=== PATIENT | male | born 1960 | race Caucasian/White ===

== ENCOUNTER 2017-11-14 11:50 | Emergency (ER) | payer MEDICARE, SELFPAY ==
[2017-11-14 11:51] VITALS: BP 162/103; PULSE 99; RESP 22; TEMP 36.8; O2SAT 97; BMI 20.2
--- NOTE | 2017-11-14 12:12 | EKG12_ITS ---
Test Reason : CHEST OTHER Blood Pressure : / mmHG Vent. Rate : 098 BPM Atrial Rate : 098 BPM P-R Int : 116 ms QRS Dur : 076 ms QT Int : 332 ms P-R-T Axes : 080 086 083 degrees QTc Int : 423 ms Somatic/motion artifact Normal sinus rhythm Confirmed by SCOTTIE CUNHA, GERARDO ([id number]), newspaper copy editor HUMBERTO CLAY ([id number]) on 11/17/2017 11:21:18 AM Referred By: Sanam Akers Confirmed By:GERARDO RUBIN MD
--- NOTE | 2017-11-14 12:13 | RAD_ITS ---
STUDY: X-RAY CHEST REASON FOR EXAM: Male, 57 years old. Dyspnea and shortness of breath. Chest pain. TECHNIQUE: Single AP portable view of the chest. COMPARISON: Comparison is made with prior study dated November 12, 2015. FINDINGS: EKG liquids are seen. Hyperinflation. Stable increased markings at the lung apices worse on the right side as well as both lower lobes suggestive of scarring. Decreased bronchovascular markings bilaterally suggestive of emphysematous change. There is no demonstrated pleural abnormality. Normal size heart. Normal mediastinum and kamilla. Normal visualized pulmonary arteries. Normal visualized aortic arch and descending thoracic aorta. Normal visualized thoracic spine. Normal visualized ribs, clavicles, and shoulders. There is no demonstrated abnormality of the visualized soft tissue structures of the upper abdomen. RAD/Chest 1 View (Portable) IMPRESSION: Hyperinflation and scarring of both lung apices and both lung bases. Electronically Signed: Jian Allen MD at 13:30 EST Tel [phone], Service support ,
[2017-11-14 12:28] VITALS: PULSE 90; RESP 18
[2017-11-14] MEDS: Ipratropium/Albuterol Sulfate 3 ML AMPUL.NEB INHALATION (12:28)
[2017-11-14] MEDS: MethylPREDNISolone 125 MG/2 ML Vial IV (12:41)
[2017-11-14] MEDS: 0.9% Normal Saline 1,000 ML 999 ML IV (12:46)
[2017-11-14 12:47] LABS: Absolute Lymphocyte Count 2.05 X10^3/ul (0.83-4.51); Absolute Neutrophil Count 3.3 X10^3/uL (2.0-7.7); Basophil# 0.03 X10^3/uL; Basophil% 0.5 % (0-1); Eosinophil# 0.36 X10^3/uL; Eosinophils% 5.7 % (0-5); Hematocrit 44.4 % (40-54); Hemoglobin 14.8 g/dl (13.0-16.5); Lymphocyte # 2.05 X10^3/ul (4.0); Lymphocyte % 32.4 % (19-41); Mean Corp Hgb Conc 33.3 g/gl (32-36); Mean Corpuscular Hgb 32.3 pg (27.0-32.0); Mean Corpuscular Volume 96.9 fL (80-94); Mean Platelet Vol. 9.4 fl (6.2-12.0); Monocyte# 0.58 X10^3/uL; Monocyte% 9.2 % (0-10); Neutrophil % 52.2 % (47-70); POSITIVE COUNT NO; POSITIVE DIFFERENTIAL NO; POSITIVE MORPHOLOGY NO; Platelet Count 251 K/mm3 (150-450); RBC Distribution Width CV 13.4 % (11.6-14.6); Red Blood Count 4.58 M/mm3 (4.6-6.2); White Blood Count 6.3 K/mm3 (4.4-11.0)
[2017-11-14] MEDS: Ondansetron 4 MG/2 ML Vial IV (12:47)
[2017-11-14 12:57] LABS: Anion Gap 7 (5-15); BUN 14 mg/dL (7-18); BUN/Creat Ratio 19.5 RATIO (10-20); Calcium,Total 9.6 mg/dL (8.5-10.1); Chloride 104 mmol/L (98-107); Creatinine, Serum 0.72 mg/dL (0.70-1.30); EST Glomerular Filtration Rate 120 mL/min (>60); Est Glom Filt Rate - Afr Amer 146 mL/min (>60); Estimated Creatinine Clearance 104.87 ml/min; Glucose 87 mg/dL (70-110); Potassium 4.5 mmol/L (3.5-5.1); Sodium Level 140 mmol/L (136-145)
[2017-11-14 13:54] VITALS: BP 132/86; PULSE 84; RESP 14; O2SAT 96
--- NOTE | 2017-11-14 14:03 | ED.VISSUMM ---
- ER Visit Summary Date of Service: 11/14/17 Chief Complaint: Chest pain and shortness of breath History of Present Illness: The patient is a [address] Vitale and Dr. Loja. He reports that it is 6 minute walk test on November 10. During this he developed left-sided chest pain is been constant since that time. It is a sharp, stabbing pain that is 10 out of 10 severity. Is worsened by movement of his torso or breathing. It is relieved by pushing on it and [place]. Reports that he has had moderate shortness of breath. He denies any fever, chills, or cough. Physical Examination: Vitals: Stable. Afebrile. General: Well-nourished and well-developed. Head: Normocephalic atraumatic. Neck: Supple, no lymphadenopathy. No JVD. Nontender. Cardiovascular: Regular rate and rhythm. No murmurs. Respiratory: No respiratory distress. Severely decreased air movement. Moderate tenderness palpation over the intercostal muscles on the left. Abdominal: Soft, nontender, nondistended, normal bowel sounds. No guarding, rebound, or peritoneal signs. Back: Nontender. Extremities: Nontender, no edema. Skin: Normal color, no rash. Neurologic: Alert and oriented ?3. Cranial nerves II through XII are intact. Normal strength and sensation. Psych: Normal affect. Test Results: EKG is sinus at 98 with artifact and nonspecific ST changes. Troponin is negative. Chem-7 is normal. CBC is marked for eosinophils of 6. Chest x-ray shows chronic changes. Emergency Department Course and Treatment: Patient was treated albuterol Atrovent aerosols. He was given a dose of morphine and Zofran IV. He is resting comfortably. Treatment Plan: It was discussed with Dr. Vitale. He will be placed on Motrin 400 mg p.o. every 6 hours and instructed to follow-up in 1 week if not improving. Return to the emergency department for any worsening symptoms. Disposition: To home in improved and stable condition. Impression: 1. Intercostal muscle strain. 2. COPD. This note was generated with bencheeation software. It may contain incorrect words, spelling, and punctuation that were not noted in review of the chart prior to signing ED Disposition - Plan for ED Patient: Chief Complaint: Chest Other Instructions: ED Strain Chest Wall Prescriptions: Ibuprofen 400 mg PO 4X/DAY #30 tablet Referrals: Jerman Vitale MD [STAFF PHYSICIAN] - 1 Week if not improving
--- NOTE | 2017-11-14 14:07 | ED.DCSUM_ITS ---
- ER Visit Summary Date of Service: 11/14/17 Chief Complaint: Chest pain and shortness of breath History of Present Illness: The patient is a [address] Vitale and Dr. Loja. He reports that it is 6 minute walk test on November 10. During this he developed left-sided chest pain is been constant since that time. It is a sharp , stabbing pain that is 10 out of 10 severity. Is worsened by movement of his torso or breathing. It is relieved by pushing on it and [place]. Reports that he has had moderate shortness of breath. He denies any fever, chills, or cough. Physical Examination: Vitals: Stable. Afebrile. General: Well-nourished and well-developed. Head: Normocephalic atraumatic. Neck: Supple, no lymphadenopathy. No JVD. Nontender. Cardiovascular: Regular rate and rhythm. No murmurs. Respiratory: No respiratory distress. Severely decreased air movement. Moderate tenderness palpation over the intercostal muscles on the left. Abdominal: Soft, nontender, nondistended, normal bowel sounds. No guarding, rebound, or peritoneal signs. Back: Nontender. Extremities: Nontender, no edema. Skin: Normal color, no rash. Neurologic: Alert and oriented ?3. Cranial nerves II through XII are intact. Normal strength and sensation. Psych: Normal affect. Test Results: EKG is sinus at 98 with artifact and nonspecific ST changes. Troponin is negative. Chem-7 is normal. CBC is marked for eosinophils of 6. Chest x-ray shows chronic changes. Emergency Department Course and Treatment: Patient was treated albuterol Atrovent aerosols. He was given a dose of morphine and Zofran IV. He is resting comfortably. Treatment Plan: It was discussed with Dr. Vitale. He will be placed on Motrin 400 mg p.o. every 6 hours and instructed to follow-up in 1 week if not improving. Return to the emergency department for any worsening symptoms. Disposition: To home in improved and stable condition. Impression: 1. Intercostal muscle strain. 2. COPD. This note was generated with OROSation software. It may contain incorrect words, spelling, and punctuation that were not noted in review of the chart prior to signing ED Disposition - Plan for ED Patient: Chief Complaint: Chest Other Instructions: ED Strain Chest Wall Prescriptions: Ibuprofen 400 mg PO 4X/DAY #30 tablet Referrals: Jreman Vitale MD [STAFF PHYSICIAN] - 1 Week if not improving
[2017-11-14 14:36] VITALS: BP 130/88; PULSE 74; RESP 22; TEMP 36.6; O2SAT 99
== END 2017-11-14 14:36 | disposition home or self-care (01) ==
LOC: ED 12:40
PROVIDERS: Emergency Provider Emergency Medicine; Family Provider Family Medicine; PCP Family Medicine
DX: S29.011A Strain of muscle and tendon of front wall of thorax, initial encounter (principal); J44.9 Chronic obstructive pulmonary disease, unspecified; Z87.442 Personal history of urinary calculi; Z87.891 Personal history of nicotine dependence; X58.XXXA Exposure to other specified factors, initial encounter; Y93.9 Activity, unspecified; Y92.9 Unspecified place or not applicable; Y99.9 Unspecified external cause status
CPT/HCPCS: 71045; 80048; 84484; 85025; 93005; 94640; 96361; 96374; 96375; 99284; J7050; J2405

== ENCOUNTER → 2017-12-01 09:53 | Outpatient (CLI) | payer MEDICARE, SELFPAY ==
--- NOTE | 2017-12-02 11:40 | PFT ---
INTRODUCTION: The patient is a 57-year-old male currently under the care of Dr. Vitale that presents for pulmonary function testing secondary to a diagnosis of COPD. Respiratory therapy reports good patient effort and reports no other concerns. Bronchodilators were used during testing. INTERPRETATION: Forced expiration spirometry demonstrates the presence of a very severe large airways obstructive ventilatory defect. There was no significant response to aerosolized bronchodilators, based upon strict ATS criteria. Spirograms are of fair quality and do not plateau indicating slow emptying of the lungs. The respiratory flow volume loop reveals decreased expiratory flow rates at all lung volumes consistent with airways obstruction. Body plethysmography was performed and reveals an elevated TLC and RV, indicative of underlying hyperinflation and air-trapping. Diffusing capacity by single breath CO is severely reduced at 31% of predicted. When compared to previous pulmonary function studies dated March 2017 there is been an 11% decrease in FEV1 along with a 22% decrease in DLCO. IMPRESSION: These pulmonary function studies demonstrate the presence of an irreversible very severe large airways obstructive ventilatory defect with associated hyperinflation, air trapping and symmetric reduction in diffusing capacity. There has been worsening in the patient's pulmonary function testing since last completed in March 2017, as noted above.
== END ==
PROVIDERS: Family Provider Family Medicine; PCP Family Medicine; Visit Provider Nurse Practitioner Acute Care
DX: J44.9 Chronic obstructive pulmonary disease, unspecified (principal); J96.11 Chronic respiratory failure with hypoxia; J96.12 Chronic respiratory failure with hypercapnia
CPT/HCPCS: 94060; 94726; 94729

== ENCOUNTER → 2018-05-16 11:36 | Outpatient (CLI) | payer MEDICARE, SELFPAY ==
[2018-05-16 15:53] LABS: PSA,Total - Annual Screen 1.24 ng/mL (0.00-4.00)
== END ==
PROVIDERS: Family Provider Family Medicine; PCP Family Medicine; Visit Provider Family Medicine
DX: Z12.5 Encounter for screening for malignant neoplasm of prostate (principal)
CPT/HCPCS: 36415; 84153; G0103

== ENCOUNTER 2018-06-16 09:30 | Outpatient (RCR) | payer MEDICARE, SELFPAY ==
--- NOTE | 2018-05-23 10:27 | PR.DATECOV_ITS ---
Dates of Coverage Times for Dates Of Coverage; All dates of coverage are for physician supervision /medical review coordinator for during the times of 08:00 AM through 4:30 PM. Effective Jun 17, 2013 our hours will be changing to 8:00 to 4:30 on Tuesday, Tuesday and Tuesday. First Date of the Month: 05/23/18 Last Date of the Month: 06/16/18
--- NOTE | 2018-05-23 10:28 | PCM.PR.HP ---
History of Present Illness Arrival date:: 05/23/18 Arrival time:: 10:28 Date of Referral:: 05/09/18 Date of Evaluation: 05/23/18 Referring Physician: DR. TATO RANDLE [facility] Medicine-Lung Transplant Primary Diagnosis: very severe COPD History of Present Illness: Patient is a 58 yr old male patient of Dr. Jerman Vitale who was referred to the [facility] in [place] for evaluation for possible lung transplant. The patient is presently int he process of all necessary testing to be placed on the list. He is coming back to pulmonary rehabilitation as part of the pre-transplant protocol. mMRC Breathless Scale: When is the patient short of breath? Y/N Grade: Description of Breathlessness: 0 I only get breathless with strenuous exercise. 1 I get short of breath when hurrying on level ground or walking up a slight hill. 2 On level ground, I walk slower than people of the same age because of breathless, or have to stop for breath when walking at my own pace. 3 I stop for breath after walking 100 yards or after a few minutes on level ground. 4 I am too breathless to leave the house or I am breathless when dressing. Respiratory Problems: Yes: Able to Speak in Full Sentences, Anxiety, Dyspnea with Activity No: Limited Range of Motion, Fatigue, Dizziness, Ankle Swelling, Dyspnea at Rest, Dyspnea Lying Down Flat Home Medications: Home Medications Ensure Complete 120 ml PO 4X/DAY #120 liquid 08/25/15 Nebulizer [Aeroneb Go Nebulizer] 1 ea MC Q4H PRN PRN #1 ea 08/25/15 ipratropium-albuterol 0.5 mg-3 mg(2.5 mg base)/3 mL nebulization soln 3 ml INHALATION Q6H PRN ml 10/27/17 Ibuprofen 400 mg PO 4X/DAY #30 tab 11/14/17 lecithin, soy 1,200 mg capsule 1,200 mg PO QDAY 02/06/18 multivitamin with iron tablet 1 tab PO QDAY 02/06/18 Allergies/Adverse Reactions: Allergies fluticasone furoate [From Breo Ellipta] Allergy (Severe, Verified 05/23/18 08:45) Other made patient breathe hard and high pulse vilanterol [From Breo Ellipta] Allergy (Severe, Verified 05/23/18 08:45) Other made patient breathe hard and high pulse codeine Allergy (Mild, Verified 05/23/18 08:45) Hives - Secretions Thick:: No Thin:: No Cough:: No Hx of Sleep Apnea: No Do you snore loudly (louder than talking or can be heard through closed doors)?: No Do you often feel tired/ fatigued/ sleepy during daytime?: Yes - if over exertion from days activity Has anyone observed you stop breathing during sleep?: No History of Hypertension (for STOP score): Yes - Was previously tested under the care of Dr. Vitale and everything was fine. STOP Results: Positive Medical Utilization Do you use a peak flow meter at home?: No Do you use a spacer device with your inhalers?: Yes Number of hospital visits in the last year?: 0 Number of emergency room visits in the last year?: 1 - pulled muscle or 04/2018 Do you see your physician on a regular schedule?: Yes How often?: Dr. Vitale 3mo, PCP Dr. Loja as needed Advanced Directives - Advanced Directives Power of Slide Machine Tender: Yes Living Will: Yes Advance Directives Information Provided: No Advance Directives on File: Yes DNR Order?:: No - MOLST See MOLST form: No Past Medical History Medical History: Past Medical History (Last Reviewed 05/23/18 @ 09:15 by Kristofer Frost MD) COPD (chronic obstructive pulmonary disease) (Chronic) J44.9 Nephrolithiasis (Chronic) Chronic respiratory failure with hypoxia and hypercapnia (Chronic) J96.11, J96.12 Malnutrition of moderate degree (Chronic) E44.0 Burning sensation of feet R20.8 COPD with acute exacerbation J44.1 Herpes zoster B02.9 Hypersomnia G47.10 Hypoxia R09.02 Left shoulder pain M25.512 Migraine G43.909 Phlebitis of superficial vein of lower extremity I80.00 Anxiety F41.9 Cachexia R64 Emphysema of lung J43.9 Lung nodule R91.1 left, 7 mm, 14 Oxygen dependent Z99.81 Stage 4 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 J44.9 shattered left wrist 1984 Surgical History: Past Surgical History (Last Reviewed 05/23/18 @ 09:15 by Kristofer Frost MD) S/P rotator cuff repair Z98.890 left Status post wrist surgery Z98.890 left Family History: Family History (Last Reviewed 05/23/18 @ 09:15 by Kristofer Frost MD) Mother Heart disease Lung disease Sister Lung disease Brother Lung disease Father CAD (coronary artery disease) - Current/ Previous Services Pulmonary Rehab:: Yes - Comments Comments: Patient completed 36 sessions of pulmonary rehabilitation back in 2016 without incident. The patient is being referred back to pulmonary rehabilitation today due to being evaluated for lung transplant at the [facility] [place]. Social History - Smoking History Smoking Status: Former smoker Years Smokin Packs Smoked per Day: 1 Hx Tobacco Use: Yes Hx Smoking Exposure: No - Alcohol Use Alcohol Usage: No - Substance Abuse Hx Substance Use: No - Occupation Occupation (List type of work in comments):: Retired - Retired/Disability - Hobbies, Recreation, Social Activities Hobbies: Exercise - exercise at home on treadmill and the [employer] [place] water aer[employer]., Other - not really much these days. Recreational Activities: I am able to engage in all my recreational activities Risk Factor Assessment - Vital Signs Temperature: 98.7 F Pulse Rate: 95 Respiratory Rate: 20 Pulse Ox: 96 Nailbeds:: pink - Diabetes Nutrition Referral for Diabetes: No - Obesity Height: 5 ft 11 in Weight:: 155 lb 12.8 oz Weight in Pounds: 155.8 lbs Weight Source: Standing Scale Body Mass Index (BMI): 21.7 Nutritional Referral for Obesity: No - Physical Activity Physical Inactivity: Reg Exercise 30 min/day - Risk Stratification Risk Guidelines: Lowest Risk: Risk Factor for Smoking, Risk Factor for Dyslipidemia, Risk Factor for Diabetes, Risk Factor for Obesity, Risk Factor for Hypertension, Risk Factor for Sedentary Lifestyle, Risk Factor for Depression - For Smoking Smoking Risk Guidelines: Smoking Low Risk: None or quit greater than 6 months ago. Smoking Moderate Risk: Smoker or quit 6 months or less ago. Smoking High Risk: Smoker - For Dyslipidemia Dyslipidemia Risk Guidelines: Low Risk: Moderate Risk: High Risk: 15-25% fat 25.1-29% fat >/= 30% fat. <7% sat fat 7-9% sat fat >9% sat fat. <150 mg chol 150-299 mg chol >/= 300 mg chol. LDL <100 LDL 100-129 LDL >/= 130. Chol/HDL ratio <5.0 Chol/HDL ratio 5.0-6.0 Chol/HDL ratio >6.0. Triglycerides <100 Triglycerides 100-149 Triglycerides >/= 150 - For Diabetes Mellitus Diabetes Risk Guidelines: Diabetes Low Risk: HgA1c <6.5% and/or FBG <120. Diabetes Moderate Risk: HgA1c 6.6-7.9% and/or FBG 120-180. Diabetes High Risk: HgA1c >/= 8% and/or FBG >180 - For Obesity/Overweight Obesity/Overweight Risk Guidelines: Obesity Low Risk: BMI <25.0. Obesity Moderate Risk: BMI 25-29.9. Obesity High Risk: BMI >/= 30.0 - For Hypertension Hypertension Risk Guidelines: Hypertension Low Risk: Systolic <120 and Diastolic <80. Hypertension Moderate Risk: Systolic 120-139 and Diastolic 80-89. Hypertension High Risk: Systolic >/= 140 and Diastolic >/= 90 - For Sedentary Lifestyle Sedentary Lifestyle Risk Guidelines: Sedentary Lifestyle Low Risk: >/= 1,500 kcal/week. Sedentary Lifestyle Moderate Risk: 700-1,499 kcal/week. Sedentary Lifestyle High Risk: < 700 kcal/week - For Depression Depression Risk Guidelines: Depression Low Risk: Not clinically depressed. Depression Moderate Risk: Mildly depressed. Depression High Risk: Clinically depressed Motivation - Motivation to Participate On a scale of 1 to 10, how prepared are you to commit to attending program?: 10 What do you see as barriers to successfully being able to complete the program?: no barrier What do you see as the benefits of succesfully completing the program? In other words, what do you hope to get out of participating in the program?: move myself forward, improve myself, and get the lung transplant done Are there issues you are dealing with that will interfere with completing the program?: none Do you have a spouse or signficant other, family or friends who will help support you to complete the program?: yes
--- NOTE | 2018-05-23 10:32 | PR.HP_ITS ---
History of Present Illness Arrival date:: 05/23/18 Arrival time:: 10:28 Date of Referral:: 05/09/18 Date of Evaluation: 05/23/18 Referring Physician: DR. TATO RANDLE [facility] -Lung Transplant Primary Diagnosis: very severe COPD History of Present Illness: Patient is a 58 yr old male patient of Dr. Jerman Vitale who was referred to the [facility] in [place] for evaluation for possible lung transplant. The patient is presently int he process of all necessary testing to be placed on the list. He is coming back to pulmonary rehabilitation as part of the pre-transplant protocol. mMRC Breathless Scale: When is the patient short of breath? Y/N Grade: Description of Breathlessness: 0 I only get breathless with strenuous exercise. 1 I get short of breath when hurrying on level ground or walking up a slight hill. 2 On level ground, I walk slower than people of the same age because of breathless, or have to stop for breath when walking at my own pace. 3 I stop for breath after walking 100 yards or after a few minutes on level ground. 4 I am too breathless to leave the house or I am breathless when dressing. Respiratory Problems: Yes: Able to Speak in Full Sentences, Anxiety, Dyspnea with Activity No: Limited Range of Motion, Fatigue, Dizziness, Ankle Swelling, Dyspnea at Rest, Dyspnea Lying Down Flat Home Medications: Home Medications Ensure Complete 120 ml PO 4X/DAY #120 liquid 08/25/15 Nebulizer [Aeroneb Go Nebulizer] 1 ea MC Q4H PRN PRN #1 ea 08/25/15 ipratropium-albuterol 0.5 mg-3 mg(2.5 mg base)/3 mL nebulization soln 3 ml INHALATION Q6H PRN ml 10/27/17 Ibuprofen 400 mg PO 4X/DAY #30 tab 11/14/17 lecithin, soy 1,200 mg capsule 1,200 mg PO QDAY 02/06/18 multivitamin with iron tablet 1 tab PO QDAY 02/06/18 Allergies/Adverse Reactions: Allergies fluticasone furoate [From Breo Ellipta] Allergy (Severe, Verified 05/23/18 08:45 ) Other made patient breathe hard and high pulse vilanterol [From Breo Ellipta] Allergy (Severe, Verified 05/23/18 08:45) Other made patient breathe hard and high pulse codeine Allergy (Mild, Verified 05/23/18 08:45) Hives - Secretions Thick:: No Thin:: No Cough:: No Hx of Sleep Apnea: No Do you snore loudly (louder than talking or can be heard through closed doors)? : No Do you often feel tired/ fatigued/ sleepy during daytime?: Yes - if over exertion from days activity Has anyone observed you stop breathing during sleep?: No History of Hypertension (for STOP score): Yes - Was previously tested under the care of Dr. Vitale and everything was fine. STOP Results: Positive Medical Utilization Do you use a peak flow meter at home?: No Do you use a spacer device with your inhalers?: Yes Number of hospital visits in the last year?: 0 Number of emergency room visits in the last year?: 1 - pulled muscle or 2017 Do you see your physician on a regular schedule?: Yes How often?: Dr. Vitale 3mo, PCP Dr. Loja as needed Advanced Directives - Advanced Directives Power of Pigment Grinder: Yes Living Will: Yes Advance Directives Information Provided: No Advance Directives on File: Yes DNR Order?:: No - MOLST See MOLST form: No Past Medical History Medical History: Past Medical History (Last Reviewed 05/23/18 @ 09:15 by Kristofer Frost MD) COPD (chronic obstructive pulmonary disease) (Chronic) J44.9 Nephrolithiasis (Chronic) Chronic respiratory failure with hypoxia and hypercapnia (Chronic) J96.11, J96.12 Malnutrition of moderate degree (Chronic) E44.0 Burning sensation of feet R20.8 COPD with acute exacerbation J44.1 Herpes zoster B02.9 Hypersomnia G47.10 Hypoxia R09.02 Left shoulder pain M25.512 Migraine G43.909 Phlebitis of superficial vein of lower extremity I80.00 Anxiety F41.9 Cachexia R64 Emphysema of lung J43.9 Lung nodule R91.1 left, 7 mm, 14 Oxygen dependent Z99.81 Stage 4 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 J44.9 shattered left wrist 1984 Surgical History: Past Surgical History (Last Reviewed 05/23/18 @ 09:15 by Kristofer Frost MD) S/P rotator cuff repair Z98.890 left Status post wrist surgery Z98.890 left Family History: Family History (Last Reviewed 05/23/18 @ 09:15 by Kristofer Frost MD) Mother Heart disease Lung disease Sister Lung disease Brother Lung disease Father CAD (coronary artery disease) - Current/ Previous Services Pulmonary Rehab:: Yes - Comments Comments: Patient completed 36 sessions of pulmonary rehabilitation back in 2016 without incident. The patient is being referred back to pulmonary rehabilitation today due to being evaluated for lung transplant at the [facility] [place]. Social History - Smoking History Smoking Status: Former smoker Years Smokin Packs Smoked per Day: 1 Hx Tobacco Use: Yes Hx Smoking Exposure: No - Alcohol Use Alcohol Usage: No - Substance Abuse Hx Substance Use: No - Occupation Occupation (List type of work in comments):: Retired - Retired/Disability - Hobbies, Recreation, Social Activities Hobbies: Exercise - exercise at home on treadmill and the [employer] [place] water aer[employer]ics., Other - not really much these days. Recreational Activities: I am able to engage in all my recreational activities Risk Factor Assessment - Vital Signs Temperature: 98.7 F Pulse Rate: 95 Respiratory Rate: 20 Pulse Ox: 96 Nailbeds:: pink - Diabetes Nutrition Referral for Diabetes: No - Obesity Height: 5 ft 11 in Weight:: 155 lb 12.8 oz Weight in Pounds: 155.8 lbs Weight Source: Standing Scale Body Mass Index (BMI): 21.7 Nutritional Referral for Obesity: No - Physical Activity Physical Inactivity: Reg Exercise 30 min/day - Risk Stratification Risk Guidelines: Lowest Risk: Risk Factor for Smoking, Risk Factor for Dyslipidemia, Risk Factor for Diabetes, Risk Factor for Obesity, Risk Factor for Hypertension, Risk Factor for Sedentary Lifestyle, Risk Factor for Depression - For Smoking Smoking Risk Guidelines: Smoking Low Risk: None or quit greater than 6 months ago. Smoking Moderate Risk: Smoker or quit 6 months or less ago. Smoking High Risk: Smoker - For Dyslipidemia Dyslipidemia Risk Guidelines: Low Risk: Moderate Risk: High Risk: 15-25% fat 25.1-29% fat >/= 30% fat. <7% sat fat 7-9% sat fat >9% sat fat. <150 mg chol 150-299 mg chol >/= 300 mg chol. LDL <100 LDL 100-129 LDL >/= 130. Chol/HDL ratio <5.0 Chol/HDL ratio 5.0-6.0 Chol/HDL ratio >6.0. Triglycerides <100 Triglycerides 100-149 Triglycerides >/= 150 - For Diabetes Mellitus Diabetes Risk Guidelines: Diabetes Low Risk: HgA1c <6.5% and/or FBG <120. Diabetes Moderate Risk: HgA1c 6.6-7.9% and/or FBG 120-180. Diabetes High Risk: HgA1c >/= 8% and/or FBG >180 - For Obesity/Overweight Obesity/Overweight Risk Guidelines: Obesity Low Risk: BMI <25.0. Obesity Moderate Risk: BMI 25-29.9. Obesity High Risk: BMI >/= 30.0 - For Hypertension Hypertension Risk Guidelines: Hypertension Low Risk: Systolic <120 and Diastolic <80. Hypertension Moderate Risk: Systolic 120-139 and Diastolic 80-89. Hypertension High Risk: Systolic >/= 140 and Diastolic >/= 90 - For Sedentary Lifestyle Sedentary Lifestyle Risk Guidelines: Sedentary Lifestyle Low Risk: >/= 1 ,500 kcal/week. Sedentary Lifestyle Moderate Risk: 700-1,499 kcal/week. Sedentary Lifestyle High Risk: < 700 kcal/week - For Depression Depression Risk Guidelines: Depression Low Risk: Not clinically depressed. Depression Moderate Risk: Mildly depressed. Depression High Risk: Clinically depressed Motivation - Motivation to Participate On a scale of 1 to 10, how prepared are you to commit to attending program?: 10 What do you see as barriers to successfully being able to complete the program? : no barrier What do you see as the benefits of succesfully completing the program? In other words, what do you hope to get out of participating in the program?: move myself forward, improve myself, and get the lung transplant done Are there issues you are dealing with that will interfere with completing the program?: none Do you have a spouse or signficant other, family or friends who will help support you to complete the program?: yes
--- NOTE | 2018-05-23 10:35 | PR.ITP_ITS ---
General Information - General Information Admitting Diagnosis: Very Severe COPD Stage IV Gold Classification:: GOLD 4: Very Severe Oxygen: Oxygen 2 liters 3 to 4 liters when walking/exertion - PFT FEV1:: 0.72 FVC:: 2.70 FEV1/FVC%:: 27 - Education/Goals Barriers to Learning: Hearing Impairment, Vision Impairment Individual Counseling: Initial Assessment: Dyspnea control techniques at rest, activity, and ADLs, ADL management and pacing, Nutrition & weight management - malnutrition Patient Goals: Breathe better: Initial Assessment, Increase endurance/stamina: Initial Assessment, Return to recreation/hobby: Initial Assessment, Control panic/anxiety: Initial Assessment, Improve diet and nutrition: Initial Assessment, Symptom management: Initial Assessment, Improve weight: Initial Assessment Exercise - Initial Assessment - Visit Date of Eval: 05/23/18 - Established ITP; starting - Problem/Goals Problems: Knowledge deficit exercise guidelines, Knowledge deficit exercise safety - Exercise Prescription Mode:: Treadmill, Rower, Airdyne Frequency (x/week): 3 Duration:: 30 MET LEVEL:: 2.5 HR (bpm):: 123 - 115-123 Exercise Progression: as tolerated per protocol. - Plan Plan and Plan to Review:: Benefits of exercise, Core components of exercise, How to measure dyspnea level, How to monitor dyspnea level, Exercise intensity, Exercise safety guideline, Home exercise guidelines, Ozzy: 3-/- Disease Management - Initial - Problems/Goals-Hypoxemia Hypoxemia Problems:: Hypoxemia Hypoxemia Goals:: Hypoxemia managed, Port system, Using O2 as Rx's safely - Problems/Goals-Medications Medication Goals: Correct technique/timing & care of MDI, DPI, nebulizer, and spacer. - Problems/Goals-Bronchial Hygiene Bronchial Hygiene Goals:: Pt demonstrates effective cough, effective secretion clearance., Pt describes signs and symptoms of infection. - Initial Assessment SpO2:: 98 FiO2:: 0 Port O2:: 2 Does pt report taking home meds as prescribed?: Yes Medications: Yes MDI, Yes DPI, Yes NEB, Yes Spacer Patient Reports:: No cough - Plans Hypoxemia Plan:: Monitor SpO2 rest & with exercise, Train appropriate O2 use at rest, Train appropriate O2 use with exercise, Train O2 safety & systems Reviewed prescribed medications:: Purpose, Schedule, Side effects, Importance of compliance Instruct correct technique/timing & care:: MDI, DPI, Nebulizer, Return demo use of inhaler Bronchial Hygiene Plan: Controlled cough, Vibratory PEP device, Hydration, Hand hygiene, Evaluate sputum, When to call MD, Signs/symptoms to report:, Influenza/ Pneumovax vaccines Psychosocial - Initial Assess - Problems/Goals Problems: Impaired Q.O.L. Psychosocial Goals: Improved psychosocial coping skills., Verbalizes coping strategies., Improved Q.O.L. - Psychosocial Test Depression:: Impaired QOL - Plan Instructions given regarding:: Benefits of exercise, Relaxation techniques, Training in coping strategies Tobacco - Initial Assessment - Program Goals Tobacco Program Goals: Complete smoking cessation. Attend education classes. Improve Knowledge Test score - Stage of Change Stages of Change:: Action - Learning Barriers Learning Barriers: Ready to Learn - Family Support Do you have family support?: Yes - Tobacco Use Tobacco Use: Non-smoker How long ago did you quit using tobacco products?: Greater than or equal to 6 months ago Do you use smokeless tobacco?: No - Intervention Smoking Cessation Referral:: No Individual Education/Counseling:: No Education Schedule Given:: Yes - Education Gave Education Materials For:: Pulmonary Disease, Risk Factors, Breathing Techniques, Medical Compliance, Pulmonary A&P, Exacerbation Signs & Symptoms, Stress & Relaxation Nutrition/Wt Mgmt - Initial - Problems/Goals Problems: Underweight Goals: BMI 21-25 - Weight Management Knowledge Deficit Management of:: Underweight, Lack of vitamin D/Ca++ supplement Admit Height:: 5 ft 11 in Admit Weight:: 155 lb 12.8 oz Admit BMI:: 21.7 - Diabetes Diabetes:: No Insulin: No Do you monitor your blood sugar at home?: No - Intervention Referral to dietitian:: No Referral to Diabetic Clinic:: No Will attend diet classes:: Yes - Plan Nutrition Plan: Yes Weight control education class: Patient Health Questionnaire Initial Assessment 1. Little interest or pleasure in doing things: More than half the days 2. Feeling down, depressed, or hopeless: Not at all 3. Trouble falling or staying asleep, or sleeping too much: Not at all 4. Feeling tired or having little energy: More than half the days 5. Poor appetite or overeating: Not at all 6. Feeling bad about yourself -- or that you are a failure or have let yourself or your family down: Not at all 7. Trouble concentrating on things, such as reading the newspaper or watching television: Not at all 8. Moving or speaking so slowly that other people could have noticed. Or the opposite - being so fidgety or restless that you have been moving around a lot more than usual: Not at all 9. Thoughts that you would be better off , or of hurting yourself in some way: Not at all How difficult have these problems made it for you to do your work, take care of things at home, or get along with other people?: Not difficult at all Total Score: 4 COPD Knowledge Test Initial COPD is a lung disease that:: Makes it hard to breathe & gets worse over time In the [place] the term COPD describes 2 main lung conditions:: Emphysema & chronic bronchitis The most common lung irritant that causes COPD is:: Cigarette smoke Common signs and symptoms of COPD include:: An ongoing cough/cough that produces a large amount of mucus, & SOB If you have COPD, what steps can you take?: All of the above Swelling of the ankles is common in COPD:: False Fatigue [tiredness] is common in COPD:: True Wheezing is common in COPD:: True Crushing chest pain is common in COPD:: False Rapid weight loss is common in COPD:: True Breathlessness is a normal response to exercise: False Exercise should be avoided if it makes you short of breath: False All bronchodilators act within 10 minutes: False A spacer device increases the medication to the lungs: True Annual flu vaccine is recommended for pts w/lung disease: True COPD Knowledge Test Total Score:: 13 COPD Assessment Test [CAT] - Questions Never cough = 0, Cough all the time = 5: 2 No phlegm = 0, Chest full of phlegm = 5: 2 No chest tightness = 0, Chest very tight = 5: 2 No breathless w/exertion = 0, Very breathless w/exertion = 5: 5 No limitations w/activity = 0, Very limited w/activity = 5: 3 Confident leaving home = 0, Not at all confident = 5: 2 Sleep soundly = 0, Don't sleep soundly = 5: 2 Lots of energy = 0, No energy at all = 5: 3 Total CAT score:: 21 Self-Efficacy Initial Assessment We would like to know how confident you are in doing certain activities. Please select your confidence level for:: Select your confidence level for the following using the scale 1-10 where 1 is not at all confident and 10 is totally confident. Your score is the average of all 6 responses. Fatigue: How confident are you that you can keep the fatigue caused by your disease from interfering with the things you want to do? Select Number: 5 Physical Discomfort or Pain: How confident are you that you can keep the physical discomfort or pain of your disease from interfering with the things you want to do? Select Number: 6 Emotional Distress: How confident are you that you can keep the emotional distress caused by your disease from interfering with the things you want to do? Select Number: 5 Other Symptoms or Health Problems: How confident are you that you can keep other symptoms or health problems from interfering with the things you want to do? Select Number: 7 Different Tasks and Activities: How confident are you that you can do the different tasks and activities needed to manage your health condition so as to reduce your need to see a doctor? Select Number: 5 Medication: How confident are you that you can do things other than just taking medication to reduce how much your illness affects your everyday life? Select Number: 7 Total Score:: 5 Nutrition Survey - Nutrition Survey Instructions Scoring Instructions: Scoring is as follows: Yes = 1 points. No = 0 point. Patient score that is >/=12 is considered to be at potential nutritional risk and could benefit from a referral to a registered dietitian. - Nutrition Survey Initial Have you lost >10 lbs over the past 2 months without trying?: No Are you following a special diet at home for diabetes, low fat, or low salt?: No Are you interested in meeting with a dietitian for help understanding your diet? : No Do you eat less than 3 meals a day?: No Do you eat fatty meats (ocampo, sausage, ribs, etc), fried foods, desserts, large amounts of salad dressings, margarine, butter, or cheese most days?: No Do you have food allergies? [Enter types in comment field]: No Do you eat in restaurants more than 3 times a week?: No Do you season food with salt, seasoning salt, or garlic salt?: Yes Do you used canned, boxed, frozen meals, or soups, seasoning packets?: Yes Total Score:: 2
[2018-05-23 10:51] VITALS: PULSE 95; RESP 20; TEMP 37.1; O2SAT 96; BMI 21.7
[2018-05-23 10:59] VITALS: O2SAT 98; BMI 21.7
--- NOTE | 2018-06-09 08:30 | PR.DATECOV_ITS ---
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 Effective Jun 17, 2013 our hours will be changing to 8:00 to 4:30 on Tuesday, Tuesday and Tuesday. First Date of the Month: 06/17/18 Last Date of the Month: 07/16/18
--- NOTE | 2018-06-09 08:30 | PCM.PR.TP ---
Exercise - 30-Day Assessment - Exercise Prescription Mode:: Treadmill, Airdyne, NuStep, Arm Ergometer Frequency (x/week): 3 Duration:: 35 Aerobic Exercise [30-60 min 3-7x/week]:: Progressing Target heart rate: 115-123 Ozzy-13 MET Level:: 2.5 - Home Exercise Home Exercise:: Yes Frequency:: daily Time (minutes):: 30 - walking Disease Management - 30-Day - Hypoxemia Reassessment: Demonstrates knowledge of O2 Rx at rest, Demonstrates knowledge of O2 Rx with exercise, Using O2 as prescribed, Has home O2 as prescribed, Uses port O2 as prescribed - Medications Medication list reviewed:: Yes Taking medications 100% of the time:: Met - Bronchial Hygiene Bronchial Hygiene Plan: Yes Pt demo correct for device - returned demnostration acapella, Yes Pt demo correct for evalute sputum Psychosocial - 30-Day - Assessment Reassessment: Management of stress & depression, Practicing interventions, Demonstrate coping strategies Tobacco - 30-Day Assessment - Program Goals Tobacco Program Goals: Complete smoking cessation. Attend education classes. Improve Knowledge Test score - Stage of Change Stages of Change:: Action - Learning Barriers Learning Barriers: Participates in education - Family Support Do you have family support?: Yes - Tobacco Use Tobacco Use: Non-smoker - Intervention Smoking Cessation Referral:: No Individual Education/Counseling:: No Education Schedule Given:: Yes - Education Gave Education Materials For:: Pulmonary Disease, Risk Factors, Breathing Techniques, Medical Compliance, Pulmonary A&P, Exacerbation Signs & Symptoms, Stress & Relaxation Nutrition/Wt Mgmt - 30-Day - Weight Management Weight:: 151 lb 8 oz Patient Health Questionnaire 30-Day Re-eval Assessment 1. Little interest or pleasure in doing things: Not at all 2. Feeling down, depressed, or hopeless: Several days 3. Trouble falling or staying asleep, or sleeping too much: Several days 4. Feeling tired or having little energy: Several days 5. Poor appetite or overeating: Not at all 6. Feeling bad about yourself -- or that you are a failure or have let yourself or your family down: Not at all 7. Trouble concentrating on things, such as reading the newspaper or watching television: Not at all 8. Moving or speaking so slowly that other people could have noticed. Or the opposite - being so fidgety or restless that you have been moving around a lot more than usual: Not at all 9. Thoughts that you would be better off , or of hurting yourself in some way: Not at all How difficult have these problems made it for you to do your work, take care of things at home, or get along with other people?: Not difficult at all Total Score: 3 COPD Assessment Test [CAT] - Questions Never cough = 0, Cough all the time = 5: 3 No phlegm = 0, Chest full of phlegm = 5: 4 No chest tightness = 0, Chest very tight = 5: 4 No breathless w/exertion = 0, Very breathless w/exertion = 5: 3 No limitations w/activity = 0, Very limited w/activity = 5: 3 Confident leaving home = 0, Not at all confident = 5: 2 Sleep soundly = 0, Don't sleep soundly = 5: 2 Lots of energy = 0, No energy at all = 5: 2 Total CAT score:: 23 Self-Efficacy 30-Day Re-eval Assessment We would like to know how confident you are in doing certain activities. Please select your confidence level for:: Select your confidence level for the following using the scale 1-10 where 1 is not at all confident and 10 is totally confident. Your score is the average of all 6 responses. Fatigue: How confident are you that you can keep the fatigue caused by your disease from interfering with the things you want to do? Select Number: 8 Physical Discomfort or Pain: How confident are you that you can keep the physical discomfort or pain of your disease from interfering with the things you want to do? Select Number: 8 Emotional Distress: How confident are you that you can keep the emotional distress caused by your disease from interfering with the things you want to do? Select Number: 8 Other Symptoms or Health Problems: How confident are you that you can keep other symptoms or health problems from interfering with the things you want to do? Select Number: 8 Different Tasks and Activities: How confident are you that you can do the different tasks and activities needed to manage your health condition so as to reduce your need to see a doctor? Select Number: 8 Medication: How confident are you that you can do things other than just taking medication to reduce how much your illness affects your everyday life? Select Number: 8 Total Score:: 8
== END 2018-06-16 23:59 ==
LOC: PR 09:30
PROVIDERS: Family Provider Family Medicine; PCP Family Medicine
DX: J44.9 Chronic obstructive pulmonary disease, unspecified (principal)
CPT/HCPCS: 97150; G0424

== ENCOUNTER 2018-06-21 06:23 | Day surgery (SDC) | payer MEDICARE, SELFPAY ==
--- NOTE | 2018-06-21 | COLBX_PTH ---
PATIENT: NICK HERNÁNDEZ LOC: EN U#:[id number] AGE/SX: 58/M ROOM: RE06/21/[address]: Dr. Kristofer Frost MD : [id number] BED: DIS: 06/21/2018 SPEC #: [id number] RECD: 06/21/18 13:05 STATUS: VERONICA REJono #: [id number] JALEEL: 06/21/18 00:[address]: Kristofer Frost DEPT: SURGICAL PATHOLOGY RECD BY: Javi Rogers ENTERED: 06/21/18 13:05 SP TYPE: COLON BX OTHR DR: Dr. Mary Loja DO Tissues: Transverse colon Procedures: Surgery Specimen Level IV HEADER OPERATION: Colonoscopy (MAC) PRE-OP DIAGNOSIS: Screening TISSUE SUBMITTED: Transverse colon polyps MICROSCOPIC DIAGNOSIS Transverse colon polyps, biopsy: Fragments of tubular adenoma. Fragments of fecal material. SJ:sammi 06/22/18 MICROSCOPIC DESCRIPTION Slides are reviewed. GROSS DESCRIPTION Received in fixative is one container labeled with the patient's name and designated transverse colon polyps. The specimen consists of two pieces of meraz-pink soft tissue that in aggregate measure 0.7 x 0.5 x 0.2 cm. The specimen is totally submitted in one cassette. / SJ:sammi 06/21/18 TC:1 CPT: 22019
[2018-06-21 06:44] VITALS: BP 122/85; PULSE 89; RESP 16; TEMP 36.3; O2SAT 99; BMI 20.8
--- NOTE | 2018-06-21 08:10 | PCM.OPRPT ---
Problem List (1) Screen for colon cancer Status: Acute Report of Operation Date of Procedure: 06/21/18 Pre-Operative Diagnosis: Z12.11 screening colon cancer Post-Operative Diagnosis: Same with snare polypectomy Surgery/Procedure Performed:: 35914 colonoscopy with snare polypectomy Type of Anesthesia:: MAC Description of Procedure: Patient was brought into the endoscopy suite. Placed in the left lateral decubitus position. He was given graded anesthesia. Colonoscope was inserted into the rectum. It was directed through the sigmoid colon, descending colon, transverse colon, ascending colon, to the cecum without difficulty. Operative findings: 1. Cecum: Normal appearance no mass lesions normal ileocecal valve. 2. Ascending colon: Normal appearance no mass lesions. 3. Transverse colon: Normal appearance. 2 polyps were identified. One was removed with biopsy forceps completely. The other was removed removed with snare cautery technique. Both of them were brought back to the channel of the scope. 4. Descending colon: Small polyp was identified was removed with snare cautery technique and brought back to the channel the scope. 5. Sigmoid colon: Normal appearance minimal diverticular disease seen. 6. Rectum: Normal appearance no mass lesions internal hemorrhoids were identified. Scope was withdrawn digital rectal exam showed no masses within the anus and a normal prostate smooth and small. Patient will need to have another colonoscopy in 3 years. - Admit VTE Documentation VTE Present on Admission: No VTE Mechan Device Prophylaxis: None VTE Pharm Prophylaxis ordered?: No Reason prophylaxis not ordered:: Treatment Not Indicated
[2018-06-21 08:12] VITALS: BP 122/85; BP 124/90; PULSE 85; RESP 16; TEMP 36.9; O2SAT 95
[2018-06-21 08:15] VITALS: BP 121/80; BP 122/85; PULSE 85; RESP 16; O2SAT 95
[2018-06-21 08:20] VITALS: BP 119/85; BP 122/85; PULSE 86; RESP 16; O2SAT 95
[2018-06-21 08:25] VITALS: BP 121/80; BP 122/85; PULSE 86; RESP 18; TEMP 36.7; O2SAT 96
[2018-06-21 08:44] VITALS: BP 122/85
== END 2018-06-21 08:45 | disposition home or self-care (01) ==
LOC: EN 06:24 → AC 06:25
PROVIDERS: Family Provider Family Medicine; PCP Family Medicine; Visit Provider Surgery
PROC: 0DJD8ZZ Inspection of Lower Intestinal Tract, Via Natural or Artificial Opening Endoscopic (ICD-10-PCS; CPT 45378; principal; 2018-06-21 07:40)
DX: Z12.11 Encounter for screening for malignant neoplasm of colon (principal); D12.3 Benign neoplasm of transverse colon; K64.8 Other hemorrhoids; J96.11 Chronic respiratory failure with hypoxia; J96.12 Chronic respiratory failure with hypercapnia; J44.9 Chronic obstructive pulmonary disease, unspecified; F41.9 Anxiety disorder, unspecified; E44.0 Moderate protein-calorie malnutrition; Z68.21 Body mass index [BMI] 21.0-21.9, adult; Z99.81 Dependence on supplemental oxygen; Z87.442 Personal history of urinary calculi; Z87.891 Personal history of nicotine dependence; Z79.51 Long term (current) use of inhaled steroids; Z79.899 Other long term (current) drug therapy
CPT/HCPCS: 45380; 88305; J7120

== ENCOUNTER → 2018-06-23 10:17 | Outpatient (CLI) | payer MEDICARE, SELFPAY | PROVIDERS: Family Provider Family Medicine; PCP Family Medicine; Visit Provider Family Medicine | DX: R00.0 Tachycardia, unspecified (principal); J44.9 Chronic obstructive pulmonary disease, unspecified | CPT/HCPCS: 93225; 93226; 97150; G0424 ==

== ENCOUNTER 2018-07-07 09:30 | Outpatient (RCR) | payer MEDICARE, SELFPAY ==
[2018-06-17 00:19] VITALS: PULSE 95; RESP 20; TEMP 37.1; O2SAT 96
--- NOTE | 2018-07-11 12:31 | PCM.PR.DAT ---
Dates of Coverage Times for Dates Of Coverage; All dates of coverage are for physician supervision/medical review coordinator for during the times of 08:00 AM through 4:30 PM. Effective Jun 17, 2013 our hours will be changing to 8:00 to 4:30 on Tuesday, Tuesday and Tuesday. First Date of the Month: 07/17/18 Last Date of the Month: 08/16/18
--- NOTE | 2018-07-11 12:36 | PR.ITP_ITS ---
Exercise - 60-Day Assessment - Current Level Mode:: Treadmill, Airdyne, NuStep Frequency (x/week): 3 Duration:: 30 Aerobic Exercise [30-60 min 3-7x/week]:: Progressing Target heart rate: 115-123 Max HR 126 Ozzy MET Level:: 2.5 - Patient injured his back and was seen in ER from home Disease Management - 60-Day - Hypoxemia Reassessment: Demonstrates knowledge of O2 Rx at rest, Demonstrates knowledge of O2 Rx with exercise, Using O2 as prescribed, Has home O2 as prescribed, Uses port O2 as prescribed - Medications Medication list reviewed:: Yes Taking medications 100% of the time:: Met Medication reassessment: Yes Pt demonstrates correct technique timing for MDI, Yes Pt demonstrates correct technique timing for DPI, Yes Pt demonstrates correct technique timing for NEB, Yes Pt demonstrates correct technique timing for spacer - patient faithfully uses MDI and spacer - Bronchial Hygiene Bronchial Hygiene Plan: Yes Pt demonstrates correctly for effective cough - dem onstrates controlled cough technique, Yes Pt demo correct for device - uses PEP and SMI therepay at home, Yes Pt demo correct for improved hydration, Yes Pt demo correct for hand hygiene, Yes Pt demo correct for evalute sputum, Yes Pt demo correct for verbalize when to call MD - knows signs and symptoms of exacerbations Psychosocial - 60-Day - Assessment Depression reassess: Management of stress: Progressing, Management of depression: Progressing, Practicing interventions: Progressing Tobacco - 60-Day Assessment - Program Goals Tobacco Program Goals: Complete smoking cessation. Attend education classes. Improve Knowledge Test score - Stage of Change Stages of Change:: Action - Learning Barriers Learning Barriers: Participates in education, Change in behavior - Family Support Do you have family support?: Yes - Tobacco Use Tobacco Use: Non-smoker Do you use smokeless tobacco?: No - Intervention Smoking Cessation Referral:: No Individual Education/Counseling:: No Education Schedule Given:: Yes - Education Gave Education Materials For:: Pulmonary Disease, Risk Factors, Breathing Techniques, Medical Compliance, Pulmonary A&P, Exacerbation Signs & Symptoms, Stress & Relaxation Nutrition/Wt Mgmt - 60-Day - Weight Management Weight:: 154 lb 8 oz Weight Goals Progress:: Progressing Patient Health Questionnaire 60-Day Re-eval Assessment 1. Little interest or pleasure in doing things: Not at all 2. Feeling down, depressed, or hopeless: Not at all 3. Trouble falling or staying asleep, or sleeping too much: Not at all 4. Feeling tired or having little energy: Not at all 5. Poor appetite or overeating: Not at all 6. Feeling bad about yourself -- or that you are a failure or have let yourself or your family down: Not at all 7. Trouble concentrating on things, such as reading the newspaper or watching television: Not at all 8. Moving or speaking so slowly that other people could have noticed. Or the opposite - being so fidgety or restless that you have been moving around a lot more than usual: Not at all 9. Thoughts that you would be better off , or of hurting yourself in some way: Not at all Total Score: 0 COPD Assessment Test [CAT] - Questions Never cough = 0, Cough all the time = 5: 2 No phlegm = 0, Chest full of phlegm = 5: 1 No chest tightness = 0, Chest very tight = 5: 2 No breathless w/exertion = 0, Very breathless w/exertion = 5: 3 No limitations w/activity = 0, Very limited w/activity = 5: 2 Confident leaving home = 0, Not at all confident = 5: 1 Sleep soundly = 0, Don't sleep soundly = 5: 2 Lots of energy = 0, No energy at all = 5: 1 Total CAT score:: 14 Self-Efficacy 60-Day Re-eval Assessment We would like to know how confident you are in doing certain activities. Please select your confidence level for:: Select your confidence level for the following using the scale 1-10 where 1 is not at all confident and 10 is totally confident. Your score is the average of all 6 responses. Fatigue: How confident are you that you can keep the fatigue caused by your disease from interfering with the things you want to do? Select Number: 10 Physical Discomfort or Pain: How confident are you that you can keep the physical discomfort or pain of your disease from interfering with the things you want to do? Select Number: 10 Emotional Distress: How confident are you that you can keep the emotional distress caused by your disease from interfering with the things you want to do? Select Number: 10 Other Symptoms or Health Problems: How confident are you that you can keep other symptoms or health problems from interfering with the things you want to do? Select Number: 10 Different Tasks and Activities: How confident are you that you can do the different tasks and activities needed to manage your health condition so as to reduce your need to see a doctor? Select Number: 10 Medication: How confident are you that you can do things other than just taking medication to reduce how much your illness affects your everyday life? Select Number: 10 Total Score:: 10
== END 2018-07-16 23:59 | disposition home or self-care (01) ==
LOC: PR 09:30
PROVIDERS: Family Provider Family Medicine; PCP Family Medicine
DX: J44.9 Chronic obstructive pulmonary disease, unspecified (principal)
CPT/HCPCS: 97150; G0424

== ENCOUNTER 2018-07-09 14:49 | Emergency (ER) | payer MEDICARE, SELFPAY ==
[2018-07-09 14:49] VITALS: BP 155/102; PULSE 120; RESP 26; TEMP 36.6; O2SAT 99; BMI 21.6
[2018-07-09 14:57] VITALS: BP 145/100; PULSE 115; RESP 14; O2SAT 95
--- NOTE | 2018-07-09 15:06 | ED.DCSUM_ITS ---
- ER Visit Summary Date of Service: 07/09/18 Chief Complaint: Back pain History of Present Illness: The patient is a 58 M presenting with back pain. Patient states that he was mowing his lawn on a riding mower. He had to stop because the ground was too soft. He got off the mower and tried to lift it. He felt sudden pain in his lower back. He states he had to crawl to the house. No direct trauma. No bowel or bladder incontinence. No weakness. No other complaints. Physical Examination: Vitals are stable. Patient is afebrile. Alert no acute distress. HEENT exam is unremarkable. Lungs are clear and equal bilaterally. Heart is regular rate and rhythm. Abdomen is soft nontender nondistended. Back: Diffuse lumbar tenderness. Straight leg raise negative bilaterally Extremities are unremarkable. Skin is warm and dry. No focal neurologic deficit. Normal strength and sensation Remainder of exam is unremarkable. Emergency Department Course and Treatment: Patient is given morphine, Zofran IM. Lumbar xray shows straightening of the lumbar spine with otherwise normal alignment. Mild superior endplate compression deformities of L2 and L4 of an acute or chronic nature. The radiographic findings favor old/chronic compression deformities. Negative for substantial degenerative disc findings. Patient feels improved on reevaluation. He is given a prescription for short course of Carmen. He is advised to follow-up with his primary care physician Dr. Loja. Advised return to ED for worsening complaints. Disposition: Discharge home Impression: Lumbar strain This note was generated with [employer] dictation software. It may contain incorrect words, spelling, and punctuation that were not noted in review of the chart prior to signing ED Disposition - Plan for ED Patient: Chief Complaint: Back Instructions: ED Sprain Strain Lumbar Prescriptions: Hydrocodone Bitart/Apap 5-325 [[place] 5MG-325MG] 1 tablet PO Q6H PRN PRN 3 Days # 10 tablet PRN Reason: Pain Referrals: Mary Loja DO [Primary Care Provider] -
[2018-07-09] MEDS: morphine 10 MG/ML Syringe IM (15:20)
[2018-07-09] MEDS: Ondansetron 4 MG/2 ML Vial IM (15:21)
--- NOTE | 2018-07-09 15:33 | RAD_ITS ---
STUDY: X-RAY - LUMBAR SPINE REASON FOR EXAM: Male, 58 years old. Severe back pain after lifting. TECHNIQUE: 3 view(s) of the lumbar spine were obtained. COMPARISON: None FINDINGS: Straightening of the lumbar spine. There is no substantial scoliosis. There is a normal alignment of the vertebrae. Normal vertebral body height at L1, L3 and L5. Mild superior endplate compression deformities of L2 and L4 which may be acute or chronic in nature. No prior films available for comparison. Minimal degenerative disc findings. Atherosclerotic calcification of the abdominal aorta and iliac vessels. RAD/Lumbar Spine 2 or 3 Views IMPRESSION: Straightening of the lumbar spine with otherwise normal alignment. Mild superior endplate compression deformities of L2 and L4 of an acute or chronic nature. The radiographic findings favor old/chronic compression deformities. Negative for substantial degenerative disc findings. Electronically Signed: Jennifer Carvalho MD at 16:18 EDT , Service support ,
--- NOTE | 2018-07-09 16:29 | ED.DEP ---
ED Disposition - Plan for ED Patient: Chief Complaint: Back Instructions: ED Sprain Strain Lumbar Prescriptions: Hydrocodone Bitart/Apap 5-325 [[place] 5MG-325MG] 1 tablet PO Q6H PRN PRN 3 Days #10 tablet PRN Reason: Pain Referrals: Mary Loja DO [Primary Care Provider] -
--- NOTE | 2018-07-09 16:30 | DCINST.ED_ITS ---
ED Disposition - Plan for ED Patient: Chief Complaint: Back Instructions: ED Sprain Strain Lumbar Prescriptions: Hydrocodone Bitart/Apap 5-325 [[place] 5MG-325MG] 1 tablet PO Q6H PRN PRN 3 Days # 10 tablet PRN Reason: Pain Referrals: Mary Loja DO [Primary Care Provider] -
[2018-07-09 16:50] VITALS: BP 142/70; PULSE 90; RESP 14; O2SAT 98
[2018-07-09] MEDS: Orphenadrine 60 MG/2 ML Ampul IM (16:53)
== END 2018-07-09 17:25 | disposition home or self-care (01) ==
PROVIDERS: Emergency Provider Emergency Medicine; Family Provider Family Medicine; PCP Family Medicine
DX: S39.012A Strain of muscle, fascia and tendon of lower back, initial encounter (principal); J44.9 Chronic obstructive pulmonary disease, unspecified; Z99.81 Dependence on supplemental oxygen; X58.XXXA Exposure to other specified factors, initial encounter; Y93.H2 Activity, gardening and landscaping; Y92.007 Garden or yard of unspecified non-institutional (private) residence as the place of occurrence of the external cause; Y99.8 Other external cause status
CPT/HCPCS: 72100; 96372; 99282; J2405

== ENCOUNTER → 2018-07-12 09:01 | Outpatient (CLI) | payer MEDICARE, SELFPAY ==
--- NOTE | 2018-07-12 09:03 | NM_ITS ---
CLINICAL: 58-year-old male with history of low back discomfort. WHOLE BODY 99m Tc MDP RADIONUCLIDE BONE SCINTIGRAPHY COMPARISON: Plain film radiograph report lumbar spine 07/09/2018 FINDINGS: Following the intravenous administration of 25.4 mCi of 99m Tc MDP, whole body bone images reveal: 1. Increased radiopharmaceutical concentration is defined to the second lumbar vertebra diffusely as well as heterogeneously evident in the right sacroiliac joint. 2. Facilitated uptake is demonstrated in the sternoclavicular compartment of both shoulders, acromioclavicular compartment of the right shoulder, the left elbow and wrist articulation, left knee, the caudal aspect of the left sacroiliac joint. 3. The remaining skeletal structures are scintigraphically unremarkable with normal-appearing renal images and urinary bladder activity identified. The increase in uptake is defined at the level of the sternomanubrial synchondrosis most consistent with physiologic distribution of the radiopharmaceutical. NM/Bone Scan Whole Body IMPRESSION: 1. The increase in radiopharmaceutical concentration identified in the second lumbar vertebra and right sacroiliac joint most consistent with trauma-fracture. In patients less than 65 years of age, increased radiopharmaceutical concentration on bone scintigraphy in uncomplicated documented fracture, may take up to 18 months for complete resolution. (Rosas et al, Seminars of Nuclear Medicine, 13:104, 1983). 2. Degenerative arthritis appears otherwise expressed in the bilateral shoulders, left elbow, left wrist, the left knee, left sacroiliac joint. Electronically Signed: Jarret Reddy DO at 10:00 EDT Tel , Service support ,
== END ==
PROVIDERS: Family Provider Family Medicine; PCP Family Medicine; Referring Provider Family Medicine; Visit Provider Family Medicine
DX: M54.5 Low back pain (principal); S32.000A Wedge compression fracture of unspecified lumbar vertebra, initial encounter for closed fracture
CPT/HCPCS: 78306

== ENCOUNTER 2018-07-17 09:14 | Outpatient (RCR) | payer MEDICARE, SELFPAY ==
[2018-07-17 00:21] VITALS: PULSE 95; RESP 20; TEMP 37.1; O2SAT 96
== END 2018-08-11 11:36 | disposition home or self-care (01) ==
LOC: PR 09:14
PROVIDERS: Family Provider Family Medicine; PCP Family Medicine
DX: J44.9 Chronic obstructive pulmonary disease, unspecified (principal)

== ENCOUNTER → 2018-07-19 10:51 | Outpatient (CLI) | payer MEDICARE, SELFPAY ==
--- NOTE | 2018-07-19 10:59 | BD_ITS ---
STUDY: DUAL ENERGY X-RAY ABSORPTIOMETRY / DXA REASON FOR EXAM: Male, 58 years old. Prelung transplant TECHNIQUE: Bone Mineral Density (BMD) measurements of lumbar spine and bilateral hips were obtained. COMPARISON: None. FINDINGS: Lumbar Spine (L1-L4): g/cm2 (0.720) / T-score (-4.2) / Z-score (-3.9) Findings are suggestive of osteoporosis with a high fracture risk. Left Femur Total: g/cm2 (0.548) / T-score (-3.8) / Z-score (-3.4) Left Femoral Neck: g/cm2 (0.630) / T-score (-3.4) / Z-score (-2.6) Right Femur Total: g/cm2 (0.565) / T-score (-3.7) / Z-score (-3.3) Right Femoral Neck: g/cm2 (0.645) / T-score (-3.3) / Z-score (-2.5) BD/Dexa Bone Density Study IMPRESSION: The patient is considered osteoporotic as outlined below according to World Vinod Organization (WHO) criteria with a high fracture risk. Reference Information: The T-score is the number of standard deviations above or below the standard which is normal for young adults at their peak bone mineral density. The World Health Organization (WHO) interprets the T-scores as follows: Above -1 Normal bone density Between -1 and -2.5 Osteopenia Equal to / or below -2.5 Osteoporosis As a practical clinical guideline, osteopenia may be graded as follows: Mild -1 through -1.5 Moderate -1.6 through -2.0 Severe -2.1 through -2.4 The Z-score is the number of standard deviations above or below age-matched controls. A Z-score of less than -1.5 would be considered abnormal. References: 1. NIH Osteoporosis and Related Bone Diseases http://www.osteo.org 2. International Society for Clinical Densitometry http://www.iscd.org 3. National Osteoporosis Foundation http://www.nof.org Electronically Signed: Antoni Cullen MD at 16:55 EDT , Service support ,
== END ==
PROVIDERS: Family Provider Family Medicine; PCP Family Medicine
DX: M81.0 Age-related osteoporosis without current pathological fracture (principal)
CPT/HCPCS: 77080

== ENCOUNTER 2018-07-31 13:40 | Day surgery (SDC) | payer MEDICARE, SELFPAY ==
[2018-07-31 14:11] VITALS: PULSE 101; RESP 18; TEMP 37; O2SAT 100
[2018-07-31] MEDS: Bupivacaine Mpf 0.5% 30 ML VIAL (15:55)
[2018-07-31] MEDS: Bacitracin 500 UNITS/GM PACKET (15:55)
[2018-07-31] MEDS: Cefazolin 2 GM in 0.9% Normal Saline 100 ML IV (16:00)
--- NOTE | 2018-07-31 16:00 | RAD_ITS ---
CLINICAL HISTORY: Male, 58 years old. Low back pain. PROCEDURE: KYPHOPLASTY - L2 and L4 vertebrae. FLUOROSCOPY TIME (if supplied): (2 minutes and 19 seconds.) minutes/seconds Intraoperative imaging provided for vertebroplasty of the L2 and L4 vertebrae. RAD/Lumbar Spine 2 or 3 Views IMPRESSION: Intraoperative imaging provided for vertebroplasty of the L2 and L4 vertebrae. Electronically Signed: Jian Allen MD at 12:44 EDT Tel [phone], Service support ,
[2018-07-31 17:39] VITALS: BP 108/79; BP 142/100; PULSE 85; RESP 16; TEMP 36.7; O2SAT 95
[2018-07-31 17:45] VITALS: BP 117/6; BP 142/100; PULSE 82; RESP 16; O2SAT 91
--- NOTE | 2018-07-31 17:45 | PCM.OPRPT ---
Problem List (1) Compression fracture of L2 lumbar vertebra Status: Acute Qualifiers: Encounter type: initial encounter (2) Compression fracture of L4 lumbar vertebra Status: Acute Qualifiers: Encounter type: initial encounter Report of Operation Date of Procedure: 07/31/18 Pre-Operative Diagnosis: Compression fracture of L2 vertebral body, compression fracture of L4 vertebral body, osteoporosis Post-Operative Diagnosis: Compression fracture of L2 vertebral body, compression fracture of L4 vertebral body, osteoporosis Surgery/Procedure Performed:: [place] balloon kyphoplasty by pedicular at L2 vertebral body, [place] balloon kyphoplasty of L4 vertebral body, fluoroscopic guidance and interpretation Description of Surgical Findings:: PROCEDURES: 1. [place] balloon kyphoplasty at the Bipedicular L2 level and uni-pedicular L4 Level 2. Insertion of [place] HV-R bone cement under low pressure at the L2 and L4 3. Bone biopsy of L2 and L4 4. Fluoroscopic guidance and interpretation of images PREOPERATIVE DIAGNOSES: Osteoporosis, compression fracture of L2 and L4 POSTOPERATIVE DIAGNOSES: Osteoporosis, compression fracture of L2 and L4 ANESTHESIA: MAC COMPLICATIONS: None BLOOD LOSS: Minimal <25 ml PROCEDURE IN DETAIL: History and physical today was reviewed. Risks and benefits of procedure explained. The patient understood, agreed to procedure, informed consent was obtained. IV inserted per routine protocol. The patient was taken to the operating room, placed in the prone position with a pillow positioned underneath the abdomen. A 2 g of Ancef IV piggyback was infused per anesthesia. The upper and middle and lower back area was prepped and draped in a sterile fashion using iodine x3. Under direct visualization with fluoroscopy with the C-arm, which brought into position on AP as well as lateral view at the L2 level., the L2 pedicle was then identified. In the view of the collapsed L2, a trans-pedicular, bipedicular approach to the vertebral body was appropriate. Starting on the left side at L2 level, an 11-gauge needle was advanced through the L2 pedicle through the junction of the pedicle and the vertebral body on the left side. Position was then confirmed on AP as well as lateral view. Following satisfactory placement of the needle to make sure it is further off the midline and interlaminar space. The stylet of the needle was then removed. A guide pen and then inserted through the 11-gauge trocar and advanced approximately 3 mm from the anterior cortex on the lateral view. AP and lateral images were then taken to verify position and trajectory of the needle. The needle was then removed leaving the guide pen in place. The introducer was then placed over the guide pen and advanced through the pedicle. Once the guidewire was at the junction of the pedicle and the vertebral body, a lateral image was taken to ensure that the cannula was positioned approximately 1 cm past the vertebral body and a lateral image was then taken to ensure correct [id number] and through the cannula, a drill was then advanced into the vertebral body under fluoroscopic guidance towards the anterior cortex creating a channel. The anterior cortex were then probed with guide pen to ensure no perforation in the anterior cortex. After completion of the entry into the vertebral body, a 30 mL inflatable bone tamp was then inserted through the cannula and advanced under direct fluoroscopic guidance into the vertebral body near the anterior cortex., The biopsy was then taken at the L2 level. After completion of the entry into the vertebral body, a balloon tamp utilizing radiopaque marker bands on the bone tamp were identified using AP and lateral images. The above sequence of instrument placement was then repeated on the right side at the L2 vertebral body. Once both bone tamps were in position, they were inflated to approximately 3 mL and making sure that the pressure is not passing 250 psi. Expansion of the bone tamp was then done sequentially in an increments of 0.25 to 0.5 mL of contrast with a careful attention was being paid to the inflation pressure and the balloon position. The inflation was then monitored on AP and lateral view images. The final balloon volume was 3.2 mL on the left side and 3.1 mL on the right side at L2 level and on the left of L4 to approximately 3.5 mL There was no breach of the lateral wall or the anterior cortex of the vertebral body. Direct reduction of the fracture was then achieved. The above was then repeated at the L4 level through a uni-pedicular approach of the left of L4 endplate movement was then noticed and approximately 5 mm of the height christian was achieved at L 2 and at approximately 5 mm reduction was then achieved at the L4 level. Under fluoroscopic imaging and a bone void filler, internal fixation was achieved through a low pressure injection of a [place] HV-R bone cement. The cavity was then filled with a total volume of 3.5 mL on the left side at L2 and approximately 3 mL of cement on the right side at the L2 level. Once the bone cement had hardened, the cannula was then removed. Once the cannula was removed and satisfactory hemostasis was maintained, the incision as then closed with a 4-0 Vicryl at the skin. The patient was kept in the prone position for approximately 10 minutes post-cement injection. The patient was then turned into supine position, monitored briefly and returned to PACU. The patient was moving both of his lower extremities at the same time without any apparent neurological deficits. Throughout the procedure, there were no intraoperative complications. ESTIMATED BLOOD LOSS: Minimal less than 25 mL ASSESSMENT AND PLAN: This is a 58-year-old male with compression fracture of L2 and L4 and osteoporosis , status post [place] balloon kyphoplasty at L2 and L4 and insertion of [place] HV-R bone cement under low pressure at L2 and L4 level and bone biopsied at both levels. The patient will continue his current medication. The patient will follow-up in approximately 1 week for re-evaluation. At the recovery area, the patient's pain had been reduced prior to his procedure. Motor as well as sensory exam was unchanged from prior to procedure.
[2018-07-31 17:50] VITALS: BP 111/78; BP 142/100; PULSE 82; RESP 16; O2SAT 94
[2018-07-31 17:55] VITALS: BP 127/86; BP 142/100; PULSE 72; RESP 16; TEMP 36.6; O2SAT 93
--- NOTE | 2018-07-31 17:58 | OP.PCM_ITS ---
Problem List (1) Compression fracture of L2 lumbar vertebra Status: Acute Qualifiers: Encounter type: initial encounter (2) Compression fracture of L4 lumbar vertebra Status: Acute Qualifiers: Encounter type: initial encounter Report of Operation Date of Procedure: 07/31/18 Pre-Operative Diagnosis: Compression fracture of L2 vertebral body, compression fracture of L4 vertebral body, osteoporosis Post-Operative Diagnosis: Compression fracture of L2 vertebral body, compression fracture of L4 vertebral body, osteoporosis Surgery/Procedure Performed:: Herndon balloon kyphoplasty by pedicular at L2 vertebral body, Nona balloon kyphoplasty of L4 vertebral body, fluoroscopic guidance and interpretation Description of Surgical Findings:: PROCEDURES: 1. Herndon balloon kyphoplasty at the Bipedicular L2 level and uni-pedicular L4 Level 2. Insertion of Nona HV-R bone cement under low pressure at the L2 and L4 3. Bone biopsy of L2 and L4 4. Fluoroscopic guidance and interpretation of images PREOPERATIVE DIAGNOSES: Osteoporosis, compression fracture of L2 and L4 POSTOPERATIVE DIAGNOSES: Osteoporosis, compression fracture of L2 and L4 ANESTHESIA: MAC COMPLICATIONS: None BLOOD LOSS: Minimal <25 ml PROCEDURE IN DETAIL: History and physical today was reviewed. Risks and benefits of procedure explained. The patient understood, agreed to procedure, informed consent was obtained. IV inserted per routine protocol. The patient was taken to the operating room, placed in the prone position with a pillow positioned underneath the abdomen. A 2 g of Ancef IV piggyback was infused per anesthesia. The upper and middle and lower back area was prepped and draped in a sterile fashion using iodine x3. Under direct visualization with fluoroscopy with the C-arm, which brought into position on AP as well as lateral view at the L2 level., the L2 pedicle was then identified. In the view of the collapsed L2, a trans-pedicular, bipedicular approach to the vertebral body was appropriate. Starting on the left side at L2 level, an 11-gauge needle was advanced through the L2 pedicle through the junction of the pedicle and the vertebral body on the left side. Position was then confirmed on AP as well as lateral view. Following satisfactory placement of the needle to make sure it is further off the midline and interlaminar space. The stylet of the needle was then removed. A guide pen and then inserted through the 11-gauge trocar and advanced approximately 3 mm from the anterior cortex on the lateral view. AP and lateral images were then taken to verify position and trajectory of the needle. The needle was then removed leaving the guide pen in place. The introducer was then placed over the guide pen and advanced through the pedicle. Once the guidewire was at the junction of the pedicle and the vertebral body, a lateral image was taken to ensure that the cannula was positioned approximately 1 cm past the vertebral body and a lateral image was then taken to ensure correct [id number] and through the cannula, a drill was then advanced into the vertebral body under fluoroscopic guidance towards the anterior cortex creating a channel. The anterior cortex were then probed with guide pen to ensure no perforation in the anterior cortex. After completion of the entry into the vertebral body, a 30 mL inflatable bone tamp was then inserted through the cannula and advanced under direct fluoroscopic guidance into the vertebral body near the anterior cortex., The biopsy was then taken at the L2 level. After completion of the entry into the vertebral body, a balloon tamp utilizing radiopaque marker bands on the bone tamp were identified using AP and lateral images. The above sequence of instrument placement was then repeated on the right side at the L2 vertebral body. Once both bone tamps were in position, they were inflated to approximately 3 mL and making sure that the pressure is not passing 250 psi. Expansion of the bone tamp was then done sequentially in an increments of 0.25 to 0.5 mL of contrast with a careful attention was being paid to the inflation pressure and the balloon position. The inflation was then monitored on AP and lateral view images. The final balloon volume was 3.2 mL on the left side and 3.1 mL on the right side at L2 level and on the left of L4 to approximately 3.5 mL There was no breach of the lateral wall or the anterior cortex of the vertebral body. Direct reduction of the fracture was then achieved. The above was then repeated at the L4 level through a uni-pedicular approach of the left of L4 endplate movement was then noticed and approximately 5 mm of the height advent was achieved at L 2 and at approximately 5 mm reduction was then achieved at the L4 level. Under fluoroscopic imaging and a bone void filler, internal fixation was achieved through a low pressure injection of a Herndon HV-R bone cement. The cavity was then filled with a total volume of 3.5 mL on the left side at L2 and approximately 3 mL of cement on the right side at the L2 level. Once the bone cement had hardened, the cannula was then removed. Once the cannula was removed and satisfactory hemostasis was maintained, the incision as then closed with a 4-0 Vicryl at the skin. The patient was kept in the prone position for appro ximately 10 minutes post-cement injection. The patient was then turned into supine position, monitored briefly and returned to PACU. The patient was moving both of his lower extremities at the same time without any apparent neurological deficits. Throughout the procedure, there were no intraoperative complications. ESTIMATED BLOOD LOSS: Minimal less than 25 mL ASSESSMENT AND PLAN: This is a 58-year-old male with compression fracture of L2 and L4 and osteoporosis , status post Herndon balloon kyphoplasty at L2 and L4 and insertion of Nona HV-R bone cement under low pressure at L2 and L4 level and bone biopsied at both levels. The patient will continue his current medication. The patient will follow-up in approximately 1 week for re-evaluation. At the recovery area, the patient's pain had been reduced prior to his procedure. Motor as well as sensory exam was unchanged from prior to procedure.
[2018-07-31 18:21] VITALS: BP 142/100
--- NOTE | 2018-08-01 | BON_PTH ---
PATIENT: NICK HERNÁNDEZ LOC: [facility] – [place], [place] U#:[id number] AGE/SX: 58/M ROOM: RE07/31/[address]: Dr. Hany Ramires MD : 1960 BED: DIS: 07/31/2018 SPEC #: [id number] RECD: 08/01/18 11:41 STATUS: VERONICA REQ #: [id number] JALEEL: 08/01/18 00:[address]: Hany Ramires DEPT: SURGICAL PATHOLOGY RECD BY: Javi Rogers ENTERED: 08/01/18 11:42 SP TYPE: Bone OTHR DR: Dr. Mary Loja DO Tissues: A - Vertebra, NOS B - Vertebra, NOS Procedures: Decalcification bone/plaque Surgery Specimen Level IV HEADER OPERATION: Kyphoplasty L2 and L4, bipedicular kyphoplasty PRE-OP DIAGNOSIS: Compression fracture of lumbar spine TISSUE SUBMITTED: A - L4 biopsy, B - L2 biopsy MICROSCOPIC DIAGNOSIS A. L4, kyphoplasty: Pieces of bone, negative for malignancy, clinically compression fracture. B. L2, kyphoplasty: A piece of bone with reactive changes, clinically compression fracture. EMMANUEL:sammi 08/02/18 MICROSCOPIC DESCRIPTION Slides are reviewed. GROSS DESCRIPTION A - Received in fixative is one container labeled with the patient's name and designated L4 biopsy. The specimen consists of two pieces of bone measuring in aggregate 1 x 0.3 x 0.1 cm. The entire specimen is submitted in one cassette after decalcification. B - Received in fixative is one container labeled with the patient's name and designated L2 biopsy. The specimen consists of one elongated piece of bone measuring 1 cm in length and 0.2 cm in diameter. The entire specimen is submitted in one cassette after decalcification. / EMMANUEL:sammi 08/01/18 :5 [facility]: [id number] x2, [id number] x2
== END 2018-07-31 18:30 | disposition home or self-care (01) ==
LOC: SDC 13:40 → AC 13:42
PROVIDERS: Family Provider Family Medicine; PCP Family Medicine; Referring Provider Anesthesiology Pain Medicine; Visit Provider Anesthesiology Pain Medicine
PROC: (CPT 22514; principal; 2018-07-31 14:30)
DX: M48.56XA Collapsed vertebra, not elsewhere classified, lumbar region, initial encounter for fracture (principal); M81.0 Age-related osteoporosis without current pathological fracture; J44.9 Chronic obstructive pulmonary disease, unspecified; Z99.81 Dependence on supplemental oxygen; Z87.891 Personal history of nicotine dependence; Z87.442 Personal history of urinary calculi; Z79.2 Long term (current) use of antibiotics; Z79.891 Long term (current) use of opiate analgesic; Z79.51 Long term (current) use of inhaled steroids; X50.0XXA Overexertion from strenuous movement or load, initial encounter; Y93.89 Activity, other specified; Y92.007 Garden or yard of unspecified non-institutional (private) residence as the place of occurrence of the external cause; Y99.8 Other external cause status
CPT/HCPCS: 22514; 22515; 72100; 76000; 88305; 88311; J7120

== ENCOUNTER 2018-09-15 09:30 | Outpatient (RCR) | payer MEDICARE, SELFPAY | END 2018-09-15 23:59 | LOC: PR 09:30 | PROVIDERS: Family Provider Family Medicine; PCP Family Medicine; Visit Provider Internal Medicine Critical Care Medicine | DX: J44.9 Chronic obstructive pulmonary disease, unspecified (principal) | CPT/HCPCS: 97150; G0424 ==

== ENCOUNTER 2018-09-20 09:30 | Outpatient (RCR) | payer MEDICARE, SELFPAY | END 2018-10-16 23:59 | LOC: PR 09:30 | PROVIDERS: Family Provider Family Medicine; PCP Family Medicine; Referring Provider Internal Medicine Critical Care Medicine; Visit Provider Internal Medicine Critical Care Medicine | DX: J44.9 Chronic obstructive pulmonary disease, unspecified (principal) | CPT/HCPCS: 97150; G0424 ==

== ENCOUNTER → 2018-09-21 11:10 | Outpatient (CLI) | payer MEDICARE, SELFPAY ==
--- NOTE | 2018-09-21 11:12 | RAD_ITS ---
STUDY: X-RAY - LUMBAR SPINE REASON FOR EXAM: Male, 58 years old. Low back pain. TECHNIQUE: 5 view(s) of the lumbar spine were obtained including oblique views. COMPARISON: Comparison is made with prior study dated July 31, 2018. FINDINGS: Normal lumbar lordosis. There is no substantial scoliosis. There is a normal alignment of the vertebrae. The patient is status post vertebroplasty of the L2 and L4 vertebrae. Loss of height of the L2 and L4 vertebrae. Normal disc space heights. There is atherosclerotic calcification of the abdominal aorta without a demonstrated aneurysm. RAD/L/S Spine Min 4 Views IMPRESSION: The patient is status post vertebroplasty of the L2 and L4 vertebrae with loss of height. This is unchanged. Electronically Signed: Jian Allen MD at 12:10 EST Tel [phone], Service support ,
--- NOTE | 2018-09-21 11:12 | RAD_ITS ---
STUDY: X-RAY - CERVICAL SPINE REASON FOR EXAM: Male, 58 years old. Back pain. No known injury. TECHNIQUE: view(s) of the cervical spine were obtained. COMPARISON: None FINDINGS: Normal anterior atlantoaxial articulation. Normal odontoid process. There is an exaggerated cervical lordosis. Normal vertebral bodies and endplates. Normal disc space heights. Normal visualized intervertebral neuroforamina. There are atherosclerotic vascular calcifications of the carotid arteries. RAD/Cerv Spine 4 or 5 Views IMPRESSION: Normal x-ray examination of the visualized cervical spine. Electronically Signed: Jian Allen MD at 12:09 EST Tel [phone], Service support ,
--- NOTE | 2018-09-21 11:15 | RAD_ITS ---
STUDY: X-RAY - THORACIC SPINE REASON FOR EXAM: Male, 58 years old. Back pain. TECHNIQUE: 2 view(s) of the thoracic spine were obtained. COMPARISON: None. FINDINGS: Normal kyphosis of the thoracic spine. There is no substantial scoliosis. There is demineralization of the thoracic spine. Minimal loss of height of a mid dorsal vertebrae. There is mild disc space narrowing of the thoracic spine. The soft tissue structures are unremarkable. RAD/Thoracic Spine 2 Views IMPRESSION: The mineralization of the thoracic vertebrae. Minimal loss of height of a mid dorsal vertebrae. Electronically Signed: Jian Allen MD at 12:09 EST Tel [phone], Service support ,
== END ==
PROVIDERS: Family Provider Family Medicine; PCP Family Medicine; Referring Provider Family Medicine; Visit Provider Family Medicine
DX: M54.2 Cervicalgia (principal); M54.9 Dorsalgia, unspecified
CPT/HCPCS: 72050; 72070; 72110

== ENCOUNTER → 2018-10-24 15:33 | Outpatient (CLI) | payer MEDICARE, MEDICAID, SELFPAY ==
[2018-10-04 10:47] VITALS: BMI 20.6
--- NOTE | 2018-10-24 | BON_PTH ---
PATIENT: NICK HERNÁNDEZ LOC: [facility] U#:[id number] AGE/SX: 65/M ROOM: RE10/24/[address]: Dr. Hany Ramires MD : 1960 BED: DIS: SPEC #: [id number] RECD: 10/24/18 15:23 STATUS: VERONICA REJono #: [id number] JALEEL: 10/24/18 00:[address]: Hany Ramires DEPT: SURGICAL PATHOLOGY RECD BY: Javi Rogers ENTERED: 10/25/18 10:02 SP TYPE: Bone OTHR DR: Dr. Mary Loja, [facility] Tissues: Vertebra, NOS Procedures: Decalcification bone/plaque Surgery Specimen Level IV HEADER OPERATION: Kyphoplasty T7 under fluoroscopy PRE-OP DIAGNOSIS: Compression fracture of spine T7 TISSUE SUBMITTED: Vertebral body T7 MICROSCOPIC DIAGNOSIS Vertebral body, T7, kyphoplasty: A piece of bone with reactive changes, clinically compression fracture. SJ:sammi 10/26/18 MICROSCOPIC DESCRIPTION Slides are reviewed. GROSS DESCRIPTION Received is one container labeled with the patient's name and not further designated. The specimen consists of a piece of bone measuring 0.5 cm in length and 0.1 cm in diameter. The entire specimen is submitted in one cassette after decalcification. / EMMANUEL:sammi 10/25/18 TC:5 CPT: 91358, 47604
== END ==
PROVIDERS: Family Provider Family Medicine; PCP Family Medicine; Referring Provider Anesthesiology Pain Medicine; Visit Provider Anesthesiology Pain Medicine
DX: S22.069A Unspecified fracture of T7-T8 vertebra, initial encounter for closed fracture (principal)
CPT/HCPCS: 88305; 88311

== ENCOUNTER → 2018-11-27 14:09 | Outpatient (CLI) | payer MEDICARE, MEDICAID, SELFPAY ==
[2018-11-14 11:40] VITALS: BMI 20.2
[2018-11-27 16:21] LABS: AST(SGOT) 22 U/L (15-37); Alanine Aminotransfer ALT/SGPT 37 U/L (16-61); Albumin, Serum 4.2 g/dL (3.2-5.0); Alkaline Phosphatase 87 U/L (45-117); Bilirubin, Direct 0.15 mg/dL (0.00-0.30); Cholesterol 184 mg/dL (200); Globulin 3.8 g/dL (2.2-4.2); High Density Lipoprotein 75 mg/dL; Triglycerides 95 mg/dL; Very Low Density Lipoprotein 19 mg/dL (5-40)
[2018-11-27 16:38] LABS: Vitamin D,25 Hydroxy 101.1 ng/mL (29.95-100.01)
== END ==
PROVIDERS: Family Provider Family Medicine; PCP Family Medicine; Visit Provider Internal Medicine Cardiovascular Disease
DX: E55.9 Vitamin D deficiency, unspecified (principal); M81.0 Age-related osteoporosis without current pathological fracture; E78.5 Hyperlipidemia, unspecified
CPT/HCPCS: 36415; 80061; 80076; 82306

== ENCOUNTER → 2018-12-05 10:27 | Outpatient (CLI) | payer MEDICARE, MEDICAID, SELFPAY ==
[2018-11-14 11:40] VITALS: BMI 20.2
--- NOTE | 2018-12-05 10:30 | STEWCON_ITS ---
Reason For Study: CAD/ASHD Stress Results Protocol: Dobutamine Protocol Maximum Predicted HR: 164 bpm Target HR: 139 bpm % Maximum Predicted HR: 86 % DurationHeart Rate Stage (mm:ss) (bpm) BP Dose Comment BASELINE 75 139/98 2CC DEFINITY STAGE 1 4:48 98 160/8910.002CC DEFINITY STAGE 2 3:00 127 152/9120.00 STAGE 3 3:32 141 155/02905.003 CC DEFINITY RECOVERY 104 150/94 1 CC DEFINITY Stress Duration: 11:20 mm:ss Maximum Stress HR: 141 bpm Baseline Echocardiogram Findings The estimated ejection fraction is 65 %. Stress Echo Wall motion Data Resting WM Intermediate WM Stress WM Resting Wall Motion Wall Motion Stress No regional wall motion No regional wall motion abnormalities noted. abnormalities noted. EKG Data The baseline ECG displays normal sinus rhythm. The patient was titrated from 10 mcg to a maximun of 30 mcg of dobutamine during the stress. The maximum heart rate attained was 11:22 beats per minute. This was 95% of maximum predicted heart rate. During dobutamine infusion, there were no ST or T wave changes noted to suggest ischemia. No clinical angina was noted. Interpretation Summary The estimated ejection fraction is 65 %. Normal, adequate, dobutamine echocardiogram. Negative for ischemia by EKG and echocardiographic criteria. No anginal symptoms noted. Rare PAC and PVC noted. Appropriate blood pressure response to dobutamine. Final LVEF is 75%. Decreased sensitivity due to poor echo windows requiring Definity enhancing agent. Test terminated due to the attainment of target heart rate. No complications. The study was technically difficult. Contrast injection was performed. Ordering Physician: Kristofer Alfaro MD Referring Physician: Kristofer Alfaro Performed By: Alexandre De León RCS
== END ==
PROVIDERS: Family Provider Family Medicine; PCP Family Medicine; Referring Provider Internal Medicine Cardiovascular Disease; Visit Provider Internal Medicine Cardiovascular Disease
DX: Z01.810 Encounter for preprocedural cardiovascular examination (principal); Z76.82 Awaiting organ transplant status
CPT/HCPCS: 93017; 93350; J7040; Q9957; A4216; C8928

== ENCOUNTER → 2019-02-12 | Outpatient (CLI) | payer MEDICARE, MEDICAID, SELFPAY ==
[2018-11-14 11:40] VITALS: BMI 20.2
[2019-02-14 13:26] LABS: Tacrolimus (FK506) 12.3 ng/mL (2.0-20.0)
== END | disposition home or self-care (01) ==
PROVIDERS: Family Provider Family Medicine; PCP Family Medicine
DX: D89.9 Disorder involving the immune mechanism, unspecified (principal); R79.9 Abnormal finding of blood chemistry, unspecified; Z94.2 Lung transplant status; Z51.81 Encounter for therapeutic drug level monitoring; Z79.899 Other long term (current) drug therapy
CPT/HCPCS: 36415; 80197

== ENCOUNTER → 2019-02-15 | Outpatient (CLI) | payer MEDICARE, OTHER, MEDICAID, SELFPAY ==
[2018-11-14 11:40] VITALS: BMI 20.2
[2019-02-15 12:20] LABS: Absolute Lymphocyte Count 0.97 X10^3/ul (0.83-4.51); Absolute Neutrophil Count 4.1 X10^3/uL (2.0-7.7); Basophil# 0.01 X10^3/uL; Basophil% 0.2 % (0-1); Eosinophil# 0.08 X10^3/uL; Eosinophils% 1.4 % (0-5); Hematocrit 37.3 % (40-54); Hemoglobin 11.6 g/dl (13.0-16.5); Lymphocyte # 0.97 X10^3/ul (4.0); Lymphocyte % 17.3 % (19-41); Mean Corp Hgb Conc 31.1 g/gl (32-36); Mean Corpuscular Hgb 34.5 pg (27.0-32.0); Mean Platelet Vol. 10.2 fl (6.2-12.0); Monocyte# 0.43 X10^3/uL; Monocyte% 7.7 % (0-10); Neutrophil # 4.07 X10^3/uL (2.7-7.7); Neutrophil % 72.5 % (47-70); Platelet Count 270 K/mm3 (150-450); RBC Distribution Width CV 20.5 % (11.6-14.6); RBC Distribution Width SD 79.5 fl (35.1-43.9); Red Blood Count 3.36 M/mm3 (4.6-6.2); White Blood Count 5.6 K/mm3 (4.4-11.0)
[2019-02-15 12:21] LABS: Differential Indicated SCAN CRITERIA MET; POSITIVE COUNT NO; POSITIVE DIFFERENTIAL NO; POSITIVE MORPHOLOGY YES
[2019-02-15 12:42] LABS: Alanine Aminotransfer ALT/SGPT 27 U/L (16-61); Albumin, Serum 3.4 g/dL (3.2-5.0); Alkaline Phosphatase 102 U/L (45-117); BUN 12 mg/dL (7-18); Bilirubin, Direct 0.05 mg/dL (0.00-0.30); Chloride 109 mmol/L (98-107); Cholesterol 207 mg/dL (200); Creatinine, Serum 0.82 mg/dL (0.70-1.30); EST Glomerular Filtration Rate 102 mL/min (>60); Est Glom Filt Rate - Afr Amer 124 mL/min (>60); Ferritin 1056 ng/mL (26-388); GGTP 99 U/L (15-85); Glucose 101 mg/dL (74-106); High Density Lipoprotein 62 mg/dL; Iron 171 ug/dL (65-175); Iron Binding Capacity,Total 238 ug/dL (250-450); Magnesium 1.6 mg/dL (1.6-2.6); Phosphorus 2.8 mg/dL (2.5-4.9); Sodium Level 142 mmol/L (136-145); Triglycerides 287 mg/dL; Uric Acid 5.8 mg/dL (3.5-7.2); Very Low Density Lipoprotein 57 mg/dL (5-40)
[2019-02-15 12:47] LABS: Hemoglobin A1c 4.7 % (4.2-6.3)
[2019-02-15 13:02] LABS: Anisocytosis 1+
[2019-02-20 17:15] LABS: CMV by PCR Negative (Negative); Tacrolimus (FK506) 11.7 ng/mL (2.0-20.0); Transferrin 189 mg/dL (200-370)
== END | disposition home or self-care (01) ==
LOC: LAB.FUTURE 08:59
PROVIDERS: Family Provider Family Medicine; PCP Family Medicine
DX: D89.9 Disorder involving the immune mechanism, unspecified (principal); R79.9 Abnormal finding of blood chemistry, unspecified; Z94.2 Lung transplant status; Z48.24 Encounter for aftercare following lung transplant; Z51.81 Encounter for therapeutic drug level monitoring; Z79.899 Other long term (current) drug therapy
CPT/HCPCS: 36415; 80061; 80197; 82040; 82247; 82248; 82310; 82374; 82435; 82565; 82728; 82947; 82977; 83036; 83540; 83550; 83735; 84075; 84100; 84295; 84460; 84466; 84520; 84550; 85025; 87496

== ENCOUNTER → 2019-02-16 | Outpatient (CLI) | payer MEDICARE, MEDICAID, SELFPAY ==
[2018-11-14 11:40] VITALS: BMI 20.2
--- NOTE | 2019-02-16 09:03 | PCM.PR.HP ---
History of Present Illness Arrival date:: 02/16/19 Arrival time:: 09:03 Date of Referral:: 02/07/19 Date of Evaluation: 02/16/19 Referring Physician: DR. JENNY METZGER @ [facility] - DR. ANMOL JEFF Primary Diagnosis: S/P DOUBLE LUNG TRANSPLANT W/BYPASS History of Present Illness: PT IS A 58 YR OLD MALE WITH A PRIOR HISTORY OF COPD W/EMPHYSEMA WHO RECENTLY HAD A DOUBLE LUNG TRANSPLANT W/BYPASS DONE AT [facility] IN [place], [place]. THE PATIENT HAS COMPLETED AN INITIAL 9 SESSIONS OF LA AT [facility] POST OPERATIVE AND HAS BEEN RELEASED TO CONTINUE HIS LA HERE AT [facility] AT THIS TIME. mMRC Breathless Scale: When is the patient short of breath? Y/N Grade: Description of Breathlessness: 0 I only get breathless with strenuous exercise. 1 I get short of breath when hurrying on level ground or walking up a slight hill. 2 On level ground, I walk slower than people of the same age because of breathless, or have to stop for breath when walking at my own pace. 3 I stop for breath after walking 100 yards or after a few minutes on level ground. 4 I am too breathless to leave the house or I am breathless when dressing. Respiratory Problems: Yes: Able to Speak in Full Sentences, Anxiety No: Retain Secretions, Limited Range of Motion, Fatigue, Wheezing, Dizziness, Dyspnea at Rest, Dyspnea with Activity, Dyspnea Lying Down Flat, Cough with Secretions Home Medications: Home Medications ipratropium-albuterol 0.5 mg-3 mg(2.5 mg base)/3 mL nebulization soln 3 ml INHALATION Q4H ml 10/27/17 lecithin, soy 1,200 mg capsule 1,200 mg PO QDAY 02/06/18 multivitamin with iron tablet 1 tab PO QDAY 02/06/18 Azithromycin 250 mg PO MOWEFR 06/15/18 Ensure Complete 350 ml PO BID 06/15/18 cholecalciferol (vitamin D3) 50,000 unit capsule 50,000 unit PO QWEEK 07/05/18 fluticasone propionate-salmeterol 230 mcg-21 mcg/actuation HFA inhaler 2 puff INHALATION BID #12 g 07/05/18 Simvastatin [Zocor] 40 mg PO QHS 07/28/18 alendronate 70 mg tablet 70 mg PO QWEEK 08/18/18 Disability Placard 0 .ROUTE .MEDSUPPLY #2 ea 09/04/18 aspirin 81 mg tablet,delayed release 81 mg PO DAILY 10/04/18 hydrocodone 5 mg-acetaminophen 325 mg tablet 2 tab PO Q6H PRN 10/04/18 metoprolol tartrate 25 mg tablet 12.5 mg PO BID 10/04/18 tiotropium bromide 18 mcg capsule with inhalation device 1 cap INHALATION DAILY 10/19/18 Acetaminophen [Pain Relief] 650 mg PO Q12H PRN 02/16/19 Amiodarone HCl [Cordarone] 200 mg PO BID 02/16/19 Calcium Citrate/Vitamin D3 [Calcium Citrate - Vit D Caplet] 1 each PO BID 02/16/19 Docusate Sodium [Dulcoease] 100 mg PO BID 02/16/19 Enoxaparin [Lovenox] 60 mg SC BID 02/16/19 Ergocalciferol (Vitamin D2) [Vitamin D2] 50,000 unit PO QWEEK 02/16/19 Ferrous Sulfate [Ferosul] 325 mg PO 02/16/19 Furosemide [Lasix] 20 mg PO BIDLX 02/16/19 Magnesium Oxide [Magox 400] 400 mg PO BID 02/16/19 Mycophenolate Mofetil [Cellcept] 1,000 mg PO BID 02/16/19 Pantoprazole Sodium [Protonix] 40 mg PO DAILY 02/16/19 Prednisone 10 mg PO 02/16/19 Rosuvastatin Calcium [Crestor] 10 mg PO DAILY 02/16/19 Sitagliptin Phosphate [Januvia] 100 mg PO 02/16/19 Sulfamethoxazole/Trimethoprim [Sulfamethoxazole-Tmp Ds Tablet] 3 capsule PO 02/16/19 Tacrolimus [Astagraf Xl] 0.5 mg PO 02/16/19 Valacyclovir HCl [Valacyclovir] 500 mg PO Q12H 02/16/19 Voriconazole [Vfend] 200 mg PO Q12H 02/16/19 Warfarin [Coumadin (PBKC)] 1.5 mg PO DAILY 02/16/19 Allergies/Adverse Reactions: Allergies fluticasone furoate [From Breo Ellipta] Allergy (Severe, Verified 10/19/18 09:00) Other made patient breathe hard and high pulse vilanterol [From Breo Ellipta] Allergy (Severe, Verified 10/19/18 09:00) Other made patient breathe hard and high pulse codeine Allergy (Mild, Verified 10/19/18 09:00) Hives - Secretions Normal Color:: none Hx of Sleep Apnea: No Do you snore loudly (louder than talking or can be heard through closed doors)?: No Do you often feel tired/ fatigued/ sleepy during daytime?: No Has anyone observed you stop breathing during sleep?: No History of Hypertension (for STOP score): No STOP Results: Negative Medical Utilization Do you use a peak flow meter at home?: No Do you use a spacer device with your inhalers?: Yes Number of hospital visits in the last year?: 2 - S/P DOUBLE LUNG TRANSPLANT @ [facility] / LUMBAR FRACTURE Number of emergency room visits in the last year?: 3 - LUMBAR FRACTURES/SOB Do you see your physician on a regular schedule?: Yes How often?: 30 DAYS Advanced Directives - Advanced Directives Power of Inventory Accountant: Yes Living Will: Yes Advance Directives Information Provided: No Advance Directives on File: Yes DNR Order?:: No - MOLST See MOLST form: No Past Medical History Medical History: Past Medical History (Last Updated 02/16/19 @ 09:25 by Vipul Rincon, [employer]EZZ[employer] DEVELOPER, MARKETING PROFESSOR, BS) Wide-complex tachycardia (Acute) I47.2 4 beat run per48 hour holter done 06/23/2018. Pt also had 62 ventricular ectopic beats, 224 supraventricular beats, 8 atrial couplets, 4 beats of atrial trigeminy and 3 atrial runs comprising of 13 beats. NO atrial fib on holter. Pre-operative cardiovascular examination (Acute) Z01.810 Lung transplant candidate (Chronic) Z76.82 Migraine (Chronic) G43.909 Hypoxia (Chronic) R09.02 Emphysema of lung (Chronic) J43.9 Oxygen dependent (Chronic) Z99.81 Cachexia (Chronic) R64 Phlebitis of superficial vein of lower extremity (Acute) I80.00 Lung nodule (Chronic) R91.[address] 09/27/2018 done @ [facility]: there is a chronic 6 mm nodule right lower lobe and small nodule in mid left upper lobe unchanged, however a couple new nodules including 6 mm in right upper lobe and in left upper lobe, f/u in 3-4 months recommended Anxiety (Chronic) F41.9 Stage 4 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 (Chronic) J44.9 COPD (chronic obstructive pulmonary disease) (Chronic) J44.9 Nephrolithiasis (Chronic) Chronic respiratory failure with hypoxia and hypercapnia (Chronic) J96.11, J96.12 Malnutrition of moderate degree (Chronic) E44.0 DOUBLE LUNG TRANSPLANT W/BYPASS Burning sensation of feet R20.8 COPD with acute exacerbation J44.1 Left shoulder pain M25.512 Atherosclerotic heart disease of [place] coronary artery without angina pectoris I25.[address] Jarret Maloney @ [facility]: Proximal LAD lesion 20% stenosed, calcified. Mid LAD lesion, 20% stenosied, calcified. Ost Ramus lesion, 99% stenosed, small caliber vessel, not culprit lesion. Proximal lcx: 30% stenosed, calcified. Mid lcx: 40% stenosed, calcified. Proximal RCA, 40% stenosed, eccentric. Mid RCA-1 lesion, 30% stenosed. Mid RCA-2 lesion, 30% stenosed. Hypersomnia G47.10 Herpes zoster B02.9 Surgical History: Past Surgical History (Last Updated 02/16/19 @ 09:26 by Vipul Rincon, NETEZZA DEVELOPER, MARKETING PROFESSOR, BS) H/O right and left heart catheterization (Chronic) Onset Date: 07/13/[address] Jarret Maloney @ [facility]: Proximal LAD lesion 20% stenosed, calcified. Mid LAD lesion, 20% stenosied, calcified. Ost Ramus lesion, 99% stenosed, small caliber vessel, not culprit lesion. Proximal lcx: 30% stenosed, calcified. Mid lcx: 40% stenosed, calcified. Proximal RCA, 40% stenosed, eccentric. Mid RCA-1 lesion, 30% stenosed. Mid RCA-2 lesion, 30% stenosed. Organ or tissue replaced by transplant Z94.9 Status post lung transplantation Z94.2 S/P rotator cuff repair Z98.890 left Status post wrist surgery Z98.890 left shattered left wrist 1984 Family History: Family History (Last Reviewed 11/14/18 @ 11:43 by Barbara Painter) Mother Heart disease Lung disease Sister Lung disease Brother Lung disease Father CAD (coronary artery disease) - Current/ Previous Services Pulmonary Rehab:: Yes - Comments Comments: Patient treated in [place] prior to double lung transplant. He has participated in 9 session of LA at [facility] s/p lung transplant and is released by his surgeon to resume his LA here at [facility] a this time. Social History - Smoking History Smoking Status: Former smoker Years Smokin Packs Smoked per Day: 1 Hx Smoking Cessation Date: 2014 Hx Tobacco Use: No Hx Smoking Exposure: No - Alcohol Use Alcohol Usage: No - Substance Abuse Hx Substance Use: No - Occupation Occupation (List type of work in comments):: Retired - Hobbies, Recreation, Social Activities Hobbies: Walking - Currently is walking 2.5 miles daily with low BPs 110/68 and SpO2 98% room air., Other - rebuild classic cars and play [employer] Recreational Activities: I am able to engage in all my recreational activities Functioning ADL/IADL - Current Ability Current Ability: Independent Self-Care (e.g.,grooming, dressing, & bathing), Independent Ambulation, Independent Transfer, Independent Household tasks (e.g., light meal prep, laundry, shopping) - Pt Functioning Prior to Problem Prior Functioning: Self-Care (e.g.,grooming, dressing, & bathing): Independent, Ambulation: Independent, Transfer: Independent, Household tasks (e.g., light meal prep, laundry, shopping): Independent Social Environment - Status Marital Status: - Current Living Arrangements Living Environment:: Alone - Children How many children do you have?: 1 - son Do any of your children live nearby?: Yes - [place] - Safety Do you feel safe in your surroundings?: Yes - Assistance Do you need any assistance at home?: none Review of Systems Review of Systems: Right click = Denies (Slash). Left click = Reports ([place]) Respiratory: Reports: Pleuritic Pain - chest discomfort/not pain in chest and thoracic region from [facility]., Appetite, Normal, Sleep, Normal. Denies: Cough, SOB at Rest, SOB upon Exertion, Sputum production, Wheezing, Dizziness/Lightheadedness, Fatigue Is Patient Pain Free?: Yes Pain Location: none - Discomfort more than pain. Pain Level: 0/10 Risk Factor Assessment - Chief Complaint Chief Complaint: Daria is 58 yr old male who presents to [place] today following his recent double lung transplant at [facility]. - Vital Signs Temperature: 98.7 F Pulse Rate: 68 Pulse Rhythm: Regular Respiratory Rate: 16 Pulse Ox: 98 Blood Pressure: 108/68 Nailbeds:: normal - Obesity Height: 5 ft 11 in Weight:: 141 lb Weight in Pounds: 141.0 lbs Weight Source: Standing Scale Body Mass Index (BMI): 19.6 Nutritional Referral for Obesity: No - Physical Activity Physical Inactivity: Reg Exercise 30 min/day - Risk Stratification Risk Guidelines: Lowest Risk: Risk Factor for Smoking, Risk Factor for Dyslipidemia, Risk Factor for Diabetes, Risk Factor for Obesity, Risk Factor for Hypertension, Risk Factor for Sedentary Lifestyle, Risk Factor for Depression - For Smoking Smoking Risk Guidelines: Smoking Low Risk: None or quit greater than 6 months ago. Smoking Moderate Risk: Smoker or quit 6 months or less ago. Smoking High Risk: Smoker - For Dyslipidemia Dyslipidemia Risk Guidelines: Low Risk: Moderate Risk: High Risk: 15-25% fat 25.1-29% fat >/= 30% fat. <7% sat fat 7-9% sat fat >9% sat fat. <150 mg chol 150-299 mg chol >/= 300 mg chol. LDL <100 LDL 100-129 LDL >/= 130. Chol/HDL ratio <5.0 Chol/HDL ratio 5.0-6.0 Chol/HDL ratio >6.0. Triglycerides <100 Triglycerides 100-149 Triglycerides >/= 150 - For Diabetes Mellitus Diabetes Risk Guidelines: Diabetes Low Risk: HgA1c <6.5% and/or FBG <120. Diabetes Moderate Risk: HgA1c 6.6-7.9% and/or FBG 120-180. Diabetes High Risk: HgA1c >/= 8% and/or FBG >180 - For Obesity/Overweight Obesity/Overweight Risk Guidelines: Obesity Low Risk: BMI <25.0. Obesity Moderate Risk: BMI 25-29.9. Obesity High Risk: BMI >/= 30.0 - For Hypertension Hypertension Risk Guidelines: Hypertension Low Risk: Systolic <120 and Diastolic <80. Hypertension Moderate Risk: Systolic 120-139 and Diastolic 80-89. Hypertension High Risk: Systolic >/= 140 and Diastolic >/= 90 - For Sedentary Lifestyle Sedentary Lifestyle Risk Guidelines: Sedentary Lifestyle Low Risk: >/= 1,500 kcal/week. Sedentary Lifestyle Moderate Risk: 700-1,499 kcal/week. Sedentary Lifestyle High Risk: < 700 kcal/week - For Depression Depression Risk Guidelines: Depression Low Risk: Not clinically depressed. Depression Moderate Risk: Mildly depressed. Depression High Risk: Clinically depressed Motivation - Motivation to Participate On a scale of 1 to 10, how prepared are you to commit to attending program?: 10 What do you see as barriers to successfully being able to complete the program?: Appointments a nd follow-ups scheduled at [facility] What do you see as the benefits of succesfully completing the program? In other words, what do you hope to get out of participating in the program?: getting strength back Are there issues you are dealing with that will interfere with completing the program?: none Do you have a spouse or signficant other, family or friends who will help support you to complete the program?: yes Diagnostic Data Review - Pulmonary Function Test FEV1:: 3.25 FVC:: 3.75 FEV1/FVC%:: 87
--- NOTE | 2019-02-16 09:08 | PR.HP_ITS ---
History of Present Illness Arrival date:: 02/16/19 Arrival time:: 09:03 Date of Referral:: 02/07/19 Date of Evaluation: 02/16/19 Referring Physician: DR. JENNY METZGER @ [facility] - DR. ANMOL JEFF Primary Diagnosis: S/P DOUBLE LUNG TRANSPLANT W/BYPASS History of Present Illness: PT IS A 58 YR OLD MALE WITH A PRIOR HISTORY OF COPD W/EMPHYSEMA WHO RECENTLY HAD A DOUBLE LUNG TRANSPLANT W/BYPASS DONE AT [facility] IN [place], [place]. THE PATIENT HAS COMPLETED AN INITIAL 9 SESSIONS OF [place] AT [facility] POST OPERATIVE AND HAS BEEN RELEASED TO CONTINUE HIS [place] HERE AT [facility] AT THIS TIME. mMRC Breathless Scale: When is the patient short of breath? Y/N Grade: Description of Breathlessness: 0 I only get breathless with strenuous exercise. 1 I get short of breath when hurrying on level ground or walking up a slight hill. 2 On level ground, I walk slower than people of the same age because of breathless, or have to stop for breath when walking at my own pace. 3 I stop for breath after walking 100 yards or after a few minutes on level ground. 4 I am too breathless to leave the house or I am breathless when dressing. Respiratory Problems: Yes: Able to Speak in Full Sentences, Anxiety No: Retain Secretions, Limited Range of Motion, Fatigue, Wheezing, Dizziness, Dyspnea at Rest, Dyspnea with Activity, Dyspnea Lying Down Flat, Cough with Secretions Home Medications: Home Medications ipratropium-albuterol 0.5 mg-3 mg(2.5 mg base)/3 mL nebulization soln 3 ml INHALATION Q4H ml 10/27/17 lecithin, soy 1,200 mg capsule 1,200 mg PO QDAY 02/06/18 multivitamin with iron tablet 1 tab PO QDAY 02/06/18 Azithromycin 250 mg PO MOWEFR 06/15/18 Ensure Complete 350 ml PO BID 06/15/18 cholecalciferol (vitamin D3) 50,000 unit capsule 50,000 unit PO QWEEK 07/05/18 fluticasone propionate-salmeterol 230 mcg-21 mcg/actuation HFA inhaler 2 puff INHALATION BID #12 g 07/05/18 Simvastatin [Zocor] 40 mg PO QHS 07/28/18 alendronate 70 mg tablet 70 mg PO QWEEK 08/18/18 Disability Placard 0 .ROUTE .MEDSUPPLY #2 ea 09/04/18 aspirin 81 mg tablet,delayed release 81 mg PO DAILY 10/04/18 hydrocodone 5 mg-acetaminophen 325 mg tablet 2 tab PO Q6H PRN 10/04/18 metoprolol tartrate 25 mg tablet 12.5 mg PO BID 10/04/18 tiotropium bromide 18 mcg capsule with inhalation device 1 cap INHALATION DAILY 10/19/18 Acetaminophen [Pain Relief] 650 mg PO Q12H PRN 02/16/19 Amiodarone HCl [Cordarone] 200 mg PO BID 02/16/19 Calcium Citrate/Vitamin D3 [Calcium Citrate - Vit D Caplet] 1 each PO BID 02/16/19 Docusate Sodium [Dulcoease] 100 mg PO BID 02/16/19 Enoxaparin [Lovenox] 60 mg SC BID 02/16/19 Ergocalciferol (Vitamin D2) [Vitamin D2] 50,000 unit PO QWEEK 02/16/19 Ferrous Sulfate [Ferosul] 325 mg PO 02/16/19 Furosemide [Lasix] 20 mg PO BIDLX 02/16/19 Magnesium Oxide [Magox 400] 400 mg PO BID 02/16/19 Mycophenolate Mofetil [Cellcept] 1,000 mg PO BID 02/16/19 Pantoprazole Sodium [Protonix] 40 mg PO DAILY 02/16/19 Prednisone 10 mg PO 02/16/19 Rosuvastatin Calcium [Crestor] 10 mg PO DAILY 02/16/19 Sitagliptin Phosphate [Januvia] 100 mg PO 02/16/19 Sulfamethoxazole/Trimethoprim [Sulfamethoxazole-Tmp Ds Tablet] 3 capsule PO 02/16/19 Tacrolimus [Astagraf Xl] 0.5 mg PO 02/16/19 Valacyclovir HCl [Valacyclovir] 500 mg PO Q12H 02/16/19 Voriconazole [Vfend] 200 mg PO Q12H 02/16/19 Warfarin [Coumadin (PBKC)] 1.5 mg PO DAILY 02/16/19 Allergies/Adverse Reactions: Allergies fluticasone furoate [From Breo Ellipta] Allergy (Severe, Verified 10/19/18 09:00) Other made patient breathe hard and high pulse vilanterol [From Breo Ellipta] Allergy (Severe, Verified 10/19/18 09:00) Other made patient breathe hard and high pulse codeine Allergy (Mild, Verified 10/19/18 09:00) Hives - Secretions Normal Color:: none Hx of Sleep Apnea: No Do you snore loudly (louder than talking or can be heard through closed doors)?: No Do you often feel tired/ fatigued/ sleepy during daytime?: No Has anyone observed you stop breathing during sleep?: No History of Hypertension (for STOP score): No STOP Results: Negative Medical Utilization Do you use a peak flow meter at home?: No Do you use a spacer device with your inhalers?: Yes Number of hospital visits in the last year?: 2 - S/P DOUBLE LUNG TRANSPLANT @ [facility] / LUMBAR FRACTURE Number of emergency room visits in the last year?: 3 - LUMBAR FRACTURES/SOB Do you see your physician on a regular schedule?: Yes How often?: 30 DAYS Advanced Directives - Advanced Directives Power of Bricklayer Sewer: Yes Living Will: Yes Advance Directives Information Provided: No Advance Directives on File: Yes DNR Order?:: No - MOLST See MOLST form: No Past Medical History Medical History: Past Medical History (Last Updated 02/16/19 @ 09:25 by Vipul Rincon, TAXICAB DRIVER, CLINICAL MEDICAL TRANSCRIPTIONIST, BS) Wide-complex tachycardia (Acute) I47.2 4 beat run per48 hour holter done 06/23/2018. Pt also had 62 ventricular ectopic beats, 224 supraventricular beats, 8 atrial couplets, 4 beats of atrial trigeminy and 3 atrial runs comprising of 13 beats. NO atrial fib on holter. Pre-operative cardiovascular examination (Acute) Z01.810 Lung transplant candidate (Chronic) Z76.82 Migraine (Chronic) G43.909 Hypoxia (Chronic) R09.02 Emphysema of lung (Chronic) J43.9 Oxygen dependent (Chronic) Z99.81 Cachexia (Chronic) R64 Phlebitis of superficial vein of lower extremity (Acute) I80.00 Lung nodule (Chronic) R91.[address] 09/27/2018 done @ [facility]: there is a chronic 6 mm nodule right lower lobe and small nodule in mid left upper lobe unchanged, however a couple new nodules including 6 mm in right upper lobe and in left upper lobe, f/u in 3-4 months recommended Anxiety (Chronic) F41.9 Stage 4 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 (Chronic) J44.9 COPD (chronic obstructive pulmonary disease) (Chronic) J44.9 Nephrolithiasis (Chronic) Chronic respiratory failure with hypoxia and hypercapnia (Chronic) J96.11, J96.12 Malnutrition of moderate degree (Chronic) E44.0 DOUBLE LUNG TRANSPLANT W/BYPASS Burning sensation of feet R20.8 COPD with acute exacerbation J44.1 Left shoulder pain M25.512 Atherosclerotic heart disease of [place] coronary artery without angina pectoris I25.[address] Jarret Maloney @ [facility]: Proximal LAD lesion 20% stenosed, calcified. Mid LAD lesion, 20% stenosied, calcified. Ost Ramus lesion, 99% stenosed, small caliber vessel, not culprit lesion. Proximal lcx: 30% stenosed, calcified. Mid lcx: 40% stenosed, calcified. Proximal RCA, 40% stenosed, eccentric. Mid RCA-1 lesion, 30% stenosed. Mid RCA-2 lesion, 30% stenosed. Hypersomnia G47.10 Herpes zoster B02.9 Surgical History: Past Surgical History (Last Updated 02/16/19 @ 09:26 by Vipul Rincon, TAXICAB DRIVER, CLINICAL MEDICAL TRANSCRIPTIONIST, BS) H/O right and left heart catheterization (Chronic) Onset Date: 07/13/[address] Jarret Maloney @ [facility]: Proximal LAD lesion 20% stenosed, calcified. Mid LAD lesion, 20% stenosied, calcified. Ost Ramus lesion, 99% stenosed, small caliber vessel, not culprit lesion. Proximal lcx: 30% stenosed, calcified. Mid lcx: 40% stenosed, calcified. Proximal RCA, 40% stenosed, eccentric. Mid RCA-1 lesion, 30% stenosed. Mid RCA-2 lesion, 30% stenosed. Organ or tissue replaced by transplant Z94.9 Status post lung transplantation Z94.2 S/P rotator cuff repair Z98.890 left Status post wrist surgery Z98.890 left shattered left wrist 1984 Family History: Family History (Last Reviewed 11/14/18 @ 11:43 by Barbara Painter) Mother Heart disease Lung disease Sister Lung disease Brother Lung disease Father CAD (coronary artery disease) - Current/ Previous Services Pulmonary Rehab:: Yes - Comments Comments: Patient treated in [place] prior to double lung transplant. He has participated in 9 session of [place] at [facility] s/p lung transplant and is released by his surgeon to resume his [place] here at [facility] a this time. Social History - Smoking History Smoking Status: Former smoker Years Smokin Packs Smoked per Day: 1 Hx Smoking Cessation Date: 2014 Hx Tobacco Use: No Hx Smoking Exposure: No - Alcohol Use Alcohol Usage: No - Substance Abuse Hx Substance Use: No - Occupation Occupation (List type of work in comments):: Retired - Hobbies, Recreation, Social Activities Hobbies: Walking - Currently is walking 2.5 miles daily with low BPs 110/68 and SpO2 98% room air., Other - rebuild classic cars and play [id number] Recreational Activities: I am able to engage in all my recreational activities Functioning ADL/IADL - Current Ability Current Ability: Independent Self-Care (e.g.,grooming, dressing, & bathing), Independent Ambulation, Independent Transfer, Independent Household tasks (e.g., light meal prep, laundry, shopping) - Pt Functioning Prior to Problem Prior Functioning: Self-Care (e.g.,grooming, dressing, & bathing): Independent, Ambulation: Independent, Transfer: Independent, Household tasks (e.g., light meal prep, laundry, shopping): Independent Social Environment - Status Marital Status: - Current Living Arrangements Living Environment:: Alone - Children How many children do you have?: 1 - son Do any of your children live nearby?: Yes - [place] - Safety Do you feel safe in your surroundings?: Yes - Assistance Do you need any assistance at home?: none Review of Systems Review of Systems: Right click = Denies (Slash). Left click = Reports ([place]) Respiratory: Reports: Pleuritic Pain - chest discomfort/not pain in chest and thoracic region from [facility] surgical procedure., Appetite, Normal, Sleep, Normal. Denies: Cough, SOB at Rest, SOB upon Exertion, Sputum production, Wheezing, Dizziness/Lightheadedness, Fatigue Is Patient Pain Free?: Yes Pain Location: none - Discomfort more than pain. Pain Level: 0/10 Risk Factor Assessment - Chief Complaint Chief Complaint: Daria is 58 yr old male who presents to [place] today following his recent double lung transplant at [facility]. - Vital Signs Temperature: 98.7 F Pulse Rate: 68 Pulse Rhythm: Regular Respiratory Rate: 16 Pulse Ox: 98 Blood Pressure: 108/68 Nailbeds:: normal - Obesity Height: 5 ft 11 in Weight:: 141 lb Weight in Pounds: 141.0 lbs Weight Source: Standing Scale Body Mass Index (BMI): 19.6 Nutritional Referral for Obesity: No - Physical Activity Physical Inactivity: Reg Exercise 30 min/day - Risk Stratification Risk Guidelines: Lowest Risk: Risk Factor for Smoking, Risk Factor for Dyslipidemia, Risk Factor for Diabetes, Risk Factor for Obesity, Risk Factor for Hypertension, Risk Factor for Sedentary Lifestyle, Risk Factor for Depression - For Smoking Smoking Risk Guidelines: Smoking Low Risk: None or quit greater than 6 months ago. Smoking Moderate Risk: Smoker or quit 6 months or less ago. Smoking High Risk: Smoker - For Dyslipidemia Dyslipidemia Risk Guidelines: Low Risk: Moderate Risk: High Risk: 15-25% fat 25.1-29% fat >/= 30% fat. <7% sat fat 7-9% sat fat >9% sat fat. <150 mg chol 150-299 mg chol >/= 300 mg chol. LDL <100 LDL 100-129 LDL >/= 130. Chol/HDL ratio <5.0 Chol/HDL ratio 5.0-6.0 Chol/HDL ratio >6.0. Triglycerides <100 Triglycerides 100-149 Triglycerides >/= 150 - For Diabetes Mellitus Diabetes Risk Guidelines: Diabetes Low Risk: HgA1c <6.5% and/or FBG <120. Diabetes Moderate Risk: HgA1c 6.6-7.9% and/or FBG 120-180. Diabetes High Risk: HgA1c >/= 8% and/or FBG >180 - For Obesity/Overweight Obesity/Overweight Risk Guidelines: Obesity Low Risk: BMI <25.0. Obesity Moderate Risk: BMI 25-29.9. Obesity High Risk: BMI >/= 30.0 - For Hypertension Hypertension Risk Guidelines: Hypertension Low Risk: Systolic <120 and Diastolic <80. Hypertension Moderate Risk: Systolic 120-139 and Diastolic 80-89. Hypertension High Risk: Systolic >/= 140 and Diastolic >/= 90 - For Sedentary Lifestyle Sedentary Lifestyle Risk Guidelines: Sedentary Lifestyle Low Risk: >/= 1,500 kcal/week. Sedentary Lifestyle Moderate Risk: 700-1,499 kcal/week. Sedentary Lifestyle High Risk: < 700 kcal/week - For Depression Depression Risk Guidelines: Depression Low Risk: Not clinically depressed. Depression Moderate Risk: Mildly depressed. Depression High Risk: Clinically depressed Motivation - Motivation to Participate On a scale of 1 to 10, how prepared are you to commit to attending program?: 10 What do you see as barriers to successfully being able to complete the program?: Appointments a nd follow-ups scheduled at [facility] What do you see as the benefits of succesfully completing the program? In other words, what do you hope to get out of participating in the program?: getting strength back Are there issues you are dealing with that will interfere with completing the program?: none Do you have a spouse or signficant other, family or friends who will help support you to complete the program?: yes Diagnostic Data Review - Pulmonary Function Test FEV1:: 3.25 FVC:: 3.75 FEV1/FVC%:: 87
--- NOTE | 2019-02-16 09:23 | PR.ITP_ITS ---
General Information - General Information Admitting Diagnosis: S/P DOUBLE LUNG TRANSPLANT W/BYPASS - PFT FEV1:: 3.25 FVC:: 3.75 FEV1/FVC%:: 87 - Education/Goals Barriers to Learning: None Individual Counseling: Initial Assessment: Dyspnea control techniques at rest, activity, and ADLs, Exacerbation prevention & management, Nutrition & weight management, Safe travel Patient Goals: Breathe better: Initial Assessment, Increase endurance/stamina: Initial Assessment, Return to recreation/hobby: Initial Assessment, Return to work: Initial Assessment, Improve weight: Initial Assessment Exercise - Initial Assessment - Visit Date of Eval: 02/16/19 - Problem/Goals Problems: Deconditioning - Physician Prescribed Exercise Modalities: Treadmill, Airdyne, NuStep Frequency (days/week): 3 Duration (Minutes):: 30-45 Intensity: 60-80% age predicted maximum heart rate reserve METs - Progression: 0.5-1.0 MET, RPE 11-14 WEEK: 3.1 Target Heart Rate:: 106-139 - Plan Plan and Plan to Review:: Benefits of exercise, Core components of exercise, How to measure dyspnea level, How to monitor dyspnea level, Exercise intensity, Exercise safety guideline, Home exercise guidelines, Ozzy: 3-4/11-13 Disease Management - Initial - Problems/Goals-Hypoxemia Hypoxemia Goals:: Using O2 as Rx's safely - Problems/Goals-Medications Medication Goals: Adherence to prescribed medications - Problems/Goals-Bronchial Hygiene Bronchial Hygiene Problems:: Respiratory infection Prevention/Management - Initial Assessment SpO2:: 98 - + Does pt report taking home meds as prescribed?: Yes Medications: Yes MDI, Yes DPI, Yes Spacer Patient Reports:: No cough - Plans Hypoxemia Plan:: Monitor SpO2 rest & with exercise Reviewed prescribed medications:: Purpose, Schedule, Side effects, Importance of compliance Instruct correct technique/timing & care:: MDI, DPI, Nebulizer, Return demo use of inhaler Bronchial Hygiene Plan: Controlled cough, Vibratory PEP device, Hand hygiene, Signs/symptoms to report:, Influenza/Pneumovax vaccines Psychosocial - Initial Assess - Problems/Goals Problems: Impaired Q.O.L. Psychosocial Goals: Improved Q.O.L. - Psychosocial Test Depression:: Impaired QOL Referred to MD for counseling:: No - Plan Reviewed screening results: No Instructions given regarding:: Benefits of exercise, Relaxation techniques, Training in coping strategies Tobacco - Initial Assessment - Program Goals Tobacco Program Goals: Complete smoking cessation. Attend education classes. Improve Knowledge Test score - Stage of Change Stages of Change:: Action - Learning Barriers Learning Barriers: Ready to Learn - Family Support Do you have family support?: Yes - Tobacco Use Tobacco Use: Non-smoker Do you use smokeless tobacco?: No - Intervention Smoking Cessation Referral:: No Individual Education/Counseling:: No Education Schedule Given:: Yes - Education Gave Education Materials For:: Pulmonary Disease, Risk Factors, Breathing Techniques, Medical Compliance, Pulmonary A&P, Exacerbation Signs & Symptoms, Stress & Relaxation Nutrition/Wt Mgmt - Initial - Problems/Goals Problems: Underweight - Weight Management Admit Height:: 5 ft 11 in Admit Weight:: 146 lb Admit BMI:: 20.3 - Diabetes Diabetes:: No Insulin: No Do you monitor your blood sugar at home?: No - Intervention Referral to dietitian:: No Referral to Diabetic Clinic:: No Will attend diet classes:: Yes - Plan Nutrition Plan: Yes Review BMI or WC & identify target wt & strategies for wt control, Yes Education re: Need for ongoing weight monitoring COPD Knowledge Test Initial COPD is a lung disease that:: Makes it hard to breathe & gets worse over time In the [place] the term COPD describes 2 main lung conditions:: Emphysema & chronic bronchitis The most common lung irritant that causes COPD is:: Cigarette smoke Common signs and symptoms of COPD include:: An ongoing cough/cough that produces a large amount of mucus, & SOB If you have COPD, what steps can you take?: All of the above Swelling of the ankles is common in COPD:: False Fatigue [tiredness] is common in COPD:: True Wheezing is common in COPD:: True Crushing chest pain is common in COPD:: False Rapid weight loss is common in COPD:: True Breathlessness is a normal response to exercise: True Exercise should be avoided if it makes you short of breath: False All bronchodilators act within 10 minutes: False A spacer device increases the medication to the lungs: True Annual flu vaccine is recommended for pts w/lung disease: True COPD Knowledge Test Total Score:: 14 COPD Assessment Test [CAT] - Questions Never cough = 0, Cough all the time = 5: 1 No phlegm = 0, Chest full of phlegm = 5: 0 No chest tightness = 0, Chest very tight = 5: 0 No breathless w/exertion = 0, Very breathless w/exertion = 5: 2 No limitations w/activity = 0, Very limited w/activity = 5: 2 Confident leaving home = 0, Not at all confident = 5: 0 Sleep soundly = 0, Don't sleep soundly = 5: 0 Lots of energy = 0, No energy at all = 5: 0 Total CAT score:: 5 Self-Efficacy Initial Assessment We would like to know how confident you are in doing certain activities. Please select your confidence level for:: Select your confidence level for the followin g using the scale 1-10 where 1 is not at all confident and 10 is totally confident. Your score is the average of all 6 responses. Fatigue: How confident are you that you can keep the fatigue caused by your disease from interfering with the things you want to do? Select Number: 10 Physical Discomfort or Pain: How confident are you that you can keep the physical discomfort or pain of your disease from interfering with the things you want to do? Select Number: 10 Emotional Distress: How confident are you that you can keep the emotional distress caused by your disease from interfering with the things you want to do? Select Number: 10 Other Symptoms or Health Problems: How confident are you that you can keep other symptoms or health problems from interfering with the things you want to do? Select Number: 10 Different Tasks and Activities: How confident are you that you can do the different tasks and activities needed to manage your health condition so as to reduce your need to see a doctor? Select Number: 10 Medication: How confident are you that you can do things other than just taking medication to reduce how much your illness affects your everyday life? Select Number: 10 Total Score:: 10 Nutrition Survey - Nutrition Survey Instructions Scoring Instructions: Scoring is as follows: Yes = 1 points. No = 0 point. Patient score that is >/=12 is considered to be at potential nutritional risk and could benefit from a referral to a registered dietitian. - Nutrition Survey Initial Have you lost >10 lbs over the past 2 months without trying?: Yes Are you following a special diet at home for diabetes, low fat, or low salt?: No Are you interested in meeting with a dietitian for help understanding your diet?: No Do you eat less than 3 meals a day?: No Do you eat fatty meats (ocampo, sausage, ribs, etc), fried foods, desserts, large amounts of salad dressings, margarine, butter, or cheese most days?: Yes Do you have food allergies? [Enter types in comment field]: No Do you eat in restaurants more than 3 times a week?: No Do you season food with salt, seasoning salt, or garlic salt?: No Do you used canned, boxed, frozen meals, or soups, seasoning packets?: Yes Total Score:: 3
[2019-02-16 09:39] VITALS: BP 108/68; PULSE 68; RESP 16; TEMP 37.1; O2SAT 98; BMI 19.6
[2019-02-16 09:50] VITALS: O2SAT 98; BMI 20.3
== END | disposition home or self-care (01) ==
PROVIDERS: Family Provider Family Medicine; PCP Family Medicine
DX: Z94.2 Lung transplant status (principal)

== ENCOUNTER → 2019-03-01 | Outpatient (CLI) | payer MEDICARE, MEDICAID, SELFPAY ==
[2019-02-16 09:50] VITALS: BMI 20.3
--- NOTE | 2019-03-01 09:08 | NM_ITS ---
CLINICAL: 58-year-old male status post lung transplant presenting for evaluation of postoperative gastroesophageal reflux disease. SEMI-SOLID PHASE 99m Tc SULFUR COLLOID GASTRIC EMPTYING STUDY COMPARISON: None available FINDINGS: The patient was administered 1.1 mCi of 99m Tc sulfur colloid mixed with oatmeal and consumed per os. Image acquisitions in the anterior-posterior projections were obtained for 60 minutes. There is prompt visualization of the stomach. There is no gastroesophageal reflux identified. First order kinetics are maintained throughout the duration of the acquisitions. The T1/2 linear fit was calculated to be 84.92 minutes, (Normal: 12-56 minutes). NM/Gastric Emptying Study IMPRESSION: 1. ABNORMAL 99m Tc sulfur colloid semi-solid phase (oatmeal) gastric emptying imaging examination. A. There is delayed semi-solid phase gastric emptying compared to normal controls with maintained first order kinetics throughout all components of the examination. (Kaitlyn brown al, J Nucl Med Tech 38: 186, 2010). Electronically Signed: Jarret Reddy DO at 23:07 EDT Tel , Service support ,
== END | disposition home or self-care (01) ==
LOC: NM 08:51
PROVIDERS: Family Provider Family Medicine; PCP Family Medicine
DX: K21.9 Gastro-esophageal reflux disease without esophagitis (principal); Z79.4 Long term (current) use of insulin; Z79.899 Other long term (current) drug therapy
CPT/HCPCS: 78264; A9541

== ENCOUNTER 2019-03-05 08:50 | Outpatient (RCR) | payer MEDICARE, MEDICAID, SELFPAY ==
[2019-02-16 09:50] VITALS: BMI 20.3
[2019-02-19 10:01] LABS: Absolute Lymphocyte Count 0.94 X10^3/ul (0.83-4.51); Absolute Neutrophil Count 4.4 X10^3/uL (2.0-7.7); Basophil# 0.01 X10^3/uL; Basophil% 0.2 % (0-1); Eosinophil# 0.04 X10^3/uL; Eosinophils% 0.7 % (0-5); Hematocrit 38.2 % (40-54); Hemoglobin 12.1 g/dl (13.0-16.5); Lymphocyte # 0.94 X10^3/ul (4.0); Lymphocyte % 15.7 % (19-41); Mean Corp Hgb Conc 31.7 g/gl (32-36); Mean Corpuscular Hgb 34.6 pg (27.0-32.0); Mean Corpuscular Volume 109.1 fL (80-94); Monocyte# 0.52 X10^3/uL; Monocyte% 8.7 % (0-10); Neutrophil # 4.43 X10^3/uL (2.7-7.7); Neutrophil % 73.7 % (47-70); Platelet Count 229 K/mm3 (150-450); RBC Distribution Width CV 20.1 % (11.6-14.6); RBC Distribution Width SD 79.7 fl (35.1-43.9)
[2019-02-19 10:03] LABS: Differential Indicated SCAN CRITERIA MET; POSITIVE COUNT NO; POSITIVE DIFFERENTIAL NO; POSITIVE MORPHOLOGY YES
[2019-02-19 10:17] LABS: BUN 21 mg/dL (7-18); Chloride 108 mmol/L (98-107); Creatinine, Serum 0.91 mg/dL (0.70-1.30); EST Glomerular Filtration Rate 91 mL/min (>60); Est Glom Filt Rate - Afr Amer 110 mL/min (>60); Glucose 105 mg/dL (74-106); Magnesium 1.4 mg/dL (1.6-2.6); Potassium 4.8 mmol/L (3.5-5.1); Sodium Level 140 mmol/L (136-145)
[2019-02-22 10:15] LABS: Absolute Lymphocyte Count 1.32 X10^3/ul (0.83-4.51); Absolute Neutrophil Count 3.6 X10^3/uL (2.0-7.7); Basophil# 0.01 X10^3/uL; Basophil% 0.2 % (0-1); Eosinophil# 0.08 X10^3/uL; Eosinophils% 1.4 % (0-5); Hematocrit 38.9 % (40-54); Hemoglobin 12.2 g/dl (13.0-16.5); Lymphocyte # 1.32 X10^3/ul (4.0); Lymphocyte % 23.9 % (19-41); Mean Corp Hgb Conc 31.4 g/gl (32-36); Mean Corpuscular Hgb 34.7 pg (27.0-32.0); Mean Corpuscular Volume 110.5 fL (80-94); Mean Platelet Vol. 10.1 fl (6.2-12.0); Monocyte# 0.38 X10^3/uL; Monocyte% 6.9 % (0-10); Neutrophil # 3.64 X10^3/uL (2.7-7.7); Neutrophil % 65.8 % (47-70); Platelet Count 241 K/mm3 (150-450); RBC Distribution Width SD 80.4 fl (35.1-43.9); Red Blood Count 3.52 M/mm3 (4.6-6.2); White Blood Count 5.5 K/mm3 (4.4-11.0)
[2019-02-22 10:18] LABS: Differential Indicated SCAN CRITERIA MET; POSITIVE COUNT NO; POSITIVE DIFFERENTIAL NO; POSITIVE MORPHOLOGY YES
[2019-02-22 10:40] LABS: BUN 20 mg/dL (7-18); Chloride 107 mmol/L (98-107); Creatinine, Serum 0.95 mg/dL (0.70-1.30); EST Glomerular Filtration Rate 87 mL/min (>60); Est Glom Filt Rate - Afr Amer 105 mL/min (>60); Glucose 107 mg/dL (74-106); Magnesium 1.6 mg/dL (1.6-2.6); Sodium Level 140 mmol/L (136-145)
[2019-02-23 12:04] LABS: Tacrolimus (FK506) 13.7 ng/mL (2.0-20.0)
[2019-02-26 10:07] LABS: Absolute Lymphocyte Count 0.85 X10^3/ul (0.83-4.51); Absolute Neutrophil Count 2.7 X10^3/uL (2.0-7.7); Basophil# 0.01 X10^3/uL; Basophil% 0.3 % (0-1); Eosinophil# 0.04 X10^3/uL; Hematocrit 38.9 % (40-54); Hemoglobin 12.3 g/dl (13.0-16.5); Lymphocyte # 0.85 X10^3/ul (4.0); Mean Corp Hgb Conc 31.6 g/gl (32-36); Mean Corpuscular Hgb 34.8 pg (27.0-32.0); Mean Corpuscular Volume 110.2 fL (80-94); Mean Platelet Vol. 9.7 fl (6.2-12.0); Monocyte# 0.23 X10^3/uL; Monocyte% 5.9 % (0-10); Neutrophil # 2.68 X10^3/uL (2.7-7.7); Neutrophil % 69.2 % (47-70); Platelet Count 257 K/mm3 (150-450); RBC Distribution Width SD 74.1 fl (35.1-43.9); Red Blood Count 3.53 M/mm3 (4.6-6.2); White Blood Count 3.9 K/mm3 (4.4-11.0)
[2019-02-26 10:12] LABS: Differential Indicated SCAN CRITERIA MET; POSITIVE COUNT NO; POSITIVE DIFFERENTIAL NO; POSITIVE MORPHOLOGY YES
[2019-02-26 10:28] LABS: Anisocytosis 1+; Macrocytosis 1+; Platelet Estimate ADEQUATE (ADEQ)
[2019-02-26 10:37] LABS: Chloride 111 mmol/L (98-107); Creatinine, Serum 1.14 mg/dL (0.70-1.30); EST Glomerular Filtration Rate 70 mL/min (>60); Est Glom Filt Rate - Afr Amer 85 mL/min (>60); Glucose 105 mg/dL (74-106); Magnesium 1.4 mg/dL (1.6-2.6); Sodium Level 142 mmol/L (136-145)
[2019-02-26 13:17] LABS: Tacrolimus (FK506) 17.7 ng/mL (2.0-20.0)
[2019-02-28 13:45] LABS: Tacrolimus (FK506) 19.4 ng/mL (2.0-20.0)
[2019-03-01 10:00] LABS: Absolute Lymphocyte Count 1.25 X10^3/ul (0.83-4.51); Basophil# 0.01 X10^3/uL; Basophil% 0.3 % (0-1); Eosinophil# 0.08 X10^3/uL; Eosinophils% 2.2 % (0-5); Hematocrit 38.6 % (40-54); Hemoglobin 12.3 g/dl (13.0-16.5); Lymphocyte # 1.25 X10^3/ul (4.0); Lymphocyte % 33.6 % (19-41); Mean Corp Hgb Conc 31.9 g/gl (32-36); Mean Corpuscular Hgb 35.3 pg (27.0-32.0); Mean Corpuscular Volume 110.9 fL (80-94); Monocyte# 0.28 X10^3/uL; Monocyte% 7.5 % (0-10); Neutrophil # 2.04 X10^3/uL (2.7-7.7); Neutrophil % 54.8 % (47-70); Platelet Count 279 K/mm3 (150-450); RBC Distribution Width CV 18.7 % (11.6-14.6); RBC Distribution Width SD 76.1 fl (35.1-43.9); Red Blood Count 3.48 M/mm3 (4.6-6.2); White Blood Count 3.7 K/mm3 (4.4-11.0)
[2019-03-01 10:02] LABS: Differential Indicated SCAN CRITERIA MET; POSITIVE COUNT NO; POSITIVE DIFFERENTIAL NO; POSITIVE MORPHOLOGY YES
[2019-03-01 10:24] LABS: Anisocytosis 1+; Macrocytosis RARE
[2019-03-01 10:44] LABS: BUN 22 mg/dL (7-18); Chloride 109 mmol/L (98-107); Creatinine, Serum 1.32 mg/dL (0.70-1.30); EST Glomerular Filtration Rate 59 mL/min (>60); Est Glom Filt Rate - Afr Amer 72 mL/min (>60); Glucose 103 mg/dL (74-106); Magnesium 1.6 mg/dL (1.6-2.6); Potassium 4.8 mmol/L (3.5-5.1); Sodium Level 142 mmol/L (136-145)
[2019-03-03 15:04] LABS: Tacrolimus (FK506) 16.3 ng/mL (2.0-20.0)
[2019-03-05 09:58] LABS: Hematocrit 39.6 % (40-54); Hemoglobin 12.6 g/dl (13.0-16.5); Mean Corp Hgb Conc 31.8 g/gl (32-36); Mean Corpuscular Hgb 34.7 pg (27.0-32.0); Mean Corpuscular Volume 109.1 fL (80-94); Mean Platelet Vol. 10.9 fl (6.2-12.0); Platelet Count 209 K/mm3 (150-450); RBC Distribution Width CV 17.4 % (11.6-14.6); RBC Distribution Width SD 67.4 fl (35.1-43.9); Red Blood Count 3.63 M/mm3 (4.6-6.2)
[2019-03-05 10:01] LABS: POSITIVE COUNT YES; POSITIVE DIFFERENTIAL NO; POSITIVE MORPHOLOGY YES
[2019-03-05 10:02] LABS: Differential Indicated MANUAL DIFF
[2019-03-05 10:31] LABS: BUN 24 mg/dL (7-18); Chloride 109 mmol/L (98-107); Creatinine, Serum 1.12 mg/dL (0.70-1.30); EST Glomerular Filtration Rate 72 mL/min (>60); Est Glom Filt Rate - Afr Amer 87 mL/min (>60); Glucose 106 mg/dL (74-106); Magnesium 1.7 mg/dL (1.6-2.6); Sodium Level 142 mmol/L (136-145)
[2019-03-05 11:13] LABS: Eosinophil 3 % (0-5); Lymphocyte 27 % (19-41); Monocyte 11 % (0-10); Neutrophil-Segmented 59 % (47-70); Platelet Estimate ADEQUATE (ADEQ); Red Cell Morphology NORM C+C NORMAL (NORM C&C); Total Cells Counted 100 (MANUAL DIFF)
[2019-03-05 11:14] LABS: Absolute Lymphocyte Count 0.81 X10^3/ul (0.83-4.51); Absolute Neutrophil Count 1.8 X10^3/uL (2.0-7.7); Lymphocyte # 0.81 X10^3/ul (4.0)
[2019-03-07 10:12] LABS: Pathologist Review Reviewed
[2019-03-09 10:01] LABS: Tacrolimus (FK506) 11.7 ng/mL (2.0-20.0)
== END 2019-03-05 09:50 | disposition home or self-care (01) ==
LOC: LAB 08:50
PROVIDERS: Family Provider Family Medicine; PCP Family Medicine
DX: Z94.2 Lung transplant status (principal); Z48.24 Encounter for aftercare following lung transplant; D89.9 Disorder involving the immune mechanism, unspecified; Z79.899 Other long term (current) drug therapy; R79.9 Abnormal finding of blood chemistry, unspecified; Z51.81 Encounter for therapeutic drug level monitoring
CPT/HCPCS: 36415; 80197; 82374; 82435; 82565; 82947; 83735; 84132; 84295; 84520; 85025; 97150; G0239

== ENCOUNTER → 2019-03-15 | Outpatient (CLI) | payer MEDICARE, MEDICAID, SELFPAY ==
[2018-11-14 11:40] VITALS: BMI 20.2
[2019-02-16 09:50] VITALS: BMI 20.3
[2019-03-15 15:50] LABS: AST(SGOT) 16 U/L (15-37); Alanine Aminotransfer ALT/SGPT 29 U/L (16-61); Albumin, Serum 3.7 g/dL (3.2-5.0); Alkaline Phosphatase 80 U/L (45-117); Anion Gap 8 (5-15); BUN 17 mg/dL (7-18); BUN/Creat Ratio 15.6 RATIO (10-20); Calcium,Total 9.3 mg/dL (8.5-10.1); Chloride 108 mmol/L (98-107); Cholesterol 212 mg/dL (200); Creatinine, Serum 1.09 mg/dL (0.70-1.30); EST Glomerular Filtration Rate 74 mL/min (>60); Est Glom Filt Rate - Afr Amer 90 mL/min (>60); Ferritin 1128 ng/mL (26-388); Globulin 3.6 g/dL (2.2-4.2); Glucose 117 mg/dL (74-106); Iron 46 ug/dL (65-175); Iron Binding Capacity,Total 235 ug/dL (250-450); Magnesium 1.9 mg/dL (1.6-2.6); Phosphorus 2.4 mg/dL (2.5-4.9); Potassium 4.7 mmol/L (3.5-5.1); Protein, Total 7.3 g/dL (6.4-8.2); Sodium Level 141 mmol/L (136-145); Uric Acid 5.2 mg/dL (3.5-7.2)
[2019-03-15 15:54] LABS: Hemoglobin A1c 5.2 % (4.2-6.3)
[2019-03-15 17:02] LABS: Hematocrit 41.6 % (40-54); Hemoglobin 13.4 g/dl (13.0-16.5); Mean Corp Hgb Conc 32.2 g/gl (32-36); Mean Corpuscular Hgb 35.1 pg (27.0-32.0); Mean Corpuscular Volume 108.9 fL (80-94); Mean Platelet Vol. 10.4 fl (6.2-12.0); Platelet Count 245 K/mm3 (150-450); RBC Distribution Width CV 15.6 % (11.6-14.6); Red Blood Count 3.82 M/mm3 (4.6-6.2); White Blood Count 2.4 K/mm3 (4.4-11.0)
[2019-03-15 17:04] LABS: Differential Indicated MANUAL DIFF; POSITIVE COUNT NO; POSITIVE DIFFERENTIAL YES; POSITIVE MORPHOLOGY YES
[2019-03-15 18:30] LABS: Lymphocyte 21 % (19-41); Metamyelocyte 2 % (0-1); Monocyte 4 % (0-10); Neutrophil-Band 4 % (0-5); Neutrophil-Segmented 69 % (47-70); Total Cells Counted 100 (MANUAL DIFF)
[2019-03-15 18:32] LABS: Anisocytosis RARE; Macrocytosis 1+; Platelet Estimate ADEQUATE (ADEQ)
[2019-03-15 18:34] LABS: Absolute Neutrophil Count 1.7 X10^3/uL (2.0-7.7)
[2019-03-19 09:09] LABS: Pathologist Review Reviewed
[2019-03-20 09:07] LABS: Immunoglobulin A 96 mg/dL (90-386); Immunoglobulin G 667 mg/dL (700-1600); Immunoglobulin M 26 mg/dL (20-172)
[2019-03-20 11:47] LABS: CMV by PCR Negative (Negative); Tacrolimus (FK506) 10.1 ng/mL (2.0-20.0); Transferrin 201 mg/dL (200-370)
== END | disposition home or self-care (01) ==
LOC: BFHLAB 13:55
PROVIDERS: Family Provider Family Medicine; PCP Family Medicine; Referring Provider Internal Medicine Critical Care Medicine; Visit Provider Internal Medicine Critical Care Medicine
DX: R79.9 Abnormal finding of blood chemistry, unspecified (principal); Z94.2 Lung transplant status; Z51.81 Encounter for therapeutic drug level monitoring; Z79.899 Other long term (current) drug therapy
CPT/HCPCS: 36415; 80053; 80197; 82465; 82728; 82784; 83036; 83540; 83550; 83735; 84100; 84466; 84550; 85025; 87496

== ENCOUNTER 2019-03-16 08:00 | Outpatient (RCR) | payer MEDICARE, MEDICAID, SELFPAY ==
[2019-02-16 09:50] VITALS: BMI 20.3
== END 2019-03-16 23:59 ==
LOC: PR 08:00
PROVIDERS: Family Provider Family Medicine; PCP Family Medicine
DX: Z94.2 Lung transplant status (principal)
CPT/HCPCS: 97150; G0239

== ENCOUNTER → 2019-03-22 | Outpatient (CLI) | payer MEDICARE, MEDICAID, SELFPAY ==
[2018-11-14 11:40] VITALS: BMI 20.2
[2019-02-16 09:50] VITALS: BMI 20.3
[2019-03-22 12:34] LABS: Absolute Neutrophil Count 1.4 X10^3/uL (2.0-7.7); Basophil# 0.02 X10^3/uL; Basophil% 0.6 % (0-1); Eosinophil# 0.04 X10^3/uL; Eosinophils% 1.2 % (0-5); Hemoglobin 13.4 g/dl (13.0-16.5); Lymphocyte % 47.6 % (19-41); Mean Corp Hgb Conc 31.9 g/gl (32-36); Mean Corpuscular Hgb 35.6 pg (27.0-32.0); Mean Corpuscular Volume 111.7 fL (80-94); Mean Platelet Vol. 10.4 fl (6.2-12.0); Monocyte# 0.24 X10^3/uL; Monocyte% 7.1 % (0-10); Neutrophil # 1.41 X10^3/uL (2.7-7.7); Platelet Count 269 K/mm3 (150-450); RBC Distribution Width CV 15.2 % (11.6-14.6); RBC Distribution Width SD 59.2 fl (35.1-43.9); Red Blood Count 3.76 M/mm3 (4.6-6.2); White Blood Count 3.4 K/mm3 (4.4-11.0)
[2019-03-22 12:38] LABS: Hemoglobin A1c 5.7 % (4.2-6.3)
[2019-03-22 13:15] LABS: ALB/GLOB Ratio 1.1 RATIO (0.9-2.4); AST(SGOT) 21 U/L (15-37); Alanine Aminotransfer ALT/SGPT 30 U/L (16-61); Albumin, Serum 3.4 g/dL (3.2-5.0); Alkaline Phosphatase 76 U/L (45-117); Anion Gap 8 (5-15); BUN 16 mg/dL (7-18); BUN/Creat Ratio 17.7 RATIO (10-20); Calcium,Total 9.2 mg/dL (8.5-10.1); Chloride 109 mmol/L (98-107); Cholesterol 180 mg/dL (200); EST Glomerular Filtration Rate 92 mL/min (>60); Est Glom Filt Rate - Afr Amer 112 mL/min (>60); Ferritin 950 ng/mL (26-388); Globulin 3.2 g/dL (2.2-4.2); Glucose 94 mg/dL (74-106); High Density Lipoprotein 56 mg/dL; Iron 90 ug/dL (65-175); Iron Binding Capacity,Total 238 ug/dL (250-450); Magnesium 1.5 mg/dL (1.6-2.6); Phosphorus 3.3 mg/dL (2.5-4.9); Potassium 4.4 mmol/L (3.5-5.1); Protein, Total 6.6 g/dL (6.4-8.2); Sodium Level 140 mmol/L (136-145); Triglycerides 230 mg/dL; Uric Acid 6.2 mg/dL (3.5-7.2); Very Low Density Lipoprotein 46 mg/dL (5-40); Vitamin D,25 Hydroxy 53.7 ng/mL (29.95-100.01)
[2019-03-22 13:18] LABS: Differential Indicated SCAN CRITERIA MET; POSITIVE COUNT NO; POSITIVE DIFFERENTIAL NO; POSITIVE MORPHOLOGY YES
[2019-03-27 14:07] LABS: Immunoglobulin A 93 mg/dL (90-386); Immunoglobulin G 630 mg/dL (700-1600)
[2019-03-28 11:31] LABS: CMV by PCR Negative (Negative); Immunoglobulin M 26 mg/dL (20-172); Tacrolimus (FK506) 10.4 ng/mL (2.0-20.0); Transferrin 198 mg/dL (200-370)
[2019-04-03 12:33] LABS: Anion Gap 7 (5-15); BUN 17 mg/dL (7-18); Calcium,Total 8.7 mg/dL (8.5-10.1); Chloride 110 mmol/L (98-107); EST Glomerular Filtration Rate 82 mL/min (>60); Est Glom Filt Rate - Afr Amer 99 mL/min (>60); Glucose 103 mg/dL (74-106); Magnesium 1.9 mg/dL (1.6-2.6); Potassium 4.2 mmol/L (3.5-5.1); Sodium Level 142 mmol/L (136-145)
[2019-04-03 12:34] LABS: Absolute Lymphocyte Count 1.33 X10^3/ul (0.83-4.51); Absolute Neutrophil Count 1.6 X10^3/uL (2.0-7.7); Basophil# 0.01 X10^3/uL; Basophil% 0.3 % (0-1); Eosinophil# 0.03 X10^3/uL; Eosinophils% 0.9 % (0-5); Hematocrit 43.4 % (40-54); Lymphocyte # 1.33 X10^3/ul (4.0); Mean Corp Hgb Conc 32.3 g/gl (32-36); Mean Corpuscular Hgb 35.3 pg (27.0-32.0); Mean Corpuscular Volume 109.3 fL (80-94); Mean Platelet Vol. 10.5 fl (6.2-12.0); Monocyte# 0.28 X10^3/uL; Monocyte% 8.6 % (0-10); Neutrophil # 1.56 X10^3/uL (2.7-7.7); Neutrophil % 48.3 % (47-70); Platelet Count 254 K/mm3 (150-450); RBC Distribution Width CV 14.4 % (11.6-14.6); RBC Distribution Width SD 55.6 fl (35.1-43.9); Red Blood Count 3.97 M/mm3 (4.6-6.2); White Blood Count 3.2 K/mm3 (4.4-11.0)
[2019-04-03 12:43] LABS: POSITIVE COUNT NO; POSITIVE DIFFERENTIAL NO; POSITIVE MORPHOLOGY NO
[2019-04-12 12:30] LABS: Anion Gap 7 (5-15); BUN 22 mg/dL (7-18); BUN/Creat Ratio 21.2 RATIO (10-20); Chloride 109 mmol/L (98-107); Creatinine, Serum 1.04 mg/dL (0.70-1.30); EST Glomerular Filtration Rate 78 mL/min (>60); Est Glom Filt Rate - Afr Amer 95 mL/min (>60); Glucose 115 mg/dL (74-106); Magnesium 1.8 mg/dL (1.6-2.6); Potassium 4.7 mmol/L (3.5-5.1); Sodium Level 142 mmol/L (136-145)
[2019-04-12 12:33] LABS: Hematocrit 42.4 % (40-54); Hemoglobin 13.8 g/dl (13.0-16.5); Mean Corp Hgb Conc 32.5 g/gl (32-36); Mean Corpuscular Hgb 35.4 pg (27.0-32.0); Mean Corpuscular Volume 108.7 fL (80-94); Mean Platelet Vol. 10.5 fl (6.2-12.0); Platelet Count 199 K/mm3 (150-450); RBC Distribution Width CV 13.5 % (11.6-14.6); RBC Distribution Width SD 52.8 fl (35.1-43.9); White Blood Count 3.5 K/mm3 (4.4-11.0)
[2019-04-12 12:37] LABS: Differential Indicated MANUAL DIFF; POSITIVE COUNT YES; POSITIVE DIFFERENTIAL NO; POSITIVE MORPHOLOGY YES
[2019-04-12 13:15] LABS: Lymphocyte 49 % (19-41); Monocyte 3 % (0-10); Neutrophil-Band 1 % (0-5); Neutrophil-Segmented 47 % (47-70); Platelet Estimate ADEQUATE (ADEQ); Red Cell Morphology NORM C+C NORMAL (NORM C&C); Total Cells Counted 100 (MANUAL DIFF)
[2019-04-12 13:16] LABS: Absolute Neutrophil Count 1.7 X10^3/uL (2.0-7.7)
[2019-04-15 14:00] LABS: Tacrolimus (FK506) 20.6 ng/mL (2.0-20.0)
== END | disposition home or self-care (01) ==
LOC: LAB.FUTURE 09:45
PROVIDERS: Family Provider Family Medicine; PCP Family Medicine; Referring Provider Internal Medicine Critical Care Medicine; Visit Provider Internal Medicine Critical Care Medicine
DX: E55.9 Vitamin D deficiency, unspecified (principal); R79.9 Abnormal finding of blood chemistry, unspecified; Z84.2 Family history of other diseases of the genitourinary system; Z51.81 Encounter for therapeutic drug level monitoring; Z79.899 Other long term (current) drug therapy
CPT/HCPCS: 36415; 80048; 80053; 80061; 80197; 82306; 82728; 82784; 83036; 83540; 83550; 83735; 84100; 84466; 84550; 85025; 87496

== ENCOUNTER 2019-04-09 08:00 | Outpatient (RCR) | payer MEDICARE, SELFPAY ==
[2019-02-16 09:50] VITALS: BMI 20.3
[2019-03-19 12:45] LABS: BUN 18 mg/dL (7-18); Chloride 108 mmol/L (98-107); Creatinine, Serum 1.03 mg/dL (0.70-1.30); EST Glomerular Filtration Rate 79 mL/min (>60); Est Glom Filt Rate - Afr Amer 96 mL/min (>60); Glucose 98 mg/dL (74-106); Magnesium 1.7 mg/dL (1.6-2.6); Potassium 4.5 mmol/L (3.5-5.1); Sodium Level 143 mmol/L (136-145)
[2019-03-19 12:49] LABS: Hematocrit 40.5 % (40-54); Mean Corp Hgb Conc 32.1 g/gl (32-36); Mean Corpuscular Hgb 35.6 pg (27.0-32.0); Mean Platelet Vol. 10.9 fl (6.2-12.0); Platelet Count 259 K/mm3 (150-450); RBC Distribution Width CV 15.8 % (11.6-14.6); RBC Distribution Width SD 64.4 fl (35.1-43.9); Red Blood Count 3.65 M/mm3 (4.6-6.2)
[2019-03-19 12:51] LABS: Differential Indicated MANUAL DIFF; POSITIVE COUNT YES; POSITIVE DIFFERENTIAL NO; POSITIVE MORPHOLOGY YES
[2019-03-19 13:23] LABS: Neutrophil-Band 1 % (0-5); Neutrophil-Segmented 49 % (47-70); Total Cells Counted 100 (MANUAL DIFF)
[2019-03-19 13:24] LABS: Absolute Neutrophil Count 1.5 X10^3/uL (2.0-7.7); Basophil 1 % (0-1); Eosinophil 1 % (0-5); Lymphocyte 34 % (19-41); Monocyte 13 % (0-10); Myelocyte 1 (0-0); Platelet Estimate ADEQUATE (ADEQ); Red Cell Morphology NORM C+C NORMAL (NORM C&C)
[2019-03-19 13:25] LABS: Absolute Lymphocyte Count 1.02 X10^3/ul (0.83-4.51); Lymphocyte # 1.02 X10^3/ul (4.0)
[2019-03-20 13:59] LABS: Pathologist Review Reviewed
[2019-03-21 13:12] LABS: Tacrolimus (FK506) 9.3 ng/mL (2.0-20.0)
[2019-03-26 12:45] LABS: Hematocrit 41.4 % (40-54); Hemoglobin 12.9 g/dl (13.0-16.5); Mean Corp Hgb Conc 31.2 g/gl (32-36); Mean Corpuscular Hgb 34.8 pg (27.0-32.0); Mean Corpuscular Volume 111.6 fL (80-94); Mean Platelet Vol. 9.9 fl (6.2-12.0); Platelet Count 229 K/mm3 (150-450); RBC Distribution Width SD 58.2 fl (35.1-43.9); Red Blood Count 3.71 M/mm3 (4.6-6.2)
[2019-03-26 12:48] LABS: Differential Indicated MANUAL DIFF; POSITIVE COUNT YES; POSITIVE DIFFERENTIAL NO; POSITIVE MORPHOLOGY YES
[2019-03-26 13:04] LABS: Anion Gap 9 (5-15); BUN 18 mg/dL (7-18); BUN/Creat Ratio 18.8 RATIO (10-20); Calcium,Total 9.4 mg/dL (8.5-10.1); Chloride 107 mmol/L (98-107); Creatinine, Serum 0.96 mg/dL (0.70-1.30); EST Glomerular Filtration Rate 86 mL/min (>60); Est Glom Filt Rate - Afr Amer 104 mL/min (>60); Glucose 99 mg/dL (74-106); Magnesium 1.6 mg/dL (1.6-2.6); Potassium 4.7 mmol/L (3.5-5.1); Sodium Level 140 mmol/L (136-145)
[2019-03-26 13:12] LABS: Basophil 2 % (0-1); Eosinophil 4 % (0-5); Lymphocyte 29 % (19-41); Monocyte 13 % (0-10); Neutrophil-Band 1 % (0-5); Neutrophil-Segmented 51 % (47-70); Platelet Estimate ADEQUATE (ADEQ); Red Cell Morphology NORM C+C NORMAL (NORM C&C); Total Cells Counted 100 (MANUAL DIFF)
[2019-03-26 13:13] LABS: Absolute Neutrophil Count 1.6 X10^3/uL (2.0-7.7)
[2019-03-27 09:12] LABS: Pathologist Review Reviewed
[2019-03-29 09:56] LABS: Tacrolimus (FK506) 10.2 ng/mL (2.0-20.0)
[2019-03-29 12:11] LABS: Hematocrit 43.1 % (40-54); Hemoglobin 13.6 g/dl (13.0-16.5); Mean Corp Hgb Conc 31.6 g/gl (32-36); Mean Corpuscular Hgb 35.3 pg (27.0-32.0); Mean Corpuscular Volume 111.9 fL (80-94); Mean Platelet Vol. 10.3 fl (6.2-12.0); Platelet Count 236 K/mm3 (150-450); RBC Distribution Width CV 14.9 % (11.6-14.6); RBC Distribution Width SD 57.5 fl (35.1-43.9); Red Blood Count 3.85 M/mm3 (4.6-6.2); White Blood Count 3.1 K/mm3 (4.4-11.0)
[2019-03-29 12:20] LABS: Differential Indicated MANUAL DIFF; POSITIVE COUNT YES; POSITIVE DIFFERENTIAL NO; POSITIVE MORPHOLOGY YES
[2019-03-29 12:42] LABS: Anion Gap 5 (5-15); BUN 23 mg/dL (7-18); Calcium,Total 9.8 mg/dL (8.5-10.1); Chloride 107 mmol/L (98-107); Creatinine, Serum 1.28 mg/dL (0.70-1.30); EST Glomerular Filtration Rate 62 mL/min (>60); Est Glom Filt Rate - Afr Amer 75 mL/min (>60); Glucose 97 mg/dL (74-106); Magnesium 1.7 mg/dL (1.6-2.6); Potassium 4.6 mmol/L (3.5-5.1); Sodium Level 140 mmol/L (136-145)
[2019-03-29 12:51] LABS: Basophil 1 % (0-1); Eosinophil 2 % (0-5); Lymphocyte 48 % (19-41); Monocyte 9 % (0-10); Myelocyte 1 (0-0); Neutrophil-Band 1 % (0-5); Neutrophil-Segmented 38 % (47-70); Total Cells Counted 100 (MANUAL DIFF)
[2019-03-29 12:52] LABS: Absolute Neutrophil Count 1.2 X10^3/uL (2.0-7.7); Platelet Estimate ADEQUATE (ADEQ); Red Cell Morphology NORM C+C NORMAL (NORM C&C)
[2019-03-30 12:17] LABS: Pathologist Review Reviewed
[2019-04-01 11:12] LABS: Tacrolimus (FK506) 9.7 ng/mL (2.0-20.0)
[2019-04-09 12:30] LABS: Anion Gap 11 (5-15); BUN 32 mg/dL (7-18); BUN/Creat Ratio 24.2 RATIO (10-20); Calcium,Total 9.5 mg/dL (8.5-10.1); Chloride 106 mmol/L (98-107); Creatinine, Serum 1.32 mg/dL (0.70-1.30); EST Glomerular Filtration Rate 59 mL/min (>60); Est Glom Filt Rate - Afr Amer 72 mL/min (>60); Glucose 104 mg/dL (74-106); Magnesium 2.3 mg/dL (1.6-2.6); Potassium 4.6 mmol/L (3.5-5.1); Sodium Level 141 mmol/L (136-145)
[2019-04-09 12:43] LABS: Hematocrit 41.9 % (40-54); Hemoglobin 13.3 g/dl (13.0-16.5); Mean Corp Hgb Conc 31.7 g/gl (32-36); Mean Corpuscular Hgb 34.7 pg (27.0-32.0); Mean Corpuscular Volume 109.4 fL (80-94); Mean Platelet Vol. 10.3 fl (6.2-12.0); Platelet Count 229 K/mm3 (150-450); RBC Distribution Width CV 14.1 % (11.6-14.6); RBC Distribution Width SD 55.5 fl (35.1-43.9); Red Blood Count 3.83 M/mm3 (4.6-6.2); White Blood Count 3.2 K/mm3 (4.4-11.0)
[2019-04-09 12:48] LABS: Differential Indicated MANUAL DIFF; POSITIVE COUNT YES; POSITIVE DIFFERENTIAL NO; POSITIVE MORPHOLOGY YES
[2019-04-09 13:36] LABS: Lymphocyte 37 % (19-41); Monocyte 13 % (0-10); Neutrophil-Band 2 % (0-5); Neutrophil-Segmented 48 % (47-70); Platelet Estimate ADEQUATE (ADEQ); Red Cell Morphology NORM C+C NORMAL (NORM C&C); Total Cells Counted 100 (MANUAL DIFF)
[2019-04-09 13:38] LABS: Absolute Lymphocyte Count 1.18 X10^3/ul (0.83-4.51); Absolute Neutrophil Count 1.6 X10^3/uL (2.0-7.7); Lymphocyte # 1.18 X10^3/ul (4.0)
[2019-04-11 14:21] LABS: Pathologist Review Reviewed
[2019-04-13 12:09] LABS: Tacrolimus (FK506) 11.6 ng/mL (2.0-20.0)
== END 2019-04-15 23:59 ==
LOC: PR 08:00
PROVIDERS: Family Provider Family Medicine; PCP Family Medicine; Referring Provider Internal Medicine Critical Care Medicine; Visit Provider Internal Medicine Critical Care Medicine
DX: Z94.2 Lung transplant status (principal); Z48.24 Encounter for aftercare following lung transplant; D69.9 Hemorrhagic condition, unspecified; Z79.899 Other long term (current) drug therapy; R79.9 Abnormal finding of blood chemistry, unspecified; Z51.81 Encounter for therapeutic drug level monitoring
CPT/HCPCS: 36415; 80048; 80197; 82374; 82435; 82565; 82947; 83735; 84132; 84295; 84520; 85025; 97150; G0239

== ENCOUNTER 2019-04-16 09:29 | Outpatient (RCR) | payer MEDICARE, MEDICAID, SELFPAY ==
[2019-02-16 09:50] VITALS: BMI 20.3
[2019-04-16 12:09] LABS: Hematocrit 43.1 % (40-54); Hemoglobin 14.1 g/dl (13.0-16.5); Mean Corp Hgb Conc 32.7 g/gl (32-36); Mean Corpuscular Hgb 35.5 pg (27.0-32.0); Mean Corpuscular Volume 108.6 fL (80-94); Mean Platelet Vol. 10.5 fl (6.2-12.0); Platelet Count 242 K/mm3 (150-450); RBC Distribution Width CV 13.8 % (11.6-14.6); RBC Distribution Width SD 54.6 fl (35.1-43.9); Red Blood Count 3.97 M/mm3 (4.6-6.2); White Blood Count 3.3 K/mm3 (4.4-11.0)
[2019-04-16 12:11] LABS: Differential Indicated MANUAL DIFF; POSITIVE COUNT YES; POSITIVE DIFFERENTIAL NO; POSITIVE MORPHOLOGY YES
[2019-04-16 12:17] LABS: Anion Gap 9 (5-15); BUN 26 mg/dL (7-18); BUN/Creat Ratio 24.8 RATIO (10-20); Calcium,Total 9.5 mg/dL (8.5-10.1); Chloride 109 mmol/L (98-107); Creatinine, Serum 1.05 mg/dL (0.70-1.30); EST Glomerular Filtration Rate 77 mL/min (>60); Est Glom Filt Rate - Afr Amer 94 mL/min (>60); Glucose 111 mg/dL (74-106); Magnesium 1.7 mg/dL (1.6-2.6); Potassium 4.6 mmol/L (3.5-5.1); Sodium Level 141 mmol/L (136-145)
[2019-04-16 13:03] LABS: Anisocytosis 1+; Eosinophil 1 % (0-5); Lymphocyte 43 % (19-41); Metamyelocyte 1 % (0-1); Monocyte 8 % (0-10); Myelocyte 1 (0-0); Neutrophil-Band 1 % (0-5); Neutrophil-Segmented 45 % (47-70); Platelet Estimate ADEQUATE (ADEQ); Total Cells Counted 100 (MANUAL DIFF)
[2019-04-16 13:04] LABS: Red Cell Morphology N CHROM NORMAL (NORM C&C)
[2019-04-17 00:37] LABS: Absolute Lymphocyte Count 1.42 X10^3/ul (0.83-4.51); Absolute Neutrophil Count 1.5 X10^3/uL (2.0-7.7)
[2019-04-18 10:06] LABS: Pathologist Review Reviewed
[2019-04-20 13:03] LABS: Hematocrit 41.6 % (40-54); Hemoglobin 13.8 g/dl (13.0-16.5); Mean Corp Hgb Conc 33.2 g/gl (32-36); Mean Corpuscular Hgb 35.8 pg (27.0-32.0); Mean Corpuscular Volume 108.1 fL (80-94); Mean Platelet Vol. 10.1 fl (6.2-12.0); Platelet Count 227 K/mm3 (150-450); RBC Distribution Width CV 13.9 % (11.6-14.6); RBC Distribution Width SD 54.4 fl (35.1-43.9); Red Blood Count 3.85 M/mm3 (4.6-6.2); White Blood Count 3.7 K/mm3 (4.4-11.0)
[2019-04-20 13:09] LABS: Differential Indicated MANUAL DIFF; POSITIVE COUNT YES; POSITIVE DIFFERENTIAL NO; POSITIVE MORPHOLOGY YES
[2019-04-20 13:10] LABS: AST(SGOT) 22 U/L (15-37); Alanine Aminotransfer ALT/SGPT 33 U/L (16-61); Albumin, Serum 3.8 g/dL (3.2-5.0); Alkaline Phosphatase 99 U/L (45-117); Anion Gap 10 (5-15); BUN 26 mg/dL (7-18); Bilirubin, Direct < 0.05 mg/dL (0.00-0.30); Calcium,Total 9.5 mg/dL (8.5-10.1); Chloride 109 mmol/L (98-107); Cholesterol 218 mg/dL (200); Creatinine, Serum 1.24 mg/dL (0.70-1.30); EST Glomerular Filtration Rate 64 mL/min (>60); Est Glom Filt Rate - Afr Amer 77 mL/min (>60); GGTP 83 U/L (15-85); Globulin 3.1 g/dL (2.2-4.2); Glucose 121 mg/dL (74-106); High Density Lipoprotein 49 mg/dL; Magnesium 1.8 mg/dL (1.6-2.6); Potassium 4.4 mmol/L (3.5-5.1); Protein, Total 6.9 g/dL (6.4-8.2); Sodium Level 142 mmol/L (136-145); Triglycerides 292 mg/dL; Uric Acid 6.3 mg/dL (3.5-7.2); Very Low Density Lipoprotein 58 mg/dL (5-40)
[2019-04-20 13:34] LABS: Eosinophil 2 % (0-5); Lymphocyte 28 % (19-41); Metamyelocyte 1 % (0-1); Monocyte 14 % (0-10); Neutrophil-Band 2 % (0-5); Neutrophil-Segmented 53 % (47-70); Total Cells Counted 100 (MANUAL DIFF)
[2019-04-20 13:37] LABS: Differential Comment SCANNED; Platelet Estimate ADEQUATE (ADEQ)
[2019-04-20 13:38] LABS: Absolute Lymphocyte Count 1.04 X10^3/ul (0.83-4.51); Lymphocyte # 1.04 X10^3/ul (4.0); Neutrophil # 2.04 X10^3/uL (2.7-7.7)
[2019-04-20 16:43] LABS: Tacrolimus (FK506) 10.4 ng/mL (2.0-20.0)
[2019-04-23 12:22] LABS: Hemoglobin 13.5 g/dl (13.0-16.5); Mean Corp Hgb Conc 32.9 g/gl (32-36); Mean Corpuscular Hgb 35.4 pg (27.0-32.0); Mean Corpuscular Volume 107.6 fL (80-94); Mean Platelet Vol. 10.4 fl (6.2-12.0); Platelet Count 229 K/mm3 (150-450); RBC Distribution Width CV 13.2 % (11.6-14.6); RBC Distribution Width SD 51.4 fl (35.1-43.9); Red Blood Count 3.81 M/mm3 (4.6-6.2); White Blood Count 3.7 K/mm3 (4.4-11.0)
[2019-04-23 12:32] LABS: Anion Gap 7 (5-15); BUN 20 mg/dL (7-18); BUN/Creat Ratio 18.7 RATIO (10-20); Calcium,Total 8.9 mg/dL (8.5-10.1); Chloride 109 mmol/L (98-107); Creatinine, Serum 1.07 mg/dL (0.70-1.30); EST Glomerular Filtration Rate 76 mL/min (>60); Est Glom Filt Rate - Afr Amer 92 mL/min (>60); Glucose 106 mg/dL (74-106); Magnesium 1.4 mg/dL (1.6-2.6); Potassium 4.3 mmol/L (3.5-5.1); Sodium Level 137 mmol/L (136-145)
[2019-04-23 12:33] LABS: Differential Indicated MANUAL DIFF; POSITIVE COUNT YES; POSITIVE DIFFERENTIAL NO; POSITIVE MORPHOLOGY YES
[2019-04-23 13:44] LABS: Eosinophil 5 % (0-5); Lymphocyte 35 % (19-41); Monocyte 9 % (0-10); Myelocyte 2 (0-0); Neutrophil-Segmented 49 % (47-70); Platelet Estimate ADEQUATE (ADEQ); Red Cell Morphology NORM C+C NORMAL (NORM C&C); Total Cells Counted 100 (MANUAL DIFF)
[2019-04-23 13:45] LABS: Absolute Neutrophil Count 1.8 X10^3/uL (2.0-7.7)
[2019-04-24 09:54] LABS: Pathologist Review Reviewed
[2019-04-25 09:37] LABS: Pathologist Review Reviewed
[2019-04-26 08:10] LABS: CMV by PCR Negative (Negative); Tacrolimus (FK506) 13.3 ng/mL (2.0-20.0)
[2019-05-04 12:16] LABS: Hemoglobin 13.6 g/dL (13.0-16.5); Mean Corp Hgb Conc 33.2 g/dL (32-36); Mean Corpuscular Hgb 35.8 pg (27.0-32.0); Mean Corpuscular Volume 107.9 fL (80-94); Mean Platelet Vol. 10.2 fl (6.2-12.0); NRBC Flagged by Analyzer 0 % (0-5); POSITIVE COUNT YES; POSITIVE MORPHOLOGY YES; Platelet Count 241 K/mm3 (150-450); RBC Distribution Width CV 13.2 % (11.6-14.6); RBC Distribution Width SD 52.8 fl (35.1-43.9); White Blood Count 3.7 K/mm3 (4.4-11.0)
[2019-05-04 12:18] LABS: Differential Indicated MANUAL DIFF
[2019-05-04 12:34] LABS: Anion Gap 7 (5-15); BUN 22 mg/dL (7-18); BUN/Creat Ratio 17.3 RATIO (10-20); Calcium,Total 9.3 mg/dL (8.5-10.1); Chloride 110 mmol/L (98-107); Creatinine, Serum 1.27 mg/dL (0.70-1.30); EST Glomerular Filtration Rate 62 mL/min (>60); Est Glom Filt Rate - Afr Amer 75 mL/min (>60); Glucose 116 mg/dL (74-106); Magnesium 1.8 mg/dL (1.6-2.6); Potassium 4.7 mmol/L (3.5-5.1); Sodium Level 141 mmol/L (136-145)
[2019-05-04 12:54] LABS: Eosinophil 3 % (0-5); Lymphocyte 40 % (19-41); Monocyte 16 % (0-10); Neutrophil-Segmented 41 % (47-70); Total Cells Counted 100 (MANUAL DIFF)
[2019-05-04 12:55] LABS: Macrocytosis 1+
[2019-05-04 12:56] LABS: Absolute Lymphocyte Count 1.46 X10^3/uL (0.83-4.51); Absolute Neutrophil Count 1.5 X10^3/uL (2.0-7.7)
[2019-05-07 12:00] LABS: Pathologist Review Reviewed
[2019-05-08 17:13] LABS: Tacrolimus (FK506) 11.2 ng/mL (2.0-20.0)
== END 2019-05-16 23:59 ==
LOC: BFHLAB 09:29
PROVIDERS: Family Provider Family Medicine; PCP Family Medicine; Referring Provider Internal Medicine Critical Care Medicine; Visit Provider Internal Medicine Critical Care Medicine
DX: Z94.2 Lung transplant status (principal); Z48.24 Encounter for aftercare following lung transplant; D89.9 Disorder involving the immune mechanism, unspecified; Z79.899 Other long term (current) drug therapy; R79.9 Abnormal finding of blood chemistry, unspecified; Z51.81 Encounter for therapeutic drug level monitoring
CPT/HCPCS: 36415; 80048; 80061; 80076; 80197; 82977; 83735; 84100; 84550; 85025; 87496; 97150; G0239

== ENCOUNTER 2019-04-25 08:00 | Outpatient (RCR) | payer MEDICARE, MEDICAID, SELFPAY ==
[2019-02-16 09:50] VITALS: BMI 20.3
[2019-04-26 12:51] LABS: Hematocrit 44.5 % (40-54); Hemoglobin 14.6 g/dl (13.0-16.5); Mean Corp Hgb Conc 32.8 g/gl (32-36); Mean Corpuscular Hgb 34.8 pg (27.0-32.0); Mean Platelet Vol. 10.4 fl (6.2-12.0); Platelet Count 242 K/mm3 (150-450); RBC Distribution Width CV 13.4 % (11.6-14.6)
[2019-04-26 12:55] LABS: Anion Gap 10 (5-15); BUN 23 mg/dL (7-18); BUN/Creat Ratio 17.8 RATIO (10-20); Calcium,Total 9.3 mg/dL (8.5-10.1); Chloride 109 mmol/L (98-107); Creatinine, Serum 1.29 mg/dL (0.70-1.30); EST Glomerular Filtration Rate 61 mL/min (>60); Est Glom Filt Rate - Afr Amer 74 mL/min (>60); Glucose 101 mg/dL (74-106); Magnesium 1.6 mg/dL (1.6-2.6); Potassium 4.3 mmol/L (3.5-5.1); Sodium Level 141 mmol/L (136-145)
[2019-04-26 12:59] LABS: Differential Indicated MANUAL DIFF; POSITIVE COUNT YES; POSITIVE DIFFERENTIAL NO; POSITIVE MORPHOLOGY YES
[2019-04-26 13:39] LABS: Lymphocyte 35 % (19-41); Metamyelocyte 1 % (0-1); Monocyte 9 % (0-10); Myelocyte 2 (0-0); Neutrophil-Segmented 53 % (47-70); Platelet Estimate ADEQUATE (ADEQ); Red Cell Morphology NORM C+C NORMAL (NORM C&C); Total Cells Counted 100 (MANUAL DIFF)
[2019-04-26 13:40] LABS: Absolute Neutrophil Count 2.1 X10^3/uL (2.0-7.7)
[2019-04-27 13:22] LABS: Pathologist Review Reviewed
[2019-05-01 13:21] LABS: Tacrolimus (FK506) 13.6 ng/mL (2.0-20.0)
== END 2019-05-16 23:59 ==
LOC: PR 08:00
PROVIDERS: Family Provider Family Medicine; PCP Family Medicine; Referring Provider Internal Medicine Critical Care Medicine; Visit Provider Internal Medicine Critical Care Medicine
DX: Z94.2 Lung transplant status (principal); Z48.24 Encounter for aftercare following lung transplant; D69.9 Hemorrhagic condition, unspecified; Z79.899 Other long term (current) drug therapy; R79.9 Abnormal finding of blood chemistry, unspecified; Z51.81 Encounter for therapeutic drug level monitoring
CPT/HCPCS: 36415; 80048; 80197; 83735; 85025; 97150; G0239

== ENCOUNTER → 2019-04-30 | Outpatient (CLI) | payer MEDICARE, MEDICAID, SELFPAY ==
[2019-02-16 09:50] VITALS: BMI 20.3
[2019-04-30 12:59] LABS: Absolute Lymphocyte Count 1.25 X10^3/ul (0.83-4.51); Absolute Neutrophil Count 1.6 X10^3/uL (2.0-7.7); Eosinophil# 0.04 X10^3/uL; Eosinophils% 1.1 % (0-5); Hematocrit 42.3 % (40-54); Hemoglobin 13.9 g/dl (13.0-16.5); Lymphocyte # 1.25 X10^3/ul (4.0); Lymphocyte % 34.7 % (19-41); Mean Corp Hgb Conc 32.9 g/gl (32-36); Mean Corpuscular Hgb 35.1 pg (27.0-32.0); Mean Corpuscular Volume 106.8 fL (80-94); Mean Platelet Vol. 10.3 fl (6.2-12.0); Monocyte% 13.9 % (0-10); Neutrophil # 1.62 X10^3/uL (2.7-7.7); Platelet Count 238 K/mm3 (150-450); RBC Distribution Width CV 13.1 % (11.6-14.6); RBC Distribution Width SD 50.9 fl (35.1-43.9); Red Blood Count 3.96 M/mm3 (4.6-6.2); White Blood Count 3.6 K/mm3 (4.4-11.0)
[2019-04-30 13:00] LABS: AST(SGOT) 24 U/L (15-37); Alanine Aminotransfer ALT/SGPT 26 U/L (16-61); Albumin, Serum 3.6 g/dL (3.2-5.0); Alkaline Phosphatase 98 U/L (45-117); Anion Gap 6 (5-15); BUN 25 mg/dL (7-18); BUN/Creat Ratio 22.1 RATIO (10-20); Bilirubin, Direct 0.05 mg/dL (0.00-0.30); Calcium,Total 9.4 mg/dL (8.5-10.1); Chloride 110 mmol/L (98-107); Cholesterol 192 mg/dL (200); Creatinine, Serum 1.13 mg/dL (0.70-1.30); EST Glomerular Filtration Rate 71 mL/min (>60); Est Glom Filt Rate - Afr Amer 86 mL/min (>60); GGTP 93 U/L (15-85); Globulin 3.5 g/dL (2.2-4.2); Glucose 105 mg/dL (74-106); High Density Lipoprotein 51 mg/dL; Magnesium 1.7 mg/dL (1.6-2.6); Phosphorus 2.2 mg/dL (2.5-4.9); Potassium 4.3 mmol/L (3.5-5.1); Protein, Total 7.1 g/dL (6.4-8.2); Sodium Level 140 mmol/L (136-145); Triglycerides 265 mg/dL; Uric Acid 5.8 mg/dL (3.5-7.2); Very Low Density Lipoprotein 53 mg/dL (5-40)
[2019-04-30 13:01] LABS: Differential Indicated SCAN CRITERIA MET; POSITIVE COUNT YES; POSITIVE DIFFERENTIAL NO; POSITIVE MORPHOLOGY NO
[2019-05-04 11:32] LABS: Tacrolimus (FK506) 13.7 ng/mL (2.0-20.0)
== END | disposition home or self-care (01) ==
LOC: BFHLAB 09:05
PROVIDERS: PCP Family Medicine; Visit Provider Family Medicine
DX: R79.9 Abnormal finding of blood chemistry, unspecified (principal); Z79.899 Other long term (current) drug therapy; Z51.81 Encounter for therapeutic drug level monitoring; Z48.24 Encounter for aftercare following lung transplant; Z94.2 Lung transplant status
CPT/HCPCS: 80048; 80061; 80076; 80197; 82977; 83735; 84100; 84550; 85025

== ENCOUNTER → 2019-06-11 | Outpatient (CLI) | payer MEDICARE, SELFPAY ==
[2019-02-16 09:50] VITALS: BMI 20.3
[2019-06-11 18:28] LABS: BNP,B-Type NATRIURETIC PEPTIDE 196.3 pg/mL (0-100)
== END | disposition home or self-care (01) ==
LOC: BFHLAB 14:36
PROVIDERS: Family Provider Family Medicine; PCP Family Medicine; Visit Provider Family Medicine
DX: R60.9 Edema, unspecified (principal); I50.9 Heart failure, unspecified; R09.02 Hypoxemia; Z94.2 Lung transplant status
CPT/HCPCS: 36415; 83880

== ENCOUNTER 2019-09-03 10:04 | Day surgery (SDC) | payer MEDICARE, SELFPAY ==
[2019-07-26 08:31] VITALS: BMI 20.3
[2019-09-03] VITALS (7 sets, daily range): BP systolic 112–138; BP diastolic 71–92; PULSE 68–74; RESP 16; TEMP 36.3–36.5; O2SAT 95–97; BMI 25.4
[2019-09-03] MEDS: Lactated Ringers 1,000 ML 100 ML IV (11:21)
--- NOTE | 2019-09-03 11:30 | RAD_ITS ---
STUDY: Fluoroscopically guided right hip injection. REASON FOR EXAM: Male, 59 years old. Pain. COMPARISON: None. FINDINGS: Fluoroscopic guided right hip injection performed. The radiologist was not present in the room. 2 images were obtained with visualization of contrast opacifying the joint space. The needle is seen in place. Technologist Notes: 5.4 sec 1.19 mGy RAD/Fluoro Guided Needle Placement IMPRESSION: Fluoroscopy guided injection of the right hip. Electronically Signed: Imani Lima MD at 2:13 EST , Service support ,
[2019-09-03] MEDS: Bupivacaine 0.25% 30 ML Vial (11:52)
[2019-09-03] MEDS: MethylPREDNISolone Acetate 80 MG/ML Vial (11:52)
--- NOTE | 2019-09-03 12:41 | PCM.OPRPT ---
Report of Operation Date of Procedure: 09/03/19 Description of Surgical Findings:: PREOPERATIVE DIAGNOSIS: Osteoarthritis of the right hip POSTOPERATIVE DIAGNOSIS: Osteoarthritis of the right hip PROCEDURE PERFORMED: Right hip intraarticular steroid injection under fluoroscopy guidance. ANESTHESIA: MAC. BLOOD LOSS: Minimal. COMPLICATIONS: None. DESCRIPTION OF PROCEDURE: History and physical of today was reviewed. Risks and benefits of the procedure were explained. The patient understood and agreed to proceed. Informed consent was obtained. IV inserted per routine protocol. The patient was taken to the operating room and placed in the supine position. The right hip area was prepped and draped in a sterile fashion using iodine x3. Under fluoroscopy guidance on AP view, the right hip joint was visualized. The skin and subcutaneous tissue was anesthetized with approximately 3 mL of 1% lidocaine using a 25-gauge regular needle approximately 3 cm cephalad to the right greater trochanter. Under direct visualization with fluoroscopy on an AP view, using a 22-gauge 5-inch spinal needle, the needle was advanced via the skin using the lateral approach. The tip of the needle was maneuvered and directed towards the superiormost aspect of the hip joint. Once the tip of the needle was at the vicinity of the joint, after negative aspiration for blood and positive aspiration of synovial fluid, a total of 1 mL of contrast was injected to confirm correct placement of the needle as well as halo spread around the hip joint. After repeated negative aspiration for blood and confirmation on AP as well as oblique view, a total of 10 mL of preservative-free 0.25% Marcaine with 80 mg of Depo-Medrol was injected easily. The needle was then removed intact. The patient experienced no sign or symptoms of intrathecal or intravascular injection. The patient experienced no paresthesia. The procedure was completed without any apparent difficulty or any complications. The patient appeared to tolerate it well. ASSESSMENT AND PLAN: This is a 59-year-old male with osteoarthritis of the right hip status post right hip intra-articular steroid injection under fluoroscopic guidance patient will continue his current medications patient will follow in approximately 2 weeks for reevaluation.
== END 2019-09-03 13:07 | disposition home or self-care (01) ==
LOC: SDC 10:04 → AC 10:23
PROVIDERS: Family Provider Family Medicine; PCP Family Medicine; Referring Provider Anesthesiology Pain Medicine; Visit Provider Anesthesiology Pain Medicine
PROC: 3E0U3GC Introduction of Other Therapeutic Substance into Joints, Percutaneous Approach (ICD-10-PCS; CPT 20610; principal; 2019-09-03 11:25)
DX: M16.11 Unilateral primary osteoarthritis, right hip (principal); M79.10 Myalgia, unspecified site; M54.6 Pain in thoracic spine; F41.9 Anxiety disorder, unspecified; J44.9 Chronic obstructive pulmonary disease, unspecified; F17.210 Nicotine dependence, cigarettes, uncomplicated; Z87.442 Personal history of urinary calculi; Z87.898 Personal history of other specified conditions; Z79.82 Long term (current) use of aspirin; Z79.891 Long term (current) use of opiate analgesic; Z79.52 Long term (current) use of systemic steroids; Z79.899 Other long term (current) drug therapy
CPT/HCPCS: 20610; 76000; 77002; J7120; A4216

== ENCOUNTER → 2019-09-21 10:48 | Outpatient (CLI) | payer MEDICARE, SELFPAY ==
[2019-09-03 11:06] VITALS: BMI 25.4
--- NOTE | 2019-09-22 08:46 | SPIR_ITS ---
Spirometry PFT Testing Spirometry PFT Testing: INTRODUCTION: The patient is a 59-year-old male that presents for pulmonary function testing secondary to a diagnosis of lung transplantation. Respiratory therapy reports good patient effort. INTERPRETATION: Forced expiration spirometry revealed evidence of a mild large airways obst ructive ventilatory defect with an FEV1 of 72% of predicted. IMPRESSION: Mild large airways obstructive ventilatory defect.
== END ==
PROVIDERS: Family Provider Family Medicine; PCP Family Medicine
DX: R94.2 Abnormal results of pulmonary function studies (principal); D89.9 Disorder involving the immune mechanism, unspecified; Z94.2 Lung transplant status; Z79.899 Other long term (current) drug therapy
CPT/HCPCS: 94010

== ENCOUNTER → 2019-11-07 09:36 | Outpatient (CLI) | payer MEDICARE, MEDICAID, SELFPAY ==
[2019-09-03 11:06] VITALS: BMI 25.4
--- NOTE | 2019-11-07 09:40 | MRI_ITS ---
STUDY: MRI BILATERAL HIPS T PELVIS REASON FOR EXAM: Right groin and low back pain. TECHNIQUE: Standardized fat and water weighted pulse sequences were obtained in all 3 orthogonal planes. COMPARISON: Fluoroscopic images 09/03/2019 of the right hip. FINDINGS: RIGHT HIP There is chondral thinning of the right hip (T2 sagittal image 41). There is a right hip joint effusion (T2 axial images 26-30). There is subchondral bone edema of the right acetabulum (inversion recovery coronal images 13-18). Normal right labrum. There is avascular necrosis of the right femoral head with subchondral collapse (T1 coronal images 13-17) and mild bone edema extending into the femoral neck (inversion recovery coronal images 12-17). Normal right gluteus minimus, medius and iliopsoas tendons and distal insertions. Normal right superior and inferior pubic rami. Normal right pubic symphysis. Normal right ischial tuberosity. Normal origin of the right hamstring tendons. Normal visualized right iliac wing, sacroiliac joint, and sacral ala. There is mild edema in the proximal right gluteus medius muscle (inversion recovery coronal images 12-14). There is mild bone edema in the right obturator externus muscle (T2 axial images 32-34). LEFT HIP Normal left hip joint without articular joint space narrowing. Normal left acetabulum. Normal left labrum. Normal left femoral head. Normal left femoral neck and intratrochanteric region. Normal left gluteus minimus, medius and iliopsoas tendons and distal insertions. Normal left superior and inferior pubic rami. Normal left pubic symphysis. Normal left ischial tuberosity. Normal origin of the left hamstring tendons. Normal visualized left iliac wing, sacroiliac joint, and sacral ala. Status post vertebroplasty at L4 (T1 coronal images 13-15). MRI/Pelvis (Routine) IMPRESSION: Avascular necrosis of the right femoral head with subchondral collapse and mild bone edema. Right hip arthrosis with subchondral bone edema of the right acetabulum and joint effusion. Low-grade strains of the proximal right gluteus medius muscle and right obturator externus muscle. No demonstrated avascular necrosis of the left femoral head. Electronically Signed: Raul Guthrie MD at 11:25 EST Tel , Service support ,
== END ==
PROVIDERS: PCP Family Medicine; Referring Provider Anesthesiology Pain Medicine; Visit Provider Anesthesiology Pain Medicine
DX: R10.31 Right lower quadrant pain (principal)
CPT/HCPCS: 72195

== ENCOUNTER → 2019-11-13 | Outpatient (CLI) | payer MEDICARE, MEDICAID, SELFPAY ==
[2019-09-03 11:06] VITALS: BMI 25.4
--- NOTE | 2019-11-13 12:38 | RAD_ITS ---
ACR Level 3 findings have been noted. An addendum which confirms receipt of the report will follow. STUDY: X-RAY - LUMBAR SPINE REASON FOR EXAM: Male, 59 years old. LOW BACK PAIN S/P FALL; -- H/O COMPRESSION FRACTURES TECHNIQUE: 5 view(s) of the lumbar spine were obtained. COMPARISON: Lumbar spine x-ray 09/21/2018 FINDINGS: Normal lumbar lordosis. There is no substantial scoliosis. There is a normal alignment of the vertebrae. There is kyphoplasty of the L2 and L4 vertebral bodies. There is stable, chronic collapse of the L2 superior endplate with anterior wedging and moderate loss of vertebral body height. There is mild collapse of the L3 superior endplate centrally, this is new since prior exam. There is stable, mild collapse of the L4 superior endplate with anterior wedging and mild loss of vertebral body height. Normal disc space heights. The soft tissue structures are unremarkable. There is aortobiiliac atherosclerotic disease. RAD/L/S Spine Min 4 Views IMPRESSION: Mild collapse of the L3 superior endplate centrally is new since prior exam and may represent an acute fracture in the proper clinical setting. Stable appearance of the L2 and L4 chronic compression fractures postkyphoplasty. Electronically Signed: Maris Vieyra, at 14:00 EST Tel , Service support ,
== END | disposition home or self-care (01) ==
LOC: RAD 12:36
PROVIDERS: PCP Family Medicine; Referring Provider Anesthesiology Pain Medicine; Visit Provider Anesthesiology Pain Medicine
DX: M48.56XA Collapsed vertebra, not elsewhere classified, lumbar region, initial encounter for fracture (principal)
CPT/HCPCS: 72110

== ENCOUNTER 2019-12-03 10:40 | Day surgery (SDC) | payer MEDICARE, MEDICAID, SELFPAY ==
[2019-09-03 11:06] VITALS: BMI 25.4
[2019-12-03] VITALS (7 sets, daily range): BP systolic 102–127; BP diastolic 70–94; PULSE 74–82; RESP 16; TEMP 36.3–37.5; O2SAT 91–95; BMI 26.6
--- NOTE | 2019-12-03 | BON_PTH ---
PATIENT: NICK HERNÁNDEZ LOC: [facility] – [place] U#:[id number] AGE/SX: 59/M ROOM: RE12/03/[address]: Dr. Hany Ramires MD : [id number] BED: DIS: 12/03/2019 SPEC #: [id number] RECD: 12/03/19 13:37 STATUS: VERONICA REQ #: [id number] JALEEL: 12/03/19 00:[address]: Hany Ramires DEPT: SURGICAL PATHOLOGY RECD BY: Javi Rogers ENTERED: 12/03/19 13:37 SP TYPE: Bone OTHR DR: Dr. Mary Loja DO Tissues: Vertebra, NOS Procedures: Decalcification bone/plaque Surgery Specimen Level IV HEADER OPERATION: Kyphoplasty L3 PRE-OP DIAGNOSIS: Compression fracture lumbar spine L3 TISSUE SUBMITTED: L3 bone biopsy MICROSCOPIC DIAGNOSIS L3 bone biopsy: A piece of bone with reactive changes, negative for malignancy, clinically compression fracture lumbar spine L3. SJ:sammi 12/05/19 COMMENT Please make reference to previous specimen ([id number]) L4, kyphoplasty and L2, kyphoplasty and (S1989) vertebral body, T7, kyphoplasty with diagnosis of a piece of bone with reactive changes. MICROSCOPIC DESCRIPTION Slides are reviewed. GROSS DESCRIPTION Received in fixative is one container labeled with the patient's name and designated L3 bone biopsy. The specimen consists of an elongated piece of bone measuring 1 cm in length and 0.2 cm in diameter. The specimen is submitted in one cassette after decalcification. / EMMANUEL:sammi 12/03/19 TC:5 CPT: 92356, 89243
[2019-12-03] MEDS: Lactated Ringers 1,000 ML 100 ML IV (11:40)
--- NOTE | 2019-12-03 12:12 | RAD_ITS ---
STUDY: X-RAY - LUMBAR SPINE REASON FOR EXAM: Male, 59 years old. KYPHOPLASTY L3 TECHNIQUE: 13 view(s) of the lumbar spine were obtained. Spot fluoroscopy images. COMPARISON: None FINDINGS: L3 kyphoplasty performed. Previous L2 and L4 kyphoplasty is noted. Please see performing physician''s report for further details RAD/Spine 1 View Any Level IMPRESSION: As above Electronically Signed: Ayad Schaefer DO at 10:17 EST Tel , Service support ,
[2019-12-03] MEDS: Cefazolin 2 GM in 0.9% Normal Saline 100 ML IV (12:20)
[2019-12-03] MEDS: Bupivacaine Mpf 0.5% 30 ML VIAL (12:34)
[2019-12-03] MEDS: Bacitracin 500 UNITS/GM PACKET (12:42)
--- NOTE | 2019-12-03 13:10 | OP.PCM_ITS ---
Report of Operation Date of Procedure: 12/03/19 Description of Surgical Findings:: PROCEDURES: 1. Nona balloon kyphoplasty at the L3 level 2. Insertion of Nona HV-R bone cement under low pressure at the L3 Level 3. Bone biopsy at L3 4. Fluoroscopic guidance and interpretation of images PREOPERATIVE DIAGNOSES: Osteoporosis, compression fracture of L3 POSTOPERATIVE DIAGNOSES: Osteoporosis, compression fracture of L3 ANESTHESIA: MAC COMPLICATIONS: None BLOOD LOSS: Minimal PROCEDURE IN DETAIL: History and physical today was reviewed. Risks and benefits of procedure explained. The patient understood, agreed to procedure, informed consent was obtained. IV inserted per routine protocol. The patient was taken to the operating room, placed in the prone position with a pillow positioned underneath the chest. A 2 g of Ancef IV piggyback was infused per anesthesia. The upper and middle back area was prepped and draped in a sterile fashion using iodine x3. Under direct visualization with fluoroscopy with the C-arm, which brought into position on AP as well as lateral view at the L3 level., the L3 pedicle was then identified. In the view of the collapsed L3, a transpedicular approach to the vertebral body was appropriate. Starting on the left side at L3 level, skin and subcutaneous tissue in size approximately 10 cc of a mixture of 1% lidocaine and 0.5% Marcaine using a 25-gauge needle followed by 25-gauge 3-1/2 inch spinal needle towards the pedicle of L3 and the periosteum an 11-gauge needle was advanced through the L3 pedicle through the junction of the pedicle and the vertebral body on the left side. Position was then confirmed on AP as well as lateral view. Following satisfactory placement of the needle to make sure it is further off the midline and interlaminar space. the 11-gauge trocar was advanced approximately 3 mm from the anterior cortex on the lateral view. AP and lateral images were then taken to verify position and trajectory of the needle. The introducer was then advanced through the pedicle. Once the trocar was at the junction of the pedicle and the vertebral body, a lateral image was taken to ensure that the cannula was positioned approximately 1 cm past the vertebral body and a lateral image was then taken to ensure correct position and through the cannula, a drill was then advanced into the vertebral body under fluoroscopic guidance towards the anterior cortex creating a channel. The anterior cortex were then probed with guide pen to ensure no perforation in the anterior cortex. After completion of the entry into the vertebral body, a 15 mm inflatable bone tamp was then inserted through the cannula and advanced under direct fluoroscopic guidance into the vertebral body near the anterior cortex., The biopsy was then taken at the L3 level. After completion of the entry into the vertebral body, a balloon tamp utilizing radiopaque marker bands on the bone tamp were identified using AP and lateral images. The above sequence of instrument placement was then repeated on the left side at the L3 vertebral body. Once both bone tamps were in position, they were inflated to approximately 4 mL and making sure that the pressure is not passing 250 psi. Expansion of the bone tamp was then done sequentially in an increments of 0.25 to 0.5 mL of contrast with a careful attention was being paid to the inflation pressure and the balloon position. The inflation was then monitored on AP and lateral view images. The final balloon volume was 3.8 mL on the left side L3 level. There was no breach of the lateral wall or the anterior cortex of the vertebral body. Direct reduction of the fracture was then achieved. Endplate movement was then noticed and approximately 7 mm of the height adventism was achieved at L3 . Under fluoroscopic imaging and a bone void filler, internal fixation was achieved through a low pressure injection of a Nona HV-R bone cement. The cavity was then filled with a total volume of 6.4 mL on the left side at L3 level. Once the bone cement had hardened, the cannula was then removed. Once the cannula was removed and satisfactory hemostasis was maintained, the incision as then closed with a 4-0 Vicryl at the skin. The patient was kept in the prone position for approximately 10 minutes post-cement injection. The patient was then turned into supine position, monitored briefly and returned to PACU. The patient was moving both of his lower extremities at the same time without any apparent neurological deficits. Throughout the procedure, there were no intraoperative complications, Motor as well as sensory exam was unchanged from prior to procedure. ESTIMATED BLOOD LOSS: Minimal less than 25 mL ASSESSMENT AND PLAN: This is a 59-year-old male with compression fracture of L3, osteoporosis, status post Nona balloon kyphoplasty at 3 and insertion of [place] HV-R bone cement under low pressure at L3 level and bone biopsied at L3. The patient will continue his current medication. The patient will follow-up in approximately 1 week for re- evaluation, postop instructions were provided to the patient as well as his verbally as well as in writing.
== END 2019-12-03 13:40 | disposition home or self-care (01) ==
LOC: SDC 10:41 → AC 10:42
PROVIDERS: PCP Family Medicine; Referring Provider Anesthesiology Pain Medicine; Visit Provider Anesthesiology Pain Medicine
PROC: (CPT 20225; principal; 2019-12-03 12:45)
DX: M54.5 Low back pain (principal); S32.039A Unspecified fracture of third lumbar vertebra, initial encounter for closed fracture; M81.0 Age-related osteoporosis without current pathological fracture; J44.9 Chronic obstructive pulmonary disease, unspecified; Z94.2 Lung transplant status; Z87.442 Personal history of urinary calculi; Z87.891 Personal history of nicotine dependence; Z79.82 Long term (current) use of aspirin; Z79.891 Long term (current) use of opiate analgesic; Z79.899 Other long term (current) drug therapy; W22.09XA Striking against other stationary object, initial encounter; Y93.E1 Activity, personal bathing and showering; Y92.002 Bathroom of unspecified non-institutional (private) residence as the place of occurrence of the external cause; Y99.8 Other external cause status
CPT/HCPCS: 01936; 20225; 22514; 72020; 76000; 88305; 88311; J7120

== ENCOUNTER → 2019-12-21 | Outpatient (CLI) | payer MEDICARE, MEDICAID, SELFPAY ==
[2019-12-03 11:22] VITALS: BMI 26.6
--- NOTE | 2019-12-21 10:26 | RAD_ITS ---
HISTORY: Right hip pain since July. Comparison study is MRI of the pelvis from November 07, 2019. Findings: Avascular necrosis of the right femoral head with subluxation and remodeling as its impact on the roof of the right acetabulum is the same. Atherosclerotic plaque persists. The left hip is minimally narrowed at its joint space without bony remodeling or fracture. RAD/HIP, UNI W/ Pelvis 2-3 Views IMPRESSION: No evidence for significant progression of avascular necrosis to the right femoral head with bony remodeling to the right acetabulum. at 0601 Reported and signed by: Trae Wong MD Electronically Signed: Trae Wong MD at 5:59 EST Tel , Service support ,
== END | disposition home or self-care (01) ==
LOC: HPRAD 10:26
PROVIDERS: PCP Family Medicine; Referring Provider Orthopaedic Surgery; Visit Provider Orthopaedic Surgery
DX: M25.551 Pain in right hip (principal)
CPT/HCPCS: 73502

== ENCOUNTER → 2020-01-01 | Outpatient (CLI) | payer MEDICARE, MEDICAID, SELFPAY ==
[2019-12-21 10:38] VITALS: BMI 26.6
--- NOTE | 2020-01-01 12:58 | CT_ITS ---
STUDY: CT SCAN LOWER EXTREMITY RIGHT REASON FOR EXAM: Male, 59 years old. RT HIP [place]. 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 Prior and quot;cement and quot; placed in vertebral bodies. RADIATION DOSAGE (If Supplied By Facility): CTDIvol = ( 15.81 ) mGy, DLP = ( 967.53 ) mGycm. Individualized dose optimization techniques were used for this CT.? TECHNIQUE: Multiple axial tomographic images of the both hips and knee joints were obtained. COMPARISON: Comparison is made with prior radiograph of the right hip dated December 21, 2019. FINDINGS: There is deformity of the right hip with findings suggestive of prior collapse of the superior lateral aspect of the right femoral head most likely secondary to avascular necrosis. Once again, there is evidence of the remodeling and subluxation of the right lateral femoral head due to the impact on the roof of the right acetabulum. There is evidence of a femoral acetabular impingement of the right hip joint. Mild degree of the joint space narrowing involving the medial compartment of the knee joints bilaterally. There is evidence of a prior vertebroplasty of the L4 vertebrae. CT/Extremity Lower without Contra IMPRESSION: Compression deformity of the right femoral head with collapse suggestive of avascular necrosis. Electronically Signed: Jian Allen, at 14:43 EDT , Service support ,
== END | disposition home or self-care (01) ==
LOC: CT 12:58
PROVIDERS: PCP Family Medicine; Referring Provider Orthopaedic Surgery; Visit Provider Orthopaedic Surgery
DX: M16.11 Unilateral primary osteoarthritis, right hip (principal)
CPT/HCPCS: 73700

== ENCOUNTER → 2020-02-27 | Outpatient (CLI) | payer MEDICARE, MEDICAID, SELFPAY ==
[2020-02-26 09:50] VITALS: BMI 28.6
--- NOTE | 2020-02-27 11:03 | ECHOCS_ITS ---
Reason For Study: PRE OPERATIVE EXAM Procedure This was a 2D Doppler, Color Flow transthoracic echocardiogram. The study was technically difficult. Due to body habitus/lung transplant surgery. Contrast injection was performed. Exam performed in department. Left Ventricle Normal size and thickness. The estimated ejection fraction is 65 %. Stage 2 diastolic dysfunction. No regional wall motion abnormalities noted. Right Ventricle Normal size and thickness. Normal systolic function. Atria Normal left atrium. Normal right atrium. Normal atrial septum. Mitral Valve The mitral valve is structurally normal. No prolapse or stenosis seen. Tricuspid Valve Normal tricuspid valve. Unable to estimate RV systolic pressure due to insufficient tricuspid regurgitant envelope. Aortic Valve Trisinus/trileaflet aortic valve. Mild focal aortic valve thickening. There is no aortic stenosis. Pulmonic Valve Normal pulmonic valve. Great Vessels Normal aortic root. Normal arch. Normal inferior vena cava. Inferior vena cava collapse with sniff. Pericardium/Pleural No pericardial effusion. Medication 22 gauge I.V. with prn adaptor inserted into right arm. Diluted definity 2.0ml given slow IV push to enhance endocardial definition. MMode/2D Measurements & Calculations LVIDd: 4.6 cm IVSd: 0.88 cm Ao root diam: 3.5 cm LVIDs: 2.8 cm LVPWd: 0.86 cm FS: 37.8 % LAV(MOD-bp): 53.3 ml LA A4 area: 17.5 cm2 LA dimension(2D): 4.7 cm LAV(MOD-bp) Indexed: 25.0 ml/m2 LAV(MOD-sp2): 52.1 ml LAV(MOD-sp4): 49.7 ml RA A4 area: 9.1 cm2 Time Measurements MV dec time: 0.13 sec Doppler Measurements & Calculations MV E max erik: 81.2 cm/sec Lat Peak E' Erik: 4.9 cm/sec Med Peak E' Erik: 10.6 cm/sec MV A max erik: 63.7 cm/sec E/E' lat: 16.6 E/E' med: 7.7 MV E/A: 1.3 Ao V2 max: 106.0 cm/sec LV V1 max: 98.7 cm/sec PA V2 max: 67.8 cm/sec Ao max P.5 mmHg LV V1 max P.9 mmHg Interpretation Summary The estimated ejection fraction is 65 %. Stage 2 diastolic dysfunction. Unable to estimate RV systolic pressure due to insufficient tricuspid regurgitant envelope. The study was technically difficult. There is no comparison study available. Contrast injection was performed. Ordering Physician: Kristofer Alfaro Referring Physician: Mary Loja Performed By: Parisa Kowalski, RANDALL, RVT
[2020-02-27 13:15] LABS: Magnesium 1.8 mg/dL (1.6-2.6)
[2020-02-27 13:18] LABS: AST(SGOT) 23 U/L (15-37); Alanine Aminotransfer ALT/SGPT 49 U/L (16-61); Alkaline Phosphatase 81 U/L (45-117); Bilirubin, Direct 0.15 mg/dL (0.00-0.30); Cholesterol 185 mg/dL (200); Globulin 3.1 g/dL (2.2-4.2); High Density Lipoprotein 57 mg/dL; Protein, Total 7.1 g/dL (6.4-8.2); Triglycerides 172 mg/dL; Very Low Density Lipoprotein 34 mg/dL (5-40)
== END | disposition home or self-care (01) ==
PROVIDERS: Anesthesiology; PCP Family Medicine; Referring Provider Internal Medicine Cardiovascular Disease; Visit Provider Internal Medicine Cardiovascular Disease
DX: E78.5 Hyperlipidemia, unspecified (principal); I25.10 Atherosclerotic heart disease of native coronary artery without angina pectoris; I47.2 Ventricular tachycardia; Z94.2 Lung transplant status
CPT/HCPCS: 36415; 80061; 80076; 83735; 93306; Q9957; A4216; C8929

== ENCOUNTER → 2020-02-29 | Outpatient (CLI) | payer MEDICARE, MEDICAID, SELFPAY ==
[2020-02-26 09:50] VITALS: BMI 28.6
--- NOTE | 2020-02-29 10:55 | STEWCON_ITS ---
Reason For Study: PREOP Stress Results Protocol: Dobutamine Stress Echo With Definity Maximum Predicted HR: 163 bpm Target HR: 139 bpm % Maximum Predicted HR: 77 % DurationHeart Rate Stage (mm:ss) (bpm) BP Dose Comment BASELINE 68 140/77 7 CC DEFINITY FOR TEST STAGE 1 3:41 68 142/94 10.00 STAGE 2 3:00 76 175/86 20.00 STAGE 3 3:00 81 180/96 30.00NO CHEST PAIN STAGE 4 7:00 126 154/49903.001 MG ATROPINE RECOVERY 100 124/90 Stress Duration: 16:41 mm:ss Maximum Stress HR: 126 bpm Baseline Echocardiogram Findings The estimated ejection fraction is 65 %. Stress Echo Wall motion Data Resting WM Intermediate WM Stress WM Resting Wall Motion Wall Motion Stress No regional wall motion No regional wall motion abnormalities noted. abnormalities noted. EKG Data The baseline ECG displays normal sinus rhythm. The patient was titrated from 10 mcg to a maximum of 40 mcg of dobutamine during the stress. The maximum heart rate attained was 133 beats per minute. This was 81% of maximum predicted heart rate. During dobutamine infusion, there were no ST or T wave changes noted to suggest ischemia. No clinical angina was noted. Interpretation Summary The estimated ejection fraction is 65 %. Normal, adequate, dobutamine echocardiogram. Negative for ischemia by EKG and echocardiographic criteria. No anginal symptoms noted. Rare PVC noted. Appropriate blood pressure response to dobutamine. Test terminated due tomaximum effusion. Although patient was unable to reach 85% of target heart rate, his rate-pressure product of 22,692 provided this to be a good test. Final LVEF is 75%. Decrease sensitivity due to poor echo windows requiring Definity agent. No complications. The study was technically difficult. A transesophageal echocardiogram is recommended. Ordering Physician: Kristofer Alfaro Referring Physician: Kristofer Alfaro Performed By: Angella Sheppard, JESSACS, RVT
== END | disposition home or self-care (01) ==
LOC: CVS 10:55
PROVIDERS: PCP Family Medicine; Referring Provider Internal Medicine Cardiovascular Disease; Visit Provider Internal Medicine Cardiovascular Disease
DX: Z01.810 Encounter for preprocedural cardiovascular examination (principal); I25.10 Atherosclerotic heart disease of native coronary artery without angina pectoris; I47.2 Ventricular tachycardia; Z94.2 Lung transplant status
CPT/HCPCS: 93017; 93350; J7040; Q9957; A4216; C8928

== ENCOUNTER 2020-03-06 13:19 | Observation (INO) | payer MEDICARE, MEDICAID, SELFPAY ==
[2019-12-21 10:38] VITALS: BMI 26.6
--- NOTE | 2020-02-14 15:32 | EKG12_ITS ---
Test Reason : PREOP Blood Pressure : / mmHG Vent. Rate : 092 BPM Atrial Rate : 092 BPM P-R Int : 130 ms QRS Dur : 082 ms QT Int : 350 ms P-R-T Axes : 053 090 -42 degrees QTc Int : 432 ms Normal sinus rhythm ST & T wave abnormality, consider inferior ischemia Abnormal ECG Confirmed by KIP CUNHA, ADRIEL ([id number]), desk editor HUMBERTO CLAY ([id number]) on 02/18/2020 2:40:16 PM Referred By: Jossue Arevalo Confirmed By:NIRAJ SHIN MD
[2020-02-14 15:46] LABS: Hematocrit 42.6 % (40-54); Hemoglobin 13.9 g/dL (13.0-16.5); Mean Corp Hgb Conc 32.6 g/dL (32-36); Mean Corpuscular Hgb 33.7 pg (27.0-32.0); Mean Corpuscular Volume 103.4 fL (80-94); Mean Platelet Vol. 9.9 fl (6.2-12.0); Platelet Count 221 K/mm3 (150-450); RBC Distribution Width CV 12.3 % (11.6-14.6); RBC Distribution Width SD 46.5 fl (35.1-43.9); Red Blood Count 4.12 M/mm3 (4.6-6.2); White Blood Count 7.2 K/mm3 (4.4-11.0)
[2020-02-14 16:04] LABS: Anion Gap 8 (5-15); BUN 25 mg/dL (7-18); BUN/Creat Ratio 15.3 RATIO (10-20); Calcium,Total 9.7 mg/dL (8.5-10.1); Chloride 108 mmol/L (98-107); Creatinine, Serum 1.63 mg/dL (0.70-1.30); EST Glomerular Filtration Rate 46 mL/min (>60); Est Glom Filt Rate - Afr Amer 56 mL/min (>60); Glucose 136 mg/dL (74-106); Potassium 4.8 mmol/L (3.5-5.1); Sodium Level 141 mmol/L (136-145)
[2020-02-14 17:41] LABS: M R Staph aureus DNA By PCR Negative (Negative); Probe Check PASS; Specimen Processing Control PASS
--- NOTE | 2020-02-26 10:34 | HP_ITS ---
HPI HPI History of Present Illness Surgical H&P: Yes Details: Details: NICK HERNÁNDEZ, is a 59 M who presents to the office today for follow-up in cardiac risk ratification for upcoming hip surgery. He was originally referred to us for evaluation for lung transplant by [facility] for stage IV COPD. Patient is a previous smoker of approximately 25 pack years and quit around 4 years ago. Patient has been on chronic O2 therapy for the last [address] Vitale for his COPD. Patient is a nondiabetic, nonhypertensive, with hypercholesterolemia and documented coronary artery disease by catheterization at [facility] on 07/14/18. At that time he was found to have 20% proximal mid LAD stenosis, and ostial 99% stenosis in a small vessel, too small for PCI, 30-40% proximal and mid left circumflex stenosis respectively, and 30-40% diffuse disease in his proximal mid RCA. His right heart pressures were normal cardiac output was 4.97 L/min by Usman. PA saturation was 71%. In addition he underwent a 2D echo with Doppler on 06/13/18 which was technically difficult, EF of 55%, normal diastolic function, normal RV size and function, unable to quantitate RVSP. In addition he underwent a 48-hour Holter monitor on 06/23/18 which showed 62 ventricular ectopic beats including one wide-complex ventricular run of 4 beats. This precipitated his left heart catheterization. The patient reports that prior to his catheterization and being placed on aspirin and beta-blockers, the patient complained of substernal chest pain however since his catheterization and placement of beta-tanisha and aspirin he has had no further chest pain. Patient underwent bilateral lung transplant on 12/11/2018 d at [facility] without complications. Patient has completed pulmonary rehab, continues to exercise about 30 minutes/day without any difficulty or symptoms. Patient now returns for cardiac re-stratification of upcoming hip surgery. He denies any chest pain, angina, shortness of breath or dyspnea on exertion. He is taking and tolerating his medicines well. His hip injury occurred around July 2019, and has been progressively getting worse. He is unable to walk on a treadmill. In our office today's blood pressure is 120/70, pulse is 72 and regular. Physical exam shows very distant breath sounds bilaterally, no crackles, regular rate and rhythm, normal S1/S2, no murmurs are noted. No edema. EKG dated 11/14/17 showed normal sinus rhythm, normal axis, normal intervals, no previous myocardial infarction. EKG dated 02/14/2020 shows normal sinus rhythm with inferior and lateral ST segment depression and T wave inversion also seen on EKG today, 02/26/2020. His lipids as of showed an LDL of 192 and HDL of 64 and triglycerides of 94. At that time he was placed on statin based medications however he has not had a repeat lipid profile to his knowledge. Repeat lipids dated 04/30/2019 show an LDL of 88 and HDL of 51. Repeat lipids are pending. Intake Vital Signs 02/26/20 Height 5 ft 11 in 02/26/20 Weight: 205 lb 6 oz 02/26/20 BMI 28.6 02/26/20 BP 120/70 02/26/20 Blood Pressure Location Lt brachial 02/26/20 Position Sitting 02/26/20 Respiration 20 H 02/26/20 Pulse 72 02/26/20 Pulse Source Auscultation Intake Visit Reasons: *COME IN* SURG CLEAR (BORRUSO) [employer]r Required: No Is patient in pain?: No Allergies fluticasone furoate [From Breo Ellipta] Allergy (Severe, Verified 02/19/20 16:10) Other vilanterol [From Breo Ellipta] Allergy (Severe, Verified 02/19/20 16:10) Other codeine Allergy (Mild, Verified 02/19/20 16:10) Hives Medications multivitamin with iron 1 tab PO QDAY 02/06/18 [History Confirmed 02/26/20] Azithromycin 250 mg PO MOWEFR 06/15/18 [History Confirmed 02/26/20] alendronate 70 mg tablet 70 mg PO QWEEK 08/18/18 [History Confirmed 02/26/20] aspirin 81 mg tablet,delayed release 81 mg PO DAILY 10/04/18 [History Confirmed 02/26/20] Acetaminophen [Pain Relief] 650 mg PO Q12H PRN 02/16/19 [History Confirmed 02/26/20] Calcium Citrate/Vitamin D3 [Calcium Citrate - Vit D Caplet] 1 ea PO BID 02/16/19 [History Confirmed 02/26/20] Ergocalciferol (Vitamin D2) [Vitamin D2] 50,000 unit PO QWEEK 02/16/19 [History Confirmed 02/26/20] Magnesium Oxide [Magox 400] 800 mg PO BID 02/16/19 [History Confirmed 02/26/20] Mycophenolate Mofetil [Cellcept] 1,000 mg PO BID 02/16/19 [History Confirmed 02/26/20] Pantoprazole Sodium [Protonix] 40 mg PO DAILY 02/16/19 [History Confirmed 02/26/20] Rosuvastatin Calcium [Crestor] 10 mg PO QHS 02/16/19 [History Confirmed 02/26/20] Sitagliptin Phosphate [Januvia] 100 mg PO DAILY 02/16/19 [History Confirmed 02/26/20] Sulfamethoxazole/Trimethoprim [Sulfamethoxazole-Tmp Ds Tablet] 1 tab PO MOWEFR 02/16/19 [History Confirmed 02/26/20] allopurinol 100 mg tablet 100 mg PO QHS 07/26/19 [History Confirmed 02/26/20] carvedilol 6.25 mg tablet 25 mg PO BID 07/26/19 [History Confirmed 02/26/20] gabapentin 400 mg capsule 400 mg PO BID 07/26/19 [History Confirmed 02/26/20] prednisone 5 mg tablet 5 mg PO DAILY 07/26/19 [History Confirmed 02/26/20] sildenafil 50 mg tablet 50 mg PO DAILY PRN 07/26/19 [History Confirmed 02/26/20] Tacrolimus 2 mg PO DAILY 08/29/19 [History Confirmed 02/26/20] Tacrolimus 2 mg PO QHS 01/01/20 [History Confirmed 02/26/20] hydrocodone 10 mg-acetaminophen 325 mg tablet 1 tab PO BID PRN 01/25/20 [History Confirmed 02/26/20] Amlodipine [Norvasc] 2.5 mg PO DAILY 02/14/20 [History Confirmed 02/26/20] gabapentin 800 mg tablet 800 mg PO 1500 PRN 02/26/20 [History Confirmed 02/26/20] [facility] Medical History Pre-operative cardiovascular examination (Acute) Hyperlipidemia (Chronic) Wide-complex tachycardia (Resolved) Migraine (Chronic) Anxiety (Chronic) History of kidney stones (Chronic) Atherosclerotic heart disease of [place] coronary artery without angina pectoris (Chronic) Hypersomnia (Chronic) Burning sensation of feet (Resolved) COPD (chronic obstructive pulmonary disease) (Resolved) COPD with acute exacerbation (Resolved) Cachexia (Resolved) Chronic respiratory failure with hypoxia and hypercapnia (Resolved) Compression fracture of L2 lumbar vertebra (Resolved) Compression fracture of L4 lumbar vertebra (Resolved) Compression fracture of T7 vertebra (Resolved) Emphysema of lung (Resolved) Herpes zoster (Resolved) Hypoxia (Resolved) Left shoulder pain (Resolved) Lung nodule (Resolved) Lung transplant candidate (Resolved) Malnutrition of moderate degree (Resolved) Nephrolithiasis (Resolved) Oxygen dependent (Resolved) Phlebitis of superficial vein of lower extremity (Resolved) Pre-operative cardiovascular examination (Resolved) Stage 4 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 (Resolved) Stage 4 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 (Resolved) Screen for colon cancer (Ruled-out) Surgical History Status post lung transplantation (Chronic 12/11/18) H/O right and left heart catheterization (Chronic 07/13/18) Organ or tissue replaced by transplant (Acute) S/P rotator cuff repair (Chronic) Status post wrist surgery (Chronic) shattered left wrist (Resolved) Family History Mother Heart disease Lung disease Sister Lung disease Brother Lung disease Father CAD (coronary artery disease) Social History (Updated 02/26/20 @ 10:[address] Kristofer Alfaro MD) Smoking Status: Former smoker quit date: 10/17/13 pack-years: 25 Tobacco: How many years used: 25 second hand exposure: No alcohol intake: never substance use type: does not use what type of physical activity do you participate in: walking, weight training frequency: daily ROS Const Const: Positive for other (Had lung transplant @ [facility] 12/11/2018. Now needs rt hip replacement.); negative for fatigue, weakness, body ache, fever(s), headache(s), chills, frequent falls, night sweats, daytime sleepiness, difficulty sleeping, excessive sweating, weight gain, weight loss, increased appetite, poor appetite or anorexia Eyes Eyes: Negative for blind spots, loss of peripheral vision, transient loss of vision, blurry vision, change in vision, double vision, floaters, tunnel vision or other ENT ENT: Negative for headache(s), dizziness, hearing loss, tinnitus, Nosebleed/epistaxis, balance problems, post nasal drip, lip swelling, tongue swelling, bleeding gums, hoarseness, neck pain, dry mouth or other Cardio Chest Pain: No Palpitations: No Edema: None Muscle aches with walking: None Resp Respiratory: Negative for SOB with activity, SOB at rest, SOB orthopnea\SOB lying down, Cough, Coughing up blood/hemoptysis, chest congestion, pain on inspiration, snoring, stridor, wheezing, crackles, paroxysmal nocturnal dyspnea or other GI GI: Negative nausea, vomiting, heartburn, constipation, belching, bloating, cramping, vomiting blood/hematemesis, bright, red blood in stools, black,tarry stools, loose stools, Difficulty Swallowing or other : Negative for hematuria, frequent nighttime urination/ nocturia, erectile dysfunction or abnormal vaginal bleeding Musc Musc: Positive for joint pain (Needs right hip replaced.); negative for muscle aches/ myalgia, muscle weakness or balance problems Skin Skin: Negative redness, non-healing lesions, rash, unusual bruising, skin ulcer, wounds, jaundice or other Neuro Neuro: Negative for dizziness, lightheadedness, near syncope, syncope, orthostatic symptoms, frequent falls, headache(s), weakness, confusion, memory loss, restless legs, blurry vision, double vision, vertigo, seizures, lack of coordination or other [place] Hematologic/Lymphatic: Negative for easy bleeding, easy bruising, enlarged lymph nodes or other Endo Endo: Negative for fatigue, cold intolerance, heat intolerance, excessive sweating, flushing, increased thirst/drinking, increased hunger, hair loss, hair growth or other Psych Psych: Negative for anxiety, depression, thoughts of harming anyone, thoughts of harming yourself, visual hallucinations, panic attacks or audible hallucinations Allergy Allergy/Immunology: Negative for throat swelling, Negative for tongue swelling, Negative for hives, Negative for rash, Negative for lip swelling Cardiology Exam Const Appearance: cooperative, healthy appearing and no acute distress Nutritional Appearance: well nourished Orientation: alert, oriented x3 and oriented to person Head Head: normal to inspection, normocephalic and atraumatic Nose: external nose normal Face and Sinus: face symmetric Mouth: oral mucosae normal Eyes General: appearance normal, both eyes and all related structures Eyelids: eyelids normal Conjunctivae: conjunctivae normal Pupils: PERRL and normal by confrontation EOM: EOM intact bilaterally Neck Neck: normal visual inspection and full ROM Carotids: normal carotid upstroke Chest Chest inspection: normal inspection of the chest Auscultation: Bilateral: Clear to Auscultation Cardio Palpation: normal PMI Rate: regular rate Rhythm: regular rhythm Heart sounds: S1 normal and S2 normal GI GI: normal to inspection, no hepatosplenomegaly and bowel sounds present Neuro General: alert, awake, oriented x3, CN's II-XI intact bilaterally and moves all extremities Skin Skin: no rashes or lesions noted Extremities Pulses: Normal: Right Femoral Pulse, Left Femoral Pulse, Right Dorsalis Pedis Pulse, Left Dorsalis Pedis Pulse, Right Posterior Tibial Pulse, Left Posterior Tibial Pulse, Right Radial Pulse, Left Radial Pulse Lower Extremity Edema: None: Bilateral Psych Psychological: normal affect Assessment & Plan 1. Pre-operative cardiovascular examination Z01.810 Plan 1. Preoperative or stratification: The patient has known nonobstructive coronary disease as diagnosed by catheterization in June 2018. Patient did well postoperatively after bilateral lung transplant and has had no anginal symptoms. He now requires right hip replacement surgery due to tacrolimus induced hip deterioration. I recommended the patient undergo a 2D echo with Doppler to document his LV function and more importantly his pulmonary pressures given his recent bilateral lung transplant. In addition I recommended he undergo a dobutamine echocardiogram to evaluate for possible coronary ischemia. If either 1 of these are grossly abnormal for ischemia he may require a repeat left heart catheterization prior to his hip surgery. If however, his stress test is negative, he will be deemed at low risk for noncardiac surgery. In the meantime he will continue his amlodipine, baby aspirin, carvedilol through the surgery. Orders Orders: 12 Lead EKG performed by [facility] Today Echo Complete Today Stress Test Echo W/Contrast Today 2. Hyperlipidemia E78.5 Plan 2. Hyperlipidemia: Repeat lipids are pending. Continue Crestor. Orders Orders: Lipid Profile Today Liver Profile Today 3. Status post lung transplantation Z94.[address] Edmra Ramirez, [facility]: Bilateral lung transplant Plan 3. Status post lung transplantation: Patient was recently tested for COVID-19, which came back negative. He has had no fevers, chills, decreased O2 saturation, or change in his breathing status. I recommended he undergo a repeat updated 2D echo with Doppler to evaluate his LV function and more importantly his pulmonary pressures. 4. Return office in 6 months. This note was generated using a voice recognition system and there may be incorrect words, spelling or punctuation that were not noted when reviewing the office note prior to saving. Orders Orders: 12 Lead EKG performed by [facility] Today Echo Complete Today Stress Test Echo W/Contrast Today Plan Detail Other Orders Orders: 12 Lead EKG performed by [facility] Today I47.2 Echo Complete Today I25.10, I47.2 Stress Test Echo W/Contrast Today I25.10, I47.2 Follow Up +6MK (Dominic) Coding Level of Care Code Off vis,est,level 3 Diagnoses Pre-operative cardiovascular examination Z01.810 Hyperlipidemia E78.5 Status post lung transplantation Z94.2 Coding Level of Care Code Off vis,est,level 3 Diagnoses Pre-operative cardiovascular examination Z01.810 Hyperlipidemia E78.5 Status post lung transplantation Z94.2 Supplemental Info Supplemental Information Labs LDL Cholesterol 88 mg/dL (0-130) 04/30/19 HDL Cholesterol 51 mg/dL (40-) 04/30/19 Triglycerides 265 mg/dL (-199) H 04/30/19 VLDL Cholesterol 53 mg/dL (5-40) H 04/30/19 Diagnostics Electrocardiogram 02/26/20 Stress Echocardiogram 12/05/18 Chest X-Ray 11/14/17 Pulmonary Pulmonary Function Test 09/22/19 Pulmonary Exercise Test 11/12/17 02/26/20 1035 <Electronically signed by Kristofer Alfaro MD> Date _ Kristofer Alfaro MD
[2020-03-03 11:12] VITALS: BMI 28.6
[2020-03-06] VITALS (10 sets, daily range): BP systolic 128–149; BP diastolic 75–94; PULSE 59–96; RESP 16–18; TEMP 35.9–36.8; O2SAT 97–100; BMI 28.0
[2020-03-06] MEDS: Lactated Ringers 1,000 ML 125 ML IV (07:00)
[2020-03-06] MEDS: Lactated Ringers 1,000 ML 100 ML IV (07:00)
[2020-03-06 10:04] LABS: Magnesium 1.5 mg/dL (1.6-2.6)
--- NOTE | 2020-03-06 10:15 | PCM.HP.BLA ---
History and Physical Date of Admission: 03/06/20 Intake Intake Visit Reasons: RIGHT HIP Is patient in pain?: Yes Allergies fluticasone furoate [From Breo Ellipta] Allergy (Severe, Verified 03/03/20 11:12) Other vilanterol [From Breo Ellipta] Allergy (Severe, Verified 03/03/20 11:12) Other codeine Allergy (Mild, Verified 03/03/20 11:12) [facility] [place] [facility] Medical History (Updated 02/26/20 @ 10:21 by Barbara Painter) Atherosclerosis of coronary artery of [place] heart without angina pectoris (Chronic) Pre-operative cardiovascular examination (Acute) Hyperlipidemia (Chronic) Wide-complex tachycardia (Resolved) Migraine (Chronic) Anxiety (Chronic) History of kidney stones (Chronic) Atherosclerotic heart disease of [place] coronary artery without angina pectoris (Chronic) Hypersomnia (Chronic) Burning sensation of feet (Resolved) COPD (chronic obstructive pulmonary disease) (Resolved) COPD with acute exacerbation (Resolved) Cachexia (Resolved) Chronic respiratory failure with hypoxia and hypercapnia (Resolved) Compression fracture of L2 lumbar vertebra (Resolved) Compression fracture of L4 lumbar vertebra (Resolved) Compression fracture of T7 vertebra (Resolved) Emphysema of lung (Resolved) Herpes zoster (Resolved) Hypoxia (Resolved) Left shoulder pain (Resolved) Lung nodule (Resolved) Lung transplant candidate (Resolved) Malnutrition of moderate degree (Resolved) Nephrolithiasis (Resolved) Oxygen dependent (Resolved) Phlebitis of superficial vein of lower extremity (Resolved) Pre-operative cardiovascular examination (Resolved) Stage 4 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 (Resolved) Stage 4 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 (Resolved) Screen for colon cancer (Ruled-out) Surgical History Status post lung transplantation (Chronic 12/11/18) H/O right and left heart catheterization (Chronic 07/13/18) Organ or tissue replaced by transplant (Acute) S/P rotator cuff repair (Chronic) Status post wrist surgery (Chronic) shattered left wrist (Resolved) Social History (Updated 03/03/20 @ 12:[address] Jossue Arevalo DO) Smoking Status: Former smoker quit date: 10/17/13 pack-years: 25 Tobacco: How many years used: 25 second hand exposure: No alcohol intake: never substance use type: does not use what type of physical activity do you participate in: walking, weight training frequency: daily HPI RIGHT HIP: Details: Parts of this documentation were recorded by a scribe, this documentation accurately reflects the service provided and the decisions made by me, Dr. Jossue Arevalo, 03/03/20 0755. NICK HERNÁNDEZ is a 59 year old M here today for right hip pain. Patient notes that he continues to have pain. He has pain deep in his groin and posterior hip. He has decreased hip range of motion. He ambulates with crutches due to his pain. Patient ntoes that he had EKGs last week and everything came back normal. He is taking norco for pain and he has a pain patch. He is taking 2 norco 10/325 in the morning. ROS Musc Reports joint pain, Reports limited joint movement, Reports stiffness Skin/Breast Reports system reviewed and no additional complaints, except as docu Neuro Yes system reviewed and no additional complaints, except as docu Ortho Exam Right Hip Skin: Yes CDI, No Ecchymosis, No Erythema HIP: good ankle ROM, no palpable loss of sensation Right Hip Skin: Yes CDI, No Ecchymosis, Yes soft tissue swelling (possibly), No Erythema Special Tests: Yes pain with log roll Homans Sign: No HIP: no signs of infection or mass, hip range of motion elicits severe groin pain Supplemental Info 12/21/2019 x-ray right hip: femoral head avascular necrosis with subchondral collapse significant leg length shortening Assessment & Plan Problems 1. Avascular necrosis of bone of right hip M87.051 2. Primary osteoarthritis of right hip M16.11 Plan Spoke with the patient about the COTY procedure and recovery. He will begin outpatient PT following his surgery. Spoke with him about the risks of segundo Covid19 and the risks of a ventilator and . he understands the risks that are even more significant for him with his medial history and he wishes to assume this risk given his on going progressing worsening symptoms that are significantly affecting his activities of daily living and requiring high doses of narcotic to control. Explained he will have hip precautions following his surgery. Patient voiced understanding and wanted to proceed with surgery. Risks, benefits and alternatives of surgery reviewed including but not limited to bleeding, infection, nerve, artery and/or tissue damage, fracture, VTE, leg length discrepancy, dislocation, need for hip precautions, continued pain and expected post-operative course. Follow up in 2 weeks or sooner if pain, swelling, numbness or associated symptoms, or concerns develop. All questions answered. Patient in agreement of plan. Coding Level of Care Code Off vis,est,level 3 Diagnoses Avascular necrosis of bone of right hip M87.051 Primary osteoarthritis of right hip M16.11 ??Osteoarthritis type: primary I have re-examined the patient. There are no clinical changes since date of exam Essential Procedure Criteria Procedure Essential: Yes Criteria Note: In addition to standard risk risk of COVID-19 exposure and potential consequences including respiratory failure ventilation and patient wishes to assume this risk secondary to ongoing progressive worsening symptoms that are limiting activities of daily living. Risk to Patient if Procedure Delayed: Presence of severe symptoms causing an inability to perform ADL's
[2020-03-06] MEDS: Gabapentin 600 MG Tablet PO (10:22)
[2020-03-06] MEDS: Scopolamine 1mg/72hr Patch 1 PATCH TRANSDERM. (10:22)
[2020-03-06] MEDS: Acetaminophen 500 MG Tablet 1000 MG PO ×2 (10:30→21:24)
[2020-03-06 11:06] LABS: Bedside Glucose 139 mg/dL (70-110)
[2020-03-06] MEDS: Cefazolin 2 GM in 0.9% Normal Saline 100 ML IV (11:09)
--- NOTE | 2020-03-06 13:21 | RAD_ITS ---
STUDY: X-RAY - PELVIS AND RIGHT HIP REASON FOR EXAM: Male, 59 years old. Post op right total hip TECHNIQUE: 2 views of the pelvis and hip. COMPARISON: None. FINDINGS: There is a non-specific bowel gas pattern. A few coarse calcifications project in the area of the prostate gland. Normal visualized bilateral iliac wings, sacroiliac joints, and sacrum. Normal bilateral superior and inferior pubic rami. Normal pubic symphysis. Normal bilateral ischial tuberosities. The patient has undergone right total hip arthroplasty. Following resection of the femoral head and neck, a minimal bipolar prosthesis was placed. Metal screw passes through the acetabular prosthesis into the roof of the [place] acetabulum. Acetabular and femoral prostheses appear well seated, and in anatomic alignment. Gas lucencies overlying and near the hip are consistent with recent surgery. There are numerous metal skin chapin along the lateral soft tissues. No demonstrated acute fracture. RAD/Hip Min 2 Views (Portable) IMPRESSION: Status post right total hip arthroplasty. Electronically Signed: Antoni Bedoya MD at 14:28 EDT , Service support ,
--- NOTE | 2020-03-06 13:26 | PCM.OPRPT ---
Report of Operation Date of Procedure: 03/06/20 Description of Surgical Findings:: Preoperative diagnosis: Right hip DJD Postoperative diagnosis: Same Procedure: CT-guided Makoplasty assisted left total hip arthroplasty Implants: Nona Accolade II stem size 8, 127 degree neck angle neutral neck length 56 mm Trident II acetabular shell with 30mm cancellous screw 36 mm ceramic head Anesthesia: Spinal EBL: 100 cc Complications: None Condition: Stable to PACU Indication for procedure: This is a 59-year-old male patient who has avascular necrosis of his hip who has had long-standing arthrosis of the hip who has failed conservative treatment and wished to undergo total hip arthroplasty. We did discuss operative versus nonoperative intervention including risks of bleeding, infection , nerve artery tissue damage, need for further surgery, fracture, leg length discrepancy dislocation blood clot and need for postoperative physical therapy and postoperative expectations. An informed consent was signed. Procedure: Patient was met in the preoperative holding area once again the operative extremity was identified by both patient and physician and was marked. Patient was met by anesthesia spinal anesthesia placed. patient was then positioned in the lateral decubitus position on a well-padded pegboard with an axillary roll. All bony prominences were checked and padded. The patient was prepped and draped in the usual sterile fashion. A timeout was called to ensure the proper patient procedure and extremity were being contemplated. Anatomic landmarks were palpated and marked for a standard posterior lateral approach. Prior to this the ASIS was palpated and 3 fingerbreadths proximal to this 3 pins were placed at a 45 degree angle into the iliac crest with good purchase, stab incisions were made with a 15 blade into the skin prior to placement. The Makoplasty array was then secured. A 10 blade scalpel was used to make a posterior incision through the skin and subcutaneous tissue. retractors were used and electrocautery was used to maintain meticulous hemostasis and dissect full-thickness flaps until the gluteal fascia was reached. The gluteal fascia was incised in line with the gluteal fibers. The bursal tissue was then freed from the underside and a Charnley retractor was placed. The femoral trochanteric checkpoint was placed and leg length was assessed using the trochanteric checkpoint and an EKG lead that was placed on the knee prior to prepping the leg .the fat pad was then elevated off of the external rotators with electrocautery and the external rotators were dissected off of the greater trochanter including the piriformis and were tagged with #1 Ethibond for later repair. The joint capsule opened with posterior trapdoor technique. The hip was surgically dislocated. The measurement on the preoperative CT from the top of the lesser trochanter to the femoral neck cut was marked Hohmann was placed around the lesser trochanter. A neck cutting guide was used to itzel the neck with a Bovie and an oscillating saw was used complete the femoral neck cut. The femoral head was then removed and sized. We then turned our attention to the acetabulum. A Bovie was used to make a perforation in the anterior joint capsule and a Kang retractor was placed this was repeated in the 6 o'clock position and a wide belle was placed there. With a long handled knife the labral and pulvinar tissue were removed. We then registered the acetabulum with the pointing array and confirmed our landmarks. Also placed a checkpoint in the superior acetabulum and a Steinmann pin was also placed in this location to aid in retraction. Once the socket was thoroughly prepared and labral tissue pulmonary was removed we single reamed with the robotic arm. We then used the robotic arm to position the acetabular implant and impacted it into place under robotic guidance. We then proceeded to place a posterior superior screw by drilling first measuring and inserting the screw. We then inserted a trial liner. And turned our attention back to the femur at this point a femoral elevator was used. As well as a pointed wide Hohmann around the lesser trochanter and a Hohmann to help retract the gluteus medius. A box chisel was used to remove excess lateral neck followed by a canal finder and a lateralizing reamer. This was followed by sequential broaches. Attention was made of the version within the canal based on preoperative templating. Once the final broach was seated we then trialed reduced the hip it was determined that a 127 degree neck angle with a neutral neck length was the appropriate size. He was still 2 mm shorter compared to contralateral side however he was preoperatively 12 mm short and was not felt that further lengthening would be appropriate given the tension on his hip and extension 2 mm less than the contralateral was well within the normal limits we then checked stability with shuck testing as well as flexion and internal rotation. then proceeded with hip extension and checked leg lengths at the knees and heels as well as with the trochanteric checkpoint and knee EKG lead. At this point trials were removed. A liner was inserted to the cup. The femoral stem was inserted. We re-trialed and then proceeded to impact the femoral head onto the Leroy taper. We then surgically reduce the hip check stability again and leg lengths and were satisfied. Betadine rinse was allowed to sit for 5 minutes while everyone changed their gloves. Thorough irrigation was performed. Followed by closure of the external rotators with #2 FiberWire followed by closure of gluteal fascia with #1 Ethibond. 0 Vicryl fat stitches and 2-0 Vicryl subcutaneous stitches and chapin in the skin. A pulls were placed in the pin sites over the iliac crest with Xeroform 4 x 4 and OpSite. dressing was applied to incisional area with Mepilex Ag and an abduction pillow was placed. Patient tolerated the procedure well there was no intraoperative complications all counts were correct and the patient was brought back to the PACU in stable condition
[2020-03-06] MEDS: Cefazolin 1 GM/50 ML BAG IV ×2 (14:00→21:22)
[2020-03-06] MEDS: HYDROmorphone 0.5 MG/0.5 ML SYRINGE IV ×3 (15:21→21:22)
[2020-03-06] MEDS: 0.9% Saline Lock 10 ML Syringe IV ×2 (15:22→18:19)
--- NOTE | 2020-03-06 15:56 | CPS ---
started by nursing
[2020-03-06] MEDS: Gabapentin 400 MG Capsule PO (18:19)
[2020-03-06] MEDS: oxyCODONE 5 MG Tablet PO (19:46)
[2020-03-06] MEDS: Senna/Docusate Sodium 1 Tablet 2 TABLET PO (21:23)
[2020-03-06] MEDS: Mycophenolate Mofetil 250 MG Capsule 1000 MG PO (21:23)
[2020-03-06] MEDS: Atorvastatin Calcium 20 MG Tablet PO (21:24)
[2020-03-06] MEDS: Carvedilol 25 MG Tablet PO (21:24)
[2020-03-06] MEDS: Tacrolimus Anhydrous 1 MG Capsule 2 MG PO (21:25)
[2020-03-06] MEDS: Allopurinol 100 MG Tablet PO (21:27)
[2020-03-07] MEDS: oxyCODONE 5 MG Tablet PO ×4 (01:40→14:12)
[2020-03-07 03:19] VITALS: BP 124/80; PULSE 100; RESP 18; TEMP 36.8; O2SAT 95
[2020-03-07] MEDS: HYDROmorphone 0.5 MG/0.5 ML SYRINGE IV (03:28)
[2020-03-07] MEDS: Acetaminophen 500 MG Tablet 1000 MG PO ×2 (05:57→13:16)
[2020-03-07] MEDS: Cefazolin 1 GM/50 ML BAG IV (05:57)
[2020-03-07] MEDS: Ondansetron 4 MG/2 ML Vial IV (06:10)
[2020-03-07] MEDS: APIXABAN 2.5 MG TABLET PO (06:57)
[2020-03-07 07:41] LABS: Hematocrit 36.3 % (40-54); Mean Corp Hgb Conc 33.1 g/dL (32-36); Mean Corpuscular Hgb 32.9 pg (27.0-32.0); Mean Corpuscular Volume 99.5 fL (80-94); Mean Platelet Vol. 10.2 fl (6.2-12.0); Platelet Count 213 K/mm3 (150-450); RBC Distribution Width CV 12.5 % (11.6-14.6); RBC Distribution Width SD 45.1 fl (35.1-43.9); Red Blood Count 3.65 M/mm3 (4.6-6.2); White Blood Count 9.2 K/mm3 (4.4-11.0)
[2020-03-07 08:11] LABS: Anion Gap 8 (5-15); BUN 16 mg/dL (7-18); Calcium,Total 8.6 mg/dL (8.5-10.1); Chloride 104 mmol/L (98-107); Creatinine, Serum 1.07 mg/dL (0.70-1.30); EST Glomerular Filtration Rate 76 mL/min (>60); Est Glom Filt Rate - Afr Amer 91 mL/min (>60); Glucose 156 mg/dL (74-106); Potassium 3.9 mmol/L (3.5-5.1); Sodium Level 136 mmol/L (136-145)
[2020-03-07] MEDS: Smz/Tmp Ds Tablet 1 TABLET PO (08:24)
[2020-03-07] MEDS: LINAGLIPTIN 5 MG TABLET PO (08:24)
[2020-03-07] MEDS: Carvedilol 25 MG Tablet PO (08:24)
[2020-03-07] MEDS: predniSONE 5 MG Tablet PO (08:24)
[2020-03-07] MEDS: Senna/Docusate Sodium 1 Tablet 2 TABLET PO (08:24)
[2020-03-07 08:25] VITALS: BP 128/79; PULSE 96; RESP 18; TEMP 37; O2SAT 96
[2020-03-07] MEDS: Tacrolimus Anhydrous 1 MG Capsule 2 MG PO (08:25)
[2020-03-07] MEDS: Mycophenolate Mofetil 250 MG Capsule 1000 MG PO (08:25)
[2020-03-07] MEDS: Gabapentin 400 MG Capsule PO (08:25)
[2020-03-07] MEDS: Pantoprazole Sodium 40 MG Tablet PO (08:25)
[2020-03-07] MEDS: amLODIPine 2.5 MG Tablet PO (08:25)
--- NOTE | 2020-03-07 11:10 | CASEMGMT ---
SHERRY ESTRADA Face to Face with patient for initial transition planning/care coordination assessment. SHERRY ESTRADA introduced self and role at [facility]. Patient sitting in chair, alert and oriented. Patient willing to participate in assessment and is able to answer all questions appropriately. Care providers, pharmacy, and demographics verified. Patient wishes to discharge home and is setup for outpatient therapy in [place]. Patient states he has no further needs or concerns at this time. CM to follow for discharge planning needs that may arise. PCP: [facility] Specialists: oniel Henao; barbara Arevalo Preferred [facility]acy: [facility] Insurance: [employer] Prescription Benefit: yes Living Will/HPOA: none LNOK: sister Living Arrangements: Patient lives alone in 1 story home with 2 steps to enter the home. Patient independent prior to surgery. Sister to stay with patient. Transportation: sister DME/C: Patient has shower chair, raised toilet seat, cane, hip kit, walker at home. Patient would benefit from front wheels for walker, SHERRY ESTRADA obtained script from ortho and arranged through [employer] for front wheels to be delivered. Patient is scheduled for outpatient therapy starting 03/11. Disposition Plan: Patient to discharge home with outpatient therapy, family support, and follow-up plans in place. Ilana BARROS, RN, CM
--- NOTE | 2020-03-07 12:38 | DCINST_ITS ---
Discharge Diet: No Restrictions Weight Bearing Status: Weight bearing as tolerated Call your doctor if you observe: Shortness of breath, Chest pain Additional Instructions: Begin daily showering warm water antibacterial soap postop day #3( 72hrs Post- operatively) and then daily. Leave the dressing on for 72 hours postoperatively then may remove prior to first shower and change dressing daily after this until no drainage for 2 consecutive days then may leave open to air. Follow hip precautions that were reviewed in hospital. Wear compression stockings, may remove at night. Start physical therapy as directed in hospital. Call Dr. Arevalo's office with any concerns. Allergies/Adverse Reactions: Allergies fluticasone furoate [From Breo Ellipta] Allergy (Severe, Verified 03/06/20 10:09) Other made patient breathe hard and high pulse vilanterol [From Breo Ellipta] Allergy (Severe, Verified 03/06/20 10:09) Other made patient breathe hard and high pulse codeine Allergy (Mild, Verified 03/06/20 10:09) Hives Medications to take at Discharge multivitamin with iron 1 tab PO QDAY 02/06/18 Azithromycin 250 mg PO MOWEFR 06/15/18 alendronate 70 mg tablet 70 mg PO QWEEK 08/18/18 aspirin 81 mg tablet,delayed release 81 mg PO DAILY 10/04/18 Calcium Citrate/Vitamin D3 [Calcium Citrate - Vit D Caplet] 1 ea PO BID 02/16/19 Ergocalciferol (Vitamin D2) [Vitamin D2] 50,000 unit PO QWEEK 02/16/19 Magnesium Oxide [Magox 400] 800 mg PO BID 02/16/19 Mycophenolate Mofetil [Cellcept] 1,000 mg PO BID 02/16/19 Pantoprazole Sodium [Protonix] 40 mg PO DAILY 02/16/19 Rosuvastatin Calcium [Crestor] 10 mg PO QHS 02/16/19 Sitagliptin Phosphate [Januvia] 100 mg PO DAILY 02/16/19 Sulfamethoxazole/Trimethoprim [Sulfamethoxazole-Tmp Ds Tablet] 1 tab PO MOWEFR 02/16/19 allopurinol 100 mg tablet 100 mg PO QHS 07/26/19 carvedilol 6.25 mg tablet 25 mg PO BID 07/26/19 gabapentin 400 mg capsule 400 mg PO BID 07/26/19 prednisone 5 mg tablet 5 mg PO DAILY 07/26/19 sildenafil 50 mg tablet 50 mg PO DAILY PRN 07/26/19 Tacrolimus 2 mg PO DAILY 08/29/19 Tacrolimus 2 mg PO QHS 01/01/20 Amlodipine [Norvasc] 2.5 mg PO DAILY 02/14/20 gabapentin 800 mg tablet 800 mg PO 1500 PRN 02/26/20 Acetaminophen [Tylenol Extra Strength] 1,000 mg PO Q8H #100 tab 03/07/20 Apixaban [Eliquis] 2.5 mg PO BID #42 tab 03/07/20 Oxycodone [Oxyir] 5 mg PO Q4H PRN PRN #60 tab 03/07/20 The following prescriptions were given: Apixaban [Eliquis] 2.5 mg PO BID #42 tab Transmission Status: Sent to [facility] Oxycodone [Oxyir] 5 mg PO Q4H PRN PRN #60 tab PRN Reason: Pain Score 6-10/10 Transmission Status: Sent to [facility] Acetaminophen [Tylenol Extra Strength] 1,000 mg PO Q8H #100 tab Transmission Status: Pending to [facility] Orders to be completed after discharge: CORONAVIRUS 19, COREY Time Frame: 03/05/20, Facility: [facility], Location: Laboratory Primary Care Physician: Mary Loja DO [Primary Care Provider] - Test Results: Test results from this visit will be discussed in further detail at your follow- up appointment, if applicable. Please Follow Up With: Jossue Arevalo DO - 2 weeks
--- NOTE | 2020-03-07 12:40 | DS.PCM_ITS ---
Discharge Date and Diagnosis Date of Admission: 03/06/20 Date of Discharge: 03/07/20 - Secondary Discharge Diagnosis Chronic Problems: Chronic Problems (Last Updated 02/26/20 @ 10:21 by Barbara Painter) Atherosclerosis of coronary artery of [place] heart without angina pectoris (Chronic) Per Dr. Jarret Maloney @ [facility]: Proximal LAD lesion 20% stenosed, calcified. Mid LAD lesion, 20% stenosied, calcified. Ost Ramus lesion, 99% stenosed, small caliber vessel, not culprit lesion. Proximal lcx: 30% stenosed, calcified. Mid lcx: 40% stenosed, calcified. Proximal RCA, 40% stenosed, eccentric. Mid RCA-1 lesion, 30% stenosed. Mid RCA-2 lesion, 30% stenosed. Hyperlipidemia (Chronic) Status post lung transplantation (Chronic 12/11/18) Per Dr. Edmar Ramirez, [facility]: Bilateral lung transplant H/O right and left heart catheterization (Chronic 07/13/18) Per Dr. Jarret Maloney @ [facility]: Proximal LAD lesion 20% stenosed, calcified. Mid LAD lesion, 20% stenosied, calcified. Ost Ramus lesion, 99% stenosed, small caliber vessel, not culprit lesion. Proximal lcx: 30% stenosed, calcified. Mid lcx: 40% stenosed, calcified. Proximal RCA, 40% stenosed, eccentric. Mid RCA-1 lesion, 30% stenosed. Mid RCA-2 lesion, 30% stenosed. Migraine (Chronic) Anxiety (Chronic) Lung transplant status, bilateral (Chronic) History of kidney stones (Chronic) Hospital Course and Treatment Operations: None, total hip replacement Summary of Care Provided: The patient is a 59 year old M underwent right total hip arthroplasty on date of admission without any intraoperative complications. patient has failed can conservative treatment wished to undergo the elective procedure. Patient underwent the procedure without any intraoperative complications, did receive pre-and postoperative antibiotics which were discontinued within 23 hours postoperatively. He is a bilateral lung transplant patient and had some kidney insufficiency and was monitored postoperatively kidney function actually improved after surgery patient did very well in terms of ambulation no pulmonary issuesPatient did receive trans-examined acid and vital signs remained stable postoperatively as well as hemoglobin and hematocrit and did not require any blood transfusion. Seen by physical therapy, did progress with ambulation and was started on both mechanical chemical DVT prophylaxis in the form of SCDs MARIJA hose and Eliquis 2.5 mg twice daily for which patient will continue for 3 weeks post hospital discharge. To be set up with out patient physical therapy and will follow-up in the office in 2 weeks for staple removal wound check . - Physical Exam Vitals/I&O's: Vital Signs Temp Pulse Resp BP Pulse Ox 98.6 F 96 18 128/79 H 96 03/07/20 08:25 03/07/20 08:25 03/07/20 08:25 03/07/20 08:25 03/07/20 08:25 Oxygen Flow Rate (L/min) 6 Oxygen Delivery Method Room Air Weight: 207 lb 3.752 oz Body Mass Index (BMI) 28.0 Intake and Output for Last 24 Hours 03/05/20 03/06/20 03/07/20 23:59 23:59 23:59 Intake Total 3234.00 / 3634.00 1250 / 1250 Output Total 850 / 1350 1100 / 1100 Balance 2384.00 / 2284.00 150 / 150 Extremities: - - Resting clean dry and intact compartment soft neurovascular intact Microbiology Past 72 Hours 03/05/20 12:20 Mucosa - Nasopharyngeal Coronavirus COVID-19 PCR - Final Laboratory Results 03/07/20 06:27: WBC 9.2, RBC 3.65 L, Hgb 12.0 L, Hct 36.3 L, MCV 99.5 H, MCH 32.9 H, MCHC 33.1, RDW Std Deviation 45.1 H, RDW Coeff of Cirilo 12.5, Plt Count 213, MPV 10.2 03/07/20 06:27: Sodium 136, Potassium 3.9, Chloride 104, Carbon Dioxide 24.0, Anion Gap 8, BUN 16, Creatinine 1.07, Estim Creat Clear Calc 83.60, Est GFR (MDRD) Af Amer 91, Est GFR (MDRD) Non-Af 76, BUN/Creatinine Ratio 15.0, Glucose 156 H, Calcium 8.6 Current Medications Acetaminophen (Tylenol) 1,000 mg PO Q8 [facility] Last Admin: 03/07/20 05:57 Dose: 1,000 mg Documented by: Allopurinol (Zyloprim) 100 mg PO QHS [facility] Last Admin: 03/06/20 21:27 Dose: 100 mg Documented by: Amlodipine Besylate (Norvasc) 2.5 mg PO DAILY [facility] Last Admin: 03/07/20 08:25 Dose: 2.5 mg Documented by: Apixaban (Eliquis) 2.5 mg PO BID [facility] Last Admin: 03/07/20 06:57 Dose: 2.5 mg Documented by: Atorvastatin Calcium (Lipitor) 20 mg PO QHS [facility] Last Admin: 03/06/20 21:24 Dose: 20 mg Documented by: Azithromycin (Zithromax) 250 mg PO MoWeFr@1999 [facility] Carvedilol (Coreg) 25 mg PO BID [facility] Last Admin: 03/07/20 08:24 Dose: 25 mg Documented by: Gabapentin (Neurontin) 800 mg PO 1500 PRN PRN Reason: Pain or Fever [facility] Last Admin: 03/07/20 08:25 Dose: 400 mg Documented by: Hydromorphone HCl (Dilaudid Inj) 0.5 mg IV Q2H PRN PRN PRN Reason: Pain Score 6-10/10 Last Admin: 03/07/20 03:28 Dose: 0.5 mg Documented by: Insulin Human Lispro (Humalog Kwikpen (Bkc)) 1 - 6 unit SC Q4H PRN PRN; Pr otocol PRN Reason: BG>/= 180, SEE PROTOCOL Linagliptin (Tradjenta) 5 mg PO DAILY [facility] Last Admin: 03/07/20 08:24 Dose: 5 mg Documented by: Mycophenolate Mofetil (Cellcept) 1,000 mg PO BID [facility] Last Admin: 03/07/20 08:25 Dose: 1,000 mg Documented by: Ondansetron HCl (Zofran) 4 mg IV Q6H PRN PRN PRN Reason: NAUSEA Last Admin: 03/07/20 06:10 Dose: 4 mg Documented by: Oxycodone HCl (Oxyir) 5 - 10 mg PO Q4H PRN PRN PRN Reason: Pain Score 4-10/10 Last Admin: 03/07/20 09:55 Dose: 10 mg Documented by: Pantoprazole Sodium (Protonix) 40 mg PO DAILY [facility] Last Admin: 03/07/20 08:25 Dose: 40 mg Documented by: [facility] () [facility] Last Admin: 03/07/20 08:24 Dose: 5 mg Documented by: Senna/Docusate Sodium (Senokot-S, April-Colace) 2 tablet PO BID [facility] Last Admin: 03/07/20 08:24 Dose: 2 tablet Documented by: Sodium Chloride () 10 - 40 ml IV UD PRN PRN Reason: SALINE FLUSH Last Admin: 03/06/20 18:19 Dose: 10 ml Documented by: Tacrolimus (Prograf) 2 mg PO DAILY [facility] Last Admin: 03/07/20 08:25 Dose: 2 mg Documented by: Tacrolimus (Prograf) 2 mg PO QHS [facility] Last Admin: 03/06/20 21:25 Dose: 2 mg Documented by: Trimethoprim/Sulfamethoxazole (Bactrim Ds) 1 tablet PO MOWEFR [facility] Last Admin: 03/07/20 08:24 Dose: 1 tablet Documented by: Discharge Diet: No Restrictions Weight Bearing Status: Weight bearing as tolerated Call your doctor if you observe: Shortness of breath, Chest pain Home Medications: Medications to take at Discharge multivitamin with iron 1 tab PO QDAY 02/06/18 Azithromycin 250 mg PO MOWEFR 06/15/18 alendronate 70 mg tablet 70 mg PO QWEEK 08/18/18 aspirin 81 mg tablet,delayed release 81 mg PO DAILY 10/04/18 Calcium Citrate/Vitamin D3 [Calcium Citrate - Vit D Caplet] 1 ea PO BID 02/16/19 Ergocalciferol (Vitamin D2) [Vitamin D2] 50,000 unit PO QWEEK 02/16/19 Magnesium Oxide [Magox 400] 800 mg PO BID 02/16/19 Mycophenolate Mofetil [Cellcept] 1,000 mg PO BID 02/16/19 Pantoprazole Sodium [Protonix] 40 mg PO DAILY 02/16/19 Rosuvastatin Calcium [Crestor] 10 mg PO QHS 02/16/19 Sitagliptin Phosphate [Januvia] 100 mg PO DAILY 02/16/19 Sulfamethoxazole/Trimethoprim [Sulfamethoxazole-Tmp Ds Tablet] 1 tab PO MOWEFR 02/16/19 allopurinol 100 mg tablet 100 mg PO QHS 07/26/19 carvedilol 6.25 mg tablet 25 mg PO BID 07/26/19 gabapentin 400 mg capsule 400 mg PO BID 07/26/19 prednisone 5 mg tablet 5 mg PO DAILY 07/26/19 sildenafil 50 mg tablet 50 mg PO DAILY PRN 07/26/19 Tacrolimus 2 mg PO DAILY 08/29/19 Tacrolimus 2 mg PO QHS 01/01/20 Amlodipine [Norvasc] 2.5 mg PO DAILY 02/14/20 gabapentin 800 mg tablet 800 mg PO 1500 PRN 02/26/20 Acetaminophen [Tylenol Extra Strength] 1,000 mg PO Q8H #100 tab 03/07/20 Apixaban [Eliquis] 2.5 mg PO BID #42 tab 03/07/20 Oxycodone [Oxyir] 5 mg PO Q4H PRN PRN #60 tab 03/07/20 Following Prescrptions Were Given to Patient: Apixaban [Eliquis] 2.5 mg PO BID #42 tab Transmission Status: Sent to [facility] Oxycodone [Oxyir] 5 mg PO Q4H PRN PRN #60 tab PRN Reason: Pain Score 6-1010 Transmission Status: Sent to [facility] Acetaminophen [Tylenol Extra Strength] 1,000 mg PO Q8H #100 tab Transmission Status: Pending to [facility] Other Amb Orders: CORONAVIRUS 19, COREY Time Frame: 03/05/20, Facility: [facility], Location: Laboratory Primary Care Physician: Mary Loja DO [Primary Care Provider] - Please Follow Up With: Jossue Arevalo DO - 2 weeks Additional Instructions: Begin daily showering warm water antibacterial soap postop day #3( 72hrs Post- operatively) and then daily. Leave the dressing on for 72 hours postoperatively then may remove prior to first shower and change dressing daily after this until no drainage for 2 consecutive days then may leave open to air. Follow hip precautions that were reviewed in hospital. Wear compression stockings, may remove at night. Start physical therapy as directed in hospital. Call Dr. Arevalo's office with any concerns. Medical Necessity - Tobacco Use Smoking Status: Former smoker Tobacco Use: Non-smoker Meaningful Use Info Meaningful Use Diagnoses (Choose all that apply): None applicable
[2020-03-07 14:00] VITALS: BP 126/85; PULSE 102; RESP 16; TEMP 37.4; O2SAT 99
== END 2020-03-07 15:47 | disposition home or self-care (01) ==
LOC: SDC 13:58 → MS3 13:58
PROVIDERS: Anesthesiology; Admitting Provider Orthopaedic Surgery; PCP Family Medicine; Referring Provider Orthopaedic Surgery; Visit Provider Orthopaedic Surgery
PROC: 8E0Y0CZ Robotic Assisted Procedure of Lower Extremity, Open Approach (ICD-10-PCS; CPT 27130; principal; 2020-03-06 11:15)
DX: M16.11 Unilateral primary osteoarthritis, right hip (principal); I25.10 Atherosclerotic heart disease of native coronary artery without angina pectoris; R94.31 Abnormal electrocardiogram [ECG] [EKG]; I10 Essential (primary) hypertension; Z79.82 Long term (current) use of aspirin; J44.9 Chronic obstructive pulmonary disease, unspecified; E78.5 Hyperlipidemia, unspecified; F41.9 Anxiety disorder, unspecified; J96.12 Chronic respiratory failure with hypercapnia; J96.11 Chronic respiratory failure with hypoxia; Z79.899 Other long term (current) drug therapy; Z79.52 Long term (current) use of systemic steroids; Z94.2 Lung transplant status; Z99.81 Dependence on supplemental oxygen; Z87.891 Personal history of nicotine dependence; M87.88 Other osteonecrosis, other site
CPT/HCPCS: 01214; 27130; S2900; 36415; 73502; 80048; 82962; 83735; 85027; 87635; 87641; 93005; 96365; 96366; 96375; 96376; 97110; 97116; 97162; 97167; 97530; 99218; 99251; C1713; C1776; G2023; J7120; A4216; G0378; G0379; G0463; J2405; U0004

== ENCOUNTER → 2020-04-23 | Outpatient (CLI) | payer MEDICARE, MEDICAID, SELFPAY ==
[2020-03-21 10:21] VITALS: BMI 28.0
--- NOTE | 2020-04-23 10:10 | RAD_ITS ---
STUDY: X-RAY - PELVIS AND RIGHT HIP REASON FOR EXAM: Male, 60 years old. POST OP FOLLOW UP TECHNIQUE: 2 views of the pelvis and hip. COMPARISON: 12/21/2019 FINDINGS: There is a non-specific bowel gas pattern. There are multiple calcified phleboliths. Normal bilateral iliac wings, sacroiliac joints and visualized sacrum. Normal bilateral superior and inferior pubic rami. Normal pubic symphysis. Normal bilateral ischial tuberosities. Right hip arthroplasty with normal alignment. Lumbar vertebroplasty. RAD/HIP, UNI W/ Pelvis 2-3 Views IMPRESSION: Right hip arthroplasty with normal alignment. Electronically Signed: Chris Kaplan MD at 18:03 EDT Tel , Service support ,
== END | disposition home or self-care (01) ==
LOC: HPRAD 10:10
PROVIDERS: PCP Family Medicine; Referring Provider Orthopaedic Surgery; Visit Provider Orthopaedic Surgery
DX: Z47.89 Encounter for other orthopedic aftercare (principal)
CPT/HCPCS: 73502

== ENCOUNTER → 2020-08-28 12:46 | Outpatient (CLI) | payer MEDICARE, MEDICAID, SELFPAY ==
[2020-07-18 07:50] VITALS: BMI 28.0
[2020-08-27 12:59] VITALS: BMI 28.3
--- NOTE | 2020-08-28 12:54 | BD_ITS ---
STUDY: DUAL ENERGY X-RAY ABSORPTIOMETRY / DXA REASON FOR EXAM: Male, 60 years old. Pat is 207# and 69 and quot; a loss of 2 and quot; per patient. Past hx of smoking quit 5 yrs ago. Past hx of using inhalers. Patient is on several rejection meds for a bilateral lung transplant. Takes Calcium and a multi-vit and Vitamin D. Hx of a bilateral lung transplant Nov. Hx of a right hip replacement. Hx of a left wrist fx with fusion. Hx of a right forearm fx. Hx of L2,L3.L4 and T7 comp fx''s with kyphoplasty. Exercises a little to moderately. TECHNIQUE: Bone Mineral Density (BMD) measurements of the left hip and right forearm were obtained. COMPARISON: Comparison is made with prior study dated 07/19/2018. FINDINGS: Left Femur Total: g/cm2 (0.652) / T-score (-3.1) / Z-score (-2.7) Left Femoral Neck: g/cm2 (0.672) / T-score (-3.1) / Z-score (-2.2) Right Forearm: g/cm2 (0.885) / T-score (-1.2) / Z-score (-0.8) The T-Scores on the most recent prior examination were: Left Femur Total: which represents an improvement of 19%. Right Femur Total: . BD/Dexa Bone Density Study IMPRESSION: The patient is considered osteoporotic as outlined below according to World Vinod Organization (WHO) criteria with a high fracture risk. There has been improvement of bone density since the previous examination. Reference Information: The T-score is the number of standard deviations above or below the standard which is normal for young adults at their peak bone mineral density. The World Health Organization (WHO) interprets the T-scores as follows: Above -1 Normal bone density Between -1 and -2.5 Osteopenia Equal to / or below -2.5 Osteoporosis As a practical clinical guideline, osteopenia may be graded as follows: Mild -1 through -1.5 Moderate -1.6 through -2.0 Severe -2.1 through -2.4 The Z-score is the number of standard deviations above or below age-matched controls. A Z-score of less than -1.5 would be considered abnormal. References: 1. NIH Osteoporosis and Related Bone Diseases www osteo.org 2. International Society for Clinical Densitometry www iscd.org 3. National Osteoporosis Foundation www nof.org Electronically Signed: Jian Allen, at 13:58 EST , Service support ,
== END ==
PROVIDERS: PCP Family Medicine; Referring Provider Internal Medicine Critical Care Medicine; Visit Provider Internal Medicine Critical Care Medicine
DX: M81.0 Age-related osteoporosis without current pathological fracture (principal); D84.89 Other immunodeficiencies; R79.9 Abnormal finding of blood chemistry, unspecified; Z51.81 Encounter for therapeutic drug level monitoring; Z79.52 Long term (current) use of systemic steroids; Z94.2 Lung transplant status; Z48.24 Encounter for aftercare following lung transplant; Z79.899 Other long term (current) drug therapy
CPT/HCPCS: 77080

== ENCOUNTER → 2020-10-23 11:25 | Outpatient (CLI) | payer MEDICARE, MEDICAID, SELFPAY ==
--- NOTE | 2020-10-23 11:30 | RAD_ITS ---
STUDY: X-RAY - LUMBAR SPINE REASON FOR EXAM: Male, 60 years old. CHRONIC BACK PAIN, HX OF RIGHT HIP SURGERY IN FEBRUARY TECHNIQUE: 5 view(s) of the lumbar spine were obtained. COMPARISON: 07/18/2020 FINDINGS: Normal lumbar lordosis. There is no substantial scoliosis. There is a normal alignment of the vertebrae. Chronic mild compression fractures of L2-L3 and L4 treated with vertebroplasty which are unchanged. No new fracture or subluxation. Normal disc space heights. The soft tissue structures are unremarkable. RAD/L/S Spine Min 4 Views IMPRESSION: No change from 07/18/2020 Electronically Signed: Jarret Hoff MD at 16:59 EST Tel , Service support ,
== END ==
PROVIDERS: PCP Family Medicine; Referring Provider Family Medicine; Visit Provider Family Medicine
DX: M54.5 Low back pain (principal)
CPT/HCPCS: 72110

== ENCOUNTER 2021-07-17 09:01 | Day surgery (SDC) | payer MEDICARE, MEDICAID, SELFPAY ==
[2021-07-17] VITALS (7 sets, daily range): BP systolic 103–130; BP diastolic 70–90; PULSE 57–66; RESP 16–18; TEMP 36.2–36.3; O2SAT 96–98; BMI 27.2
--- NOTE | 2021-07-17 | COLBX_PTH ---
PATIENT: NICK HERNÁNDEZ LOC: EN U#:[id number] AGE/SX: 61/M ROOM: RE07/17/[address]: Dr. Navneet Duenas MD : 1960 BED: DIS: 07/17/2021 SPEC #: [id number] RECD: 07/17/21 11:11 STATUS: VERONICA ISAAC #: [id number] JALEEL: 07/17/21 00:[address]: Navneet Duenas DEPT: SURGICAL PATHOLOGY RECD BY: Javi Rogers ENTERED: 07/17/21 11:11 SP TYPE: COLON BX OTHR DR: Dr. Mary Loja DO Tissues: Rectum, NOS Procedures: Surgery Specimen Level III HEADER OPERATION: Colonoscopy (MAC) PRE-OP DIAGNOSIS: Colon polyps TISSUE SUBMITTED: Rectal polyp MICROSCOPIC DIAGNOSIS Rectal polyp, biopsy: Two polypoid fragments of squamous mucosa with dilated and congested blood vessels suggestive of hemorrhoids. Focal hyperkeratosis and parakeratosis. SJ:sammi 07/20/2021 COMMENT Case has been reviewed in consultation with Dr. Reyna who concurs with the above diagnosis. IDC:AM MICROSCOPIC DESCRIPTION Slides are reviewed. GROSS DESCRIPTION Received in fixative is one container labeled with the patient's name and designated rectal polyp. The specimen consists of two pieces of meraz-pink polyp measuring 1 x 0.6 x 0.3 cm and 0.5 x 0.4 x 0.3 cm. The entire specimen is submitted in one cassette. / EMMANUEL:sammi 07/17/21 TC:5 CPT: 66108
--- NOTE | 2021-07-17 09:21 | HP.PCM_ITS ---
History and Physical Date of Admission: 07/17/21 Date of Service: 07/01/21 MR#:[id number]:[id number]: NICK HERNÁNDEZ [facility] #:[id number]:1960 Provider:Dr. Navneet Duenas MDAge/Sex: 61/M [facility] Int[facility] Vital Signs 07/01/21 10:38 Height 5 ft 9 in Weight: 200 lb BMI 29.5 BP 117/82 H Blood Pressure Location Rt brachial Position Sitting Respiration 18 Intake Visit Reasons: CSCOPE Chief Complaint: c-scope [employer] Required: No Is patient in pain?: No Allergies fluticasone furoate [From Breo Ellipta] Allergy (Severe, Verified 07/01/21 10:39) Other vilanterol [From Breo Ellipta] Allergy (Severe, Verified 07/01/21 10:39) Other codeine Allergy (Mild, Verified 07/01/21 10:39) Hives Medications multivitamin with iron 1 tab PO QDAY 02/06/18 [History Confirmed 07/02/21] azithromycin 250 mg PO MOWEFR 06/15/18 [History Confirmed 07/02/21] alendronate 70 mg tablet 70 mg PO QWEEK 08/18/18 [History Confirmed 07/02/21] aspirin 81 mg tablet,delayed release 81 mg PO DAILY 10/04/18 [History Confirmed 07/02/21] calcium citrate-vitamin D3 1 ea PO BID 02/16/19 [History Confirmed 07/02/21] ergocalciferol (vitamin D2) 50,000 unit PO QWEEK 02/16/19 [History Confirmed 07/02/21] magnesium oxide 800 mg PO BID 02/16/19 [History Confirmed 07/02/21] mycophenolate mofetil 1,000 mg PO BID 02/16/19 [History Confirmed 07/02/21] pantoprazole 40 mg PO DAILY 02/16/19 [History Confirmed 07/02/21] rosuvastatin 10 mg PO QHS 02/16/19 [History Confirmed 07/02/21] sitagliptin 100 mg PO DAILY 02/16/19 [History Confirmed 07/02/21] allopurinol 100 mg tablet 100 mg PO QHS 07/26/19 [History Confirmed 07/02/21] gabapentin 400 mg capsule 400 mg PO BID 07/26/19 [History Confirmed 07/02/21] prednisone 5 mg tablet 5 mg PO DAILY 07/26/19 [History Confirmed 07/02/21] sildenafil 50 mg tablet 50 mg PO DAILY PRN 07/26/19 [History Confirmed 07/02/21] gabapentin 800 mg tablet 800 mg PO 1500 PRN 02/26/20 [History Confirmed 07/02/21] acetaminophen 500 mg tablet 1,000 mg PO Q8H PRN tab 08/27/20 [History Confirmed 07/02/21] carvedilol 25 mg tablet 25 mg PO BID 08/27/20 [History Confirmed 07/02/21] tacrolimus 0.5 mg capsule, immediate-release 1 mg PO QHS cap 08/27/20 [History Confirmed 07/02/21] albuterol sulfate 90 mcg/actuation aerosol inhaler 1 inh INHALATION ONCE 07/02/21 [History Confirmed 07/02/21] amlodipine 2.5 mg tablet 5 mg PO DAILY tab 07/02/21 [History Confirmed 07/02/21] calcium carbonate 500 mg calcium (1,250 mg) tablet 500 mg PO DAILY 07/02/21 [History Confirmed 07/02/21] calcium citrate 200 mg (950 mg) tablet 200 mg PO DAILY 07/02/21 [History Confirmed 07/02/21] docusate sodium 100 mg capsule 100 mg PO DAILY 07/02/21 [History Confirmed 07/02/21] furosemide 20 mg tablet 20 mg PO DAILY tab 07/02/21 [History Confirmed 07/02/21] hydrocodone 10 mg-acetaminophen 325 mg tablet 1 tab PO Q6H PRN 07/02/21 [History Confirmed 07/02/21] lorazepam 0.5 mg tablet 0.5 mg PO BID PRN 07/02/21 [History Confirmed 07/02/21] meloxicam 15 mg tablet 15 mg PO DAILY 07/02/21 [History Confirmed 07/02/21] oxybutynin chloride 10 mg tablet,extended release 24 hr 10 mg PO DAILY 07/02/21 [History Confirmed 07/02/21] sulfamethoxazole 800 mg-trimethoprim 160 mg tablet 1 tab PO BID 07/02/21 [History Confirmed 07/02/21] tamsulosin 0.4 mg capsule 0.4 mg PO DAILY 07/02/21 [History Confirmed 07/02/21] triamcinolone acetonide 0.5 % topical cream 1 applic TOPICAL DAILY 07/02/21 [History Confirmed 07/02/21] valacyclovir 500 mg tablet 500 mg PO BID 07/02/21 [History Confirmed 07/02/21] ON LICENSE OF [facility] Medical History (Updated 07/01/21 @ 10:[address] Navneet Duenas MD) Anxiety Atherosclerosis of coronary artery of [place] heart without angina pectoris Atherosclerotic heart disease of [place] coronary artery without angina pectoris Burning sensation of feet Cachexia Chronic respiratory failure with hypoxia and hypercapnia Compression fracture of L2 lumbar vertebra Compression fracture of L4 lumbar vertebra Compression fracture of T7 vertebra COPD (chronic obstructive pulmonary disease) COPD with acute exacerbation Emphysema of lung Herpes zoster History of kidney stones Hyperlipidemia Hypersomnia Hypoxia Left shoulder pain Lung nodule Lung transplant candidate Malnutrition of moderate degree Migraine Nephrolithiasis Oxygen dependent Phlebitis of superficial vein of lower extremity Pre-operative cardiovascular examination Pre-operative cardiovascular examination Screen for colon cancer Stage 4 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 Stage 4 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 Wide-complex tachycardia Surgical History H/O right and left heart catheterization (07/13/18) History of right hip replacement Organ or tissue replaced by transplant S/P rotator cuff repair shattered left wrist Status post lung transplantation (12/11/18) Status post wrist surgery Family History Mother Heart disease Lung disease Sister Lung disease Brother Lung disease Father CAD (coronary artery disease) Social History Smoking Status: Former smoker quit date: 10/17/13 pack-years: 25 Tobacco: How many years used: 25 second hand exposure: No alcohol intake: never substance use type: does not use what type of physical activity do you participate in: walking and weight training frequency: daily HPI HPI HPI: NICK HERNÁNDEZ, is a 61 M who presents to the office today for need to schedule surveillance colonoscopy secondary to history of polyps?tubular adenoma, specifically. They are referred for surgical consultation from Dr. Loja. Patient has had prior colonoscopy in [address] Frost which was performed as part of operative clearance for a double lung transplant in 2019. Patient has no personal history of inflammatory bowel disease, diverticulitis, or colon cancer. They describe their bowel habits as normal, occurring 2 times daily without any straining or blood noticed. They do not regularly take fiber supplements. Patient has no family history of inflammatory bowel disease, diverticulitis, or colon cancer. Patient has a history of gastroesophageal reflux disease. This began after his double lung transplant. He states that he was initially placed on Protonix 1 time daily but had breakthrough symptoms. This led to a prescription for twice daily administration and he has had no further issues. Furthermore, he adds he underwent an EGD 6 months ago that was unremarkable. ROS General General: No weight change, appetite, fatigue, colon cancer, breast cancer or weakness HEENT HEENT: No difficulty swallowing, eye injury, eye surgery, swollen glands or hoarseness Endo Endocrine: Yes diabetes mellitus; No thyroid disease, thyroid cancer, Hair loss, heat intolerance or cold intolerance Skin Skin: No rash or changing moles Breast Breast: No left breast lump, right breast lump, nipple discharge, breast pain, abnormal mammogram, abnormal US or breast enlargement Musc Musculoskeletal: Yes back problems, arthritis and rheumatoid arthritis; No gout or joint pain Cardio Cardiovascular: No murmur, pacemaker, heart disease, atrial fibrillation, high blood pressure, heart attack, heart stent, palpitations, shortness of breat with exertion or chest pain Psych Psychiatric: No depression, anxiety or hearing voices Resp Respiratory: No shortness of breath, No sleep apnea, No cough, No COPD, No asthma, No emphysema and No wheezing Gastro Gastrointestinal: No abdominal pain, No nausea or vomiting, Yes diarrhea, Yes constipation, No blood in stool, Yes acid reflux, No hemorrhoids, No ulcers, No gallbladder problem and No black,tarry stools Jose Gu[place]upe Hematologic: No blood thinners, No blood disorders, No bleeding, No anemia and No blood clots Neuro Neurologic: No system reviewed and no additional complaints, except as documented, No as per HPI, No abnormal gait, No abnormal hearing, No abnormal movements, No abnormal speech, No behavioral changes, No burning sensations, No confusion, No convulsions, No disequilibrium, No dizziness, No localized weakness, No frequent falls, No headache(s), No lack of coordination, No loss of vision, No memory loss, Yes numbness, No other visual disturbances, No radicular pain, No restless legs, No sensory deficit, No syncope, Yes tingling, No tremor(s), No weakness and No other Exam Const General: cooperative, healthy appearing, comfortable and no acute distress Orientation: alert, awake and oriented x3 Resp Effort & Inspection: normal respiratory effort Auscultation: no egophony, no rales and no rhonchi Cardio Rate: regular rate Rhythm: regular rhythm Heart Sounds: S1 normal and normal, physiologic split S2 GI Inspection: normal to inspection Palpation: soft and hernia umbilical (Nontender with palpation. Defect measures approximately 1 cm) Assessment and Plan Assessment and Plan (1) History of colon polyps: Status: Acute Comment: History of colon polyps (tubular adenoma). Status post bilateral lung transplant in 2019 with prior colonoscopy in 2018. Patient given 3-year follow- up given the presence of polyps and requires a tighter interval given ongoing immunosuppression. No GI complaints with today's visit. GERD symptoms are well managed and patient has had recent EGD without significant findings per his report. We will plan for repeat colonoscopy at next mutually available date. I discussed with the patient the plans for pre-? procedure prep and need for new autos delivery driver day of the procedure. Plan - Dr. Navneet Duenas MD: Plan will be to complete colonoscopy on first mutually available date under local MAC. Pre-procedure prep discussed and paper instructions provided. Patient is also made aware that they will need to have a new autos delivery driver with him the day of the procedure. Insert H&P no changes. Patient confirms that his prep went well. He confirms his output has been clear. Plan to proceed with colonoscopy under local MAC as discussed above.
[2021-07-17] MEDS: Lactated Ringers 1,000 ML 100 ML IV (09:34)
--- NOTE | 2021-07-17 10:55 | OP.COLON_ITS ---
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 Refer to note in patient chart for documentation of history and physical. Complications: No immediate complications. Estimated blood loss: Minimal. Procedure: Pre-Anesthesia Assessment: - The heart rate, respiratory rate, oxygen saturations, blood pressure, adequacy of pulmonary ventilation, and response to care were monitored throughout the procedure. - The anesthesia plan was to use moderate sedation/analgesia (conscious sedation). After I obtained informed consent, the scope was passed under direct vision. Throughout the procedure, the patient's blood pressure, pulse, and oxygen saturations were monitored continuously. The adult colonoscope was introduced through the anus and advanced to the ileocecal valve. The colonoscopy was performed without difficulty. The patient tolerated the procedure well. The quality of the bowel preparation was adequate to identify polyps. Scope In: 9:47:13 AM Scope Withdrawal Time 0 hours 44 minutes 21 seconds Scope Out: 10:39:03 AM Total Procedure Duration Time 0 hours 51 minutes 50 seconds Findings: Two pedunculated, non-bleeding polyps were found in the rectum (benign-appearing lesion). The polyps were 9 mm in size. These polyps were removed with a hot snare. Resection and retrieval were complete. Estimated blood loss: none. Multiple medium-mouthed diverticula were found in the sigmoid colon. No biopsies or other specimens were collected for this exam. Impression: - Two benign appearing 9 mm, non-bleeding polyps in the rectum, removed with a hot snare. Resected and retrieved. - Diverticulosis in the sigmoid colon. No specimens collected. Recommendation: - Discharge patient to home (via wheelchair). - Resume regular diet today. - Continue present medications. - Await pathology results. - Repeat colonoscopy for surveillance based on pathology results. Procedure Code(s): --- Professional --- 84654, Colonoscopy, flexible; with removal of tumor(s), polyp(s), or other lesion(s) by snare technique Diagnosis Code(s): --- Professional --- K62.1, Rectal polyp Z86.010, Personal history of colonic polyps CPT copyright 2017 [employer]. All rights reserved. The codes documented in this report are preliminary and upon submarine operator review may be revised to meet current compliance requirements. Navneet Duenas MD 07/17/2021 10:54:57 AM This report has been signed electronically. Number of Addenda: 0 Note Initiated On: 07/17/2021 9:27 AM
--- NOTE | 2021-07-17 10:56 | OP.CCLET_ITS ---
07/17/2021 Mary Loja [address] [place] [address] Re : Colonoscopy procedure for Wilbur Martines Dear Dr. Loja This procedure was performed on Saturday, July 17, 2021. My impressions and recommendations are as follows: Impressions : - Two benign appearing 9 mm, non-bleeding polyps in the rectum, removed with a hot snare. Resected and retrieved. - Diverticulosis in the sigmoid colon. No specimens collected. Recommendations : - Discharge patient to home (via wheelchair). - Resume regular diet today. - Continue present medications. - Await pathology results. - Repeat colonoscopy for surveillance based on pathology results. My findings are described in the full procedure note, which is enclosed. If I can be of further assistance, please feel free to contact me at Doctor phone number(s): , Work: . Sincerely, Navneet Duenas MD 07/17/2021 10:54:57 AM This report has been signed electronically.
== END 2021-07-17 11:59 ==
LOC: EN 09:04 → AC 09:05
PROVIDERS: PCP Family Medicine; Referring Provider Family Medicine; Visit Provider Surgery
PROC: 0DJD8ZZ Inspection of Lower Intestinal Tract, Via Natural or Artificial Opening Endoscopic (ICD-10-PCS; CPT 45378; principal; 2021-07-17 09:25)
DX: Z12.11 Encounter for screening for malignant neoplasm of colon (principal); K62.1 Rectal polyp; K57.30 Diverticulosis of large intestine without perforation or abscess without bleeding; K21.9 Gastro-esophageal reflux disease without esophagitis; I25.10 Atherosclerotic heart disease of native coronary artery without angina pectoris; E11.9 Type 2 diabetes mellitus without complications; J44.9 Chronic obstructive pulmonary disease, unspecified; J96.11 Chronic respiratory failure with hypoxia; J96.12 Chronic respiratory failure with hypercapnia; D84.9 Immunodeficiency, unspecified; Z94.2 Lung transplant status; Z79.52 Long term (current) use of systemic steroids; Z79.84 Long term (current) use of oral hypoglycemic drugs; Z79.82 Long term (current) use of aspirin; Z79.1 Long term (current) use of non-steroidal anti-inflammatories (NSAID); Z86.010 Personal history of colon polyps; Z87.19 Personal history of other diseases of the digestive system; Z96.641 Presence of right artificial hip joint; Z87.891 Personal history of nicotine dependence
CPT/HCPCS: 45385; 88304; 88305; J7120; J2405

== ENCOUNTER 2021-09-13 20:06 | Emergency (ER) | payer MEDICARE, SELFPAY ==
[2021-09-13] VITALS (8 sets, daily range): BP systolic 106–137; BP diastolic 78–98; PULSE 67–86; RESP 12–16; TEMP 36.4–36.6; O2SAT 95–98; BMI 29.2
--- NOTE | 2021-09-13 20:46 | EKG12_ITS ---
Test Reason : COUGH Blood Pressure : / mmHG Vent. Rate : 076 BPM Atrial Rate : 076 BPM P-R Int : 128 ms QRS Dur : 082 ms QT Int : 404 ms P-R-T Axes : 051 094 -71 degrees QTc Int : 454 ms Normal sinus rhythm T wave abnormality, consider inferior ischemia Abnormal ECG Confirmed by BRAEDEN CUNHA, LUPIS ([id number]), supervising editor trailer GONZALES DIXON ([id number]) on 09/15/2021 9:18:28 AM Referred By: BB Confirmed By:LUPIS DERAS MD
--- NOTE | 2021-09-13 21:25 | RAD_ITS ---
HISTORY: cough, 2x lung transplant EXAMINATION/TECHNIQUE: XR Chest 1 View: COMPARISON: 11/14/2017 FINDINGS: LINES/DEVICES: None. LUNGS: Normal left lung volume status post transplant. Relative elevation of the right hemidiaphragm posttransplantation with right basilar atelectasis. No airspace consolidation. Unremarkable interstitium. No visible effusion. No pneumothorax. MEDIASTINUM: No cardiomegaly. Sternotomy wires are midline and intact. MUSCULOSKELETAL: No acute osseous finding. Sternotomy wires are midline and intact. RAD/Chest 1 View (Portable) IMPRESSION: Right hemidiaphragm elevation with right basilar atelectasis, sometimes associated with phrenic nerve injury or dysfunction. Fluoroscopic sniff test could be best further evaluate. No visible consolidation. Sternotomy change. at 2230 Reported and signed by: Tyler Clemente MD Electronically Signed: Tyler Clemente MD at 22:28 EST Tel , Service support ,
--- NOTE | 2021-09-13 21:27 | EX.ED.DYSGE1 ---
HPI History of Present Illness Chief Complaint: Cough Informant: patient and spouse/S.O. Onset/Context/Timing Onset: Weeks (1) Context: Gradual Onset Timing: Continuous Quality: [employer] cough Location: chest Current Severity: Moderate Maximum Severity: Moderate Worsened by: nothing Relieved by: nothing Associated Symptoms Associated Symptoms: chest midline surg inc pain/soreness, subj low-grade fevers Narrative Narrative: Patient is a double lung transplant patient from back in 2019 at [facility], he has had a chest cough for the past week. This is the first time he has been seen for this. He was vaccinated against Covid, he has no contact with anyone with Covid that he knows of lately. He has had some mild subjective low-grade fevers, but nothing measured high. He is having some midline surgical incision pain, it hurts to move and to cough, he has been doing a lot of coughing. He has noticed no wounds or redness. He denies dyspnea. The is concerned that he has had a mood change. Yesterday especially, he was agitated, mean, very different compared with usual, and saying that he took his medications which include his antirejection transplant medication, yet she would find pills on the floor that made it look like he was missing some. Today he is not as agitated but still not acting himself. Patient states he has been compliant with his medications, including his prophylactic azithromycin and Bactrim. He denies any drug use. He denies any headaches or focal neurologic symptoms or neck stiffness. He denies any recent injuries. He is not on home oxygen. He had double lung transplant because of severe COPD. states she called the transplant center, [facility] does not have any beds, and they recommended him going to [facility], but they do not have any beds either so they came to this hospital for further evaluation. [facility] Medical History Anxiety Arthritis Atherosclerosis of coronary artery of rincon heart without angina pectoris Atherosclerotic heart disease of rincon coronary artery without angina pectoris Back pain Burning sensation of feet Cachexia Cardiology follow-up encounter Chronic respiratory failure with hypoxia and hypercapnia Compression fracture of L2 lumbar vertebra Compression fracture of L4 lumbar vertebra Compression fracture of T7 vertebra COPD (chronic obstructive pulmonary disease) COPD with acute exacerbation Diabetes Emphysema of lung Former smoker Gastric reflux Herpes zoster History of echocardiogram History of hiatal hernia History of kidney stones History of pain when walking History of stress test Hyperlipidemia Hypersomnia Hypertension Hypoxia Left shoulder pain Lung nodule Lung transplant candidate Malnutrition of moderate degree Migraine Nephrolithiasis Oxygen dependent Phlebitis of superficial vein of lower extremity Pre-operative cardiovascular examination Pre-operative cardiovascular examination Restless legs Screen for colon cancer Stage 4 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 Stage 4 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 Wears glasses Wears partial dentures Wide-complex tachycardia Home Medications multivitamin with iron 1 tab PO QDAY 02/06/18 [History Last Taken 12/03/19 08:00 1 TAB] azithromycin 250 mg PO MOWEFR 06/15/18 [History Last Taken 12/03/19 08:00 250 MG] alendronate 70 mg tablet 70 mg PO QWEEK 08/18/18 [History Last Taken 12/03/19 08:00 70 MG] aspirin 81 mg tablet,delayed release 81 mg PO DAILY 10/04/18 [History Last Taken 02/11/20] ergocalciferol (vitamin D2) 50,000 unit PO TU 02/16/19 [History Last Taken 12/03/19 08:00 [id number] UNIT] magnesium oxide 800 mg PO BID 02/16/19 [History Last Taken 12/03/19 08:00 800 MG] mycophenolate mofetil 1,000 mg PO BID 02/16/19 [History Last Taken 07/17/21 07:30] pantoprazole 40 mg PO DAILY 02/16/19 [History Last Taken 07/17/21 07:30] rosuvastatin 10 mg PO QHS 02/16/19 [History Last Taken Unknown] sitagliptin 100 mg PO DAILY 02/16/19 [History Last Taken 12/03/19 08:00 100 MG] allopurinol 100 mg tablet 100 mg PO QHS 07/26/19 [History Last Taken Unknown] gabapentin 400 mg capsule 400 mg PO BID 07/26/19 [History Last Taken 12/03/19 08:00 400 MG] prednisone 5 mg tablet 5 mg PO DAILY 07/26/19 [History Last Taken 07/17/21 07:30] sildenafil 50 mg tablet 50 mg PO DAILY PRN 07/26/19 [History Last Taken 12/03/19 08:00 50 MG] gabapentin 800 mg tablet 800 mg PO 1500 02/26/20 [History Last Taken Unknown] acetaminophen 500 mg tablet 1,000 mg PO Q8H PRN tab 08/27/20 [History Last Taken Unknown] carvedilol 25 mg tablet 25 mg PO BID 08/27/20 [History Last Taken Unknown] tacrolimus 0.5 mg capsule, immediate-release 1 mg PO QHS cap 08/27/20 [History Last Taken Unknown] amlodipine 2.5 mg tablet 5 mg PO DAILY tab 07/02/21 [History Last Taken 07/17/21 07:30] calcium carbonate 500 mg calcium (1,250 mg) tablet 500 mg PO DAILY 07/02/21 [History Last Taken Unknown] calcium citrate 200 mg (950 mg) tablet 200 mg PO DAILY 07/02/21 [History Last Taken Unknown] docusate sodium 100 mg capsule 100 mg PO PRN PRN 07/02/21 [History Last Taken Unknown] hydrocodone 10 mg-acetaminophen 325 mg tablet 1 tab PO Q6H PRN 07/02/21 [History Last Taken Unknown] oxybutynin chloride 10 mg tablet,extended release 24 hr 10 mg PO DAILY 07/02/21 [History Last Taken Unknown] sulfamethoxazole 800 mg-trimethoprim 160 mg tablet 1 tab PO BID 07/02/21 [History Last Taken Unknown] tamsulosin 0.4 mg capsule 0.4 mg PO DAILY 07/02/21 [History Last Taken Unknown] Allergy/AdvReac Type Severity Reaction Status Date / Time fluticasone furoate Allergy Severe Other Verified 09/02/21 11:16 [From Breo Ellipta] vilanterol Allergy Severe Other Verified 09/02/21 11:16 [From Breo Ellipta] codeine Allergy Mild Hives Verified 09/02/21 11:16 Family History Mother Heart disease Lung disease Sister Lung disease Brother Lung disease Father CAD (coronary artery disease) Surgical History (Updated 09/13/21 @ 22:[address] Bill Strauss MD) H/O right and left heart catheterization (07/13/18) History of cardiac catheterization History of kyphoplasty History of right hip replacement History of total right hip arthroplasty Hx of lung transplant Organ or tissue replaced by transplant S/P rotator cuff repair shattered left wrist Status post lung transplantation (12/11/18) Status post wrist surgery Social History Smoking Status: Former smoker quit date: 10/17/13 pack-years: 25 Tobacco: How many years used: 25 second hand exposure: No alcohol intake: never substance use type: does not use what type of physical activity do you participate in: walking and weight training frequency: daily ROS ROS ED Constitutional Constitutional ED: Reports fever(s) and subjective; Denies body ache(s) or chills Eyes Eyes: Denies change in vision or diplopia ENT ENT ED: Denies rhinorrhea or sore throat Cardiovascular Cardiovascular: Reports as per HPI and chest pain; Denies palpitations Respiratory/Chest Respiratory/Chest: Reports cough; Denies dyspnea Gastrointestinal Gastrointestinal: Denies abdominal pain, diarrhea, nausea or vomiting Genitourinary Genitourinary ED: Denies dysuria or hematuria Musculoskeletal Musculoskeletal: Denies back pain or neck pain Integumentary Denies abscess or rash Neurologic Neurologic: Denies headache(s), paresthesias or weakness Psychiatric Psychiatric: Denies anxiety or suicidal thoughts EXAM Physical Exam Const Vital Signs: 09/13/21 20:07 09/13/21 20:09 09/13/21 21:21 Temperature 97.6 F L 97.6 F L 97.8 F Temperature Source Oral Oral Oral Pulse Rate 86 86 74 Respiratory Rate 15 15 12 Respiratory Effort Short of Breath Respiratory Depth Normal Respiratory Pattern Normal Blood Pressure 136/93 H 136/93 H 137/95 H Blood Pressure Mean 107 107 109 Pulse Ox 97 97 95 Oxygen Delivery Method Room Air Room Air Room Air 09/13/21 21:24 09/13/21 22:00 Temperature 97.8 F 97.8 F Temperature Source Oral Oral Pulse Rate 74 67 Respiratory Rate 12 16 Respiratory Effort Respiratory Depth Respiratory Pattern Blood Pressure 137/95 H 106/78 Blood Pressure Mean 109 87 Pulse Ox 96 98 Oxygen Delivery Method Room Air Room Air Positive well nourished and well developed Constitutional Narrative: Conversive in full sentences General Appearance ED: well developed and NAD HEENT Reports moist mucous membranes normocephalic and atraumatic Eyes PERRL and EOMs intact bilaterally Neck full ROM and supple Chest Wall Chest Narrative: Midline sternal surgical scar is well-healed, benign appearing without any erythema or open wound; it is diffusely mildly tender to palpation, no subcutaneous emphysema or masses. Resp normal respiratory effort, normal air movement, no retractions and no use of accessory muscles Resp Narrative: Slight expiratory end-wheezing bilaterally. Equal breath sounds present bilaterally, trachea midline. Cardio regular rate, regular rhythm and no murmurs GI non-tender and non-distended Auscultation: normoactive bowel sounds Palpation: soft Back/Spine no CVA tenderness General Back: other FROM Extremity normal to inspection and no calf tenderness General Extremety ED: Negative for edema, pulses abnormal or tenderness General Extremity: Negative for edema or pulses abnormal Neuro oriented x3, CN's II-XII intact bilaterally and no sensory deficits noted Sensorium / Orientation: awake and alert Motor Exam: strength 5/5 throughout Skin no rashes or lesions noted and no wounds MDM MDM MDM Narrative Medical decision making narrative: Although her lab does not run it stat, I did send a tacrolimus level. The patient is also on mycophenolate, however our lab does not offer levels for this. He does not appear to be on any other immunosuppressive medications. Septic work-up was obtained in addition to Covid, influenza, RSV swab since we have them available. Those swabs are all negative. His chest x-ray shows no pneumonia. He has no leukocytosis. His urine does appear to be infected, I sent for culture as well as blood cultures, he does not have any urinary symptoms. Unknown significance. Lactic acid is within normal limits. His vital signs have remained normal. His last set are as follows: 106/78, 67, 16, 97.8, 98% on room air. Patient seems to be alert and oriented x3, pleasant at this time. The is very concerned that yesterday, he was very agitated, angry, cisneros, not himself. She is also concerned that he may not have been getting his tacrolimus as prescribed, she asked that we send a level. I did this, however after discussing with the lab, we do not run that test here, it will be transferred to [facility] tomorrow afternoon, and the results will be back 2 to 3 days after that. I discussed with his internship coordinator, Lala. She is going to follow-up with the tacrolimus level as well as the urine culture was sent. She agrees with the patient going home, and will call them tomorrow to help follow the patient's clinical condition. She states that the patient's cough could possibly represent rejection which is why they are concerned about the tacrolimus level. Prior to discharge, I discussed further with the patient and his . They are comfortable with this plan. Furthermore, he states that he has had a cough ever since June, when he had a bronchoscopy and there was a complication. He states it has been worse in the past week. Lab Data Attestation: I reviewed the patient's lab results. Labs: Laboratory Results - last 24 hr 09/13/21 09/13/21 09/13/21 21:13 21:13 21:13 WBC 7.6 RBC 4.79 Hgb 14.9 Hct 43.5 MCV 90.8 MCH 31.1 MCHC 34.3 RDW Std Deviation 44.5 H RDW Coeff of Cirilo 13.5 Plt Count 155 MPV 11.0 Immature Gran % (Auto) 0.100 Neut % (Auto) 73.1 H Lymph % (Auto) 16.7 L Armstrong % (Auto) 9.4 Eos % (Auto) 0.4 Baso % (Auto) 0.3 Absolute Neuts (auto) 5.6 Absolute Lymphs (auto) 1.27 Nucleated RBC % 0 Differential Comment SCANNED Sodium 140 Potassium 3.6 Chloride 108 H Carbon Dioxide 23.0 Anion Gap 9 BUN 18 Creatinine 1.10 Estim Creat Clear Calc 77.01 Est GFR (MDRD) Af Amer 88 Est GFR (MDRD) Non-Af 73 BUN/Creatinine Ratio 16.4 Glucose 110 H Lactic Acid 0.9 Calcium 9.7 Total Bilirubin 0.60 AST 23 ALT 31 Alkaline Phosphatase 77 Troponin I High Sens 5 Total Protein 7.3 Albumin 3.9 Globulin 3.4 Albumin/Globulin Ratio 1.1 Urine Color Urine Clarity Urine pH Ur Specific Vashon Urine Protein Urine Glucose (UA) Urine Ketones Urine Occult Blood Urine Nitrite Urine Bilirubin Urine Urobilinogen Ur Leukocyte Esterase Urine RBC Urine WBC Ur Squamous Epith Cells Urine Bacteria Urine Mucus 09/13/21 21:19 WBC RBC Hgb Hct MCV MCH MCHC RDW Std Deviation RDW Coeff of Cirilo Plt Count MPV Immature Gran % (Auto) Neut % (Auto) Lymph % (Auto) Armstrong % (Auto) Eos % (Auto) Baso % (Auto) Absolute Neuts (auto) Absolute Lymphs (auto) Nucleated RBC % Differential Comment Sodium Potassium Chloride Carbon Dioxide Anion Gap BUN Creatinine Estim Creat Clear Calc Est GFR (MDRD) Af Amer Est GFR (MDRD) Non-Af BUN/Creatinine Ratio Glucose Lactic Acid Calcium Total Bilirubin AST ALT Alkaline Phosphatase Troponin I High Sens Total Protein Albumin Globulin Albumin/Globulin Ratio Urine Color Yellow Urine Clarity Clear Urine pH 5.0 Ur Specific Vashon 1.025 Urine Protein Negative Urine Glucose (UA) Normal Urine Ketones 5 H Urine Occult Blood 10 H Urine Nitrite Positive H Urine Bilirubin Negative Urine Urobilinogen Normal Ur Leukocyte Esterase 500 H Urine RBC 0 SEEN Urine WBC 5-10 SEEN Ur Squamous Epith Cells 0 SEEN Urine Bacteria 2+ Urine Mucus 0 SEEN Radiography Diagnostic Testing: Clinical Impression(s) from Imaging Studies Chest X-Ray 09/13/21 21:25 IMPRESSION: Right hemidiaphragm elevation with right basilar atelectasis, sometimes associated with phrenic nerve injury or dysfunction. Fluoroscopic sniff test could be best further evaluate. No visible consolidation. Sternotomy change. at 2230 Reported and signed by: Tyler Clemente MD Electronically Signed: Tyler Clemente MD at 22:28 EST Tel , Service support , EKG Initial EKG: Attestation: I personally reviewed and interpreted this EKG as follows: Interpretation: Sinus Rhythm, No Acute Injury Pattern and Inverted T-Waves (Diffusely in inferior, septal, some lateral leads) Prior EKG tracings: available for review Prior: Unchanged Discharge Plan Triage Chief Complaint: Cough ED Provider: Bill Strauss Dx/Rx/DC Orders Clinical Impression: Acute bronchitis, Lung transplant status, bilateral, Mood swings Instructions: Acute Bronchitis Prescriptions: No Action multivitamin with iron [Daily Multiple Vitamins/Iron] tablet 1 tab PO QDAY RF: 0 aspirin [Adult Low Dose Aspirin] 81 mg tablet,delayed release (DR/EC) 81 mg PO DAILY RF: 0 gabapentin 400 mg capsule 400 mg PO BID RF: 0 prednisone 5 mg tablet 5 mg PO DAILY RF: 0 sildenafil 50 mg tablet 50 mg PO DAILY PRN (Reason: sexual activity) RF: 0 allopurinol 100 mg tablet 100 mg PO QHS RF: 0 acetaminophen 500 mg tablet 1,000 mg PO Q8H PRN (Reason: Pain) RF: 0 carvedilol 25 mg tablet 25 mg PO BID RF: 0 sulfamethoxazole-trimethoprim [Bactrim DS] 800-160 mg tablet 1 tab PO BID RF: 0 calcium citrate 200 mg (950 mg) tablet 200 mg PO DAILY RF: 0 hydrocodone-acetaminophen 10-325 mg tablet 1 tab PO Q6H PRN (Reason: Pain) RF: 0 oxybutynin chloride 10 mg tablet extended release 24hr 10 mg PO DAILY RF: 0 tamsulosin 0.4 mg capsule 0.4 mg PO DAILY RF: 0 docusate sodium [Colace] 100 mg capsule 100 mg PO PRN PRN (Reason: Constipation) RF: 0 calcium carbonate [Oyster Shell Calcium] 500 mg calcium (1,250 mg) tablet 500 mg PO DAILY RF: 0 azithromycin 250 MG tablet 250 mg PO MOWEFR RF: 0 mycophenolate mofetil 250 MG capsule 1,000 mg PO BID RF: 0 magnesium oxide 400 MG tablet 800 mg PO BID RF: 0 pantoprazole 40 MG tablet 40 mg PO DAILY RF: 0 ergocalciferol (vitamin D2) 50,000 UNIT capsule 50,000 unit PO TU RF: 0 rosuvastatin 10 MG tablet 10 mg PO QHS RF: 0 sitagliptin 100 MG tablet 100 mg PO DAILY RF: 0 gabapentin 800 mg tablet 800 mg PO 1500 RF: 0 tacrolimus 0.5 mg capsule 1 mg PO QHS RF: 0 amlodipine 2.5 mg tablet 5 mg PO DAILY RF: 0 alendronate [Fosamax] 70 mg tablet 70 mg PO QWEEK RF: 0 Primary Care Provider: Mary Loja Referrals: Mary Loja DO [Primary Care Provider] - Activity Restrictions/Additional Instructions: The tacrolimus level is sent and pending as is a urine culture. These need to be followed up on. Lala should call you tomorrow. Disposition Disposition: Home, Self Care
[2021-09-13 21:34] LABS: Mucous, Urine 0 SEEN /hpf (<or=2+); Red Blood Cells-Urine 0 SEEN /hpf (0-5); Squamous Epithelial Cells - UA 0 SEEN /hpf (0-5)
[2021-09-13 21:38] LABS: Absolute Lymphocyte Count 1.27 X10^3/uL (0.83-4.51); Absolute Neutrophil Count 5.6 X10^3/uL (2.0-7.7); Basophil# 0.02 X10^3/uL; Basophil% 0.3 % (0-1); Eosinophil# 0.03 X10^3/uL; Eosinophils% 0.4 % (0-5); Hematocrit 43.5 % (40-54); Hemoglobin 14.9 g/dL (13.0-16.5); Lymphocyte # 1.27 X10^3/ul (0.83-4.51); Lymphocyte % 16.7 % (19-41); Mean Corp Hgb Conc 34.3 g/dL (32-36); Mean Corpuscular Hgb 31.1 pg (27.0-32.0); Mean Corpuscular Volume 90.8 fL (80-94); Monocyte# 0.71 X10^3/uL; Monocyte% 9.4 % (0-10); NRBC Flagged by Analyzer 0 % (0-5); Neutrophil # 5.55 X10^3/uL (2.7-7.7); Neutrophil % 73.1 % (47-70); POSITIVE COUNT YES; Platelet Count 155 K/mm3 (150-450); RBC Distribution Width CV 13.5 % (11.6-14.6); RBC Distribution Width SD 44.5 fl (35.1-43.9); Red Blood Count 4.79 M/mm3 (4.6-6.2); White Blood Count 7.6 K/mm3 (4.4-11.0)
[2021-09-13 21:39] LABS: Color, Urine Yellow (Yellow); Glucose, Dipstick Normal (Normal); Ketone-Dipstick 5 mg/dl (Negative); Leukocyte Esterase-Dipstick 500 /ul (Negative); Nitrite-Dipstick Positive (Negative); Occult Blood-Urine 10 /ul (Negative); Protein-Dipstick Negative (Negative); Specific Gravity, Urine 1.025 (1.002-1.030); Urine Bilirubin Dipstick Negative (Negative); Urine Clarity Clear (Clear); Urine Urobilinogen Normal (Normal)
[2021-09-13 21:47] LABS: ALB/GLOB Ratio 1.1 RATIO (0.9-2.4); AST(SGOT) 23 U/L (15-37); Alanine Aminotransfer ALT/SGPT 31 U/L (16-61); Albumin, Serum 3.9 g/dL (3.2-5.0); Alkaline Phosphatase 77 U/L (45-117); Anion Gap 9 (5-15); BUN 18 mg/dL (7-18); BUN/Creat Ratio 16.4 RATIO (10-20); Calcium,Total 9.7 mg/dL (8.5-10.1); Chloride 108 mmol/L (98-107); EST Glomerular Filtration Rate 73 mL/min (>60); Est Glom Filt Rate - Afr Amer 88 mL/min (>60); Estimated Creatinine Clearance 77.01 ml/min; Globulin 3.4 g/dL (2.2-4.2); Glucose 110 mg/dL (74-106); Potassium 3.6 mmol/L (3.5-5.1); Protein, Total 7.3 g/dL (6.4-8.2); Sodium Level 140 mmol/L (136-145); Troponin-I HS 5 pg/mL (3.0-78.0)
[2021-09-13 21:52] LABS: Bacteria 2+ /hpf (None Seen); White Blood Cells 5-10 SEEN /hpf (0-5)
[2021-09-13 22:05] LABS: Lactic Acid 0.9 mmol/L (0.4-1.9)
[2021-09-13 22:13] LABS: Differential Indicated SCAN CRITERIA MET
[2021-09-13 22:14] LABS: Differential Comment SCANNED
[2021-09-16 13:00] LABS: Tacrolimus (FK506) 4.5 ng/mL (2.0-20.0)
== END 2021-09-13 23:22 | disposition home or self-care (01) ==
PROVIDERS: Emergency Provider Emergency Medicine; PCP Family Medicine
DX: J44.0 Chronic obstructive pulmonary disease with (acute) lower respiratory infection (principal); J20.9 Acute bronchitis, unspecified; Z94.2 Lung transplant status; F41.9 Anxiety disorder, unspecified; M19.90 Unspecified osteoarthritis, unspecified site; I25.10 Atherosclerotic heart disease of native coronary artery without angina pectoris; E11.9 Type 2 diabetes mellitus without complications; K21.9 Gastro-esophageal reflux disease without esophagitis; E78.5 Hyperlipidemia, unspecified; I10 Essential (primary) hypertension; Z99.81 Dependence on supplemental oxygen; Z79.899 Other long term (current) drug therapy; Z87.891 Personal history of nicotine dependence
CPT/HCPCS: 71045; 80053; 80197; 81001; 83605; 84484; 85025; 87040; 87077; 87086; 87088; 87186; 87426; 87804; 87807; 93005; 99283; A4216

== ENCOUNTER 2021-11-03 07:57 | Outpatient (CLI) | payer MEDICARE, SELFPAY ==
--- NOTE | 2021-11-03 07:58 | MRI_ITS ---
STUDY: MR Spine Lumbar W/O Contrast 11/03/2021 2:20 PM REASON FOR EXAM: Male, 61 years old. Back pain LOW BACK PAIN, LEFT LEG NUMBNESS, TINGLING, PAIN TECHNIQUE: MR Spine Lumbar W/O Contrast Standardized fat and water weighted pulse sequences were obtained COMPARISON: 07.22.21 xr FINDINGS: T12-L1: Normal endplates. Normal disc height, hydration and morphology. Normal bilateral facet joints. Normal central canal and bilateral lateral recesses. Normal bilateral intervertebral neural foramina. There is straightening of the normal lumbar lordosis. There is no substantial scoliosis. Normal conus medullaris that terminates at the L1. L1-2: Normal endplates. Normal disc height and morphology. Normal central canal and intervertebral neuroforamina. L2-3: Loss of intervertebral disc height. There is endplate spondylosis of the vertebral body. Normal central canal and intervertebral neuroforamina. There is bilateral facet arthropathy. Bone glue noted. Superior endplate compression deformity. This is old.There is bilateral ligamentum flavum thickening. L3-4: Loss of intervertebral disc height. There is endplate spondylosis of the vertebral body. Normal central canal and intervertebral neuroforamina. There is bilateral facet arthropathy. Bone glue noted. Superior endplate compression deformity. This is old.There is bilateral ligamentum flavum thickening. L4-5: Loss of intervertebral disc height. There is endplate spondylosis of the vertebral body. Bilateral neural foraminal stenosis. Compression of exiting nerve roots. There is bilateral facet arthropathy. Bone glue noted. Superior endplate compression deformity. This is old.There is bilateral ligamentum flavum thickening. L5-S1: Normal endplates. Normal disc height and morphology. Normal central canal and intervertebral neuroforamina. There is bilateral facet arthropathy. There is bilateral ligamentum flavum thickening. Normal visualized sacral ala. Normal visualized paraspinous soft tissue structures. MRI/Spine Lumbar (Routine) IMPRESSION: Multilevel degenerative changes, as described above. There is mild straightening of the normal lumbar lordosis. This can suggest back strain. L4-5: Bilateral neural foraminal stenosis. Compression of exiting nerve roots. Electronically Signed: Clement Blal MD at 14:24 EST , Service support ,
== END 2021-11-03 23:59 | disposition short-term general hospital (02) ==
LOC: MRI 07:58
PROVIDERS: PCP Family Medicine; Referring Provider Orthopaedic Surgery; Visit Provider Orthopaedic Surgery
DX: M51.36 Other intervertebral disc degeneration, lumbar region (principal); M54.50 Low back pain, unspecified
CPT/HCPCS: 72148

== ENCOUNTER → 2022-08-16 | Outpatient (CLI) | payer MEDICARE, SELFPAY ==
--- NOTE | 2022-08-16 12:15 | RAD_ITS ---
INDICATION: Fell backwards while sleeping in her recliner. The recliner broke. Majority of the pain is in the lower back. 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 EXAMINATION/TECHNIQUE: X-RAY - XR Spine Lumbar 2 or 3 Views COMPARISON: MRI of the spine lumbar spine, November 03, 2021. FINDINGS: VERTEBRAE: There are compression deformities of L2-L4 with vertebral plasty. The remainder of the vertebral axial heights are maintained. There is generalized osteopenia of the visualized osseous structures No acute fracture. No spondylolisthesis. Preservation of the normal lumbar lordosis. No significant facet arthropathy. DISCS: Minimal disc space narrowing. INCLUDED ABDOMEN: Atherosclerotic changes of the abdominal aorta and iliac arteries RAD/Lumbar Spine 2 or 3 Views IMPRESSION: Remote compression deformities of L2-L4 with vertebral plasty. No acute fracture or subluxation is noted. Electronically Signed: Anurag San DO at 22:40 EDT ,
--- NOTE | 2022-08-16 12:15 | RAD_ITS ---
INDICATION: Fell backwards while sleeping in her recliner. The recliner broke. Majority of pain in his lower back. History of secondary osteoporosis due to steroid therapy for lung transplant. History of multiple compression fractures and vertebral plasties. EXAMINATION/TECHNIQUE: X-RAY - thoracic spine 3 views COMPARISON: September 21, 2018. FINDINGS: VERTEBRAE: There is evidence of interval compression fracture and vertebral plasty of the T7 vertebral body which was not previously noted. The remainder of the vertebral axial heights are maintained. No acute fracture. Generalized osteopenia. No spondylolisthesis. Preservation of the normal thoracic kyphosis. No significant facet arthropathy. DISCS: Disc spaces are maintained. INCLUDED CHEST/ABDOMEN: Evidence of median sternotomy. Not previously noted. RAD/Thoracic Spine 3 Views IMPRESSION: Interval compression deformity of vertebral plasty of T7. There is no acute fracture or subluxation. Electronically Signed: Anurag San DO at 22:42 EDT ,
== END | disposition home or self-care (01) ==
LOC: RAD 12:11
PROVIDERS: PCP Family Medicine; Referring Provider Family Medicine; Visit Provider Family Medicine
DX: M54.6 Pain in thoracic spine (principal)
CPT/HCPCS: 72072; 72100

== ENCOUNTER → 2023-04-07 | Outpatient (CLI) | payer MEDICARE, MEDICAID, SELFPAY ==
--- NOTE | 2023-04-07 13:20 | RAD_ITS ---
INDICATION: L HIP PAIN left hip pain, groin pain, sciatica EXAMINATION/TECHNIQUE: X-RAY - XR Hip Unilateral with Pelvis when performed; 2-3 Views COMPARISON: X-rays pelvis and left hip 07/22/2021. FINDINGS: Surgical hardware in the right hip partially included and essentially unchanged. No acute fracture demonstrated. The left femoral head is normal in contour. No dislocation at the hips. Mild degenerative changes of the left hip with joint space narrowing and subchondral sclerosis, not significantly changed compared to prior. Vertebroplasty changes lower lumbar spine partially included. RAD/HIP, UNI W/ Pelvis 2-3 Views IMPRESSION: No evidence of fracture. Right total hip arthroplasty. Electronically Signed: Angella Nevarez MD at 16:56 EDT ,
== END | disposition home or self-care (01) ==
LOC: LAB 12:56 → RAD 12:56
PROVIDERS: PCP Family Medicine; Referring Provider Family Medicine; Visit Provider Family Medicine
DX: M25.552 Pain in left hip (principal); M79.605 Pain in left leg
CPT/HCPCS: 73502

== ENCOUNTER → 2023-06-09 | Outpatient (CLI) | payer MEDICARE, MEDICAID, SELFPAY ==
--- NOTE | 2023-06-09 15:55 | RAD_ITS ---
STUDY: X-RAY - RIGHT SHOULDER REASON FOR EXAM: Male, 63 years old. Shoulder pain. TECHNIQUE: 4 view(s) of the shoulder. COMPARISON: None. FINDINGS: Mild osteopenia. Mild arthrosis of the glenohumeral joint. Mild arthrosis of the AC joint. Normal acromion. Normal soft tissues. The soft tissue structures are unremarkable. Low volume inspiration of the right lung with basilar atelectasis and sternotomy wires. RAD/Shoulder min 2 Views IMPRESSION: Osteopenia with mild arthrosis of the glenohumeral and acromioclavicular joints. No acute abnormality or erosive changes. Electronically Signed: Tu Coleman MD at 10:27 EDT ,
--- NOTE | 2023-06-09 15:55 | RAD_ITS ---
STUDY: X-RAY - LUMBAR SPINE REASON FOR EXAM: Male, 63 years old. Radiculopathy. Status post multiple arthroplasties. TECHNIQUE: 4 view(s) of the lumbar spine were obtained. COMPARISON: Lumbar spine x-rays dated August 16, 2022. FINDINGS: Osteopenia. Normal lumbar lordosis. No substantial scoliosis. Normal alignment of the vertebrae. Anterior wedge compression deformities of L2, L3 and L4, relatively unchanged with changes of kyphoplasty at each of these levels. No complicating features noted. Mild intervertebral disc space narrowing without osteophyte formation. Marked vascular calcification, unchanged. RAD/L/S Spine Min 4 Views IMPRESSION: Stable osteopenia, anterior wedge compression deformities of L2, L3 and L4 with kyphoplasty changes at each of these levels. Mild diffuse lower thoracic and lumbosacral spondylosis. Electronically Signed: Tu Coleman MD at 10:25 EDT ,
== END | disposition home or self-care (01) ==
LOC: RAD 15:51
PROVIDERS: PCP Family Medicine; Referring Provider Anesthesiology Pain Medicine; Visit Provider Anesthesiology Pain Medicine
DX: M25.511 Pain in right shoulder (principal)
CPT/HCPCS: 72110; 73030

== ENCOUNTER → 2024-05-01 | Outpatient (CLI) | payer MEDICARE, MEDICAID, SELFPAY ==
--- NOTE | 2024-05-01 11:08 | RAD_ITS ---
STUDY: X-RAY - LUMBAR SPINE REASON FOR EXAM: Male, 64 years old. LUMBAR DEGENERATIVE DISC DISEASE TECHNIQUE: 2 view(s) of the lumbar spine were obtained. COMPARISON: 08/16/2022 FINDINGS: Normal lumbar lordosis. There is no substantial scoliosis. There is a normal alignment of the vertebrae. No change in the chronic mild wedge compression fractures of L2, L3, and L4 treated with vertebroplasty. Normal disc space heights. Multilevel facet hypertrophy The soft tissue structures are unremarkable. RAD/Lumbar Spine 2 or 3 Views IMPRESSION: 1. No change in chronic mild wedge compression fractures of L2, L3, and L4 treated with vertebroplasty. 2. Degenerative disc disease. Electronically Signed: Jarret Hoff MD at 8:51 EDT ,
== END | disposition home or self-care (01) ==
LOC: RAD 11:05
PROVIDERS: PCP Family Medicine; Referring Provider Clinical Nurse Specialist Adult Health; Visit Provider Clinical Nurse Specialist Adult Health
DX: M51.36 Other intervertebral disc degeneration, lumbar region (principal)
CPT/HCPCS: 72100

== ENCOUNTER 2024-08-09 07:32 | Day surgery (SDC) | payer MEDICARE, MEDICAID, SELFPAY ==
[2024-08-09] VITALS (7 sets, daily range): BP systolic 103–135; BP diastolic 79–84; PULSE 69–77; RESP 16–18; TEMP 36–36.6; O2SAT 94–99; BMI 28.5
--- OUTSIDE RECORDS SUMMARY | 2024-08-09 07:44 | XMS RPT_ITS | CCD ---
Author Organization [facility] Care Team Providers Care Anesthesiologists' Assistant Name Role Phone Taina Calhoun Unavailable Unavailable Malys, Liana A Primary Care Provider Malys, Liana A Primary Care Provider [phone] Malys, Liana A Primary Care Provider Malys, Liana A Primary Care Provider Malys, Liana A Primary Care Provider Malys, Liana A Primary Care Provider Malys DO, Liana Primary Care Provider Jordon RN, Lala Unavailable Unavailable Yris POWELL, Comfort Unavailable Unavailable Alfonso TERAN, Julia Gutierrez Unavailable [phone] Axel CUNHA, PhD, MPH, James Sahu Unavailable Malys, Liana A Primary Care Provider Malys, Liana A Primary Care Provider [phone] PROVIDER, UNKNOWN Referring Unavailable Malys, Liana Primary Care Unavailable Nick Lopez Attending Unavailable PROVIDER, UNKNOWN Referring Unavailable Malys, Liana Primary Care Unavailable Nick Lopez Attending Unavailable PROVIDER, UNKNOWN Referring Unavailable Malys, Liana Primary Care Unavailable Nick Lopez Attending Unavailable PROVIDER, UNKNOWN Referring Unavailable Malys, Liana Primary Care Unavailable Nick Lopez Attending Unavailable PROVIDER, UNKNOWN Referring Unavailable Malys, Liana Primary Care Unavailable Nick Lopez Attending Unavailable Malys, Liana Primary Care Unavailable PROVIDER, UNKNOWN Referring Unavailable Nick Lopez Attending Unavailable Nick Lopez Attending Unavailable Malys, Liana Primary Care Unavailable PROVIDER, UNKNOWN Referring Unavailable Nick Lopez Attending Unavailable Malys, Liana Primary Care Unavailable PROVIDER, UNKNOWN Referring Unavailable Malys, Liana Primary Care Unavailable PROVIDER, UNKNOWN Referring Unavailable Matthew Davila Attending Unavailable Malys, Liana Primary Care Unavailable PROVIDER, UNKNOWN Referring Unavailable Nick Lopez Attending Unavailable Malys DO, Liana Primary Care Provider Jordon POWELL, Lala Unavailable Unavailable Yris POWELL, Comfort Unavailable Unavailable Julia Hamiltno PA-C Unavailable Axel CUNHA, PhD, MPH, James Sahu Unavailable Malys, Liana A Primary Care Provider Malys, Liana A Primary Care Provider Malys, Liana A Primary Care Provider [phone] Malys DO, Liana Primary Care Provider Jordon POWELL, Lala Unavailable Unavailable Yris POWELL, Comfort Unavailable Unavailable Julia Marie Unavailable [phone] Axel CUNHA, PhD, MPH, James Sahu Unavailable Malys DO, Liana A Primary Care Provider Jerman Vitale MD Unavailable Malys DO, Liana A Unavailable Julia Hamilton PA-C Unavailable KERMIT IVY Referring Unavailab le MALYS, LIANA A Primary Care Unavailable KOFI, KERMIT PERDOMO Referring Unavailab le RADHAAR RAE Attending Unavailable MALYS, LIANA A Primary Care Unavailable KOFI, KERMIT PERDOMO Referring Unavailab le MALYS, LIANA A Primary Care Unavailable KOFI, KERMIT PERDOMO Referring Unavailab le RADHAAR RAE Attending Unavailable MALYS, LIANA A Primary Care Unavailable KOFI, KERMIT PERDOMO Referring Unavailab le MALYS, LIANA A Primary Care Unavailable KOFI, KERMIT PERDOMO Referring Unavailab le MALYS, LIANA A Primary Care Unavailable MALYS, LIANA A Primary Care Unavailable KOFI, KERMIT PERDOMO Attending Unavailab le SELF Referring Unavailable KOFI, KERMIT PERDOMO Attending Unavailab le MALYS, LIANA A Primary Care Unavailable SMALL, TOMASZ Attending Unavailable MALYS, LIANA Primary Care Unavailable SMALL, TOMASZ Referring Unavailable SMALL, TOMASZ Attending Unavailable MALYS, LIANA Primary Care Unavailable SMALL, TOMASZ Referring Unavailable SMALL, TOMASZ Referring Unavailable SMALL, TOMASZ Attending Unavailable MALYS, LIANA Primary Care Unavailable MALYS, LIANA Primary Care Unavailable SMALL, TOMASZ Attending Unavailable SMALL, TOMASZ Referring Unavailable MALYS, LIANA Primary Care Unavailable SMALL, TOMASZ Attending Unavailable SMALL, TOMASZ Referring Unavailable MALYS, LIANA Primary Care Unavailable SMALL, TOMASZ Attending Unavailable SMALL, TOMASZ Referring Unavailable MALYS, LIANA Primary Care Unavailable MALYS, LIANA Attending Unavailable MALYS, LIANA Referring Unavailable MALYS, LIANA Primary Care Unavailable SMALL, TOMASZ Referring Unavailable SMALL, TOMASZ Attending Unavailable MALYS, LIANA Primary Care Unavailable TYRONE, TRAVIS Referring Unavailable TYRONE, TRAVIS Attending Unavailable MALYS, LIANA Primary Care Unavailable SMALL, TOMASZ Referring Unavailable SMALL, TOMASZ Attending Unavailable MALYS, LIANA Primary Care Unavailable SMALL, TOMASZ Referring Unavailable SMALL, TOMASZ Attending Unavailable MALYS, LIANA Attending Unavailable DAVIDCKAKBAR Referring Unavailable MALYS, LIANA Primary Care Unavailable MALYS, LIANA Primary Care Unavailable MALYS, LIANA Attending Unavailable MALYS, LIANA Referring Unavailable SMALL, TOMASZ L Referring Unavailable SMALL, TOMASZ L Attending Unavailable MALYS, LIANA Primary Care Unavailable MALYS, LIANA Primary Care Unavailable SMALL, TOMASZ L Referring Unavailable SMALL, TOMASZ L Attending Unavailable MALYS, LIANA Primary Care Unavailable SMALL, TOMASZ L Referring Unavailable SMALL, TOMASZ L Attending Unavailable NICK LOPEZ Attending Unavailable MALYS, LIANA Primary Care Unavailable SMALL, TOMASZ L Referring Unavailable MALYS, LIANA Referring Unavailable MALYS, LIANA Primary Care Unavailable NICK LOPEZ Attending Unavailable MALYS, LIANA Referring Unavailable MALYS, LIANA Primary Care Unavailable NICK LOPEZ Attending Unavailable MALYS, LIANA Referring Unavailable MALYS, LIANA Primary Care Unavailable NICK LOPEZ Attending Unavailable MALYS, LIANA Primary Care Unavailable NICK LOPEZ Attending Unavailable MALYS, LIANA Referring Unavailable NICK LOPEZ Referring Unavailable NICK LOPEZ Attending Unavailable MALYS, LIANA Primary Care Unavailable NICK LOPEZ Referring Unavailable NICK LOPEZ Attending Unavailable MALYS, LIANA Primary Care Unavailable SMALL, TOMASZ L Attending Unavailable SMALL, TOMASZ L Referring Unavailable MALYS, LIANA Primary Care Unavailable SMALL, TOMASZ L Referring Unavailable SMALLTRETOMASZ L Attending Unavailable MALYS, LIANA Primary Care Unavailable Allergies Allergy Classification Reported Allergen(s) Allergy Type Date of Onset Reaction(s) Facility NSAIDs (7 sources) NSAIDs Drug Allergy 9 Other (See Comments) [facility] Opioid Agonists (7 sources) Codeine Drug Allergy [address] [facility] (2 sources) codeine; Translations: [CODEINE SULFATE] Drug Allergy Hiv/vomiting Pulmonary [facility] Work Phone: (1 source) BREO INHALER drug allergy 6 Made pt breathe harder and heart pulsate [facility] Work Phone: (20 sources) Codeine; Translations: [CODEINE] Drug Allergy 8 [place], [place] (20 sources) NSAIDs Propensity to adverse reactions to drug 9 Other (See Comments) [place], [place] (20 sources) Fluticasone Furoate-Vilanter ol; Translations: [FLUTICASONE FUROATE-VILANTER OL] Propensity to adverse reactions to drug 8 Shortness Of Breath, Other, Other: See Comments [facility] (20 sources) fluticasone Drug Allergy 8 Other, Other: See Comments [facility] (20 sources) Non-steroidal anti-inflammator y agent Drug Intolerance 9 Other [facility] (20 sources) vilanterol; Translations: [VILANTEROL] Drug Allergy 8 Unknown [facility] (20 sources) Wound Dressing Adhesive Drug Allergy 8 [facility] (20 sources) ciprofibrate Drug Allergy 3 [facility] (10 sources) Adhesive Tape; Translations: [ADHESIVE TAPE (ROSINS)] Allergy to substance 8 [facility] Work Phone: (9 sources) Codeine Drug Allergy [facility] (9 sources) vilanterol Drug Allergy 8 Other: See Comments [facility] (1 source) fluticasone; Translations: [FLUTICASONE FUROATE] Drug Allergy 8 [facility] Other [place] [facility] Medications Current Medications Medication Drug Class(es) Dates Sig (Normalized) Sig (Original) acetaminophen 325 mg / HYDROcodone bitartrate 5 mg oral tablet (20 sources) Opioid Agonist Start: 09-01-2021 End: 09-04-2021 HYDROcodone-acetam inophen (NORCO) 5-325 MG per tablet Indications: Sprain of left wrist, initial encounter Take 1 tablet by mouth every 6 hours as needed for Pain for up to 3 days. Intended supply: 3 days. Take lowest dose possible to manage pain 12 tablet 0 09/01/2021 09/04/2021 Active Start: 12-16-2020 End: 12-19-2020 take 1 tablet by mouth every six hours as needed for pain, then take 1 tablet by mouth as needed for pain HYDROcodone-acetaminophen (NORCO) 5-325 MG per tablet Indications: Renal calculus, left Take 1 tablet by mouth every 6 hours as needed for Pain for up to 3 days. Intended supply: 3 days. Take lowest dose possible to manage pain 8 tablet 0 12/16/2020 12/19/2020 Active Start: 01-13-2016 take 1 tablet by mireille th every six hours as needed for pain HYDROCODONE-ACETAMINOPHEN 10-325 MG TABS 1 po every 6 hours as needed for pain HYDROCODONE-ACETAMINOPHEN [id number] Liana Loja DO Start: 12-31-2014 VICODIN 5-300 MG TABS as needed for wrist pain HYDROCODONE-ACETAMINOPHEN [id number] Liana Loja DO Start: 12-31-2014 End: 07-29-2016 HYDROCODONE-ACETAMINOPHEN 5- 325 MG TABS Take one tablet every six hours as needed for pain HYDROCODONE-ACETAMINOPHEN [id number] Liana Loja DO take 1 tablet by mireille th every four hours as needed HYDROcodone-Acetaminophen (NORCO) 10-325 mg per tablet Take 1 tablet by mouth every 4 hours as needed. Active End: 09-01-2021 take 1 tablet by mouth once HYDROcodone-acetaminophen (NORCO) 10-325 MG per tablet Take 1 tablet by mouth. 0 09/01/2021 Discontinued (LIST CLEANUP) alendronic acid 70 mg oral tablet (20 sources) Bisphosphonate Start: 04-09-2019 End: 03-27-2024 alendronate 70 MG tablet Take 1 tablet by mouth every 7 days. 12 tablet 3 06/08/2023 Active take 1 tablet by mireille every week in the morning alendronate (FOSAMAX) 70 mg tablet Take 70 mg by mouth one time a week. In AM with cup of water on empty stomach. Nothing else by mouth and stay upright for 30 min. Active ALPRAZolam 0.25 mg disintegrating oral tablet (2 sources) Benzodiazepine Start: 12-16-2020 ALPRAZolam (NI RAVAM) dissolvable tablet 0.25 mg Start: 08-14-2019 ALPRAZolam (NI RAVAM) dissolvable tablet 0.25 mg amLODIPine 5 mg oral tablet (20 sources) Dihydropyridine Calcium Channel Kiley Start: 06-08-2023 take 1 tablet by mouth once daily amLODIPine 5 MG tablet Take 1 tablet by mouth daily. 90 tablet 3 06/08/2023 Active Start: 07-30-2022 take 2 tablets by mo ut in the morning amLODIPine (Norvasc) 5 MG tablet Take 10 mg by mouth in the morning. 07/30/2022 Active Start: 06-29-2021 End: 05-21-2023 take 1 tablet by mouth in the morning amLODIPine (Norvasc) 5 MG tablet Take 5 mg by mouth in the morning. 0 07/30/2022 Active aspirin 81 mg chewable tablet (20 sources) Platelet Aggregation Inhibitor, Nonsteroidal Anti-inflammatory Drug Start: 04-09-2019 End: 05-10-2024 aspirin 81 MG chewable tablet Chew 81 mg. 04/09/2019 Active take 1 tablet by mouth once nicol y aspirin, enteric coated (ASPIRIN, ENTERIC COATED) 81 mg EC tablet Take 81 mg by mouth once daily. Active azithromycin 250 mg oral tablet (20 sources) Macrolide Antimicrobial Start: 06-29-2021 End: 11-06-2028 azithromycin (Zithromax) 250 MG tablet Take 250 mg by mouth. 06/09/2022 Active Start: 05-12-2016 End: 04-08-2020 azithromycin (ZITHROMAX) 250 MG tablet Take 250 mg by mouth 0 04/09/2019 04/08/2020 Active Start: 05-05-2016 End: 07-29-2016 AZITHROMYCIN 250 MG TABS 2 t ablets by mouth today and then 1 tablet daily for the next 4 days AZITHROMYCIN [id number] Taina Hoover BOOT REPAIRER Start: 01-13-2016 End: 07-29-2016 take 2 tablets by mouth once, then take 1 tablet by mouth once daily, then take 2-5 tablets by mouth AZITHROMYCIN 250 MG TABS 2 po on day 1 then 1 po daily on days 2-5 AZITHROMYCIN [id number] Taina Hoover BOOT REPAIRER Start: 07-21-2015 End: 09-30-2015 take 2 tablets by mouth once, then take 1 tablet by mouth once daily, then take 2-5 tablets by mouth AZITHROMYCIN 250 MG TABS 2 po on day 1 then 1 po daily on days 2-5 AZITHROMYCIN [id number] Monique Khalil [facility] azithromycin (Zi thromax) 500 MG tablet Take 500 mg by mouth. Active take 1 tablet by mouth once azit hromycin (ZITHROMAX) 500 mg tablet Take 500 mg by mouth every Tuesday,Tuesday,Tuesday. Active calcium citrate 1500 mg / cholecalciferol 200 unt oral tablet (20 sources) Vitamin D Start: 06-08-2023 End: 11-07-2023 take 1 tablet by mouth every twelve hours Calcium Citrate-Vitamin D (RA Calcium Citrate Plus Vit D) 315-5 MG-MCG tablet Take 1 tablet by mouth every 12 hours. 180 tablet 3 11/07/2023 Active Start: 07-01-2022 End: 03-23-2024 take 1 tablet by mouth in the morning calcium citrate-vitamin D2 (Citracal+D) 315-200 MG-UNIT tablet Take 1 tablet by mouth in the morning and 1 tablet in the evening. 0 07/01/2022 03/23/2024 Discontinued (Duplicate order) Start: 07-01-2022 take 1 tablet by mireille th every twelve hours Calcium Citrate-Vitamin D 315-200 MG-UNIT tablet Take 1 tablet by mouth every 12 hours. 180 tablet 3 07/01/2022 Active Start: 06-29-2021 take 1 tablet by mireille th every twelve hours Calcium Citrate-Vitamin D 315-200 MG-UNIT tablet Take 1 tablet by mouth every 12 hours. 180 tablet 3 06/29/2021 Active Start: 04-09-2019 calcium citrat e-vitamin D2 315-250 MG-UNIT tablet Take 1 tablet by mouth. 04/09/2019 Active Start: 04-09-2019 take 1 tablet by mouth once ca lcium citrate-vitamin D (CITRICAL + D) 315-250 MG-UNIT TABS per tablet Take 1 tablet by mouth 0 04/09/2019 Active take 1 tablet by mireille th twice daily at mealtime calcium citrate-vitamin D3 (CITRACAL+D) 315 mg-5 mcg (200 unit) tab Take 1 tablet by mouth two times a day with meals. Active Calcium Citrate / Vitamin D (19 sources) Start: 04-09-2019 take 1 tablet by mouth once calcium citrate-vitamin D (CITRICAL + D) 315-250 MG-UNIT TABS per tablet Take 1 tablet by mouth 0 04/09/2019 Active citalopram 10 mg oral tablet (20 sources) Serotonin Reuptake Inhibitor Start: 05-22-2023 End: 02-05-2024 take 1 tablet by mouth once daily Citalopram 10 MG tablet Take 1 tablet by mouth daily. 30 tablet 2 11/07/2023 Active Start: 05-21-2023 End: 05-21-2023 Citalopram (CELEXA) tablet 1 0 mg dilTIAZem hydrochloride 30 mg oral tablet (20 sources) Calcium Channel Kiley Start: 05-11-2019 diltiazem (CARDIZEM) 30 MG tablet Take 30 mg by mouth 0 05/11/2019 Active 1 ml diphenhydrAMINE hydrochloride 50 mg/ml cartridge (2 sources) Histamine-1 Receptor Antagonist Start: 12-16-2020 End: 12-16-2020 diphenhydrAMINE (BENADRYL) injection 12.5 mg Start: 08-14-2019 End: 08-14-2019 diphenhydrAMINE (BENADRYL) i njection 12.5 mg ergocalciferol 1.25 mg oral capsule (20 sources) Provitamin D2 Compound Start: 06-29-2021 End: 11-07-2023 take 1 capsule by mouth every week Ergocalciferol 1.25 MG (47376 UT) capsule Take 1 capsule by mouth once a week. 12 capsule 3 11/07/2023 Active Start: 04-05-2019 ergocalciferol (Vitamin D-2) 1.25 MG (39563 UT) capsule Take 50,000 Units by mouth. 04/05/2019 Active Start: 04-05-2019 take 1.25 mg by mouth once vit alfredo D (ERGOCALCIFEROL) 1.25 MG (38325 UT) CAPS capsule Take 50,000 Units by mouth 0 04/05/2019 Active gabapentin 400 mg oral capsule (20 sources) Anti-epileptic Agent Start: 05-16-2023 End: 05-16-2023 take 200 mg by mouth once daily 200 mg, Oral, Daily, First dose on 05/16/23 at 0600 Start: 04-29-2022 End: 05-06-2024 gabapentin (Neurontin) 400 M G capsule Take 400 mg by mouth. 04/29/2022 Active Start: 08-10-2021 take 1 capsule by mo uth once daily in the morning, then take 2 capsules by mouth once, then take 1 capsule by mouth once daily in the evening gabapentin 400 MG capsule take 1 capsule by mouth every morning 2 capsules by mouth EVERY AFTERNOON and 1 capsule by mouth every evening 120 capsule 5 08/10/2021 Active Start: 06-08-2019 End: 12-05-2019 gabapentin (NEURONTIN) 400 M G capsule Take 400 mg by mouth. 0 06/08/2019 12/05/2019 Active gabapentin (Neur ontin) 800 MG tablet Take 800 mg by mouth. Active take 1 capsule by mo uth three times daily gabapentin (NEURONTIN) 400 mg capsule Take 400 mg by mouth three times a day. Active 1 ml hydrALAZINE hydrochloride 20 mg/ml injection (2 sources) Arteriolar Vasodilator Start: 12-16-2020 hydrALAZINE (APRESOLINE) injection 5 mg Start: 08-14-2019 hydrALAZINE (A PRESOLINE) injection 5 mg 1 ml HYDROmorphone hydrochloride 1 mg/ml cartridge (4 sources) Opioid Agonist Start: 12-16-2020 HYDROmorphone (DILAUDID) injection 0.25 mg Start: 12-16-2020 HYDROmorphone (DILAUDID) injection 0.5 mg Start: 08-14-2019 HYDROmorphone (DILAUDID) injection 0.25 mg Start: 08-14-2019 HYDROmorphone (DILAUDID) injection 0.5 mg hydrOXYzine hydrochloride 25 mg oral tablet (18 sources) Antihistamine Start: 05-19-2023 End: 06-10-2023 take 1 tablet by mouth three times daily as needed for anxiety hydrOXYzine HCl 25 MG tablet Take 1 tablet by mouth 3 times daily as needed for Anxiety or Insomnia for up to 20 days. 30 tablet 1 05/21/2023 Active take 1 capsule by [facility] every eight hours as needed hydrOXYzine pamoate (VISTARIL) 25 mg capsule Take 25 mg by mouth three times a day as needed. Active isopropyl alcohol 0.7 ml/ml medicated pad (20 sources) Start: 06-08-2023 End: 11-07-2023 Start: 04-29-2022 Start: 06-29-2021 4 ml labetalol hydrochloride 5 mg/ml cartridge (2 sources) beta-Adrenergic Kiley Start: 12-16-2020 labetalol (NORMODYNE;TRANDATE) injection 5 mg Start: 08-14-2019 labetalol (NOR MODYNE;TRANDATE) injection 5 mg lecithin 1200 mg oral capsule (9 sources) take 1 capsule by mouth once daily Lecithin 1,200 mg cap Take 1,200 mg by mouth once daily. Active magnesium oxide 400 mg oral tablet (20 sources) Start: 04-09-2019 End: 11-07-2023 take 2 tablets by mouth in the morning magnesium oxide (Mag-Ox) 400 MG tablet Take 800 mg by mouth in the morning and 800 mg in the evening. 04/09/2019 Active take 2 tablets by mouth twice [place] magnesium oxide 400 mg magnesium tab Take 400 mg by mouth two times a day. Take 2 tablets Active 1 ml meperidine hydrochloride 25 mg/ml cartridge (2 sources) Opioid Agonist Start: 12-16-2020 meperidine (DE MEROL) injection 12.5 mg Start: 08-14-2019 meperidine (DE MEROL) injection 12.5 mg Multiple Vitamin (multivitamin) tablet (10 sources) Start: 11-07-2023 take 1 tablet by mouth once daily Multiple Vitamin (multivitamin) tablet Take 1 tablet by mouth daily. 90 tablet 3 11/07/2023 Active Start: 07-05-2023 End: 11-07-2023 take 1 tablet by mouth once daily Multiple Vitamin (multivitamin) tablet Take 1 tablet by mouth daily. 90 tablet 3 07/05/2023 11/07/2023 Discontinued (Reorder) Multiple Vitamins-Minerals (MULTIVITAMIN ADULT) TABS (20 sources) Start: 04-09-2019 Multiple Vitamins-Minerals (MULTIVITAMIN ADULT) TABS Take 1 tablet by mouth 0 04/09/2019 Active multivitamin (multivitamin) tablet (12 sources) Start: 07-01-2022 take 1 tablet by mouth once daily multivitamin (multivitamin) tablet Take 1 tablet by mouth daily. 90 tablet 3 07/01/2022 Start: 07-01-2022 take 1 tablet by mireille th once daily multivitamin (multivitamin) tablet Take 1 tablet by mouth daily. 90 tablet 3 07/01/2022 Suspended Start: 07-01-2022 take 1 tablet by mireille th once daily multivitamin (multivitamin) tablet Take 1 tablet by mouth daily. 90 tablet 3 07/01/2022 Active Start: 06-29-2021 take 1 tablet by mireille th once daily multivitamin (multivitamin) tablet Take 1 tablet by mouth daily. 90 tablet 3 06/29/2021 Active MULTIVITAMIN ORAL (9 sources) MULTIVITAMIN ORA L Take 1 tablet by mouth. Active MULTIVITAMIN ORA L Take 1 tablet by mouth. 0 Active mycophenolate mofetil 250 mg oral capsule (20 sources) Start: 05-18-2023 End: 05-21-2023 Mycophenolate mofetil (CELLCEPT) capsule 1,000 mg Start: 05-15-2023 End: 05-16-2023 take 1000 mg by mouth twice daily 1,000 mg, Oral, 2 times daily, First dose on Tue05/15/23 at 2215 Start: 03-29-2022 take 1000 mg by mout h twice daily 1,000 mg, Oral, 2 TIMES DAILY, First dose on 03/29/22 at 2100, Until Discontinued Do not crush or break. Start: 04-03-2019 take 4 capsules by m outh in the morning mycophenolate (Cellcept) 250 MG capsule Take 1,000 mg by mouth in the morning and 1,000 mg before bedtime. 04/03/2019 Active Start: 04-03-2019 take 4 capsules by m outh twice daily mycophenolate (CELLCEPT) 250 MG capsule Take 1,000 mg by mouth 2 times daily 0 04/03/2019 Active Start: 04-03-2019 mycophenolate (CELLCEPT) 250 MG capsule Take 500 mg by mouth 0 04/03/2019 Active naloxone hydrochloride 40 mg/ml nasal spray (20 sources) Opioid Antagonist Start: 08-14-2019 naloxone (Na rcan) 4 mg/0.1 mL nasal spray Administer 1 spray into affected nostril(s). 08/14/2019 Active 2 ml ondansetron 2 mg/ml injection (2 sources) Serotonin-3 Receptor Antagonist Start: 12-16-2020 End: 12-16-2020 ondansetron (ZOFRAN) injection 4 mg Start: 08-14-2019 End: 08-14-2019 ondansetron (ZOFRAN) injecti on 4 mg 24 hr oxybutynin chloride 10 mg extended release oral tablet (20 sources) Cholinergic Muscarinic Antagonist Start: 04-23-2022 take 1 tablet by mouth every twenty-four hours in the morning oxybutynin XL (Ditropan-XL) 10 MG 24 hr tablet Take 10 mg by mouth in the morning. 04/23/2022 Active Start: 04-23-2022 take 1 tablet by mireille th once daily oxybutynin CR 10 MG Tab SR 24 HR tablet Take 1 tablet by mouth daily. 04/23/2022 Active pantoprazole 40 mg delayed release oral tablet (20 sources) Proton Pump Inhibitor Start: 05-16-2023 End: 05-16-2023 take 10 mL by mouth once daily 40 mg, IntraVENous, Administer over 2 Minutes, Every morning, First dose on Tue05/16/23 at 0900 Give if unable to take by mouth or feeding tube. Reconstitute 40 mg vial with 10 ml NS. Vial expires 2 hrs after reconstitution. Start: 04-09-2019 End: 11-07-2023 take 1 tablet by mouth in the morning pantoprazole (ProtoNix) 40 MG EC tablet Take 40 mg by mouth in the morning and 40 mg in the evening. 04/09/2019 Active phenazopyridine hydrochloride 200 mg oral tablet (2 sources) Start: 08-14-2019 End: 08-19-2019 take 1 tablet by mouth three times daily as needed for pain phenazopyridine (PYRIDIUM) 200 MG tablet Take 1 tablet by mouth 3 times daily as needed for Pain (burning with urination) 15 tablet 0 08/14/2019 08/19/2019 Active prednisoLONE acetate-bromfenac 1-0.075 % drps (9 sources) prednisoLONE acetate-bromfenac 1-0.075 % drps Use 1 Drop in eyes two times a day. Active prednisoLONE petra cross-bromfenac 1-0.075 % drps Use 1 Drop in eyes two times a day. 0 Active predniSONE 5 mg oral tablet (20 sources) Corticosteroid Start: 06-07-2019 End: 11-07-2023 predniSONE (Deltasone) 5 MG tablet Take 5 mg by mouth. 06/07/2019 Active Start: 06-10-2017 End: 08-04-2017 take 2 tablets by mouth once daily PREDNISONE 20 MG TABS Take 2 tabs by mouth daily x 5 days PREDNISONE [id number] Esther Seymour LPN Start: 02-24-2017 End: 03-08-2017 PREDNISONE 10 MG TABS Take 4 tabs by mouth for 3 days, then 3 tabs by mouth for 3 days, then 2 tabs by mourth for 3 days, then 1 tab by mouth for 3 days. PREDNISONE [id number] Sanam Akers [employer]ISH[employer] Start: 05-05-2016 End: 05-17-2016 PREDNISONE 10 MG TABS Take 4 tabs by mouth for 3 days, then 3 tabs by mouth for 3 days, then 2 tabs by mourth for 3 days, then 1 tab by mouth for 3 days. PREDNISONE [id number] Sanam Akers [employer] Start: 09-03-2015 End: 09-30-2015 take 3 tablets by mouth once daily, then take 2 tablets by mouth once daily, then take 1 tablet by mouth once daily, then take 0.5 tablet by mouth once daily PREDNISONE 20 MG TABS 3 po daily x 3 days then 2 po daily x 3 days then 1 po daily x 3 days then 1/2 tablet po daily x 4 days PREDNISONE [id number] Liana Loja, 1 ml promethazine hydrochloride 25 mg/ml injection (2 sources) Phenothiazine Start: 12-16-2020 End: 12-16-2020 promethazine (PHENERGAN) injection 6.25 mg Start: 08-14-2019 End: 08-14-2019 promethazine (PHENERGAN) inj ection 6.25 mg rosuvastatin calcium 10 mg oral tablet (20 sources) HMG-CoA Reductase Inhibitor Start: 04-09-2019 End: 11-07-2023 take 1 tablet by mouth in the morning rosuvastatin (Crestor) 10 MG tablet Take 10 mg by mouth in the morning. 04/09/2019 Active SITagliptin 100 mg oral tablet (20 sources) Dipeptidyl Peptidase 4 Inhibitor Start: 04-09-2019 End: 11-07-2023 SITagliptin (Januvia) 100 MG tablet Take 100 mg by mouth. 04/09/2019 Active sulfamethoxazole 800 mg / trimethoprim 160 mg oral tablet (20 sources) Dihydrofolate Reductase Inhibitor Antibacterial, Sulfonamide Antimicrobial Start: 05-15-2023 End: 05-16-2023 take 1 tablet by mouth twice daily 1 tablet, Oral, 2 times daily, First dose on 05/15/23 at 2215 Suspected Indication (Select all that apply): Immunocomp Host Prophylaxis Start: 08-10-2021 take 1 tablet by mireille th once in the morning sulfamethoxazole-trimethoprim (Bactrim D S) 800-160 MG tablet Take 1 tablet by mouth in the morning and 1 tablet before bedtime. 08/10/2021 Active Start: 08-10-2021 End: 11-06-2028 take 1 tablet by mouth three times weekly Sulfamethoxazole-trimethoprim 800-160 MG per tablet Take 1 tablet by mouth three times a week. 36 tablet 3 11/07/2023 11/06/2028 Active Start: 04-09-2019 End: 04-08-2020 take 1 tablet by mouth once sulfamethoxazole-trimethoprim (BACTRIM DS;SEPTRA DS) 800-160 MG per tablet Take 1 tablet by mouth Tue-Tue-Tue 0 04/09/2019 04/08/2020 Active take 1 tablet by mireille th twice daily sulfamethoxazole-trimethoprim (BACTRIM DS;SEPTRA DS) 800-160 MG per tablet Take 1 tablet by mouth 2 times daily 0 Active tacrolimus 0.5 mg oral capsule (20 sources) Calcineurin Inhibitor Immunosuppressant Start: 05-18-2023 End: 05-21-2023 Tacrolimus (PROGRAF) capsule 1 mg Start: 05-15-2023 End: 05-16-2023 take 0.5 mg by mouth twice daily 0.5 mg, Oral, 2 times daily, First dose on Tue05/15/23 at 2215 Start: 06-02-2022 take 1 capsule by mo [place] once daily in the morning, then take 1 capsule by mouth once daily in the evening tacrolimus (PROGRAF) 0.5 MG capsule Take 1 capsule by mouth daily every morning AND 1 capsule every evening. 180 capsule 3 06/02/2022 Active Start: 03-29-2022 take 1 mg by mouth twice daily 1 mg, Oral, 2 TIMES DAILY, First dose on Tue03/29/22 at 2100, Until Discontinued Start: 06-29-2021 take 1 capsule by mo [facility] once daily in the morning, then take 1 capsule by mouth once daily in the evening tacrolimus (generic) 0.5 MG capsule Take 1 capsule by mouth daily every morning AND 1 capsule every evening. 180 capsule 3 06/29/2021 Active Start: 08-06-2019 tacrolimus (Pr ograf) 0.5 MG capsule Take 1 mg by mouth. 08/06/2019 Active 28 actuat teriparatide 0.02 mg/actuat pen injector (16 sources) Parathyroid Hormone Analog Start: 03-27-2024 inject 0.08 mL by subcutaneous injection once daily teriparatide (Forteo) injection Indications: Other osteoporosis without current pathological fracture Inject 0.08 mL (20 mcg) under the skin daily. 1 each 5 03/27/2024 Active Start: 03-27-2024 inject 20 ug by subc utaneous injection once daily Teriparatide, Recombinant, 620 MCG/2.48ML Solution Pen-injector Inject 20 mcg under the skin daily. 03/27/2024 Active therapeutic kzsyrxlvsdeb-bhcl-teyzafdd (Theragran-M) tablet (20 sources) Start: 07-01-2022 take 1 tablet by mouth in the morning therapeutic luedvadpjsgi-sbmt-eztvmtrt (Theragran-M) tablet Take 1 tablet by mouth in the morning. 07/01/2022 Active Start: 07-01-2022 take 1 tablet by mireille th in the morning therapeutic xqgrkiqmyhwr-mbfi-vqpuwvjo (Theragran-M) tablet Take 1 tablet by mouth in the morning. 0 07/01/2022 Active valACYclovir 500 mg oral tablet (20 sources) Herpesvirus Nucleoside Analog DNA Polymerase Inhibitor, Herpes Simplex Virus Nucleoside Analog DNA Polymerase Inhibitor, Herpes Zoster Virus Nucleoside Analog DNA Polymerase Inhibitor Start: 04-09-2019 valACYclovir (VALTR EX) 500 MG tablet Take 500 mg by mouth 0 04/09/2019 Active Start: 04-22-2015 End: 09-30-2015 take 1 tablet by mouth twice daily VALACYCLOVIR HCL 1 GM TABS 1 po Twice daily x 7 days VALACYCLOVIR HCL [id number] Monique Khalil LPN Completed/Discontinued Medications Medication Drug Class(es) Dates Sig (Normalized) Sig (Original) acetaminophen 325 mg oral tablet (20 sources) Start: 05-18-2023 End: 05-21-2023 take 1 tablet by mouth every four hours as needed Acetaminophen (TYLENOL) tablet 650 mg Start: 05-15-2023 End: 05-16-2023 take 1 tablet by mouth every eight hours acetaminophen (Tylenol) tablet 1,000 mg Start: 09-01-2021 End: 09-01-2021 acetaminophen (TYLENOL) tabl et 1,000 mg Start: 12-16-2020 End: 12-16-2020 acetaminophen (TYLENOL) tabl et 1,000 mg Start: 10-04-2019 End: 05-03-2022 take 2 tablets by mouth every six hours as needed acetaminophen (Tylenol) 325 MG tablet Take 650 mg by mouth every 6 hours as needed. 05/03/2022 Active Start: 08-14-2019 End: 08-14-2019 acetaminophen (TYLENOL) tabl et 1,000 mg take 2 capsules by m outh every six hours as needed acetaminophen 325 mg cap Take 2 capsules by mouth every 6 hours as needed for pain. Active acetaminophen 325 mg / butalbital 50 mg / caffeine 40 mg / codeine phosphate 30 mg oral capsule (5 sources) Opioid Agonist, Barbiturate, Central Nervous System Stimulant, Methylxanthine Start: 01-02-2015 End: 03-16-2017 RRETUYUABH-ZSQC-MPJW-COD 66-973-96-30 MG CAPS Take one capsule every four hours as needed for migraines SXBRVQRSIU-ZLVY-UVYO-COD [id number] Taina Devries acetaminophen 325 mg / oxyCODONE hydrochloride 5 mg oral tablet (8 sources) Opioid Agonist Start: 03-29-2022 End: 03-29-2022 oxyCODONE-acetaminophen (PERCOCET) 5-325 MG per tablet 1 tablet Start: 03-29-2022 End: 04-01-2022 oxyCODONE-acetaminophen (PER COCET) 5-325 MG per tablet Indications: Closed displaced fracture of neck of fifth metacarpal bone of left hand, initial encounter Take 1 tablet by mouth every 6 hours as needed for Pain for up to 3 days. Intended supply: 3 days. Take lowest dose possible to manage pain 12 tablet 0 03/29/2022 04/01/2022 Active Start: 09-07-2019 End: 09-14-2019 take 1 tablet by mouth every six hours as needed for pain oxyCODONE-acetaminophen (PERCOCET) 5-325 MG per tablet Indications: Renal calculi Take 1 tablet by mouth every 6 hours as needed for Pain for up to 7 days. 10 tablet 0 09/07/2019 09/14/2019 Active Start: 08-14-2019 End: 08-17-2019 take 1 tablet by mouth every six hours as needed for pain, then take 1 tablet by mouth as needed for pain oxyCODONE-acetaminophen (PERCOCET) 5-325 MG per tablet Indications: Post-op pain Take 1 tablet by mouth every 6 hours as needed for Pain for up to 3 days. Intended supply: 3 days. Take lowest dose possible to manage pain 10 tablet 0 08/14/2019 08/17/2019 Active Acyclovir (ZOVIRAX) 900 mg in Sodium chloride 0.9%, with overfill 293 mL (total volume) IVPB (2 sources) Start: 05-16-2023 End: 05-17-2023 Acyclovir (ZOVIRAX) 900 mg in Sodium chloride 0.9%, with overfill 293 mL (total volume) IVPB acyclovir (Zovirax) 950 mg in sodium chloride 0.9 % 150 mL IVPB (2 sources) Start: 05-15-2023 End: 05-16-2023 acyclovir (Zovirax) 950 mg in sodium chloride 0.9 % 150 mL IVPB albuterol 0.83 mg/ml inhalant solution (6 sources) beta2-Adrenergic Agonist Start: 12-16-2016 End: 03-16-2017 ALBUTEROL SULFATE (2.5 MG/3ML) 0.083% NEBU 1 ampule inhaled every 4 hours PRN shortness of breath ALBUTEROL SULFATE [id number] Sanam Akers [employer] Start: 05-12-2016 End: 03-16-2017 take 1 dose by inhalation every two hours ALBUTEROL SULFATE 0.63 MG/3ML NEBU One vial INH q 2 hours ALBUTEROL SULFATE [id number] Sanam Akers [employer] Start: 09-03-2015 End: 07-29-2016 ALBUTEROL SULFATE (2.5 MG/3M L) 0.083% NEBU inhalation [id number] ALBUTEROL SULFATE [id number] Taina Hoover LPN albuterol 0.833 mg/ml / ipratropium bromide 0.167 mg/ml inhalant solution (20 sources) Anticholinergic, beta2-Adrenergic Agonist Start: 07-29-2016 IPRATROPIUM-ALBUTEROL 0.5-2.5 (3) MG/3ML SOLN 1 ampule every 6 hours as needed IPRATROPIUM-ALBUTEROL [id number] Sanam Akers [employer] Start: 05-12-2016 End: 05-18-2017 IPRATROPIUM-ALBUTEROL 0.5-2. 5 (3) MG/3ML SOLN every 4 hours IPRATROPIUM-ALBUTEROL [id number] Taina Hoover LPN Start: 01-29-2016 End: 05-18-2017 COMBIVENT RESPIMAT 20-100 MC G/ACT AERS 1 puff inhaled every 6 hours as needed for shortness of breath IPRATROPIUM-ALBUTEROL [id number] Liana Loja DO Start: 12-31-2014 End: 12-29-2015 COMBIVENT RESPIMAT 20-100 MC G/ACT AERS Inhale one turn 4 times a day or as needed IPRATROPIUM-ALBUTEROL [id number] Liana Loja, DO take 3 mL by inhalat ion four times daily ipratropium-albuterol 20-100 mcg/actuation mist Inhale 3 mL as instructed four times daily. Active End: 03-23-2024 ipratropium-albuterol (Combi vent Respimat) 20-100 MCG/ACT inhaler Inhale 3 mL in the morning and 3 mL at noon and 3 mL in the evening and 3 mL before bedtime. 0 03/23/2024 Discontinued (Therapy completed) allopurinol 100 mg oral tablet (20 sources) Xanthine Oxidase Inhibitor Start: 07-05-2019 End: 12-16-2020 take 1 tablet by mouth once daily allopurinol (ZYLOPRIM) 100 MG tablet Take 100 mg by mouth nightly 0 07/05/2019 12/16/2020 Discontinued (LIST CLEANUP) Ampicillin (OMNIPEN) 2 g in sodium chloride 0.9% (MB PLUS) 100 mL (total volume) IVPB (2 sources) Start: 05-16-2023 End: 05-17-2023 Ampicillin (OMNIPEN) 2 g in sodium chloride 0.9% (MB PLUS) 100 mL (total volume) IVPB ascorbic acid 60 mg / beta carotene 5000 unt / copper sulfate 40 mg / dl-alpha tocopheryl acetate 30 unt / sodium selenite 0.04 mg / zinc oxide 40 mg oral tablet (20 sources) Vitamin C Start: 04-09-2019 End: 03-23-2024 Multiple Vitamins-Iron tablet Take 1 tablet by mouth. 0 04/09/2019 03/23/2024 Discontinued (Duplicate order) bacitracin zinc 0.5 unt/mg topical ointment (1 source) Start: 03-29-2022 End: 03-29-2022 bacitracin ointment bebtelovimab injection 175 mg (2 sources) Start: 02-22-2022 End: 02-22-2022 bebtelovimab injection 175 mg budesonide 0.25 mg/ml inhalant solution (1 source) Corticosteroid Start: 12-16-2016 BUDESONIDE 0.5 MG/2ML SUSP One ampule inhaled Twice daily BUDESONIDE [id number] Sanam Love Oswald [employer] 120 actuat budesonide 0.16 mg/actuat / formoterol fumarate 0.0045 mg/actuat metered dose inhaler (4 sources) Corticosteroid, beta2-Adrenergic Agonist Start: 12-31-2014 End: 10-30-2015 SYMBICORT 160-4.5 MCG/ACT AERO Two puffs twice a day BUDESONIDE-FORMOTE ROL FUMARATE [id number] Liana Loja, 30 ml bupivacaine hydrochloride 2.5 mg/ml injection (2 sources) Amide Local Anesthetic Start: 03-20-2024 End: 03-20-2024 bupivacaine (PF) 0.25 % (2.5 mg/mL) 4 mL injection (SENSORCAINE MPF) calcium chloride 0.0014 meq/ml / potassium chloride 0.004 meq/ml / sodium chloride 0.103 meq/ml / sodium lactate 0.028 meq/ml injectable solution (4 sources) Start: 05-16-2023 End: 05-17-2023 Lactated ringers IV solution Start: 12-16-2020 lactated ringe rs infusion Start: 08-14-2019 lactated ringe rs infusion carvedilol 25 mg oral tablet (20 sources) alpha-Adrenergic Kiley, beta-Adrenergic Kiley Start: 05-18-2023 End: 05-20-2023 carveDILOL (COREG) tablet 12.5 mg Start: 08-10-2021 End: 03-23-2024 take 1 tablet by mouth in the morning carvedilol (Coreg) 25 MG tablet Take 25 mg by mouth in the morning and 25 mg in the evening. 0 07/07/2022 03/23/2024 Discontinued (Therapy completed) Start: 05-11-2019 carvedilol (CO REG) 6.25 MG tablet Take 6.25 mg by mouth 0 05/11/2019 Active chlorhexidine gluconate 1.2 mg/ml mouthwash (4 sources) Start: 05-16-2023 End: 05-18-2023 chlorhexidine (PERIDEX) 0.12 % oral solution 15 mL Start: 05-15-2023 End: 05-16-2023 chlorhexidine (Peridex) 0.12 % solution 15 mL cilgavimab injection 300 mg (1 source) Start: 05-11-2022 End: 05-11-2022 cilgavimab injection 300 mg 1 ml dexamethasone phosphate 10 mg/ml injection (2 sources) Corticosteroid Start: 05-16-2023 End: 05-17-2023 take 10 mg intravenously every six hours dexAMETHasone PF (DECADRON) injection 10 mg dexmedeTOMIDine in sodium chloride 0.9% (PRECEDEX) 400 mcg/100 mL (2 sources) Start: 05-17-2023 End: 05-18-2023 dexmedeTOMIDine in sodium chloride 0.9% (PRECEDEX) 400 mcg/100 mL 0.4 ml enoxaparin sodium 100 mg/ml prefilled syringe (4 sources) Low Molecular Weight Heparin Start: 05-16-2023 End: 05-21-2023 Enoxaparin Sodium (LOVENOX) injection 40 mg 20 ml etomidate 2 mg/ml injection (2 sources) General Anesthetic Start: 05-15-2023 End: 05-15-2023 etomidate (Amidate) injection 20 mg Start: 05-15-2023 End: 05-15-2023 etomidate (Amidate) injectio n 20 mg famotidine 20 mg oral tablet (2 sources) Histamine-2 Receptor Antagonist Start: 12-16-2020 End: 12-16-2020 famotidine (PEPCID) tablet 20 mg Start: 08-14-2019 End: 08-14-2019 famotidine (PEPCID) tablet 2 0 mg 2 ml fentaNYL 0.05 mg/ml injection (7 sources) Opioid Agonist Start: 05-15-2023 End: 05-15-2023 fentaNYL (Sublimaze) injection 50 mcg Start: 05-15-2023 End: 05-15-2023 fentaNYL (Sublimaze) injecti on 50 mcg Start: 12-16-2020 End: 12-16-2020 fentaNYL (SUBLIMAZE) 100 MCG /2ML injection Start: 12-16-2020 fentaNYL (SUBL IMAZE) injection 50 mcg Start: 12-16-2020 fentaNYL (SUBL IMAZE) injection 25 mcg Start: 08-14-2019 fentaNYL (SUBL IMAZE) injection 50 mcg Start: 08-14-2019 fentaNYL (SUBL IMAZE) injection 25 mcg fentaNYL (Sublimaze) 1000 mcg in sodium chloride 0.9 % 100 mL 10 mcg/mL infusion (2 sources) Start: 05-15-2023 End: 05-16-2023 fentaNYL (Sublimaze) 1000 mcg in sodium chloride 0.9 % 100 mL 10 mcg/mL infusion 14 actuat fluticasone propionate 0.5 mg/actuat / salmeterol 0.05 mg/actuat dry powder inhaler (3 sources) Corticosteroid , beta2-Adrenerg ic Agonist Start: 10-30-2015 End: 12-16-2016 ADVAIR DISKUS 500-50 MCG/DOSE AEPB 1 puff inhaled Twice daily FLUTICASONE-SALMET JACKLYN [id number] Taina Devries 14 actuat fluticasone furoate 0.1 mg/actuat / vilanterol 0.025 mg/actuat dry powder inhaler (2 sources) Corticosteroid , beta2-Adrenerg ic Agonist Start: 09-30-2015 End: 10-30-2015 take 1 puff(s) by inhalation once daily BREO ELLIPTA 100-25 MCG/INH AEPB One puff INH daily FLUTICASONE FUROATE-VILANTEROL [id number] Eunice Varner LPN gadobutrol (Gadavist) injection 10 mL (2 sources) Start: 08-05-2023 End: 08-05-2023 gadobutrol (Gadavist) injection 10 mL 12 hr guaiFENesin 600 mg extended release oral tablet (4 sources) Start: 09-30-2015 End: 03-16-2017 GUAIFENESIN ER 600 MG [id number] 1 tab twice daily GUAIFENESIN [id number] Sanam Akers CNP End: 05-18-2017 MUCINEX 600 MG [id number] as needed GUAIFENESIN [id number] Taina Hoover LPN Insulin lispro (HUMALOG) injection (2 sources) Start: 05-18-2023 End: 05-21-2023 Insulin lispro (HUMALOG) injection Start: 05-18-2023 Insulin lispro (HUMALOG) injection iohexol (OMNIPAQUE) 350 MG/ML injection 1-171 mL (2 sources) Start: 05-17-2023 End: 05-17-2023 iohexol (OMNIPAQUE) 350 MG/ML injection 1-171 mL iopamidol (Isovue-370) 76 % injection 100 mL (2 sources) Start: 05-15-2023 End: 05-15-2023 iopamidol (Isovue-370) 76 % injection 100 mL levETIRAcetam (Keppra) 1,000 mg in sodium chloride 0.9 % 100 mL IVPB (2 sources) Start: 05-16-2023 End: 05-16-2023 levETIRAcetam (Keppra) 1,000 mg in sodium chloride 0.9 % 100 mL IVPB levETIRAcetam (Keppra) 4,500 mg in sodium chloride 0.9 % 100 mL IVPB (2 sources) Start: 05-15-2023 End: 05-15-2023 levETIRAcetam (Keppra) 4,500 mg in sodium chloride 0.9 % 100 mL IVPB levoFLOXacin 750 mg oral tablet (4 sources) Quinolone Antimicrobial Start: 06-10-2017 End: 08-04-2017 take 1 tablet by mouth once daily LEVAQUIN 750 MG TABS 1 tab by mouth daily LEVOFLOXACIN [id number] Omegayariel Ruvalcaba Start: 02-24-2017 End: 05-18-2017 take 1 tablet by mouth once daily LEVAQUIN 500 MG TABS One tablet PO daily LEVOFLOXACIN [id number] Taina Hoover LPN lidocaine 0.04 mg/mg medicated patch (7 sources) Antiarrhythmic, Amide Local Anesthetic Start: 05-18-2023 End: 05-21-2023 lidocaine 4 % patch 1 patch Start: 05-16-2023 End: 05-16-2023 lidocaine PF (Xylocaine) 1 % injection Start: 03-29-2022 End: 03-29-2022 lidocaine 1 % injection 20 m L Start: 12-16-2020 End: 12-16-2020 lidocaine PF 1 % injection 1 mL Start: 08-14-2019 End: 08-14-2019 lidocaine PF 1 % injection 1 mL LORazepam 0.5 mg oral tablet (1 source) Benzodiazepine Start: 04-21-2016 ATIVAN 0.5 MG TABS q6hrs PRN LORAZEPAM [id number] Esther Seymour [employer] REPA[employer]ER 50 ml magnesium sulfate 80 mg/ml injection (2 sources) Start: 05-16-2023 End: 05-21-2023 Magnesium sulfate 4 g in sterile water 50 ml premix IVPB melatonin 3 mg oral tablet (2 sources) Start: 05-20-2023 End: 05-21-2023 Melatonin tablet 3 mg Meropenem (MERREM) 2 g in Sodium chloride 0.9%, with overfill 110 mL (total volume) IVPB (2 sources) Start: 05-16-2023 End: 05-18-2023 take 2 g intravenously every eight hours Meropenem (MERREM) 2 g in Sodium chloride 0.9%, with overfill 110 mL (total volume) IVPB meropenem (Merrem) 2,000 mg in sodium chloride 0.9 % 100 mL IVPB (4 sources) Start: 05-16-2023 End: 05-16-2023 take 2000 mg intravenously every eight hours meropenem (Merrem) 2,000 mg in sodium chloride 0.9 % 100 mL IVPB Start: 05-15-2023 End: 05-16-2023 take 2000 mg intravenously every eight hours meropenem (Merrem) 2,000 mg in sodium chloride 0.9 % 100 mL IVPB 2 ml midazolam 1 mg/ml injection (4 sources) Benzodiazepine Start: 05-15-2023 End: 05-15-2023 midazolam (Versed) injection 4 mg midazolam (Versed) 50 mg/50mL infusion (2 sources) Start: 05-15-2023 End: 05-16-2023 midazolam (Versed) 50 mg/50mL infusion Multi-Vitamins tablet 1 tablet (2 sources) Start: 05-17-2023 End: 05-21-2023 take 1 tablet by mouth once daily 1 tablet, Oral, DAILY, First dose on Tue05/17/23 at 0900, Until Discontinued Start: 05-17-2023 take 1 tablet by mireille th once daily 1 tablet, Oral, DAILY, First dose on Tue05/17/23 at 0900, Until Discontinued ondansetron ODT (Zofran-ODT) disintegrating tablet 4 mg (2 sources) Start: 05-15-2023 End: 05-16-2023 take 1 tablet by mouth every eight hours as needed for nausea and vomiting ondansetron ODT (Zofran-ODT) disintegrating tablet 4 mg perflutren lipid microspheres (DEFINITY) injection 2.2 mg (1 source) Start: 07-15-2021 End: 07-15-2021 perflutren lipid microspheres (DEFINITY) injection 2.2 mg piperacillin 4000 mg / tazobactam 500 mg injection (2 sources) Penicillin-cla ss Antibacterial, beta Lactamase Inhibitor Start: 05-15-2023 End: 05-15-2023 piperacillin-tazoba ctam (Zosyn) IVPB 4,500 mg polyethylene glycol 3350 60409 mg powder for oral solution (2 sources) Osmotic Laxative Start: 05-15-2023 End: 05-16-2023 take 17 g by mouth every twenty-four hours as needed for constipation 17 g, Oral, Daily PRN, constipation, Starting on Tue05/15/23 at 2212 1st line for treatment of constipation - give scheduled if no bowel movement in past 24 hours. Potassium chloride 20 mEq in sterile water 50 ml premix IVPB (2 sources) Start: 05-16-2023 End: 05-21-2023 Potassium chloride 20 mEq in sterile water 50 ml premix IVPB Start: 05-16-2023 Potassium chlo ride 20 mEq in sterile water 50 ml premix IVPB prednisoLONE acetate 10 mg/ml ophthalmic suspension (13 sources) Corticosteroid Start: 05-20-2023 End: 05-21-2023 take 1 drop(s) into the eye(s) twice daily 1 drop, Right Eye, 2 TIMES DAILY, First dose on Tue05/20/23 at 1200, Until Discontinued Shake well prior to use. Start: 05-03-2023 take 1 drop(s) into the eye(s) twice daily prednisoLONE acetate 1 % Suspension ophthalmic suspension Place 1 drop in right eye 2 times daily. 05/03/2023 Active 100 ml propofol 10 mg/ml injection (10 sources) General Anesthetic Start: 05-16-2023 End: 05-17-2023 Propofol (DIPRIVAN) 1000 MG/100ML premix infusion Start: 05-15-2023 End: 05-17-2023 Propofol (DIPRIVAN) 1000 MG/ 100ML premix infusion Start: 05-15-2023 End: 05-15-2023 Propofol (Diprivan) injectio n Start: 05-15-2023 End: 05-15-2023 Propofol (Diprivan) injectio n rocuronium bromide 10 mg/ml injectable solution (2 sources) Nondepolarizing Neuromuscular Kiley Start: 05-15-2023 End: 05-15-2023 rocuronium (ZeMuron) injection 100 mg Start: 05-15-2023 End: 05-15-2023 rocuronium (ZeMuron) injecti on 100 mg roflumilast 0.5 mg oral tablet (4 sources) Phosphodiesterase 4 Inhibitor Start: 05-12-2016 End: 12-16-2016 DALIRESP 500 MCG TABS 1 tab dialy ROFLUMILAST [id number] Sanam Akers [employer] Start: 09-30-2015 End: 07-29-2016 DALIRESP 500 MCG TABS 1 tab daily ROFLUMILAST [id number] Sanam Akers [employer] 20 ml sodium chloride 9 mg/m l injection (10 sources) Start: 05-17-2023 End: 05-17-2023 Sodium chloride (PF) 0.9 % injection 1-100 mL Start: 05-17-2023 End: 05-17-2023 Sodium chloride (PF) 0.9 % injection 1-100 mL Start: 05-16-2023 End: 05-21-2023 Sodium chloride 0.9% IV solu tion 250 mL Start: 05-16-2023 End: 05-16-2023 take 5-40 mL intraluminal route every eight hours sodium chloride 0.9% (NS) flush 5-40 mL Start: 05-16-2023 End: 05-16-2023 sodium chloride 0.9% (NS) fl ush 5-40 mL Start: 05-15-2023 End: 05-15-2023 sodium chloride 0.9 % bolus 1,000 mL sodium phosphate 30 mmol in Sodium chloride 0.9%, with overfill 285 mL (total volume) IVPB (2 sources) Start: 05-16-2023 End: 05-21-2023 sodium phosphate 30 mmol in Sodium chloride 0.9%, with overfill 285 mL (total volume) IVPB Start: 05-16-2023 sodium phospha te 30 mmol in Sodium chloride 0.9%, with overfill 285 mL (total volume) IVPB soybean lecithin 1200 mg oral capsule (20 sources) End: 03-23-2024 take 1 capsule by mouth in the morning Lecithin 1200 MG capsule Take 1,200 mg by mouth in the morning. 0 03/23/2024 Discontinued (Therapy completed) tamsulosin hydrochloride 0.4 mg oral capsule (14 sources) alpha-Adrenergic Kiley End: 05-03-2022 take 1 capsule by mouth once daily Tamsulosin HCl 0.4 MG capsule Take 0.4 mg by mouth daily. 0 05/03/2022 Discontinued tiotropium 0.018 mg inhalant powder (2 sources) Anticholinergic Start: 12-31-2014 End: 12-16-2016 SPIRIVA HANDIHALER 18 MCG CAPS Inhale one cap once a day TIOTROPIUM BROMIDE MONOHYDRATE [id number] Jerman Vitale tixagevimab injection 300 mg (1 source) Start: 05-11-2022 End: 05-11-2022 tixagevimab injection 300 mg 1 ml triamcinolone acetonide 40 mg/ml injection (7 sources) Corticosteroid Start: 03-20-2024 End: 03-20-2024 triamcinolone acetonide 80 mg injection (KeNALog 40) Start: 04-22-2015 End: 07-29-2016 TRIAMCINOLONE ACETONIDE 0.5 % CREA apply to affected area twice daily TRIAMCINOLONE ACETONIDE [id number] Liana Rober Loja, DO 30 actuat umeclidinium 0.0625 mg/actuat dry powder inhaler (2 sources) Anticholinergic Start: 09-30-2015 End: 12-29-2015 take 1 puff(s) by inhalation once daily INCRUSE ELLIPTA 62.5 MCG/INH AEPB 1 puff daily UMECLIDINIUM BROMIDE [id number] Sanam Akers CNP vancomycin (Vancocin) 2000 mg in 0.9% sodium chloride 500 mL IVPB (compounded premix) (2 sources) Start: 05-15-2023 End: 05-15-2023 vancomycin (Vancocin) 2000 mg in 0.9% sodium chloride 500 mL IVPB (compounded premix) Vital AF 1.2 Kaleb LIQD (2 sources) Start: 05-17-2023 End: 05-18-2023 Vital AF 1.2 Kaleb LIQD Problems Active Problems Problem Classification Problem Date Documented Date Episodic/Chronic Acute and unspecified renal failure (2 sources) Acute injury of kidney; Translations: [Acute kidney failure, unspecified] 05-15-2023 Episodic Anxiety disorders (1 source) Anxiety; Translations: [Anxiety disorder, unspecified] Onset: 12-29-2015 12-29-2015 Chronic Attention-deficit, conduct, and disruptive behavior disorders (2 sources) Altered behavior; Translations: [Other symptoms and signs involving appearance and behavior] 05-21-2023 Episodic Chronic obstructive pulmonary disease and bronchiectasis (20 sources) Acute exacerbation of chronic obstructive airways disease; Translations: [Chronic obstructive lung disease] Onset: 12-31-2014 Resolved: 02-05-2019 01-25-2016 Chronic Coronary atherosclerosis and other heart disease (20 sources) Coronary atherosclerosis; Translations: [Atherosclerotic heart disease of [place] coronary artery without angina pectoris] Onset: 07-14-2018 Chronic Diabetes mellitus with complications (8 sources) Hyperglycemia due to type 2 diabetes mellitus; Translations: [Type 2 diabetes mellitus with hyperglycemia] Onset: 11-07-2023 11-07-2023 Chronic Disorders of lipid metabolism (20 sources) Hyperlipidemia; Translations: [Hyperlipidemia, unspecified] Onset: 01-11-2019 01-11-2019 Chronic Epilepsy; convulsions (2 sources) Seizure; Translations: [Unspecified convulsions] 05-15-2023 Episodic Esophageal disorders (19 sources) Gastroesophageal reflux disease without esophagitis; Translations: [Gastro-esophageal reflux disease without esophagitis] Onset: 10-31-2021 10-31-2021 Chronic Fracture of upper limb (1 source) Closed fracture of neck of fifth metacarpal bone; Translations: [Displaced fracture of neck of fifth metacarpal bone, left hand, initial encounter for closed fracture] Episodic Headache, including migraine (1 source) Migraine; Translations: [Migraine, unspecified, not intractable, without status migrainosus] Onset: 12-31-2014 12-31-2014 Chronic Immunity disorders (20 sources) Immunodeficiency disorder; Translations: [Immunodeficiency, unspecified] Onset: 01-11-2019 Chronic Nonspecific chest pain (2 sources) Chest pain; Translations: [Chest pain, unspecified] 05-15-2023 Episodic Nutritional deficiencies (10 sources) Malnutrition (calorie); Translations: [Vitamin D deficiency] Onset: 04-22-2015 04-22-2015 Chronic Osteoarthritis (20 sources) Osteoarthritis of right hip joint; Translations: [Unilateral primary osteoarthritis, right hip] Onset: 12-06-2019 Resolved: 02-27-2021 02-27-2021 Chronic Osteoporosis (11 sources) Osteoporosis; Translations: [Age-related osteoporosis without current pathological fracture] Onset: 11-07-2023 Chronic Other aftercare (2 sources) Encounter for aftercare following lung transplant; Translations: [Encounter for aftercare following lung transplant] Onset: 10-26-2019 Chronic Other aftercare (3 sources) Drug therapy finding; 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] 03-23-2024 Episodic Other injuries and conditions due to external causes (1 source) Injury of head; Translations: [Unspecified injury of head, initial encounter] Episodic Other injuries and conditions due to external causes (3 sources) H/O: vertebral fracture; Translations: [Personal history of (healed) traumatic fracture] 03-23-2024 Episodic Other lower respiratory disease (20 sources) H/O: lung recipient; Translations: [Lung transplant status] Onset: 12-11-2018 Chronic Other lower respiratory disease (5 sources) Lung transplant status; Translations: [Lung transplant status] Onset: 10-26-2019 Chronic Other nervous system disorders (5 sources) Disorder of brain; Translations: [Encephalopathy, unspecified] Onset: 08-05-2023 08-05-2023 Chronic Other nervous system disorders (1 source) Other chronic pain; Translations: [Chronic right shoulder pain] Onset: 03-29-2024 Chronic Other nervous system disorders (1 source) Encephalopathy, unspecified; Translations: [Encephalopathy, unspecified] Onset: 08-05-2023 Chronic Other non-traumatic joint disorders (4 sources) Pain in right shoulder; Translations: [Pain in joint, shoulder region] Onset: 03-20-2024 03-20-2024 Episodic Other non-traumatic joint disorders (14 sources) Chronic pain of right upper limb; Translations: [Pain in right shoulder] Onset: 03-29-2024 03-29-2024 Episodic Other non-traumatic joint disorders (3 sources) Acute ankle pain; Translations: [Pain in right ankle and joints of right foot] 05-10-2024 Episodic Other non-traumatic joint disorders (3 sources) Hip pain; Translations: [Pain in left hip] 05-10-2024 Episodic Other non-traumatic joint disorders (2 sources) Pain in right ankle and joints of right foot; Translations: [Pain in right ankle and joints of right foot] Onset: 05-10-2024 Episodic Other non-traumatic joint disorders (2 sources) Pain in left hip; Translations: [Pain in left hip] Onset: 05-10-2024 Episodic Other nutritional; endocrine; and metabolic disorders (8 sources) Obese class I; Translations: [Obesity, unspecified] Onset: 11-07-2023 11-07-2023 Chronic Other screening for suspected conditions (not mental disorders or infectious disease) (20 sources) Finding of region of thorax; Translations: [Abnormal findings on diagnostic imaging of other specified body structures] Onset: 07-05-2018 07-05-2018 Chronic Residual codes; unclassified (6 sources) At risk of osteoporotic fracture; Translations: [Other specified personal risk factors, not elsewhere classified] 03-23-2024 Episodic Respiratory failure; insufficiency; arrest (11 sources) Dependence on supplemental oxygen; Translations: [Chronic hypoxemic respiratory failure] Onset: 12-31-2014 01-09-2015 Chronic Sprains and strains (1 source) Sprain of left wrist; Translations: [Unspecified sprain of left wrist, initial encounter] Episodic Superficial injury; contusion (1 source) Abrasion of left forearm; Translations: [Abrasion of left forearm, initial encounter] Episodic Unclassified (20 sources) Lung mass; Translations: [Blood chemistry abnormal] Onset: 12-31-2014 05-10-2015 Episodic Unclassified (2 sources) S/p Lung Transplant; Translations: [S/p Lung Transplant] Onset: 05-10-2024 Viral infection (2 sources) Herpes zoster; Translations: [Disease caused by 2019-nCoV] Onset: 04-22-2015 04-22-2015 Episodic Past or Other Problems Problem Classification Problem Date Documented Da te Episodic/Chronic Abdominal hernia (9 sources) Hiatal hernia; Translations: [Diaphragmatic hernia without obstruction or gangrene] Onset: 8 05-09-2018 Episodic Calculus of urinary tract (20 sources) Kidney stone; Translations: [Calculus of kidney] Onset: 6 01-25-2016 Episodic Cardiac dysrhythmias (19 sources) Atrial fibrillation; Translations: [Unspecified atrial fibrillation] Onset: 9 Resolved: 9 02-05-2019 Chronic Fluid and electrolyte disorders (12 sources) Disorder of electrolytes; Translations: [Other disorders of electrolyte and fluid balance, not elsewhere classified] Onset: 3 05-17-2023 Episodic Immunizations and screening for infectious disease (9 sources) Virus: serology - finding; Translations: [Other specified abnormal immunological findings in serum] Onset: 8 05-09-2018 Episodic Mood disorders (19 sources) Mood disorders Onset: 0 Resolved: 0 03-24-2020 Nutritional deficiencies (1 source) Cachexia; Translations: [Cachexia] Onset: 5 04-22-2015 Episodic Open wounds of head; neck; and trunk (20 sources) Laceration of left eyelid; Translations: [Laceration without foreign body of left eyelid and periocular area, initial encounter] Onset: 2 Episodic Other aftercare (20 sources) Taking high risk medication; Translations: [Other usp (current) drug therapy] Onset: 9 10-26-2019 Episodic Other aftercare (20 sources) Patient encounter status; Translations: [Encounter for therapeutic drug level monitoring] Onset: 9 01-11-2019 Episodic Other aftercare (4 sources) Long-term current use of systemic steroid; Translations: [alf (current) use of systemic steroids] Onset: 4 Episodic Other aftercare (1 source) alf (current) use of systemic steroids; Translations: [alf (current) use of systemic steroids] Onset: 4 Episodic Other aftercare (2 sources) 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; Translations: [Other usp (current) drug therapy] Onset: 0 Episodic Other aftercare (2 sources) Encounter for therapeutic drug level monitoring; Translations: [Encounter for therapeutic drug level monitoring] Onset: 9 Episodic Other connective tissue disease (5 sources) Pain in right arm; Translations: [Pain in right arm] Onset: 3 08-05-2023 Episodic Other connective tissue disease (1 source) Pain in right arm; Translations: [Pain in right arm] Onset: 3 Episodic Other lower respiratory disease (1 source) Hypoxia; Translations: [Asphyxia] Onset: 5 01-09-2015 Episodic Other lower respiratory disease (19 sources) Abnormal findings on diagnostic imaging of lung; Translations: [Other nonspecific abnormal finding of lung field] Onset: 9 12-26-2018 Episodic Other nervous system disorders (1 source) Other disturbances of skin sensation; Translations: [Other disturbances of skin sensation] Onset: 6 12-29-2015 Episodic Other nervous system disorders (1 source) Postoperative pain ; Translations: [Post-op pain] Episodic Other nervous system disorders (6 sources) Other symptoms and signs involving cognitive functions and awareness; Translations: [Other signs and symptoms involving cognition] Onset: 3 08-05-2023 Episodic Other non-traumatic joint disorders (1 source) Pain in left shoulder; Translations: [Pain in left shoulder] Onset: 6 11-12-2015 Episodic Other skin disorders (19 sources) Granulation of tissue; Translations: [Granulomatous disorder of the skin and subcutaneous tissue, unspecified] Onset: 9 Resolved: 1 02-27-2021 Episodic Other upper respiratory disease (19 sources) Stenosis of trachea; Translations: [Other specified diseases of upper respiratory tract] Onset: 0 Resolved: 1 02-27-2021 Episodic Pathological fracture (19 sources) Osteoporosis; Translations: [Age-related osteoporosis with current pathological fracture, unspecified site, initial encounter for fracture] Onset: 9 04-05-2019 Episodic Phlebitis; thrombophlebitis and thromboembolism (1 source) Thrombophlebitis of superficial veins of lower extremity; Translations: [Phlebitis and thrombophlebitis of superficial vessels of unspecified lower extremity] Onset: 5 04-22-2015 Episodic Residual codes; unclassified (19 sources) Awaiting transplantation of lung; Translations: [Awaiting organ transplant status] Onset: 9 Resolved: 9 01-12-2019 Chronic Residual codes; unclassified (19 sources) H/O Spinal surgery; Translations: [Other specified postprocedural states] Onset: 9 04-05-2019 Episodic Residual codes; unclassified (17 sources) Other specified personal risk factors, not elsewhere classified; Translations: [Other specified personal history presenting hazards to health] Onset: 2 Episodic Residual codes; unclassified (13 sources) Altered mental status; Translations: [Altered mental status, unspecified] Onset: 3 05-16-2023 Episodic Residual codes; unclassified (9 sources) Blood group O Rh(D) positive; Translations: [Type O blood, Rh positive] Onset: 8 05-09-2018 Episodic Respiratory failure; insufficiency; arrest (adult) (20 sources) Acute hypoxemic and hypercapnic respiratory failure; Translations: [Acute respiratory failure with hypoxia] Onset: 3 05-16-2023 Episodic Spondylosis; intervertebral disc disorders; other back problems (7 sources) Acute low back pain; Translations: [Acute low back pain, unspecified back pain laterality, unspecified whether sciatica present] Onset: 3 Episodic Unclassified (1 source) Hypersomnia; Translations: [Hypersomnia, unspecified] Onset: 6 12-29-2015 Episodic Unclassified (10 sources) Onset: 2 Resolved: 4 10-29-2021 Results Test Name Value Interpretation Reference Range Facility No Panel Informationon 06-28 [facility] CNOVon 06-05-2024 [facility] Office Visit (AGHWW1 ) NICK HERNÁNDEZ ([id number]) 1960 M Date Time Provider Department 06/05/24 9:45 AM KERMIT IVY [id number] During your visit today, we recorded the following information about you: Respiration Weight Height 16/minute 100.2 kg 1.778 m Kermit Ivy MD 06/05/2024 9:48 AM Signed PAIN EVALUATION 05/29/2024 1429 Pain Level: 6 Description: Aching;Burning Encounter Diagnosis ICD-10-CM 1. Right shoulder pain, unspecified chronicity M25.511 Nick Hernández follow-up on right shoulder pain. He feels the injection at the last visit helped him a great deal. He is back to most usual functions. He is doing daily stretching now that he has completed his physical therapy. He is pleased with his results from conservative management of his pain. Examined his right shoulder in the office today. No visible muscle atrophy. He has full active and passive range of motion in elevation and rotation without any discomfort. Full strength with rotator cuff testing in elevation and rotation. IMAGING: Reviewed the MRI report from his October imaging showing no tearing but concern for muscle atrophy. PLAN: Discussed his progress with conservative management. He did very well with injection and physical therapy. Continue to use arm for all activities as tolerated and return on as-needed basis. Kermit Ivy MD Shoulder AND Elbow Surgeon Department of Orthopaedic Surgery [facility] Referring Provider: SELF [200] Allergies As of Date: 06/05/2024 Noted Allergy Reaction FLUTICASONE FUROATE 10/27/2017 14 - Other: See Comments VILANTEROL 10/27/2017 14 - Other: See Comments CODEINE SULFATE 4 - Hives BREO ELLIPTA (FLUTICASONE FUROATE*04/28/2018 14 - Other: See Comments CODEINE 04/28/2018 4 - Hives ADHESIVE TAPE (ROSINS) 10/27/2017 4 - Hives Date Reviewed: 06/05/2024 Reviewed by: Maricruz Chase LPN - Fully Assessed Reason for Visit: Established Patient [175] Primary Visit Diagnosis:Right shoulder pain, unspecified chronicity [M25.511] Prescriptions as of 06/05/2024 - aspirin, enteric coated (ASPIRIN, ENTERIC COATED) 81 mg EC tablet Take 81 mg by mouth once daily. - calcium citrate-vitamin D3 (CITRACAL+D) 315 mg-5 mcg (200 unit) tab Take 1 tablet by mouth two times a day with meals. - citalopram hydrobromide (CELEXA) 10 mg tablet Take 10 mg by mouth once daily. - ergocalciferol 50,000 unit capsule (VITAMIN D2, DRISDOL) Take 50,000 Units by mouth one time a week. - gabapentin (NEURONTIN) 400 mg capsule Take 400 mg by mouth three times a day. - magnesium oxide 400 mg magnesium tab Take 400 mg by mouth two times a day. Take 2 tablets - pantoprazole DR (PROTONIX) 40 mg tablet Take 40 mg by mouth two times a day. - predniSONE (DELTASONE) 5 mg tablet Take 5 mg by mouth once daily. - rosuvastatin (CRESTOR) 10 mg tablet Take 10 mg by mouth once daily. - SITagliptin phosphate (JANUVIA) 100 mg tablet Take 100 mg by mouth once daily. - sulfamethoxazole-trime thoprim (BACTRIM DS) 800-160 mg per tablet Take 1 tablet by mouth three times a week. - mycophenolate mofetil (CELLCEPT) 250 mg capsule Take 250 mg by mouth every 12 hours. 4 capsules - tacrolimus IR (PROGRAF) 0.5 mg capsule Take 0.5 mg by mouth two times a day. 2 capsules in am, 1 capsule evening - alendronate (FOSAMAX) 70 mg tablet Take 70 mg by mouth one time a week. In AM with cup of water on empty stomach. Nothing else by mouth and stay upright for 30 min. - amLODIPine (NORVASC) 5 mg tablet Take 5 mg by mouth once daily. - hydrOXYzine pamoate (VISTARIL) 25 mg capsule Take 25 mg by mouth three times a day as needed. - prednisoLONE acetate-bromfenac 1-0.075 % drps Use 1 Drop in eyes two times a day. - oxybutynin ER (DITROPAN XL) 10 mg 24 hr tablet Take 10 mg by mouth once daily. - acetaminophen 325 mg cap Take 2 capsules by mouth every 6 hours as needed for pain. - HYDROcodone-Acetaminop hen (NORCO) 10-325 mg per tablet Take 1 tablet by mouth every 4 hours as needed. - azithromycin (ZITHROMAX) 500 mg tablet Take 500 mg by mouth every Tuesday,Tuesday,. - ipratropium-albuterol 20-100 mcg/actuation mist Inhale 3 mL as instructed four times daily. - Lecithin 1,200 mg cap Take 1,200 mg by mouth once daily. - MULTIVITAMIN ORAL Take 1 tablet by mouth. Problem List As Of Date 06/05/2024 Noted Resolved Chronic hypoxemic respiratory failure (HCC) [J9*05/09/2018 Centrilobular emphysema (HCC) [J43.2] 05/09/2018 CMV Recipient NEG [R76.8] 05/09/2018 Type O blood, Rh positive [Z67.40] 05/09/2018 Hiatal hernia [K44.9] 05/09/2018 Hypovitaminosis D [E55.9] 05/09/2018 Chronic right shoulder pain [M25.511, G89.29] 03/29/2024 Encounter Status:Closed by KERMIT IVY on 06/05/24 [facility] No Panel Informationon 05-30 [facility] UP Online CNTHERAPYon 05-15-2024 CNTHERAPY OT/PT/Speech Visit (AKPTB) NICK HERNÁNDEZ ([id number]) 1960 M Date Time Provider Department 05/15/24 9:00 AM LENA TREJO Date Time Provider Department Center 05/15/2024 9:00 AM [id number], DANIEL*KANCHAN [facility] Reason for Visit: Physical Therapy [503] Primary Visit Diagnosis:Chronic right shoulder pain [M25.511, G89.29] Allergies As of Date: 05/15/2024 Noted Allergy Reaction FLUTICASONE FUROATE 10/27/2017 14 - Other: See Comments VILANTEROL 10/27/2017 14 - Other: See Comments CODEINE SULFATE 4 - Hives BREO ELLIPTA (FLUTICASONE FUROATE*04/28/2018 14 - Other: See Comments CODEINE 04/28/2018 4 - Hives ADHESIVE TAPE (ROSINS) 10/27/2017 4 - Hives Date Reviewed: 03/20/2024 Reviewed by: April Pierre PA-C - Fully Assessed Prescriptions as of 05/15/2024 - aspirin, enteric coated (ASPIRIN, ENTERIC COATED) 81 mg EC tablet Take 81 mg by mouth once daily. - calcium citrate-vitamin D3 (CITRACAL+D) 315 mg-5 mcg (200 unit) tab Take 1 tablet by mouth two times a day with meals. - citalopram hydrobromide (CELEXA) 10 mg tablet Take 10 mg by mouth once daily. - ergocalciferol 50,000 unit capsule (VITAMIN D2, DRISDOL) Take 50,000 Units by mouth one time a week. - gabapentin (NEURONTIN) 400 mg capsule Take 400 mg by mouth three times a day. - magnesium oxide 400 mg magnesium tab Take 400 mg by mouth two times a day. Take 2 tablets - pantoprazole DR (PROTONIX) 40 mg tablet Take 40 mg by mouth two times a day. - predniSONE (DELTASONE) 5 mg tablet Take 5 mg by mouth once daily. - rosuvastatin (CRESTOR) 10 mg tablet Take 10 mg by mouth once daily. - SITagliptin phosphate (JANUVIA) 100 mg tablet Take 100 mg by mouth once daily. - sulfamethoxazole-trime thoprim (BACTRIM DS) 800-160 mg per tablet Take 1 tablet by mouth three times a week. - mycophenolate mofetil (CELLCEPT) 250 mg capsule Take 250 mg by mouth every 12 hours. 4 capsules - tacrolimus IR (PROGRAF) 0.5 mg capsule Take 0.5 mg by mouth two times a day. 2 capsules in am, 1 capsule evening - alendronate (FOSAMAX) 70 mg tablet Take 70 mg by mouth one time a week. In AM with cup of water on empty stomach. Nothing else by mouth and stay upright for 30 min. - amLODIPine (NORVASC) 5 mg tablet Take 5 mg by mouth once daily. - hydrOXYzine pamoate (VISTARIL) 25 mg capsule Take 25 mg by mouth three times a day as needed. - prednisoLONE acetate-bromfenac 1-0.075 % drps Use 1 Drop in eyes two times a day. - oxybutynin ER (DITROPAN XL) 10 mg 24 hr tablet Take 10 mg by mouth once daily. - acetaminophen 325 mg cap Take 2 capsules by mouth every 6 hours as needed for pain. - HYDROcodone-Acetaminop hen (NORCO) 10-325 mg per tablet Take 1 tablet by mouth every 4 hours as needed. - azithromycin (ZITHROMAX) 500 mg tablet Take 500 mg by mouth every Tuesday,Tuesday,. - ipratropium-albuterol 20-100 mcg/actuation mist Inhale 3 mL as instructed four times daily. - Lecithin 1,200 mg cap Take 1,200 mg by mouth once daily. - MULTIVITAMIN ORAL Take 1 tablet by mouth. Normal [facility] - HLA antigenson 05-11-2024 HLA Ab (S) 0 % 0 [facility] No Panel Informationon 05-11 AB SPECIFICITY CLASS COMMENT Antibody Specificity testing performed by [facility]. cPRA calculation based on identification of HLA antibody specificities at MFI >2000 and/or presence of CREG antibodies. [facility] Comment on above: Some of the reagents used for testing in the Clinical Histocompatibility Laboratory have yet to be approved by the FDA. Our certification by CLIA to perform high complexity tests allows us to use these reagents in the context of a stringent QC program, and obviates the need for FDA approval.Testing performed by the [facility] Clinical Histocompatibility Laboratory. [facility] number: [id number]. CLIA number: [id number], Director: Ignacio Shook, PhD, F([facility]). ANTIBODY SPECIFICITY INTERPRETATION Detected [facility] CLASS I SPECIFICITIES Not detected [facility] CLASS II SPECIFICITIES Not detected [facility] ALLOSCREEN RECIPIENT (POST T X PRA)on 05-10-2024 AB SPECIFICITY CLASS COMMENT Antibody Specificity testing performed by [facility]. cPRA calculation based on identification of HLA antibody specificities at MFI >2000 and/or presence of CREG antibodies. Normal [facility] Comment on above: Result Comment: Some of the reagents used for testing in the Clinical Histocompatibility Laboratory have yet to be approved by the FDA. Our certification by CLIA to perform high complexity tests allows us to use these reagents in the context of a stringent QC program, and obviates the need for FDA approval.Testing performed by the [facility] Clinical Histocompatibility Laboratory. [facility] number: [id number]. CLIA number: [id number], Director: Ignacio Shook, PhD, F([facility]). Performed By: #### T SH, FT4 #### [facility] (DEFAULT) [address] [place] [id number] ANTIBODY SPECIFICITY INTERPRETATION Detected Normal [facility] Comment on above: Performed By: #### T SH, FT4 #### [facility] (DEFAULT) [address] [place] [id number] CLASS I SPECIFICITIES Not detected Normal [facility] Comment on above: Performed By: #### T SH, FT4 #### [facility] (DEFAULT) [address] [place] [id number] CLASS II SPECIFICITIES Not detected Normal [facility] Comment on above: Performed By: #### T SH, FT4 #### [facility] (DEFAULT) [address] [place] [id number] cPRA 0 % Normal 0 [facility] Comment on above: Performed By: #### T SH, FT4 #### [facility] (DEFAULT) [address] [address] XR ANKLE RIGHT 3+ VIEWSon XR ANKLE RIGHT 3+ VIEWS EXAM: XR ANKLE R IGHT 3+ VIEWS, 05/10/2024 15:04 PM COMPARISON: No prior studies available for comparison. CLINICAL INDICATIONS: right ankle pain RELEVANT CLINICAL HISTORY: Z94.2:S/P lung transplant Z48.24:Encounter for aftercare following lung transplant M25.571:Acute right ankle pain FINDINGS: 3 nonweight-bearing images obtained. Effusion: There is no joint effusion. Soft Tissue: There is no significant soft tissue swelling. Bone: The distal tibia and fibula appear intact. The syndesmosis is anatomically aligned. Talar dome is intact. Joint: Joint spaces are grossly intact. IMPRESSION: Unremarkable study. Normal [facility] XR Ankle - right 3 Viewson 0 05-10-2024 IMPRESSION: Unremarkable study. OLOGY EXAM: XR ANKLE RIGHT 3+ VIEWS, 05/10/2024 15:04 PM COMPARISON: No prior studies available for comparison. CLINICAL INDICATIONS: right ankle pain RELEVANT CLINICAL HISTORY: Z94.2:S/P lung transplant Z48.24:Encounter for aftercare following lung transplant M25.571:Acute right ankle pain FINDINGS: 3 nonweight-bearing images obtained. Effusion: There is no joint effusion. Soft Tissue: There is no significant soft tissue swelling. Bone: The distal tibia and fibula appear intact. The syndesmosis is anatomically aligned. Talar dome is intact. Joint: Joint spaces are grossly intact. RADIOLOGY Missael Monsivais MD - 05/10/2024 EXAM: XR ANKLE RIGHT 3+ VIEWS, 05/10/2024 15:04 PM COMPARISON: No prior studies available for comparison. CLINICAL INDICATIONS: right ankle pain RELEVANT CLINICAL HISTORY: Z94.2:S/P lung transplant Z48.24:Encounter for aftercare following lung transplant M25.571:Acute right ankle pain FINDINGS: 3 nonweight-bearing images obtained. Effusion: There is no joint effusion. Soft Tissue: There is no significant soft tissue swelling. Bone: The distal tibia and fibula appear intact. The syndesmosis is anatomically aligned. Talar dome is intact. Joint: Joint spaces are grossly intact. IMPRESSION IMPRESSION: Unremarkable study. [facility] Radiology Study observation (narrative) [facility] XR Ankle - right 3 ViewsOrde red By: Missael Monsivais on 05-10-2024 [facility] Work Phone: XR CHEST PA AND LATERAL 2 EWSon 05-10-2024 XR CHEST PA AND LATERAL 2 VIEWS EXAM: XR CHEST PA AND LATERAL 2 VIEWS, 05/10/2024 13:05 PM COMPARISON: May 17, 2023 CLINICAL INDICATIONS: s/p lung transplant RELEVANT CLINICAL HISTORY: Z94.2:S/P lung transplant D84.9:Immunosuppressed status FINDINGS: (Adequate technique) Implanted Devices: None Lungs: Clear, without mass, interstitial disease, or consolidation. Pleural Spaces: No pleural effusion. No pneumothorax. Mediastinum and Kam[place]: Normal Cardiac silhouette and great vessels: Normal heart size. Unremarkable aorta. Chest Wall: Postop changes related to sternotomy. IMPRESSION: No acute process. Status post sternotomy. Normal [facility] XR Chest PA and Lateralon IMPRESSION: No acute process. Status post sternotomy. OLOGY EXAM: XR CHEST PA AN D LATERAL 2 VIEWS, 05/10/2024 13:05 PM COMPARISON: May 17, 2023 CLINICAL INDICATIONS: s/p lung transplant RELEVANT CLINICAL HISTORY: Z94.2:S/P lung transplant D84.9:Immunosuppressed status FINDINGS: (Adequate technique) Implanted Devices: None Lungs: Clear, without mass, interstitial disease, or consolidation. Pleural Spaces: No pleural effusion. No pneumothorax. Mediastinum and Kam[place]: Normal Cardiac silhouette and great vessels: Normal heart size. Unremarkable aorta. Chest Wall: Postop changes related to sternotomy. RADIOLOGY Nain Hou MD - 05/10/2024 EXAM: XR CHEST PA AND LATERAL 2 VIEWS, 05/10/2024 13:05 PM COMPARISON: May 17, 2023 CLINICAL INDICATIONS: s/p lung transplant RELEVANT CLINICAL HISTORY: Z94.2:S/P lung transplant D84.9:Immunosuppressed status FINDINGS: (Adequate technique) Implanted Devices: None Lungs: Clear, without mass, interstitial disease, or consolidation. Pleural Spaces: No pleural effusion. No pneumothorax. Mediastinum and Kamilla: Normal Cardiac silhouette and great vessels: Normal heart size. Unremarkable aorta. Chest Wall: Postop changes related to sternotomy. IMPRESSION IMPRESSION: No acute process. Status post sternotomy. [facility] Radiology Study observation (narrative) [facility] XR Chest PA and LateralOrder ed By: Nain Hou on 05-10-2024 [facility] Work Phone: XR HIP LEFT 2-3 VIEWSon 04-17 XR HIP LEFT 2-3 VIEWS EXAM: XR HIP LEFT 2-3 VIEWS, 05/10/2024 15:04 PM COMPARISON: No prior studies available for comparison. CLINICAL INDICATIONS: left hip pain RELEVANT CLINICAL HISTORY: Z94.2:S/P lung transplant Z48.24:Encounter for aftercare following lung transplant M25.552:Pain of left hip FINDINGS: 4 images obtained. Soft Tissue: There is no obvious soft tissue swelling. There is no radiographically evident heterotopic ossification. Bone: No acute osseous abnormality is identified. Partial visualization L3 and L4 compression fractures status post vertebroplasty. Hip: Left hip anatomically aligned. Mild narrowing of the joint space, most notably superiorly, with small central and marginal osteophytes. A right total hip arthroplasty is in place which appears grossly intact. IMPRESSION: Mild osteoarthritis of the left hip. No acute osseous abnormality. Normal [facility] XR Hip - left 2 Viewson 04-17 IMPRESSION: Mild osteoarthritis of the left hip. No acute osseous abnormality. OLOGY EXAM: XR HIP LEFT 2- 3 VIEWS, 05/10/2024 15:04 PM COMPARISON: No prior studies available for comparison. CLINICAL INDICATIONS: left hip pain RELEVANT CLINICAL HISTORY: Z94.2:S/P lung transplant Z48.24:Encounter for aftercare following lung transplant M25.552:Pain of left hip FINDINGS: 4 images obtained. Soft Tissue: There is no obvious soft tissue swelling. There is no radiographically evident heterotopic ossification. Bone: No acute osseous abnormality is identified. Partial visualization L3 and L4 compression fractures status post vertebroplasty. Hip: Left hip anatomically aligned. Mild narrowing of the joint space, most notably superiorly, with small central and marginal osteophytes. A right total hip arthroplasty is in place which appears grossly intact. RADIOLOGY Missael Monsivais MD - 05/10/2024 EXAM: XR HIP LEFT 2-3 VIEWS, 05/10/2024 15:04 PM COMPARISON: No prior studies available for comparison. CLINICAL INDICATIONS: left hip pain RELEVANT CLINICAL HISTORY: Z94.2:S/P lung transplant Z48.24:Encounter for aftercare following lung transplant M25.552:Pain of left hip FINDINGS: 4 images obtained. Soft Tissue: There is no obvious soft tissue swelling. There is no radiographically evident heterotopic ossification. Bone: No acute osseous abnormality is identified. Partial visualization L3 and L4 compression fractures status post vertebroplasty. Hip: Left hip anatomically aligned. Mild narrowing of the joint space, most notably superiorly, with small central and marginal osteophytes. A right total hip arthroplasty is in place which appears grossly intact. IMPRESSION IMPRESSION: Mild osteoarthritis of the left hip. No acute osseous abnormality. [facility] Radiology Study observation (narrative) [facility] XR Hip - left 2 ViewsOrdered By: Missael Monsivais on 05-10-2024 [facility] Work Phone: CNTHERAPYon 05-07-2024 CNTHERAPY OT/PT/Speech Visit (AKPTB) NICK HERNÁNDEZ ([id number]) 1960 M Date Time Provider Department 05/07/24 8:45 AM AR GARCIA Date Time Provider Department Center 05/07/2024 8:45 AM [id number] GARCIA [facility] Reason for Visit: Physical Therapy [503] Primary Visit Diagnosis:Chronic right shoulder pain [M25.511, G89.29] Allergies As of Date: 05/07/2024 Noted Allergy Reaction FLUTICASONE FUROATE 10/27/2017 14 - Other: See Comments VILANTEROL 10/27/2017 14 - Other: See Comments CODEINE SULFATE 4 - Hives BREO ELLIPTA (FLUTICASONE FUROATE*04/28/2018 14 - Other: See Comments CODEINE 04/28/2018 4 - Hives ADHESIVE TAPE (ROSINS) 10/27/2017 4 - Hives Date Reviewed: 03/20/2024 Reviewed by: April Pierre PA-C - Fully Assessed Prescriptions as of 05/07/2024 - aspirin, enteric coated (ASPIRIN, ENTERIC COATED) 81 mg EC tablet Take 81 mg by mouth once daily. - calcium citrate-vitamin D3 (CITRACAL+D) 315 mg-5 mcg (200 unit) tab Take 1 tablet by mouth two times a day with meals. - citalopram hydrobromide (CELEXA) 10 mg tablet Take 10 mg by mouth once daily. - ergocalciferol 50,000 unit capsule (VITAMIN D2, DRISDOL) Take 50,000 Units by mouth one time a week. - gabapentin (NEURONTIN) 400 mg capsule Take 400 mg by mouth three times a day. - magnesium oxide 400 mg magnesium tab Take 400 mg by mouth two times a day. Take 2 tablets - pantoprazole DR (PROTONIX) 40 mg tablet Take 40 mg by mouth two times a day. - predniSONE (DELTASONE) 5 mg tablet Take 5 mg by mouth once daily. - rosuvastatin (CRESTOR) 10 mg tablet Take 10 mg by mouth once daily. - SITagliptin phosphate (JANUVIA) 100 mg tablet Take 100 mg by mouth once daily. - sulfamethoxazole-trime thoprim (BACTRIM DS) 800-160 mg per tablet Take 1 tablet by mouth three times a week. - mycophenolate mofetil (CELLCEPT) 250 mg capsule Take 250 mg by mouth every 12 hours. 4 capsules - tacrolimus IR (PROGRAF) 0.5 mg capsule Take 0.5 mg by mouth two times a day. 2 capsules in am, 1 capsule evening - alendronate (FOSAMAX) 70 mg tablet Take 70 mg by mouth one time a week. In AM with cup of water on empty stomach. Nothing else by mouth and stay upright for 30 min. - amLODIPine (NORVASC) 5 mg tablet Take 5 mg by mouth once daily. - hydrOXYzine pamoate (VISTARIL) 25 mg capsule Take 25 mg by mouth three times a day as needed. - prednisoLONE acetate-bromfenac 1-0.075 % drps Use 1 Drop in eyes two times a day. - oxybutynin ER (DITROPAN XL) 10 mg 24 hr tablet Take 10 mg by mouth once daily. - acetaminophen 325 mg cap Take 2 capsules by mouth every 6 hours as needed for pain. - HYDROcodone-Acetaminop hen (NORCO) 10-325 mg per tablet Take 1 tablet by mouth every 4 hours as needed. - azithromycin (ZITHROMAX) 500 mg tablet Take 500 mg by mouth every Tuesday,Tuesday,. - ipratropium-albuterol 20-100 mcg/actuation mist Inhale 3 mL as instructed four times daily. - Lecithin 1,200 mg cap Take 1,200 mg by mouth once daily. - MULTIVITAMIN ORAL Take 1 tablet by mouth. Normal [facility] CNTHERAPYon 05-02-2024 CNTHERAPY OT/PT/Speech Visit (AKPTB) NICK HERNÁNDEZ ([id number]) 1960 M Date Time Provider Department 05/02/24 5:30 PM MAYA LENA CHLOE HEMPHILL Date Time Provider Department Center 05/02/2024 5:30 PM [id number]*AKPTB [facility] Reason for Visit: Physical Therapy [503] Primary Visit Diagnosis:Chronic right shoulder pain [M25.511, G89.29] Allergies As of Date: 05/02/2024 Noted Allergy Reaction FLUTICASONE FUROATE 10/27/2017 14 - Other: See Comments VILANTEROL 10/27/2017 14 - Other: See Comments CODEINE SULFATE 4 - Hives BREO ELLIPTA (FLUTICASONE FUROATE*04/28/2018 14 - Other: See Comments CODEINE 04/28/2018 4 - Hives ADHESIVE TAPE (ROSINS) 10/27/2017 4 - Hives Date Reviewed: 03/20/2024 Reviewed by: April Pierre PA-C - Fully Assessed Prescriptions as of 05/02/2024 - aspirin, enteric coated (ASPIRIN, ENTERIC COATED) 81 mg EC tablet Take 81 mg by mouth once daily. - calcium citrate-vitamin D3 (CITRACAL+D) 315 mg-5 mcg (200 unit) tab Take 1 tablet by mouth two times a day with meals. - citalopram hydrobromide (CELEXA) 10 mg tablet Take 10 mg by mouth once daily. - ergocalciferol 50,000 unit capsule (VITAMIN D2, DRISDOL) Take 50,000 Units by mouth one time a week. - gabapentin (NEURONTIN) 400 mg capsule Take 400 mg by mouth three times a day. - magnesium oxide 400 mg magnesium tab Take 400 mg by mouth two times a day. Take 2 tablets - pantoprazole DR (PROTONIX) 40 mg tablet Take 40 mg by mouth two times a day. - predniSONE (DELTASONE) 5 mg tablet Take 5 mg by mouth once daily. - rosuvastatin (CRESTOR) 10 mg tablet Take 10 mg by mouth once daily. - SITagliptin phosphate (JANUVIA) 100 mg tablet Take 100 mg by mouth once daily. - sulfamethoxazole-trime thoprim (BACTRIM DS) 800-160 mg per tablet Take 1 tablet by mouth three times a week. - mycophenolate mofetil (CELLCEPT) 250 mg capsule Take 250 mg by mouth every 12 hours. 4 capsules - tacrolimus IR (PROGRAF) 0.5 mg capsule Take 0.5 mg by mouth two times a day. 2 capsules in am, 1 capsule evening - alendronate (FOSAMAX) 70 mg tablet Take 70 mg by mouth one time a week. In AM with cup of water on empty stomach. Nothing else by mouth and stay upright for 30 min. - amLODIPine (NORVASC) 5 mg tablet Take 5 mg by mouth once daily. - hydrOXYzine pamoate (VISTARIL) 25 mg capsule Take 25 mg by mouth three times a day as needed. - prednisoLONE acetate-bromfenac 1-0.075 % drps Use 1 Drop in eyes two times a day. - oxybutynin ER (DITROPAN XL) 10 mg 24 hr tablet Take 10 mg by mouth once daily. - acetaminophen 325 mg cap Take 2 capsules by mouth every 6 hours as needed for pain. - HYDROcodone-Acetaminop hen (NORCO) 10-325 mg per tablet Take 1 tablet by mouth every 4 hours as needed. - azithromycin (ZITHROMAX) 500 mg tablet Take 500 mg by mouth every Tuesday,Tuesday, y. - ipratropium-albuterol 20-100 mcg/actuation mist Inhale 3 mL as instructed four times daily. - Lecithin 1,200 mg cap Take 1,200 mg by mouth once daily. - MULTIVITAMIN ORAL Take 1 tablet by mouth. Normal [facility] CNTHERAPYon 04-24-2024 CNTHERAPY OT/PT/Speech Visit (AKPTB) NICK HERNÁNDEZ ([id number]) 1960 M Date Time Provider Department 04/24/24 9:00 AM LENA TREJOPTB Date Time Provider Department Center 04/24/2024 9:00 AM [id number] LENA*AKPTB [facility] Reason for Visit: Physical Therapy [503] Primary Visit Diagnosis:Chronic right shoulder pain [M25.511, G89.29] Allergies As of Date: 04/24/2024 Noted Allergy Reaction FLUTICASONE FUROATE 10/27/2017 14 - Other: See Comments VILANTEROL 10/27/2017 14 - Other: See Comments CODEINE SULFATE 4 - Hives BREO ELLIPTA (FLUTICASONE FUROATE*04/28/2018 14 - Other: See Comments CODEINE 04/28/2018 4 - Hives ADHESIVE TAPE (ROSINS) 10/27/2017 4 - Hives Date Reviewed: 03/20/2024 Reviewed by: April Pierre PA-C - Fully Assessed Prescriptions as of 04/24/2024 - aspirin, enteric coated (ASPIRIN, ENTERIC COATED) 81 mg EC tablet Take 81 mg by mouth once daily. - calcium citrate-vitamin D3 (CITRACAL+D) 315 mg-5 mcg (200 unit) tab Take 1 tablet by mouth two times a day with meals. - citalopram hydrobromide (CELEXA) 10 mg tablet Take 10 mg by mouth once daily. - ergocalciferol 50,000 unit capsule (VITAMIN D2, DRISDOL) Take 50,000 Units by mouth one time a week. - gabapentin (NEURONTIN) 400 mg capsule Take 400 mg by mouth three times a day. - magnesium oxide 400 mg magnesium tab Take 400 mg by mouth two times a day. Take 2 tablets - pantoprazole DR (PROTONIX) 40 mg tablet Take 40 mg by mouth two times a day. - predniSONE (DELTASONE) 5 mg tablet Take 5 mg by mouth once daily. - rosuvastatin (CRESTOR) 10 mg tablet Take 10 mg by mouth once daily. - SITagliptin phosphate (JANUVIA) 100 mg tablet Take 100 mg by mouth once daily. - sulfamethoxazole-trime thoprim (BACTRIM DS) 800-160 mg per tablet Take 1 tablet by mouth three times a week. - mycophenolate mofetil (CELLCEPT) 250 mg capsule Take 250 mg by mouth every 12 hours. 4 capsules - tacrolimus IR (PROGRAF) 0.5 mg capsule Take 0.5 mg by mouth two times a day. 2 capsules in am, 1 capsule evening - alendronate (FOSAMAX) 70 mg tablet Take 70 mg by mouth one time a week. In AM with cup of water on empty stomach. Nothing else by mouth and stay upright for 30 min. - amLODIPine (NORVASC) 5 mg tablet Take 5 mg by mouth once daily. - hydrOXYzine pamoate (VISTARIL) 25 mg capsule Take 25 mg by mouth three times a day as needed. - prednisoLONE acetate-bromfenac 1-0.075 % drps Use 1 Drop in eyes two times a day. - oxybutynin ER (DITROPAN XL) 10 mg 24 hr tablet Take 10 mg by mouth once daily. - acetaminophen 325 mg cap Take 2 capsules by mouth every 6 hours as needed for pain. - HYDROcodone-Acetaminop hen (NORCO) 10-325 mg per tablet Take 1 tablet by mouth every 4 hours as needed. - azithromycin (ZITHROMAX) 500 mg tablet Take 500 mg by mouth every Tuesday,Tuesday, y. - ipratropium-albuterol 20-100 mcg/actuation mist Inhale 3 mL as instructed four times daily. - Lecithin 1,200 mg cap Take 1,200 mg by mouth once daily. - MULTIVITAMIN ORAL Take 1 tablet by mouth. [facility] 04-23-2024 JEANN Telephone (AGPOB1) NICK HERNÁNDEZ ([id number]) 1960 M Date Time Provider Department 04/23/24 KERMIT IVY AGPOB1 During your visit today, we recorded the following information about you: Benita Bustos 04/23/2024 4:35 PM Signed LVM advising PT that we needed to reschedule his 05/01 appt. Advised for PT to contact [phone] to reschedule. Allergies As of Date: 04/23/2024 Noted Allergy Reaction FLUTICASONE FUROATE 10/27/2017 14 - Other: See Comments VILANTEROL 10/27/2017 14 - Other: See Comments CODEINE SULFATE 4 - Hives BREO ELLIPTA (FLUTICASONE FUROATE*04/28/2018 14 - Other: See Comments CODEINE 04/28/2018 4 - Hives ADHESIVE TAPE (ROSINS) 10/27/2017 4 - Hives Date Reviewed: 03/20/2024 Reviewed by: April Pierre PA-C - Fully Assessed Reason for Visit: Appointment [186] Prescriptions as of 04/23/2024 - aspirin, enteric coated (ASPIRIN, ENTERIC COATED) 81 mg EC tablet Take 81 mg by mouth once daily. - calcium citrate-vitamin D3 (CITRACAL+D) 315 mg-5 mcg (200 unit) tab Take 1 tablet by mouth two times a day with meals. - citalopram hydrobromide (CELEXA) 10 mg tablet Take 10 mg by mouth once daily. - ergocalciferol 50,000 unit capsule (VITAMIN D2, DRISDOL) Take 50,000 Units by mouth one time a week. - gabapentin (NEURONTIN) 400 mg capsule Take 400 mg by mouth three times a day. - magnesium oxide 400 mg magnesium tab Take 400 mg by mouth two times a day. Take 2 tablets - pantoprazole DR (PROTONIX) 40 mg tablet Take 40 mg by mouth two times a day. - predniSONE (DELTASONE) 5 mg tablet Take 5 mg by mouth once daily. - rosuvastatin (CRESTOR) 10 mg tablet Take 10 mg by mouth once daily. - SITagliptin phosphate (JANUVIA) 100 mg tablet Take 100 mg by mouth once daily. - sulfamethoxazole-trime thoprim (BACTRIM DS) 800-160 mg per tablet Take 1 tablet by mouth three times a week. - mycophenolate mofetil (CELLCEPT) 250 mg capsule Take 250 mg by mouth every 12 hours. 4 capsules - tacrolimus IR (PROGRAF) 0.5 mg capsule Take 0.5 mg by mouth two times a day. 2 capsules in am, 1 capsule evening - alendronate (FOSAMAX) 70 mg tablet Take 70 mg by mouth one time a week. In AM with cup of water on empty stomach. Nothing else by mouth and stay upright for 30 min. - amLODIPine (NORVASC) 5 mg tablet Take 5 mg by mouth once daily. - hydrOXYzine pamoate (VISTARIL) 25 mg capsule Take 25 mg by mouth three times a day as needed. - prednisoLONE acetate-bromfenac 1-0.075 % drps Use 1 Drop in eyes two times a day. - oxybutynin ER (DITROPAN XL) 10 mg 24 hr tablet Take 10 mg by mouth once daily. - acetaminophen 325 mg cap Take 2 capsules by mouth every 6 hours as needed for pain. - HYDROcodone-Acetaminop hen (NORCO) 10-325 mg per tablet Take 1 tablet by mouth every 4 hours as needed. - azithromycin (ZITHROMAX) 500 mg tablet Take 500 mg by mouth every Tuesday,Tuesday, y. - ipratropium-albuterol 20-100 mcg/actuation mist Inhale 3 mL as instructed four times daily. - Lecithin 1,200 mg cap Take 1,200 mg by mouth once daily. - MULTIVITAMIN ORAL Take 1 tablet by mouth. Problem List As Of Date 04/23/2024 Noted Resolved Chronic hypoxemic respiratory failure (HCC) [J9*05/09/2018 Centrilobular emphysema (HCC) [J43.2] 05/09/2018 CMV Recipient NEG [R76.8] 05/09/2018 Type O blood, Rh positive [Z67.40] 05/09/2018 Hiatal hernia [K44.9] 05/09/2018 Hypovitaminosis D [E55.9] 05/09/2018 Chronic right shoulder pain [M25.511, G89.29] 03/29/2024 Encounter Status:Closed by BENITA BUSTOS on 04/23/24 [facility] CNTHERAPYon 04-12-2024 CNTHERAPY OT/PT/Speech Visit (AKPTB) NICK HERNÁNDEZ ([id number]) 1960 M Date Time Provider Department 04/12/24 9:00 AM LENA TREJOPTLucia Date Time Provider Department Center 04/12/2024 9:00 AM [id number], DANIEL*AKPTB [facility] Reason for Visit: Physical Therapy [503] Primary Visit Diagnosis:Chronic right shoulder pain [M25.511, G89.29] Allergies As of Date: 04/12/2024 Noted Allergy Reaction FLUTICASONE FUROATE 10/27/2017 14 - Other: See Comments VILANTEROL 10/27/2017 14 - Other: See Comments CODEINE SULFATE 4 - Hives BREO ELLIPTA (FLUTICASONE FUROATE*04/28/2018 14 - Other: See Comments CODEINE 04/28/2018 4 - Hives ADHESIVE TAPE (ROSINS) 10/27/2017 4 - Hives Date Reviewed: 03/20/2024 Reviewed by: April Pierre PA-C - Fully Assessed Prescriptions as of 04/12/2024 - aspirin, enteric coated (ASPIRIN, ENTERIC COATED) 81 mg EC tablet Take 81 mg by mouth once daily. - calcium citrate-vitamin D3 (CITRACAL+D) 315 mg-5 mcg (200 unit) tab Take 1 tablet by mouth two times a day with meals. - citalopram hydrobromide (CELEXA) 10 mg tablet Take 10 mg by mouth once daily. - ergocalciferol 50,000 unit capsule (VITAMIN D2, DRISDOL) Take 50,000 Units by mouth one time a week. - gabapentin (NEURONTIN) 400 mg capsule Take 400 mg by mouth three times a day. - magnesium oxide 400 mg magnesium tab Take 400 mg by mouth two times a day. Take 2 tablets - pantoprazole DR (PROTONIX) 40 mg tablet Take 40 mg by mouth two times a day. - predniSONE (DELTASONE) 5 mg tablet Take 5 mg by mouth once daily. - rosuvastatin (CRESTOR) 10 mg tablet Take 10 mg by mouth once daily. - SITagliptin phosphate (JANUVIA) 100 mg tablet Take 100 mg by mouth once daily. - sulfamethoxazole-trime thoprim (BACTRIM DS) 800-160 mg per tablet Take 1 tablet by mouth three times a week. - mycophenolate mofetil (CELLCEPT) 250 mg capsule Take 250 mg by mouth every 12 hours. 4 capsules - tacrolimus IR (PROGRAF) 0.5 mg capsule Take 0.5 mg by mouth two times a day. 2 capsules in am, 1 capsule evening - alendronate (FOSAMAX) 70 mg tablet Take 70 mg by mouth one time a week. In AM with cup of water on empty stomach. Nothing else by mouth and stay upright for 30 min. - amLODIPine (NORVASC) 5 mg tablet Take 5 mg by mouth once daily. - hydrOXYzine pamoate (VISTARIL) 25 mg capsule Take 25 mg by mouth three times a day as needed. - prednisoLONE acetate-bromfenac 1-0.075 % drps Use 1 Drop in eyes two times a day. - oxybutynin ER (DITROPAN XL) 10 mg 24 hr tablet Take 10 mg by mouth once daily. - acetaminophen 325 mg cap Take 2 capsules by mouth every 6 hours as needed for pain. - HYDROcodone-Acetaminop hen (NORCO) 10-325 mg per tablet Take 1 tablet by mouth every 4 hours as needed. - azithromycin (ZITHROMAX) 500 mg tablet Take 500 mg by mouth every Tuesday,Tuesday, y. - ipratropium-albuterol 20-100 mcg/actuation mist Inhale 3 mL as instructed four times daily. - Lecithin 1,200 mg cap Take 1,200 mg by mouth once daily. - MULTIVITAMIN ORAL Take 1 tablet by mouth. Normal [facility] 36on 04-04-2024 36 Name of caller: Guilherme gutierrez Contact phone number: [phone] Relationship to Patient: patient Provider: [place] Practice: [facility] Chief Complaint/Reason for Call: Patient reported that he was returning a call from Majo regarding his medication. Patient stated that he took his last Fosemax pill on 03/25/24 and started his Forteo prescription on 04/02/24. Best time of day caller can be reached: Any Patient advised that office/PCP has 24-48 business hours to return their call: No Normal [facility] UP Online System [facility] No Panel [facility]on 03-30 [facility] 03-29-2024 CNTHERAPY OT/PT/Speech Visit (AKPTB) NICK HERNÁNDEZ ([id number]) 1960 M Date Time Provider Department 03/29/24 10:30 AM AR GARCIA Date Time Provider Department Center 03/29/2024 10:30 AM [id number] GARCIA [facility] Reason for Visit: PT Eval [747] Primary Visit Diagnosis:Chronic right shoulder pain [M25.511, G89.29] Allergies As of Date: 03/29/2024 Noted Allergy Reaction FLUTICASONE FUROATE 10/27/2017 14 - Other: See Comments VILANTEROL 10/27/2017 14 - Other: See Comments CODEINE SULFATE 4 - Hives BREO ELLIPTA (FLUTICASONE FUROATE*04/28/2018 14 - Other: See Comments CODEINE 04/28/2018 4 - Hives ADHESIVE TAPE (ROSINS) 10/27/2017 4 - Hives Date Reviewed: 03/20/2024 Reviewed by: April Pierre PA-C - Fully Assessed Prescriptions as of 03/29/2024 - aspirin, enteric coated (ASPIRIN, ENTERIC COATED) 81 mg EC tablet Take 81 mg by mouth once daily. - calcium citrate-vitamin D3 (CITRACAL+D) 315 mg-5 mcg (200 unit) tab Take 1 tablet by mouth two times a day with meals. - citalopram hydrobromide (CELEXA) 10 mg tablet Take 10 mg by mouth once daily. - ergocalciferol 50,000 unit capsule (VITAMIN D2, DRISDOL) Take 50,000 Units by mouth one time a week. - gabapentin (NEURONTIN) 400 mg capsule Take 400 mg by mouth three times a day. - magnesium oxide 400 mg magnesium tab Take 400 mg by mouth two times a day. Take 2 tablets - pantoprazole DR (PROTONIX) 40 mg tablet Take 40 mg by mouth two times a day. - predniSONE (DELTASONE) 5 mg tablet Take 5 mg by mouth once daily. - rosuvastatin (CRESTOR) 10 mg tablet Take 10 mg by mouth once daily. - SITagliptin phosphate (JANUVIA) 100 mg tablet Take 100 mg by mouth once daily. - sulfamethoxazole-trime thoprim (BACTRIM DS) 800-160 mg per tablet Take 1 tablet by mouth three times a week. - mycophenolate mofetil (CELLCEPT) 250 mg capsule Take 250 mg by mouth every 12 hours. 4 capsules - tacrolimus IR (PROGRAF) 0.5 mg capsule Take 0.5 mg by mouth two times a day. 2 capsules in am, 1 capsule evening - alendronate (FOSAMAX) 70 mg tablet Take 70 mg by mouth one time a week. In AM with cup of water on empty stomach. Nothing else by mouth and stay upright for 30 min. - amLODIPine (NORVASC) 5 mg tablet Take 5 mg by mouth once daily. - hydrOXYzine pamoate (VISTARIL) 25 mg capsule Take 25 mg by mouth three times a day as needed. - prednisoLONE acetate-bromfenac 1-0.075 % drps Use 1 Drop in eyes two times a day. - oxybutynin ER (DITROPAN XL) 10 mg 24 hr tablet Take 10 mg by mouth once daily. - acetaminophen 325 mg cap Take 2 capsules by mouth every 6 hours as needed for pain. - HYDROcodone-Acetaminop hen (NORCO) 10-325 mg per tablet Take 1 tablet by mouth every 4 hours as needed. - azithromycin (ZITHROMAX) 500 mg tablet Take 500 mg by mouth every Tuesday,Tuesday,. - ipratropium-albuterol 20-100 mcg/actuation mist Inhale 3 mL as instructed four times daily. - Lecithin 1,200 mg cap Take 1,200 mg by mouth once daily. - MULTIVITAMIN ORAL Take 1 tablet by mouth. [employer] Department: Therapy (PT/OT/Speech/Resp) ID: [id number] 03/29/2024 11:02 AM Author: AR GARCIA Signed by AR GARCIA PT on 03/29/2024 at 11:02 AM Document text: Program_ID:[id number] Access Code: [email or web address] URL: [email or web address] Date: 03-29-2024 Prepared By: Ar Garcia Program Notes Exercises - Standing Shoulder Extension with Dowel - 2 x daily - 7 x weekly - 2 sets - 10 reps - Shoulder extension with resistance - Neutral - 2 x daily - 7 x weekly - 2 sets - 10 reps - Shoulder External Rotation and Scapular Retraction with Resistance - 2 x daily - 7 x weekly - 2 sets - 10 reps - Standing Shoulder Posterior Capsule Stretch - 2 x daily - 7 x weekly - 1 sets - 5 reps -- Normal [facility] THERAPY NTon 03-29-2024 THERAPY NT HNO ID: [id number] Author: AR GARCIA PT Service: ? Author Type: Physical Therapist Type: Therapy (PT/OT/Speech/Resp) Filed: 03/29/2024 11:02 Note Text: Program_ID:[id number] Access Code: [email or web address] URL: [email or web address] Date: 03-29-2024 Prepared By: Ar Garcia Program Notes Exercises - Standing Shoulder Extension with Dowel - 2 x daily - 7 x weekly - 2 sets - 10 reps - Shoulder extension with resistance - Neutral - 2 x daily - 7 x weekly - 2 sets - 10 reps - Shoulder External Rotation and Scapular Retraction with Resistance - 2 x daily - 7 x weekly - 2 sets - 10 reps - Standing Shoulder Posterior Capsule Stretch - 2 x daily - 7 x weekly - 1 sets - 5 reps Normal [facility] Comprehensive metabolic 1998 panelon 03-27-2024 Albumin [Mass/Vol] 4.7 g/dL 3.6 - 5.1 g/dL [facility] Albumin/Globulin [Mass ratio] 2.0 {ratio} [facility] ALP [Catalytic activity/Vol] 83 U/L 35 - 144 U/L [facility] ALT [Catalytic activity/Vol] 23 U/L 9 - 46 U/L [facility] AST [Catalytic activity/Vol] 15 U/L 10 - 35 U/L [facility] Bilirubin [Mass/Vol] 0.3 mg/dL 0.2 - 1 .2 mg/dL [facility] Calcium [Mass/Vol] 10.3 mg/dL 8.6 - 10. 3 mg/dL [facility] Chloride [Moles/Vol] 104 mmol/L 98 - 11 0 mmol/L [facility] CO2 [Moles/Vol] 27 mmol/L 20 - 32 mmol/L [facility] Creatinine [Mass/Vol] 1.04 mg/dL 0.70 - 1.35 mg/dL [facility] GFR/1.73 sq M.predicted among non-blacks MDRD (S/P/Bld) [Vol rate/Area] 81 mL/min/{1.73_m2} > OR = 60 mL/min/1.73 m2 [facility] Globulin (S) [Mass/Vol] 2.4 g/dL [facility] Glucose [Mass/Vol] 125 mg/dL High 65 - 99 mg/dL [facility] Comment on above: Fasting reference interval For someone without known diabetes, a glucose value between 100 and 125 mg/dL is consistent with prediabetes and should be confirmed with a follow-up test. Interpretation and review of laboratory results Abnormal [facility] Potassium [Moles/Vol] 4.6 mmol/L 3.5 - 5.3 mmol/L [facility] Protein [Mass/Vol] 7.1 g/dL 6.1 - 8.1 g/dL [facility] Sodium [Moles/Vol] 143 mmol/L 135 - 146 mmol/L [facility] Urea nitrogen [Mass/Vol] 19 mg/dL 7 - 25 mg/dL [facility] Urea nitrogen/Creatinine [Mass ratio] SEE NOTE: [facility] Comment on above: Not Reported: BUN an d Creatinine are within reference range. No Panel Informationon 03-27 [facility] PTH, intacton 03-27-2024 Parathyrin.intact [Mass/Vol] 47 pg/mL 16 - 77 pg/mL [facility] Comment on above: Interpretive Guide Intact PTH Calcium ------- Normal Parathyroid Normal Normal Hypoparathyroidism Low or Low Normal Low Hyperparathyroidism Primary Normal or High High Secondary High Normal or Low Tertiary High High Non-Parathyroid Hypercalcemia Low or Low Normal High Office Visiton 03-23-2024 Follow-up visit [id number] Robel Hernández 1960 M Date Provider Department Center 03/23/2024 [id number], YASMIN OSTEO YASMIN OST None No family history on file Level of Service:19323 CT OFFICE/OUTPATIENT NEW MODERATE MDM 45 MINUTES Reason for Visit and Comments: Osteoporosis [[id number]] Normal [facility] PATINSon 03-23-2024 PATINS Please call me with the amount of calcium and vitamin D in your multivitamin. Please ensure 1200mg of calcium daily between diet and supplement, no more than 600mg at once. Normal [facility] Progress Noteon 03-23-2024 Progress Note [address] [facility] OSTE[facility] [address] [place] [address] Dept: [phone] Dept Loc: [phone] Visit type: New patient Reason for Visit: Osteoporosis Assessment and Plan 1. Other osteoporosis without current pathological fracture - PTH, intact - Comprehensive metabolic panel 2. Current use of steroid medication 3. History of recurrent vertebral fractures 4. Fracture Risk Assessment Score (FRAX) indicating greater than 20% risk for major osteoporosis-related fracture 5. Fracture Risk Assessment Score (FRAX) indicating greater than 3% risk for hip fracture 6. History of lung transplant (HCC) FRAX: 10 year risk of major osteoporotic fracture 27% and of hip fracture 11%. Osteoporosis Treatment Recommendations: Bone anabolic therapy was discussed as a treatment option for osteoporosis. Pt is aware of the risks of this therapy including the rare risk of osteosarcoma. Benefits of this therapy were also discussed. Pt understands that this therapy is self administered via subcutaneous injection daily for 18-24 months followed by anti-resorptive therapy. Lifestyle modifications were discussed as part of treatment for low bone mineral density. I recommended optimizing calcium to 1200mg daily in divided doses, preferably through diet. I also recommended optimizing vitamin D supplementation, patient will be guided on dosage adjustment pending labs if needed. We discussed limiting alcohol, caffeine and pop. I recommended adding prunes into daily diet for bone health. Safe weight bearing exercise recommended for 30 minutes at least three times weekly. Fall prevention was discussed. Safe lifting was discussed with this patient. Patient understands to lift with legs. Pt should avoid activities that cause bending and twisting of the spine such as crunches due to increased risk of vertebral fractures. Physical therapy referral was offered to the patient. Patient understands that physical therapy can be beneficial for osteoporosis to help with posture, balance/fall prevention and strength. Rosa Maria Method may also be used during therapy to help with muscle strengthening, posture and alignment. Pt will think about this. Will monitor DXA every 2 years. Pt is interested in starting forteo pending labs. Advised pt on the following: Adequate dietary calcium intake of 8880-8205 mg per day through diet and/or supplements. Vitamin D3 0043-3962 IU daily. Participate in weight bearing exercises. Optimize home environment to minimize falls. Ensure good vision through regular eye exams. Avoid tobacco use and excessive alcohol consumption. Avoid use of steroids unless clinically necessary. Options for medical therapy discussed. These include bisphosphonates (oral or IV), denusomab, romosozumab, and parathyroid hormone. Discussed pros and cons of each option. Discussed appropriate administration. Discussed possible side effects. Follow up in about 6 months (around 09/22/2024). Subjective The patient is referred for: Osteoporosis Referred by Akbar Davis DO The osteopenia/osteoporosi s was first diagnosed on: ~2018 Risk factors for osteoporosis in the patient are history of the following glucocorticoid use, PPI use. Fracture history: L2, L3, L4, T7 fractures no injuries. Family history of OP: No Hip fracture in parent: No Rheumatoid arthritis: No Steroid use of at least 3 months: Yes Current smoking: No Alcohol use: No Secondary osteoporosis: Yes Menopause: NA HRT use: None DEXA imagin10/22/22 FINDINGS: Femoral neck LEFT Density: 0.567 g/cm2 T-score: -2.7. This falls within the osteoporotic range. Z-score: -1.7 Total Hip LEFT Density: 0.688 g/cm2 T-score: -2.3. This falls within the osteopenic range. Z-score: -1.8 Comparison from prior examination: N/A Spine: L2 & L5 (prior L3, L4, and L5 vertebroplasty/Kyphopl asty) Density 0.536 g/cm2 T-score: -4.9. This falls within the osteoporotic range. Z-score: -4.3 Comparison from prior examination: N/A Labs: see below Current treatment: Fosamax 70mg weekly since 2019, has been taking with other pills Calcium supplementation: 315mg ca BID Vit D supplementation: 250iu D3 in calcium BID, 50,000iu D2 weekly Dairy intake: milk daily, yogurt, green vegetables Medications that the patient has used: fosamax Side effects of meds: None Kidney disease:No Kidney stones:Yes Liver disease:No Gastrointestinal issues: GERD, umbilical hernia Gastric bypass:No Difficulty swallowing: only with large pills Dental issues:well fitting upper partial. Sees dentist a couple of times yearly. History of radiation: No History of bone disease/HPT: No Review of Systems Constitutional: Negative for appetite change. HENT: Positive for dental problem. Negative for trouble swallowing. Upper partial. Gastrointestinal: Negative for consti (more content not included)... Normal [facility] CNOVon 03-20-2024 CNOV Office Visit (AGHWW1 ) NICK HERNÁNDEZ ([id number]) 1960 M Date Time Provider Department 03/20/24 10:30 AM KERMIT IVY AGHWW1 During your visit today, we recorded the following information about you: Respiration Weight Height 20/minute 100.6 kg 1.778 m Kermit Ivy MD 03/20/2024 11:23 AM Signed ORTHOPAEDIC SHOULDER AND ELBOW SERVICE HISTORY AND PHYSICAL EXAM REFERRING PROVIDER: No referring provider defined for this encounter. CHIEF COMPLAINT: right shoulder pain PAIN EVALUATION 03/15/2024 1855 03/20/2024 1020 Pain Level: 8 8 Pain Location: Shoulder-Right Shoulder-Right Description: Aching;Burning;Crushin g;Numbness;Radiating;S harp;Shooting;Sore;Sta bbing; Tingling Sharp;Aching;Numbness; Burning;Shooting Duration Amount of Time: 24 11 Duration Units: Months Months Frequency: Continuous Continuous Intervention/Comfort measure: Medication;Reposition; Relaxation;Heat;Pillow support;Positioning;Ro cking/holding -- Comments: Level 8 sometimes 10 -- Nick Hernández is a 63 year old male presents to clinic with right shoulder pain. Began last April without acute injury. Pain with reaching and lifting away from his body. Describes it as burning pain. History of a left shoulder arthroscopic rotator cuff repair, states his right shoulder feels similar. He underwent MRI evaluation in October. He has had no treatments on the shoulder. 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 No pertinent surgical history. SOCIAL HISTORY: Social History Tobacco Use Smoking status: Never Smokeless tobacco: Never Substance Use Topics Alcohol use: Never Drug use: Never ALLERGIES: ALLERGIES Allergen Reactions Fluticasone Furoate Other: See Comments Vilanterol Other: See Comments Codeine Sulfate Hives Breo Ellipta [Fluti* Other: See Comments Codeine Hives Adhesive Tape (Dorina* Hives MEDICATIONS: Current Outpatient Medications on File Prior to Visit Medication Sig aspirin, enteric coated (ASPIRIN, ENTERIC COATED) 81 mg EC tablet Take 81 mg by mouth once daily. calcium citrate-vitamin D3 (CITRACAL+D) 315 mg-5 mcg (200 unit) tab Take 1 tablet by mouth two times a day with meals. citalopram hydrobromide (CELEXA) 10 mg tablet Take 10 mg by mouth once daily. ergocalciferol 50,000 unit capsule (VITAMIN D2, DRISDOL) Take 50,000 Units by mouth one time a week. gabapentin (NEURONTIN) 400 mg capsule Take 400 mg by mouth three times a day. magnesium oxide 400 mg magnesium tab Take 400 mg by mouth two times a day. Take [address] (PROTONIX) 40 mg tablet Take 40 mg by mouth two times a day. predniSONE (DELTASONE) 5 mg tablet Take 5 mg by mouth once daily. rosuvastatin (CRESTOR) 10 mg tablet Take 10 mg by mouth once daily. SITagliptin phosphate (JANUVIA) 100 mg tablet Take 100 mg by mouth once daily. sulfamethoxazole-trime thoprim (BACTRIM DS) 800-160 mg per tablet Take 1 tablet by mouth three times a week. mycophenolate mofetil (CELLCEPT) 250 mg capsule Take 250 mg by mouth every 12 hours. 4 capsules tacrolimus IR (PROGRAF) 0.5 mg capsule Take 0.5 mg by mouth two times a day. 2 capsules in am, 1 capsule evening alendronate (FOSAMAX) 70 mg tablet Take 70 mg by mouth one time a week. In AM with cup of water on empty stomach. Nothing else by mouth and stay upright for 30 min. amLODIPine (NORVASC) 5 mg tablet Take 5 mg by mouth once daily. hydrOXYzine pamoate (VISTARIL) 25 mg capsule Take 25 mg by mouth three times a day as needed. prednisoLONE acetate-bromfenac 1-0.075 % drps Use 1 Drop in eyes two times a day. oxybutynin ER (DITROPAN XL) 10 mg 24 hr tablet Take 10 mg by mouth once daily. acetaminophen 325 mg cap Take 2 capsules by mouth every 6 hours as needed for pain. HYDROcodone-Acetaminop hen (NORCO) 10-325 mg per tablet Take 1 tablet by mouth every 4 hours as needed. azithromycin (ZITHROMAX) 500 mg tablet Take 500 mg by mouth every Tuesday,Tuesday, y. ipratropium-albuterol 20-100 mcg/actuation mist Inhale 3 mL as instructed four times daily. Lecithin 1,200 mg cap Take 1,200 mg by mouth once daily. MULTIVITAMIN ORAL Take 1 tablet by mouth. No current facility-administered medications on file prior to visit. PHYSICAL EXAMINATION: Resp 20 Ht 177.8 cm (5' 10 ) Wt 100.6 kg (221 lb 12.8 oz) BMI 31.82 kg/m? EXAM: Shoulder Musculoskeletal Exam Inspection Right Right shoulder inspection is devonte (more content not included)... Normal [facility]: [facility] Kermit Ivy MD 03/20/2024 11:23 AM Large Joint Arthro/Inj: R shoulder joint 03/20/2024 11:22 AM The procedure site was prepped in the usual sterile fashion. Site: R shoulder joint Medications: 80 mg triamcinolone acetonide 40 mg/mL Anesthetics: 4 mL bupivacaine (PF) 0.25 % (2.5 mg/mL) Outcome: Tolerated well, no immediate complications Post-injection instructions were reviewed with the patient and the patient voiced understanding of these instructions. [facility] No Panel Informationon 12-29 [facility] 36on 12-15-2023 36 Called patient Nick to reschedule appointment, no answer. Left message for patient to call back to reschedule. Normal [facility] 36 Name of caller: Guilherme gutierrez Contact phone number: [phone] Relationship to Patient: patient Provider: any Practice: [facility] Chief Complaint/Reason for Call: Patient needs to reschedule appointment that was today at 12.15.2023. Patient has covid. Please call to reschedule. Please advise. Best time of day caller can be reached: any Patient advised that office/PCP has 24-48 business hours to return their call: No Normal [facility] CT CHEST WITHOUT CONTRASTon 11-08-2023 CT CHEST WITHOUT CONTRAST EXAM: CT CHEST WITHOUT CONTRAST COMPARISON: November 08, 2022 CLINICAL INDICATIONS: s/p lung transplant TECHNIQUE: Non contrast axial CT images of the chest 5 mm with 1 mm contiguous high-resolution, coronal MIP and sagittal MPR series. Contiguous 1.5 mm axial high resolution supine expiratory images FINDINGS: No focal air trapping on expiratory series Moderate left hemidiaphragm elevation unchanged Patchy subsegmental atelectasis dependent right lower lung unchanged No new suspicious pulmonary nodule, mass, infiltrate or pleural effusion Surgical clips bilateral kamilla No new adenopathy within the chest Thyroid appears normal Median sternotomy wires Hiatal hernia mild fluid reflux lower esophagus No new aggressive osteolytic or blastic bony lesion Multilevel vertebroplasty's mid thoracic and thoracolumbar junction Median sternotomy wires No new suspicious finding limited upper abdomen Fatty infiltration liver IMPRESSION: 1. Postsurgical change, no evidence of new primary or metastatic neoplasia in the chest Curtis Patel M.D. This report has been electronically signed and verified by the Radiologist whose name is printed above. / This report contains privileged and confidential information and is intended solely for the use of the individual or entity to which it is addressed. If you are not the intended recipient of this report, you are hereby notified that any copying, distribution, dissemination or action taken in relation to the contents of this report is strictly prohibited and may be unlawful. If you have received this report in error, please notify the sender immediately at [phone] and permanently delete the original report and destroy any copies or printouts. Normal [facility] ALLOSCREEN RECIPIENT (POST T X PRA)on 11-07-2023 AB SPECIFICITY CLASS COMMENT Antibody Specificity testing performed by [employer]. cPRA calculation based on identification of HLA antibody specificities at MFI >2000 and/or presence of CREG antibodies. Normal [facility] Comment on above: Result Comment: Some of the reagents used for testing in the Clinical Histocompatibility Laboratory have yet to be approved by the FDA. Our certification by CLIA to perform high complexity tests allows us to use these reagents in the context of a stringent QC program, and obviates the need for FDA approval.Testing performed by the [facility] Clinical Histocompatibility Laboratory. [facility] number: [id number]. CLIA number: [id number], Director: Ignacio Shook, PhD, F([facility]). Performed By: #### T SH, FT4 #### [facility] (DEFAULT) [address] [address] ANTIBODY SPECIFICITY INTERPRETATION Detected Normal [facility] Comment on above: Performed By: #### T SH, FT4 #### [facility] (DEFAULT) [address] [place] [address] CLASS I SPECIFICITIES Not detected Normal [facility] Comment on above: Performed By: #### T SH, FT4 #### [facility] (DEFAULT) [address] [address] CLASS II SPECIFICITIES Not detected Normal [facility] Comment on above: Performed By: #### T SH, FT4 #### [facility] (DEFAULT) [address] [address] cPRA 0 % Normal 0 [facility] Comment on above: Performed By: #### T SH, FT4 #### [facility] (DEFAULT) [address] [address] CALCIUMon 11-07-2023 Calcium [Mass/Vol] 9.7 mg/dL Normal 8.6-10.5 [facility] Comment on above: Performed By: #### T SH, FT4 #### [facility] (DEFAULT) [address] [address] CBC AND ELECTRONIC DIFFon Abs Baso Auto < Normal 0.00-0.09 [facility] Comment on above: Performed By: #### L [id number] #### [facility] (DEFAULT) [address] [place] [address] Basophils/100 WBC (Bld) 0.4 % Normal [facility] Comment on above: Performed By: #### L [id number] #### [facility] (DEFAULT) [address] [place] [address] DIFF STATUS Electronic Differential Normal [facility] Comment on above: Performed By: #### L [id number] #### [facility] (DEFAULT) [address] [address] Eosinophils (Bld) [#/Vol] 0.07 10*3/uL Normal 0.00-0.48 [facility] Comment on above: Performed By: #### L [id number] #### [facility] (DEFAULT) [address] [address] Eosinophils/100 WBC (Bld) 0.9 % Normal [facility] Comment on above: Performed By: #### L [id number] #### [facility] (DEFAULT) [address] [place] [address] Hematocrit (Bld) [Volume fraction] 43.4 % Normal 39.6-48.8 [facility] Comment on above: Performed By: #### L [id number] #### [facility] (DEFAULT) [address] [address] Hemoglobin (Bld) [Mass/Vol] 13.4 g/dL Normal 13.4-16.8 [facility] Comment on above: Performed By: #### L [id number] #### [facility] (DEFAULT) [address] [address] Immature Grans % 0.5 % Normal [facility] Comment on above: Performed By: #### L [id number] #### [facility] (DEFAULT) [address] [place] [address] Immature Grans Absolute 0.04 K/uL Normal <=0.07 [facility] Comment on above: Performed By: #### L [id number] #### [facility] (DEFAULT) [address] [place] [address] Lymphocytes (Bld) [#/Vol] 1.77 10*3/uL Normal 0.83-3.57 [facility] Comment on above: Performed By: #### L [id number] #### [facility] (DEFAULT) [address] [place] [address] Lymphocytes/100 WBC (Bld) 23.3 % Normal [facility] Comment on above: Performed By: #### L [id number] #### [facility] (DEFAULT) [address] [place] [address] MCV (RBC) [Entitic vol] 92.3 fL Normal 79.0-94.5 [facility] Comment on above: Performed By: #### L [id number] #### [facility] (DEFAULT) [address] [place] [address] Mean Cell Hgb 28.5 pg Normal 26.1-33.3 [facility] Comment on above: Performed By: #### L [id number] #### [facility] (DEFAULT) [address] [place] [address] Mean Cell Hgb Conc 30.9 g/dL Low 31.9-36.5 [facility] Comment on above: Performed By: #### L [id number] #### [facility] (DEFAULT) [address] [place] [address] Monocytes (Bld) [#/Vol] 0.71 10*3/uL Normal 0.24-0.93 [facility] Comment on above: Performed By: #### L [id number] #### [facility] (DEFAULT) [address] [place] [address] Monocytes/100 WBC (Bld) 9.3 % Normal [facility] Comment on above: Performed By: #### L [id number] #### [facility] (DEFAULT) [address] [address] Nucleated RBC 0.0 /100 WBC Normal <=0.[address] [facility] Comment on above: Performed By: #### L [id number] #### [facility] (DEFAULT) [address] [address] Platelet mean volume (Bld) [Entitic vol] 10.6 fL Normal 8.7-12.3 [facility] Comment on above: Performed By: #### L [id number] #### [facility] (DEFAULT) [address] [address] Platelets (Bld) [#/Vol] 255 10*3/uL Normal 146-337 [facility] Comment on above: Performed By: #### L [id number] #### [facility] (DEFAULT) [address] [address] RBC (Bld) [#/Vol] 4.70 10*6/uL Normal 4.38-5.83 [facility] Comment on above: Performed By: #### L [id number] #### [facility] (DEFAULT) [address] [address] RBC Distribution 13.9 % Normal 10.9-14.3 [facility] Comment on above: Performed By: #### L [id number] #### [facility] (DEFAULT) [address] [address] Segs + Bands Auto 65.6 % Normal [facility] Comment on above: Performed By: #### L [id number] #### [facility] (DEFAULT) [address] [address] Segs + Bands,Absolute Auto 4.99 K/uL Normal 1.57-6.19 [facility] Comment on above: Performed By: #### L [id number] #### [facility] (DEFAULT) [address] [place] [address] WBC (Bld) [#/Vol] 7.61 10*3/uL Normal 3.73-10.10 [facility] Comment on above: Performed By: #### L [id number] #### [facility] (DEFAULT) [address] [place] [address] CHEM 7 (LYTES,BUN,CREA,GLUC) on 11-07-2023 Anion gap [Moles/Vol] 16 mmol/L Normal 7-17 [facility] Comment on above: Performed By: #### T SH, FT4 #### [facility] (DEFAULT) [address] [place] [address]807 Chloride [Moles/Vol] 103 mmol/L Normal 98-108 [facility] Comment on above: Performed By: #### T SH, FT4 #### [facility] (DEFAULT) [address] [place] [address] 84623 CO2 [Moles/Vol] 27 mmol/L Normal 21-[address] [facility] Comment on above: Performed By: #### T SH, FT4 #### [facility] (DEFAULT) [address] [place] [address] 13846 Creatinine [Mass/Vol] 1.02 mg/dL Normal 0.70-1.30 [facility] Comment on above: Performed By: #### T SH, FT4 #### [facility] (DEFAULT) [address] [place] [address] 66420 GFR/1.73 sq M.predicted among non-blacks MDRD (S/P/Bld) [Vol rate/Area] 84 mL/min/{1.73_m2} Normal >=60 [facility] Comment on above: Result Comment: Repo rted eGFR is based on the CKD-EPI 2020 equation using creatinine, age, and sex. Performed By: #### T SH, FT4 #### [facility] (DEFAULT) [address] [place] [address] 10799 Glucose [Mass/Vol] 91 mg/dL Normal 70-99 [facility] Comment on above: Performed By: #### T GORDO, FT4 #### [facility] (DEFAULT) [address] [address] Osmolality [Osmolality] 296 mosm/kg Normal 278-305 [facility] Comment on above: Performed By: #### T GORDO, FT4 #### [facility] (DEFAULT) [address] [address] Potassium [Moles/Vol] 3.6 mmol/L Normal 3.5-5.0 [facility] Comment on above: Performed By: #### Tad CARO, FT4 #### [facility] (DEFAULT) [address] [address] Sodium [Moles/Vol] 142 mmol/L Normal 135-145 [facility] Comment on above: Performed By: #### Tad CARO, FT4 #### [facility] (DEFAULT) [address] [address] Urea nitrogen [Mass/Vol] 15 mg/dL Normal 7-25 [facility] Comment on above: Performed By: #### Tad CARO, FT4 #### [facility] (DEFAULT) [address] [address] Urea nitrogen/Creatinine [Mass ratio] 15 mg/mg Normal [facility] Comment on above: Performed By: #### Tad CARO, FT4 #### [facility] (DEFAULT) [address] [place] [address] CMV BY PCR, QUANTITATIVE, BL OODon 11-07-2023 CMV By Pcr, Iu/Ml, Plasma <50 Normal <50 [facility] Comment on above: Order Comment: This test was performed using a real time CMV PCR assay. The dynamic range for this assay is 50-156,000,000 IU/mL. Results should be interpreted in conjunction with other clinical and laboratory. Performed By: #### T GORDO, FT4 #### [facility] (DEFAULT) [address] [place] [address] EBV BY PCR, QUANTITATIVE,BLO ODon 11-07-2023 Ebv By Pcr, Quant, Blood <1000 Normal <1000 [facility] Comment on above: Order Comment: This test was performed using a real time PCR assay. The dynamic range for this assay is 1000-5,000,000 IU/mL. A result <1000 IU/mL does not rule out the presence of EBV DNA in quantities below the sensitivity of this assay. This test was developed and its performance characteristics determined by [facility]. It has not been cleared or approved by the FDA. The laboratory is regulated under CLIA as qualified to perform high-complexity testing. This test is used for clinical purposes. It should not be regarded as investigational or for research. Performed By: #### E BVPCR #### [facility] (DEFAULT) [address] [place] [address] ECHOCARDIOGRAMon 11-07-2023 Echocardiography Image acquisition an d interpretation technically challenging. Left ventricle is normal in size and systolic function; EF 55-60%. Diastolic function is normal. Right ventricle is not well visualized; unable to reliably comment on size or function. Recommend alternate imaging modality if clinically appropriate. Estimated RVSP would be 25 mmHg over the right atrial pressure; unable to estimate given poor IVC visualization. Atria appear normal in size. No hemodynamically significant valvular disease. No pericardial effusion. Aortic root measures mildly enlarged at 4.0 cm (1.9 cm/m2) Compared to the prior echo, aortic root measures larger. Table formatting from the original result was not included. Images from the original result were not included. 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 Left ventricle is normal in size and systolic function; EF 55-60%. Diastolic function is normal. Right ventricle is not well visualized; unable to reliably comment on size or function. Recommend alternate imaging modality if clinically appropriate. Estimated RVSP would be 25 mmHg over the right atrial pressure; unable to estimate given poor IVC visualization. Atria appear normal in size. No hemodynamically significant valvular disease. No pericardial effusion. Aortic root measures mildly enlarged at 4.0 cm (1.9 cm/m2) Compared to the prior echo, aortic root measures larger. Findings Left Ventricle Chamber size is normal. Normal global systolic function. Regional wall motion is normal. Ejection fraction is normal (55 - 60%). Diastolic function is normal. Right Ventricle Right ventricle not well visualized. Systolic function is moderately reduced. Right ventricular S' is 8.64 cm/s. Tricuspid annular plane systolic excursion is 0.64 cm. Left Atrium Chamber size is normal. Right Atrium Chamber size is normal. Septum Atrial septum not well visualized. Mitral Valve Normal appearing leaflets. Leaflet mobility is normal. No regurgitation. No valve stenosis. Aortic Valve Trileaflet valve. Leaflet mobility is normal. No regurgitation. No stenosis. Tricuspid Valve Normal leaflets. Leaflet mobility is normal. Trace regurgitation. No stenosis. Pulmonic Valve Normal structure. No regurgitation. No stenosis. Aorta Sinuses of Valsalva/aortic root is mildly enlarged. SOV: 4.02 cm. SOV index: 1.89 cm/m2. Pericardium No pericardial effusion. IVC/SVC Inferior vena cava not well visualized. 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 Recreation Assistant 11/07/2023 Left Heart Measurements LV - Systole LV EDV BP 75 mL LV ESV BP 33 mL BP EF 56 % LV stroke volume BP (ml) 42 mL LV stroke volume index BP 19.72 mL/m2 LV - Diastole MV pk E vielka 0.78 m/s MV pk A vielka 0.52 m/s E/A ratio 1.5 e' septal pk vielka 0.1 m/s e' lateral pk vielka 0.12 m/s Avg e' pk vielka 0.11 m/s E/e' septal ratio 7.59 E/e' lateral ratio 6.7 Avg E/e' ratio 7.15 LV - HCM AV LVOT peak gradient 5 mmHg Left Atrium LA ESV SP 4CH (MOD) 40 mL LA ESV SP 2CH (MOD) 55 mL LA ESV BP (MOD) index 23 mL/m2 Right Heart Measurements RV - Doppler TAPSE 0.64 cm RV S' 8.64 cm/s Right Atrium RA vol index 4CH (MOD) 10.8 mL/m2 Great Vessels Aortic Root - End Diastolic Sinus 4.02 cm Doppler Measurements - Aortic Valve Stenosis LVOT diameter 2 cm LVOT area 3.14 cm2 LVOT peak vielka 1.12 m/s LVOT peak VTI 20.14 cm Stroke Volume 63 cm/mL Stroke volume index 30 Ao peak vielka 1.22 m/s Ao VTI 21.56 cm AV peak gradient 6 mmHG AV mean gradient 3 mmHg DI (VTI) 0.93 m/2 DI (Vmax) 0.92 DUNG (continuity Vmax) 2.88 cm2 DUNG index (continuity Vmax) 1.35 m/s DUNG (continuity VTI) 2.93 cm2 DUNG index (continuity VTI) 1.38 cm2/m2 LVOT stroke volume 63 cm3 LVOT stroke volume index 29.69 ml/m2 Doppler Measurements - Mitral Valve Stenosis MV pk E vielka 0.78 m/s MV pk A vielka 0.52 m/s E/A ratio 1.5 MV stenosis pressure 1/2 time 41.93 ms MV valve area p 1/2 method 5.25 cm2 PISA-MS MV pk E vielka 0.78 m/s Doppler Measurements - Tricuspid Valve Regurgitation TR pk vielka 2.5 m/s TR pk grad 25 mmHg Doppler Measurements - Pulmonic Valve Stenosis PV (more content not included)... Normal [facility] FERRITINon 11-07-2023 Ferritin [Mass/Vol] 15.2 ng/mL Normal 10.5-307.3 [facility] Comment on above: Performed By: #### F ERIB #### [facility] (DEFAULT) [address] [address] HEMOGLOBIN A1Con 11-07-2023 Glucose [Mass/Vol] 140 mg/dL Normal [facility] Comment on above: Performed By: #### A 1CB #### [facility] (DEFAULT) [address] [address] Hemoglobin A1C HPLC 6.5 % High 4.7-5.6 [facility] Comment on above: Performed By: #### A 1CB #### [facility] (DEFAULT) [address] [place] [address] HEPATIC FUNCTION PANELon Albumin [Mass/Vol] 4.4 g/dL Normal 3.5-5.0 [facility] Comment on above: Performed By: #### T GORDO, FT4 #### [facility] (DEFAULT) [address] [place] [address] ALP [Catalytic activity/Vol] 58 U/L Normal 32-126 [facility] Comment on above: Performed By: #### T GORDO, FT4 #### [facility] (DEFAULT) [address] [place] [address] 76387 ALT [Catalytic activity/Vol] 25 U/L Normal 10-52 [facility] Comment on above: Performed By: #### Tad CARO, FT4 #### [facility] (DEFAULT) [address] [place] [address] 78200 AST [Catalytic activity/Vol] 25 U/L Normal 10-39 [facility] Comment on above: Performed By: #### T GORDO, FT4 #### [facility] (DEFAULT) [address] [place] [address]92 Bilirubin [Mass/Vol] 0.4 mg/dL Normal <1.5 [facility] Comment on above: Performed By: #### T GORDO, FT4 #### [facility] (DEFAULT) [address] [place] [address] 87510 Bilirubin.indirect [Mass/Vol] 0.1 mg/dL Normal <0.3 [facility] Comment on above: Performed By: #### T GORDO, FT4 #### [facility] (DEFAULT) [address] [place] [address] 74657 Protein [Mass/Vol] 7.0 g/dL Normal 6.4-8.3 [facility] Comment on above: Performed By: #### T SH, FT4 #### [facility] (DEFAULT) [address] [place] [address] 92382 IMMUNOGLOBULINS IGG IGA IGMo n 11-07-2023 IgA [Mass/Vol] 74 mg/dL Low 90-410 [facility] Comment on above: Performed By: #### T SH, FT4 #### [facility] (DEFAULT) [address] [place] [address] 20547 IgG [Mass/Vol] 662 mg/dL Normal 600-1560 [facility] Comment on above: Performed By: #### T SH, FT4 #### [facility] (DEFAULT) [address] [place] [address]34 IgM [Mass/Vol] 22 mg/dL Low 30-360 [facility] Comment on above: Performed By: #### T SH, FT4 #### [facility] (DEFAULT) [address] [place] [address] IRON/IRON BINDING/TRANSFERRI Non 11-07-2023 Iron [Mass/Vol] 51 ug/dL Normal 40-[address] [facility] Comment on above: Performed By: #### T SH, FT4 #### [facility] (DEFAULT) [address] [place] [address] 6[address]11 Iron Saturation 13 % Low 20-[address] [facility] Comment on above: Performed By: #### T SH, FT4 #### [facility] (DEFAULT) [address] [place] [address] 63392 Total Iron Binding Capacity 403 mcg/dL Normal 250-425 [facility] Comment on above: Performed By: #### T SH, FT4 #### [facility] (DEFAULT) [address] [place] [address]71 Transferrin [Mass/Vol] 322 mg/dL Normal 200-400 [facility] Comment on above: Performed By: #### T SH, FT4 #### [facility] (DEFAULT) [address] [place] [address]32 LACTATE DEHYDROGENASEon 10-18 LD Total 251 U/L High 100-190 [facility] Comment on above: Performed By: #### T GORDO, FT4 #### [facility] (DEFAULT) [address] [place] [address] LIPID PANEL W CALCULATED LDL on 11-07-2023 Calculated LDL Cholesterol 71 mg/dL Normal 0-99 [facility] Comment on above: Result Comment: [<10 0 mg/dL: Optimal] [100-129 mg/dL: Near Optimal] [130-159 mg/dL: Borderline High] [160-189 mg/dL: High] [>189 mg/dL: Very High] Performed By: #### Tad CARO, FT4 #### [facility] (DEFAULT) [address] [place] [address]80 Cholesterol [Mass/Vol] 203 mg/dL High <200 [facility] Comment on above: Result Comment: [<20 0 mg/dL: Desirable] [200-239 mg/dL: Borderline High] [>239 mg/dL: High] Performed By: #### Tad CARO, FT4 #### [facility] (DEFAULT) [address] [place] [address]44 Cholesterol in HDL [Mass/Vol] 54 mg/dL Normal >=40 [facility] Comment on above: Result Comment: [<40 mg/dL: Low (High Risk)] [>59 mg/dL: High (Low Risk)] Performed By: #### Tad CARO, FT4 #### [facility] (DEFAULT) [address] [place] [address] 83348 Non HDL Cholesterol 149 mg/dL High <130 [facility] Comment on above: Performed By: #### Tad CARO, FT4 #### [facility] (DEFAULT) [address] [place] [address] Total Cholesterol/HDL Ratio 3.8 Normal <4.5 [facility] Comment on above: Performed By: #### Tad CARO, FT4 #### [facility] (DEFAULT) [address] [address] Triglyceride [Mass/Vol] 390 mg/dL High <150 [facility] Comment on above: Result Comment: [<15 0 mg/dL: Desirable] [150-199 mg/dL: Borderline] [200-499 mg/dL: High] [>500 mg/dL: Very High] Performed By: #### T GORDO, FT4 #### [facility] (DEFAULT) [address] [address] MAGNESIUMon 11-07-2023 Magnesium [Mass/Vol] 1.6 mg/dL Normal 1.6-2.6 [facility] Comment on above: Performed By: #### Tad CARO, FT4 #### [facility] (DEFAULT) [address] [address] NICOTINE AND METABOLITES,SER UMon 11-07-2023 COTININE <3.0 Normal <3.0 [facility] Comment on above: Result Comment: ADDITIONAL INFORMATION This test was developed and its performance characteristics determined by [facility] in a manner consistent with CLIA requirements. This test has not been cleared or approved by the U.S. Food and Drug Administration. Test Performed by: [facility] [place] [address] Personnel Records Clerk: Chris Black M.D. Ph.D.; CLIA# [id number] Performed By: #### Tad CARO, FT4 #### [facility] (DEFAULT) [address] [address] NICOTINE <3.0 Normal <3.0 [facility] Comment on above: Performed By: #### Tad CARO, FT4 #### [facility] (DEFAULT) [address] [address] PHOSPHATE, INORGANICon 11-07 Phosphorous 2.6 mg/dL Normal 2.2-4.6 [facility] Comment on above: Performed By: #### T SH, FT4 #### [facility] (DEFAULT) [address] [place] [address] PREALBUMINon 11-07-2023 Prealbumin [Mass/Vol] 29 mg/dL Normal 17-34 [facility] Comment on above: Performed By: #### T SH, FT4 #### [facility] (DEFAULT) [address] [place] [address] PROTIME-INRon 11-07-2023 INR Coag (PPP) [Relative time] 1.0 {INR} Normal 0.9-1.1 [facility] Comment on above: Performed By: #### P TI #### [facility] (DEFAULT) [address] [place] [address] PT Coag (PPP) [Time] 13.2 s Normal 11.9-14.2 [facility] Comment on above: Performed By: #### P TI #### [facility] (DEFAULT) [address] [place] [address] T4 FREEon 11-07-2023 Free T4 [Mass/Vol] 1.28 ng/dL Normal 0.89-1.76 [facility] Comment on above: Performed By: #### T SH, FT4 #### [facility] (DEFAULT) [address] [place] [address] TACROLIMUS LEVEL, TROUGH (CT E DRUG LEVEL)on 11-07-2023 Tacrolimus, Trough 5.7 ng/mL Normal Bone Jose ow Transplant: 4.0-12.0, Therapeutic : 5.0-15.0 [facility] Comment on above: Order Comment: Metho d performed is a chemiluminescent microparticle immunoasssay on the [employer] i2000.The range is based on experience at [facility] and users should be aware that target concentrations vary widely depending on concomitant therapy, time post-transplant, and desired degree of immunosuppression. Performed By: #### T SH, FT4 #### [facility] (DEFAULT) [address] [place] [address] TSHon 11-07-2023 TSH 3.633 uIU/mL Normal 0.550-4.780 [facility] Comment on above: Performed By: #### T SH, FT4 #### [facility] (DEFAULT) [address] [place] [address] VITAMIN D (25-HYDROXY,TOTAL) on 11-07-2023 25-OH Vitamin D Total 34.3 ng/mL Normal 30.0-100.0 [facility] Comment on above: Order Comment: Vitam in D values have been shown to be falsely decreased in lipemic samples and should be interpreted with caution. Result Comment: <10 Deficiency 10-29 Insufficiency 30-100 Optimal Level >100 Possible Toxicity Performed By: #### D 25OH #### [facility] (DEFAULT) [address] [place] [address] MR Shoulder - right WO contr alea 11-03-2023 Impression: Significant muscular atrophy of the supraspinatus and lesser denervation changes of the infraspinatus with mild atrophy. 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 Report Dictated on Electronically Signed By: Cristobal Coreas MD Electronically Signed Date/Time: 11/03/2023 10:27 AM [facility] 1960 [id number] Exam Date/Time: 11/03/2023 06:42 Procedure: MR SHOULDER RIGHT WO IV CONTRAST Ordering Provider: HANSEN BETH Reason For Exam: rt shoulder osteoarthritis Examination: MRI right shoulder Indication: rt shoulder osteoarthritis Technique: Multiplanar multi-sequence MRI images of the right shoulder were obtained. Findings: Suspect mild supraspinatus tendinosis. No sizable rotator cuff tear is demonstrated. There is at least moderate or slightly greater muscular atrophy of the supraspinatus. Mild infraspinatus muscular atrophy is present with associated muscular edema. No sizable glenohumeral joint effusion is present. There is trace fluid in the subacromial subdeltoid bursa. No sizable labral tear noted. The long head biceps tendon appears intact and unremarkable. The glenohumeral articular cartilage is grossly intact and unremarkable. There is no subchondral edema or subchondral cystic change noted. There is no focal marrow replacing lesion or occult fracture. Moderate hypertrophic change of the AC joint is present. There is subchondral marrow edema of the distal clavicle. The deltoid musculature is grossly unremarkable. The inferior joint capsule is grossly unremarkable. There is no axillary adenopathy noted. [facility] Cristobal Coreas MD - 11/03/2023 Patient Name: NICK HERNÁNDEZ : 1960 Exam Date/Time: 11/03/2023 06:42 Procedure: MR SHOULDER RIGHT WO IV CONTRAST Ordering Provider: HANSEN BETH Reason For Exam: rt shoulder osteoarthritis Examination: MRI right shoulder Indication: rt shoulder osteoarthritis Technique: Multiplanar multi-sequence MRI images of the right shoulder were obtained. Findings: Suspect mild supraspinatus tendinosis. No sizable rotator cuff tear is demonstrated. There is at least moderate or slightly greater muscular atrophy of the supraspinatus. Mild infraspinatus muscular atrophy is present with associated muscular edema. No sizable glenohumeral joint effusion is present. There is trace fluid in the subacromial subdeltoid bursa. No sizable labral tear noted. The long head biceps tendon appears intact and unremarkable. The glenohumeral articular cartilage is grossly intact and unremarkable. There is no subchondral edema or subchondral cystic change noted. There is no focal marrow replacing lesion or occult fracture. Moderate hypertrophic change of the AC joint is present. There is subchondral marrow edema of the distal clavicle. The deltoid musculature is grossly unremarkable. The inferior joint capsule is grossly unremarkable. There is no axillary adenopathy noted. IMPRESSION: Impression: Significant muscular atrophy of the supraspinatus and lesser denervation changes of the infraspinatus with mild atrophy. 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 Report Dictated on Electronically Signed By: Cristobal Coreas MD Electronically Signed Date/Time: 11/03/2023 10:27 AM EST [facility] Radiology Study observation (narrative) [facility] MR Shoulder - right WO contr astOrdered By: Cristobal Coreas on 11-03-2023 Gust Work Phone: MR Cervical spine WO contras ton 08-16-2023 Impression: Grade 1 anterior listhesis at C2/C3 and C3/C4, with mild central canal stenosis. Report Dictated on Electronically Signed By: Cristobal Coreas MD Electronically Signed Date/Time: 08/16/2023 3:19 PM EDT [facility] Patient Name: NICK BANKS : 1960 Exam Date/Time: 08/16/2023 07:54 Procedure: MR CERVICAL SPINE WO CONTRAST Ordering Provider: LOJA LISA Reason For Exam: m79.601 Examination: MRI cervical spine Indication: m79.601 Technique: Multiplanar multi-sequence MRI images of the cervical spine were obtained. Findings: Grade 1 anterior listhesis is present at C2/C3 and C3/C4. Otherwise, the cervical vertebral bodies are in gross anatomic alignment. There is no acute fracture. There is no focal marrow replacing lesion. Mild disc space loss is present at C3/C4. The cervical cord is grossly of normal caliber without signal abnormality. There is no cerebellar tonsillar ectopia. The paraspinal musculature is grossly unremarkable. Central canal narrowing detailed below is secondary posterior disc bulging and disc osteophyte complexes, unless otherwise specified. Foraminal narrowing is secondary to disc osteophyte complex, uncovertebral hypertrophy or degenerative facets, unless otherwise specified. At the C2/C3 level, grade 1 anterior listhesis is present. Mild right and no significant left-sided foraminal narrowing is noted. The central canal is patent. At the C3/C4 level, grade 1 anterior listhesis is present. There is mild diffuse posterior disc bulging. Small osteophytes project into the left neural foramen. Moderate left and mild right-sided foraminal narrowing is noted. There is mild central canal stenosis. At the C4/C5 level, minimal posterior disc bulging is present. The central canal is patent. Minimal left and no significant right-sided foraminal narrowing is present. At the C5/C6 level, the central canal and foramina are patent. At the C6/C7 level, mild posterior disc bulging is present with patent central canal and foramina. At the C7/T1 level, the central canal and foramina are patent. [facility] Cristobal Coreas MD - 08/16/2023 Patient Name: NICK HERNÁNDEZ : 1960 Exam Date/Time: 08/16/2023 07:54 Procedure: MR CERVICAL SPINE WO CONTRAST Ordering Provider: LOJA LISA Reason For Exam: m79.601 Examination: MRI cervical spine Indication: m79.601 Technique: Multiplanar multi-sequence MRI images of the cervical spine were obtained. Findings: Grade 1 anterior listhesis is present at C2/C3 and C3/C4. Otherwise, the cervical vertebral bodies are in gross anatomic alignment. There is no acute fracture. There is no focal marrow replacing lesion. Mild disc space loss is present at C3/C4. The cervical cord is grossly of normal caliber without signal abnormality. There is no cerebellar tonsillar ectopia. The paraspinal musculature is grossly unremarkable. Central canal narrowing detailed below is secondary posterior disc bulging and disc osteophyte complexes, unless otherwise specified. Foraminal narrowing is secondary to disc osteophyte complex, uncovertebral hypertrophy or degenerative facets, unless otherwise specified. At the C2/C3 level, grade 1 anterior listhesis is present. Mild right and no significant left-sided foraminal narrowing is noted. The central canal is patent. At the C3/C4 level, grade 1 anterior listhesis is present. There is mild diffuse posterior disc bulging. Small osteophytes project into the left neural foramen. Moderate left and mild right-sided foraminal narrowing is noted. There is mild central canal stenosis. At the C4/C5 level, minimal posterior disc bulging is present. The central canal is patent. Minimal left and no significant right-sided foraminal narrowing is present. At the C5/C6 level, the central canal and foramina are patent. At the C6/C7 level, mild posterior disc bulging is present with patent central canal and foramina. At the C7/T1 level, the central canal and foramina are patent. IMPRESSION: Impression: Grade 1 anterior listhesis at C2/C3 and C3/C4, with mild central canal stenosis. Report Dictated on Electronically Signed By: Cristobal Coreas MD Electronically Signed Date/Time: 08/16/2023 3:19 PM EDT [facility] Radiology Study observation (narrative) [facility] MR Cervical spine WO contras tOrdered By: Cristobal Coreas on 08-16-2023 [facility] Work Phone: Spirometryon 07-04-2023 Inpatient, Attending PhysicianMD - 08/10/2023 [facility] Spirometryon 05-31-2023 Inpatient, Attending PhysicianMD - 08/10/2023 [facility] SpirometryOrdered By: Attend ing Inpatient on 05-31-2023 [facility] Work Phone: Laboratory - Chemistry and C hemistry - challengeon 05-21-2023 Glucose [Mass/Vol] 134 mg/dL High 70 - 99 mg/dL [facility] Anion gap [Moles/Vol] 18 mmol/L High 7 - 17 mmol/L [facility] Chloride [Moles/Vol] 106 mmol/L 98 - 10 8 mmol/L [facility] CO2 [Moles/Vol] 21 mmol/L 21 - 31 mmol/L [facility] Creatinine [Mass/Vol] 1.03 mg/dL 0.70 - 1.30 mg/dL [facility] GFR/1.73 sq M.predicted CKD-EPI (S/P/Bld) [Vol rate/Area] 83 - PINF [facility] Comment on above: Reported eGFR is bas ed on the CKD-EPI 2020 equation using creatinine, age, and sex. Glucose [Mass/Vol] 104 mg/dL High 70 - 99 mg/dL [facility] Osmolality Calc [Osmolality] 296 [facility] Phosphate [Mass/Vol] 3.8 mg/dL 2.2 - 4 .6 mg/dL [facility] Potassium [Moles/Vol] 3.8 mmol/L 3.5 - 5.0 mmol/L [facility] Sodium [Moles/Vol] 141 mmol/L 135 - 145 mmol/L [facility] Urea nitrogen [Mass/Vol] 16 mg/dL 7 - 25 mg/dL [facility] Urea nitrogen/Creatinine [Mass ratio] 16 mg/mg [facility] Magnesium [Mass/Vol] 1.8 mg/dL 1.6 - 2 .6 mg/dL [facility] Laboratory - Hematology and Cell countson 05-21-2023 Erythrocyte distribution width (RBC) [Ratio] 14.2 % 10.9 - 14.3 % [facility] Hematocrit (Bld) [Volume fraction] 41.0 % 39.6 - 48.8 % [facility] Hemoglobin (Bld) [Mass/Vol] 13.1 g/dL Low 13.4 - 16.8 g/dL [facility] MCH (RBC) [Entitic mass] 28.8 pg 26. 1 - 33.3 pg [facility] MCHC (RBC) [Mass/Vol] 32.0 g/dL 31.9 - 36.5 g/dL [facility] MCV (RBC) [Entitic vol] 90.1 fL 79.0 - 94.5 fL [facility] Platelet mean volume (Bld) [Entitic vol] 10.5 fL 8.7 - 12.3 fL [facility] Platelets (Bld) [#/Vol] 190 10*3/uL 146 - 337 K/uL [facility] RBC (Bld) [#/Vol] 4.55 10*6/uL [facility] WBC (Bld) [#/Vol] 5.77 10*3/uL 3.73 - 10.10 K/uL [facility] No Panel Informationon 05-21 Interpretation and review of laboratory results Abnormal [facility] POC Sample Type CAPBL [facility] Test performed at address of the patient encounter. [facility] Interpretation and review of laboratory results Abnormal [facility] Interpretation and review of laboratory results Normal [facility] Interpretation and review of laboratory results Abnormal [facility] TACROLIMUS LEVEL, TROUGH (CT E DRUG LEVEL)Ordered By: Marvin Lehman on 05-21-2023 Interpretation and review of laboratory results Normal [facility] Tacrolimus (Bld) [Mass/Vol] 4.7 ng/mL [facility] Method performed is a chemiluminescent microparticle immunoasssay on the [employer] Double i2000. The range is based on experience at [facility] and users should be aware that target concentrations vary widely depending on concomitant therapy, time post-transplant, and desired degree of immunosuppression. [facility] Laboratory - Chemistry and C hemistry - challengeon 05-20-2023 Glucose [Mass/Vol] 118 mg/dL High 70 - 99 mg/dL [facility] Glucose [Mass/Vol] 157 mg/dL High 70 - 99 mg/dL [facility] Thiamine (Bld) [Moles/Vol] 121 nmol/L 70 - 180 nmol/L [facility] Comment on above: ADDITIONAL INFORMATION This test was developed and its performance characteristics determined by [facility] in a manner consistent with CLIA requirements. This test has not been cleared or approved by the U.S. Food and Drug Administration. Test Performed by: [facility] [address] [id number] [place] [address] Personnel Records Clerk: Chris Black M.D. Ph.D.; CLIA# [id number] Glucose [Mass/Vol] 129 mg/dL High 70 - 99 mg/dL [facility] Methylmalonate [Moles/Vol] 0.05 nmol/mL NINF - 0.40 nmol/mL [facility] Comment on above: ADDITIONAL INFORMATION This test was developed and its performance characteristics determined by [facility] in a manner consistent with CLIA requirements. This test has not been cleared or approved by the U.S. Food and Drug Administration. Test Performed by: [facility] [place] [address] Personnel Records Clerk: Chris Black M.D. Ph.D.; CLIA# [id number] Glucose [Mass/Vol] 116 mg/dL High 70 - 99 mg/dL [facility] Glucose [Mass/Vol] 114 mg/dL High 70 - 99 mg/dL [facility] Anion gap [Moles/Vol] 14 mmol/L 7 - 17 mmol/L [facility] Chloride [Moles/Vol] 108 mmol/L 98 - 10 8 mmol/L [facility] CO2 [Moles/Vol] 24 mmol/L 21 - 31 mmol/L [facility] Creatinine [Mass/Vol] 0.80 mg/dL 0.70 - 1.30 mg/dL [facility] GFR/1.73 sq M.predicted CKD-EPI (S/P/Bld) [Vol rate/Area] - [facility] Comment on above: Reported eGFR is bas ed on the CKD-EPI 2020 equation using creatinine, age, and sex. Glucose [Mass/Vol] 99 mg/dL 70 - 99 mg/dL [facility]c [facility]olality] [facility] Phosphate [Mass/Vol] 3.3 mg/dL 2.2 - 4 .6 mg/dL [facility] Potassium [Moles/Vol] 4.2 mmol/L 3.5 - 5.0 mmol/L [facility] Sodium [Moles/Vol] 142 mmol/L 135 - 145 mmol/L [facility] Urea nitrogen [Mass/Vol] 11 mg/dL 7 - 25 mg/dL [facility] Urea nitrogen/Creatinine [Mass ratio] 14 mg/mg [facility] Magnesium [Mass/Vol] 2.3 mg/dL 1.6 - 2 .6 mg/dL [facility] Laboratory - Drug toxicology on 05-20-2023 Tacrolimus (Bld) [Mass/Vol] 4.2 ng/mL [facility] Laboratory - Hematology and Cell countson 05-20-2023 Erythrocyte distribution width (RBC) [Ratio] 14.5 % High 10.9 - 14.3 % [facility] Hematocrit (Bld) [Volume fraction] 41.8 % 39.6 - 48.8 % [facility] Hemoglobin (Bld) [Mass/Vol] 13.3 g/dL Low 13.4 - 16.8 g/dL [facility] MCH (RBC) [Entitic mass] 29.0 pg 26. 1 - 33.3 pg [facility] MCHC (RBC) [Mass/Vol] 31.8 g/dL Low 31.9 - 36.5 g/dL [facility] MCV (RBC) [Entitic vol] 91.3 fL 79.0 - 94.5 fL [facility] Platelet mean volume (Bld) [Entitic vol] 10.5 fL 8.7 - 12.3 fL [facility] Platelets (Bld) [#/Vol] 193 10*3/uL 146 - 337 K/uL [facility] RBC (Bld) [#/Vol] 4.58 10*6/uL [facility] WBC (Bld) [#/Vol] 6.14 10*3/uL 3.73 - 10.10 K/uL [facility] No Panel Informationon 05-20 Interpretation and review of laboratory results Abnormal [facility] Test performed at address of the patient encounter. [facility] Interpretation and review of laboratory results Abnormal [facility]OC [facility] Test performed at address of the patient encounter. [facility] Interpretation and review of laboratory results Abnormal [facility] POC Sample Type CAPBL [facility] Test performed at address of the patient encounter. [facility] Interpretation and review of laboratory results Normal [facility] Method performed is a chemiluminescent microparticle immunoasssay on the [employer] Double i2000. The range is based on experience at [facility] and users should be aware that target concentrations vary widely depending on concomitant therapy, time post-transplant, and desired degree of immunosuppression. [facility] Interpretation and review of laboratory results Abnormal [facility] POC Sample Type CAPBL [facility] Test performed at address of the patient encounter. [facility] Interpretation and review of laboratory results Abnormal [facility]OC [facility] Test performed at address of the patient encounter. [facility] Interpretation and review of laboratory results Normal [facility] Interpretation and review of laboratory results Abnormal [facility] Laboratory - Chemistry and C hemistry - challengeon 05-19-2023 Glucose [Mass/Vol] 123 mg/dL High 70 - 99 mg/dL [facility] Glucose [Mass/Vol] 137 mg/dL High 70 - 99 mg/dL [facility] Glucose [Mass/Vol] 117 mg/dL High 70 - 99 mg/dL [facility] Glucose [Mass/Vol] 139 mg/dL High 70 - 99 mg/dL [facility] Anion gap [Moles/Vol] 16 mmol/L 7 - 17 mmol/L [facility] Chloride [Moles/Vol] 110 mmol/L High 98 - 10 8 mmol/L [facility] CO2 [Moles/Vol] 21 mmol/L 21 - 31 mmol/L [facility] Creatinine [Mass/Vol] 0.84 mg/dL 0.70 - 1.30 mg/dL [facility] GFR/1.73 sq M.predicted CKD-EPI (S/P/Bld) [Vol rate/Area] - PINF [facility] Comment on above: Reported eGFR is bas ed on the CKD-EPI 2020 equation using creatinine, age, and sex. Glucose [Mass/Vol] 122 mg/dL High 70 - 99 mg/dL [facility] Magnesium [Mass/Vol] 1.9 mg/dL 1.6 - 2 .6 mg/dL [facility] Osmolality Calc [Osmolality] [facility] Phosphate [Mass/Vol] 2.9 mg/dL 2.2 - 4 .6 mg/dL [facility] Potassium [Moles/Vol] 3.5 mmol/L 3.5 - 5.0 mmol/L [facility] Sodium [Moles/Vol] 143 mmol/L 135 - 145 mmol/L [facility] Urea nitrogen [Mass/Vol] 11 mg/dL 7 - 25 mg/dL [facility] Urea nitrogen/Creatinine [Mass ratio] 13 mg/mg [facility] Laboratory - Drug toxicology on 05-19-2023 Arsenic (Bld) [Mass/Vol] <1 POLINA F - 13 ng/mL [facility] Comment on above: ADDITIONAL INFORMATION This test was developed and its performance characteristics determined by [facility] in a manner consistent with CLIA requirements. This test has not been cleared or approved by the U.S. Food and Drug Administration. Cadmium (Bld) [Mass/Vol] 0.9 ng/mL POLINA F - 5.0 ng/mL [facility] Comment on above: ADDITIONAL INFORMATION This test was developed and its performance characteristics determined by [facility] in a manner consistent with CLIA requirements. This test has not been cleared or approved by the U.S. Food and Drug Administration. Lead (BldV) [Mass/Vol] <1.0 NINF [facility] Comment on above: ADDITIONAL INFORMATION Testing performed by Inductively Coupled Plasma-Mass Spectrometry (ICP-MS). This test was developed and its performance characteristics determined by [facility] in a manner consistent with CLIA requirements. This test has not been cleared or approved by the U.S. Food and Drug Administration. Mercury (Bld) [Mass/Vol] <1 POLINA F - 10 ng/mL [facility] Comment on above: ADDITIONAL INFORMATION This test was developed and its performance characteristics determined by [facility] in a manner consistent with CLIA requirements. This test has not been cleared or approved by the U.S. Food and Drug Administration. Laboratory - Drug toxicology Ordered By: Riya Barker on 05-19-2023 Tacrolimus (Bld) [Mass/Vol] 2.7 ng/mL Low [facility] Laboratory - Hematology and Cell countson 05-19-2023 Erythrocyte distribution width (RBC) [Ratio] 14.7 % High 10.9 - 14.3 % [facility] Hematocrit (Bld) [Volume fraction] 38.6 % Low 39.6 - 48.8 % [facility] Hemoglobin (Bld) [Mass/Vol] 12.7 g/dL Low 13.4 - 16.8 g/dL [facility] MCH (RBC) [Entitic mass] 29.7 pg 26. 1 - 33.3 pg [facility] MCHC (RBC) [Mass/Vol] 32.9 g/dL 31.9 - 36.5 g/dL [facility] MCV (RBC) [Entitic vol] 90.2 fL 79.0 - 94.5 fL [facility] Platelet mean volume (Bld) [Entitic vol] 10.8 fL 8.7 - 12.3 fL [facility] Platelets (Bld) [#/Vol] 186 10*3/uL 146 - 337 K/uL [facility] RBC (Bld) [#/Vol] 4.28 10*6/uL Low [facility] WBC (Bld) [#/Vol] 8.89 10*3/uL 3.73 - 10.10 K/uL [facility] Laboratory - Specimen inform ationon 05-19-2023 Specimen source Nom (Unsp spec) Venous [facility] No Panel Informationon 05-19 Interpretation and review of laboratory results Abnormal [facility] POC Sample Type CAPBL [facility] Test performed at address of the patient encounter. [facility] Carlyle Dhaliwal MD - 05/19/2023 7:01 PM EDT Long-Term EEG Procedure Report: Start Time: 05/17/23: 01:42 End Time: 05/19/23: 08:31 History: 63 year old gentleman with a past medical history of bilateral lung transplant currently immunosuppressed with Tacrolimus, Mycophenolate, Prednisone whom neurology is consulted on due to altered mental status of unclear etiology. Indication: To evaluate for possible seizures. Technical Description: This is a 21-channel digital EEG recording with time-locked video and single-channel electrocardiogram. Electrodes are placed according to the 10 to 20 International System. The patient was monitored continuously by EEG technicians with EEG reviewed intermittently and annotations made to the EEG record every two hours. Portions of this record are reviewed using bandpass filters of 1 to 70 Hz and sensitivity of 7mV/mm. EEG Findings Background: There is no clear PDR recorded from the onset of the study. The background is approximately symmetric, medium amplitude 6-7Hz theta activity mixed with 2-3Hz polymorphic delta activity. There are intermittent higher amplitude GPDs. Sleep and wake differentiation is recorded and NREM sleep is recorded with symmetric VSTs and sleep spindles. 05/18-05/19: There is improvement in the background with a 7-8Hz PDR that is symmetric and reactive to eye opening. The anterior hemispheric activity is also symmetric, medium to low amplitude alpha mixed with excessive theta Focal Asymmetry: no Reactivity: not reactive Rhythmic or Periodic Patterns: Intermittent GPDs, not sustained, limited to wake and periods of stimulation Sporadic ED's: no Brief Rhythmic Discharges: no Electrographic seizure: no Hyperventilation: no Photic stimulation: no Other Clinical Events: none Impression: This is an abnormal 2 DayEEG due to the presence of moderate to severe slowing at the beginning of of the study which improved to mild diffuse slowing indicative of a mild diffuse encephalopathy by the end of the study. There were intermittent GPDs at the onset which resolved by the end of the study. No clear localized features, clinical events or electrographic seizures recorded, clinical correlation recommended. Carlyle Dhaliwal MD [employer], Department of Neurology, Epilepsy Section [facility] Address [address] [facility] Attending physician name [facility] PHYSICIANS [facility] EMPLOYER UNKNOWN [facility] Ethnicity [id number] SEE COMMENTS [facility] Comment on above: RESULT: NOT OR GUARDIAN FIRST NAME SELF [facility] GUARDIAN LAST NAME SELF [facility] [address]ESS [address] [facility] HEALTH CARE PROVIDER ZIP CODE [address] [facility] Patient phone number [phone] [facility] Phone number Facility [phone] [facility] Comment on above: Test Performed by: [place] [address] Personnel Records Clerk: Chris Black M.D. Ph.D.; CLIA# [id number] Postal code [Location] [address] [facility] Provider [facility] Provider [facility] Race WHITE [facility] State of residence [facility] Interpretation and review of laboratory results Abnormal [facility] POC Sample Type CAPBL [facility] Test performed at address of the patient encounter. [facility] Interpretation and review of laboratory results Abnormal [facility] Interpretation and review of laboratory results Normal [facility] Interpretation and review of laboratory results Abnormal [facility] Radiology Study observation (narrative) [facility] No Panel InformationOrdered By: Riya Barker on 05-19-2023 Interpretation and review of laboratory results Abnormal [facility] Method performed is a chemiluminescent microparticle immunoasssay on the [employer] Double i2000. The range is based on experience at [facility] and users should be aware that target concentrations vary widely depending on concomitant therapy, time post-transplant, and desired degree of immunosuppression. [facility] Survey instrumentson 023 Attending physician phone number Provider [phone] [facility] - Chemistry and C hemistry - challengeon 05-18-2023 Phosphate [Mass/Vol] 2.2 mg/dL 2.2 - 4 .6 mg/dL [facility] Comment on above: Slightly hemolyzed Glucose [Mass/Vol] 120 mg/dL High 70 - 99 mg/dL [facility] Glucose [Mass/Vol] 157 mg/dL High 70 - 99 mg/dL [facility] Anion gap [Moles/Vol] 13 mmol/L 7 - 17 mmol/L [facility] Chloride [Moles/Vol] 109 mmol/L High 98 - 10 8 mmol/L [facility] CO2 [Moles/Vol] 22 mmol/L 21 - 31 mmol/L [facility] Creatinine [Mass/Vol] 0.63 mg/dL Low 0.70 - 1.30 mg/dL [facility] GFR/1.73 sq M.predicted CKD-EPI (S/P/Bld) [Vol rate/Area] - PINF [facility] Comment on above: Reported eGFR is bas ed on the CKD-EPI 2020 equation using creatinine, age, and sex. Glucose [Mass/Vol] 149 mg/dL High 70 - 99 mg/dL [facility] Magnesium [Mass/Vol] 2.3 mg/dL 1.6 - 2 .6 mg/dL [facility] Osmolality Calc [Osmolality] 295 [facility] Phosphate [Mass/Vol] 1.5 mg/dL Low 2.2 - 4 .6 mg/dL [facility] Potassium [Moles/Vol] 3.8 mmol/L 3.5 - 5.0 mmol/L [facility] Sodium [Moles/Vol] 140 mmol/L 135 - 145 mmol/L [facility] Urea nitrogen [Mass/Vol] 10 mg/dL 7 - 25 mg/dL [facility] Urea nitrogen/Creatinine [Mass ratio] 16 mg/mg [facility] Laboratory - Hematology and Cell countson 05-18-2023 Erythrocyte distribution width (RBC) [Ratio] 14.1 % 10.9 - 14.3 % [facility] Hematocrit (Bld) [Volume fraction] 39.4 % Low 39.6 - 48.8 % [facility] Hemoglobin (Bld) [Mass/Vol] 12.7 g/dL Low 13.4 - 16.8 g/dL [facility] MCH (RBC) [Entitic mass] 29.1 pg 26. 1 - 33.3 pg [facility] MCHC (RBC) [Mass/Vol] 32.2 g/dL 31.9 - 36.5 g/dL [facility] MCV (RBC) [Entitic vol] 90.2 fL 79.0 - 94.5 fL [facility] Platelet mean volume (Bld) [Entitic vol] 11.0 fL 8.7 - 12.3 fL [facility] Platelets (Bld) [#/Vol] 158 10*3/uL 146 - 337 K/uL [facility] RBC (Bld) [#/Vol] 4.37 10*6/uL Low [facility] WBC (Bld) [#/Vol] 8.57 10*3/uL 3.73 - 10.10 K/uL [facility] Laboratory - Microbiology an d Antimicrobial susceptibilityon 05-18-2023 B. burgdorferi IgM IA Qn (S) Negative Negative [facility] No Panel Informationon 05-18 Interpretation and review of laboratory results Normal [facility] Interpretation and review of laboratory results [facility] Interpretation and review of laboratory results Abnormal [facility] POC Sample Type [facility] Test performed at address of the patient encounter. [facility] Interpretation and review of laboratory results Abnormal [facility] POC Sample [facility] Test performed at address of the patient encounter. [facility] Interpretation and review of laboratory results Abnormal [facility] Interpretation and review of laboratory results Normal [facility] Interpretation and review of laboratory results Abnormal [facility] CT Head WO contraston 2022 IMPRESSION: No acute intracranial findings. Fluid levels in the paranasal sinuses. Correlate for sinusitis. OLOGY EXAM: CT HEAD WITHOU T CONTRAST, 05/17/2023 1:54 AM COMPARISON: None. CLINICAL INDICATIONS: 63 years Male Mental status change, unknown cause; RELEVANT CLINICAL HISTORY: TECHNIQUE: A series of transaxial computerized tomographic images are obtained from base of skull to vertex without intravenous contrast. Axial whole-head and thin section posterior fossa slices are provided. Reformats: Sagittal and coronal. FINDINGS: Hauser-white matter differentiation is preserved. No acute large territory infarction is seen. No acute intracranial hemorrhage is seen. No significant mass effect or midline shift. Ventricles are normal in size and configuration for patient age. Skull appears intact. Visualized orbits appear normal. Small fluid level in the right maxillary sinus. Changes of prior left-sided maxillary antrectomies. Small fluid level is also noted in the left sphenoid sinus. RADIOLOGY Ximena Bernard MBBS - 05/17/2023 EXAM: CT HEAD WITHOUT CONTRAST, 05/17/2023 1:54 AM COMPARISON: None. CLINICAL INDICATIONS: 63 years Male Mental status change, unknown cause; RELEVANT CLINICAL HISTORY: TECHNIQUE: A series of transaxial computerized tomographic images are obtained from base of skull to vertex without intravenous contrast. Axial whole-head and thin section posterior fossa slices are provided. Reformats: Sagittal and coronal. FINDINGS: Hauser-white matter differentiation is preserved. No acute large territory infarction is seen. No acute intracranial hemorrhage is seen. No significant mass effect or midline shift. Ventricles are normal in size and configuration for patient age. Skull appears intact. Visualized orbits appear normal. Small fluid level in the right maxillary sinus. Changes of prior left-sided maxillary antrectomies. Small fluid level is also noted in the left sphenoid sinus. IMPRESSION IMPRESSION: No acute intracranial findings. Fluid levels in the paranasal sinuses. Correlate for sinusitis. [facility] Radiology Study observation (narrative) [facility] CT Head WO contrastOrdered B y: Ximena Bernard on 05-17-2023 [facility] Work Phone: HIV 1+2 Ab+HIV1 p24 Ag IA Ql Ordered By: Brandi Garcia on 05-17-2023 Interpretation and review of laboratory results Normal [facility] Laboratory - Chemistry and C hemistry - challengeon 05-17-2023 Glucose [Mass/Vol] 158 mg/dL High 70 - 99 mg/dL [facility] Carboxyhemoglobin (Bld) [Mass fraction] 1.3 % NINF - 1.5 % [facility] Methemoglobin (Bld) [Mass fraction] 0.2 % NINF - 1.5 % [facility] Anion gap [Moles/Vol] 14 mmol/L 7 - 17 mmol/L [facility] Chloride [Moles/Vol] 110 mmol/L High 98 - 10 8 mmol/L [facility] CO2 [Moles/Vol] 19 mmol/L Low 21 - 31 mmol/L [facility] Creatinine [Mass/Vol] 0.76 mg/dL 0.70 - 1.30 mg/dL [facility] GFR/1.73 sq M.predicted CKD-EPI (S/P/Bld) [Vol rate/Area] - PINF [facility] Comment on above: Reported eGFR is bas ed on the CKD-EPI 2020 equation using creatinine, age, and sex. Glucose [Mass/Vol] 140 mg/dL High 70 - 99 mg/dL [facility] Magnesium [Mass/Vol] 3.1 mg/dL High 1.6 - 2 .6 mg/dL [facility] Osmolality Calc [Osmolality] 292 [facility] Potassium [Moles/Vol] 4.4 mmol/L 3.5 - 5.0 mmol/L [facility] Sodium [Moles/Vol] 139 mmol/L 135 - 145 mmol/L [facility] Urea nitrogen [Mass/Vol] 7 mg/dL 7 - 25 mg/dL [facility] Urea nitrogen/Creatinine [Mass ratio] 9 mg/mg [facility] CK [Catalytic activity/Vol] 72 U/L 30 - 220 U/L [facility] Triglyceride [Mass/Vol] 350 mg/dL High NINF - 150 mg/dL [facility] Comment on above: [<150 mg/dL: Desirab le] [150-199 mg/dL: Borderline] [200-499 mg/dL: High] [>500 mg/dL: Very High] Glucose [Mass/Vol] 132 mg/dL High 70 - 99 mg/dL [facility] Laboratory - Chemistry and C hemistry - challengeOrdered By: Tristan Wan on 05-17-2023 Folate [Mass/Vol] 30.85 ng/mL 5.38 - PIN F ng/mL [facility] Laboratory - Hematology and Cell countson 05-17-2023 Hemoglobin (Bld) [Mass/Vol] 12.5 g/dL Low 13.4 - 16.8 g/dL [facility] Erythrocyte distribution width (RBC) [Ratio] 14.2 % 10.9 - 14.3 % [facility] Hematocrit (Bld) [Volume fraction] 38.0 % Low 39.6 - 48.8 % [facility] Hemoglobin (Bld) [Mass/Vol] 12.3 g/dL Low 13.4 - 16.8 g/dL [facility] MCH (RBC) [Entitic mass] 29.4 pg 26. 1 - 33.3 pg [facility] MCHC (RBC) [Mass/Vol] 32.4 g/dL 31.9 - 36.5 g/dL [facility] MCV (RBC) [Entitic vol] 90.7 fL 79.0 - 94.5 fL [facility] Platelet mean volume (Bld) [Entitic vol] 10.3 fL 8.7 - 12.3 fL [facility] Platelets (Bld) [#/Vol] 158 10*3/uL 146 - 337 K/uL [facility] RBC (Bld) [#/Vol] 4.19 10*6/uL Low [facility] WBC (Bld) [#/Vol] 5.53 10*3/uL 3.73 - 10.10 K/uL [facility] Platelet mean volume (Bld) [Entitic vol] 10.9 fL 8.7 - 12.3 fL [facility] Platelets (Bld) [#/Vol] 169 10*3/uL 146 - 337 K/uL [facility] Laboratory - Microbiology an d Antimicrobial susceptibilityOrdered By: Indu Sky on 05-17-2023 Cryptococcus sp Ag Ql (S) Negative Negative [facility] Laboratory - Microbiology an d Antimicrobial susceptibilityOrdered By: Brandi Garcia on 05-17-2023 HIV 1+2 Ab+HIV1 p24 Ag IA Ql Non-Reactive Non Reactive [facility] No Panel InformationOrdered By: Unassigned Pacs on 05-17-2023 [facility] Work Phone: No Panel InformationOrdered By: Indu Sky on 05-17-2023 Interpretation and review of laboratory results Normal [facility] No Panel InformationOrdered By: Shea Patel on 05-17-2023 Danis auris Screen by PCR Not detected Not Detected [facility] Interpretation and review of laboratory results Normal [facility] This test was performed using a real-time PCR assay. This test was developed, and its performance characteristics determined by [facility]. It has not been cleared or approved by the FDA. The laboratory is regulated under CLIA as qualified to perform high-complexity testing. This test is used for clinical purposes. It should not be regarded as investigational or for research. [facility] No Panel Informationon 05-17 Interpretation and review of laboratory results Abnormal [facility] POC Sample Type CAPBL [facility] Test performed at address of the patient encounter. [facility] Interpretation and review of laboratory results Abnormal [facility] Oxyhemoglobin 80 % Low 94 - 98 % [facility] Sample type unknown. Arterial, Venous, or Mixed Venous sample type not specified. [facility] IMPRESSION: Nonvisualization of the basilar artery and the distal vertebral arteries which could be related to high-grade stenosis. Prominent bilateral posterior communicating arteries likely supplying the posterior circulation. OLOGY EXAM: CT ANGIO BRAIN/NECK, 05/17/2023 01:55 AM COMPARISON: No previous study is available for comparison. CLINICAL INDICATIONS: 63 years Male acutely obtunded r/o basilar; RELEVANT CLINICAL HISTORY: TECHNIQUE: A series of transaxial multislice computerized tomographic images are obtained with helical technique from top of aortic arch to vertex following bolus intravenous administration of nonionic contrast. Axial thin section source images, as well as sagittal and coronal thin section reformats, were provided at the scanner. Additional multiplanar and 3D reconstructions were provided. CONTRAST: iohexol (OMNIPAQUE) 350 MG/ML injection 1-171 mL; Route of Administration: Intravenous; Dose: 79 mL. FINDINGS: CT ANGIOGRAM NECK: AORTIC ARCH: Conventional anatomic origin of the great vessels. No significant stenosis. RIGHT CAROTID ARTERY: Common carotid artery is patent and normal in caliber. Internal carotid artery origin at the bifurcation is patent and normal in caliber. More distal cervical segments of the internal carotid artery are patent and normal in caliber. LEFT CAROTID ARTERY: Common carotid artery is patent and normal in caliber. Internal carotid artery origin at the bifurcation is patent and normal in caliber. More distal cervical segments of the internal carotid artery are patent and normal in caliber. RIGHT VERTEBRAL ARTERY: Origin is patent. More distal cervical segments are patent and normal in caliber. LEFT VERTEBRAL ARTERY: Origin is patent. More distal cervical segments are patent and normal in caliber. OTHER: No dissection or pseudoaneurysm. CT ANGIOGRAM HEAD: INTERNAL CAROTID ARTERIES: Patent and normal in caliber. ANTERIOR CEREBRAL ARTERIES: Patent and normal in caliber. MIDDLE CEREBRAL ARTERIES: Patent and normal in caliber. POSTERIOR CEREBRAL ARTERIES: Patent and normal in caliber. VERTEBRAL ARTERIES: Patent and normal in caliber. BASILAR ARTERY: Nonvisualization of the basilar artery with prominent bilateral posterior communicating arteries. ADDITIONAL FINDINGS: Endotracheal tube and orogastric tube is noted. Fluid in the paranasal sinuses likely secondary due to intubated status. RADIOLOGY Marco Antonio, Ximena Richter, YOLANDA - 05/17/2023 EXAM: CT ANGIO BRAIN/NECK, 05/17/2023 01:55 AM COMPARISON: No previous study is available for comparison. CLINICAL INDICATIONS: 63 years Male acutely obtunded r/o basilar; RELEVANT CLINICAL HISTORY: TECHNIQUE: A series of transaxial multislice computerized tomographic images are obtained with helical technique from top of aortic arch to vertex following bolus intravenous administration of nonionic contrast. Axial thin section source images, as well as sagittal and coronal thin section reformats, were provided at the scanner. Additional multiplanar and 3D reconstructions were provided. CONTRAST: iohexol (OMNIPAQUE) 350 MG/ML injection 1-171 mL; Route of Administration: Intravenous; Dose: 79 mL. FINDINGS: CT ANGIOGRAM NECK: AORTIC ARCH: Conventional anatomic origin of the great vessels. No significant stenosis. RIGHT CAROTID ARTERY: Common carotid artery is patent and normal in caliber. Internal carotid artery origin at the bifurcation is patent and normal in caliber. More distal cervical segments of the internal carotid artery are patent and normal in caliber. LEFT CAROTID ARTERY: Common carotid artery is patent and normal in caliber. Internal carotid artery origin at the bifurcation is patent and normal in caliber. More distal cervical segments of the internal carotid artery are patent and normal in caliber. RIGHT VERTEBRAL ARTERY: Origin is patent. More distal cervical segments are patent and normal in caliber. LEFT VERTEBRAL ARTERY: Origin is patent. More distal cervical segments are patent and normal in caliber. OTHER: No dissection or pseudoaneurysm. CT ANGIOGRAM HEAD: INTERNAL CAROTID ARTERIES: Patent and normal in caliber. ANTERIOR CEREBRAL ARTERIES: Patent and normal in caliber. MIDDLE CEREBRAL ARTERIES: Patent and normal in caliber. POSTERIOR CEREBRAL ARTERIES: Patent and normal in caliber. VERTEBRAL ARTERIES: Patent and normal in caliber. BASILAR ARTERY: Nonvisualization of the basilar artery with prominent bilateral posterior communicating arteries. ADDITIONAL FINDINGS: Endotracheal tube and orogastric tube is noted. Fluid in the paranasal sinuses likely secondary due to intubated status. IMPRESSION IMPRESSION: Nonvisualization of the basilar artery and the distal vertebral arteries which could be related to high-grade stenosis. Prominent bilateral posterior communicating arteries likely supplying the posterior circulation. [facility] Interpretation and review of laboratory results Abnormal [facility] Interpretation and review of laboratory results Abnormal [facility] Interpretation and review of laboratory results Abnormal [facility] Interpretation and review of laboratory results Normal [facility] Interpretation and review of laboratory results Normal [facility] Interpretation and review of laboratory results Abnormal [facility] POC Sample Type ARTER [facility] Test performed at address of the patient encounter. [facility] Radiology Study observation (narrative) [facility] No Panel InformationOrdered By: Tristan Wan on 05-17-2023 Interpretation and review of laboratory results Normal [facility] Portable XR Chest Viewson IMPRESSION: No significant change from the previous examination including properly positioned endotracheal tube. OLOGY EXAM: XR CHEST PORTABLE, 05/17/2023 00:47 AM COMPARISON: Compared to prior day. CLINICAL INDICATIONS: verify placement of ETT RELEVANT CLINICAL HISTORY: FINDINGS: (Lateral chest wall is not included in the image. Implanted Devices: Stable Thorax: Stable bibasilar atelectasis more on the right. No new pneumothorax. Stable cardiac silhouette and osseous structures. RADIOLOGY Lulu Mcknight [facility] - 05/17/2023 EXAM: XR CHEST PORTABLE, 05/17/2023 00:47 AM COMPARISON: Compared to prior day. CLINICAL INDICATIONS: verify placement of ETT RELEVANT CLINICAL HISTORY: FINDINGS: (Lateral chest wall is not included in the image. Implanted Devices: Stable Thorax: Stable bibasilar atelectasis more on the right. No new pneumothorax. Stable cardiac silhouette and osseous structures. IMPRESSION IMPRESSION: No significant change from the previous examination including properly positioned endotracheal tube. [facility] IMPRESSION: New bibasilar atelectasis and questionable airspace opacities in the right lung base status post placement of properly positioned endotracheal tube and right IJ CVC and partially visualized NG tube. No pneumothorax. OLOGY EXAM: XR CHEST PORTABLE, 05/16/2023 22:07 PM COMPARISON: 05/09/2023 CLINICAL INDICATIONS: verify placement of ETT RELEVANT CLINICAL HISTORY: FINDINGS: (Adequate technique) Implanted Devices: New placement of endotracheal tube with its tip at mid trachea, NG tube passing to the stomach with its tip outside [id number] and right IJ CVC with its tip at lower SVC. Thorax: Progressive bibasilar atelectasis with questionable right basilar patchy airspace opacities. No pneumothorax. No other change. RADIOLOGY Lulu Mcknight [facility] - 05/17/2023 EXAM: XR CHEST PORTABLE, 05/16/2023 22:07 PM COMPARISON: 05/09/2023 CLINICAL INDICATIONS: verify placement of ETT RELEVANT CLINICAL HISTORY: FINDINGS: (Adequate technique) Implanted Devices: New placement of endotracheal tube with its tip at mid trachea, NG tube passing to the stomach with its tip outside [id number] and right IJ CVC with its tip at lower SVC. Thorax: Progressive bibasilar atelectasis with questionable right basilar patchy airspace opacities. No pneumothorax. No other change. IMPRESSION IMPRESSION: New bibasilar atelectasis and questionable airspace opacities in the right lung base status post placement of properly positioned endotracheal tube and right IJ CVC and partially visualized NG tube. No pneumothorax. [facility] Portable XR Chest ViewsOrder ed By: Lulu Mcknight on 05-17-2023 [facility] Work Phone: T. pallidum Ab Ql (S)on Interpretation and review of laboratory results Normal [facility] T. pallidum IgG Ql (S) Non-Reactive Non Reactive [facility] Vital signson 05-17-2023 Oxygen saturation in Blood 81 % Low 94 - 98 % [facility] CBC W Auto Differential pane l (Bld)Ordered By: Grupo August on 05-16-2023 Basophils (Bld) [#/Vol] 0.0 10*3/uL 0.0 - 0.2 10*3/uL [employer] Basophils/100 WBC (Bld) 0.3 % 0.0 - 2.0 % [facility] [employer] Eosinophils (Bld) [#/Vol] 0.0 10*3/uL 0.0 - 0.5 10*3/uL [employer] Eosinophils/100 WBC (Bld) 0.3 % Low 1.0 - 6.0 % [employer] Erythrocyte distribution width (RBC) [Ratio] 15.5 % High 11.5 - 14.5 % [employer] Hematocrit (Bld) [Volume fraction] 38.2 % Low 40.0 - 52.0 % [employer] Hemoglobin (Bld) [Mass/Vol] 12.1 g/dL Low 13.0 - 18.0 g/dL [employer] Interpretation and review of laboratory results Abnormal [facility] Lymphocytes (Bld) [#/Vol] 1.5 10*3/uL 1.0 - 4.3 10*3/uL [facility] Lymphocytes/100 WBC (Bld) 19.9 % Low 20.0 - 40.0 % [facility] MCH (RBC) [Entitic mass] 29.0 pg 26. 0 - 34.0 pg [facility] MCHC (RBC) [Mass/Vol] 31.7 % Low 32.0 - 36.0 % [facility] MCV (RBC) [Entitic vol] 91.4 fL 80.0 - 98.0 fL [facility] Monocytes (Bld) [#/Vol] 0.7 10*3/uL 0.0 - 0.8 10*3/uL [facility] Monocytes/100 WBC (Bld) 8.8 % 2.0 - 10.0 % [facility] Neutrophils (Bld) [#/Vol] 5.2 10*3/uL 1.8 - 7.0 10*3/uL [facility] Neutrophils/100 WBC (Bld) 70.7 % 40.0 - 80.0 % [facility] Nucleated RBC/100 WBC (Bld) [Ratio] 0.0 % [facility] Platelet mean volume (Bld) [Entitic vol] 8.1 fL 7.4 - 12.4 fL [facility] Platelets (Bld) [#/Vol] 158 10*3/uL 140 - 440 10*3/uL [facility] RBC (Bld) [#/Vol] 4.18 10*6/uL Low 4.40 - 5.9 0 10*6/uL [facility] WBC (Bld) [#/Vol] 7.4 10*3/uL 3.6 - 10.7 10*3/uL [facility] Comprehensive metabolic 1998 panelOrdered By: Goyo Ashley on 05-16-2023 Albumin [Mass/Vol] 3.6 g/dL 3.5 - 5.0 g/dL [facility] ALP [Catalytic activity/Vol] 56 U/L 38 - 126 U/L [facility] ALT [Catalytic activity/Vol] 27 U/L 0 - 49 U/L [facility] Anion gap [Moles/Vol] 5 mmol/L 3 - 13 mmol/L [facility] AST [Catalytic activity/Vol] 30 U/L 15 - 46 U/L [facility] Bilirubin [Mass/Vol] 0.4 mg/dL 0.2 - 1 .3 mg/dL [facility] Calcium [Mass/Vol] 8.3 mg/dL Low 8.4 - 10. 4 mg/dL [facility] Chloride [Moles/Vol] 111 mmol/L High 98 - 10 7 mmol/L [facility] CO2 [Moles/Vol] 21 mmol/L Low 22 - 30 mmol/L [facility] Creatinine [Mass/Vol] 0.99 mg/dL 0.66 - 1.25 mg/dL [facility] GFR/1.73 sq M.predicted MDRD (S/P/Bld) [Vol rate/Area] 86.7 mL/min/{1.73_m2} - PINF [facility] Comment on above: Calculation based on the Chronic Kidney Disease Epidemiology Collaboration (CKD-EPI) equation refit without adjustment for race Glucose [Mass/Vol] 98 mg/dL 70 - 100 mg/dL [facility] Interpretation and review of laboratory results Abnormal [facility] Potassium [Moles/Vol] 3.5 mmol/L 3.5 - 5.1 mmol/L [facility] Protein [Mass/Vol] 5.9 g/dL Low 6.3 - 8.2 g/dL [facility] Sodium [Moles/Vol] 137 mmol/L 135 - 145 mmol/L [facility] Urea nitrogen [Mass/Vol] 16 mg/dL 9 - 20 mg/dL [facility] Cryptococcus sp Ag IA.rapid Ql (CSF)on 05-16-2023 Cryptococcus sp Ag IA Ql (CSF) Not detected Not Detected [facility] Interpretation and review of laboratory results Normal [facility] Positive Cryptococca l antigens will be reflexed to titer. Additional charges apply. Methodology: Enzyme Immunoassay [facility] - Chemistry and C hemistry - challengeon 05-16-2023 Ammonia (P) [Moles/Vol] 32 umol/L 6 - 47 umol/L [facility] Procalcitonin [Mass/Vol] 0.06 ng/mL POLINA F - 0.50 ng/mL [facility] Comment on above: Procalcitonin is an FDA-approved assay to help manage antibiotic treatment in patients with sepsis/septic shock and lower respiratory tract infections. Specifically, trending procalcitonin in these situations can be used to reduce the duration of antibiotics. Please refer to the Procalcitonin Guide on the Antimicrobial Stewardship Webpage for more guidance on how to use and trend procalcitonin in various clinical settings. [email or web address] Two common cutoffs associated with bacterial infections are as follows. Respiratory tract infections: >0.25 ng/mL Sepsis/septic shock: >0.5 ng/mL Procalcitonin should not be used alone as a diagnostic tool, however. All procalcitonin results should be interpreted in association with the patients clinical condition and all laboratory findings. Albumin [Mass/Vol] 3.7 g/dL 3.5 - 5.0 g/dL [facility] ALP [Catalytic activity/Vol] 48 U/L 32 - 126 U/L [facility] ALT [Catalytic activity/Vol] 15 U/L 10 - 52 U/L [facility] Anion gap [Moles/Vol] 15 mmol/L 7 - 17 mmol/L [facility] AST [Catalytic activity/Vol] 19 U/L 10 - 39 U/L [facility] Bilirubin [Mass/Vol] 0.4 mg/dL [facility] 1.5 mg/dL [facility] Bilirubin.direct [Mass/Vol] 0.1 mg/dL NINF - 0.3 mg[facility] Chloride [Moles/Vol] 112 mmol/L High 98 - 10 8 mmol/L [facility] CK [Catalytic activity/Vol] 94 U/L 30 - 220 U/L [facility] CO2 [Moles/Vol] 18 mmol/L Low 21 - 31 mmol/L [facility] Creatinine [Mass/Vol] 0.71 mg/dL 0.70 - 1.30 mg/dL [facility] GFR/1.73 sq M.predicted CKD-EPI (S/P/Bld) [Vol rate/Area] - PINF [facility] Comment on above: Reported eGFR is bas ed on the CKD-EPI 2020 equation using creatinine, age, and sex. Glucose [Mass/Vol] 91 mg/dL 70 - 99 mg/dL [facility] Osmolality Calc [Osmolality] 291 [facility] Potassium [Moles/Vol] 3.7 mmol/L 3.5 - 5.0 mmol/L [facility] Protein [Mass/Vol] 5.8 g/dL Low 6.4 - 8.3 g/dL [facility] Sodium [Moles/Vol] 141 mmol/L 135 - 145 mmol/L [facility] Urea nitrogen [Mass/Vol] 7 mg/dL 7 - 25 mg/dL [facility] Urea nitrogen/Creatinine [Mass ratio] 10 mg/mg [facility] Cobalamin (Vitamin B12) [Mass/Vol] 630 pg/mL 211 - 911 pg/mL [facility] Comment on above: Testing of Methylmal onic Acid and Intrinsic Factor Blocking Antibody are recommended if clinical suspicion for pernicious anemia due to B12 deficiency is high for patients with intermediate B12 levels (211 to 400 pg/mL) to rule out spurious heterophile antibodies. TSH Qn 0.567 m[IU]/L [facility] Natriuretic peptide B (Bld) [Mass/Vol] 50 pg/mL 0 - 100 pg/mL [facility] Magnesium [Mass/Vol] 1.9 mg/dL 1.6 - 2 .6 mg/dL [facility] Phosphate [Mass/Vol] 2.3 mg/dL 2.2 - 4 .6 mg/dL [facility] Troponin I.cardiac High sensitivity method [Mass/Vol] 4 ng/L NINF - 53 ng/L [facility] Glucose [Mass/Vol] 100 mg/dL High 70 - 99 mg/[facility] Glucose [Mass/Vol] 93 mg/dL 70 - 99 mg/dL [facility] Base excess Calc (Bld) [Moles/Vol] -4.6000 mmol/L Low -3.0 - 3.0 mmol/L [facility] CO2 (Bld) [Partial pressure] 38 mm[Hg] [facility] HCO3 (Bld) [Moles/Vol] 21 mmol/L Low 22 - 29 mmol/L [facility] Lactate [Moles/Vol] 0.8 mmol/L 0.5 - 1. 6 mmol/L [facility] Oxygen (Bld) [Partial pressure] 45 mm[Hg] mm Hg [facility] Comment on above: Venous pO2 is not re commended for the evaluation of oxygen status, clinical correlation is recommended. pH (Bld) 7.35 [pH] 7.32 - 7.43 [facility] Glucose (CSF) [Mass/Vol] 62 mg/dL 40 - 70 mg/dL [facility] Protein (CSF) [Mass/Vol] 83.6 mg/dL High 12. 0 - 60.0 mg/dL [facility] Base excess Calc (BldV) [Moles/Vol] -3.3000 mmol/L Low -3.0 - 3.0 mmol/L [facility] CO2 (BldV) [Partial pressure] 40.8 mm[Hg] [facility] CO2 [Moles/Vol] 23.3 mmol/L Low 24.0 - 28.0 mmol/L [facility] HCO3 (Bld) [Moles/Vol] 22.1 mmol/L Low 23.0 - 27.0 mmol/L [facility] Oxygen (BldV) [Partial pressure] 43.0 mm[Hg] [facility] pH (BldV) 7.351 [pH] 7.330 - 7.430 [facility] Magnesium [Mass/Vol] 1.9 mg/dL 1.6 - 2 .3 mg/dL [facility] Laboratory - Chemistry and C hemistry - challengeOrdered By: Allison Waterman on 05-16-2023 Lactate [Moles/Vol] 1.0 mmol/L 0.5 - 1. 6 mmol/L [facility] Laboratory - Chemistry and C hemistry - challengeOrdered By: Luis Armando Pina on 05-16-2023 Calcium.ionized (Bld) [Moles/Vol] 4.53 mg/dL Low 4.60 - 5.30 mg/dL [facility] Laboratory - Chemistry and C hemistry - challengeOrdered By: January Rodriguez on 05-16-2023 Base excess Calc (Bld) [Moles/Vol] -3.9000 mmol/L Low -3.0 - 3.0 mmol/L [facility] CO2 (Bld) [Partial pressure] 38.3 mm[Hg] - PINF [facility] CO2 [Moles/Vol] 22.3 mmol/L Low 23.0 - 27.0 mmol/L [facility] HCO3 (Bld) [Moles/Vol] 21.2 mmol/L 21.0 - 25.0 mmol/L [facility] Oxygen (Bld) [Partial pressure] 48.4 mm[Hg] Critically low [facility] pH (Bld) 7.360 [pH] 7.350 - 7.450 [facility] Laboratory - Coagulationon 0 05-16-2023 aPTT Coag (PPP) [Time] 30.6 s [facility] INR Coag (Bld) [Relative time] 1.1 {INR} 0.9 - 1.1 [facility] PT Coag (PPP) [Time] 14.1 s [facility] Laboratory - Drug toxicology Ordered By: Peter Salazar on 05-16-2023 Amphetamine+Methamphetam ine Screen (U) [Mass/Vol] Negative [facility] Barbiturates Ql (U) Negative [facility] Benzodiazepines Ql (U) Positive Abnormal [facility] Buprenorphine Ql (U) Negative [facility] Cannabinoids Screen Ql (U) Positive Abnormal [facility] Cocaine Ql (U) Negative [facility] fentaNYL Ql (U) Positive Abnormal [facility] Methadone Ql (U) Negative [facility] Opiates Ql (U) Positive Abnormal [facility] oxyCODONE Ql (U) Negative [facility] Laboratory - Drug toxicology Ordered By: Keira Santamaria on 05-16-2023 Tacrolimus (Bld) [Mass/Vol] 3.8 ng/mL Low [facility] Laboratory - Drug toxicology on 05-16-2023 Tacrolimus (Bld) [Mass/Vol] 7.3 ug/L 5.0 - 20.0 ug/L [facility] Laboratory - Drug toxicology Ordered By: Ester Milligan on 05-16-2023 Amphetamines Ql (U) Negative Negative [facility] Benzodiazepines Ql (U) Positive Negative [facility] Cocaine Ql (U) Negative Negative [facility] Ethanol [Mass/Vol] Negative Negative [facility] Methadone Ql (U) [facility] Laboratory - Hematology and Cell countson 05-16-2023 Basophils (Bld) [#/Vol] K/uL 0.00 - 0.09 K/uL [facility] Basophils/100 WBC (Bld) 0.1 % O [facility] Differential cell count method Nom (Bld) Electronic Differential [facility] Eosinophils (Bld) [#/Vol] K/uL 0.00 - 0.48 K/uL [facility] Eosinophils/100 WBC (Bld) 0.4 % [facility] Erythrocyte distribution width (RBC) [Ratio] 14.5 % High 10.9 - 14.3 % [facility] Hematocrit (Bld) [Volume fraction] 38.5 % Low 39.6 - 48.8 % [facility] Hemoglobin (Bld) [Mass/Vol] 12.1 g/dL Low 13.4 - 16.8 g/dL [facility] Immature granulocytes (Bld) [#/Vol] K/uL NINF - 0.07 K/uL [facility] Immature granulocytes/100 WBC (Bld) 0.3 % [facility] Lymphocytes (Bld) [#/Vol] 0.79 10*3/uL Low 0.83 - 3.57 K/uL [facility] Lymphocytes/100 WBC (Bld) 11.7 % [facility] MCH (RBC) [Entitic mass] 28.5 pg 26. 1 - 33.3 pg [facility] MCHC (RBC) [Mass/Vol] 31.4 g/dL Low 31.9 - 36.5 g/dL [facility] MCV (RBC) [Entitic vol] 90.8 fL 79.0 - 94.5 fL [facility] Monocytes (Bld) [#/Vol] 0.52 10*3/uL 0.24 - 0.93 K/uL [facility] Monocytes/100 WBC (Bld) 7.7 % [facility] Neutrophils (Bld) [#/Vol] 5.37 10*3/uL 1.57 - 6.19 K/uL [facility] Nucleated RBC/100 WBC (Bld) [Ratio] 0.0 % [facility] Platelet mean volume (Bld) [Entitic vol] 10.4 fL 8.7 - 12.3 fL [facility] Platelets (Bld) [#/Vol] 152 10*3/uL 146 - 337 K/uL [facility] RBC (Bld) [#/Vol] 4.24 10*6/uL Low [facility] Segmented neutrophils/100 WBC (Bld) 79.8 % [facility] WBC (Bld) [#/Vol] 6.74 10*3/uL 3.73 - 10.10 K/uL [facility] RBC Manual cnt (CSF) [#/Vol] 18 /mm3 [facility] WBC Manual cnt (CSF) [#/Vol] 1 /mm3 NINF - 5 /mm3 [facility] Hemoglobin (Bld) [Mass/Vol] 12.4 g/dL Screen Only [facility] Laboratory - Hematology and Cell countsOrdered By: Ilana Singleton on 05-16-2023 RBC Manual cnt (CSF) [#/Vol] 28 /mm3 [facility] WBC Manual cnt (CSF) [#/Vol] 2 /mm3 NINF - 5 /mm3 [facility] Laboratory - Hematology and Cell countsOrdered By: January Rodriguez on 05-16-2023 Hemoglobin (Bld) [Mass/Vol] 12.5 g/dL Screen Only [facility] Laboratory - Specimen inform ationon 05-16-2023 Specimen source Nom (Unsp spec) Venous [facility] Appearance (CSF) Clear and Colorless [facility] Appearance (Spun CSF) Clear and Colorless [facility] Tube number Nom (CSF) [ID] Tube 4 [facility] Appearance (CSF) Clear and Colorless [facility] Laboratory - Specimen inform ationOrdered By: Ilana Singleton on 05-16-2023 Appearance (CSF) Clear and Colorless [facility] Appearance (Spun CSF) Clear and Colorless [facility] Tube number Nom (CSF) [ID] Tube 1 [facility] MR Brain WO contraston 05-16 1. Diminished cerebr al volume and evidence of chronic white matter small vessel ischemic change without acute intracranial abnormality. 2. Paranasal sinus disease. 3. Small bilateral mastoid effusions. Report Dictated on Electronically Signed By: Eliazar Alexander MD Electronically Signed Date/Time: 05/16/2023 4:39 PM EDT [facility]Y [facility] Patient Name: NICK BANKS : 1960 Exam Date/Time: 05/16/2023 15:10 Procedure: MR BRAIN WO CONTRAST Ordering Provider: RODAS TIFFANY Reason For Exam: Mental status change, unknown cause EXAMINATION: MRI of the brain without contrast. EXAM DATE & TIME: 05/16/2023 3:10 PM EDT INDICATION: Mental status change, unknown cause ADDITIONAL INFORMATION: 63-year-old male with mental status change of unknown cause presents for evaluation COMPARISON: CT head dated 05/15/2023 LIMITATIONS: None TECHNIQUE: Sagittal T1, coronal T2, transaxial T2, FLAIR, gradient echo and diffusion weighted sequences were performed through the brain. FINDINGS: Ventricular system and Extra-axial spaces: Generalized enlargement of the ventricles and sulci is noted without extracerebral collection with mass effect. Cerebral and cerebellar parenchyma: Periventricular foci of increased signal intensity on T2 and FLAIR are identified without mass effect or restricted diffusion, compatible with chronic microvascular ischemic change. No additional focal parenchymal enhancing or nonenhancing lesion is identified throughout the cerebrum or cerebellum. Brainstem: Normal. Sella turcica and pituitary: Normal. Vascular system: Normal signal void is noted within the major intracranial vessels. Paranasal sinuses: Mucosal thickening is present involving the ethmoid, sphenoid and maxillary sinuses. An air-fluid level is present in the right maxillary sinus. Mastoid air cells: There are small bilateral mastoid effusions. Orbits: Normal. [facility] Eliazar Alexander MD - 05/16/2023 [facility] Name: [facility]ERN[facility]NDEZ [facility] 1960 [id number] Exam Date/Time: 05/16/2023 15:10 Procedure: MR BRAIN WO CONTRAST Ordering Provider: RODAS TIFFANY Reason For Exam: Mental status change, unknown cause EXAMINATION: MRI of the brain without contrast. EXAM DATE & TIME: 05/16/2023 3:10 PM EDT INDICATION: Mental status change, unknown cause ADDITIONAL INFORMATION: 63-year-old male with mental status change of unknown cause presents for evaluation COMPARISON: CT head dated 05/15/2023 LIMITATIONS: None TECHNIQUE: Sagittal T1, coronal T2, transaxial T2, FLAIR, gradient echo and diffusion weighted sequences were performed through the brain. FINDINGS: Ventricular system and Extra-axial spaces: Generalized enlargement of the ventricles and sulci is noted without extracerebral collection with mass effect. Cerebral and cerebellar parenchyma: Periventricular foci of increased signal intensity on T2 and FLAIR are identified without mass effect or restricted diffusion, compatible with chronic microvascular ischemic change. No additional focal parenchymal enhancing or nonenhancing lesion is identified throughout the cerebrum or cerebellum. Brainstem: Normal. Sella turcica and pituitary: Normal. Vascular system: Normal signal void is noted within the major intracranial vessels. Paranasal sinuses: Mucosal thickening is present involving the ethmoid, sphenoid and maxillary sinuses. An air-fluid level is present in the right maxillary sinus. Mastoid air cells: There are small bilateral mastoid effusions. Orbits: Normal. IMPRESSION: 1. Diminished cerebral volume and evidence of chronic white matter small vessel ischemic change without acute intracranial abnormality. 2. Paranasal sinus disease. 3. Small bilateral mastoid effusions. Report Dictated on Electronically Signed By: Eliazar Alexander MD Electronically Signed Date/Time: 05/16/2023 4:39 PM EDT [facility] Radiology Study observation (narrative) [facility] Meningitis+Encephalitis path ogens DNA and RNA panel COREY+non-probe (CSF)Ordered By: Cindy Interiano on 05-16-2023 Cryptococcus neoformans/gattii Not detected Not Detected [facility] Cytomegalovirus Not detected Not Detected [facility] Enterovirus Not detected Not Detected [facility] Escherichia coli K1 Not detected Not Detected [facility] Haemophilus influenzae Not detected Not Detected [facility] Herpes simplex virus 1 Not detected Not Detected [facility] Herpes simplex virus 2 Not detected Not Detected [facility] Human herpesvirus 6 Not detected Not Detected [facility] Human parechovirus Not detected Not Detected [facility] Interpretation and review of laboratory results Normal [facility] Listeria monocytogenes Not detected Not Detected [facility] Neisseria meningitidis Not detected Not Detected [facility] S. agalactiae Org specific cx Ql (Vag fld) Not detected Not Detected [facility] Streptococcus pneumoniae Not detected Not Detected [facility] Varicella zoster virus Not detected Not Detected [facility] Methodology: Multipl ex PCR [facility] No Panel InformationOrdered By: Peter Salazar on 05-16-2023 Interpretation and review of laboratory results Abnormal [facility] For medical purposes only. Positive results are unconfirmed unless otherwise noted. [facility] No Panel Informationon 05-16 Interpretation and review of laboratory results Normal [facility] ABO/RH(D) TYPE Positive [facility] Interpretation and review of laboratory results Normal [facility] Interpretation and review of laboratory results Abnormal [facility] Interpretation and review of laboratory results Normal [facility] Interpretation and review of laboratory results Normal [facility] Interpretation and review of laboratory results Normal [facility] Interpretation and review of laboratory results Normal [facility] Interpretation and review of laboratory results Normal [facility] Interpretation and review of laboratory results Normal [facility] Interpretation and review of laboratory results Abnormal [facility] Interpretation and review of laboratory results Abnormal [facility] POC Sample Type VENO [facility] Test performed at address of the patient encounter. [facility] POC Sample Type CAPBL [facility] Test performed [facility] the [facility]. [facility] Interpretation and review of laboratory results Abnormal [facility] and [facility] of laboratory results Abnormal [facility] SUPERNATANT Clear and Colorless [facility] 1. Successful lumbar puncture under fluoroscopy. Approximately 13 ml of clear CSF was withdrawn and sent to the laboratory for analysis. Report Dictated on Electronically Signed By: Hany Dennison MD Electronically Signed Date/Time: 05/16/2023 4:19 PM EDT [facility] Patient Name: NICK BANKS : 1960 Exam Date/Time: 05/16/2023 16:16 Procedure: IR LUMBAR PUNCTURE Ordering Provider: RODAS TIFFANY Reason For Exam: AMS, immunosuppresed EXAMINATION: Lumbar puncture under fluoroscopy. CLINICAL INFORMATION: Altered mental status. Prior to the procedure, the details of the examination were explained to the patient's family. They understand the risks, alternatives, and benefits and wish us to proceed. Informed written consent is obtained and placed in the chart. ANESTHESIA: Local anesthesia is maintained with Lidocaine. FLUOROSCOPY USED: Dose Ka,r = 30.62 mGy, 0.3 minutes, 0 cine run(s), and 3 fluoro spot(s) captured. PROCEDURE: The patient was placed prone on the fluoroscopic table. A site was picked for percutaneous lumbar puncture. This area was prepped and draped in the usual fashion. Under fluoroscopic guidance, a 20 gauge spinal needle was advanced without difficulty into the CSF space posterior to the L4 vertebral body. Subsequently, approximately 13 ml of clear CSF was withdrawn. There were no immediate complications. The patient tolerated the procedure without difficulty and was transferred to the recovery room in stable condition. [facility] Hany Dennison MD - 05/16/2023 Patient Name: NICK HERNÁNDEZ : 1960 Exam Date/Time: 05/16/2023 16:16 Procedure: IR LUMBAR PUNCTURE Ordering Provider: RODAS TIFFANY Reason For Exam: AMS, immunosuppresed EXAMINATION: Lumbar puncture under fluoroscopy. CLINICAL INFORMATION: Altered mental status. Prior to the procedure, the details of the examination were explained to the patient's family. They understand the risks, alternatives, and benefits and wish us to proceed. Informed written consent is obtained and placed in the chart. ANESTHESIA: Local anesthesia is maintained with Lidocaine. FLUOROSCOPY USED: Dose Ka,r = 30.62 mGy, 0.3 minutes, 0 cine run(s), and 3 fluoro spot(s) captured. PROCEDURE: The patient was placed prone on the fluoroscopic table. A site was picked for percutaneous lumbar puncture. This area was prepped and draped in the usual fashion. Under fluoroscopic guidance, a 20 gauge spinal needle was advanced without difficulty into the CSF space posterior to the L4 vertebral body. Subsequently, approximately 13 ml of clear CSF was withdrawn. There were no immediate complications. The patient tolerated the procedure without difficulty and was transferred to the recovery room in stable condition. IMPRESSION: 1. Successful lumbar puncture under fluoroscopy. Approximately 13 ml of clear CSF was withdrawn and sent to the laboratory for analysis. Report Dictated on Electronically Signed By: Hany Dennison MD Electronically Signed Date/Time: 05/16/2023 4:19 PM EDT [facility] Radiology Study observation (narrative) [facility] Interpretation and review of laboratory results Abnormal [facility] Source Of Oxygen Vent [facility] Comment on above: 30% [facility] Interpretation and review of laboratory results Normal [facility] Derek Cordova DO 05/16/2023 2:50 AM Lumbar Puncture Date/Time: 05/16/2023 2:49 AM Performed by: Derek Cordova DO Authorized by: Derek Cordova DO Consent: The indications, risks, benefits, alternatives to the procedure were explained to the patient/surrogate decision maker and their questions answered. Consent was obtained to proceed with the procedure. Timeout: Completed immediately prior to the start of the procedure which included verification of the correct patient, correct site and agreement on the procedure to be done. Indications: Procedure purpose: Diagnostic Indications: altered mental status Anesthetic: Anesthetic: Lidocaine without epinephrine Preparation: Patient was prepped and draped in usual sterile fashion Skin prepped: skin prepped with povidone-iodine Procedure details: Lumbar space: L3-L4 interspace Patient position: L lateral decubitus Number of attempts: 4 Procedure successsful: No Ultrasound guidance: no Post-procedure: Post-procedure: Dressing applied and pressure applied Estimated blood loss: < 5 mL Specify complication(s): No apparent complications Assistants & Supervision: I personally performed the procedure documented as signed by this procedure note Therapeutic Recreation Assistant: Dr. Rodas The attending physician was physically present while the proceduralist performed zuniga/critical components of the procedure. Attending: Dr. Rodas [facility] Derek Cordova DO 05/16/2023 2:04 AM Central Line Insertion Date/Time: 05/16/2023 2:03 AM Performed by: Derek Cordova DO Authorized by: Derek Cordova DO Consent: The indications, risks, benefits, alternatives to the procedure were explained to the patient/surrogate decision maker and their questions answered. Consent was obtained to proceed with the procedure. Timeout: Completed immediately prior to the start of the procedure which included verification of the correct patient, correct site and agreement on the procedure to be done. Indication: Lack of adequate PIV access Anesthetic: Local anesthetic used: lidocaine without epinephrine Procedure Details: Preparation: skin prepped with chlorhexidine Skin prep agent dried: skin prep agent completely dried prior to procedure Sterile barriers: all five maximum sterile barriers used - cap, mask, sterile gown, sterile gloves, and large sterile sheet Hand hygiene: hand hygiene performed prior to central venous catheter insertion Sterile technique: Sterile technique maintained throughout procedure. Central Line Type: central venous catheter Location details: right internal jugular Patient position: Trendelenburg Catheter type: triple lumen Catheter size: 7 Fr Number of attempts: 1 Ultrasound guidance: yes Post-Procedure: Post-procedure: line sutured and antimicrobial dressing applied Description/Findings: dark, non-pulsatile blood return obtained from all lumens Estimated blood loss: < 5 mL Complications: No apparent complications Follow-up chest x-ray: completed, line in appropriate position Assistants & Supervision: I personally performed the procedure documented as signed by this procedure note Railroad Brakeman(s): N/A Therapeutic Recreation Assistant: Dr. Rodas The attending physician was physically present while the proceduralist performed zuniga/critical components of the procedure. Attending: Dr. Rodas [facility] Thelma Arriola DO 05/16/2023 2:00 AM Bronchoscopy Bedside Disposable Date/Time: 05/16/2023 1:57 AM Performed by: Thelma Arriola DO Authorized by: Thelma Arriola DO Consent: The indications, risks, benefits, alternatives to the procedure were explained to the patient/surrogate decision maker and their questions answered. Consent was obtained to proceed with the procedure. Timeout: Completed immediately prior to the start of the procedure which included verification of the correct patient, correct site and agreement on the procedure to be done. Anesthetic: Local anesthetic used: not applicable Sedation: Sedation: no additional sedation needed (sedation for mechanical ventilation) Indications: Indication: pneumonia Procedure Details: Type: diagnostic Completed via: ETT Lung examined: Right Abnormalities: other (see comments) Abnormalities comments: BI with mild narrowing. no purulence noted . anastamosis bilat stable, BAL of RLL Post-procedure: Specimen sent to lab: yes Specimen source: right lower lobe Secretion description: clear Estimated blood loss: none Specify Complication(s): no apparent complications [facility] Lorenzo Pompa MD 05/16/2023 5:26 PM [facility] [address] [place] [address] CONTINUOUS LONG-TERM VIDEO EEG MONITORING REPORT Patient Name: Nick Hernández : 1960 Date of Study: 05/16/2023 Duration Recorded: 13:41:15 EEG#: [id number] CHEESEMAKER: Lydia Issa PROVIDER REQUESTING STUDY: Derek Cordova DO REASON FOR EXAM: Evaluate for seizures DIAGNOSIS TAG: Encephalopathy NOS (ENC-NOS) HISTORY: Nick Hernández is a 63 y.o. male who presents to the emergency department with unresponsiveness. Patient's states he has been not acting his normal self and been more confused past couple days being more angry than he normally is. He has a complicated medical history including bilateral lung transplant at [facility] 4 years ago on chronic immunosuppression and antibiotic therapy, family member/ unsure of the exact medications. He had been unresponsive with snoring respirations in triage response team was called and patient was immediately taken back to resuscitation bay. Patient was being bagged by mask valve ventilated and did become somewhat responsive stating my back hurts between my shoulder blades and I cannot feel my legs. Patient then had seizure activity and unable to gather further history from patient. MEDICATIONS: Current Facility-Administered Medications Medication Dose Route Frequency Provider Last Rate Last Admin acetaminophen (Tylenol) tablet 1,000 mg 1,000 mg Oral q8h Derek Cordova DO Or Acetaminophen (Tylenol) 650 MG/20.3ML solution 1,000 mg 1,000 mg Per G Tube q8h Derek Cordova DO acyclovir (Zovirax) 950 mg in sodium chloride 0.9 % 150 mL IVPB 10 mg/kg IntraVENous q8h Oscar Chan MD Stopped at 05/16/23 0545 azithromycin (Zithromax) tablet 250 mg 250 mg Oral Once per day on Tue Derek Cordova DO chlorhexidine (Peridex) 0.12 % solution 15 mL 15 mL Mouth/Throat BID Oscar Chan MD 15 mL at 05/15/23 210 enoxaparin (Lovenox) syringe 40 mg 40 mg SubCUTAneous Daily Derek Cordova DO fentaNYL (Sublimaze) 1000 mcg in sodium chloride 0.9 % 100 mL 10 mcg/mL infusion 25-200 mcg/hr IntraVENous Continuous Oscar Chan MD Stopped at 05/16/23 0549 gabapentin (Neurontin) capsule 200 mg 200 mg Oral Daily Derek Cordova DO levETIRAcetam (Keppra) 1,000 mg in sodium chloride 0.9 % 100 mL IVPB 1,000 mg IntraVENous BID Kathleen Rodas DO meropenem (Merrem) 2,000 mg in sodium chloride 0.9 % 100 mL IVPB 2,000 mg IntraVENous q8h Derek Cordova DO Stopped at 05/16/23 0055 midazolam (Versed) 50 mg/50mL infusion 1-10 mg/hr IntraVENous Continuous Oscar Chan MD 10 mL/hr at 05/16/23 0525 10 mg/hr at 05/16/23 0525 [Held by provider] mycophenolate (Cellcept) capsule 1,000 mg 1,000 mg Oral BID Derek Kepko, DO ondansetron ODT (Zofran-ODT) disintegrating tablet 4 mg 4 mg Oral q8h PRN Derek Kepko, DO Or ondansetron (Zofran) injection 4 mg 4 mg IntraVENous q6h PRN Derek Kepko, DO pantoprazole (ProtoNix) injection 40 mg 40 mg IntraVENous q AM Derek Kepko, DO polyethylene glycol (PEG) 3350 (Miralax) packet 17 g 17 g Oral Daily PRN Derek Kepko, DO predniSONE (Deltasone) tablet 5 mg 5 mg Oral Daily Derek Kepko, DO propofol (Diprivan) infusion 5-50 mcg/kg/min IntraVENous Continuous Derek Kepko, DO 22.8 mL/hr at 05/16/23 0729 40 mcg/kg/min at 05/16/23 0729 sodium chloride 0.9% (NS) flush 5-40 mL 5-40 mL IntraCATHeter q8h Derek Kepko, DO 10 mL at 05/16/23 0145 sodium chloride 0.9% (NS) flush 5-40 mL 5-40 mL IntraVENous PRN Derek Kepko, DO sulfamethoxazole-trime thoprim (Bactrim DS) 800-160 MG per tablet 1 tablet 1 tablet Oral BID Derek Kepko, DO [Held by provider] tacrolimus (Prograf) capsule 0.5 mg 0.5 mg Oral BID Derek Kepko, DO TECHNICAL ASPECTS: This continuous scalp EEG study with video was carried out at [facility]. Scalp electrodes were positioned in person by an ct mri technologist, following patient education, according to the 10-20 International system of electrode placement and maintained for integrity and quality of the recording. EEG data with video was recorded continuously and digitally stored. The ct mri technologist reviewed all automated detections and manual events and prepared the data for archiving and provider review. Referential and bipolar montages were used for review. TECHNOLOGIST NOTES: No skull or scalp defects were observed. Patient intubated and sedated. This video-EEG monitoring was continuously monitored, 4 patients per technologist. BACKGROUND ACTIVITY: Posterior background activity: No observable posterior dominant rhythm was seen. Beta range: Abundant diffuse waxing and waning beta range activity (15-25 Hz, 10-20 uV) was seen. Sleep: No sleep ar (more content not included)... [facility] P [place] 44 degrees [facility] CT Interval 168 ms [facility] QRS [place] 89 degrees [facility] QRSD Interval 89 ms [facility] QT Interval 379 ms [facility] QTC Interval 436 ms [facility] T Wave [place] -77 degrees [facility] Sinus rhythm Borderline right axis deviation similar to prior Electronically Signed On 05-16-2023 0:06:28 EDT by Audra Cabrera, - 05/16/2023 IMPRESSION: Sinus rhythm Borderline right axis deviation similar to prior Electronically Signed On 05-16-2023 0:06:28 EDT by Audra Chavarria [facility] No Panel InformationOrdered By: Allison Waterman on 05-16-2023 Interpretation and review of laboratory results Normal [facility] No Panel InformationOrdered By: Keira Santamaria on 05-16-2023 Interpretation and review of laboratory results Abnormal [facility] Method performed is a chemiluminescent microparticle immunoasssay on the [employer] i2000. The range is based on experience at [facility] and users should be aware that target concentrations vary widely depending on concomitant therapy, time post-transplant, and desired degree of immunosuppression. [facility] No Panel InformationOrdered By: Luis Armando Gomes on 05-16-2023 Interpretation and review of laboratory results Abnormal [facility] No Panel InformationOrdered By: Ilana Singleton on 05-16-2023 [facility] No Panel InformationOrdered By: Hany Dennison on 05-16-2023 [facility] [employer] Work Phone: No Panel InformationOrdered By: Ester Milligan on 05-16-2023 BARBITURATES Negative Negative [facility] BUPRENORPHINE SCREEN Negative Negative [facility] FENTANYL Positive Negative [facility] OXYCODONE/OXYMORPHONE Negative Negative [facility] PCP Negative Negative [facility] THC Negative Negative [facility] The expected value f or the drugs listed above is Negative. The following drugs or drug groups have been screened for by Immunoassay at the following thresholds: Amphetamine class(1000ng/mL) Barbituates(200ng/mL) Benzodiazepines(200ng/ mL) Cocaine(300ng/mL) Ethanol (50 ng/mL) Methadone(300ng/mL) Opiates(300ng/mL) Oxycodone(100ng/mL) PCP(25ng/mL) Buprenorphine(5ng/mL) THC(50ng/mL) Fentanyl(1ng/mL) Positive results are NOT confirmed by a more specific alternative method unless requested. If confirmation is needed, request confirmation under separate order. NOTE: These results are for medical treatment only. Analysis performed using non-forensic procedures. [facility] No Panel InformationOrdered By: January Rodriguez on 05-16-2023 Interpretation and review of laboratory results Abnormal [facility] Source Of Oxygen 30% Oxygen [facility] Comment on above: ventilator [facility] No Panel InformationOrdered By: Harmony Bustamante on 05-16-2023 Interpretation and review of laboratory results Normal [facility] Legionella pneumophila Ag Not detected Not Detected [facility] Streptococcus pneumoniae Ag Not detected Not Detected [facility] Methodology: Lateral flow enzyme immunoassay This assay is approved for detection of antigens to Streptococcus pneumoniae and Legionella pneumophila serogroup 1; however, other L. pneumophila serogroups may also be detected. [facility] No Panel InformationOrdered By: Kathleen Rodas on 05-16-2023 [facility] Work Phone: Phosphate [Moles/Vol]on 04-18 Phosphate [Mass/Vol] 3.1 mg/dL 2.5 - 4 .5 mg/dL [facility] Portable XR Chest Viewson Radiology Study observation (narrative) [facility] Radiology Study observation (narrative) [facility] Respiratory pathogens DNA an d RNA panel COREY+non-probe (Lower resp)on 05-16-2023 Acinetobacter baumannii complex Not detected Not Detected [facility] Adenovirus Not detected Not Detected [facility] Chlamydia pneumoniae Not detected Not Detected [facility] Enterobacter cloacae complex Not detected Not Detected [facility] Escherichia coli Not detected Not Detected [facility] FLUAV RNA COREY+non-probe Ql (Lower resp) Not detected Not Detected [facility] FLUBV RNA COREY+non-probe Ql (Lower resp) Not detected Not Detected [facility] Haemophilus influenzae Not detected Not Detected [facility] Human Metapneumovirus Not detected Not Detected [facility] Human Rhinovirus/Enterovirus Not detected Not Detected [facility] Interpretation and review of laboratory results Normal [facility] Klebsiella (Enterobacter) aerogenes Not detected Not Detected [facility] Klebsiella oxytoca Not detected Not Detected [facility] Klebsiella pneumoniae Not detected Not Detected [facility] Legionella pneumophila Not detected Not Detected [facility] Moraxella catarrhalis Not detected Not Detected [facility] Mycoplasma pneumoniae Not detected Not Detected [facility] Parainfluenza virus Not detected Not Detected [facility] Proteus spp Not detected Not Detected [facility] Pseudomonas aeruginosa Not detected Not Detected [facility] RSV RNA COREY+probe Ql (Resp) Not detected Not Detected [facility] S. agalactiae Org specific cx Ql (Vag fld) Not detected Not Detected [facility] SARS-CoV-2 (COVID-19) RNA COREY+probe Ql (Unsp spec) Not detected Not Detected [facility] SARS-CoV-2 (COVID-19) RNA COREY+probe Ql (Unsp spec) Methodology: Multiplex PCR This panel does not test for SARS-CoV-2 (Covid-19). The following antimicrobial resistance gene is reported if the appropriate organism is detected: mecA. The following antimicrobial resistance genes are reported if detected and the appropriate organisms are detected: CTX-M, IMP, KPC, NDM, OXA-48-like, and VIM. [facility] Serratia marcescens Not detected Not Detected [facility] Staphylococcus aureus Not detected Not Detected [facility] Streptococcus pneumoniae Not detected Not Detected [facility] Streptococcus pyogenes Not detected Not Detected [facility] Tacrolimus (Bld) [Mass/Vol]o n 05-16-2023 Interpretation and review of laboratory results Normal [facility] Test performed using Chemiluminescent Microparticle Immunoassay (CMIA; [employer]) [facility] Vital signson 05-16-2023 Oxygen saturation in Blood 78 % 70 - 80 % [facility] Oxygen saturation in Venous blood 73.6 % 60.0 - 80.0 % [facility] Heart rate 80 /min bpm [facility] XR Abdomen Single viewon 07- 31-2023 IMPRESSION: Enteric tube in appropriate position. OLOGY EXAM: XR ABDOMEN 1 VIEW PORTABLE, 05/16/2023 22:07 PM COMPARISON: Abdominal radiograph December 12, 2018 CLINICAL INDICATIONS: verify placement of OG tube FINDINGS: Limited [id number] for enteric tube evaluation. Enteric tube projects appropriately over the stomach. No definite pneumatosis or pneumoperitoneum on limited single view evaluation. The visualized bowel loops are nondilated. Vertebral plasty changes at several lumbar levels. RADIOLOGY Sp Scherer MD - 05/16/2023 EXAM: XR ABDOMEN 1 VIEW PORTABLE, 05/16/2023 22:07 PM COMPARISON: Abdominal radiograph December 12, 2018 CLINICAL INDICATIONS: verify placement of OG tube FINDINGS: Limited [id number] for enteric tube evaluation. Enteric tube projects appropriately over the stomach. No definite pneumatosis or pneumoperitoneum on limited single view evaluation. The visualized bowel loops are nondilated. Vertebral plasty changes at several lumbar levels. IMPRESSION IMPRESSION: Enteric tube in appropriate position. [facility] Radiology Study observation (narrative) [facility] FINDINGS/IMPRESSION: Limitations: Patient positioning. Multiple overlying leads NG tube has its tip and sidehole located within the gastric body. Relative paucity of bowel gas without pathologically dilated loops of bowel. Elevation of the right hemidiaphragm with persistent bibasilar airspace disease. Postprocedural changes in the lumbar spine status post prior vertebroplasty. Vascular calcifications. Report Dictated on Electronically Signed By: Sanjay Ewing MD Electronically Signed Date/Time: 05/16/2023 8:32 AM EDT [facility] Patient Name: NICK BANKS : 1960 Exam Date/Time: 05/16/2023 08:28 Procedure: XR ABDOMEN 1 VIEW Ordering Provider: RODAS TIFFANY Reason For Exam: OG tube placement CLINICAL INDICATION: OG tube placement. TECHNIQUE: AP view of the abdomen COMPARISON: 05/16/2023. LEAPIN Digital Keys Duane Ewing MD - 05/16/2023 Patient Name: NICK HERNÁNDEZ : 1960 Exam Date/Time: 05/16/2023 08:28 Procedure: XR ABDOMEN 1 VIEW Ordering Provider: RODAS TIFFANY Reason For Exam: OG tube placement CLINICAL INDICATION: OG tube placement. TECHNIQUE: AP view of the abdomen COMPARISON: 05/16/2023. IMPRESSION: FINDINGS/IMPRESSION: Limitations: Patient positioning. Multiple overlying leads NG tube has its tip and sidehole located within the gastric body. Relative paucity of bowel gas without pathologically dilated loops of bowel. Elevation of the right hemidiaphragm with persistent bibasilar airspace disease. Postprocedural changes in the lumbar spine status post prior vertebroplasty. Vascular calcifications. Report Dictated on Electronically Signed By: Sanjay Ewing MD Electronically Signed Date/Time: 05/16/2023 8:32 AM EDT [facility] Radiology Study observation (narrative) [facility] alth An OG tube is not identified. Please correlate clinically. Report Dictated on Electronically Signed By: Tu Munoz MD Electronically Signed Date/Time: 05/16/2023 1:50 AM EDT [facility] Patient Name: NICK BANKS : 1960 Exam Date/Time: 05/16/2023 00:36 Procedure: XR ABDOMEN 1 VIEW Ordering Provider: RODAS TIFFANY Reason For Exam: OG placement SUPINE ABDOMEN (KUB) CLINICAL INDICATION: OG placement A supine plain film of the abdomen was obtained. COMPARISON: None FINDINGS: An OG tube is not identified. Cardiac monitoring device and pacer pads overlie the chest. There is an ETT and right IJ central line. Small amount of excreted contrast in the renal collecting systems and ureters from the earlier CT. Diffuse aortoiliac atherosclerotic calcification. Vertebroplasty cement in the L2-L4 vertebral bodies. No dilated bowel loops. [facility] Tu Munoz M D - 05/16/2023 Patient Name: NICK HERNÁNDEZ : 1960 Exam Date/Time: 05/16/2023 00:36 Procedure: XR ABDOMEN 1 VIEW Ordering Provider: RODAS TIFFANY Reason For Exam: OG placement SUPINE ABDOMEN (KUB) CLINICAL INDICATION: OG placement A supine plain film of the abdomen was obtained. COMPARISON: None FINDINGS: An OG tube is not identified. Cardiac monitoring device and pacer pads overlie the chest. There is an ETT and right IJ central line. Small amount of excreted contrast in the renal collecting systems and ureters from the earlier CT. Diffuse aortoiliac atherosclerotic calcification. Vertebroplasty cement in the L2-L4 vertebral bodies. No dilated bowel loops. IMPRESSION: An OG tube is not identified. Please correlate clinically. Report Dictated on Electronically Signed By: Tu Munoz MD Electronically Signed Date/Time: 05/16/2023 1:50 AM EDT [facility] Radiology Study observation (narrative) [facility] alth XR Abdomen Single viewOrdere d By: Sp Scherer on 05-16-2023 [facility] Work Phone: XR Abdomen Single viewOrdere d By: Duane Ewing on 05-16-2023 [facility] Work Phone: XR Abdomen Single viewOrdere d By: Tu Munoz on 05-16-2023 [facility] Work Phone: XR Chest Single viewon 05-16 Tip of the right IJ central line overlies the inferior aspect of the SVC. No pneumothorax. Report Dictated on Electronically Signed By: Tu Munoz MD Electronically Signed Date/Time: 05/16/2023 1:48 AM EDT [facility] Patient Name: NICK BANKS : 1960 Exam Date/Time: 05/16/2023 00:36 Procedure: XR CHEST 1 VIEW Ordering Provider: RODAS TIFFANY Reason For Exam: CVC placement AP CHEST X-RAY CLINICAL INDICATION: CVC placement TECHNIQUE: AP portable x-ray of the chest. COMPARISON: CT and x-ray 05/15/2023 FINDINGS: Limitations: None. Lines/Tubes: Status post endotracheal intubation with the tip of the ET tube in satisfactory position above the flavia. A right IJ central line has been introduced which follows the course of the brachiocephalic vein and SVC based on the earlier CT, with tip overlying the inferior aspect of the SVC. Heart/Mediastinum: Heart size is within normal limits, again with surgical clips near the flavia and left hilum. Lungs: Persistent right hemidiaphragm elevation and bibasilar atelectasis. No pneumothorax or pleural effusion. Bones: Unchanged [facility] Tu Munoz M D - 05/16/2023 [facility] Name: [facility]DEZ [facility] 1960 [id number] Exam Date/Time: 05/16/2023 00:36 Procedure: XR CHEST 1 VIEW Ordering Provider: RODAS TIFFANY Reason For Exam: CVC placement AP CHEST X-RAY CLINICAL INDICATION: CVC placement TECHNIQUE: AP portable x-ray of the chest. COMPARISON: CT and x-ray 05/15/2023 FINDINGS: Limitations: None. Lines/Tubes: Status post endotracheal intubation with the tip of the ET tube in satisfactory position above the flavia. A right IJ central line has been introduced which follows the course of the brachiocephalic vein and SVC based on the earlier CT, with tip overlying the inferior aspect of the SVC. Heart/Mediastinum: Heart size is within normal limits, again with surgical clips near the flavia and left hilum. Lungs: Persistent right hemidiaphragm elevation and bibasilar atelectasis. No pneumothorax or pleural effusion. Bones: Unchanged IMPRESSION: Tip of the right IJ central line overlies the inferior aspect of the SVC. No pneumothorax. Report Dictated on Electronically Signed By: Tu Munoz MD Electronically Signed Date/Time: 05/16/2023 1:48 AM EDT [facility] Radiology Study observation (narrative) [facility] Basic metabolic 1998 panelon 05-15-2023 Anion gap [Moles/Vol] 14 mmol/L High 3 - 13 mmol/L [facility] Calcium [Mass/Vol] 11.0 mg/dL High 8.4 - 10. 4 mg/dL [facility] Chloride [Moles/Vol] 108 mmol/L High 98 - 10 7 mmol/L [facility] CO2 [Moles/Vol] 16 mmol/L Low 22 - 30 mmol/L [facility] Creatinine [Mass/Vol] 1.60 mg/dL High 0.66 - 1.25 mg/dL [facility] GFR/1.73 sq M.predicted MDRD (S/P/Bld) [Vol rate/Area] 48.7 mL/min/{1.73_m2} Low - PINF [facility] Comment on above: Calculation based on the Chronic Kidney Disease Epidemiology Collaboration (CKD-EPI) equation refit without adjustment for race Glucose [Mass/Vol] 111 mg/dL High 70 - 100 mg/dL [facility] Interpretation and review of laboratory results Abnormal [facility] Potassium [Moles/Vol] 4.2 mmol/L 3.5 - 5.1 mmol/L [facility] Sodium [Moles/Vol] 137 mmol/L 135 - 145 mmol/L [facility] Urea nitrogen [Mass/Vol] 21 mg/dL High 9 - 20 mg/dL [facility] CBC W Auto Differential pane l (Bld)Ordered By: Arti Guevara on 05-15-2023 Basophils (Bld) [#/Vol] 0.0 10*3/uL 0.0 - 0.2 10*3/uL [facility] Basophils/100 WBC (Bld) 0.2 % 0.0 - 2.0 % [facility] Eosinophils (Bld) [#/Vol] 0.0 10*3/uL 0.0 - 0.5 10*3/uL [facility] Eosinophils/100 WBC (Bld) 0.2 % Low 1.0 - 6.0 % [facility] Erythrocyte distribution width (RBC) [Ratio] 15.3 % High 11.5 - 14.5 % [facility] Hematocrit (Bld) [Volume fraction] 44.8 % 40.0 - 52.0 % [facility] Hemoglobin (Bld) [Mass/Vol] 14.5 g/dL 13.0 - 18.0 g/dL [facility] Interpretation and review of laboratory results Abnormal [facility] Lymphocytes (Bld) [#/Vol] 1.5 10*3/uL 1.0 - 4.3 10*3/uL [facility] Lymphocytes/100 WBC (Bld) 19.4 % Low 20.0 - 40.0 % [facility] MCH (RBC) [Entitic mass] 29.2 pg 26. 0 - 34.0 pg [facility] MCHC (RBC) [Mass/Vol] 32.3 % 32.0 - 36.0 % [facility] MCV (RBC) [Entitic vol] 90.4 fL 80.0 - 98.0 fL [facility] Monocytes (Bld) [#/Vol] 0.6 10*3/uL 0.0 - 0.8 10*3/uL [facility] Monocytes/100 WBC (Bld) 8.1 % 2.0 - 10.0 % [facility] Neutrophils (Bld) [#/Vol] 5.6 10*3/uL 1.8 - 7.0 10*3/uL [facility] Neutrophils/100 WBC (Bld) 72.1 % 40.0 - 80.0 % [facility] Nucleated RBC/100 WBC (Bld) [Ratio] 0.0 % [facility] Platelet mean volume (Bld) [Entitic vol] 8.4 fL 7.4 - 12.4 fL [facility] Platelets (Bld) [#/Vol] 192 10*3/uL 140 - 440 10*3/uL [facility] RBC (Bld) [#/Vol] 4.96 10*6/uL 4.40 - 5.9 0 10*6/uL [facility] WBC (Bld) [#/Vol] 7.8 10*3/uL 3.6 - 10.7 10*3/uL [facility] CT Abdomen and Pelvis W cont rast Héctor 05-15-2023 1. No acute process. No evidence of an intramural hematoma, dissection or aneurysm. 2. Patchy airspaces opacities near the lung bases, which could relate to atelectasis versus developing pneumonia in the appropriate clinical setting. 3. Small nodular density in the left hemipelvis, presumed to relate to a lymph node. Attention on follow-up studies is recommended. 4. Additional chronic findings as above, including varying degrees of vascular stenosis (severe near the left internal iliac artery origin). Report Dictated on Electronically Signed By: Eliazar Alexander MD Electronically Signed Date/Time: 05/15/2023 8:16 PM EDT [facility] 1960 [id number] Exam Date/Time: 05/15/2023 19:36 Procedure: CT CHEST ABDOMEN PELVIS ANGIOGRAM W AND/OR WO CONTRAST Ordering Provider: CHAVARRIA MARY Reason For Exam: chest pain; LOC EXAMINATION: CTA of the chest, abdomen and pelvis. EXAM DATE & TIME: 05/15/2023 7:36 PM EDT INDICATION: chest pain; LOC ADDITIONAL INFORMATION: 63-year-old male with chest pain and loss of consciousness presents for evaluation COMPARISON: CT abdomen pelvis dated 07/30/2019 and CTA chest dated 10/21/2011 LIMITATIONS: Evaluation of the hollow viscera is limited due to the lack of oral contrast. TECHNIQUE: CT angiogram of the chest, abdomen and pelvis was performed with and without intravenous contrast. Thin isotropic axial imaging was obtained from the level of the thoracic inlet through the pelvis before and during dynamic infusion of 75 mL of intravenous Isovue 370 for evaluation of the vessels. Multiplanar and 3-D maximum intensity projection reformulations were created from the raw CT data with independent workstation software by the radiologist. These were interpreted in conjunction with the axial images to render the findings listed below. Before infusion of intravenous contrast, radiology personnel investigated the possibility of an allergic history and any history of reaction to iodinated contrast material. Dose reduction was employed with automated exposure control. CTA FINDINGS: Thoracic aorta and its proximal major branches: No significant stenosis. A couple of anterior mural hyperdensities are present along the anterior aspect of the ascending aorta (series 10, images 34 and 40). These findings are presumed to be postsurgical in nature. No convincing evidence of intramural hematoma, dissection or aneurysm. No periaortic fat stranding. Celiac axis: There is moderate focal ostial stenosis with poststenotic dilation. SMA: No significant stenosis. COBY: No significant stenosis. Right renal vessels: No significant stenosis. Left renal vessels: No significant stenosis. Infrarenal abdominal aorta: Mild stenosis. Right common iliac artery: Mild stenosis. Right internal iliac artery: Mild to moderate stenosis. Right external iliac artery: Moderate stenosis. Right common femoral artery: Mild to moderate stenosis. Proximal right profunda femoris artery: No significant stenosis. Proximal right SFA: No significant stenosis. Left common iliac artery: Moderate stenosis. Left internal iliac artery: Severe proximal stenosis. Left external iliac artery: Moderate stenosis. Left common femoral artery: Mild to moderate stenosis. Proximal left profunda femoris artery: No significant stenosis. Proximal left SFA: Mild stenosis. NONVASCULAR FINDINGS: Cardiovascular: Atherosclerotic vascular calcifications are present in the coronary arteries. No large central pulmonary embolism is identified. Evaluation of the segmental and subsegmental pulmonary arteries is limited due to the phase of contrast. Mediastinum/pericardiu m: Postsurgical changes are present in the superior aspect of the anterior mediastinum. Thyroid: Unremarkable. Tracheobronchial tree: An endotracheal tube is present with its distal tip approximately 2.9 cm above the flavia. Some debris is present in the trachea and lower lobe bronchioles. Pleura: No pleural effusion or pneumothorax. Lungs: Patchy airspace opacities are present near the lung bases. Nodules: No nodules are present that require follow up. Thoracic lymph nodes: No emerging adenopathy. Hepatobiliary: There is diffuse fatty metamorphosis of the liver. No significant intrahepatic biliary ductal dilation is seen. Gallbladder appears normal. Spleen: Unremarkable. Pancreas: There is fatty atrophy of the pancreas. Adrenal glands: Unremarkable. Kidneys, ureters and bladder: No hydronephrosis or nephrolithiasis. A Pretty catheter is present within the urinary bladder. A couple locules of gas are present within the urinary bladder, presumed to relate to instrumentation. Abdominal and pelvic vasculature: Atherosclerotic vascular calcifications are present in the abdominal aorta and its proximal major branches. Gastrointestinal: Scattered colonic diverticulosis is present without evidence of diverticulitis. There is no evidence of obstruction. The appendix is within normal limits. Peritoneum, retroperitoneum and mesentery: No free fluid or free air. A small 6 mm nodular density is present in the left hemipelvis (series 19, image 615). Lymph nodes: No abdominal or pelvic lymphadenopathy is evident. Solid pelvic viscera: Coarse prostatic calcifications are seen. Visualized musculoskeletal structures: No acute fracture or destructive osseous lesion is identified. Kyphoplasty/vertebropl asty cement is present at the (more content not included)... [facility] Eliazar Alexander MD - 05/15/2023 Patient Name: NICK HERNÁNDEZ : 1960 [id number] Exam Date/Time: 05/15/2023 19:36 Procedure: CT CHEST ABDOMEN PELVIS ANGIOGRAM W AND/OR WO CONTRAST Ordering Provider: CHAVARRIA MARY Reason For Exam: chest pain; LOC EXAMINATION: CTA of the chest, abdomen and pelvis. EXAM DATE & TIME: 05/15/2023 7:36 PM EDT INDICATION: chest pain; LOC ADDITIONAL INFORMATION: 63-year-old male with chest pain and loss of consciousness presents for evaluation COMPARISON: CT abdomen pelvis dated 07/30/2019 and CTA chest dated 10/21/2011 LIMITATIONS: Evaluation of the hollow viscera is limited due to the lack of oral contrast. TECHNIQUE: CT angiogram of the chest, abdomen and pelvis was performed with and without intravenous contrast. Thin isotropic axial imaging was obtained from the level of the thoracic inlet through the pelvis before and during dynamic infusion of 75 mL of intravenous Isovue 370 for evaluation of the vessels. Multiplanar and 3-D maximum intensity projection reformulations were created from the raw CT data with independent workstation software by the radiologist. These were interpreted in conjunction with the axial images to render the findings listed below. Before infusion of intravenous contrast, radiology personnel investigated the possibility of an allergic history and any history of reaction to iodinated contrast material. Dose reduction was employed with automated exposure control. CTA FINDINGS: Thoracic aorta and its proximal major branches: No significant stenosis. A couple of anterior mural hyperdensities are present along the anterior aspect of the ascending aorta (series 10, images 34 and 40). These findings are presumed to be postsurgical in nature. No convincing evidence of intramural hematoma, dissection or aneurysm. No periaortic fat stranding. Celiac axis: There is moderate focal ostial stenosis with poststenotic dilation. SMA: No significant stenosis. COBY: No significant stenosis. Right renal vessels: No significant stenosis. Left renal vessels: No significant stenosis. Infrarenal abdominal aorta: Mild stenosis. Right common iliac artery: Mild stenosis. Right internal iliac artery: Mild to moderate stenosis. Right external iliac artery: Moderate stenosis. Right common femoral artery: Mild to moderate stenosis. Proximal right profunda femoris artery: No significant stenosis. Proximal right SFA: No significant stenosis. Left common iliac artery: Moderate stenosis. Left internal iliac artery: Severe proximal stenosis. Left external iliac artery: Moderate stenosis. Left common femoral artery: Mild to moderate stenosis. Proximal left profunda femoris artery: No significant stenosis. Proximal left SFA: Mild stenosis. NONVASCULAR FINDINGS: Cardiovascular: Atherosclerotic vascular calcifications are present in the coronary arteries. No large central pulmonary embolism is identified. Evaluation of the segmental and subsegmental pulmonary arteries is limited due to the phase of contrast. Mediastinum/pericardiu m: Postsurgical changes are present in the superior aspect of the anterior mediastinum. Thyroid: Unremarkable. Tracheobronchial tree: An endotracheal tube is present with its distal tip approximately 2.9 cm above the flavia. Some debris is present in the trachea and lower lobe bronchioles. Pleura: No pleural effusion or pneumothorax. Lungs: Patchy airspace opacities are present near the lung bases. Nodules: No nodules are present that require follow up. Thoracic lymph nodes: No emerging adenopathy. Hepatobiliary: There is diffuse fatty metamorphosis of the liver. No significant intrahepatic biliary ductal dilation is seen. Gallbladder appears normal. Spleen: Unremarkable. Pancreas: There is fatty atrophy of the pancreas. Adrenal glands: Unremarkable. Kidneys, ureters and bladder: No hydronephrosis or nephrolithiasis. A Pretty catheter is present within the urinary bladder. A couple locules of gas are present within the urinary bladder, presumed to relate to instrumentation. Abdominal and pelvic vasculature: Atherosclerotic vascular calcifications are present in the abdominal aorta and its proximal major branches. Gastrointestinal: Scattered colonic diverticulosis is present without evidence of diverticulitis. There is no evidence of obstruction. The appendix is within normal limits. Peritoneum, retroperitoneum and mesentery: No free fluid or free air. A small 6 mm nodular density is present in the left hemipelvis (series 19, image 615). Lymph nodes: No abdominal or pelvic lymphadenopathy is evident. Solid pelvic viscera: Coarse prostatic calcifications are seen. Visualized musculoskeletal structures: No acute fracture or destructive osseous lesion is ident (more content not included)... [facility] CT Abdomen and Pelvis W cont rast IVOrdered By: Eliazar Alexander on 05-15-2023 Gust Work Phone: CT Head WO contraston 2022 1. No acute intracranial findings. 2. Chronic ischemic changes suspected. Report Dictated on Electronically Signed By: Tyler Shore MD Electronically Signed Date/Time: 05/15/2023 7:41 PM EDT [facility] Patient Name: NICK BANKS : 1960 Exam Date/Time: 05/15/2023 19:36 Procedure: CT HEAD WO IV CONTRAST Ordering Provider: CHAVARRIA MARY Reason For Exam: altered mental status CT BRAIN WITHOUT CONTRAST CLINICAL INDICATION: altered mental status TECHNIQUE: CT scan of the brain without IV contrast. Multiplanar reformations. Dose reduction was employed with automated exposure control. COMPARISON: March,. FINDINGS: No apparent mass or mass effect, hemorrhage, midline shift or hydrocephalus. No evidence of acute cortical infarct. No abnormal, extra-axial fluid or air collection. Mild, patchy low density in the periventricular and subcortical white matter is nonspecific, but may relate to chronic small vessel ischemic change. Age-related volume loss. Osseous calvarium grossly intact. Enteric tube partially visualized and coiled in the naso-oropharynx. [facility] Tyler Shore MD - 05/15/2023 Patient Name: NICK HERNÁNDEZ : 1960 Exam Date/Time: 05/15/2023 19:36 Procedure: CT HEAD WO IV CONTRAST Ordering Provider: CHAVARRIA MARY Reason For Exam: altered mental status CT BRAIN WITHOUT CONTRAST CLINICAL INDICATION: altered mental status TECHNIQUE: CT scan of the brain without IV contrast. Multiplanar reformations. Dose reduction was employed with automated exposure control. COMPARISON: March,. FINDINGS: No apparent mass or mass effect, hemorrhage, midline shift or hydrocephalus. No evidence of acute cortical infarct. No abnormal, extra-axial fluid or air collection. Mild, patchy low density in the periventricular and subcortical white matter is nonspecific, but may relate to chronic small vessel ischemic change. Age-related volume loss. Osseous calvarium grossly intact. Enteric tube partially visualized and coiled in the naso-oropharynx. IMPRESSION: 1. No acute intracranial findings. 2. Chronic ischemic changes suspected. Report Dictated on Electronically Signed By: Tyler Shore MD Electronically Signed Date/Time: 05/15/2023 7:41 PM EDT [facility] CT Head WO contrastOrdered B y: Tyler Shore on 05-15-2023 [facility] Work Phone: Calcium.ionized [Moles/Vol]o n 05-15-2023 Calcium.ionized (Bld) [Moles/Vol] 4.30 mg/dL 4.30 - 5.20 mg/dL [facility] Interpretation and review of laboratory results Normal [facility] PH, IONIZED CALCIUM 7.41 7.31 - 7.46 [facility] Creatinine (U) [Mass/Vol]on 05-15-2023 CREATININE, URINE 156.4 mg/dL No Range [facility] Hepatic function 2000 panelo n 05-15-2023 Albumin [Mass/Vol] 5.0 g/dL 3.5 - 5.0 g/dL [facility] ALP [Catalytic activity/Vol] 75 U/L 38 - 126 U/L [facility] ALT [Catalytic activity/Vol] 34 U/L 0 - 49 U/L [facility] AST [Catalytic activity/Vol] 39 U/L 15 - 46 U/L [facility] Bilirubin [Mass/Vol] 1.0 mg/dL 0.2 - 1 .3 mg/dL [facility] Bilirubin.conjugated [Mass/Vol] 0.0 mg/dL 0.0 - 0.3 mg/dL [facility] Protein [Mass/Vol] 8.0 g/dL 6.3 - 8.2 g/dL [facility] Laboratory - Chemistry and C hemistry - challengeon 05-15-2023 Sodium (24H U) [Mass/Vol] 97 mmol/L High 30 - 90 mmol/L [facility] Procalcitonin [Mass/Vol] 0.06 ng/mL 0.0 0 - 0.09 ng/mL [facility] Magnesium [Mass/Vol] 2.0 mg/dL 1.6 - 2 .3 mg/dL [facility] Prolactin [Mass/Vol] 14.8 ng/mL 4.0 - 1 8.0 ng/mL [facility] Troponin I.cardiac [Mass/Vol] ng/mL 0.000 - 0.034 ng/mL [facility] Glucose [Mass/Vol] 294 mg/dL High 70 - 100 mg/dL [facility] Laboratory - Chemistry and C hemistry - challengeOrdered By: Alaina Campbell on 05-15-2023 Base excess Calc (Bld) [Moles/Vol] -4.5000 mmol/L Low -3.0 - 3.0 mmol/L [facility] CO2 (Bld) [Partial pressure] 34.3 mm[Hg] Low - PINF [facility] CO2 [Moles/Vol] 20.8 mmol/L Low 23.0 - 27.0 mmol/L [facility] HCO3 (Bld) [Moles/Vol] 19.8 mmol/L Low 21.0 - 25.0 mmol/L [facility] Oxygen (Bld) [Partial pressure] 286.7 mm[Hg] High [facility] pH (Bld) 7.379 [pH] 7.350 - 7.450 [facility] Laboratory - Coagulationon 0 05-15-2023 aPTT Coag (PPP) [Time] 22.9 s 20.0 - 30.5 s [facility] INR Coag (PPP) [Relative time] 1.1 {INR} 0.9 - 1.1 [facility] Comment on above: Recommended Anticoag ulant Therapy: SEE BELOW ----- INR of 2.0 - 3.0 : - Prophylaxis of Venous Thrombosis (high-risk surgery) - Treatment of Venous Thrombosis - Treatment of Pulmonary Embolism (Includes tissue heart valves, Acute Myocardial Infarction to prevent systemic embolism, Valvular Heart Disease, and Atrial Fibrillation) ----- INR of 2.5 - 3.5 : - Mechanical Prosthetic Valves (high risk) - If oral anticoagulant therapy is used to prevent Myocardial Infarction PT Coag (Bld) [Time] 11.6 s 9.0 - 1 2.0 s [facility] Laboratory - Hematology and Cell countsOrdered By: Alaina Campbell on 05-15-2023 Hemoglobin (Bld) [Mass/Vol] 13.3 g/dL Screen Only [facility] MRSA DNA COREY+probe Ql (Nose) on 05-15-2023 Interpretation and review of laboratory results Normal [facility] mecA gene Not detected Not Detected [facility] Staphylococcus aureus Not detected Not Detected [facility] No Staphylococcus aureus detected. Negative nasal MRSA PCR has a high negative predictive value for MRSA pneumonia. Consider stopping Vancomycin if no other clinical indication. Contact Antimicrobial Stewardship for further recommendations. Staphylococcus aureus nasal screen by real-time PCR. This test was modified and its performance characteristics determined by [facility] Microbiology Service. The [place]. [place]. Food and Drug Administration has not approved or cleared this test; however, FDA clearance or approval is not currently required for clinical use. The results are not intended to be used as the sole means for clinical diagnosis or patient management decisions. [facility] No Panel Informationon 05-15 Interpretation and review of laboratory results Normal [facility] Interpretation and review of laboratory results Abnormal [facility] Interpretation and review of laboratory results Normal [facility] Interpretation and review of laboratory results Normal [facility] Values below 35 ng/m L may be of doubtful significance. Recommend send-out testing to rule out macroprolactin to confirm the result. [facility] Radiology Study observation (narrative) [facility] Interpretation and review of laboratory results Abnormal [facility] Performed by: [facility], [address] [place] [address] CLIA ID: [id number] [facility] Dionicio Stout II, MD 05/15/2023 9:58 PM Intubation Performed by: Dionicio Stout II, MD Authorized by: Audra Chavarria DO Consent: Consent was not able to be obtained because the procedure was emergent or the patient was unable to give consent and a surrogate decision maker was not available. Timeout: Completed immediately prior to the start of the procedure which included verification of the correct patient, correct site and agreement on the procedure to be done. Anesthetic: Local anesthetic used: not applicable Indications: Indications: altered consciousness Preparation: Assessment: Unstable dentition Mallampati score: Emergent not performed Neck mobility: Normal Pharmacologic strategy: rapid sequence Induction agents: Etomidate Paralytics: Rocuronium Procedure details: Preoxygenation: Bag valve mask CPR in progress: no Total number of attempts: 1 Successful intubation details: Intubation method: Oral Intubation technique: video-assisted Laryngoscope blade: Hyperangulated Bougie used: no Cormack-Lehane view: II Tube size (mm): 7.5 Tube type: Cuffed Placement assessment: ETT at lip (cm): 25 Tube secured with: Adhesive tape Breath sounds: Equal Placement verification: CXR verification Follow-up chest x-ray: Ordered Post-procedure: Estimated Blood Loss: None Specify complication(s): No apparent complications [facility] No Panel InformationOrdered By: Alaina Campbell on 05-15-2023 Interpretation and review of laboratory results Abnormal [facility] Source Of Oxygen 70% Oxygen [facility]th [facility] Phosphate [Moles/Vol]on 04-18 Interpretation and review of laboratory results Abnormal [facility] Phosphate [Mass/Vol] 2.1 mg/dL Low 2.5 - 4 .5 mg/dL [facility] Procalcitonin [Mass/Vol]on 05-15-2023 Interpretation and review of laboratory results Normal [facility] PCT <0.50 = Low risk of severe sepsis and/or septic shock. PCT >2.00 = High risk of severe sepsis and/or septic shock. [facility] Respiratory pathogens DNA an d RNA panel COREY+probe (Nph)on 05-15-2023 Adenovirus Not detected Not Detected [facility] B. pertussis DNA COREY+probe Ql (Unsp spec) Not detected Not Detected [facility] Bordetella parapertussis Not detected Not Detected [facility] Chlamydia pneumoniae Not detected Not Detected [facility] Coronavirus 229E Not detected Not Detected [facility] Coronavirus HKU1 Not detected Not Detected [facility] Coronavirus NL63 Not detected Not Detected [facility] Coronavirus OC43 Not detected Not Detected [facility] FLUAV RNA COREY+non-probe Ql (Nph) Not detected Not Detected [facility] FLUBV RNA COREY+non-probe Ql (Nph) Not detected Not Detected [facility] Human Metapneumovirus Not detected Not Detected [facility] Human Rhinovirus/Enterovirus Not detected Not Detected [facility] Interpretation and review of laboratory results Normal [facility] Mycoplasma pneumoniae Not detected Not Detected [facility] Parainfluenza 1 Not detected Not Detected [facility] Parainfluenza 2 Not detected Not Detected [facility] Parainfluenza 3 Not detected Not Detected [facility] Parainfluenza 4 Not detected Not Detected [facility] Respiratory Syncytial Virus Not detected Not Detected [facility] SARS-CoV-2 (COVID-19) RNA COREY+non-probe Ql (Nph) Not detected Not Detected [facility] Methodology: Multipl ex PCR [facility] Troponin I.cardiac [Mass/Vol ]on 05-15-2023 Interpretation and review of laboratory results Normal [facility] Patients with high levels of Biotin oral intake (ie >5 mg/day) may have falsely decreased Troponin levels. [facility] Urinalysis complete panel (U )on 05-15-2023 Bacteria LM.HPF (Urine sed) [#/Area] Negative Negative /HPF [facility] Bilirubin Ql (U) Negative Negative mg/dL [facility] Clarity (U) Clear Clear [facility] Color (U) Yellow Lt. Yellow [facility] Epithelial cells.squamous LM.HPF (Urine sed) [#/Area] Negative [facility] h Glucose Ql (U) Normal Normal (<70) mg/dL [facility] Hemoglobin Ql (U) Negative Negative mg/dL [facility] Hyaline casts Auto (Urine sed) [#/Area] 3-5 Abnormal Negative /LPF [facility] Interpretation and review of laboratory results Abnormal [facility] Ketones (U) [Mass/Vol] 20 mg/dL Abnormal Negative [facility] Leukocyte esterase Test strip Ql (U) Negative Negative Chacorta/uL [facility] Mucus LM.HPF (Urine sed) [#/Area] Few Negative /LPF [facility] Nitrite Ql (U) Negative Negative [facility] th pH (U) 5.5 [pH] 5.0 - 8.0 pH [facility] Protein (U) [Mass/Vol] 10 mg/dL Abnormal Negative [facility] RBC LM.HPF (Urine sed) [#/Area] 3-5 Abnormal [facility] Specific gravity (U) [Rel density] 1.039 High 1.005 - 1.030 [facility] Urobilinogen (U) [Mass/Vol] Normal Normal (0-1) mg/dL [facility] WBC LM.HPF (Urine sed) [#/Area] 3-5 [facility] XR Chest Single viewon 05-15 Impression: Endotracheal tube is radiographically in satisfactory position. Elevated right hemidiaphragm with suspected right basilar infiltrate or atelectasis. Median sternotomy changes with slightly prominent cardiac silhouette. Heart size is enlarged compared to the 2014 exam. Report Dictated on Electronically Signed By: Cristobal Coreas MD Electronically Signed Date/Time: 05/15/2023 7:23 PM EDT [facility] Patient Name: NICK BANKS : 1960 Exam Date/Time: 05/15/2023 19:20 Procedure: XR CHEST 1 VIEW Ordering Provider: CHAVARRIA MARY Reason For Exam: CHEST PAIN Examination: Portable chest Indication: CHEST PAIN Comparison: 01/31/2014 Findings: The cardiac silhouette is upper normal. Median sternotomy changes are present. Elevated right hemidiaphragm is present with right and mild right basilar infiltrate or atelectasis. Endotracheal tube tip is at the medial level of the clavicles.. Suspect vertebroplasty changes within the lumbar spine. [facility] Cristobal Coreas MD - 05/15/2023 Patient Name: NICK HERNÁNDEZ : 1960 Exam Date/Time: 05/15/2023 19:20 Procedure: XR CHEST 1 VIEW Ordering Provider: CHAVARRIA MARY Reason For Exam: CHEST PAIN Examination: Portable chest Indication: CHEST PAIN Comparison: 01/31/2014 Findings: The cardiac silhouette is upper normal. Median sternotomy changes are present. Elevated right hemidiaphragm is present with right and mild right basilar infiltrate or atelectasis. Endotracheal tube tip is at the medial level of the clavicles.. Suspect vertebroplasty changes within the lumbar spine. IMPRESSION: Impression: Endotracheal tube is radiographically in satisfactory position. Elevated right hemidiaphragm with suspected right basilar infiltrate or atelectasis. Median sternotomy changes with slightly prominent cardiac silhouette. Heart size is enlarged compared to the 2014 exam. Report Dictated on Electronically Signed By: Cristobal Coreas MD Electronically Signed Date/Time: 05/15/2023 7:23 PM EDT [facility] Study observation (narrative) Radu alth XR Chest Single viewOrdered By: Cristobal Coreas on 05-15-2023 [facility] Work Phone: DXA Skeletal system.axial Vi ews for bone densityon 10-22-2022 1. Osteoporosis. FRACTURE RISK: The estimated 10 year risk for a hip fracture is 6.5% and for a major osteoporosis-related fracture is 21%. (FRAX web version 3.11). RECOMMENDATIONS: General recommendations for prevention of bone loss include: 4851-2435 mg calcium intake per day for adults >50yrs, and no history of renal calculi 800-1000 IU of vitamin D3 per day for adults >50yrs, and no history of renal calculi Weight bearing exercise Discontinue smoking Avoid excessive use of caffeine, soft drinks, and alcoholic beverages In addition, balance training and fall prevention programs can help reduce the risk of fractures Pharmacologic treatment recommendations: Initiate pharmacologic treatment in patients with hip or vertebral fracture. In those with T scores In postmenopausal women and men age 50 or older with low bone mass (T score between -1.0 and -2.5 [osteopenia]) at the femoral neck, total hip, or lumbar spine by DXA have a 10 year hip fracture probability >/= 3% or a 10 year major osteoporosis-related fracture probability >/= 20% based on the [place]-adapted WHO fracture risk model (FRAX). Current FDA-approved pharmacologic options for osteoporosis treatment include bisphosphonates (Fosamax), ibandronate (Boniva), risedronate (Actonel), zoledronic acid (Reclast), estrogens and other hormonal therapies (Evista), parathyroid hormone (Forteo), and denosumab (Prolia). Initiation of pharmacologic therapy should happen only after thorough medical evaluation, discussion of risks and benefits, and with regular monitoring of the therapeutic regimen. Follow-up recommendations: Patients with osteoporosis or or at high risk for fracture should have follow-up bone density tests. For Medicare patients, routine testing is allowed every 2 years. Patients who have low bone mass (T score -2.0 to -2.49), who are currently on treatment for low bone mass, or having risk factors for accelerated bone loss (glucocorticoids, aromatase inhibitors, etc.), consider repeat DXA in 1-2 years. Patients with osteopenia and no risk factors may consider follow-up every 3-5 years. References: National Osteoporosis Foundation. Clinician's Guide to Prevention and Treatment of Osteoporosis. Osteoporosis International. Preciado, 2014. DXA Scan Screening, Reporting (FRAX Score) and Follow-up. Ratna of Knowledge Evidence - based Summaries. [facility] Education and Research 2017. Report Dictated on Electronically Signed By: Hany Dennison Electronically Signed Date/Time: 10/22/2022 10:55 AM [facility] RAD[facility] Patient Name: NICK BANKS Exam Date/Time: 10/22/2022 09:20 Procedure: DEXA BONE DENSITY AXIAL SKELETON Ordering Provider: LOPEZ DAVID Reason For Exam: DXA BONE DENSITOMETRY: CLINICAL INDICATION: Screening for osteoporosis. COMPARISON: None TECHNIQUE: Quantitative bone mineral densitometry of the hip and lumbar spine was performed with a dual energy x-ray observed absorptiometry device - AbaxiaigClarient at some institutions, HOLOGIC at others. Regions of interest were obtained through the proximal femur and compared to the normal value of young adult men. Regions of interest were also obtained through the lumbar vertebrae with an average value determined and compared to the normal value of young adult men. The difference between your measured bone density and the bone density of a normal young man is expressed in standard deviations as the T score. Similarly, your measured bone density is also compared to age and race matched values, and expressed in standard deviations as the Z score. According to World Health Organization criteria: T-score of -1.0 or higher is normal. T-score between -1.1 to < -2.5 is low bone density or osteopenia. T-score of -2.5 or lower is abnormally low, compatible with osteoporosis. T-score of -2.5 or less plus fragility fracture indicates severe osteoporosis. FINDINGS: Femoral neck LEFT Density: 0.567 g/cm2 T-score: -2.7. This falls within the osteoporotic range. Z-score: -1.7 Total Hip LEFT Density: 0.688 g/cm2 T-score: -2.3. This falls within the osteopenic range. Z-score: -1.8 Comparison from prior examination: N/A Spine: L2 & L5 (prior L3, L4, and L5 vertebroplasty/Kyphopl asty) Density 0.536 g/cm2 T-score: -4.9. This falls within the osteoporotic range. Z-score: -4.3 Comparison from prior examination: N/A [facility] RAD[facility]OLOG[facility] Hany Dennison MD - 10/22/2022 [id number] Exam Date/Time: 10/22/2022 09:20 Procedure: DEXA BONE DENSITY AXIAL SKELETON Ordering Provider: LOPEZ DAVID Reason For Exam: DXA BONE DENSITOMETRY: CLINICAL INDICATION: Screening for osteoporosis. COMPARISON: None TECHNIQUE: Quantitative bone mineral densitometry of the hip and lumbar spine was performed with a dual energy x-ray observed absorptiometry device - AbaxiaigClarient at some institutions, HOLOGIC at others. Regions of interest were obtained through the proximal femur and compared to the normal value of young adult men. Regions of interest were also obtained through the lumbar vertebrae with an average value determined and compared to the normal value of young adult men. The difference between your measured bone density and the bone density of a normal young man is expressed in standard deviations as the T score. Similarly, your measured bone density is also compared to age and race matched values, and expressed in standard deviations as the Z score. According to World Health Organization criteria: T-score of -1.0 or higher is normal. T-score between -1.1 to < -2.5 is low bone density or osteopenia. T-score of -2.5 or lower is abnormally low, compatible with osteoporosis. T-score of -2.5 or less plus fragility fracture indicates severe osteoporosis. FINDINGS: Femoral neck LEFT Density: 0.567 g/cm2 T-score: -2.7. This falls within the osteoporotic range. Z-score: -1.7 Total Hip LEFT Density: 0.688 g/cm2 T-score: -2.3. This falls within the osteopenic range. Z-score: -1.8 Comparison from prior examination: N/A Spine: L2 & L5 (prior L3, L4, and L5 vertebroplasty/Kyphopl asty) Density 0.536 g/cm2 T-score: -4.9. This falls within the osteoporotic range. Z-score: -4.3 Comparison from prior examination: N/A IMPRESSION: 1. Osteoporosis. FRACTURE RISK: The estimated 10 year risk for a hip fracture is 6.5% and for a major osteoporosis-related fracture is 21%. (FRAX web version 3.11). RECOMMENDATIONS: General recommendations for prevention of bone loss include: 1870-8156 mg calcium intake per day for adults >50yrs, and no history of renal calculi 800-1000 IU of vitamin D3 per day for adults >50yrs, and no history of renal calculi Weight bearing exercise Discontinue smoking Avoid excessive use of caffeine, soft drinks, and alcoholic beverages In addition, balance training and fall prevention programs can help reduce the risk of fractures Pharmacologic treatment recommendations: Initiate pharmacologic treatment in patients with hip or vertebral fracture. In those with T scores spine by DXA In postmenopausal women and men age 50 or older with low bone mass (T score between -1.0 and -2.5 [osteopenia]) at the femoral neck, total hip, or lumbar spine by DXA have a 10 year hip fracture probability >/= 3% or a 10 year major osteoporosis-related fracture probability >/= 20% based on the [place]-adapted WHO fracture risk model (FRAX). Current FDA-approved pharmacologic options for osteoporosis treatment include bisphosphonates (Fosamax), ibandronate (Boniva), risedronate (Actonel), zoledronic acid (Reclast), estrogens and other hormonal therapies (Evista), parathyroid hormone (Forteo), and denosumab (Prolia). Initiation of pharmacologic therapy should happen only after thorough medical evaluation, discussion of risks and benefits, and with regular monitoring of the therapeutic regimen. Follow-up recommendations: Patients with osteoporosis or or at high risk for fracture should have follow-up bone density tests. For Medicare patients, routine testing is allowed every 2 years. Patients who have low bone mass (T score -2.0 to -2.49), who are currently on treatment for low bone mass, or having risk factors for accelerated bone loss (glucocorticoids, aromatase inhibitors, etc.), consider repeat DXA in 1-2 years. Patients with osteopenia and no risk factors may consider follow-up every 3-5 years. References: National Osteoporosis Foundation. Clinician's Guide to Prevention and Treatment of Osteoporosis. Osteoporosis International. Preciado, 2014. DXA Scan Screening, Reporting (FRAX Score) and Follow-up. Ratna of Knowledge Evidence - based Summaries. [facility] Education and Research 2017. Report Dictated on Electronically Signed By: Hany Dennison Electronically Signed Date/Time: 10/22/2022 10:55 AM EST [facility] Study observation (narrative) [facility] DXA Skeletal system.axial Vi ews for bone densityOrdered By: Hany Dennison on 10-22-2022 [facility] Work Phone: Spirometry without bronchodi latoron 07-30-2022 Name: NICK HERNÁNDEZ PatientID: [id number] Gender: Male Birthdate: 1960 Study Date: 07/30/2022 11:18:42 Age: 62 Race: White or Height: 72.0 in, 182.9 cm Weight: 208.0 lbs, 94.5 kg Smoke Status: Never Pack Years: Tbco Prod: Cigarettes Ordering Physician: [id number] Interpreting Physician: [id number] Imaging Science Professor: HERMAN Testing Location: [facility] Diagnosis: S/P LUNG TRANSPLANT Spirometry Units Pred PreDrug Pre%Pred Post Post%Pred %Change FVC L,btps 5.11 4.10 80. FEV1 L,btps 3.87 2.68 69. FEV1/FVC (%) % 76. 65. 86. BYZ36-09% L/s 3.16 1.20 38. FEFmax L/s 9.68 5.49 57. MVV in,btps 131.18 Lung Volumes (Body Box) Units Pred PreDrug Pre%Pred TLC L,btps 7.60 VC L,btps 5.11 IC L,btps 3.87 FRC L,btps 3.73 ERV L,btps 1.24 RV L,btps 2.49 RV/TLC (%) % 33. VTG L,btps RAW H2O/L/s 1.19 SGaw cmH2O/L 0.23 Diffusion (DLCO) Units Pred PreDrug Pre%Pred DLCO ml/min/mmHg,stpd 32.88 DLCOHb ml/min/mmHg,stpd 32.88 VAsb L,btps 7.42 D/VAsb ml/min/mmHg/L,stpd 4.43 D/VAsbHb ml/min/mmHg/L,stpd 4.43 VInsp L Hgb g/dl COHb % Lung Mechanics Units Pred PreDrug Pre%Pred PImax /MIP cmH2O -80.20 PEmax /MEP cmH2O 125.40 [facility] PRICING CONSULTANT NOTES Tests to perform: [id number] - SPIROMETRY WITHOUT BRONCHODILATOR. HOME MEDS: PREDNISONE 5 MG/DAY. GOOD EFFORT THROUGHOUT. PRELIMINARY RESULTS FAXED TO DR. LOPEZ AT [facility]. 36685- SLIM PHYSICIAN INTERPRETATION [place] shows moderate obstruction. [facility] Ar Jonas MD - 07/30/2022 Name: NICK HERNÁNDEZ PatientID: [id number] Gender: Male Birthdate: 1960 Study Date: 07/30/2022 11:18:42 Age: 62 Race: White or Height: 72.0 in, 182.9 cm Weight: 208.0 lbs, 94.5 kg Smoke Status: Never Pack Years: Tbco Prod: Cigarettes Ordering Physician: [id number] Interpreting Physician: [id number] Imaging Science Professor: HERMAN Testing Location: [facility] Diagnosis: S/P LUNG TRANSPLANT Spirometry Units Pred PreDrug Pre%Pred Post Post%Pred %Change FVC L,btps 5.11 4.10 80. FEV1 L,btps 3.87 2.68 69. FEV1/FVC (%) % 76. 65. 86. CVB24-66% L/s 3.16 1.20 38. FEFmax L/s 9.68 5.49 57. MVV in,btps 131.18 Lung Volumes (Body Box) Units Pred PreDrug Pre%Pred TLC L,btps 7.60 VC L,btps 5.11 IC L,btps 3.87 FRC L,btps 3.73 ERV L,btps 1.24 RV L,btps 2.49 RV/TLC (%) % 33. VTG L,btps RAW H2O/L/s 1.19 SGaw cmH2O/L 0.23 Diffusion (DLCO) Units Pred PreDrug Pre%Pred DLCO ml/min/mmHg,stpd 32.88 DLCOHb ml/min/mmHg,stpd 32.88 VAsb L,btps 7.42 D/VAsb ml/min/mmHg/L,stpd 4.43 D/VAsbHb ml/min/mmHg/L,stpd 4.43 VInsp L Hgb g/dl COHb % Lung Mechanics Units Pred PreDrug Pre%Pred PImax /MIP cmH2O -80.20 PEmax /MEP cmH2O 125.40 [facility] PRICING CONSULTANT NOTES Tests to perform: [id number] - SPIROMETRY WITHOUT BRONCHODILATOR. HOME MEDS: PREDNISONE 5 MG/DAY. GOOD EFFORT THROUGHOUT. PRELIMINARY RESULTS FAXED TO DR. LOPEZ AT [facility]. 73273- SLIM PHYSICIAN INTERPRETATION [place] shows moderate obstruction. [facility] Work Phone: Spirometry without bronchodi latorOrdered By: Ar Hong on 07-30-2022 [facility] Work Phone: Spirometry Without Bronchodi latoron 07-01-2022 Name: NICK HERNÁNDEZ PatientID: [id number] Gender: Male Birthdate: 1960 Study Date: 07/01/2022 11:08:30 Age: 62 Race: White or Height: 72.0 in, 182.9 cm Weight: 199.0 lbs, 90.5 kg Smoke Status: Never Pack Years: Tbco Prod: Cigarettes Ordering Physician: [id number] Interpreting Physician: [id number] Imaging Science Professor: ANDERSON Testing Location: [facility] Diagnosis: Spirometry Units Pred PreDrug Pre%Pred Post Post%Pred %Change FVC L,btps 5.11 4.43 87. FEV1 L,btps 3.87 2.74 71. FEV1/FVC (%) % 76. 62. 82. FEL79-24% L/s 3.16 1.25 40. FEFmax L/s 9.68 5.43 56. MVV in,btps 131.18 Lung Volumes (Body Box) Units Pred PreDrug Pre%Pred TLC L,btps 7.60 VC L,btps 5.11 IC L,btps 3.87 FRC L,btps 3.73 ERV L,btps 1.24 RV L,btps 2.49 RV/TLC (%) % 33. VTG L,btps RAW H2O/L/s 1.19 SGaw cmH2O/L 0.23 Diffusion (DLCO) Units Pred PreDrug Pre%Pred DLCO ml/min/mmHg,stpd 32.88 DLCOHb ml/min/mmHg,stpd 32.88 VAsb L,btps 7.42 D/VAsb ml/min/mmHg/L,stpd 4.43 D/VAsbHb ml/min/mmHg/L,stpd 4.43 VInsp L Hgb g/dl COHb % Lung Mechanics Units Pred PreDrug Pre%Pred PImax /MIP cmH2O -80.20 PEmax /MEP cmH2O 125.40 [facility] PRICING CONSULTANT NOTES Tests to perform: [id number] - SPIROMETRY WITHOUT BRONCHODILATOR numerical control tool programmer testing passed calibration with acceptable system performance. The patient performed all pre-test requirements. Calibration check passed with acceptable system performance. Spirometry best effort, met acceptability and repeatability guidelines. 41752- SLIM PHYSICIAN INTERPRETATION The quality of the study is good. The flow volume loop is closed. 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 [facility] Matthew Chatman MD - 07/01/2022 Name: NICK HERNÁNDEZ PatientID: [id number] Gender: Male Birthdate: 1960 Study Date: 07/01/2022 11:08:30 Age: 62 Race: White or Height: 72.0 in, 182.9 cm Weight: 199.0 lbs, 90.5 kg Smoke Status: Never Pack Years: Tbco Prod: Cigarettes Ordering Physician: [id number] Interpreting Physician: [id number] Imaging Science Professor: ANDERSON Testing Location: [facility] Diagnosis: Spirometry Units Pred PreDrug Pre%Pred Post Post%Pred %Change FVC L,btps 5.11 4.43 87. FEV1 L,btps 3.87 2.74 71. FEV1/FVC (%) % 76. 62. 82. WWQ10-88% L/s 3.16 1.25 40. FEFmax L/s 9.68 5.43 56. MVV in,btps 131.18 Lung Volumes (Body Box) Units Pred PreDrug Pre%Pred TLC L,btps 7.60 VC L,btps 5.11 IC L,btps 3.87 FRC L,btps 3.73 ERV L,btps 1.24 RV L,btps 2.49 RV/TLC (%) % 33. VTG L,btps RAW H2O/L/s 1.19 SGaw cmH2O/L 0.23 Diffusion (DLCO) Units Pred PreDrug Pre%Pred DLCO ml/min/mmHg,stpd 32.88 DLCOHb ml/min/mmHg,stpd 32.88 VAsb L,btps 7.42 D/VAsb ml/min/mmHg/L,stpd 4.43 D/VAsbHb ml/min/mmHg/L,stpd 4.43 VInsp L Hgb g/dl COHb % Lung Mechanics Units Pred PreDrug Pre%Pred PImax /MIP cmH2O -80.20 PEmax /MEP cmH2O 125.40 [facility] PRICING CONSULTANT NOTES Tests to perform: [id number] - SPIROMETRY WITHOUT BRONCHODILATOR numerical control tool programmer testing passed calibration with acceptable system performance. The patient performed all pre-test requirements. Calibration check passed with acceptable system performance. Spirometry best effort, met acceptability and repeatability guidelines. 03013- SLIM PHYSICIAN INTERPRETATION The quality of the study is good. The flow volume loop is closed. 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 [facility] Work Phone: Spirometry Without Bronchodi latorOrdered By: Matthew Huang on 07-01-2022 [facility] Work Phone: Spirometry without bronchodi latoron 05-31-2022 Name: NICK HERNÁNDEZ PatientID: [id number] Gender: Male Birthdate: 1960 Study Date: 05/31/2022 9:05:31 A Age: 62 Race: White or Height: 72.0 in, 182.9 cm Weight: 218.0 lbs, 99.1 kg Smoke Status: Never Pack Years: Tbco Prod: Cigarettes Ordering Physician: [id number] Interpreting Physician: [id number] Imaging Science Professor: HERMAN Testing Location: [facility] Diagnosis: S/P LUNG TRANSPLANT Spirometry Units Pred PreDrug Pre%Pred Post Post%Pred %Change FVC L,btps 5.11 4.22 82. FEV1 L,btps 3.87 2.52 65. FEV1/FVC (%) % 76. 60. 79. KLA25-04% L/s 3.16 1.07 34. FEFmax L/s 9.68 4.89 50. MVV in,btps 131.18 Lung Volumes (Body Box) Units Pred PreDrug Pre%Pred TLC L,btps 7.60 VC L,btps 5.11 IC L,btps 3.87 FRC L,btps 3.73 ERV L,btps 1.24 RV L,btps 2.49 RV/TLC (%) % 33. VTG L,btps RAW H2O/L/s 1.19 SGaw cmH2O/L 0.23 Diffusion (DLCO) Units Pred PreDrug Pre%Pred DLCO ml/min/mmHg,stpd 32.88 DLCOHb ml/min/mmHg,stpd 32.88 VAsb L,btps 7.42 D/VAsb ml/min/mmHg/L,stpd 4.43 D/VAsbHb ml/min/mmHg/L,stpd 4.43 VInsp L Hgb g/dl COHb % Lung Mechanics Units Pred PreDrug Pre%Pred PImax /MIP cmH2O -80.20 PEmax /MEP cmH2O 125.40 [facility]ALTH[employer]ARE NETWORK PRICING CONSULTANT NOTES Tests to perform: [id number] - SPIROMETRY WITHOUT BRONCHODILATOR. NO CURRENT BD. GOOD EFFORT THROUGHOUT. PRELIMINARY RESULTS FAXED TO DR. LOPEZ PER PHYSICIAN ORDERS. 61524- SLIM PHYSICIAN INTERPRETATION [facility] Devin Dale MD - 05/31/2022 Name: NICK HERNÁNDEZ PatientID: [id number] Gender: Male Birthdate: 1960 Study Date: 05/31/2022 9:05:31 A Age: 62 Race: White or Height: 72.0 in, 182.9 cm Weight: 218.0 lbs, 99.1 kg Smoke Status: Never Pack Years: Tbco Prod: Cigarettes Ordering Physician: [id number] Interpreting Physician: [id number] Imaging Science Professor: HERMAN Testing Location: [facility] Diagnosis: S/P LUNG TRANSPLANT Spirometry Units Pred PreDrug Pre%Pred Post Post%Pred %Change FVC L,btps 5.11 4.22 82. FEV1 L,btps 3.87 2.52 65. FEV1/FVC (%) % 76. 60. 79. ORV58-64% L/s 3.16 1.07 34. FEFmax L/s 9.68 4.89 50. MVV in,btps 131.18 Lung Volumes (Body Box) Units Pred PreDrug Pre%Pred TLC L,btps 7.60 VC L,btps 5.11 IC L,btps 3.87 FRC L,btps 3.73 ERV L,btps 1.24 RV L,btps 2.49 RV/TLC (%) % 33. VTG L,btps RAW H2O/L/s 1.19 SGaw cmH2O/L 0.23 Diffusion (DLCO) Units Pred PreDrug Pre%Pred DLCO ml/min/mmHg,stpd 32.88 DLCOHb ml/min/mmHg,stpd 32.88 VAsb L,btps 7.42 D/VAsb ml/min/mmHg/L,stpd 4.43 D/VAsbHb ml/min/mmHg/L,stpd 4.43 VInsp L Hgb g/dl COHb % Lung Mechanics Units Pred PreDrug Pre%Pred PImax /MIP cmH2O -80.20 PEmax /MEP cmH2O 125.40 [facility]ALTH[employer]ARE NETWORK PRICING CONSULTANT NOTES Tests to perform: [id number] - SPIROMETRY WITHOUT BRONCHODILATOR. NO CURRENT BD. GOOD EFFORT THROUGHOUT. PRELIMINARY RESULTS FAXED TO DR. LOPEZ PER PHYSICIAN ORDERS. 75287- SLIM PHYSICIAN INTERPRETATION [facility] Work Phone: Spirometry without bronchodi latorOrdered By: Devin Dale on 05-31-2022 [facility] Work Phone: CMV IgM Abon 04-28-2022 CMV IgM Ab < 8.0 Normal <=29.9 [facility] Comment on above: Result Comment: INTE RPRETIVE INFORMATION: Cytomegalovirus Antibody, IgM 29.9 AU/mL or Less ....... Not Detected 30.0-34.9 AU/mL........... Indeterminate-Repeat testing in 10-14 days may be helpful. 35.0 AU/mL or Greater .... Detected-IgM antibody to CMV detected which may indicate a current or recent infection. However, low levels of IgM antibodies may occasionally persist for more than 12 months post-infection. CMV serology is not useful for the evaluation of active or reactivated infection in immunocompromised patients. Molecular diagnostic tests (i.e. PCR)are preferred in these cases. This test should not be used for blood donor screening, associated re-entry protocols, or for screening Human Cell, Tissues and Cellular and Tissue-Based Products (HCT/P). Performed By: [facility] [address] [place] [id number] Airplane Technician: Kermit Rascon MD, PhD Performed By: #### H EMDF, BUN3, GLUC3, URIC3, BILF3, FEIBC, PHOS3, MG3, HA1C2, CA3, FK5 #### [address] [address] #### IGMO, IGAO, EBVPO, IGGO, CMVLO #### The performing lab is in the report. Bilirubin, Fractionatedon Bilirubin [Mass/Vol] 0.5 mg/dL Normal 0.2-1.3 [facility] Comment on above: Performed By: #### H EMDF, BUN3, GLUC3, URIC3, BILF3, FEIBC, PHOS3, MG3, HA1C2, CA3, FK5 #### [address] [address] #### IGMO, IGAO, EBVPO, IGGO, CMVLO #### The performing lab is in the report. Bilirubin.indirect [Mass/Vol] 0.0 mg/dL Normal 0.0-0.3 [facility] Comment on above: Performed By: #### H EMDF, BUN3, GLUC3, URIC3, BILF3, FEIBC, PHOS3, MG3, HA1C2, CA3, FK5 #### [address] [address] #### IGMO, IGAO, EBVPO, IGGO, CMVLO #### The performing lab is in the report. Calciumon 04-26-2022 Calcium [Mass/Vol] 9.6 mg/dL Normal 8.4-10.4 [facility] Comment on above: Performed By: #### H EMDF, BUN3, GLUC3, URIC3, BILF3, FEIBC, PHOS3, MG3, HA1C2, CA3, FK5 #### [address] [address] #### IGMO, IGAO, EBVPO, IGGO, CMVLO #### The performing lab is in the report. FK506 (Prograf)on 04-26-2022 FK506 (Prograf) 6.3 ug/L Normal 5.0-20.0 [facility] Comment on above: Result Comment: Test performed using Chemiluminescent Microparticle Immunoassay (CMIA; [employer]) Performed By: #### H EMDF, BUN3, GLUC3, URIC3, BILF3, FEIBC, PHOS3, MG3, HA1C2, CA3, FK5 #### [address] [address] #### IGMO, IGAO, EBVPO, IGGO, CMVLO #### The performing lab is in the report. Glucoseon 04-26-2022 Glucose [Mass/Vol] 103 mg/dL High 70-100 [facility] Comment on above: Performed By: #### H EMDF, BUN3, GLUC3, URIC3, BILF3, FEIBC, PHOS3, MG3, HA1C2, CA3, FK5 #### [address] [phone] #### IGMO, IGAO, EBVPO, IGGO, CMVLO #### The performing lab is in the report. Hemogram w/ Autodiffon 04-26 Abs Baso Cnt 0.0 10*3/uL Normal 0.0-0.2 [facility] Comment on above: Performed By: #### H EMDF, BUN3, GLUC3, URIC3, BILF3, FEIBC, PHOS3, MG3, HA1C2, CA3, FK5 #### [address] [address] #### IGMO, IGAO, EBVPO, IGGO, CMVLO #### The performing lab is in the report. Abs Neutrophile Cnt 3.3 10*3/uL Normal 1.8-7.0 [facility] Comment on above: Performed By: #### H EMDF, BUN3, GLUC3, URIC3, BILF3, FEIBC, PHOS3, MG3, HA1C2, CA3, FK5 #### [address] [address] #### IGMO, IGAO, EBVPO, IGGO, CMVLO #### The performing lab is in the report. Basophils/100 WBC (Bld) 0.4 % Normal 0.0-2.0 S [facility] Comment on above: Performed By: #### H EMDF, BUN3, GLUC3, URIC3, BILF3, FEIBC, PHOS3, MG3, HA1C2, CA3, FK5 #### [address] [address] #### IGMO, IGAO, EBVPO, IGGO, CMVLO #### The performing lab is in the report. Eosinophils (Bld) [#/Vol] 0.1 10*3/uL Normal 0.0-0.5 [facility] Comment on above: Performed By: #### H EMDF, BUN3, GLUC3, URIC3, BILF3, FEIBC, PHOS3, MG3, HA1C2, CA3, FK5 #### [address] [address] #### IGMO, IGAO, EBVPO, IGGO, CMVLO #### The performing lab is in the report. Eosinophils/100 WBC (Bld) 1.6 % Normal 1.0-6.0 [facility] Comment on above: Performed By: #### H EMDF, BUN3, GLUC3, URIC3, BILF3, FEIBC, PHOS3, MG3, HA1C2, CA3, FK5 #### [address] [address] #### IGMO, IGAO, EBVPO, IGGO, CMVLO #### The performing lab is in the report. Erythrocyte distribution width (RBC) [Ratio] 15.1 % High 11.5-14.5 [facility] Comment on above: Performed By: #### H EMDF, BUN3, GLUC3, URIC3, BILF3, FEIBC, PHOS3, MG3, HA1C2, CA3, FK5 #### [address] #### IGMO, IGAO, EBVPO, IGGO, CMVLO #### The performing lab is in the report. Granulocytes/100 WBC (Bld) 67.5 % Normal 40.0-80.0 [facility] Comment on above: Performed By: #### H EMDF, BUN3, GLUC3, URIC3, BILF3, FEIBC, PHOS3, MG3, HA1C2, CA3, FK5 #### [address] #### IGMO, IGAO, EBVPO, IGGO, CMVLO #### The performing lab is in the report. Hematocrit (Bld) [Volume fraction] 40.0 % Normal 40.0-52.0 [facility] Comment on above: Performed By: #### H EMDF, BUN3, GLUC3, URIC3, BILF3, FEIBC, PHOS3, MG3, HA1C2, CA3, FK5 #### [address] #### IGMO, IGAO, EBVPO, IGGO, CMVLO #### The performing lab is in the report. Hemoglobin (Bld) [Mass/Vol] 13.4 g/dL Normal 13.0-18.0 [facility] Comment on above: Performed By: #### H EMDF, BUN3, GLUC3, URIC3, BILF3, FEIBC, PHOS3, MG3, HA1C2, CA3, FK5 #### [address] #### IGMO, IGAO, EBVPO, IGGO, CMVLO #### The performing lab is in the report. Lymphocytes (Bld) [#/Vol] 1.0 10*3/uL Normal 1.0-4.3 [facility] Comment on above: Performed By: #### H EMDF, BUN3, GLUC3, URIC3, BILF3, FEIBC, PHOS3, MG3, HA1C2, CA3, FK5 #### [address] #### IGMO, IGAO, EBVPO, IGGO, CMVLO #### The performing lab is in the report. Lymphocytes/100 WBC (Bld) 19.9 % Low 20.0-40.0 [facility] Comment on above: Performed By: #### H EMDF, BUN3, GLUC3, URIC3, BILF3, FEIBC, PHOS3, MG3, HA1C2, CA3, FK5 #### [address] #### IGMO, IGAO, EBVPO, IGGO, CMVLO #### The performing lab is in the report. MCH (RBC) [Entitic mass] 31.0 pg Normal 26.0-34.0 [facility] Comment on above: Performed By: #### H EMDF, BUN3, GLUC3, URIC3, BILF3, FEIBC, PHOS3, MG3, HA1C2, CA3, FK5 #### [address] #### IGMO, IGAO, EBVPO, IGGO, CMVLO #### The performing lab is in the report. MCHC 33.5 % Normal 32.0-36.0 [facility] Comment on above: Performed By: #### H EMDF, BUN3, GLUC3, URIC3, BILF3, FEIBC, PHOS3, MG3, HA1C2, CA3, FK5 #### [address] #### IGMO, IGAO, EBVPO, IGGO, CMVLO #### The performing lab is in the report. MCV (RBC) [Entitic vol] 92.6 fL Normal 80.0-98.0 S [facility] Comment on above: Performed By: #### H EMDF, BUN3, GLUC3, URIC3, BILF3, FEIBC, PHOS3, MG3, HA1C2, CA3, FK5 #### [address] [address] #### IGMO, IGAO, EBVPO, IGGO, CMVLO #### The performing lab is in the report. Monocytes (Bld) [#/Vol] 0.5 10*3/uL Normal 0.0-0.8 [facility] Comment on above: Performed By: #### H EMDF, BUN3, GLUC3, URIC3, BILF3, FEIBC, PHOS3, MG3, HA1C2, CA3, FK5 #### [address] [address] #### IGMO, IGAO, EBVPO, IGGO, CMVLO #### The performing lab is in the report. Monocytes/100 WBC (Bld) 10.6 % High 2.0-10.0 S [facility] Comment on above: Performed By: #### H EMDF, BUN3, GLUC3, URIC3, BILF3, FEIBC, PHOS3, MG3, HA1C2, CA3, FK5 #### [address] [address] #### IGMO, IGAO, EBVPO, IGGO, CMVLO #### The performing lab is in the report. Platelet mean volume (Bld) [Entitic vol] 8.9 fL Normal 7.4-12.4 [facility] Comment on above: Result Comment: MPV is a calculated measurement using platelet volume ratio. Performed By: #### H EMDF, BUN3, GLUC3, URIC3, BILF3, FEIBC, PHOS3, MG3, HA1C2, CA3, FK5 #### [address] [address] #### IGMO, IGAO, EBVPO, IGGO, CMVLO #### The performing lab is in the report. Platelets (Bld) [#/Vol] 157 10*3/uL Normal 140-440 [facility] Comment on above: Performed By: #### H EMDF, BUN3, GLUC3, URIC3, BILF3, FEIBC, PHOS3, MG3, HA1C2, CA3, FK5 #### [address] [address] #### IGMO, IGAO, EBVPO, IGGO, CMVLO #### The performing lab is in the report. RBC (Bld) [#/Vol] 4.33 10*6/uL Low 4.40-5.90 [facility] Comment on above: Performed By: #### H EMDF, BUN3, GLUC3, URIC3, BILF3, FEIBC, PHOS3, MG3, HA1C2, CA3, FK5 #### [address] [address] #### IGMO, IGAO, EBVPO, IGGO, CMVLO #### The performing lab is in the report. WBC (Bld) [#/Vol] 5.0 10*3/uL Normal 3.6-10.7 [facility] Comment on above: Performed By: #### H EMDF, BUN3, GLUC3, URIC3, BILF3, FEIBC, PHOS3, MG3, HA1C2, CA3, FK5 #### [address] [address] #### IGMO, IGAO, EBVPO, IGGO, CMVLO #### The performing lab is in the report. Magnesiumon 04-26-2022 Magnesium [Mass/Vol] 1.7 mg/dL Normal 1.6-2.3 [facility] Comment on above: Performed By: #### H EMDF, BUN3, GLUC3, URIC3, BILF3, FEIBC, PHOS3, MG3, HA1C2, CA3, FK5 #### [address] [address] #### IGMO, IGAO, EBVPO, IGGO, CMVLO #### The performing lab is in the report. Phosphoruson 04-26-2022 Phosphate [Mass/Vol] 2.9 mg/dL Normal 2.5-4.5 [facility] Comment on above: Performed By: #### H EMDF, BUN3, GLUC3, URIC3, BILF3, FEIBC, PHOS3, MG3, HA1C2, CA3, FK5 #### [address] #### IGMO, IGAO, EBVPO, IGGO, CMVLO #### The performing lab is in the report. Potassiumon 04-26-2022 Potassium [Moles/Vol] 4.5 mmol/L Normal 3.5-5.1 [facility] Comment on above: Performed By: #### H EMDF, BUN3, GLUC3, URIC3, BILF3, FEIBC, PHOS3, MG3, HA1C2, CA3, FK5 #### [address] #### IGMO, IGAO, EBVPO, IGGO, CMVLO #### The performing lab is in the report. Sodiumon 04-26-2022 Sodium [Moles/Vol] 140 mmol/L Normal 135-145 [facility] Comment on above: Performed By: #### H EMDF, BUN3, GLUC3, URIC3, BILF3, FEIBC, PHOS3, MG3, HA1C2, CA3, FK5 #### [address] #### IGMO, IGAO, EBVPO, IGGO, CMVLO #### The performing lab is in the report. Urea Nitrogenon 04-26-2022 Urea nitrogen [Mass/Vol] 14 mg/dL Normal 7-17 [facility] Comment on above: Performed By: #### H EMDF, BUN3, GLUC3, URIC3, BILF3, FEIBC, PHOS3, MG3, HA1C2, CA3, FK5 #### [address] #### IGMO, IGAO, EBVPO, IGGO, CMVLO #### The performing lab is in the report. Uric Acidon 04-26-2022 Urate [Mass/Vol] 8.5 mg/dL High 2.5-6.2 [facility] Comment on above: Performed By: #### H EMDF, BUN3, GLUC3, URIC3, BILF3, FEIBC, PHOS3, MG3, HA1C2, CA3, FK5 #### [address] [address] #### IGMO, IGAO, EBVPO, IGGO, CMVLO #### The performing lab is in the report. Spirometry without bronchodi latoron 03-30-2022 Name: NICK HERNÁNDEZ PatientID: [id number] Gender: Male Birthdate: 1960 Study Date: 03/30/2022 11:07:27 Age: 62 Race: White or Height: 72.0 in, 182.9 cm Weight: 218.0 lbs, 99.1 kg Smoke Status: Never Pack Years: Tbco Prod: Cigarettes Ordering Physician: [id number] Interpreting Physician: [id number] Imaging Science Professor: MITZI Testing Location: [facility] Diagnosis: POST LUNG TRANSPLANT Spirometry Units Pred PreDrug Pre%Pred Post Post%Pred %Change FVC L,btps 5.11 3.69 72. FEV1 L,btps 3.87 2.09 54. FEV1/FVC (%) % 76. 57. 75. BYO39-51% L/s 3.16 0.65 21. FEFmax L/s 9.68 5.22 54. MVV in,btps 131.18 Lung Volumes (Body Box) Units Pred PreDrug Pre%Pred TLC L,btps 7.60 VC L,btps 5.11 IC L,btps 3.87 FRC L,btps 3.73 ERV L,btps 1.24 RV L,btps 2.49 RV/TLC (%) % 33. VTG L,btps RAW H2O/L/s 1.19 SGaw cmH2O/L 0.23 Diffusion (DLCO) Units Pred PreDrug Pre%Pred DLCO ml/min/mmHg,stpd 32.88 DLCOHb ml/min/mmHg,stpd 32.88 VAsb L,btps 7.42 D/VAsb ml/min/mmHg/L,stpd 4.43 D/VAsbHb ml/min/mmHg/L,stpd 4.43 VInsp L Hgb g/dl COHb % Lung Mechanics Units Pred PreDrug Pre%Pred PImax /MIP cmH2O -80.20 PEmax /MEP cmH2O 125.40 [facility]IC[facility] CONSULTANT NOTES Good Patient effort. Consistent results. Best results reported.Calibration check passed with acceptable system performance. The patient performed all pre-test requirements. Spirometry best effort, met acceptability and repeatability guidelines. Pt has sob with increased exertion. [place]pc. [address]- SLIM Tests to perform: [id number] - SPIROMETRY WITHOUT BRONCHODILATOR PHYSICIAN INTERPRETATION Forced expiratory spirogram reveals moderately severe large airways obstructive lung disease. Spirograms are of good quality and do not plateau. The respiratory flow volume loop reveals decreased flows at all volumes consistent with large and small airways obstruction. IMPRESSION 1. Moderate to severe obstruction noted on spirometry. [facility] Mac Garza, - 03/30/2022 Name: NICK HERNÁNDEZ PatientID: [id number] Gender: Male Birthdate: 1960 Study Date: 03/30/2022 11:07:27 Age: 62 Race: White or Height: 72.0 in, 182.9 cm Weight: 218.0 lbs, 99.1 kg Smoke Status: Never Pack Years: Tbco Prod: Cigarettes Ordering Physician: [id number] Interpreting Physician: [id number] Imaging Science Professor: MITZI Testing Location: [facility] Diagnosis: POST LUNG TRANSPLANT Spirometry Units Pred PreDrug Pre%Pred Post Post%Pred %Change FVC L,btps 5.11 3.69 72. FEV1 L,btps 3.87 2.09 54. FEV1/FVC (%) % 76. 57. 75. WQT24-23% L/s 3.16 0.65 21. FEFmax L/s 9.68 5.22 54. MVV in,btps 131.18 Lung Volumes (Body Box) Units Pred PreDrug Pre%Pred TLC L,btps 7.60 VC L,btps 5.11 IC L,btps 3.87 FRC L,btps 3.73 ERV L,btps 1.24 RV L,btps 2.49 RV/TLC (%) % 33. VTG L,btps RAW H2O/L/s 1.19 SGaw cmH2O/L 0.23 Diffusion (DLCO) Units Pred PreDrug Pre%Pred DLCO ml/min/mmHg,stpd 32.88 DLCOHb ml/min/mmHg,stpd 32.88 VAsb L,btps 7.42 D/VAsb ml/min/mmHg/L,stpd 4.43 D/VAsbHb ml/min/mmHg/L,stpd 4.43 VInsp L Hgb g/dl COHb % Lung Mechanics Units Pred PreDrug Pre%Pred PImax /MIP cmH2O -80.20 PEmax /MEP cmH2O 125.40 [facility] [employer]ICING CONSULTANT NOTES Good Patient effort. Consistent results. Best results reported.Calibration check passed with acceptable system performance. The patient performed all pre-test requirements. Spirometry best effort, met acceptability and repeatability guidelines. Pt has sob with increased exertion. Pt has a dry npc. 91845- SLIM Tests to perform: [id number] - SPIROMETRY WITHOUT BRONCHODILATOR PHYSICIAN INTERPRETATION Forced expiratory spirogram reveals moderately severe large airways obstructive lung disease. Spirograms are of good quality and do not plateau. The respiratory flow volume loop reveals decreased flows at all volumes consistent with large and small airways obstruction. IMPRESSION 1. Moderate to severe obstruction noted on spirometry. [employer] Work Phone: Spirometry without bronchodi latorOrdered By: Mac Medina on 03-30-2022 [facility] Work [facility]: CR Hand Complete 3+ Views [place] 03-29-2022 CR Hand Complete 3+ Views Left Patient Name: NICK HERNÁNDEZ Diagnostic Radiology ACCESSION EXAM DATE/TIME PROCEDURE ORDERING PROVIDER [id number] 03/29/2022 21:55 EDT CR Hand Complete 3+ [id number] -BROSCHINSKY, Views Left KORTNIE CPT code 54400 Reason For Exam (CR Hand Complete 3+ Views Left) s/p reduction boxer's fracture Report LEFT HAND: CLINICAL INDICATION: Pain, fracture, status post reduction. TECHNIQUE: PA, Lat, and oblique COMPARISON: Radiographs from earlier today FINDINGS: The study is limited due to an overlying cast. Redemonstration of a distal fifth metacarpal fracture with slightly improved but persistent dorsal angulation. No other significant interval change. Report Dictated on Final Dictated: 03/29/2022 10:01 pm Dictating Physician: MD YOUNG NICHOLAS Signed Date and Time: 03/29/2022 10:02 pm Signed by: MD YOUNG NICHOLAS Transcribed Date and Time: 03/29/2022 10:01 Normal [facility] CR Hand Complete 3+ Views Left Patient Name: NICK HERNÁNDEZ Diagnostic Radiology ACCESSION EXAM DATE/TIME PROCEDURE ORDERING PROVIDER [id number] 03/29/2022 16:03 EDT CR Hand Complete 3+ MD CLARK SCOTT ALAN Views Left CPT code 06036 Reason For Exam (CR Hand Complete 3+ Views Left) fall, left 5th mcp pain, deformity Report LEFT HAND, 3 VIEWS: INDICATION: Fall. Left hand pain. COMPARISON: No previous studies are available for comparison. PA, lateral and oblique views of the left hand were obtained. Images show an impacted comminuted angled fracture of the distal aspect of the fifth metacarpal. No other acute fractures. Limited evaluation of the digits due to overlapping structures. Fixation screw noted in the proximal phalanx of the thumb. Bony fusion of the carpal bones noted. This finding is unchanged from a prior wrist examination dated 09/01/2021. IMPRESSION: Acute comminuted fracture of the distal aspect of the fifth metacarpal. Report Dictated on Final Dictated: 03/29/2022 4:31 pm Dictating Physician: MD DURON LAURA Signed Date and Time: 03/29/2022 4:33 pm Signed by: MD DURON LAURA Transcribed Date and Time: 03/29/2022 4:31 [facility] CR Humerus 2+ Views Lefton 0 03-29-2022 CR Humerus 2+ Views Left Patient Name: NICK LENZ Diagnostic Radiology ACCESSION EXAM DATE/TIME PROCEDURE ORDERING PROVIDER [id number] 03/29/2022 20:20 EDT CR Humerus 2+ Views Left MD HEREDIA LORNA CPT code 96431 Reason For Exam (CR Humerus 2+ Views Left) fall, pain Report RIGHT WRIST 3 VIEWS CLINICAL INDICATION: fall, pain TECHNIQUE: 3 views of the right wrist. COMPARISON: None. FINDINGS: No acute fracture or dislocation. Possible old fracture deformity and periosteal thickening in the distal ulnar metaphysis. Considerable degenerative change in the thumb MCP joint. Soft tissues grossly unremarkable. IMPRESSION: 1. No acute osseous abnormality. 2. Degenerative change. LEFT HUMERUS 2 VIEWS CLINICAL INDICATION: fall, pain TECHNIQUE: 2 views of the left humerus. COMPARISON: None. FINDINGS: No acute fracture or dislocation. Soft tissues grossly unremarkable. IMPRESSION: 1. No acute osseous abnormality. Diagnostic Radiology Report Report Dictated on Workstation: SUSAN Final Dictated: 03/29/2022 8:32 pm Dictating Physician: MD SHORE WENDELL Signed Date and Time: 03/29/2022 8:34 pm Signed by: MD SHORE WENDELL Transcribed Date and Time: 03/29/2022 8:32 Normal [facility] CR Wrist Complete 3 Views [facility] 03-29-2022 CR Wrist Complete 3 Views Right Patient Name: NICK HERNÁNDEZ Diagnostic Radiology ACCESSION EXAM DATE/TIME PROCEDURE ORDERING PROVIDER [id number] 03/29/2022 20:20 EDT CR Wrist Complete 3 HEREDIAMD LORNA Views Right CPT code 73165 Reason For Exam (CR Wrist Complete 3 Views Right) fall, pain Report RIGHT WRIST 3 VIEWS CLINICAL INDICATION: fall, pain TECHNIQUE: 3 views of the right wrist. COMPARISON: None. FINDINGS: No acute fracture or dislocation. Possible old fracture deformity and periosteal thickening in the distal ulnar metaphysis. Considerable degenerative change in the thumb MCP joint. Soft tissues grossly unremarkable. IMPRESSION: 1. No acute osseous abnormality. 2. Degenerative change. LEFT HUMERUS 2 VIEWS CLINICAL INDICATION: fall, pain TECHNIQUE: 2 views of the left humerus. COMPARISON: None. FINDINGS: No acute fracture or dislocation. Soft tissues grossly unremarkable. IMPRESSION: 1. No acute osseous abnormality. Diagnostic Radiology Report Report Dictated on Workstation: SUSAN Final Dictated: 03/29/2022 8:32 pm Dictating Physician: MD SHORE WENDELL Signed Date and Time: 03/29/2022 8:34 pm Signed by: MD SHORE WENDELL Transcribed Date and Time: 03/29/2022 8:32 Normal [facility] CT CERVICAL SPINE WO KATLIN Ton 03-29-2022 Patient Name: NICK BANKS Computed Tomography ACCESSION EXAM DATE/TIME PROCEDURE ORDERING PROVIDER [id number] 03/29/2022 21:[address] Spine Cervical w/o [id number] -DIBELLO, JOSSUE Contrast CPT code 68771 Reason For Exam (CT Spine Cervical w/o Contrast) fall, pain Report CT BRAIN AND CERVICAL SPINE WITHOUT CONTRAST CLINICAL INDICATION: fall on thinner TECHNIQUE: CT scan of the brain and cervical spine without IV contrast. Multiplanar reformations. COMPARISON: Earlier on same date. FINDINGS: Brain: No parenchymal mass, mass effect, hemorrhage, midline shift or hydrocephalus. No evidence of acute cortical infarct. No abnormal, extra-axial fluid or air collection. Mild, patchy low density in the periventricular and subcortical white matter is nonspecific, but may relate to chronic small vessel ischemic change. Old lacunar infarct change in right caudate nucleus head region. Age-related volume loss. Osseous calvarium grossly intact. Cervical spine: Mild, multilevel degenerative disc disease and spondylosis. No acute compression deformity or gross malalignment of cervical vertebral bodies. No acute fracture. No acute, osseous central spinal canal encroachment. Paraspinal soft tissues grossly unremarkable. IMPRESSION: 1. No acute intracranial findings. Chronic ischemic and atrophic changes. 2. No acute compression deformity or apparent fracture in the cervical spine. Degenerative spondylosis. Computed Tomography Report Report Dictated on Workstation: [email or web address] --- Final --- Dictated: 03/29/2022 9:33 pm Dictating Physician: MD SHORE WENDELL Signed Date and Time: 03/29/2022 9:37 pm Signed by: MD SHORE WENDELL Transcribed Date and Time: 03/29/2022 9:33 [facility] Tyler Shore MD - 03/29/2022 Patient Name: NICK HERNÁNDEZ Computed Tomography ACCESSION EXAM DATE/TIME PROCEDURE ORDERING PROVIDER [id number] 03/29/2022 21:[address] Spine Cervical w/o [id number] -DIBELLO, JOSSUE Contrast CPT code 77303 Reason For Exam (CT Spine Cervical w/o Contrast) fall, pain Report CT BRAIN AND CERVICAL SPINE WITHOUT CONTRAST CLINICAL INDICATION: fall on thinner TECHNIQUE: CT scan of the brain and cervical spine without IV contrast. Multiplanar reformations. COMPARISON: Earlier on same date. FINDINGS: Brain: No parenchymal mass, mass effect, hemorrhage, midline shift or hydrocephalus. No evidence of acute cortical infarct. No abnormal, extra-axial fluid or air collection. Mild, patchy low density in the periventricular and subcortical white matter is nonspecific, but may relate to chronic small vessel ischemic change. Old lacunar infarct change in right caudate nucleus head region. Age-related volume loss. Osseous calvarium grossly intact. Cervical spine: Mild, multilevel degenerative disc disease and spondylosis. No acute compression deformity or gross malalignment of cervical vertebral bodies. No acute fracture. No acute, osseous central spinal canal encroachment. Paraspinal soft tissues grossly unremarkable. IMPRESSION: 1. No acute intracranial findings. Chronic ischemic and atrophic changes. 2. No acute compression deformity or apparent fracture in the cervical spine. Degenerative spondylosis. Computed Tomography Report Report Dictated on Workstation: SUSAN --- Final --- Dictated: 03/29/2022 9:33 pm Dictating Physician: MD SHORE WENDELL Signed Date and Time: 03/29/2022 9:37 pm Signed by: MD SHORE WENDELL Transcribed Date and Time: 03/29/2022 9:33 [facility] Work Phone: [facility] Work Phone: CT HEAD WO CONTRASTon 2021 Patient Name: NICK BANKS [facility]#: [id number] Computed Tomography ACCESSION EXAM DATE/TIME PROCEDURE ORDERING PROVIDER [id number] 03/29/2022 21:[address] Head or Brain w/o [id number] -JOSSUE WYNN Contrast CPT code 27653 Reason For Exam (CT Head or Brain w/o Contrast) fall on thinner Report CT BRAIN AND CERVICAL SPINE WITHOUT CONTRAST CLINICAL INDICATION: fall on thinner TECHNIQUE: CT scan of the brain and cervical spine without IV contrast. Multiplanar reformations. COMPARISON: Earlier on same date. FINDINGS: Brain: No parenchymal mass, mass effect, hemorrhage, midline shift or hydrocephalus. No evidence of acute cortical infarct. No abnormal, extra-axial fluid or air collection. Mild, patchy low density in the periventricular and subcortical white matter is nonspecific, but may relate to chronic small vessel ischemic change. Old lacunar infarct change in right caudate nucleus head region. Age-related volume loss. Osseous calvarium grossly intact. Cervical spine: Mild, multilevel degenerative disc disease and spondylosis. No acute compression deformity or gross malalignment of cervical vertebral bodies. No acute fracture. No acute, osseous central spinal canal encroachment. Paraspinal soft tissues grossly unremarkable. IMPRESSION: 1. No acute intracranial findings. Chronic ischemic and atrophic changes. 2. No acute compression deformity or apparent fracture in the cervical spine. Degenerative spondylosis. Computed Tomography Report Report Dictated on Workstation: SUSAN --- Final --- Dictated: 03/29/2022 9:33 pm Dictating Physician: MD SHORE WENDELL Signed Date and Time: 03/29/2022 9:37 pm Signed by: MD SHORE WENDELL Transcribed Date and Time: 03/29/2022 9:33 [facility] Tyler Shore MD - 03/29/2022 Patient Name: NICK HERNÁNDEZ Computed Tomography ACCESSION EXAM DATE/TIME PROCEDURE ORDERING PROVIDER [id number] 03/29/2022 21:[address] Head or Brain w/o [id number] -JOSSUE WYNN Contrast CPT code 21147 Reason For Exam (CT Head or Brain w/o Contrast) fall on thinner Report CT BRAIN AND CERVICAL SPINE WITHOUT CONTRAST CLINICAL INDICATION: fall on thinner TECHNIQUE: CT scan of the brain and cervical spine without IV contrast. Multiplanar reformations. COMPARISON: Earlier on same date. FINDINGS: Brain: No parenchymal mass, mass effect, hemorrhage, midline shift or hydrocephalus. No evidence of acute cortical infarct. No abnormal, extra-axial fluid or air collection. Mild, patchy low density in the periventricular and subcortical white matter is nonspecific, but may relate to chronic small vessel ischemic change. Old lacunar infarct change in right caudate nucleus head region. Age-related volume loss. Osseous calvarium grossly intact. Cervical spine: Mild, multilevel degenerative disc disease and spondylosis. No acute compression deformity or gross malalignment of cervical vertebral bodies. No acute fracture. No acute, osseous central spinal canal encroachment. Paraspinal soft tissues grossly unremarkable. IMPRESSION: 1. No acute intracranial findings. Chronic ischemic and atrophic changes. 2. No acute compression deformity or apparent fracture in the cervical spine. Degenerative spondylosis. Computed Tomography Report Report Dictated on Workstation: [email or web address] --- Final --- Dictated: 03/29/2022 9:33 pm Dictating Physician: MD SHORE WENDELL Signed Date and Time: 03/29/2022 9:37 pm Signed by: MD SHORE WENDELL Transcribed Date and Time: 03/29/2022 9:33 [facility] Work [facility]: [phone] [facility] Work Phone: [phone] Patient Name: NICK BANKS Computed Tomography ACCESSION EXAM DATE/TIME PROCEDURE ORDERING PROVIDER [id number] 03/29/2022 15:[address] Head or Brain w/o MD CLARK SCOTT ALAN Contrast CPT code 43915 Reason For Exam (CT Head or Brain w/o Contrast) fall, eyebrow laceration, h/a Report CT HEAD WITHOUT CONTRAST CLINICAL HISTORY: fall, eyebrow laceration, h/a COMPARISON: None TECHNIQUE: Helical CT of the brain without contrast. FINDINGS: Acute Findings: No hemorrhage, mass, or infarct. Chronic Changes: Remote lacunar infarct in the head of the right caudate nucleus. Atherosclerotic calcification of the carotid siphons. Ventricles and sulci: Within normal limits for age. Other: No visualized fractures. IMPRESSION: No intracranial traumatic injuries. Report Dictated on --- Final --- Dictated: 03/29/2022 4:09 pm Dictating Physician: MD MUNOZ THOMAS Signed Date and Time: 03/29/2022 4:10 pm Signed by: MD MUNOZ THOMAS Transcribed Date and Time: 03/29/2022 4:09 [facility] Tu Munoz M D - 03/29/2022 Patient Name: NICK HERNÁNDEZ Computed Tomography ACCESSION EXAM DATE/TIME PROCEDURE ORDERING PROVIDER [id number] 03/29/2022 15:[address] Head or Brain w/o MD CLARK SCOTT ALAN Contrast CPT code 55089 Reason For Exam (CT Head or Brain w/o Contrast) fall, eyebrow laceration, h/a Report CT HEAD WITHOUT CONTRAST CLINICAL HISTORY: fall, eyebrow laceration, h/a COMPARISON: None TECHNIQUE: Helical CT of the brain without contrast. FINDINGS: Acute Findings: No hemorrhage, mass, or infarct. Chronic Changes: Remote lacunar infarct in the head of the right caudate nucleus. Atherosclerotic calcification of the carotid siphons. Ventricles and sulci: Within normal limits for age. Other: No visualized fractures. IMPRESSION: No intracranial traumatic injuries. Report Dictated on --- Final --- Dictated: 03/29/2022 4:09 pm Dictating Physician: MD MUNOZ THOMAS Signed Date and Time: 03/29/2022 4:10 pm Signed by: MD MUNOZ THOMAS Transcribed Date and Time: 03/29/2022 4:09 [facility] Work Phone: CT HEAD WO CONTRASTOrdered B y: Tu Munoz on 03-29-2022 [facility] Work Phone: CT Head or Brain w/o Contras ton 03-29-2022 CT Head or Brain w/o Contrast Patient Name: NICK HERNÁNDEZ [facility]#: [id number] Computed Tomography ACCESSION EXAM DATE/TIME PROCEDURE ORDERING PROVIDER [id number] 03/29/2022 21:[address] Head or Brain w/o [id number] -JOSSUE WYNN Contrast CPT code 17248 Reason For Exam (CT Head or Brain w/o Contrast) fall on thinner Report CT BRAIN AND CERVICAL SPINE WITHOUT CONTRAST CLINICAL INDICATION: fall on thinner TECHNIQUE: CT scan of the brain and cervical spine without IV contrast. Multiplanar reformations. COMPARISON: Earlier on same date. FINDINGS: Brain: No parenchymal mass, mass effect, hemorrhage, midline shift or hydrocephalus. No evidence of acute cortical infarct. No abnormal, extra-axial fluid or air collection. Mild, patchy low density in the periventricular and subcortical white matter is nonspecific, but may relate to chronic small vessel ischemic change. Old lacunar infarct change in right caudate nucleus head region. Age-related volume loss. Osseous calvarium grossly intact. Cervical spine: Mild, multilevel degenerative disc disease and spondylosis. No acute compression deformity or gross malalignment of cervical vertebral bodies. No acute fracture. No acute, osseous central spinal canal encroachment. Paraspinal soft tissues grossly unremarkable. IMPRESSION: 1. No acute intracranial findings. Chronic ischemic and atrophic changes. 2. No acute compression deformity or apparent fracture in the cervical spine. Degenerative spondylosis. Computed Tomography Report Report Dictated on Workstation: SUSAN Final Dictated: 03/29/2022 9:33 pm Dictating Physician: MD SHORE WENDELL Signed Date and Time: 03/29/2022 9:37 pm Signed by: MD SHORE WENDELL Transcribed Date and Time: 03/29/2022 9:33 Normal [facility] CT Head or Brain w/o Contrast [id number]ography ACCESSION EXAM DATE/TIME PROCEDURE ORDERING PROVIDER [id number] 03/29/2022 15:[address] Head or Brain w/o MD EDUARDO, VELIA TALLEY Contrast CPT code 85141 Reason For Exam (CT Head or Brain w/o Contrast) fall, eyebrow laceration, h/a Report CT HEAD WITHOUT CONTRAST CLINICAL HISTORY: fall, eyebrow laceration, h/a COMPARISON: None TECHNIQUE: Helical CT of the brain without contrast. FINDINGS: Acute Findings: No hemorrhage, mass, or infarct. Chronic Changes: Remote lacunar infarct in the head of the right caudate nucleus. Atherosclerotic calcification of the carotid siphons. Ventricles and sulci: Within normal limits for age. Other: No visualized fractures. IMPRESSION: No intracranial traumatic injuries. Report Dictated on Final Dictated: 03/29/2022 4:09 pm Dictating Physician: MD MUNOZ THOMAS Signed Date and Time: 03/29/2022 4:10 pm Signed by: MD MUNOZ THOMAS Transcribed Date and Time: 03/29/2022 4:09 Normal [facility] CT Spine Cervical w/o Contra stogaetano 03-29-2022 CT Spine Cervical w/o Contrast [facility]: [id number] Computed Tomography ACCESSION EXAM DATE/TIME PROCEDURE ORDERING PROVIDER [id number] 03/29/2022 21:[address] Spine Cervical w/o [id number] -JOSSUE WYNN Contrast CPT code 00447 Reason For Exam (CT Spine Cervical w/o Contrast) fall, pain Report CT BRAIN AND CERVICAL SPINE WITHOUT CONTRAST CLINICAL INDICATION: fall on thinner TECHNIQUE: CT scan of the brain and cervical spine without IV contrast. Multiplanar reformations. COMPARISON: Earlier on same date. FINDINGS: Brain: No parenchymal mass, mass effect, hemorrhage, midline shift or hydrocephalus. No evidence of acute cortical infarct. No abnormal, extra-axial fluid or air collection. Mild, patchy low density in the periventricular and subcortical white matter is nonspecific, but may relate to chronic small vessel ischemic change. Old lacunar infarct change in right caudate nucleus head region. Age-related volume loss. Osseous calvarium grossly intact. Cervical spine: Mild, multilevel degenerative disc disease and spondylosis. No acute compression deformity or gross malalignment of cervical vertebral bodies. No acute fracture. No acute, osseous central spinal canal encroachment. Paraspinal soft tissues grossly unremarkable. IMPRESSION: 1. No acute intracranial findings. Chronic ischemic and atrophic changes. 2. No acute compression deformity or apparent fracture in the cervical spine. Degenerative spondylosis. Computed Tomography Report Report Dictated on Workstation: SUSAN Final Dictated: 03/29/2022 9:33 pm Dictating Physician: MD SHORE WENDELL Signed Date and Time: 03/29/2022 9:37 pm Signed by: MD SHORE WENDELL Transcribed Date and Time: 03/29/2022 9:33 Normal [facility] ED Provider Noteon ED Provider Note I did not participat e in the care of this patient. Lala Weiner PA-C 03/29/22 7750 Normal [facility] Patient: Nick Hernández : 1960 Date of Evaluation: 03/29/2022 ED ROSENDA Provider: ALICIA MARIE, INTERIOR HORTICULTURIST - FINISHER BRUSH EDcare was supervised by Dr. Clark who independently examined and evaluated the patient. Please see their attestation note for further details. Chief Complaint Chief Complaint Patient presents with ? Laceration Pt tripped over tree root. Has left eyelid laceration that is deep, Positive LOC, left forearm road rash, left hand swelling. Pt has a bad JOEL. Pt on ASA but no others thinners. Heart lung transplant pt. Pt had eye surgery March 19 and now vision is blurry on the surgical eye. Pt A & O X 3 but dizzy, nauseaus, with a pounding JOEL. CHICKALOON I was wearing a mask for the entirety of this encounter. Does this patient come from an ECF, SNF, Rehab, Chcf or other Congregate setting: no (If yes to above patient needs a Covid-19 test) Nick Hernández is a 62 y.o. male whopresents to the emergency department for evaluation of left hand pain and head laceration. Patient states he was on his way to go [employer] and tripped on a tree root and hit a pine tree with his forehead and left hand. He has pain to the left lateral hand and is unable to fully straighten his pinky. He has a laceration to the left eyebrow. States he recently had cataract surgery to the left eye a month ago and his vision is slightly blurry. States his tetanus vaccine is up-to-date. History of bilateral lung transplant about 3 years ago. States he has been doing really well in recovery from the lung transplant. He denies being on blood thinners. ROS: Review of Systems Constitutional: Negative. HENT: Positive for facial swelling. Eyes: Negative. Respiratory: Negative. Cardiovascular: Negative. Gastrointestinal: Negative. Genitourinary: Negative. Musculoskeletal: Positive for arthralgias. Skin: Positive for wound. Neurological: Negative. Hematological: Negative. Psychiatric/Behavioral : Negative. Past History Past Medical History: Diagnosis Date ? Bladder stones ? CAD (coronary artery disease) 07/14/2018 non-obstructive ? Chronic back pain ? Diabetes mellitus (HCC) ? History of blood transfusion ? Hyperlipidemia ? Hypertension ? Lung transplant status, bilateral (HCC) Past Surgical History: Procedure Laterality Date ? BACK SURGERY Kyphoplasty ? CARDIAC CATHETERIZATION 06/2018 RCA diffuse 30%, LAD prox diffuse 30 %, LCX mid 30-40% ? CYSTOSCOPY 08/14/2019 CYSTOSCOPY, HOLMIUM LASER LITHOTRIPSY BLADDER STONE ? DIAGNOSTIC CARDIAC CORPORATE WELLNESS COORDINATOR PROCEDURE 07/14/2018 ? FRACTURE SURGERY Left 1981 left wrist fusion with plate and hip graft ? JOINT REPLACEMENT Right ? LITHOTRIPSY Left 12/16/2020 ? LUNG TRANSPLANT, DOUBLE ? ROTATOR CUFF REPAIR Right ? WRIST FUSION Left Social History Socioeconomic History ? Marital status: Spouse name: None ? Number of children: None ? Years of education: None ? Highest education level: None Occupational History ? None Tobacco Use ? Smoking status: Former Smoker Years: 20.00 Types: Cigarettes Quit date: 08/13/2014 Years since quittin.6 ? Smokeless tobacco: Former User Vaping Use ? Vaping Use: Never used Substance and Sexual Activity ? Alcohol use: Never ? Drug use: Never ? Sexual activity: None Other Topics Concern ? None Social History Narrative ? None Social Determinants of Health Financial Resource Strain: ? Difficulty of Paying Living Expenses: Not on file Food Insecurity: ? Worried About Running Out of Food in the Last Year: Not on file ? Ran Out of Food in the Last Year: Not on file Transportation Needs: ? Lack of Transportation (Medical): Not on file ? Lack of Transportation (Non-Medical): Not on file Physical Activity: ? Days of Exercise per Week: Not on file ? Minutes of Exercise per Session: Not on file Stress: ? Feeling of Stress : Not on file Social Connections: ? Frequency of Communication with Friends and Family: Not on file ? Frequency of Social Gatherings with Friends and Family: Not on file ? Attends Muslim Services: Not on file ? Active Member of Clubs or Organizations: Not on file ? Attends Club or Organization Meetings: Not on file ? Marital Status: Not on file Intimate Partner Violence: ? Fear of Current or Ex-Partner: Not on file ? Emotionally Abused: Not on file ? Physically Abused: Not on file ? Sexually Abused: Not on file Housing Stability: ? Unable to Pay for Housing in the Last Year: Not on file ? Number of Places Lived in the Last Year: Not on file ? Unstable Housing in the Last Year: Not on file Medications/Allergies Previous Medications ALENDRONATE (FOSAMAX) 70 MG TABLET Take 70 mg by mouth AMLODIPINE (NORVASC) 5 MG TABLET Take 5 mg by mouth daily ASPIRIN 81 MG CHEWABLE TABLET Take 81 mg by mouth AZITHROMYCIN (ZITHROMAX) 250 (more content not included)... Normal [facility] ED Provider Note Emergency Department Encounter [facility] EMERGENCY DEPT Patient: Nick Hernández : 1960 Date of Evaluation: 03/29/2022 ED Provider: Velia Clark MD I saw the patient as the Clinician in Triage and performed a brief history and physical exam, established acuity, and ordered appropriate tests to develop basic plan of care. Patient will be seen by ROSENDA, resident and/or my physician partner who will evaluate the patient. If seen by the ROSENDA I will manage the patient in a supervisory role and will be available for co-management and this will serve as my ROSENDA Supervisory note and shared attestation. I did perform a substantive portion of the visit including all aspects of the Medical Decision Making. Brief HPI: In brief, Nick Hernández is a 62 y.o. male that presents for chief complaint of a cut to his left eyebrow and left hand pain. Patient reportedly tripped and fell. He denies being on any antiplatelets or coag medications. Denies neck pain. Focused Physical exam: 62-year-old male. Head normocephalic. Left eyebrow laceration. Normal extra eye movement. Midface stable. No cervical spinal tenderness. Left fifth metacarpal deformity with associated ecchymoses. No wrist tenderness. Sensation intact light touch in the median ulnar, radial nerve distribution. Capillary refill intact. Plan: CT head, left hand x-ray. Plan for repair. Tetanus up-to-date. Please see subsequent provider note for further details and disposition Comment: Please note this report has been produced using speech recognition software and may contain errors related to that system including errors in grammar, punctuation, and spelling as well as words and phrases that may be inappropriate. If there are any questions or concerns please feel free to contact the dictating provider for clarification Velia Clark MD [employer] Velia Clark MD 03/29/22 1529 [facility] No Panel Informationon 03-29 Radiology Study observation (narrative) [facility] Work Phone: Radiology Study observation (narrative) [facility] Work Phone: XR HAND LEFT (MIN 3 VIEWS)on 03-29-2022 Patient Name: NICK BANKS Diagnostic Radiology ACCESSION EXAM DATE/TIME PROCEDURE ORDERING PROVIDER [id number] 03/29/2022 21:55 EDT CR Hand Complete 3+ [id number] -BROSCHINSKY, Views Left KORTNIE CPT code 76530 Reason For Exam (CR Hand Complete 3+ Views Left) s/p reduction boxer's fracture Report LEFT HAND: CLINICAL INDICATION: Pain, fracture, status post reduction. TECHNIQUE: PA, Lat, and oblique COMPARISON: Radiographs from earlier today FINDINGS: The study is limited due to an overlying cast. Redemonstration of a distal fifth metacarpal fracture with slightly improved but persistent dorsal angulation. No other significant interval change. Report Dictated on --- Final --- Dictated: 03/29/2022 10:01 pm Dictating Physician: MD YOUNG NICHOLAS Signed Date and Time: 03/29/2022 10:02 pm Signed by: MD YOUNG NICHOLAS Transcribed Date and Time: 03/29/2022 10:01 [facility] Galindo Young MD - 03/29/2022 Patient Name: NICK HERNÁNDEZ Diagnostic Radiology ACCESSION EXAM DATE/TIME PROCEDURE ORDERING PROVIDER [id number] 03/29/2022 21:55 EDT CR Hand Complete 3+ [id number] -BROSCHINSKY, Views Left KORTNIE CPT code 98653 Reason For Exam (CR Hand Complete 3+ Views Left) s/p reduction boxer's fracture Report LEFT HAND: CLINICAL INDICATION: Pain, fracture, status post reduction. TECHNIQUE: PA, Lat, and oblique COMPARISON: Radiographs from earlier today FINDINGS: The study is limited due to an overlying cast. Redemonstration of a distal fifth metacarpal fracture with slightly improved but persistent dorsal angulation. No other significant interval change. Report Dictated on --- Final --- Dictated: 03/29/2022 10:01 pm Dictating Physician: MD YOUNG NICHOLAS Signed Date and Time: 03/29/2022 10:02 pm Signed by: MD YOUNG NICHOLAS Transcribed Date and Time: 03/29/2022 10:01 [facility] Work Phone: [id number] Diagnostic Radiology ACCESSION EXAM DATE/TIME PROCEDURE ORDERING PROVIDER [id number] 03/29/2022 16:03 EDT CR Hand Complete 3+ MD CLARK SCOTT ALAN Views Left CPT code 96716 Reason For Exam (CR Hand Complete 3+ Views Left) fall, left 5th mcp pain, deformity Report LEFT HAND, 3 VIEWS: INDICATION: Fall. Left hand pain. COMPARISON: No previous studies are available for comparison. PA, lateral and oblique views of the left hand were obtained. Images show an impacted comminuted angled fracture of the distal aspect of the fifth metacarpal. No other acute fractures. Limited evaluation of the digits due to overlapping structures. Fixation screw noted in the proximal phalanx of the thumb. Bony fusion of the carpal bones noted. This finding is unchanged from a prior wrist examination dated 09/01/2021. IMPRESSION: Acute comminuted fracture of the distal aspect of the fifth metacarpal. Report Dictated on --- Final --- Dictated: 03/29/2022 4:31 pm Dictating Physician: MD DURON LAURA Signed Date and Time: 03/29/2022 4:33 pm Signed by: MD DURON LAURA Transcribed Date and Time: 03/29/2022 4:31 [facility] Bettye Duron MD - 03/29/2022 [facility] Name[id number] Diagnostic Radiology ACCESSION EXAM DATE/TIME PROCEDURE ORDERING PROVIDER [id number] 03/29/2022 16:03 EDT CR Hand Complete 3+ MD CLARK SCOTT ALAN Views Left CPT code 76903 Reason For Exam (CR Hand Complete 3+ Views Left) fall, left 5th mcp pain, deformity Report LEFT HAND, 3 VIEWS: INDICATION: Fall. Left hand pain. COMPARISON: No previous studies are available for comparison. PA, lateral and oblique views of the left hand were obtained. Images show an impacted comminuted angled fracture of the distal aspect of the fifth metacarpal. No other acute fractures. Limited evaluation of the digits due to overlapping structures. Fixation screw noted in the proximal phalanx of the thumb. Bony fusion of the carpal bones noted. This finding is unchanged from a prior wrist examination dated 09/01/2021. IMPRESSION: Acute comminuted fracture of the distal aspect of the fifth metacarpal. Report Dictated on --- Final --- Dictated: 03/29/2022 4:31 pm Dictating Physician: MD DURON LAURA Signed Date and Time: 03/29/2022 4:33 pm Signed by: MD DURON LAURA Transcribed Date and Time: 03/29/2022 4:31 [facility] Work [facility]: XR HAND LEFT (MIN 3 VIEWS)Or dered By: Galindo Young on 03-29-2022 [facility] Work Phone: XR HAND LEFT (MIN 3 VIEWS)Or dered By: Bettye Duron on 03-29-2022 [facility] Work Phone: XR HUMERUS LEFT (MIN 2 VIEWS )on 03-29-2022 Patient Name: NICK BANKS Diagnostic Radiology ACCESSION EXAM DATE/TIME PROCEDURE ORDERING PROVIDER [id number] 03/29/2022 20:20 EDT CR Humerus 2+ Views Left MD HEREDIA LORNA CPT code 45984 Reason For Exam (CR Humerus 2+ Views Left) fall, pain Report RIGHT WRIST 3 VIEWS CLINICAL INDICATION: fall, pain TECHNIQUE: 3 views of the right wrist. COMPARISON: None. FINDINGS: No acute fracture or dislocation. Possible old fracture deformity and periosteal thickening in the distal ulnar metaphysis. Considerable degenerative change in the thumb MCP joint. Soft tissues grossly unremarkable. IMPRESSION: 1. No acute osseous abnormality. 2. Degenerative change. LEFT HUMERUS 2 VIEWS CLINICAL INDICATION: fall, pain TECHNIQUE: 2 views of the left humerus. COMPARISON: None. FINDINGS: No acute fracture or dislocation. Soft tissues grossly unremarkable. IMPRESSION: 1. No acute osseous abnormality. Diagnostic Radiology Report Report Dictated on Workstation: SUSAN --- Final --- Dictated: 03/29/2022 8:32 pm Dictating Physician: MD SHORE WENDELL Signed Date and Time: 03/29/2022 8:34 pm Signed by: MD SHORE WENDELL Transcribed Date and Time: 03/29/2022 8:32 [facility] Tyler Shore MD - 03/29/2022 Patient Name: NICK HERNÁNDEZ Diagnostic Radiology ACCESSION EXAM DATE/TIME PROCEDURE ORDERING PROVIDER [id number] 03/29/2022 20:20 EDT CR Humerus 2+ Views Left MD HEREDIA LORNA CPT code 81125 Reason For Exam (CR Humerus 2+ Views Left) fall, pain Report RIGHT WRIST 3 VIEWS CLINICAL INDICATION: fall, pain TECHNIQUE: 3 views of the right wrist. COMPARISON: None. FINDINGS: No acute fracture or dislocation. Possible old fracture deformity and periosteal thickening in the distal ulnar metaphysis. Considerable degenerative change in the thumb MCP joint. Soft tissues grossly unremarkable. IMPRESSION: 1. No acute osseous abnormality. 2. Degenerative change. LEFT HUMERUS 2 VIEWS CLINICAL INDICATION: fall, pain TECHNIQUE: 2 views of the left humerus. COMPARISON: None. FINDINGS: No acute fracture or dislocation. Soft tissues grossly unremarkable. IMPRESSION: 1. No acute osseous abnormality. Diagnostic Radiology Report Report Dictated on Workstation: SUSAN --- Final --- Dictated: 03/29/2022 8:32 pm Dictating Physician: MD SHORE WENDELL Signed Date and Time: 03/29/2022 8:34 pm Signed by: MD SHORE WENDELL Transcribed Date and Time: 03/29/2022 8:32 [facility]: [facility] Work Phone: XR WRIST RIGHT 3 VWon 2021 Patient Name: NICK BANKS Diagnostic Radiology ACCESSION EXAM DATE/TIME PROCEDURE ORDERING PROVIDER [id number] 03/29/2022 20:20 EDT CR Wrist Complete 3 MD HEREDIA LORNA Views Right CPT code 39138 Reason For Exam (CR Wrist Complete 3 Views Right) fall, pain Report RIGHT WRIST 3 VIEWS CLINICAL INDICATION: fall, pain TECHNIQUE: 3 views of the right wrist. COMPARISON: None. FINDINGS: No acute fracture or dislocation. Possible old fracture deformity and periosteal thickening in the distal ulnar metaphysis. Considerable degenerative change in the thumb MCP joint. Soft tissues grossly unremarkable. IMPRESSION: 1. No acute osseous abnormality. 2. Degenerative change. LEFT HUMERUS 2 VIEWS CLINICAL INDICATION: fall, pain TECHNIQUE: 2 views of the left humerus. COMPARISON: None. FINDINGS: No acute fracture or dislocation. Soft tissues grossly unremarkable. IMPRESSION: 1. No acute osseous abnormality. Diagnostic Radiology Report Report Dictated on Workstation: SUSAN --- Final --- Dictated: 03/29/2022 8:32 pm Dictating Physician: MD SHORE WENDELL Signed Date and Time: 03/29/2022 8:34 pm Signed by: MD SHORE WENDELL Transcribed Date and Time: 03/29/2022 8:32 [facility] Tyler Shore MD - 03/29/2022 Patient Name: NICK HERNÁNDEZ Diagnostic Radiology ACCESSION EXAM DATE/TIME PROCEDURE ORDERING PROVIDER [id number] 03/29/2022 20:20 EDT CR Wrist Complete 3 MD HEREDIA LORNA Views Right CPT code 52119 Reason For Exam (CR Wrist Complete 3 Views Right) fall, pain Report RIGHT WRIST 3 VIEWS CLINICAL INDICATION: fall, pain TECHNIQUE: 3 views of the right wrist. COMPARISON: None. FINDINGS: No acute fracture or dislocation. Possible old fracture deformity and periosteal thickening in the distal ulnar metaphysis. Considerable degenerative change in the thumb MCP joint. Soft tissues grossly unremarkable. IMPRESSION: 1. No acute osseous abnormality. 2. Degenerative change. LEFT HUMERUS 2 VIEWS CLINICAL INDICATION: fall, pain TECHNIQUE: 2 views of the left humerus. COMPARISON: None. FINDINGS: No acute fracture or dislocation. Soft tissues grossly unremarkable. IMPRESSION: 1. No acute osseous abnormality. Diagnostic Radiology Report Report Dictated on Workstation: SUSAN --- Final --- Dictated: 03/29/2022 8:32 pm Dictating Physician: MD SHORE WENDELL Signed Date and Time: 03/29/2022 8:34 pm Signed by: MD SHORE WENDELL Transcribed Date and Time: 03/29/2022 8:32 [facility] Work Phone: XR WRIST RIGHT 3 VWOrdered B y: Tyler Shore on 03-29-2022 [facility] Work [facility]: CMV IgM Abon 03-05-2022 CMV IgM Ab < 8.0 Normal <=29.9 [facility] Comment on above: Result Comment: INTE RPRETIVE INFORMATION: Cytomegalovirus Antibody, IgM 29.9 AU/mL or Less ....... Not Detected 30.0-34.9 AU/mL........... Indeterminate-Repeat testing in 10-14 days may be helpful. 35.0 AU/mL or Greater .... Detected-IgM antibody to CMV detected which may indicate a current or recent infection. However, low levels of IgM antibodies may occasionally persist for more than 12 months post-infection. CMV serology is not useful for the evaluation of active or reactivated infection in immunocompromised patients. Molecular diagnostic tests (i.e. PCR)are preferred in these cases. This test should not be used for blood donor screening, associated re-entry protocols, or for screening Human Cell, Tissues and Cellular and Tissue-Based Products (HCT/P). Performed By: [facility] [address] [place] [id number] Airplane Technician: Melony Otero MD Performed By: #### H EMDF, BUN3, GLUC3, URIC3, BILF3, FEIBC, PHOS3, MG3, HA1C2, CA3, FK5 #### [address] [id number] #### IGMO, IGAO, EBVPO, IGGO, CMVLO #### The performing lab is in the report. Immunoglobulin Aon 2 Immunoglobulin A 72 mg/dL Normal 68-408 [facility] Comment on above: Result Comment: REFE RENCE INTERVAL: Immunoglobulin A Access complete set of age- and/or gender-specific reference intervals for this test in the [facility] Test Directory (Architectural Daily). Performed By: [facility] [address] [place] [id number] Airplane Technician: Melony Otero MD Performed By: #### H EMDF, BUN3, GLUC3, URIC3, BILF3, FEIBC, PHOS3, MG3, HA1C2, CA3, FK5 #### [address] #### IGMO, IGAO, EBVPO, IGGO, CMVLO #### The performing lab is in the report. Immunoglobulin Enrique Immunoglobulin G 573 mg/dL Low [id number] [facility] Comment on above: Result Comment: REFE RENCE INTERVAL: Immunoglobulin G Access complete set of age- and/or gender-specific reference intervals for this test in the [facility] Test Directory (Architectural Daily). Performed By: [facility] [address] [place] [id number] Airplane Technician: Melony Otero MD Performed By: #### H EMDF, BUN3, GLUC3, URIC3, BILF3, FEIBC, PHOS3, MG3, HA1C2, CA3, FK5 #### [address] #### IGMO, IGAO, EBVPO, IGGO, CMVLO #### The performing lab is in the report. Robel-Mclaughlin Virus Panelon 0 03-03-2022 EBV Viral Capsid Ag IgM < 0.2 Normal [facility] Comment on above: Performed By: #### H EMDF, BUN3, GLUC3, URIC3, BILF3, FEIBC, PHOS3, MG3, HA1C2, CA3, FK5 #### [address] [address] #### IGMO, IGAO, EBVPO, IGGO, CMVLO #### The performing lab is in the report. EBV Early Antigen IgG < 0.2 Normal [facility] Comment on above: Result Comment: Inte rpretive Information: Results of 1.1 Leandro or greater = POSITIVE Results of 0.9 Leandro - 1.0 Leandro = EQUIVOCAL Results of 0.8 Leandro or less = NEGATIVE This is a qualitative test. The numeric antibody index reported does not correspond to antibody concentrations. Performed By: #### H EMDF, BUN3, GLUC3, URIC3, BILF3, FEIBC, PHOS3, MG3, HA1C2, CA3, FK5 #### [place] [id number] #### IGMO, IGAO, EBVPO, IGGO, CMVLO #### The performing lab is in the report. EBV Nuclear Antigen IgG 7.5 Abnormal S [facility] Comment on above: Performed By: #### H EMDF, BUN3, GLUC3, URIC3, BILF3, FEIBC, PHOS3, MG3, HA1C2, CA3, FK5 #### [address] #### IGMO, IGAO, EBVPO, IGGO, CMVLO #### The performing lab is in the report. EBV Viral Capsid Ag IgG > 8.0 Abnormal S [facility] Comment on above: Performed By: #### H EMDF, BUN3, GLUC3, URIC3, BILF3, FEIBC, PHOS3, MG3, HA1C2, CA3, FK5 #### [place] [address] #### IGMO, IGAO, EBVPO, IGGO, CMVLO #### The performing lab is in the report. FK506 (Prograf)on 03-03-2022 FK506 (Prograf) 7.8 ug/L Normal 5.0-20.0 [facility] Comment on above: Result Comment: Test performed using Chemiluminescent Microparticle Immunoassay (CMIA; [employer]) Performed By: #### H EMDF, BUN3, GLUC3, URIC3, BILF3, FEIBC, PHOS3, MG3, HA1C2, CA3, FK5 #### [address] [address] #### IGMO, IGAO, EBVPO, IGGO, CMVLO #### The performing lab is in the report. BILIRUBIN FRACTIONATED, ADUL Ton 03-02-2022 Bilirubin [Mass/Vol] 0.8 mg/dL 0.2 - 1 .3 mg/dL [facility] Bilirubin.indirect [Mass/Vol] 0.0 mg/dL 0.0 - 0.3 mg/dL [facility] BUNon 03-02-2022 Urea nitrogen (BldV) [Mass/Vol] 18 mg/dL High 7 - 17 mg/dL [facility] Bilirubin, Fractionatedon Bilirubin [Mass/Vol] 0.8 mg/dL Normal 0.2-1.3 [facility] Comment on above: Performed By: #### H EMDF, BUN3, GLUC3, URIC3, BILF3, FEIBC, PHOS3, MG3, HA1C2, CA3, FK5 #### [facility] [address] [place] [address] #### IGMO, IGAO, EBVPO, IGGO, CMVLO #### The performing lab is in the report. Bilirubin.indirect [Mass/Vol] 0.0 mg/dL Normal 0.0-0.3 [facility] Comment on above: Performed By: #### H EMDF, BUN3, GLUC3, URIC3, BILF3, FEIBC, PHOS3, MG3, HA1C2, CA3, FK5 #### [address] [address] #### IGMO, IGAO, EBVPO, IGGO, CMVLO #### The performing lab is in the report. CBC with Auto Differentialon 03-02-2022 Absolute Baso # 0.0 10*3/uL 0.0 - 0.2 10*3/uL [facility] Absolute Neut # 4.5 10*3/uL 1.8 - 7.0 10*3/uL [facility] Basophils/100 WBC (Bld) 0.2 % 0.0 - 2.0 % [facility] Eosinophils (Bld) [#/Vol] 0.1 10*3/uL 0.0 - 0.5 10*3/uL [facility] Eosinophils/100 WBC (Bld) 1.6 % 1.0 - 6.0 % [facility] Granulocytes/100 WBC (Bld) 77.8 % 40.0 - 80.0 % [facility] Hematocrit (Bld) [Volume fraction] 44.3 % 40.0 - 52.0 % [facility] Hemoglobin.gastrointesti nal spec 1 Ql (Stl) 14.8 g/dL 13.0 - 18.0 g/dL [facility] Lymphocytes (Bld) [#/Vol] 0.7 10*3/uL Low 1.0 - 4.3 10*3/uL [facility] Lymphocytes/100 WBC (Bld) 12.7 % Low 20.0 - 40.0 % [facility] MCH (RBC) [Entitic mass] 30.6 pg 26. 0 - 34.0 pg [facility] MCHC (RBC) [Mass/Vol] 33.4 % 32.0 - 36.0 % [facility] MCV (RBC) [Entitic vol] 91.6 fL 80.0 - 98.0 fL [facility] Monocytes (Bld) [#/Vol] 0.5 10*3/uL 0.0 - 0.8 10*3/uL [facility] Monocytes/100 WBC (Bld) 7.7 % 2.0 - 10.0 % [facility] Platelet distribution width (Bld) [Ratio] 14.5 % 11.5 - 14.5 % [facility] Platelet mean volume (Bld) [Entitic vol] 9.2 fL 7.4 - 12.4 fL [facility] Comment on above: MPV is a calculated measurement using platelet volume ratio. Platelets (Bld) [#/Vol] 229 10*3/uL 140 - 440 10*3/uL [facility] RBC (Bld) [#/Vol] 4.84 10*6/uL 4.40 - 5.9 0 10*6/uL [facility] WBC (Bld) [#/Vol] 5.8 10*3/uL 3.6 - 10.7 10*3/uL [facility] Calciumon 03-02-2022 Calcium [Mass/Vol] 10.2 mg/dL Normal 8.4-10.4 [facility] Comment on above: Performed By: #### H EMDF, BUN3, GLUC3, URIC3, BILF3, FEIBC, PHOS3, MG3, HA1C2, CA3, FK5 #### [facility] [address] [place] [phone] #### IGMO, IGAO, EBVPO, IGGO, CMVLO #### The performing lab is in the report. Calcium [Mass/Vol] 10.2 mg/dL 8.4 - 10. 4 mg/dL [facility] Glucoseon 03-02-2022 Glucose [Mass/Vol] 101 mg/dL High 70-100 [facility] Comment on above: Performed By: #### H EMDF, BUN3, GLUC3, URIC3, BILF3, FEIBC, PHOS3, MG3, HA1C2, CA3, FK5 #### [address] [address] #### IGMO, IGAO, EBVPO, IGGO, CMVLO #### The performing lab is in the report. Glucose, Randomon 03-02-2022 Glucose [Mass/Vol] 101 mg/dL High 70 - 100 mg/dL [facility] Hemoglobin A1Con 03-02-2022 Glucose [Mass/Vol] 120 mg/dL Normal [facility] Comment on above: Performed By: #### H EMDF, BUN3, GLUC3, URIC3, BILF3, FEIBC, PHOS3, MG3, HA1C2, CA3, FK5 #### [address] [address] #### IGMO, IGAO, EBVPO, IGGO, CMVLO #### The performing lab is in the report. HbA1c (Bld) [Mass fraction] 5.8 % Abnormal [facility] Comment on above: Result Comment: Norm al less than 5.7% Prediabetes 5.7% to 6.4% Diabetes 6.5% or higher --HgbA1C levels may not be accurate in patients who have renal disease, received recent blood transfusions, are anemic, or who have dyshemoglobinemia. Performed By: #### H EMDF, BUN3, GLUC3, URIC3, BILF3, FEIBC, PHOS3, MG3, HA1C2, CA3, FK5 #### [facility] [address] [place] [address] #### IGMO, IGAO, EBVPO, IGGO, CMVLO #### The performing lab is in the report. HbA1c (Bld) [Mass fraction] 5.8 % Abnormal [facility] Comment on above: Normal less than 5.7 % Prediabetes 5.7% to 6.4% Diabetes 6.5% or higher --HgbA1C levels may not be accurate in patients who have renal disease, received recent blood transfusions, are anemic, or who have dyshemoglobinemia. Magnesium [Mass/Vol] 120 mg/dL [facility] Hemogram w/ Autodiffon 03-02 Abs Baso Cnt 0.0 10*3/uL Normal 0.0-0.2 [facility] Comment on above: Performed By: #### H EMDF, BUN3, GLUC3, URIC3, BILF3, FEIBC, PHOS3, MG3, HA1C2, CA3, FK5 #### [address] [address] #### IGMO, IGAO, EBVPO, IGGO, CMVLO #### The performing lab is in the report. Abs Neutrophile Cnt 4.5 10*3/uL Normal 1.8-7.0 [facility] Comment on above: Performed By: #### H EMDF, BUN3, GLUC3, URIC3, BILF3, FEIBC, PHOS3, MG3, HA1C2, CA3, FK5 #### [address] [address] #### IGMO, IGAO, EBVPO, IGGO, CMVLO #### The performing lab is in the report. Basophils/100 WBC (Bld) 0.2 % Normal 0.0-2.0 S [facility] Comment on above: Performed By: #### H EMDF, BUN3, GLUC3, URIC3, BILF3, FEIBC, PHOS3, MG3, HA1C2, CA3, FK5 #### [address] [address] #### IGMO, IGAO, EBVPO, IGGO, CMVLO #### The performing lab is in the report. Eosinophils (Bld) [#/Vol] 0.1 10*3/uL Normal 0.0-0.5 [facility] Comment on above: Performed By: #### H EMDF, BUN3, GLUC3, URIC3, BILF3, FEIBC, PHOS3, MG3, HA1C2, CA3, FK5 #### [address] #### IGMO, IGAO, EBVPO, IGGO, CMVLO #### The performing lab is in the report. Eosinophils/100 WBC (Bld) 1.6 % Normal 1.0-6.0 [facility] Comment on above: Performed By: #### H EMDF, BUN3, GLUC3, URIC3, BILF3, FEIBC, PHOS3, MG3, HA1C2, CA3, FK5 #### [address] #### IGMO, IGAO, EBVPO, IGGO, CMVLO #### The performing lab is in the report. Erythrocyte distribution width (RBC) [Ratio] 14.5 % Normal 11.5-14.5 [facility] Comment on above: Performed By: #### H EMDF, BUN3, GLUC3, URIC3, BILF3, FEIBC, PHOS3, MG3, HA1C2, CA3, FK5 #### [address] #### IGMO, IGAO, EBVPO, IGGO, CMVLO #### The performing lab is in the report. Granulocytes/100 WBC (Bld) 77.8 % Normal 40.0-80.0 [facility] Comment on above: Performed By: #### H EMDF, BUN3, GLUC3, URIC3, BILF3, FEIBC, PHOS3, MG3, HA1C2, CA3, FK5 #### [address] #### IGMO, IGAO, EBVPO, IGGO, CMVLO #### The performing lab is in the report. Hematocrit (Bld) [Volume fraction] 44.3 % Normal 40.0-52.0 [facility] Comment on above: Performed By: #### H EMDF, BUN3, GLUC3, URIC3, BILF3, FEIBC, PHOS3, MG3, HA1C2, CA3, FK5 #### [address] #### IGMO, IGAO, EBVPO, IGGO, CMVLO #### The performing lab is in the report. Hemoglobin (Bld) [Mass/Vol] 14.8 g/dL Normal 13.0-18.0 [facility] Comment on above: Performed By: #### H EMDF, BUN3, GLUC3, URIC3, BILF3, FEIBC, PHOS3, MG3, HA1C2, CA3, FK5 #### [address] #### IGMO, IGAO, EBVPO, IGGO, CMVLO #### The performing lab is in the report. Lymphocytes (Bld) [#/Vol] 0.7 10*3/uL Low 1.0-4.3 [facility] Comment on above: Performed By: #### H EMDF, BUN3, GLUC3, URIC3, BILF3, FEIBC, PHOS3, MG3, HA1C2, CA3, FK5 #### [address] #### IGMO, IGAO, EBVPO, IGGO, CMVLO #### The performing lab is in the report. Lymphocytes/100 WBC (Bld) 12.7 % Low 20.0-40.0 [facility] Comment on above: Performed By: #### H EMDF, BUN3, GLUC3, URIC3, BILF3, FEIBC, PHOS3, MG3, HA1C2, CA3, FK5 #### [address] #### IGMO, IGAO, EBVPO, IGGO, CMVLO #### The performing lab is in the report. MCH (RBC) [Entitic mass] 30.6 pg Normal 26.0-34.0 [facility] Comment on above: Performed By: #### H EMDF, BUN3, GLUC3, URIC3, BILF3, FEIBC, PHOS3, MG3, HA1C2, CA3, FK5 #### [address] [address] #### IGMO, IGAO, EBVPO, IGGO, CMVLO #### The performing lab is in the report. MCHC 33.4 % Normal 32.0-36.0 [facility] Comment on above: Performed By: #### H EMDF, BUN3, GLUC3, URIC3, BILF3, FEIBC, PHOS3, MG3, HA1C2, CA3, FK5 #### [address] #### IGMO, IGAO, EBVPO, IGGO, CMVLO #### The performing lab is in the report. MCV (RBC) [Entitic vol] 91.6 fL Normal 80.0-98.0 S [facility] Comment on above: Performed By: #### H EMDF, BUN3, GLUC3, URIC3, BILF3, FEIBC, PHOS3, MG3, HA1C2, CA3, FK5 #### [address] [address] #### IGMO, IGAO, EBVPO, IGGO, CMVLO #### The performing lab is in the report. Monocytes (Bld) [#/Vol] 0.5 10*3/uL Normal 0.0-0.8 [facility] Comment on above: Performed By: #### H EMDF, BUN3, GLUC3, URIC3, BILF3, FEIBC, PHOS3, MG3, HA1C2, CA3, FK5 #### [address] [address] #### IGMO, IGAO, EBVPO, IGGO, CMVLO #### The performing lab is in the report. Monocytes/100 WBC (Bld) 7.7 % Normal 2.0-10.0 S [facility] Comment on above: Performed By: #### H EMDF, BUN3, GLUC3, URIC3, BILF3, FEIBC, PHOS3, MG3, HA1C2, CA3, FK5 #### [address] #### IGMO, IGAO, EBVPO, IGGO, CMVLO #### The performing lab is in the report. Platelet mean volume (Bld) [Entitic vol] 9.2 fL Normal 7.4-12.4 [facility] Comment on above: Result Comment: MPV is a calculated measurement using platelet volume ratio. Performed By: #### H EMDF, BUN3, GLUC3, URIC3, BILF3, FEIBC, PHOS3, MG3, HA1C2, CA3, FK5 #### [address] #### IGMO, IGAO, EBVPO, IGGO, CMVLO #### The performing lab is in the report. Platelets (Bld) [#/Vol] 229 10*3/uL Normal 140-440 [facility] Comment on above: Performed By: #### H EMDF, BUN3, GLUC3, URIC3, BILF3, FEIBC, PHOS3, MG3, HA1C2, CA3, FK5 #### [address] #### IGMO, IGAO, EBVPO, IGGO, CMVLO #### The performing lab is in the report. RBC (Bld) [#/Vol] 4.84 10*6/uL Normal 4.40-5.90 [facility] Comment on above: Performed By: #### H EMDF, BUN3, GLUC3, URIC3, BILF3, FEIBC, PHOS3, MG3, HA1C2, CA3, FK5 #### [address] #### IGMO, IGAO, EBVPO, IGGO, CMVLO #### The performing lab is in the report. WBC (Bld) [#/Vol] 5.8 10*3/uL Normal 3.6-10.7 [facility] Comment on above: Performed By: #### H EMDF, BUN3, GLUC3, URIC3, BILF3, FEIBC, PHOS3, MG3, HA1C2, CA3, FK5 #### [address] #### IGMO, IGAO, EBVPO, IGGO, CMVLO #### The performing lab is in the report. Iron AND TIBCon 03-02-2022 Saturation 51 % High 15-50 [facility] Comment on above: Performed By: #### H EMDF, BUN3, GLUC3, URIC3, BILF3, FEIBC, PHOS3, MG3, HA1C2, CA3, FK5 #### [address] #### IGMO, IGAO, EBVPO, IGGO, CMVLO #### The performing lab is in the report. Total Iron Binding Cap. 310 ug/dL Normal 261-497 S [facility] Comment on above: Performed By: #### H EMDF, BUN3, GLUC3, URIC3, BILF3, FEIBC, PHOS3, MG3, HA1C2, CA3, FK5 #### [address] #### IGMO, IGAO, EBVPO, IGGO, CMVLO #### The performing lab is in the report. Iron, Total 159 ug/dL Normal 49-181 [facility] Comment on above: Performed By: #### H EMDF, BUN3, GLUC3, URIC3, BILF3, FEIBC, PHOS3, MG3, HA1C2, CA3, FK5 #### [address] #### IGMO, IGAO, EBVPO, IGGO, CMVLO #### The performing lab is in the report. Iron and TIBCon 03-02-2022 Iron [Mass/Vol] 159 ug/dL 49 - 181 ug/dL [facility] Sat 51 % High 15 - 50 % [facility] TIBC 310 ug/dL 261 - 497 ug/dL [facility] Magnesiumon 03-02-2022 Magnesium [Mass/Vol] 1.7 mg/dL Normal 1.6-2.3 [facility] Comment on above: Performed By: #### H EMDF, BUN3, GLUC3, URIC3, BILF3, FEIBC, PHOS3, MG3, HA1C2, CA3, FK5 #### [address] [address] #### IGMO, IGAO, EBVPO, IGGO, CMVLO #### The performing lab is in the report. Magnesium [Mass/Vol] 1.7 mg/dL 1.6 - 2 .3 mg/dL [facility] No Panel Informationon 03-02 Interpretation and review of laboratory results Abnormal [facility] Test Performed by [address] LAB [facility] Phosphoruson 03-02-2022 Phosphate [Mass/Vol] 2.4 mg/dL Low 2.5-4.5 [facility] Comment on above: Performed By: #### H EMDF, BUN3, GLUC3, URIC3, BILF3, FEIBC, PHOS3, MG3, HA1C2, CA3, FK5 #### [address] #### IGMO, IGAO, EBVPO, IGGO, CMVLO #### The performing lab is in the report. Phosphate [Mass/Vol] 2.4 mg/dL Low 2.5 - 4 .5 mg/dL [facility] Potassium 03-02-2022 Potassium [Moles/Vol] 4.3 mmol/L Normal 3.5-5.1 [facility] Comment on above: Performed By: #### H EMDF, BUN3, GLUC3, URIC3, BILF3, FEIBC, PHOS3, MG3, HA1C2, CA3, FK5 #### [address] [address] #### IGMO, IGAO, EBVPO, IGGO, CMVLO #### The performing lab is in the report. Potassium [Moles/Vol] 4.3 mmol/L 3.5 - 5.1 mmol/L [facility] Sodiumon 03-02-2022 Sodium [Moles/Vol] 138 mmol/L Normal 135-145 [facility] Comment on above: Performed By: #### H EMDF, BUN3, GLUC3, URIC3, BILF3, FEIBC, PHOS3, MG3, HA1C2, CA3, FK5 #### [place] [address] #### IGMO, IGAO, EBVPO, IGGO, CMVLO #### The performing lab is in the report. Sodium [Moles/Vol] 138 mmol/L 135 - 145 mmol/L [facility] Urea Nitrogenon 03-02-2022 Urea nitrogen [Mass/Vol] 18 mg/dL High 05-02 [facility] Comment on above: Performed By: #### H EMDF, BUN3, GLUC3, URIC3, BILF3, FEIBC, PHOS3, MG3, HA1C2, CA3, FK5 #### [place] [address] #### IGMO, IGAO, EBVPO, IGGO, CMVLO #### The performing lab is in the report. Uric Acidon 03-02-2022 Urate [Mass/Vol] 7.7 mg/dL High 2.5-6.2 [facility] Comment on above: Performed By: #### H EMDF, BUN3, GLUC3, URIC3, BILF3, FEIBC, PHOS3, MG3, HA1C2, CA3, FK5 #### [address] [address] #### IGMO, IGAO, EBVPO, IGGO, CMVLO #### The performing lab is in the report. Urate [Mass/Vol] 7.7 mg/dL High 2.5 - 6.2 mg/dL [facility] Spirometry without bronchodi latoron 01-28-2022 Name: NICK HERNÁNDEZ PatientID: [id number] Gender: Male Birthdate: 1960 Study Date: 01/28/2022 11:10:44 Age: 61 Race: White or Height: 72.0 in, 182.9 cm Weight: 218.0 lbs, 99.1 kg Smoke Status: Never Pack Years: Tbco Prod: Cigarettes Ordering Physician: [id number] Interpreting Physician: [id number] Imaging Science Professor: MITZI Testing Location: [facility] Diagnosis: POST LUNG TRANSPLANT Spirometry Units Pred PreDrug Pre%Pred Post Post%Pred %Change FVC L,btps 5.14 4.31 84. FEV1 L,btps 3.90 2.77 71. FEV1/FVC (%) % 76. 64. 85. [id number]% L/s 3.21 1.46 46. FEFmax L/s 9.75 6.03 62. MVV in,btps 131.99 Lung Volumes (Body Box) Units Pred PreDrug Pre%Pred TLC L,btps 7.61 VC L,btps 5.14 IC L,btps 3.89 FRC L,btps 3.72 ERV L,btps 1.26 RV L,btps 2.46 RV/TLC (%) % 32. VTG L,btps RAW H2O/L/s 1.19 SGaw cmH2O/L 0.23 Diffusion (DLCO) Units Pred PreDrug Pre%Pred DLCO ml/min/mmHg,stpd 33.09 DLCOHb ml/min/mmHg,stpd 33.09 VAsb L,btps 7.43 D/VAsb ml/min/mmHg/L,stpd 4.45 D/VAsbHb ml/min/mmHg/L,stpd 4.45 VInsp L Hgb g/dl COHb % Lung Mechanics Units Pred PreDrug Pre%Pred PImax /MIP cmH2O -81.23 PEmax /MEP cmH2O 126.31 [facility] [employer]ICING CONSULTANT NOTES Good Patient effort. Consistent results. Best results reported.Calibration check passed with acceptable system performance. The patient performed all pre-test requirements. Spirometry best effort, met acceptability and repeatability guidelines. Pt has sob with exertion. Pt has a dry npc. Pt stating he has a hard time exhaling with force without coughing. [address]- SLIM Tests to perform: [id number] - SPIROMETRY WITHOUT BRONCHODILATOR PHYSICIAN INTERPRETATION Forced expiratory spirogram reveals moderate large airways obstructive lung disease. Spirograms are of good quality and do not plateau. The respiratory flow volume loop reveals decreased flows at all volumes consistent with large and small airways obstruction. IMPRESSION 1. Moderate obstruction noted on spirometry. [facility] Mac Garza, DO - 01/28/2022 Name: NICK HERNÁNDEZ PatientID: [id number] Gender: Male Birthdate: 1960 Study Date: 01/28/2022 11:10:44 Age: 61 Race: White or Height: 72.0 in, 182.9 cm Weight: 218.0 lbs, 99.1 kg Smoke Status: Never Pack Years: Tbco Prod: Cigarettes Ordering Physician: [id number] Interpreting Physician: [id number] Imaging Science Professor: MITZI Testing Location: [facility] Diagnosis: POST LUNG TRANSPLANT Spirometry Units Pred PreDrug Pre%Pred Post Post%Pred %Change FVC L,btps 5.14 4.31 84. FEV1 L,btps 3.90 2.77 71. FEV1/FVC (%) % 76. 64. 85. QJJ33-08% L/s 3.21 1.46 46. FEFmax L/s 9.75 6.03 62. MVV in,btps 131.99 Lung Volumes (Body Box) Units Pred PreDrug Pre%Pred TLC L,btps 7.61 VC L,btps 5.14 IC L,btps 3.89 FRC L,btps 3.72 ERV L,btps 1.26 RV L,btps 2.46 RV/TLC (%) % 32. VTG L,btps RAW H2O/L/s 1.19 SGaw cmH2O/L 0.23 Diffusion (DLCO) Units Pred PreDrug Pre%Pred DLCO ml/min/mmHg,stpd 33.09 DLCOHb ml/min/mmHg,stpd 33.09 VAsb L,btps 7.43 D/VAsb ml/min/mmHg/L,stpd 4.45 D/VAsbHb ml/min/mmHg/L,stpd 4.45 VInsp L Hgb g/dl COHb % Lung Mechanics Units Pred PreDrug Pre%Pred PImax /MIP cmH2O -81.23 PEmax /MEP cmH2O 126.31 [facility] PRICING CONSULTANT NOTES Good Patient effort. Consistent results. Best results reported.Calibration check passed with acceptable system performance. The patient performed all pre-test requirements. Spirometry best effort, met acceptability and repeatability guidelines. Pt has sob with exertion. Pt has a dry npc. Pt stating he has a hard time exhaling with force without coughing. [address]605- SLIM Tests to perform: [id number] - SPIROMETRY WITHOUT BRONCHODILATOR PHYSICIAN INTERPRETATION Forced expiratory spirogram reveals moderate large airways obstructive lung disease. Spirograms are of good quality and do not plateau. The respiratory flow volume loop reveals decreased flows at all volumes consistent with large and small airways obstruction. IMPRESSION 1. Moderate obstruction noted on spirometry. [employer] Work Phone: Spirometry without bronchodi latorOrdered By: Mac Medina on 01-28-2022 [employer] Work Phone: CMV IgM Abon 01-23-2022 CMV IgM Ab < 8.0 Normal <=29.9 [facility] Comment on above: Result Comment: INTE RPRETIVE INFORMATION: Cytomegalovirus Antibody, IgM 29.9 AU/mL or Less ....... Not Detected 30.0-34.9 AU/mL........... Indeterminate-Repeat testing in 10-14 days may be helpful. 35.0 AU/mL or Greater .... Detected-IgM antibody to CMV detected which may indicate a current or recent infection. However, low levels of IgM antibodies may occasionally persist for more than 12 months post-infection. CMV serology is not useful for the evaluation of active or reactivated infection in immunocompromised patients. Molecular diagnostic tests (i.e. PCR)are preferred in these cases. This test should not be used for blood donor screening, associated re-entry protocols, or for screening Human Cell, Tissues and Cellular and Tissue-Based Products (HCT/P). Performed By: [facility] [address] [place] [id number] Airplane Technician: Melony Otero MD Performed By: #### H EMDF, BUN3, GLUC3, URIC3, BILF3, FEIBC, PHOS3, MG3, HA1C2, CA3, FK5 #### [employer] [address] [place] [phone] #### IGMO, IGAO, EBVPO, IGGO, CMVLO #### The performing lab is in the report. FK506 (Prograf)on 01-22-2022 FK506 (Prograf) 5.5 ug/L Normal 5.0-20.0 [employer] [facility] Comment on above: Result Comment: Test performed using Chemiluminescent Microparticle Immunoassay (CMIA; [employer]) Performed By: #### H EMDF, BUN3, GLUC3, URIC3, BILF3, FEIBC, PHOS3, MG3, HA1C2, CA3, FK5 #### [address] #### IGMO, IGAO, EBVPO, IGGO, CMVLO #### The performing lab is in the report. Bilirubin, Fractionatedon Bilirubin [Mass/Vol] 0.6 mg/dL Normal 0.2-1.3 [facility] Comment on above: Performed By: #### H EMDF, BUN3, GLUC3, URIC3, BILF3, FEIBC, PHOS3, MG3, HA1C2, CA3, FK5 #### [address] [id number] #### IGMO, IGAO, EBVPO, IGGO, CMVLO #### The performing lab is in the report. Bilirubin.indirect [Mass/Vol] 0.0 mg/dL Normal 0.0-0.3 [facility] Comment on above: Performed By: #### H EMDF, BUN3, GLUC3, URIC3, BILF3, FEIBC, PHOS3, MG3, HA1C2, CA3, FK5 #### [address] [id number] #### IGMO, IGAO, EBVPO, IGGO, CMVLO #### The performing lab is in the report. Calciumon 01-21-2022 Calcium [Mass/Vol] 9.8 mg/dL Normal 8.4-10.4 [facility] Comment on above: Performed By: #### H EMDF, BUN3, GLUC3, URIC3, BILF3, FEIBC, PHOS3, MG3, HA1C2, CA3, FK5 #### [address] [id number] #### IGMO, IGAO, EBVPO, IGGO, CMVLO #### The performing lab is in the report. Electrolyte Panelon 01-22-20 Anion gap [Moles/Vol] 9 mmol/L Normal 3-13 [facility] Comment on above: Performed By: #### H EMDF, BUN3, GLUC3, URIC3, BILF3, FEIBC, PHOS3, MG3, HA1C2, CA3, FK5 #### [address] #### IGMO, IGAO, EBVPO, IGGO, CMVLO #### The performing lab is in the report. CO2 [Moles/Vol] 24 mmol/L Normal 22-30 [facility] Comment on above: Performed By: #### H EMDF, BUN3, GLUC3, URIC3, BILF3, FEIBC, PHOS3, MG3, HA1C2, CA3, FK5 #### [address] #### IGMO, IGAO, EBVPO, IGGO, CMVLO #### The performing lab is in the report. Chloride [Moles/Vol] 106 mmol/L Normal 98-107 [facility] Comment on above: Performed By: #### H EMDF, BUN3, GLUC3, URIC3, BILF3, FEIBC, PHOS3, MG3, HA1C2, CA3, FK5 #### [address] #### IGMO, IGAO, EBVPO, IGGO, CMVLO #### The performing lab is in the report. Potassium [Moles/Vol] 4.5 mmol/L Normal 3.5-5.1 [facility] Comment on above: Performed By: #### H EMDF, BUN3, GLUC3, URIC3, BILF3, FEIBC, PHOS3, MG3, HA1C2, CA3, FK5 #### [address] #### IGMO, IGAO, EBVPO, IGGO, CMVLO #### The performing lab is in the report. Sodium [Moles/Vol] 140 mmol/L Normal 135-145 [facility] Comment on above: Performed By: #### H EMDF, BUN3, GLUC3, URIC3, BILF3, FEIBC, PHOS3, MG3, HA1C2, CA3, FK5 #### [address] #### IGMO, IGAO, EBVPO, IGGO, CMVLO #### The performing lab is in the report. Glucoseon 01-21-2022 Glucose [Mass/Vol] 105 mg/dL High 70-100 [facility] Comment on above: Performed By: #### H EMDF, BUN3, GLUC3, URIC3, BILF3, FEIBC, PHOS3, MG3, HA1C2, CA3, FK5 #### [address] #### IGMO, IGAO, EBVPO, IGGO, CMVLO #### The performing lab is in the report. Hemogram w/ Autodiffon 01-21 Abs Baso Cnt 0.0 10*3/uL Normal 0.0-0.2 [facility] Comment on above: Performed By: #### H EMDF, BUN3, GLUC3, URIC3, BILF3, FEIBC, PHOS3, MG3, HA1C2, CA3, FK5 #### [address] #### IGMO, IGAO, EBVPO, IGGO, CMVLO #### The performing lab is in the report. Abs Neutrophile Cnt 4.6 10*3/uL Normal 1.8-7.0 [facility] Comment on above: Performed By: #### H EMDF, BUN3, GLUC3, URIC3, BILF3, FEIBC, PHOS3, MG3, HA1C2, CA3, FK5 #### [address] #### IGMO, IGAO, EBVPO, IGGO, CMVLO #### The performing lab is in the report. Basophils/100 WBC (Bld) 0.3 % Normal 0.0-2.0 S [facility] Comment on above: Performed By: #### H EMDF, BUN3, GLUC3, URIC3, BILF3, FEIBC, PHOS3, MG3, HA1C2, CA3, FK5 #### [address] [address] #### IGMO, IGAO, EBVPO, IGGO, CMVLO #### The performing lab is in the report. Eosinophils (Bld) [#/Vol] 0.0 10*3/uL Normal 0.0-0.5 [facility] Comment on above: Performed By: #### H EMDF, BUN3, GLUC3, URIC3, BILF3, FEIBC, PHOS3, MG3, HA1C2, CA3, FK5 #### [address] [address] #### IGMO, IGAO, EBVPO, IGGO, CMVLO #### The performing lab is in the report. Eosinophils/100 WBC (Bld) 0.7 % Low 1.0-6.0 [facility] Comment on above: Performed By: #### H EMDF, BUN3, GLUC3, URIC3, BILF3, FEIBC, PHOS3, MG3, HA1C2, CA3, FK5 #### [address] [address] #### IGMO, IGAO, EBVPO, IGGO, CMVLO #### The performing lab is in the report. Erythrocyte distribution width (RBC) [Ratio] 14.7 % High 11.5-14.5 [facility] Comment on above: Performed By: #### H EMDF, BUN3, GLUC3, URIC3, BILF3, FEIBC, PHOS3, MG3, HA1C2, CA3, FK5 #### [address] [address] #### IGMO, IGAO, EBVPO, IGGO, CMVLO #### The performing lab is in the report. Granulocytes/100 WBC (Bld) 77.1 % Normal 40.0-80.0 [facility] [employer] [facility] Comment on above: Performed By: #### H EMDF, BUN3, GLUC3, URIC3, BILF3, FEIBC, PHOS3, MG3, HA1C2, CA3, FK5 #### [address] [address] #### IGMO, IGAO, EBVPO, IGGO, CMVLO #### The performing lab is in the report. Hematocrit (Bld) [Volume fraction] 44.8 % Normal 40.0-52.0 [facility] Comment on above: Performed By: #### H EMDF, BUN3, GLUC3, URIC3, BILF3, FEIBC, PHOS3, MG3, HA1C2, CA3, FK5 #### [address] [address] #### IGMO, IGAO, EBVPO, IGGO, CMVLO #### The performing lab is in the report. Hemoglobin (Bld) [Mass/Vol] 14.6 g/dL Normal 13.0-18.0 [facility] Comment on above: Performed By: #### H EMDF, BUN3, GLUC3, URIC3, BILF3, FEIBC, PHOS3, MG3, HA1C2, CA3, FK5 #### [address] [address] #### IGMO, IGAO, EBVPO, IGGO, CMVLO #### The performing lab is in the report. Lymphocytes (Bld) [#/Vol] 0.8 10*3/uL Low 1.0-4.3 [facility] Comment on above: Performed By: #### H EMDF, BUN3, GLUC3, URIC3, BILF3, FEIBC, PHOS3, MG3, HA1C2, CA3, FK5 #### [address] [address] #### IGMO, IGAO, EBVPO, IGGO, CMVLO #### The performing lab is in the report. Lymphocytes/100 WBC (Bld) 13.7 % Low 20.0-40.0 [facility] Comment on above: Performed By: #### H EMDF, BUN3, GLUC3, URIC3, BILF3, FEIBC, PHOS3, MG3, HA1C2, CA3, FK5 #### [address] [place], [place] #### IGMO, IGAO, EBVPO, IGGO, CMVLO #### The performing lab is in the report. MCH (RBC) [Entitic mass] 30.4 pg Normal 26.0-34.0 [facility] Comment on above: Performed By: #### H EMDF, BUN3, GLUC3, URIC3, BILF3, FEIBC, PHOS3, MG3, HA1C2, CA3, FK5 #### [address] #### IGMO, IGAO, EBVPO, IGGO, CMVLO #### The performing lab is in the report. MCHC 32.6 % Normal 32.0-36.0 [facility] Comment on above: Performed By: #### H EMDF, BUN3, GLUC3, URIC3, BILF3, FEIBC, PHOS3, MG3, HA1C2, CA3, FK5 #### [address] #### IGMO, IGAO, EBVPO, IGGO, CMVLO #### The performing lab is in the report. MCV (RBC) [Entitic vol] 93.2 fL Normal 80.0-98.0 S [facility] Comment on above: Performed By: #### H EMDF, BUN3, GLUC3, URIC3, BILF3, FEIBC, PHOS3, MG3, HA1C2, CA3, FK5 #### [address] #### IGMO, IGAO, EBVPO, IGGO, CMVLO #### The performing lab is in the report. Monocytes (Bld) [#/Vol] 0.5 10*3/uL Normal 0.0-0.8 [facility] Comment on above: Performed By: #### H EMDF, BUN3, GLUC3, URIC3, BILF3, FEIBC, PHOS3, MG3, HA1C2, CA3, FK5 #### [address] #### IGMO, IGAO, EBVPO, IGGO, CMVLO #### The performing lab is in the report. Monocytes/100 WBC (Bld) 8.2 % Normal 2.0-10.0 S [facility] Comment on above: Performed By: #### H EMDF, BUN3, GLUC3, URIC3, BILF3, FEIBC, PHOS3, MG3, HA1C2, CA3, FK5 #### [facility] [address], [place] #### IGMO, IGAO, EBVPO, IGGO, CMVLO #### The performing lab is in the report. Platelet mean volume (Bld) [Entitic vol] 8.8 fL Normal 7.4-10.4 [facility] Comment on above: Performed By: #### H EMDF, BUN3, GLUC3, URIC3, BILF3, FEIBC, PHOS3, MG3, HA1C2, CA3, FK5 #### [address] #### IGMO, IGAO, EBVPO, IGGO, CMVLO #### The performing lab is in the report. Platelets (Bld) [#/Vol] 191 10*3/uL Normal 140-440 [facility] Comment on above: Performed By: #### H EMDF, BUN3, GLUC3, URIC3, BILF3, FEIBC, PHOS3, MG3, HA1C2, CA3, FK5 #### [address] #### IGMO, IGAO, EBVPO, IGGO, CMVLO #### The performing lab is in the report. RBC (Bld) [#/Vol] 4.81 10*6/uL Normal 4.40-5.90 [facility] Comment on above: Performed By: #### H EMDF, BUN3, GLUC3, URIC3, BILF3, FEIBC, PHOS3, MG3, HA1C2, CA3, FK5 #### [address] #### IGMO, IGAO, EBVPO, IGGO, CMVLO #### The performing lab is in the report. WBC (Bld) [#/Vol] 5.9 10*3/uL Normal 3.6-10.7 [facility] Comment on above: Performed By: #### H EMDF, BUN3, GLUC3, URIC3, BILF3, FEIBC, PHOS3, MG3, HA1C2, CA3, FK5 #### [address] [address] #### IGMO, IGAO, EBVPO, IGGO, CMVLO #### The performing lab is in the report. Magnesiumon 01-21-2022 Magnesium [Mass/Vol] 1.7 mg/dL Normal 1.6-2.3 [facility] Comment on above: Performed By: #### H EMDF, BUN3, GLUC3, URIC3, BILF3, FEIBC, PHOS3, MG3, HA1C2, CA3, FK5 #### [address] #### IGMO, IGAO, EBVPO, IGGO, CMVLO #### The performing lab is in the report. Phosphoruson 01-21-2022 Phosphate [Mass/Vol] 3.1 mg/dL Normal 2.5-4.5 [facility] Comment on above: Performed By: #### H EMDF, BUN3, GLUC3, URIC3, BILF3, FEIBC, PHOS3, MG3, HA1C2, CA3, FK5 #### [address] #### IGMO, IGAO, EBVPO, IGGO, CMVLO #### The performing lab is in the report. Urea Nitrogenon 01-21-2022 Urea nitrogen [Mass/Vol] 13 mg/dL Normal 7-17 [facility] Comment on above: Performed By: #### H EMDF, BUN3, GLUC3, URIC3, BILF3, FEIBC, PHOS3, MG3, HA1C2, CA3, FK5 #### [address] #### IGMO, IGAO, EBVPO, IGGO, CMVLO #### The performing lab is in the report. Uric Acidon 01-21-2022 Urate [Mass/Vol] 8.1 mg/dL High 2.5-6.2 [facility] Comment on above: Performed By: #### H EMDF, BUN3, GLUC3, URIC3, BILF3, FEIBC, PHOS3, MG3, HA1C2, CA3, FK5 #### [address] [address] #### IGMO, IGAO, EBVPO, IGGO, CMVLO #### The performing lab is in the report. Robel-Mclaughlin Virus Panelon 0 12-21-2021 EBV Viral Capsid Ag IgM < 0.2 Normal [facility] Comment on above: Performed By: #### H EMDF, BUN3, GLUC3, URIC3, BILF3, FEIBC, PHOS3, MG3, HA1C2, CA3, FK5 #### [address] [address] #### IGMO, IGAO, EBVPO, IGGO, CMVLO #### The performing lab is in the report. EBV Early Antigen IgG < 0.2 Normal [facility] Comment on above: Result Comment: Inte rpretive Information: Results of 1.1 Leandro or greater = POSITIVE Results of 0.9 Leandro - 1.0 Leandro = EQUIVOCAL Results of 0.8 Leandro or less = NEGATIVE This is a qualitative test. The numeric antibody index reported does not correspond to antibody concentrations. Performed By: #### H EMDF, BUN3, GLUC3, URIC3, BILF3, FEIBC, PHOS3, MG3, HA1C2, CA3, FK5 #### [address] [address] #### IGMO, IGAO, EBVPO, IGGO, CMVLO #### The performing lab is in the report. EBV Nuclear Antigen IgG > 8.0 Abnormal [facility] Comment on above: Performed By: #### H EMDF, BUN3, GLUC3, URIC3, BILF3, FEIBC, PHOS3, MG3, HA1C2, CA3, FK5 #### [facility] [address] [place] [address] #### IGMO, IGAO, EBVPO, IGGO, CMVLO #### The performing lab is in the report. EBV Viral Capsid Ag IgG > 8.0 Abnormal S [facility] Comment on above: Performed By: #### H EMDF, BUN3, GLUC3, URIC3, BILF3, FEIBC, PHOS3, MG3, HA1C2, CA3, FK5 #### [facility] [address] [place] [address] #### IGMO, IGAO, EBVPO, IGGO, CMVLO #### The performing lab is in the report. CMV IgM Abon 12-20-2021 CMV IgM Ab < 8.0 Normal <=29.9 [facility] Comment on above: Result Comment: INTE RPRETIVE INFORMATION: Cytomegalovirus Antibody, IgM 29.9 AU/mL or Less ....... Not Detected 30.0-34.9 AU/mL........... Indeterminate-Repeat testing in 10-14 days may be helpful. 35.0 AU/mL or Greater .... Detected-IgM antibody to CMV detected which may indicate a current or recent infection. However, low levels of IgM antibodies may occasionally persist for more than 12 months post-infection. CMV serology is not useful for the evaluation of active or reactivated infection in immunocompromised patients. Molecular diagnostic tests (i.e. PCR)are preferred in these cases. This test should not be used for blood donor screening, associated re-entry protocols, or for screening Human Cell, Tissues and Cellular and Tissue-Based Products (HCT/P). Performed By: [facility] [address] [place] [id number] Airplane Technician: Melony Otero MD Performed By: #### H EMDF, BUN3, GLUC3, URIC3, BILF3, FEIBC, PHOS3, MG3, HA1C2, CA3, FK5 #### [facility] [address] [place] [address] #### IGMO, IGAO, EBVPO, IGGO, CMVLO #### The performing lab is in the report. Immunoglobulin Aon 2 Immunoglobulin A 79 mg/dL Normal 68-408 [facility] Comment on above: Result Comment: REFE RENCE INTERVAL: Immunoglobulin A Access complete set of age- and/or gender-specific reference intervals for this test in the [facility] Test Directory (Architectural Daily). Performed By: [facility] [address] [place] [address] Airplane Technician: Melony Otero MD Performed By: #### H EMDF, BUN3, GLUC3, URIC3, BILF3, FEIBC, PHOS3, MG3, HA1C2, CA3, FK5 #### [facility] [address] [address] #### IGMO, IGAO, EBVPO, IGGO, CMVLO #### The performing lab is in the report. Immunoglobulin Enrique 2 Immunoglobulin G 670 mg/dL Low 768-1632 [facility] Comment on above: Result Comment: REFE RENCE INTERVAL: Immunoglobulin G Access complete set of age- and/or gender-specific reference intervals for this test in the [facility] Test Directory (Architectural Daily). Performed By: [facility] [address] [place] [address] Airplane Technician: Melony Otero MD Performed By: #### H EMDF, BUN3, GLUC3, URIC3, BILF3, FEIBC, PHOS3, MG3, HA1C2, CA3, FK5 #### [employer] [address] [place] [address] #### IGMO, IGAO, EBVPO, IGGO, CMVLO #### The performing lab is in the report. Immunoglobulin Mon 2 Immunoglobulin M 18 mg/dL Low 35-263 [facility] Comment on above: Result Comment: REFE RENCE INTERVAL: Immunoglobulin M Access complete set of age- and/or gender-specific reference intervals for this test in the [facility] Test Directory (Architectural Daily). Performed By: [facility] [address] [place] [address] Airplane Technician: Melony Otero MD Performed By: #### H EMDF, BUN3, GLUC3, URIC3, BILF3, FEIBC, PHOS3, MG3, HA1C2, CA3, FK5 #### [address] [address] #### IGMO, IGAO, EBVPO, IGGO, CMVLO #### The performing lab is in the report. BILIRUBIN FRACTIONATED, ADUL Ton 12-18-2021 Bilirubin [Mass/Vol] 0.6 mg/dL 0.2 - 1 .3 mg/dL [facility] Bilirubin.indirect [Mass/Vol] 0.0 mg/dL 0.0 - 0.3 mg/dL [facility] BUNon 12-18-2021 Urea nitrogen (BldV) [Mass/Vol] 20 mg/dL High 7 - 17 mg/dL [facility] Bilirubin, Fractionatedon Bilirubin [Mass/Vol] 0.6 mg/dL Normal 0.2-1.3 [facility] Comment on above: Performed By: #### H EMDF, BUN3, GLUC3, URIC3, BILF3, FEIBC, PHOS3, MG3, HA1C2, CA3, FK5 #### [address] [address] #### IGMO, IGAO, EBVPO, IGGO, CMVLO #### The performing lab is in the report. Bilirubin.indirect [Mass/Vol] 0.0 mg/dL Normal 0.0-0.3 [facility] Comment on above: Performed By: #### H EMDF, BUN3, GLUC3, URIC3, BILF3, FEIBC, PHOS3, MG3, HA1C2, CA3, FK5 #### [address] [address] #### IGMO, IGAO, EBVPO, IGGO, CMVLO #### The performing lab is in the report. CBC with Auto Differentialon 12-18-2021 Absolute Baso # 0.0 10*3/uL 0.0 - 0.2 10*3/uL [facility] Absolute Neut # 6.8 10*3/uL 1.8 - 7.0 10*3/uL [facility] Basophils/100 WBC (Bld) 0.2 % 0.0 - 2.0 % [facility] Eosinophils (Bld) [#/Vol] 0.0 10*3/uL 0.0 - 0.5 10*3/uL [facility] Eosinophils/100 WBC (Bld) 0.6 % Low 1.0 - 6.0 % [facility] Granulocytes/100 WBC (Bld) 80.4 % High 40.0 - 80.0 % [facility] Hematocrit (Bld) [Volume fraction] 44.8 % 40.0 - 52.0 % [facility] Hemoglobin.gastrointesti nal spec 1 Ql (Stl) 14.7 g/dL 13.0 - 18.0 g/dL [facility] Interpretation and review of laboratory results Abnormal [facility] Lymphocytes (Bld) [#/Vol] 0.8 10*3/uL Low 1.0 - 4.3 10*3/uL [facility] Lymphocytes/100 WBC (Bld) 9.9 % Low 20.0 - 40.0 % [facility] MCH (RBC) [Entitic mass] 30.7 pg 26. 0 - 34.0 pg [facility] MCHC (RBC) [Mass/Vol] 32.9 % 32.0 - 36.0 % [facility] MCV (RBC) [Entitic vol] 93.1 fL 80.0 - 98.0 fL [facility] Monocytes (Bld) [#/Vol] 0.7 10*3/uL 0.0 - 0.8 10*3/uL [facility] Monocytes/100 WBC (Bld) 8.9 % 2.0 - 10.0 % [facility] Platelet distribution width (Bld) [Ratio] 14.8 % High 11.5 - 14.5 % [facility] Platelet mean volume (Bld) [Entitic vol] 9.1 fL 7.4 - 10.4 fL [facility] Platelets (Bld) [#/Vol] 167 10*3/uL 140 - 440 10*3/uL [facility] RBC (Bld) [#/Vol] 4.81 10*6/uL 4.40 - 5.9 0 10*6/uL [facility] WBC (Bld) [#/Vol] 8.4 10*3/uL 3.6 - 10.7 10*3/uL [facility] Test Performed by [facility], [address] [place] [id number] [place] [address] LAB [facility] Calciumon 12-18-2021 Calcium [Mass/Vol] 10.3 mg/dL Normal 8.4-10.4 [facility] Comment on above: Performed By: #### H EMDF, BUN3, GLUC3, URIC3, BILF3, FEIBC, PHOS3, MG3, HA1C2, CA3, FK5 #### [address] [address] #### IGMO, IGAO, EBVPO, IGGO, CMVLO #### The performing lab is in the report. Calcium [Mass/Vol] 10.3 mg/dL 8.4 - 10. 4 mg/dL [facility] (Prograf)on 12-18-2021 FK506 (Prograf) 7.3 ug/L Normal 5.0-20.0 [facility] Comment on above: Result Comment: Test performed using Chemiluminescent Microparticle Immunoassay (CMIA; [employer] [facility]) Performed By: #### H EMDF, BUN3, GLUC3, URIC3, BILF3, FEIBC, PHOS3, MG3, HA1C2, CA3, FK5 #### [address] [address] #### IGMO, IGAO, EBVPO, IGGO, CMVLO #### The performing lab is in the report. Glucoseon 12-18-2021 Glucose [Mass/Vol] 110 mg/dL High 70-100 [facility] Comment on above: Performed By: #### H EMDF, BUN3, GLUC3, URIC3, BILF3, FEIBC, PHOS3, MG3, HA1C2, CA3, FK5 #### [address] [address] #### IGMO, IGAO, EBVPO, IGGO, CMVLO #### The performing lab is in the report. Glucose, Randomon 12-18-2021 Glucose [Mass/Vol] 110 mg/dL High 70 - 100 mg/dL [facility] Interpretation and review of laboratory results Abnormal [facility] Test Performed by [facility], [address] [place] [address] [facility] Hemoglobin A1Con 12-18-2021 Glucose [Mass/Vol] 117 mg/dL Normal [facility] Comment on above: Performed By: #### H EMDF, BUN3, GLUC3, URIC3, BILF3, FEIBC, PHOS3, MG3, HA1C2, CA3, FK5 #### [address] [address] #### IGMO, IGAO, EBVPO, IGGO, CMVLO #### The performing lab is in the report. HbA1c (Bld) [Mass fraction] 5.7 % Abnormal [facility] Comment on above: Result Comment: Norm al less than 5.7% Prediabetes 5.7% to 6.4% Diabetes 6.5% or higher --HgbA1C levels may not be accurate in patients who have renal disease, received recent blood transfusions, are anemic, or who have dyshemoglobinemia. Performed By: #### H EMDF, BUN3, GLUC3, URIC3, BILF3, FEIBC, PHOS3, MG3, HA1C2, CA3, FK5 #### [address] [address] #### IGMO, IGAO, EBVPO, IGGO, CMVLO #### The performing lab is in the report. HbA1c (Bld) [Mass fraction] 5.7 % Abnormal [facility] Comment on above: Normal less than 5.7 % Prediabetes 5.7% to 6.4% Diabetes 6.5% or higher --HgbA1C levels may not be accurate in patients who have renal disease, received recent blood transfusions, are anemic, or who have dyshemoglobinemia. Interpretation and review of laboratory results Abnormal [facility] Magnesium [Mass/Vol] 117 mg/dL [facility] Test Performed by [id number] [place] [address] LAB [facility] Hemogram w/ Autodiffon 12-18 Abs Baso Cnt 0.0 10*3/uL Normal 0.0-0.2 [facility] Comment on above: Performed By: #### H EMDF, BUN3, GLUC3, URIC3, BILF3, FEIBC, PHOS3, MG3, HA1C2, CA3, FK5 #### [address] [address] #### IGMO, IGAO, EBVPO, IGGO, CMVLO #### The performing lab is in the report. Abs Neutrophile Cnt 6.8 10*3/uL Normal 1.8-7.0 [facility] Comment on above: Performed By: #### H EMDF, BUN3, GLUC3, URIC3, BILF3, FEIBC, PHOS3, MG3, HA1C2, CA3, FK5 #### [address] [address] #### IGMO, IGAO, EBVPO, IGGO, CMVLO #### The performing lab is in the report. Basophils/100 WBC (Bld) 0.2 % Normal 0.0-2.0 [facility] Comment on above: Performed By: #### H EMDF, BUN3, GLUC3, URIC3, BILF3, FEIBC, PHOS3, MG3, HA1C2, CA3, FK5 #### [address] [address] #### IGMO, IGAO, EBVPO, IGGO, CMVLO #### The performing lab is in the report. Eosinophils (Bld) [#/Vol] 0.0 10*3/uL Normal 0.0-0.5 [facility] Comment on above: Performed By: #### H EMDF, BUN3, GLUC3, URIC3, BILF3, FEIBC, PHOS3, MG3, HA1C2, CA3, FK5 #### [address] [address] #### IGMO, IGAO, EBVPO, IGGO, CMVLO #### The performing lab is in the report. Eosinophils/100 WBC (Bld) 0.6 % Low 1.0-6.0 [facility] Comment on above: Performed By: #### H EMDF, BUN3, GLUC3, URIC3, BILF3, FEIBC, PHOS3, MG3, HA1C2, CA3, FK5 #### [address] #### IGMO, IGAO, EBVPO, IGGO, CMVLO #### The performing lab is in the report. Erythrocyte distribution width (RBC) [Ratio] 14.8 % High 11.5-14.5 [facility] Comment on above: Performed By: #### H EMDF, BUN3, GLUC3, URIC3, BILF3, FEIBC, PHOS3, MG3, HA1C2, CA3, FK5 #### [address] #### IGMO, IGAO, EBVPO, IGGO, CMVLO #### The performing lab is in the report. Granulocytes/100 WBC (Bld) 80.4 % High 40.0-80.0 [facility] Comment on above: Performed By: #### H EMDF, BUN3, GLUC3, URIC3, BILF3, FEIBC, PHOS3, MG3, HA1C2, CA3, FK5 #### [address] #### IGMO, IGAO, EBVPO, IGGO, CMVLO #### The performing lab is in the report. Hematocrit (Bld) [Volume fraction] 44.8 % Normal 40.0-52.0 [facility] Comment on above: Performed By: #### H EMDF, BUN3, GLUC3, URIC3, BILF3, FEIBC, PHOS3, MG3, HA1C2, CA3, FK5 #### [address] #### IGMO, IGAO, EBVPO, IGGO, CMVLO #### The performing lab is in the report. Hemoglobin (Bld) [Mass/Vol] 14.7 g/dL Normal 13.0-18.0 [facility] Comment on above: Performed By: #### H EMDF, BUN3, GLUC3, URIC3, BILF3, FEIBC, PHOS3, MG3, HA1C2, CA3, FK5 #### [address] #### IGMO, IGAO, EBVPO, IGGO, CMVLO #### The performing lab is in the report. Lymphocytes (Bld) [#/Vol] 0.8 10*3/uL Low 1.0-4.3 [facility] Comment on above: Performed By: #### H EMDF, BUN3, GLUC3, URIC3, BILF3, FEIBC, PHOS3, MG3, HA1C2, CA3, FK5 #### [facility] [address] [place], [place] #### IGMO, IGAO, EBVPO, IGGO, CMVLO #### The performing lab is in the report. Lymphocytes/100 WBC (Bld) 9.9 % Low 20.0-40.0 [facility] Comment on above: Performed By: #### H EMDF, BUN3, GLUC3, URIC3, BILF3, FEIBC, PHOS3, MG3, HA1C2, CA3, FK5 #### [place] [address] [address] [place], [place] #### IGMO, IGAO, EBVPO, IGGO, CMVLO #### The performing lab is in the report. MCH (RBC) [Entitic mass] 30.7 pg Normal 26.0-34.0 [facility] Comment on above: Performed By: #### H EMDF, BUN3, GLUC3, URIC3, BILF3, FEIBC, PHOS3, MG3, HA1C2, CA3, FK5 #### [place] [address] [address] [place], [place] #### IGMO, IGAO, EBVPO, IGGO, CMVLO #### The performing lab is in the report. MCHC 32.9 % Normal 32.0-36.0 [facility] Comment on above: Performed By: #### H EMDF, BUN3, GLUC3, URIC3, BILF3, FEIBC, PHOS3, MG3, HA1C2, CA3, FK5 #### [place] [address] [address] [place], [place] #### IGMO, IGAO, EBVPO, IGGO, CMVLO #### The performing lab is in the report. MCV (RBC) [Entitic vol] 93.1 fL Normal 80.0-98.0 [facility] Comment on above: Performed By: #### H EMDF, BUN3, GLUC3, URIC3, BILF3, FEIBC, PHOS3, MG3, HA1C2, CA3, FK5 #### [address] #### IGMO, IGAO, EBVPO, IGGO, CMVLO #### The performing lab is in the report. Monocytes (Bld) [#/Vol] 0.7 10*3/uL Normal 0.0-0.8 [facility] Comment on above: Performed By: #### H EMDF, BUN3, GLUC3, URIC3, BILF3, FEIBC, PHOS3, MG3, HA1C2, CA3, FK5 #### [address] #### IGMO, IGAO, EBVPO, IGGO, CMVLO #### The performing lab is in the report. Monocytes/100 WBC (Bld) 8.9 % Normal 2.0-10.0 S [facility] Comment on above: Performed By: #### H EMDF, BUN3, GLUC3, URIC3, BILF3, FEIBC, PHOS3, MG3, HA1C2, CA3, FK5 #### [address] #### IGMO, IGAO, EBVPO, IGGO, CMVLO #### The performing lab is in the report. Platelet mean volume (Bld) [Entitic vol] 9.1 fL Normal 7.4-10.4 [facility] Comment on above: Performed By: #### H EMDF, BUN3, GLUC3, URIC3, BILF3, FEIBC, PHOS3, MG3, HA1C2, CA3, FK5 #### [address] #### IGMO, IGAO, EBVPO, IGGO, CMVLO #### The performing lab is in the report. Platelets (Bld) [#/Vol] 167 10*3/uL Normal 140-440 [facility] Comment on above: Performed By: #### H EMDF, BUN3, GLUC3, URIC3, BILF3, FEIBC, PHOS3, MG3, HA1C2, CA3, FK5 #### [address] [place] [address] [place], [place] #### IGMO, IGAO, EBVPO, IGGO, CMVLO #### The performing lab is in the report. RBC (Bld) [#/Vol] 4.81 10*6/uL Normal 4.40-5.90 [facility] Comment on above: Performed By: #### H EMDF, BUN3, GLUC3, URIC3, BILF3, FEIBC, PHOS3, MG3, HA1C2, CA3, FK5 #### [place] [address] [place], [place] #### IGMO, IGAO, EBVPO, IGGO, CMVLO #### The performing lab is in the report. WBC (Bld) [#/Vol] 8.4 10*3/uL Normal 3.6-10.7 [facility] Comment on above: Performed By: #### H EMDF, BUN3, GLUC3, URIC3, BILF3, FEIBC, PHOS3, MG3, HA1C2, CA3, FK5 #### [address] #### IGMO, IGAO, EBVPO, IGGO, CMVLO #### The performing lab is in the report. Iron AND TIBCon 12-18-2021 Saturation 16 % Normal 15-50 [facility] Comment on above: Performed By: #### H EMDF, BUN3, GLUC3, URIC3, BILF3, FEIBC, PHOS3, MG3, HA1C2, CA3, FK5 #### [address] [address] [place], [place] #### IGMO, IGAO, EBVPO, IGGO, CMVLO #### The performing lab is in the report. Total Iron Binding Cap. 357 ug/dL Normal 261-497 S [facility] Comment on above: Performed By: #### H EMDF, BUN3, GLUC3, URIC3, BILF3, FEIBC, PHOS3, MG3, HA1C2, CA3, FK5 #### [address] [address] #### IGMO, IGAO, EBVPO, IGGO, CMVLO #### The performing lab is in the report. Iron, Total 58 ug/dL Normal 49-181 [facility] Comment on above: Performed By: #### H EMDF, BUN3, GLUC3, URIC3, BILF3, FEIBC, PHOS3, MG3, HA1C2, CA3, FK5 #### [address] [address] #### IGMO, IGAO, EBVPO, IGGO, CMVLO #### The performing lab is in the report. Iron and TIBCon 12-18-2021 Iron [Mass/Vol] 58 ug/dL 49 - 181 ug/dL [facility] Sat 16 % 15 - 50 % [facility] TIBC 357 ug/dL 261 - 497 ug/dL [facility] Test Performed by [address] LAB [facility] Magnesiumon 12-18-2021 Magnesium [Mass/Vol] 1.7 mg/dL Normal 1.6-2.3 [facility] Comment on above: Result Comment: Slig htly hemolysed, interpret with caution. Performed By: #### H EMDF, BUN3, GLUC3, URIC3, BILF3, FEIBC, PHOS3, MG3, HA1C2, CA3, FK5 #### [address] [address] #### IGMO, IGAO, EBVPO, IGGO, CMVLO #### The performing lab is in the report. Magnesium [Mass/Vol] 1.7 mg/dL 1.6 - 2 .3 mg/dL [facility] Comment on above: Slightly hemolysed, interpret with caution. No Panel Informationon 12-18 Interpretation and review of laboratory results Abnormal [facility] Test Performed by [facility], [address] [place] [id number] [place] [address] LAB [facility] Phosphoruson 12-18-2021 Phosphate [Mass/Vol] 4.2 mg/dL Normal 2.5-4.5 [facility] Comment on above: Result Comment: Slig htly hemolysed, interpret with caution. Performed By: #### H EMDF, BUN3, GLUC3, URIC3, BILF3, FEIBC, PHOS3, MG3, HA1C2, CA3, FK5 #### [address] [address] #### IGMO, IGAO, EBVPO, IGGO, CMVLO #### The performing lab is in the report. Phosphate [Mass/Vol] 4.2 mg/dL 2.5 - 4 .5 mg/dL [facility] Comment on above: Slightly hemolysed, interpret with caution. Potassiumon 12-18-2021 Potassium [Moles/Vol] 4.5 mmol/L Normal 3.5-5.1 [facility] Comment on above: Result Comment: Slig htly hemolysed, interpret with caution. Performed By: #### H EMDF, BUN3, GLUC3, URIC3, BILF3, FEIBC, PHOS3, MG3, HA1C2, CA3, FK5 #### [address] #### IGMO, IGAO, EBVPO, IGGO, CMVLO #### The performing lab is in the report. Potassium [Moles/Vol] 4.5 mmol/L 3.5 - 5.1 mmol/L [facility] Comment on above: Slightly hemolysed, interpret with caution. Sodiumon 12-18-2021 Sodium [Moles/Vol] 138 mmol/L Normal 135-145 [facility] Comment on above: Performed By: #### H EMDF, BUN3, GLUC3, URIC3, BILF3, FEIBC, PHOS3, MG3, HA1C2, CA3, FK5 #### [address] [address] #### IGMO, IGAO, EBVPO, IGGO, CMVLO #### The performing lab is in the report. Sodium [Moles/Vol] 138 mmol/L 135 - 145 mmol/L [facility] Tacrolimus Levelon Fk506 (Tacrolimus) 7.3 ug/L 5.0 - 20. 0 ug/L [facility] Comment on above: Test performed using Chemiluminescent Microparticle Immunoassay (CMIA; [employer]) Test Performed by [facility], [address] [place] [address] LAB [facility] Urea Nitrogenon 12-18-2021 Urea nitrogen [Mass/Vol] 20 mg/dL High 7-17 [facility] Comment on above: Performed By: #### H EMDF, BUN3, GLUC3, URIC3, BILF3, FEIBC, PHOS3, MG3, HA1C2, CA3, FK5 #### [address] [address] #### IGMO, IGAO, EBVPO, IGGO, CMVLO #### The performing lab is in the report. Uric Acidon 12-18-2021 Urate [Mass/Vol] 6.6 mg/dL High 2.5-6.2 [facility] Comment on above: Performed By: #### H EMDF, BUN3, GLUC3, URIC3, BILF3, FEIBC, PHOS3, MG3, HA1C2, CA3, FK5 #### [address] [address] #### IGMO, IGAO, EBVPO, IGGO, CMVLO #### The performing lab is in the report. Urate [Mass/Vol] 6.6 mg/dL High 2.5 - 6.2 mg/dL [facility] CMV IgM Abon 11-28-2021 CMV IgM Ab < 8.0 Normal <=29.9 [facility] Comment on above: Result Comment: INTE RPRETIVE INFORMATION: Cytomegalovirus Antibody, IgM 29.9 AU/mL or Less ....... Not Detected 30.0-34.9 AU/mL........... Indeterminate-Repeat testing in 10-14 days may be helpful. 35.0 AU/mL or Greater .... Detected-IgM antibody to CMV detected which may indicate a current or recent infection. However, low levels of IgM antibodies may occasionally persist for more than 12 months post-infection. CMV serology is not useful for the evaluation of active or reactivated infection in immunocompromised patients. Molecular diagnostic tests (i.e. PCR)are preferred in these cases. This test should not be used for blood donor screening, associated re-entry protocols, or for screening Human Cell, Tissues and Cellular and Tissue-Based Products (HCT/P). Performed By: [facility] [address] [place] [id number] Airplane Technician: Melony Otero MD Performed By: #### H EMDF, BUN3, GLUC3, URIC3, BILF3, FEIBC, PHOS3, MG3, HA1C2, CA3, FK5 #### [address] [address] #### IGMO, IGAO, EBVPO, IGGO, CMVLO #### The performing lab is in the report. FK506 (Prograf)on 11-25-2021 FK506 (Prograf) 6.1 ug/L Normal 5.0-20.0 [facility] Comment on above: Result Comment: Test performed using Chemiluminescent Microparticle Immunoassay (CMIA; [employer]) Performed By: #### H EMDF, BUN3, GLUC3, URIC3, BILF3, FEIBC, PHOS3, MG3, HA1C2, CA3, FK5 #### [address] [address] #### IGMO, IGAO, EBVPO, IGGO, CMVLO #### The performing lab is in the report. Bilirubin, Fractionatedon Bilirubin [Mass/Vol] 0.6 mg/dL Normal 0.2-1.3 [facility] Comment on above: Performed By: #### H EMDF, BUN3, GLUC3, URIC3, BILF3, FEIBC, PHOS3, MG3, HA1C2, CA3, FK5 #### [address] [address] #### IGMO, IGAO, EBVPO, IGGO, CMVLO #### The performing lab is in the report. Bilirubin.indirect [Mass/Vol] 0.0 mg/dL Normal 0.0-0.3 [facility] Comment on above: Performed By: #### H EMDF, BUN3, GLUC3, URIC3, BILF3, FEIBC, PHOS3, MG3, HA1C2, CA3, FK5 #### [address] [address] #### IGMO, IGAO, EBVPO, IGGO, CMVLO #### The performing lab is in the report. Calciumon 11-24-2021 Calcium [Mass/Vol] 9.9 mg/dL Normal 8.4-10.4 [facility] Comment on above: Performed By: #### H EMDF, BUN3, GLUC3, URIC3, BILF3, FEIBC, PHOS3, MG3, HA1C2, CA3, FK5 #### [address] [address] #### IGMO, IGAO, EBVPO, IGGO, CMVLO #### The performing lab is in the report. Creatinineon 11-24-2021 Creatinine [Mass/Vol] 1.12 mg/dL Normal 0.52-1.25 [facility] Comment on above: Performed By: #### H EMDF, BUN3, GLUC3, URIC3, BILF3, FEIBC, PHOS3, MG3, HA1C2, CA3, FK5 #### [address] [address] #### IGMO, IGAO, EBVPO, IGGO, CMVLO #### The performing lab is in the report. GFR/1.73 sq M.predicted among blacks MDRD (S/P/Bld) [Vol rate/Area] 82.5 mL/min/{1.73_m2} Normal >60 [facility] Comment on above: Performed By: #### H EMDF, BUN3, GLUC3, URIC3, BILF3, FEIBC, PHOS3, MG3, HA1C2, CA3, FK5 #### [address] [address] #### IGMO, IGAO, EBVPO, IGGO, CMVLO #### The performing lab is in the report. GFR/1.73 sq M.predicted among non-blacks MDRD (S/P/Bld) [Vol rate/Area] 71.2 mL/min/{1.73_m2} Normal >60 [facility] Comment on above: Result Comment: KDIG O guidelines provide the following GFR categories: Stage GFR(ml/min/1.73 m2) Terms G1 >=90 Normal or high G2 60-89 Mildly decreased* G3a 45-59 Mildly to moderately decreased G3b 30-44 Moderately to severely decreased G4 15-29 Severely decreased G5 <15 Kidney failure *Relative to young adult level. In the absence of evidence of kidney damage, neither GFR category G1 nor G2 fulfill the criteria for CKD. The CKD-EPI equation is validated in individuals 18 years of age and older. Currently the best equation for estimating glomerular filtration rate (GFR) from serum creatinine in children is the Bedside Muniz equation. It is less accurate in patients with extremes of muscle mass, restriction of dietary protein, ingestion of creatine, extra-renal metabolism of creatinine, or treatment with medications that affect renal tubular creatinine secretion. Performed By: #### H EMDF, BUN3, GLUC3, URIC3, BILF3, FEIBC, PHOS3, MG3, HA1C2, CA3, FK5 #### [address] [address] #### IGMO, IGAO, EBVPO, IGGO, CMVLO #### The performing lab is in the report. Electrolyte Panelon 11-24-19 22 Anion gap [Moles/Vol] 10 mmol/L Normal 3-13 [facility] Comment on above: Performed By: #### H EMDF, BUN3, GLUC3, URIC3, BILF3, FEIBC, PHOS3, MG3, HA1C2, CA3, FK5 #### [address] [address] #### IGMO, IGAO, EBVPO, IGGO, CMVLO #### The performing lab is in the report. CO2 [Moles/Vol] 24 mmol/L Normal 22-30 [facility] Comment on above: Performed By: #### H EMDF, BUN3, GLUC3, URIC3, BILF3, FEIBC, PHOS3, MG3, HA1C2, CA3, FK5 #### [address] [address] #### IGMO, IGAO, EBVPO, IGGO, CMVLO #### The performing lab is in the report. Potassium [Moles/Vol] 3.6 mmol/L Normal 3.5-5.1 [facility] Comment on above: Performed By: #### H EMDF, BUN3, GLUC3, URIC3, BILF3, FEIBC, PHOS3, MG3, HA1C2, CA3, FK5 #### [address] [address] #### IGMO, IGAO, EBVPO, IGGO, CMVLO #### The performing lab is in the report. Sodium [Moles/Vol] 140 mmol/L Normal 135-145 [facility] Comment on above: Performed By: #### H EMDF, BUN3, GLUC3, URIC3, BILF3, FEIBC, PHOS3, MG3, HA1C2, CA3, FK5 #### [address] [address] #### IGMO, IGAO, EBVPO, IGGO, CMVLO #### The performing lab is in the report. Chloride [Moles/Vol] 106 mmol/L Normal 98-107 [facility] Comment on above: Performed By: #### H EMDF, BUN3, GLUC3, URIC3, BILF3, FEIBC, PHOS3, MG3, HA1C2, CA3, FK5 #### [address] [address] #### IGMO, IGAO, EBVPO, IGGO, CMVLO #### The performing lab is in the report. Glucoseon 11-24-2021 Glucose [Mass/Vol] 65 mg/dL Low 70-100 [facility] Comment on above: Performed By: #### H EMDF, BUN3, GLUC3, URIC3, BILF3, FEIBC, PHOS3, MG3, HA1C2, CA3, FK5 #### [address] [address] #### IGMO, IGAO, EBVPO, IGGO, CMVLO #### The performing lab is in the report. Hemogram w/ Autodiffon 11-24 Abs Baso Cnt 0.0 10*3/uL Normal 0.0-0.2 [facility] Comment on above: Performed By: #### H EMDF, BUN3, GLUC3, URIC3, BILF3, FEIBC, PHOS3, MG3, HA1C2, CA3, FK5 #### [address] #### IGMO, IGAO, EBVPO, IGGO, CMVLO #### The performing lab is in the report. Abs Neutrophile Cnt 4.0 10*3/uL Normal 1.8-7.0 [facility] Comment on above: Performed By: #### H EMDF, BUN3, GLUC3, URIC3, BILF3, FEIBC, PHOS3, MG3, HA1C2, CA3, FK5 #### [address] [address] #### IGMO, IGAO, EBVPO, IGGO, CMVLO #### The performing lab is in the report. Basophils/100 WBC (Bld) 0.5 % Normal 0.0-2.0 [facility] Comment on above: Performed By: #### H EMDF, BUN3, GLUC3, URIC3, BILF3, FEIBC, PHOS3, MG3, HA1C2, CA3, FK5 #### [address] #### IGMO, IGAO, EBVPO, IGGO, CMVLO #### The performing lab is in the report. Eosinophils (Bld) [#/Vol] 0.0 10*3/uL Normal 0.0-0.5 [facility] Comment on above: Performed By: #### H EMDF, BUN3, GLUC3, URIC3, BILF3, FEIBC, PHOS3, MG3, HA1C2, CA3, FK5 #### [address] #### IGMO, IGAO, EBVPO, IGGO, CMVLO #### The performing lab is in the report. Eosinophils/100 WBC (Bld) 0.9 % Low 1.0-6.0 [facility] Comment on above: Performed By: #### H EMDF, BUN3, GLUC3, URIC3, BILF3, FEIBC, PHOS3, MG3, HA1C2, CA3, FK5 #### [address] #### IGMO, IGAO, EBVPO, IGGO, CMVLO #### The performing lab is in the report. Erythrocyte distribution width (RBC) [Ratio] 14.8 % High 11.5-14.5 [facility] Comment on above: Performed By: #### H EMDF, BUN3, GLUC3, URIC3, BILF3, FEIBC, PHOS3, MG3, HA1C2, CA3, FK5 #### [address] #### IGMO, IGAO, EBVPO, IGGO, CMVLO #### The performing lab is in the report. Granulocytes/100 WBC (Bld) 70.2 % Normal 40.0-80.0 [facility] Comment on above: Performed By: #### H EMDF, BUN3, GLUC3, URIC3, BILF3, FEIBC, PHOS3, MG3, HA1C2, CA3, FK5 #### [address] #### IGMO, IGAO, EBVPO, IGGO, CMVLO #### The performing lab is in the report. Hematocrit (Bld) [Volume fraction] 44.4 % Normal 40.0-52.0 [facility] Comment on above: Performed By: #### H EMDF, BUN3, GLUC3, URIC3, BILF3, FEIBC, PHOS3, MG3, HA1C2, CA3, FK5 #### [address] [address] #### IGMO, IGAO, EBVPO, IGGO, CMVLO #### The performing lab is in the report. Hemoglobin (Bld) [Mass/Vol] 14.3 g/dL Normal 13.0-18.0 [facility] Comment on above: Performed By: #### H EMDF, BUN3, GLUC3, URIC3, BILF3, FEIBC, PHOS3, MG3, HA1C2, CA3, FK5 #### [address] [address] #### IGMO, IGAO, EBVPO, IGGO, CMVLO #### The performing lab is in the report. Lymphocytes (Bld) [#/Vol] 1.1 10*3/uL Normal 1.0-4.3 [facility] Comment on above: Performed By: #### H EMDF, BUN3, GLUC3, URIC3, BILF3, FEIBC, PHOS3, MG3, HA1C2, CA3, FK5 #### [address] [address] #### IGMO, IGAO, EBVPO, IGGO, CMVLO #### The performing lab is in the report. Lymphocytes/100 WBC (Bld) 19.0 % Low 20.0-40.0 [facility] Comment on above: Performed By: #### H EMDF, BUN3, GLUC3, URIC3, BILF3, FEIBC, PHOS3, MG3, HA1C2, CA3, FK5 #### [address] [address] #### IGMO, IGAO, EBVPO, IGGO, CMVLO #### The performing lab is in the report. MCH (RBC) [Entitic mass] 30.3 pg Normal 26.0-34.0 [facility] Comment on above: Performed By: #### H EMDF, BUN3, GLUC3, URIC3, BILF3, FEIBC, PHOS3, MG3, HA1C2, CA3, FK5 #### [address] [address] #### IGMO, IGAO, EBVPO, IGGO, CMVLO #### The performing lab is in the report. MCHC 32.3 % Normal 32.0-36.0 [facility] Comment on above: Performed By: #### H EMDF, BUN3, GLUC3, URIC3, BILF3, FEIBC, PHOS3, MG3, HA1C2, CA3, FK5 #### [address] [address] #### IGMO, IGAO, EBVPO, IGGO, CMVLO #### The performing lab is in the report. MCV (RBC) [Entitic vol] 93.7 fL Normal 80.0-98.0 S [facility] Comment on above: Performed By: #### H EMDF, BUN3, GLUC3, URIC3, BILF3, FEIBC, PHOS3, MG3, HA1C2, CA3, FK5 #### [address] [address] #### IGMO, IGAO, EBVPO, IGGO, CMVLO #### The performing lab is in the report. Monocytes (Bld) [#/Vol] 0.5 10*3/uL Normal 0.0-0.8 [facility] Comment on above: Performed By: #### H EMDF, BUN3, GLUC3, URIC3, BILF3, FEIBC, PHOS3, MG3, HA1C2, CA3, FK5 #### [address] [address] #### IGMO, IGAO, EBVPO, IGGO, CMVLO #### The performing lab is in the report. Monocytes/100 WBC (Bld) 9.4 % Normal 2.0-10.0 S [facility] Comment on above: Performed By: #### H EMDF, BUN3, GLUC3, URIC3, BILF3, FEIBC, PHOS3, MG3, HA1C2, CA3, FK5 #### [address] [place] [address] #### IGMO, IGAO, EBVPO, IGGO, CMVLO #### The performing lab is in the report. Platelet mean volume (Bld) [Entitic vol] 8.8 fL Normal 7.4-10.4 [facility] Comment on above: Performed By: #### H EMDF, BUN3, GLUC3, URIC3, BILF3, FEIBC, PHOS3, MG3, HA1C2, CA3, FK5 #### [address] [address] #### IGMO, IGAO, EBVPO, IGGO, CMVLO #### The performing lab is in the report. Platelets (Bld) [#/Vol] 184 10*3/uL Normal 140-440 [facility] Comment on above: Performed By: #### H EMDF, BUN3, GLUC3, URIC3, BILF3, FEIBC, PHOS3, MG3, HA1C2, CA3, FK5 #### [address] [address] #### IGMO, IGAO, EBVPO, IGGO, CMVLO #### The performing lab is in the report. RBC (Bld) [#/Vol] 4.74 10*6/uL Normal 4.40-5.90 [facility] Comment on above: Performed By: #### H EMDF, BUN3, GLUC3, URIC3, BILF3, FEIBC, PHOS3, MG3, HA1C2, CA3, FK5 #### [address] [address] #### IGMO, IGAO, EBVPO, IGGO, CMVLO #### The performing lab is in the report. WBC (Bld) [#/Vol] 5.8 10*3/uL Normal 3.6-10.7 [facility] Comment on above: Performed By: #### H EMDF, BUN3, GLUC3, URIC3, BILF3, FEIBC, PHOS3, MG3, HA1C2, CA3, FK5 #### [address] [address] #### IGMO, IGAO, EBVPO, IGGO, CMVLO #### The performing lab is in the report. Magnesiumon 11-24-2021 Magnesium [Mass/Vol] 1.9 mg/dL Normal 1.6-2.3 [facility] Comment on above: Performed By: #### H EMDF, BUN3, GLUC3, URIC3, BILF3, FEIBC, PHOS3, MG3, HA1C2, CA3, FK5 #### [address] [address] #### IGMO, IGAO, EBVPO, IGGO, CMVLO #### The performing lab is in the report. Phosphoruson 11-24-2021 Phosphate [Mass/Vol] 3.2 mg/dL Normal 2.5-4.5 [facility] Comment on above: Performed By: #### H EMDF, BUN3, GLUC3, URIC3, BILF3, FEIBC, PHOS3, MG3, HA1C2, CA3, FK5 #### [address] [address] #### IGMO, IGAO, EBVPO, IGGO, CMVLO #### The performing lab is in the report. Urea Nitrogenon 11-24-2021 Urea nitrogen [Mass/Vol] 21 mg/dL High 7-17 [facility] Comment on above: Performed By: #### H EMDF, BUN3, GLUC3, URIC3, BILF3, FEIBC, PHOS3, MG3, HA1C2, CA3, FK5 #### [address] [address] #### IGMO, IGAO, EBVPO, IGGO, CMVLO #### The performing lab is in the report. Uric Acidon 11-24-2021 Urate [Mass/Vol] 7.4 mg/dL High 2.5-6.2 [facility] Comment on above: Performed By: #### H EMDF, BUN3, GLUC3, URIC3, BILF3, FEIBC, PHOS3, MG3, HA1C2, CA3, FK5 #### [address] [address] #### IGMO, IGAO, EBVPO, IGGO, CMVLO #### The performing lab is in the report. CMV IgM Abon 10-28-2021 CMV IgM Ab < 8.0 Normal <=29.9 [facility] Comment on above: Result Comment: INTE RPRETIVE INFORMATION: Cytomegalovirus Antibody, IgM 29.9 AU/mL or Less ....... Not Detected 30.0-34.9 AU/mL........... Indeterminate-Repeat testing in 10-14 days may be helpful. 35.0 AU/mL or Greater .... Detected-IgM antibody to CMV detected which may indicate a current or recent infection. However, low levels of IgM antibodies may occasionally persist for more than 12 months post-infection. CMV serology is not useful for the evaluation of active or reactivated infection in immunocompromised patients. Molecular diagnostic tests (i.e. PCR)are preferred in these cases. This test should not be used for blood donor screening, associated re-entry protocols, or for screening Human Cell, Tissues and Cellular and Tissue-Based Products (HCT/P). Performed By: [facility] [address] [place] [address] Airplane Technician: Melony Otero MD Performed By: #### H EMDF, BUN3, GLUC3, URIC3, BILF3, FEIBC, PHOS3, MG3, HA1C2, CA3, FK5 #### [address] [address] #### IGMO, IGAO, EBVPO, IGGO, CMVLO #### The performing lab is in the report. Immunoglobulin Aon Immunoglobulin A 81 mg/dL Normal 68-408 [facility] Comment on above: Result Comment: REFE RENCE INTERVAL: Immunoglobulin A Access complete set of age- and/or gender-specific reference intervals for this test in the [facility] Test Directory ([employer]). Performed By: [facility] [address] [place] [address] Airplane Technician: Melony Otero MD Performed By: #### H EMDF, BUN3, GLUC3, URIC3, BILF3, FEIBC, PHOS3, MG3, HA1C2, CA3, FK5 #### [address] [address] #### IGMO, IGAO, EBVPO, IGGO, CMVLO #### The performing lab is in the report. Immunoglobulin Enrique 2 Immunoglobulin G 666 mg/dL Low 768-1632 [facility] Comment on above: Result Comment: REFE RENCE INTERVAL: Immunoglobulin G Access complete set of age- and/or gender-specific reference intervals for this test in the [facility] Test Directory ([employer]). Performed By: [facility] [address] [place] [address] Airplane Technician: Melony Otero MD Performed By: #### H EMDF, BUN3, GLUC3, URIC3, BILF3, FEIBC, PHOS3, MG3, HA1C2, CA3, FK5 #### [address] [address] #### IGMO, IGAO, EBVPO, IGGO, CMVLO #### The performing lab is in the report. Immunoglobulin Mon 2 Immunoglobulin M 23 mg/dL Low 35-263 [facility] Comment on above: Result Comment: REFE RENCE INTERVAL: Immunoglobulin M Access complete set of age- and/or gender-specific reference intervals for this test in the [facility] Test Directory ([employer]). Performed By: [facility] [address] [place] [address] Airplane Technician: Melony Otero MD Performed By: #### H EMDF, BUN3, GLUC3, URIC3, BILF3, FEIBC, PHOS3, MG3, HA1C2, CA3, FK5 #### [facility] [address] [address] #### IGMO, IGAO, EBVPO, IGGO, CMVLO #### The performing lab is in the report. Robel-Mclaughlin Virus Panelon 0 10-23-2021 EBV Viral Capsid Ag IgM < 0.2 Normal S [facility] Comment on above: Performed By: #### H EMDF, BUN3, GLUC3, URIC3, BILF3, FEIBC, PHOS3, MG3, HA1C2, CA3, FK5 #### [address] #### IGMO, IGAO, EBVPO, IGGO, CMVLO #### The performing lab is in the report. EBV Early Antigen IgG < 0.2 Normal [facility] Comment on above: Result Comment: Inte rpretive Information: Results of 1.1 Leandro or greater = POSITIVE Results of 0.9 Leandro - 1.0 Leandro = EQUIVOCAL Results of 0.8 Leandro or less = NEGATIVE This is a qualitative test. The numeric antibody index reported does not correspond to antibody concentrations. Performed By: #### H EMDF, BUN3, GLUC3, URIC3, BILF3, FEIBC, PHOS3, MG3, HA1C2, CA3, FK5 #### [address] #### IGMO, IGAO, EBVPO, IGGO, CMVLO #### The performing lab is in the report. EBV Nuclear Antigen IgG > 8.0 Abnormal S [facility] Comment on above: Performed By: #### H EMDF, BUN3, GLUC3, URIC3, BILF3, FEIBC, PHOS3, MG3, HA1C2, CA3, FK5 #### [address] #### IGMO, IGAO, EBVPO, IGGO, CMVLO #### The performing lab is in the report. EBV Viral Capsid Ag IgG > 8.0 Abnormal [facility] Comment on above: Performed By: #### H EMDF, BUN3, GLUC3, URIC3, BILF3, FEIBC, PHOS3, MG3, HA1C2, CA3, FK5 #### [address] #### IGMO, IGAO, EBVPO, IGGO, CMVLO #### The performing lab is in the report. FK506 (Prograf)on 10-23-2021 FK506 (Prograf) 9.4 ug/L Normal 5.0-20.0 [facility] Comment on above: Result Comment: Test performed using Chemiluminescent Microparticle Immunoassay (CMIA; [employer]) Performed By: #### H EMDF, BUN3, GLUC3, URIC3, BILF3, FEIBC, PHOS3, MG3, HA1C2, CA3, FK5 #### [address] #### IGMO, IGAO, EBVPO, IGGO, CMVLO #### The performing lab is in the report. ALT (SGPT)on 10-22-2021 ALT [Catalytic activity/Vol] 38 U/L Normal 0-49 [facility] Comment on above: Result Comment: The ALT test is performed by an updated assay method. Please note that the reference intervals have been changed and are now sex specific. Performed By: #### H EMDF, BUN3, GLUC3, URIC3, BILF3, FEIBC, PHOS3, MG3, HA1C2, CA3, FK5 #### [address] #### IGMO, IGAO, EBVPO, IGGO, CMVLO #### The performing lab is in the report. AST (SGOT)on 10-22-2021 AST [Catalytic activity/Vol] 40 U/L Normal 15-46 [facility] Comment on above: Performed By: #### H EMDF, BUN3, GLUC3, URIC3, BILF3, FEIBC, PHOS3, MG3, HA1C2, CA3, FK5 #### [address] #### IGMO, IGAO, EBVPO, IGGO, CMVLO #### The performing lab is in the report. Albumin, Serumon 10-22-2021 Albumin [Mass/Vol] 4.6 g/dL Normal 3.5-5.0 [facility] Comment on above: Performed By: #### H EMDF, BUN3, GLUC3, URIC3, BILF3, FEIBC, PHOS3, MG3, HA1C2, CA3, FK5 #### [address] #### IGMO, IGAO, EBVPO, IGGO, CMVLO #### The performing lab is in the report. Bilirubin, Fractionatedon Bilirubin [Mass/Vol] 0.8 mg/dL Normal 0.2-1.3 [facility] Comment on above: Performed By: #### H EMDF, BUN3, GLUC3, URIC3, BILF3, FEIBC, PHOS3, MG3, HA1C2, CA3, FK5 #### [facility] [address] [place] [address] #### IGMO, IGAO, EBVPO, IGGO, CMVLO #### The performing lab is in the report. Bilirubin.indirect [Mass/Vol] 0.0 mg/dL Normal 0.0-0.3 [facility] Comment on above: Performed By: #### H EMDF, BUN3, GLUC3, URIC3, BILF3, FEIBC, PHOS3, MG3, HA1C2, CA3, FK5 #### [address] [address] #### IGMO, IGAO, EBVPO, IGGO, CMVLO #### The performing lab is in the report. Calciumon 10-22-2021 Calcium [Mass/Vol] 10.0 mg/dL Normal 8.4-10.4 [facility] Comment on above: Performed By: #### H EMDF, BUN3, GLUC3, URIC3, BILF3, FEIBC, PHOS3, MG3, HA1C2, CA3, FK5 #### [address] [address] #### IGMO, IGAO, EBVPO, IGGO, CMVLO #### The performing lab is in the report. Carbon Dioxideon 10-22-2021 CO2 [Moles/Vol] 22 mmol/L Normal 22-30 [facility] Comment on above: Performed By: #### H EMDF, BUN3, GLUC3, URIC3, BILF3, FEIBC, PHOS3, MG3, HA1C2, CA3, FK5 #### [address] [address] #### IGMO, IGAO, EBVPO, IGGO, CMVLO #### The performing lab is in the report. Creatinineon 10-22-2021 Creatinine [Mass/Vol] 1.29 mg/dL High 0.52-1.25 [facility] Comment on above: Performed By: #### H EMDF, BUN3, GLUC3, URIC3, BILF3, FEIBC, PHOS3, MG3, HA1C2, CA3, FK5 #### [address] [address] #### IGMO, IGAO, EBVPO, IGGO, CMVLO #### The performing lab is in the report. GFR/1.73 sq M.predicted among blacks MDRD (S/P/Bld) [Vol rate/Area] 69.6 mL/min/{1.73_m2} Normal >60 [facility] Comment on above: Performed By: #### H EMDF, BUN3, GLUC3, URIC3, BILF3, FEIBC, PHOS3, MG3, HA1C2, CA3, FK5 #### [address] [address] #### IGMO, IGAO, EBVPO, IGGO, CMVLO #### The performing lab is in the report. GFR/1.73 sq M.predicted among non-blacks MDRD (S/P/Bld) [Vol rate/Area] 60.0 mL/min/{1.73_m2} Normal >60 [facility] Comment on above: Result Comment: KDIG O guidelines provide the following GFR categories: Stage GFR(ml/min/1.73 m2) Terms G1 >=90 Normal or high G2 60-89 Mildly decreased* G3a 45-59 Mildly to moderately decreased G3b 30-44 Moderately to severely decreased G4 15-29 Severely decreased G5 <15 Kidney failure *Relative to young adult level. In the absence of evidence of kidney damage, neither GFR category G1 nor G2 fulfill the criteria for CKD. The CKD-EPI equation is validated in individuals 18 years of age and older. Currently the best equation for estimating glomerular filtration rate (GFR) from serum creatinine in children is the Bedside Muniz equation. It is less accurate in patients with extremes of muscle mass, restriction of dietary protein, ingestion of creatine, extra-renal metabolism of creatinine, or treatment with medications that affect renal tubular creatinine secretion. Performed By: #### H EMDF, BUN3, GLUC3, URIC3, BILF3, FEIBC, PHOS3, MG3, HA1C2, CA3, FK5 #### [facility] [address] [place] [address] #### IGMO, IGAO, EBVPO, IGGO, CMVLO #### The performing lab is in the report. Ferritinon 10-22-2021 Ferritin [Mass/Vol] 58 ng/mL Normal 18-464 [facility] Comment on above: Performed By: #### H EMDF, BUN3, GLUC3, URIC3, BILF3, FEIBC, PHOS3, MG3, HA1C2, CA3, FK5 #### [address] [address] [place], [place] #### IGMO, IGAO, EBVPO, IGGO, CMVLO #### The performing lab is in the report. GGTon 10-22-2021 Gamma glutamyl transferase [Catalytic activity/Vol] 45 U/L Normal 12-58 [facility] Comment on above: Performed By: #### H EMDF, BUN3, GLUC3, URIC3, BILF3, FEIBC, PHOS3, MG3, HA1C2, CA3, FK5 #### [address] [address] [place], [place] #### IGMO, IGAO, EBVPO, IGGO, CMVLO #### The performing lab is in the report. Glucoseon 10-22-2021 Glucose [Mass/Vol] 100 mg/dL Normal 70-100 [facility] Comment on above: Performed By: #### H EMDF, BUN3, GLUC3, URIC3, BILF3, FEIBC, PHOS3, MG3, HA1C2, CA3, FK5 #### [address] [place], [place] #### IGMO, IGAO, EBVPO, IGGO, CMVLO #### The performing lab is in the report. Hemoglobin A1Con 10-22-2021 Glucose [Mass/Vol] 120 mg/dL Normal [facility] Comment on above: Performed By: #### H EMDF, BUN3, GLUC3, URIC3, BILF3, FEIBC, PHOS3, MG3, HA1C2, CA3, FK5 #### [address] [address] #### IGMO, IGAO, EBVPO, IGGO, CMVLO #### The performing lab is in the report. HbA1c (Bld) [Mass fraction] 5.8 % Abnormal [facility] Comment on above: Result Comment: Norm al less than 5.7% Prediabetes 5.7% to 6.4% Diabetes 6.5% or higher --HgbA1C levels may not be accurate in patients who have renal disease, received recent blood transfusions, are anemic, or who have dyshemoglobinemia. Performed By: #### H EMDF, BUN3, GLUC3, URIC3, BILF3, FEIBC, PHOS3, MG3, HA1C2, CA3, FK5 #### [address] [address] #### IGMO, IGAO, EBVPO, IGGO, CMVLO #### The performing lab is in the report. Hemogram w/ Autodiffon 10-22 Abs Baso Cnt 0.0 10*3/uL Normal 0.0-0.2 [facility] Comment on above: Performed By: #### H EMDF, BUN3, GLUC3, URIC3, BILF3, FEIBC, PHOS3, MG3, HA1C2, CA3, FK5 #### [address] [address] #### IGMO, IGAO, EBVPO, IGGO, CMVLO #### The performing lab is in the report. Abs Neutrophile Cnt 3.4 10*3/uL Normal 1.8-7.0 [facility] Comment on above: Performed By: #### H EMDF, BUN3, GLUC3, URIC3, BILF3, FEIBC, PHOS3, MG3, HA1C2, CA3, FK5 #### [address] [address] #### IGMO, IGAO, EBVPO, IGGO, CMVLO #### The performing lab is in the report. Basophils/100 WBC (Bld) 0.3 % Normal 0.0-2.0 S [facility] Comment on above: Performed By: #### H EMDF, BUN3, GLUC3, URIC3, BILF3, FEIBC, PHOS3, MG3, HA1C2, CA3, FK5 #### [address] [address] #### IGMO, IGAO, EBVPO, IGGO, CMVLO #### The performing lab is in the report. Eosinophils (Bld) [#/Vol] 0.1 10*3/uL Normal 0.0-0.5 [facility] Comment on above: Performed By: #### H EMDF, BUN3, GLUC3, URIC3, BILF3, FEIBC, PHOS3, MG3, HA1C2, CA3, FK5 #### [address] [address] #### IGMO, IGAO, EBVPO, IGGO, CMVLO #### The performing lab is in the report. Eosinophils/100 WBC (Bld) 1.1 % Normal 1.0-6.0 [facility] Comment on above: Performed By: #### H EMDF, BUN3, GLUC3, URIC3, BILF3, FEIBC, PHOS3, MG3, HA1C2, CA3, FK5 #### [address] [address] #### IGMO, IGAO, EBVPO, IGGO, CMVLO #### The performing lab is in the report. Erythrocyte distribution width (RBC) [Ratio] 14.8 % High 11.5-14.5 [facility] Comment on above: Performed By: #### H EMDF, BUN3, GLUC3, URIC3, BILF3, FEIBC, PHOS3, MG3, HA1C2, CA3, FK5 #### [address] [address] #### IGMO, IGAO, EBVPO, IGGO, CMVLO #### The performing lab is in the report. Granulocytes/100 WBC (Bld) 64.5 % Normal 40.0-80.0 [facility] Comment on above: Performed By: #### H EMDF, BUN3, GLUC3, URIC3, BILF3, FEIBC, PHOS3, MG3, HA1C2, CA3, FK5 #### [address] #### IGMO, IGAO, EBVPO, IGGO, CMVLO #### The performing lab is in the report. Hematocrit (Bld) [Volume fraction] 48.3 % Normal 40.0-52.0 [facility] Comment on above: Performed By: #### H EMDF, BUN3, GLUC3, URIC3, BILF3, FEIBC, PHOS3, MG3, HA1C2, CA3, FK5 #### [address] #### IGMO, IGAO, EBVPO, IGGO, CMVLO #### The performing lab is in the report. Hemoglobin (Bld) [Mass/Vol] 15.9 g/dL Normal 13.0-18.0 [facility] Comment on above: Performed By: #### H EMDF, BUN3, GLUC3, URIC3, BILF3, FEIBC, PHOS3, MG3, HA1C2, CA3, FK5 #### [address] [address] #### IGMO, IGAO, EBVPO, IGGO, CMVLO #### The performing lab is in the report. Lymphocytes (Bld) [#/Vol] 1.2 10*3/uL Normal 1.0-4.3 [facility] Comment on above: Performed By: #### H EMDF, BUN3, GLUC3, URIC3, BILF3, FEIBC, PHOS3, MG3, HA1C2, CA3, FK5 #### [address] #### IGMO, IGAO, EBVPO, IGGO, CMVLO #### The performing lab is in the report. Lymphocytes/100 WBC (Bld) 22.6 % Normal 20.0-40.0 [facility] Comment on above: Performed By: #### H EMDF, BUN3, GLUC3, URIC3, BILF3, FEIBC, PHOS3, MG3, HA1C2, CA3, FK5 #### [address] #### IGMO, IGAO, EBVPO, IGGO, CMVLO #### The performing lab is in the report. MCH (RBC) [Entitic mass] 30.3 pg Normal 26.0-34.0 [facility] Comment on above: Performed By: #### H EMDF, BUN3, GLUC3, URIC3, BILF3, FEIBC, PHOS3, MG3, HA1C2, CA3, FK5 #### [address] #### IGMO, IGAO, EBVPO, IGGO, CMVLO #### The performing lab is in the report. MCHC 32.9 % Normal 32.0-36.0 [facility] Comment on above: Performed By: #### H EMDF, BUN3, GLUC3, URIC3, BILF3, FEIBC, PHOS3, MG3, HA1C2, CA3, FK5 #### [address] #### IGMO, IGAO, EBVPO, IGGO, CMVLO #### The performing lab is in the report. MCV (RBC) [Entitic vol] 92.2 fL Normal 80.0-98.0 [facility] Comment on above: Performed By: #### H EMDF, BUN3, GLUC3, URIC3, BILF3, FEIBC, PHOS3, MG3, HA1C2, CA3, FK5 #### [address] #### IGMO, IGAO, EBVPO, IGGO, CMVLO #### The performing lab is in the report. Monocytes (Bld) [#/Vol] 0.6 10*3/uL Normal 0.0-0.8 [facility] Comment on above: Performed By: #### H EMDF, BUN3, GLUC3, URIC3, BILF3, FEIBC, PHOS3, MG3, HA1C2, CA3, FK5 #### [facility] [address], [place] #### IGMO, IGAO, EBVPO, IGGO, CMVLO #### The performing lab is in the report. Monocytes/100 WBC (Bld) 11.5 % High 2.0-10.0 S [facility] Comment on above: Performed By: #### H EMDF, BUN3, GLUC3, URIC3, BILF3, FEIBC, PHOS3, MG3, HA1C2, CA3, FK5 #### [address] [address] [place], [place] #### IGMO, IGAO, EBVPO, IGGO, CMVLO #### The performing lab is in the report. Platelet mean volume (Bld) [Entitic vol] 9.0 fL Normal 7.4-10.4 [facility] Comment on above: Performed By: #### H EMDF, BUN3, GLUC3, URIC3, BILF3, FEIBC, PHOS3, MG3, HA1C2, CA3, FK5 #### [address] [address] [place], [place] #### IGMO, IGAO, EBVPO, IGGO, CMVLO #### The performing lab is in the report. Platelets (Bld) [#/Vol] 216 10*3/uL Normal 140-440 [facility] Comment on above: Performed By: #### H EMDF, BUN3, GLUC3, URIC3, BILF3, FEIBC, PHOS3, MG3, HA1C2, CA3, FK5 #### [facility] [address] [place], [place] #### IGMO, IGAO, EBVPO, IGGO, CMVLO #### The performing lab is in the report. RBC (Bld) [#/Vol] 5.24 10*6/uL Normal 4.40-5.90 [facility] Comment on above: Performed By: #### H EMDF, BUN3, GLUC3, URIC3, BILF3, FEIBC, PHOS3, MG3, HA1C2, CA3, FK5 #### [address] #### IGMO, IGAO, EBVPO, IGGO, CMVLO #### The performing lab is in the report. WBC (Bld) [#/Vol] 5.3 10*3/uL Normal 3.6-10.7 [facility] Comment on above: Performed By: #### H EMDF, BUN3, GLUC3, URIC3, BILF3, FEIBC, PHOS3, MG3, HA1C2, CA3, FK5 #### [address] #### IGMO, IGAO, EBVPO, IGGO, CMVLO #### The performing lab is in the report. Iron AND TIBCon 10-22-2021 Saturation 33 % Normal 15-50 [facility] Comment on above: Performed By: #### H EMDF, BUN3, GLUC3, URIC3, BILF3, FEIBC, PHOS3, MG3, HA1C2, CA3, FK5 #### [address] #### IGMO, IGAO, EBVPO, IGGO, CMVLO #### The performing lab is in the report. Total Iron Binding Cap. 341 ug/dL Normal 261-497 S [facility] Comment on above: Performed By: #### H EMDF, BUN3, GLUC3, URIC3, BILF3, FEIBC, PHOS3, MG3, HA1C2, CA3, FK5 #### [address] #### IGMO, IGAO, EBVPO, IGGO, CMVLO #### The performing lab is in the report. Iron, Total 113 ug/dL Normal 49-181 [facility] Comment on above: Performed By: #### H EMDF, BUN3, GLUC3, URIC3, BILF3, FEIBC, PHOS3, MG3, HA1C2, CA3, FK5 #### [address] [address] #### IGMO, IGAO, EBVPO, IGGO, CMVLO #### The performing lab is in the report. Magnesiumon 10-22-2021 Magnesium [Mass/Vol] 1.8 mg/dL Normal 1.6-2.3 [facility] Comment on above: Performed By: #### H EMDF, BUN3, GLUC3, URIC3, BILF3, FEIBC, PHOS3, MG3, HA1C2, CA3, FK5 #### [address] [address] #### IGMO, IGAO, EBVPO, IGGO, CMVLO #### The performing lab is in the report. Phosphoruson 10-22-2021 Phosphate [Mass/Vol] 3.4 mg/dL Normal 2.5-4.5 [facility] Comment on above: Performed By: #### H EMDF, BUN3, GLUC3, URIC3, BILF3, FEIBC, PHOS3, MG3, HA1C2, CA3, FK5 #### [address] [address] #### IGMO, IGAO, EBVPO, IGGO, CMVLO #### The performing lab is in the report. Potassiumon 10-22-2021 Potassium [Moles/Vol] 4.0 mmol/L Normal 3.5-5.1 [facility] Comment on above: Performed By: #### H EMDF, BUN3, GLUC3, URIC3, BILF3, FEIBC, PHOS3, MG3, HA1C2, CA3, FK5 #### [address] [address] #### IGMO, IGAO, EBVPO, IGGO, CMVLO #### The performing lab is in the report. Sodiumon 10-22-2021 Sodium [Moles/Vol] 140 mmol/L Normal 135-145 [facility] Comment on above: Performed By: #### H EMDF, BUN3, GLUC3, URIC3, BILF3, FEIBC, PHOS3, MG3, HA1C2, CA3, FK5 #### [facility] [address] [place] [address] #### IGMO, IGAO, EBVPO, IGGO, CMVLO #### The performing lab is in the report. Urea Nitrogenon 10-22-2021 Urea nitrogen [Mass/Vol] 15 mg/dL Normal 7-17 [facility] Comment on above: Performed By: #### H EMDF, BUN3, GLUC3, URIC3, BILF3, FEIBC, PHOS3, MG3, HA1C2, CA3, FK5 #### [facility] [address] [place] [address] #### IGMO, IGAO, EBVPO, IGGO, CMVLO #### The performing lab is in the report. Uric Acidon 10-22-2021 Urate [Mass/Vol] 8.4 mg/dL High 2.5-6.2 [facility] Comment on above: Performed By: #### H EMDF, BUN3, GLUC3, URIC3, BILF3, FEIBC, PHOS3, MG3, HA1C2, CA3, FK5 #### [facility] [address] [place] [address] #### IGMO, IGAO, EBVPO, IGGO, CMVLO #### The performing lab is in the report. CMV IgM Abon 09-24-2021 CMV IgM Ab < 8.0 Normal <=29.9 [facility] Comment on above: Result Comment: INTE RPRETIVE INFORMATION: Cytomegalovirus Antibody, IgM 29.9 AU/mL or Less ....... Not Detected 30.0-34.9 AU/mL........... Indeterminate-Repeat testing in 10-14 days may be helpful. 35.0 AU/mL or Greater .... Detected-IgM antibody to CMV detected which may indicate a current or recent infection. However, low levels of IgM antibodies may occasionally persist for more than 12 months post-infection. CMV serology is not useful for the evaluation of active or reactivated infection in immunocompromised patients. Molecular diagnostic tests (i.e. PCR)are preferred in these cases. This test should not be used for blood donor screening, associated re-entry protocols, or for screening Human Cell, Tissues and Cellular and Tissue-Based Products (HCT/P). Performed By: [facility] [address] [place] [address] Airplane Technician: Melony Otero MD Performed By: #### H EMDF, BUN3, GLUC3, URIC3, BILF3, FEIBC, PHOS3, MG3, HA1C2, CA3, FK5 #### [address] [address] #### IGMO, IGAO, EBVPO, IGGO, CMVLO #### The performing lab is in the report. Immunoglobulin Aon 1 Immunoglobulin A 73 mg/dL Normal 68-408 [facility] Comment on above: Result Comment: REFE RENCE INTERVAL: Immunoglobulin A Access complete set of age- and/or gender-specific reference intervals for this test in the [facility] Test Directory (Arch[employer] Daily). Performed By: [facility] [address] [place] [address] Airplane Technician: Melony Otero MD Performed By: #### H EMDF, BUN3, GLUC3, URIC3, BILF3, FEIBC, PHOS3, MG3, HA1C2, CA3, FK5 #### [address] [address] #### IGMO, IGAO, EBVPO, IGGO, CMVLO #### The performing lab is in the report. Immunoglobulin Enrique 1 Immunoglobulin G 609 mg/dL Low 768-1632 [facility] Comment on above: Result Comment: REFE RENCE INTERVAL: Immunoglobulin G Access complete set of age- and/or gender-specific reference intervals for this test in the [facility] Test Directory (Arch[employer] Daily). Performed By: [facility] [address] [place] [address] Airplane Technician: Melony Otero MD Performed By: #### H EMDF, BUN3, GLUC3, URIC3, BILF3, FEIBC, PHOS3, MG3, HA1C2, CA3, FK5 #### [address] [address] #### IGMO, IGAO, EBVPO, IGGO, CMVLO #### The performing lab is in the report. Immunoglobulin Mon Immunoglobulin M 23 mg/dL Low 35-263 [facility] Comment on above: Result Comment: REFE RENCE INTERVAL: Immunoglobulin M Access complete set of age- and/or gender-specific reference intervals for this test in the [facility] Test Directory (Architectural Daily). Performed By: [facility] [address] [place] [id number] Airplane Technician: Melony Otero MD Performed By: #### H EMDF, BUN3, GLUC3, URIC3, BILF3, FEIBC, PHOS3, MG3, HA1C2, CA3, FK5 #### [address] [address] #### IGMO, IGAO, EBVPO, IGGO, CMVLO #### The performing lab is in the report. Transferrinon 09-23-2021 Transferrin [Mass/Vol] 262 mg/dL Normal 206-381 [facility] Comment on above: Performed By: #### H EMDF, BUN3, GLUC3, URIC3, BILF3, FEIBC, PHOS3, MG3, HA1C2, CA3, FK5 #### [address] [address] #### IGMO, IGAO, EBVPO, IGGO, CMVLO #### The performing lab is in the report. ALT (SGPT)on 09-22-2021 ALT [Catalytic activity/Vol] 23 U/L Normal 0-49 [facility] Comment on above: Result Comment: The ALT test is performed by an updated assay method. Please note that the reference intervals have been changed and are now sex specific. Performed By: #### H EMDF, BUN3, GLUC3, URIC3, BILF3, FEIBC, PHOS3, MG3, HA1C2, CA3, FK5 #### [address] [address] #### IGMO, IGAO, EBVPO, IGGO, CMVLO #### The performing lab is in the report. AST (SGOT)on 09-22-2021 AST [Catalytic activity/Vol] 47 U/L High 15-46 [facility] Comment on above: Performed By: #### H EMDF, BUN3, GLUC3, URIC3, BILF3, FEIBC, PHOS3, MG3, HA1C2, CA3, FK5 #### [address] [address] #### IGMO, IGAO, EBVPO, IGGO, CMVLO #### The performing lab is in the report. Albumin, Serumon 09-22-2021 Albumin [Mass/Vol] 4.4 g/dL Normal 3.5-5.0 [facility] Comment on above: Performed By: #### H EMDF, BUN3, GLUC3, URIC3, BILF3, FEIBC, PHOS3, MG3, HA1C2, CA3, FK5 #### [address] [address] #### IGMO, IGAO, EBVPO, IGGO, CMVLO #### The performing lab is in the report. Alkaline Phosphataseon 09-22 ALP [Catalytic activity/Vol] 79 U/L Normal 38-126 [facility] Comment on above: Performed By: #### H EMDF, BUN3, GLUC3, URIC3, BILF3, FEIBC, PHOS3, MG3, HA1C2, CA3, FK5 #### [address] [address] #### IGMO, IGAO, EBVPO, IGGO, CMVLO #### The performing lab is in the report. Creatinineon 09-22-2021 Creatinine [Mass/Vol] 1.13 mg/dL Normal 0.52-1.25 [facility] Comment on above: Performed By: #### H EMDF, BUN3, GLUC3, URIC3, BILF3, FEIBC, PHOS3, MG3, HA1C2, CA3, FK5 #### [address] #### IGMO, IGAO, EBVPO, IGGO, CMVLO #### The performing lab is in the report. GFR/1.73 sq M.predicted among blacks MDRD (S/P/Bld) [Vol rate/Area] 81.7 mL/min/{1.73_m2} Normal >60 [facility] Comment on above: Performed By: #### H EMDF, BUN3, GLUC3, URIC3, BILF3, FEIBC, PHOS3, MG3, HA1C2, CA3, FK5 #### [address] #### IGMO, IGAO, EBVPO, IGGO, CMVLO #### The performing lab is in the report. GFR/1.73 sq M.predicted among non-blacks MDRD (S/P/Bld) [Vol rate/Area] 70.5 mL/min/{1.73_m2} Normal >60 [facility] Comment on above: Result Comment: KDIG O guidelines provide the following GFR categories: Stage GFR(ml/min/1.73 m2) Terms G1 >=90 Normal or high G2 60-89 Mildly decreased* G3a 45-59 Mildly to moderately decreased G3b 30-44 Moderately to severely decreased G4 15-29 Severely decreased G5 <15 Kidney failure *Relative to young adult level. In the absence of evidence of kidney damage, neither GFR category G1 nor G2 fulfill the criteria for CKD. The CKD-EPI equation is validated in individuals 18 years of age and older. Currently the best equation for estimating glomerular filtration rate (GFR) from serum creatinine in children is the Bedside Muniz equation. It is less accurate in patients with extremes of muscle mass, restriction of dietary protein, ingestion of creatine, extra-renal metabolism of creatinine, or treatment with medications that affect renal tubular creatinine secretion. Performed By: #### H EMDF, BUN3, GLUC3, URIC3, BILF3, FEIBC, PHOS3, MG3, HA1C2, CA3, FK5 #### [address] [address] #### IGMO, IGAO, EBVPO, IGGO, CMVLO #### The performing lab is in the report. Electrolyte Panelon 09-22-20 21 Anion gap [Moles/Vol] 13 mmol/L Normal 3-13 [facility] Comment on above: Performed By: #### H EMDF, BUN3, GLUC3, URIC3, BILF3, FEIBC, PHOS3, MG3, HA1C2, CA3, FK5 #### [facility] [address], [place] #### IGMO, IGAO, EBVPO, IGGO, CMVLO #### The performing lab is in the report. CO2 [Moles/Vol] 22 mmol/L Normal 22-30 [facility] Comment on above: Performed By: #### H EMDF, BUN3, GLUC3, URIC3, BILF3, FEIBC, PHOS3, MG3, HA1C2, CA3, FK5 #### [address] #### IGMO, IGAO, EBVPO, IGGO, CMVLO #### The performing lab is in the report. Chloride [Moles/Vol] 106 mmol/L Normal 98-107 [facility] Comment on above: Performed By: #### H EMDF, BUN3, GLUC3, URIC3, BILF3, FEIBC, PHOS3, MG3, HA1C2, CA3, FK5 #### [address] [address] [place], [place] #### IGMO, IGAO, EBVPO, IGGO, CMVLO #### The performing lab is in the report. Potassium [Moles/Vol] 4.4 mmol/L Normal 3.5-5.1 [facility] Comment on above: Performed By: #### H EMDF, BUN3, GLUC3, URIC3, BILF3, FEIBC, PHOS3, MG3, HA1C2, CA3, FK5 #### [address] #### IGMO, IGAO, EBVPO, IGGO, CMVLO #### The performing lab is in the report. Sodium [Moles/Vol] 142 mmol/L Normal 135-145 [facility] Comment on above: Performed By: #### H EMDF, BUN3, GLUC3, URIC3, BILF3, FEIBC, PHOS3, MG3, HA1C2, CA3, FK5 #### [facility] [address] [place] [address] #### IGMO, IGAO, EBVPO, IGGO, CMVLO #### The performing lab is in the report. Ferritinon 09-22-2021 Ferritin [Mass/Vol] 55 ng/mL Normal 18-464 [facility] Comment on above: Performed By: #### H EMDF, BUN3, GLUC3, URIC3, BILF3, FEIBC, PHOS3, MG3, HA1C2, CA3, FK5 #### [facility] [address] [place] [address] #### IGMO, IGAO, EBVPO, IGGO, CMVLO #### The performing lab is in the report. GGTon 09-22-2021 Gamma glutamyl transferase [Catalytic activity/Vol] 39 U/L Normal 12-58 [facility] Comment on above: Performed By: #### H EMDF, BUN3, GLUC3, URIC3, BILF3, FEIBC, PHOS3, MG3, HA1C2, CA3, FK5 #### [facility] [address] [place] [address] #### IGMO, IGAO, EBVPO, IGGO, CMVLO #### The performing lab is in the report. Bilirubin, Fractionatedon Bilirubin [Mass/Vol] 0.5 mg/dL Normal 0.2-1.3 [facility] Comment on above: Performed By: #### H EMDF, BUN3, GLUC3, URIC3, BILF3, FEIBC, PHOS3, MG3, HA1C2, CA3, FK5 #### [facility] [address] [place] [address] #### IGMO, IGAO, EBVPO, IGGO, CMVLO #### The performing lab is in the report. Bilirubin.indirect [Mass/Vol] 0.0 mg/dL Normal 0.0-0.3 [facility] Comment on above: Performed By: #### H EMDF, BUN3, GLUC3, URIC3, BILF3, FEIBC, PHOS3, MG3, HA1C2, CA3, FK5 #### [address] #### IGMO, IGAO, EBVPO, IGGO, CMVLO #### The performing lab is in the report. Calciumon 09-21-2021 Calcium [Mass/Vol] 10.3 mg/dL Normal 8.4-10.4 [facility] Comment on above: Performed By: #### H EMDF, BUN3, GLUC3, URIC3, BILF3, FEIBC, PHOS3, MG3, HA1C2, CA3, FK5 #### [address] #### IGMO, IGAO, EBVPO, IGGO, CMVLO #### The performing lab is in the report. FK506 (Prograf)on 09-21-2021 FK506 (Prograf) 6.3 ug/L Normal 5.0-20.0 [facility] Comment on above: Result Comment: Test performed using Chemiluminescent Microparticle Immunoassay (CMIA; [email or web address]) Performed By: #### H EMDF, BUN3, GLUC3, URIC3, BILF3, FEIBC, PHOS3, MG3, HA1C2, CA3, FK5 #### [address] #### IGMO, IGAO, EBVPO, IGGO, CMVLO #### The performing lab is in the report. Glucoseon 09-21-2021 Glucose [Mass/Vol] 94 mg/dL Normal 70-100 [facility] Comment on above: Performed By: #### H EMDF, BUN3, GLUC3, URIC3, BILF3, FEIBC, PHOS3, MG3, HA1C2, CA3, FK5 #### [address] #### IGMO, IGAO, EBVPO, IGGO, CMVLO #### The performing lab is in the report. Hemoglobin A1Con 09-21-2021 Glucose [Mass/Vol] 117 mg/dL Normal [facility] Comment on above: Performed By: #### H EMDF, BUN3, GLUC3, URIC3, BILF3, FEIBC, PHOS3, MG3, HA1C2, CA3, FK5 #### [address] [address] #### IGMO, IGAO, EBVPO, IGGO, CMVLO #### The performing lab is in the report. HbA1c (Bld) [Mass fraction] 5.7 % Abnormal [facility] Comment on above: Result Comment: Norm al less than 5.7% Prediabetes 5.7% to 6.4% Diabetes 6.5% or higher --HgbA1C levels may not be accurate in patients who have renal disease, received recent blood transfusions, are anemic, or who have dyshemoglobinemia. Performed By: #### H EMDF, BUN3, GLUC3, URIC3, BILF3, FEIBC, PHOS3, MG3, HA1C2, CA3, FK5 #### [address] [address] #### IGMO, IGAO, EBVPO, IGGO, CMVLO #### The performing lab is in the report. Hemogram w/ Autodiffon 09-21 Abs Baso Cnt 0.0 10*3/uL Normal 0.0-0.2 [facility] Comment on above: Performed By: #### H EMDF, BUN3, GLUC3, URIC3, BILF3, FEIBC, PHOS3, MG3, HA1C2, CA3, FK5 #### [address] [address] #### IGMO, IGAO, EBVPO, IGGO, CMVLO #### The performing lab is in the report. Abs Neutrophile Cnt 3.0 10*3/uL Normal 1.8-7.0 [facility] Comment on above: Performed By: #### H EMDF, BUN3, GLUC3, URIC3, BILF3, FEIBC, PHOS3, MG3, HA1C2, CA3, FK5 #### [address] #### IGMO, IGAO, EBVPO, IGGO, CMVLO #### The performing lab is in the report. Basophils/100 WBC (Bld) 0.4 % Normal 0.0-2.0 S [facility] Comment on above: Performed By: #### H EMDF, BUN3, GLUC3, URIC3, BILF3, FEIBC, PHOS3, MG3, HA1C2, CA3, FK5 #### [address] #### IGMO, IGAO, EBVPO, IGGO, CMVLO #### The performing lab is in the report. Eosinophils (Bld) [#/Vol] 0.1 10*3/uL Normal 0.0-0.5 [facility] Comment on above: Performed By: #### H EMDF, BUN3, GLUC3, URIC3, BILF3, FEIBC, PHOS3, MG3, HA1C2, CA3, FK5 #### [address] #### IGMO, IGAO, EBVPO, IGGO, CMVLO #### The performing lab is in the report. Eosinophils/100 WBC (Bld) 1.4 % Normal 1.0-6.0 [facility] Comment on above: Performed By: #### H EMDF, BUN3, GLUC3, URIC3, BILF3, FEIBC, PHOS3, MG3, HA1C2, CA3, FK5 #### [address] #### IGMO, IGAO, EBVPO, IGGO, CMVLO #### The performing lab is in the report. Erythrocyte distribution width (RBC) [Ratio] 14.4 % Normal 11.5-14.5 [facility] Comment on above: Performed By: #### H EMDF, BUN3, GLUC3, URIC3, BILF3, FEIBC, PHOS3, MG3, HA1C2, CA3, FK5 #### [address] #### IGMO, IGAO, EBVPO, IGGO, CMVLO #### The performing lab is in the report. Granulocytes/100 WBC (Bld) 58.9 % Normal 40.0-80.0 [facility] Comment on above: Performed By: #### H EMDF, BUN3, GLUC3, URIC3, BILF3, FEIBC, PHOS3, MG3, HA1C2, CA3, FK5 #### [address] #### IGMO, IGAO, EBVPO, IGGO, CMVLO #### The performing lab is in the report. Hematocrit (Bld) [Volume fraction] 44.5 % Normal 40.0-52.0 [facility] Comment on above: Performed By: #### H EMDF, BUN3, GLUC3, URIC3, BILF3, FEIBC, PHOS3, MG3, HA1C2, CA3, FK5 #### [address] #### IGMO, IGAO, EBVPO, IGGO, CMVLO #### The performing lab is in the report. Hemoglobin (Bld) [Mass/Vol] 14.6 g/dL Normal 13.0-18.0 [facility] Comment on above: Performed By: #### H EMDF, BUN3, GLUC3, URIC3, BILF3, FEIBC, PHOS3, MG3, HA1C2, CA3, FK5 #### [address] #### IGMO, IGAO, EBVPO, IGGO, CMVLO #### The performing lab is in the report. Lymphocytes (Bld) [#/Vol] 1.4 10*3/uL Normal 1.0-4.3 [facility] Comment on above: Performed By: #### H EMDF, BUN3, GLUC3, URIC3, BILF3, FEIBC, PHOS3, MG3, HA1C2, CA3, FK5 #### [address] #### IGMO, IGAO, EBVPO, IGGO, CMVLO #### The performing lab is in the report. Lymphocytes/100 WBC (Bld) 27.4 % Normal 20.0-40.0 [facility] Comment on above: Performed By: #### H EMDF, BUN3, GLUC3, URIC3, BILF3, FEIBC, PHOS3, MG3, HA1C2, CA3, FK5 #### [address] #### IGMO, IGAO, EBVPO, IGGO, CMVLO #### The performing lab is in the report. MCH (RBC) [Entitic mass] 30.9 pg Normal 26.0-34.0 [facility] Comment on above: Performed By: #### H EMDF, BUN3, GLUC3, URIC3, BILF3, FEIBC, PHOS3, MG3, HA1C2, CA3, FK5 #### [address] #### IGMO, IGAO, EBVPO, IGGO, CMVLO #### The performing lab is in the report. MCHC 32.8 % Normal 32.0-36.0 [facility] Comment on above: Performed By: #### H EMDF, BUN3, GLUC3, URIC3, BILF3, FEIBC, PHOS3, MG3, HA1C2, CA3, FK5 #### [address] #### IGMO, IGAO, EBVPO, IGGO, CMVLO #### The performing lab is in the report. MCV (RBC) [Entitic vol] 94.2 fL Normal 80.0-98.0 S [facility] Comment on above: Performed By: #### H EMDF, BUN3, GLUC3, URIC3, BILF3, FEIBC, PHOS3, MG3, HA1C2, CA3, FK5 #### [address] #### IGMO, IGAO, EBVPO, IGGO, CMVLO #### The performing lab is in the report. Monocytes (Bld) [#/Vol] 0.6 10*3/uL Normal 0.0-0.8 [facility] Comment on above: Performed By: #### H EMDF, BUN3, GLUC3, URIC3, BILF3, FEIBC, PHOS3, MG3, HA1C2, CA3, FK5 #### [address] #### IGMO, IGAO, EBVPO, IGGO, CMVLO #### The performing lab is in the report. Monocytes/100 WBC (Bld) 11.9 % High 2.0-10.0 S [facility] Comment on above: Performed By: #### H EMDF, BUN3, GLUC3, URIC3, BILF3, FEIBC, PHOS3, MG3, HA1C2, CA3, FK5 #### [address] #### IGMO, IGAO, EBVPO, IGGO, CMVLO #### The performing lab is in the report. Platelet mean volume (Bld) [Entitic vol] 8.7 fL Normal 7.4-10.4 [facility] Comment on above: Performed By: #### H EMDF, BUN3, GLUC3, URIC3, BILF3, FEIBC, PHOS3, MG3, HA1C2, CA3, FK5 #### [address] #### IGMO, IGAO, EBVPO, IGGO, CMVLO #### The performing lab is in the report. Platelets (Bld) [#/Vol] 235 10*3/uL Normal 140-440 [facility] Comment on above: Performed By: #### H EMDF, BUN3, GLUC3, URIC3, BILF3, FEIBC, PHOS3, MG3, HA1C2, CA3, FK5 #### [address] #### IGMO, IGAO, EBVPO, IGGO, CMVLO #### The performing lab is in the report. RBC (Bld) [#/Vol] 4.72 10*6/uL Normal 4.40-5.90 [facility] Comment on above: Performed By: #### H EMDF, BUN3, GLUC3, URIC3, BILF3, FEIBC, PHOS3, MG3, HA1C2, CA3, FK5 #### [address] #### IGMO, IGAO, EBVPO, IGGO, CMVLO #### The performing lab is in the report. WBC (Bld) [#/Vol] 5.1 10*3/uL Normal 3.6-10.7 [facility] Comment on above: Performed By: #### H EMDF, BUN3, GLUC3, URIC3, BILF3, FEIBC, PHOS3, MG3, HA1C2, CA3, FK5 #### [address] [address] #### IGMO, IGAO, EBVPO, IGGO, CMVLO #### The performing lab is in the report. Iron AND TIBCon 09-21-2021 Saturation 29 % Normal 15-50 [facility] Comment on above: Performed By: #### H EMDF, BUN3, GLUC3, URIC3, BILF3, FEIBC, PHOS3, MG3, HA1C2, CA3, FK5 #### [address] #### IGMO, IGAO, EBVPO, IGGO, CMVLO #### The performing lab is in the report. Total Iron Binding Cap. 325 ug/dL Normal 261-497 S [facility] Comment on above: Performed By: #### H EMDF, BUN3, GLUC3, URIC3, BILF3, FEIBC, PHOS3, MG3, HA1C2, CA3, FK5 #### [address] #### IGMO, IGAO, EBVPO, IGGO, CMVLO #### The performing lab is in the report. Iron, Total 95 ug/dL Normal 49-181 [facility] Comment on above: Performed By: #### H EMDF, BUN3, GLUC3, URIC3, BILF3, FEIBC, PHOS3, MG3, HA1C2, CA3, FK5 #### [address] [address] #### IGMO, IGAO, EBVPO, IGGO, CMVLO #### The performing lab is in the report. Magnesiumon 09-21-2021 Magnesium [Mass/Vol] 1.9 mg/dL Normal 1.6-2.3 [facility] Comment on above: Performed By: #### H EMDF, BUN3, GLUC3, URIC3, BILF3, FEIBC, PHOS3, MG3, HA1C2, CA3, FK5 #### [address] [address] #### IGMO, IGAO, EBVPO, IGGO, CMVLO #### The performing lab is in the report. Phosphoruson 09-21-2021 Phosphate [Mass/Vol] 4.2 mg/dL Normal 2.5-4.5 [facility] Comment on above: Performed By: #### H EMDF, BUN3, GLUC3, URIC3, BILF3, FEIBC, PHOS3, MG3, HA1C2, CA3, FK5 #### [address] [address] #### IGMO, IGAO, EBVPO, IGGO, CMVLO #### The performing lab is in the report. Urea Nitrogenon 09-21-2021 Urea nitrogen [Mass/Vol] 19 mg/dL High 7-17 [facility] Comment on above: Performed By: #### H EMDF, BUN3, GLUC3, URIC3, BILF3, FEIBC, PHOS3, MG3, HA1C2, CA3, FK5 #### [address] [address] #### IGMO, IGAO, EBVPO, IGGO, CMVLO #### The performing lab is in the report. Uric Acidon 09-21-2021 Urate [Mass/Vol] 8.1 mg/dL High 2.5-6.2 [facility] Comment on above: Performed By: #### H EMDF, BUN3, GLUC3, URIC3, BILF3, FEIBC, PHOS3, MG3, HA1C2, CA3, FK5 #### [email or web address] [address] [address] #### IGMO, IGAO, EBVPO, IGGO, CMVLO #### The performing lab is in the report. CR Wrist Complete 3 Views Le fton 09-01-2021 CR Wrist Complete 3 Views Left Patient Name: NICK HERNÁNDEZ Diagnostic Radiology ACCESSION EXAM DATE/TIME PROCEDURE ORDERING PROVIDER [id number] 09/01/2021 20:06 EST CR Wrist Complete 3 MD CHEUNG KEVIN G Views Left CPT code 40730 Reason For Exam (CR Wrist Complete 3 Views Left) pain Report LEFT WRIST 3 VIEWS CLINICAL INDICATION: pain TECHNIQUE: 3 views of the left wrist. COMPARISON: February,. FINDINGS: Extensive bony fusion and arthrodesis again noted in the radiocarpal, intracarpal and possibly long finger fixation CMC joints. Fixation screw again noted through the ulnar base of thumb proximal phalanx. No acute fracture or dislocation. 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 Diffuse dorsal soft tissue edema. IMPRESSION: 1. No acute osseous abnormality. 2. Postsurgical and degenerative change and soft tissue edema. Report Dictated on Final Dictated: 09/01/2021 8:11 pm Dictating Physician: MD SHORE WENDELL Signed Date and Time: 09/01/2021 8:15 pm Signed by: MD SHORE WENDELL Transcribed Date and Time: 09/01/2021 8:11 Normal [facility] [employer] [facility] XR WRIST LEFT 3 VWon 021 Patient Name: NICK BANKS Diagnostic Radiology ACCESSION EXAM DATE/TIME PROCEDURE ORDERING PROVIDER [id number] 09/01/2021 20:06 EST CR Wrist Complete 3 MD CHEUNG KEVIN G Views Left CPT code 66557 Reason For Exam (CR Wrist Complete 3 Views Left) pain Report LEFT WRIST 3 VIEWS CLINICAL INDICATION: pain TECHNIQUE: 3 views of the left wrist. COMPARISON: February,. FINDINGS: Extensive bony fusion and arthrodesis again noted in the radiocarpal, intracarpal and possibly long finger fixation CMC joints. Fixation screw again noted through the ulnar base of thumb proximal phalanx. No acute fracture or dislocation. 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 Diffuse dorsal soft tissue edema. IMPRESSION: 1. No acute osseous abnormality. 2. Postsurgical and degenerative change and soft tissue edema. Report Dictated on Workstation: [id number] --- Final --- Dictated: 09/01/2021 8:11 pm Dictating Physician: MD SHORE WENDELL Signed Date and Time: 09/01/2021 8:15 pm Signed by: MD SHORE WENDELL Transcribed Date and Time: 09/01/2021 8:11 [facility] Tyler Shore MD - 09/01/2021 [id number] ACCESSION EXAM DATE/TIME PROCEDURE ORDERING PROVIDER [id number] 09/01/2021 20:06 EST CR Wrist Complete 3 MD CHEUNG KEVIN G Views Left CPT code 59998 Reason For Exam (CR Wrist Complete 3 Views Left) pain Report LEFT WRIST 3 VIEWS CLINICAL INDICATION: pain TECHNIQUE: 3 views of the left wrist. COMPARISON: February,. FINDINGS: Extensive bony fusion and arthrodesis again noted in the radiocarpal, intracarpal and possibly long finger fixation CMC joints. Fixation screw again noted through the ulnar base of thumb proximal phalanx. No acute fracture or dislocation. 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 Diffuse dorsal soft tissue edema. IMPRESSION: 1. No acute osseous abnormality. 2. Postsurgical and degenerative change and soft tissue edema. Report Dictated on Workstation: [id number] --- Final --- Dictated: 09/01/2021 8:11 pm Dictating Physician: MD SHORE WENDELL Signed Date and Time: 09/01/2021 8:15 pm Signed by: MD SHORE WENDELL Transcribed Date and Time: 09/01/2021 8:11 [employer] Work Phone: Radiology Study observation (narrative) [employer] Work Phone: XR WRIST LEFT 3 VWOrdered By : Tyler Shore on 09-01-2021 [employer] Work Phone: CMV IgM Abon 08-26-2021 CMV IgM Ab < 8.0 Normal <=29.9 [facility] Comment on above: Result Comment: INTE RPRETIVE INFORMATION: Cytomegalovirus Antibody, IgM 29.9 AU/mL or Less ....... Not Detected 30.0-34.9 AU/mL........... Indeterminate-Repeat testing in 10-14 days may be helpful. 35.0 AU/mL or Greater .... Detected-IgM antibody to CMV detected which may indicate a current or recent infection. However, low levels of IgM antibodies may occasionally persist for more than 12 months post-infection. CMV serology is not useful for the evaluation of active or reactivated infection in immunocompromised patients. Molecular diagnostic tests (i.e. PCR)are preferred in these cases. This test should not be used for blood donor screening, associated re-entry protocols, or for screening Human Cell, Tissues and Cellular and Tissue-Based Products (HCT/P). Performed By: [facility] [address] [place] [id number] Airplane Technician: Melony Otero MD Performed By: #### H EMDF, BUN3, GLUC3, URIC3, BILF3, FEIBC, PHOS3, MG3, HA1C2, CA3, FK5 #### [address] [address] #### IGMO, IGAO, EBVPO, IGGO, CMVLO #### The performing lab is in the report. BILIRUBIN FRACTIONATED, ADUL Ton 08-24-2021 Bilirubin [Mass/Vol] 0.7 mg/dL 0.2 - 1 .3 mg/dL [facility] Bilirubin.indirect [Mass/Vol] 0.0 mg/dL 0.0 - 0.3 mg/dL [facility] Bilirubin, Fractionatedon Bilirubin [Mass/Vol] 0.7 mg/dL Normal 0.2-1.3 [facility] Comment on above: Performed By: #### H EMDF, BUN3, GLUC3, URIC3, BILF3, FEIBC, PHOS3, MG3, HA1C2, CA3, FK5 #### [address] [address] #### IGMO, IGAO, EBVPO, IGGO, CMVLO #### The performing lab is in the report. Bilirubin.indirect [Mass/Vol] 0.0 mg/dL Normal 0.0-0.3 [facility] Comment on above: Performed By: #### H EMDF, BUN3, GLUC3, URIC3, BILF3, FEIBC, PHOS3, MG3, HA1C2, CA3, FK5 #### [address] [address] #### IGMO, IGAO, EBVPO, IGGO, CMVLO #### The performing lab is in the report. CBC Auto Differentialon 11-0 -2020 Absolute Baso # 0.0 10*3/uL 0.0 - 0.2 10*3/uL [facility] Absolute Neut # 3.2 10*3/uL 1.8 - 7.0 10*3/uL [facility] Basophils/100 WBC (Bld) 0.3 % 0.0 - 2.0 % [facility] Eosinophils (Bld) [#/Vol] 0.1 10*3/uL 0.0 - 0.5 10*3/uL [facility] Eosinophils/100 WBC (Bld) 1.5 % 1.0 - 6.0 % [facility] Granulocytes/100 WBC (Bld) 66.9 % 40.0 - 80.0 % [facility] Hematocrit (Bld) [Volume fraction] 42.1 % 40.0 - 52.0 % [facility] Hemoglobin.gastrointesti nal spec 1 Ql (Stl) 13.7 g/dL 13.0 - 18.0 g/dL [facility] Interpretation and review of laboratory results Abnormal [facility] Lymphocytes (Bld) [#/Vol] 0.9 10*3/uL Low 1.0 - 4.3 10*3/uL [facility] Lymphocytes/100 WBC (Bld) 19.6 % Low 20.0 - 40.0 % [facility] MCH (RBC) [Entitic mass] 30.6 pg 26. 0 - 34.0 pg [facility] MCHC (RBC) [Mass/Vol] 32.6 % 32.0 - 36.0 % [facility] MCV (RBC) [Entitic vol] 93.9 fL 80.0 - 98.0 fL [facility] Monocytes (Bld) [#/Vol] 0.6 10*3/uL 0.0 - 0.8 10*3/uL [facility] Monocytes/100 WBC (Bld) 11.7 % High 2.0 - 10.0 % [facility] Platelet distribution width (Bld) [Ratio] 14.8 % High 11.5 - 14.5 % [facility] Platelet mean volume (Bld) [Entitic vol] 8.8 fL 7.4 - 10.4 fL [facility] Platelets (Bld) [#/Vol] 180 10*3/uL 140 - 440 10*3/uL [facility] RBC (Bld) [#/Vol] 4.48 10*6/uL 4.40 - 5.9 0 10*6/uL [facility] WBC (Bld) [#/Vol] 4.7 10*3/uL 3.6 - 10.7 10*3/uL [facility] Test Performed by [address] LAB [facility] Comp Metabolic Panelon 08-24 Albumin [Mass/Vol] 4.3 g/dL Normal 3.5-5.0 [facility] Comment on above: Performed By: #### H EMDF, BUN3, GLUC3, URIC3, BILF3, FEIBC, PHOS3, MG3, HA1C2, CA3, FK5 #### [address] [address] #### IGMO, IGAO, EBVPO, IGGO, CMVLO #### The performing lab is in the report. ALP [Catalytic activity/Vol] 68 U/L Normal 38-126 [facility] Comment on above: Performed By: #### H EMDF, BUN3, GLUC3, URIC3, BILF3, FEIBC, PHOS3, MG3, HA1C2, CA3, FK5 #### [address] #### IGMO, IGAO, EBVPO, IGGO, CMVLO #### The performing lab is in the report. ALT [Catalytic activity/Vol] 26 U/L Normal 0-49 [facility] Comment on above: Result Comment: The ALT test is performed by an updated assay method. Please note that the reference intervals have been changed and are now sex specific. Performed By: #### H EMDF, BUN3, GLUC3, URIC3, BILF3, FEIBC, PHOS3, MG3, HA1C2, CA3, FK5 #### [address] #### IGMO, IGAO, EBVPO, IGGO, CMVLO #### The performing lab is in the report. Anion gap [Moles/Vol] 8 mmol/L Normal 3-13 [facility] Comment on above: Performed By: #### H EMDF, BUN3, GLUC3, URIC3, BILF3, FEIBC, PHOS3, MG3, HA1C2, CA3, FK5 #### [address] #### IGMO, IGAO, EBVPO, IGGO, CMVLO #### The performing lab is in the report. AST [Catalytic activity/Vol] 36 U/L Normal 15-46 [facility] Comment on above: Performed By: #### H EMDF, BUN3, GLUC3, URIC3, BILF3, FEIBC, PHOS3, MG3, HA1C2, CA3, FK5 #### [address] #### IGMO, IGAO, EBVPO, IGGO, CMVLO #### The performing lab is in the report. Calcium [Mass/Vol] 9.6 mg/dL Normal 8.4-10.4 [facility] Comment on above: Performed By: #### H EMDF, BUN3, GLUC3, URIC3, BILF3, FEIBC, PHOS3, MG3, HA1C2, CA3, FK5 #### [address] #### IGMO, IGAO, EBVPO, IGGO, CMVLO #### The performing lab is in the report. Chloride [Moles/Vol] 108 mmol/L High 98-107 [facility] Comment on above: Performed By: #### H EMDF, BUN3, GLUC3, URIC3, BILF3, FEIBC, PHOS3, MG3, HA1C2, CA3, FK5 #### [address] #### IGMO, IGAO, EBVPO, IGGO, CMVLO #### The performing lab is in the report. CO2 [Moles/Vol] 22 mmol/L Normal 22-30 [facility] Comment on above: Performed By: #### H EMDF, BUN3, GLUC3, URIC3, BILF3, FEIBC, PHOS3, MG3, HA1C2, CA3, FK5 #### [address] #### IGMO, IGAO, EBVPO, IGGO, CMVLO #### The performing lab is in the report. Creatinine [Mass/Vol] 0.92 mg/dL Normal 0.52-1.25 [facility] Comment on above: Performed By: #### H EMDF, BUN3, GLUC3, URIC3, BILF3, FEIBC, PHOS3, MG3, HA1C2, CA3, FK5 #### [address] #### IGMO, IGAO, EBVPO, IGGO, CMVLO #### The performing lab is in the report. eGFR OTHER > 90.0 Normal >60 [facility] Comment on above: Result Comment: KDIG O guidelines provide the following GFR categories: Stage GFR(ml/min/1.73 m2) Terms G1 >=90 Normal or high G2 60-89 Mildly decreased* G3a 45-59 Mildly to moderately decreased G3b 30-44 Moderately to severely decreased G4 15-29 Severely decreased G5 <15 Kidney failure *Relative to young adult level. In the absence of evidence of kidney damage, neither GFR category G1 nor G2 fulfill the criteria for CKD. The CKD-EPI equation is validated in individuals 18 years of age and older. Currently the best equation for estimating glomerular filtration rate (GFR) from serum creatinine in children is the Bedside Muniz equation. It is less accurate in patients with extremes of muscle mass, restriction of dietary protein, ingestion of creatine, extra-renal metabolism of creatinine, or treatment with medications that affect renal tubular creatinine secretion. Performed By: #### H EMDF, BUN3, GLUC3, URIC3, BILF3, FEIBC, PHOS3, MG3, HA1C2, CA3, FK5 #### [address] [address] #### IGMO, IGAO, EBVPO, IGGO, CMVLO #### The performing lab is in the report. GFR/1.73 sq M.predicted among blacks MDRD (S/P/Bld) [Vol rate/Area] mL/min/{1.73_m2} Normal >60 [facility] Comment on above: Performed By: #### H EMDF, BUN3, GLUC3, URIC3, BILF3, FEIBC, PHOS3, MG3, HA1C2, CA3, FK5 #### [address] [address] #### IGMO, IGAO, EBVPO, IGGO, CMVLO #### The performing lab is in the report. Glucose [Mass/Vol] 96 mg/dL Normal 70-100 [facility] Comment on above: Performed By: #### H EMDF, BUN3, GLUC3, URIC3, BILF3, FEIBC, PHOS3, MG3, HA1C2, CA3, FK5 #### [address] [address] #### IGMO, IGAO, EBVPO, IGGO, CMVLO #### The performing lab is in the report. Potassium [Moles/Vol] 3.8 mmol/L Normal 3.5-5.1 [facility] Comment on above: Performed By: #### H EMDF, BUN3, GLUC3, URIC3, BILF3, FEIBC, PHOS3, MG3, HA1C2, CA3, FK5 #### [address] #### IGMO, IGAO, EBVPO, IGGO, CMVLO #### The performing lab is in the report. Protein [Mass/Vol] 6.6 g/dL Normal 6.3-8.2 [facility] Comment on above: Performed By: #### H EMDF, BUN3, GLUC3, URIC3, BILF3, FEIBC, PHOS3, MG3, HA1C2, CA3, FK5 #### [address] #### IGMO, IGAO, EBVPO, IGGO, CMVLO #### The performing lab is in the report. Sodium [Moles/Vol] 137 mmol/L Normal 135-145 [facility] Comment on above: Performed By: #### H EMDF, BUN3, GLUC3, URIC3, BILF3, FEIBC, PHOS3, MG3, HA1C2, CA3, FK5 #### [address] #### IGMO, IGAO, EBVPO, IGGO, CMVLO #### The performing lab is in the report. Urea nitrogen [Mass/Vol] 14 mg/dL Normal 7-17 [facility] Comment on above: Performed By: #### H EMDF, BUN3, GLUC3, URIC3, BILF3, FEIBC, PHOS3, MG3, HA1C2, CA3, FK5 #### [address] #### IGMO, IGAO, EBVPO, IGGO, CMVLO #### The performing lab is in the report. Comprehensive Metabolic Pane amaya 08-24-2021 Albumin [Mass/Vol] 4.3 g/dL 3.5 - 5.0 g/dL [facility] [Catalytic activity/Vol] 68 U/L 38 - 126 U/L [facility] ALT [Catalytic activity/Vol] 26 U/L 0 - 49 U/L [facility] Comment on above: The ALT test is perf ormed by an updated assay method. Please note that the reference intervals have been changed and are now sex specific. Anion gap [Moles/Vol] 8 mmol/L 3 - 13 mmol/L [facility] AST [Catalytic activity/Vol] 36 U/L 15 - 46 U/L [facility] Calcium [Mass/Vol] 9.6 mg/dL 8.4 - 10. 4 mg/dL [facility] Chloride [Moles/Vol] 108 mmol/L High 98 - 10 7 mmol/L [facility] CO2 [Moles/Vol] 22 mmol/L 22 - 30 mmol/L [facility] Creatinine [Mass/Vol] 0.92 mg/dL 0.52 - 1.25 mg/dL [facility] EGFR IF NonAfrican [place] >90.0 >60 mL/min [facility] Comment on above: KDIGO guidelines pro vide the following GFR categories: Stage GFR(ml/min/1.73 m2) Terms G1 >=90 Normal or high G2 60-89 Mildly decreased* G3a 45-59 Mildly to moderately decreased G3b 30-44 Moderately to severely decreased G4 15-29 Severely decreased G5 <15 Kidney failure *Relative to young adult level. In the absence of evidence of kidney damage, neither GFR category G1 nor G2 fulfill the criteria for CKD. The CKD-EPI equation is validated in individuals 18 years of age and older. Currently the best equation for estimating glomerular filtration rate (GFR) from serum creatinine in children is the Bedside Muniz equation. It is less accurate in patients with extremes of muscle mass, restriction of dietary protein, ingestion of creatine, extra-renal metabolism of creatinine, or treatment with medications that affect renal tubular creatinine secretion. Free PSA/Total PSA [Mass fraction] 6.6 g/dL 6.3 - 8.2 g/dL [facility] GFR/1.73 sq M.predicted among blacks MDRD (S/P/Bld) [Vol rate/Area] mL/min/{1.73_m2} >60 mL/min [facility] Glucose [Mass/Vol] 96 mg/dL 70 - 100 mg/dL [facility] Potassium [Moles/Vol] 3.8 mmol/L 3.5 - 5.1 mmol/L [facility] Sodium [Moles/Vol] 137 mmol/L 135 - 145 mmol/L [facility] Urea nitrogen (BldV) [Mass/Vol] 14 mg/dL 7 - 17 mg/dL [facility] FK506 (Prograf)on 08-24-2021 FK506 (Prograf) 6.5 ug/L Normal 5.0-20.0 [facility] Comment on above: Result Comment: Test performed using Chemiluminescent Microparticle Immunoassay (CMIA; [employer]) Performed By: #### H EMDF, BUN3, GLUC3, URIC3, BILF3, FEIBC, PHOS3, MG3, HA1C2, CA3, FK5 #### [address] #### IGMO, IGAO, EBVPO, IGGO, CMVLO #### The performing lab is in the report. Hemogram w/ Autodiffon 08-24 Abs Baso Cnt 0.0 10*3/uL Normal 0.0-0.2 [facility] Comment on above: Performed By: #### H EMDF, BUN3, GLUC3, URIC3, BILF3, FEIBC, PHOS3, MG3, HA1C2, CA3, FK5 #### [address] #### IGMO, IGAO, EBVPO, IGGO, CMVLO #### The performing lab is in the report. Abs Neutrophile Cnt 3.2 10*3/uL Normal 1.8-7.0 [facility] Comment on above: Performed By: #### H EMDF, BUN3, GLUC3, URIC3, BILF3, FEIBC, PHOS3, MG3, HA1C2, CA3, FK5 #### [address] #### IGMO, IGAO, EBVPO, IGGO, CMVLO #### The performing lab is in the report. Basophils/100 WBC (Bld) 0.3 % Normal 0.0-2.0 S [facility] Comment on above: Performed By: #### H EMDF, BUN3, GLUC3, URIC3, BILF3, FEIBC, PHOS3, MG3, HA1C2, CA3, FK5 #### [address] #### IGMO, IGAO, EBVPO, IGGO, CMVLO #### The performing lab is in the report. Eosinophils (Bld) [#/Vol] 0.1 10*3/uL Normal 0.0-0.5 [facility] Comment on above: Performed By: #### H EMDF, BUN3, GLUC3, URIC3, BILF3, FEIBC, PHOS3, MG3, HA1C2, CA3, FK5 #### [address] #### IGMO, IGAO, EBVPO, IGGO, CMVLO #### The performing lab is in the report. Eosinophils/100 WBC (Bld) 1.5 % Normal 1.0-6.0 [facility] Comment on above: Performed By: #### H EMDF, BUN3, GLUC3, URIC3, BILF3, FEIBC, PHOS3, MG3, HA1C2, CA3, FK5 #### [address] #### IGMO, IGAO, EBVPO, IGGO, CMVLO #### The performing lab is in the report. Erythrocyte distribution width (RBC) [Ratio] 14.8 % High 11.5-14.5 [facility] Comment on above: Performed By: #### H EMDF, BUN3, GLUC3, URIC3, BILF3, FEIBC, PHOS3, MG3, HA1C2, CA3, FK5 #### [address] #### IGMO, IGAO, EBVPO, IGGO, CMVLO #### The performing lab is in the report. Granulocytes/100 WBC (Bld) 66.9 % Normal 40.0-80.0 [facility] Comment on above: Performed By: #### H EMDF, BUN3, GLUC3, URIC3, BILF3, FEIBC, PHOS3, MG3, HA1C2, CA3, FK5 #### [address] #### IGMO, IGAO, EBVPO, IGGO, CMVLO #### The performing lab is in the report. Hematocrit (Bld) [Volume fraction] 42.1 % Normal 40.0-52.0 [facility] Comment on above: Performed By: #### H EMDF, BUN3, GLUC3, URIC3, BILF3, FEIBC, PHOS3, MG3, HA1C2, CA3, FK5 #### [address] [address] [place], [place] #### IGMO, IGAO, EBVPO, IGGO, CMVLO #### The performing lab is in the report. Hemoglobin (Bld) [Mass/Vol] 13.7 g/dL Normal 13.0-18.0 [facility] Comment on above: Performed By: #### H EMDF, BUN3, GLUC3, URIC3, BILF3, FEIBC, PHOS3, MG3, HA1C2, CA3, FK5 #### [address] [address] #### IGMO, IGAO, EBVPO, IGGO, CMVLO #### The performing lab is in the report. Lymphocytes (Bld) [#/Vol] 0.9 10*3/uL Low 1.0-4.3 [facility] Comment on above: Performed By: #### H EMDF, BUN3, GLUC3, URIC3, BILF3, FEIBC, PHOS3, MG3, HA1C2, CA3, FK5 #### [facility] [employer] [address] #### IGMO, IGAO, EBVPO, IGGO, CMVLO #### The performing lab is in the report. Lymphocytes/100 WBC (Bld) 19.6 % Low 20.0-40.0 [facility] Comment on above: Performed By: #### H EMDF, BUN3, GLUC3, URIC3, BILF3, FEIBC, PHOS3, MG3, HA1C2, CA3, FK5 #### [address] [address] [place], [place] #### IGMO, IGAO, EBVPO, IGGO, CMVLO #### The performing lab is in the report. MCH (RBC) [Entitic mass] 30.6 pg Normal 26.0-34.0 [facility] Comment on above: Performed By: #### H EMDF, BUN3, GLUC3, URIC3, BILF3, FEIBC, PHOS3, MG3, HA1C2, CA3, FK5 #### [address] [address] #### IGMO, IGAO, EBVPO, IGGO, CMVLO #### The performing lab is in the report. MCHC 32.6 % Normal 32.0-36.0 [facility] Comment on above: Performed By: #### H EMDF, BUN3, GLUC3, URIC3, BILF3, FEIBC, PHOS3, MG3, HA1C2, CA3, FK5 #### [address] #### IGMO, IGAO, EBVPO, IGGO, CMVLO #### The performing lab is in the report. MCV (RBC) [Entitic vol] 93.9 fL Normal 80.0-98.0 S [facility] Comment on above: Performed By: #### H EMDF, BUN3, GLUC3, URIC3, BILF3, FEIBC, PHOS3, MG3, HA1C2, CA3, FK5 #### [address] #### IGMO, IGAO, EBVPO, IGGO, CMVLO #### The performing lab is in the report. Monocytes (Bld) [#/Vol] 0.6 10*3/uL Normal 0.0-0.8 [facility] Comment on above: Performed By: #### H EMDF, BUN3, GLUC3, URIC3, BILF3, FEIBC, PHOS3, MG3, HA1C2, CA3, FK5 #### [address] #### IGMO, IGAO, EBVPO, IGGO, CMVLO #### The performing lab is in the report. Monocytes/100 WBC (Bld) 11.7 % High 2.0-10.0 [facility] Comment on above: Performed By: #### H EMDF, BUN3, GLUC3, URIC3, BILF3, FEIBC, PHOS3, MG3, HA1C2, CA3, FK5 #### [facility] [address] [place] [address] #### IGMO, IGAO, EBVPO, IGGO, CMVLO #### The performing lab is in the report. Platelet mean volume (Bld) [Entitic vol] 8.8 fL Normal 7.4-10.4 [facility] Comment on above: Performed By: #### H EMDF, BUN3, GLUC3, URIC3, BILF3, FEIBC, PHOS3, MG3, HA1C2, CA3, FK5 #### [address] [address] #### IGMO, IGAO, EBVPO, IGGO, CMVLO #### The performing lab is in the report. Platelets (Bld) [#/Vol] 180 10*3/uL Normal 140-440 [facility] Comment on above: Performed By: #### H EMDF, BUN3, GLUC3, URIC3, BILF3, FEIBC, PHOS3, MG3, HA1C2, CA3, FK5 #### [facility] [address] [place] [address] #### IGMO, IGAO, EBVPO, IGGO, CMVLO #### The performing lab is in the report. RBC (Bld) [#/Vol] 4.48 10*6/uL Normal 4.40-5.90 [facility] Comment on above: Performed By: #### H EMDF, BUN3, GLUC3, URIC3, BILF3, FEIBC, PHOS3, MG3, HA1C2, CA3, FK5 #### [address] [address] #### IGMO, IGAO, EBVPO, IGGO, CMVLO #### The performing lab is in the report. WBC (Bld) [#/Vol] 4.7 10*3/uL Normal 3.6-10.7 [facility] Comment on above: Performed By: #### H EMDF, BUN3, GLUC3, URIC3, BILF3, FEIBC, PHOS3, MG3, HA1C2, CA3, FK5 #### [address] [address] #### IGMO, IGAO, EBVPO, IGGO, CMVLO #### The performing lab is in the report. Magnesiumon 08-24-2021 Magnesium [Mass/Vol] 1.5 mg/dL Low 1.6-2.3 [facility] Comment on above: Performed By: #### H EMDF, BUN3, GLUC3, URIC3, BILF3, FEIBC, PHOS3, MG3, HA1C2, CA3, FK5 #### [address] [address] #### IGMO, IGAO, EBVPO, IGGO, CMVLO #### The performing lab is in the report. Magnesium [Mass/Vol] 1.5 mg/dL Low 1.6 - 2 .3 mg/dL [facility] No Panel Informationon 08-24 Interpretation and review of laboratory results Abnormal [facility] Test Performed by [address] LAB [facility] Phosphoruson 08-24-2021 Phosphate [Mass/Vol] 2.9 mg/dL Normal 2.5-4.5 [facility] Comment on above: Performed By: #### H EMDF, BUN3, GLUC3, URIC3, BILF3, FEIBC, PHOS3, MG3, HA1C2, CA3, FK5 #### [address] [address] #### IGMO, IGAO, EBVPO, IGGO, CMVLO #### The performing lab is in the report. Phosphate [Mass/Vol] 2.9 mg/dL 2.5 - 4 .5 mg/dL [facility] Tacrolimus Levelon Fk506 (Tacrolimus) 6.5 ug/L 5.0 - 20. 0 ug/L [facility] Comment on above: Test performed using Chemiluminescent Microparticle Immunoassay (CMIA; [employer]) Test Performed by [facility], [address] [place] [address] [facility] Uric Acidon 08-24-2021 Urate [Mass/Vol] 7.4 mg/dL High 2.5-6.2 [facility] Comment on above: Performed By: #### H EMDF, BUN3, GLUC3, URIC3, BILF3, FEIBC, PHOS3, MG3, HA1C2, CA3, FK5 #### [address] [address] #### IGMO, IGAO, EBVPO, IGGO, CMVLO #### The performing lab is in the report. Urate [Mass/Vol] 7.4 mg/dL High 2.5 - 6.2 mg/dL [facility] CMV IgM Abon 07-26-2021 CMV IgM Ab < 8.0 Normal <=29.9 [facility] Comment on above: Result Comment: INTE RPRETIVE INFORMATION: Cytomegalovirus Antibody, IgM 29.9 AU/mL or Less ....... Not Detected 30.0-34.9 AU/mL........... Indeterminate-Repeat testing in 10-14 days may be helpful. 35.0 AU/mL or Greater .... Detected-IgM antibody to CMV detected which may indicate a current or recent infection. However, low levels of IgM antibodies may occasionally persist for more than 12 months post-infection. CMV serology is not useful for the evaluation of active or reactivated infection in immunocompromised patients. Molecular diagnostic tests (i.e. PCR)are preferred in these cases. This test should not be used for blood donor screening, associated re-entry protocols, or for screening Human Cell, Tissues and Cellular and Tissue-Based Products (HCT/P). Performed By: [facility] [address] [place] [address] Airplane Technician: Melony Otero MD Performed By: #### H EMDF, BUN3, GLUC3, URIC3, BILF3, FEIBC, PHOS3, MG3, HA1C2, CA3, FK5 #### [address] [address] #### IGMO, IGAO, EBVPO, IGGO, CMVLO #### The performing lab is in the report. FK506 (Prograf)on 07-26-2021 FK506 (Prograf) 6.5 ug/L Normal 5.0-20.0 [facility] Comment on above: Result Comment: Test performed using Chemiluminescent Microparticle Immunoassay (CMIA; [employer]) Performed By: #### H EMDF, BUN3, GLUC3, URIC3, BILF3, FEIBC, PHOS3, MG3, HA1C2, CA3, FK5 #### [facility] [address] [place] [address] #### IGMO, IGAO, EBVPO, IGGO, CMVLO #### The performing lab is in the report. BILIRUBIN FRACTIONATED, ADUL TOrdered By: Nick Lopez on 07-24-2021 Bilirubin [Mass/Vol] 0.8 mg/dL 0.2 - 1 .3 mg/dL [facility] Work Phone: Bilirubin.indirect [Mass/Vol] 0.0 mg/dL 0.0 - 0.3 mg/dL [facility] Work Phone: BUNOrdered By: Nick Lopez on 07-24-2021 Urea nitrogen (BldV) [Mass/Vol] 19 mg/dL High 7 - 17 mg/dL [facility] Work Phone: Bilirubin, Fractionatedon Bilirubin [Mass/Vol] 0.8 mg/dL Normal 0.2-1.3 [facility] Comment on above: Performed By: #### H EMDF, BUN3, GLUC3, URIC3, BILF3, FEIBC, PHOS3, MG3, HA1C2, CA3, FK5 #### [facility] [address] [place] [address] #### IGMO, IGAO, EBVPO, IGGO, CMVLO #### The performing lab is in the report. Bilirubin.indirect [Mass/Vol] 0.0 mg/dL Normal 0.0-0.3 [facility] Comment on above: Performed By: #### H EMDF, BUN3, GLUC3, URIC3, BILF3, FEIBC, PHOS3, MG3, HA1C2, CA3, FK5 #### [facility] [address] [place] [address] #### IGMO, IGAO, EBVPO, IGGO, CMVLO #### The performing lab is in the report. CBC Auto DifferentialOrdered By: Nick Lopez on 07-24-2021 Absolute Baso # 0.0 10*3/uL 0.0 - 0.2 10*3/uL [facility] Work Phone: 1 Absolute Neut # 5.4 10*3/uL 1.8 - 7.0 10*3/uL [facility] Work Phone: Basophils/100 WBC (Bld) 0.4 % 0.0 - 2.0 % [facility] Work Phone: Eosinophils (Bld) [#/Vol] 0.1 10*3/uL 0.0 - 0.5 10*3/uL [facility] Work Phone: Eosinophils/100 WBC (Bld) 0.8 % Low 1.0 - 6.0 % [facility] Work Phone: Granulocytes/100 WBC (Bld) 80.6 % High 40.0 - 80.0 % [facility] Work Phone: Hematocrit (Bld) [Volume fraction] 43.1 % 40.0 - 52.0 % [facility] Work Phone: Hemoglobin.gastrointesti nal spec 1 Ql (Stl) 14.5 g/dL 13.0 - 18.0 g/dL [facility] Work Phone: [phone] Interpretation and review of laboratory results Abnormal [facility] Work Phone: Lymphocytes (Bld) [#/Vol] 0.7 10*3/uL Low 1.0 - 4.3 10*3/uL [facility] Work Phone: 22 Lymphocytes/100 WBC (Bld) 9.8 % Low 20.0 - 40.0 % [facility] Work Phone: MCH (RBC) [Entitic mass] 31.4 pg 26. 0 - 34.0 pg [facility] Work Phone: 1 MCHC (RBC) [Mass/Vol] 33.6 % 32.0 - 36.0 % [facility] Work Phone: MCV (RBC) [Entitic vol] 93.4 fL 80.0 - 98.0 fL [facility] Work Phone: Monocytes (Bld) [#/Vol] 0.6 10*3/uL 0.0 - 0.8 10*3/uL [facility] Work Phone: 1 Monocytes/100 WBC (Bld) 8.4 % 2.0 - 10.0 % [facility] Work Phone: Platelet distribution width (Bld) [Ratio] 14.7 % High 11.5 - 14.5 % [facility] Phone: Platelet mean volume (Bld) [Entitic vol] 9.0 fL 7.4 - 10.4 fL [facility] Work Phone: Platelets (Bld) [#/Vol] 206 10*3/uL 140 - 440 10*3/uL [facility] Work Phone: RBC (Bld) [#/Vol] 4.62 10*6/uL 4.40 - 5.9 0 10*6/uL [facility] Phone: WBC (Bld) [#/Vol] 6.7 10*3/uL 3.6 - 10.7 10*3/uL [facility] Work Phone: 1 Test Performed by [facility], [address] [place] [address] [facility] Work Phone: 1 [facility] Work Phone: Calciumon 07-24-2021 Calcium [Mass/Vol] 9.7 mg/dL Normal 8.4-10.4 [facility] Comment on above: Performed By: #### H EMDF, BUN3, GLUC3, URIC3, BILF3, FEIBC, PHOS3, MG3, HA1C2, CA3, FK5 #### [address] #### IGMO, IGAO, EBVPO, IGGO, CMVLO #### The performing lab is in the report. CalciumOrdered By: Nick calvert on 07-24-2021 Calcium [Mass/Vol] 9.7 mg/dL 8.4 - 10. 4 mg/dL [facility] Work Phone: Glucoseon 07-24-2021 Glucose [Mass/Vol] 103 mg/dL High 70-100 [facility] Comment on above: Performed By: #### H EMDF, BUN3, GLUC3, URIC3, BILF3, FEIBC, PHOS3, MG3, HA1C2, CA3, FK5 #### [address] #### IGMO, IGAO, EBVPO, IGGO, CMVLO #### The performing lab is in the report. GlucoseOrdered By: Nick calvert on 07-24-2021 Glucose [Mass/Vol] 103 mg/dL High 70 - 100 mg/dL [facility] Work Phone: Hemogram w/ Autodiffon 07-24 Abs Baso Cnt 0.0 10*3/uL Normal 0.0-0.2 [facility] Comment on above: Performed By: #### H EMDF, BUN3, GLUC3, URIC3, BILF3, FEIBC, PHOS3, MG3, HA1C2, CA3, FK5 #### [address] #### IGMO, IGAO, EBVPO, IGGO, CMVLO #### The performing lab is in the report. Abs Neutrophile Cnt 5.4 10*3/uL Normal 1.8-7.0 [facility] Comment on above: Performed By: #### H EMDF, BUN3, GLUC3, URIC3, BILF3, FEIBC, PHOS3, MG3, HA1C2, CA3, FK5 #### [address] #### IGMO, IGAO, EBVPO, IGGO, CMVLO #### The performing lab is in the report. Basophils/100 WBC (Bld) 0.4 % Normal 0.0-2.0 S [facility] Comment on above: Performed By: #### H EMDF, BUN3, GLUC3, URIC3, BILF3, FEIBC, PHOS3, MG3, HA1C2, CA3, FK5 #### [place] [address] #### IGMO, IGAO, EBVPO, IGGO, CMVLO #### The performing lab is in the report. Eosinophils (Bld) [#/Vol] 0.1 10*3/uL Normal 0.0-0.5 [facility] Comment on above: Performed By: #### H EMDF, BUN3, GLUC3, URIC3, BILF3, FEIBC, PHOS3, MG3, HA1C2, CA3, FK5 #### [address] [address] #### IGMO, IGAO, EBVPO, IGGO, CMVLO #### The performing lab is in the report. Eosinophils/100 WBC (Bld) 0.8 % Low 1.0-6.0 [facility] Comment on above: Performed By: #### H EMDF, BUN3, GLUC3, URIC3, BILF3, FEIBC, PHOS3, MG3, HA1C2, CA3, FK5 #### [address] #### IGMO, IGAO, EBVPO, IGGO, CMVLO #### The performing lab is in the report. Erythrocyte distribution width (RBC) [Ratio] 14.7 % High 11.5-14.5 [facility] Comment on above: Performed By: #### H EMDF, BUN3, GLUC3, URIC3, BILF3, FEIBC, PHOS3, MG3, HA1C2, CA3, FK5 #### [address] #### IGMO, IGAO, EBVPO, IGGO, CMVLO #### The performing lab is in the report. Granulocytes/100 WBC (Bld) 80.6 % High 40.0-80.0 [facility] Comment on above: Performed By: #### H EMDF, BUN3, GLUC3, URIC3, BILF3, FEIBC, PHOS3, MG3, HA1C2, CA3, FK5 #### [address] [address] #### IGMO, IGAO, EBVPO, IGGO, CMVLO #### The performing lab is in the report. Hematocrit (Bld) [Volume fraction] 43.1 % Normal 40.0-52.0 [facility] Comment on above: Performed By: #### H EMDF, BUN3, GLUC3, URIC3, BILF3, FEIBC, PHOS3, MG3, HA1C2, CA3, FK5 #### [address] [address] #### IGMO, IGAO, EBVPO, IGGO, CMVLO #### The performing lab is in the report. Hemoglobin (Bld) [Mass/Vol] 14.5 g/dL Normal 13.0-18.0 [facility] Comment on above: Performed By: #### H EMDF, BUN3, GLUC3, URIC3, BILF3, FEIBC, PHOS3, MG3, HA1C2, CA3, FK5 #### [address] [address] #### IGMO, IGAO, EBVPO, IGGO, CMVLO #### The performing lab is in the report. Lymphocytes (Bld) [#/Vol] 0.7 10*3/uL Low 1.0-4.3 [facility] Comment on above: Performed By: #### H EMDF, BUN3, GLUC3, URIC3, BILF3, FEIBC, PHOS3, MG3, HA1C2, CA3, FK5 #### [address] [address] #### IGMO, IGAO, EBVPO, IGGO, CMVLO #### The performing lab is in the report. Lymphocytes/100 WBC (Bld) 9.8 % Low 20.0-40.0 [facility] Comment on above: Performed By: #### H EMDF, BUN3, GLUC3, URIC3, BILF3, FEIBC, PHOS3, MG3, HA1C2, CA3, FK5 #### [address] #### IGMO, IGAO, EBVPO, IGGO, CMVLO #### The performing lab is in the report. MCH (RBC) [Entitic mass] 31.4 pg Normal 26.0-34.0 [facility] Comment on above: Performed By: #### H EMDF, BUN3, GLUC3, URIC3, BILF3, FEIBC, PHOS3, MG3, HA1C2, CA3, FK5 #### [address] #### IGMO, IGAO, EBVPO, IGGO, CMVLO #### The performing lab is in the report. MCHC 33.6 % Normal 32.0-36.0 [facility] Comment on above: Performed By: #### H EMDF, BUN3, GLUC3, URIC3, BILF3, FEIBC, PHOS3, MG3, HA1C2, CA3, FK5 #### [address] #### IGMO, IGAO, EBVPO, IGGO, CMVLO #### The performing lab is in the report. MCV (RBC) [Entitic vol] 93.4 fL Normal 80.0-98.0 S [facility] Comment on above: Performed By: #### H EMDF, BUN3, GLUC3, URIC3, BILF3, FEIBC, PHOS3, MG3, HA1C2, CA3, FK5 #### [address] #### IGMO, IGAO, EBVPO, IGGO, CMVLO #### The performing lab is in the report. Monocytes (Bld) [#/Vol] 0.6 10*3/uL Normal 0.0-0.8 [facility] Comment on above: Performed By: #### H EMDF, BUN3, GLUC3, URIC3, BILF3, FEIBC, PHOS3, MG3, HA1C2, CA3, FK5 #### [address] #### IGMO, IGAO, EBVPO, IGGO, CMVLO #### The performing lab is in the report. Monocytes/100 WBC (Bld) 8.4 % Normal 2.0-10.0 S [facility] Comment on above: Performed By: #### H EMDF, BUN3, GLUC3, URIC3, BILF3, FEIBC, PHOS3, MG3, HA1C2, CA3, FK5 #### [address] #### IGMO, IGAO, EBVPO, IGGO, CMVLO #### The performing lab is in the report. Platelet mean volume (Bld) [Entitic vol] 9.0 fL Normal 7.4-10.4 [facility] Comment on above: Performed By: #### H EMDF, BUN3, GLUC3, URIC3, BILF3, FEIBC, PHOS3, MG3, HA1C2, CA3, FK5 #### [address] #### IGMO, IGAO, EBVPO, IGGO, CMVLO #### The performing lab is in the report. Platelets (Bld) [#/Vol] 206 10*3/uL Normal 140-440 [facility] Comment on above: Performed By: #### H EMDF, BUN3, GLUC3, URIC3, BILF3, FEIBC, PHOS3, MG3, HA1C2, CA3, FK5 #### [address] #### IGMO, IGAO, EBVPO, IGGO, CMVLO #### The performing lab is in the report. RBC (Bld) [#/Vol] 4.62 10*6/uL Normal 4.40-5.90 [facility] Comment on above: Performed By: #### H EMDF, BUN3, GLUC3, URIC3, BILF3, FEIBC, PHOS3, MG3, HA1C2, CA3, FK5 #### [address] [address] #### IGMO, IGAO, EBVPO, IGGO, CMVLO #### The performing lab is in the report. WBC (Bld) [#/Vol] 6.7 10*3/uL Normal 3.6-10.7 [facility] Comment on above: Performed By: #### H EMDF, BUN3, GLUC3, URIC3, BILF3, FEIBC, PHOS3, MG3, HA1C2, CA3, FK5 #### [address] [address] #### IGMO, IGAO, EBVPO, IGGO, CMVLO #### The performing lab is in the report. Magnesiumon 07-24-2021 Magnesium [Mass/Vol] 1.9 mg/dL Normal 1.6-2.3 [facility] Comment on above: Performed By: #### H EMDF, BUN3, GLUC3, URIC3, BILF3, FEIBC, PHOS3, MG3, HA1C2, CA3, FK5 #### [address] [address] #### IGMO, IGAO, EBVPO, IGGO, CMVLO #### The performing lab is in the report. MagnesiumOrdered By: Nick carrera on 07-24-2021 Magnesium [Mass/Vol] 1.9 mg/dL 1.6 - 2 .3 mg/dL [facility] Work Phone: [phone] Panel InformationOrdered By: Nick Lopez on 07-24-2021 Interpretation and review of laboratory results Abnormal [facility] Work Phone: [phone] Test Performed by [facility], [address] [place] [id number] [facility] Work Phone: [phone] [facility] Work Phone: [phone] Phosphoruson 07-24-2021 Phosphate [Mass/Vol] 3.0 mg/dL Normal 2.5-4.5 [facility] Comment on above: Performed By: #### H EMDF, BUN3, GLUC3, URIC3, BILF3, FEIBC, PHOS3, MG3, HA1C2, CA3, FK5 #### [address] [address] #### IGMO, IGAO, EBVPO, IGGO, CMVLO #### The performing lab is in the report. PhosphorusOrdered By: Nick Lopez on 07-24-2021 Phosphate [Mass/Vol] 3.0 mg/dL 2.5 - 4 .5 mg/dL [facility] Work Phone: Urea Nitrogenon 07-24-2021 Urea nitrogen [Mass/Vol] 19 mg/dL High 7-17 [facility] Comment on above: Performed By: #### H EMDF, BUN3, GLUC3, URIC3, BILF3, FEIBC, PHOS3, MG3, HA1C2, CA3, FK5 #### [address] [address] #### IGMO, IGAO, EBVPO, IGGO, CMVLO #### The performing lab is in the report. Uric Acidon 07-24-2021 Urate [Mass/Vol] 8.5 mg/dL High 2.5-6.2 [facility] Comment on above: Performed By: #### H EMDF, BUN3, GLUC3, URIC3, BILF3, FEIBC, PHOS3, MG3, HA1C2, CA3, FK5 #### [address] [address] #### IGMO, IGAO, EBVPO, IGGO, CMVLO #### The performing lab is in the report. Uric AcidOrdered By: Nick carrera on 07-24-2021 Urate [Mass/Vol] 8.5 mg/dL High 2.5 - 6.2 mg/dL [facility] Work Phone: Cardiac stress test EKG stud y TypeOrdered By: Nain Ibarra on 09-29-2021 STRESS ECHOCARDIOGRA M Jerman Protocol PATIENT: Nick Hernández STUDY DATE: 07/15/2021 : 1960 AGE: 61 HT/WT: 180.3 cm (71 91.2 kg in) (200.6 lb) GENDER: M BP: 138 / 80 LOCATION: [place] [id number] PATIENT [facility] STATUS: *ORDERING PHYSICIAN: * Nain Ibarra MD, *FELLOW: * Leola Mares FACC *SUPERVISING PHYSICIAN: Robina Jimenez, *RN: Marilee Hernández *READING PHYSICIAN: Damián Alcaraz *[employer]: Robina Nava [facility] ----- INDICATIONS: CP. ----- HISTORY: Dyslipidemia. Dyslipidemia. Family history of cardiovascular disease. Tobacco use former Hypertension treated Diabetic non insulin dependent Medications: Aspirin. Rosuvastatin (Crestor). Carvedilol (Coreg). JANUVIA. Allergies: BREO, CODEINE, NSAIDS Patient is NPO per policy. ----- CONCLUSIONS SUMMARY: 1. Target HR not achieved. 2. Normal study after maximal exercise. Sensitivity of this study is limited due to submaximal stress. 3. Stress: Functional capacity is above average. 4. Left ventricle: Systolic function is normal by visual assessment. The estimated ejection fraction is 55%. There are no regional wall motion abnormalities. 5. No significant valve disease. 6. Stress ECG conclusions: The stress ECG is normal. Bailey scoring: exercise time of 8 min; maximum ST deviation of 0 mm; no angina; resulting score is 8.0. This score predicts a low risk of cardiac events. ----- STUDY DATA: Stress echocardiogram. Procedure: Initial setup. A baseline ECG was recorded. Surface ECG leads and blood pressure measurements were monitored. Image quality was suboptimal. The study was technically limited due to body habitus, respiratory interference, and small rib spaces. Intravenous imaging enhancement (Definity) was administered to opacify the chamber. Definity lot #: [id number]. Treadmill exercise testing was performed using the Jerman protocol. The patient exercised for 8 min 10 sec, to a maximal work rate of 10.1 mets. Exercise was terminated due to moderate dyspnea and leg pain. Post-stress images were obtained within 90 seconds of peak stress. Transthoracic stress echocardiography. Images were captured at baseline and peak exercise. Exercise was terminated when the patient's Ozzy scale was 17. Limited 2D and color flow Doppler images were acquired and archived for permanent storage and are available for subsequent review. Study status: Routine. Patient status: Outpatient. Pre pain assessment is 0 out of 10. Post pain assessment is 0 out of 10. Location: Echo laboratory. Consent: The procedure was reviewed with the patient and the patient voices understanding. Study completion: The patient tolerated the procedure well. There were no complications. Discharge: Discharge instructions given The patient was discharged to homewhile ambulatory. ----- FINDINGS LEFT VENTRICLE: The cavity size is normal. Wall thickness is normal. Systolic function is normal by visual assessment. The estimated ejection fraction is 55%. There are no regional wall motion abnormalities. RIGHT VENTRICLE: The cavity size is normal. Systolic function is normal. MITRAL VALVE: Structurally normal valve. Leaflet separation is normal. Doppler: Transvalvular velocity is within the normal range. There is no evidence for stenosis. There is no significant regurgitation. AORTIC VALVE: Structurally normal valve. Trileaflet. Cusp separation is normal. Doppler: Transvalvular velocity is within the normal range. There is no stenosis. There is no regurgitation. TRICUSPID VALVE: Structurally normal valve. Leaflet separation is normal. Doppler: Transvalvular velocity is within the normal range. There is no evidence for stenosis. There is mild, 1+ regurgitation. AORTA: Aortic root: The aortic root is normal in size. Ascending aorta: The ascending aorta is normal in size. PERICARDIUM: There is no pericardial effusion. BASELINE ECG: T wave inversion/ST depressions in multiple leads (inferior, V3-6) Normal sinus rhythm. STRESS PROTOCOL: + +---+--- ---------+ +------ --+ +Stage +HR +BP +Symptoms +Comments+ + +---+--- ---------+ +------ --+ +Rest +65 +138/80 (99) +No symptoms. +--------+ + +---+--- --------- (more content not included)... [employer] Work Phone: Rodolfo, [employer] Incoming Cardiology Results From [employer]/Joana - 07/15/2021 2:33 PM EDT STRESS ECHOCARDIOGRAM Jerman Protocol PATIENT: Nick Hernández STUDY DATE: 07/15/2021 : 1960 AGE: 61 HT/WT: 180.3 cm (71 91.2 kg in) (200.6 lb) GENDER: M BP: 138 / 80 LOCATION: [place] [id number] PATIENT Outpatient [facility] STATUS: *ORDERING PHYSICIAN: * Nain Ibarra MD, *FELLOW: * Leola Mares [facility] *SUPERVISING PHYSICIAN: * Tony, *RN: Marilee Hernández *READING PHYSICIAN: Damián Alcaraz *MIDDLE SCHOOL TUTOR: Robina Nava [facility] ----- INDICATIONS: CP. ----- HISTORY: Dyslipidemia. Dyslipidemia. Family history of cardiovascular disease. Tobacco use former Hypertension treated Diabetic non insulin dependent Medications: Aspirin. Rosuvastatin (Crestor). Carvedilol (Coreg). JANUVIA. Allergies: BREO, CODEINE, NSAIDS Patient is NPO per policy. ----- CONCLUSIONS SUMMARY: 1. Target HR not achieved. 2. Normal study after maximal exercise. Sensitivity of this study is limited due to submaximal stress. 3. Stress: Functional capacity is above average. 4. Left ventricle: Systolic function is normal by visual assessment. The estimated ejection fraction is 55%. There are no regional wall motion abnormalities. 5. No significant valve disease. 6. Stress ECG conclusions: The stress ECG is normal. Bailey scoring: exercise time of 8 min; maximum ST deviation of 0 mm; no angina; resulting score is 8.0. This score predicts a low risk of cardiac events. ----- STUDY DATA: Stress echocardiogram. Procedure: Initial setup. A baseline ECG was recorded. Surface ECG leads and blood pressure measurements were monitored. Image quality was suboptimal. The study was technically limited due to body habitus, respiratory interference, and small rib spaces. Intravenous imaging enhancement (Definity) was administered to opacify the chamber. Definity lot #: [id number]. Treadmill exercise testing was performed using the Jerman protocol. The patient exercised for 8 min 10 sec, to a maximal work rate of 10.1 mets. Exercise was terminated due to moderate dyspnea and leg pain. Post-stress images were obtained within 90 seconds of peak stress. Transthoracic stress echocardiography. Images were captured at baseline and peak exercise. Exercise was terminated when the patient's Ozzy scale was 17. Limited 2D and color flow Doppler images were acquired and archived for permanent storage and are available for subsequent review. Study status: Routine. Patient status: Outpatient. Pre pain assessment is 0 out of 10. Post pain assessment is 0 out of 10. Location: Echo laboratory. Consent: The procedure was reviewed with the patient and the patient voices understanding. Study completion: The patient tolerated the procedure well. There were no complications. Discharge: Discharge instructions given The patient was discharged to homewhile ambulatory. ----- FINDINGS LEFT VENTRICLE: The cavity size is normal. Wall thickness is normal. Systolic function is normal by visual assessment. The estimated ejection fraction is 55%. There are no regional wall motion abnormalities. RIGHT VENTRICLE: The cavity size is normal. Systolic function is normal. MITRAL VALVE: Structurally normal valve. Leaflet separation is normal. Doppler: Transvalvular velocity is within the normal range. There is no evidence for stenosis. There is no significant regurgitation. AORTIC VALVE: Structurally normal valve. Trileaflet. Cusp separation is normal. Doppler: Transvalvular velocity is within the normal range. There is no stenosis. There is no regurgitation. TRICUSPID VALVE: Structurally normal valve. Leaflet separation is normal. Doppler: Transvalvular velocity is within the normal range. There is no evidence for stenosis. There is mild, 1+ regurgitation. AORTA: Aortic root: The aortic root is normal in size. Ascending aorta: The ascending aorta is normal in size. PERICARDIUM: There is no pericardial effusion. BASELINE ECG: T wave inversion/ST depressions in multiple leads (inferior, V3-6) Normal sinus rhythm. STRESS PROTOCOL: + +---+--- ---------+ +------ --+ +Stage +HR +BP +Symptoms +Comments+ + +---+--- ---------+ +------ --+ +Rest +65 +138/80 (99) +No symptoms. +--------+ + +---+--- ---------+ +------ --+ +Peak stress +118+170/98 (122)+Moderate dyspnea, leg pain.+Po 99% + (more content not included)... [employer] Work Phone: [phone] [employer] Work Phone: Echo Stress Echo w/wo Contra porsche 07-15-2021 Echo Stress Echo w/wo Contrast Patient Name: NICK HERNÁNDEZ Ultrasound ACCESSION EXAM DATE/TIME PROCEDURE ORDERING PROVIDER [id number] 07/15/2021 11:51 EDT Echo Stress Echo w/wo MD GIA., [facility], NAIN Jimenez Reason For Exam (Echo Stress Echo w/wo Contrast) CP Report STRESS ECHOCARDIOGRAM Jerman Protocol PATIENT: Nick Hernández STUDY DATE: 07/15/2021 : 1960 AGE: 61 HT/WT: 180.3 cm (71 91.2 kg in) (200.6 lb) GENDER: M BP: 138 / 80 LOCATION: [place] [id number] [address] STATUS: *ORDERING PHYSICIAN: * Nain Ibarra MD, *FELLOW: * Leola Mares [facility] *SUPERVISING PHYSICIAN: Robina Jimenez, *RN: Marilee Hernández *READING PHYSICIAN: Damián Alcaraz *MID[employer]CHO[employer] TUTOR: Robina Nava [facility] ----- INDICATIONS: CP. ----- HISTORY: Dyslipidemia. Dyslipidemia. Family history of cardiovascular disease. Tobacco use former Hypertension treated Diabetic non insulin dependent Medications: Aspirin. Rosuvastatin (Crestor). Carvedilol (Coreg). JANUVIA. Allergies: BREO, CODEINE, NSAIDS Patient is NPO per policy. ----- CONCLUSIONS SUMMARY: 1. Target HR not achieved. 2. Normal study after maximal exercise. Sensitivity of this study is limited due to submaximal stress. 3. Stress: Functional capacity is above average. 4. Left ventricle: Systolic function is normal by visual assessment. The estimated ejection fraction is 55%. There are no regional wall motion abnormalities. 5. No significant valve disease. 6. Stress ECG conclusions: The stress ECG is normal. Bailey scoring: exercise time of 8 min; maximum ST deviation of 0 mm; no angina; resulting score is 8.0. This score predicts a low risk of cardiac events. ----- Ultrasound Report STUDY DATA: Stress echocardiogram. Procedure: Initial setup. A baseline ECG was recorded. Surface ECG leads and blood pressure measurements were monitored. Image quality was suboptimal. The study was technically limited due to body habitus, respiratory interference, and small rib spaces. Intravenous imaging enhancement (Definity) was administered to opacify the chamber. Definity lot #: [id number]. Treadmill exercise testing was performed using the Jerman protocol. The patient exercised for 8 min 10 sec, to a maximal work rate of 10.1 mets. Exercise was terminated due to moderate dyspnea and leg pain. Post-stress images were obtained within 90 seconds of peak stress. Transthoracic stress echocardiography. Images were captured at baseline and peak exercise. Exercise was terminated when the patient's Ozzy scale was 17. Limited 2D and color flow Doppler images were acquired and archived for permanent storage and are available for subsequent review. Study status: Routine. Patient status: Outpatient. Pre pain assessment is 0 out of 10. Post pain assessment is 0 out of 10. Location: Echo laboratory. Consent: The procedure was reviewed with the patient and the patient voices understanding. Study completion: The patient tolerated the procedure well. There were no complications. Discharge: Discharge instructions given The patient was discharged to homewhile ambulatory. ----- FINDINGS LEFT VENTRICLE: The cavity size is normal. Wall thickness is normal. Systolic function is normal by visual assessment. The estimated ejection fraction is 55%. There are no regional wall motion abnormalities. RIGHT VENTRICLE: The cavity size is normal. Systolic function is normal. MITRAL VALVE: Structurally normal valve. Leaflet separation is normal. Doppler: Transvalvular velocity is within the normal range. There is no evidence for stenosis. There is no significant regurgitation. AORTIC VALVE: Structurally normal valve. Trileaflet. Cusp separation is normal. Doppler: Transvalvular velocity is within the normal range. There is no stenosis. There is no regurgitation. TRICUSPID VALVE: Structurally normal valve. Leaflet separation is normal. Doppler: Transvalvular velocity is within the normal range. There is no evidence for stenosis. There is mild, 1+ regurgitation. AORTA: Aortic root: The aortic root is normal in size. Ascending aorta: The ascending aorta is normal in size. PERICARDIUM: There is no pericardial effusion. BASELINE ECG: T wave inversion/ST depressions in multiple leads (inferior, V3-6) Normal sinus rhythm. STRESS PROTOCOL: + +---+--- ---------+ +------ --+ +Stage +HR +BP +Symptoms +Comments+ + +---+--- ---------+ +------ --+ +Rest +65 +138/80 (99) +No symp (more content not included)... Normal [employer] CMV by Qualitative PCRon CMV Qual by PCR Not detected Normal [facility] Comment on above: Result Comment: NOT DETECTED - A negative result does not rule out the presence of PCR inhibitors in the patient specimen or assay specific nucleic acid in concentrations below the level of detection by the assay. INTERPRETIVE INFORMATION: Cytomegalovirus Detection by PCR This test was developed and its performance characteristics determined by [facility]. It has not been cleared or approved by the [place] Food and Drug Administration. This test was performed in a CLIA certified laboratory and is intended for clinical purposes. Performed by [facility], Formerly named [facility] [place] [address] [email or web address], Melony Otero MD - Lab. Director Performed By: #### H EMDF, BUN3, GLUC3, URIC3, BILF3, FEIBC, PHOS3, MG3, HA1C2, CA3, FK5 #### [address] [address] #### IGMO, IGAO, EBVPO, IGGO, CMVLO #### The performing lab is in the report. CMV Qual Source Blood Normal [facility] Comment on above: Result Comment: DANIEL ECTED RESULT...Previous above value was blood, verified on 06/23/21 at 21:53 by NIKA . Performed By: #### H EMDF, BUN3, GLUC3, URIC3, BILF3, FEIBC, PHOS3, MG3, HA1C2, CA3, FK5 #### [address] [address] #### IGMO, IGAO, EBVPO, IGGO, CMVLO #### The performing lab is in the report. EBV Ab Panel,IgG AND IgMon 0 06-26-2021 IgG Anti EBNA Ag 103.0 U/mL High 0.0-21.9 [facility] Comment on above: Result Comment: INTE RPRETIVE INFORMATION: Robel-Mclaughlin Virus Antibody to Nuclear Antigen, IgG 17.9 U/mL or less.......Not Detected 18.0-21.9 U/mL..........Indeterminate - Repeat testing in 10-14 days may be helpful. 22.0 U/mL or greater....Detected Performed By: #### H EMDF, BUN3, GLUC3, URIC3, BILF3, FEIBC, PHOS3, MG3, HA1C2, CA3, FK5 #### [address] [address] #### IGMO, IGAO, EBVPO, IGGO, CMVLO #### The performing lab is in the report. IgG Anti EBV Capsid Ag > 750.0 High 0.0-21.9 [facility] Comment on above: Result Comment: INTE RPRETIVE INFORMATION: Robel-Mclaughlin Virus Antibody to Viral Capsid Antigen, IgG 17.9 U/mL or less.......Not Detected 18.0-21.9 U/mL..........Indeterminate - Repeat testing in 10-14 days may be helpful. 22.0 U/mL or greater....Detected Performed By: #### H EMDF, BUN3, GLUC3, URIC3, BILF3, FEIBC, PHOS3, MG3, HA1C2, CA3, FK5 #### [address] [address] #### IGMO, IGAO, EBVPO, IGGO, CMVLO #### The performing lab is in the report. IgG Anti EBV Early Ag < 5.0 Normal 0.0-10.9 [facility] Comment on above: Result Comment: INTE RPRETIVE INFORMATION: Robel-Mclaughlin Virus Antibody to Early D Antigen (EA-D), IgG 8.9 U/mL or less........Not Detected 9.0-10.9 U/mL...........Indeterminate - Repeat testing in 10-14 days may be helpful. 11.0 U/mL or greater....Detected Performed By: [facility] [address] [place] [id number] Airplane Technician: Melony Otero MD Performed By: #### H EMDF, BUN3, GLUC3, URIC3, BILF3, FEIBC, PHOS3, MG3, HA1C2, CA3, FK5 #### [address] [address] #### IGMO, IGAO, EBVPO, IGGO, CMVLO #### The performing lab is in the report. IgM Anti EBV Capsid Ag < 10.0 Normal 0.0-43.9 [facility] Comment on above: Result Comment: INTE RPRETIVE INFORMATION: Robel-Mclaughlin Virus Antibody to Viral Capsid Antigen, IgM 35.9 U/mL or less.......Not Detected 36.0-43.9 U/mL..........Indeterminate - Repeat testing in 10-14 days may be helpful. 44.0 U/mL or greater....Detected Performed By: #### H EMDF, BUN3, GLUC3, URIC3, BILF3, FEIBC, PHOS3, MG3, HA1C2, CA3, FK5 #### [facility] [address] [address] #### IGMO, IGAO, EBVPO, IGGO, CMVLO #### The performing lab is in the report. Immunoglobulin Aon 1 Immunoglobulin A 76 mg/dL Normal 68-408 [facility] Comment on above: Result Comment: REFE RENCE INTERVAL: Immunoglobulin A Access complete set of age- and/or gender-specific reference intervals for this test in the [facility] Test Directory ([employer]). Performed By: [facility] [address] [id number] Airplane Technician: Melony Otero MD Performed By: #### H EMDF, BUN3, GLUC3, URIC3, BILF3, FEIBC, PHOS3, MG3, HA1C2, CA3, FK5 #### [facility] [address] [address] #### IGMO, IGAO, EBVPO, IGGO, CMVLO #### The performing lab is in the report. Immunoglobulin Enrique 1 Immunoglobulin G 599 mg/dL Low 768-1632 [facility] Comment on above: Result Comment: REFE RENCE INTERVAL: Immunoglobulin G Access complete set of age- and/or gender-specific reference intervals for this test in the [facility] Test Directory ([employer]). Performed By: [facility] [address] [place] [address] Airplane Technician: Melony Otero MD Performed By: #### H EMDF, BUN3, GLUC3, URIC3, BILF3, FEIBC, PHOS3, MG3, HA1C2, CA3, FK5 #### [address] [address] #### IGMO, IGAO, EBVPO, IGGO, CMVLO #### The performing lab is in the report. Immunoglobulin Mon Immunoglobulin M 24 mg/dL Low 35-263 [facility] Comment on above: Result Comment: REFE RENCE INTERVAL: Immunoglobulin M Access complete set of age- and/or gender-specific reference intervals for this test in the [facility] Test Directory ([employer]). Performed By: [facility] [address] [place] [address] Airplane Technician: Melony Otero MD Performed By: #### H EMDF, BUN3, GLUC3, URIC3, BILF3, FEIBC, PHOS3, MG3, HA1C2, CA3, FK5 #### [address] [address] #### IGMO, IGAO, EBVPO, IGGO, CMVLO #### The performing lab is in the report. Bilirubin, Fractionatedon Bilirubin [Mass/Vol] 0.5 mg/dL Normal 0.2-1.3 [facility] Comment on above: Performed By: #### H EMDF, BUN3, GLUC3, URIC3, BILF3, FEIBC, PHOS3, MG3, HA1C2, CA3, FK5 #### [address] [address] #### IGMO, IGAO, EBVPO, IGGO, CMVLO #### The performing lab is in the report. Bilirubin.indirect [Mass/Vol] 0.0 mg/dL Normal 0.0-0.3 [facility] Comment on above: Performed By: #### H EMDF, BUN3, GLUC3, URIC3, BILF3, FEIBC, PHOS3, MG3, HA1C2, CA3, FK5 #### [address] [address] #### IGMO, IGAO, EBVPO, IGGO, CMVLO #### The performing lab is in the report. Calciumon 06-23-2021 Calcium [Mass/Vol] 10.0 mg/dL Normal 8.4-10.4 [facility] Comment on above: Performed By: #### H EMDF, BUN3, GLUC3, URIC3, BILF3, FEIBC, PHOS3, MG3, HA1C2, CA3, FK5 #### [place] [address] #### IGMO, IGAO, EBVPO, IGGO, CMVLO #### The performing lab is in the report. FK506 (Prograf)on 06-23-2021 FK506 (Prograf) 6.7 ug/L Normal 5.0-20.0 [facility] Comment on above: Result Comment: Test performed using Chemiluminescent Microparticle Immunoassay (CMIA; [employer]) Performed By: #### H EMDF, BUN3, GLUC3, URIC3, BILF3, FEIBC, PHOS3, MG3, HA1C2, CA3, FK5 #### [address] [address] #### IGMO, IGAO, EBVPO, IGGO, CMVLO #### The performing lab is in the report. Glucoseon 06-23-2021 Glucose [Mass/Vol] 94 mg/dL Normal 70-100 [facility] Comment on above: Performed By: #### H EMDF, BUN3, GLUC3, URIC3, BILF3, FEIBC, PHOS3, MG3, HA1C2, CA3, FK5 #### [address] [address] #### IGMO, IGAO, EBVPO, IGGO, CMVLO #### The performing lab is in the report. Hemoglobin A1Con 06-23-2021 Glucose [Mass/Vol] 117 mg/dL Normal [facility] Comment on above: Performed By: #### H EMDF, BUN3, GLUC3, URIC3, BILF3, FEIBC, PHOS3, MG3, HA1C2, CA3, FK5 #### [address] #### IGMO, IGAO, EBVPO, IGGO, CMVLO #### The performing lab is in the report. HbA1c (Bld) [Mass fraction] 5.7 % Abnormal [facility] Comment on above: Result Comment: Norm al less than 5.7% Prediabetes 5.7% to 6.4% Diabetes 6.5% or higher --HgbA1C levels may not be accurate in patients who have renal disease, received recent blood transfusions, are anemic, or who have dyshemoglobinemia. Performed By: #### H EMDF, BUN3, GLUC3, URIC3, BILF3, FEIBC, PHOS3, MG3, HA1C2, CA3, FK5 #### [address] [address] #### IGMO, IGAO, EBVPO, IGGO, CMVLO #### The performing lab is in the report. Hemogram w/ Autodiffon 06-23 Abs Baso Cnt 0.0 10*3/uL Normal 0.0-0.2 [facility] Comment on above: Performed By: #### H EMDF, BUN3, GLUC3, URIC3, BILF3, FEIBC, PHOS3, MG3, HA1C2, CA3, FK5 #### [address] [address] #### IGMO, IGAO, EBVPO, IGGO, CMVLO #### The performing lab is in the report. Abs Neutrophile Cnt 3.8 10*3/uL Normal 1.8-7.0 [facility] Comment on above: Performed By: #### H EMDF, BUN3, GLUC3, URIC3, BILF3, FEIBC, PHOS3, MG3, HA1C2, CA3, FK5 #### [address] [address] #### IGMO, IGAO, EBVPO, IGGO, CMVLO #### The performing lab is in the report. Basophils/100 WBC (Bld) 0.5 % Normal 0.0-2.0 [facility] Comment on above: Performed By: #### H EMDF, BUN3, GLUC3, URIC3, BILF3, FEIBC, PHOS3, MG3, HA1C2, CA3, FK5 #### [address] [address] #### IGMO, IGAO, EBVPO, IGGO, CMVLO #### The performing lab is in the report. Eosinophils (Bld) [#/Vol] 0.0 10*3/uL Normal 0.0-0.5 [facility] Comment on above: Performed By: #### H EMDF, BUN3, GLUC3, URIC3, BILF3, FEIBC, PHOS3, MG3, HA1C2, CA3, FK5 #### [address] [address] #### IGMO, IGAO, EBVPO, IGGO, CMVLO #### The performing lab is in the report. Eosinophils/100 WBC (Bld) 0.8 % Low 1.0-6.0 [facility] Comment on above: Performed By: #### H EMDF, BUN3, GLUC3, URIC3, BILF3, FEIBC, PHOS3, MG3, HA1C2, CA3, FK5 #### [address] [address] #### IGMO, IGAO, EBVPO, IGGO, CMVLO #### The performing lab is in the report. Erythrocyte distribution width (RBC) [Ratio] 14.3 % Normal 11.5-14.5 [facility] Comment on above: Performed By: #### H EMDF, BUN3, GLUC3, URIC3, BILF3, FEIBC, PHOS3, MG3, HA1C2, CA3, FK5 #### [address] [address] #### IGMO, IGAO, EBVPO, IGGO, CMVLO #### The performing lab is in the report. Granulocytes/100 WBC (Bld) 69.5 % Normal 40.0-80.0 [facility] Comment on above: Performed By: #### H EMDF, BUN3, GLUC3, URIC3, BILF3, FEIBC, PHOS3, MG3, HA1C2, CA3, FK5 #### [address] [address] #### IGMO, IGAO, EBVPO, IGGO, CMVLO #### The performing lab is in the report. Hematocrit (Bld) [Volume fraction] 43.6 % Normal 40.0-52.0 [facility] Comment on above: Performed By: #### H EMDF, BUN3, GLUC3, URIC3, BILF3, FEIBC, PHOS3, MG3, HA1C2, CA3, FK5 #### [address] [address] #### IGMO, IGAO, EBVPO, IGGO, CMVLO #### The performing lab is in the report. Hemoglobin (Bld) [Mass/Vol] 14.2 g/dL Normal 13.0-18.0 [facility] Comment on above: Performed By: #### H EMDF, BUN3, GLUC3, URIC3, BILF3, FEIBC, PHOS3, MG3, HA1C2, CA3, FK5 #### [address] [address] #### IGMO, IGAO, EBVPO, IGGO, CMVLO #### The performing lab is in the report. Lymphocytes (Bld) [#/Vol] 1.2 10*3/uL Normal 1.0-4.3 [facility] Comment on above: Performed By: #### H EMDF, BUN3, GLUC3, URIC3, BILF3, FEIBC, PHOS3, MG3, HA1C2, CA3, FK5 #### [address] [address] #### IGMO, IGAO, EBVPO, IGGO, CMVLO #### The performing lab is in the report. Lymphocytes/100 WBC (Bld) 21.3 % Normal 20.0-40.0 [facility] Comment on above: Performed By: #### H EMDF, BUN3, GLUC3, URIC3, BILF3, FEIBC, PHOS3, MG3, HA1C2, CA3, FK5 #### [address] [place] #### IGMO, IGAO, EBVPO, IGGO, CMVLO #### The performing lab is in the report. MCH (RBC) [Entitic mass] 31.5 pg Normal 26.0-34.0 [facility] Comment on above: Performed By: #### H EMDF, BUN3, GLUC3, URIC3, BILF3, FEIBC, PHOS3, MG3, HA1C2, CA3, FK5 #### [address] #### IGMO, IGAO, EBVPO, IGGO, CMVLO #### The performing lab is in the report. MCHC 32.7 % Normal 32.0-36.0 [facility] Comment on above: Performed By: #### H EMDF, BUN3, GLUC3, URIC3, BILF3, FEIBC, PHOS3, MG3, HA1C2, CA3, FK5 #### [address] #### IGMO, IGAO, EBVPO, IGGO, CMVLO #### The performing lab is in the report. MCV (RBC) [Entitic vol] 96.3 fL Normal 80.0-98.0 S [facility] Comment on above: Performed By: #### H EMDF, BUN3, GLUC3, URIC3, BILF3, FEIBC, PHOS3, MG3, HA1C2, CA3, FK5 #### [address] #### IGMO, IGAO, EBVPO, IGGO, CMVLO #### The performing lab is in the report. Monocytes (Bld) [#/Vol] 0.4 10*3/uL Normal 0.0-0.8 [facility] Comment on above: Performed By: #### H EMDF, BUN3, GLUC3, URIC3, BILF3, FEIBC, PHOS3, MG3, HA1C2, CA3, FK5 #### [address] #### IGMO, IGAO, EBVPO, IGGO, CMVLO #### The performing lab is in the report. Monocytes/100 WBC (Bld) 7.9 % Normal 2.0-10.0 S [facility] Comment on above: Performed By: #### H EMDF, BUN3, GLUC3, URIC3, BILF3, FEIBC, PHOS3, MG3, HA1C2, CA3, FK5 #### [address] #### IGMO, IGAO, EBVPO, IGGO, CMVLO #### The performing lab is in the report. Platelet mean volume (Bld) [Entitic vol] 9.2 fL Normal 7.4-10.4 [facility] Comment on above: Performed By: #### H EMDF, BUN3, GLUC3, URIC3, BILF3, FEIBC, PHOS3, MG3, HA1C2, CA3, FK5 #### [address] #### IGMO, IGAO, EBVPO, IGGO, CMVLO #### The performing lab is in the report. Platelets (Bld) [#/Vol] 193 10*3/uL Normal 140-440 [facility] Comment on above: Performed By: #### H EMDF, BUN3, GLUC3, URIC3, BILF3, FEIBC, PHOS3, MG3, HA1C2, CA3, FK5 #### [address] #### IGMO, IGAO, EBVPO, IGGO, CMVLO #### The performing lab is in the report. RBC (Bld) [#/Vol] 4.53 10*6/uL Normal 4.40-5.90 [facility] Comment on above: Performed By: #### H EMDF, BUN3, GLUC3, URIC3, BILF3, FEIBC, PHOS3, MG3, HA1C2, CA3, FK5 #### [address] #### IGMO, IGAO, EBVPO, IGGO, CMVLO #### The performing lab is in the report. WBC (Bld) [#/Vol] 5.4 10*3/uL Normal 3.6-10.7 [facility] Comment on above: Performed By: #### H EMDF, BUN3, GLUC3, URIC3, BILF3, FEIBC, PHOS3, MG3, HA1C2, CA3, FK5 #### [facility] [address] [place] [address] #### IGMO, IGAO, EBVPO, IGGO, CMVLO #### The performing lab is in the report. Iron AND TIBCon 06-23-2021 Saturation 25 % Normal 15-50 [facility] Comment on above: Performed By: #### H EMDF, BUN3, GLUC3, URIC3, BILF3, FEIBC, PHOS3, MG3, HA1C2, CA3, FK5 #### [address] #### IGMO, IGAO, EBVPO, IGGO, CMVLO #### The performing lab is in the report. Total Iron Binding Cap. 351 ug/dL Normal 261-497 S [facility] Comment on above: Performed By: #### H EMDF, BUN3, GLUC3, URIC3, BILF3, FEIBC, PHOS3, MG3, HA1C2, CA3, FK5 #### [address] #### IGMO, IGAO, EBVPO, IGGO, CMVLO #### The performing lab is in the report. Iron, Total 87 ug/dL Normal 49-181 [facility] Comment on above: Performed By: #### H EMDF, BUN3, GLUC3, URIC3, BILF3, FEIBC, PHOS3, MG3, HA1C2, CA3, FK5 #### [address] #### IGMO, IGAO, EBVPO, IGGO, CMVLO #### The performing lab is in the report. Magnesiumon 06-23-2021 Magnesium [Mass/Vol] 1.7 mg/dL Normal 1.6-2.3 [facility] Comment on above: Performed By: #### H EMDF, BUN3, GLUC3, URIC3, BILF3, FEIBC, PHOS3, MG3, HA1C2, CA3, FK5 #### [facility] [address] [place] [address] #### IGMO, IGAO, EBVPO, IGGO, CMVLO #### The performing lab is in the report. Phosphoruson 06-23-2021 Phosphate [Mass/Vol] 3.6 mg/dL Normal 2.5-4.5 [facility] Comment on above: Performed By: #### H EMDF, BUN3, GLUC3, URIC3, BILF3, FEIBC, PHOS3, MG3, HA1C2, CA3, FK5 #### [address] [address] #### IGMO, IGAO, EBVPO, IGGO, CMVLO #### The performing lab is in the report. Urea Nitrogenon 06-23-2021 Urea nitrogen [Mass/Vol] 19 mg/dL Normal 7-20 [facility] Comment on above: Performed By: #### H EMDF, BUN3, GLUC3, URIC3, BILF3, FEIBC, PHOS3, MG3, HA1C2, CA3, FK5 #### [facility] [address] [place] [address] #### IGMO, IGAO, EBVPO, IGGO, CMVLO #### The performing lab is in the report. Uric Acidon 06-23-2021 Urate [Mass/Vol] 7.5 mg/dL Normal 2.5-8.5 [facility] Comment on above: Performed By: #### H EMDF, BUN3, GLUC3, URIC3, BILF3, FEIBC, PHOS3, MG3, HA1C2, CA3, FK5 #### [address] [address] #### IGMO, IGAO, EBVPO, IGGO, CMVLO #### The performing lab is in the report. SpirometryOrdered By: Matthew Davila on 05-27-2021 Name: NICK HERNÁNDEZ PatientID: [id number] Gender: Male Birthdate: 1960 Study Date: 05/27/2021 1:15:48 P Age: 61 Race: White or Height: 72.0 in, 182.9 cm Weight: 196.0 lbs, 89.1 kg Smoke Status: Never Pack Years: Tbco Prod: Cigarettes Ordering Physician: [id number] Interpreting Physician: [id number] Imaging Science Professor: CAMELIA Testing Location: [facility] Diagnosis: S/P LUNG TRANSPLANT Spirometry Units Pred PreDrug Pre%Pred Post Post%Pred %Change FVC L,btps 5.14 4.50 88. FEV1 L,btps 3.90 2.57 66. FEV1/FVC (%) % 76. 57. 75. DPU13-21% L/s 3.21 0.93 29. FEFmax L/s 9.75 5.31 54. MVV in,btps 131.99 Lung Volumes (Body Box) Units Pred PreDrug Pre%Pred TLC L,btps 7.61 VC L,btps 5.14 IC L,btps 3.89 FRC L,btps 3.72 ERV L,btps 1.26 RV L,btps 2.46 RV/TLC (%) % 32. VTG L,btps RAW H2O/L/s 1.19 SGaw cmH2O/L 0.23 Diffusion (DLCO) Units Pred PreDrug Pre%Pred DLCO ml/min/mmHg,stpd 33.09 DLCOHb ml/min/mmHg,stpd 33.09 VAsb L,btps 7.43 D/VAsb ml/min/mmHg/L,stpd 4.45 D/VAsbHb ml/min/mmHg/L,stpd 4.45 VInsp L Hgb g/dl COHb % Lung Mechanics Units Pred PreDrug Pre%Pred PImax /MIP cmH2O -81.23 PEmax /MEP cmH2O 126.31 [facility] [employer]S[employer] NOTES Calibration check passed with acceptable system performance. Spirometry best effort, met acceptability and repeatability guidelines. 26414- SLIM Tests to perform: 6162049 - SPIROMETRY WITHOUT BRONCHODILATOR PHYSICIAN INTERPRETATION Forced expiratory spirogram reveals moderate large airways obstructive lung disease. Spirograms are of good quality and do not plateau. The respiratory flow volume loop reveals decreased flows at all volumes consistent with large and small airways obstruction. IMPRESSION: Moderate obstructive ventilatory impairment. [facility] Work Phone: Rodolfo, [facility] Incoming Cardiology Results From Amy/Joana - 05/27/2021 4:00 PM EDT Name: NICK HERNÁNDEZ PatientID: [id number] Gender: Male Birthdate: 1960 Study Date: 05/27/2021 1:15:48 P Age: 61 Race: White or Height: 72.0 in, 182.9 cm Weight: 196.0 lbs, 89.1 kg Smoke Status: Never Pack Years: Tbco Prod: Cigarettes Ordering Physician: [id number] Interpreting Physician: [id number] Imaging Science Professor: CAMELIA Testing Location: [facility] Diagnosis: S/P LUNG TRANSPLANT Spirometry Units Pred PreDrug Pre%Pred Post Post%Pred %Change FVC L,btps 5.14 4.50 88. FEV1 L,btps 3.90 2.57 66. FEV1/FVC (%) % 76. 57. 75. VSL96-04% L/s 3.21 0.93 29. FEFmax L/s 9.75 5.31 54. MVV in,btps 131.99 Lung Volumes (Body Box) Units Pred PreDrug Pre%Pred TLC L,btps 7.61 VC L,btps 5.14 IC L,btps 3.89 FRC L,btps 3.72 ERV L,btps 1.26 RV L,btps 2.46 RV/TLC (%) % 32. VTG L,btps RAW H2O/L/s 1.19 SGaw cmH2O/L 0.23 Diffusion (DLCO) Units Pred PreDrug Pre%Pred DLCO ml/min/mmHg,stpd 33.09 DLCOHb ml/min/mmHg,stpd 33.09 VAsb L,btps 7.43 D/VAsb ml/min/mmHg/L,stpd 4.45 D/VAsbHb ml/min/mmHg/L,stpd 4.45 VInsp L Hgb g/dl COHb % Lung Mechanics Units Pred PreDrug Pre%Pred PImax /MIP cmH2O -81.23 PEmax /MEP cmH2O 126.31 [facility] [employer] CONSULTANT NOTES Calibration check passed with acceptable system performance. Spirometry best effort, met acceptability and repeatability guidelines. 20497- SLMI Tests to perform: 8933331 - SPIROMETRY WITHOUT BRONCHODILATOR PHYSICIAN INTERPRETATION Forced expiratory spirogram reveals moderate large airways obstructive lung disease. Spirograms are of good quality and do not plateau. The respiratory flow volume loop reveals decreased flows at all volumes consistent with large and small airways obstruction. IMPRESSION: Moderate obstructive ventilatory impairment. [employer] Work Phone: [employer] Work Phone: CMV by Qualitative PCRon CMV Qual by PCR Not detected Normal [facility] Comment on above: Result Comment: NOT DETECTED - A negative result does not rule out the presence of PCR inhibitors in the patient specimen or assay specific nucleic acid in concentrations below the level of detection by the assay. INTERPRETIVE INFORMATION: Cytomegalovirus Detection by PCR This test was developed and its performance characteristics determined by [facility]. It has not been cleared or approved by the [place] Food and Drug Administration. This test was performed in a CLIA certified laboratory and is intended for clinical purposes. Performed by [facility], [address] [place] [id number] [email or web address], Melony Otero MD - Lab. Director Performed By: #### H EMDF, BUN3, GLUC3, URIC3, BILF3, FEIBC, PHOS3, MG3, HA1C2, CA3, FK5 #### [facility] [employer] [address] [address] #### IGMO, IGAO, EBVPO, IGGO, CMVLO #### The performing lab is in the report. CMV Qual Source Blood Normal [facility] Comment on above: Performed By: #### H EMDF, BUN3, GLUC3, URIC3, BILF3, FEIBC, PHOS3, MG3, HA1C2, CA3, FK5 #### [address] [address] #### IGMO, IGAO, EBVPO, IGGO, CMVLO #### The performing lab is in the report. EBV Ab Panel,IgG AND IgMon 0 05-21-2021 IgG Anti EBNA Ag 97.1 U/mL High 0.0-21.9 [facility] Comment on above: Result Comment: INTE RPRETIVE INFORMATION: Robel-Mclaughlin Virus Antibody to Nuclear Antigen, IgG 17.9 U/mL or less.......Not Detected 18.0-21.9 U/mL..........Indeterminate - Repeat testing in 10-14 days may be helpful. 22.0 U/mL or greater....Detected Performed By: #### H EMDF, BUN3, GLUC3, URIC3, BILF3, FEIBC, PHOS3, MG3, HA1C2, CA3, FK5 #### [address] [address] #### IGMO, IGAO, EBVPO, IGGO, CMVLO #### The performing lab is in the report. IgG Anti EBV Capsid Ag > 750.0 High 0.0-21.9 [facility] Comment on above: Result Comment: INTE RPRETIVE INFORMATION: Robel-Mclaughlin Virus Antibody to Viral Capsid Antigen, IgG 17.9 U/mL or less.......Not Detected 18.0-21.9 U/mL..........Indeterminate - Repeat testing in 10-14 days may be helpful. 22.0 U/mL or greater....Detected Performed By: #### H EMDF, BUN3, GLUC3, URIC3, BILF3, FEIBC, PHOS3, MG3, HA1C2, CA3, FK5 #### [address] [address] #### IGMO, IGAO, EBVPO, IGGO, CMVLO #### The performing lab is in the report. IgG Anti EBV Early Ag < 5.0 Normal 0.0-10.9 [facility] Comment on above: Result Comment: INTE RPRETIVE INFORMATION: Robel-Mclaughlin Virus Antibody to Early D Antigen (EA-D), IgG 8.9 U/mL or less........Not Detected 9.0-10.9 U/mL...........Indeterminate - Repeat testing in 10-14 days may be helpful. 11.0 U/mL or greater....Detected Performed By: [facility] [address] [place] [address] Airplane Technician: Melony Otero MD Performed By: #### H EMDF, BUN3, GLUC3, URIC3, BILF3, FEIBC, PHOS3, MG3, HA1C2, CA3, FK5 #### [address] [address] #### IGMO, IGAO, EBVPO, IGGO, CMVLO #### The performing lab is in the report. IgM Anti EBV Capsid Ag < 10.0 Normal 0.0-43.9 [facility] Comment on above: Result Comment: INTE RPRETIVE INFORMATION: Robel-Mclaughlin Virus Antibody to Viral Capsid Antigen, IgM 35.9 U/mL or less.......Not Detected 36.0-43.9 U/mL..........Indeterminate - Repeat testing in 10-14 days may be helpful. 44.0 U/mL or greater....Detected Performed By: #### H EMDF, BUN3, GLUC3, URIC3, BILF3, FEIBC, PHOS3, MG3, HA1C2, CA3, FK5 #### [address] [address] #### IGMO, IGAO, EBVPO, IGGO, CMVLO #### The performing lab is in the report. Immunoglobulin Aon 1 Immunoglobulin A 68 mg/dL Normal 68-408 [facility] Comment on above: Result Comment: REFE RENCE INTERVAL: Immunoglobulin A Access complete set of age- and/or gender-specific reference intervals for this test in the [facility] Test Directory ([employer]). Performed By: [facility] [address] [place] [address] Airplane Technician: Melony Otero MD Performed By: #### H EMDF, BUN3, GLUC3, URIC3, BILF3, FEIBC, PHOS3, MG3, HA1C2, CA3, FK5 #### [address] [address] #### IGMO, IGAO, EBVPO, IGGO, CMVLO #### The performing lab is in the report. Immunoglobulin Enrique 1 Immunoglobulin G 586 mg/dL Low 768-1632 [facility] Comment on above: Result Comment: REFE RENCE INTERVAL: Immunoglobulin G Access complete set of age- and/or gender-specific reference intervals for this test in the [facility] Test Directory ([employer]). Performed By: [facility] [address] [place], [place] [id number] Airplane Technician: Melony Otero MD Performed By: #### H EMDF, BUN3, GLUC3, URIC3, BILF3, FEIBC, PHOS3, MG3, HA1C2, CA3, FK5 #### [address] [address] #### IGMO, IGAO, EBVPO, IGGO, CMVLO #### The performing lab is in the report. Immunoglobulin Mon 1 Immunoglobulin M 20 mg/dL Low 35-263 [facility] Comment on above: Result Comment: REFE RENCE INTERVAL: Immunoglobulin M Access complete set of age- and/or gender-specific reference intervals for this test in the [facility] Test Directory ([employer]). Performed By: [facility] [address] [place] [address] Airplane Technician: Melony Otero MD Performed By: #### H EMDF, BUN3, GLUC3, URIC3, BILF3, FEIBC, PHOS3, MG3, HA1C2, CA3, FK5 #### [facility] [employer] [address] [address] #### IGMO, IGAO, EBVPO, IGGO, CMVLO #### The performing lab is in the report. FK506 (Prograf)on 05-20-2021 FK506 (Prograf) 7.0 ug/L Normal 5.0-20.0 [facility] Comment on above: Result Comment: Test performed using Chemiluminescent Microparticle Immunoassay (CMIA; [employer]) Performed By: #### H EMDF, BUN3, GLUC3, URIC3, BILF3, FEIBC, PHOS3, MG3, HA1C2, CA3, FK5 #### [address] [address] #### IGMO, IGAO, EBVPO, IGGO, CMVLO #### The performing lab is in the report. BILIRUBIN FRACTIONATED, ADUL TOrdered By: Nick Lopez on 05-19-2021 Bilirubin [Mass/Vol] 0.8 mg/dL 0.2 - 1 .3 mg/dL [facility] Work Phone: [phone] Bilirubin.indirect [Mass/Vol] 0.0 mg/dL 0.0 - 0.3 mg/dL [facility] Work Phone: [phone] BUNOrdered By: Nick Lopez on 05-19-2021 Urea nitrogen (BldV) [Mass/Vol] 15 mg/dL 7 - 20 mg/dL [facility] Work Phone: [phone] Bilirubin, Fractionatedon Bilirubin [Mass/Vol] 0.8 mg/dL Normal 0.2-1.3 [facility] Comment on above: Performed By: #### H EMDF, BUN3, GLUC3, URIC3, BILF3, FEIBC, PHOS3, MG3, HA1C2, CA3, FK5 #### [facility] [employer] [address] [address] #### IGMO, IGAO, EBVPO, IGGO, CMVLO #### The performing lab is in the report. Bilirubin.indirect [Mass/Vol] 0.0 mg/dL Normal 0.0-0.3 [facility] Comment on above: Performed By: #### H EMDF, BUN3, GLUC3, URIC3, BILF3, FEIBC, PHOS3, MG3, HA1C2, CA3, FK5 #### [address] [address] #### IGMO, IGAO, EBVPO, IGGO, CMVLO #### The performing lab is in the report. CBC Auto DifferentialOrdered By: Nick Lopez on 05-19-2021 Absolute Baso # 0.0 10*3/uL 0.0 - 0.2 10*3/uL [facility] Work Phone: [phone] Absolute Neut # 3.3 10*3/uL 1.8 - 7.0 10*3/uL [facility] Work Phone: 1 Basophils/100 WBC (Bld) 0.4 % 0.0 - 2.0 % [facility] Work Phone: Eosinophils (Bld) [#/Vol] 0.0 10*3/uL 0.0 - 0.5 10*3/uL [facility] Work Phone: 1 Eosinophils/100 WBC (Bld) 0.9 % Low 1.0 - 6.0 % [facility] Work Phone: 1 Granulocytes/100 WBC (Bld) 68.3 % 40.0 - 80.0 % [facility] Work Phone: Hematocrit (Bld) [Volume fraction] 39.6 % Low 40.0 - 52.0 % [facility] Work Phone: Hemoglobin.gastrointesti nal spec 1 Ql (Stl) 13.3 g/dL 13.0 - 18.0 g/dL [facility] Work Phone: Interpretation and review of laboratory results Abnormal [employer] Work Phone: Lymphocytes (Bld) [#/Vol] 0.9 10*3/uL Low 1.0 - 4.3 10*3/uL [employer] [facility] Work Phone: Lymphocytes/100 WBC (Bld) 17.7 % Low 20.0 - 40.0 % [facility] Work Phone: MCH (RBC) [Entitic mass] 32.5 pg 26. 0 - 34.0 pg [facility] Work Phone: MCHC (RBC) [Mass/Vol] 33.5 % 32.0 - 36.0 % [facility] Work Phone: MCV (RBC) [Entitic vol] 96.9 fL 80.0 - 98.0 fL [employer] [facility] Work Phone: Monocytes (Bld) [#/Vol] 0.6 10*3/uL 0.0 - 0.8 10*3/uL [facility] Work Phone: 1 Monocytes/100 WBC (Bld) 12.7 % High 2.0 - 10.0 % [facility] Work Phone: 1 Platelet distribution width (Bld) [Ratio] 14.5 % 11.5 - 14.5 % [facility] Work Phone: 1 Platelet mean volume (Bld) [Entitic vol] 9.3 fL 7.4 - 10.4 fL [employer] [facility] Work Phone: 1 Platelets (Bld) [#/Vol] 182 10*3/uL 140 - 440 10*3/uL [facility] Work Phone: 1 RBC (Bld) [#/Vol] 4.08 10*6/uL Low 4.40 - 5.9 0 10*6/uL [facility] Work Phone: 1 WBC (Bld) [#/Vol] 4.8 10*3/uL 3.6 - 10.7 10*3/uL [facility] Work Phone: [phone] Test Performed by [employer], [address] [place] [id number] [facility] Work Phone: 1 [facility] Work Phone: 1 Calciumon 05-19-2021 Calcium [Mass/Vol] 9.5 mg/dL Normal 8.4-10.4 [facility] Comment on above: Performed By: #### H EMDF, BUN3, GLUC3, URIC3, BILF3, FEIBC, PHOS3, MG3, HA1C2, CA3, FK5 #### [employer] [address] [place] [address] #### IGMO, IGAO, EBVPO, IGGO, CMVLO #### The performing lab is in the report. CalciumOrdered By: Nick calvert on 05-19-2021 Calcium [Mass/Vol] 9.5 mg/dL 8.4 - 10. 4 mg/dL [facility] Work Phone: [phone] Glucoseon 05-19-2021 Glucose [Mass/Vol] 105 mg/dL High 70-100 [facility] Comment on above: Performed By: #### H EMDF, BUN3, GLUC3, URIC3, BILF3, FEIBC, PHOS3, MG3, HA1C2, CA3, FK5 #### [address] [address] #### IGMO, IGAO, EBVPO, IGGO, CMVLO #### The performing lab is in the report. GlucoseOrdered By: Nick calvert on 05-19-2021 Glucose [Mass/Vol] 105 mg/dL High 70 - 100 mg/dL [facility] Work Phone: Interpretation and review of laboratory results Abnormal [facility] Work Phone: Hemoglobin A1Con 05-19-2021 Glucose [Mass/Vol] 120 mg/dL Normal [facility] Comment on above: Performed By: #### H EMDF, BUN3, GLUC3, URIC3, BILF3, FEIBC, PHOS3, MG3, HA1C2, CA3, FK5 #### [address] [address] #### IGMO, IGAO, EBVPO, IGGO, CMVLO #### The performing lab is in the report. HbA1c (Bld) [Mass fraction] 5.8 % Abnormal [facility] Comment on above: Result Comment: Norm al less than 5.7% Prediabetes 5.7% to 6.4% Diabetes 6.5% or higher --HgbA1C levels may not be accurate in patients who have renal disease, received recent blood transfusions, are anemic, or who have dyshemoglobinemia. Performed By: #### H EMDF, BUN3, GLUC3, URIC3, BILF3, FEIBC, PHOS3, MG3, HA1C2, CA3, FK5 #### [address] [address] #### IGMO, IGAO, EBVPO, IGGO, CMVLO #### The performing lab is in the report. Hemoglobin [id number] By: Devon Lopez on 05-19-2021 HbA1c (Bld) [Mass fraction] 5.8 % Abnormal [facility] Work Phone: Comment on above: Normal less than 5.7 % Prediabetes 5.7% to 6.4% Diabetes 6.5% or higher --HgbA1C levels may not be accurate in patients who have renal disease, received recent blood transfusions, are anemic, or who have dyshemoglobinemia. Interpretation and review of laboratory results Abnormal [facility] Work Phone: Magnesium [Mass/Vol] 120 mg/dL [facility] Work Phone: [phone] Test Performed by [facility] [employer], [address] [place] [id number] [place] [address] Work Phone: [phone] [facility] Work Phone: Hemogram w/ Autodiffon 05-19 Abs Baso Cnt 0.0 10*3/uL Normal 0.0-0.2 [facility] Comment on above: Performed By: #### H EMDF, BUN3, GLUC3, URIC3, BILF3, FEIBC, PHOS3, MG3, HA1C2, CA3, FK5 #### [facility] [employer] [address] [place] [phone] #### IGMO, IGAO, EBVPO, IGGO, CMVLO #### The performing lab is in the report. Abs Neutrophile Cnt 3.3 10*3/uL Normal 1.8-7.0 [facility] Comment on above: Performed By: #### H EMDF, BUN3, GLUC3, URIC3, BILF3, FEIBC, PHOS3, MG3, HA1C2, CA3, FK5 #### [facility] [employer] [address] [address] #### IGMO, IGAO, EBVPO, IGGO, CMVLO #### The performing lab is in the report. Basophils/100 WBC (Bld) 0.4 % Normal 0.0-2.0 S [facility] Comment on above: Performed By: #### H EMDF, BUN3, GLUC3, URIC3, BILF3, FEIBC, PHOS3, MG3, HA1C2, CA3, FK5 #### [facility] [address] #### IGMO, IGAO, EBVPO, IGGO, CMVLO #### The performing lab is in the report. Eosinophils (Bld) [#/Vol] 0.0 10*3/uL Normal 0.0-0.5 [facility] Comment on above: Performed By: #### H EMDF, BUN3, GLUC3, URIC3, BILF3, FEIBC, PHOS3, MG3, HA1C2, CA3, FK5 #### [address] #### IGMO, IGAO, EBVPO, IGGO, CMVLO #### The performing lab is in the report. Eosinophils/100 WBC (Bld) 0.9 % Low 1.0-6.0 [facility] Comment on above: Performed By: #### H EMDF, BUN3, GLUC3, URIC3, BILF3, FEIBC, PHOS3, MG3, HA1C2, CA3, FK5 #### [address] #### IGMO, IGAO, EBVPO, IGGO, CMVLO #### The performing lab is in the report. Erythrocyte distribution width (RBC) [Ratio] 14.5 % Normal 11.5-14.5 [facility] Comment on above: Performed By: #### H EMDF, BUN3, GLUC3, URIC3, BILF3, FEIBC, PHOS3, MG3, HA1C2, CA3, FK5 #### [address] #### IGMO, IGAO, EBVPO, IGGO, CMVLO #### The performing lab is in the report. Granulocytes/100 WBC (Bld) 68.3 % Normal 40.0-80.0 [facility] Comment on above: Performed By: #### H EMDF, BUN3, GLUC3, URIC3, BILF3, FEIBC, PHOS3, MG3, HA1C2, CA3, FK5 #### [address] #### IGMO, IGAO, EBVPO, IGGO, CMVLO #### The performing lab is in the report. Hematocrit (Bld) [Volume fraction] 39.6 % Low 40.0-52.0 [facility] Comment on above: Performed By: #### H EMDF, BUN3, GLUC3, URIC3, BILF3, FEIBC, PHOS3, MG3, HA1C2, CA3, FK5 #### [facility] [employer] [address] #### IGMO, IGAO, EBVPO, IGGO, CMVLO #### The performing lab is in the report. Hemoglobin (Bld) [Mass/Vol] 13.3 g/dL Normal 13.0-18.0 [facility] Comment on above: Performed By: #### H EMDF, BUN3, GLUC3, URIC3, BILF3, FEIBC, PHOS3, MG3, HA1C2, CA3, FK5 #### [address] #### IGMO, IGAO, EBVPO, IGGO, CMVLO #### The performing lab is in the report. Lymphocytes (Bld) [#/Vol] 0.9 10*3/uL Low 1.0-4.3 [facility] Comment on above: Performed By: #### H EMDF, BUN3, GLUC3, URIC3, BILF3, FEIBC, PHOS3, MG3, HA1C2, CA3, FK5 #### [facility] [employer] [address] #### IGMO, IGAO, EBVPO, IGGO, CMVLO #### The performing lab is in the report. Lymphocytes/100 WBC (Bld) 17.7 % Low 20.0-40.0 [facility] Comment on above: Performed By: #### H EMDF, BUN3, GLUC3, URIC3, BILF3, FEIBC, PHOS3, MG3, HA1C2, CA3, FK5 #### [address] #### IGMO, IGAO, EBVPO, IGGO, CMVLO #### The performing lab is in the report. MCH (RBC) [Entitic mass] 32.5 pg Normal 26.0-34.0 [facility] Comment on above: Performed By: #### H EMDF, BUN3, GLUC3, URIC3, BILF3, FEIBC, PHOS3, MG3, HA1C2, CA3, FK5 #### [address] #### IGMO, IGAO, EBVPO, IGGO, CMVLO #### The performing lab is in the report. MCHC 33.5 % Normal 32.0-36.0 [facility] Comment on above: Performed By: #### H EMDF, BUN3, GLUC3, URIC3, BILF3, FEIBC, PHOS3, MG3, HA1C2, CA3, FK5 #### [address] #### IGMO, IGAO, EBVPO, IGGO, CMVLO #### The performing lab is in the report. MCV (RBC) [Entitic vol] 96.9 fL Normal 80.0-98.0 [facility] Comment on above: Performed By: #### H EMDF, BUN3, GLUC3, URIC3, BILF3, FEIBC, PHOS3, MG3, HA1C2, CA3, FK5 #### [address] #### IGMO, IGAO, EBVPO, IGGO, CMVLO #### The performing lab is in the report. Monocytes (Bld) [#/Vol] 0.6 10*3/uL Normal 0.0-0.8 [facility] Comment on above: Performed By: #### H EMDF, BUN3, GLUC3, URIC3, BILF3, FEIBC, PHOS3, MG3, HA1C2, CA3, FK5 #### [address] #### IGMO, IGAO, EBVPO, IGGO, CMVLO #### The performing lab is in the report. Monocytes/100 WBC (Bld) 12.7 % High 2.0-10.0 S [facility] Comment on above: Performed By: #### H EMDF, BUN3, GLUC3, URIC3, BILF3, FEIBC, PHOS3, MG3, HA1C2, CA3, FK5 #### [facility] [address] [place] [address] #### IGMO, IGAO, EBVPO, IGGO, CMVLO #### The performing lab is in the report. Platelet mean volume (Bld) [Entitic vol] 9.3 fL Normal 7.4-10.4 [facility] Comment on above: Performed By: #### H EMDF, BUN3, GLUC3, URIC3, BILF3, FEIBC, PHOS3, MG3, HA1C2, CA3, FK5 #### [address] [address] #### IGMO, IGAO, EBVPO, IGGO, CMVLO #### The performing lab is in the report. Platelets (Bld) [#/Vol] 182 10*3/uL Normal 140-440 [facility] Comment on above: Performed By: #### H EMDF, BUN3, GLUC3, URIC3, BILF3, FEIBC, PHOS3, MG3, HA1C2, CA3, FK5 #### [address] [address] #### IGMO, IGAO, EBVPO, IGGO, CMVLO #### The performing lab is in the report. RBC (Bld) [#/Vol] 4.08 10*6/uL Low 4.40-5.90 [facility] Comment on above: Performed By: #### H EMDF, BUN3, GLUC3, URIC3, BILF3, FEIBC, PHOS3, MG3, HA1C2, CA3, FK5 #### [address] [address] #### IGMO, IGAO, EBVPO, IGGO, CMVLO #### The performing lab is in the report. WBC (Bld) [#/Vol] 4.8 10*3/uL Normal 3.6-10.7 [facility] Comment on above: Performed By: #### H EMDF, BUN3, GLUC3, URIC3, BILF3, FEIBC, PHOS3, MG3, HA1C2, CA3, FK5 #### [address] [address] #### IGMO, IGAO, EBVPO, IGGO, CMVLO #### The performing lab is in the report. Iron AND TIBCon 05-19-2021 Saturation 28 % Normal 15-50 [facility] Comment on above: Performed By: #### H EMDF, BUN3, GLUC3, URIC3, BILF3, FEIBC, PHOS3, MG3, HA1C2, CA3, FK5 #### [address] [address] #### IGMO, IGAO, EBVPO, IGGO, CMVLO #### The performing lab is in the report. Total Iron Binding Cap. 299 ug/dL Normal 261-497 S [facility] Comment on above: Performed By: #### H EMDF, BUN3, GLUC3, URIC3, BILF3, FEIBC, PHOS3, MG3, HA1C2, CA3, FK5 #### [address] [address] #### IGMO, IGAO, EBVPO, IGGO, CMVLO #### The performing lab is in the report. Iron, Total 85 ug/dL Normal 49-181 [facility] Comment on above: Performed By: #### H EMDF, BUN3, GLUC3, URIC3, BILF3, FEIBC, PHOS3, MG3, HA1C2, CA3, FK5 #### [address] [address] #### IGMO, IGAO, EBVPO, IGGO, CMVLO #### The performing lab is in the report. Iron and TIBCOrdered By: Robel Lopez on 05-19-2021 Iron [Mass/Vol] 85 ug/dL 49 - 181 ug/dL [facility] Work Phone: [phone] Sat 28 % 15 - 50 % [facility] Work Phone: [phone] TIBC 299 ug/dL 261 - 497 ug/dL [facility] Work Phone: [phone] Test Performed by [facility] [employer], [address] [place] [address] [facility] Work Phone: [phone] [facility] Work Phone: [phone] Magnesiumon 05-19-2021 Magnesium [Mass/Vol] 1.7 mg/dL Normal 1.6-2.3 [facility] Comment on above: Performed By: #### H EMDF, BUN3, GLUC3, URIC3, BILF3, FEIBC, PHOS3, MG3, HA1C2, CA3, FK5 #### [facility] [employer] [address] [place] [address] #### IGMO, IGAO, EBVPO, IGGO, CMVLO #### The performing lab is in the report. MagnesiumOrdered By: Nick carrera on 05-19-2021 Magnesium [Mass/Vol] 1.7 mg/dL 1.6 - 2 .3 mg/dL [facility] Work Phone: [phone] Panel InformationOrdered By: Nick Lopez on 05-19-2021 Test Performed by [facility] [employer], [address] [place] [address] [facility] Work Phone: [phone] [facility] Work Phone: [phone] Phosphoruson 05-19-2021 Phosphate [Mass/Vol] 2.6 mg/dL Normal 2.5-4.5 [facility] Comment on above: Performed By: #### H EMDF, BUN3, GLUC3, URIC3, BILF3, FEIBC, PHOS3, MG3, HA1C2, CA3, FK5 #### [facility] [employer] [address] [place] [phone] #### IGMO, IGAO, EBVPO, IGGO, CMVLO #### The performing lab is in the report. PhosphorusOrdered By: Nick Lopez on 05-19-2021 Phosphate [Mass/Vol] 2.6 mg/dL 2.5 - 4 .5 mg/dL [facility] Work Phone: [phone] Urea Nitrogenon 05-19-2021 Urea nitrogen [Mass/Vol] 15 mg/dL Normal 7-20 [facility] Comment on above: Performed By: #### H EMDF, BUN3, GLUC3, URIC3, BILF3, FEIBC, PHOS3, MG3, HA1C2, CA3, FK5 #### [address] [address] #### IGMO, IGAO, EBVPO, IGGO, CMVLO #### The performing lab is in the report. Uric Acidon 05-19-2021 Urate [Mass/Vol] 8.4 mg/dL Normal 2.5-8.5 [facility] Comment on above: Performed By: #### H EMDF, BUN3, GLUC3, URIC3, BILF3, FEIBC, PHOS3, MG3, HA1C2, CA3, FK5 #### [facility] [employer] [address] [place] [address] #### IGMO, IGAO, EBVPO, IGGO, CMVLO #### The performing lab is in the report. Uric AcidOrdered By: Nick carrera on 05-19-2021 Urate [Mass/Vol] 8.4 mg/dL 2.5 - 8.5 mg/dL [facility] Work Phone: [phone] BILIRUBIN FRACTIONATED, ADUL TOrdered By: Nick Lopez on 04-22-2021 Bilirubin.indirect [Mass/Vol] 0.0 mg/dL 0.0 - 0.3 mg/dL [facility] Work Phone: [phone] CBC Auto DifferentialOrdered By: Nick Lopez on 04-22-2021 Absolute Baso # 0.0 10*3/uL 0.0 - 0.2 10*3/uL [facility] Work Phone: [phone] Absolute Neut # 6.0 10*3/uL 1.8 - 7.0 10*3/uL [facility] Work Phone: [phone] Basophils/100 WBC (Bld) 0.2 % 0.0 - 2.0 % [facility] Work Phone: [phone] Eosinophils (Bld) [#/Vol] 0.0 10*3/uL 0.0 - 0.5 10*3/uL [facility] Work Phone: [phone] Eosinophils/100 WBC (Bld) 0.4 % Low 1.0 - 6.0 % [facility] Work Phone: [phone] Granulocytes/100 WBC (Bld) 80.8 % High 40.0 - 80.0 % [facility] Work Phone: Hematocrit (Bld) [Volume fraction] 43.1 % 40.0 - 52.0 % [facility] Work Phone: Hemoglobin.gastrointesti nal spec 1 Ql (Stl) 14.3 g/dL 13.0 - 18.0 g/dL [facility] Work Phone: [phone] Interpretation and review of laboratory results Abnormal [facility] Work Phone: Lymphocytes (Bld) [#/Vol] 0.8 10*3/uL Low 1.0 - 4.3 10*3/uL [facility] Work Phone: [phone] Lymphocytes/100 WBC (Bld) 10.8 % Low 20.0 - 40.0 % [facility] Work Phone: [phone] MCH (RBC) [Entitic mass] 31.9 pg 26. 0 - 34.0 pg [facility] Work Phone: MCHC (RBC) [Mass/Vol] 33.1 % 32.0 - 36.0 % [facility] Work Phone: MCV (RBC) [Entitic vol] 96.4 fL 80.0 - 98.0 fL [facility] Work Phone: Monocytes (Bld) [#/Vol] 0.6 10*3/uL 0.0 - 0.8 10*3/uL [facility] Work Phone: Monocytes/100 WBC (Bld) 7.8 % 2.0 - 10.0 % [facility] Work Phone: [phone] Platelet distribution width (Bld) [Ratio] 14.7 % High 11.5 - 14.5 % [facility] Work Phone: [phone] Platelet mean volume (Bld) [Entitic vol] 9.3 fL 7.4 - 10.4 fL [facility] Work Phone: Platelets (Bld) [#/Vol] 191 10*3/uL 140 - 440 10*3/uL [facility] Work Phone: RBC (Bld) [#/Vol] 4.47 10*6/uL 4.40 - 5.9 0 10*6/uL [facility] Work Phone: WBC (Bld) [#/Vol] 7.5 10*3/uL 3.6 - 10.7 10*3/uL [facility] Work Phone: [phone] Test Performed by [employer], [address] [place] [address] [facility] Work Phone: [facility] Work Phone: [phone] Metabolic Pane lOrdered By: Nick Lopez on 04-22-2021 Albumin [Mass/Vol] 4.4 g/dL 3.5 - 5.0 g/dL [facility] Work Phone: [phone] ALP (Bld) [Catalytic activity/Vol] 71 U/L 38 - 126 U/L [facility] Work Phone: [phone] ALT [Catalytic activity/Vol] 30 U/L 0 - 49 U/L [facility] Work Phone: [phone] Comment on above: The ALT test is perf ormed by an updated assay method. Please note that the reference intervals have been changed and are now sex specific. Anion gap [Moles/Vol] 11 mmol/L 3 - 13 mmol/L [facility] Work Phone: [phone] AST [Catalytic activity/Vol] 36 U/L 15 - 46 U/L [facility] Work Phone: [phone] Bilirubin [Mass/Vol] 0.9 mg/dL 0.2 - 1 .3 mg/dL [facility] Work Phone: [phone] Calcium [Mass/Vol] 9.7 mg/dL 8.4 - 10. 4 mg/dL [facility] Work Phone: [phone] Chloride [Moles/Vol] 106 mmol/L 98 - 10 7 mmol/L [facility] Work Phone: [phone] CO2 [Moles/Vol] 23 mmol/L 22 - 30 mmol/L [facility] Work Phone: [phone] Creatinine [Mass/Vol] 0.89 mg/dL 0.52 - 1.25 mg/dL [facility] Work Phone: [phone] EGFR IF NonAfrican Montserratian >90.0 >60 mL/min [facility] Work Phone: [phone] Comment on above: KDIGO guidelines pro vide the following GFR categories: Stage GFR(ml/min/1.73 m2) Terms G1 >=90 Normal or high G2 60-89 Mildly decreased* G3a 45-59 Mildly to moderately decreased G3b 30-44 Moderately to severely decreased G4 15-29 Severely decreased G5 <15 Kidney failure *Relative to young adult level. In the absence of evidence of kidney damage, neither GFR category G1 nor G2 fulfill the criteria for CKD. The CKD-EPI equation is validated in individuals 18 years of age and older. Currently the best equation for estimating glomerular filtration rate (GFR) from serum creatinine in children is the Bedside Muniz equation. It is less accurate in patients with extremes of muscle mass, restriction of dietary protein, ingestion of creatine, extra-renal metabolism of creatinine, or treatment with medications that affect renal tubular creatinine secretion. Free PSA/Total PSA [Mass fraction] 7.1 g/dL 6.3 - 8.2 g/dL [facility] Work Phone: [phone] GFR/1.73 sq M.predicted among blacks MDRD (S/P/Bld) [Vol rate/Area] mL/min/{1.73_m2} >60 mL/min [facility] Work Phone: [phone] Glucose [Mass/Vol] 96 mg/dL 70 - 100 mg/dL [facility] Work Phone: [phone] Potassium [Moles/Vol] 4.9 mmol/L 3.5 - 5.1 mmol/L [facility] Work Phone: [phone] Sodium [Moles/Vol] 140 mmol/L 135 - 145 mmol/L [facility] Work Phone: [phone] Urea nitrogen (BldV) [Mass/Vol] 19 mg/dL 7 - 20 mg/dL [facility] Work Phone: [phone] Gamma GTOrdered By: Nick celis on 04-22-2021 Gamma glutamyl transferase [Catalytic activity/Vol] 41 U/L 12 - 58 U/L [facility] Work Phone: [phone] MagnesiumOrdered By: Nick carrera on 04-22-2021 Magnesium [Mass/Vol] 1.9 mg/dL 1.6 - 2 .3 mg/dL [facility] Work Phone: [phone] Panel InformationOrdered By: Nick Lopez on 04-22-2021 Test Performed by [employer], [facility] [employer] [place] [address] [facility] Work Phone: [phone] [facility] Work Phone: [phone] PhosphorusOrdered By: Nick Lopez on 04-22-2021 Interpretation and review of laboratory results Abnormal [facility] Work Phone: [phone] Phosphate [Mass/Vol] 2.2 mg/dL Low 2.5 - 4 .5 mg/dL [facility] Work Phone: [phone] Tacrolimus LevelOrdered By: Nick Lopez on 04-22-2021 [id number] (Tacrolimus) 6.3 ug/L 5.0 - 20. 0 ug/L [facility] Work Phone: [phone] Comment on above: Test performed using Chemiluminescent Microparticle Immunoassay (CMIA; [facility]) Test Performed by [facility] [employer] [place] [address] [facility] Work Phone: [phone] [facility] Work Phone: [phone] Uric AcidOrdered By: Nick carrera on 04-22-2021 Urate [Mass/Vol] 8.1 mg/dL 2.5 - 8.5 mg/dL [facility] Work Phone: [phone] ALTOrdered By: Nick Lopez on 04-02-2021 ALT [Catalytic activity/Vol] 31 U/L 0 - 49 U/L [facility] Work Phone: [phone] Comment on above: The ALT test is perf ormed by an updated assay method. Please note that the reference intervals have been changed and are now sex specific. ASTOrdered By: Nick Lopez on 04-02-2021 AST [Catalytic activity/Vol] 89 U/L High 15 - 46 U/L [facility] Work Phone: Alkaline PhosphataseOrdered By: Nick John on 04-02-2021 ALP (Bld) [Catalytic activity/Vol] 82 U/L 38 - 126 U/L [facility] Work Phone: BILIRUBIN FRACTIONATED, ADUL TOrdered By: Nick Lopez on 04-02-2021 Bilirubin [Mass/Vol] 0.6 mg/dL 0.2 - 1 .3 mg/dL [facility] Work Phone: Bilirubin.indirect [Mass/Vol] 0.0 mg/dL 0.0 - 0.3 mg/dL [facility] Work Phone: BUNOrdered By: Nick Lopez on 04-02-2021 Urea nitrogen (BldV) [Mass/Vol] 16 mg/dL 7 - 20 mg/dL [facility] Work Phone: CBC Auto DifferentialOrdered By: Nick Lopez on 04-02-2021 Absolute Baso # 0.0 10*3/uL 0.0 - 0.2 10*3/uL [facility] Work Phone: Absolute Neut # 4.1 10*3/uL 1.8 - 7.0 10*3/uL [facility] Work Phone: Basophils/100 WBC (Bld) 0.6 % 0.0 - 2.0 % [facility] Work Phone: Eosinophils (Bld) [#/Vol] 0.1 10*3/uL 0.0 - 0.5 10*3/uL [facility] Work Phone: Eosinophils/100 WBC (Bld) 1.4 % 1.0 - 6.0 % [facility] Work Phone: Granulocytes/100 WBC (Bld) 73.7 % 40.0 - 80.0 % [facility] Work Phone: Hematocrit (Bld) [Volume fraction] 44.1 % 40.0 - 52.0 % [facility] Work Phone: [phone] Hemoglobin.gastrointesti nal spec 1 Ql (Stl) 14.8 g/dL 13.0 - 18.0 g/dL [facility] Work Phone: [phone] Interpretation and review of laboratory results Abnormal [facility] Work Phone: 1 Lymphocytes (Bld) [#/Vol] 0.9 10*3/uL Low 1.0 - 4.3 10*3/uL [facility] Work Phone: 1 Lymphocytes/100 WBC (Bld) 15.8 % Low 20.0 - 40.0 % [facility] Work Phone: 1 MCH (RBC) [Entitic mass] 32.3 pg 26. 0 - 34.0 pg [facility] Work Phone: MCHC (RBC) [Mass/Vol] 33.5 % 32.0 - 36.0 % [facility] Work Phone: MCV (RBC) [Entitic vol] 96.2 fL 80.0 - 98.0 fL [facility] Work Phone: 1 Monocytes (Bld) [#/Vol] 0.5 10*3/uL 0.0 - 0.8 10*3/uL [facility] Work Phone: [phone] Monocytes/100 WBC (Bld) 8.5 % 2.0 - 10.0 % [facility] Phone: Platelet distribution width (Bld) [Ratio] 15.3 % High 11.5 - 14.5 % [facility] Phone: Platelet mean volume (Bld) [Entitic vol] 9.6 fL 7.4 - 10.4 fL [facility] Work Phone: Platelets (Bld) [#/Vol] 178 10*3/uL 140 - 440 10*3/uL [facility] Work Phone: RBC (Bld) [#/Vol] 4.58 10*6/uL 4.40 - 5.9 0 10*6/uL [facility] Work Phone: WBC (Bld) [#/Vol] 5.6 10*3/uL 3.6 - 10.7 10*3/uL [facility] Work Phone: [phone] Test Performed by [employer], [address] [place] [id number] [facility] Work Phone: [phone] [facility] Work Phone: CalciumOrdered By: Nick calvert on 04-02-2021 Calcium [Mass/Vol] 10.2 mg/dL 8.4 - 10. 4 mg/dL [facility] Work Phone: [phone] Creatinine, SerumOrdered By: Nick Lopez on 04-02-2021 Creatinine [Mass/Vol] 0.77 mg/dL 0.52 - 1.25 mg/dL [facility] Work Phone: [phone] EGFR IF NonAfrican Montserratian >90.0 >60 mL/min [facility] Work Phone: [phone] Comment on above: KDIGO guidelines pro vide the following GFR categories: Stage GFR(ml/min/1.73 m2) Terms G1 >=90 Normal or high G2 60-89 Mildly decreased* G3a 45-59 Mildly to moderately decreased G3b 30-44 Moderately to severely decreased G4 15-29 Severely decreased G5 <15 Kidney failure *Relative to young adult level. In the absence of evidence of kidney damage, neither GFR category G1 nor G2 fulfill the criteria for CKD. The CKD-EPI equation is validated in individuals 18 years of age and older. Currently the best equation for estimating glomerular filtration rate (GFR) from serum creatinine in children is the Bedside Muniz equation. It is less accurate in patients with extremes of muscle mass, restriction of dietary protein, ingestion of creatine, extra-renal metabolism of creatinine, or treatment with medications that affect renal tubular creatinine secretion. GFR/1.73 sq M.predicted among blacks MDRD (S/P/Bld) [Vol rate/Area] mL/min/{1.73_m2} >60 mL/min [facility] Work Phone: [phone] Electrolyte PanelOrdered By: Nick Lopez on 04-02-2021 Anion gap [Moles/Vol] 9 mmol/L 3 - 13 mmol/L [facility] Work Phone: [phone] Chloride [Moles/Vol] 107 mmol/L 98 - 10 7 mmol/L [facility] Work Phone: [phone] CO2 [Moles/Vol] 23 mmol/L 22 - 30 mmol/L [facility] Work Phone: 1 Potassium [Moles/Vol] 4.3 mmol/L 3.5 - 5.1 mmol/L [facility] Work Phone: Sodium [Moles/Vol] 139 mmol/L 135 - 145 mmol/L [facility] Work Phone: FerritinOrdered By: Nick celis on 04-02-2021 Ferritin [Mass/Vol] 48 ng/mL 18 - 464 ng/mL [facility] Work Phone: Test Performed by [facility] [place] [address] [facility] Work Phone: [facility] Work Phone: Gamma GTOrdered By: Nick celis on 04-02-2021 Gamma glutamyl transferase [Catalytic activity/Vol] 53 U/L 12 - 58 U/L [facility] Work Phone: GlucoseOrdered By: Nick calvert on 04-02-2021 Glucose [Mass/Vol] 105 mg/dL High 70 - 100 mg/dL [facility] Work Phone: Hemoglobin [id number] By: Devon Lopez on 04-02-2021 HbA1c (Bld) [Mass fraction] 5.8 % Abnormal [facility] Work Phone: Comment on above: Normal less than 5.7 % Prediabetes 5.7% to 6.4% Diabetes 6.5% or higher --HgbA1C levels may not be accurate in patients who have renal disease, received recent blood transfusions, are anemic, or who have dyshemoglobinemia. Interpretation and review of laboratory results Abnormal [facility] Work Phone: Magnesium [Mass/Vol] 120 mg/dL [facility] Work Phone: [place] [address] [facility] Work [phone] [facility] Work Phone: [phone] Iron and TIBCOrdered By: Robel Lopez on 04-02-2021 Iron [Mass/Vol] 78 ug/dL 49 - 181 ug/dL [facility] Work Phone: [phone] Sat 25 % 15 - 50 % [facility] Work Phone: [phone] TIBC 313 ug/dL 261 - 497 ug/dL [facility] Work Phone: [phone] Test Performed by [employer], [facility] [place] [address] [facility] Work Phone: [phone] [facility] Work Phone: [phone] MagnesiumOrdered By: Nick carrera on 04-02-2021 Magnesium [Mass/Vol] 1.8 mg/dL 1.6 - 2 .3 mg/dL [facility] Work Phone: [phone] Panel InformationOrdered By: Nick Lopez on 04-02-2021 Interpretation and review of laboratory results Abnormal [facility] Work Phone: [phone] Test Performed by [employer], [facility] [place] [address] [facility] Work Phone: [phone] [facility] Work Phone: [phone] PhosphorusOrdered By: Nick Lopez on 04-02-2021 Phosphate [Mass/Vol] 3.0 mg/dL 2.5 - 4 .5 mg/dL [facility] Work Phone: [phone] TransferrinOrdered By: Nick Lopez on 04-02-2021 Transferrin [Mass/Vol] 243 mg/dL 206 - 381 mg/dL [facility] Work Phone: [phone] Test Performed by [employer] [address] [facility] Work Phone: [phone] [facility] Work Phone: [phone] Uric AcidOrdered By: Nick carrera on 04-02-2021 Urate [Mass/Vol] 8.5 mg/dL 2.5 - 8.5 mg/dL [facility] Work Phone: [phone] SpirometryOrdered By: Josie Pyle on 04-01-2021 Name: NICK HERNÁNDEZ PatientID: [id number] Gender: Male Birthdate: 1960 Study Date: 04/01/2021 1:05:29 P Age: 61 Race: White or Height: 72.0 in, 182.9 cm Weight: 202.0 lbs, 91.8 kg Smoke Status: Never Pack Years: Tbco Prod: Cigarettes Ordering Physician: [id number] Interpreting Physician: [id number] Imaging Science Professor: CAMELIA Testing Location: [facility] Diagnosis: SP LUNG TRANSPLANT Spirometry Units Pred PreDrug Pre%Pred Post Post%Pred %Change FVC L,btps 5.14 4.07 79. FEV1 L,btps 3.90 2.44 63. FEV1/FVC (%) % 76. 60. 79. [id number]% L/s 3.21 1.03 32. FEFmax L/s 9.75 5.46 56. MVV in,btps 131.99 Lung Volumes (Body Box) Units Pred PreDrug Pre%Pred TLC L,btps 7.61 VC L,btps 5.14 IC L,btps 3.89 FRC L,btps 3.72 ERV L,btps 1.26 RV L,btps 2.46 RV/TLC (%) % 32. VTG L,btps RAW H2O/L/s 1.19 SGaw cmH2O/L 0.23 Diffusion (DLCO) Units Pred PreDrug Pre%Pred DLCO ml/min/mmHg,stpd 33.09 DLCOHb ml/min/mmHg,stpd 33.09 VAsb L,btps 7.43 D/VAsb ml/min/mmHg/L,stpd 4.45 D/VAsbHb ml/min/mmHg/L,stpd 4.45 VInsp L Hgb g/dl COHb % Lung Mechanics Units Pred PreDrug Pre%Pred PImax /MIP cmH2O -81.23 PEmax /MEP cmH2O 126.31 [employer]ICING CONSULTANT NOTES Calibration check passed with acceptable system performance. Spirometry best effort, met acceptability and repeatability guidelines. 66081- SLIM Tests to perform: [id number] - SPIROMETRY WITHOUT BRONCHODILATOR PHYSICIAN INTERPRETATION Moderate Obstructive Ventilatory impairment is C/W the Dx of Asthma and/or COPD Determination of Lung volumes and Diffusion capacity would delineate the process further [facility] Work Phone: [facility] From [facility] - 04/01/2021 5:47 PM EDT Name: NICK HERNÁNDEZ PatientID: [id number] Gender: Male Birthdate: 1960 Study Date: 04/01/2021 1:05:29 P Age: 61 Race: White or Height: 72.0 in, 182.9 cm Weight: 202.0 lbs, 91.8 kg Smoke Status: Never Pack Years: Tbco Prod: Cigarettes Ordering Physician: [id number] Interpreting Physician: [id number] Imaging Science Professor: CAMELIA Testing Location: [facility] Diagnosis: SP LUNG TRANSPLANT Spirometry Units Pred PreDrug Pre%Pred Post Post%Pred %Change FVC L,btps 5.14 4.07 79. FEV1 L,btps 3.90 2.44 63. FEV1/FVC (%) % 76. 60. 79. [id number]% L/s 3.21 1.03 32. FEFmax L/s 9.75 5.46 56. MVV in,btps 131.99 Lung Volumes (Body Box) Units Pred PreDrug Pre%Pred TLC L,btps 7.61 VC L,btps 5.14 IC L,btps 3.89 FRC L,btps 3.72 ERV L,btps 1.26 RV L,btps 2.46 RV/TLC (%) % 32. VTG L,btps RAW H2O/L/s 1.19 SGaw cmH2O/L 0.23 Diffusion (DLCO) Units Pred PreDrug Pre%Pred DLCO ml/min/mmHg,stpd 33.09 DLCOHb ml/min/mmHg,stpd 33.09 VAsb L,btps 7.43 D/VAsb ml/min/mmHg/L,stpd 4.45 D/VAsbHb ml/min/mmHg/L,stpd 4.45 VInsp L Hgb g/dl COHb % Lung Mechanics Units Pred PreDrug Pre%Pred PImax /MIP cmH2O -81.23 PEmax /MEP cmH2O 126.31 [employer] PRICING CONSULTANT NOTES Calibration check passed with acceptable system performance. Spirometry best effort, met acceptability and repeatability guidelines. 76466- SLIM Tests to perform: [id number] - SPIROMETRY WITHOUT BRONCHODILATOR PHYSICIAN INTERPRETATION Moderate Obstructive Ventilatory impairment is C/W the Dx of Asthma and/or COPD Determination of Lung volumes and Diffusion capacity would delineate the process further [facility] Work Phone: [phone] [facility] Work Phone: [phone] Mirella 01-27-2021 ALT [Catalytic activity/Vol] 29 U/L 0 - 49 U/L [facility] Work Phone: [phone] Comment on above: The ALT test is perf ormed by an updated assay method. Please note that the reference intervals have been changed and are now sex specific. Alea 01-27-2021 AST [Catalytic activity/Vol] 28 U/L 15 - 46 U/L [facility] Work Phone: [phone] Albuminon 01-27-2021 Albumin [Mass/Vol] 4.5 g/dL 3.5 - 5.0 g/dL [facility] Work Phone: [phone] Alkaline Phosphataseon 01-27 ALP (Bld) [Catalytic activity/Vol] 67 U/L 38 - 126 U/L [facility] Work Phone: [phone] BILIRUBIN FRACTIONATED, ADUL Ton 01-27-2021 Bilirubin [Mass/Vol] 0.6 mg/dL 0.2 - 1 .3 mg/dL [facility] Work Phone: [phone] Bilirubin.direct [Mass/Vol] 0.0 mg/dL 0.0 - 0.3 mg/dL [facility] Work Phone: [phone] BUNon 01-27-2021 Urea nitrogen (BldV) [Mass/Vol] 20 mg/dL 7 - 20 mg/dL [facility] Work Phone: [phone] CBC Auto Differentialon 01-15 Absolute Baso # 0.0 10*3/uL 0.0 - 0.2 10*3/uL [facility] Work Phone: [phone] Absolute Neut # 3.7 10*3/uL 1.8 - 7.0 10*3/uL [facility] Work Phone: [phone] Basophils/100 WBC (Bld) 0.4 % 0.0 - 2.0 % [facility] Work Phone: [phone] Eosinophils (Bld) [#/Vol] 0.1 10*3/uL 0.0 - 0.5 10*3/uL [facility] Work Phone: 22 Eosinophils/100 WBC (Bld) 1.2 % 1.0 - 6.0 % [facility] Work Phone: Granulocytes/100 WBC (Bld) 62.1 % 40.0 - 80.0 % [facility] Work Phone: Hematocrit (Bld) [Volume fraction] 42.9 % 40.0 - 52.0 % [facility] Work Phone: Hemoglobin.gastrointesti nal spec 1 Ql (Stl) 14.2 g/dL 13.0 - 18.0 g/dL [facility] Work Phone: Lymphocytes (Bld) [#/Vol] 1.6 10*3/uL 1.0 - 4.3 10*3/uL [facility] Work Phone: 22 Lymphocytes/100 WBC (Bld) 27.0 % 20.0 - 40.0 % [facility] Work Phone: MCH (RBC) [Entitic mass] 31.2 pg 26. 0 - 34.0 pg [facility] Work Phone: MCHC (RBC) [Mass/Vol] 33.1 % 32.0 - 36.0 % [facility] Work Phone: MCV (RBC) [Entitic vol] 94.4 fL 80.0 - 98.0 fL [facility] Work Phone: Monocytes (Bld) [#/Vol] 0.6 10*3/uL 0.0 - 0.8 10*3/uL [facility] Work Phone: 22 Monocytes/100 WBC (Bld) 9.3 % 2.0 - 10.0 % [facility] Work Phone: Platelet distribution width (Bld) [Ratio] 14.4 % 11.5 - 14.5 % [facility] Work Phone: Platelet mean volume (Bld) [Entitic vol] 9.1 fL 7.4 - 10.4 fL [facility] Work Phone: Platelets (Bld) [#/Vol] 203 10*3/uL 140 - 440 10*3/uL [facility] Work Phone: RBC (Bld) [#/Vol] 4.55 10*6/uL 4.40 - 5.9 0 10*6/uL [employer] Work Phone: WBC (Bld) [#/Vol] 5.9 10*3/uL 3.6 - 10.7 10*3/uL [facility] Work Phone: Test Performed by [employer], [address] [place] [address] trough [facility] Work Phone: [phone] Calciumon 01-27-2021 Calcium [Mass/Vol] 10.3 mg/dL 8.4 - 10. 4 mg/dL [facility] Work Phone: [phone] Creatinine, Serumon 01-28-20 Creatinine [Mass/Vol] 1.26 mg/dL High 0.52 - 1.25 mg/dL [facility] Work Phone: EGFR IF NonAfrican [place]err[place]ian 62.1 mL/min >60 [facility] Work Phone: Comment on above: KDIGO guidelines pro vide the following GFR categories: Stage GFR(ml/min/1.73 m2) Terms G1 >=90 Normal or high G2 60-89 Mildly decreased* G3a 45-59 Mildly to moderately decreased G3b 30-44 Moderately to severely decreased G4 15-29 Severely decreased G5 <15 Kidney failure *Relative to young adult level. In the absence of evidence of kidney damage, neither GFR category G1 nor G2 fulfill the criteria for CKD. The CKD-EPI equation is validated in individuals 18 years of age and older. Currently the best equation for estimating glomerular filtration rate (GFR) from serum creatinine in children is the Bedside Muniz equation. It is less accurate in patients with extremes of muscle mass, restriction of dietary protein, ingestion of creatine, extra-renal metabolism of creatinine, or treatment with medications that affect renal tubular creatinine secretion. GFR/1.73 sq M predicted among blacks MDRD (S/P/Bld) [Vol rate/Area] 72.0 mL/min/{1.73_m2} >60 [facility] Work Phone: [phone] Electrolyte Panelon 01-28-20 Anion gap [Moles/Vol] 10 mmol/L 3 - 13 mmol/L [facility] Work Phone: [phone] Chloride [Moles/Vol] 108 mmol/L High 98 - 10 7 mmol/L [facility] Work Phone: [phone] CO2 [Moles/Vol] 22 mmol/L 22 - 30 mmol/L [facility] Work Phone: [phone] Potassium [Moles/Vol] 4.7 mmol/L 3.5 - 5.1 mmol/L [facility] Work Phone: [phone] Sodium [Moles/Vol] 140 mmol/L 135 - 145 mmol/L [facility] Work Phone: [phone] Ferritinon 01-27-2021 Ferritin [Mass/Vol] 78 ng/mL 18 - 464 ng/mL [facility] Work Phone: [phone] Gamma GTon 01-27-2021 Gamma glutamyl transferase [Catalytic activity/Vol] 50 U/L 12 - 58 U/L [facility] Work Phone: [phone] Glucoseon 01-27-2021 Glucose [Mass/Vol] 108 mg/dL High 70 - 100 mg/dL [facility] Work Phone: [phone] Hemoglobin A1Con 01-27-2021 eAG 114 mg/dL [facility] Work Phone: [phone] HbA1c (Bld) [Mass fraction] 5.6 % [facility] Work Phone: [phone] Comment on above: Normal less than 5.7 % Prediabetes 5.7% to 6.4% Diabetes 6.5% or higher --HgbA1C levels may not be accurate in patients who have renal disease, received recent blood transfusions, are anemic, or who have dyshemoglobinemia. Test Performed by [employer], [address] [place] [address] trough [facility] Work Phone: [phone] Iron and TIBCon 01-27-2021 Iron [Mass/Vol] 105 ug/dL 49 - 181 ug/dL [facility] Work Phone: [phone] Sat 34 % 15 - 50 % [facility] Work Phone: [phone] TIBC 310 ug/dL 261 - 497 ug/dL [facility] Work Phone: [phone] Test Performed by [employer], [address] [place] [address] trough [employer] Work Phone: [phone] Magnesiumon 01-27-2021 Magnesium [Mass/Vol] 1.6 mg/dL 1.6 - 2 .3 mg/dL [facility] Work Phone: [phone] Otheron 01-27-2021 Test Performed by [employer], [address] [place] [address] trough [facility] Work Phone: [phone] Interpretation and review of laboratory results Abnormal [facility] Work Phone: [phone] Test Performed by [employer], [address] [place] [address] trough [facility] Work Phone: [phone] Phosphoruson 01-27-2021 Phosphate [Mass/Vol] 3.2 mg/dL 2.5 - 4 .5 mg/dL [facility] Work Phone: [phone] Transferrinon 01-27-2021 Transferrin [Mass/Vol] 264 mg/dL 206 - 381 mg/dL [facility] Work Phone: [phone] Test Performed by [employer], [address] [place] [address] trough [facility] Work Phone: [phone] Uric Acidon 01-27-2021 Urate [Mass/Vol] 7.9 mg/dL 2.5 - 8.5 mg/dL [facility] Work Phone: XR ABDOMEN (KUB) (SINGLE AP VIEW)on 12-31-2020 Patient Name: NICK BANKS Diagnostic Radiology ACCESSION EXAM DATE/TIME PROCEDURE ORDERING PROVIDER [id number] 12/31/2020 14:19 EDT CR Abdomen AP LAYLA SIMMONS CPT code 89732 Reason For Exam (CR Abdomen AP) kidney stones Report EXAM TYPE: CR Abdomen AP EXAM DATE AND TIME: 12/31/2020 2:19 PM EDT INDICATION: 60 years Male with history of known calculus status post lithotripsy. COMPARISON: Multiple priors most recently from 12/16/2020 TECHNIQUE: AP supine radiograph of the abdomen and pelvis was obtained. FINDINGS: The bowel gas pattern is unremarkable. Limited evaluation for free air or air-fluid levels on supine-only imaging. No urologic calcifications are seen. Pelvic phleboliths again noted. This material within the L2, L3, and L4 vertebra are consistent with vertebroplasty. Degenerative changes are present within the lumbar spine. There is a right hip prosthesis. The lung bases are not included in the field of view. IMPRESSION: No radiopaque urinary calculi visualized. Report Dictated on --- Final --- Dictated: 12/31/2020 2:55 pm Dictating Physician: MD HARVEY KERISTEN L Signed Date and Time: 12/31/2020 2:58 pm Signed by: MD HARVEY KERISTEN L Transcribed Date and Time: 12/31/2020 2:55 [facility] Work Phone: Rodolfo, [facility] - 12/31/2020 2:59 PM EDT Patient Name: NICK HERNÁNDEZ Diagnostic Radiology ACCESSION EXAM DATE/TIME PROCEDURE ORDERING PROVIDER [id number] 12/31/2020 14:19 EDT CR Abdomen AP LAYLA SIMMONS CPT code 41554 Reason For Exam (CR Abdomen AP) kidney stones Report EXAM TYPE: CR Abdomen AP EXAM DATE AND TIME: 12/31/2020 2:19 PM EDT INDICATION: 60 years Male with history of known calculus status post lithotripsy. COMPARISON: Multiple priors most recently from 12/16/2020 TECHNIQUE: AP supine radiograph of the abdomen and pelvis was obtained. FINDINGS: The bowel gas pattern is unremarkable. Limited evaluation for free air or air-fluid levels on supine-only imaging. No urologic calcifications are seen. Pelvic phleboliths again noted. This material within the L2, L3, and L4 vertebra are consistent with vertebroplasty. Degenerative changes are present within the lumbar spine. There is a right hip prosthesis. The lung bases are not included in the field of view. IMPRESSION: No radiopaque urinary calculi visualized. Report Dictated on --- Final --- Dictated: 12/31/2020 2:55 pm Dictating Physician: MD HARVEY KERISTEN L Signed Date and Time: 12/31/2020 2:58 pm Signed by: MD HARVEY KERISTEN L Transcribed Date and Time: 12/31/2020 2:55 [facility] Work Phone: Mirella 12-23-2020 ALT [Catalytic activity/Vol] 32 U/L 0 - 49 U/L [facility] Work Phone: [phone] Comment on above: The ALT test is perf ormed by an updated assay method. Please note that the reference intervals have been changed and are now sex specific. Alea 12-23-2020 AST [Catalytic activity/Vol] 34 U/L 15 - 46 U/L [facility] Work Phone: [phone] Albuminon 12-23-2020 Albumin [Mass/Vol] 4.5 g/dL 3.5 - 5.0 g/dL [facility] Work Phone: [phone] Alkaline Phosphataseon 12-23 ALP [Catalytic activity/Vol] 80 U/L 38 - 126 U/L [facility] Work Phone: Basic Metabolic Panelon Anion gap [Moles/Vol] 11 mmol/L 3 - 13 mmol/L [facility] Work Phone: [phone] Calcium [Mass/Vol] 10.0 mg/dL 8.4 - 10. 4 mg/dL [facility] Work Phone: Chloride [Moles/Vol] 103 mmol/L 98 - 10 7 mmol/L [facility] Work Phone: CO2 [Moles/Vol] 24 mmol/L 22 - 30 mmol/L [facility] Work Phone: [phone] Creatinine [Mass/Vol] 1.26 mg/dL High 0.52 - 1.25 mg/dL [facility] Work Phone: [phone] EGFR IF NonAfrican [place]err[place] 62.1 mL/min >60 [facility] Work Phone: Comment on above: KDIGO guidelines pro vide the following GFR categories: Stage GFR(ml/min/1.73 m2) Terms G1 >=90 Normal or high G2 60-89 Mildly decreased* G3a 45-59 Mildly to moderately decreased G3b 30-44 Moderately to severely decreased G4 15-29 Severely decreased G5 <15 Kidney failure *Relative to young adult level. In the absence of evidence of kidney damage, neither GFR category G1 nor G2 fulfill the criteria for CKD. The CKD-EPI equation is validated in individuals 18 years of age and older. Currently the best equation for estimating glomerular filtration rate (GFR) from serum creatinine in children is the Bedside Muniz equation. It is less accurate in patients with extremes of muscle mass, restriction of dietary protein, ingestion of creatine, extra-renal metabolism of creatinine, or treatment with medications that affect renal tubular creatinine secretion. GFR/1.73 sq M predicted among blacks MDRD (S/P/Bld) [Vol rate/Area] 72.0 mL/min/{1.73_m2} >60 [facility] Work Phone: [phone] Glucose [Mass/Vol] 101 mg/dL High 70 - 100 mg/dL [facility] Work Phone: [phone] Interpretation and review of laboratory results Abnormal [facility] Work Phone: [phone] Potassium [Moles/Vol] 4.4 mmol/L 3.5 - 5.1 mmol/L [facility] Work Phone: [phone] Sodium [Moles/Vol] 138 mmol/L 135 - 145 mmol/L [facility] Work Phone: [phone] Urea nitrogen [Mass/Vol] 23 mg/dL High 7 - 20 mg/dL [facility] Work Phone: [phone] Bilirubin, Totalon Bilirubin Ql (U) 0.7 mg/dL 0.2 - 1.3 mg/dL [facility] Work Phone: [phone] Test Performed by [employer], [address] [place] [address] [facility] Work Phone: [phone] CBC Auto Differentialon 03-0 Absolute Baso # 0.0 10*3/uL 0.0 - 0.2 10*3/uL [facility] Work Phone: [phone] Absolute Neut # 7.1 10*3/uL High 1.8 - 7.0 10*3/uL [facility] Work Phone: [phone] Basophils/100 WBC (Bld) 0.3 % 0.0 - 2.0 % [facility] Work Phone: Eosinophils (Bld) [#/Vol] 0.0 10*3/uL 0.0 - 0.5 10*3/uL [facility] Work Phone: Eosinophils/100 WBC (Bld) 0.4 % Low 1.0 - 6.0 % [facility] Work Phone: Erythrocyte distribution width (RBC) [Ratio] 14.2 % 11.5 - 14.5 % [facility] Phone: Granulocytes/100 WBC (Bld) 80.5 % High 40.0 - 80.0 % [facility] Phone: Hematocrit (Bld) [Volume fraction] 43.6 % 40.0 - 52.0 % [facility] Work Phone: Hemoglobin (Bld) [Mass/Vol] 14.4 g/dL 13.0 - 18.0 g/dL [facility] Phone: Interpretation and review of laboratory results Abnormal [facility] Phone: Lymphocytes (Bld) [#/Vol] 1.0 10*3/uL 1.0 - 4.3 10*3/uL [facility] Work Phone: [phone] Lymphocytes/100 WBC (Bld) 11.0 % Low 20.0 - 40.0 % [facility] Work Phone: MCH (RBC) [Entitic mass] 31.3 pg 26. 0 - 34.0 pg [facility] Work Phone: MCHC (RBC) [Mass/Vol] 33.0 % 32.0 - 36.0 % [facility] Work Phone: MCV (RBC) [Entitic vol] 94.7 fL 80.0 - 98.0 fL [facility] Work Phone: [phone] Monocytes (Bld) [#/Vol] 0.7 10*3/uL 0.0 - 0.8 10*3/uL [facility] Work Phone: 1 Monocytes/100 WBC (Bld) 7.8 % 2.0 - 10.0 % [facility] Work Phone: [phone] Platelet mean volume (Bld) [Entitic vol] 9.1 fL 7.4 - 10.4 fL [facility] Work Phone: [phone] Platelets (Bld) [#/Vol] 231 10*3/uL 140 - 440 10*3/uL [facility] Work Phone: 1 RBC (Bld) [#/Vol] 4.60 10*6/uL 4.40 - 5.9 0 10*6/uL [facility] Work Phone: 1 WBC (Bld) [#/Vol] 8.8 10*3/uL 3.6 - 10.7 10*3/uL [facility] Work Phone: [phone] Test Performed by [employer], [facility] [place] [address] [facility] Work Phone: [phone] Gamma GTon 12-23-2020 Gamma glutamyl transferase [Catalytic activity/Vol] 50 U/L 12 - 58 U/L [facility] Work Phone: [phone] Magnesiumon 12-23-2020 Magnesium [Mass/Vol] 1.7 mg/dL 1.6 - 2 .3 mg/dL [facility] Work Phone: [phone] Otheron 12-23-2020 Test Performed by [employer], [facility] [place] [address] [facility] Work Phone: [phone] Phosphoruson 12-23-2020 Phosphate [Mass/Vol] 3.0 mg/dL 2.5 - 4 .5 mg/dL [facility] Work Phone: [phone] Uric Acidon 12-23-2020 Urate [Mass/Vol] 8.4 mg/dL 2.5 - 8.5 mg/dL [facility] Work Phone: [phone] [phone] Glucoseon 12-16-2020 Glucose [Mass/Vol] 141 mg/dL High 70 - 100 mg/dL [facility] Work Phone: Comment on above: Test performed by gl ucose meter. Results may be 10%-15% lower than serum/plasma values. (CLIA ID [id number]) Interpretation and review of laboratory results Abnormal [facility] Work Phone: Test Performed by [facility] [id number] [place], [place] [address] Work Phone: XR ABDOMEN (KUB) (SINGLE AP VIEW)on 12-16-2020 Patient Name: NICK BANKS Diagnostic Radiology ACCESSION EXAM DATE/TIME PROCEDURE ORDERING PROVIDER [id number] 12/16/2020 14:04 EST CR Abdomen AP TROY, LAYLA Winters CPT code 83593 Reason For Exam (CR Abdomen AP) preop eswl Report CLINICAL INDICATION: Preoperative exam. TECHNIQUE: Two views of the abdomen and pelvis. COMPARISON: 12/03/2020 FINDINGS/IMPRESSION: Nonobstructive bowel gas pattern. 4-5 mm left renal calculus is unchanged. Osseous structures appear demineralized with evidence of prior vertebroplasty in the lumbar spine as before. Degenerative spondylosis in the visualized spine and right total hip arthroplasty in place. Calcified phleboliths and/or urinary bladder calculi in the pelvis. Probable prostate calcifications. Report Dictated on --- Final --- Dictated: 12/16/2020 2:05 pm Dictating Physician: MD EWING VLADIMIR Signed Date and Time: 12/16/2020 2:08 pm Signed by: MD EWING VLADIMIR Transcribed Date and Time: 12/16/2020 2:05 [facility] Work Phone: Rodolfo, [facility] Incoming [facility] - 12/16/2020 2:09 PM EST Patient Name: NICK HERNÁNDEZ Diagnostic Radiology ACCESSION EXAM DATE/TIME PROCEDURE ORDERING PROVIDER [id number] 12/16/2020 14:04 EST CR Abdomen AP TABET, BECHARA G CPT code 83120 Reason For Exam (CR Abdomen AP) preop eswl Report CLINICAL INDICATION: Preoperative exam. TECHNIQUE: Two views of the abdomen and pelvis. COMPARISON: 12/03/2020 FINDINGS/IMPRESSION: Nonobstructive bowel gas pattern. 4-5 mm left renal calculus is unchanged. Osseous structures appear demineralized with evidence of prior vertebroplasty in the lumbar spine as before. Degenerative spondylosis in the visualized spine and right total hip arthroplasty in place. Calcified phleboliths and/or urinary bladder calculi in the pelvis. Probable prostate calcifications. Report Dictated on --- Final --- Dictated: 12/16/2020 2:05 pm Dictating Physician: MD EWING VLADIMIR Signed Date and Time: 12/16/2020 2:08 pm Signed by: MD EWING VLADIMIR Transcribed Date and Time: 12/16/2020 2:05 [facility] Work Phone: XR ABDOMEN (KUB) (SINGLE AP VIEW)on 12-03-2020 Patient Name: NICK BANKS Diagnostic Radiology ACCESSION EXAM DATE/TIME PROCEDURE ORDERING PROVIDER [id number] 12/03/2020 13:50 EST CR Abdomen AP LAYLA SIMMONS CPT code 92225 Reason For Exam (CR Abdomen AP) kidney stones N20.0 Report EXAM TYPE: CR Abdomen AP EXAM DATE AND TIME: 12/03/2020 1:50 PM EST INDICATION: 60 years Male with history of known calculus COMPARISON: 07/16/2020 TECHNIQUE: AP supine radiograph of the abdomen and pelvis was obtained. FINDINGS: The bowel gas pattern is unremarkable. Limited evaluation for free air or air-fluid levels on supine-only imaging. Small left renal calculus, unchanged. Degenerative changes are present in the spine as well as changes of multiple prior vertebroplasty has. Status post right hip arthroplasty. The visualized lung bases are unremarkable. IMPRESSION: Left renal calculus. Report Dictated on Workstation: [id number] --- Final --- Dictated: 12/03/2020 3:00 pm Dictating Physician: MD YOUNG NICHOLAS Signed Date and Time: 12/03/2020 3:01 pm Signed by: MD YOUNG NICHOLAS Transcribed Date and Time: 12/03/2020 3:00 [facility] Work Phone: [facility], [facility] - 12/03/2020 3:02 PM EST Patient Name: NICK HERNÁNDEZ Diagnostic Radiology ACCESSION EXAM DATE/TIME PROCEDURE ORDERING PROVIDER [id number] 12/03/2020 13:50 EST CR Abdomen AP LAYLA SIMMONS CPT code 43737 Reason For Exam (CR Abdomen AP) kidney stones N20.0 Report EXAM TYPE: CR Abdomen AP EXAM DATE AND TIME: 12/03/2020 1:50 PM EST INDICATION: 60 years Male with history of known calculus COMPARISON: 07/16/2020 TECHNIQUE: AP supine radiograph of the abdomen and pelvis was obtained. FINDINGS: The bowel gas pattern is unremarkable. Limited evaluation for free air or air-fluid levels on supine-only imaging. Small left renal calculus, unchanged. Degenerative changes are present in the spine as well as changes of multiple prior vertebroplasty has. Status post right hip arthroplasty. The visualized lung bases are unremarkable. IMPRESSION: Left renal calculus. Report Dictated on Workstation: [id number] --- Final --- Dictated: 12/03/2020 3:00 pm Dictating Physician: MD YOUNG NICHOLAS Signed Date and Time: 12/03/2020 3:01 pm Signed by: MD YOUNG NICHOLAS Transcribed Date and Time: 12/03/2020 3:00 [facility] Work Phone: Mirella 11-24-2020 ALT [Catalytic activity/Vol] 31 U/L 0 - 49 U/L [place], [place] Comment on above: The ALT test is perf ormed by an updated assay method. Please note that the reference intervals have been changed and are now sex specific. Alea 11-24-2020 AST [Catalytic activity/Vol] 34 U/L 15 - 46 U/L [place], [place] Albuminon 11-24-2020 Albumin [Mass/Vol] 4.5 g/dL 3.5 - 5 g/dL [place], [place] Alkaline Phosphataseon 11-24 ALP [Catalytic activity/Vol] 72 U/L 38 - 126 U/L [place] BUNon 11-24-2020 Urea nitrogen [Mass/Vol] 15 mg/dL 7 - 20 mg/dL [place] Bilirubin, Directon 11-24-19 Bilirubin.direct [Mass/Vol] 0.0 mg/dL 0 - 0.3 mg/dL [place] Bilirubin, Totalon Bilirubin Ql (U) 0.5 mg/dL 0.2 - 1.3 mg/dL [place], [place] CBC Auto Differentialon Absolute Baso # 0.0 10*3/uL 0 - 0.2 10*3/uL [place] Absolute Neut # 5.0 10*3/uL 1.8 - 7 10*3/uL [place] Basophils/100 WBC (Bld) 0.2 % 0 - 2 % [place], [place] Bilirubin.direct [Mass/Vol] Test Performed by [facility], [address] [place] [address] [facility] [place], [place] Eosinophils (Bld) [#/Vol] 0.1 10*3/uL 0 - 0.5 10*3/uL [place] Eosinophils/100 WBC (Bld) 0.9 % Low 1 - 6 % [place] Erythrocyte distribution width (RBC) [Ratio] 14.5 % 11.5 - 14.5 % [place] Granulocytes/100 WBC (Bld) 75.3 % 40 - 80 % [place] Hematocrit (Bld) [Volume fraction] 43.4 % 40 - 52 % [place] Hemoglobin (Bld) [Mass/Vol] 14.4 g/dL 13 - 18 g/dL [place] Interpretation and review of laboratory results Abnormal [place] Lymphocytes (Bld) [#/Vol] 1.1 10*3/uL 1 - 4.3 10*3/uL [place] Lymphocytes/100 WBC (Bld) 15.9 % Low 20 - 40 % [place] MCH (RBC) [Entitic mass] 31.5 pg 26 - 34 pg [place] MCHC (RBC) [Mass/Vol] 33.2 % 32 - 36 % [place], [place] MCV (RBC) [Entitic vol] 94.9 fL 80 - 98 fL [place], [place] Monocytes (Bld) [#/Vol] 0.5 10*3/uL 0 - 0.8 10*3/uL [place], [place] Monocytes/100 WBC (Bld) 7.7 % 2 - 10 % [place], [place] Platelet mean volume (Bld) [Entitic vol] 8.9 fL 7.4 - 10.4 fL [place], [place] Platelets (Bld) [#/Vol] 192 10*3/uL 140 - 440 10*3/uL [place] RBC (Bld) [#/Vol] 4.58 10*6/uL 4.4 - 5.9 10*6/uL [place] WBC (Bld) [#/Vol] 6.7 10*3/uL 3.6 - 10.7 10*3/uL [place] Calciumon 11-24-2020 Calcium [Mass/Vol] 9.8 mg/dL 8.4 - 10. 4 mg/dL [place], [place] Creatinine, Serumon 11-24-19 Creatinine [Mass/Vol] 0.98 mg/dL 0.52 - 1.25 mg/dL [place], [place] EGFR IF NonAfrican [place]err[place]ian 84.2 mL/min >60 [place], [place] Comment on above: KDIGO guidelines pro vide the following GFR categories: Stage GFR(ml/min/1.73 m2) Terms G1 >=90 Normal or high G2 60-89 Mildly decreased* G3a 45-59 Mildly to moderately decreased G3b 30-44 Moderately to severely decreased G4 15-29 Severely decreased G5 <15 Kidney failure *Relative to young adult level. In the absence of evidence of kidney damage, neither GFR category G1 nor G2 fulfill the criteria for CKD. The CKD-EPI equation is validated in individuals 18 years of age and older. Currently the best equation for estimating glomerular filtration rate (GFR) from serum creatinine in children is the Bedside Muniz equation. It is less accurate in patients with extremes of muscle mass, restriction of dietary protein, ingestion of creatine, extra-renal metabolism of creatinine, or treatment with medications that affect renal tubular creatinine secretion. GFR/1.73 sq M predicted among blacks MDRD (S/P/Bld) [Vol rate/Area] mL/min/{1.73_m2} >60 mL/min [place], [place] Electrolyte Panelon 11-24-19 21 Anion gap [Moles/Vol] 7 mmol/L [place], [place] Chloride [Moles/Vol] 106 mmol/L 98 - 10 7 mmol/L [place] CO2 [Moles/Vol] 28 mmol/L 22 - 30 mmol/L [place] Potassium [Moles/Vol] 4.2 mmol/L 3.5 - 5.1 mmol/L [place] Sodium [Moles/Vol] 141 mmol/L 135 - 145 mmol/L [place], [place] Gamma GTon 11-24-2020 Gamma glutamyl transferase [Catalytic activity/Vol] 44 U/L 12 - 58 U/L [place] Glucoseon 11-24-2020 Glucose [Mass/Vol] 109 mg/dL High 70 - 100 mg/dL [place] Interpretation and review of laboratory results Abnormal [place] Magnesiumon 11-24-2020 Magnesium [Mass/Vol] 1.6 mg/dL 1.6 - 2 .3 mg/dL [place] Metabolic Panelon 11-24-2020 Bilirubin.direct [Mass/Vol] Test Performed by [facility], [facility] [employer] [place] [address] DBILI [place] Phosphoruson 11-24-2020 Phosphate [Mass/Vol] 2.9 mg/dL 2.5 - 4 .5 mg/dL [place] Tacrolimus Levelon Bilirubin.direct [Mass/Vol] Test Performed by [facility], [facility] [place] [address] DBILI [place], [place] [id number] (Tacrolimus) 8.6 ug/L 5 - 20 ug/L [place], [place] Comment on above: Test performed using Chemiluminescent Microparticle Immunoassay (CMIA; [employer]) Uric Acidon 11-24-2020 Urate [Mass/Vol] 7.6 mg/dL 2.5 - 8.5 mg/dL [place] Mirella 10-29-2020 ALT [Catalytic activity/Vol] 33 U/L 0 - 49 U/L [place] Comment on above: The ALT test is perf ormed by an updated assay method. Please note that the reference intervals have been changed and are now sex specific. Alea 10-29-2020 AST [Catalytic activity/Vol] 39 U/L 15 - 46 U/L [place] Albuminon 10-29-2020 Albumin [Mass/Vol] 4.7 g/dL 3.5 - 5 g/dL [place] Alkaline Phosphataseon 10-29 ALP [Catalytic activity/Vol] 77 U/L 38 - 126 U/L [place] BILIRUBIN FRACTIONATED, ADUL Ton 10-29-2020 Bilirubin Ql (U) 0.7 mg/dL 0.2 - 1.3 mg/dL [place] Bilirubin.direct [Mass/Vol] 0.0 mg/dL 0 - 0.3 mg/dL [place] Basic Metabolic Panelon 10-17 Anion gap [Moles/Vol] 12 mmol/L [place], [place] Calcium [Mass/Vol] 10.4 mg/dL 8.4 - 10. 4 mg/dL [place] Chloride [Moles/Vol] 104 mmol/L 98 - 10 7 mmol/L [place] CO2 [Moles/Vol] 25 mmol/L 22 - 30 mmol/L [place] Creatinine [Mass/Vol] 0.92 mg/dL 0.52 - 1.25 mg/dL [place] EGFR IF NonAfrican [place]ian >90.0 >60 mL/min [place], [place] Comment on above: KDIGO guidelines pro vide the following GFR categories: Stage GFR(ml/min/1.73 m2) Terms G1 >=90 Normal or high G2 60-89 Mildly decreased* G3a 45-59 Mildly to moderately decreased G3b 30-44 Moderately to severely decreased G4 15-29 Severely decreased G5 <15 Kidney failure *Relative to young adult level. In the absence of evidence of kidney damage, neither GFR category G1 nor G2 fulfill the criteria for CKD. The CKD-EPI equation is validated in individuals 18 years of age and older. Currently the best equation for estimating glomerular filtration rate (GFR) from serum creatinine in children is the Bedside Muniz equation. It is less accurate in patients with extremes of muscle mass, restriction of dietary protein, ingestion of creatine, extra-renal metabolism of creatinine, or treatment with medications that affect renal tubular creatinine secretion. GFR/1.73 sq M predicted among blacks MDRD (S/P/Bld) [Vol rate/Area] mL/min/{1.73_m2} >60 mL/min [place], [place] Glucose [Mass/Vol] 123 mg/dL High 70 - 100 mg/dL [place] Potassium [Moles/Vol] 4.8 mmol/L 3.5 - 5.1 mmol/L [place] Sodium [Moles/Vol] 142 mmol/L 135 - 145 mmol/L [place] Urea nitrogen [Mass/Vol] 15 mg/dL 7 - 20 mg/dL [place] CBC Auto Differentialon 10-17 Absolute Baso # 0.0 10*3/uL 0 - 0.2 10*3/uL [place] Absolute Neut # 4.6 10*3/uL 1.8 - 7 10*3/uL [place] Basophils/100 WBC (Bld) 0.1 % 0 - 2 % [place] Eosinophils (Bld) [#/Vol] 0.0 10*3/uL 0 - 0.5 10*3/uL [place] Eosinophils/100 WBC (Bld) 0.2 % Low 1 - 6 % [place] Erythrocyte distribution width (RBC) [Ratio] 14.3 % 11.5 - 14.5 % [place] Granulocytes/100 WBC (Bld) 80.5 % High 40 - 80 % [place] Hematocrit (Bld) [Volume fraction] 43.5 % 40 - 52 % [place] Hemoglobin (Bld) [Mass/Vol] 14.3 g/dL 13 - 18 g/dL [place] Interpretation and review of laboratory results Abnormal [place] Lymphocytes (Bld) [#/Vol] 0.8 10*3/uL Low 1 - 4.3 10*3/uL [place] Lymphocytes/100 WBC (Bld) 13.1 % Low 20 - 40 % [place] MCH (RBC) [Entitic mass] 31.1 pg 26 - 34 pg [place] MCHC (RBC) [Mass/Vol] 32.9 % 32 - 36 % [place] MCV (RBC) [Entitic vol] 94.5 fL 80 - 98 fL [place] Monocytes (Bld) [#/Vol] 0.4 10*3/uL 0 - 0.8 10*3/uL [place] Monocytes/100 WBC (Bld) 6.1 % 2 - 10 % [place] Platelet mean volume (Bld) [Entitic vol] 9.1 fL 7.4 - 10.4 fL [place] Platelets (Bld) [#/Vol] 198 10*3/uL 140 - 440 10*3/uL [place] RBC (Bld) [#/Vol] 4.60 10*6/uL 4.4 - 5.9 10*6/uL [place] WBC (Bld) [#/Vol] 5.8 10*3/uL 3.6 - 10.7 10*3/uL [place] Test Performed by [facility], [facility] [employer] [place] [address] [place] Ferritinon 10-29-2020 Ferritin [Mass/Vol] 79 ng/mL 18 - 464 ng/mL [place] Test Performed by [facility], [facility] [employer] [place] [address] [place] Gamma GTon 10-29-2020 Gamma glutamyl transferase [Catalytic activity/Vol] 42 U/L 12 - 58 U/L [place] Hemoglobin A1Con 10-29-2020 eAG 111 mg/dL [place] HbA1c (Bld) [Mass fraction] 5.5 % [place] Comment on above: Normal less than 5.7 % Prediabetes 5.7% to 6.4% Diabetes 6.5% or higher --HgbA1C levels may not be accurate in patients who have renal disease, received recent blood transfusions, are anemic, or who have dyshemoglobinemia. Test Performed by [facility], [address] [place] [address] [place] Iron and TIBCon 10-29-2020 Interpretation and review of laboratory results Abnormal [place] Iron [Mass/Vol] 173 ug/dL 49 - 181 ug/dL [place] Sat 56 % High 15 - 50 % [place] TIBC 311 ug/dL 261 - 497 ug/dL [place] Test Performed by [facility], [facility] [place] [address] [place] Magnesiumon 10-29-2020 Magnesium [Mass/Vol] 1.7 mg/dL 1.6 - 2 .3 mg/dL [place] Otheron 10-29-2020 Interpretation and review of laboratory results Abnormal [place] Test Performed by [facility], [facility] [place] [address] [place] Phosphoruson 10-29-2020 Phosphate [Mass/Vol] 2.4 mg/dL Low 2.5 - 4 .5 mg/dL [place] Uric Acidon 10-29-2020 Urate [Mass/Vol] 7.2 mg/dL 2.5 - 8.5 mg/dL [place] Bilirubin, Directon 09-19-20 20 Bilirubin.direct [Mass/Vol] 0.0 mg/dL 0 - 0.3 mg/dL [place] CBC Auto Differentialon Absolute Baso # 0.1 10*3/uL 0 - 0.2 10*3/uL [place] Absolute Neut # 5.3 10*3/uL 1.8 - 7 10*3/uL [place] Basophils/100 WBC (Bld) 1.8 % 0 - 2 % [place] Eosinophils (Bld) [#/Vol] 0.0 10*3/uL 0 - 0.5 10*3/uL [place] Eosinophils/100 WBC (Bld) 0.6 % Low 1 - 6 % [place] Erythrocyte distribution width (RBC) [Ratio] 14.7 % High 11.5 - 14.5 % [place] Granulocytes/100 WBC (Bld) 75.5 % 40 - 80 % [place] Hematocrit (Bld) [Volume fraction] 41.5 % 40 - 52 % [place] Hemoglobin (Bld) [Mass/Vol] 13.9 g/dL 13 - 18 g/dL [place] Interpretation and review of laboratory results Abnormal [place] Lymphocytes (Bld) [#/Vol] 0.9 10*3/uL Low 1 - 4.3 10*3/uL [place] Lymphocytes/100 WBC (Bld) 12.6 % Low 20 - 40 % [place] MCH (RBC) [Entitic mass] 31.8 pg 26 - 34 pg [place] MCHC (RBC) [Mass/Vol] 33.4 % 32 - 36 % [place] MCV (RBC) [Entitic vol] 95.3 fL 80 - 98 fL [place] Monocytes (Bld) [#/Vol] 0.7 10*3/uL 0 - 0.8 10*3/uL [place] Monocytes/100 WBC (Bld) 9.5 % 2 - 10 % [place] Platelet mean volume (Bld) [Entitic vol] 8.1 fL 7.4 - 10.4 fL [place] Platelets (Bld) [#/Vol] 255 10*3/uL 140 - 440 10*3/uL [place] RBC (Bld) [#/Vol] 4.36 10*6/uL Low 4.4 - 5.9 10*6/uL [place] WBC (Bld) [#/Vol] 7.0 10*3/uL 3.6 - 10.7 10*3/uL [place] Test Performed by [facility], [address] , [place], [place] [address] [place] Comprehensive Metabolic Pane amaya 09-19-2020 Albumin [Mass/Vol] 4.6 g/dL 3.5 - 5 g/dL [place] ALP [Catalytic activity/Vol] 87 U/L 38 - 126 U/L [place] ALT [Catalytic activity/Vol] 28 U/L 0 - 49 U/L [place] Comment on above: The ALT test is perf ormed by an updated assay method. Please note that the reference intervals have been changed and are now sex specific. Anion gap [Moles/Vol] 9 mmol/L [place] AST [Catalytic activity/Vol] 30 U/L 15 - 46 U/L [place] Bilirubin Ql (U) 0.6 mg/dL 0.2 - 1.3 mg/dL [place] Calcium [Mass/Vol] 10.2 mg/dL 8.4 - 10. 4 mg/dL [place] Chloride [Moles/Vol] 106 mmol/L 98 - 10 7 mmol/L [place] CO2 [Moles/Vol] 26 mmol/L 22 - 30 mmol/L [place] Creatinine [Mass/Vol] 1.05 mg/dL 0.52 - 1.25 mg/dL [place] EGFR IF NonAfrican [place] 77.6 mL/min >60 [place] Comment on above: KDIGO guidelines pro vide the following GFR categories: Stage GFR(ml/min/1.73 m2) Terms G1 >=90 Normal or high G2 60-89 Mildly decreased* G3a 45-59 Mildly to moderately decreased G3b 30-44 Moderately to severely decreased G4 15-29 Severely decreased G5 <15 Kidney failure *Relative to young adult level. In the absence of evidence of kidney damage, neither GFR category G1 nor G2 fulfill the criteria for CKD. The CKD-EPI equation is validated in individuals 18 years of age and older. Currently the best equation for estimating glomerular filtration rate (GFR) from serum creatinine in children is the Bedside Muniz equation. It is less accurate in patients with extremes of muscle mass, restriction of dietary protein, ingestion of creatine, extra-renal metabolism of creatinine, or treatment with medications that affect renal tubular creatinine secretion. GFR/1.73 sq M predicted among blacks MDRD (S/P/Bld) [Vol rate/Area] 89.9 mL/min/{1.73_m2} >60 [place] Glucose [Mass/Vol] 125 mg/dL High 70 - 100 mg/dL [place] Interpretation and review of laboratory results Abnormal [place] Potassium [Moles/Vol] 4.3 mmol/L 3.5 - 5.1 mmol/L [place] Protein [Mass/Vol] 7.3 g/dL 6.3 - 8.2 g/dL [place] Sodium [Moles/Vol] 141 mmol/L 135 - 145 mmol/L [place] Urea nitrogen [Mass/Vol] 20 mg/dL 7 - 20 mg/dL [place] Magnesiumon 09-19-2020 Magnesium [Mass/Vol] 1.7 mg/dL 1.6 - 2 .3 mg/dL [place] Otheron 09-19-2020 Test Performed by [facility], [address] [place] [address]. , [address] Phosphoruson 09-19-2020 Phosphate [Mass/Vol] 3.5 mg/dL 2.5 - 4 .5 mg/dL [place] Uric Acidon 09-19-2020 Urate [Mass/Vol] 8.0 mg/dL 2.5 - 8.5 mg/dL [place] Spirometry without bronchodi latoron 09-16-2020 Name: NICK HERNÁNDEZ PatientID: [id number] Gender: Male Birthdate: 1960 Study Date: 09/16/2020 9:14:27 A Age: 60 Race: White or Height: 71.0 in, 180.3 cm Weight: 209.0 lbs, 95.0 kg Smoke Status: Never Pack Years: Tbco Prod: Cigarettes Ordering Physician: [id number] Interpreting Physician: [id number] Imaging Science Professor: MITZI Chong Location: [facility] Diagnosis: S/P LUNG TRANSPLANT Spirometry Units Pred PreDrug Pre%Pred Post Post%Pred %Change FVC L,btps 5.00 4.06 81. FEV1 L,btps 3.80 2.52 66. FEV1/FVC (%) % 76. 62. 82. HEP12-05% L/s 3.17 1.21 38. FEFmax L/s 9.59 5.56 58. MVV in,btps 129.78 Lung Volumes (Body Box) Units Pred PreDrug Pre%Pred TLC L,btps 7.41 VC L,btps 5.00 IC L,btps 3.76 FRC L,btps 3.65 ERV L,btps 1.24 RV L,btps 2.41 RV/TLC (%) % 33. VTG L,btps RAW H2O/L/s 1.22 SGaw cmH2O/L 0.22 Diffusion (DLCO) Units Pred PreDrug Pre%Pred DLCO ml/min/mmHg,stpd 32.55 DLCOHb ml/min/mmHg,stpd 32.55 VAsb L,btps 7.24 D/VAsb ml/min/mmHg/L,stpd 4.50 D/VAsbHb ml/min/mmHg/L,stpd 4.50 VInsp L Hgb g/dl COHb % Lung Mechanics Units Pred PreDrug Pre%Pred PImax /MIP cmH2O -82.26 PEmax /MEP cmH2O 127.22 [facility] PRICING CONSULTANT NOTES Good Patient effort. Consistent results. Best results reported.Calibration check passed with acceptable system performance. The patient performed all pre-test requirements. Pt denies sob. Pt has a dry npc with deep inspiration/exhale. Tests to perform: [id number] - SPIROMETRY WITHOUT BRONCHODILATOR PHYSICIAN INTERPRETATION Moderate small airway obstuction indicted by reduced FEV1, FEV1/FVC, mid range flows, and or FVC/SVC. Forced expiratory spirogram reveals moderate large airways obstructive lung disease. Spirograms are of good quality and do not plateau. The respiratory flow volume loop reveals decreased flows at all volumes consistent with large and small airways obstruction. Moderate large airways obstructive lung disease. [place] [facility], [facility] Results From [facility] - 09/16/2020 9:44 AM EST Name: NICK HERNÁNDEZ PatientID: [id number] Gender: Male Birthdate: 1960 Study Date: 09/16/2020 9:14:27 A Age: 60 Race: White or Height: 71.0 in, 180.3 cm Weight: 209.0 lbs, 95.0 kg Smoke Status: Never Pack Years: Tbco Prod: Cigarettes Ordering Physician: [id number] Interpreting Physician: [id number] Imaging Science Professor: MITZI Chong Location: [facility] Diagnosis: S/P LUNG TRANSPLANT Spirometry Units Pred PreDrug Pre%Pred Post Post%Pred %Change FVC L,btps 5.00 4.06 81. FEV1 L,btps 3.80 2.52 66. FEV1/FVC (%) % 76. 62. 82. [id number]% L/s 3.17 1.21 38. FEFmax L/s 9.59 5.56 58. MVV in,btps 129.78 Lung Volumes (Body Box) Units Pred PreDrug Pre%Pred TLC L,btps 7.41 VC L,btps 5.00 IC L,btps 3.76 FRC L,btps 3.65 ERV L,btps 1.24 RV L,btps 2.41 RV/TLC (%) % 33. VTG L,btps RAW H2O/L/s 1.22 SGaw cmH2O/L 0.22 Diffusion (DLCO) Units Pred PreDrug Pre%Pred DLCO ml/min/mmHg,stpd 32.55 DLCOHb ml/min/mmHg,stpd 32.55 VAsb L,btps 7.24 D/VAsb ml/min/mmHg/L,stpd 4.50 D/VAsbHb ml/min/mmHg/L,stpd 4.50 VInsp L Hgb g/dl COHb % Lung Mechanics Units Pred PreDrug Pre%Pred PImax /MIP cmH2O -82.26 PEmax /MEP cmH2O 127.22 [facility] PRICING CONSULTANT NOTES Good Patient effort. Consistent results. Best results reported.Calibration check passed with acceptable system performance. The patient performed all pre-test requirements. Pt denies sob. Pt has a dry npc with deep inspiration/exhale. Tests to perform: [id number] - SPIROMETRY WITHOUT BRONCHODILATOR PHYSICIAN INTERPRETATION Moderate small airway obstuction indicted by reduced FEV1, FEV1/FVC, mid range flows, and or FVC/SVC. Forced expiratory spirogram reveals moderate large airways obstructive lung disease. Spirograms are of good quality and do not plateau. The respiratory flow volume loop reveals decreased flows at all volumes consistent with large and small airways obstruction. Moderate large airways obstructive lung disease. [place] Bilirubin, Directon 08-26-20 20 Bilirubin.direct [Mass/Vol] 0.0 mg/dL 0 - 0.3 mg/dL [place] CBC Auto Differentialon 08-17 02020 Absolute Baso # 0.0 10*3/uL 0 - 0.2 10*3/uL [place] Absolute Neut # 3.6 10*3/uL 1.8 - 7 10*3/uL [place] Basophils/100 WBC (Bld) 0.4 % 0 - 2 % [place] Eosinophils (Bld) [#/Vol] 0.0 10*3/uL 0 - 0.5 10*3/uL [place] Eosinophils/100 WBC (Bld) 0.7 % Low 1 - 6 % [place] Erythrocyte distribution width (RBC) [Ratio] 14.4 % 11.5 - 14.5 % [place] Granulocytes/100 WBC (Bld) 65.4 % 40 - 80 % [place] Hematocrit (Bld) [Volume fraction] 40.5 % 40 - 52 % [place] Hemoglobin (Bld) [Mass/Vol] 13.7 g/dL 13 - 18 g/dL [place] Interpretation and review of laboratory results Abnormal [place] Lymphocytes (Bld) [#/Vol] 1.3 10*3/uL 1 - 4.3 10*3/uL [place] Lymphocytes/100 WBC (Bld) 23.2 % 20 - 40 % [place] MCH (RBC) [Entitic mass] 31.7 pg 26 - 34 pg [place] MCHC (RBC) [Mass/Vol] 33.7 % 32 - 36 % [place] MCV (RBC) [Entitic vol] 94.1 fL 80 - 98 fL [place] Monocytes (Bld) [#/Vol] 0.6 10*3/uL 0 - 0.8 10*3/uL [place] Monocytes/100 WBC (Bld) 10.3 % High 2 - 10 % [place] Platelet mean volume (Bld) [Entitic vol] 8.5 fL 7.4 - 10.4 fL [place] Platelets (Bld) [#/Vol] 280 10*3/uL 140 - 440 10*3/uL [place] RBC (Bld) [#/Vol] 4.30 10*6/uL Low 4.4 - 5.9 10*6/uL [place] WBC (Bld) [#/Vol] 5.5 10*3/uL 3.6 - 10.7 10*3/uL [place] Test Performed by [facility], [address] [place] [address] Rd. , [place], [place] [id number] [place] [address] Comprehensive Metabolic Pane amaya 08-26-2020 Albumin [Mass/Vol] 4.5 g/dL 3.5 - 5 g/dL [place] ALP [Catalytic activity/Vol] 84 U/L 38 - 126 U/L [place] ALT [Catalytic activity/Vol] 31 U/L 0 - 49 U/L [place] Comment on above: The ALT test is perf ormed by an updated assay method. Please note that the reference intervals have been changed and are now sex specific. Anion gap [Moles/Vol] 10 mmol/L [place] AST [Catalytic activity/Vol] 29 U/L 15 - 46 U/L [place] Bilirubin Ql (U) 0.3 mg/dL 0.2 - 1.3 mg/dL [place] Calcium [Mass/Vol] 10.4 mg/dL 8.4 - 10. 4 mg/dL [place] Chloride [Moles/Vol] 108 mmol/L High 98 - 10 7 mmol/L [place] CO2 [Moles/Vol] 21 mmol/L Low 22 - 30 mmol/L [place] Creatinine [Mass/Vol] 1.03 mg/dL 0.52 - 1.25 mg/dL [place] EGFR IF NonAfrican [place] 79.5 mL/min >60 [place] Comment on above: KDIGO guidelines pro vide the following GFR categories: Stage GFR(ml/min/1.73 m2) Terms G1 >=90 Normal or high G2 60-89 Mildly decreased* G3a 45-59 Mildly to moderately decreased G3b 30-44 Moderately to severely decreased G4 15-29 Severely decreased G5 <15 Kidney failure *Relative to young adult level. In the absence of evidence of kidney damage, neither GFR category G1 nor G2 fulfill the criteria for CKD. The CKD-EPI equation is validated in individuals 18 years of age and older. Currently the best equation for estimating glomerular filtration rate (GFR) from serum creatinine in children is the Bedside Muniz equation. It is less accurate in patients with extremes of muscle mass, restriction of dietary protein, ingestion of creatine, extra-renal metabolism of creatinine, or treatment with medications that affect renal tubular creatinine secretion. GFR/1.73 sq M predicted among blacks MDRD (S/P/Bld) [Vol rate/Area] mL/min/{1.73_m2} >60 mL/min [place] Glucose [Mass/Vol] 125 mg/dL High 70 - 100 mg/dL [place] Potassium [Moles/Vol] 4.8 mmol/L 3.5 - 5.1 mmol/L [place] Protein [Mass/Vol] 6.7 g/dL 6.3 - 8.2 g/dL [place] Sodium [Moles/Vol] 139 mmol/L 135 - 145 mmol/L [place] Urea nitrogen [Mass/Vol] 16 mg/dL 7 - 20 mg/dL [place] Hemoglobin A1Con 08-26-2020 eAG 120 mg/dL [place] HbA1c (Bld) [Mass fraction] 5.8 % 4 - 6 % [place] Comment on above: --HgbA1C levels may not be accurate in patients who have renal disease, received recent blood transfusions, are anemic, or who have dyshemoglobinemia. IgAon 08-26-2020 IgA [Mass/Vol] 83.3 mg/dL 70 - 400 mg/dL [place] IgGon 08-26-2020 IgG [Mass/Vol] 715.2 mg/dL 700 - 1600 mg/dL [place] IgMon 08-26-2020 IgM [Mass/Vol] 35.5 mg/dL Low 40 - 230 mg/dL [place] Interpretation and review of laboratory results Abnormal [place] Iron and TIBCon 08-26-2020 Iron [Mass/Vol] 97 ug/dL 49 - 181 ug/dL [place] Sat 31 % 15 - 50 % [place] TIBC 309 ug/dL 261 - 497 ug/dL [place] Test Performed by [facility], [address] Magnesiumon 08-26-2020 Magnesium [Mass/Vol] 1.5 mg/dL Low 1.6 - 2 .3 mg/dL [place] Otheron 08-26-2020 Test Performed by [facility], [address] Interpretation and review of laboratory results Abnormal [place] Test Performed by [facility], [address] [place], [place] [id number] [place] [address] Phosphoruson 08-26-2020 Phosphate [Mass/Vol] 3.4 mg/dL 2.5 - 4 .5 mg/dL [place] Transferrinon 08-26-2020 Transferrin [Mass/Vol] 242 mg/dL 206 - 381 mg/dL [place] Test Performed by [facility], [address] Uric Acidon 08-26-2020 Urate [Mass/Vol] 5.8 mg/dL 2.5 - 8.5 mg/dL [place] Bilirubin, Directon 07-22-20 20 Bilirubin.direct [Mass/Vol] 0.0 mg/dL 0 - 0.3 mg/dL [place] CBC Auto Differentialon 10-0 6-2020 Absolute Baso # 0.0 10*3/uL 0 - 0.2 10*3/uL [place] Absolute Neut # 4.1 10*3/uL 1.8 - 7 10*3/uL [place] Basophils/100 WBC (Bld) 0.2 % 0 - 2 % [place] Eosinophils (Bld) [#/Vol] 0.1 10*3/uL 0 - 0.5 10*3/uL [place] Eosinophils/100 WBC (Bld) 1.0 % 1 - 6 % [place] Erythrocyte distribution width (RBC) [Ratio] 14.5 % 11.5 - 14.5 % [place] Granulocytes/100 WBC (Bld) 68.1 % 40 - 80 % [place] Hematocrit (Bld) [Volume fraction] 42.2 % 40 - 52 % [place] Hemoglobin (Bld) [Mass/Vol] 14.4 g/dL 13 - 18 g/dL [place] Interpretation and review of laboratory results Abnormal [place] Lymphocytes (Bld) [#/Vol] 1.2 10*3/uL 1 - 4.3 10*3/uL [place] Lymphocytes/100 WBC (Bld) 20.3 % 20 - 40 % [place] MCH (RBC) [Entitic mass] 32.0 pg 26 - 34 pg [place] MCHC (RBC) [Mass/Vol] 34.1 % 32 - 36 % [place] MCV (RBC) [Entitic vol] 93.8 fL 80 - 98 fL [place] Monocytes (Bld) [#/Vol] 0.6 10*3/uL 0 - 0.8 10*3/uL [place] Monocytes/100 WBC (Bld) 10.4 % High 2 - 10 % [place] Platelet mean volume (Bld) [Entitic vol] 8.1 fL 7.4 - 10.4 fL [place] Platelets (Bld) [#/Vol] 225 10*3/uL 140 - 440 10*3/uL [place] RBC (Bld) [#/Vol] 4.50 10*6/uL 4.4 - 5.9 10*6/uL [place] WBC (Bld) [#/Vol] 6.0 10*3/uL 3.6 - 10.7 10*3/uL [place] Test Performed by [facility], [facility] [address] , [place], [place] [id number] [place] [address] Comprehensive Metabolic Pane amaya 07-22-2020 Albumin [Mass/Vol] 4.5 g/dL 3.5 - 5 g/dL [place] ALP [Catalytic activity/Vol] 77 U/L 38 - 126 U/L [place] ALT [Catalytic activity/Vol] 38 U/L 0 - 49 U/L [place] Comment on above: The ALT test is perf ormed by an updated assay method. Please note that the reference intervals have been changed and are now sex specific. Anion gap [Moles/Vol] 8 mmol/L [place] AST [Catalytic activity/Vol] 33 U/L 15 - 46 U/L [place] Bilirubin Ql (U) 0.4 mg/dL 0.2 - 1.3 mg/dL [place] Calcium [Mass/Vol] 10.0 mg/dL 8.4 - 10. 4 mg/dL [place] Chloride [Moles/Vol] 109 mmol/L High 98 - 10 7 mmol/L [place] CO2 [Moles/Vol] 26 mmol/L 22 - 30 mmol/L [place] Creatinine [Mass/Vol] 1.33 mg/dL High 0.52 - 1.25 mg/dL [place] EGFR IF NonAfrican [place] 58.4 mL/min Abnormal >60 [place] Comment on above: KDIGO guidelines pro vide the following GFR categories: Stage GFR(ml/min/1.73 m2) Terms G1 >=90 Normal or high G2 60-89 Mildly decreased* G3a 45-59 Mildly to moderately decreased G3b 30-44 Moderately to severely decreased G4 15-29 Severely decreased G5 <15 Kidney failure *Relative to young adult level. In the absence of evidence of kidney damage, neither GFR category G1 nor G2 fulfill the criteria for CKD. The CKD-EPI equation is validated in individuals 18 years of age and older. Currently the best equation for estimating glomerular filtration rate (GFR) from serum creatinine in children is the Bedside Muniz equation. It is less accurate in patients with extremes of muscle mass, restriction of dietary protein, ingestion of creatine, extra-renal metabolism of creatinine, or treatment with medications that affect renal tubular creatinine secretion. GFR/1.73 sq M predicted among blacks MDRD (S/P/Bld) [Vol rate/Area] 67.7 mL/min/{1.73_m2} >60 [place] Glucose [Mass/Vol] 116 mg/dL High 70 - 100 mg/dL [place] Interpretation and review of laboratory results Abnormal [place] Potassium [Moles/Vol] 4.7 mmol/L 3.5 - 5.1 mmol/L [place] Protein [Mass/Vol] 6.8 g/dL 6.3 - 8.2 g/dL [place] Sodium [Moles/Vol] 143 mmol/L 135 - 145 mmol/L [place] Urea nitrogen [Mass/Vol] 20 mg/dL 7 - 20 mg/dL [place] Magnesiumon 07-22-2020 Magnesium [Mass/Vol] 1.6 mg/dL 1.6 - 2 .3 mg/dL [place] Otheron 07-22-2020 Test Performed by [facility], [address] [place], [place] [address] , [address] Phosphoruson 07-22-2020 Phosphate [Mass/Vol] 3.6 mg/dL 2.5 - 4 .5 mg/dL [place] Spirometry without bronchodi latoron 07-22-2020 Name: NICK HERNÁNDEZ PatientID: [id number] Gender: Male Birthdate: 1960 Study Date: 07/22/2020 9:13:32 A Age: 60 Race: White or Height: 71.0 in, 180.3 cm Weight: 200.0 lbs, 90.9 kg Smoke Status: Never Pack Years: Tbco Prod: Cigarettes Ordering Physician: [id number] Interpreting Physician: [id number] Imaging Science Professor: CATHERINE MORAN Testing Location: [facility] Diagnosis: S/P Lung transplant Z94.2 Spirometry Units Pred PreDrug Pre%Pred Post Post%Pred %Change FVC L,btps 5.00 4.12 82. FEV1 L,btps 3.80 2.52 66. FEV1/FVC (%) % 76. 61. 81. TPL26-39% L/s 3.17 1.00 32. FEFmax L/s 9.59 5.90 62. MVV in,btps 129.78 Lung Volumes (Body Box) Units Pred PreDrug Pre%Pred TLC L,btps 7.41 VC L,btps 5.00 IC L,btps 3.76 FRC L,btps 3.65 ERV L,btps 1.24 RV L,btps 2.41 RV/TLC (%) % 33. VTG L,btps RAW H2O/L/s 1.22 SGaw cmH2O/L 0.22 Diffusion (DLCO) Units Pred PreDrug Pre%Pred DLCO ml/min/mmHg,stpd 32.55 DLCOHb ml/min/mmHg,stpd 32.55 VAsb L,btps 7.24 D/VAsb ml/min/mmHg/L,stpd 4.50 D/VAsbHb ml/min/mmHg/L,stpd 4.50 VInsp L Hgb g/dl COHb % Lung Mechanics Units Pred PreDrug Pre%Pred PImax /MIP cmH2O -82.26 PEmax /MEP cmH2O 127.22 [facility] [employer]IC[employer] CONSULTANT NOTES Calibration check passed with acceptable system performance. Spirometry best effort, met acceptability and repeatability guidelines. 48519- SLIM Tests to perform: [id number] - SPIROMETRY WITHOUT BRONCHODILATOR PHYSICIAN INTERPRETATION Moderate small airway obstuction indicted by reduced FEV1, FEV1/FVC, mid range flows, and or FVC/SVC. Forced expiratory spirogram reveals moderate large airways obstructive lung disease. Spirograms are of good quality and do not plateau. The respiratory flow volume loop reveals decreased flows at all volumes consistent with large and small airways obstruction. Forced expiratory spirogram reveals no large airways obstruction. Spirograms are of good quality and plateau gradually. The respiratory flow volume loop reveals a decrease in the FEF 25-75% and concave sloping of the terminal segment suggesting small airways obstruction. Moderate large airways obstructive lung disease. [facility], [place], [facility] Incoming Cardiology Results From [employer] - 07/22/2020 2:02 PM EDT Name: NICK HERNÁNDEZ PatientID: [id number] Gender: Male Birthdate: 1960 Study Date: 07/22/2020 9:13:32 A Age: 60 Race: White or Height: 71.0 in, 180.3 cm Weight: 200.0 lbs, 90.9 kg Smoke Status: Never Pack Years: Tbco Prod: Cigarettes Ordering Physician: [id number] Interpreting Physician: [id number] Imaging Science Professor: CATHERINE MORAN Testing Location: [facility] Diagnosis: S/P Lung transplant Z94.2 Spirometry Units Pred PreDrug Pre%Pred Post Post%Pred %Change FVC L,btps 5.00 4.12 82. FEV1 L,btps 3.80 2.52 66. FEV1/FVC (%) % 76. 61. 81. WNF81-47% L/s 3.17 1.00 32. FEFmax L/s 9.59 5.90 62. MVV in,btps 129.78 Lung Volumes (Body Box) Units Pred PreDrug Pre%Pred TLC L,btps 7.41 VC L,btps 5.00 IC L,btps 3.76 FRC L,btps 3.65 ERV L,btps 1.24 RV L,btps 2.41 RV/TLC (%) % 33. VTG L,btps RAW H2O/L/s 1.22 SGaw cmH2O/L 0.22 Diffusion (DLCO) Units Pred PreDrug Pre%Pred DLCO ml/min/mmHg,stpd 32.55 DLCOHb ml/min/mmHg,stpd 32.55 VAsb L,btps 7.24 D/VAsb ml/min/mmHg/L,stpd 4.50 D/VAsbHb ml/min/mmHg/L,stpd 4.50 VInsp L Hgb g/dl COHb % Lung Mechanics Units Pred PreDrug Pre%Pred PImax /MIP cmH2O -82.26 PEmax /MEP cmH2O 127.22 [facility] PRICING CONSULTANT NOTES Calibration check passed with acceptable system performance. Spirometry best effort, met acceptability and repeatability guidelines. 07106- SLIM Tests to perform: [id number] - SPIROMETRY WITHOUT BRONCHODILATOR PHYSICIAN INTERPRETATION Moderate small airway obstuction indicted by reduced FEV1, FEV1/FVC, mid range flows, and or FVC/SVC. Forced expiratory spirogram reveals moderate large airways obstructive lung disease. Spirograms are of good quality and do not plateau. The respiratory flow volume loop reveals decreased flows at all volumes consistent with large and small airways obstruction. Forced expiratory spirogram reveals no large airways obstruction. Spirograms are of good quality and plateau gradually. The respiratory flow volume loop reveals a decrease in the FEF 25-75% and concave sloping of the terminal segment suggesting small airways obstruction. Moderate large airways obstructive lung disease. [place], [place] Uric Acidon 07-22-2020 Urate [Mass/Vol] 6.3 mg/dL 2.5 - 8.5 mg/dL [place] Psa screeningon 07-16-2020 Test Performed by [facility], [address] [place] [address] XR ABDOMEN (KUB) (SINGLE AP VIEW)on 07-16-2020 Patient Name: NICK BANKS ---Diagnostic Radiology--- Exam Date/Time 07/16/2020 09:49:13 EDT Exam CR Abdomen AP Ordering Physician LAYLA SIMMONS Accession Number [id number] CPT4 Codes 74067 () Reason For Exam kidney stones Report Abdomen: 07/16/2020. Clinical Information: Pain. Findings: A single supine view of the abdomen reveals a nonspecific nonobstructive bowel gas pattern. There is no evidence of organomegaly. There is a punctate calcification superimposed over the mid pole of the left kidney similar to the prior study 12/19/2019. Fecal residue obscures the upper pole of the left kidney. No abnormal calcifications are identified in the expected location of the right kidney or ureters on either side. There have been vertebral plasties of the L2-L4 levels. Impression: Nonobstructing left pelvicalyceal calculus. Consider constipation. Report Dictated on Workstation: [id number] --- Final --- Dictated: 07/16/2020 9:53 am Dictating Physician: MD TAMAYO RISA Signed Date and Time: 07/16/2020 9:54 am Signed by: MD TAMAYO RISA Transcribed Date and Time: 07/16/2020 9:53 [place], [place], [facility] Incoming [facility] - 07/16/2020 9:55 AM EDT Patient Name: NICK HERNÁNDEZ ---Diagnostic Radiology--- Exam Date/Time 07/16/2020 09:49:13 EDT Exam CR Abdomen AP Ordering Physician LAYLA SIMMONS Accession Number [id number] CPT4 Codes 80995 () Reason For Exam kidney stones Report Abdomen: 07/16/2020. Clinical Information: Pain. Findings: A single supine view of the abdomen reveals a nonspecific nonobstructive bowel gas pattern. There is no evidence of organomegaly. There is a punctate calcification superimposed over the mid pole of the left kidney similar to the prior study 12/19/2019. Fecal residue obscures the upper pole of the left kidney. No abnormal calcifications are identified in the expected location of the right kidney or ureters on either side. There have been vertebral plasties of the L2-L4 levels. Impression: Nonobstructing left pelvicalyceal calculus. Consider constipation. Report Dictated on Workstation: [id number] --- Final --- Dictated: 07/16/2020 9:53 am Dictating Physician: MD TAMAYO RISA Signed Date and Time: 07/16/2020 9:54 am Signed by: MD TAMAYO RISA Transcribed Date and Time: 07/16/2020 9:53 [place], [place] Bilirubin, Directon 06-26-20 20 Bilirubin.direct [Mass/Vol] 0.0 mg/dL 0 - 0.3 mg/dL [place] CBC Auto Differentialon 06-17 Absolute Baso # 0.1 10*3/uL 0 - 0.2 10*3/uL [place] Absolute Neut # 4.3 10*3/uL 1.8 - 7 10*3/uL [place] Basophils/100 WBC (Bld) 1.0 % 0 - 2 % [place] Eosinophils (Bld) [#/Vol] 0.1 10*3/uL 0 - 0.5 10*3/uL [place] Eosinophils/100 WBC (Bld) 0.9 % Low 1 - 6 % [place] Erythrocyte distribution width (RBC) [Ratio] 14.2 % 11.5 - 14.5 % [place] Granulocytes/100 WBC (Bld) 70.4 % 40 - 80 % [place] Hematocrit (Bld) [Volume fraction] 40.6 % 40 - 52 % [place] Hemoglobin (Bld) [Mass/Vol] 13.9 g/dL 13 - 18 g/dL [place] Interpretation and review of laboratory results Abnormal [place] Lymphocytes (Bld) [#/Vol] 1.1 10*3/uL 1 - 4.3 10*3/uL [place] Lymphocytes/100 WBC (Bld) 18.7 % Low 20 - 40 % [place] MCH (RBC) [Entitic mass] 32.1 pg 26 - 34 pg [place] MCHC (RBC) [Mass/Vol] 34.4 % 32 - 36 % [place], [place] MCV (RBC) [Entitic vol] 93.3 fL 80 - 98 fL [place], [place] Monocytes (Bld) [#/Vol] 0.5 10*3/uL 0 - 0.8 10*3/uL [place] Monocytes/100 WBC (Bld) 9.0 % 2 - 10 % [place] Platelet mean volume (Bld) [Entitic vol] 8.3 fL 7.4 - 10.4 fL [place] Platelets (Bld) [#/Vol] 242 10*3/uL 140 - 440 10*3/uL [place] RBC (Bld) [#/Vol] 4.35 10*6/uL Low 4.4 - 5.9 10*6/uL [place] WBC (Bld) [#/Vol] 6.1 10*3/uL 3.6 - 10.7 10*3/uL [place] Test Performed by [facility], [address] , [place], [place] [address] [place], [place] Comprehensive Metabolic Pane amaya 06-26-2020 Albumin [Mass/Vol] 4.3 g/dL 3.5 - 5 g/dL [place] ALP [Catalytic activity/Vol] 84 U/L 38 - 126 U/L [place] ALT [Catalytic activity/Vol] 29 U/L 0 - 49 U/L [place] Comment on above: The ALT test is perf ormed by an updated assay method. Please note that the reference intervals have been changed and are now sex specific. Anion gap [Moles/Vol] 12 mmol/L [place], [place] AST [Catalytic activity/Vol] 30 U/L 15 - 46 U/L [place] Bilirubin Ql (U) 0.2 mg/dL 0.2 - 1.3 mg/dL [place] Calcium [Mass/Vol] 10.1 mg/dL 8.4 - 10. 4 mg/dL [place] Chloride [Moles/Vol] 105 mmol/L 98 - 10 7 mmol/L [place] CO2 [Moles/Vol] 24 mmol/L 22 - 30 mmol/L [place] Creatinine [Mass/Vol] 1.12 mg/dL 0.52 - 1.25 mg/dL [place] EGFR IF NonAfrican [place] 71.9 mL/min >60 [place] Comment on above: KDIGO guidelines pro vide the following GFR categories: Stage GFR(ml/min/1.73 m2) Terms G1 >=90 Normal or high G2 60-89 Mildly decreased* G3a 45-59 Mildly to moderately decreased G3b 30-44 Moderately to severely decreased G4 15-29 Severely decreased G5 <15 Kidney failure *Relative to young adult level. In the absence of evidence of kidney damage, neither GFR category G1 nor G2 fulfill the criteria for CKD. The CKD-EPI equation is validated in individuals 18 years of age and older. Currently the best equation for estimating glomerular filtration rate (GFR) from serum creatinine in children is the Bedside Muniz equation. It is less accurate in patients with extremes of muscle mass, restriction of dietary protein, ingestion of creatine, extra-renal metabolism of creatinine, or treatment with medications that affect renal tubular creatinine secretion. GFR/1.73 sq M predicted among blacks MDRD (S/P/Bld) [Vol rate/Area] 83.3 mL/min/{1.73_m2} >60 [place] Glucose [Mass/Vol] 116 mg/dL High 70 - 100 mg/dL [place] Interpretation and review of laboratory results Abnormal [place] Potassium [Moles/Vol] 4.7 mmol/L 3.5 - 5.1 mmol/L [place] Protein [Mass/Vol] 6.8 g/dL 6.3 - 8.2 g/dL [place] Sodium [Moles/Vol] 140 mmol/L 135 - 145 mmol/L [place] Urea nitrogen [Mass/Vol] 22 mg/dL High 7 - 20 mg/dL [place] Ferritinon 06-26-2020 Ferritin [Mass/Vol] 163 ng/mL 18 - 464 ng/mL [place] Test Performed by [facility], [address] , [address] Hemoglobin A1Con 06-26-2020 eAG 117 mg/dL [place] HbA1c (Bld) [Mass fraction] 5.7 % 4 - 6 % [place] Comment on above: --HgbA1C levels may not be accurate in patients who have renal disease, received recent blood transfusions, are anemic, or who have dyshemoglobinemia. Test Performed by [facility], [address] , [address] IgAon 06-26-2020 IgA [Mass/Vol] 77.4 mg/dL 70 - 400 mg/dL [place] IgGon 06-26-2020 IgG [Mass/Vol] 673.2 mg/dL Low 700 - 1600 mg/dL [place] IgMon 06-26-2020 IgM [Mass/Vol] 25.3 mg/dL Low 40 - 230 mg/dL [place] Iron and TIBCon 06-26-2020 Iron [Mass/Vol] 87 ug/dL 49 - 181 ug/dL [place] Sat 28 % 15 - 50 % [place] TIBC 307 ug/dL 261 - 497 ug/dL [place] Test Performed by [facility], [address] , [address] Magnesiumon 06-26-2020 Magnesium [Mass/Vol] 1.7 mg/dL 1.6 - 2 .3 mg/dL [place] Otheron 06-26-2020 Interpretation and review of laboratory results Abnormal [place] Test Performed by [facility], [address] [place], [address] Test Performed by [facility], [address] , [address] Phosphoruson 06-26-2020 Phosphate [Mass/Vol] 4.2 mg/dL 2.5 - 4 .5 mg/dL [place] Transferrinon 06-26-2020 Transferrin [Mass/Vol] 246 mg/dL 206 - 381 mg/dL [place] Test Performed by [facility], [address] [place], [address] Uric Acidon 06-26-2020 Urate [Mass/Vol] 7.2 mg/dL 2.5 - 8.5 mg/dL [place] Bilirubin, Directon 05-26-20 20 Bilirubin.direct [Mass/Vol] 0.0 mg/dL 0 - 0.3 mg/dL [place] CBC Auto Differentialon 05-17 Absolute Baso # 0.0 10*3/uL 0 - 0.2 10*3/uL [place] Absolute Neut # 3.5 10*3/uL 1.8 - 7 10*3/uL [place] Basophils/100 WBC (Bld) 0.8 % 0 - 2 % [place] Eosinophils (Bld) [#/Vol] 0.1 10*3/uL 0 - 0.5 10*3/uL [place] Eosinophils/100 WBC (Bld) 1.0 % 1 - 6 % [place] Erythrocyte distribution width (RBC) [Ratio] 14.3 % 11.5 - 14.5 % [place] Granulocytes/100 WBC (Bld) 63.9 % 40 - 80 % [place] Hematocrit (Bld) [Volume fraction] 39.4 % Low 40 - 52 % [place] Hemoglobin (Bld) [Mass/Vol] 13.3 g/dL 13 - 18 g/dL [place] Lymphocytes (Bld) [#/Vol] 1.2 10*3/uL 1 - 4.3 10*3/uL [place] Lymphocytes/100 WBC (Bld) 22.4 % 20 - 40 % [place] MCH (RBC) [Entitic mass] 32.1 pg 26 - 34 pg [place] MCHC (RBC) [Mass/Vol] 33.8 % 32 - 36 % [place] MCV (RBC) [Entitic vol] 95.0 fL 80 - 98 fL [place], [place] Monocytes (Bld) [#/Vol] 0.7 10*3/uL 0 - 0.8 10*3/uL [place] Monocytes/100 WBC (Bld) 11.9 % High 2 - 10 % [place] Platelet mean volume (Bld) [Entitic vol] 8.0 fL 7.4 - 10.4 fL [place] Platelets (Bld) [#/Vol] 201 10*3/uL 140 - 440 10*3/uL [place] RBC (Bld) [#/Vol] 4.15 10*6/uL Low 4.4 - 5.9 10*6/uL [place] WBC (Bld) [#/Vol] 5.5 10*3/uL 3.6 - 10.7 10*3/uL [place] Comprehensive Metabolic Pane amaya 05-26-2020 Albumin [Mass/Vol] 4.1 g/dL 3.5 - 5 g/dL [place] ALP [Catalytic activity/Vol] 73 U/L 38 - 126 U/L [place] ALT [Catalytic activity/Vol] 25 U/L 0 - 49 U/L [place] Comment on above: The ALT test is perf ormed by an updated assay method. Please note that the reference intervals have been changed and are now sex specific. Anion gap [Moles/Vol] 10 mmol/L [place] AST [Catalytic activity/Vol] 29 U/L 15 - 46 U/L [place] Bilirubin Ql (U) 0.3 mg/dL 0.2 - 1.3 mg/dL [place] Calcium [Mass/Vol] 9.8 mg/dL 8.4 - 10. 4 mg/dL [place] Chloride [Moles/Vol] 107 mmol/L 98 - 10 7 mmol/L [place] CO2 [Moles/Vol] 22 mmol/L 22 - 30 mmol/L [place] Creatinine [Mass/Vol] 0.9 mg/dL 0.52 - 1.25 mg/dL [place] EGFR IF NonAfrican [place] >90.0 >60 mL/min [place] Comment on above: KDIGO guidelines pro vide the following GFR categories: Stage GFR(ml/min/1.73 m2) Terms G1 >=90 Normal or high G2 60-89 Mildly decreased* G3a 45-59 Mildly to moderately decreased G3b 30-44 Moderately to severely decreased G4 15-29 Severely decreased G5 <15 Kidney failure *Relative to young adult level. In the absence of evidence of kidney damage, neither GFR category G1 nor G2 fulfill the criteria for CKD. The CKD-EPI equation is validated in individuals 18 years of age and older. Currently the best equation for estimating glomerular filtration rate (GFR) from serum creatinine in children is the Bedside Muniz equation. It is less accurate in patients with extremes of muscle mass, restriction of dietary protein, ingestion of creatine, extra-renal metabolism of creatinine, or treatment with medications that affect renal tubular creatinine secretion. GFR/1.73 sq M predicted among blacks MDRD (S/P/Bld) [Vol rate/Area] mL/min/{1.73_m2} >60 mL/min [place] Glucose [Mass/Vol] 112 mg/dL High 70 - 100 mg/dL [place] Potassium [Moles/Vol] 4.3 mmol/L 3.5 - 5.1 mmol/L [place] Protein [Mass/Vol] 6.4 g/dL 6.3 - 8.2 g/dL [place] Sodium [Moles/Vol] 139 mmol/L 135 - 145 mmol/L [place] Urea nitrogen [Mass/Vol] 14 mg/dL 7 - 20 mg/dL [place] Magnesiumon 05-26-2020 Magnesium [Mass/Vol] 1.4 mg/dL Low 1.6 - 2 .3 mg/dL [place] Otheron 05-26-2020 Interpretation and review of laboratory results Abnormal [place] Test Performed by [address] , [address] Phosphoruson 05-26-2020 Phosphate [Mass/Vol] 3.4 mg/dL 2.5 - 4 .5 mg/dL [place] Uric Acidon 05-26-2020 Urate [Mass/Vol] 6.5 mg/dL 2.5 - 8.5 mg/dL [place] Complete PFTon 05-20-2020 Name: NICK HERNÁNDEZ PatientID: [id number] Gender: Male Birthdate: 1960 Study Date: 05/20/2020 9:04:56 AM Age: 60 Race: White or Height: 71.0 in, 180.3 cm Weight: 200.0 lbs, 90.9 kg Smoke Status: Never Pack Years: Tbco Prod: Cigarettes Ordering Physician: [id number] Interpreting Physician: [id number] Imaging Science Professor: CATHERINE MORAN Testing Location: [facility] Diagnosis: Z94.2 S/P Lung transplant Spirometry Units Pred PreDrug Pre%Pred Post Post%Pred %Change FVC L,btps 5.00 4.18 83. FEV1 L,btps 3.80 2.44 64. FEV1/FVC (%) % 76. 58. 77. MYI80-05% L/s 3.17 0.88 28. FEFmax L/s 9.59 6.13 64. MVV in,btps 129.78 81.50 63. Lung Volumes (Body Box) Units Pred PreDrug Pre%Pred TLC L,btps 7.41 VC L,btps 5.00 IC L,btps 3.76 FRC L,btps 3.65 ERV L,btps 1.24 RV L,btps 2.41 RV/TLC (%) % 33. VTG L,btps RAW H2O/L/s 1.22 SGaw cmH2O/L 0.22 Diffusion (DLCO) Units Pred PreDrug Pre%Pred DLCO ml/min/mmHg,stpd 32.55 21.25 65. DLCOHb ml/min/mmHg,stpd 32.55 21.25 65. VAsb L,btps 7.24 5.00 69. D/VAsb ml/min/mmHg/L,stpd 4.50 4.25 95. D/VAsbHb ml/min/mmHg/L,stpd 4.50 4.25 95. VInsp L 3.90 Hgb g/dl 14.60 COHb % Nitrogen Washout Units Pred PreDrug Pre%Pred TLC L,btps 7.41 4.70 63. VC L,btps 5.00 3.96 79. FRC L,btps 3.65 1.72 47. IC L,btps 3.76 2.98 79. ERV L,btps 1.24 0.98 79. RV L,btps 2.41 0.74 31. RV/TLC (%) % 33. 16. 48. Lung Mechanics Units Pred PreDrug Pre%Pred PImax /MIP cmH2O -82.26 PEmax /MEP cmH2O 127.22 [facility] [employer] PRICING CONSULTANT NOTES Calibration check passed with acceptable system performance. The patient performed all pre-test requirements. Spirometry best effort, met acceptability and repeatability guidelines. All DLCO quality indicators for acceptability and repeatability met. Patient demonstrated good effort and understanding. Hb unknown. 14.6 used for corrected DLCO. Not all quality indicators met for acceptability during N2 Washout testing. Effort with largest TLC selected. 09790- DLCO 31023- FRC GAS 88089- SLIM Tests to perform: [id number] - FULL PFT STUDY WITHOUT BRONCHODILATOR PHYSICIAN INTERPRETATION Moderate small airway obstuction indicted by reduced FEV1, FEV1/FVC, mid range flows, and or FVC/SVC. The diffusion capacity of the patient is normal, with and without adjustment for alveolar volume. An mild degree of air trapping was demonstrated with the Nitrogen Washout test, which corroborates the obstructive pattern observed with spirometry. TLC, RV, and the RV/TLC levels were slightly elevated. A moderate restrictive pattern is observed with the Nitrogen Washout Test. TLC and other lung volumes are significantly ruduced. Other diagnostic parameters, such as diffusion capacity, need to be considered. Forced expiratory spirogram reveals moderate large airways obstructive lung disease. Spirograms are of good quality and do not plateau. The respiratory flow volume loop reveals decreased flows at all volumes consistent with large and small airways obstruction. Moderate large airways obstructive lung disease. Diffusion capacity for single breath carbon monoxide is normal. Lung volumes were measured by determining the Functional Residual Capacity (FRC) and determining the lung divisions by Vital Capacity (VC) maneuver. The Total Lung Capacity (TLC) is reduced suggesting moderately severe restriction. The Residual Volume (RV) and RV/TLC ratio are normal. [place], [facility] Incoming Cardiology Results From [employer] - 05/20/2020 5:46 PM EDT Name: NICK HERNÁNDEZ PatientID: [id number] Gender: Male Birthdate: 1960 Study Date: 05/20/2020 9:04:56 AM Age: 60 Race: White or Height: 71.0 in, 180.3 cm Weight: 200.0 lbs, 90.9 kg Smoke Status: Never Pack Years: Tbco Prod: Cigarettes Ordering Physician: [id number] Interpreting Physician: [id number] Imaging Science Professor: CATHERINE MORAN Testing Location: [facility] Diagnosis: Z94.2 S/P Lung transplant Spirometry Units Pred PreDrug Pre%Pred Post Post%Pred %Change FVC L,btps 5.00 4.18 83. FEV1 L,btps 3.80 2.44 64. FEV1/FVC (%) % 76. 58. 77. ZSC33-04% L/s 3.17 0.88 28. FEFmax L/s 9.59 6.13 64. MVV in,btps 129.78 81.50 63. Lung Volumes (Body Box) Units Pred PreDrug Pre%Pred TLC L,btps 7.41 VC L,btps 5.00 IC L,btps 3.76 FRC L,btps 3.65 ERV L,btps 1.24 RV L,btps 2.41 RV/TLC (%) % 33. VTG L,btps RAW H2O/L/s 1.22 SGaw cmH2O/L 0.22 Diffusion (DLCO) Units Pred PreDrug Pre%Pred DLCO ml/min/mmHg,stpd 32.55 21.25 65. DLCOHb ml/min/mmHg,stpd 32.55 21.25 65. VAsb L,btps 7.24 5.00 69. D/VAsb ml/min/mmHg/L,stpd 4.50 4.25 95. D/VAsbHb ml/min/mmHg/L,stpd 4.50 4.25 95. VInsp L 3.90 Hgb g/dl 14.60 COHb % Nitrogen Washout Units Pred PreDrug Pre%Pred TLC L,btps 7.41 4.70 63. VC L,btps 5.00 3.96 79. FRC L,btps 3.65 1.72 47. IC L,btps 3.76 2.98 79. ERV L,btps 1.24 0.98 79. RV L,btps 2.41 0.74 31. RV/TLC (%) % 33. 16. 48. Lung Mechanics Units Pred PreDrug Pre%Pred PImax /MIP cmH2O -82.26 PEmax /MEP cmH2O 127.22 [facility] PRICING CONSULTANT NOTES Calibration check passed with acceptable system performance. The patient performed all pre-test requirements. Spirometry best effort, met acceptability and repeatability guidelines. All DLCO quality indicators for acceptability and repeatability met. Patient demonstrated good effort and understanding. Hb unknown. 14.6 used for corrected DLCO. Not all quality indicators met for acceptability during N2 Washout testing. Effort with largest TLC selected. 41404- DLCO 88179- FRC GAS 73257- SLIM Tests to perform: [id number] - FULL PFT STUDY WITHOUT BRONCHODILATOR PHYSICIAN INTERPRETATION Moderate small airway obstuction indicted by reduced FEV1, FEV1/FVC, mid range flows, and or FVC/SVC. The diffusion capacity of the patient is normal, with and without adjustment for alveolar volume. An mild degree of air trapping was demonstrated with the Nitrogen Washout test, which corroborates the obstructive pattern observed with spirometry. TLC, RV, and the RV/TLC levels were slightly elevated. A moderate restrictive pattern is observed with the Nitrogen Washout Test. TLC and other lung volumes are significantly ruduced. Other diagnostic parameters, such as diffusion capacity, need to be considered. Forced expiratory spirogram reveals moderate large airways obstructive lung disease. Spirograms are of good quality and do not plateau. The respiratory flow volume loop reveals decreased flows at all volumes consistent with large and small airways obstruction. Moderate large airways obstructive lung disease. Diffusion capacity for single breath carbon monoxide is normal. Lung volumes were measured by determining the Functional Residual Capacity (FRC) and determining the lung divisions by Vital Capacity (VC) maneuver. The Total Lung Capacity (TLC) is reduced suggesting moderately severe restriction. The Residual Volume (RV) and RV/TLC ratio are normal. [place] Bilirubin, Directon 05-02- 20 Bilirubin.direct [Mass/Vol] 0.0 mg/dL 0 - 0.3 mg/dL [place] CBC Auto Differentialon 04-16 Absolute Baso # 0.0 10*3/uL 0 - 0.2 10*3/uL [place] Absolute Neut # 3.5 10*3/uL 1.8 - 7 10*3/uL [place] Basophils/100 WBC (Bld) 0.8 % 0 - 2 % [place] Eosinophils (Bld) [#/Vol] 0.1 10*3/uL 0 - 0.5 10*3/uL [place] Eosinophils/100 WBC (Bld) 1.2 % 1 - 6 % [place] Erythrocyte distribution width (RBC) [Ratio] 14.3 % 11.5 - 14.5 % [place] Granulocytes/100 WBC (Bld) 67.5 % 40 - 80 % [place] Hematocrit (Bld) [Volume fraction] 36.6 % Low 40 - 52 % [place] Hemoglobin (Bld) [Mass/Vol] 12.6 g/dL Low 13 - 18 g/dL [place] Interpretation and review of laboratory results Abnormal [place] Lymphocytes (Bld) [#/Vol] 1.0 10*3/uL 1 - 4.3 10*3/uL [place] Lymphocytes/100 WBC (Bld) 19.7 % Low 20 - 40 % [place] MCH (RBC) [Entitic mass] 33.0 pg 26 - 34 pg [place] MCHC (RBC) [Mass/Vol] 34.4 % 32 - 36 % [place] MCV (RBC) [Entitic vol] 95.9 fL 80 - 98 fL [place], [place] Monocytes (Bld) [#/Vol] 0.6 10*3/uL 0 - 0.8 10*3/uL [place] Monocytes/100 WBC (Bld) 10.8 % High 2 - 10 % [place] Platelet mean volume (Bld) [Entitic vol] 8.5 fL 7.4 - 10.4 fL [place] Platelets (Bld) [#/Vol] 220 10*3/uL 140 - 440 10*3/uL [place] RBC (Bld) [#/Vol] 3.82 10*6/uL Low 4.4 - 5.9 10*6/uL [place] WBC (Bld) [#/Vol] 5.1 10*3/uL 3.6 - 10.7 10*3/uL [place] Test Performed by [facility], [address] [place], [place] [address] , [place], [place] [id number] [place] [address] Comprehensive Metabolic Pane amaya 05-02-2020 Albumin [Mass/Vol] 4.0 g/dL 3.5 - 5 g/dL [place] [place] ALP [Catalytic activity/Vol] 77 U/L 38 - 126 U/L [place] ALT [Catalytic activity/Vol] 27 U/L 0 - 49 U/L [place] Comment on above: The ALT test is perf ormed by an updated assay method. Please note that the reference intervals have been changed and are now sex specific. Anion gap [Moles/Vol] 10 mmol/L [place] AST [Catalytic activity/Vol] 29 U/L 15 - 46 U/L [place] Bilirubin Ql (U) 0.3 mg/dL 0.2 - 1.3 mg/dL [place] Calcium [Mass/Vol] 9.8 mg/dL 8.4 - 10. 4 mg/dL [place] Chloride [Moles/Vol] 107 mmol/L 98 - 10 7 mmol/L [place] CO2 [Moles/Vol] 25 mmol/L 22 - 30 mmol/L [place] Creatinine [Mass/Vol] 1.07 mg/dL 0.52 - 1.25 mg/dL [place] EGFR IF NonAfrican [place] 76.1 mL/min >60 [place] Comment on above: KDIGO guidelines pro vide the following GFR categories: Stage GFR(ml/min/1.73 m2) Terms G1 >=90 Normal or high G2 60-89 Mildly decreased* G3a 45-59 Mildly to moderately decreased G3b 30-44 Moderately to severely decreased G4 15-29 Severely decreased G5 <15 Kidney failure *Relative to young adult level. In the absence of evidence of kidney damage, neither GFR category G1 nor G2 fulfill the criteria for CKD. The CKD-EPI equation is validated in individuals 18 years of age and older. Currently the best equation for estimating glomerular filtration rate (GFR) from serum creatinine in children is the Bedside Muniz equation. It is less accurate in patients with extremes of muscle mass, restriction of dietary protein, ingestion of creatine, extra-renal metabolism of creatinine, or treatment with medications that affect renal tubular creatinine secretion. GFR/1.73 sq M predicted among blacks MDRD (S/P/Bld) [Vol rate/Area] 88.1 mL/min/{1.73_m2} >60 [place] Glucose [Mass/Vol] 120 mg/dL High 70 - 100 mg/dL [place] Interpretation and review of laboratory results Abnormal [place] Potassium [Moles/Vol] 4.1 mmol/L 3.5 - 5.1 mmol/L [place] Protein [Mass/Vol] 6.3 g/dL 6.3 - 8.2 g/dL [place] Sodium [Moles/Vol] 142 mmol/L 135 - 145 mmol/L [place] Urea nitrogen [Mass/Vol] 26 mg/dL High 7 - 20 mg/dL [place] Magnesiumon 05-02-2020 Magnesium [Mass/Vol] 1.8 mg/dL 1.6 - 2 .3 mg/dL [place] Otheron 05-02-2020 Test Performed by [facility], [facility] [address] , [place], [place] [id number] [place] [address] Phosphoruson 05-02-2020 Phosphate [Mass/Vol] 3.4 mg/dL 2.5 - 4 .5 mg/dL [place] Uric Acidon 05-02-2020 Urate [Mass/Vol] 7.5 mg/dL 2.5 - 8.5 mg/dL [place] Mirella 03-26-2020 ALT [Catalytic activity/Vol] 17 U/L 0 - 49 U/L [place] Comment on above: The ALT test is perf ormed by an updated assay method. Please note that the reference intervals have been changed and are now sex specific. Alea 03-26-2020 AST [Catalytic activity/Vol] 22 U/L 15 - 46 U/L [place] Alkaline Phosphataseon 03-26 ALP [Catalytic activity/Vol] 125 U/L 38 - 126 U/L [place] Bilirubin, Directon 03-26-20 20 Bilirubin.direct [Mass/Vol] 0.0 mg/dL 0 - 0.3 mg/dL [place] Bilirubin, Totalon 0 Bilirubin Ql (U) 0.2 mg/dL 0.2 - 1.3 mg/dL [place] CBC Auto Differentialon 03-17 Absolute Baso # 0.0 10*3/uL 0 - 0.2 10*3/uL [place] Absolute Neut # 4.2 10*3/uL 1.8 - 7 10*3/uL [place] Basophils/100 WBC (Bld) 0.7 % 0 - 2 % [place] Eosinophils (Bld) [#/Vol] 0.1 10*3/uL 0 - 0.5 10*3/uL [place] Eosinophils/100 WBC (Bld) 0.8 % Low 1 - 6 % [place] Erythrocyte distribution width (RBC) [Ratio] 13.6 % 11.5 - 14.5 % [place] Granulocytes/100 WBC (Bld) 69.3 % 40 - 80 % [place] Hematocrit (Bld) [Volume fraction] 34.7 % Low 40 - 52 % [place] Hemoglobin (Bld) [Mass/Vol] 11.8 g/dL Low 13 - 18 g/dL [place] Lymphocytes (Bld) [#/Vol] 1.2 10*3/uL 1 - 4.3 10*3/uL [place] Lymphocytes/100 WBC (Bld) 19.5 % Low 20 - 40 % [place] MCH (RBC) [Entitic mass] 33.0 pg 26 - 34 pg [place] MCHC (RBC) [Mass/Vol] 34.1 % 32 - 36 % [place] MCV (RBC) [Entitic vol] 96.7 fL 80 - 98 fL [place] Monocytes (Bld) [#/Vol] 0.6 10*3/uL 0 - 0.8 10*3/uL [place] Monocytes/100 WBC (Bld) 9.7 % 2 - 10 % [place] Platelet mean volume (Bld) [Entitic vol] 7.6 fL 7.4 - 10.4 fL [place] Platelets (Bld) [#/Vol] 419 10*3/uL 140 - 440 10*3/uL [place] RBC (Bld) [#/Vol] 3.59 10*6/uL Low 4.4 - 5.9 10*6/uL [place] WBC (Bld) [#/Vol] 6.0 10*3/uL 3.6 - 10.7 10*3/uL [place] Ferritinon 06-10-2020 Ferritin [Mass/Vol] 423 ng/mL 18 - 464 ng/mL [place] Test Performed by [facility], [address] , [address] Gamma GTon 03-26-2020 Gamma glutamyl transferase [Catalytic activity/Vol] 53 U/L 12 - 58 U/L [place] Test Performed by [facility], [address], [address] Hemoglobin A1Con 03-26-2020 eAG 117 mg/dL [place] HbA1c (Bld) [Mass fraction] 5.7 % 4 - 5.7 % [place] Comment on above: --HgbA1C levels may not be accurate in patients who have renal disease, received recent blood transfusions, are anemic, or who have dyshemoglobinemia. Test Performed by [facility], [address] , [address] IgAon 03-26-2020 IgA [Mass/Vol] 82.4 mg/dL 70 - 400 mg/dL [place] IgGon 03-26-2020 IgG [Mass/Vol] 627.3 mg/dL Low 700 - 1600 mg/dL [place] IgMon 03-26-2020 IgM [Mass/Vol] 30.1 mg/dL Low 40 - 230 mg/dL [place] Iron and TIBCon 03-26-2020 Iron [Mass/Vol] 67 ug/dL 49 - 181 ug/dL [place] Sat 24 % 15 - 50 % [place] TIBC 275 ug/dL 261 - 497 ug/dL [place] Test Performed by [facility], [address] , [address] Magnesiumon 03-26-2020 Magnesium [Mass/Vol] 1.8 mg/dL 1.6 - 2 .3 mg/dL [place] Otheron 03-26-2020 Interpretation and review of laboratory results Abnormal [place] Test Performed by [facility], [address], [place], [place] [address] [place] Interpretation and review of laboratory results Abnormal [place] Test Performed by [facility], [address] , [place], [place] [address] [place] Renal Function Panelon 03-26 Albumin [Mass/Vol] 4.1 g/dL 3.5 - 5 g/dL [place] Anion gap [Moles/Vol] 9 mmol/L [place] Calcium [Mass/Vol] 10.0 mg/dL 8.4 - 10. 4 mg/dL [place] Chloride [Moles/Vol] 104 mmol/L 98 - 10 7 mmol/L [place] CO2 [Moles/Vol] 26 mmol/L 22 - 30 mmol/L [place] Creatinine [Mass/Vol] 1.1 mg/dL 0.52 - 1.25 mg/dL [place] EGFR IF NonAfrican [place] 73.6 mL/min >60 [place] Comment on above: KDIGO guidelines pro vide the following GFR categories: Stage GFR(ml/min/1.73 m2) Terms G1 >=90 Normal or high G2 60-89 Mildly decreased* G3a 45-59 Mildly to moderately decreased G3b 30-44 Moderately to severely decreased G4 15-29 Severely decreased G5 <15 Kidney failure *Relative to young adult level. In the absence of evidence of kidney damage, neither GFR category G1 nor G2 fulfill the criteria for CKD. The CKD-EPI equation is validated in individuals 18 years of age and older. Currently the best equation for estimating glomerular filtration rate (GFR) from serum creatinine in children is the Bedside Muniz equation. It is less accurate in patients with extremes of muscle mass, restriction of dietary protein, ingestion of creatine, extra-renal metabolism of creatinine, or treatment with medications that affect renal tubular creatinine secretion. GFR/1.73 sq M predicted among blacks MDRD (S/P/Bld) [Vol rate/Area] 85.3 mL/min/{1.73_m2} >60 [place] Glucose [Mass/Vol] 115 mg/dL High 70 - 100 mg/dL [place] Phosphate [Mass/Vol] 3.4 mg/dL 2.5 - 4 .5 mg/dL [place] Potassium [Moles/Vol] 4.9 mmol/L 3.5 - 5.1 mmol/L [place] Sodium [Moles/Vol] 139 mmol/L 135 - 145 mmol/L [place] Urea nitrogen [Mass/Vol] 23 mg/dL High 7 - 20 mg/dL [place] Transferrinon 03-26-2020 Transferrin [Mass/Vol] 214 mg/dL 206 - 381 mg/dL [place] Test Performed by [facility], [address], [place], [place] [address] [place] Uric Acidon 03-26-2020 Urate [Mass/Vol] 6.3 mg/dL 2.5 - 8.5 mg/dL [place] Bilirubin, Directon 02-18-20 20 Bilirubin.direct [Mass/Vol] 0.0 mg/dL 0 - 0.3 mg/dL [place] CBC Auto Differentialon Absolute Baso # 0.0 10*3/uL 0 - 0.2 10*3/uL [place] Absolute Neut # 5.3 10*3/uL 1.8 - 7 10*3/uL [place] Basophils/100 WBC (Bld) 0.4 % 0 - 2 % [place] Eosinophils (Bld) [#/Vol] 0.1 10*3/uL 0 - 0.5 10*3/uL [place] Eosinophils/100 WBC (Bld) 0.9 % Low 1 - 6 % [place] Erythrocyte distribution width (RBC) [Ratio] 13.1 % 11.5 - 14.5 % [place] Granulocytes/100 WBC (Bld) 76.2 % 40 - 80 % [place] Hematocrit (Bld) [Volume fraction] 39.7 % Low 40 - 52 % [place] Hemoglobin (Bld) [Mass/Vol] 13.3 g/dL 13 - 18 g/dL [place] Interpretation and review of laboratory results Abnormal [place] Lymphocytes (Bld) [#/Vol] 1.0 10*3/uL 1 - 4.3 10*3/uL [place] Lymphocytes/100 WBC (Bld) 14.0 % Low 20 - 40 % [place] MCH (RBC) [Entitic mass] 34.0 pg 26 - 34 pg [place] MCHC (RBC) [Mass/Vol] 33.4 % 32 - 36 % [place] MCV (RBC) [Entitic vol] 101.7 fL High 80 - 98 fL [place] Monocytes (Bld) [#/Vol] 0.6 10*3/uL 0 - 0.8 10*3/uL [place] Monocytes/100 WBC (Bld) 8.5 % 2 - 10 % [place] Platelet mean volume (Bld) [Entitic vol] 7.7 fL 7.4 - 10.4 fL [place] Platelets (Bld) [#/Vol] 216 10*3/uL 140 - 440 10*3/uL [place] RBC (Bld) [#/Vol] 3.91 10*6/uL Low 4.4 - 5.9 10*6/uL [place] WBC (Bld) [#/Vol] 7.0 10*3/uL 3.6 - 10.7 10*3/uL [place] Test Performed by [facility], [address] [place] [address] [place] , [address] Comprehensive Metabolic Pane amaya 02-18-2020 Albumin [Mass/Vol] 4.2 g/dL 3.5 - 5 g/dL [place] ALP [Catalytic activity/Vol] 74 U/L 38 - 126 U/L [place] ALT [Catalytic activity/Vol] 41 U/L 0 - 49 U/L [place] Comment on above: The ALT test is perf ormed by an updated assay method. Please note that the reference intervals have been changed and are now sex specific. Anion gap [Moles/Vol] 12 mmol/L [place] AST [Catalytic activity/Vol] 35 U/L 15 - 46 U/L [place] Bilirubin Ql (U) 0.6 mg/dL 0.2 - 1.3 mg/dL [place] Calcium [Mass/Vol] 10.2 mg/dL 8.4 - 10. 4 mg/dL [place] Chloride [Moles/Vol] 104 mmol/L 98 - 10 7 mmol/L [place] CO2 [Moles/Vol] 22 mmol/L 22 - 30 mmol/L [place] Creatinine [Mass/Vol] 1.38 mg/dL High 0.52 - 1.25 mg/dL [place] EGFR IF NonAfrican [place] 52.9 mL/min >60 [place] Comment on above: Source- MDRD equatio n with creatinine calibration to IDMS(NKDEP) eGFR not recommended for drug dose adjustment GFR/1.73 sq M predicted among blacks MDRD (S/P/Bld) [Vol rate/Area] mL/min/{1.73_m2} >60 mL/min [place] Glucose [Mass/Vol] 113 mg/dL High 70 - 100 mg/dL [place] Potassium [Moles/Vol] 4.7 mmol/L 3.5 - 5.1 mmol/L [place] Protein [Mass/Vol] 6.6 g/dL 6.3 - 8.2 g/dL [place] Sodium [Moles/Vol] 138 mmol/L 135 - 145 mmol/L [place] Urea nitrogen [Mass/Vol] 31 mg/dL High 7 - 20 mg/dL [place] Magnesiumon 02-18-2020 Magnesium [Mass/Vol] 1.7 mg/dL 1.6 - 2 .3 mg/dL [place] Otheron 02-18-2020 Interpretation and review of laboratory results Abnormal [place] Test Performed by [facility], [facility] [address] , [place], [place] [id number] [place] [address] Phosphoruson 02-18-2020 Phosphate [Mass/Vol] 4.7 mg/dL High 2.5 - 4 .5 mg/dL [place] Uric Acidon 02-18-2020 Urate [Mass/Vol] 7.1 mg/dL 2.5 - 8.5 mg/dL [place] Basic Metabolic Panelon 01-16 Anion gap [Moles/Vol] 8 mmol/L [place] Calcium [Mass/Vol] 10.4 mg/dL 8.4 - 10. 4 mg/dL [place] Chloride [Moles/Vol] 108 mmol/L High 98 - 10 7 mmol/L [place] CO2 [Moles/Vol] 25 mmol/L 22 - 30 mmol/L [place] Creatinine [Mass/Vol] 1.05 mg/dL 0.52 - 1.25 mg/dL [place] EGFR IF NonAfrican [place] >60.0 >60 mL/min [place] Comment on above: Source- MDRD equatio n with creatinine calibration to IDMS(NKDEP) eGFR not recommended for drug dose adjustment GFR/1.73 sq M predicted among blacks MDRD (S/P/Bld) [Vol rate/Area] mL/min/{1.73_m2} >60 mL/min [place] Glucose [Mass/Vol] 109 mg/dL High 70 - 100 mg/dL [place] Potassium [Moles/Vol] 4.4 mmol/L 3.5 - 5.1 mmol/L [place] Sodium [Moles/Vol] 142 mmol/L 135 - 145 mmol/L [place] Urea nitrogen [Mass/Vol] 17 mg/dL 7 - 20 mg/dL [place] CBC Auto Differentialon 01-16 Absolute Baso # 0.0 10*3/uL 0 - 0.2 10*3/uL [place] Absolute Neut # 3.8 10*3/uL 1.8 - 7 10*3/uL [place] Basophils/100 WBC (Bld) 0.7 % 0 - 2 % [place] Eosinophils (Bld) [#/Vol] 0.1 10*3/uL 0 - 0.5 10*3/uL [place] Eosinophils/100 WBC (Bld) 1.1 % 1 - 6 % [place] Erythrocyte distribution width (RBC) [Ratio] 13.3 % 11.5 - 14.5 % [place] Granulocytes/100 WBC (Bld) 65.0 % 40 - 80 % [place] Hematocrit (Bld) [Volume fraction] 40.2 % 40 - 52 % [place] Hemoglobin (Bld) [Mass/Vol] 13.8 g/dL 13 - 18 g/dL [place] Interpretation and review of laboratory results Abnormal [place] Lymphocytes (Bld) [#/Vol] 1.4 10*3/uL 1 - 4.3 10*3/uL [place] Lymphocytes/100 WBC (Bld) 23.6 % 20 - 40 % [place] MCH (RBC) [Entitic mass] 35.4 pg High 26 - 34 pg [place] MCHC (RBC) [Mass/Vol] 34.4 % 32 - 36 % [place] MCV (RBC) [Entitic vol] 102.9 fL High 80 - 98 fL [place] Monocytes (Bld) [#/Vol] 0.6 10*3/uL 0 - 0.8 10*3/uL [place] Monocytes/100 WBC (Bld) 9.6 % 2 - 10 % [place] Platelet mean volume (Bld) [Entitic vol] 7.9 fL 7.4 - 10.4 fL [place] Platelets (Bld) [#/Vol] 225 10*3/uL 140 - 440 10*3/uL [place] RBC (Bld) [#/Vol] 3.91 10*6/uL Low 4.4 - 5.9 10*6/uL [place] WBC (Bld) [#/Vol] 5.9 10*3/uL 3.6 - 10.7 10*3/uL [place] Test Performed by [facility], [address] , [address] Magnesiumon 02-11-2020 Magnesium [Mass/Vol] 1.5 mg/dL Low 1.6 - 2 .3 mg/dL [place] Otheron 02-11-2020 Interpretation and review of laboratory results Abnormal [place] Test Performed by [facility], [address] , [address] Phosphoruson 02-11-2020 Phosphate [Mass/Vol] 4.0 mg/dL 2.5 - 4 .5 mg/dL [place] Basic Metabolic Panelon 01-16 Anion gap [Moles/Vol] 9 mmol/L [place] Comment on above: Test Performed by [facility], [address] , [place] [address] Calcium [Mass/Vol] 10.3 mg/dL 8.4 - 10. 4 mg/dL [place] Comment on above: Test Performed by [facility], [address] , [place] [address] Chloride [Moles/Vol] 105 mmol/L 98 - 10 7 mmol/L [place] Comment on above: Test Performed by [facility], [address] , [place] [address] CO2 [Moles/Vol] 25 mmol/L 22 - 30 mmol/L [place] Comment on above: Test Performed by [facility], [address] , [place] [address] Creatinine [Mass/Vol] 1.26 mg/dL High 0.52 - 1.25 mg/dL [place] Comment on above: Test Performed by [facility], [address] , [place] [address] EGFR IF NonAfrican [place]err[place]ian 58.8 mL/min >60 [place] Comment on above: Test Performed by [facility], [address] , [place] [address] Source- MDRD equation with creatinine calibration to IDMS(NKDEP) eGFR not recommended for drug dose adjustment GFR/1.73 sq M predicted among blacks MDRD (S/P/Bld) [Vol rate/Area] mL/min/{1.73_m2} >60 mL/min [place] Comment on above: Test Performed by [facility], [address] , [place] [address] Glucose [Mass/Vol] 118 mg/dL High 70 - 100 mg/dL [place] Comment on above: Test Performed by [facility], [address] , [place] [address] Interpretation and review of laboratory results Abnormal [place] Potassium [Moles/Vol] 5.1 mmol/L 3.5 - 5.1 mmol/L [place] Comment on above: Test Performed by [facility], [address] , [place] [address] Sodium [Moles/Vol] 140 mmol/L 135 - 145 mmol/L [place] Urea nitrogen [Mass/Vol] 24 mg/dL High 7 - 20 mg/dL [place] Comment on above: Test Performed by [facility], [address] , [place] [address] CBC Auto Differentialon 04-2 0-2020 Absolute Baso # 0.0 10*3/uL 0 - 0.2 10*3/uL [place] Comment on above: Test Performed by [facility], [address] , [place] [address] Absolute Neut # 4.7 10*3/uL 1.8 - 7 10*3/uL [place] Comment on above: Test Performed by [facility], [address] , [place] [address] Basophils/100 WBC (Bld) 0.3 % 0 - 2 % [place] Comment on above: Test Performed by [facility], [address] , [place] [address] Eosinophils (Bld) [#/Vol] 0.1 10*3/uL 0 - 0.5 10*3/uL [place] Comment on above: Test Performed by [facility], [address] , [place] [address] Eosinophils/100 WBC (Bld) 1.1 % 1 - 6 % [place] Comment on above: Test Performed by [facility], [address] , [place], [place] [address] Erythrocyte distribution width (RBC) [Ratio] 13.2 % 11.5 - 14.5 % [place] Comment on above: Test Performed by [facility], [address] , [place], [place] [address] Granulocytes/100 WBC (Bld) 71.3 % 40 - 80 % [place] Comment on above: Test Performed by [facility], [address] , [place], [place] [address] Hematocrit (Bld) [Volume fraction] 40.1 % 40 - 52 % [place] Comment on above: Test Performed by [facility], [address] , [place], [place] [address] Hemoglobin (Bld) [Mass/Vol] 13.8 g/dL 13 - 18 g/dL [place] Comment on above: Test Performed by [facility], [address] , [place], [place] [address] Interpretation and review of laboratory results Abnormal [place] Lymphocytes (Bld) [#/Vol] 1.2 10*3/uL 1 - 4.3 10*3/uL [place] Comment on above: Test Performed by [facility], [address] , [place], [place] [address] Lymphocytes/100 WBC (Bld) 17.5 % Low 20 - 40 % [place] Comment on above: Test Performed by [facility], [address] , [place], [place] [address] MCH (RBC) [Entitic mass] 35.7 pg High 26 - 34 pg [place] Comment on above: Test Performed by [facility], [address] , [place], [place] [address] MCHC (RBC) [Mass/Vol] 34.5 % 32 - 36 % [place] Comment on above: Test Performed by [facility], [address] , [place] [id number] MCV (RBC) [Entitic vol] 103.6 fL High 80 - 98 fL [place] Comment on above: Test Performed by [facility], [address] , [place], [place] [address] Monocytes (Bld) [#/Vol] 0.7 10*3/uL 0 - 0.8 10*3/uL [place] Comment on above: Test Performed by [facility], [address] , [place], [place] [address] Monocytes/100 WBC (Bld) 9.8 % 2 - 10 % [place] Comment on above: Test Performed by [facility], [address] , [place], [place] [address] Platelet mean volume (Bld) [Entitic vol] 8.0 fL 7.4 - 10.4 fL [place] Comment on above: Test Performed by [facility], [address] , [place], [place] [address] Platelets (Bld) [#/Vol] 217 10*3/uL 140 - 440 10*3/uL [place] Comment on above: Test Performed by [facility], [address] , [place], [place] [address] RBC (Bld) [#/Vol] 3.87 10*6/uL Low 4.4 - 5.9 10*6/uL [place] Comment on above: Test Performed by [facility], [address] , [place], [place] [address] WBC (Bld) [#/Vol] 6.7 10*3/uL 3.6 - 10.7 10*3/uL [place] Test Performed by [facility], [address] , [place], [place] [address] [place] Magnesiumon 02-04-2020 Magnesium [Mass/Vol] 1.7 mg/dL 1.6 - 2 .3 mg/dL [place] Otheron 02-04-2020 Test Performed by [facility], [address] , [place], [place] [id number] [place] [address] Phosphoruson 02-04-2020 Phosphate [Mass/Vol] 4.0 mg/dL 2.5 - 4 .5 mg/dL [place] Basic Metabolic Panelon 01-15 Anion gap [Moles/Vol] 8 mmol/L [place] Comment on above: Test Performed by [facility], [address] , [place] [address] Calcium [Mass/Vol] 10.5 mg/dL High 8.4 - 10. 4 mg/dL [place] Comment on above: Test Performed by [facility], [address] , [place] [address] Chloride [Moles/Vol] 106 mmol/L 98 - 10 7 mmol/L [place] Comment on above: Test Performed by [facility], [address] , [place] [address] CO2 [Moles/Vol] 24 mmol/L 22 - 30 mmol/L [place] Comment on above: Test Performed by [facility], [address] , [place] [address] Creatinine [Mass/Vol] 1.25 mg/dL 0.52 - 1.25 mg/dL [place] Comment on above: Test Performed by [facility], [address] , [place] [address] EGFR IF NonAfrican Montserratian 59.4 mL/min >60 [place] Comment on above: Test Performed by [facility], [address] , [place] [address] Source- MDRD equation with creatinine calibration to IDMS(NKDEP) eGFR not recommended for drug dose adjustment GFR/1.73 sq M predicted among blacks MDRD (S/P/Bld) [Vol rate/Area] mL/min/{1.73_m2} >60 mL/min [place] Comment on above: Test Performed by [facility], [address] , [place] [address] Glucose [Mass/Vol] 110 mg/dL High 70 - 100 mg/dL [place] Comment on above: Test Performed by [facility], [address] , [place] [address] Interpretation and review of laboratory results Abnormal [place] Potassium [Moles/Vol] 4.6 mmol/L 3.5 - 5.1 mmol/L [place] Comment on above: Test Performed by [facility], [address] , [place], [place] [address] Sodium [Moles/Vol] 138 mmol/L 135 - 145 mmol/L [place] Urea nitrogen [Mass/Vol] 28 mg/dL High 7 - 20 mg/dL [place] Comment on above: Test Performed by [facility], [address] , [place], [place] [address] CBC Auto Differentialon - Absolute Baso # 0.0 10*3/uL 0 - 0.2 10*3/uL [place] Comment on above: Test Performed by [facility], [address] , [place], [place] [address] Absolute Neut # 4.2 10*3/uL 1.8 - 7 10*3/uL [place] Comment on above: Test Performed by [facility], [address] , [place], [place] [address] Basophils/100 WBC (Bld) 0.5 % 0 - 2 % [place] Comment on above: Test Performed by [facility], [address] , [place], [place] [address] Eosinophils (Bld) [#/Vol] 0.1 10*3/uL 0 - 0.5 10*3/uL [place], [place] Comment on above: Test Performed by [facility], [address] , [place], [place] [address] Eosinophils/100 WBC (Bld) 2.0 % 1 - 6 % [place], [place] Comment on above: Test Performed by [facility], [address] , [place], [place] [address] Erythrocyte distribution width (RBC) [Ratio] 13.6 % 11.5 - 14.5 % [place], [place] Comment on above: Test Performed by [facility], [address] , [place], [place] [address] Granulocytes/100 WBC (Bld) 66.8 % 40 - 80 % [place], [place] Comment on above: Test Performed by [facility], [address] , [place], [place] [address] Hematocrit (Bld) [Volume fraction] 41.0 % 40 - 52 % [place], [place] Comment on above: Test Performed by [facility], [address] , [place], [place] [address] Hemoglobin (Bld) [Mass/Vol] 14.0 g/dL 13 - 18 g/dL [place], [place] Comment on above: Test Performed by [facility], [address] , [place] [address] Interpretation and review of laboratory results Abnormal [place] Lymphocytes (Bld) [#/Vol] 1.3 10*3/uL 1 - 4.3 10*3/uL [place] Comment on above: Test Performed by [facility], [address] , [place], [place] [address] Lymphocytes/100 WBC (Bld) 21.1 % 20 - 40 % [place] Comment on above: Test Performed by [facility], [address] , [place] [id number] MCH (RBC) [Entitic mass] 35.5 pg High 26 - 34 pg [place] Comment on above: Test Performed by [facility], [address] , [place] [id number] MCHC (RBC) [Mass/Vol] 34.0 % 32 - 36 % [place], [place] Comment on above: Test Performed by [facility], [address] , [place] [id number] MCV (RBC) [Entitic vol] 104.4 fL High 80 - 98 fL [place], [place] Comment on above: Test Performed by [facility], [address] , [place] [address] Monocytes (Bld) [#/Vol] 0.6 10*3/uL 0 - 0.8 10*3/uL [place] Comment on above: Test Performed by [facility], [address] , [place], [place] [address] Monocytes/100 WBC (Bld) 9.6 % 2 - 10 % [place], [place] Comment on above: Test Performed by [facility], [address] , [place], [place] [address] Platelet mean volume (Bld) [Entitic vol] 8.6 fL 7.4 - 10.4 fL [place] Comment on above: Test Performed by [facility], [address] , [place], [place] [address] Platelets (Bld) [#/Vol] 227 10*3/uL 140 - 440 10*3/uL [place] Comment on above: Test Performed by [facility], [address] , [place], [place] [address] RBC (Bld) [#/Vol] 3.93 10*6/uL Low 4.4 - 5.9 10*6/uL [place] Comment on above: Test Performed by [facility], [address] , [place], [place] [address] WBC (Bld) [#/Vol] 6.3 10*3/uL 3.6 - 10.7 10*3/uL [place] Test Performed by [facility], [address] , [place], [place] [id number] [place] [address] Magnesiumon 01-28-2020 Magnesium [Mass/Vol] 1.7 mg/dL 1.6 - 2 .3 mg/dL [place] Otheron 01-28-2020 Test Performed by [facility], [address] , [place], [place] [id number] [place] [address] Phosphoruson 01-28-2020 Phosphate [Mass/Vol] 3.7 mg/dL 2.5 - 4 .5 mg/dL [place] Tacrolimus Levelon 0 Fk506 (Tacrolimus) 7.1 ug/L 5 - 20 ug/L [place] Comment on above: Test performed using Chemiluminescent Microparticle Immunoassay (CMIA; Goss Phot[employer] Double) Test Performed by [facility], [address] [place] [address] [place] Bilirubin, Directon 01-21-20 20 Bilirubin.direct [Mass/Vol] 0.0 mg/dL 0 - 0.3 mg/dL [place] CBC Auto Differentialon 04-0 Absolute Baso # 0.0 10*3/uL 0 - 0.2 10*3/uL [place] Comment on above: Test Performed by [facility], [address] , [place], [place] [address] Absolute Neut # 3.5 10*3/uL 1.8 - 7 10*3/uL [place] Comment on above: Test Performed by [facility], [address] , [place], [place] [address] Basophils/100 WBC (Bld) 0.6 % 0 - 2 % [place] Comment on above: Test Performed by [facility], [address] , [place], [place] [address] Eosinophils (Bld) [#/Vol] 0.1 10*3/uL 0 - 0.5 10*3/uL [place] Comment on above: Test Performed by [facility], [address] , [place] [address] Eosinophils/100 WBC (Bld) 1.6 % 1 - 6 % [place] Comment on above: Test Performed by [facility], [address] , [place] [address] Erythrocyte distribution width (RBC) [Ratio] 13.2 % 11.5 - 14.5 % [place] Comment on above: Test Performed by [facility], [address] , [place], [place] [address] Granulocytes/100 WBC (Bld) 64.0 % 40 - 80 % [place] Comment on above: Test Performed by [facility], [address] , [place], [place] [address] Hematocrit (Bld) [Volume fraction] 39.7 % Low 40 - 52 % [place] Comment on above: Test Performed by [facility], [address] , [place], [place] [address] Hemoglobin (Bld) [Mass/Vol] 13.4 g/dL 13 - 18 g/dL [place] Comment on above: Test Performed by [facility], [address] , [place] [address] Interpretation and review of laboratory results Abnormal [place] Lymphocytes (Bld) [#/Vol] 1.3 10*3/uL 1 - 4.3 10*3/uL [place] Comment on above: Test Performed by [facility], [address] , [place], [place] [address] Lymphocytes/100 WBC (Bld) 23.8 % 20 - 40 % [place] Comment on above: Test Performed by [facility], [address] , [place], [place] [address] MCH (RBC) [Entitic mass] 35.9 pg High 26 - 34 pg [place] Comment on above: Test Performed by [facility], [address] , [place], [place] [address] MCHC (RBC) [Mass/Vol] 33.8 % 32 - 36 % [place] Comment on above: Test Performed by [facility], [address] , [place], [place] [address] MCV (RBC) [Entitic vol] 106.4 fL High 80 - 98 fL [place] Comment on above: Test Performed by [facility], [address] , [place], [place] [address] Monocytes (Bld) [#/Vol] 0.5 10*3/uL 0 - 0.8 10*3/uL [place] Comment on above: Test Performed by [facility], [address] , [place], [place] [address] Monocytes/100 WBC (Bld) 10.0 % 2 - 10 % [place] Comment on above: Test Performed by [facility], [address] , [place], [place] [address] Platelet mean volume (Bld) [Entitic vol] 8.7 fL 7.4 - 10.4 fL [place] Comment on above: Test Performed by [facility], [address] , [place], [place] [address] Platelets (Bld) [#/Vol] 227 10*3/uL 140 - 440 10*3/uL [place] Comment on above: Test Performed by [facility], [address] , [place] [address] RBC (Bld) [#/Vol] 3.73 10*6/uL Low 4.4 - 5.9 10*6/uL [place] Comment on above: Test Performed by [facility], [address] , [place] [address] WBC (Bld) [#/Vol] 5.5 10*3/uL 3.6 - 10.7 10*3/uL [place] Comprehensive Metabolic Pane amaya 01-21-2020 Albumin [Mass/Vol] 4.3 g/dL 3.5 - 5 g/dL [place] Comment on above: Test Performed by [facility], [address] , [place] [address] ALP [Catalytic activity/Vol] 68 U/L 38 - 126 U/L [place] Comment on above: Test Performed by [facility], [address] , [place] [address] ALT [Catalytic activity/Vol] 51 U/L High 0 - 49 U/L [place] Comment on above: Test Performed by [facility], [address] , [place] [address] The ALT test is performed by an updated assay method. Please note that the reference intervals have been changed and are now sex specific. Anion gap [Moles/Vol] 8 mmol/L [place] Comment on above: Test Performed by [facility], [address] , [place] [address] AST [Catalytic activity/Vol] 43 U/L 15 - 46 U/L [place] Comment on above: Test Performed by [facility], [address] , [place] [address] Bilirubin Ql (U) 0.5 mg/dL 0.2 - 1.3 mg/dL [place] Comment on above: Test Performed by [facility], [address] , [place] [address] Calcium [Mass/Vol] 10.2 mg/dL 8.4 - 10. 4 mg/dL [place] Comment on above: Test Performed by [facility], [address] , [place] [address] Chloride [Moles/Vol] 105 mmol/L 98 - 10 7 mmol/L [facility], [place] Comment on above: Test Performed by [facility], [address] , [place] [address] CO2 [Moles/Vol] 25 mmol/L 22 - 30 mmol/L [place] Comment on above: Test Performed by [facility], [address] , [place] [address] Creatinine [Mass/Vol] 1.2 mg/dL 0.52 - 1.25 mg/dL [place] Comment on above: Test Performed by [facility], [address] , [place] [address] EGFR IF NonAfrican Montserratian >60.0 >60 mL/min [place] Comment on above: Test Performed by [facility], [address] , [place] [address] Source- MDRD equation with creatinine calibration to IDMS(NKDEP) eGFR not recommended for drug dose adjustment GFR/1.73 sq M predicted among blacks MDRD (S/P/Bld) [Vol rate/Area] mL/min/{1.73_m2} >60 mL/min [place] Comment on above: Test Performed by [facility], [address] , [place] [address] Glucose [Mass/Vol] 113 mg/dL High 70 - 100 mg/dL [place] Comment on above: Test Performed by [facility], [address] , [place] [address] Potassium [Moles/Vol] 5.3 mmol/L High 3.5 - 5.1 mmol/L [place] Comment on above: Test Performed by [facility], [address] , [place] [address] Protein [Mass/Vol] 6.7 g/dL 6.3 - 8.2 g/dL [place] Comment on above: Test Performed by [facility], [address] , [place] [address] Sodium [Moles/Vol] 138 mmol/L 135 - 145 mmol/L [place] Urea nitrogen [Mass/Vol] 23 mg/dL High 7 - 20 mg/dL [place] Comment on above: Test Performed by [facility], [address] , [place] [address] Magnesiumon 01-21-2020 Magnesium [Mass/Vol] 1.4 mg/dL Low 1.6 - 2 .3 mg/dL [place] Otheron 01-21-2020 Interpretation and review of laboratory results Abnormal [place] Test Performed by [facility], [address] , [address] Test Performed by [facility], [address] , [address] Phosphoruson 01-21-2020 Phosphate [Mass/Vol] 3.7 mg/dL 2.5 - 4 .5 mg/dL [place] RBC MORPHOLOGYon 01-21-2020 RBC morphology finding Nom (Bld) ABNORMAL [place] Sodium [Moles/Vol] Slight [place] Comment on above: Test Performed by [facility], [address] , [place] [address] Tacrolimus Levelon 0 Fk506 (Tacrolimus) 9.0 ug/L 5 - 20 ug/L [place] Comment on above: Test performed using Chemiluminescent Microparticle Immunoassay (CMIA; [employer]oss [employer] Double) Test Performed by [facility], [address] [place] [address] [place] Uric Acidon 01-21-2020 Urate [Mass/Vol] 5.9 mg/dL 2.5 - 8.5 mg/dL [place] Basic Metabolic Panelon 12-17 Anion gap [Moles/Vol] 9 mmol/L [place] Calcium [Mass/Vol] 10.6 mg/dL High 8.4 - 10. 4 mg/dL [place] Chloride [Moles/Vol] 108 mmol/L High 98 - 10 7 mmol/L [place] CO2 [Moles/Vol] 23 mmol/L 22 - 30 mmol/L [place] Creatinine [Mass/Vol] 1.59 mg/dL High 0.52 - 1.25 mg/dL [place] EGFR IF NonAfrican [place]err[place]ian 45.0 mL/min >60 [place] Comment on above: Source- MDRD equatio n with creatinine calibration to IDMS(NKDEP) eGFR not recommended for drug dose adjustment GFR/1.73 sq M predicted among blacks MDRD (S/P/Bld) [Vol rate/Area] 54.5 mL/min/{1.73_m2} >60 [place] Glucose [Mass/Vol] 116 mg/dL High 70 - 100 mg/dL [place] Potassium [Moles/Vol] 4.9 mmol/L 3.5 - 5.1 mmol/L [place] Sodium [Moles/Vol] 140 mmol/L 135 - 145 mmol/L [place] Urea nitrogen [Mass/Vol] 29 mg/dL High 7 - 20 mg/dL [place] CBC Auto Differentialon -3 Absolute Baso # 0.2 10*3/uL 0 - 0.2 10*3/uL [place] Absolute Neut # 3.6 10*3/uL 1.8 - 7 10*3/uL [place] Basophils/100 WBC (Bld) 3.1 % High 0 - 2 % [place] Eosinophils (Bld) [#/Vol] 0.0 10*3/uL 0 - 0.5 10*3/uL [place] Eosinophils/100 WBC (Bld) 0.7 % Low 1 - 6 % [place] Erythrocyte distribution width (RBC) [Ratio] 13.5 % 11.5 - 14.5 % [place] Granulocytes/100 WBC (Bld) 66.7 % 40 - 80 % [place] Hematocrit (Bld) [Volume fraction] 41.0 % 40 - 52 % [place] Hemoglobin (Bld) [Mass/Vol] 13.8 g/dL 13 - 18 g/dL [place] Interpretation and review of laboratory results Abnormal [place] Lymphocytes (Bld) [#/Vol] 1.2 10*3/uL 1 - 4.3 10*3/uL [place] Lymphocytes/100 WBC (Bld) 22.3 % 20 - 40 % [place] MCH (RBC) [Entitic mass] 35.8 pg High 26 - 34 pg [place] MCHC (RBC) [Mass/Vol] 33.6 % 32 - 36 % [place] MCV (RBC) [Entitic vol] 106.4 fL High 80 - 98 fL [place], [place] Monocytes (Bld) [#/Vol] 0.4 10*3/uL 0 - 0.8 10*3/uL [place] Monocytes/100 WBC (Bld) 7.2 % 2 - 10 % [place] Platelet mean volume (Bld) [Entitic vol] 7.9 fL 7.4 - 10.4 fL [place] Platelets (Bld) [#/Vol] 209 10*3/uL 140 - 440 10*3/uL [place] RBC (Bld) [#/Vol] 3.86 10*6/uL Low 4.4 - 5.9 10*6/uL [place] WBC (Bld) [#/Vol] 5.4 10*3/uL 3.6 - 10.7 10*3/uL [place] Ferritinon 01-14-2020 Ferritin [Mass/Vol] 573 ng/mL High 18 - 464 ng/mL [place] Interpretation and review of laboratory results Abnormal [place] Test Performed by [facility] [address] , [address] Hemoglobin A1Con 01-14-2020 eAG 120 mg/dL [place] HbA1c (Bld) [Mass fraction] 5.8 % High 4 - 5.7 % [place] Comment on above: --HgbA1C levels may not be accurate in patients who have renal disease, received recent blood transfusions, are anemic, or who have dyshemoglobinemia. Interpretation and review of laboratory results Abnormal [facility]- [place], [place] Test Performed by [facility], [address] , [address] [facility]- [place], [place] IgAon 01-14-2020 IgA [Mass/Vol] 75.2 mg/dL 70 - 400 mg/dL [facility] [place] IgGon 01-14-2020 IgG [Mass/Vol] 603.2 mg/dL Low 700 - 1600 mg/dL [facility] [place] IgMon 01-14-2020 IgM [Mass/Vol] 26.3 mg/dL Low 40 - 230 mg/dL [facility], [place] Iron and TIBCon 01-14-2020 Interpretation and review of laboratory results Abnormal [facility] [place] Iron [Mass/Vol] 188 ug/dL High 49 - 181 ug/dL [facility] [place] Sat 66 % High 15 - 50 % [facility] [place] TIBC 285 ug/dL 261 - 497 ug/dL [facility] [place] Test Performed by [facility], [address] , [address] [place], [place] Magnesiumon 01-14-2020 Magnesium [Mass/Vol] 1.7 mg/dL 1.6 - 2 .3 mg/dL [facility] [place] Otheron 01-14-2020 Interpretation and review of laboratory results Abnormal [facility] [place], [place] Test Performed by [facility], [address] [facility] [address]- [place], [place] Interpretation and review of laboratory results Abnormal [facility] [place] Test Performed by [facility], [address] , [address] [place], [place] Test Performed by [facility], [address] , [address]- [place], [place] Phosphoruson 01-14-2020 Phosphate [Mass/Vol] 4.7 mg/dL High 2.5 - 4 .5 mg/dL [facility] [place] RBC MORPHOLOGYon 01-14-2020 RBC morphology finding Nom (Bld) ABNORMAL [facility] [place] Sodium [Moles/Vol] Moderate [facility] [place] Sodium [Moles/Vol] Slight [place] Tacrolimus Levelon 0 Fk506 (Tacrolimus) 14.2 ug/L 5 - 20 ug/L [place] Comment on above: Test performed using Chemiluminescent Microparticle Immunoassay (CMIA; Goss Phot[employer] Double) Test Performed by [facility], [address] [place] [address] [place] Transferrinon 01-14-2020 Transferrin [Mass/Vol] 231 mg/dL 206 - 381 mg/dL [place] Test Performed by [facility], [address] [place], [place] [address] [place] Basic Metabolic Panelon 12-16 Anion gap [Moles/Vol] 8 mmol/L [place] Calcium [Mass/Vol] 10.1 mg/dL 8.4 - 10. 4 mg/dL [place] Chloride [Moles/Vol] 106 mmol/L 98 - 10 7 mmol/L [place] CO2 [Moles/Vol] 26 mmol/L 22 - 30 mmol/L [place] Creatinine [Mass/Vol] 1.29 mg/dL High 0.52 - 1.25 mg/dL [place] EGFR IF NonAfrican [place]err[place]ian 57.2 mL/min >60 [place] Comment on above: Source- MDRD equatio n with creatinine calibration to IDMS(NKDEP) eGFR not recommended for drug dose adjustment GFR/1.73 sq M predicted among blacks MDRD (S/P/Bld) [Vol rate/Area] mL/min/{1.73_m2} >60 mL/min [place] Glucose [Mass/Vol] 97 mg/dL 70 - 100 mg/dL [place] Interpretation and review of laboratory results Abnormal [place] Potassium [Moles/Vol] 4.9 mmol/L 3.5 - 5.1 mmol/L [place] Sodium [Moles/Vol] 140 mmol/L 135 - 145 mmol/L [place] Urea nitrogen [Mass/Vol] 23 mg/dL High 7 - 20 mg/dL [place] CBC Auto Differentialon 12-16 Absolute Baso # 0.0 10*3/uL 0 - 0.2 10*3/uL [place] Absolute Neut # 4.3 10*3/uL 1.8 - 7 10*3/uL [place] Basophils/100 WBC (Bld) 0.3 % 0 - 2 % [place] Eosinophils (Bld) [#/Vol] 0.1 10*3/uL 0 - 0.5 10*3/uL [place] Eosinophils/100 WBC (Bld) 1.4 % 1 - 6 % [place] Erythrocyte distribution width (RBC) [Ratio] 13.5 % 11.5 - 14.5 % [place] Granulocytes/100 WBC (Bld) 65.7 % 40 - 80 % [place] Hematocrit (Bld) [Volume fraction] 38.6 % Low 40 - 52 % [place] Hemoglobin (Bld) [Mass/Vol] 13.1 g/dL 13 - 18 g/dL [place] Interpretation and review of laboratory results Abnormal [place] Lymphocytes (Bld) [#/Vol] 1.6 10*3/uL 1 - 4.3 10*3/uL [place] Lymphocytes/100 WBC (Bld) 23.8 % 20 - 40 % [place] MCH (RBC) [Entitic mass] 36.7 pg High 26 - 34 pg [place] MCHC (RBC) [Mass/Vol] 34.0 % 32 - 36 % [place] MCV (RBC) [Entitic vol] 107.9 fL High 80 - 98 fL [place] Monocytes (Bld) [#/Vol] 0.6 10*3/uL 0 - 0.8 10*3/uL [place] Monocytes/100 WBC (Bld) 8.8 % 2 - 10 % [place] Platelet mean volume (Bld) [Entitic vol] 8.5 fL 7.4 - 10.4 fL [place] Platelets (Bld) [#/Vol] 207 10*3/uL 140 - 440 10*3/uL [place] RBC (Bld) [#/Vol] 3.57 10*6/uL Low 4.4 - 5.9 10*6/uL [place] WBC (Bld) [#/Vol] 6.6 10*3/uL 3.6 - 10.7 10*3/uL [place] Magnesiumon 01-07-2020 Magnesium [Mass/Vol] 1.8 mg/dL 1.6 - 2 .3 mg/dL [place] Otheron 01-07-2020 Test Performed by [facility], [facility] [address] Test Performed by [facility], [facility] [address] , [address] Phosphoruson 01-07-2020 Phosphate [Mass/Vol] 4.1 mg/dL 2.5 - 4 .5 mg/dL [place] RBC MORPHOLOGYon 01-07-2020 RBC morphology finding Nom (Bld) Normal [place] Sodium [Moles/Vol] Slight [place] Tacrolimus Levelon 0 Fk506 (Tacrolimus) 16.5 ug/L 5 - 20 ug/L [place] Comment on above: Test performed using Chemiluminescent Microparticle Immunoassay (CMIA; Goss Photographic Double) Test Performed by [facility], [address] [place] [address] [place] Spirometry without bronchodi latoron 01-01-2020 Name: NICK HERNÁNDEZ PatientID: [id number] Gender: Male Birthdate: 1960 Study Date: 01/01/2020 9:09:15 A Age: 59 Race: White or Height: 71.0 in, 180.3 cm Weight: 200.0 lbs, 90.9 kg Smoke Status: Quit Pack Years: Tbco Prod: Cigarettes Ordering Physician: [id number] Interpreting Physician: [id number] Imaging Science Professor: CATHERINE MORAN Testing Location: [facility] Diagnosis: S/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 FEV1 L,btps 3.84 2.38 62. FEV1/FVC (%) % 76. 61. 80. [id number]% L/s 3.22 1.02 32. FEFmax L/s 9.66 7.16 74. MVV in,btps 130.60 Lung Volumes (Body Box) Units Pred PreDrug Pre%Pred TLC L,btps 7.42 VC L,btps 5.03 IC L,btps 3.78 FRC L,btps 3.64 ERV L,btps 1.26 RV L,btps 2.39 RV/TLC (%) % 32. VTG L,btps RAW H2O/L/s 1.23 SGaw cmH2O/L 0.22 Diffusion (DLCO) Units Pred PreDrug Pre%Pred DLCO ml/min/mmHg,stpd 32.76 DLCOHb ml/min/mmHg,stpd 32.76 VAsb L,btps 7.25 D/VAsb ml/min/mmHg/L,stpd 4.52 D/VAsbHb ml/min/mmHg/L,stpd 4.52 VInsp L Hgb g/dl COHb % Lung Mechanics Units Pred PreDrug Pre%Pred PImax /MIP cmH2O -83.29 PEmax /MEP cmH2O 128.13 [facility] PRICING CONSULTANT NOTES Calibration check passed with acceptable system performance. The patient performed all pre-test requirements. Spirometry best effort, met acceptability and repeatability guidelines. [address]19[address]- SLIM Tests to perform: [id number] - SPIROMETRY WITHOUT BRONCHODILATOR PHYSICIAN INTERPRETATION Forced expiratory spirogram reveals moderate large airways obstructive lung disease. Spirograms are of good quality and do not plateau. The respiratory flow volume loop reveals decreased flows at all volumes consistent with large and small airways obstruction. IMPRESSION: Moderate large airways obstructive lung disease. [facility] [place], [place], [facility] Incoming Cardiology Results From [facility] - 01/01/2020 10:29 AM EDT Name: NICK HERNÁNDEZ PatientID: [id number] Gender: Male Birthdate: 1960 Study Date: 01/01/2020 9:09:15 A Age: 59 Race: White or Height: 71.0 in, 180.3 cm Weight: 200.0 lbs, 90.9 kg Smoke Status: Quit Pack Years: Tbco Prod: Cigarettes Ordering Physician: [id number] Interpreting Physician: [id number] Imaging Science Professor: CATHERINE MORAN Testing Location: [facility] Diagnosis: S/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 FEV1 L,btps 3.84 2.38 62. FEV1/FVC (%) % 76. 61. 80. [id number]% L/s 3.22 1.02 32. FEFmax L/s 9.66 7.16 74. MVV in,btps 130.60 Lung Volumes (Body Box) Units Pred PreDrug Pre%Pred TLC L,btps 7.42 VC L,btps 5.03 IC L,btps 3.78 FRC L,btps 3.64 ERV L,btps 1.26 RV L,btps 2.39 RV/TLC (%) % 32. VTG L,btps RAW H2O/L/s 1.23 SGaw cmH2O/L 0.22 Diffusion (DLCO) Units Pred PreDrug Pre%Pred DLCO ml/min/mmHg,stpd 32.76 DLCOHb ml/min/mmHg,stpd 32.76 VAsb L,btps 7.25 D/VAsb ml/min/mmHg/L,stpd 4.52 D/VAsbHb ml/min/mmHg/L,stpd 4.52 VInsp L Hgb g/dl COHb % Lung Mechanics Units Pred PreDrug Pre%Pred PImax /MIP cmH2O -83.29 PEmax /MEP cmH2O 128.13 [employer] PRICING CONSULTANT NOTES Calibration check passed with acceptable system performance. The patient performed all pre-test requirements. Spirometry best effort, met acceptability and repeatability guidelines. 929[address]- SLIM Tests to perform: [id number] - SPIROMETRY WITHOUT BRONCHODILATOR PHYSICIAN INTERPRETATION Forced expiratory spirogram reveals moderate large airways obstructive lung disease. Spirograms are of good quality and do not plateau. The respiratory flow volume loop reveals decreased flows at all volumes consistent with large and small airways obstruction. IMPRESSION: Moderate large airways obstructive lung disease. [facility], [place] Basic Metabolic Panelon 03- Anion gap [Moles/Vol] 8 mmol/L [place] Calcium [Mass/Vol] 10.4 mg/dL 8.4 - 10. 4 mg/dL [place] Chloride [Moles/Vol] 105 mmol/L 98 - 10 7 mmol/L [place] CO2 [Moles/Vol] 26 mmol/L 22 - 30 mmol/L [place] Creatinine [Mass/Vol] 1.47 mg/dL High 0.52 - 1.25 mg/dL [place] EGFR IF NonAfrican [place]err[place]ian 49.2 mL/min >60 [place] Comment on above: Source- MDRD equatio n with creatinine calibration to IDMS(NKDEP) eGFR not recommended for drug dose adjustment GFR/1.73 sq M predicted among blacks MDRD (S/P/Bld) [Vol rate/Area] 59.7 mL/min/{1.73_m2} >60 [place] Glucose [Mass/Vol] 105 mg/dL High 70 - 100 mg/dL [place], [place] Interpretation and review of laboratory results Abnormal [place] Potassium [Moles/Vol] 5.2 mmol/L High 3.5 - 5.1 mmol/L [place] Sodium [Moles/Vol] 139 mmol/L 135 - 145 mmol/L [place] Urea nitrogen [Mass/Vol] 28 mg/dL High 7 - 20 mg/dL [place] CBC Auto Differentialon 03- Absolute Baso # 0.0 10*3/uL 0 - 0.2 10*3/uL [place] Absolute Neut # 3.6 10*3/uL 1.8 - 7 10*3/uL [place] Basophils/100 WBC (Bld) 0.4 % 0 - 2 % [place] Eosinophils (Bld) [#/Vol] 0.1 10*3/uL 0 - 0.5 10*3/uL [place] Eosinophils/100 WBC (Bld) 1.3 % 1 - 6 % [place] Erythrocyte distribution width (RBC) [Ratio] 14.2 % 11.5 - 14.5 % [place] Granulocytes/100 WBC (Bld) 61.3 % 40 - 80 % [place] Hematocrit (Bld) [Volume fraction] 39.6 % Low 40 - 52 % [place] Hemoglobin (Bld) [Mass/Vol] 13.3 g/dL 13 - 18 g/dL [place] Interpretation and review of laboratory results Abnormal [place] Lymphocytes (Bld) [#/Vol] 1.6 10*3/uL 1 - 4.3 10*3/uL [place] Lymphocytes/100 WBC (Bld) 27.9 % 20 - 40 % [place] MCH (RBC) [Entitic mass] 36.7 pg High 26 - 34 pg [place] MCHC (RBC) [Mass/Vol] 33.6 % 32 - 36 % [place] MCV (RBC) [Entitic vol] 109.0 fL High 80 - 98 fL [place] Monocytes (Bld) [#/Vol] 0.5 10*3/uL 0 - 0.8 10*3/uL [place] Monocytes/100 WBC (Bld) 9.1 % 2 - 10 % [place] Platelet mean volume (Bld) [Entitic vol] 8.2 fL 7.4 - 10.4 fL [place] Platelets (Bld) [#/Vol] 206 10*3/uL 140 - 440 10*3/uL [place] RBC (Bld) [#/Vol] 3.63 10*6/uL Low 4.4 - 5.9 10*6/uL [place] WBC (Bld) [#/Vol] 5.8 10*3/uL 3.6 - 10.7 10*3/uL [place] Test Performed by [facility], [facility] [address] , [place], [place] [id number] [place] [address] Magnesiumon 12-31-2019 Magnesium [Mass/Vol] 1.6 mg/dL 1.6 - 2 .3 mg/dL [place] Otheron 12-31-2019 Test Performed by [facility], [address] , [place], [place] [id number] [place] [address] Phosphoruson 12-31-2019 Phosphate [Mass/Vol] 4.1 mg/dL 2.5 - 4 .5 mg/dL [place] RBC MORPHOLOGYon 12-31-2019 RBC morphology finding Nom (Bld) ABNORMAL [place] Sodium [Moles/Vol] Slight [place] Test Performed by [facility], [address] , [place], [place] [id number] [place] [address] Basic Metabolic Panelon Anion gap [Moles/Vol] 10 mmol/L [place] Calcium [Mass/Vol] 10.8 mg/dL High 8.4 - 10. 4 mg/dL [place] Chloride [Moles/Vol] 108 mmol/L High 98 - 10 7 mmol/L [place] CO2 [Moles/Vol] 24 mmol/L 22 - 30 mmol/L [place] Creatinine [Mass/Vol] 1.63 mg/dL High 0.52 - 1.25 mg/dL [place] EGFR IF NonAfrican [place] 43.7 mL/min >60 [place] Comment on above: Source- MDRD equatio n with creatinine calibration to IDMS(NKDEP) eGFR not recommended for drug dose adjustment GFR/1.73 sq M predicted among blacks MDRD (S/P/Bld) [Vol rate/Area] 53.0 mL/min/{1.73_m2} >60 [place] Glucose [Mass/Vol] 123 mg/dL High 70 - 100 mg/dL [place] Potassium [Moles/Vol] 4.9 mmol/L 3.5 - 5.1 mmol/L [place] Sodium [Moles/Vol] 142 mmol/L 135 - 145 mmol/L [place] Urea nitrogen [Mass/Vol] 29 mg/dL High 7 - 20 mg/dL [place] CBC Auto Differentialon Absolute Baso # 0.0 10*3/uL 0 - 0.2 10*3/uL [place] Absolute Neut # 3.7 10*3/uL 1.8 - 7 10*3/uL [place] Basophils/100 WBC (Bld) 0.3 % 0 - 2 % [place] Eosinophils (Bld) [#/Vol] 0.1 10*3/uL 0 - 0.5 10*3/uL [place] Eosinophils/100 WBC (Bld) 0.8 % Low 1 - 6 % [place] Erythrocyte distribution width (RBC) [Ratio] 14.5 % 11.5 - 14.5 % [place] Granulocytes/100 WBC (Bld) 61.5 % 40 - 80 % [place] Hematocrit (Bld) [Volume fraction] 40.3 % 40 - 52 % [place] Hemoglobin (Bld) [Mass/Vol] 13.3 g/dL 13 - 18 g/dL [place] Interpretation and review of laboratory results Abnormal [place] Lymphocytes (Bld) [#/Vol] 1.7 10*3/uL 1 - 4.3 10*3/uL [place] Lymphocytes/100 WBC (Bld) 27.8 % 20 - 40 % [place] MCH (RBC) [Entitic mass] 36.5 pg High 26 - 34 pg [place] MCHC (RBC) [Mass/Vol] 33.1 % 32 - 36 % [place] MCV (RBC) [Entitic vol] 110.4 fL High 80 - 98 fL [place] Monocytes (Bld) [#/Vol] 0.6 10*3/uL 0 - 0.8 10*3/uL [place] Monocytes/100 WBC (Bld) 9.6 % 2 - 10 % [place] Platelet mean volume (Bld) [Entitic vol] 8.2 fL 7.4 - 10.4 fL [place] Platelets (Bld) [#/Vol] 237 10*3/uL 140 - 440 10*3/uL [place] RBC (Bld) [#/Vol] 3.65 10*6/uL Low 4.4 - 5.9 10*6/uL [place] WBC (Bld) [#/Vol] 6.1 10*3/uL 3.6 - 10.7 10*3/uL [place] Magnesiumon 12-24-2019 Magnesium [Mass/Vol] 1.4 mg/dL Low 1.6 - 2 .3 mg/dL [place] Otheron 12-24-2019 Test Performed by [facility], [facility] [address] , [address] Interpretation and review of laboratory results Abnormal [place] Test Performed by [facility], [address] , [address] Phosphoruson 12-24-2019 Phosphate [Mass/Vol] 4.8 mg/dL High 2.5 - 4 .5 mg/dL [place] RBC MORPHOLOGYon 12-24-2019 Sodium [Moles/Vol] Slight [place] Mirella 12-17-2019 ALT [Catalytic activity/Vol] 52 U/L 13 - 69 U/L [place] Alea 12-17-2019 AST [Catalytic activity/Vol] 30 U/L 15 - 46 U/L [place] Albuminon 12-17-2019 Albumin [Mass/Vol] 4.4 g/dL 3.5 - 5 g/dL [place] Alkaline Phosphataseon 12-16 ALP [Catalytic activity/Vol] 83 U/L 38 - 126 U/L [place] Basic Metabolic Panelon Anion gap [Moles/Vol] 9 mmol/L [place] Calcium [Mass/Vol] 10.7 mg/dL High 8.4 - 10. 4 mg/dL [place] Chloride [Moles/Vol] 105 mmol/L 98 - 10 7 mmol/L [place] CO2 [Moles/Vol] 27 mmol/L 22 - 30 mmol/L [place] Creatinine [Mass/Vol] 1.27 mg/dL High 0.52 - 1.25 mg/dL [place] EGFR IF NonAfrican [place] 58.3 mL/min >60 [place] Comment on above: Source- MDRD equatio n with creatinine calibration to IDMS(NKDEP) eGFR not recommended for drug dose adjustment GFR/1.73 sq M predicted among blacks MDRD (S/P/Bld) [Vol rate/Area] mL/min/{1.73_m2} >60 mL/min [place] Glucose [Mass/Vol] 113 mg/dL High 70 - 100 mg/dL [place] Interpretation and review of laboratory results Abnormal [place] Potassium [Moles/Vol] 5.6 mmol/L High 3.5 - 5.1 mmol/L [place] Sodium [Moles/Vol] 142 mmol/L 135 - 145 mmol/L [place] Urea nitrogen [Mass/Vol] 27 mg/dL High 7 - 20 mg/dL [place] Bilirubin, Directon 12-17-19 20 Bilirubin.direct [Mass/Vol] 0.0 mg/dL 0 - 0.3 mg/dL [place] Bilirubin, Totalon 0 Bilirubin Ql (U) 0.3 mg/dL 0.2 - 1.3 mg/dL [place] CBC Auto Differentialon Absolute Baso # 0.0 10*3/uL 0 - 0.2 10*3/uL [place] Absolute Neut # 6.6 10*3/uL 1.8 - 7 10*3/uL [place] Basophils/100 WBC (Bld) 0.3 % 0 - 2 % [place] Eosinophils (Bld) [#/Vol] 0.1 10*3/uL 0 - 0.5 10*3/uL [place] Eosinophils/100 WBC (Bld) 0.9 % Low 1 - 6 % [place] Erythrocyte distribution width (RBC) [Ratio] 15.1 % High 11.5 - 14.5 % [place] Granulocytes/100 WBC (Bld) 79.7 % 40 - 80 % [place] Hematocrit (Bld) [Volume fraction] 38.9 % Low 40 - 52 % [place] Hemoglobin (Bld) [Mass/Vol] 13.2 g/dL 13 - 18 g/dL [place] Interpretation and review of laboratory results Abnormal [place] Lymphocytes (Bld) [#/Vol] 1.0 10*3/uL 1 - 4.3 10*3/uL [place] Lymphocytes/100 WBC (Bld) 12.5 % Low 20 - 40 % [place] MCH (RBC) [Entitic mass] 37.1 pg High 26 - 34 pg [place] MCHC (RBC) [Mass/Vol] 33.9 % 32 - 36 % [place] MCV (RBC) [Entitic vol] 109.4 fL High 80 - 98 fL [place], [place] Monocytes (Bld) [#/Vol] 0.5 10*3/uL 0 - 0.8 10*3/uL [place], [place] Monocytes/100 WBC (Bld) 6.6 % 2 - 10 % [place] Platelet mean volume (Bld) [Entitic vol] 8.1 fL 7.4 - 10.4 fL [place] Platelets (Bld) [#/Vol] 259 10*3/uL 140 - 440 10*3/uL [place] RBC (Bld) [#/Vol] 3.55 10*6/uL Low 4.4 - 5.9 10*6/uL [place] WBC (Bld) [#/Vol] 8.3 10*3/uL 3.6 - 10.7 10*3/uL [place] Gamma GTon 12-17-2019 Gamma glutamyl transferase [Catalytic activity/Vol] 48 U/L 12 - 58 U/L [place] Magnesiumon 12-17-2019 Magnesium [Mass/Vol] 1.6 mg/dL 1.6 - 2 .3 mg/dL [place] Otheron 12-17-2019 Test Performed by [facility], [address] , [place], [place] [id number] [place] [address] Test Performed by [facility], [address] , [place], [place] [id number] [place] [address] Phosphoruson 12-17-2019 Phosphate [Mass/Vol] 3.8 mg/dL 2.5 - 4 .5 mg/dL [place] RBC MORPHOLOGYon 12-17-2019 RBC morphology finding Nom (Bld) ABNORMAL [place] Sodium [Moles/Vol] Slight [place] Uric Acidon 12-17-2019 Urate [Mass/Vol] 6.0 mg/dL 2.5 - 8.5 mg/dL [place] CBC Auto Differentialon 11-18 Absolute Baso # 0.1 10*3/uL 0 - 0.2 10*3/uL [place] Absolute Neut # 5.5 10*3/uL 1.8 - 7 10*3/uL [place] Basophils/100 WBC (Bld) 1.4 % 0 - 2 % [place] Eosinophils (Bld) [#/Vol] 0.1 10*3/uL 0 - 0.5 10*3/uL [place] Eosinophils/100 WBC (Bld) 0.9 % Low 1 - 6 % [place] Erythrocyte distribution width (RBC) [Ratio] 15.5 % High 11.5 - 14.5 % [place] Granulocytes/100 WBC (Bld) 70.7 % 40 - 80 % [place] Hematocrit (Bld) [Volume fraction] 40.4 % 40 - 52 % [place] Hemoglobin (Bld) [Mass/Vol] 13.7 g/dL 13 - 18 g/dL [place] Interpretation and review of laboratory results Abnormal [place] Lymphocytes (Bld) [#/Vol] 1.5 10*3/uL 1 - 4.3 10*3/uL [place] Lymphocytes/100 WBC (Bld) 18.9 % Low 20 - 40 % [place] MCH (RBC) [Entitic mass] 37.2 pg High 26 - 34 pg [place] MCHC (RBC) [Mass/Vol] 34.0 % 32 - 36 % [place] MCV (RBC) [Entitic vol] 109.3 fL High 80 - 98 fL [place] Monocytes (Bld) [#/Vol] 0.6 10*3/uL 0 - 0.8 10*3/uL [place], [place] Monocytes/100 WBC (Bld) 8.1 % 2 - 10 % [place] Platelet mean volume (Bld) [Entitic vol] 7.9 fL 7.4 - 10.4 fL [place] Platelets (Bld) [#/Vol] 240 10*3/uL 140 - 440 10*3/uL [place] RBC (Bld) [#/Vol] 3.69 10*6/uL Low 4.4 - 5.9 10*6/uL [place] WBC (Bld) [#/Vol] 7.8 10*3/uL 3.6 - 10.7 10*3/uL [place] Gamma GTon 12-10-2019 Gamma glutamyl transferase [Catalytic activity/Vol] 48 U/L 12 - 58 U/L [place] Hepatic Function Panelon ALP [Catalytic activity/Vol] 81 U/L 38 - 126 U/L [place] ALT [Catalytic activity/Vol] 39 U/L 13 - 69 U/L [place] AST [Catalytic activity/Vol] 25 U/L 15 - 46 U/L [place] Bilirubin Ql (U) 0.4 mg/dL 0.2 - 1.3 mg/dL [place] Bilirubin.direct [Mass/Vol] 0.0 mg/dL 0 - 0.3 mg/dL [place] Protein [Mass/Vol] 7.0 g/dL 6.3 - 8.2 g/dL [place] Magnesiumon 12-10-2019 Magnesium [Mass/Vol] 1.5 mg/dL Low 1.6 - 2 .3 mg/dL [place] Otheron 12-10-2019 Interpretation and review of laboratory results Abnormal [place] Test Performed by [facility], [address] , [address] Test Performed by [facility], [address] , [address] Protime-INRon 12-10-2019 INR Coag (PPP) [Relative time] 1.0 {INR} [place] Comment on above: Recommended Anticoag ulant Therapy: SEE BELOW ----- INR of 2.0 - 3.0 : - Prophylaxis of Venous Thrombosis (high-risk surgery) - Treatment of Venous Thrombosis - Treatment of Pulmonary Embolism (Includes tissue heart valves, Acute Myocardial Infarction to prevent systemic embolism, Valvular Heart Disease, and Atrial Fibrillation) ----- INR of 2.5 - 3.5 : - Mechanical Prosthetic Valves (high risk) - If oral anticoagulant therapy is used to prevent Myocardial Infarction PT Coag (PPP) [Time] 10.3 s 9 - 12 s [place], [place] Comment on above: . Test Performed by [facility], [address] , [address] RBC MORPHOLOGYon 12-10-2019 Anisocytosis Ql (Bld) Slight [place] RBC morphology finding Nom (Bld) ABNORMAL [place] Sodium [Moles/Vol] Moderate [place] Renal Function Panelon 12-10 Albumin [Mass/Vol] 4.7 g/dL 3.5 - 5 g/dL [place] Anion gap [Moles/Vol] 10 mmol/L [place] Calcium [Mass/Vol] 10.8 mg/dL High 8.4 - 10. 4 mg/dL [place] Chloride [Moles/Vol] 107 mmol/L 98 - 10 7 mmol/L [place] CO2 [Moles/Vol] 25 mmol/L 22 - 30 mmol/L [place] Creatinine [Mass/Vol] 1.38 mg/dL High 0.52 - 1.25 mg/dL [place] EGFR IF NonAfrican [place] 53.0 mL/min >60 [place] Comment on above: Source- MDRD equatio n with creatinine calibration to IDMS(NKDEP) eGFR not recommended for drug dose adjustment GFR/1.73 sq M predicted among blacks MDRD (S/P/Bld) [Vol rate/Area] mL/min/{1.73_m2} >60 mL/min [place] Glucose [Mass/Vol] 113 mg/dL High 70 - 100 mg/dL [place] Phosphate [Mass/Vol] 4.5 mg/dL 2.5 - 4 .5 mg/dL [place] Potassium [Moles/Vol] 5.4 mmol/L High 3.5 - 5.1 mmol/L [place] Sodium [Moles/Vol] 142 mmol/L 135 - 145 mmol/L [place] Urea nitrogen [Mass/Vol] 26 mg/dL High 7 - 20 mg/dL [place] Basic Metabolic Panelon - Anion gap [Moles/Vol] 8 mmol/L [facility] Work Phone: Calcium [Mass/Vol] 10.3 mg/dL 8.4 - 10. 4 mg/dL [facility] Work Phone: Chloride [Moles/Vol] 105 mmol/L 98 - 10 7 mmol/L [facility] Work Phone: CO2 [Moles/Vol] 27 mmol/L 22 - 30 mmol/L [facility] Work Phone: Creatinine [Mass/Vol] 1.54 mg/dL High 0.52 - 1.25 mg/dL [facility] Work Phone: EGFR IF NonAfrican [place] 46.7 mL/min >60 [facility] Work Phone: Comment on above: Source- MDRD equatio n with creatinine calibration to IDMS(NKDEP) eGFR not recommended for drug dose adjustment GFR/1.73 sq M predicted among blacks MDRD (S/P/Bld) [Vol rate/Area] 56.6 mL/min/{1.73_m2} >60 [facility] Work Phone: [phone] Glucose [Mass/Vol] 105 mg/dL High 70 - 100 mg/dL [facility] Work Phone: [phone] Interpretation and review of laboratory results Abnormal [facility] Work Phone: [phone] Potassium [Moles/Vol] 5.0 mmol/L 3.5 - 5.1 mmol/L [facility] Work Phone: [phone] Sodium [Moles/Vol] 140 mmol/L 135 - 145 mmol/L [facility] Work Phone: [phone] Urea nitrogen [Mass/Vol] 28 mg/dL High 7 - 20 mg/dL [facility] Work Phone: [phone] CBC Auto Differentialon 11-17 Absolute Baso # 0.0 10*3/uL 0 - 0.2 10*3/uL [facility] Work Phone: [phone] Absolute Neut # 4.8 10*3/uL 1.8 - 7 10*3/uL [facility] Work Phone: [phone] Basophils/100 WBC (Bld) 0.2 % 0 - 2 % [facility] Work Phone: [phone] Eosinophils (Bld) [#/Vol] 0.1 10*3/uL 0 - 0.5 10*3/uL [facility] Work Phone: [phone] Eosinophils/100 WBC (Bld) 1.5 % 1 - 6 % [facility] Work Phone: [phone] Erythrocyte distribution width (RBC) [Ratio] 15.5 % High 11.5 - 14.5 % [facility] Work Phone: [phone] Granulocytes/100 WBC (Bld) 65.1 % 40 - 80 % [facility] Work Phone: [phone] Hematocrit (Bld) [Volume fraction] 40.1 % 40 - 52 % [facility] Work Phone: [phone] Hemoglobin (Bld) [Mass/Vol] 13.5 g/dL 13 - 18 g/dL [facility] Work Phone: [phone] Interpretation and review of laboratory results Abnormal [facility] Work Phone: [phone] Lymphocytes (Bld) [#/Vol] 1.9 10*3/uL 1 - 4.3 10*3/uL [facility] Work Phone: 1 Lymphocytes/100 WBC (Bld) 25.0 % 20 - 40 % [facility] Work Phone: 1 MCH (RBC) [Entitic mass] 37.1 pg High 26 - 34 pg [facility] Work Phone: 1 MCHC (RBC) [Mass/Vol] 33.6 % 32 - 36 % [facility] Work Phone: 1 MCV (RBC) [Entitic vol] 110.3 fL High 80 - 98 fL [facility] Work Phone: 1 Monocytes (Bld) [#/Vol] 0.6 10*3/uL 0 - 0.8 10*3/uL [facility] Work Phone: 1 Monocytes/100 WBC (Bld) 8.2 % 2 - 10 % [facility] Work Phone: 1 Platelet mean volume (Bld) [Entitic vol] 8.0 fL 7.4 - 10.4 fL [facility] Work Phone: 1) Platelets (Bld) [#/Vol] 195 10*3/uL 140 - 440 10*3/uL [facility] Work Phone: 1 RBC (Bld) [#/Vol] 3.63 10*6/uL Low 4.4 - 5.9 10*6/uL [facility] Work Phone: 1 WBC (Bld) [#/Vol] 7.4 10*3/uL 3.6 - 10.7 10*3/uL [facility] Work Phone: 1 Magnesiumon 12-04-2019 Magnesium [Mass/Vol] 1.8 mg/dL 1.6 - 2 .3 mg/dL [facility] Work Phone: 1 Otheron 12-04-2019 Test Performed by [facility], [address] , [place], [place] [address] [facility] Work Phone: 1 Test Performed by [facility], [address] , [place], [place] [address] [facility] Work Phone: [phone] Phosphoruson 12-04-2019 Phosphate [Mass/Vol] 3.9 mg/dL 2.5 - 4 .5 mg/dL [facility] Work Phone: [phone] RBC MORPHOLOGYon 12-04-2019 Anisocytosis Ql (Bld) Slight [facility] Work Phone: [phone] RBC morphology finding Nom (Bld) ABNORMAL [facility] Work Phone: [phone] Sodium [Moles/Vol] Moderate [facility] Work Phone: [phone] Basic Metabolic Panelon 11-17 Anion gap [Moles/Vol] 10 mmol/L [facility] Work Phone: [phone] Calcium [Mass/Vol] 10.6 mg/dL High 8.4 - 10. 4 mg/dL [facility] Work Phone: [phone] Chloride [Moles/Vol] 107 mmol/L 98 - 10 7 mmol/L [facility] Work Phone: [phone] CO2 [Moles/Vol] 24 mmol/L 22 - 30 mmol/L [facility] Work Phone: [phone] Creatinine [Mass/Vol] 1.65 mg/dL High 0.52 - 1.25 mg/dL [facility] Work Phone: [phone] EGFR IF NonAfrican [place] 43.1 mL/min >60 [facility] Work Phone: [phone] Comment on above: Source- MDRD equatio n with creatinine calibration to IDMS(NKDEP) eGFR not recommended for drug dose adjustment GFR/1.73 sq M predicted among blacks MDRD (S/P/Bld) [Vol rate/Area] 52.3 mL/min/{1.73_m2} >60 [facility] Work Phone: [phone] Glucose [Mass/Vol] 113 mg/dL High 70 - 100 mg/dL [facility] Work Phone: [phone] Interpretation and review of laboratory results Abnormal [facility] Work Phone: [phone] Potassium [Moles/Vol] 5.4 mmol/L High 3.5 - 5.1 mmol/L [facility] Work Phone: Sodium [Moles/Vol] 141 mmol/L 135 - 145 mmol/L [facility] Work Phone: [phone] Urea nitrogen [Mass/Vol] 29 mg/dL High 7 - 20 mg/dL [facility] Work Phone: [phone] CBC Auto Differentialon 11-17 Absolute Baso # 0.0 10*3/uL 0 - 0.2 10*3/uL [facility] Work Phone: 1 Absolute Neut # 4.5 10*3/uL 1.8 - 7 10*3/uL [facility] Work Phone: [phone] Basophils/100 WBC (Bld) 0.2 % 0 - 2 % S [facility] Work Phone: Eosinophils (Bld) [#/Vol] 0.1 10*3/uL 0 - 0.5 10*3/uL [facility] Work Phone: 1 Eosinophils/100 WBC (Bld) 0.8 % Low 1 - 6 % [facility] Work Phone: 1 Erythrocyte distribution width (RBC) [Ratio] 16.0 % High 11.5 - 14.5 % [facility] Work Phone: 1 Granulocytes/100 WBC (Bld) 68.9 % 40 - 80 % [facility] Work Phone: Hematocrit (Bld) [Volume fraction] 42.7 % 40 - 52 % [facility] Work Phone: 1 Hemoglobin (Bld) [Mass/Vol] 14.2 g/dL 13 - 18 g/dL [facility] Work Phone: 1 Interpretation and review of laboratory results Abnormal [facility] Work Phone: 1 Lymphocytes (Bld) [#/Vol] 1.5 10*3/uL 1 - 4.3 10*3/uL [facility] Work Phone: 1 Lymphocytes/100 WBC (Bld) 22.8 % 20 - 40 % [facility] Work Phone: [phone] MCH (RBC) [Entitic mass] 36.6 pg High 26 - 34 pg [facility] Work Phone: MCHC (RBC) [Mass/Vol] 33.2 % 32 - 36 % [facility] Work Phone: 1 MCV (RBC) [Entitic vol] 110.2 fL High 80 - 98 fL [facility] Work Phone: 1 Monocytes (Bld) [#/Vol] 0.5 10*3/uL 0 - 0.8 10*3/uL [facility] Work Phone: 1 Monocytes/100 WBC (Bld) 7.3 % 2 - 10 % [facility] Work Phone: 1 Platelet mean volume (Bld) [Entitic vol] 8.1 fL 7.4 - 10.4 fL [facility] Work Phone: Platelets (Bld) [#/Vol] 261 10*3/uL 140 - 440 10*3/uL [facility] Work Phone: RBC (Bld) [#/Vol] 3.87 10*6/uL Low 4.4 - 5.9 10*6/uL [facility] Work Phone: 1 WBC (Bld) [#/Vol] 6.5 10*3/uL 3.6 - 10.7 10*3/uL [facility] Work Phone: 1 Magnesiumon 11-26-2019 Magnesium [Mass/Vol] 1.8 mg/dL 1.6 - 2 .3 mg/dL [facility] Work Phone: 1 Otheron 11-26-2019 Test Performed by [facility], [facility] [address] Work Phone: 1 Test Performed by [employer], [address] [place] [address] [employer] Work Phone: 1 Phosphoruson 11-26-2019 Phosphate [Mass/Vol] 4.2 mg/dL 2.5 - 4 .5 mg/dL [facility] Work Phone: 1 RBC MORPHOLOGYon 11-26-2019 Anisocytosis Ql (Bld) Slight [facility] Work Phone: 1 RBC morphology finding Nom (Bld) ABNORMAL [facility] Work Phone: Sodium [Moles/Vol] Slight [facility] Work Phone: Basic Metabolic Panelon -0 Anion gap [Moles/Vol] 10 mmol/L [facility] Work Phone: [phone] Calcium [Mass/Vol] 10.2 mg/dL 8.4 - 10. 4 mg/dL [facility] Work Phone: [phone] Chloride [Moles/Vol] 107 mmol/L 98 - 10 7 mmol/L [facility] Work Phone: [phone] CO2 [Moles/Vol] 23 mmol/L 22 - 30 mmol/L [facility] Work Phone: [phone] Creatinine [Mass/Vol] 1.38 mg/dL High 0.52 - 1.25 mg/dL [facility] Work Phone: [phone] EGFR IF NonAfrican [place] 53.0 mL/min >60 [facility] Work Phone: [phone] Comment on above: Source- MDRD equatio n with creatinine calibration to IDMS(NKDEP) eGFR not recommended for drug dose adjustment GFR/1.73 sq M predicted among blacks MDRD (S/P/Bld) [Vol rate/Area] mL/min/{1.73_m2} >60 mL/min [facility] Work Phone: [phone] Glucose [Mass/Vol] 111 mg/dL High 70 - 100 mg/dL [facility] Work Phone: [phone] Potassium [Moles/Vol] 5.2 mmol/L High 3.5 - 5.1 mmol/L [facility] Work Phone: [phone] Sodium [Moles/Vol] 140 mmol/L 135 - 145 mmol/L [facility] Work Phone: [phone] Urea nitrogen [Mass/Vol] 31 mg/dL High 7 - 20 mg/dL [facility] Work Phone: [phone] CBC Auto Differentialon - Absolute Baso # 0.0 10*3/uL 0 - 0.2 10*3/uL [facility] Work Phone: Absolute Neut # 5.5 10*3/uL 1.8 - 7 10*3/uL [facility] Work Phone: [phone] Basophils/100 WBC (Bld) 0.5 % 0 - 2 % [facility] Work Phone: Eosinophils (Bld) [#/Vol] 0.0 10*3/uL 0 - 0.5 10*3/uL [facility] Work Phone: [phone] Eosinophils/100 WBC (Bld) 0.4 % Low 1 - 6 % [facility] Work Phone: Erythrocyte distribution width (RBC) [Ratio] 16.1 % High 11.5 - 14.5 % [facility] Work Phone: Granulocytes/100 WBC (Bld) 73.9 % 40 - 80 % [facility] Work Phone: Hematocrit (Bld) [Volume fraction] 43.3 % 40 - 52 % [facility] Work Phone: Hemoglobin (Bld) [Mass/Vol] 14.5 g/dL 13 - 18 g/dL [facility] Work Phone: Interpretation and review of laboratory results Abnormal [facility] Work Phone: Lymphocytes (Bld) [#/Vol] 1.3 10*3/uL 1 - 4.3 10*3/uL [facility] Work Phone: Lymphocytes/100 WBC (Bld) 16.9 % Low 20 - 40 % [facility] Work Phone: MCH (RBC) [Entitic mass] 36.9 pg High 26 - 34 pg [facility] Work Phone: MCHC (RBC) [Mass/Vol] 33.6 % 32 - 36 % [facility] Work Phone: MCV (RBC) [Entitic vol] 109.9 fL High 80 - 98 fL [facility] Work Phone: Monocytes (Bld) [#/Vol] 0.6 10*3/uL 0 - 0.8 10*3/uL [facility] Work Phone: Monocytes/100 WBC (Bld) 8.3 % 2 - 10 % [facility] Work Phone: [phone] Platelet mean volume (Bld) [Entitic vol] 7.8 fL 7.4 - 10.4 fL [facility] Work Phone: [phone] Platelets (Bld) [#/Vol] 303 10*3/uL 140 - 440 10*3/uL [facility] Work Phone: [phone] RBC (Bld) [#/Vol] 3.94 10*6/uL Low 4.4 - 5.9 10*6/uL [facility] Work Phone: [phone] WBC (Bld) [#/Vol] 7.5 10*3/uL 3.6 - 10.7 10*3/uL [facility] Work Phone: [phone] Hepatic Function Panelon Albumin [Mass/Vol] 4.3 g/dL 3.5 - 5 g/dL [facility] Work Phone: [phone] ALP [Catalytic activity/Vol] 142 U/L High 38 - 126 U/L [facility] Work Phone: [phone] ALT [Catalytic activity/Vol] 43 U/L 13 - 69 U/L [facility] Work Phone: [phone] AST [Catalytic activity/Vol] 25 U/L 15 - 46 U/L [facility] Work Phone: [phone] Bilirubin Ql (U) 0.4 mg/dL 0.2 - 1.3 mg/dL [facility] Work Phone: [phone] Bilirubin.direct [Mass/Vol] 0.0 mg/dL 0 - 0.3 mg/dL [facility] Work Phone: [phone] Protein [Mass/Vol] 6.7 g/dL 6.3 - 8.2 g/dL [facility] Work Phone: [phone] Magnesiumon 11-19-2019 Magnesium [Mass/Vol] 1.5 mg/dL Low 1.6 - 2 .3 mg/dL [facility] Work Phone: [phone] Otheron 11-19-2019 Test Performed by [facility], [facility] [address] , [place], [place] [address] Work Phone: [phone] Interpretation and review of laboratory results Abnormal [facility] Work Phone: [phone] Test Performed by [employer], [address] , [place], [place] [address] [facility] Work Phone: 1 Phosphoruson 11-19-2019 Phosphate [Mass/Vol] 4.1 mg/dL 2.5 - 4 .5 mg/dL [facility] Work Phone: 1 RBC MORPHOLOGYon 11-19-2019 Anisocytosis Ql (Bld) Slight [facility] Work Phone: 1 RBC morphology finding Nom (Bld) ABNORMAL [facility] Work Phone: 1 Sodium [Moles/Vol] Slight [facility] Work Phone: 1 Tacrolimus Levelon 0 Fk506 (Tacrolimus) 16.2 ug/L 5 - 20 ug/L [facility] Work Phone: 1 Comment on above: Test performed using Chemiluminescent Microparticle Immunoassay (CMIA; [employer] Double) Test Performed by [employer], [address] [place] [address] [employer] Work Phone: 1 Uric Acidon 11-19-2019 Urate [Mass/Vol] 5.6 mg/dL 2.5 - 8.5 mg/dL [facility] Work Phone: 1 Basic Metabolic PanelOrdered By: Nick Lopez on 11-05-2019 Anion gap [Moles/Vol] 7 mmol/L [facility] Work Phone: [phone] Calcium [Mass/Vol] 10.0 mg/dL 8.4 - 10. 4 mg/dL [facility] Work Phone: 1 Chloride [Moles/Vol] 111 mmol/L High 98 - 10 7 mmol/L [facility] Work Phone: CO2 [Moles/Vol] 26 mmol/L 22 - 30 mmol/L [facility] Work Phone: 1 Creatinine [Mass/Vol] 1.4 mg/dL High 0.52 - 1.25 mg/dL [facility] Work Phone: [phone] EGFR IF NonAfrican [place] 52.1 mL/min >60 [facility] Work Phone: 1 Comment on above: Source- MDRD equatio n with creatinine calibration to IDMS(NKDEP) eGFR not recommended for drug dose adjustment GFR/1.73 sq M.predicted among blacks MDRD (S/P/Bld) [Vol rate/Area] mL/min/{1.73_m2} >60 mL/min [employer] Work Phone: [phone] Glucose [Mass/Vol] 122 mg/dL High 70 - 100 mg/dL [employer] Work Phone: [phone] Interpretation and review of laboratory results Abnormal [facility] Work Phone: Potassium [Moles/Vol] 5.0 mmol/L 3.5 - 5.1 mmol/L [employer] Work Phone: [phone] Sodium [Moles/Vol] 143 mmol/L 135 - 145 mmol/L [employer] Work Phone: [phone] Urea nitrogen [Mass/Vol] 32 mg/dL High 7 - 20 mg/dL [employer] Work Phone: [phone] CBC Auto DifferentialOrdered By: Nick Lopez on 11-05-2019 Absolute Baso # 0.0 10*3/uL 0 - 0.2 10*3/uL [employer] Work Phone: [phone] Absolute Neut # 7.1 10*3/uL High 1.8 - 7 10*3/uL [employer] Work Phone: [phone] Basophils/100 WBC (Bld) 0.2 % 0 - 2 % S [facility] Work Phone: Eosinophils (Bld) [#/Vol] 0.0 10*3/uL 0 - 0.5 10*3/uL [employer] Work Phone: [phone] Eosinophils/100 WBC (Bld) 0.5 % Low 1 - 6 % [employer] Work Phone: [phone] Erythrocyte distribution width (RBC) [Ratio] 17.6 % High 11.5 - 14.5 % [employer] Work Phone: [phone] Granulocytes/100 WBC (Bld) 76.0 % 40 - 80 % [employer] Work Phone: Hematocrit (Bld) [Volume fraction] 39.8 % Low 40 - 52 % [employer] Work Phone: Hemoglobin (Bld) [Mass/Vol] 13.7 g/dL 13 - 18 g/dL [facility] Work Phone: Interpretation and review of laboratory results Abnormal [facility] Work Phone: 1 Lymphocytes (Bld) [#/Vol] 1.5 10*3/uL 1 - 4.3 10*3/uL [facility] [employer] Work Phone: Lymphocytes/100 WBC (Bld) 15.9 % Low 20 - 40 % [employer] Work Phone: MCH (RBC) [Entitic mass] 37.5 pg High 26 - 34 pg [employer] Work Phone: MCHC 34.3 % 32 - 36 % [facility] Work Phone: MCV (RBC) [Entitic vol] 109.3 fL High 80 - 98 fL [email or web address] Work Phone: Monocytes (Bld) [#/Vol] 0.7 10*3/uL 0 - 0.8 10*3/uL [facility] Work Phone: 1 Monocytes/100 WBC (Bld) 7.4 % 2 - 10 % [email or web address] Work Phone: Platelet mean volume (Bld) [Entitic vol] 8.1 fL 7.4 - 10.4 fL [facility] Work Phone: Platelets (Bld) [#/Vol] 210 10*3/uL 140 - 440 10*3/uL [facility] Work Phone: RBC (Bld) [#/Vol] 3.65 10*6/uL Low 4.4 - 5.9 10*6/uL [facility] Work Phone: WBC (Bld) [#/Vol] 9.3 10*3/uL 3.6 - 10.7 10*3/uL [facility] Work Phone: [phone] MagnesiumOrdered By: Nick carrera on 11-05-2019 Magnesium [Mass/Vol] 1.6 mg/dL 1.6 - 2 .3 mg/dL [facility] Work Phone: [phone] Panel InformationOrdered By: Nick Lopez on 11-05-2019 Test Performed by [employer], [address] , [place], [place] [address] [facility] Work Phone: [phone] Test Performed by [employer], [address] , [place], [place] [address] [facility] Work Phone: 1 PhosphorusOrdered By: Nick Lopez on 11-05-2019 Phosphate [Mass/Vol] 4.2 mg/dL 2.5 - 4 .5 mg/dL [facility] Work Phone: 1 RBC MORPHOLOGYOrdered By: Devon Lopez on 11-05-2019 Anisocytosis Ql (Bld) Slight [facility] Work Phone: [phone] RBC morphology finding Nom (Bld) ABNORMAL [facility] Work Phone: 1 Tacrolimus LevelOrdered By: Nick Lopez on 11-05-2019 Fk506 (Tacrolimus) 12.8 ug/L 5 - 20 ug/L [facility] Work Phone: Comment on above: Test performed using Chemiluminescent Microparticle Immunoassay (CMIA; [employer] Double) Test Performed by [employer], [address] [place] [address] [employer] Work Phone: [phone] Basic Metabolic PanelOrdered By: Nick Lopez on 10-29-2019 Anion gap [Moles/Vol] 9 mmol/L [facility] Work Phone: [phone] Calcium [Mass/Vol] 10.2 mg/dL 8.4 - 10. 4 mg/dL [facility] Work Phone: 1 Chloride [Moles/Vol] 104 mmol/L 98 - 10 7 mmol/L [facility] Work Phone: CO2 [Moles/Vol] 26 mmol/L 22 - 30 mmol/L [facility] Work Phone: [phone] Creatinine [Mass/Vol] 1.08 mg/dL 0.52 - 1.25 mg/dL [facility] Work Phone: [phone] EGFR IF NonAfrican [place] >60.0 >60 mL/min [facility] Work Phone: Comment on above: Source- MDRD equatio n with creatinine calibration to IDMS(NKDEP) eGFR not recommended for drug dose adjustment GFR/1.73 sq M.predicted among blacks MDRD (S/P/Bld) [Vol rate/Area] mL/min/{1.73_m2} >60 mL/min [facility] [employer] Work Phone: [phone] Glucose [Mass/Vol] 120 mg/dL High 70 - 100 mg/dL [employer] Work Phone: [phone] Interpretation and review of laboratory results Abnormal [employer] Work Phone: [phone] Potassium [Moles/Vol] 5.0 mmol/L 3.5 - 5.1 mmol/L [employer] Work Phone: [phone] Sodium [Moles/Vol] 138 mmol/L 135 - 145 mmol/L [employer] Work Phone: [phone] Urea nitrogen [Mass/Vol] 28 mg/dL High 7 - 20 mg/dL [employer] Work Phone: [phone] Auto DifferentialOrdered By: Nick Lopez on 10-29-2019 Absolute Baso # 0.0 10*3/uL 0 - 0.2 10*3/uL [employer] Work Phone: [phone] Absolute Neut # 7.9 10*3/uL High 1.8 - 7 10*3/uL [employer] Work Phone: [phone] Basophils/100 WBC (Bld) 0.2 % 0 - 2 % S [facility] Work Phone: [phone] Eosinophils (Bld) [#/Vol] 0.0 10*3/uL 0 - 0.5 10*3/uL [employer] Work Phone: [phone] Eosinophils/100 WBC (Bld) 0.1 % Low 1 - 6 % [employer] Work Phone: [phone] Erythrocyte distribution width (RBC) [Ratio] 16.7 % High 11.5 - 14.5 % [employer] Work Phone: [phone] Granulocytes/100 WBC (Bld) 77.3 % 40 - 80 % [employer] Work Phone: [phone] Hematocrit (Bld) [Volume fraction] 41.8 % 40 - 52 % [facility] Work Phone: 1 Hemoglobin (Bld) [Mass/Vol] 14.5 g/dL 13 - 18 g/dL [facility] Work Phone: Interpretation and review of laboratory results Abnormal [facility] Work Phone: Lymphocytes (Bld) [#/Vol] 1.4 10*3/uL 1 - 4.3 10*3/uL [facility] Work Phone: Lymphocytes/100 WBC (Bld) 13.4 % Low 20 - 40 % [facility] Work Phone: MCH (RBC) [Entitic mass] 37.0 pg High 26 - 34 pg [facility] Work Phone: MCHC 34.8 % 32 - 36 % [facility] Work Phone: MCV (RBC) [Entitic vol] 106.3 fL High 80 - 98 fL [email or web address] Work Phone: Monocytes (Bld) [#/Vol] 0.9 10*3/uL High 0 - 0.8 10*3/uL [facility] Work Phone: Monocytes/100 WBC (Bld) 9.0 % 2 - 10 % [email or web address] Work Phone: Platelet mean volume (Bld) [Entitic vol] 7.8 fL 7.4 - 10.4 fL [facility] Work Phone: Platelets (Bld) [#/Vol] 273 10*3/uL 140 - 440 10*3/uL [facility] Work Phone: RBC (Bld) [#/Vol] 3.93 10*6/uL Low 4.4 - 5.9 10*6/uL [facility] Work Phone: WBC (Bld) [#/Vol] 10.2 10*3/uL 3.6 - 10.7 10*3/uL [facility] Work Phone: Test Performed by [facility], [address] [place], [place] [address] , [place], [place] [address] [facility] Work Phone: MagnesiumOrdered By: Nick carrera on 10-29-2019 Magnesium [Mass/Vol] 1.7 mg/dL 1.6 - 2 .3 mg/dL [facility] Work Phone: 1 No Panel InformationOrdered By: Nick Lopez on 10-29-2019 Test Performed by [employer], [address] , [place] [address] [facility] Work Phone: 1 RBC MORPHOLOGYOrdered By: Devon Lopez on 10-29-2019 Anisocytosis Ql (Bld) Slight [facility] Work Phone: 1 Macrocytosis Slight [facility] Work Phone: 1 RBC morphology finding Nom (Bld) ABNORMAL [facility] Work Phone: Test Performed by [employer], [address] [place] [address] [facility] Work Phone: Bilirubin, DirectOrdered By: Nick Lopez on 10-23-2019 Bilirubin.indirect [Mass/Vol] 0.0 mg/dL 0 - 0.3 mg/dL [facility] Work Phone: 1 CBC Auto DifferentialOrdered By: Nick Lopez on 10-23-2019 Absolute Baso # 0.0 10*3/uL 0 - 0.2 10*3/uL [facility] Work Phone: Absolute Neut # 5.0 10*3/uL 1.8 - 7 10*3/uL [facility] Work Phone: Basophils/100 WBC (Bld) 0.4 % 0 - 2 % S [facility] Work Phone: Eosinophils (Bld) [#/Vol] 0.0 10*3/uL 0 - 0.5 10*3/uL [facility] Work Phone: Eosinophils/100 WBC (Bld) 0.5 % Low 1 - 6 % [facility] Work Phone: Erythrocyte distribution width (RBC) [Ratio] 16.3 % High 11.5 - 14.5 % [facility] Work Phone: Granulocytes/100 WBC (Bld) 68.9 % 40 - 80 % [facility] Work Phone: 1 Hematocrit (Bld) [Volume fraction] 39.4 % Low 40 - 52 % [facility] Work Phone: 1 Hemoglobin (Bld) [Mass/Vol] 13.7 g/dL 13 - 18 g/dL [employer] Work Phone: [phone] Interpretation and review of laboratory results Abnormal [facility] Work Phone: 1 Lymphocytes (Bld) [#/Vol] 1.6 10*3/uL 1 - 4.3 10*3/uL [employer] Work Phone: 1 Lymphocytes/100 WBC (Bld) 22.5 % 20 - 40 % [employer] Work Phone: 1 MCH (RBC) [Entitic mass] 36.9 pg High 26 - 34 pg [employer] Work Phone: 1 MCHC 34.8 % 32 - 36 % [facility] Work Phone: 1 MCV (RBC) [Entitic vol] 106.2 fL High 80 - 98 fL [facility] [employer] Work Phone: 1 Monocytes (Bld) [#/Vol] 0.6 10*3/uL 0 - 0.8 10*3/uL [facility] Work Phone: 1 Monocytes/100 WBC (Bld) 7.7 % 2 - 10 % [facility] [employer] Work Phone: 1 Platelet mean volume (Bld) [Entitic vol] 8.1 fL 7.4 - 10.4 fL [facility] Work Phone: [phone] 22 Platelets (Bld) [#/Vol] 259 10*3/uL 140 - 440 10*3/uL [employer] Work Phone: 22 RBC (Bld) [#/Vol] 3.71 10*6/uL Low 4.4 - 5.9 10*6/uL [facility] Work Phone: 22 WBC (Bld) [#/Vol] 7.2 10*3/uL 3.6 - 10.7 10*3/uL [employer] Work Phone: 1 Comprehensive Metabolic Pane lOrdered By: Nick Lopez on 10-23-2019 Albumin [Mass/Vol] 4.3 g/dL 3.5 - 5 g/dL [facility] Work Phone: [phone] ALP [Catalytic activity/Vol] 86 U/L 38 - 126 U/L [facility] Work Phone: [phone] ALT [Catalytic activity/Vol] 50 U/L 13 - 69 U/L [facility] Work Phone: [phone] Anion gap [Moles/Vol] 11 mmol/L [facility] Work Phone: [phone] AST [Catalytic activity/Vol] 29 U/L 15 - 46 U/L [facility] Work Phone: [phone] Bilirubin [Mass/Vol] 0.5 mg/dL 0.2 - 1 .3 mg/dL [facility] Work Phone: [phone] Calcium [Mass/Vol] 10.3 mg/dL 8.4 - 10. 4 mg/dL [facility] Work Phone: [phone] Chloride [Moles/Vol] 107 mmol/L 98 - 10 7 mmol/L [facility] Work Phone: [phone] CO2 [Moles/Vol] 24 mmol/L 22 - 30 mmol/L [facility] Work Phone: [phone] Creatinine [Mass/Vol] 1.45 mg/dL High 0.52 - 1.25 mg/dL [facility] Work Phone: [phone] EGFR IF NonAfrican [place] 50.1 mL/min >60 [facility] Work Phone: [phone] Comment on above: Source- MDRD equatio n with creatinine calibration to IDMS(NKDEP) eGFR not recommended for drug dose adjustment GFR/1.73 sq M.predicted among blacks MDRD (S/P/Bld) [Vol rate/Area] mL/min/{1.73_m2} >60 mL/min [facility] Work Phone: [phone] Glucose [Mass/Vol] 113 mg/dL High 70 - 100 mg/dL [facility] Work Phone: [phone] Interpretation and review of laboratory results Abnormal [facility] Work Phone: [phone] Potassium [Moles/Vol] 4.7 mmol/L 3.5 - 5.1 mmol/L [employer] Work Phone: 1 Protein [Mass/Vol] 6.6 g/dL 6.3 - 8.2 g/dL [facility] Work Phone: Sodium [Moles/Vol] 141 mmol/L 135 - 145 mmol/L [employer] Work Phone: 1 Urea nitrogen [Mass/Vol] 36 mg/dL High 7 - 20 mg/dL [facility] Work Phone: 1 Hemoglobin [id number] By: Devon Lopez on 10-23-2019 eAG 128 mg/dL [employer] Work Phone: 1 HbA1c (Bld) [Mass fraction] 6.1 % High 4 - 5.7 % [facility] Work Phone: Comment on above: --HgbA1C levels may not be accurate in patients who have renal disease, received recent blood transfusions, are anemic, or who have dyshemoglobinemia. Interpretation and review of laboratory results Abnormal [facility] Work Phone: Test Performed by [facility], [address] [place] [address] [place] Work Phone: IgAOrdered By: Nick Lopez on 10-23-2019 IgA [Mass/Vol] 87.6 mg/dL 70 - 400 mg/dL [facility] Work Phone: IgGOrdered By: Nick Lopez on 10-23-2019 IgG [Mass/Vol] 626.3 mg/dL Low 700 - 1600 mg/dL [facility] Work Phone: IgMOrdered By: Nick Lopez on 10-23-2019 IgM [Mass/Vol] 35.3 mg/dL Low 40 - 230 mg/dL [facility] Work Phone: Iron and TIBCOrdered By: Robel Lopez on 10-23-2019 Iron [Mass/Vol] 77 ug/dL 49 - 181 ug/dL [employer] Work Phone: [phone] Sat 28 % 15 - 50 % [facility] Work Phone: 1 TIBC 271 ug/dL 261 - 497 ug/dL [employer] Work Phone: 1 Test Performed by [employer], [address] Work Phone: MagnesiumOrdered By: Nick carrera on 10-23-2019 Magnesium [Mass/Vol] 1.7 mg/dL 1.6 - 2 .3 mg/dL [facility] Work Phone: 1 No Panel InformationOrdered By: Nick Lopez on 10-23-2019 Interpretation and review of laboratory results Abnormal [facility] Work Phone: 1 Test Performed by [employer], [address] Work Phone: Test Performed by [employer], [address] Work Phone: 1 Test Performed by [employer], [address] Work Phone: PhosphorusOrdered By: Nick Lopez on 10-23-2019 Phosphate [Mass/Vol] 3.9 mg/dL 2.5 - 4 .5 mg/dL [facility] Work Phone: RBC MORPHOLOGYOrdered By: Devon Loepz on 10-23-2019 Anisocytosis Ql (Bld) Slight [facility] Work Phone: Macrocytosis Moderate [facility] Work Phone: RBC morphology finding Nom (Bld) ABNORMAL [facility] Work Phone: TransferrinOrdered By: Nick Lopez on 10-23-2019 Transferrin [Mass/Vol] 213 mg/dL 206 - 381 mg/dL [facility] Work Phone: Test Performed by [employer], [address] [place], [address] Work Phone: Uric AcidOrdered By: Nick carrera on 10-23-2019 Urate [Mass/Vol] 7.2 mg/dL 2.5 - 8.5 mg/dL [facility] Work Phone: Basic Metabolic PanelOrdered By: Unknown Result on 10-18-2019 Anion gap [Moles/Vol] 11 mmol/L [facility] Work Phone: [phone] Calcium [Mass/Vol] 10.5 mg/dL High 8.4 - 10. 4 mg/dL [facility] Work Phone: [phone] Chloride [Moles/Vol] 109 mmol/L High 98 - 10 7 mmol/L [facility] Work Phone: [phone] CO2 [Moles/Vol] 22 mmol/L 22 - 30 mmol/L [facility] Work Phone: [phone] Creatinine [Mass/Vol] 1.48 mg/dL High 0.52 - 1.25 mg/dL [facility] Work Phone: [phone] EGFR IF NonAfrican [place] 48.9 mL/min >60 [facility] Work Phone: [phone] Comment on above: Source- MDRD equatio n with creatinine calibration to IDMS(NKDEP) eGFR not recommended for drug dose adjustment GFR/1.73 sq M.predicted among blacks MDRD (S/P/Bld) [Vol rate/Area] 59.3 mL/min/{1.73_m2} >60 [facility] Work Phone: [phone] Glucose [Mass/Vol] 117 mg/dL High 70 - 100 mg/dL [facility] Work Phone: [phone] Potassium [Moles/Vol] 4.9 mmol/L 3.5 - 5.1 mmol/L [facility] Work Phone: [phone] Sodium [Moles/Vol] 142 mmol/L 135 - 145 mmol/L [facility] Work Phone: [phone] Urea nitrogen [Mass/Vol] 26 mg/dL High 7 - 20 mg/dL [facility] Work Phone: [phone] CBC Auto DifferentialOrdered By: Unknown Result on 10-18-2019 Absolute Baso # 0.0 10*3/uL 0 - 0.2 10*3/uL [facility] Work Phone: [phone] Absolute Neut # 5.8 10*3/uL 1.8 - 7 10*3/uL [facility] Work Phone: [phone] Basophils/100 WBC (Bld) 0.2 % 0 - 2 % [facility] Work Phone: 1 Eosinophils (Bld) [#/Vol] 0.0 10*3/uL 0 - 0.5 10*3/uL [employer] Work Phone: Eosinophils/100 WBC (Bld) 0.1 % Low 1 - 6 % [employer] Work Phone: 1 Erythrocyte distribution width (RBC) [Ratio] 16.2 % High 11.5 - 14.5 % [employer] Work Phone: Granulocytes/100 WBC (Bld) 76.0 % 40 - 80 % [employer] Work Phone: Hematocrit (Bld) [Volume fraction] 39.9 % Low 40 - 52 % [employer] Work Phone: Hemoglobin (Bld) [Mass/Vol] 13.5 g/dL 13 - 18 g/dL [facility] [employer] Work Phone: Interpretation and review of laboratory results Abnormal [employer] Work Phone: Lymphocytes (Bld) [#/Vol] 1.2 10*3/uL 1 - 4.3 10*3/uL [facility] [employer] Work Phone: Lymphocytes/100 WBC (Bld) 15.3 % Low 20 - 40 % [employer] Work Phone: MCH (RBC) [Entitic mass] 36.0 pg High 26 - 34 pg [employer] Work Phone: MCHC 33.8 % 32 - 36 % [facility] Work Phone: MCV (RBC) [Entitic vol] 106.7 fL High 80 - 98 fL [email or web address] Work Phone: Monocytes (Bld) [#/Vol] 0.6 10*3/uL 0 - 0.8 10*3/uL [facility] Work Phone: Monocytes/100 WBC (Bld) 8.4 % 2 - 10 % [email or web address] Work Phone: Platelet mean volume (Bld) [Entitic vol] 8.1 fL 7.4 - 10.4 fL [facility] [employer] Work Phone: 1 Platelets (Bld) [#/Vol] 249 10*3/uL 140 - 440 10*3/uL [facility] Work Phone: RBC (Bld) [#/Vol] 3.74 10*6/uL Low 4.4 - 5.9 10*6/uL [facility] Work Phone: WBC (Bld) [#/Vol] 7.7 10*3/uL 3.6 - 10.7 10*3/uL [facility] Work Phone: 1 MagnesiumOrdered By: Unknown Result on 10-18-2019 Magnesium [Mass/Vol] 1.5 mg/dL Low 1.6 - 2 .3 mg/dL [facility] [employer] Work Phone: No Panel InformationOrdered By: Unknown Result on 10-18-2019 Test Performed by [employer], [facility] [address] Work Phone: Interpretation and review of laboratory results Abnormal [facility] Work Phone: Test Performed by [employer], [facility] [address] [place] [address] [facility] Work Phone: RBC MORPHOLOGYOrdered By: Un known Result on 10-18-2019 Macrocytosis Moderate [facility] Work Phone: RBC morphology finding Nom (Bld) ABNORMAL [facility] Work Phone: Basic Metabolic PanelOrdered By: Unknown Result on 10-11-2019 Anion gap [Moles/Vol] 11 mmol/L [facility] Work Phone: Calcium [Mass/Vol] 10.3 mg/dL 8.4 - 10. 4 mg/dL [facility] Work Phone: Chloride [Moles/Vol] 106 mmol/L 98 - 10 7 mmol/L [facility] Work Phone: CO2 [Moles/Vol] 24 mmol/L 22 - 30 mmol/L [facility] Work Phone: Creatinine [Mass/Vol] 1.35 mg/dL High 0.52 - 1.25 mg/dL [employer] Work Phone: [phone] EGFR IF NonAfrican [place] 54.4 mL/min >60 [facility] Work Phone: [phone] Comment on above: Source- MDRD equatio n with creatinine calibration to IDMS(NKDEP) eGFR not recommended for drug dose adjustment GFR/1.73 sq M.predicted among blacks MDRD (S/P/Bld) [Vol rate/Area] mL/min/{1.73_m2} >60 mL/min [facility] Work Phone: [phone] Glucose [Mass/Vol] 109 mg/dL High 70 - 100 mg/dL [facility] Work Phone: [phone] Interpretation and review of laboratory results Abnormal [facility] Work Phone: [phone] Potassium [Moles/Vol] 4.7 mmol/L 3.5 - 5.1 mmol/L [facility] Work Phone: [phone] Sodium [Moles/Vol] 141 mmol/L 135 - 145 mmol/L [facility] Work Phone: [phone] Urea nitrogen [Mass/Vol] 28 mg/dL High 7 - 20 mg/dL [facility] Work Phone: [phone] CBC Auto DifferentialOrdered By: Unknown Result on 10-11-2019 Absolute Baso # 0.0 10*3/uL 0 - 0.2 10*3/uL [facility] Work Phone: [phone] Absolute Neut # 4.7 10*3/uL 1.8 - 7 10*3/uL [facility] Work Phone: [phone] Basophils/100 WBC (Bld) 0.2 % 0 - 2 % [facility] Work Phone: [phone] Eosinophils (Bld) [#/Vol] 0.1 10*3/uL 0 - 0.5 10*3/uL [facility] [employer] Work Phone: [phone] Eosinophils/100 WBC (Bld) 0.7 % Low 1 - 6 % [facility] Work Phone: [phone] Erythrocyte distribution width (RBC) [Ratio] 15.7 % High 11.5 - 14.5 % [facility] Work Phone: Granulocytes/100 WBC (Bld) 65.7 % 40 - 80 % [employer] Work Phone: 1 Hematocrit (Bld) [Volume fraction] 39.7 % Low 40 - 52 % [employer] Work Phone: 1 Hemoglobin (Bld) [Mass/Vol] 13.5 g/dL 13 - 18 g/dL [facility] Work Phone: 1 Interpretation and review of laboratory results Abnormal [employer] Work Phone: 1 Lymphocytes (Bld) [#/Vol] 1.9 10*3/uL 1 - 4.3 10*3/uL [facility] [employer] Work Phone: 1 Lymphocytes/100 WBC (Bld) 25.7 % 20 - 40 % [employer] Work Phone: 1 MCH (RBC) [Entitic mass] 36.1 pg High 26 - 34 pg [employer] Work Phone: MCHC 34.1 % 32 - 36 % [facility] [employer] Work Phone: 1 MCV (RBC) [Entitic vol] 105.7 fL High 80 - 98 fL [facility] [employer] Work Phone: Monocytes (Bld) [#/Vol] 0.6 10*3/uL 0 - 0.8 10*3/uL [facility] Work Phone: 1 Monocytes/100 WBC (Bld) 7.7 % 2 - 10 % [facility] [employer] Work Phone: 1 Platelet mean volume (Bld) [Entitic vol] 8.0 fL 7.4 - 10.4 fL [employer] Work Phone: [phone] 22 Platelets (Bld) [#/Vol] 223 10*3/uL 140 - 440 10*3/uL [facility] [employer] Work Phone: 1 22 RBC (Bld) [#/Vol] 3.76 10*6/uL Low 4.4 - 5.9 10*6/uL [employer] Work Phone: 1 22 WBC (Bld) [#/Vol] 7.2 10*3/uL 3.6 - 10.7 10*3/uL [facility] [employer] Work Phone: [phone] MagnesiumOrdered By: Unknown Result on 10-11-2019 Magnesium [Mass/Vol] 1.6 mg/dL 1.6 - 2 .3 mg/dL [facility] Work Phone: No Panel InformationOrdered By: Unknown Result on 10-11-2019 Test Performed by [employer], [address] , [place] [address] [facility] Work Phone: 1 Test Performed by [employer], [address] , [address] Work Phone: 1 RBC MORPHOLOGYOrdered By: Un known Result on 10-11-2019 Anisocytosis Ql (Bld) Slight [facility] Work Phone: Macrocytosis Moderate [facility] Work Phone: RBC morphology finding Nom (Bld) ABNORMAL [facility] Work Phone: Bilirubin, DirectOrdered By: Unknown Result on 10-08-2019 Bilirubin.indirect [Mass/Vol] 0.0 mg/dL 0 - 0.3 mg/dL [facility] Work [facility]: 1 CBC Auto DifferentialOrdered By: Unknown Result on 10-08-2019 Absolute Baso # 0.0 10*3/uL 0 - 0.2 10*3/uL [facility] Work [facility]: Absolute Neut # 4.6 10*3/uL 1.8 - 7 10*3/uL [facility] Work Phone: Basophils/100 WBC (Bld) 0.2 % 0 - 2 % [facility] Work Phone: Eosinophils (Bld) [#/Vol] 0.1 10*3/uL 0 - 0.5 10*3/uL [facility] Work Phone: Eosinophils/100 WBC (Bld) 0.8 % Low 1 - 6 % [facility] Work Phone: Erythrocyte distribution width (RBC) [Ratio] 16.0 % High 11.5 - 14.5 % [facility] Work Phone: Granulocytes/100 WBC (Bld) 66.6 % 40 - 80 % [facility] Work Phone: [phone] Hematocrit (Bld) [Volume fraction] 38.0 % Low 40 - 52 % [employer] Work Phone: 1 Hemoglobin (Bld) [Mass/Vol] 12.9 g/dL Low 13 - 18 g/dL [employer] Work Phone: [phone] Interpretation and review of laboratory results Abnormal [facility] Work [facility]: 1 Lymphocytes (Bld) [#/Vol] 1.6 10*3/uL 1 - 4.3 10*3/uL [employer] Work Phone: 1 22 Lymphocytes/100 WBC (Bld) 23.7 % 20 - 40 % [employer] Work Phone: 1 MCH (RBC) [Entitic mass] 36.1 pg High 26 - 34 pg [employer] Work Phone: 1 MCHC 33.9 % 32 - 36 % [employer] Work Phone: 1 MCV (RBC) [Entitic vol] 106.6 fL High 80 - 98 fL [facility] [employer] Work Phone: 1 Monocytes (Bld) [#/Vol] 0.6 10*3/uL 0 - 0.8 10*3/uL [employer] Work Phone: 1 22 Monocytes/100 WBC (Bld) 8.7 % 2 - 10 % [email or web address] Work Phone: 1 Platelet mean volume (Bld) [Entitic vol] 8.0 fL 7.4 - 10.4 fL [employer] Work Phone: 1 22 Platelets (Bld) [#/Vol] 200 10*3/uL 140 - 440 10*3/uL [employer] Work Phone: 22 RBC (Bld) [#/Vol] 3.56 10*6/uL Low 4.4 - 5.9 10*6/uL [employer] Work Phone: 22 WBC (Bld) [#/Vol] 6.9 10*3/uL 3.6 - 10.7 10*3/uL [employer] Work Phone: [phone] Metabolic Pane lOrdered By: Unknown Result on 10-08-2019 Albumin [Mass/Vol] 4.1 g/dL 3.5 - 5 g/dL [facility] Work [facility]: [phone] [facility] [Catalytic activity/Vol] 97 U/L 38 - 126 U/L [facility] Work Phone: [phone] [Catalytic activity/Vol] 53 U/L 13 - 69 U/L [facility] Work Phone: [phone] Anion gap [Moles/Vol] 11 mmol/L [facility] Work Phone: [phone] AST [Catalytic activity/Vol] 26 U/L 15 - 46 U/L [facility] Work Phone: [phone] Bilirubin [Mass/Vol] 0.6 mg/dL 0.2 - 1 .3 mg/dL [facility] Work Phone: [phone] Calcium [Mass/Vol] 10.3 mg/dL 8.4 - 10. 4 mg/dL [facility] Work Phone: [phone] Chloride [Moles/Vol] 104 mmol/L 98 - 10 7 mmol/L [facility] Work Phone: [phone] CO2 [Moles/Vol] 26 mmol/L 22 - 30 mmol/L [facility] Work Phone: [phone] Creatinine [Mass/Vol] 1.67 mg/dL High 0.52 - 1.25 mg/dL [facility] Work Phone: [phone] EGFR IF NonAfrican [place] 42.5 mL/min >60 [facility] Work Phone: [phone] Comment on above: Source- MDRD equatio n with creatinine calibration to IDMS(NKDEP) eGFR not recommended for drug dose adjustment GFR/1.73 sq M.predicted among blacks MDRD (S/P/Bld) [Vol rate/Area] 51.6 mL/min/{1.73_m2} >60 [facility] Work Phone: [phone] Glucose [Mass/Vol] 112 mg/dL High 70 - 100 mg/dL [facility] Work Phone: [phone] Potassium [Moles/Vol] 4.7 mmol/L 3.5 - 5.1 mmol/L [facility] Work Phone: [phone] Protein [Mass/Vol] 6.3 g/dL 6.3 - 8.2 g/dL [facility] Work Phone: 1 Sodium [Moles/Vol] 141 mmol/L 135 - 145 mmol/L [facility] Work Phone: 1 Urea nitrogen [Mass/Vol] 44 mg/dL High 7 - 20 mg/dL [facility] Work Phone: [phone] MagnesiumOrdered By: Unknown Result on 10-08-2019 Magnesium [Mass/Vol] 1.8 mg/dL 1.6 - 2 .3 mg/dL [facility] Work Phone: [phone] No Panel InformationOrdered By: Unknown Result on 10-08-2019 Interpretation and review of laboratory results Abnormal [facility] Work Phone: 1 Test Performed by [employer], [facility] [address] [place], [place] [address] Work Phone: 1 Test Performed by [employer], [facility] [address] [place] [id number] [place] [address] Work Phone: PhosphorusOrdered By: Unknow n Result on 10-08-2019 Phosphate [Mass/Vol] 5.0 mg/dL High 2.5 - 4 .5 mg/dL [facility] Work Phone: 1 RBC MORPHOLOGYOrdered By: Un known Result on 10-08-2019 Anisocytosis Ql (Bld) Slight [facility] Work Phone: 1 Macrocytosis Slight [facility] Work Phone: 1 RBC morphology finding Nom (Bld) ABNORMAL [facility] Work Phone: Tacrolimus LevelOrdered By: Unknown Result on 10-08-2019 Fk506 (Tacrolimus) 17.2 ug/L 5 - 20 ug/L [facility] Work Phone: [phone] Comment on above: Test performed using Chemiluminescent Microparticle Immunoassay (CMIA; [employer] Double) Test Performed by [employer], [address] [place] [id number] [facility] Work Phone: [phone] Uric AcidOrdered By: Unknown Result on 10-08-2019 Urate [Mass/Vol] 7.4 mg/dL 2.5 - 8.5 mg/dL [facility] Work Phone: [phone] Basic Metabolic PanelOrdered By: Unknown Result on 10-04-2019 Anion gap [Moles/Vol] 8 mmol/L [facility] Work Phone: [phone] Calcium [Mass/Vol] 10.3 mg/dL 8.4 - 10. 4 mg/dL [facility] Work Phone: [phone] Chloride [Moles/Vol] 108 mmol/L High 98 - 10 7 mmol/L [facility] Work Phone: [phone] CO2 [Moles/Vol] 26 mmol/L 22 - 30 mmol/L [facility] Work Phone: [phone] Creatinine [Mass/Vol] 1.41 mg/dL High 0.52 - 1.25 mg/dL [facility] Work Phone: [phone] EGFR IF NonAfrican [place] 51.7 mL/min >60 [facility] Work Phone: [phone] Comment on above: Source- MDRD equatio n with creatinine calibration to IDMS(NKDEP) eGFR not recommended for drug dose adjustment GFR/1.73 sq M.predicted among blacks MDRD (S/P/Bld) [Vol rate/Area] mL/min/{1.73_m2} >60 mL/min [facility] Work Phone: [phone] Glucose [Mass/Vol] 107 mg/dL High 70 - 100 mg/dL [facility] Work Phone: [phone] Interpretation and review of laboratory results Abnormal [facility] Work Phone: [phone] Potassium [Moles/Vol] 5.2 mmol/L High 3.5 - 5.1 mmol/L [facility] Work Phone: [phone] Sodium [Moles/Vol] 142 mmol/L 135 - 145 mmol/L [facility] Work Phone: [phone] Urea nitrogen [Mass/Vol] 31 mg/dL High 7 - 20 mg/dL [facility] Work Phone: [phone] CBC Auto DifferentialOrdered By: Unknown Result on 10-04-2019 Absolute Baso # 0.0 10*3/uL 0 - 0.2 10*3/uL [facility] Work Phone: Absolute Neut # 4.8 10*3/uL 1.8 - 7 10*3/uL [facility] Work Phone: [phone] Basophils/100 WBC (Bld) 0.2 % 0 - 2 % [facility] Work Phone: Eosinophils (Bld) [#/Vol] 0.0 10*3/uL 0 - 0.5 10*3/uL [facility] Work Phone: 22 Eosinophils/100 WBC (Bld) 0.5 % Low 1 - 6 % [facility] Work Phone: 1 Erythrocyte distribution width (RBC) [Ratio] 15.6 % High 11.5 - 14.5 % [facility] Work Phone: Granulocytes/100 WBC (Bld) 63.6 % 40 - 80 % [facility] Work Phone: Hematocrit (Bld) [Volume fraction] 40.9 % 40 - 52 % [facility] Work Phone: Hemoglobin (Bld) [Mass/Vol] 14.3 g/dL 13 - 18 g/dL [facility] Work Phone: Interpretation and review of laboratory results Abnormal [facility] Work Phone: Lymphocytes (Bld) [#/Vol] 2.0 10*3/uL 1 - 4.3 10*3/uL [facility] Work Phone: Lymphocytes/100 WBC (Bld) 26.7 % 20 - 40 % [facility] Work Phone: MCH (RBC) [Entitic mass] 37.0 pg High 26 - 34 pg [facility] Work Phone: MCHC 34.9 % 32 - 36 % [facility] Work Phone: 1 MCV (RBC) [Entitic vol] 106.0 fL High 80 - 98 fL [facility] Work Phone: Monocytes (Bld) [#/Vol] 0.7 10*3/uL 0 - 0.8 10*3/uL [facility] Work Phone: Monocytes/100 WBC (Bld) 9.0 % 2 - 10 % [facility] Work Phone: 1 Platelet mean volume (Bld) [Entitic vol] 8.2 fL 7.4 - 10.4 fL [facility] Work Phone: 1 Platelets (Bld) [#/Vol] 239 10*3/uL 140 - 440 10*3/uL [facility] Work Phone: RBC (Bld) [#/Vol] 3.86 10*6/uL Low 4.4 - 5.9 10*6/uL [facility] Work Phone: 1 WBC (Bld) [#/Vol] 7.5 10*3/uL 3.6 - 10.7 10*3/uL [facility] Work Phone: 1 Test Performed by [employer], [address] , [place], [place] [id number] [place], [place] [address] Work Phone: MagnesiumOrdered By: Unknown Result on 10-04-2019 Magnesium [Mass/Vol] 1.7 mg/dL 1.6 - 2 .3 mg/dL [facility] Work Phone: [phone] No Panel InformationOrdered By: Unknown Result on 10-04-2019 Test Performed by [employer], [address] , [address] Work Phone: RBC MORPHOLOGYOrdered By: Un known Result on 10-04-2019 Anisocytosis Ql (Bld) Slight [facility] Work Phone: Macrocytosis Slight [facility] Work Phone: RBC morphology finding Nom (Bld) ABNORMAL [facility] Work Phone: 1 Test Performed by [employer], [address] , [place], [place] [id number] [place], [place] [address]A Work Phone: Basic Metabolic PanelOrdered By: Unknown Result on 10-01-2019 Anion gap [Moles/Vol] 10 mmol/L [facility] Work Phone: [phone] Calcium [Mass/Vol] 11.0 mg/dL High 8.4 - 10. 4 mg/dL [facility] Work [phone] Chloride [Moles/Vol] 104 mmol/L 98 - 10 7 mmol/L [facility] Work Phone: [phone] CO2 [Moles/Vol] 28 mmol/L 22 - 30 mmol/L [facility] Work Phone: [phone] Creatinine [Mass/Vol] 1.07 mg/dL 0.52 - 1.25 mg/dL [facility] Work Phone: [phone] EGFR IF NonAfrican [place] >60.0 >60 mL/min [facility] Work Phone: [phone] Comment on above: Source- MDRD equatio n with creatinine calibration to IDMS(NKDEP) eGFR not recommended for drug dose adjustment GFR/1.73 sq M.predicted among blacks MDRD (S/P/Bld) [Vol rate/Area] mL/min/{1.73_m2} >60 mL/min [facility] Work Phone: [phone] Glucose [Mass/Vol] 93 mg/dL 70 - 100 mg/dL [facility] Work Phone: [phone] Potassium [Moles/Vol] 4.9 mmol/L 3.5 - 5.1 mmol/L [facility] Work Phone: [phone] Sodium [Moles/Vol] 142 mmol/L 135 - 145 mmol/L [facility] Work Phone: [phone] Urea nitrogen [Mass/Vol] 29 mg/dL High 7 - 20 mg/dL [facility] Work Phone: [phone] CBC Auto DifferentialOrdered By: Unknown Result on 10-01-2019 Absolute Baso # 0.0 10*3/uL 0 - 0.2 10*3/uL [facility] Work Phone: Absolute Neut # 4.2 10*3/uL 1.8 - 7 10*3/uL [facility] Work Phone: Basophils/100 WBC (Bld) 0.2 % 0 - 2 % [facility] Work Phone: Eosinophils (Bld) [#/Vol] 0.1 10*3/uL 0 - 0.5 10*3/uL [facility] Work Phone: Eosinophils/100 WBC (Bld) 1.1 % 1 - 6 % [facility] Work Phone: 1 Erythrocyte distribution width (RBC) [Ratio] 15.6 % High 11.5 - 14.5 % [facility] Work Phone: 1 Granulocytes/100 WBC (Bld) 59.8 % 40 - 80 % [facility] Work Phone: 1 Hematocrit (Bld) [Volume fraction] 42.3 % 40 - 52 % [facility] Work Phone: 1 Hemoglobin (Bld) [Mass/Vol] 14.5 g/dL 13 - 18 g/dL [facility] Work Phone: 1 Interpretation and review of laboratory results Abnormal [employer] Work Phone: 1 Lymphocytes (Bld) [#/Vol] 2.1 10*3/uL 1 - 4.3 10*3/uL [employer] Work Phone: 1 Lymphocytes/100 WBC (Bld) 30.2 % 20 - 40 % [employer] Work Phone: 1 MCH (RBC) [Entitic mass] 36.1 pg High 26 - 34 pg [facility] Work Phone: 1 MCHC 34.2 % 32 - 36 % [facility] Work Phone: 1 MCV (RBC) [Entitic vol] 105.4 fL High 80 - 98 fL [email or web address] Work Phone: Monocytes (Bld) [#/Vol] 0.6 10*3/uL 0 - 0.8 10*3/uL [facility] Work Phone: [phone] 22 Monocytes/100 WBC (Bld) 8.7 % 2 - 10 % [email or web address] Work Phone: 1 Platelet mean volume (Bld) [Entitic vol] 8.1 fL 7.4 - 10.4 fL [facility] Work Phone: 1 Platelets (Bld) [#/Vol] 239 10*3/uL 140 - 440 10*3/uL [facility] Work Phone: RBC (Bld) [#/Vol] 4.02 10*6/uL Low 4.4 - 5.9 10*6/uL [facility] Work Phone: 1 WBC (Bld) [#/Vol] 7.1 10*3/uL 3.6 - 10.7 10*3/uL [facility] Work Phone: 1 MagnesiumOrdered By: Unknown Result on 10-01-2019 Magnesium [Mass/Vol] 1.5 mg/dL Low 1.6 - 2 .3 mg/dL [facility] Work Phone: 1 No Panel InformationOrdered By: Unknown Result on 10-01-2019 Interpretation and review of laboratory results Abnormal [facility] Work Phone: 1 Test Performed by [employer], [facility] [address] [place] [address] [facility] Work Phone: Test Performed by [employer], [facility] [address] [place] [address] [facility] Work Phone: 1 RBC MORPHOLOGYOrdered By: Un known Result on 10-01-2019 Anisocytosis Ql (Bld) Slight [facility] Work Phone: Macrocytosis Slight [facility] Work Phone: 1 RBC morphology finding Nom (Bld) ABNORMAL [facility] Work Phone: Tacrolimus LevelOrdered By: Unknown Result on 10-01-2019 Fk506 (Tacrolimus) 11.2 ug/L 5 - 20 ug/L [facility] Work Phone: Comment on above: Test performed using Chemiluminescent Microparticle Immunoassay (CMIA; [employer] Double) Test Performed by [employer], [address] [place] [address] [facility] Work Phone: Basic Metabolic PanelOrdered By: Unknown Result on 09-28-2019 Anion gap [Moles/Vol] 10 mmol/L [facility] Work Phone: 1 Calcium [Mass/Vol] 10.2 mg/dL 8.4 - 10. 4 mg/dL [facility] Work Phone: 1 Chloride [Moles/Vol] 106 mmol/L 98 - 10 7 mmol/L [facility] Work Phone: CO2 [Moles/Vol] 25 mmol/L 22 - 30 mmol/L [facility] Work Phone: [phone] Creatinine [Mass/Vol] 1.06 mg/dL 0.52 - 1.25 mg/dL [facility] Work Phone: [phone] EGFR IF NonAfrican [place] >60.0 >60 mL/min [facility] Work Phone: [phone] Comment on above: Source- MDRD equatio n with creatinine calibration to IDMS(NKDEP) eGFR not recommended for drug dose adjustment GFR/1.73 sq M.predicted among blacks MDRD (S/P/Bld) [Vol rate/Area] mL/min/{1.73_m2} >60 mL/min [facility] Work Phone: [phone] Glucose [Mass/Vol] 99 mg/dL 70 - 100 mg/dL [facility] Work Phone: [phone] Interpretation and review of laboratory results Abnormal [facility] Work Phone: [phone] Potassium [Moles/Vol] 4.6 mmol/L 3.5 - 5.1 mmol/L [facility] Work Phone: [phone] Sodium [Moles/Vol] 141 mmol/L 135 - 145 mmol/L [facility] Work Phone: [phone] Urea nitrogen [Mass/Vol] 21 mg/dL High 7 - 20 mg/dL [facility] Work Phone: [phone] CBC Auto DifferentialOrdered By: Unknown Result on 09-28-2019 Absolute Baso # 0.0 10*3/uL 0 - 0.2 10*3/uL [facility] Work Phone: Absolute Neut # 3.9 10*3/uL 1.8 - 7 10*3/uL [facility] Work Phone: Basophils/100 WBC (Bld) 0.2 % 0 - 2 % [facility] Work Phone: [phone] Eosinophils (Bld) [#/Vol] 0.0 10*3/uL 0 - 0.5 10*3/uL [facility] Work Phone: Eosinophils/100 WBC (Bld) 0.6 % Low 1 - 6 % [facility] Work Phone: [phone] Erythrocyte distribution width (RBC) [Ratio] 15.4 % High 11.5 - 14.5 % [facility] Work Phone: 1 Granulocytes/100 WBC (Bld) 59.6 % 40 - 80 % [facility] Work Phone: Hematocrit (Bld) [Volume fraction] 38.7 % Low 40 - 52 % [facility] Work Phone: Hemoglobin (Bld) [Mass/Vol] 13.2 g/dL 13 - 18 g/dL [facility] Work Phone: 1 Interpretation and review of laboratory results Abnormal [employer] Work Phone: 1 Lymphocytes (Bld) [#/Vol] 2.1 10*3/uL 1 - 4.3 10*3/uL [employer] Work Phone: Lymphocytes/100 WBC (Bld) 31.3 % 20 - 40 % [facility] Work Phone: 1 MCH (RBC) [Entitic mass] 36.0 pg High 26 - 34 pg [facility] Work Phone: MCHC 34.2 % 32 - 36 % [facility] Work Phone: MCV (RBC) [Entitic vol] 105.3 fL High 80 - 98 fL S [employer] Work Phone: Monocytes (Bld) [#/Vol] 0.5 10*3/uL 0 - 0.8 10*3/uL [employer] Work Phone: Monocytes/100 WBC (Bld) 8.3 % 2 - 10 % [facility] [employer] Work Phone: Platelet mean volume (Bld) [Entitic vol] 7.7 fL 7.4 - 10.4 fL [facility] Work Phone: 1 Platelets (Bld) [#/Vol] 219 10*3/uL 140 - 440 10*3/uL [facility] Work Phone: RBC (Bld) [#/Vol] 3.68 10*6/uL Low 4.4 - 5.9 10*6/uL [facility] Work Phone: 22 WBC (Bld) [#/Vol] 6.6 10*3/uL 3.6 - 10.7 10*3/uL [facility] Work Phone: [phone] MagnesiumOrdered By: Unknown Result on 09-28-2019 Magnesium [Mass/Vol] 1.7 mg/dL 1.6 - 2 .3 mg/dL [facility] Work Phone: [phone] Panel InformationOrdered By: Unknown Result on 09-28-2019 Test Performed by [employer], [address] , [place] [address] [facility] Work Phone: [phone] Test Performed by [employer], [address] , [place] [address] [facility] Work Phone: [phone] RBC MORPHOLOGYOrdered By: Un known Result on 09-28-2019 Anisocytosis Ql (Bld) Slight [facility] Work Phone: [phone] Macrocytosis Slight [facility] Work Phone: [phone] RBC morphology finding Nom (Bld) ABNORMAL [facility] Work Phone: [phone] Basic Metabolic Panelon 12-0 Anion gap [Moles/Vol] 10 mmol/L [place], [place] Calcium [Mass/Vol] 10.0 mg/dL 8.4 - 10. 4 mg/dL [place] Chloride [Moles/Vol] 107 mmol/L 98 - 10 7 mmol/L [place] CO2 [Moles/Vol] 26 mmol/L 22 - 30 mmol/L [place] Creatinine [Mass/Vol] 1.4 mg/dL High 0.52 - 1.25 mg/dL [place] EGFR IF NonAfrican [place] 52.1 mL/min >60 [place] Comment on above: Source- MDRD equatio n with creatinine calibration to IDMS(NKDEP) eGFR not recommended for drug dose adjustment GFR/1.73 sq M predicted among blacks MDRD (S/P/Bld) [Vol rate/Area] mL/min/{1.73_m2} >60 mL/min [place] Glucose [Mass/Vol] 94 mg/dL 70 - 100 mg/dL [place] Interpretation and review of laboratory results Abnormal [place] Potassium [Moles/Vol] 5.0 mmol/L 3.5 - 5.1 mmol/L [place] Sodium [Moles/Vol] 143 mmol/L 135 - 145 mmol/L [place] Urea nitrogen [Mass/Vol] 21 mg/dL High 7 - 20 mg/dL [place] CBC Auto Differentialon Absolute Baso # 0.0 10*3/uL 0 - 0.2 10*3/uL [place] Absolute Neut # 4.8 10*3/uL 1.8 - 7 10*3/uL [place] Basophils/100 WBC (Bld) 0.2 % 0 - 2 % [place] Eosinophils (Bld) [#/Vol] 0.0 10*3/uL 0 - 0.5 10*3/uL [place] Eosinophils/100 WBC (Bld) 0.3 % Low 1 - 6 % [place] Erythrocyte distribution width (RBC) [Ratio] 14.6 % High 11.5 - 14.5 % [place] Granulocytes/100 WBC (Bld) 64.9 % 40 - 80 % [place] Hematocrit (Bld) [Volume fraction] 41.3 % 40 - 52 % [place] Hemoglobin (Bld) [Mass/Vol] 14.0 g/dL 13 - 18 g/dL [place] Interpretation and review of laboratory results Abnormal [place] Lymphocytes (Bld) [#/Vol] 1.9 10*3/uL 1 - 4.3 10*3/uL [place] Lymphocytes/100 WBC (Bld) 25.8 % 20 - 40 % [place] MCH (RBC) [Entitic mass] 35.7 pg High 26 - 34 pg [place] MCHC (RBC) [Mass/Vol] 34.0 % 32 - 36 % [place] MCV (RBC) [Entitic vol] 105.0 fL High 80 - 98 fL [place], [place] Monocytes (Bld) [#/Vol] 0.7 10*3/uL 0 - 0.8 10*3/uL [place] Monocytes/100 WBC (Bld) 8.8 % 2 - 10 % [place] Platelet mean volume (Bld) [Entitic vol] 7.7 fL 7.4 - 10.4 fL [place] Platelets (Bld) [#/Vol] 249 10*3/uL 140 - 440 10*3/uL [place] RBC (Bld) [#/Vol] 3.93 10*6/uL Low 4.4 - 5.9 10*6/uL [place] WBC (Bld) [#/Vol] 7.4 10*3/uL 3.6 - 10.7 10*3/uL [place] Test Performed by [facility], [address] , [address] Magnesiumon 09-20-2019 Magnesium [Mass/Vol] 1.7 mg/dL 1.6 - 2 .3 mg/dL [place] Otheron 09-20-2019 Test Performed by [facility], [address] , [address] Basic Metabolic Panelon Anion gap [Moles/Vol] 11 mmol/L [place], [place] Calcium [Mass/Vol] 10.7 mg/dL High 8.4 - 10. 4 mg/dL [place] Chloride [Moles/Vol] 105 mmol/L 98 - 10 7 mmol/L [place] CO2 [Moles/Vol] 24 mmol/L 22 - 30 mmol/L [place] Creatinine [Mass/Vol] 1.02 mg/dL 0.52 - 1.25 mg/dL [place] EGFR IF NonAfrican [place] >60.0 >60 mL/min [place] Comment on above: Source- MDRD equatio n with creatinine calibration to IDMS(NKDEP) eGFR not recommended for drug dose adjustment GFR/1.73 sq M predicted among blacks MDRD (S/P/Bld) [Vol rate/Area] mL/min/{1.73_m2} >60 mL/min [place] Glucose [Mass/Vol] 108 mg/dL High 70 - 100 mg/dL [place] Potassium [Moles/Vol] 4.9 mmol/L 3.5 - 5.1 mmol/L [place] Sodium [Moles/Vol] 140 mmol/L 135 - 145 mmol/L [place] Urea nitrogen [Mass/Vol] 26 mg/dL High 7 - 20 mg/dL [place] CBC Auto Differentialon 12-0 Absolute Baso # 0.1 10*3/uL 0 - 0.2 10*3/uL [place] Absolute Neut # 7.6 10*3/uL High 1.8 - 7 10*3/uL [place] Basophils/100 WBC (Bld) 0.5 % 0 - 2 % [place] Eosinophils (Bld) [#/Vol] 0.0 10*3/uL 0 - 0.5 10*3/uL [place] Eosinophils/100 WBC (Bld) 0.2 % Low 1 - 6 % [place] Erythrocyte distribution width (RBC) [Ratio] 14.6 % High 11.5 - 14.5 % [place] Granulocytes/100 WBC (Bld) 75.0 % 40 - 80 % [place] Hematocrit (Bld) [Volume fraction] 44.4 % 40 - 52 % [place] Hemoglobin (Bld) [Mass/Vol] 15.1 g/dL 13 - 18 g/dL [place] Interpretation and review of laboratory results Abnormal [place] Lymphocytes (Bld) [#/Vol] 1.7 10*3/uL 1 - 4.3 10*3/uL [place] Lymphocytes/100 WBC (Bld) 17.0 % Low 20 - 40 % [place] MCH (RBC) [Entitic mass] 35.5 pg High 26 - 34 pg [place] MCHC (RBC) [Mass/Vol] 34.1 % 32 - 36 % [place] MCV (RBC) [Entitic vol] 104.3 fL High 80 - 98 fL [place], [place] Monocytes (Bld) [#/Vol] 0.7 10*3/uL 0 - 0.8 10*3/uL [place] Monocytes/100 WBC (Bld) 7.3 % 2 - 10 % [place] Platelet mean volume (Bld) [Entitic vol] 7.4 fL 7.4 - 10.4 fL [place] Platelets (Bld) [#/Vol] 265 10*3/uL 140 - 440 10*3/uL [place] RBC (Bld) [#/Vol] 4.26 10*6/uL Low 4.4 - 5.9 10*6/uL [place] WBC (Bld) [#/Vol] 10.1 10*3/uL 3.6 - 10.7 10*3/uL [place] Test Performed by [facility], [address] Magnesiumon 09-17-2019 Magnesium [Mass/Vol] 1.5 mg/dL Low 1.6 - 2 .3 mg/dL [place] Otheron 09-17-2019 Interpretation and review of laboratory results Abnormal [place] Test Performed by [facility], [address] , [address] Bilirubin, Directon 09-12-20 19 Bilirubin.direct [Mass/Vol] 0.0 mg/dL 0 - 0.3 mg/dL [place] CBC Auto Differentialon 08-18 Absolute Baso # 0.0 10*3/uL 0 - 0.2 10*3/uL [place] Absolute Neut # 3.3 10*3/uL 1.8 - 7 10*3/uL [place] Basophils/100 WBC (Bld) 0.4 % 0 - 2 % [place] Eosinophils (Bld) [#/Vol] 0.1 10*3/uL 0 - 0.5 10*3/uL [place] Eosinophils/100 WBC (Bld) 1.1 % 1 - 6 % [place] Erythrocyte distribution width (RBC) [Ratio] 14.4 % 11.5 - 14.5 % [place] Granulocytes/100 WBC (Bld) 55.8 % 40 - 80 % [place] Hematocrit (Bld) [Volume fraction] 40.0 % 40 - 52 % [place] Hemoglobin (Bld) [Mass/Vol] 13.6 g/dL 13 - 18 g/dL [place] Interpretation and review of laboratory results Abnormal [place] Lymphocytes (Bld) [#/Vol] 2.0 10*3/uL 1 - 4.3 10*3/uL [place] Lymphocytes/100 WBC (Bld) 33.7 % 20 - 40 % [place] MCH (RBC) [Entitic mass] 35.5 pg High 26 - 34 pg [place] MCHC (RBC) [Mass/Vol] 33.9 % 32 - 36 % [place] MCV (RBC) [Entitic vol] 104.5 fL High 80 - 98 fL [place] Monocytes (Bld) [#/Vol] 0.5 10*3/uL 0 - 0.8 10*3/uL [place] Monocytes/100 WBC (Bld) 9.0 % 2 - 10 % [place] Platelet mean volume (Bld) [Entitic vol] 7.8 fL 7.4 - 10.4 fL [place] Platelets (Bld) [#/Vol] 271 10*3/uL 140 - 440 10*3/uL [place] RBC (Bld) [#/Vol] 3.83 10*6/uL Low 4.4 - 5.9 10*6/uL [place] WBC (Bld) [#/Vol] 5.8 10*3/uL 3.6 - 10.7 10*3/uL [place] Test Performed by [facility], [address] , [place], [place] [address] [place] Comprehensive Metabolic Pane amaya 09-12-2019 Albumin [Mass/Vol] 3.8 g/dL 3.5 - 5 g/dL [place] ALP [Catalytic activity/Vol] 112 U/L 38 - 126 U/L [place] ALT [Catalytic activity/Vol] 40 U/L 13 - 69 U/L [place] Anion gap [Moles/Vol] 9 mmol/L [place], [place] AST [Catalytic activity/Vol] 19 U/L 15 - 46 U/L [place] Bilirubin Ql (U) 0.2 mg/dL 0.2 - 1.3 mg/dL [place] Calcium [Mass/Vol] 10.3 mg/dL 8.4 - 10. 4 mg/dL [place] Chloride [Moles/Vol] 105 mmol/L 98 - 10 7 mmol/L [place] CO2 [Moles/Vol] 27 mmol/L 22 - 30 mmol/L [place] Creatinine [Mass/Vol] 1.06 mg/dL 0.52 - 1.25 mg/dL [place] EGFR IF NonAfrican [place] >60.0 >60 mL/min [place], [place] Comment on above: Source- MDRD equatio n with creatinine calibration to IDMS(NKDEP) eGFR not recommended for drug dose adjustment GFR/1.73 sq M predicted among blacks MDRD (S/P/Bld) [Vol rate/Area] mL/min/{1.73_m2} >60 mL/min [place] Glucose [Mass/Vol] 96 mg/dL 70 - 100 mg/dL [place] Interpretation and review of laboratory results Abnormal [place] Potassium [Moles/Vol] 4.8 mmol/L 3.5 - 5.1 mmol/L [place] Protein [Mass/Vol] 6.2 g/dL Low 6.3 - 8.2 g/dL [place] Sodium [Moles/Vol] 141 mmol/L 135 - 145 mmol/L [place] Urea nitrogen [Mass/Vol] 22 mg/dL High 7 - 20 mg/dL [place] Magnesiumon 09-12-2019 Magnesium [Mass/Vol] 1.6 mg/dL 1.6 - 2 .3 mg/dL [place] Otheron 09-12-2019 Test Performed by [facility], [facility] [address] , [address] Phosphoruson 09-12-2019 Phosphate [Mass/Vol] 4.2 mg/dL 2.5 - 4 .5 mg/dL [place] Uric Acidon 09-12-2019 Urate [Mass/Vol] 6.0 mg/dL 2.5 - 8.5 mg/dL [place] Bilirubin, Directon 09-03-20 19 Bilirubin.direct [Mass/Vol] 0.0 mg/dL 0 - 0.3 mg/dL [place] CBC Auto Differentialon 08-17 Absolute Baso # 0.0 10*3/uL 0 - 0.2 10*3/uL [place] Absolute Neut # 3.6 10*3/uL 1.8 - 7 10*3/uL [place] Basophils/100 WBC (Bld) 0.3 % 0 - 2 % [place] Eosinophils (Bld) [#/Vol] 0.0 10*3/uL 0 - 0.5 10*3/uL [place] Eosinophils/100 WBC (Bld) 0.9 % Low 1 - 6 % [place] Erythrocyte distribution width (RBC) [Ratio] 14.0 % 11.5 - 14.5 % [place] Granulocytes/100 WBC (Bld) 62.0 % 40 - 80 % [place] Hematocrit (Bld) [Volume fraction] 37.4 % Low 40 - 52 % [place] Hemoglobin (Bld) [Mass/Vol] 12.7 g/dL Low 13 - 18 g/dL [place] Interpretation and review of laboratory results Abnormal [place] Lymphocytes (Bld) [#/Vol] 1.6 10*3/uL 1 - 4.3 10*3/uL [place] Lymphocytes/100 WBC (Bld) 26.9 % 20 - 40 % [place] MCH (RBC) [Entitic mass] 35.6 pg High 26 - 34 pg [place] MCHC (RBC) [Mass/Vol] 34.0 % 32 - 36 % [place] MCV (RBC) [Entitic vol] 104.7 fL High 80 - 98 fL [place], [place] Monocytes (Bld) [#/Vol] 0.6 10*3/uL 0 - 0.8 10*3/uL [place], [place] Monocytes/100 WBC (Bld) 9.9 % 2 - 10 % [place] Platelet mean volume (Bld) [Entitic vol] 7.6 fL 7.4 - 10.4 fL [place] Platelets (Bld) [#/Vol] 272 10*3/uL 140 - 440 10*3/uL [place] RBC (Bld) [#/Vol] 3.57 10*6/uL Low 4.4 - 5.9 10*6/uL [place] WBC (Bld) [#/Vol] 5.8 10*3/uL 3.6 - 10.7 10*3/uL [place] Test Performed by [facility], [address] [place] [address] [place]. , [address] Comprehensive Metabolic Pane amaya 09-03-2019 Albumin [Mass/Vol] 3.8 g/dL 3.5 - 5 g/dL [place] ALP [Catalytic activity/Vol] 108 U/L 38 - 126 U/L [place] ALT [Catalytic activity/Vol] 34 U/L 13 - 69 U/L [place] Anion gap [Moles/Vol] 9 mmol/L [place] AST [Catalytic activity/Vol] 22 U/L 15 - 46 U/L [place] Bilirubin Ql (U) 0.3 mg/dL 0.2 - 1.3 mg/dL [place] Calcium [Mass/Vol] 10.4 mg/dL 8.4 - 10. 4 mg/dL [place] Chloride [Moles/Vol] 109 mmol/L High 98 - 10 7 mmol/L [place] CO2 [Moles/Vol] 24 mmol/L 22 - 30 mmol/L [place] Creatinine [Mass/Vol] 1.34 mg/dL High 0.52 - 1.25 mg/dL [place] EGFR IF NonAfrican [place] 54.9 mL/min >60 [place] Comment on above: Source- MDRD equatio n with creatinine calibration to IDMS(NKDEP) eGFR not recommended for drug dose adjustment GFR/1.73 sq M predicted among blacks MDRD (S/P/Bld) [Vol rate/Area] mL/min/{1.73_m2} >60 mL/min [place] Glucose [Mass/Vol] 106 mg/dL High 70 - 100 mg/dL [place] Interpretation and review of laboratory results Abnormal [place] Potassium [Moles/Vol] 4.7 mmol/L 3.5 - 5.1 mmol/L [place] Protein [Mass/Vol] 6.2 g/dL Low 6.3 - 8.2 g/dL [place] Sodium [Moles/Vol] 142 mmol/L 135 - 145 mmol/L [place] Urea nitrogen [Mass/Vol] 25 mg/dL High 7 - 20 mg/dL [place] Magnesiumon 09-03-2019 Magnesium [Mass/Vol] 1.7 mg/dL 1.6 - 2 .3 mg/dL [place] Otheron 09-03-2019 Test Performed by [facility], [facility] Puja Curtis , [place] [id number] [place] [address] Protime-INRon 09-03-2019 INR Coag (PPP) [Relative time] 1.0 {INR} [place], [place] Comment on above: Recommended Anticoag ulant Therapy: SEE BELOW ----- INR of 2.0 - 3.0 : - Prophylaxis of Venous Thrombosis (high-risk surgery) - Treatment of Venous Thrombosis - Treatment of Pulmonary Embolism (Includes tissue heart valves, Acute Myocardial Infarction to prevent systemic embolism, Valvular Heart Disease, and Atrial Fibrillation) ----- INR of 2.5 - 3.5 : - Mechanical Prosthetic Valves (high risk) - If oral anticoagulant therapy is used to prevent Myocardial Infarction PT Coag (PPP) [Time] 10.8 s 9 - 12 s [place], [place] Comment on above: . Test [facility] by [facility], [facility] , [place], [place] [id number] [place] [address] Basic Metabolic Panelon 08-17 Anion gap [Moles/Vol] 10 mmol/L [place] Calcium [Mass/Vol] 10.5 mg/dL High 8.4 - 10. 4 mg/dL [place] Chloride [Moles/Vol] 107 mmol/L 98 - 10 7 mmol/L [place] CO2 [Moles/Vol] 24 mmol/L 22 - 30 mmol/L [place] Creatinine [Mass/Vol] 1.21 mg/dL 0.52 - 1.25 mg/dL [place] EGFR IF NonAfrican [place] >60.0 >60 mL/min [place] Comment on above: Source- MDRD equatio n with creatinine calibration to IDMS(NKDEP) eGFR not recommended for drug dose adjustment GFR/1.73 sq M predicted among blacks MDRD (S/P/Bld) [Vol rate/Area] mL/min/{1.73_m2} >60 mL/min [place] Glucose [Mass/Vol] 101 mg/dL High 70 - 100 mg/dL [place] Potassium [Moles/Vol] 4.8 mmol/L 3.5 - 5.1 mmol/L [place] Sodium [Moles/Vol] 140 mmol/L 135 - 145 mmol/L [place] Urea nitrogen [Mass/Vol] 16 mg/dL 7 - 20 mg/dL [place] CBC Auto Differentialon 08-17 Absolute Baso # 0.0 10*3/uL 0 - 0.2 10*3/uL [place] Absolute Neut # 5.4 10*3/uL 1.8 - 7 10*3/uL [place] Basophils/100 WBC (Bld) 0.3 % 0 - 2 % [place] Eosinophils (Bld) [#/Vol] 0.0 10*3/uL 0 - 0.5 10*3/uL [place] Eosinophils/100 WBC (Bld) 0.6 % Low 1 - 6 % [place] Erythrocyte distribution width (RBC) [Ratio] 13.8 % 11.5 - 14.5 % [place] Granulocytes/100 WBC (Bld) 73.9 % 40 - 80 % [place] Hematocrit (Bld) [Volume fraction] 41.0 % 40 - 52 % [place] Hemoglobin (Bld) [Mass/Vol] 13.9 g/dL 13 - 18 g/dL [place] Interpretation and review of laboratory results Abnormal [place] Lymphocytes (Bld) [#/Vol] 1.3 10*3/uL 1 - 4.3 10*3/uL [place] Lymphocytes/100 WBC (Bld) 18.3 % Low 20 - 40 % [place] MCH (RBC) [Entitic mass] 35.8 pg High 26 - 34 pg [place] MCHC (RBC) [Mass/Vol] 34.0 % 32 - 36 % [place] MCV (RBC) [Entitic vol] 105.3 fL High 80 - 98 fL [place] Monocytes (Bld) [#/Vol] 0.5 10*3/uL 0 - 0.8 10*3/uL [place], [place] Monocytes/100 WBC (Bld) 6.9 % 2 - 10 % [place] Platelet mean volume (Bld) [Entitic vol] 8.0 fL 7.4 - 10.4 fL [place] Platelets (Bld) [#/Vol] 274 10*3/uL 140 - 440 10*3/uL [place] RBC (Bld) [#/Vol] 3.89 10*6/uL Low 4.4 - 5.9 10*6/uL [place] WBC (Bld) [#/Vol] 7.3 10*3/uL 3.6 - 10.7 10*3/uL [place] Magnesiumon 08-30-2019 Magnesium [Mass/Vol] 1.4 mg/dL Low 1.6 - 2 .3 mg/dL [place] Otheron 08-30-2019 Test Performed by [facility], [address] , [address] Interpretation and review of laboratory results Abnormal [place] Test Performed by [facility], [address] , [address] RBC MORPHOLOGYon 08-30-2019 RBC morphology finding Nom (Bld) ABNORMAL [place] Sodium [Moles/Vol] Slight [place] Basic Metabolic Panelon 08-17 Anion gap [Moles/Vol] 13 mmol/L [place] Calcium [Mass/Vol] 11.2 mg/dL High 8.4 - 10. 4 mg/dL [place] Chloride [Moles/Vol] 107 mmol/L 98 - 10 7 mmol/L [place] CO2 [Moles/Vol] 22 mmol/L 22 - 30 mmol/L [place] Creatinine [Mass/Vol] 1 mg/dL 0.52 - 1.25 mg/dL [place] EGFR IF NonAfrican [place] >60.0 >60 mL/min [place] Comment on above: Source- MDRD equatio n with creatinine calibration to IDMS(NKDEP) eGFR not recommended for drug dose adjustment GFR/1.73 sq M predicted among blacks MDRD (S/P/Bld) [Vol rate/Area] mL/min/{1.73_m2} >60 mL/min [place] Glucose [Mass/Vol] 113 mg/dL High 70 - 100 mg/dL [place] Potassium [Moles/Vol] 4.6 mmol/L 3.5 - 5.1 mmol/L [place] Sodium [Moles/Vol] 142 mmol/L 135 - 145 mmol/L [place] Urea nitrogen [Mass/Vol] 20 mg/dL 7 - 20 mg/dL [place] CBC Auto Differentialon 08-17 Absolute Baso # 0.0 10*3/uL 0 - 0.2 10*3/uL [place] Absolute Neut # 7.4 10*3/uL High 1.8 - 7 10*3/uL [place] Basophils/100 WBC (Bld) 0.3 % 0 - 2 % [place] Eosinophils (Bld) [#/Vol] 0.0 10*3/uL 0 - 0.5 10*3/uL [place] Eosinophils/100 WBC (Bld) 0.4 % Low 1 - 6 % [place] Erythrocyte distribution width (RBC) [Ratio] 13.8 % 11.5 - 14.5 % [place] Granulocytes/100 WBC (Bld) 80.0 % 40 - 80 % [place] Hematocrit (Bld) [Volume fraction] 42.5 % 40 - 52 % [place] Hemoglobin (Bld) [Mass/Vol] 14.4 g/dL 13 - 18 g/dL [place] Lymphocytes (Bld) [#/Vol] 1.2 10*3/uL 1 - 4.3 10*3/uL [place] Lymphocytes/100 WBC (Bld) 13.0 % Low 20 - 40 % [place] MCH (RBC) [Entitic mass] 35.4 pg High 26 - 34 pg [place] MCHC (RBC) [Mass/Vol] 33.9 % 32 - 36 % [place] MCV (RBC) [Entitic vol] 104.6 fL High 80 - 98 fL [place] Monocytes (Bld) [#/Vol] 0.6 10*3/uL 0 - 0.8 10*3/uL [place] Monocytes/100 WBC (Bld) 6.3 % 2 - 10 % [place] Platelet mean volume (Bld) [Entitic vol] 7.8 fL 7.4 - 10.4 fL [place] Platelets (Bld) [#/Vol] 270 10*3/uL 140 - 440 10*3/uL [place] RBC (Bld) [#/Vol] 4.07 10*6/uL Low 4.4 - 5.9 10*6/uL [place] WBC (Bld) [#/Vol] 9.3 10*3/uL 3.6 - 10.7 10*3/uL [place] Magnesiumon 08-27-2019 Magnesium [Mass/Vol] 1.3 mg/dL Low 1.6 - 2 .3 mg/dL [place] Otheron 08-27-2019 Interpretation and review of laboratory results Abnormal [place] Test Performed by [facility], [facility] Puja Curtis , [address] Basic Metabolic Panelon 11 Anion gap [Moles/Vol] 9 mmol/L [place] Calcium [Mass/Vol] 10.4 mg/dL 8.4 - 10. 4 mg/dL [place] Chloride [Moles/Vol] 104 mmol/L 98 - 10 7 mmol/L [place] CO2 [Moles/Vol] 27 mmol/L 22 - 30 mmol/L [place] Creatinine [Mass/Vol] 1.13 mg/dL 0.52 - 1.25 mg/dL [place] EGFR IF NonAfrican [place] >60.0 >60 mL/min [place] Comment on above: Source- MDRD equatio n with creatinine calibration to IDMS(NKDEP) eGFR not recommended for drug dose adjustment GFR/1.73 sq M predicted among blacks MDRD (S/P/Bld) [Vol rate/Area] mL/min/{1.73_m2} >60 mL/min [place] Glucose [Mass/Vol] 100 mg/dL 70 - 100 mg/dL [place] Interpretation and review of laboratory results Abnormal [place] Potassium [Moles/Vol] 5.1 mmol/L 3.5 - 5.1 mmol/L [place] Sodium [Moles/Vol] 140 mmol/L 135 - 145 mmol/L [place] Urea nitrogen [Mass/Vol] 25 mg/dL High 7 - 20 mg/dL [place] CBC Auto Differentialon 11-0 Absolute Baso # 0.0 10*3/uL 0 - 0.2 10*3/uL [place] Absolute Neut # 5.4 10*3/uL 1.8 - 7 10*3/uL [place] Basophils/100 WBC (Bld) 0.3 % 0 - 2 % [place] Eosinophils (Bld) [#/Vol] 0.1 10*3/uL 0 - 0.5 10*3/uL [place] Eosinophils/100 WBC (Bld) 1.1 % 1 - 6 % [place] Erythrocyte distribution width (RBC) [Ratio] 13.8 % 11.5 - 14.5 % [place] Granulocytes/100 WBC (Bld) 70.9 % 40 - 80 % [place] Hematocrit (Bld) [Volume fraction] 38.6 % Low 40 - 52 % [place] Hemoglobin (Bld) [Mass/Vol] 13.5 g/dL 13 - 18 g/dL [place] Interpretation and review of laboratory results Abnormal [place] Lymphocytes (Bld) [#/Vol] 1.4 10*3/uL 1 - 4.3 10*3/uL [place] Lymphocytes/100 WBC (Bld) 18.0 % Low 20 - 40 % [place] MCH (RBC) [Entitic mass] 36.4 pg High 26 - 34 pg [place] MCHC (RBC) [Mass/Vol] 35.0 % 32 - 36 % [place] MCV (RBC) [Entitic vol] 104.0 fL High 80 - 98 fL [place] Monocytes (Bld) [#/Vol] 0.7 10*3/uL 0 - 0.8 10*3/uL [place] Monocytes/100 WBC (Bld) 9.7 % 2 - 10 % [place] Platelet mean volume (Bld) [Entitic vol] 7.7 fL 7.4 - 10.4 fL [place] Platelets (Bld) [#/Vol] 279 10*3/uL 140 - 440 10*3/uL [place] RBC (Bld) [#/Vol] 3.71 10*6/uL Low 4.4 - 5.9 10*6/uL [place] WBC (Bld) [#/Vol] 7.7 10*3/uL 3.6 - 10.7 10*3/uL [place] Test Performed by [facility], [address] , [address] Magnesiumon 08-23-2019 Magnesium [Mass/Vol] 1.7 mg/dL 1.6 - 2 .3 mg/dL [place] Otheron 08-23-2019 Test Performed by [facility], [address] , [address] Basic Metabolic Panelon 11-0 Anion gap [Moles/Vol] 10 mmol/L [place] Calcium [Mass/Vol] 10.8 mg/dL High 8.4 - 10. 4 mg/dL [place] Chloride [Moles/Vol] 105 mmol/L 98 - 10 7 mmol/L [place] CO2 [Moles/Vol] 25 mmol/L 22 - 30 mmol/L [place] Creatinine [Mass/Vol] 1.1 mg/dL 0.52 - 1.25 mg/dL [place] EGFR IF NonAfrican [place]ian >60.0 >60 mL/min [place] Comment on above: Source- MDRD equatio n with creatinine calibration to IDMS(NKDEP) eGFR not recommended for drug dose adjustment GFR/1.73 sq M predicted among blacks MDRD (S/P/Bld) [Vol rate/Area] mL/min/{1.73_m2} >60 mL/min [place] Glucose [Mass/Vol] 97 mg/dL 70 - 100 mg/dL [place] Interpretation and review of laboratory results Abnormal [place] Potassium [Moles/Vol] 5.4 mmol/L High 3.5 - 5.1 mmol/L [place] Sodium [Moles/Vol] 141 mmol/L 135 - 145 mmol/L [place] Urea nitrogen [Mass/Vol] 26 mg/dL High 7 - 20 mg/dL [place] CBC Auto Differentialon 11-0 Absolute Baso # 0.0 10*3/uL 0 - 0.2 10*3/uL [place] Absolute Neut # 6.6 10*3/uL 1.8 - 7 10*3/uL [place] Basophils/100 WBC (Bld) 0.3 % 0 - 2 % [place] Eosinophils (Bld) [#/Vol] 0.1 10*3/uL 0 - 0.5 10*3/uL [place] Eosinophils/100 WBC (Bld) 1.0 % 1 - 6 % [place] Erythrocyte distribution width (RBC) [Ratio] 13.7 % 11.5 - 14.5 % [place] Granulocytes/100 WBC (Bld) 76.5 % 40 - 80 % [place] Hematocrit (Bld) [Volume fraction] 41.7 % 40 - 52 % [place] Hemoglobin (Bld) [Mass/Vol] 14.2 g/dL 13 - 18 g/dL [place] Interpretation and review of laboratory results Abnormal [place] Lymphocytes (Bld) [#/Vol] 1.1 10*3/uL 1 - 4.3 10*3/uL [place] Lymphocytes/100 WBC (Bld) 12.4 % Low 20 - 40 % [place] MCH (RBC) [Entitic mass] 36.2 pg High 26 - 34 pg [place] MCHC (RBC) [Mass/Vol] 34.1 % 32 - 36 % [place] MCV (RBC) [Entitic vol] 106.1 fL High 80 - 98 fL [place] Comment on above: Reran/Rechecked Monocytes (Bld) [#/Vol] 0.8 10*3/uL 0 - 0.8 10*3/uL [place] Monocytes/100 WBC (Bld) 9.8 % 2 - 10 % [place] Platelet mean volume (Bld) [Entitic vol] 8.0 fL 7.4 - 10.4 fL [place] Platelets (Bld) [#/Vol] 298 10*3/uL 140 - 440 10*3/uL [place] RBC (Bld) [#/Vol] 3.93 10*6/uL Low 4.4 - 5.9 10*6/uL [place] WBC (Bld) [#/Vol] 8.6 10*3/uL 3.6 - 10.7 10*3/uL [place] Magnesiumon 08-20-2019 Magnesium [Mass/Vol] 1.9 mg/dL 1.6 - 2 .3 mg/dL [place] Metabolic Panelon 08-20-2019 Sodium [Moles/Vol] Slight [place] Otheron 08-20-2019 Test Performed by [facility], [facility] Puja Curtis [address] Test Performed by [facility], [address] RBC MORPHOLOGYon 08-20-2019 RBC morphology finding Nom (Bld) ABNORMAL [place] Bilirubin, Directon 08-15-20 19 Bilirubin.direct [Mass/Vol] 0.0 mg/dL 0 - 0.3 mg/dL [place] CBC Auto Differentialon 07-19 Absolute Baso # 0.0 10*3/uL 0 - 0.2 10*3/uL [place] Absolute Neut # 8.6 10*3/uL High 1.8 - 7 10*3/uL [place] Basophils/100 WBC (Bld) 0.3 % 0 - 2 % [place] Eosinophils (Bld) [#/Vol] 0.0 10*3/uL 0 - 0.5 10*3/uL [place] Eosinophils/100 WBC (Bld) 0.0 % Low 1 - 6 % [place] Erythrocyte distribution width (RBC) [Ratio] 14.2 % 11.5 - 14.5 % [place] Granulocytes/100 WBC (Bld) 80.6 % High 40 - 80 % [place] Hematocrit (Bld) [Volume fraction] 41.3 % 40 - 52 % [place] Hemoglobin (Bld) [Mass/Vol] 14.3 g/dL 13 - 18 g/dL [place] Interpretation and review of laboratory results Abnormal [place] Lymphocytes (Bld) [#/Vol] 1.0 10*3/uL 1 - 4.3 10*3/uL [place] Lymphocytes/100 WBC (Bld) 9.2 % Low 20 - 40 % [place] MCH (RBC) [Entitic mass] 36.2 pg High 26 - 34 pg [place] MCHC (RBC) [Mass/Vol] 34.5 % 32 - 36 % [place] MCV (RBC) [Entitic vol] 104.8 fL High 80 - 98 fL [place] Monocytes (Bld) [#/Vol] 1.1 10*3/uL High 0 - 0.8 10*3/uL [place] Monocytes/100 WBC (Bld) 9.9 % 2 - 10 % [place] Platelet mean volume (Bld) [Entitic vol] 7.9 fL 7.4 - 10.4 fL [place] Platelets (Bld) [#/Vol] 293 10*3/uL 140 - 440 10*3/uL [place] RBC (Bld) [#/Vol] 3.94 10*6/uL Low 4.4 - 5.9 10*6/uL [place] WBC (Bld) [#/Vol] 10.6 10*3/uL 3.6 - 10.7 10*3/uL [place] Test Performed by [facility], [address] , [place], [place] [address] [place] Comprehensive Metabolic Pane amaya 08-15-2019 Albumin [Mass/Vol] 4.4 g/dL 3.5 - 5 g/dL [place] ALP [Catalytic activity/Vol] 134 U/L High 38 - 126 U/L [place] ALT [Catalytic activity/Vol] 28 U/L 13 - 69 U/L [place] Anion gap [Moles/Vol] 10 mmol/L [place] AST [Catalytic activity/Vol] 22 U/L 15 - 46 U/L [place] Bilirubin Ql (U) 0.4 mg/dL 0.2 - 1.3 mg/dL [place] Calcium [Mass/Vol] 10.4 mg/dL 8.4 - 10. 4 mg/dL [place] Chloride [Moles/Vol] 108 mmol/L High 98 - 10 7 mmol/L [place] CO2 [Moles/Vol] 24 mmol/L 22 - 30 mmol/L [place] Creatinine [Mass/Vol] 1.4 mg/dL High 0.52 - 1.25 mg/dL [place] EGFR IF NonAfrican [place]ian 52.2 mL/min >60 [place] Comment on above: Source- MDRD equatio n with creatinine calibration to IDMS(NKDEP) eGFR not recommended for drug dose adjustment GFR/1.73 sq M predicted among blacks MDRD (S/P/Bld) [Vol rate/Area] mL/min/{1.73_m2} >60 mL/min [place] Glucose [Mass/Vol] 113 mg/dL High 70 - 100 mg/dL [place] Interpretation and review of laboratory results Abnormal [place] Potassium [Moles/Vol] 4.8 mmol/L 3.5 - 5.1 mmol/L [place] Protein [Mass/Vol] 7.1 g/dL 6.3 - 8.2 g/dL [place] Sodium [Moles/Vol] 142 mmol/L 135 - 145 mmol/L [place] Urea nitrogen [Mass/Vol] 35 mg/dL High 7 - 20 mg/dL [place] Magnesiumon 08-15-2019 Magnesium [Mass/Vol] 2.1 mg/dL 1.6 - 2 .3 mg/dL [place] Otheron 08-15-2019 Test Performed by [facility], [address] [place], [place] [address] , [address] Phosphoruson 08-15-2019 Phosphate [Mass/Vol] 4.4 mg/dL 2.5 - 4 .5 mg/dL [place] Tacrolimus Levelon 9 [id number] (Tacrolimus) 6.7 ug/L 5 - 20 ug/L [place] Comment on above: Test performed using Chemiluminescent Microparticle Immunoassay (CMIA; [employer] Double) Test Performed by [id number] [place] [address] Uric Acidon 08-15-2019 Urate [Mass/Vol] 7.9 mg/dL 2.5 - 8.5 mg/dL [place] POCT Glucoseon 08-14-2019 Glucose [Mass/Vol] 122 mg/dL High 70 - 100 mg/dL [place] Comment on above: Test performed by gl ucose meter. Results may be 10%-15% lower than serum/plasma values. (CLIA ID [id number]) Interpretation and review of laboratory results Abnormal [place] Test Performed by [facility], [address] [place] [id number] [place] Glucose [Mass/Vol] 127 mg/dL High 70 - 100 mg/dL [place] Comment on above: Test performed by gl ucose meter. Results may be 10%-15% lower than serum/plasma values. (CLIA ID [id number]) Interpretation and review of laboratory results Abnormal [place] Test Performed by [facility], [address] [place] [id number] [place] Basic Metabolic PanelOrdered By: Unknown Result on 08-09-2019 Anion gap [Moles/Vol] 5 mmol/L [place] Calcium [Mass/Vol] 10.0 mg/dL 8.4 - 10. 4 mg/dL [place] Chloride [Moles/Vol] 108 mmol/L High 98 - 10 7 mmol/L [place] CO2 [Moles/Vol] 29 mmol/L 22 - 30 mmol/L [place] Creatinine [Mass/Vol] 1.22 mg/dL 0.52 - 1.25 mg/dL [place] EGFR IF NonAfrican [place] >60.0 >60 mL/min [place] Comment on above: Source- MDRD equatio n with creatinine calibration to IDMS(NKDEP) eGFR not recommended for drug dose adjustment GFR/1.73 sq M.predicted among blacks MDRD (S/P/Bld) [Vol rate/Area] mL/min/{1.73_m2} >60 mL/min [place] Glucose [Mass/Vol] 92 mg/dL 70 - 100 mg/dL [place] Interpretation and review of laboratory results Abnormal [place] Potassium [Moles/Vol] 4.9 mmol/L 3.5 - 5.1 mmol/L [place] Sodium [Moles/Vol] 143 mmol/L 135 - 145 mmol/L [place] Urea nitrogen [Mass/Vol] 23 mg/dL High 7 - 20 mg/dL [place] CBC Auto DifferentialOrdered By: Unknown Result on 08-09-2019 Absolute Baso # 0.0 10*3/uL 0 - 0.2 10*3/uL [place] Absolute Neut # 5.5 10*3/uL 1.8 - 7 10*3/uL [place] Basophils/100 WBC (Bld) 0.3 % 0 - 2 % [place] Eosinophils (Bld) [#/Vol] 0.1 10*3/uL 0 - 0.5 10*3/uL [place] Eosinophils/100 WBC (Bld) 1.3 % 1 - 6 % [place] Erythrocyte distribution width (RBC) [Ratio] 14.5 % 11.5 - 14.5 % [place] Granulocytes/100 WBC (Bld) 66.4 % 40 - 80 % [place] Hematocrit (Bld) [Volume fraction] 39.2 % Low 40 - 52 % [place] Hemoglobin (Bld) [Mass/Vol] 13.1 g/dL 13 - 18 g/dL [place] Interpretation and review of laboratory results Abnormal [place] Lymphocytes (Bld) [#/Vol] 1.9 10*3/uL 1 - 4.3 10*3/uL [place] Lymphocytes/100 WBC (Bld) 22.7 % 20 - 40 % [place] MCH (RBC) [Entitic mass] 36.1 pg High 26 - 34 pg [place] MCHC 33.6 % 32 - 36 % [place] MCV (RBC) [Entitic vol] 107.5 fL High 80 - 98 fL [place], [place] Comment on above: reran/rechecked Monocytes (Bld) [#/Vol] 0.8 10*3/uL 0 - 0.8 10*3/uL [place] Monocytes/100 WBC (Bld) 9.3 % 2 - 10 % [place] Platelet mean volume (Bld) [Entitic vol] 8.2 fL 7.4 - 10.4 fL [place] Platelets (Bld) [#/Vol] 301 10*3/uL 140 - 440 10*3/uL [place] RBC (Bld) [#/Vol] 3.64 10*6/uL Low 4.4 - 5.9 10*6/uL [place] WBC (Bld) [#/Vol] 8.2 10*3/uL 3.6 - 10.7 10*3/uL [place] MagnesiumOrdered By: Unknown Result on 08-09-2019 Magnesium [Mass/Vol] 1.8 mg/dL 1.6 - 2 .3 mg/dL [place] No Panel InformationOrdered By: Unknown Result on 08-09-2019 Test Performed by [facility], [address] , [place], [place] [id number] [place] [address] Test Performed by [facility], [address] , [place], [place] [id number] [place] [address] RBC MORPHOLOGYOrdered By: Un known Result on 08-09-2019 Macrocytosis Moderate [place] RBC morphology finding Nom (Bld) ABNORMAL [place] Basic Metabolic Panelon 07-17 Anion gap [Moles/Vol] 12 mmol/L [place] Calcium [Mass/Vol] 10.1 mg/dL 8.4 - 10. 4 mg/dL [place] Chloride [Moles/Vol] 103 mmol/L 98 - 10 7 mmol/L [place] CO2 [Moles/Vol] 27 mmol/L 22 - 30 mmol/L [place] Creatinine [Mass/Vol] 1.4 mg/dL High 0.52 - 1.25 mg/dL [place] EGFR IF NonAfrican [place] 52.2 mL/min >60 [place] Comment on above: Source- MDRD equatio n with creatinine calibration to IDMS(NKDEP) eGFR not recommended for drug dose adjustment GFR/1.73 sq M predicted among blacks MDRD (S/P/Bld) [Vol rate/Area] mL/min/{1.73_m2} >60 mL/min [place] Glucose [Mass/Vol] 106 mg/dL High 70 - 100 mg/dL [place] Interpretation and review of laboratory results Abnormal [place] Potassium [Moles/Vol] 5.2 mmol/L High 3.5 - 5.1 mmol/L [place] Sodium [Moles/Vol] 142 mmol/L 135 - 145 mmol/L [place] Urea nitrogen [Mass/Vol] 31 mg/dL High 7 - 20 mg/dL [place] CBC Auto Differentialon 07-17 Absolute Baso # 0.1 10*3/uL 0 - 0.2 10*3/uL [place] Absolute Neut # 5.6 10*3/uL 1.8 - 7 10*3/uL [place] Basophils/100 WBC (Bld) 0.7 % 0 - 2 % [place] Eosinophils (Bld) [#/Vol] 0.1 10*3/uL 0 - 0.5 10*3/uL [place] Eosinophils/100 WBC (Bld) 1.0 % 1 - 6 % [place] Erythrocyte distribution width (RBC) [Ratio] 14.2 % 11.5 - 14.5 % [place] Granulocytes/100 WBC (Bld) 70.7 % 40 - 80 % [place] Hematocrit (Bld) [Volume fraction] 40.5 % 40 - 52 % [place] Hemoglobin (Bld) [Mass/Vol] 14.0 g/dL 13 - 18 g/dL [place] Interpretation and review of laboratory results Abnormal [place] Lymphocytes (Bld) [#/Vol] 1.6 10*3/uL 1 - 4.3 10*3/uL [place], [place] Lymphocytes/100 WBC (Bld) 19.8 % Low 20 - 40 % [place] MCH (RBC) [Entitic mass] 36.6 pg High 26 - 34 pg [place] MCHC (RBC) [Mass/Vol] 34.6 % 32 - 36 % [place] MCV (RBC) [Entitic vol] 105.6 fL High 80 - 98 fL [place] Monocytes (Bld) [#/Vol] 0.6 10*3/uL 0 - 0.8 10*3/uL [place] Monocytes/100 WBC (Bld) 7.8 % 2 - 10 % [place] Platelet mean volume (Bld) [Entitic vol] 7.4 fL 7.4 - 10.4 fL [place] Platelets (Bld) [#/Vol] 306 10*3/uL 140 - 440 10*3/uL [place] RBC (Bld) [#/Vol] 3.83 10*6/uL Low 4.4 - 5.9 10*6/uL [place] WBC (Bld) [#/Vol] 8.0 10*3/uL 3.6 - 10.7 10*3/uL [place] Magnesiumon 08-02-2019 Magnesium [Mass/Vol] 1.9 mg/dL 1.6 - 2 .3 mg/dL [place] Otheron 08-02-2019 Test Performed by [facility], [address] , [address] Test Performed by [facility], [address] , [address] RBC MORPHOLOGYon 08-02-2019 RBC morphology finding Nom (Bld) ABNORMAL [place] Sodium [Moles/Vol] Slight [place] Basic Metabolic Panelon 07-17 Anion gap [Moles/Vol] 11 mmol/L [place] Calcium [Mass/Vol] 10.7 mg/dL High 8.4 - 10. 4 mg/dL [place] Chloride [Moles/Vol] 103 mmol/L 98 - 10 7 mmol/L [place] CO2 [Moles/Vol] 28 mmol/L 22 - 30 mmol/L [place] Creatinine [Mass/Vol] 0.91 mg/dL 0.52 - 1.25 mg/dL [place] EGFR IF NonAfrican [place] >60.0 >60 mL/min [place] Comment on above: Source- MDRD equatio n with creatinine calibration to IDMS(NKDEP) eGFR not recommended for drug dose adjustment GFR/1.73 sq M predicted among blacks MDRD (S/P/Bld) [Vol rate/Area] mL/min/{1.73_m2} >60 mL/min [place] Glucose [Mass/Vol] 114 mg/dL High 70 - 100 mg/dL [place] Potassium [Moles/Vol] 5.2 mmol/L High 3.5 - 5.1 mmol/L [place] Sodium [Moles/Vol] 142 mmol/L 135 - 145 mmol/L [place] Urea nitrogen [Mass/Vol] 23 mg/dL High 7 - 20 mg/dL [place] CBC Auto Differentialon 07-17 Absolute Baso # 0.0 10*3/uL 0 - 0.2 10*3/uL [place] Absolute Neut # 5.1 10*3/uL 1.8 - 7 10*3/uL [place] Basophils/100 WBC (Bld) 0.5 % 0 - 2 % [place] Eosinophils (Bld) [#/Vol] 0.0 10*3/uL 0 - 0.5 10*3/uL [place] Eosinophils/100 WBC (Bld) 0.7 % Low 1 - 6 % [place] Erythrocyte distribution width (RBC) [Ratio] 14.2 % 11.5 - 14.5 % [place] Granulocytes/100 WBC (Bld) 76.1 % 40 - 80 % [place] Hematocrit (Bld) [Volume fraction] 42.0 % 40 - 52 % [place] Hemoglobin (Bld) [Mass/Vol] 14.3 g/dL 13 - 18 g/dL [place] Interpretation and review of laboratory results Abnormal [place] Lymphocytes (Bld) [#/Vol] 0.9 10*3/uL Low 1 - 4.3 10*3/uL [place] Lymphocytes/100 WBC (Bld) 13.9 % Low 20 - 40 % [place] MCH (RBC) [Entitic mass] 36.4 pg High 26 - 34 pg [place] MCHC (RBC) [Mass/Vol] 34.1 % 32 - 36 % [place] MCV (RBC) [Entitic vol] 106.6 fL High 80 - 98 fL [place] Monocytes (Bld) [#/Vol] 0.6 10*3/uL 0 - 0.8 10*3/uL [place] Monocytes/100 WBC (Bld) 8.8 % 2 - 10 % [place] Platelet mean volume (Bld) [Entitic vol] 8.1 fL 7.4 - 10.4 fL [place] Platelets (Bld) [#/Vol] 327 10*3/uL 140 - 440 10*3/uL [place] RBC (Bld) [#/Vol] 3.94 10*6/uL Low 4.4 - 5.9 10*6/uL [place] WBC (Bld) [#/Vol] 6.7 10*3/uL 3.6 - 10.7 10*3/uL [place] Ferritinon 07-30-2019 Ferritin [Mass/Vol] 501 ng/mL High 18 - 464 ng/mL [place] Interpretation and review of laboratory results Abnormal [place] Test Performed by [facility], [address] , [address] Hemoglobin A1Con 07-30-2019 eAG 105 mg/dL [place] HbA1c (Bld) [Mass fraction] 5.3 % 4 - 5.7 % [place] Comment on above: --HgbA1C levels may not be accurate in patients who have renal disease, received recent blood transfusions, are anemic, or who have dyshemoglobinemia. Test Performed by [facility], [address] , [address] IgAon 07-30-2019 IgA [Mass/Vol] 106.2 mg/dL 70 - 400 mg/dL [place] IgGon 07-30-2019 IgG [Mass/Vol] 740.9 mg/dL 700 - 1600 mg/dL [place] IgMon 07-30-2019 IgM [Mass/Vol] 44.3 mg/dL 40 - 230 mg/dL [place] Iron and TIBCon 07-30-2019 Interpretation and review of laboratory results Abnormal [place] Iron [Mass/Vol] 115 ug/dL 49 - 181 ug/dL [place] Sat 45 % 15 - 50 % [place] TIBC 256 ug/dL Low 261 - 497 ug/dL [place] Test Performed by [facility], [address] , [address] Lipid Panelon 07-30-2019 Cholesterol [Mass/Vol] 200 mg/dL Abnormal <200 [place], [place] Cholesterol in HDL [Mass/Vol] 50 mg/dL 40 - 60 mg/dL [place] Cholesterol in LDL [Mass/Vol] 88 mg/dL <100 [place] Cholesterol.total/Choles terol in HDL [Mass ratio] 4 {ratio} [place] Comment on above: Ref Range: < 3 Low Risk for CHD 3-6 Mod Risk for CHD > 6 High Risk for CHD Triglyceride [Mass/Vol] 311 mg/dL Abnormal <150 [place] Magnesiumon 07-30-2019 Magnesium [Mass/Vol] 1.7 mg/dL 1.6 - 2 .3 mg/dL [place] Otheron 07-30-2019 [facility], [address] , [address] Test Performed by [facility] [employer] [facility], [address], [address] Interpretation and review of laboratory results Abnormal [place] Test Performed by [facility], [address] , [address] RBC MORPHOLOGYon 07-30-2019 RBC morphology finding Nom (Bld) ABNORMAL [place] Sodium [Moles/Vol] Slight [place] Transferrinon 07-30-2019 Transferrin [Mass/Vol] 210 mg/dL 206 - 381 mg/dL [place] Test Performed by [facility], [address], [address] Basic Metabolic Panelon 07-17 Anion gap [Moles/Vol] 9 mmol/L [place] Calcium [Mass/Vol] 10.3 mg/dL 8.4 - 10. 4 mg/dL [place] Chloride [Moles/Vol] 107 mmol/L 98 - 10 7 mmol/L [place] CO2 [Moles/Vol] 27 mmol/L 22 - 30 mmol/L [place] Creatinine [Mass/Vol] 1.06 mg/dL 0.52 - 1.25 mg/dL [place] EGFR IF NonAfrican [place] >60.0 >60 mL/min [place] Comment on above: Source- MDRD equatio n with creatinine calibration to IDMS(NKDEP) eGFR not recommended for drug dose adjustment GFR/1.73 sq M predicted among blacks MDRD (S/P/Bld) [Vol rate/Area] mL/min/{1.73_m2} >60 mL/min [place] Glucose [Mass/Vol] 95 mg/dL 70 - 100 mg/dL [place] Potassium [Moles/Vol] 5.0 mmol/L 3.5 - 5.1 mmol/L [place] Sodium [Moles/Vol] 143 mmol/L 135 - 145 mmol/L [place] Urea nitrogen [Mass/Vol] 20 mg/dL 7 - 20 mg/dL [place] CBC Auto Differentialon 07-17 Absolute Baso # 0.0 10*3/uL 0 - 0.2 10*3/uL [place] Absolute Neut # 4.7 10*3/uL 1.8 - 7 10*3/uL [place] Basophils/100 WBC (Bld) 0.5 % 0 - 2 % [place] Eosinophils (Bld) [#/Vol] 0.1 10*3/uL 0 - 0.5 10*3/uL [place] Eosinophils/100 WBC (Bld) 1.6 % 1 - 6 % [place] Erythrocyte distribution width (RBC) [Ratio] 14.5 % 11.5 - 14.5 % [place] Granulocytes/100 WBC (Bld) 63.2 % 40 - 80 % [place] Hematocrit (Bld) [Volume fraction] 37.8 % Low 40 - 52 % [place] Hemoglobin (Bld) [Mass/Vol] 12.9 g/dL Low 13 - 18 g/dL [place] Interpretation and review of laboratory results Abnormal [place] Lymphocytes (Bld) [#/Vol] 1.8 10*3/uL 1 - 4.3 10*3/uL [place] Lymphocytes/100 WBC (Bld) 23.7 % 20 - 40 % [place] MCH (RBC) [Entitic mass] 36.4 pg High 26 - 34 pg [place] MCHC (RBC) [Mass/Vol] 34.1 % 32 - 36 % [place] MCV (RBC) [Entitic vol] 106.8 fL High 80 - 98 fL [place] Monocytes (Bld) [#/Vol] 0.8 10*3/uL 0 - 0.8 10*3/uL [place] Monocytes/100 WBC (Bld) 11.0 % High 2 - 10 % [place] Platelet mean volume (Bld) [Entitic vol] 7.5 fL 7.4 - 10.4 fL [place] Platelets (Bld) [#/Vol] 274 10*3/uL 140 - 440 10*3/uL [place] RBC (Bld) [#/Vol] 3.53 10*6/uL Low 4.4 - 5.9 10*6/uL [place] WBC (Bld) [#/Vol] 7.4 10*3/uL 3.6 - 10.7 10*3/uL [place] Magnesiumon 07-26-2019 Magnesium [Mass/Vol] 1.8 mg/dL 1.6 - 2 .3 mg/dL [place] Otheron 07-26-2019 Test [facility] by [facility], [facility] [address] , [place] Test Performed by [facility], [address] , [address] Psa screeningon 07-26-2019 Test Performed by [facility], [address] , [address] RBC MORPHOLOGYon 07-26-2019 Sodium [Moles/Vol] Slight [place] Basic Metabolic Panelon Anion gap [Moles/Vol] 8 mmol/L [place] Calcium [Mass/Vol] 10.3 mg/dL 8.4 - 10. 4 mg/dL [place] Chloride [Moles/Vol] 107 mmol/L 98 - 10 7 mmol/L [place] CO2 [Moles/Vol] 29 mmol/L 22 - 30 mmol/L [place] Creatinine [Mass/Vol] 1.03 mg/dL 0.52 - 1.25 mg/dL [place] EGFR IF NonAfrican [place] >60.0 >60 mL/min [place] Comment on above: Source- MDRD equatio n with creatinine calibration to IDMS(NKDEP) eGFR not recommended for drug dose adjustment GFR/1.73 sq M predicted among blacks MDRD (S/P/Bld) [Vol rate/Area] mL/min/{1.73_m2} >60 mL/min [place] Glucose [Mass/Vol] 107 mg/dL High 70 - 100 mg/dL [place] Interpretation and review of laboratory results Abnormal [place] Potassium [Moles/Vol] 5.3 mmol/L High 3.5 - 5.1 mmol/L [place] Sodium [Moles/Vol] 144 mmol/L 135 - 145 mmol/L [place] Urea nitrogen [Mass/Vol] 19 mg/dL 7 - 20 mg/dL [place] CBC Auto Differentialon Absolute Baso # 0.0 10*3/uL 0 - 0.2 10*3/uL [place] Absolute Neut # 4.0 10*3/uL 1.8 - 7 10*3/uL [place] Basophils/100 WBC (Bld) 0.6 % 0 - 2 % [place] Eosinophils (Bld) [#/Vol] 0.2 10*3/uL 0 - 0.5 10*3/uL [place] Eosinophils/100 WBC (Bld) 2.5 % 1 - 6 % [place] Erythrocyte distribution width (RBC) [Ratio] 14.5 % 11.5 - 14.5 % [place] Granulocytes/100 WBC (Bld) 62.2 % 40 - 80 % [place] Hematocrit (Bld) [Volume fraction] 39.0 % Low 40 - 52 % [place] Hemoglobin (Bld) [Mass/Vol] 13.2 g/dL 13 - 18 g/dL [place] Interpretation and review of laboratory results Abnormal [place] Lymphocytes (Bld) [#/Vol] 1.5 10*3/uL 1 - 4.3 10*3/uL [place] Lymphocytes/100 WBC (Bld) 24.2 % 20 - 40 % [place] MCH (RBC) [Entitic mass] 36.4 pg High 26 - 34 pg [place] MCHC (RBC) [Mass/Vol] 33.7 % 32 - 36 % [place] MCV (RBC) [Entitic vol] 107.9 fL High 80 - 98 fL [place] Monocytes (Bld) [#/Vol] 0.7 10*3/uL 0 - 0.8 10*3/uL [place] Monocytes/100 WBC (Bld) 10.5 % High 2 - 10 % [place] Platelet mean volume (Bld) [Entitic vol] 8.0 fL 7.4 - 10.4 fL [place] Platelets (Bld) [#/Vol] 270 10*3/uL 140 - 440 10*3/uL [place] RBC (Bld) [#/Vol] 3.62 10*6/uL Low 4.4 - 5.9 10*6/uL [place] WBC (Bld) [#/Vol] 6.4 10*3/uL 3.6 - 10.7 10*3/uL [place] Magnesiumon 07-23-2019 Magnesium [Mass/Vol] 1.6 mg/dL 1.6 - 2 .3 mg/dL [place] Otheron 07-23-2019 Test Performed by [facility], [address] , [place], [place] [id number] [place] [address] Test Performed by [facility], [address] , [place], [place] [id number] [place] [address] RBC MORPHOLOGYon 07-23-2019 RBC morphology finding Nom (Bld) ABNORMAL [place] Sodium [Moles/Vol] Slight [place] Tacrolimus Levelon 9 [id number] (Tacrolimus) 13.3 ug/L 5 - 20 ug/L [place] Comment on above: Test performed using Chemiluminescent Microparticle Immunoassay (CMIA; [employer] Double) Test Performed by [facility], [address] [place] [id number] [place] Basic Metabolic Panelon 10-0 Anion gap [Moles/Vol] 11 mmol/L [place] Calcium [Mass/Vol] 10.2 mg/dL 8.4 - 10. 4 mg/dL [place] Chloride [Moles/Vol] 105 mmol/L 98 - 10 7 mmol/L [place] CO2 [Moles/Vol] 28 mmol/L 22 - 30 mmol/L [place] Creatinine [Mass/Vol] 1.12 mg/dL 0.52 - 1.25 mg/dL [place] EGFR IF NonAfrican [place]ian >60.0 >60 mL/min [place] Comment on above: Source- MDRD equatio n with creatinine calibration to IDMS(NKDEP) eGFR not recommended for drug dose adjustment GFR/1.73 sq M predicted among blacks MDRD (S/P/Bld) [Vol rate/Area] mL/min/{1.73_m2} >60 mL/min [place] Glucose [Mass/Vol] 103 mg/dL High 70 - 100 mg/dL [place] Interpretation and review of laboratory results Abnormal [place] Potassium [Moles/Vol] 5.1 mmol/L 3.5 - 5.1 mmol/L [place] Sodium [Moles/Vol] 143 mmol/L 135 - 145 mmol/L [place] Urea nitrogen [Mass/Vol] 22 mg/dL High 7 - 20 mg/dL [place] CBC Auto Differentialon 10-0 Absolute Baso # 0.0 10*3/uL 0 - 0.2 10*3/uL [place] Absolute Neut # 4.5 10*3/uL 1.8 - 7 10*3/uL [place] Basophils/100 WBC (Bld) 0.4 % 0 - 2 % [place] Eosinophils (Bld) [#/Vol] 0.1 10*3/uL 0 - 0.5 10*3/uL [place] Eosinophils/100 WBC (Bld) 1.6 % 1 - 6 % [place] Erythrocyte distribution width (RBC) [Ratio] 14.9 % High 11.5 - 14.5 % [place] Granulocytes/100 WBC (Bld) 67.4 % 40 - 80 % [place] Hematocrit (Bld) [Volume fraction] 40.0 % 40 - 52 % [place] Hemoglobin (Bld) [Mass/Vol] 13.6 g/dL 13 - 18 g/dL [place] Interpretation and review of laboratory results Abnormal [place] Lymphocytes (Bld) [#/Vol] 1.4 10*3/uL 1 - 4.3 10*3/uL [place] Lymphocytes/100 WBC (Bld) 21.1 % 20 - 40 % [place] MCH (RBC) [Entitic mass] 36.4 pg High 26 - 34 pg [place] MCHC (RBC) [Mass/Vol] 33.9 % 32 - 36 % [place] MCV (RBC) [Entitic vol] 107.5 fL High 80 - 98 fL [place] Monocytes (Bld) [#/Vol] 0.6 10*3/uL 0 - 0.8 10*3/uL [place] Monocytes/100 WBC (Bld) 9.5 % 2 - 10 % [place] Platelet mean volume (Bld) [Entitic vol] 8.1 fL 7.4 - 10.4 fL [place] Platelets (Bld) [#/Vol] 284 10*3/uL 140 - 440 10*3/uL [place] RBC (Bld) [#/Vol] 3.72 10*6/uL Low 4.4 - 5.9 10*6/uL [place] WBC (Bld) [#/Vol] 6.7 10*3/uL 3.6 - 10.7 10*3/uL [place] Magnesiumon 07-19-2019 Magnesium [Mass/Vol] 1.7 mg/dL 1.6 - 2 .3 mg/dL [place] Otheron 07-19-2019 Test Performed by [facility], [facility] [address] Test Performed by [facility], [facility] [address] RBC MORPHOLOGYon 07-19-2019 Anisocytosis Ql (Bld) Slight [place] RBC morphology finding Nom (Bld) ABNORMAL [place] Sodium [Moles/Vol] Moderate [place] Bilirubin, Directon 07-16-20 19 Bilirubin.direct [Mass/Vol] 0.0 mg/dL 0 - 0.3 mg/dL [place] Bilirubin.direct [Mass/Vol] 0.0 mg/dL 0 - 0.3 mg/dL [place] CBC Auto Differentialon 06-19 Absolute Neut # 5.2 10*3/uL 1.8 - 7 10*3/uL [place] Basophils/100 WBC (Bld) 0.3 % 0 - 2 % [place] Eosinophils/100 WBC (Bld) 1.3 % 1 - 6 % [place] Erythrocyte distribution width (RBC) [Ratio] 14.9 % High 11.5 - 14.5 % [place] Granulocytes/100 WBC (Bld) 75.9 % 40 - 80 % [place] Hematocrit (Bld) [Volume fraction] 38.5 % Low 40 - 52 % [place] Hemoglobin (Bld) [Mass/Vol] 13.2 g/dL 13 - 18 g/dL [place] MCH (RBC) [Entitic mass] 36.9 pg High 26 - 34 pg [place] MCHC (RBC) [Mass/Vol] 34.2 % 32 - 36 % [place] MCV (RBC) [Entitic vol] 107.8 fL High 80 - 98 fL [place] Monocytes/100 WBC (Bld) 9.3 % 2 - 10 % [place] Platelet mean volume (Bld) [Entitic vol] 7.9 fL 7.4 - 10.4 fL [place] Platelets (Bld) [#/Vol] 278 10*3/uL 140 - 440 10*3/uL [place] RBC (Bld) [#/Vol] 3.57 10*6/uL Low 4.4 - 5.9 10*6/uL [place] WBC (Bld) [#/Vol] 6.8 10*3/uL 3.6 - 10.7 10*3/uL [place] Absolute Neut # 5.1 10*3/uL 1.8 - 7 10*3/uL [place] Basophils/100 WBC (Bld) 0.4 % 0 - 2 % [place] Eosinophils/100 WBC (Bld) 1.0 % 1 - 6 % [place] Erythrocyte distribution width (RBC) [Ratio] 14.7 % High 11.5 - 14.5 % [place] Granulocytes/100 WBC (Bld) 76.8 % 40 - 80 % [place] Hematocrit (Bld) [Volume fraction] 39.3 % Low 40 - 52 % [place] Hemoglobin (Bld) [Mass/Vol] 13.3 g/dL 13 - 18 g/dL [place] MCH (RBC) [Entitic mass] 36.5 pg High 26 - 34 pg [place] MCHC (RBC) [Mass/Vol] 34.0 % 32 - 36 % [place] MCV (RBC) [Entitic vol] 107.6 fL High 80 - 98 fL [place], [place] Monocytes/100 WBC (Bld) 8.6 % 2 - 10 % [place] Platelet mean volume (Bld) [Entitic vol] 8.0 fL 7.4 - 10.4 fL [place] Platelets (Bld) [#/Vol] 270 10*3/uL 140 - 440 10*3/uL [place] RBC (Bld) [#/Vol] 3.65 10*6/uL Low 4.4 - 5.9 10*6/uL [place] WBC (Bld) [#/Vol] 6.7 10*3/uL 3.6 - 10.7 10*3/uL [place] Comprehensive Metabolic Pane amaya 07-16-2019 Albumin [Mass/Vol] 4.3 g/dL 3.5 - 5 g/dL [place] ALP [Catalytic activity/Vol] 110 U/L 38 - 126 U/L [place] ALT [Catalytic activity/Vol] 25 U/L 13 - 69 U/L [place] Anion gap [Moles/Vol] 11 mmol/L [place] AST [Catalytic activity/Vol] 24 U/L 15 - 46 U/L [place] Bilirubin Ql (U) 0.3 mg/dL 0.2 - 1.3 mg/dL [place] Calcium [Mass/Vol] 10.0 mg/dL 8.4 - 10. 4 mg/dL [place] Chloride [Moles/Vol] 108 mmol/L High 98 - 10 7 mmol/L [place] CO2 [Moles/Vol] 24 mmol/L 22 - 30 mmol/L [place] Creatinine [Mass/Vol] 0.81 mg/dL 0.52 - 1.25 mg/dL [place] EGFR IF NonAfrican [place] >60.0 >60 mL/min [place] Comment on above: Source- MDRD equatio n with creatinine calibration to IDMS(NKDEP) eGFR not recommended for drug dose adjustment GFR/1.73 sq M predicted among blacks MDRD (S/P/Bld) [Vol rate/Area] mL/min/{1.73_m2} >60 mL/min [place] Glucose [Mass/Vol] 100 mg/dL 70 - 100 mg/dL [place] Potassium [Moles/Vol] 4.9 mmol/L 3.5 - 5.1 mmol/L [place] Protein [Mass/Vol] 6.8 g/dL 6.3 - 8.2 g/dL [place] Sodium [Moles/Vol] 144 mmol/L 135 - 145 mmol/L [place] Urea nitrogen [Mass/Vol] 23 mg/dL High 7 - 20 mg/dL [place] Albumin [Mass/Vol] 4.3 g/dL 3.5 - 5 g/dL [place] ALP [Catalytic activity/Vol] 110 U/L 38 - 126 U/L [place] ALT [Catalytic activity/Vol] 26 U/L 13 - 69 U/L [place] Anion gap [Moles/Vol] 11 mmol/L [place] AST [Catalytic activity/Vol] 24 U/L 15 - 46 U/L [place] Bilirubin Ql (U) 0.3 mg/dL 0.2 - 1.3 mg/dL [place] Calcium [Mass/Vol] 10.1 mg/dL 8.4 - 10. 4 mg/dL [place] Chloride [Moles/Vol] 109 mmol/L High 98 - 10 7 mmol/L [place] CO2 [Moles/Vol] 25 mmol/L 22 - 30 mmol/L [place] Creatinine [Mass/Vol] 0.82 mg/dL 0.52 - 1.25 mg/dL [place] EGFR IF NonAfrican [place]ian >60.0 >60 mL/min [place] Comment on above: Source- MDRD equatio n with creatinine calibration to IDMS(NKDEP) eGFR not recommended for drug dose adjustment GFR/1.73 sq M predicted among blacks MDRD (S/P/Bld) [Vol rate/Area] mL/min/{1.73_m2} >60 mL/min [place] Glucose [Mass/Vol] 102 mg/dL High 70 - 100 mg/dL [place] Potassium [Moles/Vol] 4.9 mmol/L 3.5 - 5.1 mmol/L [place] Protein [Mass/Vol] 6.9 g/dL 6.3 - 8.2 g/dL [place] Sodium [Moles/Vol] 144 mmol/L 135 - 145 mmol/L [place] Urea nitrogen [Mass/Vol] 24 mg/dL High 7 - 20 mg/dL [place] Hematologyon 07-16-2019 RBC morphology finding Nom (Bld) ABNORMAL [place] Eosinophils (Bld) [#/Vol] 0.1 10*3/uL 0 - 0.5 10*3/uL [place] Lymphocytes (Bld) [#/Vol] 0.9 10*3/uL Low 1 - 4.3 10*3/uL [place] Lymphocytes/100 WBC (Bld) 13.2 % Low 20 - 40 % [place] Monocytes (Bld) [#/Vol] 0.6 10*3/uL 0 - 0.8 10*3/uL [place] Magnesiumon 07-16-2019 Magnesium [Mass/Vol] 1.6 mg/dL 1.6 - 2 .3 mg/dL [place] Magnesium [Mass/Vol] 1.6 mg/dL 1.6 - 2 .3 mg/dL [place] Metabolic Panelon 07-16-2019 Sodium [Moles/Vol] Slight [place] Otheron 07-16-2019 Anisocytosis Ql (Bld) Slight [place], [place] Interpretation and review of laboratory results Abnormal [place] Test Performed by [facility], [address] , [place], [place] [address] [place], [place] Absolute Baso # 0.0 10*3/uL 0 - 0.2 10*3/uL [place] Phosphoruson 07-16-2019 Phosphate [Mass/Vol] 3.3 mg/dL 2.5 - 4 .5 mg/dL [place] Protime-INRon 07-16-2019 INR Coag (PPP) [Relative time] 1.0 {INR} [place], [place] Comment on above: Recommended Anticoag ulant Therapy: SEE BELOW ----- INR of 2.0 - 3.0 : - Prophylaxis of Venous Thrombosis (high-risk surgery) - Treatment of Venous Thrombosis - Treatment of Pulmonary Embolism (Includes tissue heart valves, Acute Myocardial Infarction to prevent systemic embolism, Valvular Heart Disease, and Atrial Fibrillation) ----- INR of 2.5 - 3.5 : - Mechanical Prosthetic Valves (high risk) - If oral anticoagulant therapy is used to prevent Myocardial Infarction PT Coag (PPP) [Time] 10.4 s 9 - 12 s [place], [place] Comment on above: . Uric Acidon 07-16-2019 Urate [Mass/Vol] 6.1 mg/dL 2.5 - 8.5 mg/dL [place], [place] Basic Metabolic Panelon 06-17 Anion gap [Moles/Vol] 8 mmol/L [place], [place] Calcium [Mass/Vol] 9.9 mg/dL 8.4 - 10. 4 mg/dL [place] Chloride [Moles/Vol] 107 mmol/L 98 - 10 7 mmol/L [place] CO2 [Moles/Vol] 28 mmol/L 22 - 30 mmol/L [place] Creatinine [Mass/Vol] 1.06 mg/dL 0.52 - 1.25 mg/dL [place] EGFR IF NonAfrican [place] >60.0 >60 mL/min [place] Comment on above: Source- MDRD equatio n with creatinine calibration to IDMS(NKDEP) eGFR not recommended for drug dose adjustment GFR/1.73 sq M predicted among blacks MDRD (S/P/Bld) [Vol rate/Area] mL/min/{1.73_m2} >60 mL/min [place] Glucose [Mass/Vol] 92 mg/dL 70 - 100 mg/dL [place] Interpretation and review of laboratory results Abnormal [place] Potassium [Moles/Vol] 5.1 mmol/L 3.5 - 5.1 mmol/L [place] Sodium [Moles/Vol] 142 mmol/L 135 - 145 mmol/L [place] Urea nitrogen [Mass/Vol] 34 mg/dL High 7 - 20 mg/dL [place] CBC Auto Differentialon 06-17 Absolute Baso # 0.0 10*3/uL 0 - 0.2 10*3/uL [place] Absolute Neut # 2.4 10*3/uL 1.8 - 7 10*3/uL [place] Basophils/100 WBC (Bld) 0.5 % 0 - 2 % [place] Eosinophils (Bld) [#/Vol] 0.1 10*3/uL 0 - 0.5 10*3/uL [place] Eosinophils/100 WBC (Bld) 1.7 % 1 - 6 % [place] Erythrocyte distribution width (RBC) [Ratio] 15.1 % High 11.5 - 14.5 % [place] Granulocytes/100 WBC (Bld) 50.2 % 40 - 80 % [place], [place] Hematocrit (Bld) [Volume fraction] 37.1 % Low 40 - 52 % [place] Hemoglobin (Bld) [Mass/Vol] 12.7 g/dL Low 13 - 18 g/dL [place] Interpretation and review of laboratory results Abnormal [place] Lymphocytes (Bld) [#/Vol] 1.8 10*3/uL 1 - 4.3 10*3/uL [place] Lymphocytes/100 WBC (Bld) 37.2 % 20 - 40 % [place] MCH (RBC) [Entitic mass] 36.8 pg High 26 - 34 pg [place] MCHC (RBC) [Mass/Vol] 34.2 % 32 - 36 % [place] MCV (RBC) [Entitic vol] 107.7 fL High 80 - 98 fL [place] Monocytes (Bld) [#/Vol] 0.5 10*3/uL 0 - 0.8 10*3/uL [place] Monocytes/100 WBC (Bld) 10.4 % High 2 - 10 % [place] Platelet mean volume (Bld) [Entitic vol] 7.9 fL 7.4 - 10.4 fL [place] Platelets (Bld) [#/Vol] 232 10*3/uL 140 - 440 10*3/uL [place] RBC (Bld) [#/Vol] 3.45 10*6/uL Low 4.4 - 5.9 10*6/uL [place] WBC (Bld) [#/Vol] 4.8 10*3/uL 3.6 - 10.7 10*3/uL [place] Magnesiumon 07-02-2019 Magnesium [Mass/Vol] 2.0 mg/dL 1.6 - 2 .3 mg/dL [place] Otheron 07-02-2019 Test Performed by [facility], [address] Test Performed by [facility], [facility] [address] , [address] RBC MORPHOLOGYon 07-02-2019 Anisocytosis Ql (Bld) Slight [place] RBC morphology finding Nom (Bld) ABNORMAL [place] Sodium [Moles/Vol] Slight [place] Basic Metabolic Panelon 06-17 Anion gap [Moles/Vol] 10 mmol/L [place] Calcium [Mass/Vol] 10.1 mg/dL 8.4 - 10. 4 mg/dL [place] Chloride [Moles/Vol] 106 mmol/L 98 - 10 7 mmol/L [place] CO2 [Moles/Vol] 26 mmol/L 22 - 30 mmol/L [place] Creatinine [Mass/Vol] 1.08 mg/dL 0.52 - 1.25 mg/dL [place] EGFR IF NonAfrican [place] >60.0 >60 mL/min [place] Comment on above: Source- MDRD equatio n with creatinine calibration to IDMS(NKDEP) eGFR not recommended for drug dose adjustment GFR/1.73 sq M predicted among blacks MDRD (S/P/Bld) [Vol rate/Area] mL/min/{1.73_m2} >60 mL/min [place] Glucose [Mass/Vol] 109 mg/dL High 70 - 100 mg/dL [place] Interpretation and review of laboratory results Abnormal [place] Potassium [Moles/Vol] 4.8 mmol/L 3.5 - 5.1 mmol/L [place] Sodium [Moles/Vol] 142 mmol/L 135 - 145 mmol/L [place] Urea nitrogen [Mass/Vol] 23 mg/dL High 7 - 20 mg/dL [place] CBC Auto Differentialon 06-17 Absolute Baso # 0.0 10*3/uL 0 - 0.2 10*3/uL [place] Absolute Neut # 4.2 10*3/uL 1.8 - 7 10*3/uL [place] Basophils/100 WBC (Bld) 0.3 % 0 - 2 % [place] Eosinophils (Bld) [#/Vol] 0.1 10*3/uL 0 - 0.5 10*3/uL [place] Eosinophils/100 WBC (Bld) 1.2 % 1 - 6 % [place] Erythrocyte distribution width (RBC) [Ratio] 15.4 % High 11.5 - 14.5 % [place] Granulocytes/100 WBC (Bld) 66.5 % 40 - 80 % [place] Hematocrit (Bld) [Volume fraction] 38.7 % Low 40 - 52 % [place] Hemoglobin (Bld) [Mass/Vol] 12.9 g/dL Low 13 - 18 g/dL [place] Interpretation and review of laboratory results Abnormal [place] Lymphocytes (Bld) [#/Vol] 1.3 10*3/uL 1 - 4.3 10*3/uL [place] Lymphocytes/100 WBC (Bld) 20.4 % 20 - 40 % [place] MCH (RBC) [Entitic mass] 36.3 pg High 26 - 34 pg [place] MCHC (RBC) [Mass/Vol] 33.3 % 32 - 36 % [place] MCV (RBC) [Entitic vol] 109.0 fL High 80 - 98 fL [place] Monocytes (Bld) [#/Vol] 0.7 10*3/uL 0 - 0.8 10*3/uL [place] Monocytes/100 WBC (Bld) 11.6 % High 2 - 10 % [place] Platelet mean volume (Bld) [Entitic vol] 8.1 fL 7.4 - 10.4 fL [place] Platelets (Bld) [#/Vol] 237 10*3/uL 140 - 440 10*3/uL [place] RBC (Bld) [#/Vol] 3.55 10*6/uL Low 4.4 - 5.9 10*6/uL [place] WBC (Bld) [#/Vol] 6.2 10*3/uL 3.6 - 10.7 10*3/uL [place] Magnesiumon 06-28-2019 Magnesium [Mass/Vol] 1.6 mg/dL 1.6 - 2 .3 mg/dL [place] Otheron 06-28-2019 Test Performed by [facility] [employer] [facility], [facility] , [address] Test Performed by [facility], [address] , [place], [place] [address] [place] RBC MORPHOLOGYon 06-28-2019 Anisocytosis Ql (Bld) Slight [place] RBC morphology finding Nom (Bld) ABNORMAL [place] Sodium [Moles/Vol] Moderate [place] Basic Metabolic Panelon Anion gap [Moles/Vol] 8 mmol/L [place] Calcium [Mass/Vol] 10.1 mg/dL 8.4 - 10. 4 mg/dL [place] Chloride [Moles/Vol] 105 mmol/L 98 - 10 7 mmol/L [place] CO2 [Moles/Vol] 29 mmol/L 22 - 30 mmol/L [place] Creatinine [Mass/Vol] 0.94 mg/dL 0.52 - 1.25 mg/dL [place] EGFR IF NonAfrican [place] >60.0 >60 mL/min [place] Comment on above: Source- MDRD equatio n with creatinine calibration to IDMS(NKDEP) eGFR not recommended for drug dose adjustment GFR/1.73 sq M predicted among blacks MDRD (S/P/Bld) [Vol rate/Area] mL/min/{1.73_m2} >60 mL/min [place] Glucose [Mass/Vol] 91 mg/dL 70 - 100 mg/dL [place] Potassium [Moles/Vol] 4.8 mmol/L 3.5 - 5.1 mmol/L [place] Sodium [Moles/Vol] 142 mmol/L 135 - 145 mmol/L [place] Urea nitrogen [Mass/Vol] 20 mg/dL 7 - 20 mg/dL [place] CBC Auto Differentialon Absolute Baso # 0.0 10*3/uL 0 - 0.2 10*3/uL [place] Absolute Neut # 4.5 10*3/uL 1.8 - 7 10*3/uL [place] Basophils/100 WBC (Bld) 0.4 % 0 - 2 % [place] Eosinophils (Bld) [#/Vol] 0.1 10*3/uL 0 - 0.5 10*3/uL [place] Eosinophils/100 WBC (Bld) 0.9 % Low 1 - 6 % [place] Erythrocyte distribution width (RBC) [Ratio] 15.2 % High 11.5 - 14.5 % [place] Granulocytes/100 WBC (Bld) 63.6 % 40 - 80 % [place] Hematocrit (Bld) [Volume fraction] 37.5 % Low 40 - 52 % [place] Hemoglobin (Bld) [Mass/Vol] 12.9 g/dL Low 13 - 18 g/dL [place] Interpretation and review of laboratory results Abnormal [place] Lymphocytes (Bld) [#/Vol] 1.7 10*3/uL 1 - 4.3 10*3/uL [place] Lymphocytes/100 WBC (Bld) 24.2 % 20 - 40 % [place] MCH (RBC) [Entitic mass] 37.0 pg High 26 - 34 pg [place] MCHC (RBC) [Mass/Vol] 34.4 % 32 - 36 % [place] MCV (RBC) [Entitic vol] 107.6 fL High 80 - 98 fL [place], [place] Monocytes (Bld) [#/Vol] 0.8 10*3/uL 0 - 0.8 10*3/uL [place] Monocytes/100 WBC (Bld) 10.9 % High 2 - 10 % [place] Platelet mean volume (Bld) [Entitic vol] 7.3 fL Low 7.4 - 10.4 fL [place] Platelets (Bld) [#/Vol] 228 10*3/uL 140 - 440 10*3/uL [place] RBC (Bld) [#/Vol] 3.49 10*6/uL Low 4.4 - 5.9 10*6/uL [place] WBC (Bld) [#/Vol] 7.0 10*3/uL 3.6 - 10.7 10*3/uL [place] Magnesiumon 06-25-2019 Magnesium [Mass/Vol] 1.6 mg/dL 1.6 - 2 .3 mg/dL [place] Otheron 06-25-2019 Test Performed by [facility], [address] , [address] Test Performed by [facility], [address] , [address] RBC MORPHOLOGYon 06-25-2019 RBC morphology finding Nom (Bld) ABNORMAL [place] Sodium [Moles/Vol] Slight [place] Basic Metabolic Panelon Anion gap [Moles/Vol] 10 mmol/L [place] Calcium [Mass/Vol] 9.6 mg/dL 8.4 - 10. 4 mg/dL [place] Chloride [Moles/Vol] 104 mmol/L 98 - 10 7 mmol/L [place] CO2 [Moles/Vol] 27 mmol/L 22 - 30 mmol/L [place] Creatinine [Mass/Vol] 1.12 mg/dL 0.52 - 1.25 mg/dL [place] EGFR IF NonAfrican [place] >60.0 >60 mL/min [place] Comment on above: Source- MDRD equatio n with creatinine calibration to IDMS(NKDEP) eGFR not recommended for drug dose adjustment GFR/1.73 sq M predicted among blacks MDRD (S/P/Bld) [Vol rate/Area] mL/min/{1.73_m2} >60 mL/min [place] Glucose [Mass/Vol] 97 mg/dL 70 - 100 mg/dL [place] Interpretation and review of laboratory results Abnormal [place] Potassium [Moles/Vol] 4.9 mmol/L 3.5 - 5.1 mmol/L [place] Sodium [Moles/Vol] 141 mmol/L 135 - 145 mmol/L [place] Urea nitrogen [Mass/Vol] 30 mg/dL High 7 - 20 mg/dL [place] CBC Auto Differentialon 090 Absolute Baso # 0.0 10*3/uL 0 - 0.2 10*3/uL [place] Absolute Neut # 2.6 10*3/uL 1.8 - 7 10*3/uL [place] Basophils/100 WBC (Bld) 0.4 % 0 - 2 % [place] Eosinophils (Bld) [#/Vol] 0.1 10*3/uL 0 - 0.5 10*3/uL [place] Eosinophils/100 WBC (Bld) 1.0 % 1 - 6 % [place] Erythrocyte distribution width (RBC) [Ratio] 14.9 % High 11.5 - 14.5 % [place] Granulocytes/100 WBC (Bld) 50.4 % 40 - 80 % [place] Hematocrit (Bld) [Volume fraction] 38.1 % Low 40 - 52 % [place] Hemoglobin (Bld) [Mass/Vol] 12.9 g/dL Low 13 - 18 g/dL [place] Interpretation and review of laboratory results Abnormal [place] Lymphocytes (Bld) [#/Vol] 1.9 10*3/uL 1 - 4.3 10*3/uL [place] Lymphocytes/100 WBC (Bld) 37.0 % 20 - 40 % [place] MCH (RBC) [Entitic mass] 36.6 pg High 26 - 34 pg [place] MCHC (RBC) [Mass/Vol] 33.9 % 32 - 36 % [place] MCV (RBC) [Entitic vol] 108.1 fL High 80 - 98 fL [place] Monocytes (Bld) [#/Vol] 0.6 10*3/uL 0 - 0.8 10*3/uL [place], [place] Monocytes/100 WBC (Bld) 11.2 % High 2 - 10 % [place] Platelet mean volume (Bld) [Entitic vol] 7.8 fL 7.4 - 10.4 fL [place] Platelets (Bld) [#/Vol] 264 10*3/uL 140 - 440 10*3/uL [place] RBC (Bld) [#/Vol] 3.52 10*6/uL Low 4.4 - 5.9 10*6/uL [place] WBC (Bld) [#/Vol] 5.1 10*3/uL 3.6 - 10.7 10*3/uL [place] Magnesiumon 06-21-2019 Magnesium [Mass/Vol] 1.8 mg/dL 1.6 - 2 .3 mg/dL [place] Metabolic Panelon 06-21-2019 Sodium [Moles/Vol] Slight [place] Otheron 06-21-2019 Test Performed by [facility], [address] , [address] Test Performed by [facility] [employer] [facility], [address] , [address] RBC MORPHOLOGYon 06-21-2019 RBC morphology finding Nom (Bld) ABNORMAL [place] Basic Metabolic Panelon Anion gap [Moles/Vol] 10 mmol/L [place] Calcium [Mass/Vol] 10.0 mg/dL 8.4 - 10. 4 mg/dL [place] Chloride [Moles/Vol] 103 mmol/L 98 - 10 7 mmol/L [place] CO2 [Moles/Vol] 28 mmol/L 22 - 30 mmol/L [place] Creatinine [Mass/Vol] 1.22 mg/dL 0.52 - 1.25 mg/dL [place] EGFR IF NonAfrican [place] >60.0 >60 mL/min [place] Comment on above: Source- MDRD equatio n with creatinine calibration to IDMS(NKDEP) eGFR not recommended for drug dose adjustment GFR/1.73 sq M predicted among blacks MDRD (S/P/Bld) [Vol rate/Area] mL/min/{1.73_m2} >60 mL/min [place] Glucose [Mass/Vol] 99 mg/dL 70 - 100 mg/dL [place] Potassium [Moles/Vol] 5.2 mmol/L High 3.5 - 5.1 mmol/L [place] Sodium [Moles/Vol] 141 mmol/L 135 - 145 mmol/L [place] Urea nitrogen [Mass/Vol] 34 mg/dL High 7 - 20 mg/dL [place] CBC Auto Differentialon 090 Absolute Baso # 0.0 10*3/uL 0 - 0.2 10*3/uL [place] Absolute Neut # 4.0 10*3/uL 1.8 - 7 10*3/uL [place] Basophils/100 WBC (Bld) 0.4 % 0 - 2 % [place] Eosinophils (Bld) [#/Vol] 0.1 10*3/uL 0 - 0.5 10*3/uL [place] Eosinophils/100 WBC (Bld) 1.1 % 1 - 6 % [place] Erythrocyte distribution width (RBC) [Ratio] 15.2 % High 11.5 - 14.5 % [place] Granulocytes/100 WBC (Bld) 62.4 % 40 - 80 % [place] Hematocrit (Bld) [Volume fraction] 39.1 % Low 40 - 52 % [place] Hemoglobin (Bld) [Mass/Vol] 13.3 g/dL 13 - 18 g/dL [place] Interpretation and review of laboratory results Abnormal [place] Lymphocytes (Bld) [#/Vol] 1.8 10*3/uL 1 - 4.3 10*3/uL [place] Lymphocytes/100 WBC (Bld) 27.8 % 20 - 40 % [place] MCH (RBC) [Entitic mass] 36.7 pg High 26 - 34 pg [place] MCHC (RBC) [Mass/Vol] 34.1 % 32 - 36 % [place] MCV (RBC) [Entitic vol] 107.5 fL High 80 - 98 fL [place] Monocytes (Bld) [#/Vol] 0.5 10*3/uL 0 - 0.8 10*3/uL [place] Monocytes/100 WBC (Bld) 8.3 % 2 - 10 % [place] Platelet mean volume (Bld) [Entitic vol] 7.6 fL 7.4 - 10.4 fL [place] Platelets (Bld) [#/Vol] 285 10*3/uL 140 - 440 10*3/uL [place] RBC (Bld) [#/Vol] 3.64 10*6/uL Low 4.4 - 5.9 10*6/uL [place] WBC (Bld) [#/Vol] 6.3 10*3/uL 3.6 - 10.7 10*3/uL [place] Test Performed by [facility] [employer] [facility], [address] , [address] Magnesiumon 06-19-2019 Magnesium [Mass/Vol] 1.5 mg/dL Low 1.6 - 2 .3 mg/dL [place] Otheron 06-19-2019 Interpretation and review of laboratory results Abnormal [place] Test Performed by [facility] [employer] [facility], [address] , [address] RBC MORPHOLOGYon 06-19-2019 RBC morphology finding Nom (Bld) ABNORMAL [place] Sodium [Moles/Vol] Moderate [place] Test Performed by [facility] [employer] [facility], [address] , [address] Basic Metabolic Panelon - Anion gap [Moles/Vol] 11 mmol/L [place] Calcium [Mass/Vol] 10.4 mg/dL 8.4 - 10. 4 mg/dL [place] Chloride [Moles/Vol] 108 mmol/L High 98 - 10 7 mmol/L [place] CO2 [Moles/Vol] 25 mmol/L 22 - 30 mmol/L [place] Creatinine [Mass/Vol] 1.07 mg/dL 0.52 - 1.25 mg/dL [place] EGFR IF NonAfrican [place]ian >60.0 >60 mL/min [place] Comment on above: Source- MDRD equatio n with creatinine calibration to IDMS(NKDEP) eGFR not recommended for drug dose adjustment GFR/1.73 sq M predicted among blacks MDRD (S/P/Bld) [Vol rate/Area] mL/min/{1.73_m2} >60 mL/min [place] Glucose [Mass/Vol] 107 mg/dL High 70 - 100 mg/dL [place] Interpretation and review of laboratory results Abnormal [place] Potassium [Moles/Vol] 5.2 mmol/L High 3.5 - 5.1 mmol/L [place] Sodium [Moles/Vol] 145 mmol/L 135 - 145 mmol/L [place] Urea nitrogen [Mass/Vol] 21 mg/dL High 7 - 20 mg/dL [place] CBC Auto Differentialon 05-18 Absolute Baso # 0.0 10*3/uL 0 - 0.2 10*3/uL [place] Absolute Neut # 4.3 10*3/uL 1.8 - 7 10*3/uL [place] Basophils/100 WBC (Bld) 0.4 % 0 - 2 % [place] Eosinophils (Bld) [#/Vol] 0.1 10*3/uL 0 - 0.5 10*3/uL [place] Eosinophils/100 WBC (Bld) 0.9 % Low 1 - 6 % [place] Erythrocyte distribution width (RBC) [Ratio] 15.6 % High 11.5 - 14.5 % [place] Granulocytes/100 WBC (Bld) 70.3 % 40 - 80 % [place] Hematocrit (Bld) [Volume fraction] 39.8 % Low 40 - 52 % [place] Hemoglobin (Bld) [Mass/Vol] 13.4 g/dL 13 - 18 g/dL [place] Interpretation and review of laboratory results Abnormal [place] Lymphocytes (Bld) [#/Vol] 1.2 10*3/uL 1 - 4.3 10*3/uL [place] Lymphocytes/100 WBC (Bld) 20.0 % 20 - 40 % [place] MCH (RBC) [Entitic mass] 36.5 pg High 26 - 34 pg [place] MCHC (RBC) [Mass/Vol] 33.7 % 32 - 36 % [place] MCV (RBC) [Entitic vol] 108.3 fL High 80 - 98 fL [place], [place] Monocytes (Bld) [#/Vol] 0.5 10*3/uL 0 - 0.8 10*3/uL [place] Monocytes/100 WBC (Bld) 8.4 % 2 - 10 % [place] Platelet mean volume (Bld) [Entitic vol] 7.1 fL Low 7.4 - 10.4 fL [place] Platelets (Bld) [#/Vol] 319 10*3/uL 140 - 440 10*3/uL [place] RBC (Bld) [#/Vol] 3.68 10*6/uL Low 4.4 - 5.9 10*6/uL [place] WBC (Bld) [#/Vol] 6.1 10*3/uL 3.6 - 10.7 10*3/uL [place] CKon 06-14-2019 Total CK 43 U/L 30 - 170 U/L [place] Magnesiumon 06-14-2019 Magnesium [Mass/Vol] 1.8 mg/dL 1.6 - 2 .3 mg/dL [place] Otheron 06-14-2019 [facility], [facility] [address] , [place], [place] [address] [place] RBC MORPHOLOGYon 06-14-2019 RBC morphology finding Nom (Bld) ABNORMAL [place] Sodium [Moles/Vol] Moderate [place] T4, Freeon 06-14-2019 Free T4 [Mass/Vol] 1.19 ng/dL 0.78 - 2. 19 ng/dL [place] TSH without Reflexon 019 TSH Qn 1.408 u[IU]/mL 0.465 - 4.68 u[IU]/mL [place] Basic Metabolic Panelon 05-18 Anion gap [Moles/Vol] 9 mmol/L [place] Calcium [Mass/Vol] 10.0 mg/dL 8.4 - 10. 4 mg/dL [place] Chloride [Moles/Vol] 105 mmol/L 98 - 10 7 mmol/L [place] CO2 [Moles/Vol] 27 mmol/L 22 - 30 mmol/L [place] Creatinine [Mass/Vol] 1 mg/dL 0.52 - 1.25 mg/dL [place] EGFR IF NonAfrican [place] >60.0 >60 mL/min [place] Comment on above: Source- MDRD equatio n with creatinine calibration to IDMS(NKDEP) eGFR not recommended for drug dose adjustment GFR/1.73 sq M predicted among blacks MDRD (S/P/Bld) [Vol rate/Area] mL/min/{1.73_m2} >60 mL/min [place] Glucose [Mass/Vol] 96 mg/dL 70 - 100 mg/dL [place] Potassium [Moles/Vol] 5.0 mmol/L 3.5 - 5.1 mmol/L [place] Sodium [Moles/Vol] 141 mmol/L 135 - 145 mmol/L [place] Urea nitrogen [Mass/Vol] 31 mg/dL High 7 - 20 mg/dL [place] CBC Auto Differentialon 05-18 Absolute Baso # 0.0 10*3/uL 0 - 0.2 10*3/uL [place] Absolute Neut # 4.3 10*3/uL 1.8 - 7 10*3/uL [place] Basophils/100 WBC (Bld) 0.3 % 0 - 2 % [facility], [place] Eosinophils (Bld) [#/Vol] 0.1 10*3/uL 0 - 0.5 10*3/uL [place] Eosinophils/100 WBC (Bld) 1.5 % 1 - 6 % [place] Erythrocyte distribution width (RBC) [Ratio] 15.1 % High 11.5 - 14.5 % [place] Granulocytes/100 WBC (Bld) 65.5 % 40 - 80 % [place] Hematocrit (Bld) [Volume fraction] 38.5 % Low 40 - 52 % [place] Hemoglobin (Bld) [Mass/Vol] 13.0 g/dL 13 - 18 g/dL [place] Interpretation and review of laboratory results Abnormal [place] Lymphocytes (Bld) [#/Vol] 1.6 10*3/uL 1 - 4.3 10*3/uL [place] Lymphocytes/100 WBC (Bld) 23.9 % 20 - 40 % [place] MCH (RBC) [Entitic mass] 36.7 pg High 26 - 34 pg [place] MCHC (RBC) [Mass/Vol] 33.8 % 32 - 36 % [place] MCV (RBC) [Entitic vol] 108.5 fL High 80 - 98 fL [place] Monocytes (Bld) [#/Vol] 0.6 10*3/uL 0 - 0.8 10*3/uL [place] Monocytes/100 WBC (Bld) 8.8 % 2 - 10 % [place] Platelet mean volume (Bld) [Entitic vol] 7.8 fL 7.4 - 10.4 fL [place] Platelets (Bld) [#/Vol] 325 10*3/uL 140 - 440 10*3/uL [place] RBC (Bld) [#/Vol] 3.55 10*6/uL Low 4.4 - 5.9 10*6/uL [place] WBC (Bld) [#/Vol] 6.5 10*3/uL 3.6 - 10.7 10*3/uL [place] Test Performed by [facility], [address] , [address] Gamma GTon 06-11-2019 Gamma glutamyl transferase [Catalytic activity/Vol] 78 U/L High 12 - 58 U/L [place] Hepatic Function Panelon Albumin [Mass/Vol] 4.1 g/dL 3.5 - 5 g/dL [place] ALP [Catalytic activity/Vol] 188 U/L High 38 - 126 U/L [place] ALT [Catalytic activity/Vol] 25 U/L 13 - 69 U/L [place] AST [Catalytic activity/Vol] 24 U/L 15 - 46 U/L [place] Bilirubin Ql (U) 0.4 mg/dL 0.2 - 1.3 mg/dL [place] Bilirubin.direct [Mass/Vol] 0.0 mg/dL 0 - 0.3 mg/dL [place] Protein [Mass/Vol] 6.8 g/dL 6.3 - 8.2 g/dL [place] Magnesiumon 06-11-2019 Magnesium [Mass/Vol] 1.8 mg/dL 1.6 - 2 .3 mg/dL [place] Otheron 06-11-2019 Interpretation and review of laboratory results Abnormal [place] Test Performed by [facility], [address] , [address] Phosphoruson 06-11-2019 Phosphate [Mass/Vol] 3.6 mg/dL 2.5 - 4 .5 mg/dL [place] Test Performed by [facility], [address] , [address] RBC MORPHOLOGYon 06-11-2019 RBC morphology finding Nom (Bld) ABNORMAL [place] Sodium [Moles/Vol] Moderate [place] Test Performed by [facility], [address] , [address] Uric Acidon 06-11-2019 Urate [Mass/Vol] 6.7 mg/dL 2.5 - 8.5 mg/dL [place] Basic Metabolic Panelon 05-17 Anion gap [Moles/Vol] 11 mmol/L [place] Calcium [Mass/Vol] 10.4 mg/dL 8.4 - 10. 4 mg/dL [place] Chloride [Moles/Vol] 102 mmol/L 98 - 10 7 mmol/L [place] CO2 [Moles/Vol] 29 mmol/L 22 - 30 mmol/L [place] Creatinine [Mass/Vol] 1.17 mg/dL 0.52 - 1.25 mg/dL [place] EGFR IF NonAfrican [place] >60.0 >60 mL/min [place], [place] Comment on above: Source- MDRD equatio n with creatinine calibration to IDMS(NKDEP) eGFR not recommended for drug dose adjustment GFR/1.73 sq M predicted among blacks MDRD (S/P/Bld) [Vol rate/Area] mL/min/{1.73_m2} >60 mL/min [place] Glucose [Mass/Vol] 97 mg/dL 70 - 100 mg/dL [place] Interpretation and review of laboratory results Abnormal [place] Potassium [Moles/Vol] 5.0 mmol/L 3.5 - 5.1 mmol/L [place] Sodium [Moles/Vol] 142 mmol/L 135 - 145 mmol/L [place] Urea nitrogen [Mass/Vol] 36 mg/dL High 7 - 20 mg/dL [place] CBC Auto Differentialon 05-17 Absolute Baso # 0.0 10*3/uL 0 - 0.2 10*3/uL [place] Absolute Neut # 5.1 10*3/uL 1.8 - 7 10*3/uL [place] Basophils/100 WBC (Bld) 0.3 % 0 - 2 % [place] Eosinophils (Bld) [#/Vol] 0.1 10*3/uL 0 - 0.5 10*3/uL [place] Eosinophils/100 WBC (Bld) 1.0 % 1 - 6 % [place] Erythrocyte distribution width (RBC) [Ratio] 15.8 % High 11.5 - 14.5 % [place] Granulocytes/100 WBC (Bld) 70.3 % 40 - 80 % [place] Hematocrit (Bld) [Volume fraction] 37.3 % Low 40 - 52 % [place] Hemoglobin (Bld) [Mass/Vol] 12.7 g/dL Low 13 - 18 g/dL [place] Interpretation and review of laboratory results Abnormal [place] Lymphocytes (Bld) [#/Vol] 1.5 10*3/uL 1 - 4.3 10*3/uL [place] Lymphocytes/100 WBC (Bld) 20.2 % 20 - 40 % [place] MCH (RBC) [Entitic mass] 36.6 pg High 26 - 34 pg [place] MCHC (RBC) [Mass/Vol] 34.0 % 32 - 36 % [place] MCV (RBC) [Entitic vol] 107.8 fL High 80 - 98 fL [place], [place] Comment on above: reran/rechecked Monocytes (Bld) [#/Vol] 0.6 10*3/uL 0 - 0.8 10*3/uL [place] Monocytes/100 WBC (Bld) 8.2 % 2 - 10 % [place], [place] Platelet mean volume (Bld) [Entitic vol] 7.6 fL 7.4 - 10.4 fL [place] Platelets (Bld) [#/Vol] 347 10*3/uL 140 - 440 10*3/uL [place] RBC (Bld) [#/Vol] 3.46 10*6/uL Low 4.4 - 5.9 10*6/uL [place] WBC (Bld) [#/Vol] 7.3 10*3/uL 3.6 - 10.7 10*3/uL [place] Magnesiumon 06-04-2019 Magnesium [Mass/Vol] 1.8 mg/dL 1.6 - 2 .3 mg/dL [place] Otheron 06-04-2019 Test Performed by [facility], [address] , [place], [place] [id number] [place] [address] Test Performed by [facility], [address] , [address] RBC MORPHOLOGYon 06-04-2019 Anisocytosis Ql (Bld) Slight [place], [place] RBC morphology finding Nom (Bld) ABNORMAL [place] Sodium [Moles/Vol] Moderate [place] Basic Metabolic Panelon 05-17 Anion gap [Moles/Vol] 7 mmol/L [place] Calcium [Mass/Vol] 9.9 mg/dL 8.4 - 10. 4 mg/dL [place] [place] Chloride [Moles/Vol] 110 mmol/L High 98 - 10 7 mmol/L [place] CO2 [Moles/Vol] 26 mmol/L 22 - 30 mmol/L [place] Creatinine [Mass/Vol] 0.96 mg/dL 0.52 - 1.25 mg/dL [place] EGFR IF NonAfrican [place] >60.0 >60 mL/min [place] Comment on above: Source- MDRD equatio n with creatinine calibration to IDMS(NKDEP) eGFR not recommended for drug dose adjustment GFR/1.73 sq M predicted among blacks MDRD (S/P/Bld) [Vol rate/Area] mL/min/{1.73_m2} >60 mL/min [place] Glucose [Mass/Vol] 106 mg/dL High 70 - 100 mg/dL [place] Interpretation and review of laboratory results Abnormal [place] Potassium [Moles/Vol] 5.5 mmol/L High 3.5 - 5.1 mmol/L [place] Sodium [Moles/Vol] 144 mmol/L 135 - 145 mmol/L [place] Urea nitrogen [Mass/Vol] 28 mg/dL High 7 - 20 mg/dL [place] CBC Auto Differentialon 05-17 Absolute Baso # 0.0 10*3/uL 0 - 0.2 10*3/uL [place] Absolute Neut # 4.5 10*3/uL 1.8 - 7 10*3/uL [place] Basophils/100 WBC (Bld) 0.3 % 0 - 2 % [place] Eosinophils (Bld) [#/Vol] 0.1 10*3/uL 0 - 0.5 10*3/uL [place] Eosinophils/100 WBC (Bld) 1.0 % 1 - 6 % [place] Erythrocyte distribution width (RBC) [Ratio] 15.9 % High 11.5 - 14.5 % [place] Granulocytes/100 WBC (Bld) 72.3 % 40 - 80 % [place] Hematocrit (Bld) [Volume fraction] 35.6 % Low 40 - 52 % [place] Hemoglobin (Bld) [Mass/Vol] 11.9 g/dL Low 13 - 18 g/dL [place] Interpretation and review of laboratory results Abnormal [place] Lymphocytes (Bld) [#/Vol] 1.0 10*3/uL 1 - 4.3 10*3/uL [place] Lymphocytes/100 WBC (Bld) 15.7 % Low 20 - 40 % [place] MCH (RBC) [Entitic mass] 36.3 pg High 26 - 34 pg [place] MCHC (RBC) [Mass/Vol] 33.4 % 32 - 36 % [place] MCV (RBC) [Entitic vol] 108.6 fL High 80 - 98 fL [place], [place] Monocytes (Bld) [#/Vol] 0.7 10*3/uL 0 - 0.8 10*3/uL [place] Monocytes/100 WBC (Bld) 10.7 % High 2 - 10 % [place] Platelet mean volume (Bld) [Entitic vol] 7.8 fL 7.4 - 10.4 fL [place] Platelets (Bld) [#/Vol] 276 10*3/uL 140 - 440 10*3/uL [place] RBC (Bld) [#/Vol] 3.28 10*6/uL Low 4.4 - 5.9 10*6/uL [place] WBC (Bld) [#/Vol] 6.3 10*3/uL 3.6 - 10.7 10*3/uL [place] Magnesiumon 05-28-2019 Magnesium [Mass/Vol] 2.0 mg/dL 1.6 - 2 .3 mg/dL [place] Otheron 05-28-2019 [facility], [address] , [address] Test Performed by Gust [facility], [address] , [address] RBC MORPHOLOGYon 05-28-2019 RBC morphology finding Nom (Bld) ABNORMAL [place] Sodium [Moles/Vol] Slight [place] Tacrolimus Levelon 9 [id number] (Tacrolimus) 12.2 ug/L 5 - 20 ug/L [place] Comment on above: Test performed using Chemiluminescent Microparticle Immunoassay (CMIA; Goss Photographic Double) Test Performed by Gust [facility], [address] [place] [id number] [place] [address] Lab Report: Basic Metabolic Profile (BMP)on 08-04-2017 Anion gap 7 mmol/L Invalid Interpretation Code 5-15 [facility] Work Phone: BUN/Creatinine Ratio 15.0 RATIO Invalid Interpretation Code 10-20 [facility] Work Phone: Calcium 9.4 mg/dL Invalid Interpretation Code 8.5-10.1 [facility] Work Phone: Chloride 98 mmol/L Invalid Interpretation Code 98-107 [facility] Work Phone: CO2 34.0 mmol/L High 21.0-32.0 [facility] Work Phone: Creatinine 0.73 mg/dL Invalid Interpretation Code 0.70-1.30 [facility] Work Phone: eGFR (non-black) 143 mL/min/{1.73_m2} Invalid Interpretation Code >60 [facility] Work Phone: eGFR (non-black) 118 mL/min/{1.73_m2} Invalid Interpretation Code >60 [facility] Work Phone: Glucose mass conc 94 mg/dL Invalid Interpretation Code 70-110 [facility] Phone: Potassium molar conc 4.2 mmol/L Invalid Interpretation Code 3.5-5.1 [facility] Phone: Sodium 139 mmol/L Invalid Interpretation Code 136-145 [facility] Phone: Urea nitrogen 11 mg/dL Invalid Interpretation Code 7-18 [facility] Phone: Office Visit: COPD stage 4on 08-04-2017 Documentation of current medications (procedure) Done Invalid Interpretation Code [facility] Phone: Tobacco smoking status NHIS Never Invalid Interpretation Code [facility] Phone: Tobacco use [facility] Former smoker Invalid Interpretation Code [facility] Phone: Rx Refill: eRx Request for I PRATROPIUM BROMIDE/ALBUTEROL SULFATE 0.5-2. ...on 08-04-2017 [id number]`IPRATROPIUM BROMIDE/ALBUTEROL SULFATE 0.5-2.5 (3) MG/3ML Solution```1080 Milliliter`90`INHALE THE CONTENTS OF 1 VIAL VIA NEBULIZER EVERY 6 HOURS``4`0`05/19/2017` No date sent`[facility]*`[id number]``IPRATROPIUM BROMIDE/ALBUTEROL SULFATE 0.5-2.5 (3) MG/3ML Solution Quantity: 1080 Milliliter Instructions: INHALE THE CONTENTS OF 1 VIAL VIA NEBULIZER EVERY 6 HOURS Better [facility] Phone: Office Visit: COPDon 017 Fall risk assessment No Invalid Interpretation Code [facility] Phone: Append: Pulmonary Rehab ([facility])on 01-11-2017 Clinical consultation report (record artifact) [id number]^12/17/19 17 Invalid Interpretation Code [facility] Phone: Office Visit: COPDon 016 Smoking cessation education (procedure) yes Invalid Interpretation Code [facility] Phone: Microbiology: Culture, Sputu mon 10-02-2015 Bacteria sputum culture . Invalid Interpretation Code [facility] Phone: External Other: [employer] thod of Contacton 09-30-2015 methcontact phone Invalid Interpretation Code [facility] Phone: Microbiology: Culture, Blood (WB)on 08-28-2015 Bacteria culture BCNo growth in 5 days. Invalid Interpretation Code [facility] Phone: Lab Report: Basic Metabolic Profile (BMP)on 08-25-2015 Creatinine 99.20 mL/min Invalid Interpretation Code [facility] Phone: Lab Report: Magnesiumon Magnesium 2.0 mg/dL Invalid Interpretation Code 1.8-2.4 [facility] Phone: Lab Report: Phosphoruson PHOS 3.1 mg/dL Invalid Interpretation Code 2.5-4.9 [facility] Work Phone: Lab Report: Base Excess ISTA Ton 08-23-2015 Base excess 11 mmol/L High -2 to +2 [facility] Work Phone: Lab Report: Bicarbonate ISTA Ton 08-23-2015 Bicarbonate (HCO3) 36 mmol/L High 22-26 [facility] Phone: Lab Report: Blood Gas Specim en Typeon 08-23-2015 BLD GAS TYPE ART Invalid Interpretation Code [facility] Work Phone: Lab Report: CBC W/Diff, Auto matedon 08-23-2015 Absolute Neut 7.0 X10 3/UL Invalid Interpretation Code 2.0-7.7 [facility] Work Phone: [phone] Basophils/100 WBC Auto (Bld) 0.1 % Invalid Interpretation Code 0-1 [facility] Work Phone: [phone] Eosinophils/100 leukocytes 1.3 % Invalid Interpretation Code 0-5 [facility] Work Phone: [phone] Erythrocyte distribution width Auto Ratio (RBC) 14.0 % Invalid Interpretation Code 11.6-14.6 [facility] Work Phone: [phone] Erythrocytes (RBC) 4.61 10*6/uL Invalid Interpretation Code 4.6-6.2 [facility] Phone: [phone] Hematocrit (HCT) 48.1 % Invalid Interpretation Code 40-54 [facility] Work Phone: [phone] Hemoglobin mass conc (Bld) 15.4 g/dL Invalid Interpretation Code 13.0-16.5 [facility] Work Phone: [phone] Immature granulocytes/100 WBC (Bld) 0.100 % Invalid Interpretation Code 0.0-0.9 [facility] Work Phone: [phone] Lymphocytes 1.09 X10 3/UL Invalid Interpretation Code 0.83-4.51 [facility] Work Phone: [phone] Lymphocytes/100 leukocytes 12.1 % Low 19-41 [facility] Work Phone: [phone] MCH 33.4 pg High 27.0-32.0 [facility] Work Phone: [phone] MCHC mass conc (RBC) 32.0 G/GL Invalid Interpretation Code 32-36 [facility] Work Phone: [phone] MCV 104.3 fL High 80-94 [facility] Work Phone: [phone] Monocytes/100 leukocytes 8.3 % Invalid Interpretation Code 0-10 [facility] Work Phone: [phone] Neutrophils/100 WBC Auto (Bld) 78.1 % High 47-70 [facility] Work Phone: [phone] Platelets 200 10*3/mm3 Invalid Interpretation Code 150-450 [facility] Work Phone: [phone] PMV by Murtaza 9.9 fL Invalid Interpretation Code 6.2-12.0 [facility] Work Phone: [phone] RDW SD 53.5 fL High 35.1-43.9 [facility] Work Phone: [phone] WBC (Leukocytes) 9.0 10*3/uL Invalid Interpretation Code 4.4-11.0 [facility] Work Phone: Lab Report: Lactic Acidon Lactate 0.9 mmol/L Invalid Interpretation Code 0.4-2.0 [facility] Work Phone: [phone] Lab Report: M R Staph Aureus DNA by PCRon 08-23-2015 INR Coag RelTime (Bld) Negative Invalid Interpretation Code Negative [facility] Phone: Lab Report: PO2 I-Karolina Oxygen in arterial blood 62 mm[Hg] Low 75-100 [facility] Work Phone: Lab Report: [facility] 110 O2 saturation 90 % Low 95-99 [facility] Work Phone: [phone] Lab Report: Total Carbon Oscar xide ISTATon 08-23-2015 CO2 37 mmol/L Invalid Interpretation Code [facility] Work Phone: [phone] Lab Report: Troponin-Ion Troponin I.cardiac mass conc ng/mL Invalid Interpretation Code <0.06 [facility] Work Phone: [phone] Lab Report: pCO2 - ISTATon 1 10-23-2014 CO2 59.0 mm[Hg] High 35-45 [facility] Work Phone: [phone] Lab Report: pH - I-Karolina pH of blood 7.39 [pH] Invalid Interpretation Code 7.35-7.45 [facility] Work Phone: Vital Signs Date Time Vital Sign Value Performing Clinician Facility 06-05-2024 09:34-0400 Body height 177.8 cm Kermit Ivy MD Work Phone: [facility] 06-05-2024 09:34-0400 Body mass index (BMI) [Ratio] 31.71 kg/m2 Kermit Ivy MD Work Phone: [facility] 06-05-2024 09:34-0400 Body weight 100.25 kg Kermit Ivy MD Work Phone: [facility] 06-05-2024 09:34-0400 Respiratory rate 16 /min Kermit Ivy MD Work Phone: [facility] 05-10-2024 13:54-0400 Body height 180.3 cm Nick Lopez MD Work Phone: [facility] 05-10-2024 13:54-0400 Body mass index (BMI) [Ratio] 29.85 kg/m2 Nick Lopez MD Work Phone: [facility] 05-10-2024 13:54-0400 Body temperature 97.59 [degF] Nick Lopez MD Work Phone: [facility] 05-10-2024 13:54-0400 Body weight 97.07 kg Nick Lopez MD Work Phone: [facility] 05-10-2024 13:54-0400 Diastolic blood pressure 85 mm[Hg] Nick Lopez MD Work Phone: [facility] 05-10-2024 13:54-0400 Heart rate 72 /min Nick Lopez MD Work Phone: [facility] 05-10-2024 13:54-0400 Respiratory rate 16 /min Nick Lopez MD Work Phone: [facility] 05-10-2024 13:54-0400 SaO2% (BldA) [Mass fraction] 97 % Nick Lopez MD Work Phone: [facility] Comment on above: RA 05-10-2024 13:54-0400 Systolic blood pressure 136 mm[Hg] Nick Lopez MD Work Phone: [facility] 03-23-2024 09:29-0400 Body height 173.5 cm [facility] Comment on above: was 5'11'' 03-23-2024 09:29-0400 Body mass index (BMI) [Ratio] 32.4 kg/m2 [facility] 03-23-2024 09:29-0400 Body weight 97.52 kg [facility] 03-23-2024 09:29-0400 Diastolic blood pressure 90 mm[Hg] [facility] 03-23-2024 09:29-0400 Heart rate 67 /min [facility] 03-23-2024 09:29-0400 SaO2% (BldA) [Mass fraction] 96 % [facility] 03-23-2024 09:29-0400 Systolic blood pressure 144 mm[Hg] [facility] 03-20-2024 10:21-0400 Body height 177.8 cm Kermit Ivy MD Work Phone: [facility] 03-20-2024 10:21-0400 Body mass index (BMI) [Ratio] 31.82 kg/m2 Kermit Ivy MD Work Phone: [facility] 03-20-2024 10:21-0400 Body weight 100.61 kg Kermit Ivy MD Work Phone: [facility] 03-20-2024 10:21-0400 Respiratory rate 20 /min Kermit Ivy MD Work Phone: [facility] 11-07-2023 13:29-0500 Body height 175.3 cm Akbar Davis DO Work Phone: [facility] 11-07-2023 13:29-0500 Body mass index (BMI) [Ratio] 33.52 kg/m2 Akbar Strangeandreykarlie DO Work Phone: [facility] 11-07-2023 13:29-0500 Body temperature 98.01 [degF] Akbar Davis DO Work Phone: [facility] 11-07-2023 13:29-0500 Body weight 102.97 kg Akbarhans Strangeandreykarlie DO Work Phone: [facility] 11-07-2023 13:29-0500 Diastolic blood pressure 90 mm[Hg] Akbar Davis DO Work Phone: [facility] 11-07-2023 13:29-0500 Heart rate 91 /min Akbar Davis DO Work Phone: [facility] 11-07-2023 13:29-0500 Respiratory rate 16 /min Akbarhans Strangeandreykarlie DO Work Phone: [facility] 11-07-2023 13:29-0500 SaO2% (BldA) [Mass fraction] 96 % Akbarhans Davis DO Work Phone: [facility] Comment on above: RA 11-07-2023 13:29-0500 Systolic blood pressure 159 mm[Hg] Akbar Davis DO Work Phone: [facility] 05-21-2023 02:49-0400 Body mass index (BMI) [Ratio] 27.02 kg/m2 Gabriel Alzaeim ALEX/BC Work Phone: [facility] 05-21-2023 02:49-0400 Body temperature 97.59 [degF] Gabriel Alzaeim MB/BC Work Phone: [facility] 05-21-2023 02:49-0400 Body weight 90.36 kg Gabriel Alzaeim MB/BCH Work Phone: [facility] Comment on above: standing weight 05-21-2023 02:49-0400 Diastolic blood pressure 80 mm[Hg] Gabriel Alzaeim MB/BCH Work Phone: [facility] 05-21-2023 02:49-0400 Heart rate 65 /min Gabriel Alzaeim MB/BCH Work Phone: [facility] 05-21-2023 02:49-0400 Respiratory rate 22 /min Gabriel Alzaeim MB/BCH Work Phone: [facility] 05-21-2023 02:49-0400 SaO2% (BldA) [Mass fraction] 95 % Gabriel Alzaeim MB/BCH Work Phone: [facility] 05-21-2023 02:49-0400 Systolic blood pressure 139 mm[Hg] Gabriel Alzaeim MB/BCH Work Phone: [facility] 05-16-2023 19:01-0400 Body height 182.9 cm Gabriel Alzaeim MB/BCH Work Phone: [facility] 05-16-2023 16:16-0400 Diastolic blood pressure 84 mm[Hg] Audra Skiffey DO Work Phone: [facility] 05-16-2023 16:16-0400 Heart rate 64 /min Audra Skiffey DO Work Phone: [facility] 05-16-2023 16:16-0400 Respiratory rate 15 /min Audra Skiffey DO Work Phone: [facility] 05-16-2023 16:16-0400 SaO2% (BldA) [Mass fraction] 100 % Audra Skiffey DO Work Phone: [facility] 05-16-2023 16:16-0400 Systolic blood pressure 100 mm[Hg] Audra Rakanffey DO Work Phone: [facility] 05-16-2023 14:00-0400 Body temperature 97.3 [degF] Audra Chavarria DO Work Phone: [facility] 05-16-2023 12:37-0400 SaO2% (BldA) [Mass fraction] 80.2 % Audra Chavarria DO Work Phone: [facility] 05-16-2023 08:10-0400 Body height 182.9 cm Audra Chavarria DO Work Phone: [facility] 05-16-2023 06:00-0400 Body mass index (BMI) [Ratio] 26.91 kg/m2 Audra Chavarria DO Work Phone: [facility] 05-16-2023 06:00-0400 Body weight 90 kg Audra Chavarria DO Work Phone: [facility] 05-15-2023 21:20-0400 SaO2% (BldA) [Mass fraction] 99.3 % Audra Chavarria DO Work Phone: [facility] 05-09-2023 13:47-0400 Body height 182.9 cm Christelle Espino MD Work Phone: [facility] 05-09-2023 13:47-0400 Body mass index (BMI) [Ratio] 28.58 kg/m2 Christelle Espino MD Work Phone: [facility] 05-09-2023 13:47-0400 Body weight 95.57 kg Christelle Espino MD Work Phone: [facility] 05-09-2023 13:47-0400 Diastolic blood pressure 73 mm[Hg] Christelle Espino MD Work Phone: [facility] 05-09-2023 13:47-0400 Heart rate 60 /min Christelle Espino MD Work Phone: [facility] 05-09-2023 13:47-0400 Respiratory rate 18 /min Christelle Espino MD Work Phone: [facility] 05-09-2023 13:47-0400 SaO2% (BldA) [Mass fraction] 97 % Christelle Espino MD Work Phone: [facility] Comment on above: 05-09-2023 13:47-0400 Systolic blood pressure 149 mm[Hg] Christelle Espino MD Work Phone: [facility] 12-27-2022 13:00-0400 Heart rate 72 /min Tomasz Troncoso MD Work Phone: [facility] 12-27-2022 13:00-0400 Respiratory rate 18 /min Tomasz Troncoso MD Work Phone: [facility] 12-27-2022 13:00-0400 SaO2% (BldA) [Mass fraction] 98 % Tomasz Troncoso MD Work Phone: [facility] Comment on above: 11-08-2022 14:40-0500 Body height 180.3 cm Akbar Davis DO Work Phone: [facility] 11-08-2022 14:40-0500 Body mass index (BMI) [Ratio] 30.47 kg/m2 Akbar Davis DO Work Phone: [facility] 11-08-2022 14:40-0500 Body temperature 98.01 [degF] Akbar Davis DO Work Phone: [facility] 11-08-2022 14:40-0500 Body weight 99.11 kg Akbar Davis DO Work Phone: [facility] 11-08-2022 14:40-0500 Diastolic blood pressure 72 mm[Hg] Akbar Davis DO Work Phone: [facility] 11-08-2022 14:40-0500 Heart rate 67 /min Akbar Davis DO Work Phone: [facility] 11-08-2022 14:40-0500 Respiratory rate 16 /min Akbar Dvais DO Work Phone: [facility] 11-08-2022 14:40-0500 SaO2% (BldA) [Mass fraction] 95 % Akbar Davis DO Work Phone: [facility] Comment on above: RA 11-08-2022 14:40-0500 Systolic blood pressure 112 mm[Hg] Akbar Davis DO Work Phone: [facility] 07-30-2022 11:14-0400 Body height 182.9 cm Nick Lopez MD Work Phone: [facility] 07-30-2022 11:14-0400 Body mass index (BMI) [Ratio] 28.21 kg/m2 Nick Lopez MD Work Phone: [facility] 07-30-2022 11:14-0400 Body weight 94.35 kg Nick Lopez MD Work Phone: [facility] 05-31-2022 09:00-0400 Body height 182.9 cm Nick Lopez MD Work Phone: [facility] 05-31-2022 09:00-0400 Body mass index (BMI) [Ratio] 28.62 kg/m2 Nick Lopez MD Work Phone: [facility] 05-31-2022 09:00-0400 Body weight 95.71 kg Nick Lopez MD Work Phone: [facility] 05-11-2022 10:24-0400 Body mass index (BMI) [Ratio] 28.48 kg/m2 [facility] 05-11-2022 10:24-0400 Body temperature 97.3 [degF] [facility] 05-11-2022 10:24-0400 Body weight 95.25 kg [facility] 05-11-2022 10:24-0400 Diastolic blood pressure 70 mm[Hg] [facility] 05-11-2022 10:24-0400 Heart rate 60 /min [facility] 05-11-2022 10:24-0400 Systolic blood pressure 139 mm[Hg] [facility] 05-03-2022 14:39-0400 Body height 182.9 cm Nick Lopez MD Work Phone: [facility] 05-03-2022 14:39-0400 Body mass index (BMI) [Ratio] 28.2 kg/m2 Nick Lopez MD Work Phone: [phone] 05-03-2022 14:39-0400 Body temperature 97.7 [degF] Nick Lopez MD Work Phone: [facility] 05-03-2022 14:39-0400 Body weight 94.3 kg Nick Lopez MD Work Phone: [facility] 05-03-2022 14:39-0400 Diastolic blood pressure 70 mm[Hg] Nick Lopez MD Work Phone: [facility] 05-03-2022 14:39-0400 Heart rate 57 /min Nick Lopez MD Work Phone: [facility] 05-03-2022 14:39-0400 Respiratory rate 16 /min Nick Lopez MD Work Phone: [facility] 05-03-2022 14:39-0400 SaO2% (BldA) [Mass fraction] 98 % Nick Lopez MD Work Phone: [facility] Comment on above: 05-03-2022 14:39-0400 Systolic blood pressure 128 mm[Hg] Nick Lopez MD Work Phone: [facility] 03-30-2022 11:11-0400 Heart rate 80 /min Nick Lopez MD Work Phone: [facility] 03-30-2022 11:11-0400 Respiratory rate 18 /min Nick Lopez MD Work Phone: [facility] 03-30-2022 11:11-0400 SaO2% (BldA) [Mass fraction] 98 % Nick Lopez MD Work Phone: [facility] 03-29-2022 23:30-0400 Body temperature 98.6 [degF] Velia Clark MD Work Phone: [facility] 03-29-2022 23:30-0400 Diastolic blood pressure 89 mm[Hg] Velia Clark MD Work Phone: [facility] 03-29-2022 23:30-0400 Heart rate 74 /min Velia Clark MD Work Phone: [facility] 03-29-2022 23:30-0400 Respiratory rate 16 /min Velia Clark MD Work Phone: [facility] 03-29-2022 23:30-0400 SaO2% (BldA) [Mass fraction] 97 % Velia Clark MD Work Phone: [facility] 03-29-2022 23:30-0400 Systolic blood pressure 135 mm[Hg] Velia Clark MD Work Phone: [facility] 02-22-2022 15:26-0400 Body temperature 96.91 [degF] [facility] 02-22-2022 15:26-0400 Diastolic blood pressure 78 mm[Hg] [facility] 02-22-2022 15:26-0400 Heart rate 64 /min [facility] 02-22-2022 15:26-0400 Respiratory rate 18 /min [facility] 02-22-2022 15:26-0400 SaO2% (BldA) [Mass fraction] 94 % [facility] 02-22-2022 15:26-0400 Systolic blood pressure 121 mm[Hg] [facility] 09-21-2021 11:48-0500 Body height 182.9 cm b 1 [facility] 09-21-2021 11:48-0500 Body mass index (BMI) [Ratio] 27.8 kg/m2 [facility] 1 [facility] 09-21-2021 11:48-0500 Body weight 92.99 kg b 1 [facility] 09-01-2021 19:58-0500 Body height 182.9 cm Liana Malys Work Phone: [facility] 09-01-2021 19:58-0500 Body mass index (BMI) [Ratio] 27.8 kg/m2 Liana Malys Work Phone: [facility] 09-01-2021 19:58-0500 Body temperature 97.39 [degF] Liana Malys Work Phone: [facility] 09-01-2021 19:58-0500 Body weight 92.99 kg Liana Malys Work Phone: [facility] 09-01-2021 19:58-0500 Diastolic blood pressure 85 mm[Hg] Liana Malys Work Phone: [facility] 09-01-2021 19:58-0500 Heart rate 68 /min Liana Malys Work Phone: [facility] 09-01-2021 19:58-0500 Respiratory rate 20 /min Liana Malys Work Phone: [facility] 09-01-2021 19:58-0500 SaO2% (BldA) [Mass fraction] 97 % Liana Malys Work Phone: [facility] 09-01-2021 19:58-0500 Systolic blood pressure 177 mm[Hg] Liana Malys Work Phone: [facility] 04-29-2021 13:05-0400 Body height 180.3 cm Ach 02 [employer] Work Phone: 04-29-2021 13:05-0400 Body mass index (BMI) [Ratio] 27.62 kg/m2 Ach 02 [employer] Work Phone: 04-29-2021 13:05-0400 Body weight 89.81 kg Ach 02 [employer] Work Phone: 12-16-2020 17:00-0500 Body Temperature 97.11 [degF] Layla Simmons [employer] Work Phone: 12-16-2020 17:00-0500 BP Diastolic 98 mm[Hg] Giovannya Troy [employer] Work Phone: 12-16-2020 17:00-0500 BP Systolic 144 mm[Hg] Layla Simmons [employer] Work Phone: 12-16-2020 17:00-0500 Pulse (Heart Rate) 68 /min Layla Simmons [employer] Work Phone: 12-16-2020 17:00-0500 Pulse Oximetry 95 % Layla [employer] Work Phone: 12-16-2020 17:00-0500 Respiratory Rate 18 /min Layla [employer] Work Phone: 12-16-2020 13:18-0500 BMI (Body Mass Index) 28.48 kg/m2 Layla Simmons [employer] Work Phone: 12-16-2020 13:18-0500 Body weight 95.25 kg Layla [employer] Work Phone: 12-16-2020 13:18-0500 Height 182.9 cm Layla [employer] Work Phone: 09-16-2020 09:35-0500 BMI (Body Mass Index) 28.35 kg/m2 [place] 09-16-2020 09:35-0500 Body weight 94.8 kg [facility] [place] , [place] 09-16-2020 09:35-0500 Pulse (Heart Rate) 87 /min [facility] [place], [place] 09-16-2020 09:35-0500 Pulse Oximetry 96 % [facility] [place] , [place] 09-16-2020 09:35-0500 Respiratory Rate 18 /min [facility] [place] 03-04-2020 14:41-0400 BMI (Body Mass Index) 27.8 kg/m2 [facility] [place], [place] 03-04-2020 14:41-0400 Body weight 92.99 kg [facility] [place] , [place] 03-04-2020 14:41-0400 Height 182.9 cm [facility] , [place] 03-04-2020 14:41-0400 Pulse (Heart Rate) 84 /min [facility], [place] 03-04-2020 14:41-0400 Pulse Oximetry 97 % [facility] [place] 03-04-2020 14:41-0400 Respiratory Rate 20 /min [facility] [place] 08-14-2019 17:00-0400 Body Temperature 97 [degF] [facility] [place] 08-14-2019 17:00-0400 BP Diastolic 98 mm[Hg] [facility] [place] 08-14-2019 17:00-0400 BP Systolic 159 mm[Hg] [facility] [place] , [place] 08-14-2019 17:00-0400 Pulse (Heart Rate) 70 /min [facility] [place], [place] 08-14-2019 17:00-0400 Pulse Oximetry 95 % [facility] [place] , [place] 08-14-2019 17:00-0400 Respiratory Rate 16 /min [facility] [place] 08-14-2019 12:17-0400 BMI (Body Mass Index) 25.94 kg/m2 [facility] [place] 08-14-2019 12:17-0400 Body weight 84.37 kg [facility] [place] , [place] 08-14-2019 12:17-0400 Height 180.3 cm [facility]la [facility] , [place] 08-13-2019 16:37-0400 Body Temperature 98.8 [degF] [facility] [place] [place] Comment on above: temporal 08-13-2019 15:34-0400 BMI (Body Mass Index) 25.94 kg/m2 Layla Simmons [facility] [place], [place] 08-13-2019 15:34-0400 Body weight 84.37 kg [facility] [place] 08-13-2019 15:34-0400 BP Diastolic 88 mm[Hg] [facility] , [place] 08-13-2019 15:34-0400 BP Systolic 139 mm[Hg] [facility] [place] 08-13-2019 15:34-0400 Height 180.3 cm [facility] , [place] 08-13-2019 15:34-0400 Pulse (Heart Rate) 93 /min [facility] [place], [place] 08-13-2019 15:34-0400 Pulse Oximetry 97 % [facility] SprayS[facility] , [place] 08-13-2019 15:34-0400 Respiratory Rate 16 /min [facility], [place] 08-04-2017 06:25-0400 BMI (Body Mass Index) 18.6 kg/m2 [facility] Work Phone: 08-04-2017 06:25-0400 Body Temperature 98.2 [degF] [facility] Work Phone: 08-04-2017 06:25-0400 BP Diastolic 84 mm[Hg] [facility] Work Phone: 08-04-2017 06:25-0400 BP Systolic 141 mm[Hg] [facility] Work Phone: 08-04-2017 06:25-0400 Height 175.26 cm [facility] [employer] Work Phone: 08-04-2017 06:25-0400 Inhaled O2 2.5 [employer] [facility] Work Phone: 08-04-2017 06:25-0400 Pulse (Heart Rate) 95 /min [employer] [facility] Work Phone: 08-04-2017 06:25-0400 Respiratory Rate 18 /min [employer] [facility] Work Phone: 08-04-2017 06:25-0400 Weight 57.15 kg [employer] [facility] Work Phone: 12-16-2016 11:12-0500 Pulse (Heart Rate) 98 /min [employer] [facility] Work Phone: 07-29-2016 13:11-0400 Body Temperature 97.88 [degF] [employer] [facility] Work Phone: 07-29-2016 13:11-0400 BSA (Body Surface Area) 1.6 m2 [employer] [facility] Work Phone: 07-29-2016 13:11-0400 Height 175.26 cm [employer] [facility] Work Phone: 07-29-2016 13:11-0400 Weight 50 kg [employer] [facility] Work Phone: Encounters Encounter Date Encounter Type Care Provider Facility Start: 08-01-2024 End: 08-01-2024 ambulatory [facility] Start: 08-01-2024 End: 08-01-2024 Subsequent hospital visit by physician Tomasz Troncoso MD Work Phone: [facility] Comment on above: Arrived Start: 06-28-2024 End: 06-28-2024 Subsequent hospital visit by physician Tomasz Troncoso MD Work Phone: [facility] Comment on above: Arrived Start: 06-28-2024 End: 06-28-2024 ambulatory [facility] Start: 06-05-2024 End: 06-05-2024 Patient encounter procedure Kermit Ivy MD Work Phone: [facility] Comment on above: Right shoulder pain, unspecified chronicity (Primary Dx) Start: 06-05-2024 End: 06-05-2024 ambulatory [facility] Facility:[facility] Start: 05-30-2024 End: 05-30-2024 ambulatory [facility] Start: 05-30-2024 End: 05-30-2024 Subsequent hospital visit by physician Tomasz Troncoso MD Work Phone: [facility] Comment on above: Arrived Start: 05-15-2024 End: 05-15-2024 ambulatory Lena Trejo BUCKLE ASSEMBLER Work Phone: [facility] Comment on above: Chronic right should er pain (Primary Dx) Start: 05-10-2024 End: 05-10-2024 Subsequent hospital visit by physician Nick Lopez MD Work Phone: [facility] Comment on above: Arrived Start: 05-10-2024 ambulatory NICK LOPEZ Facility :[facility] Start: 05-10-2024 End: 05-10-2024 Office outpatient visit 25 minutes Nick Lopez MD Work Phone: [facility] Comment on above: S/P lung transplant (Primary Dx); Abnormal blood chemistry; Encounter for aftercare following lung transplant; Pain of left hip; Acute right ankle pain Start: 05-10-2024 ambulatory [facility] Facility:[facility] Start: 05-10-2024 End: 05-10-2024 Subsequent hospital visit by physician Nick Lopez MD Work Phone: Cardiovascular Imaging Lab [facility] Comment on above: Arrived Start: 05-07-2024 End: 05-07-2024 ambulatory Ar Garcia PT Work Phone: [facility] Comment on above: Chronic right should er pain (Primary Dx) Start: 05-02-2024 End: 05-02-2024 ambulatory Lena Scales Maya BUCKLE ASSEMBLER Work Phone: [facility] Comment on above: Chronic right should er pain (Primary Dx) Start: 04-24-2024 End: 04-24-2024 ambulatory Lena Scales Maya BUCKLE ASSEMBLER Work Phone: [facility] Comment on above: Chronic right should er pain (Primary Dx) Start: 04-23-2024 Telephone encounter Kermit Ivy MD Work Phone: [facility] Comment on above: Appointment Start: 04-12-2024 End: 04-12-2024 ambulatory Lena Chloe Trejo [employer]CKLE ASSEMBLER Work Phone: [facility] Comment on above: Chronic right should er pain (Primary Dx) Start: 04-04-2024 End: 04-18-2024 Telephone encounter Majo Hightower INTERIOR HORTICULTURIST - FINISHER [employer] Work Phone: [facility] Comment on above: Returning call to Tarah arnold Start: 03-30-2024 End: 03-30-2024 Subsequent hospital visit by physician Tomasz Troncoso MD Work Phone: [facility] Comment on above: Lung transplant stat us (HCC); Immunodeficiency, unspecified (HCC) Start: 03-30-2024 End: 03-30-20[facility] Start: 03-29-2024 End: 03-29-2024 ambulatory Ar Garcia PT Work Phone: [facility] Comment on above: Chronic right should er pain (Primary Dx) Start: 03-27-2024 Orders Only Majo oliveros INTERIOR HORTICULTURIST - FINISHER [employer] Work Phone: [facility] [place] Comment on above: Other osteoporosis w ithout current pathological fracture (Primary Dx); Current use of steroid medication; History of recurrent vertebral fractures; Fracture Risk Assessment Score (FRAX) indicating greater than 20% risk for major osteoporosis-related fracture; Fracture Risk Assessment Score (FRAX) indicating greater than 3% risk for hip fracture; History of lung transplant ([facility]) Start: 03-23-2024 End: 03-23-2024 Office outpatient new 45 minutes Liana Loja Work Phone: [facility] [place] Comment on above: Other osteoporosis w ithout current pathological fracture (Primary Dx); Current use of steroid medication; History of recurrent vertebral fractures; Fracture Risk Assessment Score (FRAX) indicating greater than 20% risk for major osteoporosis-related fracture; Fracture Risk Assessment Score (FRAX) indicating greater than 3% risk for hip fracture; History of lung transplant ([facility]) Start: 03-23-2024 End: 03-23-2024 ambulatory [facility] Start: 03-20-2024 End: 03-20-2024 Patient encounter procedure Kermit Ivy MD Work Phone: [facility] Comment on above: Right shoulder pain, unspecified chronicity (Primary Dx) Start: 03-20-2024 End: 03-20-2024 ambulatory LIANA LOJA Facility:[facility] Start: 02-29-2024 End: 02-29-2024 Subsequent hospital visit by physician Tomasz Troncoso MD Work Phone: [facility] Comment on above: Arrived Start: 02-29-2024 End: 02-29-2024 ambulatory [facility] Start: 01-30-2024 End: 01-30-2024 Subsequent hospital visit by physician Tomasz Troncoso MD Work Phone: [facility] Comment on above: Arrived Start: 01-30-2024 End: 01-30-2024 ambulatory [facility] Start: 12-30-2023 End: 12-30-2023 Subsequent hospital visit by physician Tomasz Troncoso MD Work Phone: [facility] Comment on above: Lung transplant stat us ([facility]) Start: 12-30-2023 End: 12-30-2023 ambulatory [facility] Start: 12-15-2023 Telephone encounter Majo Hightower INTERIOR HORTICULTURIST - FINISHER [employer] Work Phone: [facility] [place] Comment on above: Appt needs reschedul ed (Needs to reschedule appt. Has covid.) Start: 12-14-2023 Transcribe Orders Tomasz Troncoso MD Work Phone: [facility] Scheduling Comment on above: Lung transplant stat us (HCC) (Primary Dx); Immunodeficiency, unspecified (HCC) Lung transplant stat us (HCC) (Primary Dx) Start: 11-30-2023 End: 11-30-2023 Subsequent hospital visit by physician Tomasz Troncoso MD Work Phone: [facility] Comment on above: Lung transplant stat us (HCC); Immunodeficiency, unspecified (HCC) Start: 11-29-2023 End: 11-30-2023 ambulatory [facility] Start: 11-07-2023 End: 11-07-2023 Office outpatient visit 40 minutes Nick Lopez MD Work Phone: [facility] Comment on above: S/P lung transplant (Primary Dx); Immunosuppressed status; High risk medication use; Therapeutic drug monitoring; Current chronic use of systemic steroids; 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; Osteoporosis, unspecified osteoporosis type, unspecified pathological fracture presence; Encounter for aftercare following lung transplant Start: 11-07-2023 ambulatory NICK LOPEZ Facility :[facility] Start: 11-07-2023 ambulatory [facility] Facility:[facility] Start: 11-03-2023 End: 11-03-2023 Subsequent hospital visit by physician Travis Hansen Work Phone: [facility] Comment on above: Primary generalized (osteo)arthritis Start: 11-03-2023 End: 11-03-2023 ambulatory [facility] Start: 09-30-2023 End: 09-30-2023 Subsequent hospital visit by physician Tomasz Troncoso MD Work Phone: [facility] Comment on above: Lung transplant stat us (HCC); Immunodeficiency, unspecified (HCC) Start: 09-30-2023 End: 09-30-2023 ambulatory [facility] Start: 08-16-2023 End: 08-16-2023 Subsequent hospital visit by physician Liana Loja Work Phone: [facility] Comment on above: Pain in right arm; Radiculopathy, cervical region; Encephalopathy, unspecified; Other symptoms and signs involving cognitive functions and awareness Start: 08-16-2023 End: 08-16-2023 ambulatory [facility] Start: 08-05-2023 End: 08-05-2023 ambulatory [facility] Start: 08-05-2023 End: 08-05-2023 Subsequent hospital visit by physician Liana Loja Work Phone: [facility] MRI Comment on above: Pain in right arm; Radiculopathy, cervical region; Encephalopathy, unspecified; Other symptoms and signs involving cognitive functions and awareness Start: 08-01-2023 End: 08-01-2023 Subsequent hospital visit by physician Tomasz Troncoso MD Work Phone: [facility] Comment on above: Lung transplant stat us (HCC); Immunodeficiency, unspecified (HCC) Start: 07-04-2023 End: 07-04-2023 Subsequent hospital visit by physician Tomasz Troncoso MD Work Phone: [facility] Comment on above: Lung transplant stat us (HCC); Immunodeficiency, unspecified (HCC) Start: 05-31-2023 End: 05-31-2023 Subsequent hospital visit by physician Tomasz Troncoso MD Work Phone: [facility] Pul[facility] Function Test Comment on above: Lung transplant stat us (HCC); Immunodeficiency, unspecified (HCC) Start: 05-26-2023 Transcribe Orders Tomasz Troncoso MD Work Phone: [facility] Sched[facility] Comment on above: Lung transplant stat us (HCC) (Primary Dx); Immunodeficiency, unspecified (HCC) Start: 05-16-2023 End: 05-21-2023 Evaluation and management of inpatient Devon Barbosa MD Work Phone: [id number] Comment on above: Altered mental statu s Start: 05-15-2023 End: 05-16-2023 Evaluation and management of inpatient Audra Chavarria DO Work Phone: [facility] ICU T3 Comment on above: Acute respiratory fa ilure with hypoxia and hypercapnia (CMS/HCC) (HCC) (Primary Dx); Chest pain, unspecified type; Seizure (HCC); ISAIAS (acute kidney injury) (CMS/HCC) (HCC); Lung transplant recipient ([facility]) Start: 05-09-2023 End: 05-09-2023 Office outpatient visit 25 minutes Nick Lopez MD Work Phone: [facility] Comment on above: Encounter for afterc are following lung transplant (Primary Dx); Therapeutic drug monitoring; High risk medication use; Immunosuppression Start: 03-28-2023 End: 03-28-2023 Subsequent hospital visit by physician Tomasz Troncoso MD Work Phone: [facility] Pulm Function Test Comment on above: Lung transplant reci pient (HCC) Start: 01-24-2023 End: 01-24-2023 Subsequent hospital visit by physician Tomasz Troncoso MD Work Phone: [facility] Pulm Function Test Comment on above: Lung transplant reci pient (HCC) Start: 12-27-2022 End: 12-27-2022 Subsequent hospital visit by physician Tomasz Troncoso MD Work Phone: [facility] Pulm Function Test Comment on above: Lung transplant reci pient (HCC) Start: 12-14-2022 Transcribe Orders Tomasz Troncoso MD Work Phone: [facility] Sched[facility] Comment on above: Lung transplant reci pient (HCC) (Primary Dx) Start: 11-08-2022 End: 11-08-2022 Office outpatient visit 40 minutes Nick Lopez MD Work Phone: [facility] Comment on above: S/P lung transplant (Primary Dx); High risk medication use; Immunosuppressed status; Therapeutic drug monitoring; Osteoporosis, unspecified osteoporosis type, unspecified pathological fracture presence; Acute low back pain, unspecified back pain laterality, unspecified whether sciatica present Start: 11-08-2022 End: 11-08-2022 Subsequent hospital visit by physician Nick Lopez MD Work Phone: [facility] Comment on above: Arrived Start: 10-19-2022 Transcribe Orders Nick Lopez MD Work Phone: [facility] Sched[facility] Comment on above: Lung transplant stat us ([facility]) (Primary Dx); alf (current) use of systemic steroids; Age-related osteoporosis without current pathological fracture Start: 09-29-2022 ambulatory Nick Lopez [facility] [facility] Start: 08-30-2022 [facility]ulatory [facility] Start: 07-30-2022 ambulatory [facility] Loja [facility] Start: 07-30-2022 End: 07-30-2022 Subsequent hospital visit by physician Nick Lopez MD Work Phone: [facility] Comment on above: Lung transplant stat us ([facility]) Start: 07-01-2022 ambulatory UNKNOWN PROVIDER [facility] Start: 07-01-2022 End: 07-01-2022 Subsequent hospital visit by physician Nick Lopez MD Work Phone: [facility] Comment on above: Lung transplant stat us ([facility]) Start: 05-31-2022 ambulatory UNKNOWN PROVIDER [facility] Start: 05-31-2022 End: 05-31-2022 Subsequent hospital visit by physician Nick Lopez MD Work Phone: [facility] Comment on above: Lung transplant stat us ([facility]) Start: 05-11-2022 End: 05-11-2022 ambulatory Chantale Linares MD Work Phone: [facility] Comment on above: At increased risk of exposure to COVID-19 virus (Primary Dx) Start: 05-03-2022 End: 05-03-2022 Office outpatient visit 25 minutes Nick Lopez MD Work Phone: [facility] Comment on above: S/P lung transplant (Primary Dx); Immunosuppressed status Start: 05-03-2022 End: 05-03-2022 Subsequent hospital visit by physician Nick Lopez MD Work Phone: Cardiovascular Imaging Lab [facility] Comment on above: Arrived Start: 03-30-2022 ambulatory UNKNOWN PROVIDER [facility] Start: 03-30-2022 End: 03-30-2022 Subsequent hospital visit by physician Nick Lopez MD Work Phone: [facility] Test Comment on above: Lung transplant stat us (HCC); Immunodeficiency, unspecified (HCC) Start: 03-29-2022 End: 03-29-2022 Emergency department patient visit Velia Clark MD Work Phone: [facility] Emergency Dept Comment on above: Left eyelid lacerati on, initial encounter (Primary Dx); Injury of head, initial encounter; Abrasion of left forearm, initial encounter; Closed displaced fracture of neck of fifth metacarpal bone of left hand, initial encounter Start: 03-02-2022 End: 03-02-2022 Subsequent hospital visit by physician Nick Lopez MD Work Phone: [facility] Start: 02-22-2022 End: 02-22-2022 Patient encounter procedure [facility] Comment on above: COVID-19 (Primary Dx ) Start: 01-28-2022 ambulatory UNKNOWN PROVIDER [facility] Start: 01-28-2022 End: 01-28-2022 Subsequent hospital visit by physician Nick Lopez MD Work Phone: [facility] Function Test Comment on above: Lung transplant stat us (HCC); Immunodeficiency, unspecified (HCC) Start: 12-28-2021 ambulatory UNKNOWN PROVIDER [facility] Start: 12-18-2021 End: 12-18-2021 Subsequent hospital visit by physician Nick Lopez MD Work Phone: [facility] Start: 12-01-2021 ambulatory Liana Loja [facility] Start: 10-08-2021 End: 10-08-2021 Subsequent hospital visit by physician Jossue Arevalo DO [facility] Start: 09-21-2021 ambulatory Liana Loja [facility] Start: 09-21-2021 End: 09-21-2021 Subsequent hospital visit by physician Ronny Pft Rm [facility] Comment on above: Arrived Start: 09-01-2021 End: 09-01-2021 Emergency department patient visit Liana Loja Work Phone: [facility] Emergency Dept Comment on above: Sprain of left wrist , initial encounter (Primary Dx) Start: 08-24-2021 End: 08-24-2021 Subsequent hospital visit by physician Nick Lopez MD Work Phone: [facility] Start: 08-17-2021 End: 08-17-2021 Subsequent hospital visit by physician Jossue Arevalo DO [facility] Phone[facility] Start: 07-24-2021 End: 07-24-2021 Subsequent hospital visit by physician Nick Lopez MD Work Phone: [facility] Start: 07-15-2021 End: 07-15-2021 Subsequent hospital visit by physician Nain Ibarra MD Work Phone: [facility] Comment on above: 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; Angina pectoris (HCC) Start: 05-27-2021 End: 05-27-2021 Subsequent hospital visit by physician [facility] Rm 01 [facility] Comment on above: Arrived Start: 05-19-2021 End: 05-19-2021 Subsequent hospital visit by physician Nick Lopez MD Work Phone: [facility] Start: 04-29-2021 End: 04-29-2021 Subsequent hospital visit by physician [facility] Rm 02 [facility] Comment on above: Arrived Start: 04-22-2021 End: 04-22-2021 Subsequent hospital visit by physician Nick Lopez MD Work Phone: [facility] Start: 04-02-2021 End: 04-02-2021 Subsequent hospital visit by physician Nick Lopez MD Work Phone: [facility] Start: 04-01-2021 End: 04-01-2021 Subsequent hospital visit by physician [facility] Rm 01 [facility] Comment on above: Arrived Start: 02-14-2021 End: 02-14-2021 Subsequent hospital visit by physician Liana Loja Work Phone: [facility] Comment on above: Arrived Start: 01-28-2021 End: 01-28-2021 Subsequent hospital visit by physician [facility] Rm 01 [facility] Comment on above: Arrived Start: 01-27-2021 End: 01-27-2021 Subsequent hospital visit by physician Nick Lopez Work Phone: [facility] Start: 12-31-2020 End: 12-31-2020 Subsequent hospital visit by physician Layla Winters [employer] Work Phone: [facility] Start: 12-31-2020 End: 12-31-2020 Subsequent hospital visit by physician [facility] Rm 01 [facility] Comment on above: Arrived Start: 12-23-2020 End: 12-23-2020 Subsequent hospital visit by physician Nick Lopez Work Phone: [facility] Start: 12-16-2020 End: 12-16-2020 Subsequent hospital visit by physician Layla Winters [employer] Work Phone: [facility] General Surgery Comment on above: Renal calculus, left (Primary Dx) Start: 12-03-2020 End: 12-03-2020 Subsequent hospital visit by physician Layla Winters [employer] Work Phone: [facility] Start: 11-24-2020 End: 11-24-2020 Subsequent hospital visit by physician Nick Lopez Work Phone: [facility] Start: 11-04-2020 End: 11-04-2020 Subsequent hospital visit by physician Nick Lopez Work Phone: [facility] Start: 10-29-2020 End: 10-29-2020 Subsequent hospital visit by physician Nick Lopez Work Phone: [facility] Start: 10-29-2020 End: 10-29-2020 Subsequent hospital visit by physician [facility] Rm 01 [facility] Start: 09-19-2020 End: 09-19-2020 Subsequent hospital visit by physician Nick Lopez Work Phone: [facility] Start: 09-16-2020 End: 09-16-2020 Subsequent [facility] Comment on above: Arrived Start: 08-26-2020 End: 08-26-2020 Subsequent hospital visit by physician Nick Lopez Work Phone: [facility] Start: 07-22-2020 End: 07-22-2020 Subsequent hospital visit by physician Nick Lopez Work Phone: RON[facility] Lu[facility] PFT Comment on above: Arrived Start: 07-16-2020 End: 07-16-2020 Subsequent hospital visit by physician Layla MannSverve Work Phone: [facility] Start: 07-16-2020 End: 07-16-2020 Subsequent hospital visit by physician Layla MannSverve Work Phone: [facility] Start: 06-26-2020 End: 06-26-2020 Subsequent hospital visit by physician Nick Lopez Work Phone: [facility] Start: 06-06-2020 End: 06-06-2020 Subsequent hospital visit by physician Nick Lopez Work Phone: [facility] Start: 05-26-2020 End: 05-26-2020 Subsequent hospital visit by physician Nick Lopez Work Phone: [facility] Start: 05-20-2020 End: 05-20-2020 Subsequent hospital visit by physician Ronny Luo Pft Rm RONNY Luo PFT Comment on above: Arrived Start: 05-02-2020 End: 05-02-2020 Subsequent hospital visit by physician Nick Lopez Work Phone: [facility] Start: 03-26-2020 End: 03-26-2020 Subsequent hospital visit by physician Nick Lopez Work Phone: [facility] Start: 03-04-2020 End: 03-04-2020 Subsequent hospital visit by physician Ronny Luo Pft Rm RONNY Luo PFT Comment on above: Arrived Start: 02-18-2020 End: 02-18-2020 Subsequent hospital visit by physician Nick Lopez Work Phone: [facility] Start: 02-11-2020 End: 02-11-2020 Subsequent hospital visit by physician Nick Lopez Work Phone: [facility] Start: 02-04-2020 End: 02-04-2020 Subsequent hospital visit by physician Nick Lopez Work Phone: [facility] Start: 01-28-2020 End: 01-28-2020 Subsequent hospital visit by physician Nick Lopez Work Phone: [facility] Start: 01-21-2020 End: 01-21-2020 Subsequent hospital visit by physician Nick Lopez Work Phone: [facility] Start: 01-14-2020 End: 01-14-2020 Subsequent hospital visit by physician Nick Lopez Work Phone: [facility] Start: 01-07-2020 End: 01-07-2020 Subsequent hospital visit by physician Nick Lopez Work Phone: [facility] Start: 01-01-2020 End: 01-01-2020 Subsequent hospital visit by physician Ronny Luo Pft Rm RONNY Luo PFT Comment on above: Arrived Start: 12-31-2019 End: 12-31-2019 Subsequent hospital visit by physician Nick Lopez Work Phone: [facility] Start: 12-24-2019 End: 12-24-2019 Subsequent hospital visit by physician Nick Lopez Work Phone: [facility] Start: 12-19-2019 End: 12-19-2019 Subsequent hospital visit by physician Layla Simmons Work Phone: [facility] Start: 12-17-2019 End: 12-17-2019 Subsequent hospital visit by physician Nick Lopez Work Phone: [facility] Start: 12-10-2019 End: 12-10-2019 Subsequent hospital visit by physician Liana Loja [facility] Start: 12-04-2019 End: 12-04-2019 Subsequent hospital visit by physician Nick Lopez Work Phone: [facility] Start: 11-26-2019 End: 11-26-2019 Subsequent hospital visit by physician Nick Lopez Work Phone: [facility] Start: 11-19-2019 End: 11-19-2019 Subsequent hospital visit by physician Nick Lopez Work Phone: [facility] Start: 11-05-2019 End: 11-05-2019 Subsequent hospital visit by physician Nick Lopez MD Work Phone: [facility] Start: 10-29-2019 End: 10-29-2019 Subsequent hospital visit by physician Nick Lopez MD Work Phone: [facility] Start: 10-23-2019 End: 10-23-2019 Subsequent hospital visit by physician Nick Lopez MD Work Phone: [facility] Start: 10-18-2019 End: 10-18-2019 Subsequent hospital visit by physician Liana Loja Work Phone: [facility] Start: 10-11-2019 End: 10-11-2019 Subsequent hospital visit by physician Liana Loja Work Phone: [facility] Start: 10-08-2019 End: 10-08-2019 Subsequent hospital visit by physician Liana Loja Work Phone: [facility] Start: 10-04-2019 End: 10-04-2019 Subsequent hospital visit by physician Liana Loja Work Phone: [facility] Start: 10-01-2019 End: 10-01-2019 Subsequent hospital visit by physician Liana Loja Work Phone: [facility] Start: 09-28-2019 End: 09-28-2019 Subsequent hospital visit by physician Liana Loja Work Phone: [facility] Start: 09-20-2019 End: 09-20-2019 Subsequent hospital visit by physician Liana Loja [facility] Start: 09-17-2019 End: 09-17-2019 Subsequent hospital visit by physician Liana Loja [facility] Start: 09-12-2019 End: 09-12-2019 Subsequent hospital visit by physician Liana [facility] Start: 09-03-2019 End: 09-03-2019 Subsequent hospital visit by physician Nick Lopez Work Phone: [facility] Start: 08-30-2019 End: 08-30-2019 Subsequent hospital visit by physician Liana Loja [facility] Start: 08-27-2019 End: 08-27-2019 Subsequent hospital visit by physician Liana Loja [facility] Start: 08-23-2019 End: 08-23-2019 Subsequent hospital visit by physician Liana [facility] Start: 08-20-2019 End: 08-20-2019 Subsequent hospital visit by physician Liana [facility] Start: 08-15-2019 End: 08-15-2019 Subsequent hospital visit by physician Liana Loja [facility] Start: 08-14-2019 End: 08-14-2019 Subsequent hospital visit by physician Layla MannSverve Work Phone: [facility] General Surgery Comment on above: Post-op pain (Primar y Dx) Start: 08-13-2019 End: 08-13-2019 Subsequent hospital visit by physician Layla MannSverve Work Phone: [facility] Pre-Admit Testing Comment on above: Arrived Start: 08-09-2019 End: 08-09-2019 Subsequent hospital visit by physician Liana Loja Work Phone: [facility] Start: 08-07-2019 End: 08-07-2019 Subsequent hospital visit by physician Lianarober Luo Radiology Start: 08-03-2019 End: 08-03-2019 Subsequent hospital visit by physician Layla Winters [employer] Work Phone: [facility] Start: 08-02-2019 End: 08-02-2019 Subsequent hospital visit by physician Liana [facility] Start: 07-30-2019 End: 07-30-2019 Subsequent hospital visit by physician Layla Winters [employer] Work Phone: [facility] [place] [facility] Comment on above: Arrived Start: 07-26-2019 End: 07-26-2019 Subsequent hospital visit by physician Layla Winters [employer] Work Phone: [facility] Start: 07-23-2019 End: 07-23-2019 Subsequent hospital visit by physician Liana CAR[facility] Start: 07-19-2019 End: 07-19-2019 Subsequent hospital visit by physician Liana Loja [facility] Start: 07-16-2019 End: 07-16-2019 Subsequent hospital visit by physician Liana Loja [facility] Start: 07-02-2019 End: 07-02-2019 Subsequent hospital visit by physician Liana Loja [facility] Start: 06-28-2019 End: 06-28-2019 Subsequent hospital visit by physician Liana Loja [facility] Start: 06-25-2019 End: 06-25-2019 Subsequent hospital visit by physician Liana Loja [facility] Start: 06-21-2019 End: 06-21-2019 Subsequent hospital visit by physician Liana Loja [facility] Start: 06-19-2019 End: 06-19-2019 Subsequent hospital visit by physician Liana Loja [facility] Start: 06-14-2019 End: 06-14-2019 Subsequent hospital visit by physician Liana Loja [facility] Start: 06-11-2019 End: 06-11-2019 Subsequent hospital visit by physician Liana Loja [facility] Start: 06-04-2019 End: 06-04-2019 Subsequent hospital visit by physician Liana Loja [facility] Start: 05-28-2019 End: 05-28-2019 Subsequent hospital visit by physician Liana [facility] Procedures Date Procedure Procedure Detail Performing Clinician Start: 08-01-2024 Spmtry w/vc expirato ry matias w/wo mxml vol vntj Tomasz Troncoso MD Work Phone: Start: 06-28-2024 Spmtry w/vc expirato ry matias w/wo mxml vol vntj Tomasz Troncoso MD Work Phone: Start: 05-30-2024 Spmtry w/vc expirato ry matias w/wo mxml vol vntalexander Troncoso MD Work Phone: Start: 05-10-2024 Radex ankle complete minimum 3 views Nick Lopez MD Work Phone: Start: 05-10-2024 Radex hip unilateral with pelvis 2-3 views Nick Lopez MD Work Phone: Start: 05-10-2024 Spmtry w/vc expirato ry matias w/wo mxml vol vntj Tomasz Troncoso MD Work Phone: Start: 05-10-2024 Radiologic exam ches t 2 views Tomasz Troncoso MD Work Phone: Start: 05-10-2024 Follow-up visit Follow-up NICK LOPEZ Start: 03-30-2024 Spmtry w/vc expirato ry matias w/wo mxml vol vntalexander Troncoso MD Work Phone: Start: 03-26-2024 Comprehensive metabo lic panel Majo Hightower INTERIOR HORTICULTURIST - [facility] Work Phone: Start: 03-20-2024 Arthrocentesis aspir &/inj major jt/bursa w/o us Kermit Ivy MD Work Phone: Start: 02-29-2024 Spmtry w/vc expirato ry matias w/wo mxml vol vntalexander Troncoso MD Work Phone: Start: 01-30-2024 Spmtry w/vc expirato ry matias w/wo mxml vol vntalexander Troncoso MD Work Phone: Start: 12-30-2023 Spmtry w/vc expirato ry matias w/wo mxml vol vntj Tomasz Troncoso MD Work Phone: Start: 11-29-2023 Spmtry w/vc expirato ry matias w/wo mxml vol vntj Tomasz Troncoso MD Work Phone: Start: 11-07-2023 PSA screening TOMASZ WAYNE Comment on above: Result Comment: This test was performed on the [email or web address] IM Immunoassay platform which is a 2-step sandwich chemiluminescent immunoassay. It is important to note that assays using different manufacturers and/or methods may not be comparable. Performed By: #### T , FT4 #### [facility] ([facility]) [address] [place] [address] Start: 11-07-2023 Lipid 1996 panel - S john or Plasma Kermit Ivy MD Work Phone: Start: 11-03-2023 Mri any jt upper ext remity w/o contrast matrl Travis Hansen Work Phone: Start: 09-30-2023 Spmtry w/vc expirato ry matias w/wo mxml vol vntj Tomasz Troncoso MD Work Phone: Start: 08-16-2023 Mri spinal canal cer vical w/o contrast matrl Liana Loja Work Phone: Start: 08-01-2023 Spmtry w/vc expirato ry matias w/wo mxml vol vntj Tomasz Troncoso MD Work Phone: Start: 07-04-2023 Spmtry w/vc expirato ry matias w/wo mxml vol vntj Tomasz Troncoso MD Work Phone: Start: 05-31-2023 Spmtry w/vc expirato ry matias w/wo mxml vol vntj Tomasz Troncoso MD Work Phone: Start: 08-05-2023 Drug screen quantita tive tacrolimus Verai M Ramsammy MD Work Phone: Start: 05-21-2023 Glucose measurement, blood Liset Gonzales MD Work Phone: Start: 05-21-2023 Assay of magnesium Elef lillian Ireland MD Work Phone: Start: 05-20-2023 Glucose measurement, blood Liset Gonzales MD Work Phone: Start: 05-20-2023 Glucose measurement, blood Liset Gonzales MD Work Phone: Start: 05-20-2023 Glucose measurement, blood Shagufta North MD Work Phone: Start: 05-20-2023 Drug screen quantita tive lacey Espino MD Work Phone: Start: 05-20-2023 Glucose measurement, blood Shagufta North MD Work Phone: Start: 05-20-2023 Assay of magnesium Elef lillian Ireland MD Work Phone: Start: 05-19-2023 Glucose measurement, blood Shagufta North MD Work Phone: Start: 05-19-2023 GENERAL PROCEDURE Carlyle Dhaliwal MD Work Phone: Start: 05-19-2023 Glucose measurement, blood Shagufta North MD Work Phone: Start: 05-19-2023 CONTINUOUS CARDIAC MONITORING STRIP Other Other Start: 05-19-2023 Glucose measurement, blood Shagufta North MD Work Phone: Start: 05-19-2023 Glucose measurement, blood Shagufta North MD Work Phone: Start: 05-19-2023 Drug screen quantita tive lacey Espino MD Work Phone: Start: 05-19-2023 Assay of magnesium Elef lillian Ireland MD Work Phone: Start: 05-18-2023 Glucose measurement, blood Shagufta North MD Work Phone: Start: 05-18-2023 Assay of phosphorus inorganic Jesika Ireland MD Work Phone: Start: 05-18-2023 Glucose measurement, blood Colleen Richardson MD Work Phone: Start: 05-18-2023 End: 05-18-2023 CONTINUOUS CARDIAC MONITORING STRIP Other Other Start: 05-18-2023 Glucose measurement, blood Colleen Richardson MD Work Phone: Start: 05-18-2023 Assay of magnesium Maryf lillian Ireland MD Work Phone: Start: 05-17-2023 CONTINUOUS CARDIAC MONITORING STRIP Other Other Start: 05-17-2023 Glucose measurement, blood Colleen Richardson MD Work Phone: Start: 05-17-2023 Blood gases any comb ination ph pco2 po2 co2 hco3 Juliano Morris MD Work Phone: Start: 05-17-2023 End: 05-17-2023 Assay of magnesium Jesika Ireland MD Work Phone: Start: 05-17-2023 Creatine kinase total E arnulfo Ireland MD Work Phone: Start: 05-17-2023 Iaad ia cryptococcus neoformans Gerardo Leslie MD Work Phone: Start: 05-17-2023 Glucose measurement, blood Devon Barbosa MD Work Phone: Start: 05-17-2023 End: 05-17-2023 Ct head/brain w/o contrast material Binh Carrero MD Work Phone: Start: 05-17-2023 Radiologic exam ches t single view Jesika Ireland MD Work Phone: Start: 05-16-2023 COMMUNICATION ORDER FOR RESPIRATORY CARE Jesika Ireland MD Work Phone: Start: 05-16-2023 Radiologic exam abdo men 1 view Jesika Ireland MD Work Phone: Start: 05-16-2023 Radiologic exam ches t single view Jesika Ireland MD Work Phone: Start: 05-16-2023 Antibody screen Gabriel A lzaeim /[facility] Work Phone: Start: 05-16-2023 End: 05-16-2023 Drug tst prsmv instrmnt chem analyzers pr date Binh Carrero MD Work Phone: Start: 05-16-2023 Assay of ammonia Binh Carrero MD Work Phone: Start: 05-16-2023 End: 05-16-2023 Iaad ia hiv-1 ag w/hiv-1 & hiv-2 antbdy single Binh Carrero MD Work Phone: Start: 05-16-2023 Glucose measurement, blood Devon Barbosa MD Work Phone: Start: 05-16-2023 Blood gases any comb ination ph pco2 po2 co2 hco3 Jesika Ireland MD Work Phone: Start: 05-16-2023 DANIS AURIS SCREEN BY PCR Jesika Ireland MD Work Phone: Start: 05-16-2023 CBC AND ELECTRONIC DIFF Jesika Ireland MD Work Phone: Start: 05-16-2023 Complete blood count with white cell differential, automated Jesika Ireland MD Work Phone: Start: 05-16-2023 Creatine kinase total J devon Carrero MD Work Phone: Start: 05-16-2023 Hepatic function panel Jesika Ireland MD Work Phone: Start: 05-16-2023 Glucose measurement, blood Devon Barbosa MD Work Phone: Start: 05-16-2023 End: 05-16-2023 Cell count miscellaneous body fluids Derek Cordova DO Work Phone: Start: 05-16-2023 Cul bact xcpt urine blood/stool aerobic isol Derek Cordova DO Work Phone: Start: 05-16-2023 Glucose body fluid o ther than blood Derek Cordova DO Work Phone: Start: 05-16-2023 IR LUMBAR PUNCTURE Vineet Cordova DO Work Phone: Start: 05-16-2023 Mri brain brain stem w/o contrast material Ilana Chester MD Work Phone: Start: 05-16-2023 Blood gases any comb ination ph pco2 po2 co2 hco3 Minnie Le DO Work Phone: Start: 05-16-2023 Blood gases any comb ination ph pco2 po2 co2 hco3 Ilana Chester MD Work Phone: Start: 05-16-2023 Radiologic exam abdo men 1 view Ilana Chester MD Work Phone: Start: 05-16-2023 Comprehensive metabo lic panel Derek Cordova DO Work Phone: Start: 05-16-2023 Diagnostic lumbar sp inal puncture Derek Cordova DO Work Phone: Start: 05-16-2023 Insj non-tunneled ce ntral venous cath age 7 yr/> Derek Cordova DO Work Phone: Start: 05-16-2023 Brnchsc w/brncl alve olar lavage Aliaksandr Ramaniuk DO Work Phone: Start: 05-16-2023 EEG CONTINUOUS MONITORING Derek Crodova DO Work Phone: Start: 05-16-2023 Radiologic exam ches t single view Derek Messerprachel DO Work Phone: Start: 05-16-2023 Radiologic exam abdo men 1 view Derek Cordova DO Work Phone: Start: 05-16-2023 End: 05-16-2023 Smr prim src gram/giemsa stain bct fungi/cell Derek Cordova DO Work Phone: Start: 05-15-2023 Calcium ionized Derek Cordova DO Work Phone: Start: 05-15-2023 Culture fngi mold/ye ast isol prsmptv isol blood Derek Cordova DO Work Phone: Start: 05-15-2023 Blood gases any comb ination ph pco2 po2 co2 hco3 Derek Bhaktako DO Work Phone: Start: 05-15-2023 End: 05-15-2023 Iadna s aureus methicillin resist amp probe tq Derek Cordova DO Work Phone: Start: 05-15-2023 Creatinine other source Derek Cordova DO Work Phone: Start: 05-15-2023 Bacteria identified in Blood by Culture Oscar Chan MD Work Phone: Start: 05-15-2023 MEDICATION ASSISTED TREATMENT PANEL Derek Cordova DO Work Phone: Start: 05-15-2023 Urinalysis complete panel - Urine Audra Chavarria DO Work Phone: Start: 05-15-2023 Urnls dip stick/tabl et reagent auto microscopy Audra Chavarria DO Work Phone: Start: 05-15-2023 Ct angio abd&plvis c ntrst mtrl w/wo cntrst img Audra Bailey Roshan DO Work Phone: Start: 05-15-2023 Ct head/brain w/o co ntrast material Gabriela Roshan DO Work Phone: Start: 05-15-2023 Radiologic exam ches t single view Gabriela Roshan DO Work Phone: Start: 05-15-2023 Ecg routine ecg w/le ast 12 lds trcg only w/o i&r Oscar Chan MD Work Phone: Start: 05-15-2023 End: 05-15-2023 Comprehensive metabolic panel Audra Chavarria DO Work Phone: Start: 05-15-2023 Drug screen quantita tive lacey Cordova DO Work Phone: Start: 05-15-2023 Intubation endotrach eal emergency procedure Dionicio Stout MD Work Phone: Start: 03-28-2023 Spmtry w/vc expirato ry matias w/wo mxml vol vntj Tomasz Troncoso MD Work Phone: Start: 01-24-2023 Spmtry w/vc expirato ry matias w/wo mxml vol vntj Tomasz Troncoso MD Work Phone: Start: 12-27-2022 Spmtry w/vc expirato ry matias w/wo mxml vol vntj Tomasz Troncoso MD Work Phone: Start: 11-08-2022 Pulmonary stress testing Nick Lopez MD Work Phone: Start: 11-08-2022 Lipid 1996 panel - S john or Plasma Akbar Davis DO Work Phone: Start: 07-30-2022 Spmtry w/vc expirato ry matias w/wo mxml vol vntj Nick Lopez MD Work Phone: Start: 07-01-2022 Spmtry w/vc expirato ry matias w/wo mxml vol vntj Nick Lopez MD Work Phone: Start: 05-31-2022 Spmtry w/vc expirato ry matias w/wo mxml vol vntj Nick Lopez MD Work Phone: Start: 05-03-2022 Spmtry w/vc expirato ry matias w/wo mxml vol vntj Nick Lopez MD Work Phone: Start: 03-30-2022 Spmtry w/vc expirato ry matias w/wo mxml vol vntj Nick Lopez MD Work Phone: Start: 03-29-2022 Ct cervical spine w/ o contrast material Jossue Wynn MD Work Phone: Start: 03-29-2022 Ct head/brain w/o co ntrast material Jossue Wynn MD Work Phone: Start: 03-29-2022 End: 03-29-2022 Radex humerus minimum 2 views Chayito Heredia MD Work Phone: Start: 03-29-2022 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 - [employer] Work Phone: Start: 03-29-2022 Radex hand minimum 3 views Velia Clark MD Work Phone: Start: 03-29-2022 Ct head/brain w/o co ntrast material Velia Clark MD Work Phone: Start: 03-02-2022 BILIRUBIN FRACTIONAT ED, ADULT Nick Lopez MD Work Phone: Start: 03-02-2022 Calcium total Nick calvert MD Work Phone: Start: 01-28-2022 Spmtry w/vc expirato ry matias w/wo mxml vol vntj Nick Lopez MD Work Phone: Start: 12-18-2021 BILIRUBIN FRACTIONAT ED, ADULT Nick Lopez MD Work Phone: Start: 12-18-2021 End: 12-18-2021 Calcium total Nick Lopez MD Work Phone: Start: 12-18-2021 Drug screen quantita tive tacrolimus Nick Lopez MD Work Phone: Start: 10-29-2021 Lipid 1996 panel - S john or Plasma [facility] Start: 09-01-2021 Radex wrist complete minimum 3 views Modesto Cheung MD Work Phone: Start: 08-24-2021 BILIRUBIN FRACTIONAT ED, ADULT Nick Lopez MD Work Phone: Start: 08-24-2021 Comprehensive metabo lic panel Nick Lopez MD Work Phone: Start: 08-24-2021 Drug screen quantita tive tacrolimus Nick Lopez MD Work Phone: Start: 07-24-2021 BILIRUBIN FRACTIONAT ED, ADULT Nick Lopez MD Work Phone: Start: 07-24-2021 Calcium total Nick calvert MD Work Phone: Start: 07-17-2021 Colonoscopy Tomasz keating MD Work Phone: Start: 07-15-2021 Stress echocardiography Nain Ibarra MD Work Phone: Start: 05-27-2021 Spmtry w/vc expirato ry matias w/wo mxml vol vntj Matthew Davila MD Work Phone: Start: 05-19-2021 BILIRUBIN FRACTIONAT ED, ADULT Nick Lopez MD Work Phone: Start: 05-19-2021 Calcium total Nick calvert MD Work Phone: Start: 04-22-2021 Drug screen quantita tive tacrolimus Nick Lopez MD Work Phone: Start: 04-22-2021 BILIRUBIN FRACTIONAT ED, ADULT Nick Lopez MD Work Phone: Start: 04-22-2021 Comprehensive metabo lic panel Nick Lopez MD Work Phone: Start: 04-02-2021 BILIRUBIN FRACTIONAT ED, ADULT Nick Lopez MD Work Phone: Start: 04-02-2021 Electrolyte panel Nick Lopez MD Work Phone: Start: 04-01-2021 Spmtry w/vc expirato ry matias w/wo mxml vol vntj Josie Pyle DO Work Phone: Start: 01-28-2021 Spmtry w/vc expirato ry matias w/wo mxml vol vntj Brandin Munguia Work Phone: Start: 01-27-2021 Albumin serum plasma /whole blood Nick Trejonley Work Phone: Start: 01-27-2021 Assay of blood/uric acid Nick Lopez Work Phone: Start: 01-27-2021 Assay of ferritin Nick Lopez Work Phone: Start: 01-27-2021 Assay of glutamyltrase gamma Nick John Work Phone: Start: 01-27-2021 Assay of [id number] Nick Lopze Work Phone: Start: 01-27-2021 Assay of magnesium Guilherme brenda John Work Phone: Start: 01-27-2021 Assay of phosphatase alkaline Nick Lopez Work Phone: Start: 01-27-2021 Assay of phosphorus inorganic Nick John Work Phone: Start: 01-27-2021 Assay of urea nitrog en quantitative Nick Lopez Work Phone: Start: 01-27-2021 BILIRUBIN FRACTIONAT ED, ADULT Nick John Work Phone: Start: 01-27-2021 Blood count complete auto&auto difrntl wbc Nick Lopez Work Phone: Start: 01-27-2021 Calcium total Nick Trejon nehal Work Phone: Start: 01-27-2021 Creatinine blood Nick Lopez Work Phone: Start: 01-27-2021 Electrolyte panel Nick Lopez Work Phone: Start: 01-27-2021 Glucose quantitative blood xcpt reagent strip Nick Lopez Work Phone: Start: 01-27-2021 Hemoglobin glycosylated a1c Nick Lopez Work Phone: Start: 01-27-2021 Iron binding capacity D avid John Work Phone: Start: 01-27-2021 Transferase alanine amino alt sgpt Nick Lopez Work Phone: Start: 01-27-2021 Transferase aspartat e amino ast sgot Nick Lopez Work Phone: Start: 12-31-2020 Radiologic exam abdo men 1 view Bechara G Tabet Work Phone: Start: 12-31-2020 Brncdilat rspse spmt ry pre&post-brncdilat admn Matthew Davila Work Phone: Start: 12-23-2020 Albumin serum plasma /whole blood Nick Lopez Work Phone: Start: 12-23-2020 Assay of blood/uric acid Nick Lopez Work Phone: Start: 12-23-2020 Assay of glutamyltrase gamma Nick Lopez Work Phone: Start: 12-23-2020 Assay of magnesium Guilherme brenda Lopez Work Phone: Start: 12-23-2020 Assay of phosphatase alkaline Nick Lopez Work Phone: Start: 12-23-2020 Assay of phosphorus inorganic Nick Lopez Work Phone: Start: 12-23-2020 Basic metabolic pane l calcium total Nick Lopez Work Phone: Start: 12-23-2020 Bilirubin total Nick carrera Work Phone: Start: 12-23-2020 Blood count complete auto&auto difrntl wbc Nick Lopez Work Phone: Start: 12-23-2020 Transferase alanine amino alt sgpt Nick Lopez Work Phone: Start: 12-23-2020 Transferase aspartat e amino ast sgot Nick Lopez Work Phone: Start: 12-16-2020 OPERATIVE REPORT 3m Sca nning Start: 12-16-2020 Radiologic exam abdo men 1 view Bechara G TabSverve Work Phone: Start: 12-16-2020 Gluc bld gluc mntr d ev cleared fda spec home use Bechara G Tabet Work Phone: Start: 12-03-2020 Radiologic exam abdo men 1 view Bechara G Tabet Work Phone: Start: 11-24-2020 Albumin serum plasma /whole blood Nick Lopez Work Phone: Start: 11-24-2020 Assay of blood/uric acid Nick Lopez Work Phone: Start: 11-24-2020 Assay of glutamyltrase gamma Nick Lopez Work Phone: Start: 11-24-2020 Assay of magnesium Guilherme brenda Lopez Work Phone: Start: 11-24-2020 Assay of phosphatase alkaline Nick Lopez Work Phone: Start: 11-24-2020 Assay of phosphorus inorganic Nick Lopez Work Phone: Start: 11-24-2020 Assay of urea nitrog en quantitative Nick Lopez Work Phone: Start: 11-24-2020 Bilirubin direct Nick Lopez Work Phone: Start: 11-24-2020 Bilirubin total Nick carrera Work Phone: Start: 11-24-2020 Blood count complete auto&auto difrntl wbc Nick Lopez Work Phone: Start: 11-24-2020 Calcium total Nick Trejon nehal Work Phone: Start: 11-24-2020 Creatinine blood Nick Lopez Work Phone: Start: 11-24-2020 Drug screen quantita tive tacrolimus Nick Lopez Work Phone: Start: 11-24-2020 Electrolyte panel Nick Lopez Work Phone: Start: 11-24-2020 Glucose quantitative blood xcpt reagent strip Nick Lopez Work Phone: Start: 11-24-2020 Transferase alanine amino alt sgpt Nick Lopez Work Phone: Start: 11-24-2020 Transferase aspartat e amino ast sgot Nick Lopez Work Phone: Start: 10-29-2020 Albumin serum plasma /whole blood Nick Lopez Work Phone: Start: 10-29-2020 Assay of blood/uric acid Nick Lopez Work Phone: Start: 10-29-2020 Assay of ferritin Nick Lopez Work Phone: Start: 10-29-2020 Assay of glutamyltrase gamma Nick Lopez Work Phone: Start: 10-29-2020 Assay of magnesium Guilherme brenda Lopez Work Phone: Start: 10-29-2020 Assay of phosphatase alkaline Nick Lopez Work Phone: Start: 10-29-2020 Assay of phosphorus inorganic Nick Lopez Work Phone: Start: 10-29-2020 Basic metabolic pane l calcium total Nick Lopez Work Phone: Start: 10-29-2020 BILIRUBIN FRACTIONAT ED, ADULT Nick Lopez Work Phone: Start: 10-29-2020 Blood count complete auto&auto difrntl wbc Nick Lopez Work Phone: Start: 10-29-2020 Hemoglobin glycosylated a1c Nick Lopez Work Phone: Start: 10-29-2020 Iron binding capacity D avibrenda Lopez Work Phone: Start: 10-29-2020 Transferase alanine amino alt sgpt Nick Lopez Work Phone: Start: 10-29-2020 Transferase aspartat e amino ast sgot Nick Lopez Work Phone: Start: 10-29-2020 Spmtry w/vc expirato ry matias w/wo mxml vol vntj Matthew Davila Work Phone: Start: 09-19-2020 Assay of blood/uric acid Nick Lopez Work Phone: Start: 09-19-2020 Assay of magnesium Guilherme d John Work Phone: Start: 09-19-2020 Assay of phosphorus inorganic Nick Lopez Work Phone: Start: 09-19-2020 Bilirubin direct Nick Lopez Work Phone: Start: 09-19-2020 Blood count complete auto&auto difrntl wbc Nick Lopez Work Phone: Start: 09-19-2020 Comprehensive metabo lic panel Nick Lopez Work Phone: Start: 09-16-2020 Spmtry w/vc expirato ry matias w/wo mxml vol vntj Nick Lopez Work Phone: Start: 08-26-2020 Assay of blood/uric acid Nick Lopez Work Phone: Start: 08-26-2020 Assay of gammaglobul in iga igd igg igm each Nick Lopez Work Phone: Start: 08-26-2020 Assay of [id number] Nick Lopez Work Phone: Start: 08-26-2020 Assay of magnesium Guilherme brenda Lopez Work Phone: Start: 08-26-2020 Assay of phosphorus inorganic Nick Lopez Work Phone: Start: 08-26-2020 Bilirubin direct Nick Lopez Work Phone: Start: 08-26-2020 Blood count complete auto&auto difrntl wbc Nick Lopez Work Phone: Start: 08-26-2020 Comprehensive metabo lic panel Nick Lopez Work Phone: Start: 08-26-2020 Hemoglobin glycosylated a1c Nick Lopez Work Phone: Start: 08-26-2020 Iron binding capacity D avibrenda Lopez Work Phone: Start: 07-22-2020 Spmtry w/vc expirato ry matias w/wo mxml vol vntj Nick Lopez Work Phone: Start: 07-22-2020 Assay of blood/uric acid Nick Lopez Work Phone: Start: 07-22-2020 Assay of magnesium Guilherme brenda Lopez Work Phone: Start: 07-22-2020 Assay of phosphorus inorganic Nick Lopez Work Phone: Start: 07-22-2020 Bilirubin direct Nick Lopez Work Phone: Start: 07-22-2020 Blood count complete auto&auto difrntl wbc Nick Lopez Work Phone: Start: 07-22-2020 Comprehensive metabo lic panel Nick Lopez Work Phone: Start: 07-16-2020 End: 07-16-2020 PSA screening Arunayesica Winters [employer] Work Phone: Comment on above: Testing performed on the [employer] using an immunometric methodology. Results obtained by different methods should not be used interchangeably. Start: 07-16-2020 Radiologic exam abdo men 1 view Layla Winters [employer] Work Phone: Start: 06-26-2020 Assay of blood/uric acid Nick Lopez Work Phone: Start: 06-26-2020 Assay of ferritin Nick Lopez Work Phone: Start: 06-26-2020 Assay of gammaglobul in iga igd igg igm each Nick Lopez Work Phone: Start: 06-26-2020 Assay of [id number] Nick John Work Phone: Start: 06-26-2020 Assay of magnesium Guilherme brenda Lopez Work Phone: Start: 06-26-2020 Assay of phosphorus inorganic Nick Lopez Work Phone: Start: 06-26-2020 Bilirubin direct Nick Lopez Work Phone: Start: 06-26-2020 Comprehensive metabo lic panel Nick Lopez Work Phone: Start: 06-26-2020 Iron binding capacity D avibrenda Lopez Work Phone: Start: 06-26-2020 Blood count complete auto&auto difrntl wbc Nick Lopez Work Phone: Start: 06-26-2020 Hemoglobin glycosylated a1c Nick Lopez Work Phone: Start: 05-26-2020 Assay of blood/uric acid Nick Lopez Work Phone: Start: 05-26-2020 Assay of magnesium Guilherme brenda Lopez Work Phone: Start: 05-26-2020 Assay of phosphorus inorganic Nick Lopez Work Phone: Start: 05-26-2020 Bilirubin direct Nick Lopez Work Phone: Start: 05-26-2020 Blood count complete auto&auto difrntl wbc Nick Lopez Work Phone: Start: 05-26-2020 Comprehensive metabo lic panel Nick Lopez Work Phone: Start: 05-20-2020 Lung differential function Josie Pyle Work Phone: Start: 05-02-2020 Assay of blood/uric acid Nick Lopez Work Phone: Start: 05-02-2020 Assay of magnesium Guilherme d John Work Phone: Start: 05-02-2020 Assay of phosphorus inorganic Nick Lopez Work Phone: Start: 05-02-2020 Bilirubin direct Nick Lopez Work Phone: Start: 05-02-2020 Blood count complete auto&auto difrntl wbc Nick Lopez Work Phone: Start: 05-02-2020 Comprehensive metabo lic panel Nick Lopez Work Phone: Start: 03-26-2020 Assay of blood/uric acid Nick Lopez Work Phone: Start: 03-26-2020 Assay of ferritin Nick Lopez Work Phone: Start: 03-26-2020 Assay of gammaglobul in iga igd igg igm each Nick Lopez Work Phone: Start: 03-26-2020 Assay of glutamyltrase gamma Nick Lopez Work Phone: Start: 03-26-2020 Assay of [id number] Nick Lopez Work Phone: Start: 03-26-2020 Assay of magnesium Guilherme brenda Lopez Work Phone: Start: 03-26-2020 Assay of phosphatase alkaline Nick Lopez Work Phone: Start: 03-26-2020 Bilirubin direct Nick Lopez Work Phone: Start: 03-26-2020 Bilirubin total Nick carrera Work Phone: Start: 03-26-2020 Blood count complete auto&auto difrntl wbc Nick Lopez Work Phone: Start: 03-26-2020 Hemoglobin glycosylated a1c Nick Lopez Work Phone: Start: 03-26-2020 Iron binding capacity D avibrenda John Work Phone: Start: 03-26-2020 Renal function panel Da vid John Work Phone: Start: 03-26-2020 Transferase alanine amino alt sgpt Nick Lopez Work Phone: Start: 03-26-2020 Transferase aspartat e amino ast sgot Nick Lopez Work Phone: Start: 03-04-2020 Spmtry w/vc expirato ry matias w/wo mxml vol vntj Akbar Strangeandreykarlie Work Phone: Start: 02-18-2020 Assay of blood/uric acid Nick Lopez Work Phone: Start: 02-18-2020 Assay of magnesium Guilherme brenda Lopez Work Phone: Start: 02-18-2020 Assay of phosphorus inorganic Nick Lopez Work Phone: Start: 02-18-2020 Bilirubin direct Nick Lopez Work Phone: Start: 02-18-2020 Blood count complete auto&auto difrntl wbc Nick Lopez Work Phone: Start: 02-18-2020 Comprehensive metabo lic panel Nick Lopez Work Phone: Start: 02-11-2020 Assay of magnesium Guilherme brenda Lopez Work Phone: Start: 02-11-2020 Assay of phosphorus inorganic Nick Lopez Work Phone: Start: 02-11-2020 Basic metabolic pane l calcium total Nick Lopez Work Phone: Start: 02-11-2020 Blood count complete auto&auto difrntl wbc Nick Lopez Work Phone: Start: 02-04-2020 Assay of magnesium Guilherme brenda Lopez Work Phone: Start: 02-04-2020 Assay of phosphorus inorganic Nick Lopez Work Phone: Start: 02-04-2020 Basic metabolic pane l calcium total Nick Lopez Work Phone: Start: 02-04-2020 Blood count complete auto&auto difrntl wbc Nick Lopez Work Phone: Start: 01-28-2020 Assay of magnesium Guilherme brenda Lopez Work Phone: Start: 01-28-2020 Assay of phosphorus inorganic Nick Lopez Work Phone: Start: 01-28-2020 Basic metabolic pane l calcium total Nick Lopez Work Phone: Start: 01-28-2020 Blood count complete auto&auto difrntl wbc Nick Lopez Work Phone: Start: 01-28-2020 Drug screen quantita tive tacrolimus Nick Lopez Work Phone: Start: 01-21-2020 Assay of blood/uric acid Nick Lopez Work Phone: Start: 01-21-2020 Assay of magnesium Guilherme brenda John Work Phone: Start: 01-21-2020 Assay of phosphorus inorganic Nick Lopez Work Phone: Start: 01-21-2020 Bilirubin direct Nick Lopez Work Phone: Start: 01-21-2020 Blood count complete auto&auto difrntl wbc Nick Lopez Work Phone: Start: 01-21-2020 Comprehensive metabo lic panel Nick Lopez Work Phone: Start: 01-21-2020 Drug screen quantita tive tacrolimus Nick Lopez Work Phone: Start: 01-21-2020 RBC morphology findi ng Nom (Bld) Nick Lopez Work Phone: Start: 01-14-2020 Assay of ferritin Nick Lopez Work Phone: Start: 01-14-2020 Assay of gammaglobul in iga igd igg igm each Nick Lopez Work Phone: Start: 01-14-2020 Assay of [id number] Nick Lopez Work Phone: Start: 01-14-2020 Assay of magnesium Guilherme brenda John Work Phone: Start: 01-14-2020 Assay of phosphorus inorganic Nick Lopez Work Phone: Start: 01-14-2020 Basic metabolic pane l calcium total Nick Lopez Work Phone: Start: 01-14-2020 Blood count complete auto&auto difrntl wbc Nick Lopez Work Phone: Start: 01-14-2020 Drug screen quantita tive tacrolimus Nick Lopez Work Phone: Start: 01-14-2020 Hemoglobin glycosylated a1c Nick Lopez Work Phone: Start: 01-14-2020 Iron binding capacity D avibrenda Lopez Work Phone: Start: 01-14-2020 RBC morphology findi ng Nom (Bld) Nick Lopez Work Phone: Start: 01-07-2020 Assay of magnesium Guilherme d John Work Phone: Start: 01-07-2020 Assay of phosphorus inorganic Nick Lopez Work Phone: Start: 01-07-2020 Basic metabolic pane l calcium total Nick Lopez Work Phone: Start: 01-07-2020 Blood count complete auto&auto difrntl wbc Nick Lopez Work Phone: Start: 01-07-2020 Drug screen quantita tive tacrolimus Nick Lopez Work Phone: Start: 01-07-2020 RBC morphology findi ng Nom (Bld) Nick Lopez Work Phone: Start: 01-01-2020 Spmtry w/vc expirato ry matias w/wo mxml vol vntj Matthew Davila Work Phone: Start: 12-31-2019 Assay of magnesium Guilherme brenda John Work Phone: Start: 12-31-2019 Assay of phosphorus inorganic Nick Lopez Work Phone: Start: 12-31-2019 Basic metabolic pane l calcium total Nick Lopez Work Phone: Start: 12-31-2019 Blood count complete auto&auto difrntl wbc Nick Lopez Work Phone: Start: 12-31-2019 RBC morphology findi ng Nom (Bld) Nick Lopez Work Phone: Start: 12-24-2019 Assay of magnesium Guilherme brenda Lopez Work Phone: Start: 12-24-2019 Assay of phosphorus inorganic Nick Lopez Work Phone: Start: 12-24-2019 Basic metabolic pane l calcium total Nick Lopez Work Phone: Start: 12-24-2019 Blood count complete auto&auto difrntl wbc Nick Lopez Work Phone: Start: 12-24-2019 RBC morphology findi ng Nom (Bld) Nick Lopez Work Phone: Start: 12-17-2019 Albumin serum plasma /whole blood Nick Lopez Work Phone: Start: 12-17-2019 Assay of blood/uric acid Nick Lopez Work Phone: Start: 12-17-2019 Assay of glutamyltrase gamma Nick Lopez Work Phone: Start: 12-17-2019 Assay of magnesium Guilherme brenda Lopez Work Phone: Start: 12-17-2019 Assay of phosphatase alkaline Nick Lopez Work Phone: Start: 12-17-2019 Assay of phosphorus inorganic Nick Lopez Work Phone: Start: 12-17-2019 Basic metabolic pane l calcium total Nick Lopez Work Phone: Start: 12-17-2019 Bilirubin direct Nick Lopez Work Phone: Start: 12-17-2019 Bilirubin total Nick carrera Work Phone: Start: 12-17-2019 Blood count complete auto&auto difrntl wbc Nick Lopez Work Phone: Start: 12-17-2019 RBC morphology findi ng Nom (Bld) Nick Lopez Work Phone: Start: 12-17-2019 Transferase alanine amino alt sgpt Nick Lopez Work Phone: Start: 12-17-2019 Transferase aspartat e amino ast sgot Nick Lopez Work Phone: Start: 12-10-2019 Assay of glutamyltrase gamma Unknown Provider Result Start: 12-10-2019 Assay of magnesium Unkn own Provider Result Start: 12-10-2019 Blood count complete auto&auto difrntl wbc Unknown Provider Result Start: 12-10-2019 Hepatic function panel Unknown Provider Result Start: 12-10-2019 Prothrombin time Unknow n Provider Result Start: 12-10-2019 RBC morphology findi ng Nom (Bld) Unknown Provider Result Start: 12-10-2019 Renal function panel Un known Provider Result Start: 12-04-2019 Assay of magnesium Guilherme Lopez Work Phone: Start: 12-04-2019 Assay of phosphorus inorganic Nick Lopez Work Phone: Start: 12-04-2019 Basic metabolic pane l calcium total Nick Lopez Work Phone: Start: 12-04-2019 Blood count complete auto&auto difrntl wbc Nick Lopez Work Phone: Start: 12-04-2019 RBC morphology findi ng Nom (Bld) Nick Lopez Work Phone: Start: 11-26-2019 Assay of magnesium Guilherme brenda Lopez Work Phone: Start: 11-26-2019 Assay of phosphorus inorganic Nick Lopez Work Phone: Start: 11-26-2019 Basic metabolic pane l calcium total Nick Lopez Work Phone: Start: 11-26-2019 Blood count complete auto&auto difrntl wbc Nick Lopez Work Phone: Start: 11-26-2019 RBC morphology findi ng Nom (Bld) Nick Lopez Work Phone: Start: 11-19-2019 Assay of blood/uric acid Nick Lopez Work Phone: Start: 11-19-2019 Assay of magnesium Guilherme brenda Lopez Work Phone: Start: 11-19-2019 Assay of phosphorus inorganic Nick Lopez Work Phone: Start: 11-19-2019 Basic metabolic pane l calcium total Nick Lopez Work Phone: Start: 11-19-2019 Blood count complete auto&auto difrntl wbc Nick Lopez Work Phone: Start: 11-19-2019 Drug screen quantita tive tacrolimus Nick Lopez Work Phone: Start: 11-19-2019 Hepatic function panel Nick Lopez Work Phone: Start: 11-19-2019 RBC morphology findi ng Nom (Bld) Nick Lopez Work Phone: Start: 11-05-2019 Basic metabolic pane l calcium total Nick Lopez MD Work Phone: Start: 11-05-2019 Drug screen quantita tive tacrolimus Nick Lopez MD Work Phone: Start: 11-05-2019 RBC morphology findi ng Nom (Bld) Nick Lopez MD Work Phone: Start: 10-29-2019 Basic metabolic pane l calcium total Nick Lopez MD Work Phone: Start: 10-29-2019 RBC morphology findi ng Nom (Bld) Nick Lopez MD Work Phone: Start: 10-23-2019 Comprehensive metabo lic panel Nick Lopez MD Work Phone: Start: 10-23-2019 RBC morphology findi ng Nom (Bld) Nick Lopez MD Work Phone: Start: 10-18-2019 Basic metabolic pane l calcium total Unknown Provider Result Start: 10-18-2019 RBC morphology findi ng Nom (Bld) Unknown Provider Result Start: 10-11-2019 Basic metabolic pane l calcium total Unknown Provider Result Start: 10-11-2019 RBC morphology findi ng Nom (Bld) Unknown Provider Result Start: 10-08-2019 Comprehensive metabo lic panel Unknown Provider Result Start: 10-08-2019 Drug screen quantita tive tacrolimus Unknown Provider Result Start: 10-08-2019 RBC morphology findi ng Nom (Bld) Unknown Provider Result Start: 10-04-2019 Basic metabolic pane l calcium total Unknown Provider Result Start: 10-04-2019 RBC morphology findi ng Nom (Bld) Unknown Provider Result Start: 10-01-2019 Basic metabolic pane l calcium total Unknown Provider Result Start: 10-01-2019 Drug screen quantita tive tacrolimus Unknown Provider Result Start: 10-01-2019 RBC morphology findi ng Nom (Bld) Unknown Provider Result Start: 09-28-2019 Basic metabolic pane l calcium total Unknown Provider Result Start: 09-28-2019 RBC morphology findi ng Nom (Bld) Unknown Provider Result Start: 09-20-2019 Assay of magnesium Unkn own Provider Result Start: 09-20-2019 Basic metabolic pane l calcium total Unknown Provider Result Start: 09-20-2019 Blood count complete auto&auto difrntl wbc Unknown Provider Result Start: 09-17-2019 Assay of magnesium Unkn own Provider Result Start: 09-17-2019 Basic metabolic pane l calcium total Unknown Provider Result Start: 09-17-2019 Blood count complete auto&auto difrntl wbc Unknown Provider Result Start: 09-12-2019 Assay of blood/uric acid Unknown Provider Result Start: 09-12-2019 Assay of magnesium Unkn own Provider Result Start: 09-12-2019 Assay of phosphorus inorganic Unknown Provider Result Start: 09-12-2019 Bilirubin direct Unknow n Provider Result Start: 09-12-2019 Blood count complete auto&auto difrntl wbc Unknown Provider Result Start: 09-12-2019 Comprehensive metabo lic panel Unknown Provider Result Start: 09-03-2019 Assay of magnesium Guilherme Lopez Work Phone: Start: 09-03-2019 Bilirubin direct Nick Lopez Work Phone: Start: 09-03-2019 Blood count complete auto&auto difrntl wbc Nick Lopez Work Phone: Start: 09-03-2019 Comprehensive metabo lic panel Nick Lopez Work Phone: Start: 09-03-2019 Prothrombin time Nick Lopez Work Phone: Start: 08-30-2019 Assay of magnesium Unkn own Provider Result Start: 08-30-2019 Basic metabolic pane l calcium total Unknown Provider Result Start: 08-30-2019 Blood count complete auto&auto difrntl wbc Unknown Provider Result Start: 08-30-2019 RBC morphology findi ng Nom (Bld) Unknown Provider Result Start: 08-27-2019 Assay of magnesium Unkn own Provider Result Start: 08-27-2019 Basic metabolic pane l calcium total Unknown Provider Result Start: 08-27-2019 Blood count complete auto&auto difrntl wbc Unknown Provider Result Start: 08-23-2019 Assay of magnesium Unkn own Provider Result Start: 08-23-2019 Basic metabolic pane l calcium total Unknown Provider Result Start: 08-23-2019 Blood count complete auto&auto difrntl wbc Unknown Provider Result Start: 08-20-2019 Assay of magnesium Unkn own Provider Result Start: 08-20-2019 Basic metabolic pane l calcium total Unknown Provider Result Start: 08-20-2019 Blood count complete auto&auto difrntl wbc Unknown Provider Result Start: 08-20-2019 RBC morphology findi ng Nom (Bld) Unknown Provider Result Start: 08-15-2019 Assay of blood/uric acid Unknown Provider Result Start: 08-15-2019 Assay of magnesium Unkn own Provider Result Start: 08-15-2019 Assay of phosphorus inorganic Unknown Provider Result Start: 08-15-2019 Bilirubin direct Unknow n Provider Result Start: 08-15-2019 Blood count complete auto&auto difrntl wbc Unknown Provider Result Start: 08-15-2019 Comprehensive metabo lic panel Unknown Provider Result Start: 08-15-2019 Drug screen quantita tive tacrolimus Unknown Provider Result Start: 08-14-2019 OPERATIVE REPORT 3m Sca nning Start: 08-14-2019 Gluc bld gluc mntr d ev cleared fda spec home use Bechara G Tabet Work Phone: Start: 08-14-2019 Gluc bld gluc mntr d ev cleared fda spec home use Bechara G Tabet Work Phone: Start: 08-13-2019 Ecg routine ecg w/le ast 12 lds w/i&r Iveth R Robbie Work Phone: Start: 08-09-2019 Basic metabolic pane l calcium total Unknown Provider Result Start: 08-09-2019 RBC morphology findi ng Nom (Bld) Unknown Provider Result Start: 08-02-2019 Assay of magnesium Unkn own Provider Result Start: 08-02-2019 Basic metabolic pane l calcium total Unknown Provider Result Start: 08-02-2019 Blood count complete auto&auto difrntl wbc Unknown Provider Result Start: 08-02-2019 RBC morphology findi ng Nom (Bld) Unknown Provider Result Start: 07-30-2019 Assay of ferritin Unkno wn Provider Result Start: 07-30-2019 Assay of gammaglobul in iga igd igg igm each Unknown Provider Result Start: 07-30-2019 Assay of [id number] Unknown Provider Result Start: 07-30-2019 Assay of magnesium Unkn own Provider Result Start: 07-30-2019 Basic metabolic pane l calcium total Unknown Provider Result Start: 07-30-2019 Blood count complete auto&auto difrntl wbc Unknown Provider Result Start: 07-30-2019 Hemoglobin glycosylated a1c Unknown Provider Result Start: 07-30-2019 Iron binding capacity U nknown Provider Result Start: 07-30-2019 Lipid panel Unknown Pr ovider Result Start: 07-30-2019 RBC morphology findi ng Nom (Bld) Unknown Provider Result Start: 07-26-2019 [object Object] Layla Tabet Comment on above: Testing performed on the [employer] using an immunometric methodology. Results obtained by different methods should not be used interchangeably. Start: 07-26-2019 Assay of magnesium Unkn own Provider Result Start: 07-26-2019 Basic metabolic pane l calcium total Unknown Provider Result Start: 07-26-2019 Blood count complete auto&auto difrntl wbc Unknown Provider Result Start: 07-26-2019 RBC morphology findi ng Nom (Bld) Unknown Provider Result Start: 07-26-2019 PSA screening Layla Simmons Work Phone: Start: 07-23-2019 Assay of magnesium Unkn own Provider Result Start: 07-23-2019 Basic metabolic pane l calcium total Unknown Provider Result Start: 07-23-2019 Blood count complete auto&auto difrntl wbc Unknown Provider Result Start: 07-23-2019 Drug screen quantita tive tacrolimus Unknown Provider Result Start: 07-23-2019 RBC morphology findi ng Nom (Bld) Unknown Provider Result Start: 07-19-2019 Assay of magnesium Unkn own Provider Result Start: 07-19-2019 Basic metabolic pane l calcium total Unknown Provider Result Start: 07-19-2019 Blood count complete auto&auto difrntl wbc Unknown Provider Result Start: 07-19-2019 RBC morphology findi ng Nom (Bld) Unknown Provider Result Start: 07-16-2019 Prothrombin time Unknow n Provider Result Start: 07-16-2019 Assay of blood/uric acid Unknown Provider Result Start: 07-16-2019 End: 07-16-2019 Assay of magnesium Unknown Provider Result Start: 07-16-2019 Assay of phosphorus inorganic Unknown Provider Result Start: 07-16-2019 End: 07-16-2019 Bilirubin direct Unknown Provider Result Start: 07-16-2019 End: 07-16-2019 Blood count complete auto&auto difrntl wbc Unknown Provider Result Start: 07-16-2019 End: 07-16-2019 Comprehensive metabolic panel Unknown Provider Result Start: 07-16-2019 End: 07-16-2019 RBC morphology finding Nom (Bld) Unknown Provider Result Start: 07-02-2019 Assay of magnesium Unkn own Provider Result Start: 07-02-2019 Basic metabolic pane l calcium total Unknown Provider Result Start: 07-02-2019 Blood count complete auto&auto difrntl wbc Unknown Provider Result Start: 07-02-2019 RBC morphology findi ng Nom (Bld) Unknown Provider Result Start: 06-28-2019 Assay of magnesium Unkn own Provider Result Start: 06-28-2019 Basic metabolic pane l calcium total Unknown Provider Result Start: 06-28-2019 Blood count complete auto&auto difrntl wbc Unknown Provider Result Start: 06-28-2019 RBC morphology findi ng Nom (Bld) Unknown Provider Result Start: 06-25-2019 Assay of magnesium Unkn own Provider Result Start: 06-25-2019 Basic metabolic pane l calcium total Unknown Provider Result Start: 06-25-2019 Blood count complete auto&auto difrntl wbc Unknown Provider Result Start: 06-25-2019 RBC morphology findi ng Nom (Bld) Unknown Provider Result Start: 06-21-2019 Assay of magnesium Unkn own Provider Result Start: 06-21-2019 Basic metabolic pane l calcium total Unknown Provider Result Start: 06-21-2019 Blood count complete auto&auto difrntl wbc Unknown Provider Result Start: 06-21-2019 RBC morphology findi ng Nom (Bld) Unknown Provider Result Start: 06-19-2019 Assay of magnesium Unkn own Provider Result Start: 06-19-2019 Basic metabolic pane l calcium total Unknown Provider Result Start: 06-19-2019 Blood count complete auto&auto difrntl wbc Unknown Provider Result Start: 06-19-2019 RBC morphology fabrice fletcher Nom (Bld) Unknown Provider Result Start: 06-14-2019 Assay of free thyroxine Unknown Provider Result Start: 06-14-2019 Assay of thyroid sti mulating hormone tsh Unknown Provider Result Start: 06-14-2019 Creatine kinase total U nknown Provider Result Start: 06-14-2019 Assay of magnesium Unkn own Provider Result Start: 06-14-2019 Basic metabolic pane l calcium total Unknown Provider Result Start: 06-14-2019 Blood count complete auto&auto difrntl wbc Unknown Provider Result Start: 06-14-2019 RBC morphology findkiko fletcher Nom (Bld) Unknown Provider Result Start: 06-11-2019 Assay of blood/uric acid Unknown Provider Result Start: 06-11-2019 Assay of glutamyltrase gamma Unknown Provider Result Start: 06-11-2019 Assay of magnesium Unkn own Provider Result Start: 06-11-2019 Assay of phosphorus inorganic Unknown Provider Result Start: 06-11-2019 Basic metabolic pane l calcium total Unknown Provider Result Start: 06-11-2019 Blood count complete auto&auto difrntl wbc Unknown Provider Result Start: 06-11-2019 Hepatic function panel Unknown Provider Result Start: 06-11-2019 RBC morphology findkiko fletcher Nom (Bld) Unknown Provider Result Start: 06-04-2019 Assay of magnesium Unkn own Provider Result Start: 06-04-2019 Basic metabolic pane l calcium total Unknown Provider Result Start: 06-04-2019 Blood count complete auto&auto difrntl wbc Unknown Provider Result Start: 06-04-2019 RBC morphology findi ng Nom (Bld) Unknown Provider Result Start: 05-28-2019 Assay of magnesium Unkn own Provider Result Start: 05-28-2019 Basic metabolic pane l calcium total Unknown Provider Result Start: 05-28-2019 Blood count complete auto&auto difrntl wbc Unknown Provider Result Start: 05-28-2019 Drug screen quantita tive tacrolimus Unknown Provider Result Start: 05-28-2019 RBC morphology findi ng Nom (Bld) Unknown Provider Result Start: 06-21-2018 Colonoscopy Nick arteaga MD Work Phone: Start: 08-04-2017 End: 08-04-2017 *BMP Sanam Giraldo FO[employer] SERVICE SUPERVISOR Work Phone: Start: 08-04-2017 End: 08-04-2017 Cciiv4 vaccine preservative free 0.5 ml im use Sanam Akers [employer] Work Phone: Start: 08-04-2017 End: 08-05-2017 CSM Sanam Giraldo FOOD SERVICE SUPERVISOR Work Phone: Start: 08-04-2017 End: 08-05-2017 Ct thorax w/contrast material Sanam Akers [employer] Work Phone: Start: 08-04-2017 End: 08-05-2017 Follow Up Appt 3 months Sanam kruger [employer] Work Phone: Start: 12-16-2016 End: 12-17-2016 Referral to respiratory physician Jerman Vitale Work Phone: Start: 10-25-2016 End: 10-29-2016 Pulmonary Function Test - complete Sanam Akers [employer] Work Phone: Start: 10-25-2016 End: 10-29-2016 Pulmonary stress test/simple Sanam Akers [employer] Work Phone: Start: 07-29-2016 End: 09-29-2016 BWA Sanam Giraldo FOOD SERVICE SUPERVISOR Work Phone: Start: 07-29-2016 End: 09-29-2016 Follow Up Appt 3 months Sanam Tafoya er [employer] Work Phone: Start: 05-05-2016 End: 07-19-2016 Follow up Appt 1 week Sanam Akers [employer] Work Phone: Start: 03-17-2016 End: 06-09-2016 Pulmonary stress test/simple Sanam Akers [employer] Work Phone: Start: 12-29-2015 End: 06-09-2016 LEANDRO Sanam Giraldo FOOD SERVICE SUPERVISOR Work Phone: Start: 12-29-2015 End: 06-09-2016 Complete sleep workup (PSG,CPAP as indicated) & Follow up Sanam Akers [employer] Work Phone: Start: 12-29-2015 End: 06-09-2016 Follow Up Appt 3 months Sanam kruger [employer] Work Phone: Start: 12-29-2015 End: 06-09-2016 Pulmonary Function Test - complete Sanam Akers [employer] Work Phone: Start: 12-29-2015 End: 12-30-2015 Referral to respiratory physician Sanam Akers [employer] Work Phone: Start: 11-12-2015 End: 11-12-2015 Therapeutic prophylactic/dx injection subq/im Liana Rober Loja, DO Work Phone: Start: 11-12-2015 End: 11-12-2015 Toradol 30 mg Liana A Malsaray, DO Work Phone: Start: 09-30-2015 End: 07-19-2016 Bacteria identified in Sputum by Respiratory culture Jerman Vitale Work Phone: Start: 09-30-2015 End: 07-19-2016 [facility] Jerman Vitale Work Phone: Start: 09-30-2015 End: 10-03-2015 Demo&/eval of pt utiliz aersl gen/neb/inhlr/ip Jerman Vitale Work Phone: Start: 09-30-2015 End: 07-19-2016 Follow Up Appt 3 months Jerman Vitale Work Phone: Start: 09-30-2015 End: 06-09-2016 Pulmonary Function Test - complete Sanam Akers [employer] Work Phone: Start: 09-30-2015 End: 06-09-2016 Pulmonary stress test/simple Sanam Akers [employer] Work Phone: Plan of Treatment Date Care Activity Detail Author Start: 07-17-2031 Screening for malignant neoplasm of colon [facility] Start: 02-20-2031 DTaP/Tdap/Td vaccine (4 - Td or Tdap) DTaP/Tdap/Td vaccine (4 - Td or Tdap) [facility] Start: 02-20-2031 DTaP/Tdap/Td Vaccines (4 - Td or Tdap) DTaP/Tdap/Td Vaccines (4 - Td or Tdap) [facility] Start: 02-20-2031 Tetanus vaccination TETANUS [facility] Start: 02-20-2031 Urine microalbumin profile DTaP,Tdap,Td Vaccine (4 - Td or Tdap) [facility] Start: 11-07-2028 Lipid panel Lipid Screening [facility] Start: 11-07-2028 Prostate specific antigen measurement Prostate Cancer Screening Discussion [facility] Start: 06-21-2028 Screening for malignant neoplasm of colon [facility] Start: 05-16-2028 DTaP/Tdap/Td vaccine (3 - Td) DTaP/Tdap/Td vaccine (3 - Td) [place] Start: 11-08-2027 Lipid panel [facility] Start: 05-30-2027 Diabetes Screening Diabetes Screening [facility] Start: 04-26-2027 Diabetes Screening Diabetes Screening [facility] Start: 03-26-2027 Diabetes Screening Diabetes Screening [facility] Start: 03-02-2027 Diabetes Screening Diabetes Screening [facility] Start: 10-29-2026 Fasting lipid profile LIPID SCREENING [facility] Start: 03-26-2025 Diabetes: Estimated Glomerular Filtration Rate for Kidney Health Diabetes: Estimated Glomerular Filtration Rate for Kidney Health [facility] Start: 03-02-2025 Diabetes mellitus screening Diabetes Screening [facility] Start: 11-12-2024 End: 11-12-2024 Patient encounter procedure 11/12/2024 3:45 PM EST Lab Encounter [facility] [address] [place] [phone] Tomasz Troncoso MD [address] [place] [address] [facility] Start: 11-12-2024 End: 11-12-2024 Patient encounter procedure [facility] Start: 11-07-2024 Lipid panel LIPIDS [facility] Start: 11-07-2024 Prostate specific antigen measurement PROSTATE CANCER SCREENING DISCUSSION [facility] Start: 11-07-2024 Screening for malignant neoplasm of lung LUNG CANCER SCREENING [facility] Start: 10-27-2024 Hemoglobin A1c measurement HBA1C TEST [facility] Start: 09-26-2024 End: 09-26-2024 Patient encounter procedure 09/26/2024 8:00 AM EST Appointment [facility] [address] [place] [phone] Tomasz Troncoso MD [address] [place] [address] [facility] Start: 08-30-2024 End: 08-30-2024 Patient encounter procedure [facility] Start: 08-29-2024 End: 08-29-2024 Patient encounter procedure 08/29/2024 8:00 AM EST Appointment [facility] [address] [place] [phone] Tomasz Troncoso MD [address] [place] [address] [facility] Start: 08-01-2024 End: 08-01-2024 Patient encounter procedure 08/01/2024 8:00 AM EDT Appointment [facility] [address] [place] [phone] Tomasz Troncoso MD [address] [place] [address] [facility] Start: 07-30-2024 Lipid screen Lipid screen [facility] [place] Start: 06-28-2024 End: 06-28-2024 Patient encounter procedure 06/28/2024 9:30 AM EDT Appointment [facility] [address] [place] [phone] Tomasz Troncoso MD [address] [place] [phone] [facility] Start: 06-17-2024 COVID-19 Vaccine () COVID-19 Vaccine () [facility] Start: 06-17-2024 Influenza vaccination Influenza Vaccine (#1) [facility] Start: 06-12-2024 End: 06-12-2024 ambulatory 06/12/2024 8:15 AM EDT OT/PT/Speech Visit [facility] [address] [place] [address] Ar Garcia, PT [address] [place], [place] [phone] right shoulder pain [facility] Comment on above: right shoulder pain Start: 06-05-2024 End: 06-05-2024 Patient encounter procedure 06/05/2024 9:45 AM EDT Office Visit [facility] [address] [place] [address] Kermit Ivy MD [address] [facility]. [facility] [address] [place], [place] [address] Est/ Follow up Right Shoulder Pain [facility] Comment on above: Est/ Follow up Right Shoulder Pain Start: 05-21-2024 End: 05-21-2024 ambulatory 05/21/2024 8:45 AM EDT OT/PT/Speech Visit [facility] [address] [place] [address] Ar Garcia, PT [address] [place], [place] [phone] right shoulder pain [facility] Comment on above: right shoulder pain Start: 05-16-2024 Diabetes: Estimated Glomerular Filtration Rate for Kidney Health Diabetes: Estimated Glomerular Filtration Rate for Kidney Health [facility] Start: 05-15-2024 End: 05-15-2024 ambulatory 05/15/2024 9:00 AM EDT OT/PT/Speech Visit [facility] [address] [place] [address] Lena Trejo, BUCKLE ASSEMBLER [address] [facility] [place] [address] right shoulder pain [facility] Comment on above: right shoulder pain Start: 05-10-2024 Lipid screen Lipid screen [facility] [place] Start: 05-07-2024 Hemoglobin A1c measurement HBA1C TEST [facility] Start: 05-07-2024 End: 05-07-2024 ambulatory 05/07/2024 8:45 AM EDT OT/PT/Speech Visit [facility] [address] [place] [place] [address] Ar Garcia, PT [address] [place] [address] right shoulder pain [facility] Comment on above: right shoulder pain Start: 05-01-2024 End: 05-01-2024 Patient encounter procedure [facility] Comment on above: RIGHT SHOULDER 6 WEEK FU RIGHT SHOULDER 6 WEE K FU (LVM to reschedule this appt. 04/23/24) Start: 05-01-2024 End: 05-01-2024 ambulatory 05/01/2024 9:00 AM EDT OT/PT/Speech Visit [facility] [address] [place] [address] Lena Trejo, BUCKLE ASSEMBLER [address] [place] [address] right shoulder pain [facility] Comment on above: right shoulder pain Start: 04-24-2024 End: 04-24-2024 ambulatory 04/24/2024 9:00 AM EDT OT/PT/Speech Visit [facility] [address] [place] [place] [address] Lena Trejo, BUCKLE ASSEMBLER [address] [place] [address] right shoulder pain [facility] Comment on above: right shoulder pain Start: 04-12-2024 End: 04-12-2024 ambulatory 04/12/2024 9:00 AM EDT OT/PT/Speech Visit [facility] [address] [place] [place] [address] Lena Trejo, BUCKLE ASSEMBLER [address] [place], [place] [phone] right shoulder pain [facility] Comment on above: right shoulder pain Start: 03-30-2024 End: 03-30-2024 Patient encounter procedure 03/30/2024 10:15 AM EDT Appointment [facility] [address] [place] [phone] Tomasz Troncoso MD [address] [place] [phone] [facility] Start: 03-29-2024 End: 03-29-2024 ambulatory 03/29/2024 10:30 AM EDT OT/PT/Speech Visit [facility] [address] [place] [place] [address] Ar Garcia, PT [address] [place], [place] [phone] right shoulder pain [facility] Comment on above: right shoulder pain Start: 03-23-2024 End: 09-22-2024 Comprehensive metabolic 1998 panel - Serum or Plasma Comprehensive metabolic panel Lab Routine Other osteoporosis without current pathological fracture Expected: 03/23/2024 (Approximate), Expires: 09/22/2024 [facility] Comment on above: Expected: 03/23/2024 (Approximate), Expi res: 09/22/2024 Start: 03-23-2024 End: 09-22-2024 Parathyrin.intact [Mass/volume] in Serum or Plasma PTH, intact Lab Routine Other osteoporosis without current pathological fracture Expected: 03/23/2024 (Approximate), Expires: 09/22/2024 [facility] Work Phone: Comment on above: Expected: 03/23/2024 (Approximate), Expi res: 09/22/2024 Start: 03-22-2024 End: 03-22-2024 Patient encounter procedure 03/22/2024 3:20 PM EDT Office Visit [facility] [address] [place] [phone] [facility] [place] Start: 02-29-2024 End: 02-29-2024 Patient encounter procedure 02/29/2024 10:30 AM EDT Appointment [facility] [address] [place] [phone] Tomasz Troncoso MD [address] [place] [address] [facility] Start: 01-30-2024 End: 01-30-2024 Patient encounter procedure 01/30/2024 10:15 AM EDT Appointment [facility] [address] [place] [phone] Tomasz Troncoso MD [address] [place] [address] [facility] Start: 01-28-2024 Diabetes screen Diabetes screen [facility] Work Phone: Start: 12-30-2023 End: 12-30-2023 Patient encounter procedure 12/30/2023 10:30 AM EDT Appointment [facility] [address] [place] [phone] Tomasz Troncoso MD [address] [place] [address] [facility] Start: 12-15-2023 End: 12-15-2023 Patient encounter procedure 12/15/2023 11:30 AM EST Office Visit [facility] [place] [address] [facility] [address] [place] [address] [facility] [place] Start: 12-14-2023 End: 12-14-2024 Complete PFT study [facility] Work Phone: Comment on above: Expected: 12/14/2023 (Approximate), Expi res: 12/14/2024 Start: 11-23-2023 Pneumococcal vaccination Pneumococcal Vaccine (3 of 3 - PPSV23 or PCV20) [facility] Start: 11-23-2023 PNEUMOCOCCAL VACCINE SERIES (3 - PPSV23 if available, else PCV20) PNEUMOCOCCAL VACCINE SERIES (3 - PPSV23 if available, else PCV20) [facility] Start: 11-23-2023 PNEUMOCOCCAL VACCINE SERIES (3 of 3 - PPSV23 or PCV20) PNEUMOCOCCAL VACCINE SERIES (3 of 3 - PPSV23 or PCV20) [facility] Start: 11-23-2023 Pneumococcal Vaccine: Pediatrics (0 to 5 Years) and At-Risk Patients (6 to 64 Years) (3 - PPSV23 if available, else PCV20) Pneumococcal Vaccine: Pediatrics (0 to 5 Years) and At-Risk Patients (6 to 64 Years) (3 - PPSV23 if available, else PCV20) [facility] Start: 11-23-2023 Pneumococcal Vaccine: Pediatrics (0 to 5 Years) and At-Risk Patients (6 to 64 Years) (3 - PPSV23 or PCV20) Pneumococcal Vaccine: Pediatrics (0 to 5 Years) and At-Risk Patients (6 to 64 Years) (3 - PPSV23 or PCV20) [facility] Start: 11-23-2023 Pneumococcal Vaccine: Pediatrics (0 to 5 Years) and At-Risk Patients (6 to 64 Years) (3 of 3 - PPSV23 or PCV20) Pneumococcal Vaccine: Pediatrics (0 to 5 Years) and At-Risk Patients (6 to 64 Years) (3 of 3 - PPSV23 or PCV20) [facility] Start: 11-08-2023 Prostate specific antigen measurement PROSTATE CANCER SCREENING DISCUSSION [facility] Start: 11-08-2023 Screening for malignant neoplasm of lung LUNG CANCER SCREENING [facility] Start: 10-29-2023 Diabetes screen Diabetes screen [place], [place] Start: 10-22-2023 Screening for osteoporosis Bone Density Scan [facility] Start: 10-17-2023 Behavioral Health Screening Behavioral Health Screening [facility] Start: 10-17-2023 Medicare Advantage Annual Wellness Visit Medicare [facility] Annual Wellness Visit [facility] Start: 10-05-2023 Covid-19 Vaccine () Covid-19 Vaccine () [facility] Start: 09-30-2023 End: 09-30-2023 Patient encounter procedure 09/30/2023 11:00 AM EST Appointment [facility] [address] [place] [address] [facility] Start: 08-31-2023 End: 08-31-2023 Patient encounter procedure [facility] Start: 08-31-2023 Subsequent hospital visit by physician 08/31/2023 11:00 AM EST Hospital Encounter [facility] [address] [place] [address] Tomasz Troncoso MD [address] [place] [phone] [facility] Start: 08-16-2023 End: 08-16-2023 Patient encounter procedure 08/16/2023 7:30 AM EDT Appointment [facility] [address] [place] [phone] [facility] Start: 08-05-2023 End: 08-05-2023 Patient encounter procedure 08/05/2023 7:15 AM EDT Appointment [facility] [address] [place] [phone] Liana Loja [address] [facility] [place] [place] [address] [facility] Start: 08-01-2023 End: 08-01-2023 Patient encounter procedure 08/01/2023 11:00 AM EDT Appointment [facility] [address] [place] [address] [facility] Start: 07-04-2023 End: 07-04-2023 Patient encounter procedure 07/04/2023 9:30 AM EDT Appointment [facility] [address] [place] [phone] [facility] Start: 06-17-2023 COVID-19 Vaccine () COVID-19 Vaccine () [facility] Start: 06-17-2023 Influenza vaccination [facility]FLUENZA VACCINE (#[facility] Start: 05-26-2023 End: 05-26-2024 Spirometry Spirometry PFT Routine Lung transplant status (HCC) Immunodeficiency, unspecified (HCC) Expected: 05/26/2023 (Approximate), Expires: 05/26/2024 [facility] Work Phone: Comment on above: Expected: 05/26/2023 (Approximate), Expi res: 05/26/2024 Start: 05-21-2023 End: 05-21-2024 MR Brain WO and W contrast IV MRI BRAIN WITH AND WITHOUT CONTRAST Imaging Routine Behavioral change Expected: 05/21/2023, Expires: 05/21/2024 [facility] Comment on above: Expected: 05/21/2023, Expires: Start: 05-09-2023 End: 05-09-2023 Patient encounter procedure [facility] Start: 03-28-2023 End: 03-28-2023 Patient encounter procedure 03/28/2023 Appointment Pulmonology Tomasz Troncoso MD [address] [place] [phone] [facility] Start: 03-02-2023 Hemoglobin A1c measurement [facility] Start: 02-28-2023 End: 02-28-2023 Patient encounter procedure 02/28/2023 Appointment Pulmonology [facility] Start: 01-24-2023 End: 01-24-2023 Patient encounter procedure 01/24/2023 Appointment Pulmonology [facility] Start: 12-18-2022 Hemoglobin A1c measurement A1C test (Diabetic or Prediabetic) [facility] Start: 12-14-2022 End: 12-14-2023 Spirometry Spirometry PFT Routine Lung transplant recipient (HCC) Expected: 12/14/2022 (Approximate), Expires: 12/14/2023 [facility] Work Phone: Comment on above: Expected: 12/14/2022 (Approximate), Expi res: 12/14/2023 Start: 10-29-2022 Hemoglobin A1c measurement A1C test (Diabetic or Prediabetic) [facility] Start: 10-29-2022 Lipid panel Lipids [facility] Start: 10-29-2022 Prostate specific antigen measurement [facility] Start: 10-29-2022 Screening for malignant neoplasm of lung LUNG CANCER SCREENING [facility] Start: 10-08-2022 COVID-19 VACCINE (4 - Booster for Moderna series) COVID-19 VACCINE (4 - Booster for Moderna series) [facility] Start: 10-08-2022 COVID-19 Vaccine (5 - Moderna risk series) COVID-19 Vaccine (5 - Moderna risk series) [facility] Start: 09-29-2022 End: 09-29-2022 Patient encounter procedure 09/29/2022 Appointment Pulmonary Function Testing Nick Lopez MD [address] [place] [phone] [facility] Start: 09-21-2022 Hemoglobin A1c measurement A1C test (Diabetic or Prediabetic) [facility] Start: 08-30-2022 End: 08-30-2022 Patient encounter procedure 08/30/2022 Appointment Pulmonary Function Testing Nick Lopez MD [address] [place] [phone] [facility] Start: 08-13-2022 COVID-19 VACCINE (3 - Moderna risk series) COVID-19 VACCINE (3 - Moderna risk series) [facility] Start: 10-14-2022 Diabetes screen Diabetes screen [place] Start: 07-30-2022 End: 07-30-2022 Patient encounter procedure 07/30/2022 Appointment Pulmonary Function Testing Nick Lopez MD [address] [place] [phone] [facility] Start: 07-06-2022 End: 07-06-2022 Patient encounter procedure 07/06/2022 Office Visit Cardiology IlerNain MD [address] [place] [address]. [address] [place] [address] [facility] Start: 07-01-2022 End: 07-01-2022 Patient encounter procedure 07/01/2022 Appointment Pulmonary Function Testing Nick Lopez MD [address] [place] [phone] [facility] Start: 06-23-2022 Hemoglobin A1c measurement A1C test (Diabetic or Prediabetic) [facility] Start: 06-17-2022 Influenza vaccination [facility] Start: 05-19-2022 Hemoglobin A1c measurement A1C test (Diabetic or Prediabetic) [facility] Work Phone: Start: 04-02-2022 Hemoglobin A1c measurement A1C test (Diabetic or Prediabetic) [facility] Work Phone: Start: 03-30-2022 End: 03-30-2022 Patient encounter procedure 03/30/2022 Appointment Pulmonary Function Testing Nick Lopez MD [address] [place] [phone] [facility] Start: 2022 RSV Immunization aged 60 or older (1 - 1-dose 60+ series) RSV Immunization aged 60 or older (1 - 1-dose 60+ series) [facility] [facility] Start: 03-01-2022 End: 03-01-2022 Patient encounter procedure [facility] Start: 02-17-2022 Hemoglobin A1c measurement A1C test (Diabetic or Prediabetic) [facility] Work Phone: Start: 01-28-2022 End: 01-28-2022 Patient encounter procedure 01/28/2022 Appointment Pulmonary Function Testing Nick Lopez MD [address] [place] [id number] [facility] Start: 01-14-2022 COVID-19 Vaccine (4 - Booster for Moderna series) COVID-19 Vaccine (4 - Booster for Moderna series) [facility] Start: 01-08-2022 COVID-19 Vaccine (4 - Booster for Moderna series) COVID-19 Vaccine (4 - Booster for Moderna series) [facility] Start: 12-28-2021 End: 12-28-2021 Patient encounter procedure 12/28/2021 Appointment Pulmonary Function Testing Nick Lopez MD [address] [place] [id number] [facility] Start: 11-13-2021 COVID-19 VACCINE (3 - Moderna risk series) COVID-19 VACCINE (3 - Moderna risk series) [facility] Start: 08-26-2021 HbA1c (Bld) [Mass fraction] A1C test (Diabetic or Prediabetic) [place], [place] Start: 07-29-2021 End: 07-29-2021 Patient encounter procedure 07/29/2021 Appointment Pulmonary Function Testing [facility] Start: 06-26-2021 HbA1c (Bld) [Mass fraction] A1C test (Diabetic or Prediabetic) [place], [place] Start: 06-17-2021 Influenza vaccination [facility] Start: 05-27-2021 End: 05-27-2021 Patient encounter procedure 05/27/2021 Appointment Pulmonary Function Testing [facility] Start: 04-29-2021 End: 04-29-2021 Patient encounter procedure 04/29/2021 Appointment Pulmonary Function Testing [facility] Start: 04-01-2021 End: 04-01-2021 Appointment 04/01/2021 Appointment Pulmonary Function Testing [facility] Start: 03-26-2021 HbA1c (Bld) [Mass fraction] A1C test (Diabetic or Prediabetic) [place] Start: 03-06-2021 COVID-19 Vaccine (3 - Moderna risk 3-dose series) COVID-19 Vaccine (3 - Moderna risk 3-dose series) [facility] Start: 03-06-2021 COVID-19 Vaccine (3 - Moderna risk 4-dose series) COVID-19 Vaccine (3 - Moderna risk 4-dose series) [facility] Start: 02-14-2021 End: 02-14-2021 Appointment 02/14/2021 Appointment MRI Liana Loja [address] [place], [place] [id number] [facility] Start: 02-06-2021 COVID-19 Vaccine (2 - Moderna 2-dose series) COVID-19 Vaccine (2 - Moderna 2-dose series) [facility] Work Phone: Start: 01-28-2021 End: 01-28-2021 Appointment 01/28/2021 Appointment Pulmonary Function Testing [facility] Start: 01-13-2021 A1C test (Diabetic or Prediabetic) A1C test (Diabetic or Prediabetic) [place] Start: 01-13-2021 HbA1c (Bld) [Mass fraction] A1C test (Diabetic or Prediabetic) [place] Start: 12-31-2020 End: 12-31-2020 Appointment 12/31/2020 Appointment Pulmonary Function Testing [facility] Start: 12-23-2020 End: 12-23-2020 Appointment 12/23/2020 Appointment Pulmonary Function Testing [facility] Start: 10-23-2020 A1C test (Diabetic or Prediabetic) A1C test (Diabetic or Prediabetic) [facility] Work Phone: Start: 10-21-2020 Hospital Encounter 10/21/2020 Hospital Encounter Pulmonary Function Testing [facility] Start: 09-16-2020 End: 09-16-2020 Appointment 09/16/2020 Appointment Pulmonary Function Testing [facility] Start: 07-30-2020 Lipid panel Lipid screen [facility] Start: 07-30-2020 [facility]: [facility]2020 End: 07-22-2020 Appointment [facility] [place] [facility] Start: 06-17-2020 [facility]: 05-20-2020 End: 05-20-2020 Appointment 05/20/2020 Appointment Pulmonary Function Testing [facility] [place] [facility] Start: 05-10-2020 A1C test (Diabetic or Prediabetic) [facility] (Di[facility]iabetic[facility]: 03-04-2020 End: 03-04-2020 Appointment 03/04/2020 Appointment Pulmonary Function Testing [facility] [place] [facility] Start: 01-01-2020 End: 01-01-2020 Appointment 01/01/2020 Appointment Pulmonary Function Testing [facility] Start: 09-07-2019 Hospital Encounter 09/07/2019 Hospital Encounter General Surgery Layla Simmons MD [address] [place] [address] [facility] General Surgery Start: 08-15-2019 Annual Wellness Visit (AWV) Annual Wellness Visit (AWV) [facility] Start: 08-14-2019 Hospital Encounter 08/14/2019 Hospital Encounter General Surgery Layla Simmons MD [address] [place] [address] [facility] Same Day Surgery Start: 08-13-2019 Subsequent hospital visit by physician 08/13/2019 Hospital Encounter Pre-Admission Testing Layla Simmons MD [address] [place] [address] [facility] Pre-Admit Testing Start: 07-30-2019 End: 07-30-2019 Appointment 07/30/2019 Appointment Radiology Layla Simmons MD [address] [place] [address] Start: 06-22-2019 Colonoscopy COLORECTAL CANCER SCREENING DISCUSSION [facility] Start: 06-22-2019 Screening for malignant neoplasm of colon COLORECTAL CANCER SCREENING DISCUSSION [facility] Start: 06-17-2019 Influenza vaccination Flu vaccine (#1) [place], [place] Start: 06-13-2019 Urine screening for protein URINE MICROALBUMIN TEST [facility] Start: 05-09-2019 Pneumococcal 0-64 years Vaccine (2 - PPSV23 or PCV20) Pneumococcal 0-64 years Vaccine (2 - PPSV23 or PCV20) [facility] Start: 05-09-2019 PNEUMOCOCCAL VACCINE SERIES (2 - PPSV23 or PCV20) PNEUMOCOCCAL VACCINE SERIES (2 - PPSV23 or PCV20) [facility] Start: 01-29-2019 Hepatitis B vaccination HEP B VACCINE (3 of 3 - 19+ 3-dose series) [facility] Start: 01-29-2019 Hepatitis B Vaccines (3 of 3 - 19+ 3-dose series) Hepatitis B Vaccines (3 of 3 - 19+ 3-dose series) [facility] Start: 01-22-2019 Hepatitis B Vaccines (4 of 4 - 4-dose series) Hepatitis B Vaccines (4 of 4 - 4-dose series) [facility] Start: 07-04-2018 Pneumococcal 0-64 years Vaccine (2 of 3 - PPSV23) Pneumococcal 0-64 years Vaccine (2 of 3 - PPSV23) [place] Start: 07-04-2018 Pneumococcal 0-64 years Vaccine (2 of 4 - PPSV23) Pneumococcal 0-64 years Vaccine (2 of 4 - PPSV23) [facility] Start: 11-03-2017 End: 11-03-2017 Appointment Appointment [facility] Work Phone: Start: 08-04-2017 End: 08-04-2017 *BMP *BMP [facility] Work Phone: Start: 08-04-2017 End: 08-05-2017 [facility] Work Phone: Start: 08-04-2017 End: 08-05-2017 Ct thorax w/contrast material CT Chest with Contrast [facility] Work Phone: Start: 08-04-2017 End: 08-05-2017 Follow Up Appt 3 months Follow Up Appt 3 months [facility] Work Phone: Start: 05-18-2017 End: 05-18-2017 [facility] [place] Work Phone: Start: 05-18-2017 End: 05-18-2017 Follow Up Appt 3 months Follow Up Appt 3 months [facility] [place] Work Phone: Start: 03-16-2017 End: 03-16-2017 [facility] [place] Work Phone: Start: 03-16-2017 End: 03-16-2017 Follow Up Appt 1 month Follow Up Appt 1 month [facility] [place] Work Phone: Start: 03-16-2017 End: 03-16-2017 Pulmonary Function Test - complete Pulmonary Function Test - complete [facility] [place] Work Phone: Start: 12-16-2016 End: 12-16-2016 [facility] [place] Work Phone: Start: 12-16-2016 End: 12-16-2016 Follow Up Appt 3 months Follow Up Appt 3 months [facility] Work Phone: Start: 12-16-2016 End: 12-16-2016 [facility] [address] [place], [address] [facility] [place] Work Phone: Start: 10-25-2016 End: 10-29-2016 Pulmonary Function Test - complete Pulmonary Function Test - complete [facility] [place] Work Phone: Start: 10-25-2016 End: 10-29-2016 Pulmonary stress test/simple Pulmonary stress testing; simple (eg, 6-minute walk) [facility] [place] Work Phone: Start: 07-29-2016 End: 09-29-2016 [facility] [place] Work Phone: Start: 07-29-2016 End: 09-29-2016 Follow Up Appt 3 months Follow Up Appt 3 months [facility] [place] Work Phone: Start: 05-05-2016 End: 07-19-2016 Follow up Appt 1 week Follow up Appt 1 week [facility] Phone: Start: 04-21-2016 End: 04-21-2016 [facility] Phone: Start: 04-21-2016 End: 04-21-2016 Follow Up Appt 3 months Follow Up Appt 3 months [facility] Phone: Start: 03-17-2016 End: 06-09-2016 Pulmonary stress test/simple Pulmonary stress testing; simple (eg, 6-minute walk) [facility] Phone: Start: 12-29-2015 End: 06-09-2016 LEANDRO LEANDRO [facility] Phone: Start: 12-29-2015 End: 06-09-2016 Complete sleep workup (PSG,CPAP as indicated) & Follow up Complete sleep workup (PSG,CPAP as indicated) & Follow up [facility] Phone: Start: 12-29-2015 End: 06-09-2016 Follow Up Appt 3 months Follow Up Appt 3 months [facility] Phone: Start: 12-29-2015 End: 06-09-2016 Pulmonary Function Test - complete Pulmonary Function Test - complete [facility] Phone: Start: 12-29-2015 End: 12-29-2015 Sleep Study, complete Sleep Study, complete [address], [place], [address] [facility] Phone: Start: 11-13-2015 End: 11-13-2015 Bone &/joint imaging limited area NM Bone Scan, limited [facility] Phone: Start: 11-12-2015 End: 11-12-2015 Chest x-ray X-Ray, Chest, PA & Lateral [facility] Phone: Start: 11-12-2015 End: 11-12-2015 Radex shoulder complete minimum 2 views X-Ray, Shoulder [facility] Phone: Start: 09-30-2015 End: 07-19-2016 Bacteria sputum culture *CUSP - Culture Sputum [facility] Phone: Start: 09-30-2015 End: 07-19-2016 [facility] Phone: Start: 09-30-2015 End: 07-19-2016 Follow Up Appt 3 months Follow Up Appt 3 months [facility] Phone: Start: 09-30-2015 End: 06-09-2016 Pulmonary Function Test - complete Pulmonary Function Test - complete [facility] Phone: Start: 09-30-2015 End: 06-09-2016 Pulmonary stress test/simple Pulmonary stress testing; simple (eg, 6-minute walk) [facility] Phone: Start: 09-03-2015 End: 09-03-2015 Ct thorax w/o contrast material CT Chest without contrast [facility] Phone: Start: 04-22-2015 End: 04-22-2015 Dup-scan xtr veins complete bilateral study Venous Doppler LE Left [facility] Phone: Start: 2012 Colon cancer screen colonoscopy Colon cancer screen colonoscopy [facility] [place] Start: 2012 Screening for malignant neoplasm of colon Colon cancer screen colonoscopy [place], [place] Start: 2012 Shingles Vaccine (1 of 2) Shingles Vaccine (1 of 2) [facility] Start: 2012 Zoster vaccine hzv live for subcutaneous use ZOSTER (SHINGLES) VACCINE (1 of 2) [facility] Start: 2007 Screening for malignant neoplasm of colon [facility] Start: 1992 Zoledronic acid therapy Alpha-1 Antitrypsin Deficiency Screening [facility] Start: 1981 DTaP/Tdap/Td vaccine (1 - Tdap) DTaP/Tdap/Td vaccine (1 - Tdap) [place], [place] Start: 1981 Shingles vaccine (1 of 2) Shingles vaccine (1 of 2) [facility] Start: 1980 Annual PCP Team Chronic Disease Visit Annual PCP Team Chronic Disease Visit [facility] Start: 1980 Anxiety Screening Anxiety Screening [facility] Start: 1980 Depression Screening Depression Screening [facility] Start: 1980 Diabetes: Urine Albumin-Creatinine Ratio for Kidney Health Diabetes: Urine Albumin-Creatinine Ratio for Kidney Health [facility] Start: 1980 Hepatitis C screening [facility] Start: 1978 COVID-19 Vaccine (1) COVID-19 Vaccine (1) [facility] Work Phone: Start: 1977 HIV screen HIV screen [place], [place] Start: 1977 HIV screening HIV screen [facility] Start: 1974 COVID-19 Vaccine (1) COVID-19 Vaccine (1) [facility] Start: 1974 Depression Screen Depression Screen [facility] Start: 1974 Depression Screening Depression Screening [facility] Start: 1972 Diabetic foot examination Diabetes: Foot Exam [facility] Start: 1972 Glaucoma screening Diabetes: Retinopathy Screening [facility] Start: 1972 Preventive dental service Diabetes: Dental Exam [facility] Start: 1963 MMR Vaccines (1 of 1 - Standard series) MMR Vaccines (1 of 1 - Standard series) [facility] Start: 1962 Annual Wellness Visit (AWV) Annual Wellness Visit (AWV) [facility] Start: 1962 Diabetic foot examination [facility] Start: 1962 DISCONTINUED Medicare Advantage Annual Wellness Visit (AWV) DISCONTINUED Medicare Advantage Annual Wellness Visit (AWV) [facility] Start: 1962 [facility] Start: 1962 Hepatitis C screen Hepatitis C screen [place], [place] Start: 1962 Hepatitis C screening Hepatitis C screen [facility] Start: 1962 HIV screening HIV Screening [facility] Start: 1962 Lipid panel Lipid Panel [facility] Start: 1962 Medicare Advantage Annual Wellness Visit (AWV) Medicare Advantage Annual Wellness Visit (AWV) [facility] Start: 1962 Screening for malignant neoplasm of colon [facility] 6-minute walk test EXERCISE-6 LA N. WALK PFT Routine S/P lung transplant Encounter for aftercare following lung transplant Immunosuppressed status 11/08/2022 1:32 PM EST [facility] End: 05-16-2023 ANAEROBE CULTURE ANAEROBE CULTURE Microbiology Urgent One Time for 1 Occurrences starting 05/16/2023 until 05/16/2023 [facility] Work Phone: Comment on above: One Time for 1 Occurrences starting 04/18 until 05/16/2023 Bacteria identified in Blood by Culture [facility] End: 05-16-2023 Bacteria identified in Blood by Culture [facility] Comment on above: One Time for 1 Occurrences starting 04/18 until 05/16/2023 Bacteria identified in Lower respiratory specimen by Aerobe culture Respiratory culture Microbiology Routine 05/16/2023 12:26 AM EDT [facility] End: 05-15-2023 Bacteria identified in Unspecified specimen by Aerobe culture Culture, Aerobic Bacteria with Gram Stain Microbiology Routine Once (Lab) for 1 Occurrences starting 05/15/2023 until 05/15/2023 [facility] Comment on above: Once (Lab) for 1 Occurrences starting until 05/15/2023 Bacteria identified in Unspecified specimen by Aerobe culture Culture, Aerobic Bacteria with Gram Stain Microbiology Routine 05/16/2023 4:47 PM EDT [facility] End: 05-15-2023 Beta D Glucan [facility] Work Phone: Comment on above: Once (Lab) for 1 Occurrences starting until 05/15/2023 End: 05-16-2023 BLASTOMYCES, FLUID BLASTOMYCES, FLUID Fluids Routine One Time for 1 Occurrences starting 05/16/2023 until 05/16/2023 [facility] Comment on above: One Time for 1 Occurrences starting 04/18 until 05/16/2023 End: 12-16-2020 Blood glucose - POCT Blood glucose - POCT Point of Care Testing STAT One Time for 1 Occurrences starting 12/16/2020 until 12/16/2020 [facility] Work Phone: Comment on above: One Time for 1 Occurrences starting 11/2020 until 12/16/2020 End: 08-14-2019 Blood glucose - POCT Blood glucose - POCT Point of Care Testing STAT One Time for 1 Occurrences starting 08/14/2019 until 08/14/2019 [facility] [facility] Comment on above: One Time for 1 Occurrences starting 07/18 until 08/14/2019 End: 05-15-2023 Body Fluid Cell Count w/ Reflex Diff Body Fluid Cell Count w/ Reflex Diff Lab Routine Once (Lab) for 1 Occurrences starting 05/15/2023 until 05/15/2023 [facility] Comment on above: Once (Lab) for 1 Occurrences starting until 05/15/2023 CBC,PLATELETS CBC,PLATELETS La b Routine Every morning Lab until discontinued starting 05/17/2023, 5 completed [facility] Comment on above: Every morning Lab until discontinued sta rting 05/17/2023, 5 completed CHEM 7 (LYTES,BUN,CREA,GLUC) GRAZYNA M 7 (LYTES,BUN,CREA,GLUC) Lab Routine Every morning Lab until discontinued starting 05/17/2023, 5 completed [facility] Comment on above: Every morning Lab until discontinued sta rting 05/17/2023, 5 completed End: 11-24-2020 Chloride [Moles/Vol] Chloride Lab Routine Once for 1 Occurrences starting 11/24/2020 until 11/24/2020 [facility] Comment on above: Once for 1 Occurrences starting 11/24/19 until 11/24/2020 End: 01-27-2021 Chloride [Moles/Vol] Chloride Lab Routine Once for 1 Occurrences starting 01/27/2021 until 01/27/2021 [facility] Work Phone: Comment on above: Once for 1 Occurrences starting 01/28/20 until 01/27/2021 End: 06-11-2019 CMV by PCR Quantitative CMV by PCR Quantitative Lab Routine Once for 1 Occurrences starting 06/11/2019 until 06/11/2019 [facility] Comment on above: Once for 1 Occurrences starting 06/11/20 19 until 06/11/2019 CMV by PCR Quantitative [facility] [place] End: 09-03-2019 CMV by PCR Quantitative CMV by PCR Quantitative Lab Routine Once for 1 Occurrences starting 09/03/2019 until 09/03/2019 [facility] [place] Comment on above: Once for 1 Occurrences starting 09/03/20 19 until 09/03/2019 End: 09-12-2019 CMV by PCR Quantitative CMV by PCR Quantitative Lab Routine Once for 1 Occurrences starting 09/12/2019 until 09/12/2019 [facility], [facility] Comment on above: Once for 1 Occurrences starting 09/12/20 until 09/12/2019 End: 12-10-2019 CMV by PCR Quantitative CMV by PCR Quantitative Lab Routine Once for 1 Occurrences starting 12/10/2019 until 12/10/2019 [facility], [facility] Comment on above: Once for 1 Occurrences starting 12/10/19 20 until 12/10/2019 End: 12-17-2019 CMV by PCR Quantitative CMV by PCR Quantitative Lab Routine Once for 1 Occurrences starting 12/17/2019 until 12/17/2019 [facility] Comment on above: Once for 1 Occurrences starting 12/17/19 20 until 12/17/2019 End: 02-18-2020 CMV by PCR Quantitative CMV by PCR Quantitative Lab Routine Once for 1 Occurrences starting 02/18/2020 until 02/18/2020 [facility], [facility] Comment on above: Once for 1 Occurrences starting 02/18/20 20 until 02/18/2020 End: 01-21-2020 CMV by PCR Quantitative CMV by PCR Quantitative Lab Routine Once for 1 Occurrences starting 01/21/2020 until 01/21/2020 [facility] Comment on above: Once for 1 Occurrences starting 01/21/20 20 until 01/21/2020 End: 03-26-2020 CMV by PCR Quantitative CMV by PCR Quantitative Lab Routine Once for 1 Occurrences starting 03/26/2020 until 03/26/2020 [facility] Comment on above: Once for 1 Occurrences starting 03/26/20 20 until 03/26/2020 End: 05-02-2020 CMV by PCR Quantitative CMV by PCR Quantitative Lab Routine Once for 1 Occurrences starting 05/02/2020 until 05/02/2020 [facility] Comment on above: Once for 1 Occurrences starting 05/02/20 20 until 05/02/2020 End: 05-26-2020 CMV by PCR Quantitative CMV by PCR Quantitative Lab Routine Once for 1 Occurrences starting 05/26/2020 until 05/26/2020 [facility] Comment on above: Once for 1 Occurrences starting 05/26/20 until 05/26/2020 End: 06-26-2020 CMV by PCR Quantitative CMV by PCR Quantitative Lab Routine Once for 1 Occurrences starting 06/26/2020 until 06/26/2020 [facility] Comment on above: Once for 1 Occurrences starting 06/26/20 until 06/26/2020 End: 08-26-2020 CMV by PCR Quantitative CMV by PCR Quantitative Lab Routine Once for 1 Occurrences starting 08/26/2020 until 08/26/2020 [facility], [place] Comment on above: Once for 1 Occurrences starting 08/26/20 until 08/26/2020 End: 09-19-2020 CMV by PCR Quantitative CMV by PCR Quantitative Lab Routine Once for 1 Occurrences starting 09/19/2020 until 09/19/2020 [facility] Comment on above: Once for 1 Occurrences starting 09/19/20 20 until 09/19/2020 End: 08-15-2019 CMV by PCR Quantitative CMV by PCR Quantitative Lab Routine Once for 1 Occurrences starting 08/15/2019 until 08/15/2019 [facility], [facility] Comment on above: Once for 1 Occurrences starting 08/15/20 19 until 08/15/2019 End: 11-24-2020 CMV by PCR Quantitative CMV by PCR Quantitative Lab Routine Once for 1 Occurrences starting 11/24/2020 until 11/24/2020 [facility] Comment on above: Once for 1 Occurrences starting 11/24/19 21 until 11/24/2020 End: 12-23-2020 CMV by PCR Quantitative CMV by PCR Quantitative Lab Routine Once for 1 Occurrences starting 12/23/2020 until 12/23/2020 [facility] Work Phone: Comment on above: Once for 1 Occurrences starting 12/24/19 21 until 12/23/2020 End: 07-22-2020 CMV by PCR Quantitative CMV by PCR Quantitative Lab Routine Once for 1 Occurrences starting 07/22/2020 until 07/22/2020 [facility] Comment on above: Once for 1 Occurrences starting 07/22/20 20 until 07/22/2020 End: 07-16-2019 CMV by PCR Quantitative CMV by PCR Quantitative Lab Routine Once for 1 Occurrences starting 07/16/2019 until 07/16/2019 [facility] Comment on above: Once for 1 Occurrences starting 07/16/20 19 until 07/16/2019 End: 11-19-2019 CMV by PCR Quantitative CMV by PCR Quantitative Lab Routine Once for 1 Occurrences starting 11/19/2019 until 11/19/2019 [facility] Work Phone: Comment on above: Once for 1 Occurrences starting 11/19/19 until 11/19/2019 End: 10-08-2019 CMV by PCR Quantitative CMV by PCR Quantitative Lab Routine Once for 1 Occurrences starting 10/08/2019 until 10/08/2019 [facility] Work Phone: Comment on above: Once for 1 Occurrences starting 10/08/20 19 until 10/08/2019 End: 10-23-2019 CMV by PCR Quantitative CMV by PCR Quantitative Lab Routine Once for 1 Occurrences starting 10/23/2019 until 10/23/2019 [facility] Work Phone: Comment on above: Once for 1 Occurrences starting 10/23/19 20 until 10/23/2019 End: 07-24-2021 CMV IgM CMV IgM Lab Routine Once for 1 Occurrences starting 07/24/2021 until 07/24/2021 [facility] Work Phone: Comment on above: Once for 1 Occurrences starting 07/24/20 21 until 07/24/2021 CMV IgM CMV IgM Lab Rout ine 07/24/2021 10:42 AM EDT [facility] Work Phone: End: 08-24-2021 CMV IgM CMV IgM Lab Routine Once for 1 Occurrences starting 08/24/2021 until 08/24/2021 [facility] Work Phone: Comment on above: Once for 1 Occurrences starting 08/24/20 21 until 08/24/2021 CMV IgM CMV IgM Lab Rout ine 08/24/2021 9:01 AM EST [facility] Work Phone: End: 12-18-2021 CMV IgM CMV IgM Lab Routine Once for 1 Occurrences starting 12/18/2021 until 12/18/2021 [facility] Work Phone: Comment on above: Once for 1 Occurrences starting 12/19/19 until 12/18/2021 CMV IgM CMV IgM Lab Rout ine 12/18/2021 10:11 AM EST [facility] Work Phone: End: 03-02-2022 CMV IgM CMV IgM Lab Routine Once for 1 Occurrences starting 03/02/2022 until 03/02/2022 [facility] Work Phone: Comment on above: Once for 1 Occurrences starting 03/02/20 until 03/02/2022 CMV IgM CMV IgM Lab Rout ine 03/02/2022 10:43 AM EDT [facility] Work Phone: End: 11-24-2020 CO2, Total CO2, Total Lab Routine Once for 1 Occurrences starting 11/24/2020 until 11/24/2020 [place] Comment on above: Once for 1 Occurrences starting 11/24/19 until 11/24/2020 End: 01-27-2021 CO2, Total CO2, Total Lab Routine Once for 1 Occurrences starting 01/27/2021 until 01/27/2021 [employer] Work Phone: Comment on above: Once for 1 Occurrences starting 01/28/20 21 until 01/27/2021 Complete PFT Pre and Post Bronchodilator Complete PFT Pre and Post Bronchodilator PFT Routine 12/31/2020 2:16 PM EDT [employer] Work Phone: Complete PFT study Complete PFT study PFT Routine Lung transplant status (HCC) Encounter for aftercare following lung transplant (HCC) Immunodeficiency, unspecified (HCC) 08/01/2024 8:29 AM EDT [employer] Work Phone: End: 12-16-2020 Creatinine [Mass/Vol] Creatinine, serum Lab STAT One Time for 1 Occurrences starting 12/16/2020 until 12/16/2020 [employer] Work Phone: Comment on above: One Time for 1 Occurrences starting 11/2020 until 12/16/2020 End: 07-30-2019 CT Abdomen Pelvis Wo Contrast CT Abdomen Pelvis Wo Contrast Imaging Routine Once for 1 Occurrences starting 07/30/2019 until 07/30/2019 [facility] [place] Comment on above: Once for 1 Occurrences starting 07/30/20 19 until 07/30/2019 CT Abdomen Pelvis Wo Contrast CT Abdomen Pelvis Wo Contrast Imaging Routine 07/30/2019 2:10 PM EDT [facility] [place] End: 11-08-2022 CT Chest WO contrast [facility] Comment on above: 1 Occurrences starting 11/08/2022 until 11/08/2022 End: 01-27-2021 Cytomegalovirus (CMV) by PCR Cytomegalovirus (CMV) by PCR Microbiology Routine Once for 1 Occurrences starting 01/27/2021 until 01/27/2021 [facility] Work Phone: Comment on above: Once for 1 Occurrences starting 01/28/20 21 until 01/27/2021 Cytomegalovirus (CMV) by PCR [facility] Work Phone: End: 04-02-2021 Cytomegalovirus (CMV) by PCR Cytomegalovirus (CMV) by PCR Microbiology Routine Once for 1 Occurrences starting 04/02/2021 until 04/02/2021 [facility] Work Phone: Comment on above: Once for 1 Occurrences starting 04/02/20 21 until 04/02/2021 End: 04-22-2021 Cytomegalovirus (CMV) by PCR Cytomegalovirus (CMV) by PCR Microbiology Routine Once for 1 Occurrences starting 04/22/2021 until 04/22/2021 [facility] Work Phone: Comment on above: Once for 1 Occurrences starting 04/22/20 21 until 04/22/2021 End: 05-19-2021 Cytomegalovirus (CMV) by PCR Cytomegalovirus (CMV) by PCR Microbiology Routine Once for 1 Occurrences starting 05/19/2021 until 05/19/2021 [facility] Work Phone: Comment on above: Once for 1 Occurrences starting 05/19/20 21 until 05/19/2021 End: 05-19-2023 DISCONTINUE EEG ENGINEER OF SYSTEM DEVELOPMENT MONITORING DISCONTINUE EEG CARE HOME MONITORING Neurology Routine One Time for 1 Occurrences starting 05/19/2023 until 05/19/2023 [facility] Comment on above: One Time for 1 Occurrences starting 12/2022 until 05/19/2023 End: 05-17-2023 EBV RAPID PCR, CSF ONLY EBV RAPID PCR, CSF ONLY Fluids Routine One Time for 1 Occurrences starting 05/17/2023 until 05/17/2023 [facility] Comment on above: One Time for 1 Occurrences starting 10/2022 until 05/17/2023 EKG 12 Lead EKG 12 Lead ECG Routine 08/13/2019 4:47 PM EDT [place], [place] End: 05-16-2023 Electroencephalogram EEG CARE HOME MONITORING Neurology Urgent One Time for 1 Occurrences starting 05/16/2023 until 05/16/2023 [facility] Comment on above: One Time for 1 Occurrences starting 04/18 until 05/16/2023 End: 05-16-2023 ENCEPHALOPATHY, AUTOIMMUNE EVALUATION, CSF ENCEPHALOPATHY, AUTOIMMUNE EVALUATION, CSF Fluids Urgent One Time for 1 Occurrences starting 05/16/2023 until 05/16/2023 [facility] Comment on above: One Time for 1 Occurrences starting 04/18 until 05/16/2023 End: 05-17-2023 ENCEPHALOPATHY, AUTOIMMUNE EVALUATION, CSF ENCEPHALOPATHY, AUTOIMMUNE EVALUATION, CSF Fluids Routine One Time for 1 Occurrences starting 05/17/2023 until 05/17/2023 [facility] Comment on above: One Time for 1 Occurrences starting 10/2022 until 05/17/2023 ENCEPHALOPATHY, AUTO IMMUNE EVALUATION, SERUM ENCEPHALOPATHY, AUTOIMMUNE EVALUATION, SERUM Lab Urgent 05/16/2023 9:50 PM EDT [facility] End: 08-26-2020 Robel Mclaughlin Virus (EBV) Antibody Panel I Robel Mclaughlin Virus (EBV) Antibody Panel I Lab Routine Once for 1 Occurrences starting 08/26/2020 until 08/26/2020 [place], [place] Comment on above: Once for 1 Occurrences starting 08/26/20 20 until 08/26/2020 Robel Mclaughlin Virus ( EBV) Antibody Panel I [place], [place] End: 01-27-2021 Robel Mclaughlin Virus (EBV) Antibody Panel I Robel Mclaughlin Virus (EBV) Antibody Panel I Lab Routine Once for 1 Occurrences starting 01/27/2021 until 01/27/2021 [facility] Work Phone: Comment on above: Once for 1 Occurrences starting 01/28/20 21 until 01/27/2021 End: 04-02-2021 Robel Mclaughlin Virus (EBV) Antibody Panel I Robel Mclaughlin Virus (EBV) Antibody Panel I Lab Routine Once for 1 Occurrences starting 04/02/2021 until 04/02/2021 [facility] Work Phone: Comment on above: Once for 1 Occurrences starting 04/02/20 21 until 04/02/2021 End: 05-19-2021 Robel Mclaughlin Virus (EBV) Antibody Panel I Robel Mclaughlin Virus (EBV) Antibody Panel I Lab Routine Once for 1 Occurrences starting 05/19/2021 until 05/19/2021 [facility] Work Phone: Comment on above: Once for 1 Occurrences starting 05/19/20 until 05/19/2021 End: 10-29-2020 Robel Mclaughlin Virus PCR, CSF Robel Mclaughlin Virus PCR, CSF Lab Routine Once for 1 Occurrences starting 10/29/2020 until 10/29/2020 [facility] Comment on above: Once for 1 Occurrences starting 10/29/19 until 10/29/2020 Robel Mclaughlin Virus PCR, CSF Epst ein Mclaughlin Virus PCR, CSF Lab Routine 10/29/2020 2:29 PM EST [facility], [place] End: 12-18-2021 Robel-Mclaughlin Virus Panel Robel-Mclaughlin Virus Panel Lab Routine Once for 1 Occurrences starting 12/18/2021 until 12/18/2021 [facility] Work Phone: Comment on above: Once for 1 Occurrences starting 12/19/19 until 12/18/2021 Robel-Mclaughlin Virus Panel Robel -Mclaughlin Virus Panel Lab Routine 12/18/2021 10:11 AM EST [facility] Work Phone: End: 03-02-2022 Robel-Mclaughlin Virus Panel Robel-Mclaughlin Virus Panel Lab Routine Once for 1 Occurrences starting 03/02/2022 until 03/02/2022 [facility] Work Phone: Comment on above: Once for 1 Occurrences starting 03/02/20 22 until 03/02/2022 Robel-Mclaughlin Virus Panel Robel -Mclaughlin Virus Panel Lab Routine 03/02/2022 10:44 AM EDT [employer] Work Phone: End: 03-29-2022 FL LESS THAN 1 HOUR [employer] Work Phone: Comment on above: Once for 1 Occurrences starting 03/29/20 22 until 03/29/2022 Fungus identified in Blood by Culture Fungal culture, blood Microbiology Routine 05/15/2023 11:[facility] End: 05-15-2023 Fungus identified in Unspecified specimen by Culture [facility] Comment on above: Once (Lab) for 1 Occurrences starting until 05/15/2023 End: 05-15-2023 Fungus identified in Unspecified specimen by Fungus stain [facility] Comment on above: Once (Lab) for 1 Occurrences starting until 05/15/2023 End: 05-16-2023 HISTOPLASMA AG, CSF HISTOPLASMA AG, CSF Fluids Urgent One Time for 1 Occurrences starting 05/16/2023 until 05/16/2023 [facility] Comment on above: One Time for 1 Occurrences starting 04/18 until 05/16/2023 End: 10-29-2020 Immunoglobulin A Immunoglobulin A Lab Routine Once for 1 Occurrences starting 10/29/2020 until 10/29[facility]: Once for 1 Occurrences starting 10/29/19 21 until 10/29/2020 Immunoglobulin A [facility] [place] End: 01-27-2021 Immunoglobulin A Immunoglobulin A Lab Routine Once for 1 Occurrences starting 01/27/2021 until 01/27/2021 [facility] Work Phone: Comment on above: Once for 1 Occurrences starting 01/28/20 21 until 01/27/2021 End: 04-02-2021 Immunoglobulin A Immunoglobulin A Lab Routine Once for 1 Occurrences starting 04/02/2021 until 04/02/2021 [facility] Work Phone: Comment on above: Once for 1 Occurrences starting 04/02/20 21 until 04/02/2021 End: 05-19-2021 Immunoglobulin A Immunoglobulin A Lab Routine Once for 1 Occurrences starting 05/19/2021 until 05/19/2021 [facility] Work Phone: Comment on above: Once for 1 Occurrences starting 05/19/20 21 until 05/19/2021 End: 12-18-2021 Immunoglobulin A Immunoglobulin A Lab Routine Once for 1 Occurrences starting 12/18/2021 until 12/18/2021 [facility] Work Phone: Comment on above: Once for 1 Occurrences starting 12/19/19 until 12/18/2021 Immunoglobulin A Immunoglobulin A Lab Routine 12/18/2021 10:11 AM EST [facility] Work Phone: End: 03-02-2022 Immunoglobulin A Immunoglobulin A Lab Routine Once for 1 Occurrences starting 03/02/2022 until 03/02/2022 [facility] Work Phone: Comment on above: Once for 1 Occurrences starting 03/02/20 until 03/02/2022 Immunoglobulin A Immunoglobulin A Lab Routine 03/02/2022 10:43 AM EDT [facility] Work Phone: End: 10-29-2020 Immunoglobulin G Immunoglobulin G Lab Routine Once for 1 Occurrences starting 10/29/2020 until 10/29/2020 [facility], [place] Comment on above: Once for 1 Occurrences starting 10/29/19 until 10/29/2020 Immunoglobulin G [facility], [place] End: 01-27-2021 Immunoglobulin G Immunoglobulin G Lab Routine Once for 1 Occurrences starting 01/27/2021 until 01/27/2021 [facility] Work Phone: Comment on above: Once for 1 Occurrences starting 01/28/20 until 01/27/2021 End: 04-02-2021 Immunoglobulin G Immunoglobulin G Lab Routine Once for 1 Occurrences starting 04/02/2021 until 04/02/2021 [facility] Work Phone: Comment on above: Once for 1 Occurrences starting 04/02/20 until 04/02/2021 End: 05-19-2021 Immunoglobulin G Immunoglobulin G Lab Routine Once for 1 Occurrences starting 05/19/2021 until 05/19/2021 [facility] Work Phone: Comment on above: Once for 1 Occurrences starting 05/19/20 until 05/19/2021 End: 12-18-2021 Immunoglobulin G Immunoglobulin G Lab Routine Once for 1 Occurrences starting 12/18/2021 until 12/18/2021 [facility] Work Phone: Comment on above: Once for 1 Occurrences starting 12/19/19 until 12/18/2021 Immunoglobulin G Immunoglobulin G Lab Routine 12/18/2021 10:11 AM EST [facility] Work Phone: End: 03-02-2022 Immunoglobulin G Immunoglobulin G Lab Routine Once for 1 Occurrences starting 03/02/2022 until 03/02/2022 [facility] Work Phone: Comment on above: Once for 1 Occurrences starting 03/02/20 until 03/02/2022 Immunoglobulin G Immunoglobulin G Lab Routine 03/02/2022 10:43 AM EDT [facility] Work Phone: End: 10-29-2020 Immunoglobulin M Immunoglobulin M Lab Routine Once for 1 Occurrences starting 10/29/2020 until 10/29/2020 [facility] Comment on above: Once for 1 Occurrences starting 10/29/19 21 until 10/29/2020 Immunoglobulin M [facility], [place] End: 01-27-2021 Immunoglobulin M Immunoglobulin M Lab Routine Once for 1 Occurrences starting 01/27/2021 until 01/27/2021 [facility] Work Phone: Comment on above: Once for 1 Occurrences starting 01/28/20 until 01/27/2021 End: 04-02-2021 Immunoglobulin M Immunoglobulin M Lab Routine Once for 1 Occurrences starting 04/02/2021 until 04/02/2021 [facility] Work Phone: Comment on above: Once for 1 Occurrences starting 04/02/20 until 04/02/2021 End: 05-19-2021 Immunoglobulin M Immunoglobulin M Lab Routine Once for 1 Occurrences starting 05/19/2021 until 05/19/2021 [facility] Work Phone: Comment on above: Once for 1 Occurrences starting 05/19/20 until 05/19/2021 End: 12-18-2021 Immunoglobulin M Immunoglobulin M Lab Routine Once for 1 Occurrences starting 12/18/2021 until 12/18/2021 [employer] Work Phone: Comment on above: Once for 1 Occurrences starting 12/19/19 until 12/18/2021 Immunoglobulin M Immunoglobulin M Lab Routine 12/18/2021 10:11 AM EST [employer] Work Phone: End: 05-16-2023 IMMUNOPHENOTYPING, TISSUE/FLUID IMMUNOPHENOTYPING, TISSUE/FLUID Fluids Urgent One Time for 1 Occurrences starting 05/16/2023 until 05/16/2023 [facility] Comment on above: One Time for 1 Occurrences starting 04/18 until 05/16/2023 Incentive spirometry Incentive s pirometry Respiratory Care Routine Q1H PRN until discontinued [facility]: Q1H PRN until discontinued starting 07/18 Initiate Oxygen Ther apy Protocol Initiate Oxygen Therapy Protocol Respiratory Care Routine Daily until discontinued starting 08/14/2019 [facility] [place] Comment on above: Daily until discontinued starting 2018 End: 12-16-2020 Intermittent pulse oximetry Pulse Oximetry Spot Check Respiratory Care Routine One Time for 1 Occurrences starting 12/16/2020 until 12/16/2020 [employer] Work Phone: Comment on above: One Time for 1 Occurrences starting 11/2020 until 12/16/2020 End: 05-15-2023 LOUISE virus DNA [#/volume] (viral load) in Unspecified specimen by COREY with probe detection [facility] Comment on above: Once (Lab) for 1 Occurrences starting until 05/15/2023 End: 05-17-2023 LOUISE/BK VIRUS BY PCR, CSF LOUISE/BK VIRUS BY PCR, CSF Fluids Routine One Time for 1 Occurrences starting 05/17/2023 until 05/17/2023 [facility] Comment on above: One Time for 1 Occurrences starting 10/2022 until 05/17/2023 Lac Repair Lac Repair Proce dures Routine 03/29/2022 5:56 PM EDT [employer] Work Phone: End: 05-15-2023 Lactic acid, sepsis, with reflex if elevated Lactic acid, sepsis, with reflex if elevated Lab STAT STAT (Lab) for 1 Occurrences starting 05/15/2023 until 05/15/2023 [employer] Work Phone: Comment on above: STAT (Lab) for 1 Occurrences starting until 05/15/2023 End: 05-16-2023 LYME DISEASE BY PCR, FLUID LYME DISEASE BY PCR, FLUID Fluids Urgent One Time for 1 Occurrences starting 05/16/2023 until 05/16/2023 [facility] Comment on above: One Time for 1 Occurrences starting 04/18 until 05/16/2023 Magnesium [Mass/volu me] in Serum or Plasma MAGNESIUM Lab Routine Every morning Lab until discontinued starting 05/17/2023, 5 completed [facility] Comment on above: Every morning Lab until discontinued sta rting 05/17/2023, 5 completed Measurement of respi ratory function PFT STANDARD PFT Routine S/P lung transplant Immunosuppressed status 05/03/2022 2:54 PM EDT [facility] Measurement of respi ratory function PFT STANDARD PFT Routine S/P lung transplant Encounter for aftercare following lung transplant Immunosuppressed status 11/08/2022 1:32 PM EST [facility] Measurement of respi ratory function PFT STANDARD PFT Routine S/P lung transplant Immunosuppressed status 05/10/2024 1:35 PM EDT [facility] Measurement of serum ionized calcium IONIZED CALCIUM, WHOLE BLOOD Lab Routine UD PRN until discontinued starting 05/16/2023 [facility] Comment on above: UD PRN until discontinued starting 05/16 End: 05-19-2023 MR Brain WO and W contrast IV MRI BRAIN WITH AND WITHOUT CONTRAST Imaging Routine One Time for 1 Occurrences starting 05/19/2023 until 05/19/2023 [facility] Comment on above: One Time for 1 Occurrences starting 12/2022 until 05/19/2023 End: 08-05-2023 MR Brain WO and W contrast IV [employer] Work Phone: Comment on above: Once for 1 Occurrences starting 08/05/20 until 08/05/2023 End: 05-19-2023 MR Cervical and thoracic and lumbar spine WO and W contrast IV MRI ENTIRE SPINE SCREENING WITH AND WITHOUT CONTRAST Imaging Routine One Time for 1 Occurrences starting 05/19/2023 until 05/19/2023 [facility] Comment on above: One Time for 1 Occurrences starting 12/2022 until 05/19/2023 End: 02-14-2021 MRI LUMBAR SPINE WO CONTRAST MRI LUMBAR SPINE WO CONTRAST Imaging Routine Once for 1 Occurrences starting 02/14/2021 until 02/14/2021 [employer] Work Phone: Comment on above: Once for 1 Occurrences starting 02/15/20 21 until 02/14/2021 MRI LUMBAR SPINE WO CONTRAST MRI LUMBAR SPINE WO CONTRAST Imaging Routine 02/14/2021 11:10 AM EDT [employer] Work Phone: End: 05-16-2023 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 [employer] Work Phone: Comment on above: Once (Lab) for 1 Occurrences starting until 05/16/2023 Oxygen therapy [[facility] Data Set] Initiate Oxygen Therapy Protocol Respiratory Care Routine Daily until discontinued starting 12/16/2020 [employer] Work Phone: Comment on above: Daily until discontinued starting 2020 PARANEOPLASTIC SYNDROME PARANEOP LASTIC SYNDROME Lab Urgent 05/16/2023 9:50 PM EDT [facility] Phase I & II - meter ed glucose [facility] [place], [place] Comment on above: As Needed until discontinued starting As Needed until disc ontinued starting 08/14/2019 PHOSPHATE, INORGANIC PHOSPHATE, INORGANIC Lab Routine UD PRN until discontinued starting 05/16/2023, 1 completed [facility] Comment on above: UD PRN until discontinued starting 05/16, 1 completed PHOSPHATE, INORGANIC PHOSPHATE, INORGANIC Lab Routine Every morning Lab until discontinued starting 05/18/2023, 4 completed [facility] Comment on above: Every morning Lab until discontinued sta rting 05/18/2023, 4 completed End: 11-24-2020 Potassium [Moles/Vol] Potassium Lab Routine Once for 1 Occurrences starting 11/24/2020 until 11/24[facility] Once for 1 Occurrences starting 11/24/19 until 11/24/2020 End: 01-27-2021 Potassium [Moles/Vol] Potassium Lab Routine Once for 1 Occurrences starting 01/27/2021 until 01/27/2021 [facility] Work Phone: Comment on above: Once for 1 Occurrences starting 01/28/20 until 01/27/2021 Potassium [Moles/vol ume] in Serum or Plasma POTASSIUM Lab Routine UD PRN until discontinued starting 05/16/2023 [facility] Comment on above: UD PRN until discontinued starting 05/16 End: 12-16-2020 Potassium w/ Reflex to Magnesium Potassium w/ Reflex to Magnesium Lab Routine One Time for 1 Occurrences starting 12/16/2020 until 12/16/2020 [facility] Work Phone: Comment on above: One Time for 1 Occurrences starting 11/2020 until 12/16/2020 End: 12-16-2020 , urine , urine Lab STAT One Time for 1 Occurrences starting 12/16/2020 until 12/16/2020 [facility] Work Phone: Comment on above: One Time for 1 Occurrences starting 11/2020 until 12/16/2020 End: 12-16-2020 Protime-INR Protime-INR Lab STAT One Time for 1 Occurrences starting 12/16/2020 until 12/16/2020 [facility] Work Phone: Comment on above: One Time for 1 Occurrences starting 11/2020 until 12/16/2020 End: 08-14-2019 Pulse Oximetry Spot Check Pulse Oximetry Spot Check Respiratory Care Routine One Time for 1 Occurrences starting 08/14/2019 until [facility]/14[facility]: One Time for 1 Occurrences starting 07/18 until 08/14/2019 End: 05-18-2023 Retired procedure EXTUBATION Respiratory Care Routine One Time for 1 Occurrences starting 05/18/2023 until 05/18/2023 [facility] Comment on above: One Time for 1 Occurrences starting 11/2022 until 05/18/2023 End: 11-24-2020 Sodium [Moles/Vol] Sodium Lab Routine Once for 1 Occurrences starting 11/24/2020 until 11/24/2020 [facility] [place] Comment on above: Once for 1 Occurrences starting 11/24/19 21 until 11/24/2020 End: 01-27-2021 Sodium [Moles/Vol] Sodium Lab Routine Once for 1 Occurrences starting 01/27/2021 until 01/27/2021 [employer] Work Phone: Comment on above: Once for 1 Occurrences starting 01/28/20 until 01/27/2021 End: 12-31-2020 Spirometry Spirometry PFT Routine One Time for 1 Occurrences starting 12/31/2020 until 12/31/2020 [employer] Work Phone: Comment on above: One Time for 1 Occurrences starting 12/15 until 12/31/2020 End: 04-29-2021 Spirometry Spirometry PFT Routine One Time for 1 Occurrences starting 04/29/2021 until 04/29/2021 [employer] Work Phone: Comment on above: One Time for 1 Occurrences starting 04/16 until 04/29/2021 Spirometry Spirometry PFT R outine Lung transplant recipient (HCC) 12/27/2022 2:54 PM EDT [employer] Work Phone: Spirometry Spirometry PFT R outine Lung transplant recipient (HCC) 01/24/2023 3:24 PM EDT [employer] Work Phone: Spirometry Spirometry PFT R outine Lung transplant recipient (HCC) 02/28/2023 2:45 PM EDT [facility] Spirometry Spirometry PFT R outine Lung transplant recipient (HCC) 03/28/2023 11:12 AM EDT [employer] Work Phone: Spirometry Spirometry PFT R outine Lung transplant status (HCC) Immunodeficiency, unspecified (HCC) 05/31/2023 11:14 AM EDT [employer] Work Phone: Spirometry Spirometry PFT R outine Lung transplant status (HCC) Immunodeficiency, unspecified (HCC) 07/04/2023 9:48 AM EDT [employer] Work Phone: Spirometry Spirometry PFT R outine Lung transplant status (HCC) Immunodeficiency, unspecified (HCC) 08/01/2023 11:21 AM EDT [employer] Work Phone: Spirometry Spirometry PFT R outine Lung transplant status (HCC) Immunodeficiency, unspecified (HCC) 09/30/2023 12:14 PM EST [employer] Work Phone: Spirometry Spirometry PFT R outine Lung transplant status (HCC) Immunodeficiency, unspecified (HCC) 11/29/2023 11:19 AM EST [employer] Work Phone: Spirometry panel Incentive slim metry Respiratory Care Routine Q1H PRN until discontinued starting 12/16/2020 [employer] Work Phone: Comment on above: Q1H PRN until discontinued starting 11/2020 Spirometry Without Bronchodilator [place] End: 09-21-2021 Spirometry without bronchodilator Spirometry without bronchodilator PFT Routine One Time for 1 Occurrences starting 09/21/2021 until 09/21/2021 [employer] Work Phone: Comment on above: One Time for 1 Occurrences starting 03/2021 until 09/21/2021 End: 03-29-2022 Splint application Splint application Procedures Routine One Time for 1 Occurrences starting 03/29/2022 until 03/29/2022 [facility] Phone: Comment on above: One Time for 1 Occurrences starting 03/17 until 03/29/2022 End: 05-16-2023 Standard ECG [facility] Comment on above: Needed until discontinued starting One Time for 1 Occur rences starting 05/16/2023 until 05/16/2023 Standard ECG ECG ECG Routine S/P lung transplant Immunosuppressed status Encounter for aftercare following lung transplant 11/07/2023 1:33 PM EST [facility] End: 06-11-2019 Tacrolimus Level Tacrolimus Level Lab Routine Once for 1 Occurrences starting 06/11/2019 until 06/11/2019 [facility], [place] Comment on above: Once for 1 Occurrences starting 06/11/20 until 06/11/2019 Tacrolimus Level [place], [place] End: 06-14-2019 Tacrolimus Level Tacrolimus Level Lab Routine Once for 1 Occurrences starting 06/14/2019 until 06/14/2019 [place] Comment on above: Once for 1 Occurrences starting 06/14/20 until 06/14/2019 End: 06-19-2019 Tacrolimus Level Tacrolimus Level Lab Routine Once for 1 Occurrences starting 06/19/2019 until 06/19/2019 [place] Comment on above: Once for 1 Occurrences starting 06/19/20 until 06/19/2019 End: 06-21-2019 Tacrolimus Level Tacrolimus Level Lab Routine Once for 1 Occurrences starting 06/21/2019 until 06/21/2019 [place] Comment on above: Once for 1 Occurrences starting 06/21/20 until 06/21/2019 End: 06-25-2019 Tacrolimus Level Tacrolimus Level Lab Routine Once for 1 Occurrences starting 06/25/2019 until 06/25/2019 [place] Comment on above: Once for 1 Occurrences starting 06/25/20 until 06/25/2019 End: 07-02-2019 Tacrolimus Level Tacrolimus Level Lab Routine Once for 1 Occurrences starting 07/02/2019 until 07/02/2019 [place] Comment on above: Once for 1 Occurrences starting 07/02/20 until 07/02/2019 End: 07-16-2019 Tacrolimus Level Tacrolimus Level Lab Routine Once for 1 Occurrences starting 07/16/2019 until 07/16/2019 [place] Comment on above: Once for 1 Occurrences starting 07/16/20 until 07/16/2019 End: 07-30-2019 Tacrolimus Level Tacrolimus Level Lab Routine Once for 1 Occurrences starting 07/30/2019 until 07/30/2019 [place] Comment on above: Once for 1 Occurrences starting 07/30/20 until 07/30/2019 End: 08-20-2019 Tacrolimus Level Tacrolimus Level Lab Routine Once for 1 Occurrences starting 08/20/2019 until 08/20/2019 [place], [place] Comment on above: Once for 1 Occurrences starting 08/20/20 19 until 08/20/2019 End: 08-23-2019 Tacrolimus Level Tacrolimus Level Lab Routine Once for 1 Occurrences starting 08/23/2019 until 08/23/2019 [facility], [place] Comment on above: Once for 1 Occurrences starting 08/23/20 until 08/23/2019 End: 08-27-2019 Tacrolimus Level Tacrolimus Level Lab Routine Once for 1 Occurrences starting 08/27/2019 until 08/27/2019 [facility] Comment on above: Once for 1 Occurrences starting 08/27/20 until 08/27/2019 End: 09-03-2019 Tacrolimus Level Tacrolimus Level Lab Routine Once for 1 Occurrences starting 09/03/2019 until 09/03/2019 [facility] Comment on above: Once for 1 Occurrences starting 09/03/20 until 09/03/2019 End: 09-12-2019 Tacrolimus Level Tacrolimus Level Lab Routine Once for 1 Occurrences starting 09/12/2019 until 09/12/2019 [place], [place] Comment on above: Once for 1 Occurrences starting 09/12/20 until 09/12/2019 End: 11-26-2019 Tacrolimus Level Tacrolimus Level Lab Routine Once for 1 Occurrences starting 11/26/2019 until 11/26/2019 [facility] Work Phone: Comment on above: Once for 1 Occurrences starting 11/26/19 until 11/26/2019 End: 12-04-2019 Tacrolimus Level Tacrolimus Level Lab Routine Once for 1 Occurrences starting 12/04/2019 until 12/04/2019 [facility] Work Phone: Comment on above: Once for 1 Occurrences starting 12/04/19 until 12/04/2019 End: 12-10-2019 Tacrolimus Level Tacrolimus Level Lab Routine Once for 1 Occurrences starting 12/10/2019 until 12/10/2019 [facility] Comment on above: Once for 1 Occurrences starting 12/10/19 until 12/10/2019 End: 02-04-2020 Tacrolimus Level Tacrolimus Level Lab Routine Once for 1 Occurrences starting 02/04/2020 until 02/04/2020 [facility] Comment on above: Once for 1 Occurrences starting 02/04/20 20 until 02/04/2020 End: 02-11-2020 Tacrolimus Level Tacrolimus Level Lab Routine Once for 1 Occurrences starting 02/11/2020 until 02/11/2020 [facility] Comment on above: Once for 1 Occurrences starting 02/11/20 20 until 02/11/2020 End: 12-17-2019 Tacrolimus Level Tacrolimus Level Lab Routine Once for 1 Occurrences starting 12/17/2019 until 12/17/2019 [facility] Comment on above: Once for 1 Occurrences starting 12/17/19 20 until 12/17/2019 End: 02-18-2020 Tacrolimus Level Tacrolimus Level Lab Routine Once for 1 Occurrences starting 02/18/2020 until 02/18/2020 [facility] Comment on above: Once for 1 Occurrences starting 02/18/20 until 02/18/2020 End: 12-31-2019 Tacrolimus Level Tacrolimus Level Lab Routine Once for 1 Occurrences starting 12/31/2019 until 12/31/2019 [place] Comment on above: Once for 1 Occurrences starting 12/31/19 20 until 12/31/2019 End: 12-24-2019 Tacrolimus Level Tacrolimus Level Lab Routine Once for 1 Occurrences starting 12/24/2019 until 12/24/2019 [facility] Comment on above: Once for 1 Occurrences starting 12/24/19 20 until 12/24/2019 End: 03-26-2020 Tacrolimus Level Tacrolimus Level Lab Routine Once for 1 Occurrences starting 03/26/2020 until 03/26/2020 [place] Comment on above: Once for 1 Occurrences starting 03/26/20 20 until 03/26/2020 End: 05-02-2020 Tacrolimus Level Tacrolimus Level Lab Routine Once for 1 Occurrences starting 05/02/2020 until 05/02/2020 [facility] Comment on above: Once for 1 Occurrences starting 05/02/20 20 until 05/02/2020 End: 05-26-2020 Tacrolimus Level Tacrolimus Level Lab Routine Once for 1 Occurrences starting 05/26/2020 until 05/26/2020 [facility] Comment on above: Once for 1 Occurrences starting 05/26/20 20 until 05/26/2020 End: 06-06-2020 Tacrolimus Level Tacrolimus Level Lab Routine Once for 1 Occurrences starting 06/06/2020 until 06/06/2020 [facility] Comment on above: Once for 1 Occurrences starting 06/06/20 20 until 06/06/2020 End: 06-26-2020 Tacrolimus Level Tacrolimus Level Lab Routine Once for 1 Occurrences starting 06/26/2020 until 06/26/2020 [facility] Comment on above: Once for 1 Occurrences starting 06/26/20 20 until 06/26/2020 End: 08-26-2020 Tacrolimus Level Tacrolimus Level Lab Routine Once for 1 Occurrences starting 08/26/2020 until 08/26/2020 [place] Comment on above: Once for 1 Occurrences starting 08/26/20 until 08/26/2020 End: 09-19-2020 Tacrolimus Level Tacrolimus Level Lab Routine Once for 1 Occurrences starting 09/19/2020 until 09/19/2020 [facility] Comment on above: Once for 1 Occurrences starting 09/19/20 until 09/19/2020 End: 10-29-2020 Tacrolimus Level Tacrolimus Level Lab Routine Once for 1 Occurrences starting 10/29/2020 until 10/29/2020 [place] Comment on above: Once for 1 Occurrences starting 10/29/19 until 10/29/2020 End: 11-04-2020 Tacrolimus Level Tacrolimus Level Lab Routine Once for 1 Occurrences starting 11/04/2020 until 11/04/2020 [place] Comment on above: Once for 1 Occurrences starting 11/04/19 until 11/04/2020 End: 06-28-2019 Tacrolimus Level Tacrolimus Level Lab Routine Once for 1 Occurrences starting 06/28/2019 until 06/28/2019 [place] Comment on above: Once for 1 Occurrences starting 06/28/20 19 until 06/28/2019 End: 12-23-2020 Tacrolimus Level Tacrolimus Level Lab Routine Once for 1 Occurrences starting 12/23/2020 until 12/23/2020 [facility] Work Phone: Comment on above: Once for 1 Occurrences starting 12/24/19 21 until 12/23/2020 End: 07-22-2020 Tacrolimus Level Tacrolimus Level Lab Routine Once for 1 Occurrences starting 07/22/2020 until 07/22/2020 [place] Comment on above: Once for 1 Occurrences starting 07/22/20 20 until 07/22/2020 End: 07-26-2019 Tacrolimus Level Tacrolimus Level Lab Routine Once for 1 Occurrences starting 07/26/2019 until 07/26/2019 [facility] Comment on above: Once for 1 Occurrences starting 07/26/20 until 07/26/2019 End: 09-17-2019 Tacrolimus Level Tacrolimus Level Lab Routine Once for 1 Occurrences starting 09/17/2019 until 09/17/2019 [facility] Comment on above: Once for 1 Occurrences starting 09/17/20 until 09/17/2019 End: 09-20-2019 Tacrolimus Level Tacrolimus Level Lab Routine Once for 1 Occurrences starting 09/20/2019 until 09/20/2019 [facility] Comment on above: Once for 1 Occurrences starting 09/20/20 until 09/20/2019 End: 08-02-2019 Tacrolimus Level Tacrolimus Level Lab Routine Once for 1 Occurrences starting 08/02/2019 until 08/02/2019 [facility] Comment on above: Once for 1 Occurrences starting 08/02/20 until 08/02/2019 End: 06-04-2019 Tacrolimus Level Tacrolimus Level Lab Routine Once for 1 Occurrences starting 06/04/2019 until 06/04/2019 [facility] [place] Comment on above: Once for 1 Occurrences starting 06/04/20 until 06/04/2019 End: 07-19-2019 Tacrolimus Level Tacrolimus Level Lab Routine Once for 1 Occurrences starting 07/19/2019 until 07/19/2019 [facility] Comment on above: Once for 1 Occurrences starting 07/19/20 until 07/19/2019 End: 08-30-2019 Tacrolimus Level Tacrolimus Level Lab Routine Once for 1 Occurrences starting 08/30/2019 until 08/30/2019 [facility] Comment on above: Once for 1 Occurrences starting 08/30/20 until 08/30/2019 End: 01-27-2021 Tacrolimus Level Tacrolimus Level Lab Routine Once for 1 Occurrences starting 01/27/2021 until 01/27/2021 [facility] Work Phone: Comment on above: Once for 1 Occurrences starting 01/28/20 until 01/27/2021 End: 04-02-2021 Tacrolimus Level Tacrolimus Level Lab Routine Once for 1 Occurrences starting 04/02/2021 until 04/02/2021 [facility] Work Phone: Comment on above: Once for 1 Occurrences starting 04/02/20 until 04/02/2021 End: 05-19-2021 Tacrolimus Level Tacrolimus Level Lab Routine Once for 1 Occurrences starting 05/19/2021 until 05/19/2021 [facility] Work Phone: Comment on above: Once for 1 Occurrences starting 05/19/20 until 05/19/2021 End: 07-24-2021 Tacrolimus Level Tacrolimus Level Lab Routine Once for 1 Occurrences starting 07/24/2021 until 07/24/2021 [facility] Work Phone: Comment on above: Once for 1 Occurrences starting 07/24/20 until 07/24/2021 End: 08-09-2019 Tacrolimus Level Tacrolimus Level Lab Routine Once for 1 Occurrences starting 08/09/2019 until 08/09/2019 [place] Comment on above: Once for 1 Occurrences starting 08/09/20 until 08/09/2019 End: 09-28-2019 Tacrolimus Level Tacrolimus Level Lab Routine Once for 1 Occurrences starting 09/28/2019 until 09/28/2019 [facility] Work Phone: Comment on above: Once for 1 Occurrences starting 09/28/20 until 09/28/2019 End: 10-04-2019 Tacrolimus Level Tacrolimus Level Lab Routine Once for 1 Occurrences starting 10/04/2019 until 10/04/2019 [facility] Work Phone: Comment on above: Once for 1 Occurrences starting 10/04/20 until 10/04/2019 End: 10-11-2019 Tacrolimus Level Tacrolimus Level Lab Routine Once for 1 Occurrences starting 10/11/2019 until 10/11/2019 [facility] Work Phone: Comment on above: Once for 1 Occurrences starting 10/11/20 until 10/11/2019 End: 10-18-2019 Tacrolimus Level Tacrolimus Level Lab Routine Once for 1 Occurrences starting 10/18/2019 until 10/18/2019 [facility] Work Phone: Comment on above: Once for 1 Occurrences starting 10/18/19 until 10/18/2019 End: 10-23-2019 Tacrolimus Level Tacrolimus Level Lab Routine Once for 1 Occurrences starting 10/23/2019 until 10/23/2019 [facility] Work Phone: Comment on above: Once for 1 Occurrences starting 10/23/19 until 10/23/2019 End: 10-29-2019 Tacrolimus Level Tacrolimus Level Lab Routine Once for 1 Occurrences starting 10/29/2019 until 10/29/2019 [facility] Work Phone: Comment on above: Once for 1 Occurrences starting 10/29/19 until 10/29/2019 End: 03-02-2022 Tacrolimus Level Tacrolimus Level Lab Routine Once for 1 Occurrences starting 03/02/2022 until 03/02/2022 [facility] Work Phone: Comment on above: Once for 1 Occurrences starting 03/02/20 until 03/02/2022 Tacrolimus Level Tacrolimus Leve l Lab Routine 03/02/2022 10:44 AM EDT [facility] Work Phone: TACROLIMUS LEVEL, TR OUGH (PRE DRUG LEVEL) TACROLIMUS LEVEL, TROUGH (PRE DRUG LEVEL) Lab Routine Q24H until discontinued starting 05/19/2023, 2 completed [facility] Comment on above: Q24H until discontinued starting 023, 2 completed TACROLIMUS LEVEL, TR OUGH (PRE DRUG LEVEL) TACROLIMUS LEVEL, TROUGH (PRE DRUG LEVEL) Lab Routine 05/21/2023 8:56 AM EDT [facility] End: 05-16-2023 TOXICOLOGY DRUG SCREEN, SERUM [facility] Work Phone: Comment on above: One Time for 1 Occurrences starting 04/18 until 05/16/2023 End: 05-16-2023 Treponema pallidum Ab [Presence] in Serum VDRL CSF Fluids Urgent One Time for 1 Occurrences starting 05/16/2023 until 05/16/2023 [facility] Comment on above: One Time for 1 Occurrences starting 04/18 until 05/16/2023 End: 05-16-2023 [place] AB IGM, CSF [facility] Comment on above: Once (Lab) for 1 Occurrences starting until 05/16/2023 End: 05-16-2023 [place] VIRUS, IGG/IGM, CSF [place] VIRUS, IGG/IGM, CSF Fluids STAT One Time for 1 Occurrences starting 05/16/2023 until 05/16/2023 [facility] Comment on above: One Time for 1 Occurrences starting 04/18 until 05/16/2023 End: 08-03-2019 XR ABDOMEN (KUB) (SINGLE AP VIEW) XR ABDOMEN (KUB) (SINGLE AP VIEW) Imaging Routine Once for 1 Occurrences starting 08/03/2019 until 08/03/2019 [facility] [place] Comment on above: Once for 1 Occurrences starting 08/03/20 19 until 08/03/2019 XR ABDOMEN (KUB) (SI NGLE AP VIEW) [facility] [place] End: 12-19-2019 XR ABDOMEN (KUB) (SINGLE AP VIEW) XR ABDOMEN (KUB) (SINGLE AP VIEW) Imaging Routine Once for 1 Occurrences starting 12/19/2019 until 12/19/2019 [facility] [place] Comment on above: Once for 1 Occurrences starting 12/19/19 until 12/19/2019 End: 08-07-2019 XR HIP RIGHT (2-3 VIEWS) XR HIP RIGHT (2-3 VIEWS) Imaging Routine Once for 1 Occurrences starting 08/07/2019 until 08/07/2019 [facility] [place] Comment on above: Once for 1 Occurrences starting 08/07/20 19 until 08/07/2019 XR HIP RIGHT (2-3 VIEWS) XR HIP RIGHT (2-3 VIEWS) Imaging Routine 08/07/2019 3:17 PM EDT [facility] [place] Shoulder - right AP and Axillary and Y XR SHOULDER 3V AP/Y VIEW/AXILLARY RIGHT (AK) Radiology Routine Right shoulder pain, unspecified chronicity Ordered: 03/20/2024 [facility] Work Phone: Comment on above: Ordered: 03/20/2024 Immunizations Immunization Date Immunization Notes Care Provider [employer] 08-10-2023 COVID-19 MRNA (PFIZE R) 12+YR, 30 MCG/0.3 ML ([id number]) Akbar Davis DO Work Phone: [facility] 08-10-2023 influenza, injectabl e, quadrivalent, preservative free Akbar Davis DO Work Phone: [facility] 08-10-2023 RSV, RECOMBINANT, PROTEIN SUBUNIT RSVPREF, ADJUVANT RECONSTITUTED, 0.5 ML, PF (AREXVY) Akbar Davis DO Work Phone: [facility] 08-10-2023 influenza virus vacc ine, unspecified formulation Majo Hightower INTERIOR [employer]IC[employer] Work Phone: [facility] 05-21-2023 pneumococcal vaccine , unspecified formulation Gabriel Barragan /[facility] Work Phone: [facility] 08-13-2022 COVID-19 Vaccine, Alonzo Taylor, Bivalent Booster 0.5 mL Akbar Davis DO Work Phone: [facility] 07-05-2022 Influenza Vaccine, Quadrivalent, Adjuvanted Akbar Davis DO Work Phone: [facility] 07-05-2022 influenza virus vacc ine, unspecified formulation Christelle Espino MD Work Phone: [facility] 10-16-2021 COVID-19 vaccine, Alonzo Taylor, booster 0.25 ML [facility] 02-20-2021 tetanus toxoid, redu demario diphtheria toxoid, and acellular pertussis vaccine, adsorbed Ach 01 [facility] 02-06-2021 COVID-19 vaccine, Alonzo Taylor 0.5 ML [facility] 01-09-2021 COVID-19 vaccine, Alonzo Taylor 0.5 ML [facility] 07-23-2020 influenza virus vacc ine, whole virus [facility] 07-23-2020 influenza virus vacc ine, unspecified formulation [facility] 09-06-2019 influenza, injectabl e, quadrivalent, preservative free [facility] 06-28-2019 influenza, high dose seasonal, preservative-free [facility] 06-26-2019 influenza, high dose seasonal, preservative-free Akbar Rosenandreyck DO Work Phone: [facility] 06-26-2019 zoster vaccine recombinant Akbar Rosenheck DO Work Phone: [facility] 12-04-2018 hepatitis B vaccine, adult dosage Akbar Rosenheck DO Work Phone: [facility] 11-27-2018 hepatitis B vaccine, adult dosage Akbar Rosenheck DO Work Phone: [facility] 11-23-2018 pneumococcal polysaccharide vaccine, 23 valent Akbar Davidck DO Work Phone: [facility] 11-23-2018 zoster vaccine recombinant Akbar Rosenheck DO Work Phone: [facility] 07-20-2018 influenza virus vacc ine, whole virus [facility] 05-16-2018 tetanus toxoid, redu demario diphtheria toxoid, and acellular pertussis vaccine, adsorbed [facility] 05-09-2018 hepatitis A and hepatitis B vaccine [facility] 05-09-2018 pneumococcal conjuga te vaccine, 13 valent [facility] 08-04-2017 Influenza, injectabl e, Madin Maura Canine Kidney, preservative free, quadrivalent [facility] 08-04-2017 [id number] [facility] Work Phone: 06-09-2016 influenza virus vacc ine, whole virus Akbar Rosenheck DO Work Phone: [facility] 06-09-2016 pneumococcal conjuga te vaccine, 13 valent Akbar Rosenheck DO Work Phone: [facility] 06-09-2016 tetanus toxoid, redu demario diphtheria toxoid, and acellular pertussis vaccine, [facility] Payers Date Payer Category Payer Unknown 2023 Medicaid [id number] 2023 Medicare [id number] 2019 Medicaid [id number] 2019 Medicare [id number]. [id number] 2019 Unknown [facility] [facility] xxxxxxxxxxx 2019-Present [address] [place] [address] xxxxxxxxxxx [id number] 2019 Unknown [employer] [facility] [id number] 2019-Present [address] [place] [address] [id number]. [id number] 2019 Unknown [id number]. [id number] 1962 Unknown [id number] 2.16.840.1.806313.3.579.2. 1962 Unknown [id number] 2.16.840.1.628107.3.579.2. 1962 Unknown [id number] 2.16.840.1.237108.3.579.2. 1962 Unknown [id number] 2.16.840.1.543254.3.579.2. 1962 Unknown [id number] 2.16.840.1.915488.3.579.2.668 1962 Unknown [id number] 2.16.840.1.160206.3.579.2.668 1962 Unknown [id number] 2.16.840.1.802908.3.579.2.668 1962 Unknown [id number] 2.16.840.1.635941.3.579.2.668 1962 Unknown [id number] 2.16.840.1.312852.3.579.2.668 1962 Unknown [id number] 2.16.840.1.925284.3.579.2.668 1962 Unknown [id number] 2.16.840.1.694244.3.579.2.594 1962 Unknown [id number] 2.16.840.1.955031.3.579.2.594 1962 Unknown [id number] 2.16.840.1.326239.3.579.2.594 1962 Unknown [id number] 2.16.840.1.410398.3.579.2.594 1962 Unknown [id number] 2.16.840.1.750054.3.579.2.594 1962 Unknown [id number] 2.16.840.1.942268.3.579.2.594 1962 Unknown [id number] 2.16.840.1.255013.3.579.2.594 1962 Unknown [id number] 2.16.840.1.996517.3.579.2.594 1962 Unknown [id number] 2.16.840.1.779551.3.579.2.594 1962 Unknown [id number] 2.16.840.1.215679.3.579.2.594 1962 Unknown [id number] 2.16.840.1.054699.3.579.2.594 1962 Unknown [id number] 2.16.840.1.660318.3.579.2.594 Social History Date Type Detail Facility Tobacco smoking stat us [facility] Unknown if ever smoked [place], [place] Start: 1960 Sex Assigned At Not on file [place] Start: 08-13-2019 End: 05-13-2024 Tobacco smoking status NHIS Former smoker [place], [place] Start: 11-17-1985 End: 11-17-2015 History of tobacco use Current smoker [place] Start: 11-17-1985 End: 11-17-2015 History of tobacco use Cigarette Smoker [place] Start: 08-13-2019 End: 03-23-2024 Alcohol intake Never [facility] Work Phone: Start: 08-13-2019 History SDOH Alcohol Frequency 1 [place] Start: 08-14-2019 End: 03-23-2024 Alcohol intake Lifetime non-drinker (finding) [place] Start: 08-13-2019 End: 09-07-2019 Tobacco use and exposure Former user [place], [place] Start: 03-19-2022 End: 07-04-2023 Exposure to SARS-CoV-2 (event) Not sure [facility] Work Phone: Start: 06-28-2018 End: 03-23-2024 Cigarettes smoked current (pack per day) - Reported 1.5 [facility] Work Phone: Start: 06-28-2018 End: 08-14-2022 Tobacco use and exposure Smokeless tobacco non-user [facility] Start: 02-22-2022 End: 05-13-2024 Alcohol intake Current non-drinker of alcohol (finding) [facility] Start: 06-28-2018 History SDOH Alcohol Comment Past use with history of DUI [facility] Start: 10-29-2022 End: 05-15-2023 Exposure to SARS-CoV-2 (event) Unable to assess [facility] Start: 08-14-2022 End: 03-20-2024 Tobacco smoking status NHIS Never smoked tobacco [facility] Adolescent depressio n screening assessment 0 [facility] Work Phone: Start: 05-29-2018 Gender identity Identifies as male gender (finding) [facility] Start: 05-03-2024 Sexual orientation Heterosexual (fin ding) [facility] Medical Equipment Procedure Code Equipment Code Equipment Origin al Text Equipment Identifier Dates [id number] Start: 06-29-2021 1 Each by Unknow n route 2 times daily. [id number] Start: 06-19-2020 400 strips by Instructed route 2 times daily. [id number] Start: 04-29-2022 1 Each by Unknow n route 2 times daily. [id number] Start: 04-29-2022 400 strips in th e morning and 400 strips in the evening. [id number] Start: 04-29-2022 1 Each by Unknow n route 2 times daily. [id number] Start: 12-22-2022 400 strips by Instructed route 2 times daily. [id number] Start: 11-07-2023 1 Each by Unknow n route 2 times daily. [id number] Start: 11-07-2023 400 strips by Instructed route 2 times daily. [id number] Start: 06-08-2023 End: 11-07-2023 1 Each by Unknow n route 2 times daily. [id number] Start: 06-08-2023 End: 11-07-2023 Inject under the skin daily. Use as instructed [id number] Start: 03-27-2024 USE TWICE A DAY [id number] Start: 12-30-2023 Clinical Notes 09-01-2021 to 06-05-2024 Kermit Ivy MD - 06/05/2024 9:44 AM Lena Blas PTA - 05/15/2024 8:58 AM Stephany Arndt RN - 05/10/2024 2:00 PM Philomena Lopez MD - 05/10/2024 2:00 PM EDT Note Date & Type Note Facility 06-05-2024 Note HNO ID: [id number] Author: KERMIT IVY MD Service: ? Author Type: Physician Type: Progress Notes Filed: 06/05/2024 09:48 Note Text: PAIN EVALUATION 05/29/20241428 Pain Level: 6 Description: Aching;Burning Encounter Diagnosis ICD-10-CM 1. Right shoulder pain, unspecified chronicity M25.511 Nick Hernández follow-up on right shoulder pain. He feels the injection at the last visit helped him a great deal. He is back to most usual functions. He is doing daily stretching now that he has completed his physical therapy. He is pleased with his results from conservative management of his pain. Examined his right shoulder in the office today. No visible muscle atrophy. He has full active and passive range of motion in elevation and rotation without any discomfort. Full strength with rotator cuff testing in elevation and rotation. IMAGING: Reviewed the MRI report from his October imaging showing no tearing but concern for muscle atrophy. PLAN: Discussed his progress with conservative management. He did very well with injection and physical therapy. Continue to use arm for all activities as tolerated and return on as-needed basis. Kermit Ivy MD Shoulder AND Elbow Surgeon Department of Orthopaedic Surgery [facility] 06-05-2024 History of Present illness Narrative Images from the original note were not included. PAIN EVALUATION 05/29/20241428 Pain Level: 6 Description: Aching;Burning Encounter Diagnosis ICD-10-CM 1. Right shoulder pain, unspecified chronicity M25.511 Nick Hernández follow-up on right shoulder pain. He feels the injection at the last visit helped him a great deal. He is back to most usual functions. He is doing daily stretching now that he has completed his physical therapy. He is pleased with his results from conservative management of his pain. Examined his right shoulder in the office today. No visible muscle atrophy. He has full active and passive range of motion in elevation and rotation without any discomfort. Full strength with rotator cuff testing in elevation and rotation. IMAGING: Reviewed the MRI report from his October imaging showing no tearing but concern for muscle atrophy. PLAN: Discussed his progress with conservative management. He did very well with injection and physical therapy. Continue to use arm for all activities as tolerated and return on as-needed basis. Kermit Ivy MD Shoulder & Elbow Surgeon Department of Orthopaedic Surgery [facility] documented in this encounter [facility] 05-15-2024 Note HNO ID: [id number] Author: LENA TREJO PTA Service: ? Author Type: Sound Technician Supervisor Type: Progress Notes Filed: 05/15/2024 09:37 Note Text: Episode Visit Count: 6 Therapist That Will Accept/Oversee The Plan Of Care: Radha Start of Care Date: 03/29/24 Onset Date: 05/17/23 Patient Identified by Name and Date of : Yes REHABILITATION AND SPORTS THERAPY PHYSICAL THERAPY TREATMENT NOTE ASSESSMENT: Nick Hernández tolerated the session with expected muscle soreness. He demonstrated difficulty with liftimg weight over head and improvements in ROM and function . The patient will continue to benefit from ongoing skilled physical therapy to progress toward set goals. PLAN FOR NEXT VISIT.Continue with plan of care add supine horiz ABD and ball circles on wall SUBJECTIVE: Pt reports he has seen improvement in ROM and able to do more ADLs with less pain Pain:2-3/10 OBJECTIVE MEASURES WITH LEVEL OF FUNCTION: No objective measures taken today TREATMENT: Therapeutic Exercise: 1: *shoulder extension wand 2x10 2: *(R) posterior capsule stretch 5 x 10 secs 4: *shoulder extension green 2x10 5: supine cane flexion 2x10 6: supine chest press 2x10 7.5# bar 7: wall washes with lift off x20 8: scaption 1# 2x10 9: serratus punch 2# 2x10 10: supine deltoid press 2# 2x10 11: UBE x6 L3 for ROM and strengthening (subjective info was collected during this excs) Skilled Intervention: Skilled judgment was used in selection of appropriate interventions. Billing Therapeutic Exercise Treatment Minutes: 45 Skilled Treatment Time Minutes (timed and untimed codes): 45 Total Session Time (minutes): 45 Session Start Time : 899 Session Stop Time : 944 Lena Trejo PTA [facility] 05-15-2024 History of Present illness Narrative Episode Visit Count: 6 Therapist That Will Accept/Oversee The Plan Of Care: Radha Start of Care Date: 03/29/24 Onset Date: 05/17/23 Patient Identified by Name and Date of : Yes REHABILITATION AND SPORTS THERAPY PHYSICAL THERAPY TREATMENT NOTE ASSESSMENT: Nick Hernández tolerated the session with expected muscle soreness. He demonstrated difficulty with liftimg weight over head and improvements in ROM and function . The patient will continue to benefit from ongoing skilled physical therapy to progress toward set goals. PLAN FOR NEXT VISIT.Continue with plan of care add supine horiz ABD and ball circles on wall SUBJECTIVE: Pt reports he has seen improvement in ROM and able to do more ADLs with less pain Pain:2-3/10 OBJECTIVE MEASURES WITH LEVEL OF FUNCTION: No objective measures taken today TREATMENT: Therapeutic Exercise: 1: *shoulder extension wand 2x10 2: *(R) posterior capsule stretch 5 x 10 secs 4: *shoulder extension green 2x10 5: supine cane flexion 2x10 6: supine chest press 2x10 7.5# bar 7: wall washes with lift off x20 8: scaption 1# 2x10 9: serratus punch 2# 2x10 10: supine deltoid press 2# 2x10 11: UBE x6 L3 for ROM and strengthening (subjective info was collected during this excs) Skilled Intervention: Skilled judgment was used in selection of appropriate interventions. Billing Therapeutic Exercise Treatment Minutes: 45 Skilled Treatment Time Minutes (timed and untimed codes): 45 Total Session Time (minutes): 45 Session Start Time : 899 Session Stop Time : 944 Lena Trejo PTA documented in this encounter [facility] 05-10-2024 History of Present illness Narrative [facility] Progress Note: Transplant Info: DOT: 12/11/2018 (Lung) Nick Hernández is a 64 y.o. male has been doing the following: No breathing complaints Upcoming right eye cataract surgery Has been taking tacrolimus 1mg twice daily Compliant with immunosuppression medications Home Vital Signs: Oxygen: is not on home oxygen Wt Readings from Last 6 Encounters: 05/10/24 97.1 kg (214 lb) 11/07/23 90.4 kg (199 lb 4.7 oz) 11/07/23 103 kg (227 lb) 05/21/23 90.4 kg (199 lb 3.2 oz) 05/09/23 95.6 kg (210 lb 11.2 oz) 11/08/22 99.1 kg (218 lb 8 oz) Immunization History Administered Date(s) Administered [id number] COVID-19 monovalent vaccine (Moderna), 12yr+, 100mcg/0.5mL 01/09/2021, 02/06/2021 COVID-19 monovalent vaccine, mRNA, Moderna, 50 mcg/0.25 mL booster 10/16/[id number] COVID-19 bivalent vaccine (Moderna) 12yr+, 50mcg/0.5mL 08/13/2022 COVID-19 MRNA (PFIZER) 12+YR, 30 MCG/0.3 ML ([id number]) 08/10/2023 Hep A/Hep B Combined Vaccine (TWINRIX) 05/09/2018 Hepatitis B Vaccine, Adult (ENGERIX-B / RECOMBIVAX HB) 11/27/2018, 12/04/2018 Influenza Vaccine 06/09/2016, 07/20/2018, 07/23/2020 Influenza Vaccine, High-dose 06/26/2019 Influenza Vaccine, Quadrivalent MDCK PF 08/04/2017 Influenza Vaccine, Quadrivalent, Adjuvanted 07/05/2022 Influenza, injectable, quadrivalent, preservative free 09/06/2019, 08/10/2023 Pneumococcal Conjugate 13-valent vaccine 06/09/2016, 05/09/2018 Pneumococcal Polysac 23-Valent Vaccine 11/23/2018 RSV, RECOMBINANT, PROTEIN SUBUNIT RSVPREF, ADJUVANT RECONSTITUTED, 0.5 ML, PF (AREXVY) 08/10/2023 Tdap Vaccine 06/09/2016, 05/16/2018, 02/20/2021 Zoster Vaccine, Recomb 11/23/2018, 06/26/2019 Lab Results Component Value Date ABSPC No DSA detected 11/07/2023 ABSPC No DSA detected 11/08/2022 ABSPC No DSA detected 10/29/2021 ABSPC No DSA detected 02/26/2021 ABSPC No DSA detected 12/06/2019 ABSPC No DSA detected 10/04/2019 Lab Results Component Value Date [id number] 50 04/26/2024 [id number] 42 01/20/2024 Education/Interventions: Vaccination reconciliation completed Comfort BARROS, RN, PCCN Lung Supervisor Filter Assembly Images from the original note were not included. LUNG TRANSPLANT PROGRESS NOTE I had the pleasure of seeing Nick Hernández, for follow up at the [facility]. He is a 64 y.o. male who presents for follow-up after his BLTX for COPD on 12/11/18 (CMV D-/R-). Referring provider: Sanam Akers INTERVAL HISTORY Nick Hernández is well-known to our Lung Transplant service. He presents today for routine visit now nearly 5 1/2 years following his transplant procedure. He continues to do well and is without respiratory complaint including dyspnea. He remains independent of supplemental oxygen use. He recently had his daily tacrolimus dose adjusted due to a low serum level. His only complaint today is of some periodic left hip pain and occasional right ankle swelling. PLAN Reviewed drug levels 05/13/24 Drug Levels Lab Results Component Value Date TACROLIMUS 5.7 11/07/2023 TACROLIMUS 4.7 05/21/2023 TACROLIMUS 4.2 05/20/2023 Lab Results Component Value Date TACROTRGHMAN 2.5 04/26/2024 TACROTRGHMAN 2.6 03/26/2024 TACROTRGHMAN 8.6 03/02/2024 Lab Results Component Value Date SIROLIMUS <1.0 03/22/2023 SIROLIMUS <1.0 02/22/2023 SIROLIMUS <1.0 01/24/2023 No results found for: EVRLMSTRGH No results found for: EVERTRGHMANE No results found for: CYCLOSPORIN2 Immunosuppression Tacrolimus Goal Trough: 4-6 Mycophenolate: 1000 mg BID Prednisone: 5 mg QD. - Adjustments were not made today to above IS regimen: Obtain X-rays of both left hip and right ankle. Check DSA ASSESSMENT S/p Lung Transplant, Encounter for Aftercare Lung Transplant Immunosuppression Encounter therapeutic Drug Monitoring, High Risk Medications Diffuse CAD Essential hypertension. Chronic magnesium wasting. Osteoporosis - S/P right hip replacement. Type II DM ROS & PHYSICAL EXAM ROS All other systems reviewed and are negative for pertinent findings except as mentioned in the HPI/Interval History. BP 136/85 (BP Location: Right arm, BP Position: Sitting) Pulse 72 Temp 97.6 F (36.4 C) (Oral) Resp 16 Ht 1.803 m (5' 11 ) Wt 97.1 kg (214 lb) SpO2 97% Comment: RA BMI 29.85 kg/m Smoking Status Former Body mass index is 29.85 kg/m . Wt Readings from Last 3 Encounters: 05/10/24 97.1 kg (214 lb) 11/07/23 90.4 kg (199 lb 4.7 oz) 11/07/23 103 kg (227 lb) GENERAL: No apparent distress. HEENT: Pupils equal, round and reactive. Extraocular muscles intact. No scleral icterus. Oropharynx clear with moist mucus membranes. No erythema or exudate. NECK: Neck supple. No lymphadenopathy. No thyromegaly. No stridor. CARDIOVASCULAR: Regular rate and regular rhythm. No murmurs, rubs or gallops. Normal S1 and S2. No JVD. 2+ peripheral pulses throughout. PULMONARY: Clear to auscultation bilaterally. No wheezing, rhonchi or rales. GASTROINTESTINAL: Soft, non-tender, non-distended. Bowel sounds present. MUSCULOSKELETAL: No cyanosis, clubbing. No joint effusions or erythema. SKIN: Warm and dry. No jaundice or rash. No edema. NEUROLOGIC: A&O x 3. Moves all extremities. Gait normal. PSYCHIATRIC: Affect normal. Mood normal. CHRONIC PROBLEM LIST & PLAN Transplant Bilateral lung transplant (12/11/18) for COPD (Dr. Reyna) Allograft function: Stable today - Reference FEV1 = 2.88 L (reset due to weight gain 01/31/20); 80% = 2.30 Immunosuppression, high risk meds, therapeutic drug monitoring PLAN: - Tacrolimus: Goal trough: 4-6; - Mycophenolate: 1000mg bid - Prednisone: 5 mg daily - TITUS Prophylaxis: azithromycin Respiratory Ongoing mucus production PLAN: - Home microspirometry, Monthly in-lab spirometry - patient to consider Sleep study through his local PCP ID CMV D-/R- EBV D+/R+ Vaccinations Influenza: Jul 2021 per patient PCV13: 05/09/18 COVID-19: 01/09/21, 02/06/21 (Moderna); 10/16/21; 08/13/22 RSV, Influenza and COVID all current in 2022 PLAN: PPSV23 due Prophylaxis: - Bactrim 1 DS QMWF CV CAD, diffuse Systemic hypertension PLAN: - ASA, Norvasc Renal / 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 Reyna) - Induction with Basiliximab on Day 0 and 4 - PGD @ T24: 0 - PGD @ T48: 0 - PGD @ T72: 0 - Graft function - Reference FEV1 = 2.88 L (reset due to weight gain 01/31/20); 80% = 2.30 - Status - ABO O positive - CMV: Donor NEG Recipient NEG - EBV: Donor POS Recipient POS - Infection: - Donor cultures: S aureus, C albicans - Recipient cultures: S pseudointermedius - 12/12/18 BAL: Metapneumovirus - Ribavirin + prednisone taper - 12/26/18 BAL: Metapneumovirus - Ribavirin + prednisone taper - 03/13/19 BW: S epidermidis, S lugunensis - 04/10/19 BAL: E cloacae - 02/04/21 Thigh bx: Herpesvirus - valacyclovir x 7 days - Transbronchial biopsies: - 02/06/19: A0B0. BALT hyperplasia - 03/13/19: A0B1, aspirated vegetable material - 03/13/19 EBBx: granulation tissue/inflammatory polyp - 04/10/19 EBBx: exuberant granulation tissue with suppurative inflammation - 05/22/19: A0Bx - 07/17/19 EBBx: granulation tissue - 09/03/19 TBBx: A0Bx, focal stenosis (ISHLT stenosis c, c). 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); asymptomatic - Nephrolithiasis s/p lithotripsy - Airway issues: benign growth (granulation tissue), focal moderate BI stenosis (ISHLT stenosis c,c) - - Severe R hip arthritis s/p R COTY (03/06/20) - Lumbar compression fractures s/p vertebroplasties - H/o Bronchial granulation tissue requiring repeat excision; RBI stenosis (ISHLT c, c) - Erectile Dysfunction - 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 - 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) - Alloscreen Lab Results Component Value Date ABSPC No DSA detected 05/10/2024 ABSPC No DSA detected 11/07/2023 ABSPC No DSA detected 11/08/2022 ABSPC No DSA detected 10/29/2021 ABSPC No DSA detected 02/26/2021 ABSPC No DSA detected 12/06/2019 ABSPC No DSA detected 10/04/2019 ABSPC No DSA detected 07/05/2019 ABSPC No DSA detected 06/07/2019 ABSPC No DSA detected 05/07/2019 MEDICATIONS AND ALLERGIES Current Outpatient Medications Medication Sig Last Dose Start Date End Date Authorizing Provider acetaminophen 325 MG tablet Take 2 tablets by mouth every 6 hours as needed for mild or moderate pain. Taking 05/03/22 Nick Lopez MD Alcohol Swabs 70 % Pads 1 Each, Unknown, 2 TIMES DAILY Taking 11/07/23 Akbar Davis DO amLODIPine 5 MG tablet 5 mg, Oral, DAILY Patient taking differently: Take 2 tablets by mouth daily. Taking 06/08/23 Nick Lopez MD aspirin (RA Aspirin Adult Low Dose) 81 MG Chew Tab chewable tablet 81 mg, Oral, DAILY 05/10/24 Nick Lopez MD Azithromycin 250 MG tablet 250 mg, Oral, EVERY M, W & F Taking 11/07/23 11/06/28 Akbar Davis, DO Calcium Citrate-Vitamin D (RA Calcium Citrate Plus Vit D) 315-5 MG-MCG tablet 1 tablet, Oral, EVERY 12 HOURS Taking 11/07/23 Akbar Dvais DO Citalopram 10 MG tablet 10 mg, Oral, DAILY Taking 11/07/23 05/10/24 Akbar Davis, DO Ergocalciferol 1.25 MG (83828 UT) capsule 50,000 Units, Oral, WEEKLY Taking 11/07/23 Akbar Davis DO Gabapentin 400 MG capsule TAKE 1 CAPSULE BY MOUTH EVERY MORNING, TAKE 2 CAPSULES BY MOUTH EVERY AFTERNOON and TAKE 1 CAPSULE BY MOUTH EVERY EVENING Taking 11/07/23 05/10/24 Akbar Davis DO glucose blood test strips (MaestroDev Ultra) Strip strip 400 strips, Instructed, 2 TIMES DAILY Taking 11/07/23 Akbar Davis DO magnesium oxide 400 MG tablet 800 mg, Oral, EVERY 12 HOURS Taking 11/07/23 Akbar Davis DO Multiple Vitamin (multivitamin) tablet 1 tablet, Oral, DAILY Taking 11/07/23 Akbar Davis DO Mycophenolate mofetil (CELLCEPT) 250 MG capsule 1,000 mg, Oral, EVERY 12 HOURS Taking 07/18/23 Tomasz Troncoso MD [id number] Taking 12/30/23 Nick Lopez MD oxybutynin CR 10 MG Tab SR 24 HR tablet 10 mg, Oral, DAILY Taking 04/23/22 Historical Provider Pantoprazole [address] tablet DR 40 mg, Oral, 2 TIMES DAILY Taking 11/07/23 Akbar Davis, DO predniSONE 5 MG tablet 5 mg, Oral, DAILY Taking 11/07/23 Akbar Davis DO Rosuvastatin 10 MG tablet 10 mg, Oral, DAILY Taking 11/07/23 Akbar Davis DO SITagliptin (Januvia) 100 MG tablet 100 mg, Oral, DAILY Taking 11/07/23 Akbar Davis, DO Sulfamethoxazole-trimethoprim 800-160 MG per tablet 1 tablet, Oral, THREE TIMES WEEKLY Taking 11/07/23 11/06/28 Akbar Davis, Tacrolimus (PROGRAF) 0.5 MG capsule Take 2 capsules by mouth daily every morning AND 2 capsules every evening. Taking 05/01/24 Tomasz Troncoso MD Teriparatide, Recombinant, 620 MCG/2.48ML Solution Pen-injector 20 mcg, Subcutaneous, DAILY Taking 03/27/24 Historical Provider alendronate 70 MG tablet 70 mg, Oral, EVERY 7 DAYS Patient not taking: Reported on 05/10/2024 Not Taking 06/08/23 Nick Lopez MD hydrOXYzine HCl 25 MG tablet 25 mg, Oral, 3 TIMES DAILY NEEDED 05/21/23 11/07/23 Gabriel Barragan MD prednisoLONE acetate 1 % Suspension ophthalmic suspension 1 drop, 2 TIMES DAILY Patient not taking: Reported on 05/10/2024 Not Taking 05/03/23 Historical Provider Allergies: Allergies Allergen Reactions Breo Ellipta [Fluticasone Furoate-Vilanterol] Shortness of Breath Codeine Hives DATA REVIEW CBC Lab Results Component Value Date WBC 7.3 04/26/2024 HGB 13 04/26/2024 HCT 41.1 04/26/2024 PLATELET 228 04/26/2024 MCV 92.3 11/07/2023 Lab Results Component Value Date SODIUM 143 04/26/2024 POTASSIUM 4.3 04/26/2024 CHLORIDE 104 04/26/2024 CO2 27 04/26/2024 BUN 22 04/26/2024 CREATSERUM 1.06 04/26/2024 GLUCOSE 102 04/26/2024 Lab Results Component Value Date ALT 25 04/26/2024 AST 18 04/26/2024 GGT 44 04/26/2024 ALKPHOS 71 04/26/2024 BILITOTAL 0.4 12/20/2023 BILIDIRECT 0.1 04/26/2024 Immunology Lab Results Component Value Date ABORHDTYPE O POS 05/16/2023 Lab Results Component Value Date CMVPCR Not detected 04/26/2024 ABG Lab Results Component Value Date PH 7.467 (H) 12/23/2018 PO2 <24.0 (LL) 12/23/2018 PCO2 37.8 12/23/2018 PFTs PFT Results 08/30/2022 12:00 09/29/2022 12:00 11/08/2022 11/09/2022 15:59 11/29/2022 12:00 12/27/2022 12:00 01/24/2023 12:00 02/28/2023 12:00 03/28/2023 12:00 PFT Results PFT STANDARD PFT STANDARD Order Status: Canceled, Future Expected: 02/06/2023 Expires: 11/08/23 PFT STANDARD Order Status: Canceled, Future Expected: 03/08/2023 Expires: 11/08/23 PFT STANDARD Order Status: Canceled, Future Expected: 04/07/2023 Expires: 11/08/23 PFT STANDARD Order Status: Canceled, Future Expected: 12/08/2022 Expires: 11/08/23 PFT STANDARD Order Status: Canceled, Future Expected: 01/07/2023 Expires: 11/08/23 PFT STANDARD Order Status: Edited Result - FINAL PULMONARY FUNCTION TEST (SCANNED) PULMONARY FUNCTION TEST (SCANNED) Order Status: Final result FVC-Pre 3.9 Liters 3.9 Liters FVC 4.05 3.85 3.78 3.9 3.63 3.56 3.98 FVC % Pred, % Ref 79 75 77 79 71 70 78 FVC-%Pred-Pre 84 % 84 % FEV1-Pre 2.68 Liters 2.68 Liters FEV1 Pre Liters 2.5 2.33 2.36 2.41 2.32 2.22 2.46 FEV1 % Pred % Ref 65 60 62 64 60 57 64 FEV1-%Pred-Pre 76 % 76 % FEV1/FVC-Pre 69 % 69 % FEV1/FVC % Ref 62 60 62 62 64 62 62 HOP82-83-Bxc 1.73 L/sec 1.73 L/sec FEF 25-75% 1.07 % 1.03 % 1.08 % 1.04 % 1.16 % TLCPleth-Pre 5.32 Liters 5.32 Liters RVPleth-Pre 1.33 Liters 1.33 Liters DLCOunc-Pre 25.61 mL/mmHg/min 25.61 mL/mmHg/min DLCOunc-%Pred-Pre 91 % 91 % DLCOcor-%Pred-Pre 89 % 89 % 04/27/2023 17:18 05/09/2023 05/10/2023 22:15 05/31/2023 12:00 07/04/2023 12:00 08/01/2023 12:00 09/30/2023 12:00 11/04/2023 17:27 11/07/2023 PFT Results PFT STANDARD PFT STANDARD Order Status: , Future Expected: 05/27/2023 Expires: 04/27/24 PFT STANDARD Order Status: , Future Expected: 06/26/2023 Expires: 04/27/24 PFT STANDARD Order Status: , Future Expected: 07/26/2023 Expires: 04/27/24 PFT STANDARD Order Status: , Future Expected: 08/25/2023 Expires: 04/27/24 PFT STANDARD Order Status: , Future Expected: 09/24/2023 Expires: 04/27/24 PFT STANDARD Order Status: , Future Expected: 11/08/2022 Expires: 11/08/23 PFT STANDARD Order Status: Ordered, Standing Remainin1 PFT STANDARD Order Status: Final result PFT STANDARD Order Status: Ordered, Future Expected: 12/04/2023 Expires: 11/04/24 PFT STANDARD Order Status: Ordered, Future Expected: 01/03/2024 Expires: 11/04/24 PFT STANDARD Order Status: Ordered, Future Expected: 02/02/2024 Expires: 11/04/24 PFT STANDARD Order Status: Ordered, Future Expected: 03/03/2024 Expires: 11/04/24 PFT STANDARD Order Status: Ordered, Future Expected: 04/02/2024 Expires: 11/04/24 PFT STANDARD Order Status: , Future Expected: 10/28/2023 Expires: 04/27/24 PFT STANDARD Order Status: Ordered, Standing Remainin/1 PULMONARY FUNCTION TEST (SCANNED) FVC-Pre 3.68 Liters 3.73 Liters FVC 4.01 4 3.84 3.6 FVC % Pred, % Ref 83 81 92 74 FVC-%Pred-Pre 80 % 81 % FEV1-Pre 2.41 Liters 2.53 Liters FEV1 Pre Liters 2.42 2.38 2.37 2.29 FEV1 % Pred % Ref 63 63 61 59 FEV1-%Pred-Pre 69 % 73 % FEV1/FVC-Pre 65 % 68 % FEV1/FVC % Ref 60 59 62 79 YXT20-30-Fsr 1.31 L/sec 1.6 L/sec FEF 25-75% 1.04 % 1.14 % 1.06 % TLCPleth-Pre 5.54 Liters 5.73 Liters RVPleth-Pre 1.61 Liters 2 Liters DLCOunc-Pre 23.94 mL/mmHg/min 21.47 mL/mmHg/min DLCOunc-%Pred-Pre 86 % 77 % DLCOcor-%Pred-Pre 87 % 77 % 11/09/2023 10:22 11/29/2023 12:00 12/30/2023 12:00 02/29/2024 12:00 03/30/2024 12:00 05/02/2024 05/10/2024 PFT Results PFT STANDARD PFT STANDARD Order Status: Final result PFT STANDARD Order Status: Ordered, Future Expected: 11/02/2024 Expires: 05/02/25 PFT STANDARD Order Status: Preliminary result PULMONARY FUNCTION TEST (SCANNED) FVC-Pre 3.92 Liters FVC 3.79 3.8 3.85 3.96 FVC % Pred, % Ref 78 79 80 81 FVC-%Pred-Pre 95 % FEV1-Pre 2.53 Liters FEV1 Pre Liters 2.37 2.36 2.35 2.38 FEV1 % Pred % Ref 61 61 61 64 FEV1-%Pred-Pre 79 % FEV1/FVC-Pre 0.65 % FEV1/FVC % Ref 63 62 61 60 QKY88-44-Sst 1.44 L/sec FEF 25-75% 1.2 % 1.2 % 1.01 % TLCPleth-Pre RVPleth-Pre DLCOunc-Pre DLCOunc-%Pred-Pre DLCOcor-%Pred-Pre Details More values are hidden. Newest values shown. Go to activity for more data. 6MWT Date Distance Meters (feet) SpO2 [place] O2 Requirement Imaging/Radiological Studies I have personally reviewed and interpreted the radiographic data in [facility]. PULMONARY CXR - 05/09/23 IMPRESSION: Status post bilateral lung transplant. Chronic right lower lobe volume loss/atelectasis. No acute cardiopulmonary disease. CT Chest - 11/07/23 Pending official read - appears stable without acute cardiopulmonary disease 6MWT 11/07/23: 1286 feet (meters), lowest SpO2 97%, oxygen requirement: Room air 02/26/21: 1598 feet (487 meters), lowest SpO2 97%, oxygen requirement: Room air 02/22/19: 1591 feet (485 meters), lowest SpO2 99%, oxygen requirement: Room air 09/28/18 (pre-tx): 984 feet (300 meters), lowest SpO2 95%, oxygen requirement: 3 LPM CARDIOLOGY TTE - 11/07/23 Estimated RVSP would be 25 mmHg over the right atrial pressure; unable to estimate given poor IVC visualization. Atria appear normal in size. No hemodynamically significant valvular disease. No pericardial effusion. Aortic root measures mildly enlarged at 4.0 cm (1.9 cm/m2) Compared to the prior echo, aortic root measures larger. 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 Cecum: Normal appearance no mass lesions normal IIeocecal valve. 2. Ascendlng colon. Normal appearance no mass lesions. 3. Transverse colon: Normal appearance. 2 polyps were identified. One was removed with biopsy forceps completely. The other was removed removed with snare cautery technique. Both of them were brought back to the channel of the scope. 4. Descending colon: Small polyp was identlfled was removed with snare cautery technique and brought back to the channel the scope. 5. Sigmold colon: Normal appearance minlmal dlverticular disease seen. 6. Rectum: Normal appearance no mass lesIons Internal hemorrholds were Identifled. Scope was withdrawn digital rectal exam showed no masses within the anus and a normal prostate smooth and small. Patlent will need to have another colonoscopy In 3 years. MICROSCOPIC DIAGNOSIS Transverse colon polyps, biopsy: Fragments of tubular adenoma. Fragments of fecal material. PSA - 02/26/21 2.03 Nick Lopez MD Lung Tranpslant Division of Pulmonary, Critical Care & Sleep Medicine Department of Internal Medicine [facility] documented in this encounter [facility] 05-10-2024 History of Present illness Narrative [facility] Progress Note: Transplant Info: DOT: 12/11/2018 (Lung) Nick Hernández is a 64 y.o. male has been doing the following: No breathing complaints Upcoming right eye cataract surgery Has been taking tacrolimus 1mg twice daily Compliant with immunosuppression medications Home Vital Signs: Oxygen: is not on home oxygen Wt Readings from Last 6 Encounters: 05/10/24 97.1 kg (214 lb) 11/07/23 90.4 kg (199 lb 4.7 oz) 11/07/23 103 kg (227 lb) 05/21/23 90.4 kg (199 lb 3.2 oz) 05/09/23 95.6 kg (210 lb 11.2 oz) 11/08/22 99.1 kg (218 lb 8 oz) Immunization History Administered Date(s) Administered [id number] COVID-19 monovalent vaccine (Moderna), 12yr+, 100mcg/0.5mL 01/09/2021, 02/06/2021 COVID-19 monovalent vaccine, mRNA, Moderna, 50 mcg/0.25 mL booster 10/16/[id number] COVID-19 bivalent vaccine (Moderna) 12yr+, 50mcg/0.5mL 08/13/2022 COVID-19 MRNA (PFIZER) 12+YR, 30 MCG/0.3 ML ([id number]) 08/10/2023 Hep A/Hep B Combined Vaccine (TWINRIX) 05/09/2018 Hepatitis B Vaccine, Adult (ENGERIX-B / RECOMBIVAX HB) 11/27/2018, 12/04/2018 Influenza Vaccine 06/09/2016, 07/20/2018, 07/23/2020 Influenza Vaccine, High-dose 06/26/2019 Influenza Vaccine, Quadrivalent MDCK PF 08/04/2017 Influenza Vaccine, Quadrivalent, Adjuvanted 07/05/2022 Influenza, injectable, quadrivalent, preservative free 09/06/2019, 08/10/2023 Pneumococcal Conjugate 13-valent vaccine 06/09/2016, 05/09/2018 Pneumococcal Polysac 23-Valent Vaccine 11/23/2018 RSV, RECOMBINANT, PROTEIN SUBUNIT RSVPREF, ADJUVANT RECONSTITUTED, 0.5 ML, PF (AREXVY) 08/10/2023 Tdap Vaccine 06/09/2016, 05/16/2018, 02/20/2021 Zoster Vaccine, Recomb 11/23/2018, 06/26/2019 Lab Results Component Value Date ABSPC No DSA detected 11/07/2023 ABSPC No DSA detected 11/08/2022 ABSPC No DSA detected 10/29/2021 ABSPC No DSA detected 02/26/2021 ABSPC No DSA detected 12/06/2019 ABSPC No DSA detected 10/04/2019 Lab Results Component Value Date [id number] 50 04/26/2024 [id number] 42 01/20/2024 Education/Interventions: Vaccination reconciliation completed Comfort VALENTINN, RN, PCCN Lung Supervisor Filter Assembly Images from the original note were not included. LUNG TRANSPLANT PROGRESS NOTE I had the pleasure of seeing Nick Hernández, for follow up at the [facility]. He is a 64 y.o. male who presents for follow-up after his BLTX for COPD on 12/11/18 (CMV D-/R-). Referring provider: Sanam Akers INTERVAL HISTORY Nick Hernández is well-known to our Lung Transplant service. He presents today for routine visit now nearly 5 1/2 years following his transplant procedure. He continues to do well and is without respiratory complaint including dyspnea. He remains independent of supplemental oxygen use. He recently had his daily tacrolimus dose adjusted due to a low serum level. His only complaint today is of some periodic left hip pain and occasional right ankle swelling. PLAN Reviewed drug levels 05/13/24 Drug Levels Lab Results Component Value Date TACROLIMUS 5.7 11/07/2023 TACROLIMUS 4.7 05/21/2023 TACROLIMUS 4.2 05/20/2023 Lab Results Component Value Date TACROTRGHMAN 2.5 04/26/2024 TACROTRGHMAN 2.6 03/26/2024 TACROTRGHMAN 8.6 03/02/2024 Lab Results Component Value Date SIROLIMUS <1.0 03/22/2023 SIROLIMUS <1.0 02/22/2023 SIROLIMUS <1.0 01/24/2023 No results found for: PRITIRLMSTRGABI No results found for: RACHEL No results found for: CYCLOSPORIN2 Immunosuppression Tacrolimus Goal Trough: 4-6 Mycophenolate: 1000 mg BID Prednisone: 5 mg QD. - Adjustments were not made today to above IS regimen: Obtain X-rays of both left hip and right ankle. Check DSA ASSESSMENT S/p Lung Transplant, Encounter for Aftercare Lung Transplant Immunosuppression Encounter therapeutic Drug Monitoring, High Risk Medications Diffuse CAD Essential hypertension. Chronic magnesium wasting. Osteoporosis - S/P right hip replacement. Type II DM ROS & PHYSICAL EXAM ROS All other systems reviewed and are negative for pertinent findings except as mentioned in the HPI/Interval History. BP 136/85 (BP Location: Right arm, BP Position: Sitting) Pulse 72 Temp 97.6 F (36.4 C) (Oral) Resp 16 Ht 1.803 m (5' 11 ) Wt 97.1 kg (214 lb) SpO2 97% Comment: RA BMI 29.85 kg/m Smoking Status Former Body mass index is 29.85 kg/m . Wt Readings from Last 3 Encounters: 05/10/24 97.1 kg (214 lb) 11/07/23 90.4 kg (199 lb 4.7 oz) 11/07/23 103 kg (227 lb) GENERAL: No apparent distress. HEENT: Pupils equal, round and reactive. Extraocular muscles intact. No scleral icterus. Oropharynx clear with moist mucus membranes. No erythema or exudate. NECK: Neck supple. No lymphadenopathy. No thyromegaly. No stridor. CARDIOVASCULAR: Regular rate and regular rhythm. No murmurs, rubs or gallops. Normal S1 and S2. No JVD. 2+ peripheral pulses throughout. PULMONARY: Clear to auscultation bilaterally. No wheezing, rhonchi or rales. GASTROINTESTINAL: Soft, non-tender, non-distended. Bowel sounds present. MUSCULOSKELETAL: No cyanosis, clubbing. No joint effusions or erythema. SKIN: Warm and dry. No jaundice or rash. No edema. NEUROLOGIC: A&O x 3. Moves all extremities. Gait normal. PSYCHIATRIC: Affect normal. Mood normal. CHRONIC PROBLEM LIST & PLAN Transplant Bilateral lung transplant (12/11/18) for COPD (Dr. Reyna) Allograft function: Stable today - Reference FEV1 = 2.88 L (reset due to weight gain 01/31/20); 80% = 2.30 Immunosuppression, high risk meds, therapeutic drug monitoring PLAN: - Tacrolimus: Goal trough: 4-6; - Mycophenolate: 1000mg bid - Prednisone: 5 mg daily - TITUS Prophylaxis: azithromycin Respiratory Ongoing mucus production PLAN: - Home microspirometry, Monthly in-lab spirometry - patient to consider Sleep study through his local PCP ID CMV D-/R- EBV D+/R+ Vaccinations Influenza: Jul 2021 per patient PCV13: 05/09/18 COVID-19: 01/09/21, 02/06/21 (Moderna); 10/16/21; 08/13/22 RSV, Influenza and COVID all current in 2022 PLAN: PPSV23 due Prophylaxis: - Bactrim 1 DS QMWF CV CAD, diffuse Systemic hypertension PLAN: - ASA, Norvasc Renal / 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 Reyna) - Induction with Basiliximab on Day 0 and 4 - PGD @ T24: 0 - PGD @ T48: 0 - PGD @ T72: 0 - Graft function - Reference FEV1 = 2.88 L (reset due to weight gain 01/31/20); 80% = 2.30 - Status - ABO O positive - CMV: Donor NEG Recipient NEG - EBV: Donor POS Recipient POS - Infection: - Donor cultures: S aureus, C albicans - Recipient cultures: S pseudointermedius - 12/12/18 BAL: Metapneumovirus - Ribavirin + prednisone taper - 12/26/18 BAL: Metapneumovirus - Ribavirin + prednisone taper - 03/13/19 BW: S epidermidis, S lugunensis - 04/10/19 BAL: E cloacae - 02/04/21 Thigh bx: Herpesvirus - valacyclovir x 7 days - Transbronchial biopsies: - 02/06/19: A0B0. BALT hyperplasia - 03/13/19: A0B1, aspirated vegetable material - 03/13/19 EBBx: granulation tissue/inflammatory polyp - 04/10/19 EBBx: exuberant granulation tissue with suppurative inflammation - 05/22/19: A0Bx - 07/17/19 EBBx: granulation tissue - 09/03/19 TBBx: A0Bx, focal stenosis (ISHLT stenosis c, c). 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); asymptomatic - Nephrolithiasis s/p lithotripsy - Airway issues: benign growth (granulation tissue), focal moderate BI stenosis (ISHLT stenosis c,c) - - Severe R hip arthritis s/p R COTY (03/06/20) - Lumbar compression fractures s/p vertebroplasties - H/o Bronchial granulation tissue requiring repeat excision; RBI stenosis (ISHLT c, c) - Erectile Dysfunction - 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 - 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) - Alloscreen Lab Results Component Value Date ABSPC No DSA detected 05/10/2024 ABSPC No DSA detected 11/07/2023 ABSPC No DSA detected 11/08/2022 ABSPC No DSA detected 10/29/2021 ABSPC No DSA detected 02/26/2021 ABSPC No DSA detected 12/06/2019 ABSPC No DSA detected 10/04/2019 ABSPC No DSA detected 07/05/2019 ABSPC No DSA detected 06/07/2019 ABSPC No DSA detected 05/07/2019 MEDICATIONS AND ALLERGIES Current Outpatient Medications Medication Sig Last Dose Start Date End Date Authorizing Provider acetaminophen 325 MG tablet Take 2 tablets by mouth every 6 hours as needed for mild or moderate pain. Taking 05/03/22 Nick Lopez MD Alcohol Swabs 70 % Pads 1 Each, Unknown, 2 TIMES DAILY Taking 11/07/23 Akbar Davis DO amLODIPine 5 MG tablet 5 mg, Oral, DAILY Patient taking differently: Take 2 tablets by mouth daily. Taking 06/08/23 Nick Lopez MD aspirin (RA Aspirin Adult Low Dose) 81 MG Chew Tab chewable tablet 81 mg, Oral, DAILY 05/10/24 Nick Lopez MD Azithromycin 250 MG tablet 250 mg, Oral, EVERY M, W & F Taking 11/07/23 11/06/28 Akbar Davis DO Calcium Citrate-Vitamin D (RA Calcium Citrate Plus Vit D) 315-5 MG-MCG tablet 1 tablet, Oral, EVERY 12 HOURS Taking 11/07/23 Akbar Davis DO Citalopram 10 MG tablet 10 mg, Oral, DAILY Taking 11/07/23 05/10/24 Akbar Davis DO Ergocalciferol 1.25 MG (08606 UT) capsule 50,000 Units, Oral, WEEKLY Taking 11/07/23 Akbar Davis DO Gabapentin 400 MG capsule TAKE 1 CAPSULE BY MOUTH EVERY MORNING, TAKE 2 CAPSULES BY MOUTH EVERY AFTERNOON and TAKE 1 CAPSULE BY MOUTH EVERY EVENING Taking 11/07/23 05/10/24 Akbar Davis DO glucose blood test strips (OneTouch Ultra) Strip strip 400 strips, Instructed, 2 TIMES DAILY Taking 11/07/23 Akbar Davis DO magnesium oxide 400 MG tablet 800 mg, Oral, EVERY 12 HOURS Taking 11/07/23 Akbar Davis DO Multiple Vitamin (multivitamin) tablet 1 tablet, Oral, DAILY Taking 11/07/23 Akbar Davis DO Mycophenolate mofetil (CELLCEPT) 250 MG capsule 1,000 mg, Oral, EVERY 12 HOURS Taking 07/18/23 Tomasz Troncoso MD OneTouch Delica Plus [id number] Misc USE TWICE A DAY Taking 12/30/23 Nick Lopez MD oxybutynin CR 10 MG Tab SR 24 HR tablet 10 mg, Oral, DAILY Taking 04/23/22 Historical Provider Pantoprazole [address] tablet DR 40 mg, Oral, 2 TIMES DAILY Taking 11/07/23 Akbar Davis, predniSONE 5 MG tablet 5 mg, Oral, DAILY Taking 11/07/23 Akbar Davis DO Rosuvastatin 10 MG tablet 10 mg, Oral, DAILY Taking 11/07/23 Akbar Davis DO SITagliptin (Januvia) 100 MG tablet 100 mg, Oral, DAILY Taking 11/07/23 Akbar Davis DO Sulfamethoxazole-trimethoprim 800-160 MG per tablet 1 tablet, Oral, THREE TIMES WEEKLY Taking 11/07/23 11/06/28 Akbar Davis DO Tacrolimus (PROGRAF) 0.5 MG capsule Take 2 capsules by mouth daily every morning AND 2 capsules every evening. Taking 05/01/24 Tomasz Troncoso MD Teriparatide, Recombinant, 620 MCG/2.48ML Solution Pen-injector 20 mcg, Subcutaneous, DAILY Taking 03/27/24 Historical Provider alendronate 70 MG tablet 70 mg, Oral, EVERY 7 DAYS Patient not taking: Reported on 05/10/2024 Not Taking 06/08/23 Nick Lopez MD hydrOXYzine HCl 25 MG tablet 25 mg, Oral, 3 TIMES DAILY NEEDED 05/21/23 11/07/23 Gabriel Barragan MD prednisoLONE acetate 1 % Suspension ophthalmic suspension 1 drop, 2 TIMES DAILY Patient not taking: Reported on 05/10/2024 Not Taking 05/03/23 Historical Provider Allergies: Allergies Allergen Reactions Breo Ellipta [Fluticasone Furoate-Vilanterol] Shortness of Breath Codeine Hives DATA REVIEW CBC Lab Results Component Value Date WBC 7.3 04/26/2024 HGB 13 04/26/2024 HCT 41.1 04/26/2024 PLATELET 228 04/26/2024 MCV 92.3 11/07/2023 Lab Results Component Value Date SODIUM 143 04/26/2024 POTASSIUM 4.3 04/26/2024 CHLORIDE 104 04/26/2024 CO2 27 04/26/2024 BUN 22 04/26/2024 CREATSERUM 1.06 04/26/2024 GLUCOSE 102 04/26/2024 Lab Results Component Value Date ALT 25 04/26/2024 AST 18 04/26/2024 GGT 44 04/26/2024 ALKPHOS 71 04/26/2024 BILITOTAL 0.4 12/20/2023 BILIDIRECT 0.1 04/26/2024 Immunology Lab Results Component Value Date ABORHDTYPE O POS 05/16/2023 Lab Results Component Value Date CMVPCR Not detected 04/26/2024 ABG Lab Results Component Value Date PH 7.467 (H) 12/23/2018 PO2 <24.0 (LL) 12/23/2018 PCO2 37.8 12/23/2018 PFTs PFT Results 08/30/2022 12:00 09/29/2022 12:00 11/08/2022 11/09/2022 15:59 11/29/2022 12:00 12/27/2022 12:00 01/24/2023 12:00 02/28/2023 12:00 03/28/2023 12:00 PFT Results PFT STANDARD PFT STANDARD Order Status: Canceled, Future Expected: 02/06/2023 Expires: 11/08/23 PFT STANDARD Order Status: Canceled, Future Expected: 03/08/2023 Expires: 11/08/23 PFT STANDARD Order Status: Canceled, Future Expected: 04/07/2023 Expires: 11/08/23 PFT STANDARD Order Status: Canceled, Future Expected: 12/08/2022 Expires: 11/08/23 PFT STANDARD Order Status: Canceled, Future Expected: 01/07/2023 Expires: 11/08/23 PFT STANDARD Order Status: Edited Result - FINAL PULMONARY FUNCTION TEST (SCANNED) PULMONARY FUNCTION TEST (SCANNED) Order Status: Final result FVC-Pre 3.9 Liters 3.9 Liters FVC 4.05 3.85 3.78 3.9 3.63 3.56 3.98 FVC % Pred, % Ref 79 75 77 79 71 70 78 FVC-%Pred-Pre 84 % 84 % FEV1-Pre 2.68 Liters 2.68 Liters FEV1 Pre Liters 2.5 2.33 2.36 2.41 2.32 2.22 2.46 FEV1 % Pred % Ref 65 60 62 64 60 57 64 FEV1-%Pred-Pre 76 % 76 % FEV1/FVC-Pre 69 % 69 % FEV1/FVC % Ref 62 60 62 62 64 62 62 [id number] 1.73 L/sec 1.73 L/sec FEF 25-75% 1.07 % 1.03 % 1.08 % 1.04 % 1.16 % TLCPleth-Pre 5.32 Liters 5.32 Liters RVPleth-Pre 1.33 Liters 1.33 Liters DLCOunc-Pre 25.61 mL/mmHg/min 25.61 mL/mmHg/min DLCOunc-%Pred-Pre 91 % 91 % DLCOcor-%Pred-Pre 89 % 89 % 04/27/2023 17:18 05/09/2023 05/10/2023 22:15 05/31/2023 12:00 07/04/2023 12:00 08/01/2023 12:00 09/30/2023 12:00 11/04/2023 17:27 11/07/2023 PFT Results PFT STANDARD PFT STANDARD Order Status: , Future Expected: 05/27/2023 Expires: 04/27/24 PFT STANDARD Order Status: , Future Expected: 06/26/2023 Expires: 04/27/24 PFT STANDARD Order Status: , Future Expected: 07/26/2023 Expires: 04/27/24 PFT STANDARD Order Status: , Future Expected: 08/25/2023 Expires: 04/27/24 PFT STANDARD Order Status: , Future Expected: 09/24/2023 Expires: 04/27/24 PFT STANDARD Order Status: , Future Expected: 11/08/2022 Expires: 11/08/23 PFT STANDARD Order Status: Ordered, Standing Remainin/1 PFT STANDARD Order Status: Final result PFT STANDARD Order Status: Ordered, Future Expected: 12/04/2023 Expires: 11/04/24 PFT STANDARD Order Status: Ordered, Future Expected: 01/03/2024 Expires: 11/04/24 PFT STANDARD Order Status: Ordered, Future Expected: 02/02/2024 Expires: 11/04/24 PFT STANDARD Order Status: Ordered, Future Expected: 03/03/2024 Expires: 11/04/24 PFT STANDARD Order Status: Ordered, Future Expected: 04/02/2024 Expires: 11/04/24 PFT STANDARD Order Status: , Future Expected: 10/28/2023 Expires: 04/27/24 PFT STANDARD Order Status: Ordered, Standing Remainin/1 PULMONARY FUNCTION TEST (SCANNED) FVC-Pre 3.68 Liters 3.73 Liters FVC 4.01 4 3.84 3.6 FVC % Pred, % Ref 83 81 92 74 FVC-%Pred-Pre 80 % 81 % FEV1-Pre 2.41 Liters 2.53 Liters FEV1 Pre Liters 2.42 2.38 2.37 2.29 FEV1 % Pred % Ref 63 63 61 59 FEV1-%Pred-Pre 69 % 73 % FEV1/FVC-Pre 65 % 68 % FEV1/FVC % Ref 60 59 62 79 [id number] 1.31 L/sec 1.6 L/sec FEF 25-75% 1.04 % 1.14 % 1.06 % TLCPleth-Pre 5.54 Liters 5.73 Liters RVPleth-Pre 1.61 Liters 2 Liters DLCOunc-Pre 23.94 mL/mmHg/min 21.47 mL/mmHg/min DLCOunc-%Pred-Pre 86 % 77 % DLCOcor-%Pred-Pre 87 % 77 % 11/09/2023 10:22 11/29/2023 12:00 12/30/2023 12:00 02/29/2024 12:00 03/30/2024 12:00 05/02/2024 05/10/2024 PFT Results PFT STANDARD PFT STANDARD Order Status: Final result PFT STANDARD Order Status: Ordered, Future Expected: 11/02/2024 Expires: 05/02/25 PFT STANDARD Order Status: Preliminary result PULMONARY FUNCTION TEST (SCANNED) FVC-Pre 3.92 Liters FVC 3.79 3.8 3.85 3.96 FVC % Pred, % Ref 78 79 80 81 FVC-%Pred-Pre 95 % FEV1-Pre 2.53 Liters FEV1 Pre Liters 2.37 2.36 2.35 2.38 FEV1 % Pred % Ref 61 61 61 64 FEV1-%Pred-Pre 79 % FEV1/FVC-Pre 0.65 % FEV1/FVC % Ref 63 62 61 60 [id number] 1.44 L/sec FEF 25-75% 1.2 % 1.2 % 1.01 % TLCPleth-Pre RVPleth-Pre DLCOunc-Pre DLCOunc-%Pred-Pre DLCOcor-%Pred-Pre Details More values are hidden. Newest values shown. Go to activity for more data. 6MWT Date Distance Meters (feet) SpO2 [place] O2 Requirement Imaging/Radiological Studies I have personally reviewed and interpreted the radiographic data in [facility]. PULMONARY CXR - 05/09/23 IMPRESSION: Status post bilateral lung transplant. Chronic right lower lobe volume loss/atelectasis. No acute cardiopulmonary disease. CT Chest - 11/07/23 Pending official read - appears stable without acute cardiopulmonary disease 6MWT 11/07/23: 1286 feet (meters), lowest SpO2 97%, oxygen requirement: Room air 02/26/21: 1598 feet (487 meters), lowest SpO2 97%, oxygen requirement: Room air 02/22/19: 1591 feet (485 meters), lowest SpO2 99%, oxygen requirement: Room air 09/28/18 (pre-tx): 984 feet (300 meters), lowest SpO2 95%, oxygen requirement: 3 LPM CARDIOLOGY TTE - 11/07/23 Estimated RVSP would be 25 mmHg over the right atrial pressure; unable to estimate given poor IVC visualization. Atria appear normal in size. No hemodynamically significant valvular disease. No pericardial effusion. Aortic root measures mildly enlarged at 4.0 cm (1.9 cm/m2) Compared to the prior echo, aortic root measures larger. 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 Cecum: Normal appearance no mass lesions normal IIeocecal valve. 2. Ascendlng colon. Normal appearance no mass lesions. 3. Transverse colon: Normal appearance. 2 polyps were identified. One was removed with biopsy forceps completely. The other was removed removed with snare cautery technique. Both of them were brought back to the channel of the scope. 4. Descending colon: Small polyp was identlfled was removed with snare cautery technique and brought back to the channel the scope. 5. Sigmold colon: Normal appearance minlmal dlverticular disease seen. 6. Rectum: Normal appearance no mass lesIons Internal hemorrholds were Identifled. Scope was withdrawn digital rectal exam showed no masses within the anus and a normal prostate smooth and small. Panchito will need to have another colonoscopy In 3 years. MICROSCOPIC DIAGNOSIS Transverse colon polyps, biopsy: Fragments of tubular adenoma. Fragments of fecal material. PSA - 02/26/21 2.03 Nick Lopez MD [facility] Division of Pulmonary, Critical Care & Sleep Medicine Department of Internal Medicine [facility] documented in this encounter [facility] 05-10-2024 Instructions Comfort Arndt RN - 05/10/2024 2:00 PM EDT You were seen today in [facility] for a Post-transplant visit. Medication changes today We made no changes to your medications today. 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 Author Type: Physical Therapist Type: Progress Notes Filed: 05/07/2024 09:23 Note Text: Episode Visit Count: 5 Therapist That Will Accept/Oversee The Plan Of Care: Radha Start of Care Date: 03/29/24 Onset Date: 05/17/23 Patient Identified by Name and Date of : Yes REHABILITATION AND SPORTS THERAPY PHYSICAL THERAPY TREATMENT NOTE ASSESSMENT: Nick Hernández tolerated the session with no issues. He demonstrated difficulty with controlled speed with lowering on the serratus punch exercises. The patient will continue to benefit from ongoing skilled physical therapy to progress toward set goals. PLAN FOR NEXT VISIT: add supine horiz ABD and ball circles on wall SUBJECTIVE: Reports that he feels the shoulder is improving. Moving it better with less pain. Pain: OBJECTIVE MEASURES WITH LEVEL OF FUNCTION: UE and Cervical Strength R Shoulder Flexion: 4+/5 R Shoulder Abduction (C5): 4+/5 R Shoulder Internal Rotation: 4+/5 R Shoulder External Rotation: 4-/5 TREATMENT: Therapeutic Exercise: 1: *shoulder extension wand 2x10 2: *(R) posterior capsule stretch 5 x 10 secs 4: *shoulder extension green 2x10 5: supine cane flexion 2x10 6: supine chest press 2x10 7.5# bar 7: wall washes with lift off x20 9: serratus punch 2# 2x10 10: supine deltoid press 2# 2x10 11: UBE x6 L3 for ROM and strengthening (subjective info was collected during this excs) Skilled Intervention: Patient was educated in proper exercise technique and purpose for exercises. Skilled judgment was used in selection of appropriate interventions. Correct performance of therapeutic exercises was facilitated with verbal and tactile cuing. Billing Total Session Time (minutes): 40 Session Start Time : 841 Session Stop Time : 921 Ar Garcia, PT [facility] 05-07-2024 History of Present illness Narrative Episode Visit Count: 5 Therapist That Will Accept/Oversee The Plan Of Care: Radha Start of Care Date: 03/29/24 Onset Date: 05/17/23 Patient Identified by Name and Date of : Yes REHABILITATION AND SPORTS THERAPY PHYSICAL THERAPY TREATMENT NOTE ASSESSMENT: Nick Hernández tolerated the session with no issues. He demonstrated difficulty with controlled speed with lowering on the serratus punch exercises. The patient will continue to benefit from ongoing skilled physical therapy to progress toward set goals. PLAN FOR NEXT VISIT: add supine horiz ABD and ball circles on wall SUBJECTIVE: Reports that he feels the shoulder is improving. Moving it better with less pain. Pain: OBJECTIVE MEASURES WITH LEVEL OF FUNCTION: UE and Cervical Strength R Shoulder Flexion: 4+/5 R Shoulder Abduction (C5): 4+/5 R Shoulder Internal Rotation: 4+/5 R Shoulder External Rotation: 4-/5 TREATMENT: Therapeutic Exercise: 1: *shoulder extension wand 2x10 2: *(R) posterior capsule stretch 5 x 10 secs 4: *shoulder extension green 2x10 5: supine cane flexion 2x10 6: supine chest press 2x10 7.5# bar 7: wall washes with lift off x20 9: serratus punch 2# 2x10 10: supine deltoid press 2# 2x10 11: UBE x6 L3 for ROM and strengthening (subjective info was collected during this excs) Skilled Intervention: Patient was educated in proper exercise technique and purpose for exercises. Skilled judgment was used in selection of appropriate interventions. Correct performance of therapeutic exercises was facilitated with verbal and tactile cuing. Billing Total Session Time (minutes): 40 Session Start Time : 841 Session Stop Time : 921 Ar Garcia PT documented in this encounter [facility] 05-02-2024 Note HNO ID: [id number] Author: LENA TREJO PTA Service: ? Author Type: Sound Technician Supervisor Type: Progress Notes Filed: 05/02/2024 18:23 Note Text: Episode Visit Count: 4 Therapist That Will Accept/Oversee The Plan Of Care: Radha Start of Care Date: 03/29/24 Onset Date: 05/17/23 Patient Identified by Name and Date of : Yes REHABILITATION AND SPORTS THERAPY PHYSICAL THERAPY TREATMENT NOTE ASSESSMENT: Nick Hernández tolerated the session with no issues. He demonstrated difficulty with r shoulder pain and improvements in ROM . The patient will continue to benefit from ongoing skilled physical therapy to progress toward set goals. PLAN FOR NEXT VISIT: Continue with plan of care review HEP, progress with RTC/posterior shoulder girdle strengthening SUBJECTIVE: Pt reports he has seen improvement in ROM and less pain since doing PT Pain: 3-4/10 OBJECTIVE MEASURES WITH LEVEL OF FUNCTION: No objective measures taken today TREATMENT: Therapeutic Exercise: 1: *shoulder extension wand 2x10 2: *(R) posterior capsule stretch 5 x 10 secs 3: *no money orange 2x10 4: *shoulder extension pink 2x10 5: supine cane flexion 2x10 6: supine chest press 2x10 7: wall washes x20 8: supine IR/ER cane x20 9: serratus punch 2# 2xq0 10: supine deltoid press 2# 2x10 11: UBE x6 L3 for ROM and strengthening (subjective info was collected during this excs) Skilled Intervention: Skilled judgment was used in selection of appropriate interventions. Billing Therapeutic Exercise Treatment Minutes: 45 Skilled Treatment Time Minutes (timed and untimed codes): 45 Total Session Time (minutes): 45 Session Start Time : 1739 Session Stop Time : 1824 Lena Trejo PTA [facility] 05-02-2024 History of Present illness Narrative Episode Visit Count: 4 Therapist That Will Accept/Oversee The Plan Of Care: Radha Start of Care Date: 03/29/24 Onset Date: 05/17/23 Patient Identified by Name and Date of : Yes REHABILITATION AND SPORTS THERAPY PHYSICAL THERAPY TREATMENT NOTE ASSESSMENT: Nick Hernández tolerated the session with no issues. He demonstrated difficulty with r shoulder pain and improvements in ROM . The patient will continue to benefit from ongoing skilled physical therapy to progress toward set goals. PLAN FOR NEXT VISIT: Continue with plan of care review HEP, progress with RTC/posterior shoulder girdle strengthening SUBJECTIVE: Pt reports he has seen improvement in ROM and less pain since doing PT Pain: 3-4/10 OBJECTIVE MEASURES WITH LEVEL OF FUNCTION: No objective measures taken today TREATMENT: Therapeutic Exercise: 1: *shoulder extension wand 2x10 2: *(R) posterior capsule stretch 5 x 10 secs 3: *no money orange 2x10 4: *shoulder extension pink 2x10 5: supine cane flexion 2x10 6: supine chest press 2x10 7: wall washes x20 8: supine IR/ER cane x20 9: serratus punch 2# 2xq0 10: supine deltoid press 2# 2x10 11: UBE x6 L3 for ROM and strengthening (subjective info was collected during this excs) Skilled Intervention: Skilled judgment was used in selection of appropriate interventions. Billing Therapeutic Exercise Treatment Minutes: 45 Skilled Treatment Time Minutes (timed and untimed codes): 45 Total Session Time (minutes): 45 Session Start Time : 1739 Session Stop Time : 1824 Lena Trejo PTA documented in this encounter [facility] 04-24-2024 Note HNO ID: [id number] Author: LENA TREJO PTA Service: ? Author Type: Sound Technician Supervisor Type: Progress Notes Filed: 04/24/2024 10:18 Note Text: Episode Visit Count: 3 Therapist That Will Accept/Oversee The Plan Of Care: Radha Start of Care Date: 03/29/24 Onset Date: 05/17/23 Patient Identified by Name and Date of : Yes REHABILITATION AND SPORTS THERAPY PHYSICAL THERAPY TREATMENT NOTE ASSESSMENT: Nick Hernández tolerated the session with expected muscle soreness. He demonstrated difficulty with reaching and OH motions. The patient will continue to benefit from ongoing skilled physical therapy to progress toward set goals. PLAN FOR NEXT VISIT: Continue with plan of care review HEP, progress with RTC/posterior shoulder girdle strengthening SUBJECTIVE: Pt reports still getting burning in [place] after shoulder use Pain: 6/10 OBJECTIVE MEASURES WITH LEVEL OF FUNCTION: No objective measures taken today TREATMENT: Therapeutic Exercise: 1: *shoulder extension wand 2x10 2: *(R) posterior capsule stretch 5 x 10 secs 3: *no money orange 2x10 4: *shoulder extension pink 2x10 5: supine cane flexion 2x10 6: supine chest press 2x10 7: wall washes x20 8: supine IR/ER cane x20 9: serratus punch 2# 2xq0 Skilled Intervention: Patient was educated in proper exercise technique and purpose for exercises. Manual Therapy: 1: PROM R shoulder Skilled Intervention: Manual skills to improve joint mobility, ROM, and decrease pain. Utilized anatomy knowledge of the therapist, and assessment of patient's response to intervention. Billing Therapeutic Exercise Treatment Minutes: 45 Skilled Treatment Time Minutes (timed and untimed codes): 45 Total Session Time (minutes): 45 Session Start Time : 0900 Session Stop Time : [address] [facility] 04-24-2024 History of Present illness Narrative Episode Visit Count: 3 Therapist That Will Accept/Oversee The Plan Of Care: Radha Start of Care Date: 03/29/24 Onset Date: 05/17/23 Patient Identified by Name and Date of : Yes REHABILITATION AND SPORTS THERAPY PHYSICAL THERAPY TREATMENT NOTE ASSESSMENT: Nick Hernández tolerated the session with expected muscle soreness. He demonstrated difficulty with reaching and OH motions. The patient will continue to benefit from ongoing skilled physical therapy to progress toward set goals. PLAN FOR NEXT VISIT: Continue with plan of care review HEP, progress with RTC/posterior shoulder girdle strengthening SUBJECTIVE: Pt reports still getting burning in [place] after shoulder use Pain: 6/10 OBJECTIVE MEASURES WITH LEVEL OF FUNCTION: No objective measures taken today TREATMENT: Therapeutic Exercise: 1: *shoulder extension wand 2x10 2: *(R) posterior capsule stretch 5 x 10 secs 3: *no money orange 2x10 4: *shoulder extension pink 2x10 5: supine cane flexion 2x10 6: supine chest press 2x10 7: wall washes x20 8: supine IR/ER cane x20 9: serratus punch 2# 2xq0 Skilled Intervention: Patient was educated in proper exercise technique and purpose for exercises. Manual Therapy: 1: PROM R shoulder Skilled Intervention: Manual skills to improve joint mobility, ROM, and decrease pain. Utilized anatomy knowledge of the therapist, and assessment of patient's response to intervention. Billing Therapeutic Exercise Treatment Minutes: 45 Skilled Treatment Time Minutes (timed and untimed codes): 45 Total Session Time (minutes): 45 Session Start Time : 899 Session Stop Time : 944 Lena Trejo PTA documented in this encounter [facility] 04-23-2024 Telephone encounter Note Summary: LVM to reschedule 05/01 appt. LVM advising PT that we needed to reschedule his 05/01 appt. Advised for PT to contact [phone] to reschedule. [facility] 04-23-2024 Miscellaneous Notes Summary: LVM to reschedule 05/01 appt. LVM advising PT that we needed to reschedule his 05/01 appt. Advised for PT to contact [phone] to reschedule. documented in this encounter [facility] 04-12-2024 Note HNO ID: [id number] Author: LENA TREJO PTA Service: ? Author Type: Sound Technician Supervisor Type: Progress Notes Filed: 04/12/2024 10:11 Note Text: Episode Visit Count: 2 Therapist That Will Accept/Oversee The Plan Of Care: Radha Start of Care Date: 03/29/24 Onset Date: 05/17/23 Patient Identified by Name and Date of : Yes REHABILITATION AND SPORTS THERAPY PHYSICAL THERAPY TREATMENT NOTE ASSESSMENT: Nick Hernández tolerated the session with expected muscle soreness. He demonstrated difficulty with overhead and reaching up motions . The patient will continue to benefit from ongoing skilled physical therapy to progress toward set goals. PLAN FOR NEXT VISIT: Continue with plan of care review HEP, progress with RTC/posterior shoulder girdle strengthening SUBJECTIVE: Pt reports he has problem with reaching and overhead activities Pain: 4-6/10 OBJECTIVE MEASURES WITH LEVEL OF FUNCTION: .No objective measures taken today TREATMENT: Therapeutic Exercise: 1: *shoulder extension wand 2x10 2: *(R) posterior capsule stretch 5 x 10 secs 3: *no money orange 2x10 4: *shoulder extension pink 2x10 5: supine cane flexion 2x10 6: supine chest press 2x10 7: wall washes x20 Skilled Intervention: Skilled judgment was used in selection of appropriate interventions. Billing Skilled Treatment Time Minutes (timed and untimed codes): 40 Total Session Time (minutes): 45 Session Start Time : 899 Session Stop Time : [address] [facility] 04-12-2024 History of Present illness Narrative Episode Visit Count: 2 Therapist That Will Accept/Oversee The Plan Of Care: Radha Start of Care Date: 03/29/24 Onset Date: 05/17/23 Patient Identified by Name and Date of : Yes REHABILITATION AND SPORTS THERAPY PHYSICAL THERAPY TREATMENT NOTE ASSESSMENT: Nick Hernández tolerated the session with expected muscle soreness. He demonstrated difficulty with overhead and reaching up motions . The patient will continue to benefit from ongoing skilled physical therapy to progress toward set goals. PLAN FOR NEXT VISIT: Continue with plan of care review HEP, progress with RTC/posterior shoulder girdle strengthening SUBJECTIVE: Pt reports he has problem with reaching and overhead activities Pain: 4-6/10 OBJECTIVE MEASURES WITH LEVEL OF FUNCTION: .No objective measures taken today TREATMENT: Therapeutic Exercise: 1: *shoulder extension wand 2x10 2: *(R) posterior capsule stretch 5 x 10 secs 3: *no money orange 2x10 4: *shoulder extension pink 2x10 5: supine cane flexion 2x10 6: supine chest press 2x10 7: wall washes x20 Skilled Intervention: Skilled judgment was used in selection of appropriate interventions. Billing Skilled Treatment Time Minutes (timed and untimed codes): 40 Total Session Time (minutes): 45 Session Start Time : 899 Session Stop Time : 944 Lena Trejo PTA documented in this encounter [facility] 04-04-2024 Telephone encounter Note Name of caller: Nick Contact phone number: [phone] Relationship to Patient: [facility] Chief Complaint/Reason for Call: Patient reported that he was returning a call from [facility] regarding his medication. Patient stated that he took his last Fosemax pill on 03/25/24 and started his Forteo prescription on 04/02/24. Best time of day caller can be reached: Any Patient advised that office/PCP has 24-48 business hours to return their call: No [facility] 04-04-2024 Miscellaneous Notes Name of caller: Nick Contact phone number: [phone] Relationship to Patient: patient Provider: [place] Practice: [facility] Chief Complaint/Reason for Call: Patient reported that he was returning a call from [facility] regarding his medication. Patient stated that he took his last Fosemax pill on 03/25/24 and started his Forteo prescription on 04/02/24. Best time of day caller can be reached: Any Patient advised that office/PCP has 24-48 business hours to return their call: No documented in this encounter [facility] 03-29-2024 History of Present illness Narrative Program_ID:[id number] Access Code: [email or web address] URL: [email or web address] Date: 03-29-2024 Prepared By: Ar Garcia Program Notes Exercises - Standing Shoulder Extension with Dowel - 2 x daily - 7 x weekly - 2 sets - 10 reps - Shoulder extension with resistance - Neutral - 2 x daily - 7 x weekly - 2 sets - 10 reps - Shoulder External Rotation and Scapular Retraction with Resistance - 2 x daily - 7 x weekly - 2 sets - 10 reps - Standing Shoulder Posterior Capsule Stretch - 2 x daily - 7 x weekly - 1 sets - 5 reps Images from the original note were not included. Episode Visit Count: 1 Therapist That Will Accept/Oversee The Plan Of Care: Radha Start of Care Date: 03/29/24 Onset Date: 05/17/23 Patient Identified by Name and Date of : Yes REHABILITATION AND SPORTS THERAPY PHYSICAL THERAPY EVALUATION PLAN OF CARE: Assessment: Nick Hernández presents with chief complaint of (R) shoulder pain that interferes with reaching overhead, use hand with arm at shoulder level, driving, sleeping, recreational activities, physical activities, lifting, heavy exertion, carrying . He presents with impairments in ADL's, overall function, posture, range of motion, and strength. PROMIS (Patient-Reported Outcomes Measurement Information System) scores were reviewed and identified as within normal limits. Prognosis for therapy is Good due to: current objective clinical presentation . He will benefit from skilled therapy services to meet the goals established for this plan of care as noted below. Goals for Episode of Care: created on 03/29/24 through 05/28/24 Perform OH reaching activities without pain or difficulty Williams in home exercise program. Perform ADL's with decreased report of symptoms/pain in 4-6 weeks. Increased strength of (R) shoulder by one full MMT grade or better in ER musculature Patient Goals: decreased pain with activities Planned Interventions, Frequency, and Duration: Current Frequency: 1x/week Duration: 6 weeks Total Number of Visits Planned: 6 Planned Treatment Interventions: Therapeutic exercise (20973), Neuromuscular re-education (11607), Manual therapy (15638), Therapeutic activities (91863), Self-longterm management (71368) PLAN FOR NEXT VISIT: review HEP, progress with RTC/posterior shoulder girdle strengthening Patient demonstrates good understanding of plan of care and treatment. The above goals and plan of care were discussed and agreed upon by patient/family. SUBJECTIVE: (R) shoulder pain. Most with OH reaching and driving. Feels tingling through the arm, down to the elbow as well. Pain at night if he rolls on to the shoulder. Had injection, but didn't seem to make any difference. Patient Goals: decreased pain with activities Functional Limitations: reaching overhead, use hand with arm at shoulder level, driving, sleeping, recreational activities, physical activities, lifting, heavy exertion, carrying Prior Level of Function: Independent without limitations Relevant History Past Relevant Surgical Conditions: Comments, Spine fusion - Lumbar Relevant Surgical Conditions Comments: double lung transplant Right or Left Handed: Right Home Environment Patient Lives With: Spouse Intake Information: Prescription present Previous Treatment: Injections Pain: PROMIS Scales 03/28/2024 03/13/2024 Higher is Better Phys Func - Score 33 (moderate dysfunction) Phys Func - Percentile 4 Self-Eff Symptom - Score 45 (Average) Self-Eff Symptom - Percentile 31 T-scores: mean of general population = 50. 5 points is clinically meaningfully difference Percentiles provide an indication of how the patient's score ranks in relation to the general population. Higher percentile rankings indicate better function/quality of life. 50th percentile is the average of the general population and indicates half of respondents had a worse score. OBJECTIVE MEASURES WITH LEVEL OF FUNCTION: Posture / Alignment Posture: Rounded shoulders Shoulder Observations R Shoulder Palpation Tenderness: Bicipital groove, Supraspinatus, Infraspinatus UE AROM R Shoulder Flex: 180 Degrees (painful above 90 degrees) R Shoulder Internal Rotation (Functional): to small of back L Shoulder Flex: 180 Degrees L Shoulder Internal Rotation (Functional): to small of back UE and Cervical Strength Strength Tested: Shoulder All R Shoulder Flexion: 4+/5 R Shoulder Abduction (C5): 4+/5 R Shoulder Internal Rotation: 4+/5 R Shoulder External Rotation: 3+/5 R Elbow Extension (C7): 5/5 R Elbow Flexion (C6): 5/5 L Shoulder Flexion: 5/5 L Shoulder Abduction (C5): 5/5 L Shoulder Internal Rotation: 5/5 L Shoulder External Rotation: 5/5 L Elbow Extension (C7): 5/5 L Elbow Flexion (C6): 5/5 Special Tests - Shoulder Shoulder Special Tests: Empty Can, Neer Empty Can: Right Negative, Left Negative Neer: Right Positive, Left Negative Education: Education Learning/educational needs: Home exercise program, Plan of Care TREATMENT: PT Treatment Interventions: Therapeutic Exercise Evaluation Evaluation Therapeutic Exercise: 1: *shoulder extension wand 2x10 2: *(R) posterior capsule stretch 5 x 10 secs 3: *no money orange 2x10 4: *shoulder extension pink 2x10 Skilled Intervention: Patient was educated in proper exercise technique and purpose for exercises. Reviewed and educated patient on additions/changes for home exercise program as above (*). Skilled judgment was used in selection of appropriate interventions. Provided written instruction for home exercise program to facilitate proper performance and compliance. Access Code: [email or web address] URL: [email or web address] Date: 03/29/2024 Prepared by: Ar Garcia Exercises - Standing Shoulder Extension with Dowel - 2 x daily - 7 x weekly - 2 sets - 10 reps - Shoulder extension with resistance - Neutral - 2 x daily - 7 x weekly - 2 sets - 10 reps - Shoulder External Rotation and Scapular Retraction with Resistance - 2 x daily - 7 x weekly - 2 sets - 10 reps - Standing Shoulder Posterior Capsule Stretch (Mirrored) - 2 x daily - 7 x weekly - 1 sets - 5 reps - 10 seconds hold Billing * Evaluation Low Complexity: 1 Unit Therapeutic Exercise Treatment Minutes: 15 Skilled Treatment Time Minutes (timed and untimed codes): 40 Total Session Time (minutes): 40 Session Start Time : 1035 Session Stop Time : 1115 Physical Therapy Evaluation Ar Garcia PT documented in this encounter [facility] 03-29-2024 Note HNO ID: [id number] Author: AR GARCIA PT Service: ? Author Type: Physical Therapist Type: Progress Notes Filed: 03/29/2024 11:50 Note Text: Episode Visit Count: 1 Therapist That Will Accept/Oversee The Plan Of Care: Radha Start of Care Date: 03/29/24 Onset Date: 05/17/23 Patient Identified by Name and Date of : Yes REHABILITATION AND SPORTS THERAPY PHYSICAL THERAPY EVALUATION PLAN OF CARE: Assessment: Nick Hernández presents with chief complaint of (R) shoulder pain that interferes with reaching overhead, use hand with arm at shoulder level, driving, sleeping, recreational activities, physical activities, lifting, heavy exertion, carrying . He presents with impairments in ADL's, overall function, posture, range of motion, and strength. PROMIS? (Patient-Reported Outcomes Measurement Information System) scores were reviewed and identified as within normal limits. Prognosis for therapy is Good due to: current objective clinical presentation . He will benefit from skilled therapy services to meet the goals established for this plan of care as noted below. Goals for Episode of Care: created on 03/29/24 through 05/28/24 Perform OH reaching activities without pain or difficulty Williams in home exercise program. Perform ADL's with decreased report of symptoms/pain in 4-6 weeks. Increased strength of (R) shoulder by one full MMT grade or better in ER musculature Patient Goals: decreased pain with activities Planned Interventions, Frequency, and Duration: Current Frequency: 1x/week Duration: 6 weeks Total Number of Visits Planned: 6 Planned Treatment Interventions: Therapeutic exercise (27289), Neuromuscular re-education (61360), Manual therapy (60141), Therapeutic activities (39207), Self-longterm management (20975) PLAN FOR NEXT VISIT: review HEP, progress with RTC/posterior shoulder girdle strengthening Patient demonstrates good understanding of plan of care and treatment. The above goals and plan of care were discussed and agreed upon by patient/family. SUBJECTIVE: (R) shoulder pain. Most with OH reaching and driving. Feels tingling through the arm, down to the elbow as well. Pain at night if he rolls on to the shoulder. Had injection, but didn't seem to make any difference. Patient Goals: decreased pain with activities Functional Limitations: reaching overhead, use hand with arm at shoulder level, driving, sleeping, recreational activities, physical activities, lifting, heavy exertion, carrying Prior Level of Function: Independent without limitations Relevant History Past Relevant Surgical Conditions: Comments, Spine fusion - Lumbar Relevant Surgical Conditions Comments: double lung transplant Right or Left Handed: Right Home Environment Patient Lives With: Spouse Intake Information: Prescription present Previous Treatment: Injections Pain: PROMIS Scales 03/28/2024 03/13/2024 Higher is Better Phys Func - Score 33 (moderate dysfunction) Phys Func - Percentile 4 Self-Eff Symptom - Score 45 (Average) Self-Eff Symptom - Percentile 31 T-scores: mean of general population = 50. 5 points is clinically meaningfully difference Percentiles provide an indication of how the patient's score ranks in relation to the general population. Higher percentile rankings indicate better function/quality of life. 50th percentile is the average of the general population and indicates half of respondents had a worse score. OBJECTIVE MEASURES WITH LEVEL OF FUNCTION: Posture / Alignment Posture: Rounded shoulders Shoulder Observations R Shoulder Palpation Tenderness: Bicipital groove, Supraspinatus, Infraspinatus UE AROM R Shoulder Flex: 180 Degrees (painful above 90 degrees) R Shoulder Internal Rotation (Functional): to small of back L Shoulder Flex: 180 Degrees L Shoulder Internal Rotation (Functional): to small of back UE and Cervical Strength Strength Tested: Shoulder All R Shoulder Flexion: 4+/5 R Shoulder Abduction (C5): 4+/5 R Shoulder Internal Rotation: 4+/5 R Shoulder External Rotation: 3+/5 R Elbow Extension (C7): 5/5 R Elbow Flexion (C6): 5/5 L Shoulder Flexion: 5/5 L Shoulder Abduction (C5): 5/5 L Shoulder Internal Rotation: 5/5 L Shoulder External Rotation: 5/5 L Elbow Extension (C7): 5/5 L Elbow Flexion (C6): 5/5 Special Tests - Shoulder Shoulder Special Tests: Empty Can, Neer Empty Can: Right Negative, Left Negative Neer: Right Positive, Left Negative Education: Education Learning/educational needs: Home exercise program, Plan of Care TREATMENT: PT Treatment Interventions: Therapeutic Exercise Evaluation Evaluation Therapeutic Exercise: 1: *shoulder extension wand 2x10 2: *(R) posterior capsule stretch 5 x 10 secs 3: *no money orange 2x10 4: *shoulder extension pink 2x10 Skilled Intervention: Patient was educated in proper exercise technique and purpose for exercises. Reviewed and (more content not included)... [facility] 03-23-2024 History of Present illness Narrative Images from the original note were not included. [address] [facility] [address] [place] [id number] Dept: [phone] Dept Loc: [phone] Visit type: New patient Reason for Visit: Osteoporosis Assessment and Plan 1. Other osteoporosis without current pathological fracture - PTH, intact - Comprehensive metabolic panel 2. Current use of steroid medication 3. History of recurrent vertebral fractures 4. Fracture Risk Assessment Score (FRAX) indicating greater than 20% risk for major osteoporosis-related fracture 5. Fracture Risk Assessment Score (FRAX) indicating greater than 3% risk for hip fracture 6. History of lung transplant (HCC) FRAX: 10 year risk of major osteoporotic fracture 27% and of hip fracture 11%. Osteoporosis Treatment Recommendations: Bone anabolic therapy was discussed as a treatment option for osteoporosis. Pt is aware of the risks of this therapy including the rare risk of osteosarcoma. Benefits of this therapy were also discussed. Pt understands that this therapy is self administered via subcutaneous injection daily for 18-24 months followed by anti-resorptive therapy. Lifestyle modifications were discussed as part of treatment for low bone mineral density. I recommended optimizing calcium to 1200mg daily in divided doses, preferably through diet. I also recommended optimizing vitamin D supplementation, patient will be guided on dosage adjustment pending labs if needed. We discussed limiting alcohol, caffeine and pop. I recommended adding prunes into daily diet for bone health. Safe weight bearing exercise recommended for 30 minutes at least three times weekly. Fall prevention was discussed. Safe lifting was discussed with this patient. Patient understands to lift with legs. Pt should avoid activities that cause bending and twisting of the spine such as crunches due to increased risk of vertebral fractures. Physical therapy referral was offered to the patient. Patient understands that physical therapy can be beneficial for osteoporosis to help with posture, balance/fall prevention and strength. Rosa Maria Method may also be used during therapy to help with muscle strengthening, posture and alignment. Pt will think about this. Will monitor DXA every 2 years. Pt is interested in starting forteo pending labs. Advised pt on the following: Adequate dietary calcium intake of 5605-8708 mg per day through diet and/or supplements. Vitamin D3 4808-7953 IU daily. Participate in weight bearing exercises. Optimize home environment to minimize falls. Ensure good vision through regular eye exams. Avoid tobacco use and excessive alcohol consumption. Avoid use of steroids unless clinically necessary. Options for medical therapy discussed. These include bisphosphonates (oral or IV), denusomab, romosozumab, and parathyroid hormone. Discussed pros and cons of each option. Discussed appropriate administration. Discussed possible side effects. Follow up in about 6 months (around 09/22/2024). Subjective The patient is referred for: Osteoporosis Referred by Akbar Davis, DO The osteopenia/osteoporosis was first diagnosed on: ~2017 Risk factors for osteoporosis in the patient are history of the following glucocorticoid use, PPI use. Fracture history: L2, L3, L4, T7 fractures no injuries. Family history of OP: No Hip fracture in parent: No Rheumatoid arthritis: No Steroid use of at least 3 months: Yes Current smoking: No Alcohol use: No Secondary osteoporosis: Yes Menopause: NA HRT use: None DEXA imagin10/22/22 FINDINGS: Femoral neck LEFT Density: 0.567 g/cm2 T-score: -2.7. This falls within the osteoporotic range. Z-score: -1.7 Total Hip LEFT Density: 0.688 g/cm2 T-score: -2.3. This falls within the osteopenic range. Z-score: -1.8 Comparison from prior examination: N/A Spine: L2 & L5 (prior L3, L4, and L5 vertebroplasty/Kyphoplasty) Density 0.536 g/cm2 T-score: -4.9. This falls within the osteoporotic range. Z-score: -4.3 Comparison from prior examination: N/A Labs: see below Current treatment: Fosamax 70mg weekly since 2019, has been taking with other pills Calcium supplementation: 315mg ca BID Vit D supplementation: 250iu D3 in calcium BID, 50,000iu D2 weekly Dairy intake: milk daily, yogurt, green vegetables Medications that the patient has used: fosamax Side effects of meds: None Kidney disease:No Kidney stones:Yes Liver disease:No Gastrointestinal issues: GERD, umbilical hernia Gastric bypass:No Difficulty swallowing: only with large pills Dental issues:well fitting upper partial. Sees dentist a couple of times yearly. History of radiation: No History of bone disease/HPT: No Review of Systems Constitutional: Negative for appetite change. HENT: Positive for dental problem. Negative for trouble swallowing. Upper partial. Gastrointestinal: Negative for constipation, diarrhea, nausea and vomiting. Endocrine: Type 2 DM Musculoskeletal: Positive for back pain and neck pain. Multiple vertebral fractures causing pain, he manages this with pain management and his PCP. Allergic/Immunologic: Positive for immunocompromised state. Neurological: Pt fell out of bed 12/2023, was not evaluated afterwards. An entire ROS was performed at the time of this encounter. Unless noted above in the HPI, the ROS is negative. Allergies Allergen Reactions Codeine Hives Fluticasone Other Fluticasone Furoate-Vilanterol Other and Shortness of breath Nsaids Other Due to lung transplant Vilanterol Unknown Ciprofibrate Wound Dressing Adhesive Hives Outpatient Medications Prior to Visit Medication Sig Dispense Refill acetaminophen (Tylenol) 325 MG tablet Take 650 mg by mouth every 6 hours as needed. alendronate (Fosamax) 70 MG tablet Take 70 mg by mouth. amLODIPine (Norvasc) 5 MG tablet Take 10 mg by mouth in the morning. aspirin 81 MG chewable tablet Chew 81 mg. azithromycin (Zithromax) 250 MG tablet Take 250 mg by mouth. azithromycin (Zithromax) 500 MG tablet Take 500 mg by mouth. calcium citrate-vitamin D2 315-250 MG-UNIT tablet Take 1 tablet by mouth. ergocalciferol (Vitamin D-2) 1.25 MG (36495 UT) capsule Take 50,000 Units by mouth. gabapentin (Neurontin) 400 MG capsule Take 400 mg by mouth. gabapentin (Neurontin) 800 MG tablet Take 800 mg by mouth. glucose blood (Navendisuch Ultra) test strip 400 strips in the morning and 400 strips in the evening. HYDROcodone-acetaminophen (Voss) 10-325 MG tablet Take 1 tablet by mouth every 6 hours as needed. magnesium oxide (Mag-Ox) 400 MG tablet Take 800 mg by mouth in the morning and 800 mg in the evening. mycophenolate (Cellcept) 250 MG capsule Take 1,000 mg by mouth in the morning and 1,000 mg before bedtime. naloxone (Narcan) 4 mg/0.1 mL nasal spray Administer 1 spray into affected nostril(s). oxybutynin XL (Ditropan-XL) 10 MG 24 hr tablet Take 10 mg by mouth in the morning. pantoprazole (ProtoNix) 40 MG EC tablet Take 40 mg by mouth in the morning and 40 mg in the evening. predniSONE (Deltasone) 5 MG tablet Take 5 mg by mouth. rosuvastatin (Crestor) 10 MG tablet Take 10 mg by mouth in the morning. SITagliptin (Januvia) 100 MG tablet Take 100 mg by mouth. sulfamethoxazole-trimethoprim (Bactrim DS) 800-160 MG tablet Take 1 tablet by mouth in the morning and 1 tablet before bedtime. tacrolimus (Prograf) 0.5 MG capsule Take 1 mg by mouth. therapeutic kyexcowgxnvk-zkhh-boeccedr (Theragran-M) tablet Take 1 tablet by mouth in the morning. calcium citrate-vitamin D2 (Citracal+D) 315-200 MG-UNIT tablet Take 1 tablet by mouth in the morning and 1 tablet in the evening. carvedilol (Coreg) 25 MG tablet Take 25 mg by mouth in the morning and 25 mg in the evening. ipratropium-albuterol (Combivent Respimat) 20-100 MCG/ACT inhaler Inhale 3 mL in the morning and 3 mL at noon and 3 mL in the evening and 3 mL before bedtime. Lecithin 1200 MG capsule Take 1,200 mg by mouth in the morning. Multiple Vitamins-Iron tablet Take 1 tablet by mouth. No facility-administered medications prior to visit. Past Medical History: Diagnosis Date Diabetes mellitus (HCC) Social History Tobacco Use Smoking status: Never Smokeless tobacco: Never Substance Use Topics Alcohol use: Never Past Surgical History: Procedure Laterality Date JOINT REPLACEMENT LUNG TRANSPLANT, DOUBLE Bilateral WRIST SURGERY No family history on file. Objective BP (!) 144/90 Pulse 67 Ht 5' 8.31 (1.735 m) Comment: was 5'11'' Wt 215 lb (97.5 kg) SpO2 96% BMI 32.40 kg/m Physical Exam Vitals and nursing note reviewed. Constitutional: Appearance: Normal appearance. HENT: Head: Normocephalic and atraumatic. Mouth/Throat: Mouth: Mucous membranes are moist. Comments: Upper partial Cardiovascular: Rate and Rhythm: Normal rate and regular rhythm. Heart sounds: Normal heart sounds. Pulmonary: Effort: Pulmonary effort is normal. Breath sounds: Normal breath sounds. Abdominal: General: There is no distension. Palpations: Abdomen is soft. Tenderness: There is no abdominal tenderness. There is no guarding. Musculoskeletal: Cervical back: No bony tenderness. Thoracic back: Normal range of motion. Lumbar back: Bony tenderness present. Right lower leg: No edema. Left lower leg: No edema. Comments: Chronic TTP of spine. Skin: General: Skin is warm and dry. Neurological: Mental Status: He is alert and oriented to person, place, and time. Psychiatric: Mood and Affect: Mood normal. Behavior: Behavior normal. Data Reviewed and Summarized Labs: Lab Results Component Value Date NA 137 05/16/2023 K 3.5 05/16/2023 CL 111 (H) 05/16/2023 CO2 21 (L) 05/16/2023 BUN 16 05/16/2023 CREATININE 0.99 05/16/2023 CREATININE 1.12 11/24/2021 GLUCOSE 98 05/16/2023 CALCIUM 8.3 (L) 05/16/2023 ESTIMATED GFR, NON AMER, MANUAL ENTER Order: [id number] Component 3 wk ago ESTIMATED GFR, NON AMER, MANUAL ENTER 66 Resulting [facility], [facility] Specimen Collected: 03/02/24 07:56 Performed by: KHADAR Tricia Last Resulted: 03/07/24 07:56 Received From: [facility] Result Received: 03/22/24 07:44 Received Information Specimen Date Taken Specimen Time Taken Specimen Received Date Specimen Received Time Result Date Result Time March 02, 2024 7:56 AM March 07, 2024 7:56 AM VITAMIN D (25-HYDROXY,TOTAL), MANUAL ENTER Order: [id number] Component 2 mo ago VITAMIN D (25-HYDROXY,TOTAL), MANUAL ENTER [address] [facility] Specimen Collected: 01/20/24 08:34 Performed by: DANAE RUBALCAVA Last Resulted: 01/24/24 10:16 Received From: [facility] Result Received: 01/30/24 10:17 CALCIUM (CA), MANUAL ENTER Order: [id number] Component 3 wk ago CALCIUM (CA), MANUAL ENTER 9.9 Resulting [facility] Specimen Collected: 03/02/24 07:56 Performed by: DANAE RUBALCAVA Last Resulted: 03/07/24 07:56 Received From: [facility] Result Received: 03/22/24 07:44 CALCIUM (CA), MANUAL ENTER Order: [id number] Component 2 mo ago CALCIUM (CA), MANUAL ENTER 10.[address] [facility] Specimen Collected: 01/20/24 08:27 Performed by: DANAE RUBALCAVA Last Resulted: 01/26/24 10:16 TSH Order: [id number] Component Ref Range & Units 4 mo ago TSH 0.550 - 4.780 uIU/mL 3.633 Resulting [facility] Specimen Collected: 11/07/23 09:06 Performed by: [facility] Last Resulted: 11/07/23 11:30 Received From: [facility] Result Received: 11/10/23 17:05 No results found for: PTH Imaging/Testing: The combined time I spent reviewing previous notes/test results, evaluating the patient, providing counseling on disease process and treatment plan the day of the visit as well as documenting totaled 53 minutes. I have addressed the above chronic illnesses including management, progression, and benefits and side effects of treatment. I have reviewed prior records, interpreted test results and discussed management with the patient. Portions of the information within this encounter were entered using an electronic dictation system. Best attempts were made to edit/proofread the information prior to note completion. Despite the review of information, some errors may remain. If there are questions related to the information contained within the note please contact the signing physician directly. documented in this encounter [facility] 03-23-2024 Instructions FELICE Frank CNP - 03/23/2024 9:20 AM EDT Please call me with the amount of calcium and vitamin D in your multivitamin. Please ensure 1200mg of calcium daily between diet and supplement, no more than 600mg at once. The following attachments cannot be sent through Care Everywhere.Osteoporosis Discharge Instructions (Citizen Of [place])Weight-Bearing Exercises (Citizen Of [place])Teriparatide, ADULT (Citizen Of [place])How to Give a Subcutaneous Injection (Citizen Of [place])documented in this encounter [facility] 03-20-2024 Note HNO ID: [id number] Author: SHERIN FOX LPN Service: ? Author Type: LICENSED NURSE Type: Progress Notes Filed: 03/20/2024 11:23 Note Text: Injection prepared per Dr. Ivy's order and handed directly to him. Injection site: right shoulder Sherin Fox LPN [facility] 03-20-2024 History of Present illness Narrative Injection prepared per Dr. Ivy's order and handed directly to him. Injection site: right shoulder Sherin Fox LPN Associated Order(s): Large Joint Arthro/Inj: R shoulder joint Post-Procedure Diagnose(s): Right shoulder pain, unspecified chronicity Images from the original note were not included. ORTHOPAEDIC SHOULDER & ELBOW SERVICE HISTORY & PHYSICAL EXAM REFERRING PROVIDER: No referring provider defined for this encounter. CHIEF COMPLAINT: right shoulder pain PAIN EVALUATION 03/15/2024 1855 03/20/2024 1020 Pain Level: 8 8 Pain Location: Shoulder-Right Shoulder-Right Description: Aching;Burning;Crushing;Numbness;R adiating;Sharp;Shooting;Sore;Stabb ing;Tingling Sharp;Aching;Numbness;Burning;Shoo ting Duration Amount of Time: 24 11 Duration Units: Months Months Frequency: Continuous Continuous Intervention/Comfort measure: Medication;Reposition;Relaxation;H eat;Pillow support;Positioning;Rocking/holdin g -- Comments: Level 8 sometimes 10 -- Nick Nadia Hernández is a 63 year old male presents to clinic with right shoulder pain. Began last April without acute injury. Pain with reaching and lifting away from his body. Describes it as burning pain. History of a left shoulder arthroscopic rotator cuff repair, states his right shoulder feels similar. He underwent MRI evaluation in October. He has had no treatments on the shoulder. 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 No pertinent surgical history. SOCIAL HISTORY: Social History Tobacco Use Smoking status: Never Smokeless tobacco: Never Substance Use Topics Alcohol use: Never Drug use: Never ALLERGIES: ALLERGIES Allergen Reactions Fluticasone Furoate Other: See Comments Vilanterol Other: See Comments Codeine Sulfate Hives Breo Ellipta [Fluti* Other: See Comments Codeine Hives Adhesive Tape (Dorina* Hives MEDICATIONS: Current Outpatient Medications on File Prior to Visit Medication Sig aspirin, enteric coated (ASPIRIN, ENTERIC COATED) 81 mg EC tablet Take 81 mg by mouth once daily. calcium citrate-vitamin D3 (CITRACAL+D) 315 mg-5 mcg (200 unit) tab Take 1 tablet by mouth two times a day with meals. citalopram hydrobromide (CELEXA) 10 mg tablet Take 10 mg by mouth once daily. ergocalciferol 50,000 unit capsule (VITAMIN D2, DRISDOL) Take 50,000 Units by mouth one time a week. gabapentin (NEURONTIN) 400 mg capsule Take 400 mg by mouth three times a day. magnesium oxide 400 mg magnesium tab Take 400 mg by mouth two times a day. Take [address] (PROTONIX) 40 mg tablet Take 40 mg by mouth two times a day. predniSONE (DELTASONE) 5 mg tablet Take 5 mg by mouth once daily. rosuvastatin (CRESTOR) 10 mg tablet Take 10 mg by mouth once daily. SITagliptin phosphate (JANUVIA) 100 mg tablet Take 100 mg by mouth once daily. sulfamethoxazole-trimethoprim (BACTRIM DS) 800-160 mg per tablet Take 1 tablet by mouth three times a week. mycophenolate mofetil (CELLCEPT) 250 mg capsule Take 250 mg by mouth every 12 hours. 4 capsules tacrolimus IR (PROGRAF) 0.5 mg capsule Take 0.5 mg by mouth two times a day. 2 capsules in am, 1 capsule evening alendronate (FOSAMAX) 70 mg tablet Take 70 mg by mouth one time a week. In AM with cup of water on empty stomach. Nothing else by mouth and stay upright for 30 min. amLODIPine (NORVASC) 5 mg tablet Take 5 mg by mouth once daily. hydrOXYzine pamoate (VISTARIL) 25 mg capsule Take 25 mg by mouth three times a day as needed. prednisoLONE acetate-bromfenac 1-0.075 % drps Use 1 Drop in eyes two times a day. oxybutynin ER (DITROPAN XL) 10 mg 24 hr tablet Take 10 mg by mouth once daily. acetaminophen 325 mg cap Take 2 capsules by mouth every 6 hours as needed for pain. HYDROcodone-Acetaminophen (NORCO) 10-325 mg per tablet Take 1 tablet by mouth every 4 hours as needed. azithromycin (ZITHROMAX) 500 mg tablet Take 500 mg by mouth every Tuesday,Tuesday,Tuesday. ipratropium-albuterol 20-100 mcg/actuation mist Inhale 3 mL as instructed four times daily. Lecithin 1,200 mg cap Take 1,200 mg by mouth once daily. MULTIVITAMIN ORAL Take 1 tablet by mouth. No current facility-administered medications on file prior to visit. PHYSICAL EXAMINATION: Resp 20 Ht 177.8 cm (5' 10 ) Wt 100.6 kg (221 lb 12.8 oz) BMI 31.82 kg/m EXAM: Shoulder Musculoskeletal Exam Inspection Right Right shoulder inspection is normal. Palpation Right Tenderness: present Anterior shoulder: mild Range of Motion Right Active ROM: abnormal and pain. Active forward elevation: 160. Passive forward elevation: 160. Shoulder active abduction: 160. Passive abduction: 160. Active external rotation at side: 40. Internal rotation: L5. Strength Right External rotation: 5/5. Internal rotation: 5/5. Abduction: 5/5. Abduction is affected by pain. Neurovascular Right Right shoulder nerve sensation is normal. Scapula Right Right shoulder scapula is normal. Special Tests Right Rotator Cuff Signs Neer's test: positive Rodriguez test: negative External rotation lag sign: negative Supraspinatus: positive Belly press test: negative Painful arc test: positive Lift-off sign: negative Bear hug test: negative Drop arm test: negative Biceps/vero Signs Speonk's test: positive Damian deformity: negative Speed's test: negative AC Joint Signs Active horizontal adduction pain: negative Instability Signs Joint laxity: negative General Constitutional: appears stated age Psychiatric: normal mood and affect and no acute distress Neurological: alert and oriented x3 IMAGING: Radiographs of the right shoulder personally reviewed today. Date of exam today. This is a 3-view shoulder exam, including AP, outlet, and axillary views. My interpretation of the examination: Normal right shoulder, mild degenerative changes MEDICAL DECISION MAKING: (M25.042) Right shoulder pain, unspecified chronicity (primary encounter diagnosis) Comment: Unlikely to be due to nerve condition Plan: A comprehensive physical therapy program was ordered today after discussion of conservative treatment. Physical therapy would be expected to provide benefit within approximately 6 to 12 weeks of starting the program. This will likely involve both in person visits as well as a structured home program. The importance of adherence to the physical therapy program for the best possible outcome was discussed today. Large Joint Arthro/Inj: R shoulder joint 03/20/2024 11:22 AM The procedure site was prepped in the usual sterile fashion. Site: R shoulder joint Medications: 80 mg triamcinolone acetonide 40 mg/mL Anesthetics: 4 mL bupivacaine (PF) 0.25 % (2.5 mg/mL) Outcome: Tolerated well, no immediate complications Post-injection instructions were reviewed with the patient and the patient voiced understanding of these instructions. Medical decision making for today's visit was conducted with review of the following data sources: History, exam, imaging REFERRING PHYSICIAN: The patient was referred to in for consultation by the following physician. This consultation note will be sent to the following physician by either mail or electronic medical record. No referring provider defined for this encounter. Kermit Ivy MD Shoulder & Elbow Surgeon Department of Orthopaedic Surgery [facility] documented in this encounter [facility] 03-20-2024 Note HNO ID: [id number] Author: KERMIT IVY MD Service: ? Author Type: Physician Type: Progress Notes Filed: 03/20/2024 11:23 Note Text: ORTHOPAEDIC SHOULDER AND ELBOW SERVICE HISTORY AND PHYSICAL EXAM REFERRING PROVIDER: No referring provider defined for this encounter. CHIEF COMPLAINT: right shoulder pain PAIN EVALUATION 03/15/2024 1855 03/20/2024 1020 Pain Level: 8 8 Pain Location: Shoulder-Right Shoulder-Right Description: Aching;Burning;Crushing;Numbness;R adiating;Sharp;Shooting;Sore;Stabb ing;Tingling Sharp;Aching;Numbness;Burning;Shoo ting Duration Amount of Time: 24 11 Duration Units: Months Months Frequency: Continuous Continuous Intervention/Comfort measure: Medication;Reposition;Relaxation;H eat;Pillow support;Positioning;Rocking/holdin g -- Comments: Level 8 sometimes 10 -- Nick Hernández is a 63 year old male presents to clinic with right shoulder pain. Began last April without acute injury. Pain with reaching and lifting away from his body. Describes it as burning pain. History of a left shoulder arthroscopic rotator cuff repair, states his right shoulder feels similar. He underwent MRI evaluation in October. He has had no treatments on the shoulder. 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 No pertinent surgical history. SOCIAL HISTORY: Social History Tobacco Use Smoking status: Never Smokeless tobacco: Never Substance Use Topics Alcohol use: Never Drug use: Never ALLERGIES: ALLERGIES Allergen Reactions Fluticasone Furoate Other: See Comments Vilanterol Other: See Comments Codeine Sulfate Hives Breo Ellipta [Fluti* Other: See Comments Codeine Hives Adhesive Tape (Dorina* Hives MEDICATIONS: Current Outpatient Medications on File Prior to Visit Medication Sig aspirin, enteric coated (ASPIRIN, ENTERIC COATED) 81 mg EC tablet Take 81 mg by mouth once daily. calcium citrate-vitamin D3 (CITRACAL+D) 315 mg-5 mcg (200 unit) tab Take 1 tablet by mouth two times a day with meals. citalopram hydrobromide (CELEXA) 10 mg tablet Take 10 mg by mouth once daily. ergocalciferol 50,000 unit capsule (VITAMIN D2, DRISDOL) Take 50,000 Units by mouth one time a week. gabapentin (NEURONTIN) 400 mg capsule Take 400 mg by mouth three times a day. magnesium oxide 400 mg magnesium tab Take 400 mg by mouth two times a day. Take [address] (PROTONIX) 40 mg tablet Take 40 mg by mouth two times a day. predniSONE (DELTASONE) 5 mg tablet Take 5 mg by mouth once daily. rosuvastatin (CRESTOR) 10 mg tablet Take 10 mg by mouth once daily. SITagliptin phosphate (JANUVIA) 100 mg tablet Take 100 mg by mouth once daily. sulfamethoxazole-trimethoprim (BACTRIM DS) 800-160 mg per tablet Take 1 tablet by mouth three times a week. mycophenolate mofetil (CELLCEPT) 250 mg capsule Take 250 mg by mouth every 12 hours. 4 capsules tacrolimus IR (PROGRAF) 0.5 mg capsule Take 0.5 mg by mouth two times a day. 2 capsules in am, 1 capsule evening alendronate (FOSAMAX) 70 mg tablet Take 70 mg by mouth one time a week. In AM with cup of water on empty stomach. Nothing else by mouth and stay upright for 30 min. amLODIPine (NORVASC) 5 mg tablet Take 5 mg by mouth once daily. hydrOXYzine pamoate (VISTARIL) 25 mg capsule Take 25 mg by mouth three times a day as needed. prednisoLONE acetate-bromfenac 1-0.075 % drps Use 1 Drop in eyes two times a day. oxybutynin ER (DITROPAN XL) 10 mg 24 hr tablet Take 10 mg by mouth once daily. acetaminophen 325 mg cap Take 2 capsules by mouth every 6 hours as needed for pain. HYDROcodone-Acetaminophen (NORCO) 10-325 mg per tablet Take 1 tablet by mouth every 4 hours as needed. azithromycin (ZITHROMAX) 500 mg tablet Take 500 mg by mouth every Tuesday,Tuesday,Tuesday. ipratropium-albuterol 20-100 mcg/actuation mist Inhale 3 mL as instructed four times daily. Lecithin 1,200 mg cap Take 1,200 mg by mouth once daily. MULTIVITAMIN ORAL Take 1 tablet by mouth. No current facility-administered medications on file prior to visit. PHYSICAL EXAMINATION: Resp 20 Ht 177.8 cm (5' 10 ) Wt 100.6 kg (221 lb 12.8 oz) BMI 31.82 kg/m? EXAM: Shoulder Musculoskeletal Exam Inspection Right Right shoulder inspection is normal. Palpation Right Tenderness: present Anterior shoulder: mild Range of Motion Right Active ROM: abnormal and pain. Active forward elevation: 160. Passive forward elevation: 160. Shoulder active abduction: 160. Passive abduction: 160. Acti (more content not included)... [facility] 12-15-2023 Telephone encounter Note Called patient Nick to reschedule appointment, no answer. Left message for patient to call back to reschedule. [facility] 12-15-2023 Miscellaneous Notes Called patient Nick to reschedule appointment, no answer. Left message for patient to call back to reschedule. Name of caller: Nick Contact phone number: [phone] Relationship to Patient: patient Provider: any Practice: [facility] Chief Complaint/Reason for Call: Patient needs to reschedule appointment that was today at 12.15.2023. Patient has covid. Please call to reschedule. Please advise. Best time of day caller can be reached: any Patient advised that office/PCP has 24-48 business hours to return their call: No documented in this encounter [facility] 12-15-2023 Telephone encounter Note Name of caller: Nick Contact phone number: [phone] Relationship to Patient: patient Provider: any Practice: [facility] Chief Complaint/Reason for Call: Patient needs to reschedule appointment that was today at 12.15.2023. Patient has covid. Please call to reschedule. Please advise. Best time of day caller can be reached: any Patient advised that office/PCP has 24-48 business hours to return their call: No Gust 11-07-2023 History of Present illness Narrative [facility] Progress Note: Nick Hernández is a 63 y.o. male presents for post lung transplant follow up. No respiratory complaints today Transplant Info: DOT: 12/11/2018 (Lung) Alloscreen: Lab Results Component Value Date ABSPC No DSA detected 11/08/2022 ABSPC No DSA detected 10/29/2021 ABSPC No DSA detected 02/26/2021 ABSPC No DSA detected 12/06/2019 ABSPC No DSA detected 10/04/2019 ABSPC No DSA detected 07/05/2019 Return to Clinic: 6mths Lab Draw Frequency: monthly Immunosuppressive Medications: Mycophenolate: 1000mg twice daily Prednisone: 5mg daily Tacrolimus: 1mg in the am and 0.5mg; (goal: 4-6) Oxygen Requirements: Nick is not on home oxygen he does not wear CPAP Today's Vital Signs: Vitals: 11/07/23 1329 BP: 159/90 Pulse: 91 Resp: 16 Temp: 98 degrees F (36.7 degrees C) TempSrc: Oral SpO2: 96% Weight: 103 kg (227 lb) Height: 1.753 m (5' 9 ) Wt Readings from Last 6 Encounters: 11/07/23 90.4 kg (199 lb 4.7 oz) 05/21/23 90.4 kg (199 lb 3.2 oz) 05/09/23 95.6 kg (210 lb 11.2 oz) 11/08/22 99.1 kg (218 lb 8 oz) 05/11/22 95.3 kg (210 lb) 05/03/22 94.3 kg (207 lb 14.4 oz) Patient Education Medication reconciliation completed and continued education regarding current medications provided to patient. Emotional support and reflective listening ongoing. AVS and follow up schedule reviewed with Nick. All questions answered per Nick's satisfaction. Patient verbalized understanding and appreciation. Taina Mcdaniel, RN, BSN, PCCN Lung Supervisor [employer] Images from the original note were not included. LUNG TRANSPLANT PROGRESS NOTE Referring provider: Saanm Akers Nick Hernández is a 63 y.o. male s/p lung transplantation. IMPRESSION AND RECOMMENDATIONS Drug Levels Lab Results Component Value Date TACROLIMUS 5.7 11/07/2023 TACROLIMUS 4.7 05/21/2023 TACROLIMUS 4.2 05/20/2023 Lab Results Component Value Date TACROTRGHMAN 4.5 10/26/2023 TACROTRGHMAN 4.6 09/21/2023 TACROTRGHMAN 7.1 07/28/2023 Transplant Bilateral lung transplant (12/11/18) for COPD (Dr. Reyna) Allograft function: Stable today - Reference FEV1 = 2.88 L (reset due to weight gain 01/31/20); 80% = 2.30 Immunosuppression, high risk meds, therapeutic drug monitoring PLAN: - Tacrolimus: Goal trough: 4-6; - Mycophenolate: 1000mg bid - Prednisone: 5 mg daily - TITUS Prophylaxis: azithromycin Respiratory Ongoing mucus production PLAN: - Home microspirometry, Monthly in-lab spirometry - patient to consider Sleep study through his local PCP ID CMV D-/R- EBV D+/R+ Vaccinations Influenza: Jul 2021 per patient PCV13: 05/09/18 COVID-19: 01/09/21, 02/06/21 (Moderna); 10/16/21; 08/13/22 RSV, Influenza and COVID all current in 2022 PLAN: PPSV23 due Prophylaxis: - Bactrim 1 DS QMWF CV CAD, diffuse Systemic hypertension PLAN: - ASA, Norvasc - Now off of carvedilol Renal / 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 Reyna) - Induction with Basiliximab on Day 0 and 4 - PGD @ T24: 0 - PGD @ T48: 0 - PGD @ T72: 0 - Graft function - Reference FEV1 = 2.88 L (reset due to weight gain 01/31/20); 80% = 2.30 - Status - ABO O positive - CMV: Donor NEG Recipient NEG - EBV: Donor POS Recipient POS - Infection: - Donor cultures: S aureus, C albicans - Recipient cultures: S pseudointermedius - 12/12/18 BAL: Metapneumovirus - Ribavirin + prednisone taper - 12/26/18 BAL: Metapneumovirus - Ribavirin + prednisone taper - 03/13/19 BW: S epidermidis, S lugunensis - 04/10/19 BAL: E cloacae - 02/04/21 Thigh bx: Herpesvirus - valacyclovir x 7 days - Transbronchial biopsies: - 02/06/19: A0B0. BALT hyperplasia - 03/13/19: A0B1, aspirated vegetable material - 03/13/19 EBBx: granulation tissue/inflammatory polyp - 04/10/19 EBBx: exuberant granulation tissue with suppurative inflammation - 05/22/19: A0Bx - 07/17/19 EBBx: granulation tissue - 09/03/19 TBBx: A0Bx, focal stenosis (ISHLT stenosis c, c). 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); asymptomatic - Nephrolithiasis s/p lithotripsy - Airway issues: benign growth (granulation tissue), focal moderate BI stenosis (ISHLT stenosis c,c) - - Severe R hip arthritis s/p R COTY (03/06/20) - Lumbar compression fractures s/p vertebroplasties - H/o Bronchial granulation tissue requiring repeat excision; RBI stenosis (ISHLT c, c) - Erectile Dysfunction - 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 - 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 No complaints. Continues to do well. No complaints of dyspnea and does not require supplemental oxygen. He does complain of ongoing mucus production, after URI sx one month ago. He says sx developed shortly after receiving RSV/flu/covid vacc. He stopped coreg and increased amlodipine due to fatigue He continues to have some fatigue and we discusssed DWIGHT as a possible dx. He will decide whether or not to pursue testing with his lcoal PCP. He is remaining as active as possible but has been limited recently by weather. REVIEW OF SYSTEMS All other systems reviewed and are negative for pertinent findings except as mentioned in the HPI/Interval History. MEDICATIONS AND ALLERGIES Current Outpatient Medications Medication Sig Last Dose Start Date End Date Authorizing Provider acetaminophen 325 MG tablet Take 2 tablets by mouth every 6 hours as needed for mild or moderate pain. Taking 05/03/22 Nick Lopez MD Alcohol Swabs 70 % Pads 1 Each, Unknown, 2 TIMES DAILY 11/07/23 Akbar Davis, alendronate 70 MG tablet 70 mg, Oral, EVERY 7 DAYS Taking 06/08/23 Nick Lopez MD amLODIPine 5 MG tablet 5 mg, Oral, DAILY Patient taking differently: Take 2 tablets by mouth daily. Taking 06/08/23 Nick Lopez MD aspirin (RA Aspirin Adult Low Dose) 81 MG Chew Tab chewable tablet 81 mg, Oral, DAILY 11/07/23 Akbar Davis DO Azithromycin 250 MG tablet 250 mg, Oral, EVERY M, W & F 11/07/23 11/06/28 Akbar Davis DO Calcium Citrate-Vitamin D (RA Calcium Citrate Plus Vit D) 315-5 MG-MCG tablet 1 tablet, Oral, EVERY 12 HOURS 11/07/23 Akbar Davis, DO Citalopram 10 MG tablet 10 mg, Oral, DAILY 11/07/23 02/05/24 Akbar Davis, DO Ergocalciferol 1.25 MG (90008 UT) capsule 50,000 Units, Oral, WEEKLY 11/07/23 Akbar Davis, DO Gabapentin 400 MG capsule TAKE 1 CAPSULE BY MOUTH EVERY MORNING, TAKE 2 CAPSULES BY MOUTH EVERY AFTERNOON and TAKE 1 CAPSULE BY MOUTH EVERY EVENING 11/07/23 05/06/24 Akbar Davis DO glucose blood test strips (OneTouch Ultra) Strip strip 400 strips, Instructed, 2 TIMES DAILY 11/07/23 Akbar Davis DO hydrOXYzine HCl 25 MG tablet 25 mg, Oral, 3 TIMES DAILY NEEDED Taking 05/21/23 11/07/23 ALEX Keene/[facility] Lancets Misc 1 Each, Unknown, 2 TIMES DAILY 11/07/23 Akbar Davis DO magnesium oxide 400 MG tablet 800 mg, Oral, EVERY 12 HOURS 11/07/23 Akbar Davis DO Multiple Vitamin (multivitamin) tablet 1 tablet, Oral, DAILY 11/07/23 Akbar Davis DO Mycophenolate mofetil (CELLCEPT) 250 MG capsule 1,000 mg, Oral, EVERY 12 HOURS Taking 07/18/23 Tomasz Troncoso MD oxybutynin CR 10 MG Tab SR 24 HR tablet 10 mg, Oral, DAILY Taking 04/23/22 Historical Provider Pantoprazole [address] DR 40 mg, Oral, 2 TIMES DAILY 11/07/23 Akbar Davis DO prednisoLONE acetate 1 % Suspension ophthalmic suspension 1 drop, Right Eye, 2 TIMES DAILY Taking 05/03/23 Historical Provider predniSONE 5 MG tablet 5 mg, Oral, DAILY 11/07/23 Akbar Davis DO Rosuvastatin 10 MG tablet 10 mg, Oral, DAILY 11/07/23 Akbar Davis DO SITagliptin (Januvia) 100 MG tablet 100 mg, Oral, DAILY 11/07/23 Akbar Davis, DO Sulfamethoxazole-trimethoprim 800-160 MG per tablet 1 tablet, Oral, THREE TIMES WEEKLY 11/07/23 11/06/28 Akbar Davis, DO Tacrolimus (PROGRAF) 0.5 MG capsule Take 2 capsules by mouth daily every morning AND 1 capsule every evening. Taking 07/18/23 Tomasz Troncoso MD Allergies: Allergies Allergen Reactions Breo Ellipta [Fluticasone Furoate-Vilanterol] Shortness of Breath Codeine Hives PHYSICAL EXAM BP 159/90 (BP Location: Left arm, BP Position: Sitting) Pulse 91 Temp 98 F (36.7 C) (Oral) Resp 16 Ht 1.753 m (5' 9 ) Wt 103 kg (227 lb) SpO2 96% Comment: RA BMI 33.52 kg/m Smoking Status Former Body mass index is 33.52 kg/m . Wt Readings from Last 3 Encounters: 11/07/23 103 kg (227 lb) 11/07/23 90.4 kg (199 lb 4.7 oz) 05/21/23 90.4 kg (199 lb 3.2 oz) GENERAL: Well-developed male. No apparent distress. HEENT: Pupils equal, round. Extraocular muscles intact. No scleral icterus. Oropharynx clear with moist mucus membranes. No erythema or exudate. NECK: Neck supple. No lymphadenopathy. No thyromegaly. No stridor. CARDIOVASCULAR: Regular rate and regular rhythm. No murmurs, rubs or gallops. Normal S1 and S2. PULMONARY: Clear to auscultation bilaterally but diminished at right basse. No wheezing, rhonchi or rales. GASTROINTESTINAL: Soft, non-tender, non-distended. Bowel sounds present. MUSCULOSKELETAL: No cyanosis, clubbing. No joint effusions or erythema. SKIN: Warm and dry. No jaundice or rash. No LE edema. NEUROLOGIC: A&O x 3. Moves all extremities. PSYCHIATRIC: Affect normal. Mood normal. DATA REVIEW CBC Lab Results Component Value Date WBC 7.61 11/07/2023 HGB 13.4 11/07/2023 HCT 43.4 11/07/2023 PLATELET 255 11/07/2023 MCV 92.3 11/07/2023 CMP Lab Results Component Value Date SODIUM 142 11/07/2023 POTASSIUM 3.6 11/07/2023 CHLORIDE 103 11/07/2023 CO2 27 11/07/2023 BUN 15 11/07/2023 CREATSERUM 1.02 11/07/2023 GLUCOSE 91 11/07/2023 Lab Results Component Value Date ALT 25 11/07/2023 AST 25 11/07/2023 GGT 38 10/26/2023 ALKPHOS 58 11/07/2023 BILITOTAL 0.4 11/07/2023 BILIDIRECT 0.1 11/07/2023 Lab Results Component Value Date CMVPCR Not Detected 10/26/2023 Imaging/Radiological Studies I have personally reviewed and interpreted the radiographic data in [facility]. PFT Results 07/29/2021 12:00 09/21/2021 12:00 10/29/2021 12/01/2021 12:00 12/28/2021 12:00 01/28/2022 12:00 03/30/2022 12:00 05/03/2022 15:00 05/31/2022 12:00 PFT Results FVC-Pre 4.47 Liters 4.15 Liters FVC 4.23 4.08 4.43 3.96 4.31 3.69 4.22 FVC % Pred, % Ref 82 79 86 77 84 72 82 FVC-%Pred-Pre 96 % 90 % FEV1-Pre 2.81 Liters 2.65 Liters FEV1 Pre Liters 2.6 2.55 2.77 2.46 2.77 2.09 2.52 FEV1 % Pred % Ref 67 65 71 63 71 54 65 FEV1-%Pred-Pre 79 % 76 % FEV1/FVC-Pre 63 % 64 % FEV1/FVC % Ref 62 63 82 62 64 57 60 [id number] 1.49 L/sec 1.37 L/sec FEF 25-75% 1.12 % 1.22 % 1.32 % 1.11 % 1.46 % 0.65 % 1.07 % TLCPleth-Pre 5.7 Liters RVPleth-Pre 1.6 Liters DLCOunc-Pre 23.55 mL/mmHg/min DLCOunc-%Pred-Pre 83 % DLCOcor-%Pred-Pre 80 % 07/01/2022 12:00 07/30/2022 12:00 08/30/2022 12:00 09/29/2022 12:00 11/08/2022 13:32 11/29/2022 12:00 12/27/2022 12:00 01/24/2023 12:00 02/28/2023 12:00 PFT Results FVC-Pre 3.9 Liters 3.9 Liters FVC 4.43 4.1 4.05 3.85 3.78 3.9 3.63 3.56 FVC % Pred, % Ref 87 80 79 75 77 79 71 70 FVC-%Pred-Pre 84 % 84 % FEV1-Pre 2.68 Liters 2.68 Liters FEV1 Pre Liters 2.74 2.68 2.5 2.33 2.36 2.41 2.32 2.22 FEV1 % Pred % Ref 71 69 65 60 62 64 60 57 FEV1-%Pred-Pre 76 % 76 % FEV1/FVC-Pre 69 % 69 % FEV1/FVC % Ref 62 65 62 60 62 62 64 62 [id number] 1.73 L/sec 1.73 L/sec FEF 25-75% 1.25 % 1.2 % 1.07 % 1.03 % 1.08 % 1.04 % TLCPleth-Pre 5.32 Liters 5.32 Liters RVPleth-Pre 1.33 Liters 1.33 Liters DLCOunc-Pre 25.61 mL/mmHg/min 25.61 mL/mmHg/min DLCOunc-%Pred-Pre 91 % 91 % DLCOcor-%Pred-Pre 89 % 89 % 03/28/2023 12:00 05/09/2023 13:23 05/31/2023 12:00 07/04/2023 12:00 08/01/2023 12:00 09/30/2023 12:00 11/07/2023 09:40 PFT Results FVC-Pre 3.68 Liters 3.73 Liters FVC 3.98 4.01 4 3.84 3.6 FVC % Pred, % Ref 78 83 81 92 74 FVC-%Pred-Pre 80 % 81 % FEV1-Pre 2.41 Liters 2.53 Liters FEV1 Pre Liters 2.46 2.42 2.38 2.37 2.29 FEV1 % Pred % Ref 64 63 63 61 59 FEV1-%Pred-Pre 69 % 73 % FEV1/FVC-Pre 65 % 68 % FEV1/FVC % Ref 62 60 59 62 79 [id number] 1.31 L/sec 1.6 L/sec FEF 25-75% 1.16 % 1.04 % 1.14 % 1.06 % TLCPleth-Pre 5.54 Liters 5.73 Liters RVPleth-Pre 1.61 Liters 2 Liters DLCOunc-Pre 23.94 mL/mmHg/min 21.47 mL/mmHg/min DLCOunc-%Pred-Pre 86 % 77 % DLCOcor-%Pred-Pre 87 % 77 % Details More values are hidden. Newest values shown. Go to activity for more data. PULMONARY CXR - 05/09/23 IMPRESSION: Status post bilateral lung transplant. Chronic right lower lobe volume loss/atelectasis. No acute cardiopulmonary disease. CT Chest - 11/07/23 Pending official read - appears stable without acute cardiopulmonary disease 6MWT 11/07/23: 1286 feet (meters), lowest SpO2 97%, oxygen requirement: Room air 02/26/21: 1598 feet (487 meters), lowest SpO2 97%, oxygen requirement: Room air 02/22/19: 1591 feet (485 meters), lowest SpO2 99%, oxygen requirement: Room air 09/28/18 (pre-tx): 984 feet (300 meters), lowest SpO2 95%, oxygen requirement: 3 LPM CARDIOLOGY TTE - 11/07/23 Estimated RVSP would be 25 mmHg over the right atrial pressure; unable to estimate given poor IVC visualization. Atria appear normal in size. No hemodynamically significant valvular disease. No pericardial effusion. Aortic root measures mildly enlarged at 4.0 cm (1.9 cm/m2) Compared to the prior echo, aortic root measures larger. 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 Cecum: Normal appearance no mass lesions normal IIeocecal valve. 2. Ascendlng colon. Normal appearance no mass lesions. 3. Transverse colon: Normal appearance. 2 polyps were identified. One was removed with biopsy forceps completely. The other was removed removed with snare cautery technique. Both of them were brought back to the channel of the scope. 4. Descending colon: Small polyp was identlfled was removed with snare cautery technique and brought back to the channel the scope. 5. Cristóbal colon: Normal appearance minlmal dlverticular disease seen. 6. Rectum: Normal appearance no mass lesIons Internal hemorrholds were Identifled. Scope was withdrawn digital rectal exam showed no masses within the anus and a normal prostate smooth and small. Panchito will need to have another colonoscopy In 3 years. MICROSCOPIC DIAGNOSIS Transverse colon polyps, biopsy: Fragments of tubular adenoma. Fragments of fecal material. PSA - 02/26/21 2.03 Akbar Davis DO Division of Pulmonary, Critical Care & Sleep Medicine Department of Internal Medicine [facility] Images from the original note were not included. Department of Pharmacy Outpatient Transplant Note Patient: Nick Hernández Transplant date: 12/11/2018 (Lung) Date of clinic visit: 11/07/23 Assessment and Plan: Patient profile and medications reviewed and recommend: Last DEXA scan was 10/2022 showing osteoporosis despite being on alendronate x 5 years, discontinue alendronate and refer to endocrine for further management Due for the following vaccines High dose influenza RSV Estimated Creatinine Clearance: 90 mL/min (by C-G formula based on SCr of 1.02 mg/dL). Current Outpatient Medications Medication Sig acetaminophen 325 MG tablet Take 2 tablets by mouth every 6 hours as needed for mild or moderate pain. Alcohol Swabs 70 % Pads 1 Each by Unknown route 2 times daily. alendronate 70 MG tablet Take 1 tablet by mouth every 7 days. amLODIPine 5 MG tablet Take 1 tablet by mouth daily. (Patient taking differently: Take 2 tablets by mouth daily.) aspirin (RA Aspirin Adult Low Dose) 81 MG Chew Tab chewable tablet Chew 1 tablet daily. Azithromycin 250 MG tablet Take 1 tablet by mouth every Tuesday, Tuesday and Tuesday. Calcium Citrate-Vitamin D (RA Calcium Citrate Plus Vit D) 315-5 MG-MCG tablet Take 1 tablet by mouth every 12 hours. Citalopram 10 MG tablet Take 1 tablet by mouth daily. Ergocalciferol 1.25 MG (29936 UT) capsule Take 1 capsule by mouth once a week. Gabapentin 400 MG capsule TAKE 1 CAPSULE BY MOUTH EVERY MORNING, TAKE 2 CAPSULES BY MOUTH EVERY AFTERNOON and TAKE 1 CAPSULE BY MOUTH EVERY EVENING glucose blood test strips (OneTouch Ultra) Strip strip 400 strips by Instructed route 2 times daily. hydrOXYzine HCl 25 MG tablet Take 1 tablet by mouth 3 times daily as needed for Anxiety or Insomnia for up to 20 days. Lancets Misc 1 Each by Unknown route 2 times daily. magnesium oxide 400 MG tablet Take 2 tablets by mouth every 12 hours. Multiple Vitamin (multivitamin) tablet Take 1 tablet by mouth daily. Mycophenolate mofetil (CELLCEPT) 250 MG capsule Take 4 capsules by mouth every 12 hours. oxybutynin CR 10 MG Tab SR 24 HR tablet Take 1 tablet by mouth daily. Pantoprazole [address] tablet DR Take 1 tablet by mouth 2 times daily. prednisoLONE acetate 1 % Suspension ophthalmic suspension Place 1 drop in right eye 2 times daily. predniSONE 5 MG tablet Take 1 tablet by mouth daily. Rosuvastatin 10 MG tablet Take 1 tablet by mouth daily. SITagliptin (Januvia) 100 MG tablet Take 1 tablet by mouth daily. Sulfamethoxazole-trimethoprim 800-160 MG per tablet Take 1 tablet by mouth three times a week. Tacrolimus (PROGRAF) 0.5 MG capsule Take 2 capsules by mouth daily every morning AND 1 capsule every evening. Current immunosuppression regimen as listed in [facility] medication list: Current Immunosuppressive Medication(s) Immunosuppressive Agents Mycophenolate mofetil (CELLCEPT) 250 MG capsule Take 4 capsules by mouth every 12 hours. Tacrolimus (PROGRAF) 0.5 MG capsule Take 2 capsules by mouth daily every morning AND 1 capsule every evening. Glucocorticosteroids predniSONE 5 MG tablet Take 1 tablet by mouth daily. Maintenance Immunosuppression Current regimen: Antirejection Medication Dose Comments Tacrolimus Goal: 4-6 /05 Mycophenolate mofetil 1000 mg BID Prednisone 5 mg daily Lab Results Component Value Date/Time TACROLIMUS LEVEL(TROUGH),MANUAL ENTER 4.5 10/26/2023 0835 TACROLIMUS LEVEL(TROUGH),MANUAL ENTER 4.6 09/21/2023 0815 TACROLIMUS LEVEL(TROUGH),MANUAL ENTER 7.1 07/28/2023 0915 Tacrolimus 12.8 04/10/2019 0822 Tacrolimus 10.3 04/05/2019 1210 Tacrolimus 8.4 03/13/2019 0748 Tacrolimus, Trough 5.7 11/07/2023 0906 Tacrolimus, Trough 4.7 05/21/2023 0856 Tacrolimus, Trough 4.2 05/20/2023 0751 Tacrolimus,Random 3.8 (L) 05/16/[id number] Infection Prophylaxis, Monitoring, & Treatment Current regimen: Antimicrobial Medication Dose Planned stop date & comments TMP-SMZ (Bactrim) 800mg-160mg (DS) MWF Lab Results Component Value Date CMVPCR Not Detected 10/26/2023 CMVPCR Nor detected 09/21/2023 CMVPCR Not detected 07/28/2023 Name: Saloni Sheppard RPH Date/Time: 11/07/2023 2:51 PM documented in this encounter [facility] 11-07-2023 Instructions Akbar Davis DO - 11/07/2023 2:00 PM EST You were seen today in [facility] for a Post-transplant visit. Medication changes today We made no changes to your medications today. Other orders Colonoscopy due Bone Density Study Vaccinations due Health Maintenance Screenings due Please call our office at [phone], if you have any questions or concerns documented in this encounter [facility] 05-21-2023 History of Present illness Narrative Images from the original note were not included. LUNG TRANSPLANT CONSULT NOTE Referring provider: Sanam Akers Nick Hernández is a 63 y.o. male s/p lung transplantation. IMPRESSION AND RECOMMENDATIONS Drug Levels Lab Results Component Value Date TACROLIMUS 4.7 05/21/2023 TACROLIMUS 4.2 05/20/2023 TACROLIMUS 2.7 (L) 05/19/2023 Lab Results Component Value Date TACROTRGHMAN 5.4 03/22/2023 TACROTRGHMAN 5.0 02/22/2023 TACROTRGHMAN 5.4 01/24/2023 Transplant Bilateral lung transplant (12/11/18) for COPD (Dr. Reyna) Allograft function: declining - Reference FEV1 = 2.88 L (reset due to weight gain 01/31/20); 80% = 2.30 Immunosuppression, high risk meds, therapeutic drug monitoring PLAN: - Tacrolimus: Goal trough: 4-6; - Mycophenolate: 1000mg bid - Prednisone: 5 mg daily - TITUS Prophylaxis: azithromycin Respiratory PLAN: - Doing well post extubation ID CMV D-/R- EBV D+/R+ Vaccinations Influenza: Jul 2021 per patient PCV13: 05/09/18 COVID-19: 01/09/21, 02/06/21 (Moderna); 10/16/21; 08/13/22 PLAN: PPSV23 due, please administer inpatient. Prophylaxis: - Bactrim 1 DS QMWF CV CAD, diffuse HTN PLAN: - ASA, Coreg, Norvasc Renal / Mg wasting due to CNI PLAN: - Monitor BUN/Cr - Mg supplementation GI GERD PLAN: - PPI Heme Anemia PLAN: - Monitor CBC Endocrine Osteoporosis Prediabetes PLAN: - Ca / Vit D - sitagliptin Musculoskeletal / Skin PLAN: - Maintain activity level - Annual dermatologic evaluation Neuro/Psych Admitted with encephalopathy of undetermined etiology which improved. PLAN: - Utox positive for Marijuana - autoimmune encephalopathy, paraneoplastic panels: pending. > Heavy metals, lyme pending - CTA with basilar artery high grade stenosis. Awaiting neuro's recs. - Will need outpatient repeat MRI Brain w/ and w/o contrast, recommend adding on neuroquant analysis to evaluate for a potential neurodegenerative process - Appreciate psych recs: Depression versus a neurocognitive disorder (consider frontotemporal dementia). He will need further outpatient cognitive workup. Start Celexa to treat depression component. Recommend outpatient counseling as well. - On gabapentin Colonoscopy and Bone densitometer due outpatient POST TRANSPLANT HISTORY - planned Bilateral lung transplantation (12/11/18) for COPD (Dr. Reyna) - Induction with Basiliximab on Day 0 and 4 - PGD @ T24: 0 - PGD @ T48: 0 - PGD @ T72: 0 - Graft function - Reference FEV1 = 2.88 L (reset due to weight gain 01/31/20); 80% = 2.30 - Status - ABO O positive - CMV: Donor NEG Recipient NEG - EBV: Donor POS Recipient POS - Infection: - Donor cultures: S aureus, C albicans - Recipient cultures: S pseudointermedius - 12/12/18 BAL: Metapneumovirus - Ribavirin + prednisone taper - 12/26/18 BAL: Metapneumovirus - Ribavirin + prednisone taper - 03/13/19 BW: S epidermidis, S lugunensis - 04/10/19 BAL: E cloacae - 02/04/21 Thigh bx: Herpesvirus - valacyclovir x 7 days - Transbronchial biopsies: - 02/06/19: A0B0. BALT hyperplasia - 03/13/19: A0B1, aspirated vegetable material - 03/13/19 EBBx: granulation tissue/inflammatory polyp - 04/10/19 EBBx: exuberant granulation tissue with suppurative inflammation - 05/22/19: A0Bx - 07/17/19 EBBx: granulation tissue - 09/03/19 TBBx: A0Bx, focal stenosis (ISHLT stenosis c, c). 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); asymptomatic - Nephrolithiasis s/p lithotripsy - Airway issues: benign growth (granulation tissue), focal moderate BI stenosis (ISHLT stenosis c,c) - - Severe R hip arthritis s/p R COTY (03/06/20) - Lumbar compression fractures s/p vertebroplasties - H/o Bronchial granulation tissue requiring repeat excision; RBI stenosis (ISHLT c, c) - Erectile Dysfunction - 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 Taken to OSH for agitation and confusion. He became unresponsive at arrival to the ED and per report demonstrated seizure like activity. He was intubated and received Keppra load and Propofol and Versed gtt along with the Fentanyl gtt. He was transferred to [facility] ICU for further management. At OSH Procal 0.06. Troponin < 0.012. Urinalysis unremarkable. At the OSH, bronch and BAL were performed, with BAL and LRCx studies pending. RVP and MRSA nares reportedly negative. LP obtained, glucose 62, protein 83, CSF studies pending. MRI Brain obtained, significant for diminished cerebral volume and evidence of chronic white matter small vessel ischemic change. Per pt's over the past 1-2 years patient's behavior has been angry and more erratic. Per lung mail service coordinator notes this has been going on longer. The describes his changes as him getting more angry and forgetful. 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 Earlier on day of admission to OSH ([facility]) the noticed he was acting himself, but after climbing out of the well and started having SOB and became agitated and altered. He is doing well and wants to go home. He still needs the specific repeat MRI and follow up all pending labs along with psych recs at discharge. . REVIEW OF SYSTEMS All other systems reviewed and are negative for pertinent findings except as mentioned in the HPI/Interval History. MEDICATIONS AND ALLERGIES Current Outpatient Medications Medication Sig Last Dose Start Date End Date Authorizing Provider Citalopram 10 MG tablet 10 mg, Oral, DAILY 05/22/23 08/20/23 Gabriel AlzaeimALEX/CARLOZ hydrOXYzine HCl 25 MG tablet 25 mg, Oral, 3 TIMES DAILY NEEDED 05/21/23 06/10/23 Gabriel Alzaeim MB/[facility] acetaminophen 325 MG tablet Take 2 tablets by mouth every 6 hours as needed for mild or moderate pain. 05/03/22 Nick Lopez MD Alcohol Swabs 70 % Pads 1 Each, Unknown, 2 TIMES DAILY 04/29/22 Akbar Davis DO alendronate 70 MG tablet 70 mg, Oral, EVERY 7 DAYS 07/01/22 Akbar Davis DO amLODIPine 5 MG tablet 5 mg, Oral, DAILY 07/30/22 Nick Lopez MD aspirin (RA Aspirin Adult Low Dose) 81 MG Chew Tab chewable tablet 81 mg, Oral, DAILY 09/12/22 Nick Lopez MD azithromycin 250 MG tablet 250 mg, Oral, EVERY M, W & F 09/15/22 09/15/27 Stephania De León, INTERIOR H[employer]IC[employer] Calcium Citrate-Vitamin D 315-200 MG-UNIT tablet 1 tablet, Oral, EVERY 12 HOURS 07/01/22 Akbar Davis DO carveDILOL 25 MG tablet 25 mg, Oral, 2 TIMES DAILY 03/17/23 Nick Lopez MD ergocalciferol 1.25 MG (85137 UT) capsule 50,000 Units, Oral, WEEKLY 07/01/22 Akbar Davis DO Gabapentin 400 MG capsule TAKE 1 CAPSULE BY MOUTH EVERY MORNING, TAKE 2 CAPSULES BY MOUTH EVERY AFTERNOON and TAKE 1 CAPSULE BY MOUTH EVERY EVENING 10/28/22 04/27/23 Nick Lopez MD glucose blood test strips (OneTouch Ultra) Strip strip 400 strips, Instructed, 2 TIMES DAILY 04/29/22 Akbar Davis DO Lancets Misc 1 Each, Unknown, 2 TIMES DAILY 12/22/22 Christelle Espino MD magnesium oxide 400 MG tablet 800 mg, Oral, EVERY 12 HOURS 07/07/22 Nick Lopez MD multivitamin (multivitamin) tablet 1 tablet, Oral, DAILY 07/01/22 Akbar Davis DO mycophenolate mofetil (CELLCEPT) 250 MG capsule 1,000 mg, Oral, EVERY 12 HOURS 06/02/22 Nick Lopez MD oxybutynin CR 10 MG Tab SR 24 HR tablet 10 mg, Oral, DAILY 04/23/22 Historical Provider pantoprazole [address] DR 40 mg, Oral, 2 TIMES DAILY 07/30/22 Nick Lopez MD prednisoLONE acetate 1 % Suspension ophthalmic suspension 1 drop, Right Eye, 2 TIMES DAILY 05/03/23 Historical Provider predniSONE 5 MG tablet 5 mg, Oral, DAILY 03/04/23 Nick Lopez MD Rosuvastatin 10 MG tablet 10 mg, Oral, DAILY 03/17/23 Nick Lopez MD SITagliptin (Januvia) 100 MG tablet 100 mg, Oral, DAILY 07/01/22 Akbar Davis, sulfamethoxazole-trimethoprim 800-160 MG per tablet 1 tablet, Oral, THREE TIMES WEEKLY 09/13/22 09/13/27 Nick Lopez MD tacrolimus (PROGRAF) 0.5 MG capsule Take 1 capsule by mouth daily every morning AND 1 capsule every evening. 06/02/22 Nick Lopez MD Allergies: Allergies Allergen Reactions Breo Ellipta [Fluticasone Furoate-Vilanterol] Shortness of Breath Codeine Hives PHYSICAL EXAM BP 139/80 (BP Location: Right arm, BP Position: Lying) Pulse 65 Temp 97.6 F (36.4 C) (Oral) Resp 22 Ht 1.829 m (6') Wt 90.4 kg (199 lb 3.2 oz) Comment: standing weight SpO2 95% BMI 27.02 kg/m Smoking Status Former Body mass index is 27.02 kg/m . Wt Readings from Last 3 Encounters: 05/21/23 90.4 kg (199 lb 3.2 oz) 05/09/23 95.6 kg (210 lb 11.2 oz) 11/08/22 99.1 kg (218 lb 8 oz) GENERAL: Well-developed male. Sitting in chair. On NC. No distress HEENT: Pupils equal, round. NECK: Neck supple. No lymphadenopathy. No thyromegaly. No stridor. CARDIOVASCULAR: Regular rate and regular rhythm. No murmurs, rubs or gallops. Normal S1 and S2. PULMONARY: . No wheezing, rhonchi or rales. GASTROINTESTINAL: Soft, non-tender, non-distended. Bowel sounds present. MUSCULOSKELETAL: No cyanosis, clubbing. No joint effusions or erythema. SKIN: Warm and dry. No jaundice or rash. Trace edema NEUROLOGIC: intubated. Perrla. PSYCHIATRIC: relates that he is in pain. A little irate DATA REVIEW CBC Lab Results Component Value Date WBC 5.77 05/21/2023 HGB 13.1 (L) 05/21/2023 HCT 41.0 05/21/2023 PLATELET 190 05/21/2023 MCV 90.1 05/21/2023 CMP Lab Results Component Value Date SODIUM 141 05/21/2023 POTASSIUM 3.8 05/21/2023 CHLORIDE 106 05/21/2023 CO2 21 05/21/2023 BUN 16 05/21/2023 CREATSERUM 1.03 05/21/2023 GLUCOSE 134 (H) 05/21/2023 Lab Results Component Value Date ALT 15 05/16/2023 AST 19 05/16/2023 GGT 29 03/22/2023 ALKPHOS 48 05/16/2023 BILITOTAL 0.4 05/16/2023 BILIDIRECT 0.1 05/16/2023 Lab Results Component Value Date CMVPCR Not detected 03/22/2023 Imaging/Radiological Studies I have personally reviewed and interpreted the radiographic data in IS. PFT Results 01/28/2021 12:00 04/01/2021 12:00 04/29/2021 12:00 05/27/2021 12:00 06/29/2021 11:00 PFT Results FVC-Pre 3.84 Liters FVC 4.38 4.07 4.33 4.5 FVC % Pred, % Ref 85 79 84 88 FVC-%Pred-Pre 83 % FEV1-Pre 2.36 Liters FEV1 Pre Liters 2.6 2.44 2.66 2.57 FEV1 % Pred % Ref 66 63 68 66 FEV1-%Pred-Pre 67 % FEV1/FVC-Pre 61 % FEV1/FVC % Ref 59 60 61 57 [id number] 0.99 L/sec FEF 25-75% 1.21 % 1.03 % 1.16 % 0.93 % TLCPleth-Pre 5.98 Liters RVPleth-Pre 1.84 Liters DLCOunc-Pre 25.27 mL/mmHg/min DLCOunc-%Pred-Pre 89 % DLCOcor-%Pred-Pre 93 % 07/29/2021 12:00 09/21/2021 12:00 10/29/2021 12/01/2021 12:00 12/28/2021 12:00 PFT Results FVC-Pre 4.47 Liters FVC 4.23 4.08 4.43 3.96 FVC % Pred, % Ref 82 79 86 77 FVC-%Pred-Pre 96 % FEV1-Pre 2.81 Liters FEV1 Pre Liters 2.6 2.55 2.77 2.46 FEV1 % Pred % Ref 67 65 71 63 FEV1-%Pred-Pre 79 % FEV1/FVC-Pre 63 % FEV1/FVC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 0259 Or Potassium chloride 10 mEq in sterile water 100 ml premix IVPB 10 mEq Intravenous As directed PRN Jesika Ireland MD predniSONE (DELTASONE) tablet 5 mg 5 mg Oral Daily Jesika Ireland MD 5 mg at 05/19/23 0846 Sodium chloride 0.9% IV solution 250 mL 250 mL Intravenous PRN Jesika Ireland MD 20 mL/hr at 05/19/23 0800 Rate Verify at 05/19/23 0800 sodium phosphate 30 mmol in Sodium chloride 0.9%, with overfill 285 mL (total volume) IVPB 30 mmol Intravenous As directed PRN Jesika Ireland MD Stopped at 05/19/23 0318 Or sodium phosphate 45 mmol in Sodium chloride 0.9%, with overfill 290 mL (total volume) IVPB 45 mmol Intravenous As directed PRN Jesika Ireland MD Stopped at 05/18/23 1007 Sulfamethoxazole-trimethoprim (BACTRIM DS) 800-160 MG per tablet 1 tablet 1 tablet Oral Once per day on Tue Jesika Ireland MD 1 tablet at 05/18/23 1226 Tacrolimus (PROGRAF) capsule 1 mg 1 mg Oral Q12H Christelle Espino MD 1 mg at 05/19/23 0949 Physical Examination Temp: [97.7 F (36.5 C)-98.8 F (37.1 C)] 98 F (36.7 C) Pulse (Heart Rate): [71-100] 100 Resp Rate: [15-41] 35 BP: (131-175)/(65-97) 149/87 O2 Sat (%): [92 %-98 %] 96 % Body mass index is 27.63 kg/m . General:Sitting comfortably in bedside chair; in no acute distress. HENT: Normal oropharynx and mucosa. Normal external appearance of ears and nose. Neck: Supple, no pain or tenderness Neurological Examination Mental status: awake and alert; oriented to person, place, year, and month; good attention. Normal mood and affect. Normal insight into condition. Fund of knowledge intact. Speech/language: fluent; comprehension intact; object naming intact; repetition intact. Cranial nerves: CN II: Visual schulz intact to confrontation. PERRL. Normal conjunctivae and lids. loom changer III, IV and : extraocular movements intact. No nystagmus. CN V: Facial sensation is intact to light touch. CN VII: Facial strength normal with symmetric movement. CN VIII: Hearing is grossly intact. CN IX and X: Soft palate elevates symmetrically in the midline CN XI: Shoulder shrug and sternocleidomastoid strength (R/L) 5/5 CN XII: Tongue is midline with normal movement; no fasciculations. Motor: Normal bulk and tone. No pronator drift. SA EE EF WE WF DI HF KE KF DF PF Right 5 5 5 5 5 5 5 5 5 5 5 Left 5 5 5 5 5 5 5 5 5 5 5 Reflexes: Right Left Comments Biceps 2+ 2+ Triceps 2+ 2+ Brachioradialis 2+ 2+ Patellar 2+ 2+ Achilles 2+ 2+ Pratt Babinski Coordination: [id number] intact bilaterally. Sensation: Comments Light touch Intact throughout Pin prick Temperature Vibration Proprioception Gait: Normal stride length, width. -ve romberg Laboratory data: Bun/Creat/Cl/CO2/Glucose: 11/0.84/110/21/122 (05/19 0025) Na/K+/Phos/Mg/Ca: 143/3.5/2.9/1.9/-- (05/19 002) WBC/Hgb/Hct/Plts: 8.89/12.7/38.6/186 (05/19 25) CK 72 Ammonia 32 Folate 30.85 B12 630 TSH 0.567 -ve: Crypto, RPR, HIV, lyme Pending serum: MMA, B1, Tox, Heavy metal screen, AIE panel UDS +ve MJ OSH LP: CSF lumbar puncture, clear CSF CSF Glucose 62/ Protein 83 , WBC 2, RBC 28 -ve biofire Pending CSF studies: [place], VDRL, Lyme, Immunophenotyping, Histo, Blasto, EBV, LOUISE/BK, AIE panel, Paraneoplastic panel Imaging/diagnostic procedures: cvEEG 05/17-05/19: Final read pending. 05/17-05/18 read: This is an abnormal EEG due to the presence of moderate diffuse slowing indicative of a moderate diffuse encephalopathy. Previously recorded GPDs have largely resolved. No clear localized features, clinical events or electrographic seizures recorded, clinical correlation recommended. CTH 05/17: unremarkable CTA H/N 05/17: Nonvisualization of the basilar artery and the distal vertebral arteries which could be related to high-grade stenosis. Prominent bilateral posterior communicating arteries likely supplying the posterior circulation. MRI brain wo contrast at OSH (imaging not currently available): IMPRESSION: 1. Diminished cerebral volume and evidence of chronic white matter small vessel ischemic change without acute intracranial abnormality. 2. Paranasal sinus disease. 3. Small bilateral mastoid effusions. cEEG at OSH on 05/16/23: This continuous EEG with video is abnormal. A persistent generalized burst-attenuation pattern is seen as evidenced by brief generalized bursts of fast activity intermixed with brief intervals of generalized attenuation. No clearcut epileptiform activity nor seizures are seen. The findings are consistent with a [id number] global encephalopathy nonspecific as to etiology and confounded by sedation. Impression: Nick Hernández is a 63 y.o. male with history of COPD s/p BL lung transplant (11/2018; immunosuppressed with Tacrolimus, Mycophenolate, Prednisone), CAD, HTN, chronic back pain who presented as transfer from [facility] for AMS, respiratory distress and seizure like activity. Patient is essentially back to baseline at this time with an unremarkable/non-focal neurologic exam. believes he is still slightly confused but he demonstrates no significant cognitive deficits on assessment. Given his rapid improvement off all AEDs and without empiric steroid treatment, very low clinical suspicion for an autoimmune/paraneoplastic encephalitis. He also underwent ~72 hours of cvEEG monitoring (48h here, 24h OSH) without any epileptiform activity captured making seizure significantly less likely as well. Given his report of feeling SOB/overheated prior to event, would consider convulsive syncope vs PNEE (with the latter particularly intriguing with his reported personality changes). ICI toxicity is still a consideration but again less likely with such a rapid improvement. Recommendations: - I have discontinued cvEEG - MRI Brain w/ and w/o contrast, recommend adding on neuroquant analysis to evaluate for a potential neurodegenerative process - Will continue to follow up pending studies Patient staffed with Dr. Simon Thank you for the consultation. If you have any further questions, please contact the neurology consult team B resident. Binh Carrero MD PGY-4 Associated attestation - Margaret Simon DO - 05/19/2023 8:34 PM EDT I saw and personally examined the patient today with the resident/fellow. I discussed the findings and therapeutic plan with the resident/fellow. I agree with the history, physical examination, and medical decisions as outlined. MICU Attending Statement I have seen, examined and discussed Mr. Hernández with the MICU team on 05/19/2023. I have independently reviewed today's labs as per housestaff note and in EHR. I reviewed and edited the note by the housestaff and agree with the physical exam findings, assessment and plan. Chief Complaint: multiple BMs HPI/ROS as per resident note. No acute events overnight. More alert. extubated yesterday, doing well, tolerating diet. Multiple BMs in past day. with questions about tacrolimus and current memory issues. Oriented, but confused about social security deposit and other IADLs per . She feels his mental status changes may have started with steroid eye drops started for chemical eye burn. On my exam, I find he is awake, alert, conversant, mildly confused at times, no distress sitting up in chair. Heart RRR. Lungs clear; no rales, rhonchi, wheezes. Abdomen soft, nontender, nondistended, hypoactive bowel sounds. No major peripheral edema. No myoclonus or seizure-like activity. Imaging personally reviewed; CXR shows ETT in place, elevated R hemidiaphragm Lab Results Component Value Date TACROLIMUS 2.7 (L) 05/19/2023 TACROLIMUS 16.2 (H) 02/26/2021 TACROLIMUS 16.2 (H) 12/06/2019 Lab Results Component Value Date TACROTRGHMAN 5.4 03/22/2023 TACROTRGHMAN 5.0 02/22/2023 TACROTRGHMAN 5.4 01/24/2023 Assessment/Plan: as per resident's note. In brief, 1. Acute encephalopathy with concern for status epilepticus on admission; basilar/vertebral artery stenoses: infectious, heavy metals, autoimmune, paraneoplastic, lyme pending. BP goal <140/90 due to stenoses. EEG completing this AM, appreciate Neurology. MRI after EEG completed. Considering Psychiatry consult. 2. Acute respiratory failure due to encephalopathy: resolved 3. History of bilateral lung transplant 2019 for COPD with chronic R hemidiaphragm paralysis: appreciate Transplant Pulmonary input. Immunosuppression her their plan. Monitor tacrolimus levels. 4. Acute anemia - multifactorial: stable; monitoring 5. Chronic pain: gabapentin, Lidocaine patch (no heat over this), Tylenol PRN (may consider scheduling) 6. Recent Eye burn with question of adverse reaction to steroid eye drops per : Ophthalmology consult Stable for transfer out of ICU. Shagufta North MD, MSc Attending (Amusement Park [employer]ic), Pulmonary/Critical Care Acute Occupational Therapy Treatment Prior to Admission AM-PAC Score: PRIOR LEVEL AM-PAC Activity Raw Score: 24 PRIOR LEVEL AM-PAC Mobility Raw Score: 24 Current AM-PAC score(s): CURRENT AM-PAC Activity Raw Score: 19 Based on the above AM-PAC score(s), and OT clinical judgment, discharge destination recommendation is: Home Barriers to discharge home: Patient needs assistance with self-care for medical condition (see note below), Patient needs assistance with ADLs, Patient needs assistance with functional mobility Mobility equipment available at home: none used ADL equipment available at home: grab bars Equipment recommendations for discharge: shower chair Current therapy frequency recommendation(s) in acute: 3 times a week Activity Recommendations for outside of rehab session: Up to chair daily, ambulate to bathroom Precautions and Weightbearing Status: OT Existing Precautions/Restrictions: fall Telemetry Patient Safety Communication Prior to Visit: Nursing, Rehab team, Physician Subjective: Pt seated in arm chair upon arrival agreeable and motivated to participate in OT session. Pain: General Pain Documentation (Adult, OB, Peds) Presence of Pain: denies pain/discomfort Presence of Pain Score (Auto-calculated): 0 Objective/Observation: Vitals/Vitals Responses to Treatment: VSS. No overt signs or symptoms of distress. O2 Device: room air Vision Screen Currently wearing corrective lenses: No Visual Impairments Observed?: No Speech Speech: no gross deficits noted Successful Methods (Communication Strategies): verbal speech Hearing Hearing: no gross deficits noted Cognition Overall Cognitive Status: Within Functional Limits Arousal/Alertness: Appropriate responses to stimuli Orientation Level: Oriented X4 Following Commands: Follows all commands and directions without difficulty Safety Judgment: Good awareness of safety precautions Awareness of Errors: Good awareness of errors made Deficits: Fully aware of deficits Attention Span: Appears intact Memory: Appears intact Problem Solving: Able to problem solve independently ADL Assessment/Intervention: Eating Assistance: Grooming Assistance: Set up supervision Grooming Location: standing at sink Grooming Deficit: Retrieval of items Grooming Skilled Rationale (Verbal/Tactile/Visual/Demonstrati on): Setup Grooming Intervention/Details: Pt completed grooming tasks including oral hygiene and cleaning dentures while standing at sink with setup of items. Pt was combing EEG residue out of hair upon arrival without difficulty Bathing Assistance: UE Dressing Assistance: LE Dressing Assistance: Toilet Assistance: Extremity Assessments: See OT Evaluation flowsheet for Extremity Measurement updates. Balance: Sitting Balance Static Sitting-Level of Assistance: Independent Dynamic Sitting-Level of Assistance: Supervision Skilled Rationale: Verbal cues Sitting Balance Skilled Intervention/Details: No loss of balance while seated unsupported Standing Balance Static Standing-Level of Assistance: Supervision Dynamic Standing-Level of Assistance: Stand-by assist Standing-Balance Support: No upper extremity supported Skilled Rationale: Verbal cues, Cues for increased safety Standing Balance Skilled Intervention/Details: No overt loss of balance during static or dynamic standing tasks. No UE assist for balance Transfer Assessment/Intervention: Sit to Stand Transfer Williams Level: Sit->Stand: supervision Assistive Device: Sit->Stand: armed chair Skilled Rationale: Verbal cues, Cues for increased safety Skilled Intervention/Details: Sit->Stand: x 2 from arm chair; Cues for initiation Stand to Sit Transfer Williams Level: Stand->Sit: supervision Assistive Device: Stand->Sit: armed chair Skilled Rationale: Verbal cues, Cues for increased safety Skilled Intervention/Details: Stand->Sit: x 2 to arm chair; Cues for hand placement and controlled descent with good follow through Functional Mobility: Functional Mobility Williams Level: Functional Mobility/Gait: stand-by assist Functional Mobility Distance: Distance needed for limited community mobility Functional Mobility Deficits: Generalized weakness Functional Mobility Skilled Rationale: Verbal cues Skilled Intervention/Details - Functional Mobility/Gait: Pt completed functional mobility within room and hallway without an AD + assist to manange IV pole with portable telemetry for up to 6 minutes at a time. No loss of balance or shortness of breath observed Outcome Score(s): CURRENT [facility] Daily Activity Inpatient Short Form Putting on/Taking Off Lower Body Clothin - A Little Assistance Bathin - A Little Assistance Toiletin - A Little Assistance Putting on/Taking Off Upper Body Clothin - A Little Assistance Groomin - A Little Assistance Eatin - No Assistance CURRENT [facility] Activity Raw Score: 19 CURRENT [facility] Activity Functional Limitation/Modifier: 42.80% Currently Impaired in Daily Activity - CK Assessment & Plan: Pt is progressing toward stated goals. Pt continues to be limited by functional deficits including self-care, functional mobility, endurance/functional activity tolerance, and insight to deficits. Pt continues to require skilled OT services to address functional deficits to achieve highest practical level of safety and independence with daily tasks and routine to meet OT goals. Patient Instruction/Education this session: Patient Instruction: Role of OT and OT plan of care Plan for next session: Standing balance/tolerance, Acute OT Goals Plan of Care by Ángel Jimenez OT at 05/19/2023 9:38 AM Version 1 of 1 Problem: OT - ADLs Goal: Grooming Description: Pt will complete grooming in standing with Mod I for improved ability to safely complete ADLs. Outcome: Progressing Toward Goal Problem: OT - Endurance Goal: Endurance Functional Task Standing Description: Pt will engage in standing functional task for 8 minutes with supervision to improve activity tolerance necessary for safe ADL completion at recommended discharge destination. Outcome: Progressing Toward Goal Problem: OT - Transfers Goal: Transfers Toilet/Bedside Commode Description: Pt will transfer to/from toilet/BSC with supervision for improved ability to safely complete ADLs. Outcome: Progressing Toward Goal OT treatment consisted of the following to work and progress towards the above goal(s): OT Evaluation and Treatment Time Self Care/Home Management (ADLs) Time Entry: 10 Therapeutic Activity Time Entry: 19 Treating Therapist: Ángel Jimenez OT Additional Details: Co-evaluation/co-treatment performed?: No simultaneous skilled care performed I used facemask, protective eye shield, and gloves in today's patient interaction. Patient location at end of session: chair Alarms on at end of session: none and RN aware Needs in reach and all medical lines, tubes, and drains intact. Time In: 0938 Time Out: 1007 Total Visit Time: 29 minutes Total Treatment Time (skilled, billable minutes): 29 minutes Upon discontinuation of Acute Care Occupational Therapy Services or patient discharge from the hospital this note represents the current Occupational Therapy Discharge Summary. MICU DAILY PROGRESS NOTE IDENTIFYING INFORMATION PATIENT: Nick Hernández ADMIT DATE: 05/16/2023 TIME OF EVALUATION: 05/18/2023 4:31 PM HOSPITAL STAY: LOS: 2 days SUBJECTIVE/INTERVAL HISTORY No Acute Overnight Event. Patient was extubated this morning. He was seen sitting in chair. A&Ox4. He reports having back pain. Denies chest pain, SOB, N/V, diarrhea, constipation, melena and hematochezia. Last BM was 05/17. Barriers to discharging to floor: PT/OT recommendations: Anticipate discharge to home ASSESSMENT AND PLAN In summary, Nick Hernández is a 63 y.o. male with PMH of bilateral lung transplant, COPD, HTN, DM. Presented for acute mental status changes, respiratory failure, possible seizure activity in setting of a year of progressive personality changes. Today patient is doing well on room air, is more alert and oriented, was able to come down on sedation, extubate, and remove restraints. Infection panels have been negative suggesting non-infectious process. Updates today: - Extubated today - EEG monitoring in progress - Discontinued meropenem - restarted home Coreg Acute encephalopathy C/f status epilepticus Subjective hx from of worsening mental status . CT head negative for acute process at OSH. MRI at [facility] showed diminished cerebral volume w/o acute changes. LP obtained at outside hospital, they agreed to run additional labs for us. Current LP and cultures negative, low suspicion for infectious process meningitic emperic coverage with meropenem, acyclovir, ampicillin D/C. Patient is far more alert / oriented today, no seizure activity overnight or on EEG. - Neurology consulted, following > Undergoing EEG today - will continue for full 48h > Consider psych consult per transplant and neuro recs > autoimmune encephalopathy, paraneoplastic panels: pending. > Heavy metals, lyme pending Gust - agreed to fax any additional infectious work ups > lyme AB: pending > HIV1/2, Syphilis, MMA: neg > CTH unremarkable >Will order MRI brain and spine after EEG monitoring - meningitic coverage initially started with meropenem; acyclovir, ampicillin. Antibiotics (except ppx) discontinued due to low concerns for infxn Acute hypoxic respiratory failure, intubated for airway protection S/p bilateral lung transplant for end stage COPD 12/11/2018 Chronic R hemidiaphragm paralysis B/l lung transplant at [facility] on 12/11/2018, follows with Dr. Espino at [facility]. 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 Bronch with BAL performed at OSH --> PNA PCR, respiratory culture negative. Limited viral respiratory panel negative at OSH including covid, human metapneumo, paraflu. Procal negative 0.06 at OSH. Patient had not been taking transplant medications since admission, had been holding Tacrolimus, mycophenolate due to concern for ISAIAS at [facility]. Patient extubated this morning and doing well on room air. - Restarted Tacro and Cellcept on 05/18 - goal tacro level tomorrow morning (tacro goal 4-6) - Transplant team following- recs appreciated Concerns for basilar artery and vertebral artery stenosis CTA brain/neck demonstrate possible high grade stenosis of the basilar artery and distal vertebral arteries - BP goal <140/90 HTN Home regimen: amlodipine 5 mg and coreg 25 mg BID - Restarted Coreg at reduced dose of 12.5 mg BID Chronic back pain - Tylenol PRN - Gabapentin 400 mg TID - Lidocaine patch - Heatpack Hyperglycemia History of prediabetes Last a1c 5.9%. Home regimen includes sitagliptin. - SSI - Holding home delvis ISAIAS - resolved Baseline Cr ~1.0-1.1, on admission at OSH was noted at 1.6. Suspect prerenal given resolution with IVF at OSH. Urine lytes and osms obtained at OSH with FeNa 0.7% at that time. Patient creatinine has trended down with fluids. - daily chem Acute normocytic anemia Baseline hgb ~14. Less concern for acute bleed at this time given hemodynamic instability, absence of melena or other red flag symptoms. Transfusion goals hgb >7, plt >50 or >10 in the setting of acute bleed. - daily cbc, trend Access: [x] PIV [] PICC [] Central [] NG [] PEG [] A-line [] HD [] Other: Checklist: CAM-ICU: negative Sedation: [] Fentanyl [] Propofol [] Precedex [x] None IVF: No Diet/Nutrition: DIET CARB CONTROLLED DVT ppx: Lovenox GI Prophylaxis: pantoprazole Bowel regimen: []Senna []Miralax []Milk of Magnesia []Suppository PRN Glycemic Control: []Basal [x]SSI Lispro []SSI regular [] None Restraints: No SBT?: Not intubated Mobility: Working with PT/OT Family updated? Yes Code Status: Full Code Disposition: Continue inpatient management This plan was discussed on rounds with the attending physician, Colleen Richardson MD . Plan preliminary until cosigned/attested by attending physician. Fior Soliman DO, PhD PGY-1, Resident, Department of Internal Medicine [facility] Pager [phone] OBJECTIVE FINDINGS Vital Signs (24hrs): Temp: [97.5 F (36.4 C)-98.7 F (37.1 C)] 98.7 F (37.1 C) Pulse (Heart Rate): [51-83] 83 Resp Rate: [7-30] 30 BP: (137-173)/(71-84) 137/73 O2 Sat (%): [95 %-100 %] 95 % I/O last 3 completed shifts: In: 1859.4 [P.O.:440; I.V.:276; NG/GT:535.5; IV Piggyback:607.9] Out: 2150 [Urine:2150] Physical Examination: General: No acute distress. Awake and conversant. Eyes: Normal conjunctiva, anicteric. Round symmetric pupils. ENT: Hearing grossly intact. No nasal discharge. Neck: Neck is supple, FROM CV: RRR, Normal heart sounds, no murmurs. . Pulm: CTAB. Respirations are non-labored. No wheezes, rales or rhonchi. Abdomen: Soft, non-tender and non-distended. No rebound or guarding. MSK: No lower extremity edema Skin: Warm and dry. No rashes or ulcers Psych: Alert and oriented. Cooperative, Appropriate mood and affect, Normal judgment. Neuro: Able to move all 4 limbs. No gross deficits noted. DIAGNOSTIC RESULTS/PROCEDURES Labs-ABGs Labs-CBC WBC/Hgb/Hct/Plts: 8.57/12.7/39.4/158 (05/18 112) Labs-Chem 7(PMC) Bun/Creat/Cl/CO2/Glucose: 10/0.63/109/22/157 (05/18 112-05/18 1201) Na/K+/Phos/Mg/Ca: 140/3.8/1.5/2.3/-- (05/18 112) Labs-Coags Associated attestation - Colleen Richardson MD - 05/19/2023 9:34 AM EDT Attending addendum: I have independently seen and examined the patient. I independently reviewed the medical records, labs & imaging studies. I discussed the findings and management plan and agree with the assessment and plan as outlined above with the following additions/amendments: Nick is a 63 yr old M with a pmh of bilateral lung transplant in 2019 (for COPD), CAD, HTN, DM that presented from OSH with AMS ultimately requiring intubation and transfer to [facility] for further evaluation. The Pt reportedly has been having personality changes over the last several months (though after further discussion with transplant team it has been years), with changes in temperament, confusion, and some perseveration over certain issues.On 05/15 the Pt was pulling up water from the well when he had acute onset agitation/AMS. The Pts placed him in car to go to hospital at which time he became progressively more agitated then became unresponsive. On arrival to the [facility]SH ED he had seizure-like activity twice and was ultimately intubated for airway protection. CTH negative. He had an MRI brain at OSH which was read as diminished cerebral volume and chronic small vessel changes, the OSH is not able to transmit images electronically, so only report available. LP was preformed, CSF Glucose 62/ Protein 83 , WBC 2, RBC 28. Biofire panel negative. CT A/P noted patchy airspace opacities in lung bases, varying degrees of vascular stenosis (severe near the left internal iliac artery origin), no acute process identified. He was placed on WILDLIFE PHOTOGRAPHER coverage with IV abx. I am worried about subacute neurologic process given reported personality changes over time, unclear how acute mental status changes will fit into picture unless this just represents continuum of some neuropsychiatric process. After speaking with neurology paraneoplastic process could be in differential and can manifest in seizure like activity. Atypical infectious processes also on ddx though seem less likely (though he certainly has some exposures here). I did see + marijuana in [place], no [place] fills for THC products, perhaps may have accidentally consumed marijuana that was laced with another substance- will need to explore this with Pt- though this wouldn't account for subacute changes. His mental status is much improved today, extubated this am. Follow-up extensive neurologic work-up including infectious work-up and paraneoplastic panel. Will touch base with neurology re: taking off cEEG as well as need for further imaging vs. Funnel Coater to obtain previous MRI images. Will discontinue Meropenem today if okay with transplant team- no evidence of ongoing bacterial infection at this time. Appreciate transplant pulmonary recommendations for IS. I spent 40 minutes in the intensive care unit providing critical care services to Mr. Hernández today independent of procedures and other care providers. My time managing this critically ill patient included review of interval history, laboratories, radiology and consultation reports; performing a physical examination; discussing the patient with the multi-disciplinary team and managing life sustaining therapies to prevent imminent clinical deterioration as outlined above. Colleen Richardson MD Pulmonary Critical Care Medicine Advanced Care Planning Assessment HCPOA Agent(s): none on file, but would like to complete; SW aware Legal Next of Kin: 1. Spouse 2. All Adult Children Advanced Care Planning Has the patient completed Advance Directives?: Not Completed Referral to Social Work for Advance Care Planning? : Patient Agreeable (SW aware) Legal Next of Kin Does the patient have a Guardian?: No Spouse: Yes Name and Contact information: Sulma Hernández ([phone]) Adult Child(danielle), List All Adult Children: Yes Name and Contact information: Aysha Garcia ([phone]) Would you like to add additional adult children?: Yes Name and Contact information: also has a son Referral to Social Work to Identify Legal Next of Kin?: No Reviewed and Updated in Demographics? : Yes Reno Dhillon MSN, INTERIOR HORTICULTURIST Clinical Finger Buff SewerFire Assistant Intensive Care Unit Discharge Planning Patient Assessment Admission Assessment Patient Assessment Completed: Initial Anticipated discharge disposition: Home Reason for Admission: Acute Encephalpathy c/f seizures Is the patient able to participate in the assessment?: Yes Information source: Patient, Spouse, Review of Medical Record Demographics Verified and Updated: Yes Has the patient been admitted to any hospital in the last 30 days?: Transferred From Outside Hospital Advanced Care Planning Has the patient completed Advance Directives?: Not Completed Referral to Social Work for Advance Care Planning? : Patient Agreeable (SW aware) Legal Next of Kin Does the patient have a Guardian?: No Spouse: Yes Name and Contact information: Sulma Hernández ([phone]) Adult Child(danielle), List All Adult Children: Yes Name and Contact information: Aysha Garcia ([phone]) Would you like to add additional adult children?: Yes Name and Contact information: also has a son Referral to Social Work to Identify Legal Next of Kin?: No Reviewed and Updated in Demographics? : Yes Outpatient Providers Does patient have a primary care physician? : Yes When was the patient's last PCP visit?: > 30 days Does the patient follow any specialists?: Yes Reviewed and updated Care Team?: Yes Patient Care Team: Liana Loja DO as PCP - General (Family Medicine) Lala Ruvalcaba RN as Supervisor Filter Assembly (Transplant) Comfort Arndt RN as Supervisor Filter Assembly (Transplant) MCKAY Noel (Physician Railroad Brakeman) James Reyna MD, PhD, MPH (Cardiac Surgery) Environment/Caregivers Is the patient from a facility or halfway?: No Patient lives with: Spouse or Partner Living Environment: House Does the patient have a first floor set-up with bed and bathroom?: Yes Patient Caregiving Responsibilities: Self Patient-identified caregiver/support network: Family Who does the patient identify as a teachable caregiver(s)?: Spouse or Partner, Child(danielle) - Independent Services Does the patient use a home health or hospice agency?: No Does the patient use any community programs or services?: Yes Select Program, Services, Resources : ([employer]: assist with housing equipment/improvements) Does patient use DME? : grab bars Does the patient use oxygen?: No Does patient use medical supplies? : none Anticipated Changes Related to Illness/Injury? : No Initial ADLs Prior to Arrival What is the patient's baseline physical functioning prior to this acute illness?: independent What is the patient's baseline cognitive functioning prior to this acute illness?: independent Is the patient's baseline functioning changed by this acute illness? : No Concerns with patient being able to care for themselves at home? : No Are there therapy or specialists consults?: Yes Select consult type: PT, OT CM to recommend therapy or other consults? : No Medication Management Does the patient have prescription insurance coverage? : Yes Is the patient on Anticoagulation? : No [facility] [address] - [place] [phone] [facility] [address] [id number] [employer] Does the patient or commissary representative express financial concerns? : No Employed?: Disabled Coping/Stress Concerns about patient s coping and stress?: No Concerns about patient s caregiver s coping and stress?: No Identified Caregiver Values and Beliefs Cultural or judaism practices that may impact discharge planning and/or medical care?: No Initial Discharge Planning Anticipated discharge disposition: Home Transportation Available for Discharge: Family or Friend Anticipated DME: none Patient Assessment Completed: Initial Risk of Readmission: 8.2 Category Reference: High:16-100 Mod-High:10-16 Mod-Low: 5-10 Low: 0-5 Expected Discharge Date: TBD Discharge Planning Summary Patient lives with spouse in their house and was independent with all ADLs prior to this admission. No DMEs, other than grab bars in shower, and did not use any oxygen or BiPAP/CPAP. Spouse stated that she thought he completed a HCPOA but we do not have on file and she does not have a copy; SW aware that he would like to complete another one. His LNOK is his spouse. Case Management Plan Initial assessment completed with patient and spouse and bedside. PT/OT have seen him and have recommended a safe discharge to Home. He has a PCP and Rx coverage. CM will continue to follow and assist with discharge planning as needed. Reno Dhillon, MSN, INTERIOR HORTICULTURIST Clinical Finger Buff SewerFire Assistant Intensive Care Unit Images from the original note were not included. LUNG TRANSPLANT CONSULT NOTE Referring provider: Sanam Zuniga Conrad is a 63 y.o. male s/p lung transplantation. IMPRESSION AND RECOMMENDATIONS Drug Levels Lab Results Component Value Date TACROLIMUS 16.2 (H) 02/26/2021 TACROLIMUS 16.2 (H) 12/06/2019 TACROLIMUS 9.0 09/10/2019 Lab Results Component Value Date TACROTRGHMAN 5.4 03/22/2023 TACROTRGHMAN 5.0 02/22/2023 TACROTRGHMAN 5.4 01/24/2023 Transplant Bilateral lung transplant (12/11/18) for COPD (Dr. Reyna) Allograft function: declining - Reference FEV1 = 2.88 L (reset due to weight gain 01/31/20); 80% = 2.30 Immunosuppression, high risk meds, therapeutic drug monitoring PLAN: - Tacrolimus: Goal trough: 4-6; - Mycophenolate: 1000mg bid - Prednisone: 5 mg daily - TITUS Prophylaxis: azithromycin Respiratory Intubated for airway protection PLAN: - Doing well post extubation ID CMV D-/R- EBV D+/R+ Vaccinations Influenza: Jul 2021 per patient PCV13: 05/09/18 COVID-19: 01/09/21, 02/06/21 (Moderna); 10/16/21; 08/13/22 PLAN: Empiric antibiotics stopped for negative cx PPSV23 due Prophylaxis: - Bactrim 1 DS QMWF CV CAD, diffuse HTN PLAN: - ASA, Coreg, Norvasc Renal / Mg wasting due to CNI PLAN: - Monitor BUN/Cr - Mg supplementation GI GERD PLAN: - PPI Heme Anemia PLAN: - Monitor CBC Endocrine Osteoporosis Prediabetes PLAN: - Ca / Vit D - sitagliptin Musculoskeletal / Skin PLAN: - Maintain activity level - Annual dermatologic evaluation Neuro/Psych Admitted with encephalopathy of undetermined etiology. PLAN: - All work up negative for WILDLIFE PHOTOGRAPHER infection, acute MRI findings and cEEG no further sz. - Utox positive for Marijuana - On gabapentin Colonoscopy and Bone densitometer due outpatient POST TRANSPLANT HISTORY - planned Bilateral lung transplantation (12/11/18) for COPD (Dr. Reyna) - Induction with Basiliximab on Day 0 and 4 - PGD @ T24: 0 - PGD @ T48: 0 - PGD @ T72: 0 - Graft function - Reference FEV1 = 2.88 L (reset due to weight gain 01/31/20); 80% = 2.30 - Status - ABO O positive - CMV: Donor NEG Recipient NEG - EBV: Donor POS Recipient POS - Infection: - Donor cultures: S aureus, C albicans - Recipient cultures: S pseudointermedius - 12/12/18 BAL: Metapneumovirus - Ribavirin + prednisone taper - 12/26/18 BAL: Metapneumovirus - Ribavirin + prednisone taper - 03/13/19 BW: S epidermidis, S lugunensis - 04/10/19 BAL: E cloacae - 02/04/21 Thigh bx: Herpesvirus - valacyclovir x 7 days - Transbronchial biopsies: - 02/06/19: A0B0. BALT hyperplasia - 03/13/19: A0B1, aspirated vegetable material - 03/13/19 EBBx: granulation tissue/inflammatory polyp - 04/10/19 EBBx: exuberant granulation tissue with suppurative inflammation - 05/22/19: A0Bx - 07/17/19 EBBx: granulation tissue - 09/03/19 TBBx: A0Bx, focal stenosis (ISHLT stenosis c, c). 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); asymptomatic - Nephrolithiasis s/p lithotripsy - Airway issues: benign growth (granulation tissue), focal moderate BI stenosis (ISHLT stenosis c,c) - - Severe R hip arthritis s/p R COTY (03/06/20) - Lumbar compression fractures s/p vertebroplasties - H/o Bronchial granulation tissue requiring repeat excision; RBI stenosis (ISHLT c, c) - Erectile Dysfunction - 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 Taken to OSH for agitation and confusion. He became unresponsive at arrival to the ED and per report demonstrated seizure like activity. He was intubated and received Keppra load and Propofol and Versed gtt along with the Fentanyl gtt. He was transferred to [facility] ICU for further management. At OSH Procal 0.06. Troponin < 0.012. Urinalysis unremarkable. At the OSH, bronch and BAL were performed, with BAL and LRCx studies pending. RVP and MRSA nares reportedly negative. LP obtained, glucose 62, protein 83, CSF studies pending. MRI Brain obtained, significant for diminished cerebral volume and evidence of chronic white matter small vessel ischemic change. Per pt's over the past 1-2 years patient's behavior has been angry and more erratic. Per lung mail service coordinator notes this has been going on longer. The describes his changes as him getting more angry and forgetful. 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 Earlier on day of admission to [facility] the noticed he was acting himself, but after climbing out of the well and started having SOB and became agitated and altered. He is alert and interactive s/p extubation, sitting in a chair. He continues to have chronic Low back pain. . REVIEW OF SYSTEMS All other systems reviewed and are negative for pertinent findings except as mentioned in the HPI/Interval History. MEDICATIONS AND ALLERGIES Current Outpatient Medications Medication Sig Last Dose Start Date End Date Authorizing Provider acetaminophen 325 MG tablet Take 2 tablets by mouth every 6 hours as needed for mild or moderate pain. 05/03/22 Nick Lopez MD Alcohol Swabs 70 % Pads 1 Each, Unknown, 2 TIMES DAILY 04/29/22 Akbar Davis DO alendronate 70 MG tablet 70 mg, Oral, EVERY 7 DAYS 07/01/22 Akbar Davis DO amLODIPine 5 MG tablet 5 mg, Oral, DAILY 07/30/22 Nick Lopez MD aspirin (RA Aspirin Adult Low Dose) 81 MG Chew Tab chewable tablet 81 mg, Oral, DAILY 09/12/22 Nick Lopez MD azithromycin 250 MG tablet 250 mg, Oral, EVERY M, W & F 09/15/22 09/15/27 Stephania De León APRN-FINISHER BRUSH Calcium Citrate-Vitamin D 315-200 MG-UNIT tablet 1 tablet, Oral, EVERY 12 HOURS 07/01/22 Akbar Davis DO carveDILOL 25 MG tablet 25 mg, Oral, 2 TIMES DAILY 03/17/23 Nick Lopez MD ergocalciferol 1.25 MG (05704 UT) capsule 50,000 Units, Oral, WEEKLY 07/01/22 Akbar Davis DO Gabapentin 400 MG capsule TAKE 1 CAPSULE BY MOUTH EVERY MORNING, TAKE 2 CAPSULES BY MOUTH EVERY AFTERNOON and TAKE 1 CAPSULE BY MOUTH EVERY EVENING 10/28/22 04/27/23 Nick Lopez MD glucose blood test strips (OneTouch Ultra) Strip strip 400 strips, Instructed, 2 TIMES DAILY 04/29/22 Akbar Davis DO Lancets Misc 1 Each, Unknown, 2 TIMES DAILY 12/22/22 Christelle Espino MD magnesium oxide 400 MG tablet 800 mg, Oral, EVERY 12 HOURS 07/07/22 Nick Lopez MD multivitamin (multivitamin) tablet 1 tablet, Oral, DAILY 07/01/22 Akbar Davis DO mycophenolate mofetil (CELLCEPT) 250 MG capsule 1,000 mg, Oral, EVERY 12 HOURS 06/02/22 Nick Lopez MD oxybutynin CR 10 MG Tab SR 24 HR tablet 10 mg, Oral, DAILY 04/23/22 Historical Provider pantoprazole [address] DR 40 mg, Oral, 2 TIMES DAILY 07/30/22 Nick Lopez MD predniSONE 5 MG tablet 5 mg, Oral, DAILY 03/04/23 Nick Lopez MD Rosuvastatin 10 MG tablet 10 mg, Oral, DAILY 03/17/23 Nick Lopez MD SITagliptin (Januvia) 100 MG tablet 100 mg, Oral, DAILY 07/01/22 Akbar Davis DO sulfamethoxazole-trimethoprim 800-160 MG per tablet 1 tablet, Oral, THREE TIMES WEEKLY 09/13/22 09/13/27 Nick Lopez MD tacrolimus (PROGRAF) 0.5 MG capsule Take 1 capsule by mouth daily every morning AND 1 capsule every evening. 06/02/22 Nick Lopez MD Allergies: Allergies Allergen Reactions Breo Ellipta [Fluticasone Furoate-Vilanterol] Shortness of Breath Codeine Hives PHYSICAL EXAM BP 137/73 Pulse 83 Temp 97.8 F (36.6 C) (Oral) Resp (!) 30 Ht 1.829 m (6') Wt 92.4 kg (203 lb 11.3 oz) SpO2 95% BMI 27.63 kg/m Smoking Status Former Body mass index is 27.63 kg/m . Wt Readings from Last 3 Encounters: 05/16/23 92.4 kg (203 lb 11.3 oz) 05/09/23 95.6 kg (210 lb 11.2 oz) 11/08/22 99.1 kg (218 lb 8 oz) GENERAL: Well-developed male. Sitting in chair. On NC. No distress HEENT: Pupils equal, round. NECK: Neck supple. No lymphadenopathy. No thyromegaly. No stridor. CARDIOVASCULAR: Regular rate and regular rhythm. No murmurs, rubs or gallops. Normal S1 and S2. PULMONARY: . No wheezing, rhonchi or rales. GASTROINTESTINAL: Soft, non-tender, non-distended. Bowel sounds present. MUSCULOSKELETAL: No cyanosis, clubbing. No joint effusions or erythema. SKIN: Warm and dry. No jaundice or rash. Trace edema NEUROLOGIC: intubated. Perrla. PSYCHIATRIC: relates that he is in pain. A little irate DATA REVIEW CBC Lab Results Component Value Date WBC 8.57 05/18/2023 HGB 12.7 (L) 05/18/2023 HCT 39.4 (L) 05/18/2023 PLATELET 158 05/18/2023 MCV 90.2 05/18/2023 CMP Lab Results Component Value Date SODIUM 140 05/18/2023 POTASSIUM 3.8 05/18/2023 CHLORIDE 109 (H) 05/18/2023 CO2 22 05/18/2023 BUN 10 05/18/2023 CREATSERUM 0.63 (L) 05/18/2023 GLUCOSE 157 (H) 05/18/2023 Lab Results Component Value Date ALT 15 05/16/2023 AST 19 05/16/2023 GGT 29 03/22/2023 ALKPHOS 48 05/16/2023 BILITOTAL 0.4 05/16/2023 BILIDIRECT 0.1 05/16/2023 Lab Results Component Value Date CMVPCR Not detected 03/22/2023 Imaging/Radiological Studies I have personally reviewed and interpreted the radiographic data in [facility]. PFT Results 01/28/2021 12:00 04/01/2021 12:00 04/29/2021 12:00 05/27/2021 12:00 06/29/2021 11:00 PFT Results FVC-Pre 3.84 Liters FVC 4.38 4.07 4.33 4.5 FVC % Pred, % Ref 85 79 84 88 FVC-%Pred-Pre 83 % FEV1-Pre 2.36 Liters FEV1 Pre Liters 2.6 2.44 2.66 2.57 FEV1 % Pred % Ref 66 63 68 66 FEV1-%Pred-Pre 67 % FEV1/FVC-Pre 61 % FEV1/FVC % Ref 59 60 61 57 [id number]-Frn 0.99 L/sec FEF 25-75% 1.21 % 1.03 % 1.16 % 0.93 % TLCPleth-Pre 5.98 Liters RVPleth-Pre 1.84 Liters DLCOunc-Pre 25.27 mL/mmHg/min DLCOunc-%Pred-Pre 89 % DLCOcor-%Pred-Pre 93 % 07/29/2021 12:00 09/21/2021 12:00 10/29/2021 12/01/2021 12:00 12/28/2021 12:00 PFT Results FVC-Pre 4.47 Liters FVC 4.23 4.08 4.43 3.96 FVC % Pred, % Ref 82 79 86 77 FVC-%Pred-Pre 96 % FEV1-Pre 2.81 Liters FEV1 Pre Liters 2.6 2.55 2.77 2.46 FEV1 % Pred % Ref 67 65 71 63 FEV1-%Pred-Pre 79 % FEV1/FVC-Pre 63 % FEV1/FVC % Ref 62 63 82 62 [id number] 1.49 L/sec FEF 25-75% 1.12 % 1.22 % 1.32 % 1.11 % TLCPleth-Pre 5.7 Liters RVPleth-Pre 1.6 Liters DLCOunc-Pre 23.55 mL/mmHg/min DLCOunc-%Pred-Pre 83 % DLCOcor-%Pred-Pre 80 % 01/28/2022 12:00 03/30/2022 12:00 05/03/2022 15:00 05/31/2022 12:00 07/01/2022 12:00 PFT Results FVC-Pre 4.15 Liters FVC 4.31 3.69 4.22 4.43 FVC % Pred, % Ref 84 72 82 87 FVC-%Pred-Pre 90 % FEV1-Pre 2.65 Liters FEV1 Pre Liters 2.77 2.09 2.52 2.74 FEV1 % Pred % Ref 71 54 65 71 FEV1-%Pred-Pre 76 % FEV1/FVC-Pre 64 % FEV1/FVC % Ref 64 57 60 62 [id number] 1.37 L/sec FEF 25-75% 1.46 % 0.65 % 1.07 % 1.25 % TLCPleth-Pre RVPleth-Pre DLCOunc-Pre DLCOunc-%Pred-Pre DLCOcor-%Pred-Pre 07/30/2022 12:00 08/30/2022 12:00 09/29/2022 12:00 11/08/2022 13:32 11/29/2022 12:00 PFT Results FVC-Pre 3.9 Liters 3.9 Liters FVC 4.1 4.05 3.85 3.78 FVC % Pred, % Ref 80 79 75 77 FVC-%Pred-Pre 84 % 84 % FEV1-Pre 2.68 Liters 2.68 Liters FEV1 Pre Liters 2.68 2.5 2.33 2.36 FEV1 % Pred % Ref 69 65 60 62 FEV1-%Pred-Pre 76 % 76 % FEV1/FVC-Pre 69 % 69 % FEV1/FVC % Ref 65 62 60 62 [id number] 1.73 L/sec 1.73 L/sec FEF 25-75% 1.2 % 1.07 % 1.03 % TLCPleth-Pre 5.32 Liters 5.32 Liters RVPleth-Pre 1.33 Liters 1.33 Liters DLCOunc-Pre 25.61 mL/mmHg/min 25.61 mL/mmHg/min DLCOunc-%Pred-Pre 91 % 91 % DLCOcor-%Pred-Pre 89 % 89 % 12/27/2022 12:00 01/24/2023 12:00 02/28/2023 12:00 03/28/2023 12:00 05/09/2023 13:23 PFT Results FVC-Pre 3.68 Liters FVC 3.9 3.63 3.56 3.98 FVC % Pred, % Ref 79 71 70 78 FVC-%Pred-Pre 80 % FEV1-Pre 2.41 Liters FEV1 Pre Liters 2.41 2.32 2.22 2.46 FEV1 % Pred % Ref 64 60 57 64 FEV1-%Pred-Pre 69 % FEV1/FVC-Pre 65 % FEV1/FVC % Ref 62 64 62 62 [id number] 1.31 L/sec FEF 25-75% 1.08 % 1.04 % 1.16 % TLCPleth-Pre 5.54 Liters RVPleth-Pre 1.61 Liters DLCOunc-Pre 23.94 mL/mmHg/min DLCOunc-%Pred-Pre 86 % DLCOcor-%Pred-Pre 87 % Details More values are hidden. Newest values shown. Go to activity for more data. Head CTA: Nonvisualization of the basilar artery and the distal vertebral arteries which could be related to high-grade stenosis. Prominent bilateral posterior communicating arteries likely supplying the posterior circulation. OSH Head MRI: Diminished cerebral volume and evidence of chronic white matter small vessel ischemic change without acute intracranial abnormality. Paranasal sinus disease. Small bilateral mastoid effusions. PULMONARY CXR 05/17/23 No significant change from the previous examination including properly positioned endotracheal tube. CT Chest - 11/08/22 10/29/2021 Pending official read - appears stable No definite change from the previous study. Chronic elevation of the right hemidiaphragm with some volume loss and scarring in the right lung base remains, but the transplant lungs are otherwise clear. Irregularity of the bronchus intermedius appears unchanged. No definite air trapping is seen at this time, though the difference is likely a consequence of poor depth of expiration, particularly when compared to the prior study. 6MWT 02/26/21: 1598 feet (487 meters), lowest SpO2 97%, oxygen requirement: Room air 02/22/19: 1591 feet (485 meters), lowest SpO2 99%, oxygen requirement: Room air 09/28/18 (pre-tx): 984 feet (300 meters), lowest SpO2 95%, oxygen requirement: 3 LPM CARDIOLOGY TTE - 10/29/21 Left Ventricle: Chamber size is normal. Normal wall thickness. Normal global wall motion. Regional wall motion is normal. Ejection fraction is normal (60 - 65%). Diastolic function is normal. Left Atrium: Chamber size is moderately enlarged. Mitral Valve: Normal appearing leaflets. Leaflet mobility is normal. Trace regurgitation. No valve stenosis. Tricuspid Valve: Normal leaflets. Leaflet mobility is normal. Trace regurgitation. No stenosis. No echo/Doppler evidence for pulmonary hypertension. 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 There has been improvement of bone density since the previous examination. Colonoscopy - 06/21/2018 1. Cecum: Normal appearance no mass lesions normal IIeocecal valve. 2. Ascendlng colon. Normal appearance no mass lesions. 3. Transverse colon: Normal appearance. 2 polyps were identified. One was removed with biopsy forceps completely. The other was removed removed with snare cautery technique. Both of them were brought back to the channel of the scope. 4. Descending colon: Small polyp was identlfled was removed with snare cautery technique and brought back to the channel the scope. 5. Sigmold colon: Normal appearance minlmal dlverticular disease seen. 6. Rectum: Normal appearance no mass lesIons Internal hemorrholds were Identifled. Scope was withdrawn digital rectal exam showed no masses within the anus and a normal prostate smooth and small. Lat will need to have another colonoscopy In 3 years. MICROSCOPIC DIAGNOSIS Transverse colon polyps, biopsy: Fragments of tubular adenoma. Fragments of fecal material. PSA - 02/26/21 2.03 Christelle Espino MD Division of Pulmonary, Critical Care & Sleep Medicine Department of Internal Medicine [facility] Long-Term EEG Daily EEG Report: Start Time: 05/17: 16:00 End Time: 05/18: 07:00 History: 63 year old gentleman with a past medical history of bilateral lung transplant currently immunosuppressed with Tacrolimus, Mycophenolate, Prednisone whom neurology is consulted on due to altered mental status of unclear etiology. Indication: To evaluate for possible seizures. Technical Description: This is a 21-channel digital EEG recording with time-locked video and single-channel electrocardiogram. Electrodes are placed according to the 10 to 20 International System. The patient was monitored continuously by EEG technicians with EEG reviewed intermittently and annotations made to the EEG record every two hours. Portions of this record are reviewed using bandpass filters of 1 to 70 Hz and sensitivity of 7mV/mm. EEG Findings Background: There is no clear PDR recorded from the onset of the study. The background is approximately symmetric, medium amplitude 6-7Hz theta activity mixed with 2-3Hz polymorphic delta activity. There are intermittent higher amplitude GPDs. Sleep and wake differentiation is recorded and NREM sleep is recorded with symmetric VSTs and sleep spindles. Focal Asymmetry: no Reactivity: not reactive Rhythmic or Periodic Patterns: Intermittent GPDs, not sustained, limited to wake and periods of stimulation Sporadic ED's: no Brief Rhythmic Discharges: no Electrographic seizure: no Hyperventilation: no Photic stimulation: no Other Clinical Events: none Impression: This is an abnormal EEG due to the presence of moderate diffuse slowing indicative of a moderate diffuse encephalopathy. Previously recorded GPDs have largely resolved. No clear localized features, clinical events or electrographic seizures recorded, clinical correlation recommended. Carlyle Dhaliwal MD [employer], Department of Neurology, Epilepsy Section [facility] Acute Occupational Therapy Evaluation Prior to Admission AM-PAC Score: PRIOR LEVEL AM-PAC Activity Raw Score: 24 Current AM-PAC score(s): CURRENT AM-PAC Activity Raw Score: 19 Based on the above AM-PAC score(s) and OT clinical judgment, discharge destination recommendation is: Anticipate discharge to home Barriers to discharge home: Patient needs assistance with self-care for medical condition (see note below), Patient needs assistance with ADLs, Patient needs assistance with functional mobility Mobility equipment available at home: none used ADL equipment available at home: grab bars Equipment recommendations for discharge: shower chair Current therapy frequency recommendation(s) in acute: 5 times a week Activity Recommendations for outside of rehab session: Up to chair daily, ambulate to bathroom Precautions and Weightbearing Status: OT Existing Precautions/Restrictions: fall cEEG, Telemetry, Urinary catheter Patient Safety Communication Prior to Visit: Physician, Nursing, Rehab team Subjective: Pt supine in bed upon arrival agreeable to OT evaluation. Supportive present at bedside. Pt requesting to use the bathroom. Pain: General Pain Documentation (Adult, OB, Peds) Presence of Pain: complains of pain/discomfort Pain Location: back DVPRS (Defense and Veterans Pain Rating Scale) DVPRS: Rest: 9- severe pain DVPRS: Activity: 9- severe pain Home Setting Residence: House Lives With: spouse First floor setup: bedroom, walk-in shower Number of stairs to enter home: 2 Number of stairs in home: 12 / Does not need to access Stair Railings at Home: entry - with rail Mobility Equipment Available: none used ADL Equipment Available: grab bars Previous Level of Function Prior level ADL Overview: Independent with all ADLs Bed Mobility/Transfers: independent Ambulation Skills: independent Assistive Device: none used Level of Ambulation: community Objective/Observation: Vitals/Vitals Responses to Treatment: VS. No overt signs or symptoms of distress. O2 Device: room air Vision Screen Currently wearing corrective lenses: No, Reading only Visual Impairments Observed?: No Speech Speech: no gross deficits noted Successful Methods (Communication Strategies): verbal speech Hearing Hearing: no gross deficits noted ADLs: ADL Anticipated Performance (ADLs not directly observed this session): Eating, Bathing, UE Dressing Eating Assistance: Independent Eating Location: chair Grooming Assistance: Contact guard assist Grooming Location: standing at sink Grooming Deficit: Generalized weakness, Activity tolerance Grooming Skilled Rationale (Verbal/Tactile/Visual/Demonstrati on): Setup, Supervision Grooming Intervention/Details: Pt completed grooming tasks including hand hygiene standing at sink Bathing Assistance: Minimal UE Dressing Assistance: Set up supervision LE Dressing Assistance: Contact guard assist LE Dressing Location: edge of bed LE Dressing Deficit: Generalized weakness, Retrieval of items, Balance, Pain, Increased time to complete LE Dressing Skilled Rationale (Verbal/Tactile/Visual/Demonstrati on): Compensatory techniques, Technique of activity, Cues for increased safety, Facilitate positioning, Setup, Supervision LE Dressing Intervention/Details: Pt donned R sock by flexing torso and reaching toes; L socks donned with cues to utilize figure-4 technique Toilet Assistance: Contact guard assist Toileting Location: toilet Toileting Deficit: Increased time to complete, Generalized weakness, Pain, Balance, Grab bar use Toilet Skilled Rationale (Verbal/Tactile/Visual/Demonstrati on): Setup, Supervision Toileting Intervention/Details: Pt completed toileting task on toilet with extended time to complete. No assist required to for traci hygiene Extremity Assessments: RUE Assessment RUE Assessment: Within Functional Limits LUE Assessment LUE Assessment: Within Functional Limits Balance: Sitting Balance Static Sitting-Level of Assistance: Supervision Dynamic Sitting-Level of Assistance: Standby Skilled Rationale: Verbal cues Sitting Balance Skilled Intervention/Details: No loss of balance while seated unsupported EOB, on toilet, or in arm chair Standing Balance Static Standing-Level of Assistance: Contact guard Dynamic Standing-Level of Assistance: Contact guard Skilled Rationale: Verbal cues, Cues for increased safety, Initiation and execution of task Standing Balance Skilled Intervention/Details: No overt loss of balance during static or dynamic standing tasks Neuro: Sensation Overall Sensation: Intact Gross Coordination Gross Coordination: LUE intact, RUE intact Mobility Assessment: Supine to Sit Mobility Williams Level: Supine->Sit: stand-by assist Bed Features/Set-up: Supine->Sit: Head of bed elevated, Use of bed rail Skilled Rationale: Verbal cues, Initiation and execution of task, Cues for increased safety, Technique of activity Skilled Intervention/Details: Supine->Sit: Cues for initiation and sequencing Sit to Supine Mobility Williams Level: Sit->Supine: not tested (seated in arm chair at end of session) Transfer Assessment: Sit to Stand Transfer Williams Level: Sit->Stand: contact guard assist Skilled Rationale: Verbal cues, Cues for increased safety, Initiation and execution of task, Technique of activity Skilled Intervention/Details: Sit->Stand: x 1 from EOB, x 1 from toilet Stand to Sit Transfer Williams Level: Stand->Sit: contact guard assist Skilled Rationale: Verbal cues, Hand placement, Controlled descent for sitting, Technique of activity, Initiation and execution of task, Cues for increased safety Skilled Intervention/Details: Stand->Sit: x 1 to toilet, x 1 to arm chair; Cues for hand placement and controlled descent Toilet Transfer Williams Level: Toilet: contact guard assist Skilled Rationale: Cues for increased safety, Technique of activity, Hand placement Skilled Intervention/Details: Toilet: Cues for hand placement on grab bar with poor follow through Functional Mobility: Functional Mobility Williams Level: Functional Mobility/Gait: contact guard assist Physical Assist: Functional Mobility/Gait: 1 person + 1 person to manage equipment Functional Mobility Distance: Distance needed to access restroom Functional Mobility Deficits: Generalized weakness, Balance Functional Mobility Skilled Rationale: Verbal cues, Cues for increased safety Skilled Intervention/Details - Functional Mobility/Gait: Pt completed functional mobility to/from bathoom with CGA and no AD + assist to manage lines Wheelchair Assessment Patient currently uses wheelchair?: No Outcome Score(s): CURRENT [facility] Daily Activity Inpatient Short Form Putting on/Taking Off Lower Body Clothin - A Little Assistance Bathin - A Little Assistance Toiletin - A Little Assistance Putting on/Taking Off Upper Body Clothin - A Little Assistance Groomin - A Little Assistance Eatin - No Assistance CURRENT -[facility] Activity Raw Score: 19 CURRENT -[facility] Activity Functional Limitation/Modifier: 42.80% Currently Impaired in Daily Activity - CK Assessment & Plan: Patient was admitted for AMS/ Bilateral lung transplant patinet and seen for OT evaluation to assess to functional deficits preventing patient from completing daily tasks and routine at highest practical level of safety and independence. Exam findings include impairments in: balance, transfers, strength, endurance. These impairments contribute to occupational performance limitations including bathing, dressing, grooming, toileting, ADL transfers, functional mobility. 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/2020 Added automatically from request for surgery [id number] Past Surgical History: Procedure Laterality Date BRONCHOSCOPY FLEXIBLE DIAGNOSTIC N/A 05/28/2020 Laterality: N/A; Surgeon: LARRY Mosley; Location: [facility] BR[place]OSCOPY [place] BRONCHOSCOPY FLEXIBLE DIAGNOSTIC Bilateral 04/02/2020 Laterality: Bilateral; Surgeon: LARRY Mosley; Location: [facility] BRONCHOSCOPY [place] BRONCHOSCOPY FLEXIBLE W/ TRACHEAL BRONCHIAL DILATION AND/OR STENT PLAC N/A 04/02/2020 Laterality: N/A; Surgeon: LARRY Mosley; Location: [facility] BRONCHOSCOPY [place] HIP SURGERY Right 03/06/2020 BRONCHOSCOPY W/ TRANSBRONCHIAL BX SINGLE LOBE Bilateral 12/11/2019 Laterality: Bilateral; Surgeon: Akbar Davis DO; Location: [facility] BRONCHOSCOPY [place] BRONCHOSCOPY W/ TUMOR DESTRUCTION OR STENOSIS RELIEF Bilateral 12/11/2019 Laterality: Bilateral; Surgeon: Duke Reyes MD; Location: [facility] BRONCHOSCOPY [place] BRONCHOSCOPY W/ TUMOR DESTRUCTION OR STENOSIS RELIEF Bilateral 09/04/2019 Laterality: Bilateral; Surgeon: Akbar Davis DO; Location: [facility] BRONCHOSCOPY [place] BRONCHOSCOPY W/ TUMOR DESTRUCTION OR STENOSIS RELIEF Bilateral 07/17/2019 Laterality: Bilateral; Surgeon: Nick Lopez MD; Location: [facility] BRONCHOSCOPY [place] BRONCHOSCOPY W/ TUMOR DESTRUCTION OR STENOSIS RELIEF Right 05/22/2019 Laterality: Right; Surgeon: Josie Pyle DO; Location: [facility] BRONCHOSCOPY [place] BRONCHOSCOPY FLEXIBLE W/ TRACHEAL BRONCHIAL DILATION AND/OR STENT PLAC Right 05/22/2019 Laterality: Right; Surgeon: Josie Pyle DO; Location: [facility] BRONCHOSCOPY [place] BRONCHOSCOPY W/ TUMOR DESTRUCTION OR STENOSIS RELIEF Bilateral 04/10/2019 Laterality: Bilateral; Surgeon: Matthew Davila MD, PhD; Location: [facility] BR[place]CHOSCOPY [place] BRONCHOSCOPY W/ TRANSBRONCHIAL BX SINGLE LOBE Bilateral 03/13/2019 Laterality: Bilateral; Surgeon: Matthew Davila MD, PhD; Location: [facility] BRONCHOSCOPY [place] BRONCHOSCOPY W/ TRANSBRONCHIAL BX SINGLE LOBE N/A 02/06/2019 Laterality: N/A; Surgeon: Matthew Davila MD, PhD; Location: [facility] [place]ONCHOSCOPY [place] BRONCHOSCOPY FLEXIBLE W/ BRONCHIAL ALVEOLAR LAVAGE Bilateral 12/26/2018 Laterality: Bilateral; Surgeon: Nick Lopez MD; Location: [facility] BRONCHOSCOPY TRANSPLANT LUNG DOUBLE W/ BYPASS Bilateral 12/11/2018 Laterality: Bilateral; Surgeon: James Reyna MD, PhD, MPH; Location: [facility] MAIN OR ORIF WRIST TONSILLECTOMY VERTEBROPLASTY PERCUTANEOUS LUMBAR SINGLE VERTEBRAL BODY Patient will benefit from skilled occupational therapy to address these impairments, occupational performance limitations, and participation restrictions. Patient's rehab potential is: good, to achieve stated therapy goals. Planned Therapy Interventions (OT Eval): ADL retraining, balance training, transfer training, strengthening, functional activity tolerance Patient Instruction/Education this session: Patient Instruction: Role of OT and OT plan of care Plan for next session: Grooming at sink, LB dressing, standing balance/tolerance Acute OT Goals Plan of Care by Ángel Jimenez OT at 05/18/2023 10:06 AM Version 1 of 1 Problem: OT - Dressing Goal: Lower Body Dressing Description: Pt will complete LE dressing tasks with supervision for improved ability to complete self-care activities. Outcome: Ongoing Problem: OT - ADLs Goal: Grooming Description: Pt will complete grooming in standing with Mod I for improved ability to safely complete ADLs. Outcome: Ongoing Goal: Toileting Description: Pt will complete toileting task including clothing management with Mod I for improved ability to safely complete self-care activities. Outcome: Ongoing Problem: OT - Endurance Goal: Endurance Functional Task Standing Description: Pt will engage in standing functional task for 8 minutes with supervision to improve activity tolerance necessary for safe ADL completion at recommended discharge destination. Outcome: Ongoing Problem: OT - Transfers Goal: Transfers Toilet/Bedside Commode Description: Pt will transfer to/from toilet/BSC with supervision for improved ability to safely complete ADLs. Outcome: Ongoing Problem: OT - Strength/ROM Goal: Strength/ROM ADL Participation Description: Pt will demonstrate independence with UE exercise program to prevent deconditioning while in the hospital and to maximize UE ROM/coordination/strength for ADL participation. Outcome: Ongoing OT treatment consisted of the following to work and progress towards the above goal(s): OT Evaluation and Treatment Time OT Evaluation (Moderate) Time Entry: 19 Evaluating Therapist: Ángel Jimenez OT Additional Details: Co-evaluation/co-treatment performed?: Yes, simultaneous billable skilled care This co-evaluation session performed between OT and PT was beneficial, necessary and provided distinct services in establishing this person's individual plan of care. Medical complexity with functional deficits necessitated two skilled therapy disciplines working concurrently to determine each discipline's goals. I used facemask, protective eye shield, and gloves in today's patient interaction. OT Evaluation Complexity Occupational Profile and Client History: Moderate - expanded history Assessment of Occupational Performance: Moderate (3-5 performance deficits) Clinical Decision/Performance Deficits: Moderate (detailed assessments w/several treatment options) Time In: 1006 Time Out: 1025 Total Visit Time: 19 minutes Total Treatment Time (skilled, billable minutes): 19 minutes Patient location at end of session: chair Alarms on at end of session: none, RN aware and present at bedside Needs in reach and all medical lines, tubes, and drains intact. Upon discontinuation of Acute Care Occupational Therapy Services or patient discharge from the hospital this note represents the current Occupational Therapy Discharge Summary. Acute Physical Therapy Evaluation Prior to Admission [facility] score(s): PRIOR LEVEL AM-PAC Mobility Raw Score: 24 Current AM-PAC score(s): CURRENT AM-PAC Mobility Raw Score: 18 Based on the above AM-PAC score(s) and PT clinical judgment, patient is a good candidate for discharge to Home (Anticipated progression pending mobility and cognition.) Barriers to discharge home: None Mobility equipment available at home: none used ADL equipment available at home: grab bars Equipment needed for discharge: to be determined Current therapy frequency recommendation in acute: Therapy Frequency: 5 times a week Activity Recommendations for outside of rehab session: Up to chair daily, ambulate to bathroom Precautions and Weightbearing Status: Existing Precautions/Restrictions: fall cEEG, Telemetry, Urinary catheter Patient Safety Communication Prior to Visit: Physician, Nursing, Rehab team Subjective: Pt supine upon arrival and motivated to participate in therapy session. Pt hoping to ambulate to the bathroom. Pain: General Pain Documentation (Adult, OB, Peds) Presence of Pain: complains of pain/discomfort Pain Location: back DVPRS (Defense and Veterans Pain Rating Scale) DVPRS: Rest: 9- severe pain DVPRS: Activity: 9- severe pain Home Setting Residence: House Lives With: spouse First floor setup: bedroom, walk-in shower Number of stairs to enter home: 2 Number of stairs in home: 12 / Does not need to access Stair Railings at Home: entry - with rail Mobility Equipment Available: none used ADL Equipment Available: grab bars Previous Level of Function Prior level ADL Overview: Independent with all ADLs Bed Mobility/Transfers: independent Ambulation Skills: independent Assistive Device: none used Level of Ambulation: community Objective/Observation: Vitals/Vitals Responses to Treatment: Vital signs stable and monitored throughout session without concern. O2 Device: room air Cognition Overall Cognitive Status: Within Functional Limits Arousal/Alertness: Appropriate responses to stimuli Orientation Level: Oriented X4 Following Commands: Follows all commands and directions without difficulty Safety Judgment: Good awareness of safety precautions Awareness of Errors: Good awareness of errors made Deficits: Fully aware of deficits Attention Span: Appears intact Memory: Appears intact Problem Solving: Able to problem solve independently Vision Screen Currently wearing corrective lenses: No, Reading only Visual Impairments Observed?: No Speech Speech: no gross deficits noted Successful Methods (Communication Strategies): verbal speech Hearing Hearing: no gross deficits noted Extremity Assessments: RLE Assessment RLE Assessment: Within Functional Limits LLE Assessment LLE Assessment: Within Functional Limits Sensation Overall Sensation: Intact Proprioception Proprioception: intact Skin Integrity Skin Integrity Description: WFL Edema Edema: none noted Mobility Assessment: Supine to Sit Mobility Williams Level: Supine->Sit: stand-by assist Bed Features/Set-up: Supine->Sit: Head of bed elevated, Use of bed rail Skilled Rationale: Verbal cues, Initiation and execution of task, Cues for increased safety, Sequencing, Technique of activity Skilled Intervention/Details: Supine->Sit: Cueing for initiation and sequencing of transfer. Balance: Sitting Balance Static Sitting-Level of Assistance: Supervision Dynamic Sitting-Level of Assistance: Standby Skilled Rationale: Verbal cues, Upright gaze/neck extension Sitting Balance Skilled Intervention/Details: Sitting balance maintained EOB, on the toilet, and in the chair without overt LOB or significant concern. Standing Balance Static Standing-Level of Assistance: Contact guard Dynamic Standing-Level of Assistance: Contact guard Skilled Rationale: Verbal cues, Initiation and execution of task, Cues for increased safety, Technique of activity, Upright gaze/neck extension, Full extension to upright positioning/posture Standing Balance Skilled Intervention/Details: Standing balance challenged through transfers and gait training; no overt LOB noted. Transfer Assessment: Sit to Stand Transfer Williams Level: Sit->Stand: contact guard assist Skilled Rationale: Verbal cues, Upright gaze/neck extension, Full extension to upright positioning/posture, Initiation and execution of task, Cues for increased safety Skilled Intervention/Details: Sit->Stand: x2: 1 from EOB and 1 from toilet. Cueing to promote full upright posture. Stand to Sit Transfer Williams Level: Stand->Sit: contact guard assist Skilled Rationale: Verbal cues, Hand placement, Controlled descent for sitting Skilled Intervention/Details: Stand->Sit: Cueing to reach back for grab bar to promote eccentric control with descent. Extended time for toileting and independent traci care. Cueing to reach back for arm rest to promote eccentric control with descent to chair. Gait/Functional Mobility: Gait Assessment Williams Level: Gait: minimum assist (75% patient effort) Ambulation Distance (Feet): 20 Gait Deviations Identified: decreased dulce, decreased gait speed, decreased heel strike, decreased step length, decreased stride length Gait Skilled Rationale: verbal, upright posture, increase step length Outcome Score(s): CURRENT [facility] Basic Mobility Inpatient Short Form Turning over in bed: 3 - A Little Assistance Sitting/standing from chair: 3 - A Little Assistance Moving from lying on back to sittin - A Little Assistance Moving to and from bed to chair: 3 - A Little Assistance Walk in hospital room: 3 - A Little Assistance Climbing 3-5 steps with a railin - A Little Assistance CURRENT [facility] Mobility Raw Score: 18 CURRENT [facility] Mobility Functional Limitation/Modifier: 46.58% Currently Impaired in Basic Mobility - CK Assessment & Plan: Nick Hernández is a 63 y.o. male with a past medical history of bilateral lung transplant (2019, following longstanding hx of COPD), CAD, HTN, DM. He presents with a one day history of acutely altered mental status, in the setting of 3 months of slowly progressive personality changes. Patient was seen for therapy evaluation related to impaired strength, balance, and endurance. Exam findings include impairments in: Strength, Balance, Posture, Transfers, Gait/Locomotion, Aerobic capacity/endurance. These impairments contribute to functional limitations including Increased fall risk, Decreased functional mobility. Current clinical presentation is Evolving - changing/inconsistent clinical characteristics (Moderate). Patient history factors impacting Plan Of Care include . Patient will benefit from skilled physical therapy to address these impairments, functional limitations, and participation restrictions and has good rehab potential to achieve therapy goals. Planned Therapy Interventions: balance training, bed mobility training, endurance, functional activity tolerance, gait training, strengthening, transfer training Patient Instruction/Education this session: PT POC and discharge recommendations. Plan for next session: Progress transfers, ambulation, and OOB activity as able. Acute PT Goals Plan of Care by Luís Rajput PT at 05/18/2023 10:06 AM Version 1 of 1 Problem: PT - Mobility Goal: Ambulation Description: Pt will ambulate 250 feet with least restrictive device with modified independence to improve ability to navigate home environment. 05/18/2023 1356 by Luís Rajput, JASON Outcome: Ongoing 05/18/2023 1355 by Luís Rajput, PT Outcome: Ongoing Goal: Stairs Description: Pt will ascend/descend 2 stairs with prn use of railings with modified independence with least restrictive device to improve ability to perform functional mobility necessary in recommended discharge environment. 05/18/2023 135 by Luís Rajput PT Outcome: Ongoing 05/18/20231354 by Luís Rajput PT Outcome: Ongoing Problem: PT - Transfers Goal: Supine <-> Sit Description: Pt will perform bed mobility with flat bed & no rail with independence in order to improve functional mobility and safety. 05/18/2023 135 by Luís Rajput PT Outcome: Ongoing 05/18/20231354 by Luís Rajput PT Outcome: Ongoing Goal: Sit <-> Stand Description: Pt will perform sit to/from stand transfers with modified independence with least restrictive device in order to improve functional mobility and safety. 05/18/2023 135 by Luís Rajput PT Outcome: Ongoing 05/18/20231354 by Luís Rajput PT Outcome: Ongoing Goal: Strength/ROM Description: Pt will perform 3 sets of 15 repetitions of lower extremity exercises with independence in order to improve strength, maintain ROM, necessary for functional mobility. 05/18/20231355 by Luís Rajput PT Outcome: Ongoing 05/18/20231354 by Luís Rajptu PT Outcome: Ongoing PT treatment consisted of the following to progress towards the above goal(s): PT Evaluation and Treatment Time PT Evaluation (Moderate) Time Entry: 20 Evaluating Therapist: Luís Rajput PT Additional Details: Co-evaluation/co-treatment performed?: Yes, simultaneous billable skilled care This co-evaluation session performed between PT and OT was beneficial, necessary and provided distinct services in establishing this person's individual plan of care. Medical complexity with functional deficits necessitated two skilled therapy disciplines working concurrently to determine each discipline's goals. This co-treatment was medically necessary due to patient's: mobility concerns I used facemask, protective eye shield, and gloves in today's patient interaction. Evaluation Complexity Components History: Moderate (1-2 personal factors and/or comorbidities) Body Systems Review: Moderate (Addressing a total of 3 or more elements) Clinical Presentation: Evolving - changing/inconsistent clinical characteristics (Moderate) Clinical Decision Making: Moderate Time In: 1006 Time Out: 1026 Total Visit Time: 20 minutes Total Treatment Time (skilled, billable minutes): 20 minutes Patient location at end of session: chair Alarms on at end of session: chair alarm and RN aware Needs in reach. Upon discontinuation of Acute Care Physical Therapy Services or patient discharge from the hospital this note represents the current Physical Therapy Discharge Summary. Respiratory Status Update: Nick Hernández has been liberated from mechanical ventilation. Recent Vitals and Breath Sounds: Blood pressure 147/81, pulse 67, temperature 97.5 F (36.4 C), temperature source Oral, resp. rate 18, height 1.829 m (6'), weight 92.4 kg (203 lb 11.3 oz), SpO2 96 %. On room air. Post-Extubation Orders and Indications: n/a Respiratory Plan of Care: Continue to monitor pt for signs of respiratory distress, encourage coughing as tolerated. The patients respiratory plan of care was updated by Saloni Barfield RCP 05/18/2023 9:42 AM 05/18/23 0643 Assessment Type ## Assessment-Evaluation re-evaluation RT Intervention Assessment-Evaluation Assessment Type adult critical care Reason for Assessment re-evaluation Care Plan Completed yes Vitals, Reports, and Results Pulse (Heart Rate) 52 Resp Rate 13 Nick Hernández is a 63 y.o. male with past medical history of: Past Medical History: Diagnosis Date Anxiety COPD (chronic obstructive pulmonary disease) with emphysema Herpes zoster Hiatal hernia Nephrolithiasis Presence of granulation tissue 04/16/2019 Added automatically from request for surgery [id number] Primary osteoarthritis of right hip 12/06/2019 Added automatically from request for surgery [id number] Tracheal stenosis 03/12/2020 Added automatically from request for surgery [id number] Past Surgical History: Procedure Laterality Date BRONCHOSCOPY FLEXIBLE DIAGNOSTIC N/A 05/28/2020 Laterality: N/A; [facility]: [facility] BRONCHOSCOPY [place] BRONCHOSCOPY FLEXIBLE DIAGNOSTIC Bilateral 04/02/2020 Laterality: Bilateral; Surgeon: Yovanny Perla [facility]; Location: [facility] BRONCHOSCOPY [place] BRONCHOSCOPY FLEXIBLE W/ TRACHEAL BRONCHIAL DILATION AND/OR STENT PLAC N/A 04/02/2020 Laterality: N/A; [facility]; Location: [facility] BRONCHOSCOPY [place] HIP SURGERY Right 03/06/2020 BRONCHOSCOPY W/ TRANSBRONCHIAL BX SINGLE LOBE Bilateral 12/11/2019 Laterality: Bilateral; Surgeon: Akbar Davis DO; Location: [facility] BRONCHOSCOPY [place] BRONCHOSCOPY W/ TUMOR DESTRUCTION OR STENOSIS RELIEF Bilateral 12/11/2019 Laterality: Bilateral; Surgeon: Duke Reyes MD; Location: [facility] BRONCHOSCOPY [place] BRONCHOSCOPY W/ TUMOR DESTRUCTION OR STENOSIS RELIEF Bilateral 09/04/2019 Laterality: Bilateral; Surgeon: Akbar Davis DO; [facility]: [facility] BRON[facility]OSCOPY [place] BRONCHOSCOPY W/ TUMOR DESTRUCTION OR STENOSIS RELIEF Bilateral 07/17/2019 Laterality: Bilateral; Surgeon: Nick Lopez MD; Location: [facility] BRONCHOSCOPY [place] BRONCHOSCOPY W/ TUMOR DESTRUCTION OR STENOSIS RELIEF Right 05/22/2019 Laterality: Right; Surgeon: Josie Pyle DO; [facility]OSCOPY [place] BRONCHOSCOPY FLEXIBLE W/ TRACHEAL BRONCHIAL DILATION AND/OR STENT PLAC Right 05/22/2019 Laterality: Right; Surgeon: Josie Pyle DO; Location: [facility] BRONCHOSCOPY [place] BRONCHOSCOPY W/ TUMOR DESTRUCTION OR STENOSIS RELIEF Bilateral 04/10/2019 Laterality: Bilateral; Surgeon: Matthew Davila MD, PhD; Location: [facility] BRONCHOSCOPY [place] BRONCHOSCOPY W/ TRANSBRONCHIAL BX SINGLE LOBE Bilateral 03/13/2019 Laterality: Bilateral; Surgeon: Matthew Davila MD, PhD; Location: [facility] BRONCHOSCOPY [place] BRONCHOSCOPY W/ TRANSBRONCHIAL BX SINGLE LOBE N/A 02/06/2019 Laterality: N/A; Surgeon: Matthew Davila MD, PhD; Location: [facility] BRONCHOSCOPY [place] BRONCHOSCOPY FLEXIBLE W/ BRONCHIAL ALVEOLAR LAVAGE Bilateral 12/26/2018 Laterality: Bilateral; Surgeon: Nick Lopez MD; Location: [facility] BRONCHOSCOPY TRANSPLANT LUNG DOUBLE W/ BYPASS Bilateral 12/11/2018 Laterality: Bilateral; Surgeon: James Reyna MD, PhD, MPH; Location: [facility] MAIN OR ORIF WRIST TONSILLECTOMY VERTEBROPLASTY PERCUTANEOUS LUMBAR SINGLE VERTEBRAL BODY Social History Tobacco Use Smoking status: Former Packs/day: 1.50 Years: 30.00 Total pack years: 45.00 Types: Cigarettes Quit date: 11/2015 Years since quittin.5 Smokeless tobacco: Never Substance Use Topics Alcohol use: No Comment: Past use with history of DUI Full Code No active isolations Recent Vitals: Blood pressure 173/78, pulse 52, temperature 97.5 F (36.4 C), temperature source Oral, resp. rate 13, height 1.829 m (6'), weight 92.4 kg (203 lb 11.3 oz), SpO2 96 %. Breath Sounds/Sputum Characteristics: CTA, diminished BLL, suction small cloudy white sputum Radiology: Narrative & Impression EXAM: XR CHEST PORTABLE, 05/17/2023 00:47 AM COMPARISON: Compared to prior day. CLINICAL INDICATIONS: verify placement of ETT RELEVANT CLINICAL HISTORY: FINDINGS: (Lateral chest wall is not included in the image. Implanted Devices: Stable Thorax: Stable bibasilar atelectasis more on the right. No new pneumothorax. Stable cardiac silhouette and osseous structures. IMPRESSION IMPRESSION: No significant change from the previous examination including properly positioned endotracheal tube. Current Orders: vent Vent Liberation/Management Guidelines: ICU Vent Settings: Ventilator/Non-Ventilator Mode: CPAP / PSV Set/Target Tidal Volume: 475 Set Respiratory Rate/Release Rate: 18 PEEP (cm H2O): 6 Recent ABG/VBG: Pulmonary History and Respiratory Home Medications: [facility] Date: 05/09/2023 Name: NICK HERNÁNDEZ [facility] ID: [id number] Pulmonary Diagnostics Laboratory Age: 63 Height(in): 69.00 Pulmonary Lab PFT Report Weight(lb): 209.90 BMI: 31.0 Z94.2 Gender:Male : 1960 D84.9 Diagnosis: Tobacco Product: Race: Years Smoked: Pack Years: Tech: Rogelio Galvez Physician: MD [place] Bronwyn L. Years Quit: Pred Set:Pulmonary Lab NHANES Location: Pulmonary Lab Main Status: [id number] Protocol: PFT PFT INTERPRETATION: SPIROMETRY Spirometry showed evidence of a moderate obstructive impairment. FLOW VOLUME LOOP Flow volume loop is consistent with obstruction. LUNG VOLUMES Body plethysmography was used. Lung volumes have evidence of mild restriction. DIFFUSING CAPACITY Diffusing capacity is within normal limits. Diffusing capacity was corrected for hemoglobin. Faisal Villanueva MD Fellow, Pulmonary and Critical Care Attending physician attestation: I have independently reviewed this study and edited the report to reflect my interpretation. Shannon Rosales MD This interpretation has been electronically signed: MD Bobby, Shannon Arreguin 05/10/2023 10:03:13 PM Pulmonary Combivent prn Plan of Care: Maintain vent support, sxn as needed, wean fio2/peep as tolerated. SBTs when appropriate. Continue to monitor and follow up with team. The patients respiratory plan of care was updated by Rosario Horowitz RCP 05/18/2023 6:43 AM 05/18/23 0540 B = Both Spontaneous Awakening and Breathing Trials Was patient receiving mechanical ventilation? Yes Safety Screen Spontaneous Breathing Trial (SBT) Proceed with SBT - No exclusion criteria met Spontaneous Breathing Trial (SBT) Outcome SBT Passed NUTRITION ASSESSMENT - Consult Nutrition Recommendations and Plan of Care: 1. Initiate Vital AF 1.2 at 10 ml/hr; increase by 10 ml every 4 hours to goal rate of 85 ml/hr. - Goal rate will provide 2040 mL, 2448 kcal (26 kcal/kg), 153 g PRO (1.7 g pro/kg), 226 g CHO and 1654 mL free water. - Additional free water flushes per primary team. Recommend minimum 30 mL x 4/day to maintain tube patency. 2. Monitor TF intake, bowel function, skin integrity, weight change, lab values. 3. RD to follow. Nick Zuniga Conrad is a 63 y.o. male with h/o bilateral lung transplant (2019, following longstanding hx of COPD), CAD, HTN, DM. He presents with a one day history of acutely altered mental status, in the setting of 3 months of slowly progressive personality changes. Pt was taken to OSH by . When they arrived at OSH ED he became unresponsive in the car with agonal breathing. The ED team took pt out of the car and placed him on the sidewalk. He started having seizure like activity. He was intubated and treated for presumed seizure. He was admitted to the ICU for further management. Pt was subsequently transferred to [facility] for further management and access to the [facility] transplant team. Neurology consulted for c/f status epilepticus. Nutrition consult received per MICU protocol. Past History Past medical, surgical, family, and social histories have reviewed and are located elsewhere in the medical record. Nutrition History Pt currently intubated with OG tube in place. Currently sedated on precedex and fentanyl. Plan to start TF. No family present at bedside. Unable to obtain nutrition history at this time. NFPE deferred as pt receiving bedside Echo at time of attempted visit. Diet Order Current Diet Orders Procedures DIET NPO with meds Standing Status: Standing Number of Occurrences: 1 Order Specific Question: NPO Meds: Answer: with meds Ht: 6' /182.9 cm Wt: 203#/92.4 kg BMI: 27.6 kg/(m^2) IBW: 178#/80.9 kg %IBW: 114 Weight history: per chart review, current wt indicates a wt loss of 15 lb (7%) in over 6 months, which is insignificant. Unable to confirm wt history with pt at this time. Wt Readings from Last 10 Encounters: 05/16/23 92.4 kg (203 lb 11.3 oz) 05/09/23 95.6 kg (210 lb 11.2 oz) 11/08/22 99.1 kg (218 lb 8 oz) 05/11/22 95.3 kg (210 lb) 05/03/22 94.3 kg (207 lb 14.4 oz) 10/29/21 91.8 kg (202 lb 6.4 oz) 10/29/21 91 kg (200 lb 9.9 oz) 06/29/21 91.4 kg (201 lb 9.6 oz) 02/26/21 96.5 kg (212 lb 12.8 oz) 11/17/20 91.2 kg (201 lb) Meds reviewed: Scheduled: Azithromycin 250 mg Oral Q MWF chlorhexidine 15 mL Mucous Membrane Q12H enoxaparin 40 mg Subcutaneous Q24H meropenem (MERREM) IVPB 2 g Intravenous Q8HNS Multi-Vitamins 1 tablet Oral Daily Pantoprazole 40 mg Oral BID predniSONE 5 mg Oral Daily [START ON 05/18/2023] Sulfamethoxazole-trimethoprim 1 tablet Oral Once per day on Tue Continuous: dexmedeTOMIDine (PRECEDEX) IV infusion 0.2 mcg/kg/hr (05/17/231103) fentaNYL (SUBLIMAZE) Infusion 25 mcg/hr (05/17/231103) Labs reviewed: Na/K+/Phos/Mg/Ca: 139/4.4/2.3/3.1/-- (05/16 2009-05/17 655) Bun/Creat/Cl/CO2/Glucose: 7/0.76/110/19/158 (05/17 655-05/17 1113) WBC/Hgb/Hct/Plts: 5.53/12.3/38.0/158 (05/17 614) GI: +OG, soft, NT, ND, +BS 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 Unable to obtain nutrition history.) based on the AND/ASPEN Malnutrition Criteria 2012 Pt remains at nutrition risk due to clinical status, bilateral lung transplant following COPD, CAD, HTN, DM, acute hypoxic respiratory failure, c/f status epilepticus, TF requirement. Toya GERMAIN, CIARRA, [facility] Pager #[phone] Long-Term EEG Daily EEG Report: Start Time: 05/17: 01:42 End Time: 05/17: 16:00 History: 63 year old gentleman with a past medical history of bilateral lung transplant currently immunosuppressed with Tacrolimus, Mycophenolate, Prednisone whom neurology is consulted on due to altered mental status of unclear etiology. Indication: To evaluate for possible seizures. Technical Description: This is a 21-channel digital EEG recording with time-locked video and single-channel electrocardiogram. Electrodes are placed according to the 10 to 20 International System. The patient was monitored continuously by EEG technicians with EEG reviewed intermittently and annotations made to the EEG record every two hours. Portions of this record are reviewed using bandpass filters of 1 to 70 Hz and sensitivity of 7mV/mm. EEG Findings Background: There is no clear PDR recorded from the onset of the study. The background is approximately symmetric, medium amplitude 6-7Hz theta activity mixed with 2-3Hz polymorphic delta activity. There are intermittent higher amplitude GPDs. Sleep and wake differentiation is recorded and NREM sleep is recorded with symmetric VSTs and sleep spindles. Focal Asymmetry: no Reactivity: not reactive Rhythmic or Periodic Patterns: Intermittent GPDs, not sustained, limited to wake and periods of stimulation Sporadic ED's: no Brief Rhythmic Discharges: no Electrographic seizure: no Hyperventilation: no Photic stimulation: no Other Clinical Events: none Impression: This is an abnormal EEG due to the presence of moderate diffuse slowing indicative of a moderate diffuse encephalopathy. 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 No clear localized features, clinical events or electrographic seizures recorded, clinical correlation recommended. Carlyle Dhaliwal MD [employer]usement [employer] Mechanic, Department of Neurology, Epilepsy Section [facility] Internal Medicine Daily Progress Note Patient: Nick Hernández, 1960, [id number] Physician: Verena Sy DO, PGY1, Pager #[phone], Med Intensive service Subjective/Interval History: Nick Hernández is a 63 y.o. male with a past medical history of bilateral lung transplant (2019, following longstanding hx of COPD), CAD, HTN, DM. He presents with a one day history of acutely altered mental status, in the setting of 3 months of slowly progressive personality changes. Patient was transferred from [facility] to [facility] for further management and access to transplant team. Patient continues to withdraw to pain in all extremities. No new changes overnight. Will continue to wean propofol. Objective: Vitals: 05/17/23629 BP: 136/75 Pulse: 71 Resp: 18 Temp: 97 F (36.1 C) SpO2: 99% O2 Device: ventilator (mechanical ventilation) (05/17/23 0139) Gen: NAD, well-appearing HENT: NCAT, EOMI, MMM Cardio: RRR, normal S1/S2, no murmur Resp: CTA b/l, no increased WOB GI: soft, NT, ND, normal BS MSK: no joint swelling or erythema Ext: warm and well-perfused, no LE edema Neuro: sedated, withdraws to pain in extremities Data Review: WBC/Hgb/Hct/Plts: 5.53/12.3/38.0/158 (05/17 614) Na/K+/Phos/Mg/Ca: 139/4.4/2.3/3.1/-- (05/16 2009-05/17 655) Bun/Creat/Cl/CO2/Glucose: 7/0.76/110/19/140 (05/17 655) Ptt/Pt/Inr: 30.6/14.1/1.1 (05/16 2009) Meningitis/ Encephalitis studies- neg Resp panel- neg LP with CSF studies (blasto, histo, VDRL, [place], [place] disease)- pending CT Head- No acute intracranial findings.Fluid levels in the paranasal sinuses. Correlate for sinusitis. CTA brain/neck- Nonvisualization of the basilar artery and the distal vertebral arteries which could be related to high-grade stenosis. Prominent bilateral posterior communicating arteries likely supplying the posterior circulation. MRI spine- pending after EEG MRI brain- pending after EEG Assessment/Plan: Nick Hernández is a 63 y.o. male with a past medical history of bilateral lung transplant (2019, following longstanding hx of COPD), CAD, HTN, DM. He presents with a one day history of acutely altered mental status, in the setting of 3 months of slowly progressive personality changes. Acute encephalopathy C/f status epilepticus Subjective hx from of worsening mental status . CT head negative for acute process at OSH. LP obtained, glucose 62, protein 83, WBC 1. CSF studies pending. MRI Brain obtained, significant for diminished cerebral volume and evidence of chronic white matter small vessel ischemic change without acute intracranial abnormality, paranasal sinus disease, and small bilateral mastoid effusions. Upon arrival to [facility], CSF studies were not initially visible in the chart, so meningitic coverage initially started with meropenem, acyclovir, ampicillin. Vancomycin not ordered as MRSA negative at OSH. - Neurology consulted, following > ammonia 32, UDS negative, serum tox screen negative > TSH, folate, vitamin B1, vitamin B12, lactate, CK: wnl > autoimmune encephalopathy, paraneoplastic panels: pending. Will follow up with Gust tomorrow. > lyme AB: pending > HIV1/2, Syphilis, MMA: neg > cEEG > CTH, CTA > MRI brain and spine after EEG monitoring - meningitic coverage initially started with meropenem; acyclovir, ampicillin discontinued per results of CSF studies - follow up OSH infectious workup - wean off propofol; add fentanyl and precedex Acute hypoxic respiratory failure, intubated for airway protection S/p bilateral lung transplant for end stage COPD 12/11/2018 Chronic R hemidiaphragm paralysis B/l lung transplant at [facility] on 12/11/2018, follows with Dr. Espino at [facility]. 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 Bronch with BAL performed at OSH --> PNA PCR, respiratory culture pending. Limited viral respiratory panel negative at OSH including covid, human metapneumo, paraflu. Procal negative 0.06 at OSH. - transplant team consulted, appreciate recs - goal tacro level 4-6 per outpt transplant notes - Per OSH records have been holding home tacrolimus and Cellcept due to ISAIAS/concern for possible toxicity. Cont prednisone 5 mg/day. - continue bactrim and azithro ppx - follow up LRCx, BAL studies obtained at OSH - blood culture pending ISAIAS, improving Baseline Cr ~1.0-1.1, on admission at OSH was noted at 1.6. Suspect prerenal given resolution with IVF at OSH. Urine lytes and osms obtained at OSH with FeNa 0.7% at that time. - daily chem, renal protective measures Hyperglycemia History of prediabetes Last a1c 5.9%. Home regimen includes sitagliptin - SSI regular while on TF Acute normocytic anemia Baseline hgb ~14. Less concern for acute bleed at this time given hemodynamic instability, absence of melena or other red flag symptoms. Transfusion goals hgb >7, plt >50 or >10 in the setting of acute bleed. - daily cbc, trend DVT PPX: lovenox Code Status: Full Code Disposition: tbd Discussed with team and attending, Dr. Colleen Richardson, on rounds. Signed, Verena Sy DO Family Medicine PGY1 Associated attestation - Colleen Richardson MD - 05/17/2023 4:12 PM EDT Attending addendum: I have independently seen and examined the patient. I independently reviewed the medical records, labs & imaging studies. I discussed the findings and management plan and agree with the assessment and plan as outlined above with the following additions/amendments: Nick is a 63 yr old M with a pmh of bilateral lung transplant in 2019 (for COPD), CAD, HTN, DM that presented from OSH with AMS ultimately requiring intubation and transfer to [facility] for further evaluation. The Pt reportedly has been having personality changes over the last several months, with changes in temperament, confusion, and some perseveration over certain issues.On 05/15 the Pt was pulling up water from the well when he had acute onset agitation/AMS. The Pts placed him in car to go to hospital at which time he became progressively more agitated then became unresponsive. On arrival to the OSH ED he had seizure-like activity twice and was ultimately intubated for airway protection. CTH negative. He had an MRI brain at OSH which was read as diminished cerebral volume and chronic small vessel changes, the OSH is not able to transmit images electronically, so only report available. LP was preformed, CSF Glucose 62/ Protein 83 , WBC 2, RBC 28. Biofire panel negative. CT A/P noted patchy airspace opacities in lung bases, varying degrees of vascular stenosis (severe near the left internal iliac artery origin), no acute process identified. He was placed on WILDLIFE PHOTOGRAPHER coverage with IV abx. As for exposures he is immunosuppressed. 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 I am worried about subacute neurologic process given reported personality changes over time, unclear how acute mental status changes will fit into picture. After speaking with neurology paraneoplastic process is in differential at this point and can manifest in seizure like activity. Atypical infectious processes also on ddx. Agree with cEEG CTA Head, eventual repeat MRI Brain; hopefully we can get OSH images if able Follow-up Cx results including CSF Agree with neurology consult Agree with continuing IV meropenem today Agree with discontinuation of IV acyclovir given negative HSV Continue lung protective ventilation Minimize sedation as able Appreciate transplant pulmonary recommendations I spent 40 minutes in the intensive care unit providing critical care services to Mr. Hernández today independent of procedures and other care providers. My time managing this critically ill patient included review of interval history, laboratories, radiology and consultation reports; performing a physical examination; discussing the patient with the multi-disciplinary team and managing life sustaining therapies to prevent imminent clinical deterioration as outlined above. Colleen Richardson MD Pulmonary Critical Care Medicine Physical Therapy Attempt Note 05/17/2023 PT Therapy Completed: Attempted Attempted Reason: Patient is not medically optimized to tolerate therapy program (RASS -3; plan for extubation later today.) Luís Rajput, PT Time In: 0800 Time Out: 0800 Total Visit Time: 0 minutes Total Treatment Time (skilled, billable minutes): 0 minutes Occupational Therapy Attempt Note 05/17/2023 OT Therapy Completed: Attempted Attempted Reason: Patient is not medically optimized to tolerate therapy program (RASS -3; Plans for extubation) Ángel Jimenez OT Time In: 0800 Time Out: 0800 Total Visit Time: 0 minutes Total Treatment Time (skilled, billable minutes): 0 minutes Department of Pharmacy Anticoagulant Progress Note Patient: Nick Hernández Room/Bed: [facility]3/A Assessment/Plan: Patient's current Weight: Wt Readings from Last 1 Encounters: 05/16/23 92.4 kg (203 lb 11.3 oz) . Based on this, I have changed the enoxaparin subcutaneous dose to 40 mg every 24 hours. Name: Camilla Martin RPH Phone: [phone] Date/Time: 05/16/2023 7:51 PM Nick Hernández is a 63 y.o. male with past medical history of: Past Medical History: Diagnosis Date Anxiety COPD (chronic obstructive pulmonary disease) with emphysema Herpes zoster Hiatal hernia Nephrolithiasis Presence of granulation tissue 04/16/2019 Added automatically from request for surgery [id number] Primary osteoarthritis of right hip 12/06/2019 Added automatically from request for surgery [id number] Tracheal stenosis 03/12/2020 Added automatically from request for surgery [id number] Past Surgical History: Procedure Laterality Date BRONCHOSCOPY FLEXIBLE DIAGNOSTIC N/A 05/28/2020 Laterality: N/A; Surgeon: TAD Mosley; Location: [facility] [place] BRONCHOSCOPY FLEXIBLE DIAGNOSTIC Bilateral 04/02/2020 Laterality: Bilateral; Surgeon: TAD Mosley; Location: [facility] [place] BRONCHOSCOPY FLEXIBLE W/ TRACHEAL BRONCHIAL DILATION AND/OR STENT PLAC N/A 04/02/2020 Laterality: N/A; Surgeon: TAD Mosley; Location: [facility] [place] HIP SURGERY Right 03/06/2020 BRONCHOSCOPY W/ TRANSBRONCHIAL BX SINGLE LOBE Bilateral 12/11/2019 Laterality: Bilateral; Surgeon: Akbar Davis DO; Location: [facility] [place] BRONCHOSCOPY W/ TUMOR DESTRUCTION OR STENOSIS RELIEF Bilateral 12/11/2019 Laterality: Bilateral; Surgeon: Duke Reyes MD; Location: [facility] [place] BRONCHOSCOPY W/ TUMOR DESTRUCTION OR STENOSIS RELIEF Bilateral 09/04/2019 Laterality: Bilateral; Surgeon: Akbar Davis DO; Location: [facility] [place] BRONCHOSCOPY W/ TUMOR DESTRUCTION OR STENOSIS RELIEF Bilateral 07/17/2019 Laterality: Bilateral; Surgeon: Nick Lopez MD; Location: [facility] [place] BRONCHOSCOPY W/ TUMOR DESTRUCTION OR STENOSIS RELIEF Right 05/22/2019 Laterality: Right; Surgeon: Josie Pyle DO; Location: [facility] [place] BRONCHOSCOPY FLEXIBLE W/ TRACHEAL BRONCHIAL DILATION AND/OR STENT PLAC Right 05/22/2019 Laterality: Right; Surgeon: Josie Pyle DO; Location: [facility] [place] BRONCHOSCOPY W/ TUMOR DESTRUCTION OR STENOSIS RELIEF Bilateral 04/10/2019 Laterality: Bilateral; Surgeon: Matthew Davila MD, PhD; Location: [facility] [place] BRONCHOSCOPY W/ TRANSBRONCHIAL BX SINGLE LOBE Bilateral 03/13/2019 Laterality: Bilateral; Surgeon: Matthew Davila MD, PhD; Location: [facility] [place] BRONCHOSCOPY W/ TRANSBRONCHIAL BX SINGLE LOBE N/A 02/06/2019 Laterality: N/A; Surgeon: Matthew Davila MD, PhD; Location: [facility] [place] BRONCHOSCOPY FLEXIBLE W/ BRONCHIAL ALVEOLAR LAVAGE Bilateral 12/26/2018 Laterality: Bilateral; Surgeon: Nick Lopez MD; Location: [facility] BRONCHOSCOPY TRANSPLANT LUNG DOUBLE W/ BYPASS Bilateral 12/11/2018 Laterality: Bilateral; Surgeon: James Reyna MD, PhD, MPH; Location: [facility] MAIN OR ORIF WRIST TONSILLECTOMY VERTEBROPLASTY PERCUTANEOUS LUMBAR SINGLE VERTEBRAL BODY Social History Tobacco Use Smoking status: Former Packs/day: 1.50 Years: 30.00 Total pack years: 45.00 Types: Cigarettes Quit date: 11/2015 Years since quittin.4 Smokeless tobacco: Never Substance Use Topics Alcohol use: No Comment: Past use with history of DUI Full Code No active isolations Recent Vitals: Blood pressure 128/82, pulse 88, temperature 98.2 F (36.8 C), temperature source Bladder, resp. rate (!) 29, SpO2 100 %. Breath Sounds/Sputum Characteristics: Diminished Radiology: pending Current Orders: Adult Vent Vent Liberation/Management Guidelines: MICU Vent Settings: Ventilator/Non-Ventilator Mode: A/C PRVC Set/Target Tidal Volume: 475 Set Respiratory Rate/Release Rate: 18 PEEP (cm H2O): 8 Recent ABG/VBG: Pulmonary History and Respiratory Home Medications: Bilateral lung transplant Plan of Care: Wean settings as tolerated, sxn as necessary. The patients respiratory plan of care was updated by Saloni Barfiedl RCP 05/16/2023 7:00 PM documented in this encounter [facility] 05-21-2023 Hospital course Narrative Hospital Medicine Discharge Summary Patient: Nick Hernández, : 1960, Date of face to face patient encounter: 05/21/2023 Admission Details Admit Date 05/16/2023 Discharge Date 05/21/2023 Inpatient Days 5 Primary Diagnoses Acute encephalopathy, resolved. workup nonconclusive, reported back to baseline per patient and . History of lung transplant on immunosuppression Action Items MRI brain with and without contrast as outpatient Neuropsych clinic follow-up PCP within 10 days Follow-up with transplant pulmonary clinic PCP / pulm team to follow on results of autoimmune encephalopathy, paraneoplastic panels Summary of Hospitalization Dear Doctors, I recently had the opportunity to care for Nick Hernández during his recent hospital stay at [facility]. As you may know, Mr Hernández is a 63yo M with PMH COPD s/p BOLT (11/2018) who was admitted to MICU from OSH for acute encephalopathy and seizure like activity req intubation and sedation. Acute encephalopathy, resolved Subjective hx from of worsening mental status . CT head negative for acute process at OSH. MRI at OSH showed diminished cerebral volume w/o acute changes. LP obtained at outside hospital, they agreed to run additional labs for us. Current LP and cultures negative, low suspicion for infectious process meningitic emperic coverage with meropenem, acyclovir, ampicillin D/C. - Neurology consulted, > EEG completed without seizures > autoimmune encephalopathy, paraneoplastic panels: pending. > Heavy metals, lyme pending [facility] - agreed to fax any additional infectious work ups > lyme AB: pending > HIV1/2, Syphilis, MMA: neg > CTH unremarkable > MRI brain with and without contrast was ordered but patient and felt he is back to his normal, completely asymptomatic and requesting to go home and have the MRI as outpatient. My evaluation with him before discharge, per to be normal, oriented x3 aware about indication of his hospital stay, clinical condition and follow-up. I met with and she agrees about the plan. And she feels very comfortable to discharge him home. Also psych consulted before DC , and started on citalopram. Discussed with Neuro and with Pulmonary team and they are okay with this plan. Outpatient MRI brain was ordered. Also Neuro psych referral was ordered before discharge. Patient indicated to follow-up with PCP for those S/p bilateral lung transplant for end stage COPD 12/11/2018 Chronic R hemidiaphragm paralysis follows with Dr. Espino at [facility]. 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 Bronch with BAL performed at OSH --> PNA PCR, respiratory culture negative. Limited viral respiratory panel negative at OSH including covid, human metapneumo, paraflu. Procal negative 0.06 at OSH - Restarted Tacro and Cellcept - Transplant team was on board , he will follow-up with Transplant Clinic after discharge. BMI: 27.7 Upon discharge the patient's code was Full Code Please see the remainder of this document for relevant data from this admission as well as the patient's discharge instructions and follow-up appointments. An electronic copy of the patient's records can be obtained via [facility] [employer] at [email or web address] It has been my pleasure participating in this patient's care. Please contact me with any questions or concerns regarding his hospital stay. The total time of discharge was 32 minutes. Sincerely, ALEX Keene/[facility] Division of Hospital Medicine Relevant Data from this Admission Temp: [97.6 F (36.4 C)-98.1 F (36.7 C)] 97.6 F (36.4 C) Pulse (Heart Rate): [65-89] 65 Resp Rate: [16-22] 22 BP: (137-161)/(76-90) 139/80 O2 Sat (%): [94 %-96 %] 95 % Weight: [90.4 kg (199 lb 3.2 oz)] 90.4 kg (199 lb 3.2 oz) Physical Exam Gen: Alert, Awake, NAD Eyes: PERRLA, EOMI, no icterus ENT: MMM, trachea midline Resp: CTA & P, normal respiratory effort Cardio: RRR, normal S1, S2, no M/R/G. No AXEL. GI: S/NT/ND, NABS MS: No joint effusions or erythema Skin: No jaundice or rash Neuro: loom changer 3-7, 9-11 intact and equal. Strength grossly equal in muscle groups of the bilateral UEs and LEs. Psych: Ox3, appropriate affect and cognition Recent Labs 05/21/23 0220 WBC 5.77 HGB 13.1* PLATELET 190 SODIUM 141 POTASSIUM 3.8 CO2 21 ANIONGAP 18* BUN 16 CREATSERUM 1.03 MAGNESIUM 1.8 PHOSPHORUS 3.8 Patient Instructions No future appointments. No follow-up provider specified. Medication List for when you go home START taking these medications Citalopram 10 MG TABS Take 1 tablet by mouth daily. Commonly known as: CELEXA Start taking on: May 22, 2023 hydrOXYzine HCl 25 MG TABS Take 1 tablet by mouth 3 times daily as needed for Anxiety or Insomnia for up to 20 days. Commonly known as: ATARAX CONTINUE taking these medications Acetaminophen 325 MG tablet Take 2 tablets by mouth every 6 hours as needed for mild or moderate pain. Commonly known as: TYLENOL Alcohol Swabs 70 % PADS 1 Each by Unknown route 2 times daily. alendronate 70 MG TABS Take 1 tablet by mouth every 7 days. Commonly known as: FOSAMAX amLODIPine 5 MG TABS Take 1 tablet by mouth daily. Commonly known as: NORVASC aspirin 81 MG CHEW chewable tablet Chew 1 tablet daily. Commonly known as: RA Aspirin Adult Low Dose Azithromycin 250 MG TABS Take 1 tablet by mouth every Tuesday, Tuesday and Tuesday. Commonly known as: ZITHROMAX Calcium Citrate-Vitamin D 315-200 MG-UNIT TABS Take 1 tablet by mouth every 12 hours. carveDILOL 25 MG TABS Take 1 tablet by mouth 2 times daily. Commonly known as: COREG Ergocalciferol 1.25 MG (50223 UT) CAPS Take 1 capsule by mouth once a week. Commonly known as: VITAMIN D2 Gabapentin 400 MG CAPS TAKE 1 CAPSULE BY MOUTH EVERY MORNING, TAKE 2 CAPSULES BY MOUTH EVERY AFTERNOON and TAKE 1 CAPSULE BY MOUTH EVERY EVENING Doctor's comments: G62.9 Commonly known as: NEURONTIN Lancets MISC 1 Each by Unknown route 2 times daily. magnesium oxide 400 MG TABS Take 2 tablets by mouth every 12 hours. Commonly known as: MAG-OX multivitamin TABS Take 1 tablet by mouth daily. Mycophenolate mofetil 250 MG CAPS Take 4 capsules by mouth every 12 hours. Doctor's comments: Z94.2 s/p lung transplant 12/11/2018 Commonly known as: CELLCEPT OneTouch Ultra STRP strip 400 strips by Instructed route 2 times daily. Doctor's comments: e11.9 Generic drug: glucose blood test strips oxybutynin CR 10 MG tab XL tablet Take 1 tablet by mouth daily. Commonly known as: DITROPAN-XL Pantoprazole [address] tablet DR Take 1 tablet by mouth 2 times daily. Commonly known as: PROTONIX prednisoLONE acetate 1 % SUSP ophthalmic suspension Place 1 drop in right eye 2 times daily. Commonly known as: PRED FORTE predniSONE 5 MG TABS take 1 tablet by mouth daily Doctor's comments: Z94.2 s/p lung transplant 12/11/18 Commonly known as: DELTASONE Rosuvastatin 10 MG TABS Take 1 tablet by mouth daily. Commonly known as: CRESTOR SITagliptin 100 MG TABS Take 1 tablet by mouth daily. Commonly known as: Januvia Sulfamethoxazole-trimethoprim 800-160 MG per tablet Take 1 tablet by mouth three times a week. Commonly known as: BACTRIM DS Tacrolimus 0.5 MG CAPS Take 1 capsule by mouth daily every morning AND 1 capsule every evening. Doctor's comments: Z94.2 s/p lung transplant 12/11/18 Commonly known as: PROGRAF documented in this encounter [facility] 05-21-2023 Hospital course Narrative Hospital Medicine Discharge Summary Patient: Nick Hernández, : 1960, Date of face to face patient encounter: 05/21/2023 Admission Details Admit Date 05/16/2023 Discharge Date 05/21/2023 Inpatient Days 5 Primary Diagnoses Acute encephalopathy, resolved. workup nonconclusive, reported back to baseline per patient and . History of lung transplant on immunosuppression Action Items MRI brain with and without contrast as outpatient Neuropsych clinic follow-up PCP within 10 days Follow-up with transplant pulmonary clinic PCP / pulm team to follow on results of autoimmune encephalopathy, paraneoplastic panels Summary of Hospitalization Dear Doctors, I recently had the opportunity to care for Nick Hernández during his recent hospital stay at [facility]. As you may know, Mr Hernández is a 63yo M with PMH COPD s/p BOLT (11/2018) who was admitted to MICU from OSH for acute encephalopathy and seizure like activity req intubation and sedation. Acute encephalopathy, resolved Subjective hx from of worsening mental status . CT head negative for acute process at OSH. MRI at OSH showed diminished cerebral volume w/o acute changes. LP obtained at outside hospital, they agreed to run additional labs for us. Current LP and cultures negative, low suspicion for infectious process meningitic emperic coverage with meropenem, acyclovir, ampicillin D/C. - Neurology consulted, > EEG completed without seizures > autoimmune encephalopathy, paraneoplastic panels: pending. > Heavy metals, lyme pending [facility] - agreed to fax any additional infectious work ups > lyme AB: pending > HIV1/2, Syphilis, MMA: neg > CTH unremarkable > MRI brain with and without contrast was ordered but patient and felt he is back to his normal, completely asymptomatic and requesting to go home and have the MRI as outpatient. My evaluation with him before discharge, per to be normal, oriented x3 aware about indication of his hospital stay, clinical condition and follow-up. I met with and she agrees about the plan. And she feels very comfortable to discharge him home. Also psych consulted before DC , and started on citalopram. Discussed with Neuro and with Pulmonary team and they are okay with this plan. Outpatient MRI brain was ordered. Also Neuro psych referral was ordered before discharge. Patient indicated to follow-up with PCP for those S/p bilateral lung transplant for end stage COPD 12/11/2018 Chronic R hemidiaphragm paralysis follows with Dr. Espino at [facility]. 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 Bronch with BAL performed at OSH --> PNA PCR, respiratory culture negative. Limited viral respiratory panel negative at OSH including covid, human metapneumo, paraflu. Procal negative 0.06 at OSH - Restarted Tacro and Cellcept - Transplant team was on board , he will follow-up with Transplant Clinic after discharge. BMI: 27.7 Upon discharge the patient's code was Full Code Please see the remainder of this document for relevant data from this admission as well as the patient's discharge instructions and follow-up appointments. An electronic copy of the patient's records can be obtained via [facility] at [email or web address] It has been my pleasure participating in this patient's care. Please contact me with any questions or concerns regarding his hospital stay. The total time of discharge was 32 minutes. Sincerely, ALEX Keene/[facility] Division of Hospital Medicine Relevant Data from this Admission Temp: [97.6 F (36.4 C)-98.1 F (36.7 C)] 97.6 F (36.4 C) Pulse (Heart Rate): [65-89] 65 Resp Rate: [16-22] 22 BP: (137-161)/(76-90) 139/80 O2 Sat (%): [94 %-96 %] 95 % Weight: [90.4 kg (199 lb 3.2 oz)] 90.4 kg (199 lb 3.2 oz) Physical Exam Gen: Alert, Awake, NAD Eyes: PERRLA, EOMI, no icterus ENT: MMM, trachea midline Resp: CTA & P, normal respiratory effort Cardio: RRR, normal S1, S2, no M/R/G. No AXEL. GI: S/NT/ND, NABS MS: No joint effusions or erythema Skin: No jaundice or rash Neuro: loom changer 3-7, 9-11 intact and equal. Strength grossly equal in muscle groups of the bilateral UEs and LEs. Psych: Ox3, appropriate affect and cognition Recent Labs 05/21/23 0220 WBC 5.77 HGB 13.1* PLATELET 190 SODIUM 141 POTASSIUM 3.8 CO2 21 ANIONGAP 18* BUN 16 CREATSERUM 1.03 MAGNESIUM 1.8 PHOSPHORUS 3.8 Patient Instructions No future appointments. No follow-up provider specified. Medication List for when you go home START taking these medications Citalopram 10 MG TABS Take 1 tablet by mouth daily. Commonly known as: CELEXA Start taking on: May 22, 2023 hydrOXYzine HCl 25 MG TABS Take 1 tablet by mouth 3 times daily as needed for Anxiety or Insomnia for up to 20 days. Commonly known as: ATARAX CONTINUE taking these medications Acetaminophen 325 MG tablet Take 2 tablets by mouth every 6 hours as needed for mild or moderate pain. Commonly known as: TYLENOL Alcohol Swabs 70 % PADS 1 Each by Unknown route 2 times daily. alendronate 70 MG TABS Take 1 tablet by mouth every 7 days. Commonly known as: FOSAMAX amLODIPine 5 MG TABS Take 1 tablet by mouth daily. Commonly known as: NORVASC aspirin 81 MG CHEW chewable tablet Chew 1 tablet daily. Commonly known as: RA Aspirin Adult Low Dose Azithromycin 250 MG TABS Take 1 tablet by mouth every Tuesday, Tuesday and Tuesday. Commonly known as: ZITHROMAX Calcium Citrate-Vitamin D 315-200 MG-UNIT TABS Take 1 tablet by mouth every 12 hours. carveDILOL 25 MG TABS Take 1 tablet by mouth 2 times daily. Commonly known as: COREG Ergocalciferol 1.25 MG (81717 UT) CAPS Take 1 capsule by mouth once a week. Commonly known as: VITAMIN D2 Gabapentin 400 MG CAPS TAKE 1 CAPSULE BY MOUTH EVERY MORNING, TAKE 2 CAPSULES BY MOUTH EVERY AFTERNOON and TAKE 1 CAPSULE BY MOUTH EVERY EVENING Doctor's comments: G62.9 Commonly known as: NEURONTIN Lancets MISC 1 Each by Unknown route 2 times daily. magnesium oxide 400 MG TABS Take 2 tablets by mouth every 12 hours. Commonly known as: MAG-OX multivitamin TABS Take 1 tablet by mouth daily. Mycophenolate mofetil 250 MG CAPS Take 4 capsules by mouth every 12 hours. Doctor's comments: Z94.2 s/p lung transplant 12/11/2018 Commonly known as: CELLCEPT OneTouch Ultra STRP strip 400 strips by Instructed route 2 times daily. Doctor's comments: e11.9 Generic drug: glucose blood test strips oxybutynin CR 10 MG tab XL tablet Take 1 tablet by mouth daily. Commonly known as: DITROPAN-XL Pantoprazole [address] tablet DR Take 1 tablet by mouth 2 times daily. Commonly known as: PROTONIX prednisoLONE acetate 1 % SUSP ophthalmic suspension Place 1 drop in right eye 2 times daily. Commonly known as: PRED FORTE predniSONE 5 MG TABS take 1 tablet by mouth daily Doctor's comments: Z94.2 s/p lung transplant 12/11/18 Commonly known as: DELTASONE Rosuvastatin 10 MG TABS Take 1 tablet by mouth daily. Commonly known as: CRESTOR SITagliptin 100 MG TABS Take 1 tablet by mouth daily. Commonly known as: Januvia Sulfamethoxazole-trimethoprim 800-160 MG per tablet Take 1 tablet by mouth three times a week. Commonly known as: BACTRIM DS Tacrolimus 0.5 MG CAPS Take 1 capsule by mouth daily every morning AND 1 capsule every evening. Doctor's comments: Z94.2 s/p lung transplant 12/11/18 Commonly known as: PROGRAF documented in this encounter [facility] 05-21-2023 Miscellaneous Notes Instruction reviewed with patient, patient/family verbalizes understanding, all questions addressed at this time. I.V. lines removed per policy, dressing dry intact. Problem: Patient Care Overview Goal: Plan of Care Review Outcome: Adequate for Discharge Problem: Patient Care Overview Goal: Individualization & Mutuality Outcome: Adequate for Discharge Problem: Patient Care Overview Goal: Discharge Needs Assessment Outcome: Adequate for Discharge Problem: OT - Dressing Goal: Lower Body Dressing Description: Pt will complete LE dressing tasks with supervision for improved ability to complete self-care activities. Outcome: Adequate for Discharge Problem: OT - ADLs Goal: Grooming Description: Pt will complete grooming in standing with Mod I for improved ability to safely complete ADLs. Outcome: Adequate for Discharge Goal: Toileting Description: Pt will complete toileting task including clothing management with Mod I for improved ability to safely complete self-care activities. Outcome: Adequate for Discharge Problem: OT - Endurance Goal: Endurance Functional Task Standing Description: Pt will engage in standing functional task for 8 minutes with supervision to improve activity tolerance necessary for safe ADL completion at recommended discharge destination. Outcome: Adequate for Discharge Problem: OT - Transfers Goal: Transfers Toilet/Bedside Commode Description: Pt will transfer to/from toilet/BSC with supervision for improved ability to safely complete ADLs. Outcome: Adequate for Discharge Problem: OT - Strength/ROM Goal: Strength/ROM ADL Participation Description: Pt will demonstrate independence with UE exercise program to prevent deconditioning while in the hospital and to maximize UE ROM/coordination/strength for ADL participation. Outcome: Adequate for Discharge Pt amb in hallway @ least 4 times around lap 460 ft x 4 =1820 ft independently on RA. Pt making mult ambulations in [place]. Problem: PT - Mobility Goal: Ambulation Description: Pt will ambulate 250 feet with least restrictive device with modified independence to improve ability to navigate home environment. Outcome: Completed Goal: Stairs Description: Pt will ascend/descend 2 stairs with prn use of railings with modified independence with least restrictive device to improve ability to perform functional mobility necessary in recommended discharge environment. Outcome: Completed Problem: PT - Transfers Goal: Sit <-> Stand Description: Pt will perform sit to/from stand transfers with modified independence with least restrictive device in order to improve functional mobility and safety. Outcome: Completed Problem: PT - Transfers Goal: Supine <-> Sit Description: Pt will perform bed mobility with flat bed & no rail with independence in order to improve functional mobility and safety. Outcome: Adequate for Discharge Goal: Strength/ROM Description: Pt will perform 3 sets of 15 repetitions of lower extremity exercises with independence in order to improve strength, maintain ROM, necessary for functional mobility. Outcome: Adequate for Discharge Problem: Patient Care Overview Goal: Plan of Care Review Outcome: Ongoing Goal: Individualization & Mutuality Outcome: Ongoing Goal: Discharge Needs Assessment Outcome: Ongoing Goal: Interdisciplinary Rounds/Family Conf Outcome: Ongoing Problem: OT - ADLs Goal: Grooming Description: Pt will complete grooming in standing with Mod I for improved ability to safely complete ADLs. Outcome: Progressing Toward Goal Problem: OT - Endurance Goal: Endurance Functional Task Standing Description: Pt will engage in standing functional task for 8 minutes with supervision to improve activity tolerance necessary for safe ADL completion at recommended discharge destination. Outcome: Progressing Toward Goal Problem: OT - Transfers Goal: Transfers Toilet/Bedside Commode Description: Pt will transfer to/from toilet/BSC with supervision for improved ability to safely complete ADLs. Outcome: Progressing Toward Goal Problem: Patient Care Overview Goal: Plan of Care Review Outcome: Ongoing Goal: Individualization & Mutuality Outcome: Ongoing Goal: Discharge Needs Assessment Outcome: Ongoing Problem: Ventilation, Mechanical Invasive (Adult) Goal: Signs and Symptoms of Listed Potential Problems Will be Absent, Minimized or Managed (Ventilation, Mechanical Invasive) Description: Signs and symptoms of listed potential problems will be absent, minimized or managed by discharge/transition of care (reference Ventilation, Mechanical Invasive (Adult) CPG). Outcome: Adequate for Discharge Problem: Nutrition, Enteral (Adult) Goal: Signs and Symptoms of Listed Potential Problems Will be Absent, Minimized or Managed (Nutrition, Enteral) Description: Signs and symptoms of listed potential problems will be absent, minimized or managed by discharge/transition of care (reference Nutrition, Enteral (Adult) CPG). Outcome: Adequate for Discharge Problem: OT - Dressing Goal: Lower Body Dressing Description: Pt will complete LE dressing tasks with supervision for improved ability to complete self-care activities. Outcome: Ongoing Problem: OT - ADLs Goal: Grooming Description: Pt will complete grooming in standing with Mod I for improved ability to safely complete ADLs. Outcome: Ongoing Goal: Toileting Description: Pt will complete toileting task including clothing management with Mod I for improved ability to safely complete self-care activities. Outcome: Ongoing Problem: OT - Endurance Goal: Endurance Functional Task Standing Description: Pt will engage in standing functional task for 8 minutes with supervision to improve activity tolerance necessary for safe ADL completion at recommended discharge destination. Outcome: Ongoing Problem: OT - Transfers Goal: Transfers Toilet/Bedside Commode Description: Pt will transfer to/from toilet/BSC with supervision for improved ability to safely complete ADLs. Outcome: Ongoing Problem: OT - Strength/ROM Goal: Strength/ROM ADL Participation Description: Pt will demonstrate independence with UE exercise program to prevent deconditioning while in the hospital and to maximize UE ROM/coordination/strength for ADL participation. Outcome: Ongoing Problem: PT - Mobility Goal: Ambulation Description: Pt will ambulate 250 feet with least restrictive device with modified independence to improve ability to navigate home environment. 05/18/2023 1356 by Luís Rajput PT Outcome: Ongoing 05/18/2023 135 by Luís Rajput PT Outcome: Ongoing Goal: Stairs Description: Pt will ascend/descend 2 stairs with prn use of railings with modified independence with least restrictive device to improve ability to perform functional mobility necessary in recommended discharge environment. 05/18/2023 1356 by Luís Rajput, JASON Outcome: Ongoing 05/18/2023 135 by Luís Rajput PT Outcome: Ongoing Problem: PT - Transfers Goal: Supine <-> Sit Description: Pt will perform bed mobility with flat bed & no rail with independence in order to improve functional mobility and safety. 05/18/2023 1356 by Luís Rajput PT Outcome: Ongoing 05/18/2023 135 by Luís Rajput PT Outcome: Ongoing Goal: Sit <-> Stand Description: Pt will perform sit to/from stand transfers with modified independence with least restrictive device in order to improve functional mobility and safety. 05/18/2023 1356 by Luís Rajput PT Outcome: Ongoing 05/18/2023 135 by Luís Rajput PT Outcome: Ongoing Goal: Strength/ROM Description: Pt will perform 3 sets of 15 repetitions of lower extremity exercises with independence in order to improve strength, maintain ROM, necessary for functional mobility. 05/18/2023 1356 by Luís Rajput PT Outcome: Ongoing 05/18/2023 1355 by Luís Rajput PT Outcome: Ongoing Problem: Patient Care Overview Goal: Plan of Care Review Outcome: Ongoing Goal: Individualization & Mutuality Outcome: Ongoing Goal: Discharge Needs Assessment Outcome: Ongoing Goal: Interdisciplinary Rounds/Family Conf Outcome: Ongoing Problem: Nutrition, Enteral (Adult) Goal: Signs and Symptoms of Listed Potential Problems Will be Absent, Minimized or Managed (Nutrition, Enteral) Description: Signs and symptoms of listed potential problems will be absent, minimized or managed by discharge/transition of care (reference Nutrition, Enteral (Adult) CPG). Outcome: Ongoing Respiratory Therapy Shift Assessment Nick Hernández is a 63 y.o. male Plan of care/Rounds Updates: SBT this afternoon. SAT failed this morning secondary to agitation. Monitor mental status. Full Code No active isolations Admit reason: No chief complaint on file. There were no encounter diagnoses. Pulm/Smoking Hx: Past Medical History: Diagnosis Date Anxiety COPD (chronic obstructive pulmonary disease) with emphysema Herpes zoster Hiatal hernia Nephrolithiasis Presence of granulation tissue 04/16/2019 Added automatically from request for surgery [id number] Primary osteoarthritis of right hip 12/06/2019 Added automatically from request for surgery [id number] Tracheal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 notes this has been going on longer. The describes his changes as him getting more angry and forgetful. 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 Earlier on day of admission to [facility] ([facility]) the noticed he was acting himself, but after climbing out of the well and started having SOB and became agitated and altered. Upon arrival to , pt reports he is back to his baseline. His only complaint is chronic low back pain. Objective Temp: [97.1 F (36.2 C)-97.9 F (36.6 C)] 97.7 F (36.5 C) Pulse (Heart Rate): [68-96] 90 Resp Rate: [11-54] 14 BP: (127-187)/(75-103) 187/98 O2 Sat (%): [94 %-98 %] 98 % Gen: well appearing, NAD. Pleasant and conversational HENT: NCAT, MMM, no scleral icterus Chest: No increased WOB, lungs CTAB w/o w/r/r CV: RRR, no murmurs appreciated, no peripheral edema Abd: SNTND, NABS Ext: WWP, symmetric Neuro: Alert, oriented x3, FARAZ, normal gait Psych: appropriate, goal-directed Data Review WBC/Hgb/Hct/Plts: 6.14/13.3/41.8/193 (05/20 110) Na/K+/Phos/Mg/Ca: 142/4.2/3.3/2.3/-- (05/20 110) Bun/Creat/Cl/CO2/Glucose: 11/0.80/108/24/129 (05/20 0110-05/20 1130) I have reviewed all the relevant laboratory and imaging studies. Images from the original note were not included. LUNG TRANSPLANT CONSULT NOTE Referring provider: Sanam Zuniga Conrad is a 63 y.o. male s/p lung transplantation. IMPRESSION AND RECOMMENDATIONS Drug Levels Lab Results Component Value Date TACROLIMUS 4.2 05/20/2023 TACROLIMUS 2.7 (L) 05/19/2023 TACROLIMUS 16.2 (H) 02/26/2021 Lab Results Component Value Date TACROTRGHMAN 5.4 03/22/2023 TACROTRGHMAN 5.0 02/22/2023 TACROTRGHMAN 5.4 01/24/2023 Transplant Bilateral lung transplant (12/11/18) for COPD (Dr. Reyna) Allograft function: declining - Reference FEV1 = 2.88 L (reset due to weight gain 01/31/20); 80% = 2.30 Immunosuppression, high risk meds, therapeutic drug monitoring PLAN: - Tacrolimus: Goal trough: 4-6; - Mycophenolate: 1000mg bid - Prednisone: 5 mg daily - TITUS Prophylaxis: azithromycin Respiratory PLAN: - Doing well post extubation ID CMV D-/R- EBV D+/R+ Vaccinations Influenza: Jul 2021 per patient PCV13: 05/09/18 COVID-19: 01/09/21, 02/06/21 (Moderna); 10/16/21; 08/13/22 PLAN: PPSV23 due, please administer inpatient. Prophylaxis: - Bactrim 1 DS QMWF CV CAD, diffuse HTN PLAN: - ASA, Coreg, Norvasc Renal / Mg wasting due to CNI PLAN: - Monitor BUN/Cr - Mg supplementation GI GERD PLAN: - PPI Heme Anemia PLAN: - Monitor CBC Endocrine Osteoporosis Prediabetes PLAN: - Ca / Vit D - sitagliptin Musculoskeletal / Skin PLAN: - Maintain activity level - Annual dermatologic evaluation Neuro/Psych Admitted with encephalopathy of undetermined etiology. PLAN: - Utox positive for Marijuana - autoimmune encephalopathy, paraneoplastic panels: pending. > Heavy metals, lyme pending - CTA with basilar artery high grade stenosis. Awaiting neuro's recs. - Awaiting repeat MRI Brain w/ and w/o contrast, recommend adding on neuroquant analysis to evaluate for a potential neurodegenerative process - Awaiting psych recs - On gabapentin Colonoscopy and Bone densitometer due outpatient POST TRANSPLANT HISTORY - planned Bilateral lung transplantation (12/11/18) for COPD (Dr. Reyna) - Induction with Basiliximab on Day 0 and 4 - PGD @ T24: 0 - PGD @ T48: 0 - PGD @ T72: 0 - Graft function - Reference FEV1 = 2.88 L (reset due to weight gain 01/31/20); 80% = 2.30 - Status - ABO O positive - CMV: Donor NEG Recipient NEG - EBV: Donor POS Recipient POS - Infection: - Donor cultures: S aureus, C albicans - Recipient cultures: S pseudointermedius - 12/12/18 BAL: Metapneumovirus - Ribavirin + prednisone taper - 12/26/18 BAL: Metapneumovirus - Ribavirin + prednisone taper - 03/13/19 BW: S epidermidis, S lugunensis - 04/10/19 BAL: E cloacae - 02/04/21 Thigh bx: Herpesvirus - valacyclovir x 7 days - Transbronchial biopsies: - 02/06/19: A0B0. BALT hyperplasia - 03/13/19: A0B1, aspirated vegetable material - 03/13/19 EBBx: granulation tissue/inflammatory polyp - 04/10/19 EBBx: exuberant granulation tissue with suppurative inflammation - 05/22/19: A0Bx - 07/17/19 EBBx: granulation tissue - 09/03/19 TBBx: A0Bx, focal stenosis (ISHLT stenosis c, c). 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); asymptomatic - Nephrolithiasis s/p lithotripsy - Airway issues: benign growth (granulation tissue), focal moderate BI stenosis (ISHLT stenosis c,c) - - Severe R hip arthritis s/p R COTY (03/06/20) - Lumbar compression fractures s/p vertebroplasties - H/o Bronchial granulation tissue requiring repeat excision; RBI stenosis (ISHLT c, c) - Erectile Dysfunction - 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 Taken to OSH for agitation and confusion. He became unresponsive at arrival to the ED and per report demonstrated seizure like activity. He was intubated and received Keppra load and Propofol and Versed gtt along with the Fentanyl gtt. He was transferred to [facility] ICU for further management. At OSH Procal 0.06. Troponin < 0.012. Urinalysis unremarkable. At the OSH, bronch and BAL were performed, with BAL and LRCx studies pending. RVP and MRSA nares reportedly negative. LP obtained, glucose 62, protein 83, CSF studies pending. MRI Brain obtained, significant for diminished cerebral volume and evidence of chronic white matter small vessel ischemic change. Per pt's over the past 1-2 years patient's behavior has been angry and more erratic. Per lung mail service coordinator notes this has been going on longer. The describes his changes as him getting more angry and forgetful. 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 Earlier on day of admission to OSH ([facility]) the noticed he was acting himself, but after climbing out of the well and started having SOB and became agitated and altered. He is doing well. Plan for psych consult inpatient. Discharge pending eval. . REVIEW OF SYSTEMS All other systems reviewed and are negative for pertinent findings except as mentioned in the HPI/Interval History. MEDICATIONS AND ALLERGIES Current Outpatient Medications Medication Sig Last Dose Start Date End Date Authorizing Provider acetaminophen 325 MG tablet Take 2 tablets by mouth every 6 hours as needed for mild or moderate pain. 05/03/22 Nick Lopez MD Alcohol Swabs 70 % Pads 1 Each, Unknown, 2 TIMES DAILY 04/29/22 Akbar Davis DO alendronate 70 MG tablet 70 mg, Oral, EVERY 7 DAYS 07/01/22 Akbar Davis DO amLODIPine 5 MG tablet 5 mg, Oral, DAILY 07/30/22 Nick Lopez MD aspirin (RA Aspirin Adult Low Dose) 81 MG Chew Tab chewable tablet 81 mg, Oral, DAILY 09/12/22 Nick Lopez MD azithromycin 250 MG tablet 250 mg, Oral, EVERY M, W & F 09/15/22 09/15/27 Stephania De León, INTERIOR [employer] Calcium Citrate-Vitamin D 315-200 MG-UNIT tablet 1 tablet, Oral, EVERY 12 HOURS 07/01/22 Akbar Davis DO carveDILOL 25 MG tablet 25 mg, Oral, 2 TIMES DAILY 03/17/23 Nick Lopez MD ergocalciferol 1.25 MG (23224 UT) capsule 50,000 Units, Oral, WEEKLY 07/01/22 Akbar Davis DO Gabapentin 400 MG capsule TAKE 1 CAPSULE BY MOUTH EVERY MORNING, TAKE 2 CAPSULES BY MOUTH EVERY AFTERNOON and TAKE 1 CAPSULE BY MOUTH EVERY EVENING 10/28/22 04/27/23 Nick Lopez MD glucose blood test strips (OneTouch Ultra) Strip strip 400 strips, Instructed, 2 TIMES DAILY 04/29/22 Akbar Davis DO Lancets Misc 1 Each, Unknown, 2 TIMES DAILY 12/22/22 Christelle Espino MD magnesium oxide 400 MG tablet 800 mg, Oral, EVERY 12 HOURS 07/07/22 Nick Lopez MD multivitamin (multivitamin) tablet 1 tablet, Oral, DAILY 07/01/22 Akbar Davis DO mycophenolate mofetil (CELLCEPT) 250 MG capsule 1,000 mg, Oral, EVERY 12 HOURS 06/02/22 Nick Lopez MD oxybutynin CR 10 MG Tab SR 24 HR tablet 10 mg, Oral, DAILY 04/23/22 Historical Provider pantoprazole [address] DR 40 mg, Oral, 2 TIMES DAILY 07/30/22 Nick Lopez MD prednisoLONE acetate 1 % Suspension ophthalmic suspension 1 drop, Right Eye, 2 TIMES DAILY 05/03/23 Historical Provider predniSONE 5 MG tablet 5 mg, Oral, DAILY 03/04/23 Nick Lopez MD Rosuvastatin 10 MG tablet 10 mg, Oral, DAILY 03/17/23 Nick Lopez MD SITagliptin (Januvia) 100 MG tablet 100 mg, Oral, DAILY 07/01/22 Akbar Davis, sulfamethoxazole-trimethoprim 800-160 MG per tablet 1 tablet, Oral, THREE TIMES WEEKLY 09/13/22 09/13/27 Nick Lopez MD tacrolimus (PROGRAF) 0.5 MG capsule Take 1 capsule by mouth daily every morning AND 1 capsule every evening. 06/02/22 Nick Lopez MD Allergies: Allergies Allergen Reactions Breo Ellipta [Fluticasone Furoate-Vilanterol] Shortness of Breath Codeine Hives PHYSICAL EXAM BP (!) 187/98 (BP Location: Right arm, BP Position: Sitting) Comment: pt speaking w MD - flailing arms around - unable to get an accurate BP Pulse 90 Temp 97.7 F (36.5 C) (Oral) Resp 14 Ht 1.829 m (6') Wt 92.4 kg (203 lb 11.3 oz) SpO2 98% BMI 27.63 kg/m Smoking Status Former Body mass index is 27.63 kg/m . Wt Readings from Last 3 Encounters: 05/16/23 92.4 kg (203 lb 11.3 oz) 05/09/23 95.6 kg (210 lb 11.2 oz) 11/08/22 99.1 kg (218 lb 8 oz) GENERAL: Well-developed male. Sitting in chair. On NC. No distress HEENT: Pupils equal, round. NECK: Neck supple. No lymphadenopathy. No thyromegaly. No stridor. CARDIOVASCULAR: Regular rate and regular rhythm. No murmurs, rubs or gallops. Normal S1 and S2. PULMONARY: . No wheezing, rhonchi or rales. GASTROINTESTINAL: Soft, non-tender, non-distended. Bowel sounds present. MUSCULOSKELETAL: No cyanosis, clubbing. No joint effusions or erythema. SKIN: Warm and dry. No jaundice or rash. Trace edema NEUROLOGIC: intubated. Perrla. PSYCHIATRIC: relates that he is in pain. A little irate DATA REVIEW CBC Lab Results Component Value Date WBC 6.14 05/20/2023 HGB 13.3 (L) 05/20/2023 HCT 41.8 05/20/2023 PLATELET 193 05/20/2023 MCV 91.3 05/20/2023 CMP Lab Results Component Value Date SODIUM 142 05/20/2023 POTASSIUM 4.2 05/20/2023 CHLORIDE 108 05/20/2023 CO2 24 05/20/2023 BUN 11 05/20/2023 CREATSERUM 0.80 05/20/2023 GLUCOSE 129 (H) 05/20/2023 Lab Results Component Value Date ALT 15 05/16/2023 AST 19 05/16/2023 GGT 29 03/22/2023 ALKPHOS 48 05/16/2023 BILITOTAL 0.4 05/16/2023 BILIDIRECT 0.1 05/16/2023 Lab Results Component Value Date CMVPCR Not detected 03/22/2023 Imaging/Radiological Studies I have personally reviewed and interpreted the radiographic data in IS. PFT Results 01/28/2021 12:00 04/01/2021 12:00 04/29/2021 12:00 05/27/2021 12:00 06/29/2021 11:00 PFT Results FVC-Pre 3.84 Liters FVC 4.38 4.07 4.33 4.5 FVC % Pred, % Ref 85 79 84 88 FVC-%Pred-Pre 83 % FEV1-Pre 2.36 Liters FEV1 Pre Liters 2.6 2.44 2.66 2.57 FEV1 % Pred % Ref 66 63 68 66 FEV1-%Pred-Pre 67 % FEV1/FVC-Pre 61 % FEV1/FVC % Ref 59 60 61 57 [id number] 0.99 L/sec FEF 25-75% 1.21 % 1.03 % 1.16 % 0.93 % TLCPleth-Pre 5.98 Liters RVPleth-Pre 1.84 Liters DLCOunc-Pre 25.27 mL/mmHg/min DLCOunc-%Pred-Pre 89 % DLCOcor-%Pred-Pre 93 % 07/29/2021 12:00 09/21/2021 12:00 10/29/2021 12/01/2021 12:00 12/28/2021 12:00 PFT Results FVC-Pre 4.47 Liters FVC 4.23 4.08 4.43 3.96 FVC % Pred, % Ref 82 79 86 77 FVC-%Pred-Pre 96 % FEV1-Pre 2.81 Liters FEV1 Pre Liters 2.6 2.55 2.77 2.46 FEV1 % Pred % Ref 67 65 71 63 FEV1-%Pred-Pre 79 % FEV1/FVC-Pre 63 % FEV1/FVC % Ref 62 63 82 62 [id number] 1.49 L/sec FEF 25-75% 1.12 % 1.22 % 1.32 % 1.11 % TLCPleth-Pre 5.7 Liters RVPleth-Pre 1.6 Liters DLCOunc-Pre 23.55 mL/mmHg/min DLCOunc-%Pred-Pre 83 % DLCOcor-%Pred-Pre 80 % 01/28/2022 12:00 03/30/2022 12:00 05/03/2022 15:00 05/31/2022 12:00 07/01/2022 12:00 PFT Results FVC-Pre 4.15 Liters FVC 4.31 3.69 4.22 4.43 FVC % Pred, % Ref 84 72 82 87 FVC-%Pred-Pre 90 % FEV1-Pre 2.65 Liters FEV1 Pre Liters 2.77 2.09 2.52 2.74 FEV1 % Pred % Ref 71 54 65 71 FEV1-%Pred-Pre 76 % FEV1/FVC-Pre 64 % FEV1/FVC % Ref 64 57 60 62 [id number]-Lci 1.37 L/sec FEF 25-75% 1.46 % 0.65 % 1.07 % 1.25 % TLCPleth-Pre RVPleth-Pre DLCOunc-Pre DLCOunc-%Pred-Pre DLCOcor-%Pred-Pre 07/30/2022 12:00 08/30/2022 12:00 09/29/2022 12:00 11/08/2022 13:32 11/29/2022 12:00 PFT Results FVC-Pre 3.9 Liters 3.9 Liters FVC 4.1 4.05 3.85 3.78 FVC % Pred, % Ref 80 79 75 77 FVC-%Pred-Pre 84 % 84 % FEV1-Pre 2.68 Liters 2.68 Liters FEV1 Pre Liters 2.68 2.5 2.33 2.36 FEV1 % Pred % Ref 69 65 60 62 FEV1-%Pred-Pre 76 % 76 % FEV1/FVC-Pre 69 % 69 % FEV1/FVC % Ref 65 62 60 62 [id number] 1.73 L/sec 1.73 L/sec FEF 25-75% 1.2 % 1.07 % 1.03 % TLCPleth-Pre 5.32 Liters 5.32 Liters RVPleth-Pre 1.33 Liters 1.33 Liters DLCOunc-Pre 25.61 mL/mmHg/min 25.61 mL/mmHg/min DLCOunc-%Pred-Pre 91 % 91 % DLCOcor-%Pred-Pre 89 % 89 % 12/27/2022 12:00 01/24/2023 12:00 02/28/2023 12:00 03/28/2023 12:00 05/09/2023 13:23 PFT Results FVC-Pre 3.68 Liters FVC 3.9 3.63 3.56 3.98 FVC % Pred, % Ref 79 71 70 78 FVC-%Pred-Pre 80 % FEV1-Pre 2.41 Liters FEV1 Pre Liters 2.41 2.32 2.22 2.46 FEV1 % Pred % Ref 64 60 57 64 FEV1-%Pred-Pre 69 % FEV1/FVC-Pre 65 % FEV1/FVC % Ref 62 64 62 62 [id number] 1.31 L/sec FEF 25-75% 1.08 % 1.04 % 1.16 % TLCPleth-Pre 5.54 Liters RVPleth-Pre 1.61 Liters DLCOunc-Pre 23.94 mL/mmHg/min DLCOunc-%Pred-Pre 86 % DLCOcor-%Pred-Pre 87 % Details More values are hidden. Newest values shown. Go to activity for more data. Head CTA: Nonvisualization of the basilar artery and the distal vertebral arteries which could be related to high-grade stenosis. Prominent bilateral posterior communicating arteries likely supplying the posterior circulation. OSH Head MRI: Diminished cerebral volume and evidence of chronic white matter small vessel ischemic change without acute intracranial abnormality. Paranasal sinus disease. Small bilateral mastoid effusions. PULMONARY CXR 8/1/23 No significant change from the previous examination including properly positioned endotracheal tube. CT Chest - 11/08/22 10/29/2021 Pending official read - appears stable No definite change from the previous study. Chronic elevation of the right hemidiaphragm with some volume loss and scarring in the right lung base remains, but the transplant lungs are otherwise clear. Irregularity of the bronchus intermedius appears unchanged. No definite air trapping is seen at this time, though the difference is likely a consequence of poor depth of expiration, particularly when compared to the prior study. 6MWT 02/26/21: 1598 feet (487 meters), lowest SpO2 97%, oxygen requirement: Room air 02/22/19: 1591 feet (485 meters), lowest SpO2 99%, oxygen requirement: Room air 09/28/18 (pre-tx): 984 feet (300 meters), lowest SpO2 95%, oxygen requirement: 3 LPM CARDIOLOGY TTE - 10/29/21 Left Ventricle: Chamber size is normal. Normal wall thickness. Normal global wall motion. Regional wall motion is normal. Ejection fraction is normal (60 - 65%). Diastolic function is normal. Left Atrium: Chamber size is moderately enlarged. Mitral Valve: Normal appearing leaflets. Leaflet mobility is normal. Trace regurgitation. No valve stenosis. Tricuspid Valve: Normal leaflets. Leaflet mobility is normal. Trace regurgitation. No stenosis. No echo/Doppler evidence for pulmonary hypertension. 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 There has been improvement of bone density since the previous examination. Colonoscopy - 06/21/2018 1. Cecum: Normal appearance no mass lesions normal IIeocecal valve. 2. Ascendlng colon. Normal appearance no mass lesions. 3. Transverse colon: Normal appearance. 2 polyps were identified. One was removed with biopsy forceps completely. The other was removed removed with snare cautery technique. Both of them were brought back to the channel of the scope. 4. Descending colon: Small polyp was identlfled was removed with snare cautery technique and brought back to the channel the scope. 5. Sigmold colon: Normal appearance minlmal dlverticular disease seen. 6. Rectum: Normal appearance no mass lesIons Internal hemorrholds were Identifled. Scope was withdrawn digital rectal exam showed no masses within the anus and a normal prostate smooth and small. Panchito will need to have another colonoscopy In 3 years. MICROSCOPIC DIAGNOSIS Transverse colon polyps, biopsy: Fragments of tubular adenoma. Fragments of fecal material. PSA - 02/26/21 2.03 Christelle Espino MD Division of Pulmonary, Critical Care & Sleep Medicine Department of Internal Medicine [facility] Acute Physical Therapy Treatment Prior to Admission AMPAC score(s): PRIOR LEVEL AM-PAC Mobility Raw Score: 24 PRIOR LEVEL AM-PAC Activity Raw Score: 24 Current AM-PAC score(s): CURRENT AM-PAC Mobility Raw Score: 24 Based on the above AM-PAC score(s) and PT clinical judgment, patient is a good candidate for discharge to Home Barriers to discharge home: None Mobility equipment available at home: none used ADL equipment available at home: grab bars Equipment needed for discharge: none Current therapy frequency recommendation in acute: Therapy Frequency: no therapy warranted Activity Recommendations for outside of rehab session: Recommend at least TID ambulation in hallways. From mobility perspective, safe to ambulate off unit. Precautions and Weightbearing Status: Existing Precautions/Restrictions: no known precautions/restrictions No critical lines at this time Patient Safety Communication Prior to Visit: Physician, Nursing Subjective: Patient reports feeling great. Wants to discharge. Pain: General Pain Documentation (Adult, OB, Peds) Presence of Pain: complains of pain/discomfort Pain Location: back DVPRS (Defense and Veterans Pain Rating Scale) DVPRS: Rest: 7- severe pain Objective/Observation: O2 Device: room air Cognition Overall Cognitive Status: Within Functional Limits Arousal/Alertness: Appropriate responses to stimuli Orientation Level: Oriented X4 Following Commands: Follows all commands and directions without difficulty Safety Judgment: Good awareness of safety precautions Deficits: Fully aware of deficits Extremity Assessments: See PT Evaluation flowsheet for Extremity Measurement updates. Skin and Edema: Balance: Sitting Balance Static Sitting-Level of Assistance: Independent Dynamic Sitting-Level of Assistance: Independent Sitting Balance Skilled Intervention/Details: In recliner, maneuvers self without difficulty. Standing Balance Static Standing-Level of Assistance: Independent Dynamic Standing-Level of Assistance: Independent Standing-Balance Support: No upper extremity supported Standing Balance Skilled Intervention/Details: Ambulatory without difficulty, appropriately navigates obstacles. Mobility Assessment/Intervention: Supine to Sit Mobility Williams Level: Supine->Sit: not tested Skilled Intervention/Details: Supine->Sit: No difficulty performing per patient/RN. Transfer Assessment/Intervention: Sit to Stand Transfer Williams Level: Sit->Stand: independent Skilled Intervention/Details: Sit->Stand: From recliner, without difficulty. Stand to Sit Transfer Williams Level: Stand->Sit: independent Skilled Intervention/Details: Stand->Sit: To recliner. Appropriate safety and environmental awareness demonstrated. Gait/Functional Mobility Assessment/Intervention: Gait Assessment Williams Level: Gait: independent Ambulation Distance (Feet): 500 Skilled Intervention/Details - Gait: Ambulated without difficulty, conversing throughout, navigates obstacles appropriately. Denies dyspnea. Stairs Assessment/Intervention: Stairs Assessment Williams Level: Stair Negotiation: independent Number of stairs: 13 Stairs Skilled Rationale: reciprocal pattern, verbal, general safety Skilled Intervention/Details - Stairs: Navigated without use of handrail with reciprocal steps without difficulty. Outcome Score(s): CURRENT [facility] Basic Mobility Inpatient Short Form Turning over in bed: 4 - No Assistance Sitting/standing from chair: 4 - No Assistance Moving from lying on back to sittin - No Assistance Moving to and from bed to chair: 4 - No Assistance Walk in hospital room: 4 - No Assistance Climbing 3-5 steps with a railin - No Assistance CURRENT [facility] Mobility Raw Score: 24 CURRENT [facility] Mobility Functional Limitation/Modifier: 0.00% Currently Impaired in Basic Mobility - Interventions: Assessment & Plan: Patient overall making excellent progress on this date, having accomplished all functional goals. No further need for acute PT identified, patient in agreement. Patient Instruction/Education this session: Educated in methods to maintain strength and promote independence while in hospital to prevent deconditioning and functional decline. Provided mobility-related education including precautions associated with current functional level and ongoing disease processes in order to promote mobility and maintain functional independence while in acute environment. Post-session safety check/medical line integrity: All lines/tubes/drains intact at the conclusion of the physical therapy session unless otherwise documented in this note. Plan for next session: No further acute PT recommended. Acute PT Goals Plan of Care by Laith Grider PT at 05/20/2023 10:50 AM Version 1 of 1 Problem: PT - Mobility Goal: Ambulation Description: Pt will ambulate 250 feet with least restrictive device with modified independence to improve ability to navigate home environment. Outcome: Completed Goal: Stairs Description: Pt will ascend/descend 2 stairs with prn use of railings with modified independence with least restrictive device to improve ability to perform functional mobility necessary in recommended discharge environment. Outcome: Completed Problem: PT - Transfers Goal: Sit <-> Stand Description: Pt will perform sit to/from stand transfers with modified independence with least restrictive device in order to improve functional mobility and safety. Outcome: Completed Problem: PT - Transfers Goal: Supine <-> Sit Description: Pt will perform bed mobility with flat bed & no rail with independence in order to improve functional mobility and safety. Outcome: Adequate for Discharge Goal: Strength/ROM Description: Pt will perform 3 sets of 15 repetitions of lower extremity exercises with independence in order to improve strength, maintain ROM, necessary for functional mobility. Outcome: Adequate for Discharge PT treatment consisted of the following to progress towards the above goal(s): PT Evaluation and Treatment Time Gait Training Time Entry: 11 Treating Therapist: Laith Grider PT Additional Details: Co-evaluation/co-treatment performed?: No simultaneous skilled care performed I used facemask, protective eye shield, and gloves in today's patient interaction. Patient location at end of session: chair Alarms on at end of session: RN aware and family present Needs in reach. Time In: 1050 Time Out: 1101 Total Visit Time: 11 minutes Total Treatment Time (skilled, billable minutes): 11 minutes Upon discontinuation of Acute Care Physical Therapy Services or patient discharge from the hospital this note represents the current Physical Therapy Discharge Summary. MICU Attending Statement I have seen, examined and discussed Mr. Hernández with the MICU team on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 5.9%. Home regimen includes sitagliptin. - SSI - Holding home delvis ISAIAS - resolved Baseline Cr ~1.0-1.1, on admission at OSH was noted at 1.6. Suspect prerenal given resolution with IVF at OSH. Urine lytes and osms obtained at OSH with FeNa 0.7% at that time. Patient creatinine has trended down with fluids. - daily chem Acute normocytic anemia Baseline hgb ~14. Less concern for acute bleed at this time given hemodynamic instability, absence of melena or other red flag symptoms. Transfusion goals hgb >7, plt >50 or >10 in the setting of acute bleed. - daily cbc, trend DVT PPX:Lovenox Code Status: Full Code Disposition: transfer from MICU Discussed with team and attending, Dr. North, on rounds. Signed, Verena Sy DO Family Medicine PGY1 NEUROLOGY CONSULTATION FOLLOW UP NOTE Reason for consultation: 63 y/o M, transfer from [facility], c/f seizure activity, loaded with keppra at OSH, burst suppression on OSH EEG. Appreciate recs for ongoing antiepileptic mgmt and EEG here. History of present illness: Nick Hernández is a 63 y.o. male with history of COPD s/p BL lung transplant (11/2018; immunosuppressed with Tacrolimus, Mycophenolate, Prednisone), CAD, HTN, chronic back pain who presented as transfer from [facility] for AMS, respiratory distress and seizure like activity. 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 Had been having personality changes (angry and forgetful) for past 3 months. On 05/05 had SOB and was agitated for which his contacted transplant team and was advised for ED visit if similar presentation again. In the meanwhile he was seen by transplant team at outpatient. On 05/15 was driving patient to the hospital and while on the way pt became agitated followed by unresponsiveness requiring BVM. On being more alert he complained of back pain between shoulder blades and loss of sensation in legs. On arrival to ER, he was noted to have seizure like activity twice and was intubated for airway protection. Seizure semiology is not described in the chart. He was started on cEEG and received keppra load (4.5g 201405/15/23) was also started on Propofol, Versed, and Fentanyl gtt. cEEG so far did not show any epileptiform activity other than burst suppression. CT C/A/P showed some atelectasis vs infiltrate in the RLL and no other acute changes. On admission to MICU at OSH his antimicrobial coverage was changed from Vanc, Zosyn, and Acyclovir to Meropenem and azithromycin. He had bronchoscopy there. LP was done under fluoroscopy guidance. 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 He has several exposures to farm animals, frequent consumer of cured meats, but no known history of consuming unpasteurized dairy products, no known sick contacts. No recent rashes. Of note, during the lung transplant, EBV was donor and recipient positive, CMV donor and recipient negative. Interval History: No seizures captured on cvEEG over 48 hours. Mentation improved and extubated yesterday. Appears to essentially be back to baseline at this time. Review of Systems: Pertinent items are noted in the HPI, all other systems were queried and are negative. Past Medical History: Diagnosis Date Anxiety COPD (chronic obstructive pulmonary disease) with emphysema Herpes zoster Hiatal hernia Nephrolithiasis Presence of granulation tissue 04/16/2019 Added automatically from request for surgery [id number] Primary osteoarthritis of right hip 12/06/2019 Added automatically from request for surgery [id number] Tracheal stenosis 03/12/2020 Added automatically from request for surgery [id number] Past Surgical History: Procedure Laterality Date BRONCHOSCOPY FLEXIBLE DIAGNOSTIC N/A 05/28/2020 Laterality: N/A; Surgeon: LARRY Mosley; Location: [facility] BRONCHOSCOPY [place] BRONCHOSCOPY FLEXIBLE DIAGNOSTIC Bilateral 04/02/2020 Laterality: Bilateral; Surgeon: LARRY Mosley; Location: [facility] [place]ON[facility]OSCOPY [place] BRONCHOSCOPY FLEXIBLE W/ TRACHEAL BRONCHIAL DILATION AND/OR STENT PLAC N/A 04/02/2020 Laterality: N/A; Surgeon: LARRY Mosley; Location: [facility] BR[place]CHOSCOPY [place] HIP SURGERY Right 03/06/2020 BRONCHOSCOPY W/ TRANSBRONCHIAL BX SINGLE LOBE Bilateral 12/11/2019 Laterality: Bilateral; Surgeon: Akbar Davis DO; Location: [facility] BRONCHOSCOPY [place] BRONCHOSCOPY W/ TUMOR DESTRUCTION OR STENOSIS RELIEF Bilateral 12/11/2019 Laterality: Bilateral; Surgeon: Duke Reyes MD; Location: [facility] BR[place]CHOSCOPY [place] BRONCHOSCOPY W/ TUMOR DESTRUCTION OR STENOSIS RELIEF Bilateral 09/04/2019 Laterality: Bilateral; Surgeon: Akbar Davis DO; Location: [facility] BRONCHOSCOPY [place] BRONCHOSCOPY W/ TUMOR DESTRUCTION OR STENOSIS RELIEF Bilateral 07/17/2019 Laterality: Bilateral; Surgeon: Nick Lopez MD; Location: [facility] BRONCHOSCOPY [place] BRONCHOSCOPY W/ TUMOR DESTRUCTION OR STENOSIS RELIEF Right 05/22/2019 Laterality: Right; Surgeon: Josie Pyle DO; Location: [facility] BRONCHOSCOPY [place] BRONCHOSCOPY FLEXIBLE W/ TRACHEAL BRONCHIAL DILATION AND/OR STENT PLAC Right 05/22/2019 Laterality: Right; Surgeon: Josie Pyle DO; Location: [facility] BRONCHOSCOPY [place] BRONCHOSCOPY W/ TUMOR DESTRUCTION OR STENOSIS RELIEF Bilateral 04/10/2019 Laterality: Bilateral; Surgeon: Matthew Dvaila MD, PhD; Location: [facility] [place]OSCOPY [place] BRONCHOSCOPY W/ TRANSBRONCHIAL BX SINGLE LOBE Bilateral 03/13/2019 Laterality: Bilateral; Surgeon: Matthew Davila MD, PhD; Location: [facility] BRONCHOSCOPY [place] BRONCHOSCOPY W/ TRANSBRONCHIAL BX SINGLE LOBE N/A 02/06/2019 Laterality: N/A; Surgeon: Matthew Davila MD, PhD; Location: [facility] BRONCHOSCOPY [place] BRONCHOSCOPY FLEXIBLE W/ BRONCHIAL ALVEOLAR LAVAGE Bilateral 12/26/2018 Laterality: Bilateral; Surgeon: Nick Lopez MD; Location: [facility] BRONCHOSCOPY TRANSPLANT LUNG DOUBLE W/ BYPASS Bilateral 12/11/2018 Laterality: Bilateral; Surgeon: James Reyna MD, PhD, MPH; Location: [facility] MAIN OR ORIF WRIST TONSILLECTOMY VERTEBROPLASTY PERCUTANEOUS LUMBAR SINGLE VERTEBRAL BODY Allergies Allergen Reactions Breo Ellipta [Fluticasone Furoate-Vilanterol] Shortness of Breath Codeine Hives Medications Prior to Admission Medication Sig Dispense Refill Last Dose acetaminophen 325 MG tablet Take 2 tablets by mouth every 6 hours as needed for mild or moderate pain. 100 tablet 5 Alcohol Swabs 70 % Pads 1 Each by Unknown route 2 times daily. 100 Each 11 alendronate 70 MG tablet Take 1 tablet by mouth every 7 days. 12 tablet 3 amLODIPine 5 MG tablet Take 1 tablet by mouth daily. 90 tablet 3 aspirin (RA Aspirin Adult Low Dose) 81 MG Chew Tab chewable tablet Chew 1 tablet daily. 90 tablet 3 azithromycin 250 MG tablet Take 1 tablet by mouth every Tuesday, Tuesday and Tuesday. 36 tablet 3 Calcium Citrate-Vitamin D 315-200 MG-UNIT tablet Take 1 tablet by mouth every 12 hours. 180 tablet 3 carveDILOL 25 MG tablet Take 1 tablet by mouth 2 times daily. 180 tablet 3 ergocalciferol 1.25 MG (86304 UT) capsule Take 1 capsule by mouth once a week. 12 capsule 3 Gabapentin 400 MG capsule TAKE 1 CAPSULE BY MOUTH EVERY MORNING, TAKE 2 CAPSULES BY MOUTH EVERY AFTERNOON and TAKE 1 CAPSULE BY MOUTH EVERY EVENING 120 capsule 5 glucose blood test strips (MaestroDev Ultra) Strip strip 400 strips by Instructed route 2 times daily. 400 strip 11 Lancets Misc 1 Each by Unknown route 2 times daily. 100 Each 1 magnesium oxide 400 MG tablet Take 2 tablets by mouth every 12 hours. 360 tablet 3 multivitamin (multivitamin) tablet Take 1 tablet by mouth daily. 90 tablet 3 mycophenolate mofetil (CELLCEPT) 250 MG capsule Take 4 capsules by mouth every 12 hours. 720 capsule 3 oxybutynin CR 10 MG Tab SR 24 HR tablet Take 1 tablet by mouth daily. pantoprazole [address] tablet DR Take 1 tablet by mouth 2 times daily. 180 tablet 3 predniSONE 5 MG tablet take 1 tablet by mouth daily 90 tablet 3 Rosuvastatin 10 MG tablet Take 1 tablet by mouth daily. 90 tablet 3 SITagliptin (Januvia) 100 MG tablet Take 1 tablet by mouth daily. 90 tablet 3 sulfamethoxazole-trimethoprim 800-160 MG per tablet Take 1 tablet by mouth three times a week. 36 tablet 3 tacrolimus (PROGRAF) 0.5 MG capsule Take 1 capsule by mouth daily every morning AND 1 capsule every evening. 180 capsule 3 Current medications: Current Facility-Administered Medications Medication Dose Route Frequency Provider Last Rate Last Admin Acetaminophen (TYLENOL) tablet 650 mg 650 mg Oral Q4H PRN Fior To, DO, PhD 650 mg at 05/19/23 0328 Azithromycin (ZITHROMAX) tablet 250 mg 250 mg Oral Q MWF [facility] 250 mg at 05/18/23 1226 carveDILOL (COREG) tablet 12.5 mg 12.5 mg Oral BID Colleen Richardson MD 12.5 mg at 05/19/23 0844 Insulin lispro (HUMALOG) injection Subcutaneous 4x daily w/meals, HS Fior Soliman DO, PhD 5 Units at 05/18/23 1752 And Insulin lispro (HUMALOG) injection Subcutaneous PRN Fior Soliman DO, PhD And Dextrose 50% injection 7.5-25 g 7.5-25 g Intravenous As directed PRN Fior Soliman DO, PhD And glucose (GLUTOSE) 40 % oral gel 1-2 Tube 1-2 Tube Oral As directed PRN Fior Soliman DO, PhD Enoxaparin Sodium (LOVENOX) injection 40 mg 40 mg Subcutaneous Q24H Camilla Martin [facility] 40 mg at 05/19/23 0851 Gabapentin (NEURONTIN) capsule 400 mg 400 mg Oral TID Colleen Richardson MD 400 mg at 05/19/23 0843 lidocaine 4 % patch 1 patch 1 patch Transdermal Q24H Fior Soliman DO, PhD 1 patch at 05/18/23 1226 Magnesium sulfate 4 g in sterile water 50 ml premix IVPB 4 g Intravenous As directed PRN eJsika Ireland MD Stopped at 05/19/23 0736 Multi-Vitamins tablet 1 tablet 1 tablet Oral Daily Jesika Ireland MD 1 tablet at 05/19/23 0847 Mycophenolate mofetil (CELLCEPT) capsule 1,000 mg 1,000 mg Oral Q12H Christelle Espino MD 1,000 mg at 05/19/23 0844 Pantoprazole (PROTONIX) tablet DR 40 mg 40 mg Oral BID Jesika Ireland MD 40 mg at 05/19/23 0844 Potassium chloride 20 mEq in sterile water 50 ml premix IVPB 20 mEq Intravenous As directed PRN Jesika Ireland MD Or Potassium chloride (K-DUR) tablet ER 20 mEq 20 mEq Oral As directed PRN Jesika Ireland MD 40 mEq at 05/19/23 0715 Or Potassium Bicarb-Citric Acid (Effer-K) 20 MEQ effervescent tablets for oral solution 20 mEq 20 mEq Per NG tube As directed PRN Jesika Ireland MD 20 mEq at 05/18/23 0259 Or Potassium chloride 10 mEq in sterile water 100 ml premix IVPB 10 mEq Intravenous As directed PRN Jesika Ireland MD predniSONE (DELTASONE) tablet 5 mg 5 mg Oral Daily Jesika Ireland MD 5 mg at 05/19/23 0846 Sodium chloride 0.9% IV solution 250 mL 250 mL Intravenous PRN Jesika Ireland MD 20 mL/hr at 05/19/23 0800 Rate Verify at 05/19/23 0800 sodium phosphate 30 mmol in Sodium chloride 0.9%, with overfill 285 mL (total volume) IVPB 30 mmol Intravenous As directed PRN Jesika Ireland MD Stopped at 05/19/23 0318 Or sodium phosphate 45 mmol in Sodium chloride 0.9%, with overfill 290 mL (total volume) IVPB 45 mmol Intravenous As directed PRN Jesika Ireland MD Stopped at 05/18/23 1007 Sulfamethoxazole-trimethoprim (BACTRIM DS) 800-160 MG per tablet 1 tablet 1 tablet Oral Once per day on Tue Jesika Ireland MD 1 tablet at 05/18/23 1226 Tacrolimus (PROGRAF) capsule 1 mg 1 mg Oral Q12H Christelle Espino MD 1 mg at 05/19/23 0949 Physical Examination Temp: [97.7 F (36.5 C)-98.8 F (37.1 C)] 98 F (36.7 C) Pulse (Heart Rate): [71-100] 100 Resp Rate: [15-41] 35 BP: (131-175)/(65-97) 149/87 O2 Sat (%): [92 %-98 %] 96 % Body mass index is 27.63 kg/m . General:Sitting comfortably in bedside chair; in no acute distress. HENT: Normal oropharynx and mucosa. Normal external appearance of ears and nose. Neck: Supple, no pain or tenderness Neurological Examination Mental status: awake and alert; oriented to person, place, year, and month; good attention. Normal mood and affect. Normal insight into condition. Fund of knowledge intact. Speech/language: fluent; comprehension intact; object naming intact; repetition intact. Cranial nerves: CN II: Visual schulz intact to confrontation. PERRL. Normal conjunctivae and lids. loom changer III, IV and : extraocular movements intact. No nystagmus. CN V: Facial sensation is intact to light touch. CN VII: Facial strength normal with symmetric movement. CN VIII: Hearing is grossly intact. CN IX and X: Soft palate elevates symmetrically in the midline CN XI: Shoulder shrug and sternocleidomastoid strength (R/L) 5/5 CN XII: Tongue is midline with normal movement; no fasciculations. Motor: Normal bulk and tone. No pronator drift. SA EE EF WE WF DI HF KE KF DF PF Right 5 5 5 5 5 5 5 5 5 5 5 Left 5 5 5 5 5 5 5 5 5 5 5 Reflexes: Right Left Comments Biceps 2+ 2+ Triceps 2+ 2+ Brachioradialis 2+ 2+ Patellar 2+ 2+ Achilles 2+ 2+ Pratt Babinski Coordination: Atejze-sa-hlwy intact bilaterally. Sensation: Comments Light touch Intact throughout Pin prick Temperature Vibration Proprioception Gait: Normal stride length, width. -ve romberg Laboratory data: Bun/Creat/Cl/CO2/Glucose: 11/0.84/110/21/122 (05/19 002) Na/K+/Phos/Mg/Ca: 143/3.5/2.9/1.9/-- (05/19 002) WBC/Hgb/Hct/Plts: 8.89/12.7/38.6/186 (05/19 002) CK 72 Ammonia 32 Folate 30.85 B12 630 TSH 0.567 -ve: Crypto, RPR, HIV, lyme Pending serum: MMA, B1, Tox, Heavy metal screen, AIE panel UDS +ve MJ OSH LP: CSF lumbar puncture, clear CSF CSF Glucose 62/ Protein 83 , WBC 2, RBC 28 -ve biofire Pending CSF studies: [place], VDRL, Lyme, Immunophenotyping, Histo, Blasto, EBV, LOUISE/BK, AIE panel, Paraneoplastic panel Imaging/diagnostic procedures: cvEEG 05/17-05/19: Final read pending. 05/17-05/18 read: This is an abnormal EEG due to the presence of moderate diffuse slowing indicative of a moderate diffuse encephalopathy. Previously recorded GPDs have largely resolved. No clear localized features, clinical events or electrographic seizures recorded, clinical correlation recommended. CTH 05/17: unremarkable CTA H/N 05/17: Nonvisualization of the basilar artery and the distal vertebral arteries which could be related to high-grade stenosis. Prominent bilateral posterior communicating arteries likely supplying the posterior circulation. MRI brain wo contrast at OSH (imaging not currently available): IMPRESSION: 1. Diminished cerebral volume and evidence of chronic white matter small vessel ischemic change without acute intracranial abnormality. 2. Paranasal sinus disease. 3. Small bilateral mastoid effusions. cEEG at OSH on 05/16/23: This continuous EEG with video is abnormal. A persistent generalized burst-attenuation pattern is seen as evidenced by brief generalized bursts of fast activity intermixed with brief intervals of generalized attenuation. No clearcut epileptiform activity nor seizures are seen. The findings are consistent with a [id number] global encephalopathy nonspecific as to etiology and confounded by sedation. Impression: Nick Hernández is a 63 y.o. male with history of COPD s/p BL lung transplant (11/2018; immunosuppressed with Tacrolimus, Mycophenolate, Prednisone), CAD, HTN, chronic back pain who presented as transfer from [facility] for AMS, respiratory distress and seizure like activity. Patient is essentially back to baseline at this time with an unremarkable/non-focal neurologic exam. believes he is still slightly confused but he demonstrates no significant cognitive deficits on assessment. Given his rapid improvement off all AEDs and without empiric steroid treatment, very low clinical suspicion for an autoimmune/paraneoplastic encephalitis. He also underwent ~72 hours of cvEEG monitoring (48h here, 24h OSH) without any epileptiform activity captured making seizure significantly less likely as well. Given his report of feeling SOB/overheated prior to event, would consider convulsive syncope vs PNEE (with the latter particularly intriguing with his reported personality changes). ICI toxicity is still a consideration but again less likely with such a rapid improvement. Recommendations: - I have discontinued cvEEG - MRI Brain w/ and w/o contrast, recommend adding on neuroquant analysis to evaluate for a potential neurodegenerative process - Will continue to follow up pending studies Patient staffed with Dr. Simon Thank you for the consultation. If you have any further questions, please contact the neurology consult team B resident. Binh Carrero MD PGY-4 Associated attestation - Margaret Simon DO - 05/19/2023 8:34 PM EDT I saw and personally examined the patient today with the resident/fellow. I discussed the findings and therapeutic plan with the resident/fellow. I agree with the history, physical examination, and medical decisions as outlined. MICU Attending Statement I have seen, examined and discussed Mr. Hernández with the MICU team on 05/19/2023. I have independently reviewed today's labs as per housestaff note and in EHR. I reviewed and edited the note by the housestaff and agree with the physical exam findings, assessment and plan. Chief Complaint: multiple BMs HPI/ROS as per resident note. No acute events overnight. More alert. extubated yesterday, doing well, tolerating diet. Multiple BMs in past day. with questions about tacrolimus and current memory issues. Oriented, but confused about social security deposit and other IADLs per . She feels his mental status changes may have started with steroid eye drops started for chemical eye burn. On my exam, I find he is awake, alert, conversant, mildly confused at times, no distress sitting up in chair. Heart RRR. Lungs clear; no rales, rhonchi, wheezes. Abdomen soft, nontender, nondistended, hypoactive bowel sounds. No major peripheral edema. No myoclonus or seizure-like activity. Imaging personally reviewed; CXR shows ETT in place, elevated R hemidiaphragm Lab Results Component Value Date TACROLIMUS 2.7 (L) 05/19/2023 TACROLIMUS 16.2 (H) 02/26/2021 TACROLIMUS 16.2 (H) 12/06/2019 Lab Results Component Value Date TACROTRGHMAN 5.4 03/22/2023 TACROTRGHMAN 5.0 02/22/2023 TACROTRGHMAN 5.4 01/24/2023 Assessment/Plan: as per resident's note. In brief, 1. Acute encephalopathy with concern for status epilepticus on admission; basilar/vertebral artery stenoses: infectious, heavy metals, autoimmune, paraneoplastic, lyme pending. BP goal <140/90 due to stenoses. EEG completing this AM, appreciate Neurology. MRI after EEG completed. Considering Psychiatry consult. 2. Acute respiratory failure due to encephalopathy: resolved 3. History of bilateral lung transplant 2019 for COPD with chronic R hemidiaphragm paralysis: appreciate Transplant Pulmonary input. Immunosuppression her their plan. Monitor tacrolimus levels. 4. Acute anemia - multifactorial: stable; monitoring 5. Chronic pain: gabapentin, Lidocaine patch (no heat over this), Tylenol PRN (may consider scheduling) 6. Recent Eye burn with question of adverse reaction to steroid eye drops per : Ophthalmology consult Stable for transfer out of ICU. Shagufta North MD, MSc Attending (Amusement Park Ride Mechanic), Pulmonary/Critical Care Acute Occupational Therapy Treatment Prior to Admission AM-PAC Score: PRIOR LEVEL AM-PAC Activity Raw Score: 24 PRIOR LEVEL AM-PAC Mobility Raw Score: 24 Current AM-PAC score(s): CURRENT AM-PAC Activity Raw Score: 19 Based on the above AM-PAC score(s), and OT clinical judgment, discharge destination recommendation is: Home Barriers to discharge home: Patient needs assistance with self-care for medical condition (see note below), Patient needs assistance with ADLs, Patient needs assistance with functional mobility Mobility equipment available at home: none used ADL equipment available at home: grab bars Equipment recommendations for discharge: shower chair Current therapy frequency recommendation(s) in acute: 3 times a week Activity Recommendations for outside of rehab session: Up to chair daily, ambulate to bathroom Precautions and Weightbearing Status: OT Existing Precautions/Restrictions: fall Telemetry Patient Safety Communication Prior to Visit: Nursing, Rehab team, Physician Subjective: Pt seated in arm chair upon arrival agreeable and motivated to participate in OT session. Pain: General Pain Documentation (Adult, OB, Peds) Presence of Pain: denies pain/discomfort Presence of Pain Score (Auto-calculated): 0 Objective/Observation: Vitals/Vitals Responses to Treatment: VSS. No overt signs or symptoms of distress. O2 Device: room air Vision Screen Currently wearing corrective lenses: No Visual Impairments Observed?: No Speech Speech: no gross deficits noted Successful Methods (Communication Strategies): verbal speech Hearing Hearing: no gross deficits noted Cognition Overall Cognitive Status: Within Functional Limits Arousal/Alertness: Appropriate responses to stimuli Orientation Level: Oriented X4 Following Commands: Follows all commands and directions without difficulty Safety Judgment: Good awareness of safety precautions Awareness of Errors: Good awareness of errors made Deficits: Fully aware of deficits Attention Span: Appears intact Memory: Appears intact Problem Solving: Able to problem solve independently ADL Assessment/Intervention: Eating Assistance: Grooming Assistance: Set up supervision Grooming Location: standing at sink Grooming Deficit: Retrieval of items Grooming Skilled Rationale (Verbal/Tactile/Visual/Demonstrati on): Setup Grooming Intervention/Details: Pt completed grooming tasks including oral hygiene and cleaning dentures while standing at sink with setup of items. Pt was combing EEG residue out of hair upon arrival without difficulty Bathing Assistance: UE Dressing Assistance: LE Dressing Assistance: Toilet Assistance: Extremity Assessments: See OT Evaluation flowsheet for Extremity Measurement updates. Balance: Sitting Balance Static Sitting-Level of Assistance: Independent Dynamic Sitting-Level of Assistance: Supervision Skilled Rationale: Verbal cues Sitting Balance Skilled Intervention/Details: No loss of balance while seated unsupported Standing Balance Static Standing-Level of Assistance: Supervision Dynamic Standing-Level of Assistance: Stand-by assist Standing-Balance Support: No upper extremity supported Skilled Rationale: Verbal cues, Cues for increased safety Standing Balance Skilled Intervention/Details: No overt loss of balance during static or dynamic standing tasks. No UE assist for balance Transfer Assessment/Intervention: Sit to Stand Transfer Williams Level: Sit->Stand: supervision Assistive Device: Sit->Stand: armed chair Skilled Rationale: Verbal cues, Cues for increased safety Skilled Intervention/Details: Sit->Stand: x 2 from arm chair; Cues for initiation Stand to Sit Transfer Williams Level: Stand->Sit: supervision Assistive Device: Stand->Sit: armed chair Skilled Rationale: Verbal cues, Cues for increased safety Skilled Intervention/Details: Stand->Sit: x 2 to arm chair; Cues for hand placement and controlled descent with good follow through Functional Mobility: Functional Mobility Williams Level: Functional Mobility/Gait: stand-by assist Functional Mobility Distance: Distance needed for limited community mobility Functional Mobility Deficits: Generalized weakness Functional Mobility Skilled Rationale: Verbal cues Skilled Intervention/Details - Functional Mobility/Gait: Pt completed functional mobility within room and hallway without an AD + assist to manange IV pole with portable telemetry for up to 6 minutes at a time. No loss of balance or shortness of breath observed Outcome Score(s): CURRENT -[facility] Daily Activity Inpatient Short Form Putting on/Taking Off Lower Body Clothin - A Little Assistance Bathin - A Little Assistance Toiletin - A Little Assistance Putting on/Taking Off Upper Body Clothin - A Little Assistance Groomin - A Little Assistance Eatin - No Assistance [facility] Raw Score: 19 [facility] Activity Functional Limitation/Modifier: 42.80% Currently Impaired in Daily Activity - CK Assessment & Plan: Pt is progressing toward stated goals. Pt continues to be limited by functional deficits including self-care, functional mobility, endurance/functional activity tolerance, and insight to deficits. Pt continues to require skilled OT services to address functional deficits to achieve highest practical level of safety and independence with daily tasks and routine to meet OT goals. Patient Instruction/Education this session: Patient Instruction: Role of OT and OT plan of care Plan for next session: Standing balance/tolerance, Acute OT Goals Plan of Care by Ángel Jimenez OT at 05/19/2023 9:38 AM Version 1 of 1 Problem: OT - ADLs Goal: Grooming Description: Pt will complete grooming in standing with Mod I for improved ability to safely complete ADLs. Outcome: Progressing Toward Goal Problem: OT - Endurance Goal: Endurance Functional Task Standing Description: Pt will engage in standing functional task for 8 minutes with supervision to improve activity tolerance necessary for safe ADL completion at recommended discharge destination. Outcome: Progressing Toward Goal Problem: OT - Transfers Goal: Transfers Toilet/Bedside Commode Description: Pt will transfer to/from toilet/BSC with supervision for improved ability to safely complete ADLs. Outcome: Progressing Toward Goal OT treatment consisted of the following to work and progress towards the above goal(s): OT Evaluation and Treatment Time Self Care/Home Management (ADLs) Time Entry: 10 Therapeutic Activity Time Entry: 19 Treating Therapist: Ángel Jimenez OT Additional Details: Co-evaluation/co-treatment performed?: No simultaneous skilled care performed I used facemask, protective eye shield, and gloves in today's patient interaction. Patient location at end of session: chair Alarms on at end of session: none and RN aware Needs in reach and all medical lines, tubes, and drains intact. Time In: 09 Time Out: 1007 Total Visit Time: 29 minutes Total Treatment Time (skilled, billable minutes): 29 minutes Upon discontinuation of Acute Care Occupational Therapy Services or patient discharge from the hospital this note represents the current Occupational Therapy Discharge Summary. MICU DAILY PROGRESS NOTE IDENTIFYING INFORMATION PATIENT: Nick Hernández ADMIT DATE: 05/16/2023 TIME OF EVALUATION: 05/18/2023 4:31 PM HOSPITAL STAY: LOS: 2 days SUBJECTIVE/INTERVAL HISTORY No Acute Overnight Event. Patient was extubated this morning. He was seen sitting in chair. A&Ox4. He reports having back pain. Denies chest pain, SOB, N/V, diarrhea, constipation, melena and hematochezia. Last BM was 05/17. Barriers to discharging to floor: PT/OT recommendations: Anticipate discharge to home ASSESSMENT AND PLAN In summary, Nick Hernández is a 63 y.o. male with PMH of bilateral lung transplant, COPD, HTN, DM. Presented for acute mental status changes, respiratory failure, possible seizure activity in setting of a year of progressive personality changes. Today patient is doing well on room air, is more alert and oriented, was able to come down on sedation, extubate, and remove restraints. Infection panels have been negative suggesting non-infectious process. Updates today: - Extubated today - EEG monitoring in progress - Discontinued meropenem - restarted home Coreg Acute encephalopathy C/f status epilepticus Subjective hx from of worsening mental status . CT head negative for acute process at OSH. MRI at [facility] showed diminished cerebral volume w/o acute changes. LP obtained at outside hospital, they agreed to run additional labs for us. Current LP and cultures negative, low suspicion for infectious process meningitic emperic coverage with meropenem, acyclovir, ampicillin D/C. Patient is far more alert / oriented today, no seizure activity overnight or on EEG. - Neurology consulted, following > Undergoing EEG today - will continue for full 48h > Consider psych consult per transplant and neuro recs > autoimmune encephalopathy, paraneoplastic panels: pending. > Heavy metals, lyme pending Gust - agreed to fax any additional infectious work ups > lyme AB: pending > HIV1/2, Syphilis, MMA: neg > CTH unremarkable >Will order MRI brain and spine after EEG monitoring - meningitic coverage initially started with meropenem; acyclovir, ampicillin. Antibiotics (except ppx) discontinued due to low concerns for infxn Acute hypoxic respiratory failure, intubated for airway protection S/p bilateral lung transplant for end stage COPD 12/11/2018 Chronic R hemidiaphragm paralysis B/l lung transplant at [facility] on 12/11/2018, follows with Dr. Espino at [facility]. 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 Bronch with BAL performed at OSH --> PNA PCR, respiratory culture negative. Limited viral respiratory panel negative at OSH including covid, human metapneumo, paraflu. Procal negative 0.06 at OSH. Patient had not been taking transplant medications since admission, had been holding Tacrolimus, mycophenolate due to concern for ISAIAS at [facility]. Patient extubated this morning and doing well on room air. - Restarted Tacro and Cellcept on 05/18 - goal tacro level tomorrow morning (tacro goal 4-6) - Transplant team following- recs appreciated Concerns for basilar artery and vertebral artery stenosis CTA brain/neck demonstrate possible high grade stenosis of the basilar artery and distal vertebral arteries - BP goal <140/90 HTN Home regimen: amlodipine 5 mg and coreg 25 mg BID - Restarted Coreg at reduced dose of 12.5 mg BID Chronic back pain - Tylenol PRN - Gabapentin 400 mg TID - Lidocaine patch - Heatpack Hyperglycemia History of prediabetes Last a1c 5.9%. Home regimen includes sitagliptin. - SSI - Holding home januvia ISAIAS - resolved Baseline Cr ~1.0-1.1, on admission at OSH was noted at 1.6. Suspect prerenal given resolution with IVF at OSH. Urine lytes and osms obtained at OSH with FeNa 0.7% at that time. Patient creatinine has trended down with fluids. - daily chem Acute normocytic anemia Baseline hgb ~14. Less concern for acute bleed at this time given hemodynamic instability, absence of melena or other red flag symptoms. Transfusion goals hgb >7, plt >50 or >10 in the setting of acute bleed. - daily cbc, trend Access: [x] PIV [] PICC [] Central [] NG [] PEG [] A-line [] HD [] Other: Checklist: CAM-ICU: negative Sedation: [] Fentanyl [] Propofol [] Precedex [x] None IVF: No Diet/Nutrition: DIET CARB CONTROLLED DVT ppx: Lovenox GI Prophylaxis: pantoprazole Bowel regimen: []Senna []Miralax []Milk of Magnesia []Suppository PRN Glycemic Control: []Basal [x]SSI Lispro []SSI regular [] None Restraints: No SBT?: Not intubated Mobility: Working with PT/OT Family updated? Yes Code Status: Full Code Disposition: Continue inpatient management This plan was discussed on rounds with the attending physician, Colleen Richardson MD . Plan preliminary until cosigned/attested by attending physician. Fior Soliman DO, PhD PGY-1, Resident, Department of Internal Medicine [facility] Pager [phone] OBJECTIVE FINDINGS Vital Signs (24hrs): Temp: [97.5 F (36.4 C)-98.7 F (37.1 C)] 98.7 F (37.1 C) Pulse (Heart Rate): [51-83] 83 Resp Rate: [7-30] 30 BP: (137-173)/(71-84) 137/73 O2 Sat (%): [95 %-100 %] 95 % I/O last 3 completed shifts: In: 1859.4 [P.O.:440; I.V.:276; NG/GT:535.5; IV Piggyback:607.9] Out: 2150 [Urine:2150] Physical Examination: General: No acute distress. Awake and conversant. Eyes: Normal conjunctiva, anicteric. Round symmetric pupils. ENT: Hearing grossly intact. No nasal discharge. Neck: Neck is supple, FROM CV: RRR, Normal heart sounds, no murmurs. . Pulm: CTAB. Respirations are non-labored. No wheezes, rales or rhonchi. Abdomen: Soft, non-tender and non-distended. No rebound or guarding. MSK: No lower extremity edema Skin: Warm and dry. No rashes or ulcers Psych: Alert and oriented. Cooperative, Appropriate mood and affect, Normal judgment. Neuro: Able to move all 4 limbs. No gross deficits noted. DIAGNOSTIC RESULTS/PROCEDURES Labs-ABGs Labs-CBC WBC/Hgb/Hct/Plts: 8.57/12.7/39.4/158 (05/18 112) Labs-Chem 7(R [facility]) Bun/Creat/Cl/CO2/Glucose: 10/0.63/109/22/157 (05/18 112-05/18 1201) Na/K+/Phos/Mg/Ca: 140/3.8/1.5/2.3/-- (05/18 112) Labs-Coags Associated attestation - Colleen Richardson MD - 05/19/2023 9:34 AM EDT Attending addendum: I have independently seen and examined the patient. I independently reviewed the medical records, labs & imaging studies. I discussed the findings and management plan and agree with the assessment and plan as outlined above with the following additions/amendments: Nick is a 63 yr old M with a pmh of bilateral lung transplant in 2019 (for COPD), CAD, HTN, DM that presented from OSH with AMS ultimately requiring intubation and transfer to [facility] for further evaluation. The Pt reportedly has been having personality changes over the last several months (though after further discussion with transplant team it has been years), with changes in temperament, confusion, and some perseveration over certain issues.On 05/15 the Pt was pulling up water from the well when he had acute onset agitation/AMS. The Pts placed him in car to go to hospital at which time he became progressively more agitated then became unresponsive. On arrival to the OSH ED he had seizure-like activity twice and was ultimately intubated for airway protection. CTH negative. He had an MRI brain at OSH which was read as diminished cerebral volume and chronic small vessel changes, the OSH is not able to transmit images electronically, so only report available. LP was preformed, CSF Glucose 62/ Protein 83 , WBC 2, RBC 28. Biofire panel negative. CT A/P noted patchy airspace opacities in lung bases, varying degrees of vascular stenosis (severe near the left internal iliac artery origin), no acute process identified. He was placed on WILDLIFE PHOTOGRAPHER coverage with IV abx. I am worried about subacute neurologic process given reported personality changes over time, unclear how acute mental status changes will fit into picture unless this just represents continuum of some neuropsychiatric process. After speaking with neurology paraneoplastic process could be in differential and can manifest in seizure like activity. Atypical infectious processes also on ddx though seem less likely (though he certainly has some exposures here). I did see + marijuana in [place], no [place]AR[place] fills for THC products, perhaps may have accidentally consumed marijuana that was laced with another substance- will need to explore this with Pt- though this wouldn't account for subacute changes. His mental status is much improved today, extubated this am. Follow-up extensive neurologic work-up including infectious work-up and paraneoplastic panel. Will touch base with neurology re: taking off cEEG as well as need for further imaging vs. Funnel Coater to obtain previous MRI images. Will discontinue Meropenem today if okay with transplant team- no evidence of ongoing bacterial infection at this time. Appreciate transplant pulmonary recommendations for IS. I spent 40 minutes in the intensive care unit providing critical care services to Mr. Hernández today independent of procedures and other care providers. My time managing this critically ill patient included review of interval history, laboratories, radiology and consultation reports; performing a physical examination; discussing the patient with the multi-disciplinary team and managing life sustaining therapies to prevent imminent clinical deterioration as outlined above. Colleen Richardson MD Pulmonary Critical Care Medicine Advanced Care Planning Assessment HCPOA Agent(s): none on file, but would like to complete; SW aware Legal Next of Kin: 1. Spouse 2. All Adult Children Advanced Care Planning Has the patient completed Advance Directives?: Not Completed Referral to Social Work for Advance Care Planning? : Patient Agreeable (SW aware) Legal Next of Kin Does the patient have a Guardian?: No Spouse: Yes Name and Contact information: Sulma Hernández ([phone]) Adult Child(danielle), List All Adult Children: Yes Name and Contact information: Aysha Garcia ([phone]) Would you like to add additional adult children?: Yes Name and Contact information: also has a son Referral to Social Work to Identify Legal Next of Kin?: No Reviewed and Updated in Demographics? : Yes Reno Dhillon, MSN, INTERIOR HORTICULTURIST Clinical Finger Buff SewerFire Assistant Intensive Care Unit Discharge Planning Patient Assessment Admission Assessment Patient Assessment Completed: Initial Anticipated discharge disposition: Home Reason for Admission: Acute Encephalpathy c/f seizures Is the patient able to participate in the assessment?: Yes Information source: Patient, Spouse, Review of Medical Record Demographics Verified and Updated: Yes Has the patient been admitted to any hospital in the last 30 days?: Transferred From Outside Hospital Advanced Care Planning Has the patient completed Advance Directives?: Not Completed Referral to Social Work for Advance Care Planning? : Patient Agreeable (SW aware) Legal Next of Kin Does the patient have a Guardian?: No Spouse: Yes Name and Contact information: Sulma Melendezming ([phone]) Adult Child(danielle), List All Adult Children: Yes Name and Contact information: Aysha Lewishart ([phone]) Would you like to add additional adult children?: Yes Name and Contact information: also has a son Referral to Social Work to Identify Legal Next of Kin?: No Reviewed and Updated in Demographics? : Yes Outpatient Providers Does patient have a primary care physician? : Yes When was the patient's last PCP visit?: > 30 days Does the patient follow any specialists?: Yes Reviewed and updated Care Team?: Yes Patient Care Team: Liana Loja DO as PCP - General (Family Medicine) Lala Ruvalcaba, RN as Supervisor Filter Assembly (Transplant) Comfort Arndt, RN as Supervisor Filter Assembly (Transplant) MCKAY Noel (Physician Railroad Brakeman) James Reyna MD, PhD, MPH (Cardiac Surgery) Environment/Caregivers Is the patient from a facility or halfway?: No Patient lives with: Spouse or Partner Living Environment: House Does the patient have a first floor set-up with bed and bathroom?: Yes Patient Caregiving Responsibilities: Self Patient-identified caregiver/support network: Family Who does the patient identify as a teachable caregiver(s)?: Spouse or Partner, Child(danielle) - Independent Services Does the patient use a home health or hospice agency?: No Does the patient use any community programs or services?: Yes Select Program, Services, Resources : ([employer]: assist with housing equipment/improvements) Does patient use DME? : grab bars Does the patient use oxygen?: No Does patient use medical supplies? : none Anticipated Changes Related to Illness/Injury? : No Initial ADLs Prior to Arrival What is the patient's baseline physical functioning prior to this acute illness?: independent What is the patient's baseline cognitive functioning prior to this acute illness?: independent Is the patient's baseline functioning changed by this acute illness? : No Concerns with patient being able to care for themselves at home? : No Are there therapy or specialists consults?: Yes Select consult type: PT, OT CM to recommend therapy or other consults? : No Medication Management Does the patient have prescription insurance coverage? : Yes Is the patient on Anticoagulation? : No [facility] - [place] [address] [id number] [facility] [address] [facility] [id number] [employer] Does the patient or commissary representative express financial concerns? : No Employed?: Disabled Coping/Stress Concerns about patient s coping and stress?: No Concerns about patient s caregiver s coping and stress?: No Identified Caregiver Values and Beliefs Cultural or judaism practices that may impact discharge planning and/or medical care?: No Initial Discharge Planning Anticipated discharge disposition: Home Transportation Available for Discharge: Family or Friend Anticipated DME: none Patient Assessment Completed: Initial Risk of Readmission: 8.2 Category Reference: High:16-100 Mod-High:10-16 Mod-Low: 5-10 Low: 0-5 Expected Discharge Date: TBD Discharge Planning Summary Patient lives with spouse in their house and was independent with all ADLs prior to this admission. No DMEs, other than grab bars in shower, and did not use any oxygen or BiPAP/CPAP. Spouse stated that she thought he completed a HCPOA but we do not have on file and she does not have a copy; SW aware that he would like to complete another one. His LNOK is his spouse. Case Management Plan Initial assessment completed with patient and spouse and bedside. PT/OT have seen him and have recommended a safe discharge to Home. He has a PCP and Rx coverage. CM will continue to follow and assist with discharge planning as needed. Reno Dhillon, MSN, INTERIOR HORTICULTURIST Clinical Finger Buff SewerFire Assistant Intensive Care Unit Images from the original note were not included. LUNG TRANSPLANT CONSULT NOTE Referring provider: Sanam Akers Nick Hernández is a 63 y.o. male s/p lung transplantation. IMPRESSION AND RECOMMENDATIONS Drug Levels Lab Results Component Value Date TACROLIMUS 16.2 (H) 02/26/2021 TACROLIMUS 16.2 (H) 12/06/2019 TACROLIMUS 9.0 09/10/2019 Lab Results Component Value Date TACROTRGHMAN 5.4 03/22/2023 TACROTRGHMAN 5.0 02/22/2023 TACROTRGHMAN 5.4 01/24/2023 Transplant Bilateral lung transplant (12/11/18) for COPD (Dr. Reyna) Allograft function: declining - Reference FEV1 = 2.88 L (reset due to weight gain 01/31/20); 80% = 2.30 Immunosuppression, high risk meds, therapeutic drug monitoring PLAN: - Tacrolimus: Goal trough: 4-6; - Mycophenolate: 1000mg bid - Prednisone: 5 mg daily - TITUS Prophylaxis: azithromycin Respiratory Intubated for airway protection PLAN: - Doing well post extubation ID CMV D-/R- EBV D+/R+ Vaccinations Influenza: Jul 2021 per patient PCV13: 05/09/18 COVID-19: 01/09/21, 02/06/21 (Moderna); 10/16/21; 08/13/22 PLAN: Empiric antibiotics stopped for negative cx PPSV23 due Prophylaxis: - Bactrim 1 DS QMWF CV CAD, diffuse HTN PLAN: - ASA, Coreg, Norvasc Renal / Mg wasting due to CNI PLAN: - Monitor BUN/Cr - Mg supplementation GI GERD PLAN: - PPI Heme Anemia PLAN: - Monitor CBC Endocrine Osteoporosis Prediabetes PLAN: - Ca / Vit D - sitagliptin Musculoskeletal / Skin PLAN: - Maintain activity level - Annual dermatologic evaluation Neuro/Psych Admitted with encephalopathy of undetermined etiology. PLAN: - All work up negative for WILDLIFE PHOTOGRAPHER infection, acute MRI findings and cEEG no further sz. - Utox positive for Marijuana - On gabapentin Colonoscopy and Bone densitometer due outpatient POST TRANSPLANT HISTORY - planned Bilateral lung transplantation (12/11/18) for COPD (Dr. Reyna) - Induction with Basiliximab on Day 0 and 4 - PGD @ T24: 0 - PGD @ T48: 0 - PGD @ T72: 0 - Graft function - Reference FEV1 = 2.88 L (reset due to weight gain 01/31/20); 80% = 2.30 - Status - ABO O positive - CMV: Donor NEG Recipient NEG - EBV: Donor POS Recipient POS - Infection: - Donor cultures: S aureus, C albicans - Recipient cultures: S pseudointermedius - 12/12/18 BAL: Metapneumovirus - Ribavirin + prednisone taper - 12/26/18 BAL: Metapneumovirus - Ribavirin + prednisone taper - 03/13/19 BW: S epidermidis, S lugunensis - 04/10/19 BAL: E cloacae - 02/04/21 Thigh bx: Herpesvirus - valacyclovir x 7 days - Transbronchial biopsies: - 02/06/19: A0B0. BALT hyperplasia - 03/13/19: A0B1, aspirated vegetable material - 03/13/19 EBBx: granulation tissue/inflammatory polyp - 04/10/19 EBBx: exuberant granulation tissue with suppurative inflammation - 05/22/19: A0Bx - 07/17/19 EBBx: granulation tissue - 09/03/19 TBBx: A0Bx, focal stenosis (ISHLT stenosis c, c). 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); asymptomatic - Nephrolithiasis s/p lithotripsy - Airway issues: benign growth (granulation tissue), focal moderate BI stenosis (ISHLT stenosis c,c) - - Severe R hip arthritis s/p R COTY (03/06/20) - Lumbar compression fractures s/p vertebroplasties - H/o Bronchial granulation tissue requiring repeat excision; RBI stenosis (ISHLT c, c) - Erectile Dysfunction - 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 Taken to OSH for agitation and confusion. He became unresponsive at arrival to the ED and per report demonstrated seizure like activity. He was intubated and received Keppra load and Propofol and Versed gtt along with the Fentanyl gtt. He was transferred to [facility] ICU for further management. At OSH Procal 0.06. Troponin < 0.012. Urinalysis unremarkable. At the OSH, bronch and BAL were performed, with BAL and LRCx studies pending. RVP and MRSA nares reportedly negative. LP obtained, glucose 62, protein 83, CSF studies pending. MRI Brain obtained, significant for diminished cerebral volume and evidence of chronic white matter small vessel ischemic change. Per pt's over the past 1-2 years patient's behavior has been angry and more erratic. Per lung mail service coordinator notes this has been going on longer. The describes his changes as him getting more angry and forgetful. 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 Earlier on day of admission to OSH ([facility]) the noticed he was acting himself, but after climbing out of the well and started having SOB and became agitated and altered. He is alert and interactive s/p extubation, sitting in a chair. He continues to have chronic Low back pain. . REVIEW OF SYSTEMS All other systems reviewed and are negative for pertinent findings except as mentioned in the HPI/Interval History. MEDICATIONS AND ALLERGIES Current Outpatient Medications Medication Sig Last Dose Start Date End Date Authorizing Provider acetaminophen 325 MG tablet Take 2 tablets by mouth every 6 hours as needed for mild or moderate pain. 05/03/22 Nick Lopez MD Alcohol Swabs 70 % Pads 1 Each, Unknown, 2 TIMES DAILY 04/29/22 Akbar Davis DO alendronate 70 MG tablet 70 mg, Oral, EVERY 7 DAYS 07/01/22 Akbar Davis DO amLODIPine 5 MG tablet 5 mg, Oral, DAILY 07/30/22 Nick Lopez MD aspirin (RA Aspirin Adult Low Dose) 81 MG Chew Tab chewable tablet 81 mg, Oral, DAILY 09/12/22 Nick Lopze MD azithromycin 250 MG tablet 250 mg, Oral, EVERY M, W & F 09/15/22 09/15/27 Stephania De León, INTERIOR HORTICULTURIST-FINISHER BRUSH Calcium Citrate-Vitamin D 315-200 MG-UNIT tablet 1 tablet, Oral, EVERY 12 HOURS 07/01/22 Akbar Davis DO carveDILOL 25 MG tablet 25 mg, Oral, 2 TIMES DAILY 03/17/23 Nick Lopez MD ergocalciferol 1.25 MG (13135 UT) capsule 50,000 Units, Oral, WEEKLY 07/01/22 Akbar Davis DO Gabapentin 400 MG capsule TAKE 1 CAPSULE BY MOUTH EVERY MORNING, TAKE 2 CAPSULES BY MOUTH EVERY AFTERNOON and TAKE 1 CAPSULE BY MOUTH EVERY EVENING 10/28/22 04/27/23 Nick Lopez MD glucose blood test strips (OneTouch Ultra) Strip strip 400 strips, Instructed, 2 TIMES DAILY 04/29/22 Akbar Davis DO Lancets Misc 1 Each, Unknown, 2 TIMES DAILY 12/22/22 Christelle Espino MD magnesium oxide 400 MG tablet 800 mg, Oral, EVERY 12 HOURS 07/07/22 Nick Lopez MD multivitamin (multivitamin) tablet 1 tablet, Oral, DAILY 07/01/22 Akbar Davis DO mycophenolate mofetil (CELLCEPT) 250 MG capsule 1,000 mg, Oral, EVERY 12 HOURS 06/02/22 Nick Lopez MD oxybutynin CR 10 MG Tab SR 24 HR tablet 10 mg, Oral, DAILY 04/23/22 Historical Provider pantoprazole [address] tablet DR 40 mg, Oral, 2 TIMES DAILY 07/30/22 Nick Lopez MD predniSONE 5 MG tablet 5 mg, Oral, DAILY 03/04/23 Nick Lopez MD Rosuvastatin 10 MG tablet 10 mg, Oral, DAILY 03/17/23 Nick Lopez MD SITagliptin (Januvia) 100 MG tablet 100 mg, Oral, DAILY 07/01/22 Akbar Davis DO sulfamethoxazole-trimethoprim 800-160 MG per tablet 1 tablet, Oral, THREE TIMES WEEKLY 09/13/22 09/13/27 Nick Lopez MD tacrolimus (PROGRAF) 0.5 MG capsule Take 1 capsule by mouth daily every morning AND 1 capsule every evening. 06/02/22 Nick Lopez MD Allergies: Allergies Allergen Reactions Breo Ellipta [Fluticasone Furoate-Vilanterol] Shortness of Breath Codeine Hives PHYSICAL EXAM BP 137/73 Pulse 83 Temp 97.8 F (36.6 C) (Oral) Resp (!) 30 Ht 1.829 m (6') Wt 92.4 kg (203 lb 11.3 oz) SpO2 95% BMI 27.63 kg/m Smoking Status Former Body mass index is 27.63 kg/m . Wt Readings from Last 3 Encounters: 05/16/23 92.4 kg (203 lb 11.3 oz) 05/09/23 95.6 kg (210 lb 11.2 oz) 11/08/22 99.1 kg (218 lb 8 oz) GENERAL: Well-developed male. Sitting in chair. On NC. No distress HEENT: Pupils equal, round. NECK: Neck supple. No lymphadenopathy. No thyromegaly. No stridor. CARDIOVASCULAR: Regular rate and regular rhythm. No murmurs, rubs or gallops. Normal S1 and S2. PULMONARY: . No wheezing, rhonchi or rales. GASTROINTESTINAL: Soft, non-tender, non-distended. Bowel sounds present. MUSCULOSKELETAL: No cyanosis, clubbing. No joint effusions or erythema. SKIN: Warm and dry. No jaundice or rash. Trace edema NEUROLOGIC: intubated. Perrla. PSYCHIATRIC: relates that he is in pain. A little irate DATA REVIEW CBC Lab Results Component Value Date WBC 8.57 05/18/2023 HGB 12.7 (L) 05/18/2023 HCT 39.4 (L) 05/18/2023 PLATELET 158 05/18/2023 MCV 90.2 05/18/2023 CMP Lab Results Component Value Date SODIUM 140 05/18/2023 POTASSIUM 3.8 05/18/2023 CHLORIDE 109 (H) 05/18/2023 CO2 22 05/18/2023 BUN 10 05/18/2023 CREATSERUM 0.63 (L) 05/18/2023 GLUCOSE 157 (H) 05/18/2023 Lab Results Component Value Date ALT 15 05/16/2023 AST 19 05/16/2023 GGT 29 03/22/2023 ALKPHOS 48 05/16/2023 BILITOTAL 0.4 05/16/2023 BILIDIRECT 0.1 05/16/2023 Lab Results Component Value Date CMVPCR Not detected 03/22/2023 Imaging/Radiological Studies I have personally reviewed and interpreted the radiographic data in IS. PFT Results 01/28/2021 12:00 04/01/2021 12:00 04/29/2021 12:00 05/27/2021 12:00 06/29/2021 11:00 PFT Results FVC-Pre 3.84 Liters FVC 4.38 4.07 4.33 4.5 FVC % Pred, % Ref 85 79 84 88 FVC-%Pred-Pre 83 % FEV1-Pre 2.36 Liters FEV1 Pre Liters 2.6 2.44 2.66 2.57 FEV1 % Pred % Ref 66 63 68 66 FEV1-%Pred-Pre 67 % FEV1/FVC-Pre 61 % FEV1/FVC % Ref 59 60 61 57 [id number] 0.99 L/sec FEF 25-75% 1.21 % 1.03 % 1.16 % 0.93 % TLCPleth-Pre 5.98 Liters RVPleth-Pre 1.84 Liters DLCOunc-Pre 25.27 mL/mmHg/min DLCOunc-%Pred-Pre 89 % DLCOcor-%Pred-Pre 93 % 07/29/2021 12:00 09/21/2021 12:00 10/29/2021 12/01/2021 12:00 12/28/2021 12:00 PFT Results FVC-Pre 4.47 Liters FVC 4.23 4.08 4.43 3.96 FVC % Pred, % Ref 82 79 86 77 FVC-%Pred-Pre 96 % FEV1-Pre 2.81 Liters FEV1 Pre Liters 2.6 2.55 2.77 2.46 FEV1 % Pred % Ref 67 65 71 63 FEV1-%Pred-Pre 79 % FEV1/FVC-Pre 63 % FEV1/FVC % Ref 62 63 82 62 [id number] 1.49 L/sec FEF 25-75% 1.12 % 1.22 % 1.32 % 1.11 % TLCPleth-Pre 5.7 Liters RVPleth-Pre 1.6 Liters DLCOunc-Pre 23.55 mL/mmHg/min DLCOunc-%Pred-Pre 83 % DLCOcor-%Pred-Pre 80 % 01/28/2022 12:00 03/30/2022 12:00 05/03/2022 15:00 05/31/2022 12:00 07/01/2022 12:00 PFT Results FVC-Pre 4.15 Liters FVC 4.31 3.69 4.22 4.43 FVC % Pred, % Ref 84 72 82 87 FVC-%Pred-Pre 90 % FEV1-Pre 2.65 Liters FEV1 Pre Liters 2.77 2.09 2.52 2.74 FEV1 % Pred % Ref 71 54 65 71 FEV1-%Pred-Pre 76 % FEV1/FVC-Pre 64 % FEV1/FVC % Ref 64 57 60 62 [id number]-Yub 1.37 L/sec FEF 25-75% 1.46 % 0.65 % 1.07 % 1.25 % TLCPleth-Pre RVPleth-Pre DLCOunc-Pre DLCOunc-%Pred-Pre DLCOcor-%Pred-Pre 07/30/2022 12:00 08/30/2022 12:00 09/29/2022 12:00 11/08/2022 13:32 11/29/2022 12:00 PFT Results FVC-Pre 3.9 Liters 3.9 Liters FVC 4.1 4.05 3.85 3.78 FVC % Pred, % Ref 80 79 75 77 FVC-%Pred-Pre 84 % 84 % FEV1-Pre 2.68 Liters 2.68 Liters FEV1 Pre Liters 2.68 2.5 2.33 2.36 FEV1 % Pred % Ref 69 65 60 62 FEV1-%Pred-Pre 76 % 76 % FEV1/FVC-Pre 69 % 69 % FEV1/FVC % Ref 65 62 60 62 [id number] 1.73 L/sec 1.73 L/sec FEF 25-75% 1.2 % 1.07 % 1.03 % TLCPleth-Pre 5.32 Liters 5.32 Liters RVPleth-Pre 1.33 Liters 1.33 Liters DLCOunc-Pre 25.61 mL/mmHg/min 25.61 mL/mmHg/min DLCOunc-%Pred-Pre 91 % 91 % DLCOcor-%Pred-Pre 89 % 89 % 12/27/2022 12:00 01/24/2023 12:00 02/28/2023 12:00 03/28/2023 12:00 05/09/2023 13:23 PFT Results FVC-Pre 3.68 Liters FVC 3.9 3.63 3.56 3.98 FVC % Pred, % Ref 79 71 70 78 FVC-%Pred-Pre 80 % FEV1-Pre 2.41 Liters FEV1 Pre Liters 2.41 2.32 2.22 2.46 FEV1 % Pred % Ref 64 60 57 64 FEV1-%Pred-Pre 69 % FEV1/FVC-Pre 65 % FEV1/FVC % Ref 62 64 62 62 [id number]-Pnb 1.31 L/sec FEF 25-75% 1.08 % 1.04 % 1.16 % TLCPleth-Pre 5.54 Liters RVPleth-Pre 1.61 Liters DLCOunc-Pre 23.94 mL/mmHg/min DLCOunc-%Pred-Pre 86 % DLCOcor-%Pred-Pre 87 % Details More values are hidden. Newest values shown. Go to activity for more data. Head CTA: Nonvisualization of the basilar artery and the distal vertebral arteries which could be related to high-grade stenosis. Prominent bilateral posterior communicating arteries likely supplying the posterior circulation. OSH Head MRI: Diminished cerebral volume and evidence of chronic white matter small vessel ischemic change without acute intracranial abnormality. Paranasal sinus disease. Small bilateral mastoid effusions. PULMONARY CXR 05/17/23 No significant change from the previous examination including properly positioned endotracheal tube. CT Chest - 11/08/22 10/29/2021 Pending official read - appears stable No definite change from the previous study. Chronic elevation of the right hemidiaphragm with some volume loss and scarring in the right lung base remains, but the transplant lungs are otherwise clear. Irregularity of the bronchus intermedius appears unchanged. No definite air trapping is seen at this time, though the difference is likely a consequence of poor depth of expiration, particularly when compared to the prior study. 6MWT 02/26/21: 1598 feet (487 meters), lowest SpO2 97%, oxygen requirement: Room air 02/22/19: 1591 feet (485 meters), lowest SpO2 99%, oxygen requirement: Room air 09/28/18 (pre-tx): 984 feet (300 meters), lowest SpO2 95%, oxygen requirement: 3 LPM CARDIOLOGY TTE - 10/29/21 Left Ventricle: Chamber size is normal. Normal wall thickness. Normal global wall motion. Regional wall motion is normal. Ejection fraction is normal (60 - 65%). Diastolic function is normal. Left Atrium: Chamber size is moderately enlarged. Mitral Valve: Normal appearing leaflets. Leaflet mobility is normal. Trace regurgitation. No valve stenosis. Tricuspid Valve: Normal leaflets. Leaflet mobility is normal. Trace regurgitation. No stenosis. No echo/Doppler evidence for pulmonary hypertension. 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 There has been improvement of bone density since the previous examination. Colonoscopy - 06/21/2018 1. Cecum: Normal appearance no mass lesions normal IIeocecal valve. 2. Ascendlng colon. Normal appearance no mass lesions. 3. Transverse colon: Normal appearance. 2 polyps were identified. One was removed with biopsy forceps completely. The other was removed removed with snare cautery technique. Both of them were brought back to the channel of the scope. 4. Descending colon: Small polyp was identlfled was removed with snare cautery technique and brought back to the channel the scope. 5. Sigmold colon: Normal appearance minlmal dlverticular disease seen. 6. Rectum: Normal appearance no mass lesIons Internal hemorrholds were Identifled. Scope was withdrawn digital rectal exam showed no masses within the anus and a normal prostate smooth and small. Patlent will need to have another colonoscopy In 3 years. MICROSCOPIC DIAGNOSIS Transverse colon polyps, biopsy: Fragments of tubular adenoma. Fragments of fecal material. PSA - 02/26/21 2.03 Christelle Espino MD Division of Pulmonary, Critical Care & Sleep Medicine Department of Internal Medicine [facility] Long-Term EEG Daily EEG Report: Start Time: 05/17: 16:00 End Time: 05/18: 07:00 History: 63 year old gentleman with a past medical history of bilateral lung transplant currently immunosuppressed with Tacrolimus, Mycophenolate, Prednisone whom neurology is consulted on due to altered mental status of unclear etiology. Indication: To evaluate for possible seizures. Technical Description: This is a 21-channel digital EEG recording with time-locked video and single-channel electrocardiogram. Electrodes are placed according to the 10 to 20 International System. The patient was monitored continuously by EEG technicians with EEG reviewed intermittently and annotations made to the EEG record every two hours. Portions of this record are reviewed using bandpass filters of 1 to 70 Hz and sensitivity of 7mV/mm. EEG Findings Background: There is no clear PDR recorded from the onset of the study. The background is approximately symmetric, medium amplitude 6-7Hz theta activity mixed with 2-3Hz polymorphic delta activity. There are intermittent higher amplitude GPDs. Sleep and wake differentiation is recorded and NREM sleep is recorded with symmetric VSTs and sleep spindles. Focal Asymmetry: no Reactivity: not reactive Rhythmic or Periodic Patterns: Intermittent GPDs, not sustained, limited to wake and periods of stimulation Sporadic ED's: no Brief Rhythmic Discharges: no Electrographic seizure: no Hyperventilation: no Photic stimulation: no Other Clinical Events: none Impression: This is an abnormal EEG due to the presence of moderate diffuse slowing indicative of a moderate diffuse encephalopathy. Previously recorded GPDs have largely resolved. No clear localized features, clinical events or electrographic seizures recorded, clinical correlation recommended. Carlyle Dhaliwal MD Amusement Park Ride Mechanic, Department of Neurology, Epilepsy Section [facility] Acute Occupational Therapy Evaluation Prior to Admission AM-PAC Score: PRIOR LEVEL AM-PAC Activity Raw Score: 24 Current AM-PAC score(s): CURRENT AM-PAC Activity Raw Score: 19 Based on the above AM-PAC score(s) and OT clinical judgment, discharge destination recommendation is: Anticipate discharge to home Barriers to discharge home: Patient needs assistance with self-care for medical condition (see note below), Patient needs assistance with ADLs, Patient needs assistance with functional mobility Mobility equipment available at home: none used ADL equipment available at home: grab bars Equipment recommendations for discharge: shower chair Current therapy frequency recommendation(s) in acute: 5 times a week Activity Recommendations for outside of rehab session: Up to chair daily, ambulate to bathroom Precautions and Weightbearing Status: OT Existing Precautions/Restrictions: fall cEEG, Telemetry, Urinary catheter Patient Safety Communication Prior to Visit: Physician, Nursing, Rehab team Subjective: Pt supine in bed upon arrival agreeable to OT evaluation. Supportive present at bedside. Pt requesting to use the bathroom. Pain: General Pain Documentation (Adult, OB, Peds) Presence of Pain: complains of pain/discomfort Pain Location: back DVPRS (Defense and Veterans Pain Rating Scale) DVPRS: Rest: 9- severe pain DVPRS: Activity: 9- severe pain Home Setting Residence: House Lives With: spouse First floor setup: bedroom, walk-in shower Number of stairs to enter home: 2 Number of stairs in home: 12 / Does not need to access Stair Railings at Home: entry - with rail Mobility Equipment Available: none used ADL Equipment Available: grab bars Previous Level of Function Prior level ADL Overview: Independent with all ADLs Bed Mobility/Transfers: independent Ambulation Skills: independent Assistive Device: none used Level of Ambulation: community Objective/Observation: Vitals/Vitals Responses to Treatment: VS. No overt signs or symptoms of distress. O2 Device: room air Vision Screen Currently wearing corrective lenses: No, Reading only Visual Impairments Observed?: No Speech Speech: no gross deficits noted Successful Methods (Communication Strategies): verbal speech Hearing Hearing: no gross deficits noted ADLs: ADL Anticipated Performance (ADLs not directly observed this session): Eating, Bathing, UE Dressing Eating Assistance: Independent Eating Location: chair Grooming Assistance: Contact guard assist Grooming Location: standing at sink Grooming Deficit: Generalized weakness, Activity tolerance Grooming Skilled Rationale (Verbal/Tactile/Visual/Demonstrati on): Setup, Supervision Grooming Intervention/Details: Pt completed grooming tasks including hand hygiene standing at sink Bathing Assistance: Minimal UE Dressing Assistance: Set up supervision LE Dressing Assistance: Contact guard assist LE Dressing Location: edge of bed LE Dressing Deficit: Generalized weakness, Retrieval of items, Balance, Pain, Increased time to complete LE Dressing Skilled Rationale (Verbal/Tactile/Visual/Demonstrati on): Compensatory techniques, Technique of activity, Cues for increased safety, Facilitate positioning, Setup, Supervision LE Dressing Intervention/Details: Pt donned R sock by flexing torso and reaching toes; L socks donned with cues to utilize figure-4 technique Toilet Assistance: Contact guard assist Toileting Location: toilet Toileting Deficit: Increased time to complete, Generalized weakness, Pain, Balance, Grab bar use Toilet Skilled Rationale (Verbal/Tactile/Visual/Demonstrati on): Setup, Supervision Toileting Intervention/Details: Pt completed toileting task on toilet with extended time to complete. No assist required to for traci hygiene Extremity Assessments: RUE Assessment RUE Assessment: Within Functional Limits LUE Assessment LUE Assessment: Within Functional Limits Balance: Sitting Balance Static Sitting-Level of Assistance: Supervision Dynamic Sitting-Level of Assistance: Standby Skilled Rationale: Verbal cues Sitting Balance Skilled Intervention/Details: No loss of balance while seated unsupported EOB, on toilet, or in arm chair Standing Balance Static Standing-Level of Assistance: Contact guard Dynamic Standing-Level of Assistance: Contact guard Skilled Rationale: Verbal cues, Cues for increased safety, Initiation and execution of task Standing Balance Skilled Intervention/Details: No overt loss of balance during static or dynamic standing tasks Neuro: Sensation Overall Sensation: Intact Gross Coordination Gross Coordination: LUE intact, RUE intact Mobility Assessment: Supine to Sit Mobility Williams Level: Supine->Sit: stand-by assist Bed Features/Set-up: Supine->Sit: Head of bed elevated, Use of bed rail Skilled Rationale: Verbal cues, Initiation and execution of task, Cues for increased safety, Technique of activity Skilled Intervention/Details: Supine->Sit: Cues for initiation and sequencing Sit to Supine Mobility Williams Level: Sit->Supine: not tested (seated in arm chair at end of session) Transfer Assessment: Sit to Stand Transfer Williams Level: Sit->Stand: contact guard assist Skilled Rationale: Verbal cues, Cues for increased safety, Initiation and execution of task, Technique of activity Skilled Intervention/Details: Sit->Stand: x 1 from EOB, x 1 from toilet Stand to Sit Transfer Williams Level: Stand->Sit: contact guard assist Skilled Rationale: Verbal cues, Hand placement, Controlled descent for sitting, Technique of activity, Initiation and execution of task, Cues for increased safety Skilled Intervention/Details: Stand->Sit: x 1 to toilet, x 1 to arm chair; Cues for hand placement and controlled descent Toilet Transfer Williams Level: Toilet: contact guard assist Skilled Rationale: Cues for increased safety, Technique of activity, Hand placement Skilled Intervention/Details: Toilet: Cues for hand placement on grab bar with poor follow through Functional Mobility: Functional Mobility Williams Level: Functional Mobility/Gait: contact guard assist Physical Assist: Functional Mobility/Gait: 1 person + 1 person to manage equipment Functional Mobility Distance: Distance needed to access restroom Functional Mobility Deficits: Generalized weakness, Balance Functional Mobility Skilled Rationale: Verbal cues, Cues for increased safety Skilled Intervention/Details - Functional Mobility/Gait: Pt completed functional mobility to/from bathoom with CGA and no AD + assist to manage lines Wheelchair Assessment Patient currently uses wheelchair?: No Outcome Score(s): CURRENT [facility] Daily Activity Inpatient Short Form Putting on/Taking Off Lower Body Clothin - A Little Assistance Bathin - A Little Assistance Toiletin - A Little Assistance Putting on/Taking Off Upper Body Clothin - A Little Assistance Groomin - A Little Assistance Eatin - No Assistance CURRENT [facility] Activity Raw Score: 19 CURRENT [facility] Activity Functional Limitation/Modifier: 42.80% Currently Impaired in Daily Activity - CK Assessment & Plan: Patient was admitted for AMS/ Bilateral lung transplant patinet and seen for OT evaluation to assess to functional deficits preventing patient from completing daily tasks and routine at highest practical level of safety and independence. Exam findings include impairments in: balance, transfers, strength, endurance. These impairments contribute to occupational performance limitations including bathing, dressing, grooming, toileting, ADL transfers, functional mobility. 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 BRONCHOSCOPY [place] BRONCHOSCOPY FLEXIBLE W/ TRACHEAL BRONCHIAL DILATION AND/OR STENT PLAC N/A 04/02/2020 Laterality: N/A; [facility]; Location: [facility] BRONCHOSCOPY [place] HIP SURGERY Right 03/06/2020 BRONCHOSCOPY W/ TRANSBRONCHIAL BX SINGLE LOBE Bilateral 12/11/2019 Laterality: Bilateral; Surgeon: Akbar Davis DO; Location: [facility] BRONCHOSCOPY [place] BRONCHOSCOPY W/ TUMOR DESTRUCTION OR STENOSIS RELIEF Bilateral 12/11/2019 Laterality: Bilateral; Surgeon: Duke Reyes MD; Location: [facility] BRONCHOSCOPY [place] BRONCHOSCOPY W/ TUMOR DESTRUCTION OR STENOSIS RELIEF Bilateral 09/04/2019 Laterality: Bilateral; Surgeon: Akbar Davis DO; Location: [facility] BRONCHOSCOPY [place] BRONCHOSCOPY W/ TUMOR DESTRUCTION OR STENOSIS RELIEF Bilateral 07/17/2019 Laterality: Bilateral; Surgeon: Nick Lopez MD; Location: [facility] BRONCHOSCOPY [place] BRONCHOSCOPY W/ TUMOR DESTRUCTION OR STENOSIS RELIEF Right 05/22/2019 Laterality: Right; Surgeon: Josie Pyle DO; Location: [facility] BRONCHOSCOPY [place] BRONCHOSCOPY FLEXIBLE W/ TRACHEAL BRONCHIAL DILATION AND/OR STENT PLAC Right 05/22/2019 Laterality: Right; Surgeon: Josie Pyle DO; Location: [facility] BRONCHOSCOPY [place] BRONCHOSCOPY W/ TUMOR DESTRUCTION OR STENOSIS RELIEF Bilateral 04/10/2019 Laterality: Bilateral; Surgeon: Matthew Davila MD, PhD; Location: [facility] BRONCHOSCOPY [place] BRONCHOSCOPY W/ TRANSBRONCHIAL BX SINGLE LOBE Bilateral 03/13/2019 Laterality: Bilateral; Surgeon: Matthew Davila MD, PhD; Location: [facility] BRONCHOSCOPY [place] BRONCHOSCOPY W/ TRANSBRONCHIAL BX SINGLE LOBE N/A 02/06/2019 Laterality: N/A; Surgeon: Matthew Davila MD, PhD; Location: [facility] BRONCHOSCOPY [place] BRONCHOSCOPY FLEXIBLE W/ BRONCHIAL ALVEOLAR LAVAGE Bilateral 12/26/2018 Laterality: Bilateral; Surgeon: Nick Lopez MD; Location: [facility] BRONCHOSCOPY TRANSPLANT LUNG DOUBLE W/ BYPASS Bilateral 12/11/2018 Laterality: Bilateral; Surgeon: James Reyna MD, PhD, MPH; Location: [facility] MAIN OR ORIF WRIST TONSILLECTOMY VERTEBROPLASTY PERCUTANEOUS LUMBAR SINGLE VERTEBRAL BODY Patient will benefit from skilled occupational therapy to address these impairments, occupational performance limitations, and participation restrictions. Patient's rehab potential is: good, to achieve stated therapy goals. Planned Therapy Interventions (OT Eval): ADL retraining, balance training, transfer training, strengthening, functional activity tolerance Patient Instruction/Education this session: Patient Instruction: Role of OT and OT plan of care Plan for next session: Grooming at sink, LB dressing, standing balance/tolerance Acute OT Goals Plan of Care by Ángel Jimenez OT at 05/18/2023 10:06 AM Version 1 of 1 Problem: OT - Dressing Goal: Lower Body Dressing Description: Pt will complete LE dressing tasks with supervision for improved ability to complete self-care activities. Outcome: Ongoing Problem: OT - ADLs Goal: Grooming Description: Pt will complete grooming in standing with Mod I for improved ability to safely complete ADLs. Outcome: Ongoing Goal: Toileting Description: Pt will complete toileting task including clothing management with Mod I for improved ability to safely complete self-care activities. Outcome: Ongoing Problem: OT - Endurance Goal: Endurance Functional Task Standing Description: Pt will engage in standing functional task for 8 minutes with supervision to improve activity tolerance necessary for safe ADL completion at recommended discharge destination. Outcome: Ongoing Problem: OT - Transfers Goal: Transfers Toilet/Bedside Commode Description: Pt will transfer to/from toilet/BSC with supervision for improved ability to safely complete ADLs. Outcome: Ongoing Problem: OT - Strength/ROM Goal: Strength/ROM ADL Participation Description: Pt will demonstrate independence with UE exercise program to prevent deconditioning while in the hospital and to maximize UE ROM/coordination/strength for ADL participation. Outcome: Ongoing OT treatment consisted of the following to work and progress towards the above goal(s): OT Evaluation and Treatment Time OT Evaluation (Moderate) Time Entry: 19 Evaluating Therapist: Ángel Jimenez OT Additional Details: Co-evaluation/co-treatment performed?: Yes, simultaneous billable skilled care This co-evaluation session performed between OT and PT was beneficial, necessary and provided distinct services in establishing this person's individual plan of care. Medical complexity with functional deficits necessitated two skilled therapy disciplines working concurrently to determine each discipline's goals. I used facemask, protective eye shield, and gloves in today's patient interaction. OT Evaluation Complexity Occupational Profile and Client History: Moderate - expanded history Assessment of Occupational Performance: Moderate (3-5 performance deficits) Clinical Decision/Performance Deficits: Moderate (detailed assessments w/several treatment options) Time In: 1006 Time Out: 1025 Total Visit Time: 19 minutes Total Treatment Time (skilled, billable minutes): 19 minutes Patient location at end of session: chair Alarms on at end of session: none, RN aware and present at bedside Needs in reach and all medical lines, tubes, and drains intact. Upon discontinuation of Acute Care Occupational Therapy Services or patient discharge from the hospital this note represents the current Occupational Therapy Discharge Summary. Acute Physical Therapy Evaluation Prior to Admission [facility] score(s): PRIOR LEVEL AM-PAC Mobility Raw Score: 24 Current AM-PAC score(s): CURRENT AM-PAC Mobility Raw Score: 18 Based on the above AM-PAC score(s) and PT clinical judgment, patient is a good candidate for discharge to Home (Anticipated progression pending mobility and cognition.) Barriers to discharge home: None Mobility equipment available at home: none used ADL equipment available at home: grab bars Equipment needed for discharge: to be determined Current therapy frequency recommendation in acute: Therapy Frequency: 5 times a week Activity Recommendations for outside of rehab session: Up to chair daily, ambulate to bathroom Precautions and Weightbearing Status: Existing Precautions/Restrictions: fall cEEG, Telemetry, Urinary catheter Patient Safety Communication Prior to Visit: Physician, Nursing, Rehab team Subjective: Pt supine upon arrival and motivated to participate in therapy session. Pt hoping to ambulate to the bathroom. Pain: General Pain Documentation (Adult, OB, Peds) Presence of Pain: complains of pain/discomfort Pain Location: back DVPRS (Defense and Veterans Pain Rating Scale) DVPRS: Rest: 9- severe pain DVPRS: Activity: 9- severe pain Home Setting Residence: House Lives With: spouse First floor setup: bedroom, walk-in shower Number of stairs to enter home: 2 Number of stairs in home: 12 / Does not need to access Stair Railings at Home: entry - with rail Mobility Equipment Available: none used ADL Equipment Available: grab bars Previous Level of Function Prior level ADL Overview: Independent with all ADLs Bed Mobility/Transfers: independent Ambulation Skills: independent Assistive Device: none used Level of Ambulation: community Objective/Observation: Vitals/Vitals Responses to Treatment: Vital signs stable and monitored throughout session without concern. O2 Device: room air Cognition Overall Cognitive Status: Within Functional Limits Arousal/Alertness: Appropriate responses to stimuli Orientation Level: Oriented X4 Following Commands: Follows all commands and directions without difficulty Safety Judgment: Good awareness of safety precautions Awareness of Errors: Good awareness of errors made Deficits: Fully aware of deficits Attention Span: Appears intact Memory: Appears intact Problem Solving: Able to problem solve independently Vision Screen Currently wearing corrective lenses: No, Reading only Visual Impairments Observed?: No Speech Speech: no gross deficits noted Successful Methods (Communication Strategies): verbal speech Hearing Hearing: no gross deficits noted Extremity Assessments: RLE Assessment RLE Assessment: Within Functional Limits LLE Assessment LLE Assessment: Within Functional Limits Sensation Overall Sensation: Intact Proprioception Proprioception: intact Skin Integrity Skin Integrity Description: WFL Edema Edema: none noted Mobility Assessment: Supine to Sit Mobility Williams Level: Supine->Sit: stand-by assist Bed Features/Set-up: Supine->Sit: Head of bed elevated, Use of bed rail Skilled Rationale: Verbal cues, Initiation and execution of task, Cues for increased safety, Sequencing, Technique of activity Skilled Intervention/Details: Supine->Sit: Cueing for initiation and sequencing of transfer. Balance: Sitting Balance Static Sitting-Level of Assistance: Supervision Dynamic Sitting-Level of Assistance: Standby Skilled Rationale: Verbal cues, Upright gaze/neck extension Sitting Balance Skilled Intervention/Details: Sitting balance maintained EOB, on the toilet, and in the chair without overt LOB or significant concern. Standing Balance Static Standing-Level of Assistance: Contact guard Dynamic Standing-Level of Assistance: Contact guard Skilled Rationale: Verbal cues, Initiation and execution of task, Cues for increased safety, Technique of activity, Upright gaze/neck extension, Full extension to upright positioning/posture Standing Balance Skilled Intervention/Details: Standing balance challenged through transfers and gait training; no overt LOB noted. Transfer Assessment: Sit to Stand Transfer Williams Level: Sit->Stand: contact guard assist Skilled Rationale: Verbal cues, Upright gaze/neck extension, Full extension to upright positioning/posture, Initiation and execution of task, Cues for increased safety Skilled Intervention/Details: Sit->Stand: x2: 1 from EOB and 1 from toilet. Cueing to promote full upright posture. Stand to Sit Transfer Williams Level: Stand->Sit: contact guard assist Skilled Rationale: Verbal cues, Hand placement, Controlled descent for sitting Skilled Intervention/Details: Stand->Sit: Cueing to reach back for grab bar to promote eccentric control with descent. Extended time for toileting and independent traci care. Cueing to reach back for arm rest to promote eccentric control with descent to chair. Gait/Functional Mobility: Gait Assessment Williams Level: Gait: minimum assist (75% patient effort) Ambulation Distance (Feet): 20 Gait Deviations Identified: decreased dulce, decreased gait speed, decreased heel strike, decreased step length, decreased stride length Gait Skilled Rationale: verbal, upright posture, increase step length Outcome Score(s): CURRENT -[facility] Basic Mobility Inpatient Short Form Turning over in bed: 3 - A Little Assistance Sitting/standing from chair: 3 - A Little Assistance Moving from lying on back to sittin - A Little Assistance Moving to and from bed to chair: 3 - A Little Assistance Walk in hospital room: 3 - A Little Assistance Climbing 3-5 steps with a railin - A Little Assistance CURRENT [facility] Mobility Raw Score: 18 CURRENT -[facility] Mobility Functional Limitation/Modifier: 46.58% Currently Impaired in Basic Mobility - CK Assessment & Plan: Nick Hernández is a 63 y.o. male with a past medical history of bilateral lung transplant (2019, following longstanding hx of COPD), CAD, HTN, DM. He presents with a one day history of acutely altered mental status, in the setting of 3 months of slowly progressive personality changes. Patient was seen for therapy evaluation related to impaired strength, balance, and endurance. Exam findings include impairments in: Strength, Balance, Posture, Transfers, Gait/Locomotion, Aerobic capacity/endurance. These impairments contribute to functional limitations including Increased fall risk, Decreased functional mobility. Current clinical presentation is Evolving - changing/inconsistent clinical characteristics (Moderate). Patient history factors impacting Plan Of Care include . Patient will benefit from skilled physical therapy to address these impairments, functional limitations, and participation restrictions and has good rehab potential to achieve therapy goals. Planned Therapy Interventions: balance training, bed mobility training, endurance, functional activity tolerance, gait training, strengthening, transfer training Patient Instruction/Education this session: PT POC and discharge recommendations. Plan for next session: Progress transfers, ambulation, and OOB activity as able. Acute PT Goals Plan of Care by Luís Rajput PT at 05/18/2023 10:06 AM Version 1 of 1 Problem: PT - Mobility Goal: Ambulation Description: Pt will ambulate 250 feet with least restrictive device with modified independence to improve ability to navigate home environment. 05/18/2023 1356 by Luís Rajput PT Outcome: Ongoing 05/18/2023 135 by Luís Rajput PT Outcome: Ongoing Goal: Stairs Description: Pt will ascend/descend 2 stairs with prn use of railings with modified independence with least restrictive device to improve ability to perform functional mobility necessary in recommended discharge environment. 05/18/2023 1356 by Luís Rajput PT Outcome: Ongoing 05/18/2023 1355 by Luís Rajput, PT Outcome: Ongoing Problem: PT - Transfers Goal: Supine <-> Sit Description: Pt will perform bed mobility with flat bed & no rail with independence in order to improve functional mobility and safety. 05/18/2023 1356 by Luís Rajput PT Outcome: Ongoing 05/18/2023 1355 by Luís Rajput PT Outcome: Ongoing Goal: Sit <-> Stand Description: Pt will perform sit to/from stand transfers with modified independence with least restrictive device in order to improve functional mobility and safety. 05/18/2023 1356 by Luís Rajput PT Outcome: Ongoing 05/18/2023 1355 by Luís Rajput PT Outcome: Ongoing Goal: Strength/ROM Description: Pt will perform 3 sets of 15 repetitions of lower extremity exercises with independence in order to improve strength, maintain ROM, necessary for functional mobility. 05/18/2023 1356 by Luís Rajput PT Outcome: Ongoing 05/18/2023 1355 by Luís Rajput PT Outcome: Ongoing PT treatment consisted of the following to progress towards the above goal(s): PT Evaluation and Treatment Time PT Evaluation (Moderate) Time Entry: 20 Evaluating Therapist: Luís Rajput PT Additional Details: Co-evaluation/co-treatment performed?: Yes, simultaneous billable skilled care This co-evaluation session performed between PT and OT was beneficial, necessary and provided distinct services in establishing this person's individual plan of care. Medical complexity with functional deficits necessitated two skilled therapy disciplines working concurrently to determine each discipline's goals. This co-treatment was medically necessary due to patient's: mobility concerns I used facemask, protective eye shield, and gloves in today's patient interaction. Evaluation Complexity Components History: Moderate (1-2 personal factors and/or comorbidities) Body Systems Review: Moderate (Addressing a total of 3 or more elements) Clinical Presentation: Evolving - changing/inconsistent clinical characteristics (Moderate) Clinical Decision Making: Moderate Time In: 1006 Time Out: 1026 Total Visit Time: 20 minutes Total Treatment Time (skilled, billable minutes): 20 minutes Patient location at end of session: chair Alarms on at end of session: chair alarm and RN aware Needs in reach. Upon discontinuation of Acute Care Physical Therapy Services or patient discharge from the hospital this note represents the current Physical Therapy Discharge Summary. Respiratory Status Update: Nick Hernández has been liberated from mechanical ventilation. Recent Vitals and Breath Sounds: Blood pressure 147/81, pulse 67, temperature 97.5 F (36.4 C), temperature source Oral, resp. rate 18, height 1.829 m (6'), weight 92.4 kg (203 lb 11.3 oz), SpO2 96 %. On room air. Post-Extubation Orders and Indications: n/a Respiratory Plan of Care: Continue to monitor pt for signs of respiratory distress, encourage coughing as tolerated. The patients respiratory plan of care was updated by Saloni Barfield RCP 05/18/2023 9:42 AM 05/18/23 0643 Assessment Type ## Assessment-Evaluation re-evaluation RT Intervention Assessment-Evaluation Assessment Type adult critical care Reason for Assessment re-evaluation Care Plan Completed yes Vitals, Reports, and Results Pulse (Heart Rate) 52 Resp Rate 13 Nick Hernández is a 63 y.o. male with past medical history of: Past Medical History: Diagnosis Date Anxiety COPD (chronic obstructive pulmonary disease) with emphysema Herpes zoster Hiatal hernia Nephrolithiasis Presence of granulation tissue 04/16/2019 Added automatically from request for surgery [id number] Primary osteoarthritis of right hip 12/06/2019 Added automatically from request for surgery [id number] Tracheal stenosis 03/12/2020 Added automatically from request for surgery [id number] Past Surgical History: Procedure Laterality Date BRONCHOSCOPY FLEXIBLE DIAGNOSTIC N/A 05/28/2020 Laterality: N/A; Surgeon: TAD Mosley; Location: [facility] [place]OSCOPY [place] BRONCHOSCOPY FLEXIBLE DIAGNOSTIC Bilateral 04/02/2020 Laterality: Bilateral; Surgeon: TAD Mosley; Location: [facility] BR[place]CHOSCOPY [place] BRONCHOSCOPY FLEXIBLE W/ TRACHEAL BRONCHIAL DILATION AND/OR STENT PLAC N/A 04/02/2020 Laterality: N/A; Surgeon: LARRY Mosley; Location: [facility] BRONCHOSCOPY [place] HIP SURGERY Right 03/06/2020 BRONCHOSCOPY W/ TRANSBRONCHIAL BX SINGLE LOBE Bilateral 12/11/2019 Laterality: Bilateral; Surgeon: Akbar Davis DO; Location: [facility] BRONCHOSCOPY [place] BRONCHOSCOPY W/ TUMOR DESTRUCTION OR STENOSIS RELIEF Bilateral 12/11/2019 Laterality: Bilateral; Surgeon: Duke Reyes MD; Location: [facility] BRONCHOSCOPY [place] BRONCHOSCOPY W/ TUMOR DESTRUCTION OR STENOSIS RELIEF Bilateral 09/04/2019 Laterality: Bilateral; Surgeon: Akbar Davis DO; Location: [facility] BRONCHOSCOPY [place] BRONCHOSCOPY W/ TUMOR DESTRUCTION OR STENOSIS RELIEF Bilateral 07/17/2019 Laterality: Bilateral; Surgeon: Nick Lopez MD; Location: [facility] BRONCHOSCOPY [place] BRONCHOSCOPY W/ TUMOR DESTRUCTION OR STENOSIS RELIEF Right 05/22/2019 Laterality: Right; Surgeon: Josie Pyle DO; Location: [facility] BRONCHOSCOPY [place] BRONCHOSCOPY FLEXIBLE W/ TRACHEAL BRONCHIAL DILATION AND/OR STENT PLAC Right 05/22/2019 Laterality: Right; Surgeon: Josie Pyle DO; Location: [facility] BRONCHOSCOPY [place] BRONCHOSCOPY W/ TUMOR DESTRUCTION OR STENOSIS RELIEF Bilateral 04/10/2019 Laterality: Bilateral; Surgeon: Matthew Davila MD, PhD; Location: [facility] BRONCHOSCOPY [place] BRONCHOSCOPY W/ TRANSBRONCHIAL BX SINGLE LOBE Bilateral 03/13/2019 Laterality: Bilateral; Surgeon: Matthew Davila MD, PhD; Location: [facility] BRONCHOSCOPY [place] BRONCHOSCOPY W/ TRANSBRONCHIAL BX SINGLE LOBE N/A 02/06/2019 Laterality: N/A; Surgeon: Matthew Davila MD, PhD; Location: [facility] BRONCHOSCOPY [place] BRONCHOSCOPY FLEXIBLE W/ BRONCHIAL ALVEOLAR LAVAGE Bilateral 12/26/2018 Laterality: Bilateral; Surgeon: Nick Lopez MD; Location: [facility] BRONCHOSCOPY TRANSPLANT LUNG DOUBLE W/ BYPASS Bilateral 12/11/2018 Laterality: Bilateral; Surgeon: James Reyna MD, PhD, MPH; Location: [facility] MAIN OR ORIF WRIST TONSILLECTOMY VERTEBROPLASTY PERCUTANEOUS LUMBAR SINGLE VERTEBRAL BODY Social History Tobacco Use Smoking status: Former Packs/day: 1.50 Years: 30.00 Total pack years: 45.00 Types: Cigarettes Quit date: 11/2015 Years since quittin.5 Smokeless tobacco: Never Substance Use Topics Alcohol use: No Comment: Past use with history of DUI Full Code No active isolations Recent Vitals: Blood pressure 173/78, pulse 52, temperature 97.5 F (36.4 C), temperature source Oral, resp. rate 13, height 1.829 m (6'), weight 92.4 kg (203 lb 11.3 oz), SpO2 96 %. Breath Sounds/Sputum Characteristics: CTA, diminished BLL, suction small cloudy white sputum Radiology: Narrative & Impression EXAM: XR CHEST PORTABLE, 05/17/2023 00:47 AM COMPARISON: Compared to prior day. CLINICAL INDICATIONS: verify placement of ETT RELEVANT CLINICAL HISTORY: FINDINGS: (Lateral chest wall is not included in the image. Implanted Devices: Stable Thorax: Stable bibasilar atelectasis more on the right. No new pneumothorax. Stable cardiac silhouette and osseous structures. IMPRESSION IMPRESSION: No significant change from the previous examination including properly positioned endotracheal tube. Current Orders: vent Vent Liberation/Management Guidelines: ICU Vent Settings: Ventilator/Non-Ventilator Mode: CPAP / PSV Set/Target Tidal Volume: 475 Set Respiratory Rate/Release Rate: 18 PEEP (cm H2O): 6 Recent ABG/VBG: Pulmonary History and Respiratory Home Medications: [facility] Date: 05/09/2023 Name: NICK HERNÁNDEZ [facility] ID: [id number] Pulmonary Diagnostics Laboratory Age: 63 Height(in): 69.00 Pulmonary Lab PFT Report Weight(lb): 209.90 BMI: 31.0 Z94.2 Gender:Male : 1960 D84.9 Diagnosis: Tobacco Product: Race: Years Smoked: Pack Years: Tech: Rogelio Galvez Physician: MD [place] Bronwyn L. Years Quit: Pred Set:Pulmonary Lab NHANES Location: Pulmonary Lab Main Status: [id number] Protocol: PFT PFT INTERPRETATION: SPIROMETRY Spirometry showed evidence of a moderate obstructive impairment. FLOW VOLUME LOOP Flow volume loop is consistent with obstruction. LUNG VOLUMES Body plethysmography was used. Lung volumes have evidence of mild restriction. DIFFUSING CAPACITY Diffusing capacity is within normal limits. Diffusing capacity was corrected for hemoglobin. Faisal Villanueva MD Fellow, Pulmonary and Critical Care Attending physician attestation: I have independently reviewed this study and edited the report to reflect my interpretation. Shannon Rosales MD This interpretation has been electronically signed: MD Bobby, Shannon Arreguin 05/10/2023 10:03:13 PM Pulmonary Combivent prn Plan of Care: Maintain vent support, sxn as needed, wean fio2/peep as tolerated. SBTs when appropriate. Continue to monitor and follow up with team. The patients respiratory plan of care was updated by Rosario Horowitz RCP 05/18/2023 6:43 AM 05/18/23 0540 B = Both Spontaneous Awakening and Breathing Trials Was patient receiving mechanical ventilation? Yes Safety Screen Spontaneous Breathing Trial (SBT) Proceed with SBT - No exclusion criteria met Spontaneous Breathing Trial (SBT) Outcome SBT Passed NUTRITION ASSESSMENT - Consult Nutrition Recommendations and Plan of Care: 1. Initiate Vital AF 1.2 at 10 ml/hr; increase by 10 ml every 4 hours to goal rate of 85 ml/hr. - Goal rate will provide 2040 mL, 2448 kcal (26 kcal/kg), 153 g PRO (1.7 g pro/kg), 226 g CHO and 1654 mL free water. - Additional free water flushes per primary team. Recommend minimum 30 mL x 4/day to maintain tube patency. 2. Monitor TF intake, bowel function, skin integrity, weight change, lab values. 3. RD to follow. Nick Hernández is a 63 y.o. male with h/o bilateral lung transplant (2019, following longstanding hx of COPD), CAD, HTN, DM. He presents with a one day history of acutely altered mental status, in the setting of 3 months of slowly progressive personality changes. Pt was taken to OSH by . When they arrived at OSH ED he became unresponsive in the car with agonal breathing. The ED team took pt out of the car and placed him on the sidewalk. He started having seizure like activity. He was intubated and treated for presumed seizure. He was admitted to the ICU for further management. Pt was subsequently transferred to [facility] for further management and access to the [facility] transplant team. Neurology consulted for c/f status epilepticus. Nutrition consult received per MICU protocol. Past History Past medical, surgical, family, and social histories have reviewed and are located elsewhere in the medical record. Nutrition History Pt currently intubated with OG tube in place. Currently sedated on precedex and fentanyl. Plan to start TF. No family present at bedside. Unable to obtain nutrition history at this time. NFPE deferred as pt receiving bedside Echo at time of attempted visit. Diet Order Current Diet Orders Procedures DIET NPO with meds Standing Status: Standing Number of Occurrences: 1 Order Specific Question: NPO Meds: Answer: with meds Ht: 6' /182.9 cm Wt: 203#/92.4 kg BMI: 27.6 kg/(m^2) IBW: 178#/80.9 kg %IBW: 114 Weight history: per chart review, current wt indicates a wt loss of 15 lb (7%) in over 6 months, which is insignificant. Unable to confirm wt history with pt at this time. Wt Readings from Last 10 Encounters: 05/16/23 92.4 kg (203 lb 11.3 oz) 05/09/23 95.6 kg (210 lb 11.2 oz) 11/08/22 99.1 kg (218 lb 8 oz) 05/11/22 95.3 kg (210 lb) 05/03/22 94.3 kg (207 lb 14.4 oz) 10/29/21 91.8 kg (202 lb 6.4 oz) 10/29/21 91 kg (200 lb 9.9 oz) 06/29/21 91.4 kg (201 lb 9.6 oz) 02/26/21 96.5 kg (212 lb 12.8 oz) 11/17/20 91.2 kg (201 lb) Meds reviewed: Scheduled: Azithromycin 250 mg Oral Q MWF chlorhexidine 15 mL Mucous Membrane Q12H enoxaparin 40 mg Subcutaneous Q24H meropenem (MERREM) IVPB 2 g Intravenous Q8HNS Multi-Vitamins 1 tablet Oral Daily Pantoprazole 40 mg Oral BID predniSONE 5 mg Oral Daily [START ON 05/18/2023] Sulfamethoxazole-trimethoprim 1 tablet Oral Once per day on Tue Continuous: dexmedeTOMIDine (PRECEDEX) IV infusion 0.2 mcg/kg/hr (05/17/23 1104) fentaNYL (SUBLIMAZE) Infusion 25 mcg/hr (05/17/23 110) Labs reviewed: Na/K+/Phos/Mg/Ca: 139/4.4/2.3/3.1/-- (05/16 2009-05/17 655) Bun/Creat/Cl/CO2/Glucose: 7/0.76/110/19/158 (05/17 655-05/17 1113) WBC/Hgb/Hct/Plts: 5.53/12.3/38.0/158 (05/17 0614) GI: +OG, soft, NT, ND, +BS 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 Unable to obtain nutrition history.) based on the AND/ASPEN Malnutrition Criteria 2012 Pt remains at nutrition risk due to clinical status, bilateral lung transplant following COPD, CAD, HTN, DM, acute hypoxic respiratory failure, c/f status epilepticus, TF requirement. Toya GERMAIN, CIARRA, CNSC Pager #[phone] Long-Term EEG Daily EEG Report: Start Time: 05/17: 01:42 End Time: 05/17: 16:00 History: 63 year old gentleman with a past medical history of bilateral lung transplant currently immunosuppressed with Tacrolimus, Mycophenolate, Prednisone whom neurology is consulted on due to altered mental status of unclear etiology. Indication: To evaluate for possible seizures. Technical Description: This is a 21-channel digital EEG recording with time-locked video and single-channel electrocardiogram. Electrodes are placed according to the 10 to 20 International System. The patient was monitored continuously by EEG technicians with EEG reviewed intermittently and annotations made to the EEG record every two hours. Portions of this record are reviewed using bandpass filters of 1 to 70 Hz and sensitivity of 7mV/mm. EEG Findings Background: There is no clear PDR recorded from the onset of the study. The background is approximately symmetric, medium amplitude 6-7Hz theta activity mixed with 2-3Hz polymorphic delta activity. There are intermittent higher amplitude GPDs. Sleep and wake differentiation is recorded and NREM sleep is recorded with symmetric VSTs and sleep spindles. Focal Asymmetry: no Reactivity: not reactive Rhythmic or Periodic Patterns: Intermittent GPDs, not sustained, limited to wake and periods of stimulation Sporadic ED's: no Brief Rhythmic Discharges: no Electrographic seizure: no Hyperventilation: no Photic stimulation: no Other Clinical Events: none Impression: This is an abnormal EEG due to the presence of moderate diffuse slowing indicative of a moderate diffuse encephalopathy. 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 No clear localized features, clinical events or electrographic seizures recorded, clinical correlation recommended. Carlyle Dhaliwal MD Amusement Park [employer] Mechanic, Department of Neurology, Epilepsy Section [facility] Internal Medicine Daily Progress Note Patient: Nick Hernández, 1960, [id number] Physician: Verena Sy DO, PGY1, Pager #[phone], Med Intensive service Subjective/Interval History: Nick Hernández is a 63 y.o. male with a past medical history of bilateral lung transplant (2018, following longstanding hx of COPD), CAD, HTN, DM. He presents with a one day history of acutely altered mental status, in the setting of 3 months of slowly progressive personality changes. Patient was transferred from OSH to [facility] for further management and access to transplant team. Patient continues to withdraw to pain in all extremities. No new changes overnight. Will continue to wean propofol. Objective: Vitals: 05/17/23 0630 BP: 136/75 Pulse: 71 Resp: 18 Temp: 97 F (36.1 C) SpO2: 99% O2 Device: ventilator (mechanical ventilation) (05/17/23 0139) Gen: NAD, well-appearing HENT: NCAT, EOMI, MMM Cardio: RRR, normal S1/S2, no murmur Resp: CTA b/l, no increased WOB GI: soft, NT, ND, normal BS MSK: no joint swelling or erythema Ext: warm and well-perfused, no LE edema Neuro: sedated, withdraws to pain in extremities Data Review: WBC/Hgb/Hct/Plts: 5.53/12.3/38.0/158 (05/17 614) Na/K+/Phos/Mg/Ca: 139/4.4/2.3/3.1/-- (05/16 2009-05/17 655) Bun/Creat/Cl/CO2/Glucose: 7/0.76/110/19/140 (05/17 655) Ptt/Pt/Inr: 30.6/14.1/1.1 (05/16 2009) Meningitis/ Encephalitis studies- neg Resp panel- neg LP with CSF studies (blasto, histo, VDRL, [place], [place] disease)- pending CT Head- No acute intracranial findings.Fluid levels in the paranasal sinuses. Correlate for sinusitis. CTA brain/neck- Nonvisualization of the basilar artery and the distal vertebral arteries which could be related to high-grade stenosis. Prominent bilateral posterior communicating arteries likely supplying the posterior circulation. MRI spine- pending after EEG MRI brain- pending after EEG Assessment/Plan: Nick Hernández is a 63 y.o. male with a past medical history of bilateral lung transplant (2019, following longstanding hx of COPD), CAD, HTN, DM. He presents with a one day history of acutely altered mental status, in the setting of 3 months of slowly progressive personality changes. Acute encephalopathy C/f status epilepticus Subjective hx from of worsening mental status . CT head negative for acute process at OSH. LP obtained, glucose 62, protein 83, WBC 1. CSF studies pending. MRI Brain obtained, significant for diminished cerebral volume and evidence of chronic white matter small vessel ischemic change without acute intracranial abnormality, paranasal sinus disease, and small bilateral mastoid effusions. Upon arrival to [facility], CSF studies were not initially visible in the chart, so meningitic coverage initially started with meropenem, acyclovir, ampicillin. Vancomycin not ordered as MRSA negative at OSH. - Neurology consulted, following > ammonia 32, UDS negative, serum tox screen negative > TSH, folate, vitamin B1, vitamin B12, lactate, CK: wnl > autoimmune encephalopathy, paraneoplastic panels: pending. Will follow up with [facility] tomorrow. > lyme AB: pending > HIV1/2, Syphilis, MMA: neg > cEEG > CTH, CTA > MRI brain and spine after EEG monitoring - meningitic coverage initially started with meropenem; acyclovir, ampicillin discontinued per results of CSF studies - follow up OSH infectious workup - wean off propofol; add fentanyl and precedex Acute hypoxic respiratory failure, intubated for airway protection S/p bilateral lung transplant for end stage COPD 12/11/2018 Chronic R hemidiaphragm paralysis B/l lung transplant at [facility] on 12/11/2018, follows with Dr. Espino at [facility]. 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 Bronch with BAL performed at OSH --> PNA PCR, respiratory culture pending. Limited viral respiratory panel negative at OSH including covid, human metapneumo, paraflu. Procal negative 0.06 at OSH. - transplant team consulted, appreciate recs - goal tacro level 4-6 per outpt transplant notes - Per OSH records have been holding home tacrolimus and Cellcept due to ISAIAS/concern for possible toxicity. Cont prednisone 5 mg/day. - continue bactrim and azithro ppx - follow up LRCx, BAL studies obtained at OSH - blood culture pending ISAIAS, improving Baseline Cr ~1.0-1.1, on admission at OSH was noted at 1.6. Suspect prerenal given resolution with IVF at OSH. Urine lytes and osms obtained at OSH with FeNa 0.7% at that time. - daily chem, renal protective measures Hyperglycemia History of prediabetes Last a1c 5.9%. Home regimen includes sitagliptin - SSI regular while on TF Acute normocytic anemia Baseline hgb ~14. Less concern for acute bleed at this time given hemodynamic instability, absence of melena or other red flag symptoms. Transfusion goals hgb >7, plt >50 or >10 in the setting of acute bleed. - daily cbc, trend DVT PPX: lovenox Code Status: Full Code Disposition: tbd Discussed with team and attending, Dr. Colleen Richardson, on rounds. Signed, Verena Sy DO Family Medicine PGY1 Associated attestation - Colleen Richardson MD - 05/17/2023 4:12 PM EDT Attending addendum: I have independently seen and examined the patient. I independently reviewed the medical records, labs & imaging studies. I discussed the findings and management plan and agree with the assessment and plan as outlined above with the following additions/amendments: Nick is a 63 yr old M with a pmh of bilateral lung transplant in 2019 (for COPD), CAD, HTN, DM that presented from OSH with AMS ultimately requiring intubation and transfer to [facility] for further evaluation. The Pt reportedly has been having personality changes over the last several months, with changes in temperament, confusion, and some perseveration over certain issues.On 05/15 the Pt was pulling up water from the well when he had acute onset agitation/AMS. The Pts placed him in car to go to hospital at which time he became progressively more agitated then became unresponsive. On arrival to the OSH ED he had seizure-like activity twice and was ultimately intubated for airway protection. CTH negative. He had an MRI brain at OSH which was read as diminished cerebral volume and chronic small vessel changes, the OSH is not able to transmit images electronically, so only report available. LP was preformed, CSF Glucose 62/ Protein 83 , WBC 2, RBC 28. Biofire panel negative. CT A/P noted patchy airspace opacities in lung bases, varying degrees of vascular stenosis (severe near the left internal iliac artery origin), no acute process identified. He was placed on WILDLIFE PHOTOGRAPHER coverage with IV abx. As for exposures he is immunosuppressed. 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 I am worried about subacute neurologic process given reported personality changes over time, unclear how acute mental status changes will fit into picture. After speaking with neurology paraneoplastic process is in differential at this point and can manifest in seizure like activity. Atypical infectious processes also on ddx. Agree with cEEG CTA Head, eventual repeat MRI Brain; hopefully we can get OSH images if able Follow-up Cx results including CSF Agree with neurology consult Agree with continuing IV meropenem today Agree with discontinuation of IV acyclovir given negative HSV Continue lung protective ventilation Minimize sedation as able Appreciate transplant pulmonary recommendations I spent 40 minutes in the intensive care unit providing critical care services to Mr. Hernández today independent of procedures and other care providers. My time managing this critically ill patient included review of interval history, laboratories, radiology and consultation reports; performing a physical examination; discussing the patient with the multi-disciplinary team and managing life sustaining therapies to prevent imminent clinical deterioration as outlined above. Colleen Richardson MD Pulmonary Critical Care Medicine Physical Therapy Attempt Note 05/17/2023 PT Therapy Completed: Attempted Attempted Reason: Patient is not medically optimized to tolerate therapy program (RASS -3; plan for extubation later today.) Luís Rajput, PT Time In: 0800 Time Out: 0800 Total Visit Time: 0 minutes Total Treatment Time (skilled, billable minutes): 0 minutes Occupational Therapy Attempt Note 05/17/2023 OT Therapy Completed: Attempted Attempted Reason: Patient is not medically optimized to tolerate therapy program (RASS -3; Plans for extubation) Ángel Jmienez OT Time In: 0800 Time Out: 0800 Total Visit Time: 0 minutes Total Treatment Time (skilled, billable minutes): 0 minutes Department of Pharmacy Anticoagulant Progress Note Patient: Nick Hernández Room/Bed: [facility] Assessment/Plan: Patient's current Weight: Wt Readings from Last 1 Encounters: 05/16/23 92.4 kg (203 lb 11.3 oz) . Based on this, I have changed the enoxaparin subcutaneous dose to 40 mg every 24 hours. Name: Camilla Martin RPH Phone: [phone] Date/Time: 05/16/2023 7:51 PM Nick Hernández is a 63 y.o. male with past medical history of: Past Medical History: Diagnosis Date Anxiety COPD (chronic obstructive pulmonary disease) with emphysema Herpes zoster Hiatal hernia Nephrolithiasis Presence of granulation tissue 04/16/2019 Added automatically from request for surgery [id number] Primary osteoarthritis of right hip 12/06/2019 Added automatically from request for surgery [id number] Tracheal stenosis 03/12/2020 Added automatically from request for surgery [id number] Past Surgical History: Procedure Laterality Date BRONCHOSCOPY FLEXIBLE DIAGNOSTIC N/A 05/28/2020 Laterality: N/A; [facility]: [facility]ON[facility]OSCOPY [place] BRONCHOSCOPY FLEXIBLE DIAGNOSTIC Bilateral 04/02/2020 Laterality: Bilateral; [facility]: [facility]OSCOPY [place] BRONCHOSCOPY FLEXIBLE W/ TRACHEAL BRONCHIAL DILATION AND/OR STENT PLAC N/A 04/02/2020 Laterality: N/A; Surgeon: TAD Mosley; Location: [facility] BRONCHOSCOPY [place] HIP SURGERY Right 03/06/2020 BRONCHOSCOPY W/ TRANSBRONCHIAL BX SINGLE LOBE Bilateral 12/11/2019 Laterality: Bilateral; Surgeon: Akbar Davis DO; Location: [facility]ON[facility]OSCOPY [place] BRONCHOSCOPY W/ TUMOR DESTRUCTION OR STENOSIS RELIEF Bilateral 12/11/2019 Laterality: Bilateral; Surgeon: Duke Reyes MD; Location: [facility]ONCHOSCOPY [place] BRONCHOSCOPY W/ TUMOR DESTRUCTION OR STENOSIS RELIEF Bilateral 09/04/2019 Laterality: Bilateral; Surgeon: Akbar Davis DO; Location: [facility] BRONCHOSCOPY [place] BRONCHOSCOPY W/ TUMOR DESTRUCTION OR STENOSIS RELIEF Bilateral 07/17/2019 Laterality: Bilateral; Surgeon: Nick Lopez MD; Location: [facility]OSCOPY [place] BRONCHOSCOPY W/ TUMOR DESTRUCTION OR STENOSIS RELIEF Right 05/22/2019 Laterality: Right; Surgeon: Josie Pyle DO; [facility]OSCOPY [place] BRONCHOSCOPY FLEXIBLE W/ TRACHEAL BRONCHIAL DILATION AND/OR STENT PLAC Right 05/22/2019 Laterality: Right; Surgeon: Josie Pyle DO; Location: [facility] BRONCHOSCOPY [place] BRONCHOSCOPY W/ TUMOR DESTRUCTION OR STENOSIS RELIEF Bilateral 04/10/2019 Laterality: Bilateral; Surgeon: Matthew Davila MD, PhD; Location: [facility] BRONCHOSCOPY [place] BRONCHOSCOPY W/ TRANSBRONCHIAL BX SINGLE LOBE Bilateral 03/13/2019 Laterality: Bilateral; Surgeon: Matthew Davila MD, PhD; Location: [facility] BRONCHOSCOPY [place] BRONCHOSCOPY W/ TRANSBRONCHIAL BX SINGLE LOBE N/A 02/06/2019 Laterality: N/A; Surgeon: Matthew Davila MD, PhD; Location: [facility] BRONCHOSCOPY [place] BRONCHOSCOPY FLEXIBLE W/ BRONCHIAL ALVEOLAR LAVAGE Bilateral 12/26/2018 Laterality: Bilateral; Surgeon: Nick Lopez MD; Location: [facility] BRONCHOSCOPY TRANSPLANT LUNG DOUBLE W/ BYPASS Bilateral 12/11/2018 Laterality: Bilateral; Surgeon: James Reyna MD, PhD, MPH; Location: [facility] OR [facility]IF WRIST TONSILLECTOMY VERTEBROPLASTY PERCUTANEOUS LUMBAR SINGLE VERTEBRAL BODY Social History Tobacco Use Smoking status: Former Packs/day: 1.50 Years: 30.00 Total pack years: 45.00 Types: Cigarettes Quit date: 11/2015 Years since quittin.4 Smokeless tobacco: Never Substance Use Topics Alcohol use: No Comment: Past use with history of DUI Full Code No active isolations Recent Vitals: Blood pressure 128/82, pulse 88, temperature 98.2 F (36.8 C), temperature source Bladder, resp. rate (!) 29, SpO2 100 %. Breath Sounds/Sputum Characteristics: Diminished Radiology: pending Current Orders: Adult Vent Vent Liberation/Management Guidelines: MICU Vent Settings: Ventilator/Non-Ventilator Mode: A/C PRVC Set/Target Tidal Volume: 475 Set Respiratory Rate/Release Rate: 18 PEEP (cm H2O): 8 Recent ABG/VBG: Pulmonary History and Respiratory Home Medications: Bilateral lung transplant Plan of Care: Wean settings as tolerated, sxn as necessary. The patients respiratory plan of care was updated by Saloni Barfield RCP 05/16/2023 7:00 PM documented in this encounter [facility] 05-20-2023 Consult note Associated Order (s): IP CONSULT TO PSYCHIATRY Images from the original note were not included. PSYCHIATRY CONSULTATION 05/20/2023 Nick Hernández : 1960 REQUESTING PROVIDER Fior Soliman DO, PhD Shagufta North MD REASON FOR CONSULTATION Pt with hx of bilateral lung transplant who presents with acute mental status in setting of chronic personality issues. Transplant attending wondering if pt is candidate for starting psych med. HISTORY OF PRESENT ILLNESS Nick Hernández is a 63 y.o. male with history of COPD s/p BL lung transplant (11/2018; immunosuppressed with Tacrolimus, Mycophenolate, Prednisone), CAD, HTN, chronic back pain who presented as transfer from [facility] for AMS, respiratory distress and seizure like activity. Psychiatry consulted due to assistance with behavioral changes. Interviewed patient in his room. He is calm, cooperative, alert, orient. Reports he has been more agitated and irritable over the past several months which is a behavioral change for him. Reports April was a rough month for him due to a variety of things that went wrong. Mentions he was working on an issue with his well when he felt like he had a heat stroke and was brought to the hospital. Reports note remembering anything that happened until a couple days ago when he woke up. Reports being confused previously but now feels more sharp. Reports some depressive symptoms (overall somewhat guarded with responses) that have been bothersome since the transplant include low mood, difficulty adjusting with various medical procedures, inconsistent sleep. He denies RICHARD, AH. Reports VH consistenting of seeing a picture whenever he closes his eyes that will change when he open and closes his eyes again. Spoke with at bedside She reports a personality change for the past 5 months. Reports he has a short fuse, will blow up, get mad at anything or anyone, alienating family. States he has to be busy. Denies issues with social cues. Reports some memory concerns as he will misplace his keys and wallet but states he frequently eventually finds it. States he has bad road rage and will follow people around. Notes other aspects of his personality as changed as well such as eating spaghetti which was something he would never do in the past. States he is interested in things he was never interested in in the past. She does feel like he may struggle with depressive symptoms and could benefit from a medication. Discussed reducing situations that could be potentially dangerous to the patient (reducing access to guns, letting drive, etc.) Nick Hernández's review of systems today is positive for problems with irritability, chronic back pain. All other systems were reviewed and are negative. PAST PSYCHIATRIC HISTORY The patient denies any previous psychiatric problems or diagnoses, inpatient or outpatient mental health care, suicide attempts, use of psychotropic medications, or any self injurious behavior. PAST MEDICAL & SURGICAL HISTORY Past Medical History: Diagnosis Date Anxiety COPD (chronic obstructive pulmonary disease) with emphysema Herpes zoster Hiatal hernia Nephrolithiasis Presence of granulation tissue 04/16/2019 Added automatically from request for surgery [id number] Primary osteoarthritis of right hip 12/06/2019 Added automatically from request for surgery [id number] Tracheal stenosis 03/12/2020 Added automatically from request for surgery [id number] Past Surgical History: Procedure Laterality Date BRONCHOSCOPY FLEXIBLE DIAGNOSTIC N/A 05/28/2020 Laterality: N/A; [facility] [place] BRONCHOSCOPY FLEXIBLE DIAGNOSTIC Bilateral 04/02/2020 Laterality: Bilateral; Surgeon: Yovanny Perla [facility]; Location: [facility] BRONCHOSCOPY FLEXIBLE W/ TRACHEAL BRONCHIAL DILATION AND/OR STENT PLAC N/A 04/02/2020 Laterality: N/A; [facility]; Location: [facility] HIP SURGERY Right 03/06/2020 BRONCHOSCOPY W/ TRANSBRONCHIAL BX SINGLE LOBE Bilateral 12/11/2019 Laterality: Bilateral; Surgeon: Akbar Davis DO; Location: [facility] BRONCHOSCOPY W/ TUMOR DESTRUCTION OR STENOSIS RELIEF Bilateral 12/11/2019 Laterality: Bilateral; Surgeon: Duke Reyes MD; Location: [facility] BRONCHOSCOPY W/ TUMOR DESTRUCTION OR STENOSIS RELIEF Bilateral 09/04/2019 Laterality: Bilateral; Surgeon: Akbar Davis DO; Location: [facility] BRONCHOSCOPY W/ TUMOR DESTRUCTION OR STENOSIS RELIEF Bilateral 07/17/2019 Laterality: Bilateral; Surgeon: Nick Lopez MD; Location: [facility] BRONCHOSCOPY W/ TUMOR DESTRUCTION OR STENOSIS RELIEF Right 05/22/2019 Laterality: Right; Surgeon: Josie Pyle DO; Location: [facility] BRONCHOSCOPY FLEXIBLE W/ TRACHEAL BRONCHIAL DILATION AND/OR STENT PLAC Right 05/22/2019 Laterality: Right; Surgeon: Josie Pyle DO; Location: [facility] BRONCHOSCOPY W/ TUMOR DESTRUCTION OR STENOSIS RELIEF Bilateral 04/10/2019 Laterality: Bilateral; Surgeon: Matthew Davila MD, PhD; Location: [facility] BRONCHOSCOPY W/ TRANSBRONCHIAL BX SINGLE LOBE Bilateral 03/13/2019 Laterality: Bilateral; Surgeon: Matthew Davila MD, PhD; Location: [facility] BRONCHOSCOPY W/ TRANSBRONCHIAL BX SINGLE LOBE N/A 02/06/2019 Laterality: N/A; Surgeon: Matthew Davila MD, PhD; Location: [facility] BRONCHOSCOPY FLEXIBLE W/ BRONCHIAL ALVEOLAR LAVAGE Bilateral 12/26/2018 Laterality: Bilateral; Surgeon: Nick Lopez MD; Location: [facility] BRONCHOS[facility] TRANSPLANT LUNG DOUBLE W/ BYPASS Bilateral 12/11/2018 Laterality: Bilateral; Surgeon: James Reyna MD, PhD, MPH; Location: [facility] MAIN OR ORIF WRIST TONSILLECTOMY VERTEBROPLASTY PERCUTANEOUS LUMBAR SINGLE VERTEBRAL BODY FAMILY PSYCHIATRIC HISTORY The patient denies any family history of mental illness or treatment, psychiatric hospitalizations, suicide attempts, or substance problems. SOCIAL HISTORY Lives at home in . Around the [facility]. Disabled. 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 No access to [employer] SUBSTANCE USE HISTORY According to the patient chart, he reports that he quit smoking about 7 years ago. His smoking use included cigarettes. He has a 45.00 pack-year smoking history. He has never used smokeless tobacco. He reports no history of alcohol use. He reports no history of drug use. Denies all ALLERGIES He is allergic to breo ellipta [fluticasone furoate-vilanterol] and codeine. MEDICATIONS Current Scheduled Medications: Azithromycin (ZITHROMAX) tablet 250 mg, 250 mg, Q MWF carveDILOL (COREG) tablet 25 mg, 25 mg, BID Enoxaparin Sodium (LOVENOX) injection 40 mg, 40 mg, Q24H Gabapentin (NEURONTIN) capsule 400 mg, 400 mg, TID Insulin lispro (HUMALOG) injection, , 4x daily w/meals, HS lidocaine 4 % patch 1 patch, 1 patch, Q24H Multi-Vitamins tablet 1 tablet, 1 tablet, Daily Mycophenolate mofetil (CELLCEPT) capsule 1,000 mg, 1,000 mg, Q12H Pantoprazole (PROTONIX) tablet DR 40 mg, 40 mg, BID prednisoLONE acetate (PRED FORTE) 1 % ophthalmic suspension 1 drop, 1 drop, BID predniSONE (DELTASONE) tablet 5 mg, 5 mg, Daily Sulfamethoxazole-trimethoprim (BACTRIM DS) 800-160 MG per tablet 1 tablet, 1 tablet, Once per day on Tue Tacrolimus (PROGRAF) capsule 1 mg, 1 mg, Q12H Current PRN Medications: Acetaminophen, 650 mg, Q4H PRN Insulin lispro, , PRN And Dextrose, 7.5-25 g, As directed PRN And glucose, 1-2 Tube, As directed PRN hydrOXYzine hcl, 25 mg, TID PRN Magnesium Sulfate IVPB, 4 g, As directed PRN potassium chloride, 20 mEq, As directed PRN Or Potassium chloride, 20 mEq, As directed PRN Or Potassium Bicarb-Citric Acid, 20 mEq, As directed PRN Or potassium chloride, 10 mEq, As directed PRN Sodium chloride 0.9%, 250 mL, PRN Sodium Phosphate IVPB, 30 mmol, As directed PRN Or Sodium Phosphate IVPB, 45 mmol, As directed PRN RESULTS/DATA REVIEW Labs and imaging have been reviewed. Recent Results (from the past 24 hour(s)) GLUCOSE POC Collection Time: 05/19/23 4:27 PM Result Value Ref Range Glucose (POC Device) 123 (H) 70 - 99 mg/dL POC Sample Type CAPBL GLUCOSE POC Collection Time: 05/19/23 9:11 PM Result Value Ref Range Glucose (POC Device) 114 (H) 70 - 99 mg/dL POC Sample Type CAPBL CHEM 7 (LYTES,BUN,CREA,GLUC) Collection Time: 05/20/23 1:10 AM Result Value Ref Range Sodium 142 135 - 145 mmol/L Potassium 4.2 3.5 - 5.0 mmol/L Chloride 108 98 - 108 mmol/L CO2 24 21 - 31 mmol/L Glucose 99 70 - 99 mg/dL BUN 11 7 - 25 mg/dL Creatinine 0.80 0.70 - 1.30 mg/dL Bun/Crea Ratio 14 Osmolality (Calculated) 296 278 - 305 mOsm/kg Anion Gap 14 7 - 17 mmol/L eGFR, CKD-EPI, Male >90 >=60 mL/min/1.73m2 CBC,PLATELETS Collection Time: 05/20/23 1:10 AM Result Value Ref Range WBC Count 6.14 3.73 - 10.10 K/uL RBC Count 4.58 4.38 - 5.83 M/uL Hemoglobin 13.3 (L) 13.4 - 16.8 g/dL Hematocrit 41.8 39.6 - 48.8 % Mean Cell Volume 91.3 79.0 - 94.5 fL Mean Cell Hgb 29.0 26.1 - 33.3 pg Mean Cell Hgb Conc 31.8 (L) 31.9 - 36.5 g/dL RBC Distribution 14.5 (H) 10.9 - 14.3 % Platelet Count 193 146 - 337 K/uL Mean Platelet Volume 10.5 8.7 - 12.3 fL MAGNESIUM Collection Time: 05/20/23 1:10 AM Result Value Ref Range Magnesium 2.3 1.6 - 2.6 mg/dL PHOSPHATE, INORGANIC Collection Time: 05/20/23 1:10 AM Result Value Ref Range Phosphorous 3.3 2.2 - 4.6 mg/dL GLUCOSE POC Collection Time: 05/20/23 7:27 AM Result Value Ref Range Glucose (POC Device) 116 (H) 70 - 99 mg/dL POC Sample Type CAPBL TACROLIMUS LEVEL, TROUGH (PRE DRUG LEVEL) Collection Time: 05/20/23 7:51 AM Result Value Ref Range Tacrolimus, Trough 4.2 Bone Marrow Transplant: 4.0-12.0, Therapeutic: 5.0-15.0 ng/mL GLUCOSE POC Collection Time: 05/20/23 11:30 AM Result Value Ref Range Glucose (POC Device) 129 (H) 70 - 99 mg/dL POC Sample Type CAPBL EKG: Imaging/Studies: EXAM: CT HEAD WITHOUT CONTRAST, 05/17/2023 1:54 AM COMPARISON: None. CLINICAL INDICATIONS: 63 years Male Mental status change, unknown cause; RELEVANT CLINICAL HISTORY: TECHNIQUE: A series of transaxial computerized tomographic images are obtained from base of skull to vertex without intravenous contrast. Axial whole-head and thin section posterior fossa slices are provided. Reformats: Sagittal and coronal. FINDINGS: Hauser-white matter differentiation is preserved. No acute large territory infarction is seen. No acute intracranial hemorrhage is seen. No significant mass effect or midline shift. Ventricles are normal in size and configuration for patient age. Skull appears intact. Visualized orbits appear normal. Small fluid level in the right maxillary sinus. Changes of prior left-sided maxillary antrectomies. Small fluid level is also noted in the left sphenoid sinus. IMPRESSION IMPRESSION: No acute intracranial findings. Fluid levels in the paranasal sinuses. Correlate for sinusitis. Reason For Exam: Mental status change, unknown cause EXAMINATION: MRI of the brain without contrast. EXAM DATE & TIME: 05/16/2023 3:10 PM EDT INDICATION: Mental status change, unknown cause ADDITIONAL INFORMATION: 63-year-old male with mental status change of unknown cause presents for evaluation COMPARISON: CT head dated 05/15/2023 LIMITATIONS: None TECHNIQUE: Sagittal T1, coronal T2, transaxial T2, FLAIR, gradient echo and diffusion weighted sequences were performed through the brain. FINDINGS: Ventricular system and Extra-axial spaces: Generalized enlargement of the ventricles and sulci is noted without extracerebral collection with mass effect. Cerebral and cerebellar parenchyma: Periventricular foci of increased signal intensity on T2 and FLAIR are identified without mass effect or restricted diffusion, compatible with chronic microvascular ischemic change. No additional focal parenchymal enhancing or nonenhancing lesion is identified throughout the cerebrum or cerebellum. Brainstem: Normal. Sella turcica and pituitary: Normal. Vascular system: Normal signal void is noted within the major intracranial vessels. Paranasal sinuses: Mucosal thickening is present involving the ethmoid, sphenoid and maxillary sinuses. An air-fluid level is present in the right maxillary sinus. Mastoid air cells: There are small bilateral mastoid effusions. Orbits: Normal. Impression 1. Diminished cerebral volume and evidence of chronic white matter small vessel ischemic change without acute intracranial abnormality. 2. Paranasal sinus disease. 3. Small bilateral mastoid effusions. MENTAL STATUS EXAMINATION Appearance: laying in bed in no acute distress Attention: Intact to conversation Orientation: person, place and time Interview Behavior: cooperative Attire: hospital attire Grooming: fair Eye Contact: fair Mood: good Affect: consistent Motor Activity: No tremors, muscle weakness, muscle rigidity/stiffness/abnormal tone, clonus, abnormal involuntary muscle movements or seizure activity were noted. Speech: verbose, loud volume, normal rate Thought Process/Associations: linear, logical generally, some loose associations towards end of assessment Suicidal Ideation: denied by patient Homicidal Ideation:denied by patient Delusions: none Hallucination: reports visual hallucinations when his eyes are closed. Does not appear to be responding to internal stimuli Memory: poor recent Insight/Judgment: poor insight and poor judgement Impulse Control: intact currently Fund of Knowledge: grossly intact Language/Vocabulary: maltese/fluent Cognition: grossly intact Vital Signs: Blood pressure (!) 180/103, pulse 68, temperature 97.1 F (36.2 C), temperature source Oral, resp. rate 11, height 1.829 m (6'), weight 92.4 kg (203 lb 11.3 oz), SpO2 95 %. IMPRESSION Depressive disorder Acute encephalopathy - resolving Personality change - Concern for underlying cognitive decline/dementia (FTD) HTN Anemia Bilateral Lung transplant CAD GERD Deconditioning Demoralization Electrolyte disorder HLD Nick Hernández is a 63 y.o. male with history of COPD s/p BL lung transplant (11/2018; immunosuppressed with Tacrolimus, Mycophenolate, Prednisone), CAD, HTN, chronic back pain who presented as transfer from [facility] for AMS, respiratory distress and seizure like activity. Psychiatry consulted due to assistance with behavioral changes. reports ongoing personality changes for many months. Patient does reports some stressors causing depressive symptoms which could explain his irritability, behavioral changes which may benefit from antidepressants. Would also consider underlying cognitive process developing resulting in personality changes as well as other medical causes such as medication toxicity. RECOMMENDATIONS Diagnostic Workup: - Appreciate work-up for cognitive processes Medications - Recommend Citalopram 10 mg daily to assist with depressive symptoms - Continue monitoring tacrolimus levels to reduce risk of neurotoxicity Consultations/Referrals/Follow-Up: - No indication for involuntary psychiatric admission at this time - Recommend neuropsychological testing outpatient to evaluate for underlying cognitive concerns (patient prefers referral to local [facility] providers) - resources for outpatient f/u for medication management/counseling (anger management) if patient is in favor of this The psychiatry consultation team is available for questions M-F 8a-5p at [phone]. The on-call residential sales can be reached outside these hours at the same pager number [phone]. Case staffed with attending psychiatrist, Dr. Richardson. Thank you for allowing us to participate in the care of this patient. We will continue to follow. Nick Dominguez MD PGY4 ATTENDING ATTESTATION I saw and examined Nick Hernández on 05/20/[address] Nick Dominguez MD. I discussed the findings and therapeutic plan with Dr. Dominguez. I agree with the history, examination, and medical decision making as documented. I have edited the above report as needed to reflect my findings. Nick Hernández and his reported personality changes over the last 5 months including increased irritability (episodes of road rage including following people for long distances in anger, chasing thieves through his neighborhood barefoot and in his underwear, alienating himself from friends and neighbors due to arguments), forgetfulness, changes in preferences (new tastes in food). He expressed insight into his change in personality and its impact on his relationships. He also reported depressed mood but no suicidal ideation. We counseled Mr. Hernández and his on possibility of depression versus a neurocognitive disorder (consider frontotemporal dementia). He will need further outpatient cognitive workup. Start Celexa to treat depression component. Recommend outpatient counseling as well. Counseled patient to avoid driving and handling firearms pending further workup and management of his personality change and patient agreed. I personally reviewed data including but not limited to the following: Imaging - CT Head with no acute intracranial findings. I independently reviewed the images. EKG - 05/16/2023 tracing reviewed: NSR (66 BPM). QTc 423 ms. EEG - EEG report disclosed moderate to severe slowing which improved to mild diffuse slowing at end of study. Labs - Chemistries normal. Tacro level 4.2. CBC with anemia. TSH normal. LFTs unremarkable. Collateral information - Obtained from . Modesto Richardson MD [employer] Consultation-Liaison Psychiatry [facility] Work Phone: 05-20-2023 Consult note Associated Order (s): IP CONSULT TO PSYCHIATRY Images from the original note were not included. PSYCHIATRY CONSULTATION 05/20/2023 Nick Hernández : 1960 REQUESTING PROVIDER Fior Soliman DO, PhD Shagufta North MD REASON FOR CONSULTATION Pt with hx of bilateral lung transplant who presents with acute mental status in setting of chronic personality issues. Transplant attending wondering if pt is candidate for starting psych med. HISTORY OF PRESENT ILLNESS Nick Hernández is a 63 y.o. male with history of COPD s/p BL lung transplant (11/2018; immunosuppressed with Tacrolimus, Mycophenolate, Prednisone), CAD, HTN, chronic back pain who presented as transfer from [facility] for AMS, respiratory distress and seizure like activity. Psychiatry consulted due to assistance with behavioral changes. Interviewed patient in his room. He is calm, cooperative, alert, orient. Reports he has been more agitated and irritable over the past several months which is a behavioral change for him. Reports April was a rough month for him due to a variety of things that went wrong. Mentions he was working on an issue with his well when he felt like he had a heat stroke and was brought to the hospital. Reports note remembering anything that happened until a couple days ago when he woke up. Reports being confused previously but now feels more sharp. Reports some depressive symptoms (overall somewhat guarded with responses) that have been bothersome since the transplant include low mood, difficulty adjusting with various medical procedures, inconsistent sleep. He denies RICHARD, AH. Reports VH consistenting of seeing a picture whenever he closes his eyes that will change when he open and closes his eyes again. Spoke with at bedside She reports a personality change for the past 5 months. Reports he has a short fuse, will blow up, get mad at anything or anyone, alienating family. States he has to be busy. Denies issues with social cues. Reports some memory concerns as he will misplace his keys and wallet but states he frequently eventually finds it. States he has bad road rage and will follow people around. Notes other aspects of his personality as changed as well such as eating spaghetti which was something he would never do in the past. States he is interested in things he was never interested in in the past. She does feel like he may struggle with depressive symptoms and could benefit from a medication. Discussed reducing situations that could be potentially dangerous to the patient (reducing access to guns, letting drive, etc.) Nick Hernández's review of systems today is positive for problems with irritability, chronic back pain. All other systems were reviewed and are negative. PAST PSYCHIATRIC HISTORY The patient denies any previous psychiatric problems or diagnoses, inpatient or outpatient mental health care, suicide attempts, use of psychotropic medications, or any self injurious behavior. 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 [place] HIP SURGERY Right 03/06/2020 BRONCHOSCOPY W/ TRANSBRONCHIAL BX SINGLE LOBE Bilateral 12/11/2019 Laterality: Bilateral; Surgeon: Akbar Davis DO; Location: [facility] [place] BRONCHOSCOPY W/ TUMOR DESTRUCTION OR STENOSIS RELIEF Bilateral 12/11/2019 Laterality: Bilateral; Surgeon: Duke Reyes MD; Location: [facility] [place] BRONCHOSCOPY W/ TUMOR DESTRUCTION OR STENOSIS RELIEF Bilateral 09/04/2019 Laterality: Bilateral; Surgeon: Akbar Daivs DO; Location: [facility] [place] BRONCHOSCOPY W/ TUMOR DESTRUCTION OR STENOSIS RELIEF Bilateral 07/17/2019 Laterality: Bilateral; Surgeon: Nick Lopez MD; Location: [facility] [place] BRONCHOSCOPY W/ TUMOR DESTRUCTION OR STENOSIS RELIEF Right 05/22/2019 Laterality: Right; Surgeon: Josie Pyle DO; Location: [facility] [place] BRONCHOSCOPY FLEXIBLE W/ TRACHEAL BRONCHIAL DILATION AND/OR STENT PLAC Right 05/22/2019 Laterality: Right; Surgeon: Josie Pyle DO; Location: [facility] [place] BRONCHOSCOPY W/ TUMOR DESTRUCTION OR STENOSIS RELIEF Bilateral 04/10/2019 Laterality: Bilateral; Surgeon: Matthew Davila MD, PhD; Location: [facility] [place] BRONCHOSCOPY W/ TRANSBRONCHIAL BX SINGLE LOBE Bilateral 03/13/2019 Laterality: Bilateral; Surgeon: Matthew Davila MD, PhD; Location: [facility] [place] BRONCHOSCOPY W/ TRANSBRONCHIAL BX SINGLE LOBE N/A 02/06/2019 Laterality: N/A; Surgeon: Matthew Davila MD, PhD; Location: [facility] [place] BRONCHOSCOPY FLEXIBLE W/ BRONCHIAL ALVEOLAR LAVAGE Bilateral 12/26/2018 Laterality: Bilateral; Surgeon: Nick Lopez MD; Location: [facility] BRONCHOSCOPY TRANSPLANT LUNG DOUBLE W/ BYPASS Bilateral 12/11/2018 Laterality: Bilateral; Surgeon: James Reyna MD, PhD, MPH; Location: [facility] MAIN OR ORIF WRIST TONSILLECTOMY VERTEBROPLASTY PERCUTANEOUS LUMBAR SINGLE VERTEBRAL BODY FAMILY PSYCHIATRIC HISTORY The patient denies any family history of mental illness or treatment, psychiatric hospitalizations, suicide attempts, or substance problems. SOCIAL HISTORY Lives at home in . Around the [place] area. Disabled. 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 No access to guns SUBSTANCE USE HISTORY According to the patient chart, he reports that he quit smoking about 7 years ago. His smoking use included cigarettes. He has a 45.00 pack-year smoking history. He has never used smokeless tobacco. He reports no history of alcohol use. He reports no history of drug use. Denies all ALLERGIES He is allergic to breo ellipta [fluticasone furoate-vilanterol] and codeine. MEDICATIONS Current Scheduled Medications: Azithromycin (ZITHROMAX) tablet 250 mg, 250 mg, Q MWF carveDILOL (COREG) tablet 25 mg, 25 mg, BID Enoxaparin Sodium (LOVENOX) injection 40 mg, 40 mg, Q24H Gabapentin (NEURONTIN) capsule 400 mg, 400 mg, TID Insulin lispro (HUMALOG) injection, , 4x daily w/meals, HS lidocaine 4 % patch 1 patch, 1 patch, Q24H Multi-Vitamins tablet 1 tablet, 1 tablet, Daily Mycophenolate mofetil (CELLCEPT) capsule 1,000 mg, 1,000 mg, Q12H Pantoprazole (PROTONIX) tablet DR 40 mg, 40 mg, BID prednisoLONE acetate (PRED FORTE) 1 % ophthalmic suspension 1 drop, 1 drop, BID predniSONE (DELTASONE) tablet 5 mg, 5 mg, Daily Sulfamethoxazole-trimethoprim (BACTRIM DS) 800-160 MG per tablet 1 tablet, 1 tablet, Once per day on Tue Tacrolimus (PROGRAF) capsule 1 mg, 1 mg, Q12H Current PRN Medications: Acetaminophen, 650 mg, Q4H PRN Insulin lispro, , PRN And Dextrose, 7.5-25 g, As directed PRN And glucose, 1-2 Tube, As directed PRN hydrOXYzine hcl, 25 mg, TID PRN Magnesium Sulfate IVPB, 4 g, As directed PRN potassium chloride, 20 mEq, As directed PRN Or Potassium chloride, 20 mEq, As directed PRN Or Potassium Bicarb-Citric Acid, 20 mEq, As directed PRN Or potassium chloride, 10 mEq, As directed PRN Sodium chloride 0.9%, 250 mL, PRN Sodium Phosphate IVPB, 30 mmol, As directed PRN Or Sodium Phosphate IVPB, 45 mmol, As directed PRN RESULTS/DATA REVIEW Labs and imaging have been reviewed. Recent Results (from the past 24 hour(s)) GLUCOSE POC Collection Time: 05/19/23 4:27 PM Result Value Ref Range Glucose (POC Device) 123 (H) 70 - 99 mg/dL POC Sample Type CAPBL GLUCOSE POC Collection Time: 05/19/23 9:11 PM Result Value Ref Range Glucose (POC Device) 114 (H) 70 - 99 mg/dL POC Sample Type CAPBL CHEM 7 (LYTES,BUN,CREA,GLUC) Collection Time: 05/20/23 1:10 AM Result Value Ref Range Sodium 142 135 - 145 mmol/L Potassium 4.2 3.5 - 5.0 mmol/L Chloride 108 98 - 108 mmol/L CO2 24 21 - 31 mmol/L Glucose 99 70 - 99 mg/dL BUN 11 7 - 25 mg/dL Creatinine 0.80 0.70 - 1.30 mg/dL Bun/Crea Ratio 14 Osmolality (Calculated) 296 278 - 305 mOsm/kg Anion Gap 14 7 - 17 mmol/L eGFR, CKD-EPI, Male >90 >=60 mL/min/1.73m2 CBC,PLATELETS Collection Time: 05/20/23 1:10 AM Result Value Ref Range WBC Count 6.14 3.73 - 10.10 K/uL RBC Count 4.58 4.38 - 5.83 M/uL Hemoglobin 13.3 (L) 13.4 - 16.8 g/dL Hematocrit 41.8 39.6 - 48.8 % Mean Cell Volume 91.3 79.0 - 94.5 fL Mean Cell Hgb 29.0 26.1 - 33.3 pg Mean Cell Hgb Conc 31.8 (L) 31.9 - 36.5 g/dL RBC Distribution 14.5 (H) 10.9 - 14.3 % Platelet Count 193 146 - 337 K/uL Mean Platelet Volume 10.5 8.7 - 12.3 fL MAGNESIUM Collection Time: 05/20/23 1:10 AM Result Value Ref Range Magnesium 2.3 1.6 - 2.6 mg/dL PHOSPHATE, INORGANIC Collection Time: 05/20/23 1:10 AM Result Value Ref Range Phosphorous 3.3 2.2 - 4.6 mg/dL GLUCOSE POC Collection Time: 05/20/23 7:27 AM Result Value Ref Range Glucose (POC Device) 116 (H) 70 - 99 mg/dL POC Sample Type CAPBL TACROLIMUS LEVEL, TROUGH (PRE DRUG LEVEL) Collection Time: 05/20/23 7:51 AM Result Value Ref Range Tacrolimus, Trough 4.2 Bone Marrow Transplant: 4.0-12.0, Therapeutic: 5.0-15.0 ng/mL GLUCOSE POC Collection Time: 05/20/23 11:30 AM Result Value Ref Range Glucose (POC Device) 129 (H) 70 - 99 mg/dL POC Sample Type CAPBL EKG: Imaging/Studies: EXAM: CT HEAD WITHOUT CONTRAST, 05/17/2023 1:54 AM COMPARISON: None. CLINICAL INDICATIONS: 63 years Male Mental status change, unknown cause; RELEVANT CLINICAL HISTORY: TECHNIQUE: A series of transaxial computerized tomographic images are obtained from base of skull to vertex without intravenous contrast. Axial whole-head and thin section posterior fossa slices are provided. Reformats: Sagittal and coronal. FINDINGS: Hauser-white matter differentiation is preserved. No acute large territory infarction is seen. No acute intracranial hemorrhage is seen. No significant mass effect or midline shift. Ventricles are normal in size and configuration for patient age. Skull appears intact. Visualized orbits appear normal. Small fluid level in the right maxillary sinus. Changes of prior left-sided maxillary antrectomies. Small fluid level is also noted in the left sphenoid sinus. IMPRESSION IMPRESSION: No acute intracranial findings. Fluid levels in the paranasal sinuses. Correlate for sinusitis. Reason For Exam: Mental status change, unknown cause EXAMINATION: MRI of the brain without contrast. EXAM DATE & TIME: 05/16/2023 3:10 PM EDT INDICATION: Mental status change, unknown cause ADDITIONAL INFORMATION: 63-year-old male with mental status change of unknown cause presents for evaluation COMPARISON: CT head dated 05/15/2023 LIMITATIONS: None TECHNIQUE: Sagittal T1, coronal T2, transaxial T2, FLAIR, gradient echo and diffusion weighted sequences were performed through the brain. FINDINGS: Ventricular system and Extra-axial spaces: Generalized enlargement of the ventricles and sulci is noted without extracerebral collection with mass effect. Cerebral and cerebellar parenchyma: Periventricular foci of increased signal intensity on T2 and FLAIR are identified without mass effect or restricted diffusion, compatible with chronic microvascular ischemic change. No additional focal parenchymal enhancing or nonenhancing lesion is identified throughout the cerebrum or cerebellum. Brainstem: Normal. Sella turcica and pituitary: Normal. Vascular system: Normal signal void is noted within the major intracranial vessels. Paranasal sinuses: Mucosal thickening is present involving the ethmoid, sphenoid and maxillary sinuses. An air-fluid level is present in the right maxillary sinus. Mastoid air cells: There are small bilateral mastoid effusions. Orbits: Normal. Impression 1. Diminished cerebral volume and evidence of chronic white matter small vessel ischemic change without acute intracranial abnormality. 2. Paranasal sinus disease. 3. Small bilateral mastoid effusions. MENTAL STATUS EXAMINATION Appearance: laying in bed in no acute distress Attention: Intact to conversation Orientation: person, place and time Interview Behavior: cooperative Attire: hospital attire Grooming: fair Eye Contact: fair Mood: good Affect: consistent Motor Activity: No tremors, muscle weakness, muscle rigidity/stiffness/abnormal tone, clonus, abnormal involuntary muscle movements or seizure activity were noted. Speech: verbose, loud volume, normal rate Thought Process/Associations: linear, logical generally, some loose associations towards end of assessment Suicidal Ideation: denied by patient Homicidal Ideation:denied by patient Delusions: none Hallucination: reports visual hallucinations when his eyes are closed. Does not appear to be responding to internal stimuli Memory: poor recent Insight/Judgment: poor insight and poor judgement Impulse Control: intact currently Fund of Knowledge: grossly intact Language/Vocabulary: maltese/fluent Cognition: grossly intact Vital Signs: Blood pressure (!) 180/103, pulse 68, temperature 97.1 F (36.2 C), temperature source Oral, resp. rate 11, height 1.829 m (6'), weight 92.4 kg (203 lb 11.3 oz), SpO2 95 %. IMPRESSION Depressive disorder Acute encephalopathy - resolving Personality change - Concern for underlying cognitive decline/dementia (FTD) HTN Anemia Bilateral Lung transplant CAD GERD Deconditioning Demoralization Electrolyte disorder HLD Nick Hernández is a 63 y.o. male with history of COPD s/p BL lung transplant (11/2018; immunosuppressed with Tacrolimus, Mycophenolate, Prednisone), CAD, HTN, chronic back pain who presented as transfer from [facility] for AMS, respiratory distress and seizure like activity. Psychiatry consulted due to assistance with behavioral changes. reports ongoing personality changes for many months. Patient does reports some stressors causing depressive symptoms which could explain his irritability, behavioral changes which may benefit from antidepressants. Would also consider underlying cognitive process developing resulting in personality changes as well as other medical causes such as medication toxicity. RECOMMENDATIONS Diagnostic Workup: - Appreciate work-up for cognitive processes Medications - Recommend Citalopram 10 mg daily to assist with depressive symptoms - Continue monitoring tacrolimus levels to reduce risk of neurotoxicity Consultations/Referrals/Follow-Up: - No indication for involuntary psychiatric admission at this time - Recommend neuropsychological testing outpatient to evaluate for underlying cognitive concerns (patient prefers referral to local [facility] providers) - resources for outpatient f/u for medication management/counseling (anger management) if patient is in favor of this The psychiatry consultation team is available for questions M-F 8a-5p at [phone]. The on-call residential sales can be reached outside these hours at the same pager number [phone]. Case staffed with attending psychiatrist, Dr. Richardson. Thank you for allowing us to participate in the care of this patient. We will continue to follow. Nick Dominguez MD PGY4 ATTENDING ATTESTATION I saw and examined Nick Hernández on 05/20/[address] Nick Dominguez MD. I discussed the findings and therapeutic plan with Dr. Dominguez. I agree with the history, examination, and medical decision making as documented. I have edited the above report as needed to reflect my findings. Nick Hernández and his reported personality changes over the last 5 months including increased irritability (episodes of road rage including following people for long distances in anger, chasing thieves through his neighborhood barefoot and in his underwear, alienating himself from friends and neighbors due to arguments), forgetfulness, changes in preferences (new tastes in food). He expressed insight into his change in personality and its impact on his relationships. He also reported depressed mood but no suicidal ideation. We counseled Mr. Hernández and his on possibility of depression versus a neurocognitive disorder (consider frontotemporal dementia). He will need further outpatient cognitive workup. Start Celexa to treat depression component. Recommend outpatient counseling as well. Counseled patient to avoid driving and handling firearms pending further workup and management of his personality change and patient agreed. I personally reviewed data including but not limited to the following: Imaging - CT Head with no acute intracranial findings. I independently reviewed the images. EKG - 05/16/2023 tracing reviewed: NSR (66 BPM). QTc 423 ms. EEG - EEG report disclosed moderate to severe slowing which improved to mild diffuse slowing at end of study. Labs - Chemistries normal. Tacro level 4.2. CBC with anemia. TSH normal. LFTs unremarkable. Collateral information - Obtained from . Modesto Richardson MD [employer] Consultation-Liaison Psychiatry Images from the original note were not included. LUNG TRANSPLANT CONSULT NOTE Referring provider: Sanam Akers Nick Hernández is a 63 y.o. male s/p lung transplantation. IMPRESSION AND RECOMMENDATIONS Drug Levels Lab Results Component Value Date TACROLIMUS 16.2 (H) 02/26/2021 TACROLIMUS 16.2 (H) 12/06/2019 TACROLIMUS 9.0 09/10/2019 Lab Results Component Value Date TACROTRGHMAN 5.4 03/22/2023 TACROTRGHMAN 5.0 02/22/2023 TACROTRGHMAN 5.4 01/24/2023 Transplant Bilateral lung transplant (12/11/18) for COPD (Dr. Reyna) Allograft function: declining - Reference FEV1 = 2.88 L (reset due to weight gain 01/31/20); 80% = 2.30 Immunosuppression, high risk meds, therapeutic drug monitoring PLAN: - Tacrolimus: Goal trough: 4-6; - Mycophenolate: 1000mg bid - Prednisone: 5 mg daily - TITUS Prophylaxis: azithromycin Respiratory Intubated for airway protection PLAN: - MV per ICU team ID CMV D-/R- EBV D+/R+ Vaccinations Influenza: Jul 2021 per patient PCV13: 05/09/18 COVID-19: 01/09/21, 02/06/21 (Moderna); 10/16/21; 08/13/22 PLAN: Empiric antibiotics PPSV23 due Prophylaxis: - Bactrim 1 DS QMWF CV CAD, diffuse HTN PLAN: - ASA, Coreg, Norvasc Renal / Mg wasting due to CNI PLAN: - Monitor BUN/Cr - Mg supplementation GI GERD PLAN: - PPI Heme Anemia PLAN: - Monitor CBC Endocrine Osteoporosis Prediabetes PLAN: - Ca / Vit D - sitagliptin Musculoskeletal / Skin PLAN: - Maintain activity level - Annual dermatologic evaluation Neuro/Psych Admitted with encephalopathy of undetermined etiology. PLAN: - Evaluation per neuro and ICU team. MRI, LP and cEEG - On gabapentin Colonoscopy and Bone densitometer due outpatient POST TRANSPLANT HISTORY - planned Bilateral lung transplantation (12/11/18) for COPD (Dr. Reyna) - Induction with Basiliximab on Day 0 and 4 - PGD @ T24: 0 - PGD @ T48: 0 - PGD @ T72: 0 - Graft function - Reference FEV1 = 2.88 L (reset due to weight gain 01/31/20); 80% = 2.30 - Status - ABO O positive - CMV: Donor NEG Recipient NEG - EBV: Donor POS Recipient POS - Infection: - Donor cultures: S aureus, C albicans - Recipient cultures: S pseudointermedius - 12/12/18 BAL: Metapneumovirus - Ribavirin + prednisone taper - 12/26/18 BAL: Metapneumovirus - Ribavirin + prednisone taper - 03/13/19 BW: S epidermidis, S lugunensis - 04/10/19 BAL: E cloacae - 02/04/21 Thigh bx: Herpesvirus - valacyclovir x 7 days - Transbronchial biopsies: - 02/06/19: A0B0. BALT hyperplasia - 03/13/19: A0B1, aspirated vegetable material - 03/13/19 EBBx: granulation tissue/inflammatory polyp - 04/10/19 EBBx: exuberant granulation tissue with suppurative inflammation - 05/22/19: A0Bx - 07/17/19 EBBx: granulation tissue - 09/03/19 TBBx: A0Bx, focal stenosis (ISHLT stenosis c, c). 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); asymptomatic - Nephrolithiasis s/p lithotripsy - Airway issues: benign growth (granulation tissue), focal moderate BI stenosis (ISHLT stenosis c,c) - - Severe R hip arthritis s/p R COTY (03/06/20) - Lumbar compression fractures s/p vertebroplasties - H/o Bronchial granulation tissue requiring repeat excision; RBI stenosis (ISHLT c, c) - Erectile Dysfunction - 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 Taken to OSH for agitation and confusion. He became unresponsive at arrival to the ED and per report demonstrated seizure like activity. He was intubated and received Keppra load and Propofol and Versed gtt along with the Fentanyl gtt. He was transferred to [facility] ICU for further management. At OSH Procal 0.06. Troponin < 0.012. Urinalysis unremarkable. At the OSH, bronch and BAL were performed, with BAL and LRCx studies pending. RVP and MRSA nares reportedly negative. LP obtained, glucose 62, protein 83, CSF studies pending. MRI Brain obtained, significant for diminished cerebral volume and evidence of chronic white matter small vessel ischemic change. Per pt's over the past 1-2 years patient's behavior has been angry and more erratic. Per lung mail service coordinator notes this has been going on longer. The describes his changes as him getting more angry and forgetful. 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 Earlier on day of admission to OSH ([facility]) the noticed he was acting himself, but after climbing out of the well and started having SOB and became agitated and altered. . REVIEW OF SYSTEMS All other systems reviewed and are negative for pertinent findings except as mentioned in the HPI/Interval History. MEDICATIONS AND ALLERGIES Current Outpatient Medications Medication Sig Last Dose Start Date End Date Authorizing Provider acetaminophen 325 MG tablet Take 2 tablets by mouth every 6 hours as needed for mild or moderate pain. 05/03/22 Nick Lopez MD Alcohol Swabs 70 % Pads 1 Each, Unknown, 2 TIMES DAILY 04/29/22 Akbar Davis DO alendronate 70 MG tablet 70 mg, Oral, EVERY 7 DAYS 07/01/22 Akbar Davis DO amLODIPine 5 MG tablet 5 mg, Oral, DAILY 07/30/22 Nick Lopez MD aspirin (RA Aspirin Adult Low Dose) 81 MG Chew Tab chewable tablet 81 mg, Oral, DAILY 09/12/22 Nick Lopez MD azithromycin 250 MG tablet 250 mg, Oral, EVERY M, W & F 09/15/22 09/15/27 Stephania De León, INTERIOR HORTICULTURIST[employer]ISH[employer] Calcium Citrate-Vitamin D 315-200 MG-UNIT tablet 1 tablet, Oral, EVERY 12 HOURS 07/01/22 Akbar Davis DO carveDILOL 25 MG tablet 25 mg, Oral, 2 TIMES DAILY 03/17/23 Nick Lopez MD ergocalciferol 1.25 MG (27277 UT) capsule 50,000 Units, Oral, WEEKLY 07/01/22 Akbar Davis DO Gabapentin 400 MG capsule TAKE 1 CAPSULE BY MOUTH EVERY MORNING, TAKE 2 CAPSULES BY MOUTH EVERY AFTERNOON and TAKE 1 CAPSULE BY MOUTH EVERY EVENING 10/28/22 04/27/23 Nick Lopez MD glucose blood test strips (OneTouch Ultra) Strip strip 400 strips, Instructed, 2 TIMES DAILY 04/29/22 Akbar Davis DO Lancets Misc 1 Each, Unknown, 2 TIMES DAILY 12/22/22 Christelle Espino MD magnesium oxide 400 MG tablet 800 mg, Oral, EVERY 12 HOURS 07/07/22 Nick Lopez MD multivitamin (multivitamin) tablet 1 tablet, Oral, DAILY 07/01/22 Akbar Davis DO mycophenolate mofetil (CELLCEPT) 250 MG capsule 1,000 mg, Oral, EVERY 12 HOURS 06/02/22 Nick Lopez MD oxybutynin CR 10 MG Tab SR 24 HR tablet 10 mg, Oral, DAILY 04/23/22 Historical Provider pantoprazole [address] tablet DR 40 mg, Oral, 2 TIMES DAILY 07/30/22 Nick Loepz MD predniSONE 5 MG tablet 5 mg, Oral, DAILY 03/04/23 Nick Lopez MD Rosuvastatin 10 MG tablet 10 mg, Oral, DAILY 03/17/23 Nick Lopez MD SITagliptin (Januvia) 100 MG tablet 100 mg, Oral, DAILY 07/01/22 kAbar Davis DO sulfamethoxazole-trimethoprim 800-160 MG per tablet 1 tablet, Oral, THREE TIMES WEEKLY 09/13/22 09/13/27 Nick Lopez MD tacrolimus (PROGRAF) 0.5 MG capsule Take 1 capsule by mouth daily every morning AND 1 capsule every evening. 06/02/22 Nick Lopez MD Allergies: Allergies Allergen Reactions Breo Ellipta [Fluticasone Furoate-Vilanterol] Shortness of Breath Zoltan Chacon Past Medical History: Diagnosis Date Anxiety COPD (chronic obstructive pulmonary disease) with emphysema Herpes zoster Hiatal hernia Nephrolithiasis Presence of granulation tissue 04/16/2019 Added automatically from request for surgery [id number] Primary osteoarthritis of right hip 12/06/2019 Added automatically from request for surgery [id number] Tracheal stenosis 03/12/2020 Added automatically from request for surgery [id number] Social History Socioeconomic History Marital status: Highest education level: Not on file Tobacco Use Smoking status: Former Packs/day: 1.50 Years: 30.00 Total pack years: 45.00 Types: Cigarettes Quit date: 11/2015 Years since quittin.5 Smokeless tobacco: Never Vaping Use Family History Problem Relation Age of Onset Heart Failure Mother Myocardial Infarction Father Other - Specify Brother Polio Stroke Sister Emphysema Sister PHYSICAL EXAM BP 146/74 Pulse 59 Temp 98.8 F (37.1 C) Resp 18 Ht 1.829 m (6') Wt 92.4 kg (203 lb 11.3 oz) SpO2 97% BMI 27.63 kg/m Smoking Status Former Body mass index is 27.63 kg/m . Wt Readings from Last 3 Encounters: 05/16/23 92.4 kg (203 lb 11.3 oz) 05/09/23 95.6 kg (210 lb 11.2 oz) 11/08/22 99.1 kg (218 lb 8 oz) GENERAL: Well-developed male. Intubated, sedated HEENT: Pupils equal, round. NECK: Neck supple. No lymphadenopathy. No thyromegaly. No stridor. CARDIOVASCULAR: Regular rate and regular rhythm. No murmurs, rubs or gallops. Normal S1 and S2. PULMONARY: . No wheezing, rhonchi or rales. GASTROINTESTINAL: Soft, non-tender, non-distended. Bowel sounds present. MUSCULOSKELETAL: No cyanosis, clubbing. No joint effusions or erythema. SKIN: Warm and dry. No jaundice or rash. Trace edema NEUROLOGIC: intubated. Perrla. sedated PSYCHIATRIC: cannot assess DATA REVIEW CBC Lab Results Component Value Date WBC 5.53 05/17/2023 HGB 12.3 (L) 05/17/2023 HCT 38.0 (L) 05/17/2023 PLATELET 158 05/17/2023 MCV 90.7 05/17/2023 CMP Lab Results Component Value Date SODIUM 139 05/17/2023 POTASSIUM 4.4 05/17/2023 CHLORIDE 110 (H) 05/17/2023 CO2 19 (L) 05/17/2023 BUN 7 05/17/2023 CREATSERUM 0.76 05/17/2023 GLUCOSE 158 (H) 05/17/2023 Lab Results Component Value Date ALT 15 05/16/2023 AST 19 05/16/2023 GGT 29 03/22/2023 ALKPHOS 48 05/16/2023 BILITOTAL 0.4 05/16/2023 BILIDIRECT 0.1 05/16/2023 Lab Results Component Value Date CMVPCR Not detected 03/22/2023 Imaging/Radiological Studies I have personally reviewed and interpreted the radiographic data in [facility]. PFT Results 01/28/2021 12:00 04/01/2021 12:00 04/29/2021 12:00 05/27/2021 12:00 06/29/2021 11:00 PFT Results FVC-Pre 3.84 Liters FVC 4.38 4.07 4.33 4.5 FVC % Pred, % Ref 85 79 84 88 FVC-%Pred-Pre 83 % FEV1-Pre 2.36 Liters FEV1 Pre Liters 2.6 2.44 2.66 2.57 FEV1 % Pred % Ref 66 63 68 66 FEV1-%Pred-Pre 67 % FEV1/FVC-Pre 61 % FEV1/FVC % Ref 59 60 61 57 [id number] 0.99 L/sec FEF 25-75% 1.21 % 1.03 % 1.16 % 0.93 % TLCPleth-Pre 5.98 Liters RVPleth-Pre 1.84 Liters DLCOunc-Pre 25.27 mL/mmHg/min DLCOunc-%Pred-Pre 89 % DLCOcor-%Pred-Pre 93 % 07/29/2021 12:00 09/21/2021 12:00 10/29/2021 12/01/2021 12:00 12/28/2021 12:00 PFT Results FVC-Pre 4.47 Liters FVC 4.23 4.08 4.43 3.96 FVC % Pred, % Ref 82 79 86 77 FVC-%Pred-Pre 96 % FEV1-Pre 2.81 Liters FEV1 Pre Liters 2.6 2.55 2.77 2.46 FEV1 % Pred % Ref 67 65 71 63 FEV1-%Pred-Pre 79 % FEV1/FVC-Pre 63 % FEV1/FVC % Ref 62 63 82 62 [id number] 1.49 L/sec FEF 25-75% 1.12 % 1.22 % 1.32 % 1.11 % TLCPleth-Pre 5.7 Liters RVPleth-Pre 1.6 Liters DLCOunc-Pre 23.55 mL/mmHg/min DLCOunc-%Pred-Pre 83 % DLCOcor-%Pred-Pre 80 % 01/28/2022 12:00 03/30/2022 12:00 05/03/2022 15:00 05/31/2022 12:00 07/01/2022 12:00 PFT Results FVC-Pre 4.15 Liters FVC 4.31 3.69 4.22 4.43 FVC % Pred, % Ref 84 72 82 87 FVC-%Pred-Pre 90 % FEV1-Pre 2.65 Liters FEV1 Pre Liters 2.77 2.09 2.52 2.74 FEV1 % Pred % Ref 71 54 65 71 FEV1-%Pred-Pre 76 % FEV1/FVC-Pre 64 % FEV1/FVC % Ref 64 57 60 62 [id number] 1.37 L/sec FEF 25-75% 1.46 % 0.65 % 1.07 % 1.25 % TLCPleth-Pre RVPleth-Pre DLCOunc-Pre DLCOunc-%Pred-Pre DLCOcor-%Pred-Pre 07/30/2022 12:00 08/30/2022 12:00 09/29/2022 12:00 11/08/2022 13:32 11/29/2022 12:00 PFT Results FVC-Pre 3.9 Liters 3.9 Liters FVC 4.1 4.05 3.85 3.78 FVC % Pred, % Ref 80 79 75 77 FVC-%Pred-Pre 84 % 84 % FEV1-Pre 2.68 Liters 2.68 Liters FEV1 Pre Liters 2.68 2.5 2.33 2.36 FEV1 % Pred % Ref 69 65 60 62 FEV1-%Pred-Pre 76 % 76 % FEV1/FVC-Pre 69 % 69 % FEV1/FVC % Ref 65 62 60 62 [id number] 1.73 L/sec 1.73 L/sec FEF 25-75% 1.2 % 1.07 % 1.03 % TLCPleth-Pre 5.32 Liters 5.32 Liters RVPleth-Pre 1.33 Liters 1.33 Liters DLCOunc-Pre 25.61 mL/mmHg/min 25.61 mL/mmHg/min DLCOunc-%Pred-Pre 91 % 91 % DLCOcor-%Pred-Pre 89 % 89 % 12/27/2022 12:00 01/24/2023 12:00 02/28/2023 12:00 03/28/2023 12:00 05/09/2023 13:23 PFT Results FVC-Pre 3.68 Liters FVC 3.9 3.63 3.56 3.98 FVC % Pred, % Ref 79 71 70 78 FVC-%Pred-Pre 80 % FEV1-Pre 2.41 Liters FEV1 Pre Liters 2.41 2.32 2.22 2.46 FEV1 % Pred % Ref 64 60 57 64 FEV1-%Pred-Pre 69 % FEV1/FVC-Pre 65 % FEV1/FVC % Ref 62 64 62 62 [id number] 1.31 L/sec FEF 25-75% 1.08 % 1.04 % 1.16 % TLCPleth-Pre 5.54 Liters RVPleth-Pre 1.61 Liters DLCOunc-Pre 23.94 mL/mmHg/min DLCOunc-%Pred-Pre 86 % DLCOcor-%Pred-Pre 87 % Details More values are hidden. Newest values shown. Go to activity for more data. PULMONARY CXR - 05/09/23 IMPRESSION: Status post bilateral lung transplant. Chronic right lower lobe volume loss/atelectasis. No acute cardiopulmonary disease. CT Chest - 11/08/22 10/29/2021 Pending official read - appears stable No definite change from the previous study. Chronic elevation of the right hemidiaphragm with some volume loss and scarring in the right lung base remains, but the transplant lungs are otherwise clear. Irregularity of the bronchus intermedius appears unchanged. No definite air trapping is seen at this time, though the difference is likely a consequence of poor depth of expiration, particularly when compared to the prior study. 6MWT 02/26/21: 1598 feet (487 meters), lowest SpO2 97%, oxygen requirement: Room air 02/22/19: 1591 feet (485 meters), lowest SpO2 99%, oxygen requirement: Room air 09/28/18 (pre-tx): 984 feet (300 meters), lowest SpO2 95%, oxygen requirement: 3 LPM CARDIOLOGY TTE - 10/29/21 Left Ventricle: Chamber size is normal. Normal wall thickness. Normal global wall motion. Regional wall motion is normal. Ejection fraction is normal (60 - 65%). Diastolic function is normal. Left Atrium: Chamber size is moderately enlarged. Mitral Valve: Normal appearing leaflets. Leaflet mobility is normal. Trace regurgitation. No valve stenosis. Tricuspid Valve: Normal leaflets. Leaflet mobility is normal. Trace regurgitation. No stenosis. No echo/Doppler evidence for pulmonary hypertension. 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 There has been improvement of bone density since the previous examination. Colonoscopy - 06/21/2018 1. Cecum: Normal appearance no mass lesions normal IIeocecal valve. 2. Ascendlng colon. Normal appearance no mass lesions. 3. Transverse colon: Normal appearance. 2 polyps were identified. One was removed with biopsy forceps completely. The other was removed removed with snare cautery technique. Both of them were brought back to the channel of the scope. 4. Descending colon: Small polyp was identlfled was removed with snare cautery technique and brought back to the channel the scope. 5. Sigmold colon: Normal appearance minlmal dlverticular disease seen. 6. Rectum: Normal appearance no mass lesIons Internal hemorrholds were Identifled. Scope was withdrawn digital rectal exam showed no masses within the anus and a normal prostate smooth and small. Patlent will need to have another colonoscopy In 3 years. MICROSCOPIC DIAGNOSIS Transverse colon polyps, biopsy: Fragments of tubular adenoma. Fragments of fecal material. PSA - 02/26/21 2.03 Christelle Espino MD Division of Pulmonary, Critical Care & Sleep Medicine Department of Internal Medicine [facility] Associated Order(s): IP CONSULT TO NEUROLOGY Images from the original note were not included. NEUROLOGY CONSULTATION NOTE Reason for consultation: 63 y/o M, transfer from OSH, c/f seizure activity, loaded with keppra at OSH, burst suppression on OSH EEG. Appreciate recs for ongoing antiepileptic mgmt and EEG here. History of present illness: Nick Hernández is a 63 y.o.male with history of COPD s/p BL lung transplant (11/2018; immunosuppressed with Tacrolimus, Mycophenolate, Prednisone), CAD, HTN, chronic back pain who presented as transfer from [facility] for AMS, respiratory distress and seizure like activity. 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 Had been having personality changes (angry and forgetful) for past 3 months. On 05/05 had SOB and was agitated for which his contacted transplant team and was advised for ED visit if similar presentation again. In the meanwhile he was seen by transplant team at outpatient. On 05/15 was driving patient to the hospital and while on the way pt became agitated followed by unresponsiveness requiring BVM. On being more alert he complained of back pain between shoulder blades and loss of sensation in legs. On arrival to ER, he was noted to have seizure like activity twice and was intubated for airway protection. Seizure semiology is not described in the chart. He was started on cEEG and received keppra load (4.5g 201405/15/23) was also started on Propofol, Versed, and Fentanyl gtt. cEEG so far did not show any epileptiform activity other than burst suppression. CT C/A/P showed some atelectasis vs infiltrate in the RLL and no other acute changes. On admission to MICU at OSH his antimicrobial coverage was changed from Vanc, Zosyn, and Acyclovir to Meropenem and azithromycin. He had bronchoscopy there. LP was done under fluoroscopy guidance. 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 He has several exposures to farm animals, frequent consumer of cured meats, but no known history of consuming unpasteurized dairy products, no known sick contacts. No recent rashes. Of note, during the lung transplant, EBV was donor and recipient positive, CMV donor and recipient negative. Medical History Review of Systems: The patient was too encephalopathic to obtain accurate review of systems. Past Medical History: Diagnosis Date Anxiety COPD (chronic obstructive pulmonary disease) with emphysema Herpes zoster Hiatal hernia Nephrolithiasis Presence of granulation tissue 04/16/2019 Added automatically from request for surgery [id number] Primary osteoarthritis of right hip 12/06/2019 Added automatically from request for surgery [id number] Tracheal stenosis 03/12/2020 Added automatically from request for surgery [id number] Past Surgical History: Procedure Laterality Date BRONCHOSCOPY FLEXIBLE DIAGNOSTIC N/A 05/28/2020 Laterality: N/A; Surgeon: LARRY Mosley; Location: [facility] [place] BRONCHOSCOPY FLEXIBLE DIAGNOSTIC Bilateral 04/02/2020 Laterality: Bilateral; Surgeon: LARRY Mosley; Location: [facility] [place] BRONCHOSCOPY FLEXIBLE W/ TRACHEAL BRONCHIAL DILATION AND/OR STENT PLAC N/A 04/02/2020 Laterality: N/A; Surgeon: LARRY Mosley; Location: [facility] [place] HIP SURGERY Right 03/06/2020 BRONCHOSCOPY W/ TRANSBRONCHIAL BX SINGLE LOBE Bilateral 12/11/2019 Laterality: Bilateral; Surgeon: Akbar Davis DO; Location: [facility] [place] BRONCHOSCOPY W/ TUMOR DESTRUCTION OR STENOSIS RELIEF Bilateral 12/11/2019 Laterality: Bilateral; Surgeon: Duke Reyes MD; Location: [facility] [place] BRONCHOSCOPY W/ TUMOR DESTRUCTION OR STENOSIS RELIEF Bilateral 09/04/2019 Laterality: Bilateral; Surgeon: Akbar Davis DO; Location: [facility] [place] BRONCHOSCOPY W/ TUMOR DESTRUCTION OR STENOSIS RELIEF Bilateral 07/17/2019 Laterality: Bilateral; Surgeon: Nick Lopez MD; Location: [facility] [place] BRONCHOSCOPY W/ TUMOR DESTRUCTION OR STENOSIS RELIEF Right 05/22/2019 Laterality: Right; Surgeon: Josie Pyle DO; Location: [facility] [place] BRONCHOSCOPY FLEXIBLE W/ TRACHEAL BRONCHIAL DILATION AND/OR STENT PLAC Right 05/22/2019 Laterality: Right; Surgeon: Josie Pyle DO; Location: [facility] [place] BRONCHOSCOPY W/ TUMOR DESTRUCTION OR STENOSIS RELIEF Bilateral 04/10/2019 Laterality: Bilateral; Surgeon: Matthew Davila MD, PhD; Location: [facility] [place] BRONCHOSCOPY W/ TRANSBRONCHIAL BX SINGLE LOBE Bilateral 03/13/2019 Laterality: Bilateral; Surgeon: Matthew Davila MD, PhD; Location: [facility] [place] BRONCHOSCOPY W/ TRANSBRONCHIAL BX SINGLE LOBE N/A 02/06/2019 Laterality: N/A; Surgeon: Matthew Davila MD, PhD; Location: [facility] [place] BRONCHOSCOPY FLEXIBLE W/ BRONCHIAL ALVEOLAR LAVAGE Bilateral 12/26/2018 Laterality: Bilateral; Surgeon: Nick Lopez MD; Location: [facility] BRONCHOSCOPY TRANSPLANT LUNG DOUBLE W/ BYPASS Bilateral 12/11/2018 Laterality: Bilateral; Surgeon: James Reyna MD, PhD, MPH; Location: [facility] MAIN OR ORIF WRIST TONSILLECTOMY VERTEBROPLASTY PERCUTANEOUS LUMBAR SINGLE VERTEBRAL BODY Family History Problem Relation Age of Onset Heart Failure Mother Myocardial Infarction Father Other - Specify Brother Polio Stroke Sister Emphysema Sister Social History Socioeconomic History Marital status: Spouse name: Not on file Number of children: Not on file Years of education: Not on file Highest education level: Not on file Occupational History Not on file Tobacco Use Smoking status: Former Packs/day: 1.50 Years: 30.00 Total pack years: 45.00 Types: Cigarettes Quit date: 11/2015 Years since quittin.5 Smokeless tobacco: Never Vaping Use Vaping Use: Never used Substance and Sexual Activity Alcohol use: No Comment: Past use with history of DUI Drug use: No Sexual activity: Not on file Other Topics Concern Not on file Social History Narrative Not on file Social Determinants of Health Financial Resource Strain: Not on file Food Insecurity: Not on file Transportation Needs: Not on file Physical Activity: Not on file Stress: Not on file Social Connections: Not on file Intimate Partner Violence: Not on file Housing Stability: Not on file Allergies Allergen Reactions Breo Ellipta [Fluticasone Furoate-Vilanterol] Shortness of Breath Codeine Hives Medications Prior to Admission Medication Sig Dispense Refill Last Dose acetaminophen 325 MG tablet Take 2 tablets by mouth every 6 hours as needed for mild or moderate pain. 100 tablet 5 Alcohol Swabs 70 % Pads 1 Each by Unknown route 2 times daily. 100 Each 11 alendronate 70 MG tablet Take 1 tablet by mouth every 7 days. 12 tablet 3 amLODIPine 5 MG tablet Take 1 tablet by mouth daily. 90 tablet 3 aspirin (RA Aspirin Adult Low Dose) 81 MG Chew Tab chewable tablet Chew 1 tablet daily. 90 tablet 3 azithromycin 250 MG tablet Take 1 tablet by mouth every Tuesday, Tuesday and Tuesday. 36 tablet 3 Calcium Citrate-Vitamin D 315-200 MG-UNIT tablet Take 1 tablet by mouth every 12 hours. 180 tablet 3 carveDILOL 25 MG tablet Take 1 tablet by mouth 2 times daily. 180 tablet 3 ergocalciferol 1.25 MG (62316 UT) capsule Take 1 capsule by mouth once a week. 12 capsule 3 Gabapentin 400 MG capsule TAKE 1 CAPSULE BY MOUTH EVERY MORNING, TAKE 2 CAPSULES BY MOUTH EVERY AFTERNOON and TAKE 1 CAPSULE BY MOUTH EVERY EVENING 120 capsule 5 glucose blood test strips (MaestroDev Ultra) Strip strip 400 strips by Instructed route 2 times daily. 400 strip 11 Lancets Misc 1 Each by Unknown route 2 times daily. 100 Each 1 magnesium oxide 400 MG tablet Take 2 tablets by mouth every 12 hours. 360 tablet 3 multivitamin (multivitamin) tablet Take 1 tablet by mouth daily. 90 tablet 3 mycophenolate mofetil (CELLCEPT) 250 MG capsule Take 4 capsules by mouth every 12 hours. 720 capsule 3 oxybutynin CR 10 MG Tab SR 24 HR tablet Take 1 tablet by mouth daily. pantoprazole [address] tablet DR Take 1 tablet by mouth 2 times daily. 180 tablet 3 predniSONE 5 MG tablet take 1 tablet by mouth daily 90 tablet 3 Rosuvastatin 10 MG tablet Take 1 tablet by mouth daily. 90 tablet 3 SITagliptin (Januvia) 100 MG tablet Take 1 tablet by mouth daily. 90 tablet 3 sulfamethoxazole-trimethoprim 800-160 MG per tablet Take 1 tablet by mouth three times a week. 36 tablet 3 tacrolimus (PROGRAF) 0.5 MG capsule Take 1 capsule by mouth daily every morning AND 1 capsule every evening. 180 capsule 3 Current Medications Current Facility-Administered Medications Medication Dose Route Frequency Provider Last Rate Last Admin Acyclovir (ZOVIRAX) 900 mg in Sodium chloride 0.9%, with overfill 293 mL (total volume) IVPB 10 mg/kg (Dosing Weight) Intravenous Q8H Gerardo Leslie MD 293 mL/hr at 05/16/23 2253 900 mg at 05/16/23 2253 Ampicillin (OMNIPEN) 2 g in sodium chloride 0.9% (MB PLUS) 100 mL (total volume) IVPB 2 g Intravenous Q4H Gerardo Leslie MD 200 mL/hr at 05/17/23 0202 2 g at 05/17/23 0202 Azithromycin (ZITHROMAX) tablet 250 mg 250 mg Oral Q MWF Jesika Ireland MD chlorhexidine (PERIDEX) 0.12 % oral solution 15 mL 15 mL Mucous Membrane Q12H Jesika Ireland MD 15 mL at 05/16/23 2140 dexAMETHasone PF (DECADRON) injection 10 mg 10 mg Intravenous Q6HNS Gerardo Leslie MD 10 mg at 05/16/23 2245 Enoxaparin Sodium (LOVENOX) injection 40 mg 40 mg Subcutaneous Q24H Camilla Martin [facility] Lactated ringers IV solution Intravenous Continuous Gerardo Leslie MD 100 mL/hr at 05/16/23 2252 New Bag at 05/16/23 2252 Magnesium sulfate 4 g in sterile water 50 ml premix IVPB 4 g Intravenous As directed PRN Jesika Ireland MD Meropenem (MERREM) 2 g in Sodium chloride 0.9%, with overfill 110 mL (total volume) IVPB 2 g Intravenous Q8HNS Camilla Martin, [facility] 36.7 mL/hr at 05/16/23 2246 2 g at 05/16/23 2246 Multi-Vitamins tablet 1 tablet 1 tablet Oral Daily Jesika Ireland MD Pantoprazole (PROTONIX) tablet DR 40 mg 40 mg Oral BID Jesika Ireland MD 40 mg at 05/16/232244 Potassium chloride 20 mEq in sterile water 50 ml premix IVPB 20 mEq Intravenous As directed PRN Jesika Ireland MD Or Potassium chloride (K-DUR) tablet ER 20 mEq 20 mEq Oral As directed PRN Jesika Ireland MD Or Potassium Bicarb-Citric Acid (Effer-K) 20 MEQ effervescent tablets for oral solution 20 mEq 20 mEq Per NG tube As directed PRN Jesika Ireland MD Or Potassium chloride 10 mEq in sterile water 100 ml premix IVPB 10 mEq Intravenous As directed PRN Jesika Ireland MD predniSONE (DELTASONE) tablet 5 mg 5 mg Oral Daily Jesika Ireland MD Propofol (DIPRIVAN) 1000 MG/100ML premix infusion 0-50 mcg/kg/min (Dosing Weight) Intravenous Continuous Jesika Ireland MD 27.7 mL/hr at 05/16/23 2329 50 mcg/kg/min at 05/16/23 232 Sodium chloride 0.9% IV solution 250 mL 250 mL Intravenous PRN Jesika Ireland MD 20 mL/hr at 05/16/234 250 mL at 05/16/232123 sodium phosphate 30 mmol in Sodium chloride 0.9%, with overfill 285 mL (total volume) IVPB 30 mmol Intravenous As directed PRN Jesika Ireland MD Or sodium phosphate 45 mmol in Sodium chloride 0.9%, with overfill 290 mL (total volume) IVPB 45 mmol Intravenous As directed PRGaetano Ireland MD [START ON 05/18/2023] Sulfamethoxazole-trimethoprim (BACTRIM DS) 800-160 MG per tablet 1 tablet 1 tablet Oral Once per day on Tue Jesika Ireland MD Physical Examination Temp: [98.2 F (36.8 C)-99 F (37.2 C)] 98.4 F (36.9 C) Pulse (Heart Rate): [67-88] 86 Resp Rate: [18-29] 23 BP: (99-156)/(57-82) 156/80 O2 Sat (%): [98 %-100 %] 98 % Weight: [92.4 kg (203 lb 11.3 oz)] 92.4 kg (203 lb 11.3 oz) Body mass index is 27.63 kg/m . General: Intubated, sedation held for exam HENT: Intubated. Normal external appearance of ears and nose. CV/Chest: Equal chest raising. No audible wheezing. RRR. Abdomen: Non-distended. Extremities: No appreciable cyanosis, deformity, or lower extremity edema. Skin: No rash or bruises Neurological Exam: sedation held for exam Cognition: Drowsy, Eyes are closed, opens to loud voice and simultaneous tactile stimulation. Does make eye contact intermittently and partially tracks . Language: Does not follow verbal commands (open/close eyes, squeeze hands) Cranial Nerves:Blink to threat +ve on right eye but not left. Eyes are midline. Pupils are 3mm equal and reactive to light, corneal reflexes are preserved. Cough and gag are preserved. Face appears grossly symmetric Motor/Sensory: moving all extremities spontaneously/semipurposeful, withdraws to pain in all extremities Reflexes: Triceps Biceps Brachioradialis Patellar Achilles Babinski Right 2 2 2 2 1 down Left 2 2 2 2 1 down Coordination: Unable to assess to condition Gait: Unable to assess to condition Stroke Assessment: 05/17/2023 Diagnostic Data Laboratory data: UDS postive for benzo, fentanyl, opiates, and cannabinoids CBC with WBC 6.74, Hb 12.1, plt 152 BMP with CO2 18, otherwise okay LFT okay procal 0.06 TSH 0.567 PT/INR 14.1/1.1 Mg 1.9 phos 2.3 CK 94 Lactate 1.0 Ammonia 32 folate 30.85 B12 630 Tacrolimus level 3.8- goal as per transplant team 4-6 Imaging: CT HEAD WO IV CONTRAST at OSH - Impression - 1. No acute intracranial findings. 2. Chronic ischemic changes suspected. CTA Chest Abdomen Pelvis (05/15/23) at OSH IMPRESSION: 1. No acute process. No evidence of an intramural hematoma, dissection or aneurysm. 2. Patchy airspaces opacities near the lung bases, which could relate to atelectasis versus developing pneumonia in the appropriate clinical setting. 3. Small nodular density in the left hemipelvis, presumed to relate to a lymph node. Attention on follow-up studies is recommended. 4. Additional chronic findings as above, including varying degrees of vascular stenosis (severe near the left internal iliac artery origin). MRI brain wo contrast at OSH: IMPRESSION: 1. Diminished cerebral volume and evidence of chronic white matter small vessel ischemic change without acute intracranial abnormality. 2. Paranasal sinus disease. 3. Small bilateral mastoid effusions. Diagnostic procedures: cEEG at OSH on 05/16/23: This continuous EEG with video is abnormal. A persistent generalized burst-attenuation pattern is seen as evidenced by brief generalized bursts of fast activity intermixed with brief intervals of generalized attenuation. No clearcut epileptiform activity nor seizures are seen. The findings are consistent with a [id number] global encephalopathy nonspecific as to etiology and confounded by sedation. CSF lumbar puncture, clear CSF CSF Glucose 62/ Protein 83 , WBC 2, RBC 28 Meningitis/Encephalitis PCR Panel (includes HSV PCR and VSV PCR) (05/16/2023 4:47 PM EDT) Lab Results - Meningitis/Encephalitis PCR Panel (includes HSV PCR and VSV PCR) (05/16/2023 4:47 PM EDT) Escherichia coli K1 Not Detected Not Detected [facility] 05/16/2023 7:46 PM EDT [facility] Haemophilus influenzae Not Detected Not Detected [facility] 05/16/2023 7:46 PM EDT [facility] Listeria monocytogenes Not Detected Not Detected [facility] 05/16/2023 7:46 PM EDT [facility] Neisseria meningitidis Not Detected Not Detected [facility] 05/16/2023 7:46 PM EDT [facility] Streptococcus agalactiae Not Detected Not Detected [facility] 05/16/2023 7:46 PM EDT [facility] Streptococcus pneumoniae Not Detected Not Detected [facility] 05/16/2023 7:46 PM EDT [facility] Cytomegalovirus Not Detected Not Detected [facility] 05/16/2023 7:46 PM EDT [facility] Enterovirus Not Detected Not Detected [facility] 05/16/2023 7:46 PM EDT [facility] Herpes simplex virus 1 Not Detected Not Detected [facility] 05/16/2023 7:46 PM EDT [facility] Herpes simplex virus 2 Not Detected Not Detected [facility] 05/16/2023 7:46 PM EDT [facility] Human herpesvirus 6 Not Detected Not Detected [facility] 05/16/2023 7:46 PM EDT [facility] Human parechovirus Not Detected Not Detected [facility] 05/16/2023 7:46 PM EDT [facility] Varicella zoster virus Not Detected Not Detected [facility] 05/16/2023 7:46 PM EDT [facility] Cryptococcus neoformans/gattii Not Detected Not Detected [facility] 05/16/2023 7:46 PM EDT [facility] Pneumonia PCR Panel (05/16/2023 12:28 AM EDT) Lab Results - Pneumonia PCR Panel (05/16/2023 12:28 AM EDT) Pathologist [facility] Staphylococcus aureus Not Detected Not Detected [facility] 05/16/2023 5:20 AM EDT [facility] Streptococcus agalactiae Not Detected Not Detected [facility] 05/16/2023 5:20 AM EDT [facility] Streptococcus pneumoniae Not Detected Not Detected [facility] 05/16/2023 5:20 AM EDT [facility] Streptococcus pyogenes Not Detected Not Detected [facility] 05/16/2023 5:20 AM EDT [facility] Haemophilus influenzae Not Detected Not Detected [facility] 05/16/2023 5:20 AM EDT [facility] Moraxella catarrhalis Not Detected Not Detected [facility] 05/16/2023 5:20 AM EDT [facility] Acinetobacter baumannii complex Not Detected Not Detected [facility] 05/16/2023 5:20 AM EDT [facility] Enterobacter cloacae complex Not Detected Not Detected [facility] 05/16/2023 5:20 AM EDT [facility] Escherichia coli Not Detected Not Detected [facility] 05/16/2023 5:20 AM EDT [facility] Klebsiella (Enterobacter) aerogenes Not Detected Not Detected [facility] 05/16/2023 5:20 AM EDT [facility] Klebsiella oxytoca Not Detected Not Detected [facility] 05/16/2023 5:20 AM EDT [facility] Klebsiella pneumoniae Not Detected Not Detected [facility] 05/16/2023 5:20 AM EDT [facility] Proteus spp Not Detected Not Detected [facility] 05/16/2023 5:20 AM EDT [facility] Pseudomonas aeruginosa Not Detected Not Detected [facility] 05/16/2023 5:20 AM EDT [facility] Serratia marcescens Not Detected Not Detected [facility] 05/16/2023 5:20 AM EDT [facility] Chlamydia pneumoniae Not Detected Not Detected [facility] 05/16/2023 5:20 AM EDT [facility] Legionella pneumophila Not Detected Not Detected [facility] 05/16/2023 5:20 AM EDT [facility] Mycoplasma pneumoniae Not Detected Not Detected [facility] 05/16/2023 5:20 AM EDT [facility] Adenovirus Not Detected Not Detected [facility] 05/16/2023 5:20 AM EDT [facility] Coronavirus Not Detected Not Detected [facility] 05/16/2023 5:20 AM EDT [facility] Human Metapneumovirus Not Detected Not Detected [facility] 05/16/2023 5:20 AM EDT [facility] Human Rhinovirus/Enterovirus Not Detected Not Detected [facility] 05/16/2023 5:20 AM EDT [facility] Influenza A Not Detected Not Detected [facility] 05/16/2023 5:20 AM EDT [facility] Influenza B Not Detected Not Detected [facility] 05/16/2023 5:20 AM EDT [facility] Parainfluenza virus Not Detected Not Detected [facility] 05/16/2023 5:20 AM EDT [facility] Respiratory Syncytial Virus Not Detected Not Detected RAFIQ MARQUEZ 05/16/2023 5:20 AM EDT [facility] Impression Nick Hernández is a 63 year old male with hx of BL lung transplant on immunosuppression, CAD and chronic back pain who has been having behavioral changes and weight loss for past few month acutely deteriorated with seizure like activity requiring intubation. He was loaded with Keppra and started on burst suppression. Work up at OSH including CTH, CT C/A/P, cEEG, MRI brain has been unrevealing thus far. On exam with holding sedation, he is intubated, he opens eyes to tactile stimulation and partially tracks examiner but does not follow commands. Corneal, cough, gag reflexes preserved, Moving all extremities spontaneously but semi purposeful, reflexes 2 through out, negative babinski, no gross neck rigidity noted. Labs work thus far unrevealing. Unclear cause for patients presentation and differential is broad at this time. 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 His current mental status is concerning for subclinical seizures. Recommendations: - cEEG to monitor for subclinical seizures - Consider changing propofol to alternative to avoid masking of EEG interictals. - LP with CSF studies: cell count with differential, protein, glucose, meningitis/encephalitis panel, encephalopathy panel, Blastomyces, Cryptococcus, Histoplasma Ag, VDRL, West Nile IGG/IGM, immunophenotyping, fungal culture, AFB, C&S.(ordered) - CT head wo contrast, (ordered) - CTA brain and neck (ordered) - MRI brain w.wo contrast once stabilized/after EEG - MRI whole spine screening since pt had thoracic back pain with BL lower extremity numbness initially. Thank you for the consultation. If you have any further questions, please contact Neurology Team B. Patient and plan discussed with Dr. Simon. YOLANDA Gabriel Neurology PGY-3 Pager: [phone] 05/17/23 2:17 AM Associated attestation - Margaret Simon DO - 05/17/2023 8:30 PM EDT I saw and personally examined the patient today with the resident/fellow. I discussed the findings and therapeutic plan with the resident/fellow. I agree with the history, physical examination, and medical decisions as outlined. This is a 63 year old gentleman with a past medical history of bilateral lung transplant currently immunosuppressed with Tacrolimus, Mycophenolate, Prednisone whom neurology is consulted on due to altered mental status of unclear etiology. reports subacute change in personality over the past 3 months. On 05/15 his was driving [facility] an [facility] when he was noted to be unresponsive. On arrival to the ED unclear seizure like activity was witnessed leading to starting AED regimen and intubation. Lumbar puncture was completed on 05/16/23 with WBC 2, protein 83, encephalitis/meningitis panel negative. MRI brain was obtained without contrast which was unremarkable. He was transferred to [facility] on 05/16 for further care and management. 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 CTH within normal limits. These were personally reviewed, agree with radiology report. Assessment and Plan: This is a 63 year old gentleman with a past medical history of bilateral lung transplant currently immunosuppressed with Tacrolimus, Mycophenolate, Prednisone whom neurology is consulted on due to altered mental status of unclear etiology. We will start with cEEG off all AED to better assess for possible seizure/seizure focus. Several labs were added to CSF retained at outside hospital. We will repeat MRI brain and spine (given report of shoulder pain prior to loss of consciousness). We may need to repeat CSF analysis. documented in this encounter [facility] 05-20-2023 Consult note Associated Order (s): IP CONSULT TO PSYCHIATRY Images from the original note were not included. PSYCHIATRY CONSULTATION 05/20/2023 Nick Hernández : 1960 REQUESTING PROVIDER Fior Soliman DO, PhD Shagufta North MD REASON FOR CONSULTATION Pt with hx of bilateral lung transplant who presents with acute mental status in setting of chronic personality issues. Transplant attending wondering if pt is candidate for starting psych med. HISTORY OF PRESENT ILLNESS Nikc Hernández is a 63 y.o. male with history of COPD s/p BL lung transplant (11/2018; immunosuppressed with Tacrolimus, Mycophenolate, Prednisone), CAD, HTN, chronic back pain who presented as transfer from [facility] for AMS, respiratory distress and seizure like activity. Psychiatry consulted due to assistance with behavioral changes. Interviewed patient in his room. He is calm, cooperative, alert, orient. Reports he has been more agitated and irritable over the past several months which is a behavioral change for him. Reports April was a rough month for him due to a variety of things that went wrong. Mentions he was working on an issue with his well when he felt like he had a heat stroke and was brought to the hospital. Reports note remembering anything that happened until a couple days ago when he woke up. Reports being confused previously but now feels more sharp. Reports some depressive symptoms (overall somewhat guarded with responses) that have been bothersome since the transplant include low mood, difficulty adjusting with various medical procedures, inconsistent sleep. He denies RICHARD, AH. Reports VH consistenting of seeing a picture whenever he closes his eyes that will change when he open and closes his eyes again. Spoke with at bedside She reports a personality change for the past 5 months. Reports he has a short fuse, will blow up, get mad at anything or anyone, alienating family. States he has to be busy. Denies issues with social cues. Reports some memory concerns as he will misplace his keys and wallet but states he frequently eventually finds it. States he has bad road rage and will follow people around. Notes other aspects of his personality as changed as well such as eating spaghetti which was something he would never do in the past. States he is interested in things he was never interested in in the past. She does feel like he may struggle with depressive symptoms and could benefit from a medication. Discussed reducing situations that could be potentially dangerous to the patient (reducing access to guns, letting drive, etc.) Nick Hernández's review of systems today is positive for problems with irritability, chronic back pain. All other systems were reviewed and are negative. PAST PSYCHIATRIC HISTORY The patient denies any previous psychiatric problems or diagnoses, inpatient or outpatient mental health care, suicide attempts, use of psychotropic medications, or any self injurious behavior. 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 Added automatically from request for surgery [id number] Past Surgical History: Procedure Laterality Date BRONCHOSCOPY FLEXIBLE DIAGNOSTIC N/A 05/28/2020 Laterality: N/A; Surgeon: Yovanny Perla [facility]; Location: [facility]CHOSCOPY [facility] BRONCHOSCOPY FLEXIBLE DIAGNOSTIC Bilateral 04/02/2020 Laterality: Bilateral; Surgeon: Yovanny Perla [facility]; Location: [facility]CHOSCOPY [facility] BRONCHOSCOPY FLEXIBLE W/ TRACHEAL BRONCHIAL DILATION AND/OR STENT PLAC N/A 04/02/2020 Laterality: N/A; Surgeon: Yovanny Perla [facility]; Location: [facility] BRONCHOSCOPY [facility] HIP SURGERY Right 03/06/2020 BRONCHOSCOPY W/ TRANSBRONCHIAL BX SINGLE LOBE Bilateral 12/11/2019 Laterality: Bilateral; Surgeon: Akbar Davis DO; Location: [facility] BRONCHOSCOPY [facility] BRONCHOSCOPY W/ TUMOR DESTRUCTION OR STENOSIS RELIEF Bilateral 12/11/2019 Laterality: Bilateral; Surgeon: Duke Reyes MD; Location: [facility] BRONCHOSCOPY [place] BRONCHOSCOPY W/ TUMOR DESTRUCTION OR STENOSIS RELIEF Bilateral 09/04/2019 Laterality: Bilateral; Surgeon: Akbar Davis DO; Location: [facility] BRONCHOSCOPY [facility] BRONCHOSCOPY W/ TUMOR DESTRUCTION OR STENOSIS RELIEF Bilateral 07/17/2019 Laterality: Bilateral; Surgeon: Nick Lopez MD; Location: [facility] BRONCHOSCOPY [facility] BRONCHOSCOPY W/ TUMOR DESTRUCTION OR STENOSIS RELIEF Right 05/22/2019 Laterality: Right; Surgeon: Josie Pyle DO; Location: [facility] BRONCHOSCOPY [facility] BRONCHOSCOPY FLEXIBLE W/ TRACHEAL BRONCHIAL DILATION AND/OR STENT PLAC Right 05/22/2019 Laterality: Right; Surgeon: Josie Pyle DO; Location: [facility] BRONCHOSCOPY [place] BRONCHOSCOPY W/ TUMOR DESTRUCTION OR STENOSIS RELIEF Bilateral 04/10/2019 Laterality: Bilateral; Surgeon: Matthew Davila MD, PhD; Location: [facility] BRONCHOSCOPY [place] BRONCHOSCOPY W/ TRANSBRONCHIAL BX SINGLE LOBE Bilateral 03/13/2019 Laterality: Bilateral; Surgeon: Matthew Davila MD, PhD; Location: [facility] BRONCHOSCOPY [place] BRONCHOSCOPY W/ TRANSBRONCHIAL BX SINGLE LOBE N/A 02/06/2019 Laterality: N/A; Surgeon: Matthew Davila MD, PhD; Location: [facility] BRONCHOSCOPY [facility] BRONCHOSCOPY FLEXIBLE W/ BRONCHIAL ALVEOLAR LAVAGE Bilateral 12/26/2018 Laterality: Bilateral; Surgeon: Nick Lopez MD; Location: [facility] BRONCHOSCOPY TRANSPLANT LUNG DOUBLE W/ BYPASS Bilateral 12/11/2018 Laterality: Bilateral; Surgeon: James Reyna MD, PhD, MPH; Location: [facility] MAIN OR ORIF WRIST TONSILLECTOMY VERTEBROPLASTY PERCUTANEOUS LUMBAR SINGLE VERTEBRAL BODY FAMILY PSYCHIATRIC HISTORY The patient denies any family history of mental illness or treatment, psychiatric hospitalizations, suicide attempts, or substance problems. SOCIAL HISTORY Lives at home in . Around the [facility]. Disabled. 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 No access to [employer] SUBSTANCE USE HISTORY According to the patient chart, he reports that he quit smoking about 7 years ago. His smoking use included cigarettes. He has a 45.00 pack-year smoking history. He has never used smokeless tobacco. He reports no history of alcohol use. He reports no history of drug use. Denies all ALLERGIES He is allergic to breo ellipta [fluticasone furoate-vilanterol] and codeine. MEDICATIONS Current Scheduled Medications: Azithromycin (ZITHROMAX) tablet 250 mg, 250 mg, Q MWF carveDILOL (COREG) tablet 25 mg, 25 mg, BID Enoxaparin Sodium (LOVENOX) injection 40 mg, 40 mg, Q24H Gabapentin (NEURONTIN) capsule 400 mg, 400 mg, TID Insulin lispro (HUMALOG) injection, , 4x daily w/meals, HS lidocaine 4 % patch 1 patch, 1 patch, Q24H Multi-Vitamins tablet 1 tablet, 1 tablet, Daily Mycophenolate mofetil (CELLCEPT) capsule 1,000 mg, 1,000 mg, Q12H Pantoprazole (PROTONIX) tablet DR 40 mg, 40 mg, BID prednisoLONE acetate (PRED FORTE) 1 % ophthalmic suspension 1 drop, 1 drop, BID predniSONE (DELTASONE) tablet 5 mg, 5 mg, Daily Sulfamethoxazole-trimethoprim (BACTRIM DS) 800-160 MG per tablet 1 tablet, 1 tablet, Once per day on Tue Tacrolimus (PROGRAF) capsule 1 mg, 1 mg, Q12H Current PRN Medications: Acetaminophen, 650 mg, Q4H PRN Insulin lispro, , PRN And Dextrose, 7.5-25 g, As directed PRN And glucose, 1-2 Tube, As directed PRN hydrOXYzine hcl, 25 mg, TID PRN Magnesium Sulfate IVPB, 4 g, As directed PRN potassium chloride, 20 mEq, As directed PRN Or Potassium chloride, 20 mEq, As directed PRN Or Potassium Bicarb-Citric Acid, 20 mEq, As directed PRN Or potassium chloride, 10 mEq, As directed PRN Sodium chloride 0.9%, 250 mL, PRN Sodium Phosphate IVPB, 30 mmol, As directed PRN Or Sodium Phosphate IVPB, 45 mmol, As directed PRN RESULTS/DATA REVIEW Labs and imaging have been reviewed. Recent Results (from the past 24 hour(s)) GLUCOSE POC Collection Time: 05/19/23 4:27 PM Result Value Ref Range Glucose (POC Device) 123 (H) 70 - 99 mg/dL POC Sample Type CAPBL GLUCOSE POC Collection Time: 05/19/23 9:11 PM Result Value Ref Range Glucose (POC Device) 114 (H) 70 - 99 mg/dL POC Sample Type CAPBL CHEM 7 (LYTES,BUN,CREA,GLUC) Collection Time: 05/20/23 1:10 AM Result Value Ref Range Sodium 142 135 - 145 mmol/L Potassium 4.2 3.5 - 5.0 mmol/L Chloride 108 98 - 108 mmol/L CO2 24 21 - 31 mmol/L Glucose 99 70 - 99 mg/dL BUN 11 7 - 25 mg/dL Creatinine 0.80 0.70 - 1.30 mg/dL Bun/Crea Ratio 14 Osmolality (Calculated) 296 278 - 305 mOsm/kg Anion Gap 14 7 - 17 mmol/L eGFR, CKD-EPI, Male >90 >=60 mL/min/1.73m2 CBC,PLATELETS Collection Time: 05/20/23 1:10 AM Result Value Ref Range WBC Count 6.14 3.73 - 10.10 K/uL RBC Count 4.58 4.38 - 5.83 M/uL Hemoglobin 13.3 (L) 13.4 - 16.8 g/dL Hematocrit 41.8 39.6 - 48.8 % Mean Cell Volume 91.3 79.0 - 94.5 fL Mean Cell Hgb 29.0 26.1 - 33.3 pg Mean Cell Hgb Conc 31.8 (L) 31.9 - 36.5 g/dL RBC Distribution 14.5 (H) 10.9 - 14.3 % Platelet Count 193 146 - 337 K/uL Mean Platelet Volume 10.5 8.7 - 12.3 fL MAGNESIUM Collection Time: 05/20/23 1:10 AM Result Value Ref Range Magnesium 2.3 1.6 - 2.6 mg/dL PHOSPHATE, INORGANIC Collection Time: 05/20/23 1:10 AM Result Value Ref Range Phosphorous 3.3 2.2 - 4.6 mg/dL GLUCOSE POC Collection Time: 05/20/23 7:27 AM Result Value Ref Range Glucose (POC Device) 116 (H) 70 - 99 mg/dL POC Sample Type CAPBL TACROLIMUS LEVEL, TROUGH (PRE DRUG LEVEL) Collection Time: 05/20/23 7:51 AM Result Value Ref Range Tacrolimus, Trough 4.2 Bone Marrow Transplant: 4.0-12.0, Therapeutic: 5.0-15.0 ng/mL GLUCOSE POC Collection Time: 05/20/23 11:30 AM Result Value Ref Range Glucose (POC Device) 129 (H) 70 - 99 mg/dL POC Sample Type CAPBL EKG: Imaging/Studies: EXAM: CT HEAD WITHOUT CONTRAST, 05/17/2023 1:54 AM COMPARISON: None. CLINICAL INDICATIONS: 63 years Male Mental status change, unknown cause; RELEVANT CLINICAL HISTORY: TECHNIQUE: A series of transaxial computerized tomographic images are obtained from base of skull to vertex without intravenous contrast. Axial whole-head and thin section posterior fossa slices are provided. Reformats: Sagittal and coronal. FINDINGS: Hauser-white matter differentiation is preserved. No acute large territory infarction is seen. No acute intracranial hemorrhage is seen. No significant mass effect or midline shift. Ventricles are normal in size and configuration for patient age. Skull appears intact. Visualized orbits appear normal. Small fluid level in the right maxillary sinus. Changes of prior left-sided maxillary antrectomies. Small fluid level is also noted in the left sphenoid sinus. IMPRESSION IMPRESSION: No acute intracranial findings. Fluid levels in the paranasal sinuses. Correlate for sinusitis. Reason For Exam: Mental status change, unknown cause EXAMINATION: MRI of the brain without contrast. EXAM DATE & TIME: 05/16/2023 3:10 PM EDT INDICATION: Mental status change, unknown cause ADDITIONAL INFORMATION: 63-year-old male with mental status change of unknown cause presents for evaluation COMPARISON: CT head dated 05/15/2023 LIMITATIONS: None TECHNIQUE: Sagittal T1, coronal T2, transaxial T2, FLAIR, gradient echo and diffusion weighted sequences were performed through the brain. FINDINGS: Ventricular system and Extra-axial spaces: Generalized enlargement of the ventricles and sulci is noted without extracerebral collection with mass effect. Cerebral and cerebellar parenchyma: Periventricular foci of increased signal intensity on T2 and FLAIR are identified without mass effect or restricted diffusion, compatible with chronic microvascular ischemic change. No additional focal parenchymal enhancing or nonenhancing lesion is identified throughout the cerebrum or cerebellum. Brainstem: Normal. Sella turcica and pituitary: Normal. Vascular system: Normal signal void is noted within the major intracranial vessels. Paranasal sinuses: Mucosal thickening is present involving the ethmoid, sphenoid and maxillary sinuses. An air-fluid level is present in the right maxillary sinus. Mastoid air cells: There are small bilateral mastoid effusions. Orbits: Normal. Impression 1. Diminished cerebral volume and evidence of chronic white matter small vessel ischemic change without acute intracranial abnormality. 2. Paranasal sinus disease. 3. Small bilateral mastoid effusions. MENTAL STATUS EXAMINATION Appearance: laying in bed in no acute distress Attention: Intact to conversation Orientation: person, place and time Interview Behavior: cooperative Attire: hospital attire Grooming: fair Eye Contact: fair Mood: good Affect: consistent Motor Activity: No tremors, muscle weakness, muscle rigidity/stiffness/abnormal tone, clonus, abnormal involuntary muscle movements or seizure activity were noted. Speech: verbose, loud volume, normal rate Thought Process/Associations: linear, logical generally, some loose associations towards end of assessment Suicidal Ideation: denied by patient Homicidal Ideation:denied by patient Delusions: none Hallucination: reports visual hallucinations when his eyes are closed. Does not appear to be responding to internal stimuli Memory: poor recent Insight/Judgment: poor insight and poor judgement Impulse Control: intact currently Fund of Knowledge: grossly intact Language/Vocabulary: maltese/fluent Cognition: grossly intact Vital Signs: Blood pressure (!) 180/103, pulse 68, temperature 97.1 F (36.2 C), temperature source Oral, resp. rate 11, height 1.829 m (6'), weight 92.4 kg (203 lb 11.3 oz), SpO2 95 %. IMPRESSION Depressive disorder Acute encephalopathy - resolving Personality change - Concern for underlying cognitive decline/dementia (FTD) HTN Anemia Bilateral Lung transplant CAD GERD Deconditioning Demoralization Electrolyte disorder HLD Nick Hernández is a 63 y.o. male with history of COPD s/p BL lung transplant (11/2018; immunosuppressed with Tacrolimus, Mycophenolate, Prednisone), CAD, HTN, chronic back pain who presented as transfer from [facility] for AMS, respiratory distress and seizure like activity. Psychiatry consulted due to assistance with behavioral changes. reports ongoing personality changes for many months. Patient does reports some stressors causing depressive symptoms which could explain his irritability, behavioral changes which may benefit from antidepressants. Would also consider underlying cognitive process developing resulting in personality changes as well as other medical causes such as medication toxicity. RECOMMENDATIONS Diagnostic Workup: - Appreciate work-up for cognitive processes Medications - Recommend Citalopram 10 mg daily to assist with depressive symptoms - Continue monitoring tacrolimus levels to reduce risk of neurotoxicity Consultations/Referrals/Follow-Up: - No indication for involuntary psychiatric admission at this time - Recommend neuropsychological testing outpatient to evaluate for underlying cognitive concerns (patient prefers referral to local [facility] providers) - resources for outpatient f/u for medication management/counseling (anger management) if patient is in favor of this The psychiatry consultation team is available for questions M-F 8a-5p at [phone]. The on-call residential sales can be reached outside these hours at the same pager number [phone]. Case staffed with attending psychiatrist, Dr. Richardson. Thank you for allowing us to participate in the care of this patient. We will continue to follow. Nick Dominguez MD PGY4 ATTENDING ATTESTATION I saw and examined Nick Hernández on 05/20/[address] Nick Dominguez MD. I discussed the findings and therapeutic plan with Dr. Dominguez. I agree with the history, examination, and medical decision making as documented. I have edited the above report as needed to reflect my findings. Nick Hernández and his reported personality changes over the last 5 months including increased irritability (episodes of road rage including following people for long distances in anger, chasing thieves through his neighborhood barefoot and in his underwear, alienating himself from friends and neighbors due to arguments), forgetfulness, changes in preferences (new tastes in food). He expressed insight into his change in personality and its impact on his relationships. He also reported depressed mood but no suicidal ideation. We counseled Mr. Hernández and his on possibility of depression versus a neurocognitive disorder (consider frontotemporal dementia). He will need further outpatient cognitive workup. Start Celexa to treat depression component. Recommend outpatient counseling as well. Counseled patient to avoid driving and handling firearms pending further workup and management of his personality change and patient agreed. I personally reviewed data including but not limited to the following: Imaging - CT Head with no acute intracranial findings. I independently reviewed the images. EKG - 05/16/2023 tracing reviewed: NSR (66 BPM). QTc 423 ms. EEG - EEG report disclosed moderate to severe slowing which improved to mild diffuse slowing at end of study. Labs - Chemistries normal. Tacro level 4.2. CBC with anemia. TSH normal. LFTs unremarkable. Collateral information - Obtained from . Modesto Richardson MD [employer] Consultation-Liaison Psychiatry Images from the original note were not included. LUNG TRANSPLANT CONSULT NOTE Referring provider: Sanam Bowles Nadia Hernández is a 63 y.o. male s/p lung transplantation. IMPRESSION AND RECOMMENDATIONS Drug Levels Lab Results Component Value Date TACROLIMUS 16.2 (H) 02/26/2021 TACROLIMUS 16.2 (H) 12/06/2019 TACROLIMUS 9.0 09/10/2019 Lab Results Component Value Date TACROTRGHMAN 5.4 03/22/2023 TACROTRGHMAN 5.0 02/22/2023 TACROTRGHMAN 5.4 01/24/2023 Transplant Bilateral lung transplant (12/11/18) for COPD (Dr. Reyna) Allograft function: declining - Reference FEV1 = 2.88 L (reset due to weight gain 01/31/20); 80% = 2.30 Immunosuppression, high risk meds, therapeutic drug monitoring PLAN: - Tacrolimus: Goal trough: 4-6; - Mycophenolate: 1000mg bid - Prednisone: 5 mg daily - TITUS Prophylaxis: azithromycin Respiratory Intubated for airway protection PLAN: - MV per ICU team ID CMV D-/R- EBV D+/R+ Vaccinations Influenza: Jul 2021 per patient PCV13: 7/24/18 COVID-19: 01/09/21, 02/06/21 (Moderna); 10/16/21; 08/13/22 PLAN: Empiric antibiotics PPSV23 due Prophylaxis: - Bactrim 1 DS QMWF CV CAD, diffuse HTN PLAN: - ASA, Coreg, Norvasc Renal / Mg wasting due to CNI PLAN: - Monitor BUN/Cr - Mg supplementation GI GERD PLAN: - PPI Heme Anemia PLAN: - Monitor CBC Endocrine Osteoporosis Prediabetes PLAN: - Ca / Vit D - sitagliptin Musculoskeletal / Skin PLAN: - Maintain activity level - Annual dermatologic evaluation Neuro/Psych Admitted with encephalopathy of undetermined etiology. PLAN: - Evaluation per neuro and ICU team. MRI, LP and cEEG - On gabapentin Colonoscopy and Bone densitometer due outpatient POST TRANSPLANT HISTORY - planned Bilateral lung transplantation (12/11/18) for COPD (Dr. Reyna) - Induction with Basiliximab on Day 0 and 4 - PGD @ T24: 0 - PGD @ T48: 0 - PGD @ T72: 0 - Graft function - Reference FEV1 = 2.88 L (reset due to weight gain 01/31/20); 80% = 2.30 - Status - ABO O positive - CMV: Donor NEG Recipient NEG - EBV: Donor POS Recipient POS - Infection: - Donor cultures: S aureus, C albicans - Recipient cultures: S pseudointermedius - 12/12/18 BAL: Metapneumovirus - Ribavirin + prednisone taper - 12/26/18 BAL: Metapneumovirus - Ribavirin + prednisone taper - 03/13/19 BW: S epidermidis, S lugunensis - 04/10/19 BAL: E cloacae - 02/04/21 Thigh bx: Herpesvirus - valacyclovir x 7 days - Transbronchial biopsies: - 02/06/19: A0B0. BALT hyperplasia - 03/13/19: A0B1, aspirated vegetable material - 03/13/19 EBBx: granulation tissue/inflammatory polyp - 04/10/19 EBBx: exuberant granulation tissue with suppurative inflammation - 05/22/19: A0Bx - 07/17/19 EBBx: granulation tissue - 09/03/19 TBBx: A0Bx, focal stenosis (ISHLT stenosis c, c). 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); asymptomatic - Nephrolithiasis s/p lithotripsy - Airway issues: benign growth (granulation tissue), focal moderate BI stenosis (ISHLT stenosis c,c) - - Severe R hip arthritis s/p R COTY (03/06/20) - Lumbar compression fractures s/p vertebroplasties - H/o Bronchial granulation tissue requiring repeat excision; RBI stenosis (ISHLT c, c) - Erectile Dysfunction - 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 Taken to OSH for agitation and confusion. He became unresponsive at arrival to the ED and per report demonstrated seizure like activity. He was intubated and received Keppra load and Propofol and Versed gtt along with the Fentanyl gtt. He was transferred to [facility] ICU for further management. At OSH Procal 0.06. Troponin < 0.012. Urinalysis unremarkable. At the OSH, bronch and BAL were performed, with BAL and LRCx studies pending. RVP and MRSA nares reportedly negative. LP obtained, glucose 62, protein 83, CSF studies pending. MRI Brain obtained, significant for diminished cerebral volume and evidence of chronic white matter small vessel ischemic change. Per pt's over the past 1-2 years patient's behavior has been angry and more erratic. Per lung mail service coordinator notes this has been going on longer. The describes his changes as him getting more angry and forgetful. 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 Earlier on day of admission to [facility] ([facility]) the noticed he was acting himself, but after climbing out of the well and started having SOB and became agitated and altered. . REVIEW OF SYSTEMS All other systems reviewed and are negative for pertinent findings except as mentioned in the HPI/Interval History. MEDICATIONS AND ALLERGIES Current Outpatient Medications Medication Sig Last Dose Start Date End Date Authorizing Provider acetaminophen 325 MG tablet Take 2 tablets by mouth every 6 hours as needed for mild or moderate pain. 05/03/22 Nick Lopez MD Alcohol Swabs 70 % Pads 1 Each, Unknown, 2 TIMES DAILY 04/29/22 Akbar Davis DO alendronate 70 MG tablet 70 mg, Oral, EVERY 7 DAYS 07/01/22 Akbar Davis DO amLODIPine 5 MG tablet 5 mg, Oral, DAILY 07/30/22 Nick Lopez MD aspirin (RA Aspirin Adult Low Dose) 81 MG Chew Tab chewable tablet 81 mg, Oral, DAILY 09/12/22 Nick Lopez MD azithromycin 250 MG tablet 250 mg, Oral, EVERY M, W & F 09/15/22 09/15/27 Stephania De León, INTERIOR H[employer]ICULTURIST[employer]ISH[employer] Calcium Citrate-Vitamin D 315-200 MG-UNIT tablet 1 tablet, Oral, EVERY 12 HOURS 07/01/22 Akbar Davis DO carveDILOL 25 MG tablet 25 mg, Oral, 2 TIMES DAILY 03/17/23 Nick Lopez MD ergocalciferol 1.25 MG (36840 UT) capsule 50,000 Units, Oral, WEEKLY 07/01/22 Akbar Davis DO Gabapentin 400 MG capsule TAKE 1 CAPSULE BY MOUTH EVERY MORNING, TAKE 2 CAPSULES BY MOUTH EVERY AFTERNOON and TAKE 1 CAPSULE BY MOUTH EVERY EVENING 10/28/22 04/27/23 Nick Lopez MD glucose blood test strips (OneTouch Ultra) Strip strip 400 strips, Instructed, 2 TIMES DAILY 04/29/22 Akbar Davis, Lancets Misc 1 Each, Unknown, 2 TIMES DAILY 12/22/22 Christelle Espino MD magnesium oxide 400 MG tablet 800 mg, Oral, EVERY 12 HOURS 07/07/22 Nick Lopez MD multivitamin (multivitamin) tablet 1 tablet, Oral, DAILY 07/01/22 Akbar Davis DO mycophenolate mofetil (CELLCEPT) 250 MG capsule 1,000 mg, Oral, EVERY 12 HOURS 06/02/22 Nick Lopez MD oxybutynin CR 10 MG Tab SR 24 HR tablet 10 mg, Oral, DAILY 04/23/22 Historical Provider pantoprazole [address] DR 40 mg, Oral, 2 TIMES DAILY 07/30/22 Nick Lopez MD predniSONE 5 MG tablet 5 mg, Oral, DAILY 03/04/23 Nick Lopez MD Rosuvastatin 10 MG tablet 10 mg, Oral, DAILY 03/17/23 Nick Lopez MD SITagliptin (Januvia) 100 MG tablet 100 mg, Oral, DAILY 07/01/22 Akbar Davis DO sulfamethoxazole-trimethoprim 800-160 MG per tablet 1 tablet, Oral, THREE TIMES WEEKLY 09/13/22 09/13/27 Nick Lopez MD tacrolimus (PROGRAF) 0.5 MG capsule Take 1 capsule by mouth daily every morning AND 1 capsule every evening. 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 Added automatically from request for surgery [id number] Social History Socioeconomic History Marital status: Highest education level: Not on file Tobacco Use Smoking status: Former Packs/day: 1.50 Years: 30.00 Total pack years: 45.00 Types: Cigarettes Quit date: 11/2015 Years since quittin.5 Smokeless tobacco: Never Vaping Use Family History Problem Relation Age of Onset Heart Failure Mother Myocardial Infarction Father Other - Specify Brother Polio Stroke Sister Emphysema Sister PHYSICAL EXAM BP 146/74 Pulse 59 Temp 98.8 F (37.1 C) Resp 18 Ht 1.829 m (6') Wt 92.4 kg (203 lb 11.3 oz) SpO2 97% BMI 27.63 kg/m Smoking Status Former Body mass index is 27.63 kg/m . Wt Readings from Last 3 Encounters: 05/16/23 92.4 kg (203 lb 11.3 oz) 05/09/23 95.6 kg (210 lb 11.2 oz) 11/08/22 99.1 kg (218 lb 8 oz) GENERAL: Well-developed male. Intubated, sedated HEENT: Pupils equal, round. NECK: Neck supple. No lymphadenopathy. No thyromegaly. No stridor. CARDIOVASCULAR: Regular rate and regular rhythm. No murmurs, rubs or gallops. Normal S1 and S2. PULMONARY: . No wheezing, rhonchi or rales. GASTROINTESTINAL: Soft, non-tender, non-distended. Bowel sounds present. MUSCULOSKELETAL: No cyanosis, clubbing. No joint effusions or erythema. SKIN: Warm and dry. No jaundice or rash. Trace edema NEUROLOGIC: intubated. Perrla. sedated PSYCHIATRIC: cannot assess DATA REVIEW CBC Lab Results Component Value Date WBC 5.53 05/17/2023 HGB 12.3 (L) 05/17/2023 HCT 38.0 (L) 05/17/2023 PLATELET 158 05/17/2023 MCV 90.7 05/17/2023 CMP Lab Results Component Value Date SODIUM 139 05/17/2023 POTASSIUM 4.4 05/17/2023 CHLORIDE 110 (H) 05/17/2023 CO2 19 (L) 05/17/2023 BUN 7 05/17/2023 CREATSERUM 0.76 05/17/2023 GLUCOSE 158 (H) 05/17/2023 Lab Results Component Value Date ALT 15 05/16/2023 AST 19 05/16/2023 GGT 29 03/22/2023 ALKPHOS 48 05/16/2023 BILITOTAL 0.4 05/16/2023 BILIDIRECT 0.1 05/16/2023 Lab Results Component Value Date CMVPCR Not detected 03/22/2023 Imaging/Radiological Studies I have personally reviewed and interpreted the radiographic data in IS. PFT Results 01/28/2021 12:00 04/01/2021 12:00 04/29/2021 12:00 05/27/2021 12:00 06/29/2021 11:00 PFT Results FVC-Pre 3.84 Liters FVC 4.38 4.07 4.33 4.5 FVC % Pred, % Ref 85 79 84 88 FVC-%Pred-Pre 83 % FEV1-Pre 2.36 Liters FEV1 Pre Liters 2.6 2.44 2.66 2.57 FEV1 % Pred % Ref 66 63 68 66 FEV1-%Pred-Pre 67 % FEV1/FVC-Pre 61 % FEV1/FVC % Ref 59 60 61 57 [id number] 0.99 L/sec FEF 25-75% 1.21 % 1.03 % 1.16 % 0.93 % TLCPleth-Pre 5.98 Liters RVPleth-Pre 1.84 Liters DLCOunc-Pre 25.27 mL/mmHg/min DLCOunc-%Pred-Pre 89 % DLCOcor-%Pred-Pre 93 % 07/29/2021 12:00 09/21/2021 12:00 10/29/2021 12/01/2021 12:00 12/28/2021 12:00 PFT Results FVC-Pre 4.47 Liters FVC 4.23 4.08 4.43 3.96 FVC % Pred, % Ref 82 79 86 77 FVC-%Pred-Pre 96 % FEV1-Pre 2.81 Liters FEV1 Pre Liters 2.6 2.55 2.77 2.46 FEV1 % Pred % Ref 67 65 71 63 FEV1-%Pred-Pre 79 % FEV1/FVC-Pre 63 % FEV1/FVC % Ref 62 63 82 62 [id number] 1.49 L/sec FEF 25-75% 1.12 % 1.22 % 1.32 % 1.11 % TLCPleth-Pre 5.7 Liters RVPleth-Pre 1.6 Liters DLCOunc-Pre 23.55 mL/mmHg/min DLCOunc-%Pred-Pre 83 % DLCOcor-%Pred-Pre 80 % 01/28/2022 12:00 03/30/2022 12:00 05/03/2022 15:00 05/31/2022 12:00 07/01/2022 12:00 PFT Results FVC-Pre 4.15 Liters FVC 4.31 3.69 4.22 4.43 FVC % Pred, % Ref 84 72 82 87 FVC-%Pred-Pre 90 % FEV1-Pre 2.65 Liters FEV1 Pre Liters 2.77 2.09 2.52 2.74 FEV1 % Pred % Ref 71 54 65 71 FEV1-%Pred-Pre 76 % FEV1/FVC-Pre 64 % FEV1/FVC % Ref 64 57 60 62 [id number] 1.37 L/sec FEF 25-75% 1.46 % 0.65 % 1.07 % 1.25 % TLCPleth-Pre RVPleth-Pre DLCOunc-Pre DLCOunc-%Pred-Pre DLCOcor-%Pred-Pre 07/30/2022 12:00 08/30/2022 12:00 09/29/2022 12:00 11/08/2022 13:32 11/29/2022 12:00 PFT Results FVC-Pre 3.9 Liters 3.9 Liters FVC 4.1 4.05 3.85 3.78 FVC % Pred, % Ref 80 79 75 77 FVC-%Pred-Pre 84 % 84 % FEV1-Pre 2.68 Liters 2.68 Liters FEV1 Pre Liters 2.68 2.5 2.33 2.36 FEV1 % Pred % Ref 69 65 60 62 FEV1-%Pred-Pre 76 % 76 % FEV1/FVC-Pre 69 % 69 % FEV1/FVC % Ref 65 62 60 62 [id number] 1.73 L/sec 1.73 L/sec FEF 25-75% 1.2 % 1.07 % 1.03 % TLCPleth-Pre 5.32 Liters 5.32 Liters RVPleth-Pre 1.33 Liters 1.33 Liters DLCOunc-Pre 25.61 mL/mmHg/min 25.61 mL/mmHg/min DLCOunc-%Pred-Pre 91 % 91 % DLCOcor-%Pred-Pre 89 % 89 % 12/27/2022 12:00 01/24/2023 12:00 02/28/2023 12:00 03/28/2023 12:00 05/09/2023 13:23 PFT Results FVC-Pre 3.68 Liters FVC 3.9 3.63 3.56 3.98 FVC % Pred, % Ref 79 71 70 78 FVC-%Pred-Pre 80 % FEV1-Pre 2.41 Liters FEV1 Pre Liters 2.41 2.32 2.22 2.46 FEV1 % Pred % Ref 64 60 57 64 FEV1-%Pred-Pre 69 % FEV1/FVC-Pre 65 % FEV1/FVC % Ref 62 64 62 62 [id number] 1.31 L/sec FEF 25-75% 1.08 % 1.04 % 1.16 % TLCPleth-Pre 5.54 Liters RVPleth-Pre 1.61 Liters DLCOunc-Pre 23.94 mL/mmHg/min DLCOunc-%Pred-Pre 86 % DLCOcor-%Pred-Pre 87 % Details More values are hidden. Newest values shown. Go to activity for more data. PULMONARY CXR - 05/09/23 IMPRESSION: Status post bilateral lung transplant. Chronic right lower lobe volume loss/atelectasis. No acute cardiopulmonary disease. CT Chest - 11/08/22 10/29/2021 Pending official read - appears stable No definite change from the previous study. Chronic elevation of the right hemidiaphragm with some volume loss and scarring in the right lung base remains, but the transplant lungs are otherwise clear. Irregularity of the bronchus intermedius appears unchanged. No definite air trapping is seen at this time, though the difference is likely a consequence of poor depth of expiration, particularly when compared to the prior study. 6MWT 02/26/21: 1598 feet (487 meters), lowest SpO2 97%, oxygen requirement: Room air 02/22/19: 1591 feet (485 meters), lowest SpO2 99%, oxygen requirement: Room air 09/28/18 (pre-tx): 984 feet (300 meters), lowest SpO2 95%, oxygen requirement: 3 LPM CARDIOLOGY TTE - 10/29/21 Left Ventricle: Chamber size is normal. Normal wall thickness. Normal global wall motion. Regional wall motion is normal. Ejection fraction is normal (60 - 65%). Diastolic function is normal. Left Atrium: Chamber size is moderately enlarged. Mitral Valve: Normal appearing leaflets. Leaflet mobility is normal. Trace regurgitation. No valve stenosis. Tricuspid Valve: Normal leaflets. Leaflet mobility is normal. Trace regurgitation. No stenosis. No echo/Doppler evidence for pulmonary hypertension. 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 There has been improvement of bone density since the previous examination. Colonoscopy - 06/21/2018 1. Cecum: Normal appearance no mass lesions normal IIeocecal valve. 2. Ascendlng colon. Normal appearance no mass lesions. 3. Transverse colon: Normal appearance. 2 polyps were identified. One was removed with biopsy forceps completely. The other was removed removed with snare cautery technique. Both of them were brought back to the channel of the scope. 4. Descending colon: Small polyp was identlfled was removed with snare cautery technique and brought back to the channel the scope. 5. Sigmold colon: Normal appearance minlmal dlverticular disease seen. 6. Rectum: Normal appearance no mass lesIons Internal hemorrholds were Identifled. Scope was withdrawn digital rectal exam showed no masses within the anus and a normal prostate smooth and small. Patlent will need to have another colonoscopy In 3 years. MICROSCOPIC DIAGNOSIS Transverse colon polyps, biopsy: Fragments of tubular adenoma. Fragments of fecal material. PSA - 02/26/21 2.03 Christelle Espino MD Division of Pulmonary, Critical Care & Sleep Medicine Department of Internal Medicine [facility] Associated Order(s): IP CONSULT TO NEUROLOGY Images from the original note were not included. NEUROLOGY CONSULTATION NOTE Reason for consultation: 63 y/o M, transfer from OSH, c/f seizure activity, loaded with keppra at OSH, burst suppression on OSH EEG. Appreciate recs for ongoing antiepileptic mgmt and EEG here. History of present illness: Nick Hernández is a 63 y.o.male with history of COPD s/p BL lung transplant (11/2018; immunosuppressed with Tacrolimus, Mycophenolate, Prednisone), CAD, HTN, chronic back pain who presented as transfer from [facility] for AMS, respiratory distress and seizure like activity. 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 Had been having personality changes (angry and forgetful) for past 3 months. On 05/05 had SOB and was agitated for which his contacted transplant team and was advised for ED visit if similar presentation again. In the meanwhile he was seen by transplant team at outpatient. On 05/15 was driving patient to the hospital and while on the way pt became agitated followed by unresponsiveness requiring BVM. On being more alert he complained of back pain between shoulder blades and loss of sensation in legs. On arrival to ER, he was noted to have seizure like activity twice and was intubated for airway protection. Seizure semiology is not described in the chart. He was started on cEEG and received keppra load (4.5g 2015 05/15/23) was also started on Propofol, Versed, and Fentanyl gtt. cEEG so far did not show any epileptiform activity other than burst suppression. CT C/A/P showed some atelectasis vs infiltrate in the RLL and no other acute changes. On admission to MICU at OSH his antimicrobial coverage was changed from Vanc, Zosyn, and Acyclovir to Meropenem and azithromycin. He had bronchoscopy there. LP was done under fluoroscopy guidance. 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 He has several exposures to farm animals, frequent consumer of cured meats, but no known history of consuming unpasteurized dairy products, no known sick contacts. No recent rashes. Of note, during the lung transplant, EBV was donor and recipient positive, CMV donor and recipient negative. Medical History Review of Systems: The patient was too encephalopathic to obtain accurate review of systems. 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 [place] BRONCHOSCOPY FLEXIBLE W/ TRACHEAL BRONCHIAL DILATION AND/OR STENT PLAC N/A 04/02/2020 Laterality: N/A; [facility]; Location: [facility] [place] HIP SURGERY Right 03/06/2020 BRONCHOSCOPY W/ TRANSBRONCHIAL BX SINGLE LOBE Bilateral 12/11/2019 Laterality: Bilateral; Surgeon: Akbar Davis DO; Location: [facility]OSCOPY [place] BRONCHOSCOPY W/ TUMOR DESTRUCTION OR STENOSIS RELIEF Bilateral 12/11/2019 Laterality: Bilateral; Surgeon: Duke Reyes MD; Location: [facility] [place] BRONCHOSCOPY W/ TUMOR DESTRUCTION OR STENOSIS RELIEF Bilateral 09/04/2019 Laterality: Bilateral; Surgeon: Akbar Davis DO; Location: [facility]OS[facility] [place] BRONCHOSCOPY W/ TUMOR DESTRUCTION OR STENOSIS RELIEF Bilateral 07/17/2019 Laterality: Bilateral; Surgeon: Nick Lopez MD; Location: [facility]OS[facility] [place] BRONCHOSCOPY W/ TUMOR DESTRUCTION OR STENOSIS RELIEF Right 05/22/2019 Laterality: Right; Surgeon: Josie Pyle DO; Location: [facility]OSCOPY [place] BRONCHOSCOPY FLEXIBLE W/ TRACHEAL BRONCHIAL DILATION AND/OR STENT PLAC Right 05/22/2019 Laterality: Right; Surgeon: Josie Pyle DO; Location: [facility]OSCOPY [place] BRONCHOSCOPY W/ TUMOR DESTRUCTION OR STENOSIS RELIEF Bilateral 04/10/2019 Laterality: Bilateral; Surgeon: Matthew Davila MD, PhD; Location: [facility]OS[facility] [place] BRONCHOSCOPY W/ TRANSBRONCHIAL BX SINGLE LOBE Bilateral 03/13/2019 Laterality: Bilateral; Surgeon: Matthew Davila MD, PhD; Location: [facility] [place] BRONCHOSCOPY W/ TRANSBRONCHIAL BX SINGLE LOBE N/A 02/06/2019 Laterality: N/A; Surgeon: Matthew Davila MD, PhD; Location: [facility]OSCOPY [place] BRONCHOSCOPY FLEXIBLE W/ BRONCHIAL ALVEOLAR LAVAGE Bilateral 12/26/2018 Laterality: Bilateral; Surgeon: Nick Lopez MD; Location: [facility] BRONCHOSCOPY TRANSPLANT LUNG DOUBLE W/ BYPASS Bilateral 12/11/2018 Laterality: Bilateral; Surgeon: James Reyna MD, PhD, MPH; Location: [facility] MAIN OR ORIF WRIST TONSILLECTOMY VERTEBROPLASTY PERCUTANEOUS LUMBAR SINGLE VERTEBRAL BODY Family History Problem Relation Age of Onset Heart Failure Mother Myocardial Infarction Father Other - Specify Brother Polio Stroke Sister Emphysema Sister Social History Socioeconomic History Marital status: Spouse name: Not on file Number of children: Not on file Years of education: Not on file Highest education level: Not on file Occupational History Not on file Tobacco Use Smoking status: Former Packs/day: 1.50 Years: 30.00 Total pack years: 45.00 Types: Cigarettes Quit date: 11/2015 Years since quittin.5 Smokeless tobacco: Never Vaping Use Vaping Use: Never used Substance and Sexual Activity Alcohol use: No Comment: Past use with history of DUI Drug use: No Sexual activity: Not on file Other Topics Concern Not on file Social History Narrative Not on file Social Determinants of Health Financial Resource Strain: Not on file Food Insecurity: Not on file Transportation Needs: Not on file Physical Activity: Not on file Stress: Not on file Social Connections: Not on file Intimate Partner Violence: Not on file Housing Stability: Not on file Allergies Allergen Reactions Breo Ellipta [Fluticasone Furoate-Vilanterol] Shortness of Breath Codeine Hives Medications Prior to Admission Medication Sig Dispense Refill Last Dose acetaminophen 325 MG tablet Take 2 tablets by mouth every 6 hours as needed for mild or moderate pain. 100 tablet 5 Alcohol Swabs 70 % Pads 1 Each by Unknown route 2 times daily. 100 Each 11 alendronate 70 MG tablet Take 1 tablet by mouth every 7 days. 12 tablet 3 amLODIPine 5 MG tablet Take 1 tablet by mouth daily. 90 tablet 3 aspirin (RA Aspirin Adult Low Dose) 81 MG Chew Tab chewable tablet Chew 1 tablet daily. 90 tablet 3 azithromycin 250 MG tablet Take 1 tablet by mouth every Tuesday, Tuesday and Tuesday. 36 tablet 3 Calcium Citrate-Vitamin D 315-200 MG-UNIT tablet Take 1 tablet by mouth every 12 hours. 180 tablet 3 carveDILOL 25 MG tablet Take 1 tablet by mouth 2 times daily. 180 tablet 3 ergocalciferol 1.25 MG (83969 UT) capsule Take 1 capsule by mouth once a week. 12 capsule 3 Gabapentin 400 MG capsule TAKE 1 CAPSULE BY MOUTH EVERY MORNING, TAKE 2 CAPSULES BY MOUTH EVERY AFTERNOON and TAKE 1 CAPSULE BY MOUTH EVERY EVENING 120 capsule 5 glucose blood test strips (FilmTrackTouch Ultra) Strip strip 400 strips by Instructed route 2 times daily. 400 strip 11 Lancets Misc 1 Each by Unknown route 2 times daily. 100 Each 1 magnesium oxide 400 MG tablet Take 2 tablets by mouth every 12 hours. 360 tablet 3 multivitamin (multivitamin) tablet Take 1 tablet by mouth daily. 90 tablet 3 mycophenolate mofetil (CELLCEPT) 250 MG capsule Take 4 capsules by mouth every 12 hours. 720 capsule 3 oxybutynin CR 10 MG Tab SR 24 HR tablet Take 1 tablet by mouth daily. pantoprazole [address] tablet DR Take 1 tablet by mouth 2 times daily. 180 tablet 3 predniSONE 5 MG tablet take 1 tablet by mouth daily 90 tablet 3 Rosuvastatin 10 MG tablet Take 1 tablet by mouth daily. 90 tablet 3 SITagliptin (Januvia) 100 MG tablet Take 1 tablet by mouth daily. 90 tablet 3 sulfamethoxazole-trimethoprim 800-160 MG per tablet Take 1 tablet by mouth three times a week. 36 tablet 3 tacrolimus (PROGRAF) 0.5 MG capsule Take 1 capsule by mouth daily every morning AND 1 capsule every evening. 180 capsule 3 Current Medications Current Facility-Administered Medications Medication Dose Route Frequency Provider Last Rate Last Admin Acyclovir (ZOVIRAX) 900 mg in Sodium chloride 0.9%, with overfill 293 mL (total volume) IVPB 10 mg/kg (Dosing Weight) Intravenous Q8H Gerardo Leslie MD 293 mL/hr at 05/16/23 2253 900 mg at 05/16/23 2253 Ampicillin (OMNIPEN) 2 g in sodium chloride 0.9% (MB PLUS) 100 mL (total volume) IVPB 2 g Intravenous Q4H Gerardo Leslie MD 200 mL/hr at 05/17/23 0202 2 g at 05/17/23 0202 Azithromycin (ZITHROMAX) tablet 250 mg 250 mg Oral Q MWF Jesika Ireland MD chlorhexidine (PERIDEX) 0.12 % oral solution 15 mL 15 mL Mucous Membrane Q12H Jesika Ireland MD 15 mL at 05/16/23 2140 dexAMETHasone PF (DECADRON) injection 10 mg 10 mg Intravenous Q6HNS Gerardo Leslie MD 10 mg at 05/16/23 2245 Enoxaparin Sodium (LOVENOX) injection 40 mg 40 mg Subcutaneous Q24H Camilla Martin, [facility] Lactated ringers IV solution Intravenous Continuous Gerardo Leslie MD 100 mL/hr at 05/16/23 2252 New Bag at 05/16/23 225 Magnesium sulfate 4 g in sterile water 50 ml premix IVPB 4 g Intravenous As directed PRN Jesika Ireland MD Meropenem (MERREM) 2 g in Sodium chloride 0.9%, with overfill 110 mL (total volume) IVPB 2 g Intravenous Q8HNS Camilla Martin, [facility] 36.7 mL/hr at 05/16/23 2246 2 g at 05/16/23 2246 Multi-Vitamins tablet 1 tablet 1 tablet Oral Daily Jesika Ireland MD Pantoprazole (PROTONIX) tablet DR 40 mg 40 mg Oral BID Jesika Ireland MD 40 mg at 05/16/232244 Potassium chloride 20 mEq in sterile water 50 ml premix IVPB 20 mEq Intravenous As directed PRN Jesika Ireland MD Or Potassium chloride (K-DUR) tablet ER 20 mEq 20 mEq Oral As directed PRN Jesika Ireland MD Or Potassium Bicarb-Citric Acid (Effer-K) 20 MEQ effervescent tablets for oral solution 20 mEq 20 mEq Per NG tube As directed PRN Jesika Ireland MD Or Potassium chloride 10 mEq in sterile water 100 ml premix IVPB 10 mEq Intravenous As directed PRN Jesika Ireland MD predniSONE (DELTASONE) tablet 5 mg 5 mg Oral Daily Jesika Ireland MD Propofol (DIPRIVAN) 1000 MG/100ML premix infusion 0-50 mcg/kg/min (Dosing Weight) Intravenous Continuous Jesika Ireland MD 27.7 mL/hr at 05/16/23 2329 50 mcg/kg/min at 05/16/23 232 Sodium chloride 0.9% IV solution 250 mL 250 mL Intravenous PRN Jesika Ireland MD 20 mL/hr at 05/16/232123 250 mL at 05/16/232123 sodium phosphate 30 mmol in Sodium chloride 0.9%, with overfill 285 mL (total volume) IVPB 30 mmol Intravenous As directed PRN Jesika Ireland MD Or sodium phosphate 45 mmol in Sodium chloride 0.9%, with overfill 290 mL (total volume) IVPB 45 mmol Intravenous As directed PRN Jesika Ireland MD [START ON 05/18/2023] Sulfamethoxazole-trimethoprim (BACTRIM DS) 800-160 MG per tablet 1 tablet 1 tablet Oral Once per day on Tue Jesika Ireland MD Physical Examination Temp: [98.2 F (36.8 C)-99 F (37.2 C)] 98.4 F (36.9 C) Pulse (Heart Rate): [67-88] 86 Resp Rate: [18-29] 23 BP: (99-156)/(57-82) 156/80 O2 Sat (%): [98 %-100 %] 98 % Weight: [92.4 kg (203 lb 11.3 oz)] 92.4 kg (203 lb 11.3 oz) Body mass index is 27.63 kg/m . General: Intubated, sedation held for exam HENT: Intubated. Normal external appearance of ears and nose. CV/Chest: Equal chest raising. No audible wheezing. RRR. Abdomen: Non-distended. Extremities: No appreciable cyanosis, deformity, or lower extremity edema. Skin: No rash or bruises Neurological Exam: sedation held for exam Cognition: Drowsy, Eyes are closed, opens to loud voice and simultaneous tactile stimulation. Does make eye contact intermittently and partially tracks . Language: Does not follow verbal commands (open/close eyes, squeeze hands) Cranial Nerves:Blink to threat +ve on right eye but not left. Eyes are midline. Pupils are 3mm equal and reactive to light, corneal reflexes are preserved. Cough and gag are preserved. Face appears grossly symmetric Motor/Sensory: moving all extremities spontaneously/semipurposeful, withdraws to pain in all extremities Reflexes: Triceps Biceps Brachioradialis Patellar Achilles Babinski Right 2 2 2 2 1 down Left 2 2 2 2 1 down Coordination: Unable to assess to condition Gait: Unable to assess to condition Stroke Assessment: 05/17/2023 Diagnostic Data Laboratory data: UDS postive for benzo, fentanyl, opiates, and cannabinoids CBC with WBC 6.74, Hb 12.1, plt 152 BMP with CO2 18, otherwise okay LFT okay procal 0.06 TSH 0.567 PT/INR 14.1/1.1 Mg 1.9 phos 2.3 CK 94 Lactate 1.0 Ammonia 32 folate 30.85 B12 630 Tacrolimus level 3.8- goal as per transplant team 4-6 Imaging: CT HEAD WO IV CONTRAST at OSH - Impression - 1. No acute intracranial findings. 2. Chronic ischemic changes suspected. CTA Chest Abdomen Pelvis (05/15/23) at OSH IMPRESSION: 1. No acute process. No evidence of an intramural hematoma, dissection or aneurysm. 2. Patchy airspaces opacities near the lung bases, which could relate to atelectasis versus developing pneumonia in the appropriate clinical setting. 3. Small nodular density in the left hemipelvis, presumed to relate to a lymph node. Attention on follow-up studies is recommended. 4. Additional chronic findings as above, including varying degrees of vascular stenosis (severe near the left internal iliac artery origin). MRI brain wo contrast at OSH: IMPRESSION: 1. Diminished cerebral volume and evidence of chronic white matter small vessel ischemic change without acute intracranial abnormality. 2. Paranasal sinus disease. 3. Small bilateral mastoid effusions. Diagnostic procedures: cEEG at OSH on 05/16/23: This continuous EEG with video is abnormal. A persistent generalized burst-attenuation pattern is seen as evidenced by brief generalized bursts of fast activity intermixed with brief intervals of generalized attenuation. No clearcut epileptiform activity nor seizures are seen. The findings are consistent with a aurrruly-yi-xfsdry global encephalopathy nonspecific as to etiology and confounded by sedation. CSF lumbar puncture, clear CSF CSF Glucose 62/ Protein 83 , WBC 2, RBC 28 Meningitis/Encephalitis PCR Panel (includes HSV PCR and VSV PCR) (05/16/2023 4:47 PM EDT) Lab Results - Meningitis/Encephalitis PCR Panel (includes HSV PCR and VSV PCR) (05/16/2023 4:47 PM EDT) Escherichia coli K1 Not Detected Not Detected [facility] 05/16/2023 7:46 PM EDT [facility] Haemophilus influenzae Not Detected Not Detected [facility] 05/16/2023 7:46 PM EDT [facility] Listeria monocytogenes Not Detected Not Detected [facility] 05/16/2023 7:46 PM EDT [facility] Neisseria meningitidis Not Detected Not Detected [facility] 05/16/2023 7:46 PM EDT [facility] Streptococcus agalactiae Not Detected Not Detected [facility] 05/16/2023 7:46 PM EDT [facility] Streptococcus pneumoniae Not Detected Not Detected [facility] 05/16/2023 7:46 PM EDT [facility] Cytomegalovirus Not Detected Not Detected [facility] 05/16/2023 7:46 PM EDT [facility] Enterovirus Not Detected Not Detected [facility] 05/16/2023 7:46 PM EDT [facility] Herpes simplex virus 1 Not Detected Not Detected [facility] 05/16/2023 7:46 PM EDT [facility] Herpes simplex virus 2 Not Detected Not Detected [facility] 05/16/2023 7:46 PM EDT [facility] Human herpesvirus 6 Not Detected Not Detected [facility] 05/16/2023 7:46 PM EDT [facility] Human parechovirus Not Detected Not Detected [facility] 05/16/2023 7:46 PM EDT [facility] Varicella zoster virus Not Detected Not Detected [facility] 05/16/2023 7:46 PM EDT [facility] Cryptococcus neoformans/gattii Not Detected Not Detected [facility] 05/16/2023 7:46 PM EDT [facility] Pneumonia PCR Panel (05/16/2023 12:28 AM EDT) Lab Results - Pneumonia PCR Panel (05/16/2023 12:28 AM EDT) [facility] Staphylococcus aureus Not Detected Not Detected [facility] 05/16/2023 5:20 AM EDT [facility] Streptococcus agalactiae Not Detected Not Detected [facility] 05/16/2023 5:20 AM EDT [facility] Streptococcus pneumoniae Not Detected Not Detected [facility] 05/16/2023 5:20 AM EDT [facility] Streptococcus pyogenes Not Detected Not Detected [facility] 05/16/2023 5:20 AM EDT [facility] Haemophilus influenzae Not Detected Not Detected [facility] 05/16/2023 5:20 AM EDT [facility] Moraxella catarrhalis Not Detected Not Detected [facility] 05/16/2023 5:20 AM EDT [facility] Acinetobacter baumannii complex Not Detected Not Detected [facility] 05/16/2023 5:20 AM EDT [facility] Enterobacter cloacae complex Not Detected Not Detected [facility] 05/16/2023 5:20 AM EDT [facility] Escherichia coli Not Detected Not Detected [facility] 05/16/2023 5:20 AM EDT [facility] Klebsiella (Enterobacter) aerogenes Not Detected Not Detected [facility] 05/16/2023 5:20 AM EDT [facility] Klebsiella oxytoca Not Detected Not Detected [facility] 05/16/2023 5:20 AM EDT [facility] Klebsiella pneumoniae Not Detected Not Detected [facility] 05/16/2023 5:20 AM EDT [facility] Proteus spp Not Detected Not Detected [facility] 05/16/2023 5:20 AM EDT [facility] Pseudomonas aeruginosa Not Detected Not Detected [facility] 05/16/2023 5:20 AM EDT [facility] Serratia marcescens Not Detected Not Detected [facility] 05/16/2023 5:20 AM EDT [facility] Chlamydia pneumoniae Not Detected Not Detected [facility] 05/16/2023 5:20 AM EDT [facility] Legionella pneumophila Not Detected Not Detected [facility] 05/16/2023 5:20 AM EDT [facility] Mycoplasma pneumoniae Not Detected Not Detected [facility] 05/16/2023 5:20 AM EDT [facility] Adenovirus Not Detected Not Detected [facility] 05/16/2023 5:20 AM EDT [facility] Coronavirus Not Detected Not Detected [facility] 05/16/2023 5:20 AM EDT [facility] Human Metapneumovirus Not Detected Not Detected [facility] 05/16/2023 5:20 AM EDT [facility] Human Rhinovirus/Enterovirus Not Detected Not Detected [facility] 05/16/2023 5:20 AM EDT [facility] Influenza A Not Detected Not Detected [facility] 05/16/2023 5:20 AM EDT [facility] Influenza B Not Detected Not Detected [facility] 05/16/2023 5:20 AM EDT [facility] Parainfluenza virus Not Detected Not Detected [facility] 05/16/2023 5:20 AM EDT [facility] Respiratory Syncytial Virus Not Detected Not Detected [facility] 05/16/2023 5:20 AM EDT [facility] Impression Nick Hernández is a 63 year old male with hx of BL lung transplant on immunosuppression, CAD and chronic back pain who has been having behavioral changes and weight loss for past few month acutely deteriorated with seizure like activity requiring intubation. He was loaded with Keppra and started on burst suppression. Work up at OSH including CTH, CT C/A/P, cEEG, MRI brain has been unrevealing thus far. On exam with holding sedation, he is intubated, he opens eyes to tactile stimulation and partially tracks examiner but does not follow commands. Corneal, cough, gag reflexes preserved, Moving all extremities spontaneously but semi purposeful, reflexes 2 through out, negative babinski, no gross neck rigidity noted. Labs work thus far unrevealing. Unclear cause for patients presentation and differential is broad at this time. 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 His current mental status is concerning for subclinical seizures. Recommendations: - cEEG to monitor for subclinical seizures - Consider changing propofol to alternative to avoid masking of EEG interictals. - LP with CSF studies: cell count with differential, protein, glucose, meningitis/encephalitis panel, encephalopathy panel, Blastomyces, Cryptococcus, Histoplasma Ag, VDRL, West Nile IGG/IGM, immunophenotyping, fungal culture, AFB, C&S.(ordered) - CT head wo contrast, (ordered) - CTA brain and neck (ordered) - MRI brain w.wo contrast once stabilized/after EEG - MRI whole spine screening since pt had thoracic back pain with BL lower extremity numbness initially. Thank you for the consultation. If you have any further questions, please contact Neurology Team B. Patient and plan discussed with Dr. Simon. YOLANDA Gabriel Neurology PGY-3 Pager: [phone] 05/17/23 2:17 AM Associated attestation - Margaret Simon DO - 05/17/2023 8:30 PM EDT I saw and personally examined the patient today with the resident/fellow. I discussed the findings and therapeutic plan with the resident/fellow. I agree with the history, physical examination, and medical decisions as outlined. This is a 63 year old gentleman with a past medical history of bilateral lung transplant currently immunosuppressed with Tacrolimus, Mycophenolate, Prednisone whom neurology is consulted on due to altered mental status of unclear etiology. reports subacute change in personality over the past 3 months. On 05/15 his was driving him [facility] an [facility] when he was noted to be unresponsive. On arrival to the ED unclear seizure like activity was witnessed leading to starting AED regimen and intubation. Lumbar puncture was completed on 05/16/23 with WBC 2, protein 83, encephalitis/meningitis panel negative. MRI brain was obtained without contrast which was unremarkable. He was transferred to [facility] on 05/16 for further care and management. 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 CTH within normal limits. These were personally reviewed, agree with radiology report. Assessment and Plan: This is a 63 year old gentleman with a past medical history of bilateral lung transplant currently immunosuppressed with Tacrolimus, Mycophenolate, Prednisone whom neurology is consulted on due to altered mental status of unclear etiology. We will start with cEEG off all AED to better assess for possible seizure/seizure focus. Several labs were added to CSF retained at outside hospital. We will repeat MRI brain and spine (given report of shoulder pain prior to loss of consciousness). We may need to repeat CSF analysis. documented in this encounter [facility] 05-20-2023 Plan of care note Problem: PT - Mobility Goal: Ambulation Description: Pt will ambulate 250 feet with least restrictive device with modified independence to improve ability to navigate home environment. Outcome: Completed Goal: Stairs Description: Pt will ascend/descend 2 stairs with prn use of railings with modified independence with least restrictive device to improve ability to perform functional mobility necessary in recommended discharge environment. Outcome: Completed Problem: PT - Transfers Goal: Sit <-> Stand Description: Pt will perform sit to/from stand transfers with modified independence with least restrictive device in order to improve functional mobility and safety. Outcome: Completed Problem: PT - Transfers Goal: Supine <-> Sit Description: Pt will perform bed mobility with flat bed & no rail with independence in order to improve functional mobility and safety. Outcome: Adequate for Discharge Goal: Strength/ROM Description: Pt will perform 3 sets of 15 repetitions of lower extremity exercises with independence in order to improve strength, maintain ROM, necessary for functional mobility. Outcome: Adequate for Discharge [facility] 05-19-2023 Procedure note Associated Ord er(s): GENERAL PROCEDURE Long-Term EEG Procedure Report: Start Time: 05/17/23: 01:42 End Time: 05/19/23: 08:31 History: 63 year old gentleman with a past medical history of bilateral lung transplant currently immunosuppressed with Tacrolimus, Mycophenolate, Prednisone whom neurology is consulted on due to altered mental status of unclear etiology. Indication: To evaluate for possible seizures. Technical Description: This is a 21-channel digital EEG recording with time-locked video and single-channel electrocardiogram. Electrodes are placed according to the 10 to 20 International System. The patient was monitored continuously by EEG technicians with EEG reviewed intermittently and annotations made to the EEG record every two hours. Portions of this record are reviewed using bandpass filters of 1 to 70 Hz and sensitivity of 7mV/mm. EEG Findings Background: There is no clear PDR recorded from the onset of the study. The background is approximately symmetric, medium amplitude 6-7Hz theta activity mixed with 2-3Hz polymorphic delta activity. There are intermittent higher amplitude GPDs. Sleep and wake differentiation is recorded and NREM sleep is recorded with symmetric VSTs and sleep spindles. 05/18-05/19: There is improvement in the background with a 7-8Hz PDR that is symmetric and reactive to eye opening. The anterior hemispheric activity is also symmetric, medium to low amplitude alpha mixed with excessive theta Focal Asymmetry: no Reactivity: not reactive Rhythmic or Periodic Patterns: Intermittent GPDs, not sustained, limited to wake and periods of stimulation Sporadic ED's: no Brief Rhythmic Discharges: no Electrographic seizure: no Hyperventilation: no Photic stimulation: no Other Clinical Events: none Impression: This is an abnormal 2 DayEEG due to the presence of moderate to severe slowing at the beginning of of the study which improved to mild diffuse slowing indicative of a mild diffuse encephalopathy by the end of the study. There were intermittent GPDs at the onset which resolved by the end of the study. No clear localized features, clinical events or electrographic seizures recorded, clinical correlation recommended. Carlyle Dhaliwal MD [employer], Department of Neurology, Epilepsy Section [facility] 05-19-2023 Procedure note Associated Ord er(s): GENERAL PROCEDURE Long-Term EEG Procedure Report: Start Time: 05/17/23: 01:42 End Time: 05/19/23: 08:31 History: 63 year old gentleman with a past medical history of bilateral lung transplant currently immunosuppressed with Tacrolimus, Mycophenolate, Prednisone whom neurology is consulted on due to altered mental status of unclear etiology. Indication: To evaluate for possible seizures. Technical Description: This is a 21-channel digital EEG recording with time-locked video and single-channel electrocardiogram. Electrodes are placed according to the 10 to 20 International System. The patient was monitored continuously by EEG technicians with EEG reviewed intermittently and annotations made to the EEG record every two hours. Portions of this record are reviewed using bandpass filters of 1 to 70 Hz and sensitivity of 7mV/mm. EEG Findings Background: There is no clear PDR recorded from the onset of the study. The background is approximately symmetric, medium amplitude 6-7Hz theta activity mixed with 2-3Hz polymorphic delta activity. There are intermittent higher amplitude GPDs. Sleep and wake differentiation is recorded and NREM sleep is recorded with symmetric VSTs and sleep spindles. 05/18-05/19: There is improvement in the background with a 7-8Hz PDR that is symmetric and reactive to eye opening. The anterior hemispheric activity is also symmetric, medium to low amplitude alpha mixed with excessive theta Focal Asymmetry: no Reactivity: not reactive Rhythmic or Periodic Patterns: Intermittent GPDs, not sustained, limited to wake and periods of stimulation Sporadic ED's: no Brief Rhythmic Discharges: no Electrographic seizure: no Hyperventilation: no Photic stimulation: no Other Clinical Events: none Impression: This is an abnormal 2 DayEEG due to the presence of moderate to severe slowing at the beginning of of the study which improved to mild diffuse slowing indicative of a mild diffuse encephalopathy by the end of the study. There were intermittent GPDs at the onset which resolved by the end of the study. No clear localized features, clinical events or electrographic seizures recorded, clinical correlation recommended. Carlyle Dhaliwal MD [employer], Department of Neurology, Epilepsy Section [facility] documented in this encounter [facility] 05-19-2023 Procedure note Associated Ord er(s): GENERAL PROCEDURE Long-Term EEG Procedure Report: Start Time: 05/17/23: 01:42 End Time: 05/19/23: 08:31 History: 63 year old gentleman with a past medical history of bilateral lung transplant currently immunosuppressed with Tacrolimus, Mycophenolate, Prednisone whom neurology is consulted on due to altered mental status of unclear etiology. Indication: To evaluate for possible seizures. Technical Description: This is a 21-channel digital EEG recording with time-locked video and single-channel electrocardiogram. Electrodes are placed according to the 10 to 20 International System. The patient was monitored continuously by EEG technicians with EEG reviewed intermittently and annotations made to the EEG record every two hours. Portions of this record are reviewed using bandpass filters of 1 to 70 Hz and sensitivity of 7mV/mm. EEG Findings Background: There is no clear PDR recorded from the onset of the study. The background is approximately symmetric, medium amplitude 6-7Hz theta activity mixed with 2-3Hz polymorphic delta activity. There are intermittent higher amplitude GPDs. Sleep and wake differentiation is recorded and NREM sleep is recorded with symmetric VSTs and sleep spindles. 05/18-05/19: There is improvement in the background with a 7-8Hz PDR that is symmetric and reactive to eye opening. The anterior hemispheric activity is also symmetric, medium to low amplitude alpha mixed with excessive theta Focal Asymmetry: no Reactivity: not reactive Rhythmic or Periodic Patterns: Intermittent GPDs, not sustained, limited to wake and periods of stimulation Sporadic ED's: no Brief Rhythmic Discharges: no Electrographic seizure: no Hyperventilation: no Photic stimulation: no Other Clinical Events: none Impression: This is an abnormal 2 DayEEG due to the presence of moderate to severe slowing at the beginning of of the study which improved to mild diffuse slowing indicative of a mild diffuse encephalopathy by the end of the study. There were intermittent GPDs at the onset which resolved by the end of the study. No clear localized features, clinical events or electrographic seizures recorded, clinical correlation recommended. Carlyle Dhaliwal MD [employer], Department of Neurology, Epilepsy Section [facility] documented in this encounter [facility] 05-19-2023 Plan of care note Problem: Patient Care Overview Goal: Plan of Care Review Outcome: Ongoing Goal: Individualization & Mutuality Outcome: Ongoing Goal: Discharge Needs Assessment Outcome: Ongoing Goal: Interdisciplinary Rounds/Family Conf Outcome: Ongoing [facility] 05-19-2023 Plan of care note Problem: OT - ADLs Goal: Grooming Description: Pt will complete grooming in standing with Mod I for improved ability to safely complete ADLs. Outcome: Progressing Toward Goal Problem: OT - Endurance Goal: Endurance Functional Task Standing Description: Pt will engage in standing functional task for 8 minutes with supervision to improve activity tolerance necessary for safe ADL completion at recommended discharge destination. Outcome: Progressing Toward Goal Problem: OT - Transfers Goal: Transfers Toilet/Bedside Commode Description: Pt will transfer to/from toilet/BSC with supervision for improved ability to safely complete ADLs. Outcome: Progressing Toward Goal [facility] 05-19-2023 Plan of care note Problem: Patient Care Overview Goal: Plan of Care Review Outcome: Ongoing Goal: Individualization & Mutuality Outcome: Ongoing Goal: Discharge Needs Assessment Outcome: Ongoing Problem: Ventilation, Mechanical Invasive (Adult) Goal: Signs and Symptoms of Listed Potential Problems Will be Absent, Minimized or Managed (Ventilation, Mechanical Invasive) Description: Signs and symptoms of listed potential problems will be absent, minimized or managed by discharge/transition of care (reference Ventilation, Mechanical Invasive (Adult) CPG). Outcome: Adequate for Discharge Problem: Nutrition, Enteral (Adult) Goal: Signs and Symptoms of Listed Potential Problems Will be Absent, Minimized or Managed (Nutrition, Enteral) Description: Signs and symptoms of listed potential problems will be absent, minimized or managed by discharge/transition of care (reference Nutrition, Enteral (Adult) CPG). Outcome: Adequate for Discharge [facility] 05-18-2023 Plan of care note Problem: OT - Dressing Goal: Lower Body Dressing Description: Pt will complete LE dressing tasks with supervision for improved ability to complete self-care activities. Outcome: Ongoing Problem: OT - ADLs Goal: Grooming Description: Pt will complete grooming in standing with Mod I for improved ability to safely complete ADLs. Outcome: Ongoing Goal: Toileting Description: Pt will complete toileting task including clothing management with Mod I for improved ability to safely complete self-care activities. Outcome: Ongoing Problem: OT - Endurance Goal: Endurance Functional Task Standing Description: Pt will engage in standing functional task for 8 minutes with supervision to improve activity tolerance necessary for safe ADL completion at recommended discharge destination. Outcome: Ongoing Problem: OT - Transfers Goal: Transfers Toilet/Bedside Commode Description: Pt will transfer to/from toilet/BSC with supervision for improved ability to safely complete ADLs. Outcome: Ongoing Problem: OT - Strength/ROM Goal: Strength/ROM ADL Participation Description: Pt will demonstrate independence with UE exercise program to prevent deconditioning while in the hospital and to maximize UE ROM/coordination/strength for ADL participation. Outcome: Ongoing [facility] 05-18-2023 Plan of care note Problem: PT - Mobility Goal: Ambulation Description: Pt will ambulate 250 feet with least restrictive device with modified independence to improve ability to navigate home environment. 05/18/2023 1356 by Luís Rajput PT Outcome: Ongoing 05/18/2023 135 by Luís Rajput PT Outcome: Ongoing Goal: Stairs Description: Pt will ascend/descend 2 stairs with prn use of railings with modified independence with least restrictive device to improve ability to perform functional mobility necessary in recommended discharge environment. 05/18/2023 1356 by Luís Rajput PT Outcome: Ongoing 05/18/20231354 by Luís Rajput PT Outcome: Ongoing Problem: PT - Transfers Goal: Supine <-> Sit Description: Pt will perform bed mobility with flat bed & no rail with independence in order to improve functional mobility and safety. 05/18/2023 1356 by Luís Rajput PT Outcome: Ongoing 05/18/20231354 by Luís Rajput PT Outcome: Ongoing Goal: Sit <-> Stand Description: Pt will perform sit to/from stand transfers with modified independence with least restrictive device in order to improve functional mobility and safety. 05/18/2023 1356 by Luís Rajput PT Outcome: Ongoing 05/18/20231354 by Luís Rajput PT Outcome: Ongoing Goal: Strength/ROM Description: Pt will perform 3 sets of 15 repetitions of lower extremity exercises with independence in order to improve strength, maintain ROM, necessary for functional mobility. 05/18/2023 1356 by Luís Rajput PT Outcome: Ongoing 05/18/20231354 by Luís Rajput PT Outcome: Ongoing [facility] 05-18-2023 Plan of care note Problem: Patient Care Overview Goal: Plan of Care Review Outcome: Ongoing Goal: Individualization & Mutuality Outcome: Ongoing Goal: Discharge Needs Assessment Outcome: Ongoing Goal: Interdisciplinary Rounds/Family Conf Outcome: Ongoing Problem: Nutrition, Enteral (Adult) Goal: Signs and Symptoms of Listed Potential Problems Will be Absent, Minimized or Managed (Nutrition, Enteral) Description: Signs and symptoms of listed potential problems will be absent, minimized or managed by discharge/transition of care (reference Nutrition, Enteral (Adult) CPG). Outcome: Ongoing [facility] 05-17-2023 Plan of care note Respiratory Therapy Shift Assessment Nick Hernández is a 63 y.o. male Plan of care/Rounds Updates: SBT this afternoon. SAT failed this morning secondary to agitation. Monitor mental status. Full Code No active isolations Admit reason: No chief complaint on file. There were no encounter diagnoses. Pulm/Smoking Hx: Past Medical History: Diagnosis Date Anxiety COPD (chronic obstructive pulmonary disease) with emphysema Herpes zoster Hiatal hernia Nephrolithiasis Presence of granulation tissue 04/16/2019 Added automatically from request for surgery [id number] Primary osteoarthritis of right hip 12/06/2019 Added automatically from request for surgery [id number] Tracheal stenosis 03/12/2020 Added automatically from request for surgery [id number] Social History Tobacco Use Smoking status: Former Packs/day: 1.50 Years: 30.00 Total pack years: 45.00 Types: Cigarettes Quit date: 11/2015 Years since quittin.5 Smokeless tobacco: Never Substance Use Topics Alcohol use: No Comment: Past use with history of DUI Ventilator Weaning Guideline: per MICU protocol Ventilator Liberation Guideline: per MICU protocol IBW VT: mL/kg IBW Tidal Volume: 6.12 SBT: passed this afternoon Recent pertinent labs: Ptt/Pt/Inr: 30.6/14.1/1.1 (05/16 2009) WBC/Hgb/Hct/Plts: 5.53/12.3/38.0/158 (05/17 614) Recent ABG/VBG: pH/PCO2/PO2/HCO3: 7.35/38/45/21 (05/16 2009) Sputum/Secretions/Consistency/[place] r: minimal cloudy Breath Sounds: clear equal Signed: Shea Esteban RCP 05/17/2023 5:19 PM [facility] 05-17-2023 Consult note Formatting of th is note is different from the original. Images from the original note were not included. LUNG TRANSPLANT CONSULT NOTE Referring provider: Sanam Akers Nick Hernández is a 63 y.o. male s/p lung transplantation. IMPRESSION AND RECOMMENDATIONS Drug Levels Lab Results Component Value Date TACROLIMUS 16.2 (H) 02/26/2021 TACROLIMUS 16.2 (H) 12/06/2019 TACROLIMUS 9.0 09/10/2019 Lab Results Component Value Date TACROTRGHMAN 5.4 03/22/2023 TACROTRGHMAN 5.0 02/22/2023 TACROTRGHMAN 5.4 01/24/2023 Transplant Bilateral lung transplant (12/11/18) for COPD (Dr. Reyna) Allograft function: declining - Reference FEV1 = 2.88 L (reset due to weight gain 01/31/20); 80% = 2.30 Immunosuppression, high risk meds, therapeutic drug monitoring PLAN: - Tacrolimus: Goal trough: 4-6; - Mycophenolate: 1000mg bid - Prednisone: 5 mg daily - TITUS Prophylaxis: azithromycin Respiratory Intubated for airway protection PLAN: - MV per ICU team ID CMV D-/R- EBV D+/R+ Vaccinations Influenza: Jul 2021 per patient PCV13: 05/09/18 COVID-19: 01/09/21, 02/06/21 (Moderna); 10/16/21; 08/13/22 PLAN: Empiric antibiotics PPSV23 due Prophylaxis: - Bactrim 1 DS QMWF CV CAD, diffuse HTN PLAN: - ASA, Coreg, Norvasc Renal / Mg wasting due to CNI PLAN: - Monitor BUN/Cr - Mg supplementation GI GERD PLAN: - PPI Heme Anemia PLAN: - Monitor CBC Endocrine Osteoporosis Prediabetes PLAN: - Ca / Vit D - sitagliptin Musculoskeletal / Skin PLAN: - Maintain activity level - Annual dermatologic evaluation Neuro/Psych Admitted with encephalopathy of undetermined etiology. PLAN: - Evaluation per neuro and ICU team. MRI, LP and cEEG - On gabapentin Colonoscopy and Bone densitometer due outpatient POST TRANSPLANT HISTORY - planned Bilateral lung transplantation (12/11/18) for COPD (Dr. Reyna) - Induction with Basiliximab on Day 0 and 4 - PGD @ T24: 0 - PGD @ T48: 0 - PGD @ T72: 0 - Graft function - Reference FEV1 = 2.88 L (reset due to weight gain 01/31/20); 80% = 2.30 - Status - ABO O positive - CMV: Donor NEG Recipient NEG - EBV: Donor POS Recipient POS - Infection: - Donor cultures: S aureus, C albicans - Recipient cultures: S pseudointermedius - 12/12/18 BAL: Metapneumovirus - Ribavirin + prednisone taper - 12/26/18 BAL: Metapneumovirus - Ribavirin + prednisone taper - 03/13/19 BW: S epidermidis, S lugunensis - 04/10/19 BAL: E cloacae - 02/04/21 Thigh bx: Herpesvirus - valacyclovir x 7 days - Transbronchial biopsies: - 02/06/19: A0B0. BALT hyperplasia - 03/13/19: A0B1, aspirated vegetable material - 03/13/19 EBBx: granulation tissue/inflammatory polyp - 04/10/19 EBBx: exuberant granulation tissue with suppurative inflammation - 05/22/19: A0Bx - 07/17/19 EBBx: granulation tissue - 09/03/19 TBBx: A0Bx, focal stenosis (ISHLT stenosis c, c). 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); asymptomatic - Nephrolithiasis s/p lithotripsy - Airway issues: benign growth (granulation tissue), focal moderate BI stenosis (ISHLT stenosis c,c) - - Severe R hip arthritis s/p R COTY (03/06/20) - Lumbar compression fractures s/p vertebroplasties - H/o Bronchial granulation tissue requiring repeat excision; RBI stenosis (ISHLT c, c) - Erectile Dysfunction - 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 Taken to OSH for agitation and confusion. He became unresponsive at arrival to the ED and per report demonstrated seizure like activity. He was intubated and received Keppra load and Propofol and Versed gtt along with the Fentanyl gtt. He was transferred to [facility] ICU for further management. At OSH Procal 0.06. Troponin < 0.012. Urinalysis unremarkable. At the OSH, bronch and BAL were performed, with BAL and LRCx studies pending. RVP and MRSA nares reportedly negative. LP obtained, glucose 62, protein 83, CSF studies pending. MRI Brain obtained, significant for diminished cerebral volume and evidence of chronic white matter small vessel ischemic change. Per pt's over the past 1-2 years patient's behavior has been angry and more erratic. Per lung mail service coordinator notes this has been going on longer. The describes his changes as him getting more angry and forgetful. 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 Earlier on day of admission to OSH ([facility]) the noticed he was acting himself, but after climbing out of the well and started having SOB and became agitated and altered. . REVIEW OF SYSTEMS All other systems reviewed and are negative for pertinent findings except as mentioned in the HPI/Interval History. MEDICATIONS AND ALLERGIES Current Outpatient Medications Medication Sig Last Dose Start Date End Date Authorizing Provider acetaminophen 325 MG tablet Take 2 tablets by mouth every 6 hours as needed for mild or moderate pain. 05/03/22 Nick Lopez MD Alcohol Swabs 70 % Pads 1 Each, Unknown, 2 TIMES DAILY 04/29/22 Akbar Davis DO alendronate 70 MG tablet 70 mg, Oral, EVERY 7 DAYS 07/01/22 Akbar Davis DO amLODIPine 5 MG tablet 5 mg, Oral, DAILY 07/30/22 Nick Lopez MD aspirin (RA Aspirin Adult Low Dose) 81 MG Chew Tab chewable tablet 81 mg, Oral, DAILY 09/12/22 Nick Lopez MD azithromycin 250 MG tablet 250 mg, Oral, EVERY M, W & F 09/15/22 09/15/27 Stephania De León, INTERIOR HORTICULTURIST-[facility] Calcium Citrate-Vitamin D 315-200 MG-UNIT tablet 1 tablet, Oral, EVERY 12 HOURS 07/01/22 Akbar Davis DO carveDILOL 25 MG tablet 25 mg, Oral, 2 TIMES DAILY 03/17/23 Nick Lopez MD ergocalciferol 1.25 MG (43360 UT) capsule 50,000 Units, Oral, WEEKLY 07/01/22 Akbar Davis DO Gabapentin 400 MG capsule TAKE 1 CAPSULE BY MOUTH EVERY MORNING, TAKE 2 CAPSULES BY MOUTH EVERY AFTERNOON and TAKE 1 CAPSULE BY MOUTH EVERY EVENING 10/28/22 04/27/23 Nick Lopez MD glucose blood test strips (OneTouch Ultra) Strip strip 400 strips, Instructed, 2 TIMES DAILY 04/29/22 Akbar Davis DO Lancets Misc 1 Each, Unknown, 2 TIMES DAILY 12/22/22 Christelle Espino MD magnesium oxide 400 MG tablet 800 mg, Oral, EVERY 12 HOURS 07/07/22 Nick Lopez MD multivitamin (multivitamin) tablet 1 tablet, Oral, DAILY 07/01/22 Akbar Davis DO mycophenolate mofetil (CELLCEPT) 250 MG capsule 1,000 mg, Oral, EVERY 12 HOURS 06/02/22 Nick Lopez MD oxybutynin CR 10 MG Tab SR 24 HR tablet 10 mg, Oral, DAILY 04/23/22 Historical Provider pantoprazole [address] DR 40 mg, Oral, 2 TIMES DAILY 07/30/22 Nick Lopez MD predniSONE 5 MG tablet 5 mg, Oral, DAILY 03/04/23 Nick Lopez MD Rosuvastatin 10 MG tablet 10 mg, Oral, DAILY 03/17/23 Nick Lopez MD SITagliptin (Januvia) 100 MG tablet 100 mg, Oral, DAILY 07/01/22 Akbar Davis DO sulfamethoxazole-trimethoprim 800-160 MG per tablet 1 tablet, Oral, THREE TIMES WEEKLY 09/13/22 09/13/27 Nick Lopez MD tacrolimus (PROGRAF) 0.5 MG capsule Take 1 capsule by mouth daily every morning AND 1 capsule every evening. 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 Added automatically from request for surgery [id number] Social History Socioeconomic History Marital status: Highest education level: Not on file Tobacco Use Smoking status: Former Packs/day: 1.50 Years: 30.00 Total pack years: 45.00 Types: Cigarettes Quit date: 11/2015 Years since quittin.5 Smokeless tobacco: Never Vaping Use Family History Problem Relation Age of Onset Heart Failure Mother Myocardial Infarction Father Other - Specify Brother Polio Stroke Sister Emphysema Sister PHYSICAL EXAM BP 146/74 Pulse 59 Temp 98.8 F (37.1 C) Resp 18 Ht 1.829 m (6') Wt 92.4 kg (203 lb 11.3 oz) SpO2 97% BMI 27.63 kg/m Smoking Status Former Body mass index is 27.63 kg/m . Wt Readings from Last 3 Encounters: 05/16/23 92.4 kg (203 lb 11.3 oz) 05/09/23 95.6 kg (210 lb 11.2 oz) 11/08/22 99.1 kg (218 lb 8 oz) GENERAL: Well-developed male. Intubated, sedated HEENT: Pupils equal, round. NECK: Neck supple. No lymphadenopathy. No thyromegaly. No stridor. CARDIOVASCULAR: Regular rate and regular rhythm. No murmurs, rubs or gallops. Normal S1 and S2. PULMONARY: . No wheezing, rhonchi or rales. GASTROINTESTINAL: Soft, non-tender, non-distended. Bowel sounds present. MUSCULOSKELETAL: No cyanosis, clubbing. No joint effusions or erythema. SKIN: Warm and dry. No jaundice or rash. Trace edema NEUROLOGIC: intubated. Perrla. sedated PSYCHIATRIC: cannot assess DATA REVIEW CBC Lab Results Component Value Date WBC 5.53 05/17/2023 HGB 12.3 (L) 05/17/2023 HCT 38.0 (L) 05/17/2023 PLATELET 158 05/17/2023 MCV 90.7 05/17/2023 CMP Lab Results Component Value Date SODIUM 139 05/17/2023 POTASSIUM 4.4 05/17/2023 CHLORIDE 110 (H) 05/17/2023 CO2 19 (L) 05/17/2023 BUN 7 05/17/2023 CREATSERUM 0.76 05/17/2023 GLUCOSE 158 (H) 05/17/2023 Lab Results Component Value Date ALT 15 05/16/2023 AST 19 05/16/2023 GGT 29 03/22/2023 ALKPHOS 48 05/16/2023 BILITOTAL 0.4 05/16/2023 BILIDIRECT 0.1 05/16/2023 Lab Results Component Value Date CMVPCR Not detected 03/22/2023 Imaging/Radiological Studies I have personally reviewed and interpreted the radiographic data in IS. PFT Results 01/28/2021 12:00 04/01/2021 12:00 04/29/2021 12:00 05/27/2021 12:00 06/29/2021 11:00 PFT Results FVC-Pre 3.84 Liters FVC 4.38 4.07 4.33 4.5 FVC % Pred, % Ref 85 79 84 88 FVC-%Pred-Pre 83 % FEV1-Pre 2.36 Liters FEV1 Pre Liters 2.6 2.44 2.66 2.57 FEV1 % Pred % Ref 66 63 68 66 FEV1-%Pred-Pre 67 % FEV1/FVC-Pre 61 % FEV1/FVC % Ref 59 60 61 57 AVF20-97-Mwk 0.99 L/sec FEF 25-75% 1.21 % 1.03 % 1.16 % 0.93 % TLCPleth-Pre 5.98 Liters RVPleth-Pre 1.84 Liters DLCOunc-Pre 25.27 mL/mmHg/min DLCOunc-%Pred-Pre 89 % DLCOcor-%Pred-Pre 93 % 07/29/2021 12:00 09/21/2021 12:00 10/29/2021 12/01/2021 12:00 12/28/2021 12:00 PFT Results FVC-Pre 4.47 Liters FVC 4.23 4.08 4.43 3.96 FVC % Pred, % Ref 82 79 86 77 FVC-%Pred-Pre 96 % FEV1-Pre 2.81 Liters FEV1 Pre Liters 2.6 2.55 2.77 2.46 FEV1 % Pred % Ref 67 65 71 63 FEV1-%Pred-Pre 79 % FEV1/FVC-Pre 63 % FEV1/FVC % Ref 62 63 82 62 AYS26-02-Izy 1.49 L/sec FEF 25-75% 1.12 % 1.22 % 1.32 % 1.11 % TLCPleth-Pre 5.7 Liters RVPleth-Pre 1.6 Liters DLCOunc-Pre 23.55 mL/mmHg/min DLCOunc-%Pred-Pre 83 % DLCOcor-%Pred-Pre 80 % 01/28/2022 12:00 03/30/2022 12:00 05/03/2022 15:00 05/31/2022 12:00 07/01/2022 12:00 PFT Results FVC-Pre 4.15 Liters FVC 4.31 3.69 4.22 4.43 FVC % Pred, % Ref 84 72 82 87 FVC-%Pred-Pre 90 % FEV1-Pre 2.65 Liters FEV1 Pre Liters 2.77 2.09 2.52 2.74 FEV1 % Pred % Ref 71 54 65 71 FEV1-%Pred-Pre 76 % FEV1/FVC-Pre 64 % FEV1/FVC % Ref 64 57 60 62 [id number]-Inf 1.37 L/sec FEF 25-75% 1.46 % 0.65 % 1.07 % 1.25 % TLCPleth-Pre RVPleth-Pre DLCOunc-Pre DLCOunc-%Pred-Pre DLCOcor-%Pred-Pre 07/30/2022 12:00 08/30/2022 12:00 09/29/2022 12:00 11/08/2022 13:32 11/29/2022 12:00 PFT Results FVC-Pre 3.9 Liters 3.9 Liters FVC 4.1 4.05 3.85 3.78 FVC % Pred, % Ref 80 79 75 77 FVC-%Pred-Pre 84 % 84 % FEV1-Pre 2.68 Liters 2.68 Liters FEV1 Pre Liters 2.68 2.5 2.33 2.36 FEV1 % Pred % Ref 69 65 60 62 FEV1-%Pred-Pre 76 % 76 % FEV1/FVC-Pre 69 % 69 % FEV1/FVC % Ref 65 62 60 62 [id number]-Lic 1.73 L/sec 1.73 L/sec FEF 25-75% 1.2 % 1.07 % 1.03 % TLCPleth-Pre 5.32 Liters 5.32 Liters RVPleth-Pre 1.33 Liters 1.33 Liters DLCOunc-Pre 25.61 mL/mmHg/min 25.61 mL/mmHg/min DLCOunc-%Pred-Pre 91 % 91 % DLCOcor-%Pred-Pre 89 % 89 % 12/27/2022 12:00 01/24/2023 12:00 02/28/2023 12:00 03/28/2023 12:00 05/09/2023 13:23 PFT Results FVC-Pre 3.68 Liters FVC 3.9 3.63 3.56 3.98 FVC % Pred, % Ref 79 71 70 78 FVC-%Pred-Pre 80 % FEV1-Pre 2.41 Liters FEV1 Pre Liters 2.41 2.32 2.22 2.46 FEV1 % Pred % Ref 64 60 57 64 FEV1-%Pred-Pre 69 % FEV1/FVC-Pre 65 % FEV1/FVC % Ref 62 64 62 62 XYM63-76-Gmb 1.31 L/sec FEF 25-75% 1.08 % 1.04 % 1.16 % TLCPleth-Pre 5.54 Liters RVPleth-Pre 1.61 Liters DLCOunc-Pre 23.94 mL/mmHg/min DLCOunc-%Pred-Pre 86 % DLCOcor-%Pred-Pre 87 % Details More values are hidden. Newest values shown. Go to activity for more data. PULMONARY CXR - 05/09/23 IMPRESSION: Status post bilateral lung transplant. Chronic right lower lobe volume loss/atelectasis. No acute cardiopulmonary disease. CT Chest - 11/08/22 10/29/2021 Pending official read - appears stable No definite change from the previous study. Chronic elevation of the right hemidiaphragm with some volume loss and scarring in the right lung base remains, but the transplant lungs are otherwise clear. Irregularity of the bronchus intermedius appears unchanged. No definite air trapping is seen at this time, though the difference is likely a consequence of poor depth of expiration, particularly when compared to the prior study. 6MWT 02/26/21: 1598 feet (487 meters), lowest SpO2 97%, oxygen requirement: Room air 02/22/19: 1591 feet (485 meters), lowest SpO2 99%, oxygen requirement: Room air 09/28/18 (pre-tx): 984 feet (300 meters), lowest SpO2 95%, oxygen requirement: 3 LPM CARDIOLOGY TTE - 10/29/21 Left Ventricle: Chamber size is normal. Normal wall thickness. Normal global wall motion. Regional wall motion is normal. Ejection fraction is normal (60 - 65%). Diastolic function is normal. Left Atrium: Chamber size is moderately enlarged. Mitral Valve: Normal appearing leaflets. Leaflet mobility is normal. Trace regurgitation. No valve stenosis. Tricuspid Valve: Normal leaflets. Leaflet mobility is normal. Trace regurgitation. No stenosis. No echo/Doppler evidence for pulmonary hypertension. 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 There has been improvement of bone density since the previous examination. Colonoscopy - 06/21/2018 1. Cecum: Normal appearance no mass lesions normal IIeocecal valve. 2. Ascendlng colon. Normal appearance no mass lesions. 3. Transverse colon: Normal appearance. 2 polyps were identified. One was removed with biopsy forceps completely. The other was removed removed with snare cautery technique. Both of them were brought back to the channel of the scope. 4. Descending colon: Small polyp was identlfled was removed with snare cautery technique and brought back to the channel the scope. 5. Sigmold colon: Normal appearance minlmal dlverticular disease seen. 6. Rectum: Normal appearance no mass lesIons Internal hemorrholds were Identifled. Scope was withdrawn digital rectal exam showed no masses within the anus and a normal prostate smooth and small. Panchito will need to have another colonoscopy In 3 years. MICROSCOPIC DIAGNOSIS Transverse colon polyps, biopsy: Fragments of tubular adenoma. Fragments of fecal material. PSA - 02/26/21 2.03 Christelle Espino MD Division of Pulmonary, Critical Care & Sleep Medicine Department of Internal Medicine [facility] 05-17-2023 Plan of care note Problem: Nutrition, Enteral (Adult) Goal: Signs and Symptoms of Listed Potential Problems Will be Absent, Minimized or Managed (Nutrition, Enteral) Description: Signs and symptoms of listed potential problems will be absent, minimized or managed by discharge/transition of care (reference Nutrition, Enteral (Adult) CPG). Outcome: Ongoing Note: Nutrition Recommendations and Plan of Care: 1. Initiate Vital AF 1.2 at 10 ml/hr; increase by 10 ml every 4 hours to goal rate of 85 ml/hr. - Goal rate will provide 2040 mL, 2448 kcal (26 kcal/kg), 153 g PRO (1.7 g pro/kg), 226 g CHO and 1654 mL free water. - Additional free water flushes per primary team. Recommend minimum 30 mL x 4/day to maintain tube patency. 2. Monitor TF intake, bowel function, skin integrity, weight change, lab values. 3. RD to follow. [facility] 05-17-2023 Nurse [facility] a dual RN initial assessment of skin condition was performed by Felipe Colin RN and Maribeth Mejía RN Skin Assessment: WNL [place] Score: 12 LDA Added:NA Felipe Colin, RN [facility] 05-17-2023 Progress note Formatting of t his note might be different from the original. I certify that this patient requires inpatient services at this time. I anticipate the expected length of stay will include at least two midnights. Inpatient services are due to the following medical concerns altered mental status. Plans for post hospitalization care will be discharge to home. Jesika Ireland MD Internal Medicine / Pediatrics PGY-2 [facility] 05-16-2023 Note Acute Coronary Syndr ome (ACS): Initial Evaluation and Management: [email or web address] 05-[facility]23 Note Acute Coronary Syndr ome (ACS): Initial Evaluation and Management: [email or web address] 05-16-2023 Consult note Associated Order (s): IP CONSULT TO NEUROLOGY Images from the original note were not included. NEUROLOGY CONSULTATION NOTE Reason for consultation: 63 y/o M, transfer from [facility], c/f seizure activity, loaded with keppra at OSH, burst suppression on OSH EEG. Appreciate recs for ongoing antiepileptic mgmt and EEG here. History of present illness: Nick Hernández is a 63 y.o.male with history of COPD s/p BL lung transplant (11/2018; immunosuppressed with Tacrolimus, Mycophenolate, Prednisone), CAD, HTN, chronic back pain who presented as transfer from [facility] for AMS, respiratory distress and seizure like activity. 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 Had been having personality changes (angry and forgetful) for past 3 months. On 05/05 had SOB and was agitated for which his contacted transplant team and was advised for ED visit if similar presentation again. In the meanwhile he was seen by transplant team at outpatient. On 05/15 was driving patient to the hospital and while on the way pt became agitated followed by unresponsiveness requiring BVM. On being more alert he complained of back pain between shoulder blades and loss of sensation in legs. On arrival to ER, he was noted to have seizure like activity twice and was intubated for airway protection. Seizure semiology is not described in the chart. He was started on cEEG and received keppra load (4.5g 2015 05/15/23) was also started on Propofol, Versed, and Fentanyl gtt. cEEG so far did not show any epileptiform activity other than burst suppression. CT C/A/P showed some atelectasis vs infiltrate in the RLL and no other acute changes. On admission to MICU at OSH his antimicrobial coverage was changed from Vanc, Zosyn, and Acyclovir to Meropenem and azithromycin. He had bronchoscopy there. LP was done under fluoroscopy guidance. 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 He has several exposures to farm animals, frequent consumer of cured meats, but no known history of consuming unpasteurized dairy products, no known sick contacts. No recent rashes. Of note, during the lung transplant, EBV was donor and recipient positive, CMV donor and recipient negative. Medical History Review of Systems: The patient was too encephalopathic to obtain accurate review of systems. 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 Added automatically from request for surgery [id number] Past Surgical History: Procedure Laterality Date BRONCHOSCOPY FLEXIBLE DIAGNOSTIC N/A 05/28/2020 Laterality: N/A; Surgeon: TAD Mosley; Location: [facility] BRONCHOSCOPY [place] BRONCHOSCOPY FLEXIBLE DIAGNOSTIC Bilateral 04/02/2020 Laterality: Bilateral; Surgeon: LARRY Mosley; Location: [facility] BRONCHOSCOPY [place] BRONCHOSCOPY FLEXIBLE W/ TRACHEAL BRONCHIAL DILATION AND/OR STENT PLAC N/A 04/02/2020 Laterality: N/A; Surgeon: Yovanny Perla [facility]; Location: [facility] BRONCHOSCOPY [place] HIP SURGERY Right 03/06/2020 BRONCHOSCOPY W/ TRANSBRONCHIAL BX SINGLE LOBE Bilateral 12/11/2019 Laterality: Bilateral; Surgeon: Akbar Davis DO; Location: [facility] BRONCHOSCOPY [place] BRONCHOSCOPY W/ TUMOR DESTRUCTION OR STENOSIS RELIEF Bilateral 12/11/2019 Laterality: Bilateral; Surgeon: Duke Reyes MD; Location: [facility] BRONCHOSCOPY [place] BRONCHOSCOPY W/ TUMOR DESTRUCTION OR STENOSIS RELIEF Bilateral 09/04/2019 Laterality: Bilateral; Surgeon: Akbar Davis DO; Location: [facility] BRONCHOSCOPY [place] BRONCHOSCOPY W/ TUMOR DESTRUCTION OR STENOSIS RELIEF Bilateral 07/17/2019 Laterality: Bilateral; Surgeon: Nick Lopez MD; Location: [facility] BRONCHOSCOPY [place] BRONCHOSCOPY W/ TUMOR DESTRUCTION OR STENOSIS RELIEF Right 05/22/2019 Laterality: Right; Surgeon: Josie Pyle DO; [facility] [place] BRONCHOSCOPY FLEXIBLE W/ TRACHEAL BRONCHIAL DILATION AND/OR STENT PLAC Right 05/22/2019 Laterality: Right; Surgeon: Josie Pyle DO; [facility]OSCOPY [place] BRONCHOSCOPY W/ TUMOR DESTRUCTION OR STENOSIS RELIEF Bilateral 04/10/2019 Laterality: Bilateral; Surgeon: Matthew Davila MD, PhD; [facility] BRON[facility]OSCOPY [place] BRONCHOSCOPY W/ TRANSBRONCHIAL BX SINGLE LOBE Bilateral 03/13/2019 Laterality: Bilateral; Surgeon: Matthew Davila MD, PhD; [facility]: [facility] BR[facility]CHOSCOPY [place] BRONCHOSCOPY W/ TRANSBRONCHIAL BX SINGLE LOBE N/A 02/06/2019 Laterality: N/A; Surgeon: Matthew Davila MD, PhD; [facility]OSCOPY [place] BRONCHOSCOPY FLEXIBLE W/ BRONCHIAL ALVEOLAR LAVAGE Bilateral 12/26/2018 Laterality: Bilateral; Surgeon: Nick Lopez MD; [facility] BRONCHOSCOPY TRANSPLANT LUNG DOUBLE W/ BYPASS Bilateral 12/11/2018 Laterality: Bilateral; Surgeon: James Reyna MD, PhD, MPH; Location: [facility] MAIN OR ORIF WRIST TONSILLECTOMY VERTEBROPLASTY PERCUTANEOUS LUMBAR SINGLE VERTEBRAL BODY Family History Problem Relation Age of Onset Heart Failure Mother Myocardial Infarction Father Other - Specify Brother Polio Stroke Sister Emphysema Sister Social History Socioeconomic History Marital status: Spouse name: Not on file Number of children: Not on file Years of education: Not on file Highest education level: Not on file Occupational History Not on file Tobacco Use Smoking status: Former Packs/day: 1.50 Years: 30.00 Total pack years: 45.00 Types: Cigarettes Quit date: 11/2015 Years since quittin.5 Smokeless tobacco: Never Vaping Use Vaping Use: Never used Substance and Sexual Activity Alcohol use: No Comment: Past use with history of DUI Drug use: No Sexual activity: Not on file Other Topics Concern Not on file Social History Narrative Not on file Social Determinants of Health Financial Resource Strain: Not on file Food Insecurity: Not on file Transportation Needs: Not on file Physical Activity: Not on file Stress: Not on file Social Connections: Not on file Intimate Partner Violence: Not on file Housing Stability: Not on file Allergies Allergen Reactions Breo Ellipta [Fluticasone Furoate-Vilanterol] Shortness of Breath Codeine Hives Medications Prior to Admission Medication Sig Dispense Refill Last Dose acetaminophen 325 MG tablet Take 2 tablets by mouth every 6 hours as needed for mild or moderate pain. 100 tablet 5 Alcohol Swabs 70 % Pads 1 Each by Unknown route 2 times daily. 100 Each 11 alendronate 70 MG tablet Take 1 tablet by mouth every 7 days. 12 tablet 3 amLODIPine 5 MG tablet Take 1 tablet by mouth daily. 90 tablet 3 aspirin (RA Aspirin Adult Low Dose) 81 MG Chew Tab chewable tablet Chew 1 tablet daily. 90 tablet 3 azithromycin 250 MG tablet Take 1 tablet by mouth every Tuesday, Tuesday and Tuesday. 36 tablet 3 Calcium Citrate-Vitamin D 315-200 MG-UNIT tablet Take 1 tablet by mouth every 12 hours. 180 tablet 3 carveDILOL 25 MG tablet Take 1 tablet by mouth 2 times daily. 180 tablet 3 ergocalciferol 1.25 MG (00224 UT) capsule Take 1 capsule by mouth once a week. 12 capsule 3 Gabapentin 400 MG capsule TAKE 1 CAPSULE BY MOUTH EVERY MORNING, TAKE 2 CAPSULES BY MOUTH EVERY AFTERNOON and TAKE 1 CAPSULE BY MOUTH EVERY EVENING 120 capsule 5 glucose blood test strips (OneTouch Ultra) Strip strip 400 strips by Instructed route 2 times daily. 400 strip 11 Lancets Misc 1 Each by Unknown route 2 times daily. 100 Each 1 magnesium oxide 400 MG tablet Take 2 tablets by mouth every 12 hours. 360 tablet 3 multivitamin (multivitamin) tablet Take 1 tablet by mouth daily. 90 tablet 3 mycophenolate mofetil (CELLCEPT) 250 MG capsule Take 4 capsules by mouth every 12 hours. 720 capsule 3 oxybutynin CR 10 MG Tab SR 24 HR tablet Take 1 tablet by mouth daily. pantoprazole [address] tablet DR Take 1 tablet by mouth 2 times daily. 180 tablet 3 predniSONE 5 MG tablet take 1 tablet by mouth daily 90 tablet 3 Rosuvastatin 10 MG tablet Take 1 tablet by mouth daily. 90 tablet 3 SITagliptin (Januvia) 100 MG tablet Take 1 tablet by mouth daily. 90 tablet 3 sulfamethoxazole-trimethoprim 800-160 MG per tablet Take 1 tablet by mouth three times a week. 36 tablet 3 tacrolimus (PROGRAF) 0.5 MG capsule Take 1 capsule by mouth daily every morning AND 1 capsule every evening. 180 capsule 3 Current Medications Current Facility-Administered Medications Medication Dose Route Frequency Provider Last Rate Last Admin Acyclovir (ZOVIRAX) 900 mg in Sodium chloride 0.9%, with overfill 293 mL (total volume) IVPB 10 mg/kg (Dosing Weight) Intravenous Q8H Gerardo Leslie MD 293 mL/hr at 05/16/23 2253 900 mg at 05/16/23 2253 Ampicillin (OMNIPEN) 2 g in sodium chloride 0.9% (MB PLUS) 100 mL (total volume) IVPB 2 g Intravenous Q4H Gerardo Leslie MD 200 mL/hr at 05/17/23 0202 2 g at 05/17/23 0202 Azithromycin (ZITHROMAX) tablet 250 mg 250 mg Oral Q MWF Jesika Ireland MD chlorhexidine (PERIDEX) 0.12 % oral solution 15 mL 15 mL Mucous Membrane Q12H Jesika Ireland MD 15 mL at 05/16/23 2140 dexAMETHasone PF (DECADRON) injection 10 mg 10 mg Intravenous Q6HNS Gerardo Leslie MD 10 mg at 05/16/23 2245 Enoxaparin Sodium (LOVENOX) injection 40 mg 40 mg Subcutaneous Q24H Camilla Martin, [facility] Lactated ringers IV solution Intravenous Continuous Gerardo Leslie MD 100 mL/hr at 05/16/23 2252 New Bag at 05/16/23 2252 Magnesium sulfate 4 g in sterile water 50 ml premix IVPB 4 g Intravenous As directed PRN Jesika Ireland MD Meropenem (MERREM) 2 g in Sodium chloride 0.9%, with overfill 110 mL (total volume) IVPB 2 g Intravenous Q8HNS Camilla Martin, [facility] 36.7 mL/hr at 05/16/23 2246 2 g at 05/16/23 2246 Multi-Vitamins tablet 1 tablet 1 tablet Oral Daily Jesika Ireland MD Pantoprazole (PROTONIX) tablet DR 40 mg 40 mg Oral BID Jesika Ireland MD 40 mg at 05/16/23 2245 Potassium chloride 20 mEq in sterile water 50 ml premix IVPB 20 mEq Intravenous As directed PRN Jesika Ireland MD Or Potassium chloride (K-DUR) tablet ER 20 mEq 20 mEq Oral As directed PRN Jesika Ireland MD Or Potassium Bicarb-Citric Acid (Effer-K) 20 MEQ effervescent tablets for oral solution 20 mEq 20 mEq Per NG tube As directed PRN Jesika Ireland MD Or Potassium chloride 10 mEq in sterile water 100 ml premix IVPB 10 mEq Intravenous As directed PRN Jesika Ireland MD predniSONE (DELTASONE) tablet 5 mg 5 mg Oral Daily Jesika Ireland MD Propofol (DIPRIVAN) 1000 MG/100ML premix infusion 0-50 mcg/kg/min (Dosing Weight) Intravenous Continuous Jesika Ireland MD 27.7 mL/hr at 05/16/23 2329 50 mcg/kg/min at 05/16/23 232 Sodium chloride 0.9% IV solution 250 mL 250 mL Intravenous PRN Jesika Ireland MD 20 mL/hr at 05/16/234 250 mL at 05/16/232123 sodium phosphate 30 mmol in Sodium chloride 0.9%, with overfill 285 mL (total volume) IVPB 30 mmol Intravenous As directed PRGaetano Ireland MD Or sodium phosphate 45 mmol in Sodium chloride 0.9%, with overfill 290 mL (total volume) IVPB 45 mmol Intravenous As directed PRGaetano Ireland MD [START ON 05/18/2023] Sulfamethoxazole-trimethoprim (BACTRIM DS) 800-160 MG per tablet 1 tablet 1 tablet Oral Once per day on Tue Jesika Ireland MD Physical Examination Temp: [98.2 F (36.8 C)-99 F (37.2 C)] 98.4 F (36.9 C) Pulse (Heart Rate): [67-88] 86 Resp Rate: [18-29] 23 BP: (99-156)/(57-82) 156/80 O2 Sat (%): [98 %-100 %] 98 % Weight: [92.4 kg (203 lb 11.3 oz)] 92.4 kg (203 lb 11.3 oz) Body mass index is 27.63 kg/m . General: Intubated, sedation held for exam HENT: Intubated. Normal external appearance of ears and nose. CV/Chest: Equal chest raising. No audible wheezing. RRR. Abdomen: Non-distended. Extremities: No appreciable cyanosis, deformity, or lower extremity edema. Skin: No rash or bruises Neurological Exam: sedation held for exam Cognition: Drowsy, Eyes are closed, opens to loud voice and simultaneous tactile stimulation. Does make eye contact intermittently and partially tracks . Language: Does not follow verbal commands (open/close eyes, squeeze hands) Cranial Nerves:Blink to threat +ve on right eye but not left. Eyes are midline. Pupils are 3mm equal and reactive to light, corneal reflexes are preserved. Cough and gag are preserved. Face appears grossly symmetric Motor/Sensory: moving all extremities spontaneously/semipurposeful, withdraws to pain in all extremities Reflexes: Triceps Biceps Brachioradialis Patellar Achilles Babinski Right 2 2 2 2 1 down Left 2 2 2 2 1 down Coordination: Unable to assess to condition Gait: Unable to assess to condition Stroke Assessment: 05/17/2023 Diagnostic Data Laboratory data: UDS postive for benzo, fentanyl, opiates, and cannabinoids CBC with WBC 6.74, Hb 12.1, plt 152 BMP with CO2 18, otherwise okay LFT okay procal 0.06 TSH 0.567 PT/INR 14.1/1.1 Mg 1.9 phos 2.3 CK 94 Lactate 1.0 Ammonia 32 folate 30.85 B12 630 Tacrolimus level 3.8- goal as per transplant team 4-6 Imaging: CT HEAD WO IV CONTRAST at OSH - Impression - 1. No acute intracranial findings. 2. Chronic ischemic changes suspected. CTA Chest Abdomen Pelvis (05/15/23) at OSH IMPRESSION: 1. No acute process. No evidence of an intramural hematoma, dissection or aneurysm. 2. Patchy airspaces opacities near the lung bases, which could relate to atelectasis versus developing pneumonia in the appropriate clinical setting. 3. Small nodular density in the left hemipelvis, presumed to relate to a lymph node. Attention on follow-up studies is recommended. 4. Additional chronic findings as above, including varying degrees of vascular stenosis (severe near the left internal iliac artery origin). MRI brain wo contrast at OSH: IMPRESSION: 1. Diminished cerebral volume and evidence of chronic white matter small vessel ischemic change without acute intracranial abnormality. 2. Paranasal sinus disease. 3. Small bilateral mastoid effusions. Diagnostic procedures: cEEG at OSH on 05/16/23: This continuous EEG with video is abnormal. A persistent generalized burst-attenuation pattern is seen as evidenced by brief generalized bursts of fast activity intermixed with brief intervals of generalized attenuation. No clearcut epileptiform activity nor seizures are seen. The findings are consistent with a [id number] global encephalopathy nonspecific as to etiology and confounded by sedation. CSF lumbar puncture, clear CSF CSF Glucose 62/ Protein 83 , WBC 2, RBC 28 Meningitis/Encephalitis PCR Panel (includes HSV PCR and VSV PCR) (05/16/2023 4:47 PM EDT) Lab Results - Meningitis/Encephalitis PCR Panel (includes HSV PCR and VSV PCR) (05/16/2023 4:47 PM EDT) Escherichia coli K1 Not Detected Not Detected [facility] 05/16/2023 7:46 PM EDT [facility] Haemophilus influenzae Not Detected Not Detected [facility] 05/16/2023 7:46 PM EDT [facility] Listeria monocytogenes Not Detected Not Detected [facility] 05/16/2023 7:46 PM EDT [facility] Neisseria meningitidis Not Detected Not Detected [facility] 05/16/2023 7:46 PM EDT [facility] Streptococcus agalactiae Not Detected Not Detected [facility] 05/16/2023 7:46 PM EDT [facility] Streptococcus pneumoniae Not Detected Not Detected [facility] 05/16/2023 7:46 PM EDT [facility] Cytomegalovirus Not Detected Not Detected [facility] 05/16/2023 7:46 PM EDT [facility] Enterovirus Not Detected Not Detected [facility] 05/16/2023 7:46 PM EDT [facility] Herpes simplex virus 1 Not Detected Not Detected [facility] 05/16/2023 7:46 PM EDT [facility] Herpes simplex virus 2 Not Detected Not Detected [facility] 05/16/2023 7:46 PM EDT [facility] Human herpesvirus 6 Not Detected Not Detected [facility] 05/16/2023 7:46 PM EDT [facility] Human parechovirus Not Detected Not Detected [facility] 05/16/2023 7:46 PM EDT [facility] Varicella zoster virus Not Detected Not Detected [facility] 05/16/2023 7:46 PM EDT [facility] Cryptococcus neoformans/gattii Not Detected Not Detected [facility] 05/16/2023 7:46 PM EDT [facility] Pneumonia PCR Panel (05/16/2023 12:28 AM EDT) Lab Results - Pneumonia PCR Panel (05/16/2023 12:28 AM EDT) [facility] Staphylococcus aureus Not Detected Not Detected [facility] 05/16/2023 5:20 AM EDT [facility] Streptococcus agalactiae Not Detected Not Detected [facility] 05/16/2023 5:20 AM EDT [facility] Streptococcus pneumoniae Not Detected Not Detected [facility] 05/16/2023 5:20 AM EDT [facility] Streptococcus pyogenes Not Detected Not Detected [facility] 05/16/2023 5:20 AM EDT [facility] Haemophilus influenzae Not Detected Not Detected [facility] 05/16/2023 5:20 AM EDT [facility] Moraxella catarrhalis Not Detected Not Detected [facility] 05/16/2023 5:20 AM EDT [facility] Acinetobacter baumannii complex Not Detected Not Detected [facility] 05/16/2023 5:20 AM EDT [facility] Enterobacter cloacae complex Not Detected Not Detected [facility] 05/16/2023 5:20 AM EDT [facility] Escherichia coli Not Detected Not Detected [facility] 05/16/2023 5:20 AM EDT [facility] Klebsiella (Enterobacter) aerogenes Not Detected Not Detected [facility] 05/16/2023 5:20 AM EDT [facility] Klebsiella oxytoca Not Detected Not Detected [facility] 05/16/2023 5:20 AM EDT [facility] Klebsiella pneumoniae Not Detected Not Detected [facility] 05/16/2023 5:20 AM EDT [facility] Proteus spp Not Detected Not Detected [facility] 05/16/2023 5:20 AM EDT [facility] Pseudomonas aeruginosa Not Detected Not Detected [facility] 05/16/2023 5:20 AM EDT [facility] Serratia marcescens Not Detected Not Detected [facility] 05/16/2023 5:20 AM EDT [facility] Chlamydia pneumoniae Not Detected Not Detected [facility] 05/16/2023 5:20 AM EDT [facility] Legionella pneumophila Not Detected Not Detected [facility] 05/16/2023 5:20 AM EDT [facility] Mycoplasma pneumoniae Not Detected Not Detected [facility] 05/16/2023 5:20 AM EDT [facility] Adenovirus Not Detected Not Detected [facility] 05/16/2023 5:20 AM EDT [facility] Coronavirus Not Detected Not Detected [facility] 05/16/2023 5:20 AM EDT [facility] Human Metapneumovirus Not Detected Not Detected [facility] 05/16/2023 5:20 AM EDT [facility] Human Rhinovirus/Enterovirus Not Detected Not Detected [facility] 05/16/2023 5:20 AM EDT [facility] Influenza A Not Detected Not Detected [facility] 05/16/2023 5:20 AM EDT [facility] Influenza B Not Detected Not Detected [facility] 05/16/2023 5:20 AM EDT [facility] Parainfluenza virus Not Detected Not Detected [facility] 05/16/2023 5:20 AM EDT [facility] Respiratory Syncytial Virus Not Detected Not Detected [facility] 05/16/2023 5:20 AM EDT [facility] Impression Nick Hernández is a 63 year old male with hx of BL lung transplant on immunosuppression, CAD and chronic back pain who has been having behavioral changes and weight loss for past few month acutely deteriorated with seizure like activity requiring intubation. He was loaded with Keppra and started on burst suppression. Work up at OSH including CTH, CT C/A/P, cEEG, MRI brain has been unrevealing thus far. On exam with holding sedation, he is intubated, he opens eyes to tactile stimulation and partially tracks examiner but does not follow commands. Corneal, cough, gag reflexes preserved, Moving all extremities spontaneously but semi purposeful, reflexes 2 through out, negative babinski, no gross neck rigidity noted. Labs work thus far unrevealing. Unclear cause for patients presentation and differential is broad at this time. 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 His current mental status is concerning for subclinical seizures. Recommendations: - cEEG to monitor for subclinical seizures - Consider changing propofol to alternative to avoid masking of EEG interictals. - LP with CSF studies: cell count with differential, protein, glucose, meningitis/encephalitis panel, encephalopathy panel, Blastomyces, Cryptococcus, Histoplasma Ag, VDRL, West Nile IGG/IGM, immunophenotyping, fungal culture, AFB, C&S.(ordered) - CT head wo contrast, (ordered) - CTA brain and neck (ordered) - MRI brain w.wo contrast once stabilized/after EEG - MRI whole spine screening since pt had thoracic back pain with BL lower extremity numbness initially. Thank you for the consultation. If you have any further questions, please contact Neurology Team B. Patient and plan discussed with Dr. Simon. YOLANDA Gabriel Neurology PGY-3 Pager: [phone] 05/17/23 2:17 AM Associated attestation - Margaret Simon DO - 05/17/2023 8:30 PM EDT I saw and personally examined the patient today with the resident/fellow. I discussed the findings and therapeutic plan with the resident/fellow. I agree with the history, physical examination, and medical decisions as outlined. This is a 63 year old gentleman with a past medical history of bilateral lung transplant currently immunosuppressed with Tacrolimus, Mycophenolate, Prednisone whom neurology is consulted on due to altered mental status of unclear etiology. reports subacute change in personality over the past 3 months. On 05/15 his was driving [facility] an [facility] when he was noted to be unresponsive. On arrival to the ED unclear seizure like activity was witnessed leading to starting AED regimen and intubation. Lumbar puncture was completed on 05/16/23 with WBC 2, protein 83, encephalitis/meningitis panel negative. MRI brain was obtained without contrast which was unremarkable. He was transferred to [facility] on 05/16 for further care and management. 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 CTH within normal limits. These were personally reviewed, agree with radiology report. Assessment and Plan: This is a 63 year old gentleman with a past medical history of bilateral lung transplant currently immunosuppressed with Tacrolimus, Mycophenolate, Prednisone whom neurology is consulted on due to altered mental status of unclear etiology. We will start with cEEG off all AED to better assess for possible seizure/seizure focus. Several labs were added to CSF retained at outside hospital. We will repeat MRI brain and spine (given report of shoulder pain prior to loss of consciousness). We may need to repeat CSF analysis. [facility] Work Phone: 05-16-2023 History and physical note MICU HISTORY AND PHYSICAL IDENTIFYING INFORMATION PATIENT: Nick Hernández ADMIT DATE: 05/16/2023 TIME OF EVALUATION: 05/17/2023 4:00 AM HOSPITAL STAY: LOS: 1 day CHIEF COMPLAINT Altered mental status HISTORY OF PRESENT ILLNESS Nick Hernández is a 63 y.o. male with a past medical history of bilateral lung transplant (2019, following longstanding hx of COPD), CAD, HTN, DM. He presents with a one day history of acutely altered mental status, in the setting of 3 months of slowly progressive personality changes. Per OSH chart review: Per pt's over the past 3 months the pt has lost about 25 lbs and then over the past month his personality has slowly changed. The describes his changes as him getting more angry and forgetful. 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 Earlier on day of admission to OSH ([facility]) the noticed he was acting himself, but after climbing out of the well and started having SOB and became agitated and altered. The called the transplant team at [facility] who recommended they go to his local ED for evaluation. While they were driving to the hospital the said that he was yelling at her. When they arrived at [facility] ED he became unresponsive in the car with agonal breathing. The ED team was able to take the pt out of the car and place him on the sidewalk. They started ventilating with BVM. He did become more responsive, but started having seizure like activity. He was intubated at that time and treated for presumed seizure with Versed [address] head and CTA C/A/P showed some atelectasis vs infiltrate in the RLL and no other acute changes. He was then transported to an ED room where he started having more seizure activity. For which he received Keppra load and Propofol and Versed gtt along with the Fentanyl gtt. Before the propofol and versed gtt were started he was given another 6 mg of Versed for his seizure activity. He was admitted to the ICU for further management. At OSH, Chem notable for Na 137, K 3.5, Cr 0.99. CBC with WBC 7.4, Hgb 12.1, Platelets 158. Procal 0.06. Troponin < 0.012. Urinalysis unremarkable. At the OSH, bronch and BAL were performed, with BAL and LRCx studies pending. RVP and MRSA nares reportedly negative. LP obtained, glucose 62, protein 83, CSF studies pending. MRI Brain obtained, significant for diminished cerebral volume and evidence of chronic white matter small vessel ischemic change without acute intracranial abnormality, paranasal sinus disease, and small bilateral mastoid effusions. Pt was subsequently transferred to [facility] for further management and access to the [facility] transplant team. Upon arrival to the MICU, per nursing report, pt withdrawing to pain in all extremities, reflexes intact, pupils reactive to light. Propofol briefly paused, during which time pt became extremely agitated and restless, so propofol was restarted. Na 141, K 3.7, Cr 0.71. WBC 6.74, Hgb 12.1, Platelet 152. Troponin 4 ng/L, BNP 50. Procalcitonin 0.06, Lactate 1.0. Ammonia 32. Pt's and legal next of kin, Sulma Hernández, at bedside. PAST MEDICAL, SURGICAL, FAMILY, and SOCIAL HISTORY Past Medical History: Diagnosis Date Anxiety COPD (chronic obstructive pulmonary disease) with emphysema Herpes zoster Hiatal hernia Nephrolithiasis Presence of granulation tissue 04/16/2019 Added automatically from request for surgery [id number] Primary osteoarthritis of right hip 12/06/2019 Added automatically from request for surgery [id number] Tracheal stenosis 03/12/2020 Added automatically from request for surgery [id number] Past Surgical History: Procedure Laterality Date BRONCHOSCOPY FLEXIBLE DIAGNOSTIC N/A 05/28/2020 Laterality: N/A; [facility]: [facility] BRONCHOSCOPY [place] BRONCHOSCOPY FLEXIBLE DIAGNOSTIC Bilateral 04/02/2020 Laterality: Bilateral; [facility] Location: [facility] BRONCHOSCOPY [place] BRONCHOSCOPY FLEXIBLE W/ TRACHEAL BRONCHIAL DILATION AND/OR STENT PLAC N/A 04/02/2020 Laterality: N/A; [facility]; Location: [facility] BRONCHOSCOPY [place] HIP SURGERY Right 03/06/2020 BRONCHOSCOPY W/ TRANSBRONCHIAL BX SINGLE LOBE Bilateral 12/11/2019 Laterality: Bilateral; Surgeon: Akbar Davis DO; Location: [facility] BRONCHOSCOPY [place] BRONCHOSCOPY W/ TUMOR DESTRUCTION OR STENOSIS RELIEF Bilateral 12/11/2019 Laterality: Bilateral; Surgeon: Duke Reyes MD; [facility] BRON[facility]OSCOPY [place] BRONCHOSCOPY W/ TUMOR DESTRUCTION OR STENOSIS RELIEF Bilateral 09/04/2019 Laterality: Bilateral; Surgeon: Akbar Davis DO; Location: [facility] BRONCHOSCOPY [place] BRONCHOSCOPY W/ TUMOR DESTRUCTION OR STENOSIS RELIEF Bilateral 07/17/2019 Laterality: Bilateral; Surgeon: Nick Lopez MD; Location: [facility] BRONCHOSCOPY [place] BRONCHOSCOPY W/ TUMOR DESTRUCTION OR STENOSIS RELIEF Right 05/22/2019 Laterality: Right; Surgeon: Josie Pyle DO; Location: [facility] BRONCHOSCOPY [place] BRONCHOSCOPY FLEXIBLE W/ TRACHEAL BRONCHIAL DILATION AND/OR STENT PLAC Right 05/22/2019 Laterality: Right; Surgeon: Josie Pyle DO; Location: [facility] BRONCHOSCOPY [place] BRONCHOSCOPY W/ TUMOR DESTRUCTION OR STENOSIS RELIEF Bilateral 04/10/2019 Laterality: Bilateral; Surgeon: Matthew Davila MD, PhD; Location: [facility]ONCHOSCOPY [place] BRONCHOSCOPY W/ TRANSBRONCHIAL BX SINGLE LOBE Bilateral 03/13/2019 Laterality: Bilateral; Surgeon: Matthew Davila MD, PhD; Location: [facility]OSCOPY [place] BRON[place] W/ TRANSBRONCHIAL BX SINGLE LOBE N/A 02/06/2019 Laterality: N/A; Surgeon: Matthew Davila MD, PhD; Location: [facility]OSCOPY [place] BRONCHOSCOPY FLEXIBLE W/ BRONCHIAL ALVEOLAR LAVAGE Bilateral 12/26/2018 Laterality: Bilateral; Surgeon: Nick Lopez MD; Location: [facility] BRONCHOSCOPY TRANSPLANT LUNG DOUBLE W/ BYPASS Bilateral 12/11/2018 Laterality: Bilateral; Surgeon: James Reyna MD, PhD, MPH; Location: [facility] MAIN OR ORIF WRIST TONSILLECTOMY VERTEBROPLASTY PERCUTANEOUS LUMBAR SINGLE VERTEBRAL BODY Family History Problem Relation Age of Onset Heart Failure Mother Myocardial Infarction Father Other - Specify Brother Polio Stroke Sister Emphysema Sister Social History Socioeconomic History Marital status: Tobacco Use Smoking status: Former Packs/day: 1.50 Years: 30.00 Total pack years: 45.00 Types: Cigarettes Quit date: 11/2015 Years since quittin.5 Smokeless tobacco: Never Vaping Use Vaping Use: Never used Substance and Sexual Activity Alcohol use: No Comment: Past use with history of DUI Drug use: No MEDICATIONS SCHEDULED: Azithromycin (ZITHROMAX) tablet 250 mg, 250 mg, Q MWF chlorhexidine (PERIDEX) 0.12 % oral solution 15 mL, 15 mL, Q12H Enoxaparin Sodium (LOVENOX) injection 40 mg, 40 mg, Q24H Meropenem (MERREM) 2 g in Sodium chloride 0.9%, with overfill 110 mL (total volume) IVPB, 2 g, Q8HNS Multi-Vitamins tablet 1 tablet, 1 tablet, Daily Pantoprazole (PROTONIX) tablet DR 40 mg, 40 mg, BID predniSONE (DELTASONE) tablet 5 mg, 5 mg, Daily [START ON 05/18/2023] Sulfamethoxazole-trimethoprim (BACTRIM DS) 800-160 MG per tablet 1 tablet, 1 tablet, Once per day on Tue FLUIDS/DRIPS: Lactated ringers 100 mL/hr at 05/16/23 2252 Propofol 50 mcg/kg/min (05/17/23 0316) PRNs: Magnesium Sulfate IVPB, 4 g, As directed PRN potassium chloride, 20 mEq, As directed PRN Or Potassium chloride, 20 mEq, As directed PRN Or Potassium Bicarb-Citric Acid, 20 mEq, As directed PRN Or potassium chloride, 10 mEq, As directed PRN Sodium chloride 0.9%, 250 mL, PRN Sodium Phosphate IVPB, 30 mmol, As directed PRN Or Sodium Phosphate IVPB, 45 mmol, As directed PRN ALLERGIES: He is allergic to breo ellipta [fluticasone furoate-vilanterol] and codeine. PRIOR TO HOSPITALIZATION MEDS: Prior to Admission Medications Prescriptions Last Dose Informant Patient Reported? Taking? Alcohol Swabs 70 % Pads No No Si Each by Unknown route 2 times daily. Calcium Citrate-Vitamin D 315-200 MG-UNIT tablet No No Sig: Take 1 tablet by mouth every 12 hours. Gabapentin 400 MG capsule No No Sig: TAKE 1 CAPSULE BY MOUTH EVERY MORNING, TAKE 2 CAPSULES BY MOUTH EVERY AFTERNOON and TAKE 1 CAPSULE BY MOUTH EVERY EVENING Lancets Misc No No Si Each by Unknown route 2 times daily. Rosuvastatin 10 MG tablet No No Sig: Take 1 tablet by mouth daily. SITagliptin (Januvia) 100 MG tablet No No Sig: Take 1 tablet by mouth daily. acetaminophen 325 MG tablet No No Sig: Take 2 tablets by mouth every 6 hours as needed for mild or moderate pain. alendronate 70 MG tablet No No Sig: Take 1 tablet by mouth every 7 days. amLODIPine 5 MG tablet No No Sig: Take 1 tablet by mouth daily. aspirin (RA Aspirin Adult Low Dose) 81 MG Chew Tab chewable tablet No No Sig: Chew 1 tablet daily. azithromycin 250 MG tablet No No Sig: Take 1 tablet by mouth every Tuesday, Tuesday and Tuesday. carveDILOL 25 MG tablet No No Sig: Take 1 tablet by mouth 2 times daily. ergocalciferol 1.25 MG (98548 UT) capsule No No Sig: Take 1 capsule by mouth once a week. glucose blood test strips (Navendisuch Ultra) Strip strip No No Si strips by Instructed route 2 times daily. magnesium oxide 400 MG tablet No No Sig: Take 2 tablets by mouth every 12 hours. multivitamin (multivitamin) tablet No No Sig: Take 1 tablet by mouth daily. mycophenolate mofetil (CELLCEPT) 250 MG capsule No No Sig: Take 4 capsules by mouth every 12 hours. oxybutynin CR 10 MG Tab SR 24 HR tablet Yes No Sig: Take 1 tablet by mouth daily. pantoprazole [address] tablet DR No No Sig: Take 1 tablet by mouth 2 times daily. predniSONE 5 MG tablet No No Sig: take 1 tablet by mouth daily sulfamethoxazole-trimethoprim 800-160 MG per tablet No No Sig: Take 1 tablet by mouth three times a week. tacrolimus (PROGRAF) 0.5 MG capsule No No Sig: Take 1 capsule by mouth daily every morning AND 1 capsule every evening. Facility-Administered Medications: None REVIEW OF SYSTEMS [x] Unable to obtain review of systems. Reason: Intubated, sedated OBJECTIVE Vital Signs (24hrs): Temp: [98.2 F (36.8 C)-99 F (37.2 C)] 98.6 F (37 C) Pulse (Heart Rate): [67-88] 86 Resp Rate: [18-29] 23 BP: (99-156)/(57-82) 156/80 O2 Sat (%): [98 %-100 %] 98 % Weight: [92.4 kg (203 lb 11.3 oz)] 92.4 kg (203 lb 11.3 oz) Hemodynamic/Invasive Device Data (24 hrs): Pulmonary/Cardiac Hemodynamics Pulse (Heart Rate): 86 BSA (Calculated - sq m): 2.15 m2 Neuro ICP/CPP Monitoring MAP (mmHg): (!) 111 mmHg Neuro ICP/CPP Monitoring 2 MAP (mmHg): (!) 111 mmHg Ventilation/Oxygen Therapy (24hrs): Oxygen Therapy O2 Sat (%): 98 % O2 Device: ventilator (mechanical ventilation) Oxygen Concentration (%): 30 Ventilator Settings and Monitoring (Adult/Peds) Ventilator Type: R860 Ventilator/Non-Ventilator Mode: A/C PRVC Set/Target Tidal Volume: 475 mL/kg IBW Tidal Volume: 6.12 Set Respiratory Rate/Release Rate: 18 Total Respiratory Rate: 20 PEEP (cm H2O): 8 Peak Inspiratory Pressure (cmH2O): 17 I:E Ratio: 1:2.3 Oxygen Delivery/Consumption Hemodynamics BSA (Calculated - sq m): 2.15 m2 Neuro-Cognitive Assessment/Scores Level Of Consciousness: sedated Orientation: other (see comments) (GWEN) Lines/Drains/Airways/Wounds: Patient Lines/Drains/Airways Status Active Lines, Drains, Airways, & Wound Overview Name Placement date Placement time Site Days Percutaneous Central Line - Triple Lumen 05/16/23199905/16/231999 -- less than 1 Indwelling Urethral Catheter 05/16/23189905/16/231899 -- less than 1 Naso/Oral Tube 05/16/23199905/16/231999 -- less than 1 Airway Subglottic Suction ETT -- -- -- -- Fluid Management (24hrs): -Intake/Output last 3 shifts: I/O last 3 completed shifts: In: - Out: 300 [Urine:300] -Intake/Output this shift: No intake/output data recorded. Physical Exam: Constitutional: male, somnolent, in no acute distress Head: Normocephalic and atraumatic. Eyes: Conjunctivae normal, pupils sluggish but reactive to light Neck: supple, no JVD Mouth/Throat: Oropharynx is clear and moist. Cardiovascular: Normal rate, regular rhythm, normal heart sounds; Respiratory: auscultation: clear lung schulz bilaterally Abdominal: Soft, non-tender, bowel sounds are normal Musculoskeletal: no edema Neurological: sedated, not able to participate in exam. Withdraws to pain in all extremities, reflexes intact. Skin: warm and dry. No rash, erythema or pallor noted. DIAGNOSTIC RESULTS/PROCEDURES Labs-ABGs pH/PCO2/PO2/HCO3: 7.35/38/45/21 (05/16 2009) Labs-CBC WBC/Hgb/Hct/Plts: 6.74/12.1/38.5/152 (05/16 2009) Labs-Chem 7([facility]) Bun/Creat/Cl/CO2/Glucose: 7/0.71/112/18/100 (05/16 2009-05/16 2028) Na/K+/Phos/Mg/Ca: 141/3.7/2.3/1.9/-- (05/16 2009) Labs-Coags Ptt/Pt/Inr: 30.6/14.1/1.1 (05/16 2009) Consults/Procedures: IP CONSULT TO NUTRITION IP CONSULT TO PHYSICAL THERAPY IP CONSULT TO OCCUPATIONAL THERAPY IP CONSULT TO NEUROLOGY IP CONSULT TO LUNG - TRANSPLANT ASSESSMENT AND PLAN Nick Hernández is a 63 y.o. male with a past medical history of bilateral lung transplant (2018, following longstanding hx of COPD), CAD, HTN, DM. He presents with a one day history of acutely altered mental status, in the setting of 3 months of slowly progressive personality changes. Acute encephalopathy C/f status epilepticus Subjective hx from of worsening mental status . CT head negative for acute process at OSH. LP obtained, glucose 62, protein 83, WBC 1. CSF studies pending. MRI Brain obtained, significant for diminished cerebral volume and evidence of chronic white matter small vessel ischemic change without acute intracranial abnormality, paranasal sinus disease, and small bilateral mastoid effusions. Upon arrival to [facility], CSF studies were not initially visible in the chart, so meningitic coverage initially started with meropenem, acyclovir, ampicillin. Vancomycin not ordered as MRSA negative at OSH. - Neurology consulted, following > ammonia, UDS, serum tox screen > TSH, folate, vitamin B1, vitamin B12, lactate, CK > autoimmune encephalopathy, paraneoplastic panels > lyme AB > HIV1/2, Syphilis, MMA > cEEG > CTH, CTA - meningitic coverage initially started with meropenem, acyclovir, ampicillin; partially discontinued per results of CSF studies - follow up OSH infectious workup - propofol gtt Acute hypoxic respiratory failure, intubated for airway protection S/p bilateral lung transplant for end stage COPD 12/11/2018 Chronic R hemidiaphragm paralysis B/l lung transplant at [facility] on 12/11/2018, follows with Dr. Espino at [facility]. 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 Bronch with BAL performed at OSH --> PNA PCR, respiratory culture pending. Limited viral respiratory panel negative at OSH including covid, human metapneumo, paraflu. Procal negative 0.06 at OSH. - transplant team consulted, appreciate recs - goal tacro level 4-6 per outpt transplant notes - Per OSH records have been holding home tacrolimus and Cellcept due to ISAIAS/concern for possible toxicity. Cont prednisone 5 mg/day. - continue bactrim and azithro ppx - abx as above - follow up LRCx, BAL studies obtained at OSH - per report, blood cultures obtained at OSH, however these were not visible in care everywhere, so repeat ISAIAS, improving Baseline Cr ~1.0-1.1, on admission at OSH was noted at 1.6. Suspect prerenal given resolution with IVF at OSH. Urine lytes and osms obtained at OSH with FeNa 0.7% at that time. - daily chem, renal protective measures Hyperglycemia History of prediabetes Last a1c 5.9%. Home regimen includes sitagliptin - SSI regular while on TF Acute normocytic anemia Baseline hgb ~14. Less concern for acute bleed at this time given hemodynamic instability, absence of melena or other red flag symptoms. Transfusion goals hgb >7, plt >50 or >10 in the setting of acute bleed. - daily cbc, trend FEN: NPO with meds. Strict I/O. Replete electrolytes per ICU protocol. PPX: DVT: lovenox Code Status: FULL This plan was discussed with Dr. Gerardo Leslie, the overnight fellow collection agent for the MICU. Jesika Ireland MD Internal Medicine / Pediatrics PGY-2 [facility] 05-16-2023 History and physical note MICU HISTORY AND PHYSICAL IDENTIFYING INFORMATION PATIENT: Nick Hernández ADMIT DATE: 05/16/2023 TIME OF EVALUATION: 05/17/2023 4:00 AM HOSPITAL STAY: LOS: 1 day CHIEF COMPLAINT Altered mental status HISTORY OF PRESENT ILLNESS Nick Hernández is a 63 y.o. male with a past medical history of bilateral lung transplant (2019, following longstanding hx of COPD), CAD, HTN, DM. He presents with a one day history of acutely altered mental status, in the setting of 3 months of slowly progressive personality changes. Per OSH chart review: Per pt's over the past 3 months the pt has lost about 25 lbs and then over the past month his personality has slowly changed. The describes his changes as him getting more angry and forgetful. 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 Earlier on day of admission to OSH ([facility]) the noticed he was acting himself, but after climbing out of the well and started having SOB and became agitated and altered. The called the transplant team at [facility] who recommended they go to his local ED for evaluation. While they were driving to the hospital the said that he was yelling at her. When they arrived at [facility] ED he became unresponsive in the car with agonal breathing. The ED team was able to take the pt out of the car and place him on the sidewalk. They started ventilating with BVM. He did become more responsive, but started having seizure like activity. He was intubated at that time and treated for presumed seizure with Versed [address] head and CTA C/A/P showed some atelectasis vs infiltrate in the RLL and no other acute changes. He was then transported to an ED room where he started having more seizure activity. For which he received Keppra load and Propofol and Versed gtt along with the Fentanyl gtt. Before the propofol and versed gtt were started he was given another 6 mg of Versed for his seizure activity. He was admitted to the ICU for further management. At OSH, Chem notable for Na 137, K 3.5, Cr 0.99. CBC with WBC 7.4, Hgb 12.1, Platelets 158. Procal 0.06. Troponin < 0.012. Urinalysis unremarkable. At the OSH, bronch and BAL were performed, with BAL and LRCx studies pending. RVP and MRSA nares reportedly negative. LP obtained, glucose 62, protein 83, CSF studies pending. MRI Brain obtained, significant for diminished cerebral volume and evidence of chronic white matter small vessel ischemic change without acute intracranial abnormality, paranasal sinus disease, and small bilateral mastoid effusions. Pt was subsequently transferred to [facility] for further management and access to the [facility] transplant team. Upon arrival to the MICU, per nursing report, pt withdrawing to pain in all extremities, reflexes intact, pupils reactive to light. Propofol briefly paused, during which time pt became extremely agitated and restless, so propofol was restarted. Na 141, K 3.7, Cr 0.71. WBC 6.74, Hgb 12.1, Platelet 152. Troponin 4 ng/L, BNP 50. Procalcitonin 0.06, Lactate 1.0. Ammonia 32. Pt's and legal next of kin, Sulma Hernández, at bedside. PAST MEDICAL, SURGICAL, FAMILY, and SOCIAL HISTORY Past Medical History: Diagnosis Date Anxiety COPD (chronic obstructive pulmonary disease) with emphysema Herpes zoster Hiatal hernia Nephrolithiasis Presence of granulation tissue 04/16/2019 Added automatically from request for surgery [id number] Primary osteoarthritis of right hip 12/06/2019 Added automatically from request for surgery [id number] Tracheal stenosis 03/12/2020 Added automatically from request for surgery [id number] Past Surgical History: Procedure Laterality Date BRONCHOSCOPY FLEXIBLE DIAGNOSTIC N/A 05/28/2020 Laterality: N/A; [facility]; Location: [facility]CHOSCOPY [place] BRONCHOSCOPY FLEXIBLE DIAGNOSTIC Bilateral 04/02/2020 Laterality: Bilateral; [facility]; Location: [facility] [place]OSCOPY [place] BRONCHOSCOPY FLEXIBLE W/ TRACHEAL BRONCHIAL DILATION AND/OR STENT PLAC N/A 04/02/2020 Laterality: N/A; [facility]; Location: [facility] BRONCHOSCOPY [place] HIP SURGERY Right 03/06/2020 BRONCHOSCOPY W/ TRANSBRONCHIAL BX SINGLE LOBE Bilateral 12/11/2019 Laterality: Bilateral; Surgeon: Akbar Davis DO; Location: [facility] BRONCHOSCOPY [place] BRONCHOSCOPY W/ TUMOR DESTRUCTION OR STENOSIS RELIEF Bilateral 12/11/2019 Laterality: Bilateral; Surgeon: Duke Reyes MD; [facility]OSCOPY [place] BRONCHOSCOPY W/ TUMOR DESTRUCTION OR STENOSIS RELIEF Bilateral 09/04/2019 Laterality: Bilateral; Surgeon: Akbar Davis DO; Location: [facility] BRONCHOSCOPY [place] BRONCHOSCOPY W/ TUMOR DESTRUCTION OR STENOSIS RELIEF Bilateral 07/17/2019 Laterality: Bilateral; Surgeon: Nick Lopez MD; Location: [facility] BRONCHOSCOPY [place] BRONCHOSCOPY W/ TUMOR DESTRUCTION OR STENOSIS RELIEF Right 05/22/2019 Laterality: Right; Surgeon: Josie Pyle DO; Location: [facility] BRONCHOSCOPY [place] BRONCHOSCOPY FLEXIBLE W/ TRACHEAL BRONCHIAL DILATION AND/OR STENT PLAC Right 05/22/2019 Laterality: Right; Surgeon: Josie Pyle DO; Location: [facility] BRONCHOSCOPY [place] BRONCHOSCOPY W/ TUMOR DESTRUCTION OR STENOSIS RELIEF Bilateral 04/10/2019 Laterality: Bilateral; Surgeon: Matthew Davila MD, PhD; Location: [facility]OSCOPY [place] BRONCHOSCOPY W/ TRANSBRONCHIAL BX SINGLE LOBE Bilateral 03/13/2019 Laterality: Bilateral; Surgeon: Matthew Davila MD, PhD; Location: [facility]OSCOPY [place] BRONCHOSCOPY W/ TRANSBRONCHIAL BX SINGLE LOBE N/A 02/06/2019 Laterality: N/A; Surgeon: Matthew Davila MD, PhD; Location: [facility]OSCOPY [place] BRONCHOSCOPY FLEXIBLE W/ BRONCHIAL ALVEOLAR LAVAGE Bilateral 12/26/2018 Laterality: Bilateral; Surgeon: Nick Lopez MD; Location: [facility] BRONCHOSCOPY TRANSPLANT LUNG DOUBLE W/ BYPASS Bilateral 12/11/2018 Laterality: Bilateral; Surgeon: James Reyna MD, PhD, MPH; Location: [facility] MAIN OR ORIF WRIST TONSILLECTOMY VERTEBROPLASTY PERCUTANEOUS LUMBAR SINGLE VERTEBRAL BODY Family History Problem Relation Age of Onset Heart Failure Mother Myocardial Infarction Father Other - Specify Brother Polio Stroke Sister Emphysema Sister Social History Socioeconomic History Marital status: Tobacco Use Smoking status: Former Packs/day: 1.50 Years: 30.00 Total pack years: 45.00 Types: Cigarettes Quit date: 11/2015 Years since quittin.5 Smokeless tobacco: Never Vaping Use Vaping Use: Never used Substance and Sexual Activity Alcohol use: No Comment: Past use with history of DUI Drug use: No MEDICATIONS SCHEDULED: Azithromycin (ZITHROMAX) tablet 250 mg, 250 mg, Q MWF chlorhexidine (PERIDEX) 0.12 % oral solution 15 mL, 15 mL, Q12H Enoxaparin Sodium (LOVENOX) injection 40 mg, 40 mg, Q24H Meropenem (MERREM) 2 g in Sodium chloride 0.9%, with overfill 110 mL (total volume) IVPB, 2 g, Q8HNS Multi-Vitamins tablet 1 tablet, 1 tablet, Daily Pantoprazole (PROTONIX) tablet DR 40 mg, 40 mg, BID predniSONE (DELTASONE) tablet 5 mg, 5 mg, Daily [START ON 05/18/2023] Sulfamethoxazole-trimethoprim (BACTRIM DS) 800-160 MG per tablet 1 tablet, 1 tablet, Once per day on Tue FLUIDS/DRIPS: Lactated ringers 100 mL/hr at 05/16/23 2252 Propofol 50 mcg/kg/min (05/17/23 0316) PRNs: Magnesium Sulfate IVPB, 4 g, As directed PRN potassium chloride, 20 mEq, As directed PRN Or Potassium chloride, 20 mEq, As directed PRN Or Potassium Bicarb-Citric Acid, 20 mEq, As directed PRN Or potassium chloride, 10 mEq, As directed PRN Sodium chloride 0.9%, 250 mL, PRN Sodium Phosphate IVPB, 30 mmol, As directed PRN Or Sodium Phosphate IVPB, 45 mmol, As directed PRN ALLERGIES: He is allergic to breo ellipta [fluticasone furoate-vilanterol] and codeine. PRIOR TO HOSPITALIZATION MEDS: Prior to Admission Medications Prescriptions Last Dose Informant Patient Reported? Taking? Alcohol Swabs 70 % Pads No No Si Each by Unknown route 2 times daily. Calcium Citrate-Vitamin D 315-200 MG-UNIT tablet No No Sig: Take 1 tablet by mouth every 12 hours. Gabapentin 400 MG capsule No No Sig: TAKE 1 CAPSULE BY MOUTH EVERY MORNING, TAKE 2 CAPSULES BY MOUTH EVERY AFTERNOON and TAKE 1 CAPSULE BY MOUTH EVERY EVENING Lancets Misc No No Si Each by Unknown route 2 times daily. Rosuvastatin 10 MG tablet No No Sig: Take 1 tablet by mouth daily. SITagliptin (Januvia) 100 MG tablet No No Sig: Take 1 tablet by mouth daily. acetaminophen 325 MG tablet No No Sig: Take 2 tablets by mouth every 6 hours as needed for mild or moderate pain. alendronate 70 MG tablet No No Sig: Take 1 tablet by mouth every 7 days. amLODIPine 5 MG tablet No No Sig: Take 1 tablet by mouth daily. aspirin (RA Aspirin Adult Low Dose) 81 MG Chew Tab chewable tablet No No Sig: Chew 1 tablet daily. azithromycin 250 MG tablet No No Sig: Take 1 tablet by mouth every Tuesday, Tuesday and Tuesday. carveDILOL 25 MG tablet No No Sig: Take 1 tablet by mouth 2 times daily. ergocalciferol 1.25 MG (69974 UT) capsule No No Sig: Take 1 capsule by mouth once a week. glucose blood test strips (Navendisuch Ultra) Strip strip No No Si strips by Instructed route 2 times daily. magnesium oxide 400 MG tablet No No Sig: Take 2 tablets by mouth every 12 hours. multivitamin (multivitamin) tablet No No Sig: Take 1 tablet by mouth daily. mycophenolate mofetil (CELLCEPT) 250 MG capsule No No Sig: Take 4 capsules by mouth every 12 hours. oxybutynin CR 10 MG Tab SR 24 HR tablet Yes No Sig: Take 1 tablet by mouth daily. pantoprazole [address] tablet DR No No Sig: Take 1 tablet by mouth 2 times daily. predniSONE 5 MG tablet No No Sig: take 1 tablet by mouth daily sulfamethoxazole-trimethoprim 800-160 MG per tablet No No Sig: Take 1 tablet by mouth three times a week. tacrolimus (PROGRAF) 0.5 MG capsule No No Sig: Take 1 capsule by mouth daily every morning AND 1 capsule every evening. Facility-Administered Medications: None REVIEW OF SYSTEMS [x] Unable to obtain review of systems. Reason: Intubated, sedated OBJECTIVE Vital Signs (24hrs): Temp: [98.2 F (36.8 C)-99 F (37.2 C)] 98.6 F (37 C) Pulse (Heart Rate): [67-88] 86 Resp Rate: [18-29] 23 BP: (99-156)/(57-82) 156/80 O2 Sat (%): [98 %-100 %] 98 % Weight: [92.4 kg (203 lb 11.3 oz)] 92.4 kg (203 lb 11.3 oz) Hemodynamic/Invasive Device Data (24 hrs): Pulmonary/Cardiac Hemodynamics Pulse (Heart Rate): 86 BSA (Calculated - sq m): 2.15 m2 Neuro ICP/CPP Monitoring MAP (mmHg): (!) 111 mmHg Neuro ICP/CPP Monitoring 2 MAP (mmHg): (!) 111 mmHg Ventilation/Oxygen Therapy (24hrs): Oxygen Therapy O2 Sat (%): 98 % O2 Device: ventilator (mechanical ventilation) Oxygen Concentration (%): 30 Ventilator Settings and Monitoring (Adult/Peds) Ventilator Type: R860 Ventilator/Non-Ventilator Mode: A/C PRVC Set/Target Tidal Volume: 475 mL/kg IBW Tidal Volume: 6.12 Set Respiratory Rate/Release Rate: 18 Total Respiratory Rate: 20 PEEP (cm H2O): 8 Peak Inspiratory Pressure (cmH2O): 17 I:E Ratio: 1:2.3 Oxygen Delivery/Consumption Hemodynamics BSA (Calculated - sq m): 2.15 m2 Neuro-Cognitive Assessment/Scores Level Of Consciousness: sedated Orientation: other (see comments) (GWEN) Lines/Drains/Airways/Wounds: Patient Lines/Drains/Airways Status Active Lines, Drains, Airways, & Wound Overview Name Placement date Placement time Site Days Percutaneous Central Line - Triple Lumen 05/16/23199905/16/231999 -- less than 1 Indwelling Urethral Catheter 05/16/23189905/16/231899 -- less than 1 Naso/Oral Tube 05/16/23199905/16/231999 -- less than 1 Airway Subglottic Suction ETT -- -- -- -- Fluid Management (24hrs): -Intake/Output last 3 shifts: I/O last 3 completed shifts: In: - Out: 300 [Urine:300] -Intake/Output this shift: No intake/output data recorded. Physical Exam: Constitutional: male, somnolent, in no acute distress Head: Normocephalic and atraumatic. Eyes: Conjunctivae normal, pupils sluggish but reactive to light Neck: supple, no JVD Mouth/Throat: Oropharynx is clear and moist. Cardiovascular: Normal rate, regular rhythm, normal heart sounds; Respiratory: auscultation: clear lung schulz bilaterally Abdominal: Soft, non-tender, bowel sounds are normal Musculoskeletal: no edema Neurological: sedated, not able to participate in exam. Withdraws to pain in all extremities, reflexes intact. Skin: warm and dry. No rash, erythema or pallor noted. DIAGNOSTIC RESULTS/PROCEDURES Labs-ABGs pH/PCO2/PO2/HCO3: 7.35/38/45/21 (05/16 2009) Labs-CBC WBC/Hgb/Hct/Plts: 6.74/12.1/38.5/152 (05/16 2009) Labs-Chem 7([facility]) Bun/Creat/Cl/CO2/Glucose: 7/0.71/112/18/100 (05/16 2009-05/16 2028) Na/K+/Phos/Mg/Ca: 141/3.7/2.3/1.9/-- (05/16 2009) Labs-Coags Ptt/Pt/Inr: 30.6/14.1/1.1 (05/16 2009) Consults/Procedures: IP CONSULT TO NUTRITION IP CONSULT TO PHYSICAL THERAPY IP CONSULT TO OCCUPATIONAL THERAPY IP CONSULT TO NEUROLOGY IP CONSULT TO LUNG - TRANSPLANT ASSESSMENT AND PLAN Nick Hernández is a 63 y.o. male with a past medical history of bilateral lung transplant (2018, following longstanding hx of COPD), CAD, HTN, DM. He presents with a one day history of acutely altered mental status, in the setting of 3 months of slowly progressive personality changes. Acute encephalopathy C/f status epilepticus Subjective hx from of worsening mental status . CT head negative for acute process at OSH. LP obtained, glucose 62, protein 83, WBC 1. CSF studies pending. MRI Brain obtained, significant for diminished cerebral volume and evidence of chronic white matter small vessel ischemic change without acute intracranial abnormality, paranasal sinus disease, and small bilateral mastoid effusions. Upon arrival to [facility], CSF studies were not initially visible in the chart, so meningitic coverage initially started with meropenem, acyclovir, ampicillin. Vancomycin not ordered as MRSA negative at OSH. - Neurology consulted, following > ammonia, UDS, serum tox screen > TSH, folate, vitamin B1, vitamin B12, lactate, CK > autoimmune encephalopathy, paraneoplastic panels > lyme AB > HIV1/2, Syphilis, MMA > cEEG > CTH, CTA - meningitic coverage initially started with meropenem, acyclovir, ampicillin; partially discontinued per results of CSF studies - follow up OSH infectious workup - propofol gtt Acute hypoxic respiratory failure, intubated for airway protection S/p bilateral lung transplant for end stage COPD 12/11/2018 Chronic R hemidiaphragm paralysis B/l lung transplant at [facility] on 12/11/2018, follows with Dr. Espino at [facility]. 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 Bronch with BAL performed at OSH --> PNA PCR, respiratory culture pending. Limited viral respiratory panel negative at OSH including covid, human metapneumo, paraflu. Procal negative 0.06 at OSH. - transplant team consulted, appreciate recs - goal tacro level 4-6 per outpt transplant notes - Per OSH records have been holding home tacrolimus and Cellcept due to ISAIAS/concern for possible toxicity. Cont prednisone 5 mg/day. - continue bactrim and azithro ppx - abx as above - follow up LRCx, BAL studies obtained at OSH - per report, blood cultures obtained at OSH, however these were not visible in care everywhere, so repeat ISAIAS, improving Baseline Cr ~1.0-1.1, on admission at OSH was noted at 1.6. Suspect prerenal given resolution with IVF at OSH. Urine lytes and osms obtained at OSH with FeNa 0.7% at that time. - daily chem, renal protective measures Hyperglycemia History of prediabetes Last a1c 5.9%. Home regimen includes sitagliptin - SSI regular while on TF Acute normocytic anemia Baseline hgb ~14. Less concern for acute bleed at this time given hemodynamic instability, absence of melena or other red flag symptoms. Transfusion goals hgb >7, plt >50 or >10 in the setting of acute bleed. - daily cbc, trend FEN: NPO with meds. Strict I/O. Replete electrolytes per ICU protocol. PPX: DVT: lovenox Code Status: FULL This plan was discussed with Dr. Gerardo Leslie, the overnight fellow collection agent for the MICU. Jesika Ireland MD Internal Medicine / Pediatrics PGY-2 documented in this encounter [facility] 05-16-2023 History and physical note MICU HISTORY AND PHYSICAL IDENTIFYING INFORMATION PATIENT: Nick Hernández ADMIT DATE: 05/16/2023 TIME OF EVALUATION: 05/17/2023 4:00 AM HOSPITAL STAY: LOS: 1 day CHIEF COMPLAINT Altered mental status HISTORY OF PRESENT ILLNESS Nick Hernández is a 63 y.o. male with a past medical history of bilateral lung transplant (2019, following longstanding hx of COPD), CAD, HTN, DM. He presents with a one day history of acutely altered mental status, in the setting of 3 months of slowly progressive personality changes. Per OSH chart review: Per pt's over the past 3 months the pt has lost about 25 lbs and then over the past month his personality has slowly changed. The describes his changes as him getting more angry and forgetful. 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 Earlier on day of admission to OSH ([facility]) the noticed he was acting himself, but after climbing out of the well and started having SOB and became agitated and altered. The called the transplant team at [facility] who recommended they go to his local ED for evaluation. While they were driving to the hospital the said that he was yelling at her. When they arrived at [facility] ED he became unresponsive in the car with agonal breathing. The ED team was able to take the pt out of the car and place him on the sidewalk. They started ventilating with BVM. He did become more responsive, but started having seizure like activity. He was intubated at that time and treated for presumed seizure with Versed [address] head and CTA C/A/P showed some atelectasis vs infiltrate in the RLL and no other acute changes. He was then transported to an ED room where he started having more seizure activity. For which he received Keppra load and Propofol and Versed gtt along with the Fentanyl gtt. Before the propofol and versed gtt were started he was given another 6 mg of Versed for his seizure activity. He was admitted to the ICU for further management. At OSH, Chem notable for Na 137, K 3.5, Cr 0.99. CBC with WBC 7.4, Hgb 12.1, Platelets 158. Procal 0.06. Troponin < 0.012. Urinalysis unremarkable. At the OSH, bronch and BAL were performed, with BAL and LRCx studies pending. RVP and MRSA nares reportedly negative. LP obtained, glucose 62, protein 83, CSF studies pending. MRI Brain obtained, significant for diminished cerebral volume and evidence of chronic white matter small vessel ischemic change without acute intracranial abnormality, paranasal sinus disease, and small bilateral mastoid effusions. Pt was subsequently transferred to OS for further management and access to the [facility] transplant team. Upon arrival to the MICU, per nursing report, pt withdrawing to pain in all extremities, reflexes intact, pupils reactive to light. Propofol briefly paused, during which time pt became extremely agitated and restless, so propofol was restarted. Na 141, K 3.7, Cr 0.71. WBC 6.74, Hgb 12.1, Platelet 152. Troponin 4 ng/L, BNP 50. Procalcitonin 0.06, Lactate 1.0. Ammonia 32. Pt's and legal next of kin, Sulma Hernández, at bedside. 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 BRONCHOSCOPY [place] HIP SURGERY Right 03/06/2020 BRONCHOSCOPY W/ TRANSBRONCHIAL BX SINGLE LOBE Bilateral 12/11/2019 Laterality: Bilateral; Surgeon: Akbar Davis DO; Location: [facility] BRONCHOSCOPY [place] BRONCHOSCOPY W/ TUMOR DESTRUCTION OR STENOSIS RELIEF Bilateral 12/11/2019 Laterality: Bilateral; Surgeon: Duke Reyes MD; Location: [facility] BRONCHOSCOPY [place] BRONCHOSCOPY W/ TUMOR DESTRUCTION OR STENOSIS RELIEF Bilateral 09/04/2019 Laterality: Bilateral; Surgeon: Akbar Davis DO; Location: [facility] BRONCHOSCOPY [place] BRONCHOSCOPY W/ TUMOR DESTRUCTION OR STENOSIS RELIEF Bilateral 07/17/2019 Laterality: Bilateral; Surgeon: Nick Lopez MD; Location: [facility] BRONCHOSCOPY [place] BRONCHOSCOPY W/ TUMOR DESTRUCTION OR STENOSIS RELIEF Right 05/22/2019 Laterality: Right; Surgeon: Josie Pyle DO; Location: [facility] BRONCHOSCOPY [place] BRONCHOSCOPY FLEXIBLE W/ TRACHEAL BRONCHIAL DILATION AND/OR STENT PLAC Right 05/22/2019 Laterality: Right; Surgeon: Josie Pyle DO; Location: [facility] BRONCHOSCOPY [place] BRONCHOSCOPY W/ TUMOR DESTRUCTION OR STENOSIS RELIEF Bilateral 04/10/2019 Laterality: Bilateral; Surgeon: Matthew Davila MD, PhD; Location: [facility] BRONCHOSCOPY [place] BRONCHOSCOPY W/ TRANSBRONCHIAL BX SINGLE LOBE Bilateral 03/13/2019 Laterality: Bilateral; Surgeon: Matthew Davila MD, PhD; Location: [facility] BRONCHOSCOPY [place] BRONCHOSCOPY W/ TRANSBRONCHIAL BX SINGLE LOBE N/A 02/06/2019 Laterality: N/A; Surgeon: Matthew Davila MD, PhD; Location: [facility] BRONCHOSCOPY [place] BRONCHOSCOPY FLEXIBLE W/ BRONCHIAL ALVEOLAR LAVAGE Bilateral 12/26/2018 Laterality: Bilateral; Surgeon: Nick Lopez MD; Location: [facility] BRONCHOSCOPY TRANSPLANT LUNG DOUBLE W/ BYPASS Bilateral 12/11/2018 Laterality: Bilateral; Surgeon: James Reyna MD, PhD, MPH; Location: [facility] MAIN OR ORIF WRIST TONSILLECTOMY VERTEBROPLASTY PERCUTANEOUS LUMBAR SINGLE VERTEBRAL BODY Family History Problem Relation Age of Onset Heart Failure Mother Myocardial Infarction Father Other - Specify Brother Polio Stroke Sister Emphysema Sister Social History Socioeconomic History Marital status: Tobacco Use Smoking status: Former Packs/day: 1.50 Years: 30.00 Total pack years: 45.00 Types: Cigarettes Quit date: 11/2015 Years since quittin.5 Smokeless tobacco: Never Vaping Use Vaping Use: Never used Substance and Sexual Activity Alcohol use: No Comment: Past use with history of DUI Drug use: No MEDICATIONS SCHEDULED: Azithromycin (ZITHROMAX) tablet 250 mg, 250 mg, Q MWF chlorhexidine (PERIDEX) 0.12 % oral solution 15 mL, 15 mL, Q12H Enoxaparin Sodium (LOVENOX) injection 40 mg, 40 mg, Q24H Meropenem (MERREM) 2 g in Sodium chloride 0.9%, with overfill 110 mL (total volume) IVPB, 2 g, Q8HNS Multi-Vitamins tablet 1 tablet, 1 tablet, Daily Pantoprazole (PROTONIX) tablet DR 40 mg, 40 mg, BID predniSONE (DELTASONE) tablet 5 mg, 5 mg, Daily [START ON 05/18/2023] Sulfamethoxazole-trimethoprim (BACTRIM DS) 800-160 MG per tablet 1 tablet, 1 tablet, Once per day on Tue FLUIDS/DRIPS: Lactated ringers 100 mL/hr at 05/16/23 2252 Propofol 50 mcg/kg/min (05/17/23 0316) PRNs: Magnesium Sulfate IVPB, 4 g, As directed PRN potassium chloride, 20 mEq, As directed PRN Or Potassium chloride, 20 mEq, As directed PRN Or Potassium Bicarb-Citric Acid, 20 mEq, As directed PRN Or potassium chloride, 10 mEq, As directed PRN Sodium chloride 0.9%, 250 mL, PRN Sodium Phosphate IVPB, 30 mmol, As directed PRN Or Sodium Phosphate IVPB, 45 mmol, As directed PRN ALLERGIES: He is allergic to breo ellipta [fluticasone furoate-vilanterol] and codeine. PRIOR TO HOSPITALIZATION MEDS: Prior to Admission Medications Prescriptions Last Dose Informant Patient Reported? Taking? Alcohol Swabs 70 % Pads No No Si Each by Unknown route 2 times daily. Calcium Citrate-Vitamin D 315-200 MG-UNIT tablet No No Sig: Take 1 tablet by mouth every 12 hours. Gabapentin 400 MG capsule No No Sig: TAKE 1 CAPSULE BY MOUTH EVERY MORNING, TAKE 2 CAPSULES BY MOUTH EVERY AFTERNOON and TAKE 1 CAPSULE BY MOUTH EVERY EVENING Lancets Misc No No Si Each by Unknown route 2 times daily. Rosuvastatin 10 MG tablet No No Sig: Take 1 tablet by mouth daily. SITagliptin (Januvia) 100 MG tablet No No Sig: Take 1 tablet by mouth daily. acetaminophen 325 MG tablet No No Sig: Take 2 tablets by mouth every 6 hours as needed for mild or moderate pain. alendronate 70 MG tablet No No Sig: Take 1 tablet by mouth every 7 days. amLODIPine 5 MG tablet No No Sig: Take 1 tablet by mouth daily. aspirin (RA Aspirin Adult Low Dose) 81 MG Chew Tab chewable tablet No No Sig: Chew 1 tablet daily. azithromycin 250 MG tablet No No Sig: Take 1 tablet by mouth every Tuesday, Tuesday and Tuesday. carveDILOL 25 MG tablet No No Sig: Take 1 tablet by mouth 2 times daily. ergocalciferol 1.25 MG (10419 UT) capsule No No Sig: Take 1 capsule by mouth once a week. glucose blood test strips (Navendisuch Ultra) Strip strip No No Si strips by Instructed route 2 times daily. magnesium oxide 400 MG tablet No No Sig: Take 2 tablets by mouth every 12 hours. multivitamin (multivitamin) tablet No No Sig: Take 1 tablet by mouth daily. mycophenolate mofetil (CELLCEPT) 250 MG capsule No No Sig: Take 4 capsules by mouth every 12 hours. oxybutynin CR 10 MG Tab SR 24 HR tablet Yes No Sig: Take 1 tablet by mouth daily. pantoprazole [address] tablet DR No No Sig: Take 1 tablet by mouth 2 times daily. predniSONE 5 MG tablet No No Sig: take 1 tablet by mouth daily sulfamethoxazole-trimethoprim 800-160 MG per tablet No No Sig: Take 1 tablet by mouth three times a week. tacrolimus (PROGRAF) 0.5 MG capsule No No Sig: Take 1 capsule by mouth daily every morning AND 1 capsule every evening. Facility-Administered Medications: None REVIEW OF SYSTEMS [x] Unable to obtain review of systems. Reason: Intubated, sedated OBJECTIVE Vital Signs (24hrs): Temp: [98.2 F (36.8 C)-99 F (37.2 C)] 98.6 F (37 C) Pulse (Heart Rate): [67-88] 86 Resp Rate: [18-29] 23 BP: (99-156)/(57-82) 156/80 O2 Sat (%): [98 %-100 %] 98 % Weight: [92.4 kg (203 lb 11.3 oz)] 92.4 kg (203 lb 11.3 oz) Hemodynamic/Invasive Device Data (24 hrs): Pulmonary/Cardiac Hemodynamics Pulse (Heart Rate): 86 BSA (Calculated - sq m): 2.15 m2 Neuro ICP/CPP Monitoring MAP (mmHg): (!) 111 mmHg Neuro ICP/CPP Monitoring 2 MAP (mmHg): (!) 111 mmHg Ventilation/Oxygen Therapy (24hrs): Oxygen Therapy O2 Sat (%): 98 % O2 Device: ventilator (mechanical ventilation) Oxygen Concentration (%): 30 Ventilator Settings and Monitoring (Adult/Peds) Ventilator Type: R860 Ventilator/Non-Ventilator Mode: A/C PRVC Set/Target Tidal Volume: 475 mL/kg IBW Tidal Volume: 6.12 Set Respiratory Rate/Release Rate: 18 Total Respiratory Rate: 20 PEEP (cm H2O): 8 Peak Inspiratory Pressure (cmH2O): 17 I:E Ratio: 1:2.3 Oxygen Delivery/Consumption Hemodynamics BSA (Calculated - sq m): 2.15 m2 Neuro-Cognitive Assessment/Scores Level Of Consciousness: sedated Orientation: other (see comments) (GWEN) Lines/Drains/Airways/Wounds: Patient Lines/Drains/Airways Status Active Lines, Drains, Airways, & Wound Overview Name Placement date Placement time Site Days Percutaneous Central Line - Triple Lumen 05/16/23199905/16/231999 -- less than 1 Indwelling Urethral Catheter 05/16/23189905/16/231899 -- less than 1 Naso/Oral Tube 05/16/23199905/16/231999 -- less than 1 Airway Subglottic Suction ETT -- -- -- -- Fluid Management (24hrs): -Intake/Output last 3 shifts: I/O last 3 completed shifts: In: - Out: 300 [Urine:300] -Intake/Output this shift: No intake/output data recorded. Physical Exam: Constitutional: male, somnolent, in no acute distress Head: Normocephalic and atraumatic. Eyes: Conjunctivae normal, pupils sluggish but reactive to light Neck: supple, no JVD Mouth/Throat: Oropharynx is clear and moist. Cardiovascular: Normal rate, regular rhythm, normal heart sounds; Respiratory: auscultation: clear lung schulz bilaterally Abdominal: Soft, non-tender, bowel sounds are normal Musculoskeletal: no edema Neurological: sedated, not able to participate in exam. Withdraws to pain in all extremities, reflexes intact. Skin: warm and dry. No rash, erythema or pallor noted. DIAGNOSTIC RESULTS/PROCEDURES Labs-ABGs pH/PCO2/PO2/HCO3: 7.35/38/45/21 (05/16 2009) Labs-CBC WBC/Hgb/Hct/Plts: 6.74/12.1/38.5/152 (05/16 2009) Labs-Chem 7([facility]) Bun/Creat/Cl/CO2/Glucose: 7/0.71/112/18/100 (05/16 2009-05/16 2028) Na/K+/Phos/Mg/Ca: 141/3.7/2.3/1.9/-- (05/16 2009) Labs-Coags Ptt/Pt/Inr: 30.6/14.1/1.1 (05/16 2009) Consults/Procedures: IP CONSULT TO NUTRITION IP CONSULT TO PHYSICAL THERAPY IP CONSULT TO OCCUPATIONAL THERAPY IP CONSULT TO NEUROLOGY IP CONSULT TO LUNG - TRANSPLANT ASSESSMENT AND PLAN Nick Hernández is a 63 y.o. male with a past medical history of bilateral lung transplant (2018, following longstanding hx of COPD), CAD, HTN, DM. He presents with a one day history of acutely altered mental status, in the setting of 3 months of slowly progressive personality changes. Acute encephalopathy C/f status epilepticus Subjective hx from of worsening mental status . CT head negative for acute process at OSH. LP obtained, glucose 62, protein 83, WBC 1. CSF studies pending. MRI Brain obtained, significant for diminished cerebral volume and evidence of chronic white matter small vessel ischemic change without acute intracranial abnormality, paranasal sinus disease, and small bilateral mastoid effusions. Upon arrival to [facility], CSF studies were not initially visible in the chart, so meningitic coverage initially started with meropenem, acyclovir, ampicillin. Vancomycin not ordered as MRSA negative at OSH. - Neurology consulted, following > ammonia, UDS, serum tox screen > TSH, folate, vitamin B1, vitamin B12, lactate, CK > autoimmune encephalopathy, paraneoplastic panels > lyme AB > HIV1/2, Syphilis, MMA > cEEG > CTH, CTA - meningitic coverage initially started with meropenem, acyclovir, ampicillin; partially discontinued per results of CSF studies - follow up OSH infectious workup - propofol gtt Acute hypoxic respiratory failure, intubated for airway protection S/p bilateral lung transplant for end stage COPD 12/11/2018 Chronic R hemidiaphragm paralysis B/l lung transplant at [facility] on 12/11/2018, follows with Dr. Espino at [facility]. 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 Bronch with BAL performed at OSH --> PNA PCR, respiratory culture pending. Limited viral respiratory panel negative at OSH including covid, human metapneumo, paraflu. Procal negative 0.06 at OSH. - transplant team consulted, appreciate recs - goal tacro level 4-6 per outpt transplant notes - Per OSH records have been holding home tacrolimus and Cellcept due to ISAIAS/concern for possible toxicity. Cont prednisone 5 mg/day. - continue bactrim and azithro ppx - abx as above - follow up LRCx, BAL studies obtained at OSH - per report, blood cultures obtained at OSH, however these were not visible in care everywhere, so repeat ISAIAS, improving Baseline Cr ~1.0-1.1, on admission at OSH was noted at 1.6. Suspect prerenal given resolution with IVF at OSH. Urine lytes and osms obtained at OSH with FeNa 0.7% at that time. - daily chem, renal protective measures Hyperglycemia History of prediabetes Last a1c 5.9%. Home regimen includes sitagliptin - SSI regular while on TF Acute normocytic anemia Baseline hgb ~14. Less concern for acute bleed at this time given hemodynamic instability, absence of melena or other red flag symptoms. Transfusion goals hgb >7, plt >50 or >10 in the setting of acute bleed. - daily cbc, trend FEN: NPO with meds. Strict I/O. Replete electrolytes per ICU protocol. PPX: DVT: lovenox Code Status: FULL This plan was discussed with Dr. Gerardo Leslie, the overnight fellow collection agent for the MICU. Jesika Ireland MD Internal Medicine / Pediatrics PGY-2 documented in this encounter [facility] 05-16-2023 Hospital Discharge instructions Fermin Miller RN - 05/16/2023 5:42 PM EDT Continuity of Care Form Patient Name: Nick Hernández : 1960 Admit date: 05/15/2023 Discharge date: 05/16/2023 Code Status Order: Full Code Advance Directives: N Admitting Physician: Kathleen Rodas DO PCP: LIANA LOJA Discharging Nurse: Fermin Miller Discharging Hospital Unit/Room#: T3-310/T3-310 A Discharging Unit Phone Number: Emergency Contact: Extended Emergency Contact Information Primary Emergency Contact: Sulma Hernández Relation: Spouse Past Surgical History: Past Surgical History: Procedure Laterality Date JOINT REPLACEMENT LUNG TRANSPLANT, DOUBLE Bilateral WRIST SURGERY Immunization History: Immunization History Administered Date(s) Administered Moderna SARS-CoV-2 Vaccination 01/09/2021, 02/06/2021, 10/16/2021 Tdap 02/20/2021 Active Problems: Medical Problems Problem List * (Principal) Acute respiratory failure with hypoxia and hypercapnia (CMS/HCC) (HCC) Left eyelid laceration CAD (coronary artery disease) Overview Signed 07/30/2022 1:48 AM by Interface, Incoming Problems- [facility] Conversion non-obstructive Isolation/Infection: Droplet Meningitis rule out Nurse Assessment: Last Vital Signs: BP 100/84 Pulse 64 Temp 36.3 C (97.3 F) Resp 15 Ht 1.829 m (6') Wt 90 kg (198 lb 6.6 oz) SpO2 100% BMI 26.91 kg/m Last documented pain score (0-10 scale): Last Weight: Wt Readings from Last 1 Encounters: 05/16/23 90 kg (198 lb 6.6 oz) Mental Status: {LIANNE Patient Mental Status:08800} IV Access: {LIANNE IV Access:87201} Nursing Mobility/ADLs: Walking {LUKE ADL:30651:: Independent } Transfer {LUKE ADL:88947:: Independent } Bathing {LUKE ADL:41736:: Independent } Dressing {LUKE ADL:65427:: Independent } Toileting {LUKE ADL:57494:: Independent } Feeding {LUKE ADL:16780:: Independent } Reservations Sales Agent {LUKE ADL:92761:: Independent } Med Delivery {yes/no:91807} Wound Care Documentation and Therapy: Wound/Incision 05/15/23 Traumatic Sacrum (Active) Number of days: 0 Elimination: Continence: Bowel: {yes/no:19919} Bladder: {yes/no:98111} Urinary Catheter: {LIANNE Urinary Catheter:92697} Colostomy/Ileostomy/Ileal Conduit: {YES / NO:} Date of Last BM: Intake/Output Summary (Last 24 hours) at 05/16/2023 1741 Last data filed at 05/16/2023 1700 Gross per 24 hour Intake 463.68 ml Output 550 ml Net -86.32 ml I/O last 3 completed shifts: In: 258.4 (2.9 mL/kg) [I.V.:258.4 (2.9 mL/kg)] Out: - (0 mL/kg) Weight: 90 kg Safety Concerns: {LIANNE Safety Concerns:36645} Impairments/Disabilities: {LIANNE Impairments/Disabilities:73148} Nutrition Therapy: Current Nutrition Therapy: {LIANNE Diet List:76200} Routes of Feeding: {routes of feedin} Liquids: {liquid consistency:07545} Daily Fluid Restriction: {daily fluid restriction:57875} Last Modified Barium Swallow with Video (Video Swallowing Test): {done not done:76147} Treatments at the Time of Hospital Discharge: Respiratory Treatments: Oxygen Therapy: {Therapy; copd oxygen:22383} Ventilator: {LIANNE Ventilator:21962} Rehab Therapies: {GEN THERAPY DISCIPLINE SCAL:2211734} Weight Bearing Status/Restrictions: {POD WEIGHT BEARIN} Other Medical Equipment (for information only, NOT a DME order): {Assistive Devices DME:99713} Other Treatments: Patient's personal belongings (please select all that are sent with patient): {LIANNE Patient Belongings:87840} RN SIGNATURE: {E-signature:61243} CASE MANAGEMENT/SOCIAL WORK SECTION Inpatient Status Date: Readmission Risk Assessment Score: @READMISSIONRISKDETAILS@ Discharging to Facility/ Agency Name: Address: Phone: Fax: Dialysis Facility (if applicable) Name: Address: Dialysis Schedule: Phone: Fax: [employer]/Javascript Application Developer signature: {E-signature:67277} PHYSICIAN SECTION Prognosis: {Rehab Prognosis:27751} Condition at Discharge: unstable Rehab Potential (if transferring to Rehab): {Rehab Prognosis:27767} Recommended Labs or Other Treatments After Discharge: Physician Certification: I certify the above information and transfer of Nick Hernández is necessary for the continuing treatment of the diagnosis listed and that he requires {LIANNE Level of Care:36639} for {greater less than:31852} 30 days. Update Admission H&P: {LIANNE Changes in H&P:09337} PHYSICIAN SIGNATURE: {E-signature:04009} documented in this encounter [facility] 05-16-2023 Plan of care note Problem: Safety - Medical Restraint Goal: Remains free of injury from restraints (Restraint for Interference with Wrecker Operator) Outcome: Completed Goal: Free from restraint(s) (Restraint for Interference with Wrecker Operator) Outcome: Adequate for Discharge Problem: Problem Interventions Goal: Assess Nutritional Intake Outcome: Adequate for Discharge Problem: Knowledge Deficit Goal: Patient/family/caregiver demonstrates understanding of disease process, treatment plan, medications, and discharge instructions Outcome: Adequate for Discharge Problem: Potential for Compromised Skin Integrity Goal: Skin Integrity is Maintained or Improved Outcome: Adequate for Discharge Goal: Nutritional status is improving Outcome: Adequate for Discharge Problem: Urinary Incontinence Goal: Perineal skin integrity is maintained or improved Outcome: Adequate for Discharge [facility] 05-16-2023 Miscellaneous Notes Problem: Safety - Medical Restraint Goal: Remains free of injury from restraints (Restraint for Interference with Wrecker Operator) Outcome: Completed Goal: Free from restraint(s) (Restraint for Interference with Wrecker Operator) Outcome: Adequate for Discharge Problem: Problem Interventions Goal: Assess Nutritional Intake Outcome: Adequate for Discharge Problem: Knowledge Deficit Goal: Patient/family/caregiver demonstrates understanding of disease process, treatment plan, medications, and discharge instructions Outcome: Adequate for Discharge Problem: Potential for Compromised Skin Integrity Goal: Skin Integrity is Maintained or Improved Outcome: Adequate for Discharge Goal: Nutritional status is improving Outcome: Adequate for Discharge Problem: Urinary Incontinence Goal: Perineal skin integrity is maintained or improved Outcome: Adequate for Discharge Spoke with [facility] transfer line [phone] to clarify pt admission. Accepting physician is Dr Barbosa, pt room number will be Rm [id number] and RN to RN report number [phone], pt can be transferred whenever testing completed and, per physician recommendations, air transport can be set up. Spoke with Ar at [facility] [phone] regarding pt transfer from [facility] to [facility]. As soon as pt testing has been completed [facility] is to be notified. It will take approximately 15-20 min to arrive and 45 min to get to destination, availability of crew pending. Facesheet faxed to [phone] Attn: Ar. Information provided to bedside RN and resident. TCC will follow. The patient is Moderately Stable - Low risk of patient condition declining or worsening The patient's goals for the shift include GWEN the patient is intubated and sedated The clinical goals for the shift include Improved vitals and clinical status Over the shift, the patient did not make progress toward the following goals. Barriers to progression include the patient is intubated and sedated. Recommendations to address these barriers include teaching and reminding the patient of the importance of his lines and ETT and why he cannot remove them. Associated Order(s): Intubation Procedure Intubation Performed by: Dionicio Stout II, MD Authorized by: Audra Chavarria DO Consent: Consent was not able to be obtained because the procedure was emergent or the patient was unable to give consent and a surrogate decision maker was not available. Timeout: Completed immediately prior to the start of the procedure which included verification of the correct patient, correct site and agreement on the procedure to be done. Anesthetic: Local anesthetic used: not applicable Indications: Indications: altered consciousness Preparation: Assessment: Unstable dentition Mallampati score: Emergent not performed Neck mobility: Normal Pharmacologic strategy: rapid sequence Induction agents: Etomidate Paralytics: Rocuronium Procedure details: Preoxygenation: Bag valve mask CPR in progress: no Total number of attempts: 1 Successful intubation details: Intubation method: Oral Intubation technique: video-assisted Laryngoscope blade: Hyperangulated Bougie used: no Cormack-Lehane view: II Tube size (mm): 7.5 Tube type: Cuffed Placement assessment: ETT at lip (cm): 25 Tube secured with: Adhesive tape Breath sounds: Equal Placement verification: CXR verification Follow-up chest x-ray: Ordered Post-procedure: Estimated Blood Loss: None Specify complication(s): No apparent complications Dionicio Stout II, MD Resident 05/15/232157 documented in this encounter [facility] 05-16-2023 Nurse Note IR Procedures: This patient is here from [facility] for a lumbar puncture . Family verbalizes understanding of the procedural instructions. Family has been educated in regards to process, previous attempts have been made without success. History, allergies, medications and lab results reviewed. Informed consent obtained. Positioned patient on left side, prepped and draped in sterile fashion. 13mL of CSF collected and delivered to lab.Time out was performed. Patient is on a monitor, and intubated. Patient is accompanied at this time by and RT and LOSS PREVENTION INVESTIGATOR. Tolerated the procedure well. Will move patient back into bed and back to floor. [facility] 05-16-2023 Nurse Note IR Procedures: This patient is here from T[facility] for a lumbar puncture . Family verbalizes understanding of the procedural instructions. Family has been educated in regards to process, previous attempts have been made without success. History, allergies, medications and lab results reviewed. Informed consent obtained. Positioned patient on left side, prepped and draped in sterile fashion. 13mL of CSF collected and delivered to lab.Time out was performed. Patient is on a monitor, and intubated. Patient is accompanied at this time by and RT and LOSS PREVENTION INVESTIGATOR. Tolerated the procedure well. Will move patient back into bed and back to floor. documented in this encounter [facility] 05-16-2023 Consult note Associated Order (s): IP CONSULT TO INFECTIOUS DISEASES Images from the original note were not included. 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 Pt's and son are at the bedside. Pt's reports he has been at his baseline health until 05/15. She states his sister thought he was more SOB on 05/12. He has been complaining of worsening back pain and has been waiting for an appt with Pain Management next month. 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 She denies any fevers, chills or sweats. No rashes. No headache. No weakness. Pt has been fixing their well and drove to [place] to get a pump, then to [place] to pick her up before going home to fix the well. Pt became upset when the pressure was too low to bring water into the house. Pt's states he was clammy and having cold sweats. He looked acutely pale. He told her he didn't feel well and reported burning chest pain with worsening SOB. He told her he needed to go to the hospital. She put him in her car because they lives so close to [facility] and drove him in. He insisted on getting cleaned up first. She reports he starting having seizures en route to the hospital and while the RN was getting a gurney to get him into the ED. He was intubated emergently for airway protection. Pt's reports over the last 6 months he has had personality changes. She state he is like two different people. It became so bad that at one point, he had alienated everyone in his family, but that has since improved. For the last 2 months, pt was convinced he had lice. Pt's reports he then had small whiteheads on his face, and pt went crazy, saying he had worms coming out of him. He was convinced they were bugs. Per , pt's has a very clear complexion. 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 The farm is a fully operational farm with pigs, donkeys, chickens, per pt's . She states she doesn't believe he came into close contact with the animals. He was present during a constitution party held there with several people. He told her there was a raw goat's head displayed on a stick. He told her there was blood everywhere. Pt does not castellon. He never mentioned being present for birthing or slaughtering animals. Pt never eats raw foods. He does eat bologna frequently Over the last month, pt has been eating food provided by the farm, but as far she knows, he was not eating unpasteurized dairy products. She states the farm is owned by a [place]ian family who would prepare traditional tacos for him. They have an indoor dog. reports no recent travel. 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 No other sick contacts. Pt has lost 25 pounds in the last 6 months, but she reports he has been trying because at his last Pulmonary follow up, his PFTs were down and his doctor was concerned it was due to his weight. Pt seen briefly before Transport arrived to take pt to Radiology and IR for planned MRI brain and LP. RN confirms pt is to be lifeflighted to [facility] later this evening. Past Medical History: Past Medical History: Diagnosis Date Diabetes mellitus (HCC) Past Surgical History: Past Surgical History: Procedure Laterality Date JOINT REPLACEMENT LUNG TRANSPLANT, DOUBLE Bilateral WRIST SURGERY Current Medications: Current Facility-Administered Medications Medication Dose Route Frequency Provider Last Rate Last Admin acetaminophen (Tylenol) tablet 1,000 mg 1,000 mg Oral q8h Derek Cordova DO Or Acetaminophen (Tylenol) 650 MG/20.3ML solution 1,000 mg 1,000 mg Per G Tube q8h Derek Cordova DO acyclovir (Zovirax) 950 mg in sodium chloride 0.9 % 150 mL IVPB 10 mg/kg IntraVENous q8h Oscar Chan MD Stopped at 05/16/23 1335 azithromycin (Zithromax) tablet 250 mg 250 mg Oral Once per day on Tue Derek Cordova DO 250 mg at 05/16/23 0958 chlorhexidine (Peridex) 0.12 % solution 15 mL 15 mL Mouth/Throat BID Oscar Chan MD 15 mL at 05/16/23 0932 enoxaparin (Lovenox) syringe 40 mg 40 mg SubCUTAneous Daily Derek Kecarmeloko, DO 40 mg at 05/16/23 0932 gabapentin (Neurontin) capsule 200 mg 200 mg Oral Daily Derek Kecarmeloko, DO levETIRAcetam (Keppra) 1,000 mg in sodium chloride 0.9 % 100 mL IVPB 1,000 mg IntraVENous BID Kathlene Rodas, DO Stopped at 05/16/23 1013 meropenem (Merrem) 2,000 mg in sodium chloride 0.9 % 100 mL IVPB 2,000 mg IntraVENous q8h Derek Paola, DO Stopped at 05/16/23 1330 [Held by provider] mycophenolate (Cellcept) capsule 1,000 mg 1,000 mg Oral BID Derek Kecarmeloko, DO ondansetron ODT (Zofran-ODT) disintegrating tablet 4 mg 4 mg Oral q8h PRN Derek Kepko, DO Or ondansetron (Zofran) injection 4 mg 4 mg IntraVENous q6h PRN Derek Kepko, DO pantoprazole (ProtoNix) injection 40 mg 40 mg IntraVENous q AM Derek Kepko, DO 40 mg at 05/16/23 0932 polyethylene glycol (PEG) 3350 (Miralax) packet 17 g 17 g Oral Daily PRN Derek Kepko, DO predniSONE (Deltasone) tablet 5 mg 5 mg Oral Daily Derek Kepko, DO 5 mg at 05/16/23 1044 propofol (Diprivan) infusion 5-50 mcg/kg/min IntraVENous Continuous Derek Kepko, DO 19.91 mL/hr at 05/16/23 1254 35 mcg/kg/min at 05/16/23 1254 sodium chloride 0.9% (NS) flush 5-40 mL 5-40 mL IntraCATHeter q8h Derek Kepko, DO 10 mL at 05/16/23 0959 sodium chloride 0.9% (NS) flush 5-40 mL 5-40 mL IntraVENous PRN Derek Kepko, DO sulfamethoxazole-trimethoprim (Bactrim DS) 800-160 MG per tablet 1 tablet 1 tablet Oral BID Derek Cordova, DO 1 tablet at 05/16/23 0958 [Held by provider] tacrolimus (Prograf) capsule 0.5 mg 0.5 mg Oral BID Derek Cordova, DO Allergies: Allergies Allergen Reactions Codeine Hives Fluticasone Other Fluticasone Furoate-Vilanterol Other and Shortness of breath Nsaids Other Due to lung transplant Vilanterol Unknown Wound Dressing Adhesive Hives Social History: Social History Socioeconomic History Marital status: Spouse name: Not on file Number of children: Not on file Years of education: Not on file Highest education level: Not on file Occupational History Not on file Tobacco Use Smoking status: Never Smokeless tobacco: Never Vaping Use Vaping Use: Never used Substance and Sexual Activity Alcohol use: Not on file Drug use: Not on file Sexual activity: Not on file Other Topics Concern Not on file Social History Narrative Not on file Social Determinants of Health Financial Resource Strain: Not on file Food Insecurity: Not on file Transportation Needs: Not on file Physical Activity: Not on file Stress: Not on file Social Connections: Not on file Intimate Partner Violence: Not on file Housing Stability: Not on file Family History: No family history on file. Review of Systems: Review of Systems Unable to perform ROS: Intubated Vitals: Patient Vitals for the past 24 hrs: BP Temp Temp src Pulse Resp SpO2 Height Weight 05/16/23 1400 101/60 36.3 C (97.3 F) -- 67 14 100 % -- -- 05/16/23 1300 118/82 36.1 C (97 F) -- 72 21 100 % -- -- 05/16/23 1200 112/64 36.1 C (97 F) Bladder 64 14 100 % -- -- 05/16/23 1100 105/66 36.1 C (97 F) -- 62 14 100 % -- -- 05/16/23 1000 119/64 -- -- 63 14 100 % -- -- 05/16/23 0900 99/76 (!) 35.8 C (96.4 F) Rectal 65 14 100 % -- -- 05/16/23 0810 -- -- -- -- -- -- 1.829 m (6') -- 05/16/23 0800 112/67 (!) 35.3 C (95.5 F) Temporal 71 14 100 % -- -- 05/16/2345 -- -- -- 69 14 100 % -- -- 05/16/23729 -- -- -- 65 14 100 % -- -- 05/16/23714 -- -- -- 64 14 100 % -- -- 05/16/23699 106/61 -- -- 61 14 100 % -- -- 05/16/23644 -- -- -- 59 16 100 % -- -- 05/16/23629 -- -- -- 72 19 100 % -- -- 05/16/23614 -- -- -- 63 14 100 % -- -- 05/16/23599 99/61 -- -- 63 14 100 % -- 90 kg (198 lb 6.6 oz) 05/16/23 0500 124/70 -- -- 68 14 100 % -- -- 05/16/23 0445 -- -- -- 60 14 100 % -- -- 05/16/23 0400 110/67 36.1 C (97 F) Temporal 63 14 100 % -- -- 05/16/23 0300 103/63 -- -- 69 14 100 % -- -- 05/16/23 0200 131/77 -- -- 66 14 100 % -- -- 05/16/23 0100 103/66 -- -- 59 14 100 % -- -- 05/16/23 0000 105/68 36.2 C (97.1 F) Temporal 66 14 100 % -- -- 05/15/23 2312 -- -- -- 68 14 100 % -- -- 05/15/23 2300 99/70 -- -- 72 14 100 % -- -- 05/15/23 2217 (!) 154/95 36.1 C (97 F) Temporal 98 17 100 % -- -- 05/15/232114 (!) 148/88 -- -- 80 18 100 % -- -- 05/15/232105 -- -- -- -- -- -- -- 94.8 kg (209 lb) 05/15/232004 -- -- -- -- -- -- -- 94.3 kg (207 lb 14.3 oz) 05/15/231955 (!) 148/89 36.4 C (97.5 F) Oral 83 14 100 % -- -- 05/15/23 193 (!) 132/90 -- -- 94 14 100 % -- -- 05/15/231924 -- -- -- 109 14 100 % -- -- 05/15/23 191 (!) 169/82 -- -- 108 -- 93 % -- -- 05/15/231908 (!) 171/79 -- -- 88 (!) 28 100 % -- -- 05/15/231906 -- 36.2 C (97.2 F) Axillary -- -- -- -- -- 05/15/231902 (!) 187/154 -- -- 91 24 100 % -- -- Physical Exam: Physical Exam Vitals and nursing note reviewed. Constitutional: General: He is not in acute distress. Appearance: He is ill-appearing. He is not toxic-appearing or diaphoretic. Comments: Intubated, sedated HENT: Head: Normocephalic and atraumatic. Comments: +EEG leads Right Ear: External ear normal. Left Ear: External ear normal. Nose: Nose normal. No rhinorrhea. Mouth/Throat: Mouth: Mucous membranes are dry. Comments: Limited exam Cardiovascular: Rate and Rhythm: Normal rate. Rhythm irregular. Heart sounds: Normal heart sounds. Pulmonary: Breath sounds: Rales present. No rhonchi. Comments: Effort per vent Abdominal: General: There is distension. Palpations: Abdomen is soft. There is no mass. Comments: No grimacing on exam, decreased bowel sounds Skin: General: Skin is warm and dry. Coloration: Skin is not jaundiced. Findings: No bruising, erythema or rash. Comments: Tanned skin Neurological: Comments: Intubated, sedated Psychiatric: Comments: Unable to assess Labs: Lab Results Component Value Date/Time NA 137 05/16/2023317 K 3.5 05/16/2023317 CL 111 (H) 05/16/2023317 CO2 21 (L) 05/16/2023317 BUN 16 05/16/2023317 CREATININE 0.99 05/16/2023 0318 CREATININE 1.12 11/24/2021 0940 GLUCOSE 98 05/16/20238 CALCIUM 8.3 (L) 05/16/2023 0318 PROT 5.9 (L) 05/16/2023 031 BILITOT 0.4 05/16/2023 0318 ALKPHOS 56 05/16/2023 0318 AST 30 05/16/2023 0318 ALT 27 05/16/2023 0318 PROCAL 0.06 05/15/2023 1908 Lab Results Component Value Date/Time WBC 7.4 05/16/2023 0318 HGB 12.4 05/16/2023 1320 HCT 38.2 (L) 05/16/2023317 PLT 158 05/16/2023317 GRANULOCYTES 67.5 04/26/2022 09 LYMPHOPCT 19.9 (L) 05/16/2023317 MONOPCT 8.8 05/16/2023317 LABEOS 1.6 04/26/202227 BASOPCT 0.3 05/16/2023317 NEUTROABS 5.2 05/16/2023 0318 Micro: 05/16 pneumonia PCR negative 05/16 respiratory gram stain negative, culture in progress 05/15 fungal blood cultures 2/2 in process 05/15 MRSA screen negative 05/15 blood culture 2/2 in process 05/15 Legionella, Pneumococcus urine antigens negative Lines: CVC TLC 05/16 ETT 05/15 Pretty catheter 05/15 Radiography/Echo/Other: 05/16 MRI brain pending 05/16 abdominal XR NG tube has its tip and sidehole located within the gastric body. Relative paucity of bowel gas without pathologically dilated loops of bowel. Elevation of the right hemidiaphragm with persistent bibasilar airspace disease. Postprocedural changes in the lumbar spine status post prior vertebroplasty. Vascular calcifications. 05/16 CXR Lines/Tubes: Status post endotracheal intubation with the tip of the ET tube in satisfactory position above the flavia. A right IJ central line has been introduced which follows the course of the brachiocephalic vein and SVC based on the earlier CT, with tip overlying the inferior aspect of the SVC. Heart/Mediastinum: Heart size is within normal limits, again with surgical clips near the flavia and left hilum. Lungs: Persistent right hemidiaphragm elevation and bibasilar atelectasis. No pneumothorax or pleural effusion. Bones: Unchanged 05/16 abdominal XR An OG tube is not identified. Cardiac monitoring device and pacer pads overlie the chest. There is an ETT and right IJ central line. Small amount of excreted contrast in the renal collecting systems and ureters from the earlier CT. Diffuse aortoiliac atherosclerotic calcification. Vertebroplasty cement in the L2-L4 vertebral bodies. No dilated bowel loops. 05/15 CT head No apparent mass or mass effect, hemorrhage, midline shift or hydrocephalus. No evidence of acute cortical infarct. No abnormal, extra-axial fluid or air collection. Mild, patchy low density in the periventricular and subcortical white matter is nonspecific, but may relate to chronic small vessel ischemic change. Age-related volume loss. Osseous calvarium grossly intact. Enteric tube partially visualized and coiled in the naso-oropharynx. 05/15 CTA chest abd pelvis 1. No acute process. No evidence of an intramural hematoma, dissection or aneurysm. 2. Patchy airspaces opacities near the lung bases, which could relate to atelectasis versus developing pneumonia in the appropriate clinical setting. 3. Small nodular density in the left hemipelvis, presumed to relate to a lymph node. Attention on follow-up studies is recommended. 4. Additional chronic findings as above, including varying degrees of vascular stenosis (severe near the left internal iliac artery origin). 05/15 CXR Endotracheal tube is radiographically in satisfactory position. Elevated right hemidiaphragm with suspected right basilar infiltrate or atelectasis. Median sternotomy changes with slightly prominent cardiac silhouette. Heart size is enlarged compared to the 2014 exam. 05/15 EKG Sinus rhythm Borderline right axis deviation similar to prior HR 80 bpm Qtc 436 ms Antimicrobials,Start/End Dates: Vancomycin IV 05/15 - Meropenem 05/15 - Acyclovir IV 05/15 - Impression: 1) End stage COPD s/p lung transplant Nov 2018 on tacro 0.5mg po BID, mycophenolate 1g po BID, prednisone 5mg po daily' pt azithromycin 250mg daily and bactrim DS 1 tab po BID for prophylaxis 2) Acute encephalopathy with concern for seizures s/p Keppra load; r/o meningoencephalitis, parenchymal lesions. Given history of exposures, Ddx remains broad including Listeria, endemic fungi, PML among others 3) ISAIAS 4) S/p intubation for airway protection Plan: - Agree with transfer to [facility], pt's transplant center, [facility] - Awaiting LP; d/w ICU earlier, requesting a large volume tap. will follow up CSF profile - Follow up MRI brain - Follow up blood cultures - Follow up fungal blood cultures - Continue meropenem, vancomycin, ACV IV - Following while pt remains at [facility] Mitzi Young MD CCT 95 minutes independent or procedures. [facility] Work Phone: 05-16-2023 Consult note Associated Order (s): IP CONSULT TO INFECTIOUS DISEASES Images from the original note were not included. 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 Pt's and son are at the bedside. Pt's reports he has been at his baseline health until 05/15. She states his sister thought he was more SOB on 05/12. He has been complaining of worsening back pain and has been waiting for an appt with Pain Management next month. 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 She denies any fevers, chills or sweats. No rashes. No headache. No weakness. Pt has been fixing their well and drove to [place] to get a pump, then to [place] to pick her up before going home to fix the well. Pt became upset when the pressure was too low to bring water into the house. Pt's states he was clammy and having cold sweats. He looked acutely pale. He told her he didn't feel well and reported burning chest pain with worsening SOB. He told her he needed to go to the hospital. She put him in her car because they lives so close to [facility] and drove him in. He insisted on getting cleaned up first. She reports he starting having seizures en route to the hospital and while the RN was getting a gurney to get him into the ED. He was intubated emergently for airway protection. Pt's reports over the last 6 months he has had personality changes. She state he is like two different people. It became so bad that at one point, he had alienated everyone in his family, but that has since improved. For the last 2 months, pt was convinced he had lice. Pt's reports he then had small whiteheads on his face, and pt went crazy, saying he had worms coming out of him. He was convinced they were bugs. Per , pt's has a very clear complexion. 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 The farm is a fully operational farm with pigs, donkeys, chickens, per pt's . She states she doesn't believe he came into close contact with the animals. He was present during a constitution party held there with several people. He told her there was a raw goat's head displayed on a stick. He told her there was blood everywhere. Pt does not castellon. He never mentioned being present for birthing or slaughtering animals. Pt never eats raw foods. He does eat bologna frequently Over the last month, pt has been eating food provided by the farm, but as far she knows, he was not eating unpasteurized dairy products. She states the farm is owned by a [place] family who would prepare traditional tacos for him. They have an indoor dog. reports no recent travel. 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 No other sick contacts. Pt has lost 25 pounds in the last 6 months, but she reports he has been trying because at his last Pulmonary follow up, his PFTs were down and his doctor was concerned it was due to his weight. Pt seen briefly before Transport arrived to take pt to Radiology and IR for planned MRI brain and LP. RN confirms pt is to be lifeflighted to [facility] later this evening. Past Medical History: Past Medical History: Diagnosis Date Diabetes mellitus (HCC) Past Surgical History: Past Surgical History: Procedure Laterality Date JOINT REPLACEMENT LUNG TRANSPLANT, DOUBLE Bilateral WRIST SURGERY Current Medications: Current Facility-Administered Medications Medication Dose Route Frequency Provider Last Rate Last Admin acetaminophen (Tylenol) tablet 1,000 mg 1,000 mg Oral q8h Derek Kepko, DO Or Acetaminophen (Tylenol) 650 MG/20.3ML solution 1,000 mg 1,000 mg Per G Tube q8h Derek Kepko, DO acyclovir (Zovirax) 950 mg in sodium chloride 0.9 % 150 mL IVPB 10 mg/kg IntraVENous q8h Oscar Chan MD Stopped at 05/16/23 1335 azithromycin (Zithromax) tablet 250 mg 250 mg Oral Once per day on Tue Derek Bhaktako, DO 250 mg at 05/16/23 0958 chlorhexidine (Peridex) 0.12 % solution 15 mL 15 mL Mouth/Throat BID Oscar Chan MD 15 mL at 05/16/23 0932 enoxaparin (Lovenox) syringe 40 mg 40 mg SubCUTAneous Daily Derek Bhaktako, DO 40 mg at 05/16/23 0932 gabapentin (Neurontin) capsule 200 mg 200 mg Oral Daily Derek Kecarmeloko, DO levETIRAcetam (Keppra) 1,000 mg in sodium chloride 0.9 % 100 mL IVPB 1,000 mg IntraVENous BID Kathleen Rodas, DO Stopped at 05/16/23 1013 meropenem (Merrem) 2,000 mg in sodium chloride 0.9 % 100 mL IVPB 2,000 mg IntraVENous q8h Derek Bhaktako, DO Stopped at 05/16/23 1330 [Held by provider] mycophenolate (Cellcept) capsule 1,000 mg 1,000 mg Oral BID Derek Kepko, DO ondansetron ODT (Zofran-ODT) disintegrating tablet 4 mg 4 mg Oral q8h PRN Derek Kepko, DO Or ondansetron (Zofran) injection 4 mg 4 mg IntraVENous q6h PRN Derek Kepko, DO pantoprazole (ProtoNix) injection 40 mg 40 mg IntraVENous q AM Derek Kepko, DO 40 mg at 05/16/23 0932 polyethylene glycol (PEG) 3350 (Miralax) packet 17 g 17 g Oral Daily PRN Derek Kepko, DO predniSONE (Deltasone) tablet 5 mg 5 mg Oral Daily Derek Kepko, DO 5 mg at 05/16/23 1044 propofol (Diprivan) infusion 5-50 mcg/kg/min IntraVENous Continuous Derek Kepko, DO 19.91 mL/hr at 05/16/23 1254 35 mcg/kg/min at 05/16/23 1254 sodium chloride 0.9% (NS) flush 5-40 mL 5-40 mL IntraCATHeter q8h Derek Kepko, DO 10 mL at 05/16/23 0959 sodium chloride 0.9% (NS) flush 5-40 mL 5-40 mL IntraVENous PRN Derek Kepko, DO sulfamethoxazole-trimethoprim (Bactrim DS) 800-160 MG per tablet 1 tablet 1 tablet Oral BID Derek Kepko, DO 1 tablet at 05/16/23 0958 [Held by provider] tacrolimus (Prograf) capsule 0.5 mg 0.5 mg Oral BID Derek Kepko, DO Allergies: Allergies Allergen Reactions Codeine Hives Fluticasone Other Fluticasone Furoate-Vilanterol Other and Shortness of breath Nsaids Other Due to lung transplant Vilanterol Unknown Wound Dressing Adhesive Hives Social History: Social History Socioeconomic History Marital status: Spouse name: Not on file Number of children: Not on file Years of education: Not on file Highest education level: Not on file Occupational History Not on file Tobacco Use Smoking status: Never Smokeless tobacco: Never Vaping Use Vaping Use: Never used Substance and Sexual Activity Alcohol use: Not on file Drug use: Not on file Sexual activity: Not on file Other Topics Concern Not on file Social History Narrative Not on file Social Determinants of Health Financial Resource Strain: Not on file Food Insecurity: Not on file Transportation Needs: Not on file Physical Activity: Not on file Stress: Not on file Social Connections: Not on file Intimate Partner Violence: Not on file Housing Stability: Not on file Family History: No family history on file. Review of Systems: Review of Systems Unable to perform ROS: Intubated Vitals: Patient Vitals for the past 24 hrs: BP Temp Temp src Pulse Resp SpO2 Height Weight 07/31/23 1400 101/60 36.3 C (97.3 F) -- 67 14 100 % -- -- 05/16/23 1300 118/82 36.1 C (97 F) -- 72 21 100 % -- -- 05/16/23 1200 112/64 36.1 C (97 F) Bladder 64 14 100 % -- -- 05/16/23 1100 105/66 36.1 C (97 F) -- 62 14 100 % -- -- 05/16/23 1000 119/64 -- -- 63 14 100 % -- -- 05/16/23 0900 99/76 (!) 35.8 C (96.4 F) Rectal 65 14 100 % -- -- 05/16/2310 -- -- -- -- -- -- 1.829 m (6') -- 05/16/23 08 112/ (!) 35.3 C (95.5 F) Temporal 71 14 100 % -- -- 05/16/2345 -- -- -- 69 14 100 % -- -- 05/16/23729 -- -- -- 65 14 100 % -- -- 05/16/2315 -- -- -- 64 14 100 % -- -- 05/16/23699 106/61 -- -- 61 14 100 % -- -- 05/16/2345 -- -- -- 59 16 100 % -- -- 05/16/2330 -- -- -- 72 19 100 % -- -- 05/16/2315 -- -- -- 63 14 100 % -- -- 05/16/23 06 99/61 -- -- 63 14 100 % -- 90 kg (198 lb 6.6 oz) 05/16/23 0500 124/70 -- -- 68 14 100 % -- -- 05/16/23 0445 -- -- -- 60 14 100 % -- -- 05/16/23 0400 110/67 36.1 C (97 F) Temporal 63 14 100 % -- -- 05/16/23 0300 103/63 -- -- 69 14 100 % -- -- 05/16/23 0200 131/77 -- -- 66 14 100 % -- -- 05/16/23 0100 103/66 -- -- 59 14 100 % -- -- 05/16/23 0000 105/68 36.2 C (97.1 F) Temporal 66 14 100 % -- -- 05/15/23 2312 -- -- -- 68 14 100 % -- -- 05/15/23 2300 99/70 -- -- 72 14 100 % -- -- 05/15/23 2217 (!) 154/95 36.1 C (97 F) Temporal 98 17 100 % -- -- 05/15/232114 (!) 148/88 -- -- 80 18 100 % -- -- 05/15/232105 -- -- -- -- -- -- -- 94.8 kg (209 lb) 05/15/232004 -- -- -- -- -- -- -- 94.3 kg (207 lb 14.3 oz) 05/15/231955 (!) 148/89 36.4 C (97.5 F) Oral 83 14 100 % -- -- 05/15/23 193 (!) 132/90 -- -- 94 14 100 % -- -- 05/15/231924 -- -- -- 109 14 100 % -- -- 05/15/231911 (!) 169/82 -- -- 108 -- 93 % -- -- 05/15/231908 (!) 171/79 -- -- 88 (!) 28 100 % -- -- 05/15/231906 -- 36.2 C (97.2 F) Axillary -- -- -- -- -- 05/15/23 190 (!) 187/154 -- -- 91 24 100 % -- -- Physical Exam: Physical Exam Vitals and nursing note reviewed. Constitutional: General: He is not in acute distress. Appearance: He is ill-appearing. He is not toxic-appearing or diaphoretic. Comments: Intubated, sedated HENT: Head: Normocephalic and atraumatic. Comments: +EEG leads Right Ear: External ear normal. Left Ear: External ear normal. Nose: Nose normal. No rhinorrhea. Mouth/Throat: Mouth: Mucous membranes are dry. Comments: Limited exam Cardiovascular: Rate and Rhythm: Normal rate. Rhythm irregular. Heart sounds: Normal heart sounds. Pulmonary: Breath sounds: Rales present. No rhonchi. Comments: Effort per vent Abdominal: General: There is distension. Palpations: Abdomen is soft. There is no mass. Comments: No grimacing on exam, decreased bowel sounds Skin: General: Skin is warm and dry. Coloration: Skin is not jaundiced. Findings: No bruising, erythema or rash. Comments: Tanned skin Neurological: Comments: Intubated, sedated Psychiatric: Comments: Unable to assess Labs: Lab Results Component Value Date/Time NA 137 05/16/2023 031 K 3.5 05/16/2023317 CL 111 (H) 05/16/2023317 CO2 21 (L) 05/16/2023317 BUN 16 05/16/2023317 CREATININE 0.99 05/16/2023317 CREATININE 1.12 11/24/2021 0940 GLUCOSE 98 05/16/20238 CALCIUM 8.3 (L) 05/16/2023 0318 PROT 5.9 (L) 05/16/2023317 BILITOT 0.4 05/16/2023 031 ALKPHOS 56 05/16/2023 0318 AST 30 05/16/2023 0318 ALT 27 05/16/2023 0318 PROCAL 0.06 05/15/2023 1908 Lab Results Component Value Date/Time WBC 7.4 05/16/20238 HGB 12.4 05/16/2023 1320 HCT 38.2 (L) 05/16/2023 0318 PLT 158 05/16/20238 GRANULOCYTES 67.5 04/26/2022 0927 LYMPHOPCT 19.9 (L) 05/16/2023317 MONOPCT 8.8 05/16/2023317 LABEOS 1.6 04/26/2022 0927 BASOPCT 0.3 05/16/20238 NEUTROABS 5.2 05/16/2023317 Micro: 05/16 pneumonia PCR negative 05/16 respiratory gram stain negative, culture in progress 05/15 fungal blood cultures 2/2 in process 05/15 MRSA screen negative 05/15 blood culture 2/2 in process 05/15 Legionella, Pneumococcus urine antigens negative Lines: CVC TLC 05/16 ETT 05/15 Pretty catheter 05/15 Radiography/Echo/Other: 05/16 MRI brain pending 05/16 abdominal XR NG tube has its tip and sidehole located within the gastric body. Relative paucity of bowel gas without pathologically dilated loops of bowel. Elevation of the right hemidiaphragm with persistent bibasilar airspace disease. Postprocedural changes in the lumbar spine status post prior vertebroplasty. Vascular calcifications. 05/16 CXR Lines/Tubes: Status post endotracheal intubation with the tip of the ET tube in satisfactory position above the flavia. A right IJ central line has been introduced which follows the course of the brachiocephalic vein and SVC based on the earlier CT, with tip overlying the inferior aspect of the SVC. Heart/Mediastinum: Heart size is within normal limits, again with surgical clips near the flavia and left hilum. Lungs: Persistent right hemidiaphragm elevation and bibasilar atelectasis. No pneumothorax or pleural effusion. Bones: Unchanged 05/16 abdominal XR An OG tube is not identified. Cardiac monitoring device and pacer pads overlie the chest. There is an ETT and right IJ central line. Small amount of excreted contrast in the renal collecting systems and ureters from the earlier CT. Diffuse aortoiliac atherosclerotic calcification. Vertebroplasty cement in the L2-L4 vertebral bodies. No dilated bowel loops. 05/15 CT head No apparent mass or mass effect, hemorrhage, midline shift or hydrocephalus. No evidence of acute cortical infarct. No abnormal, extra-axial fluid or air collection. Mild, patchy low density in the periventricular and subcortical white matter is nonspecific, but may relate to chronic small vessel ischemic change. Age-related volume loss. Osseous calvarium grossly intact. Enteric tube partially visualized and coiled in the naso-oropharynx. 05/15 CTA chest abd pelvis 1. No acute process. No evidence of an intramural hematoma, dissection or aneurysm. 2. Patchy airspaces opacities near the lung bases, which could relate to atelectasis versus developing pneumonia in the appropriate clinical setting. 3. Small nodular density in the left hemipelvis, presumed to relate to a lymph node. Attention on follow-up studies is recommended. 4. Additional chronic findings as above, including varying degrees of vascular stenosis (severe near the left internal iliac artery origin). 05/15 CXR Endotracheal tube is radiographically in satisfactory position. Elevated right hemidiaphragm with suspected right basilar infiltrate or atelectasis. Median sternotomy changes with slightly prominent cardiac silhouette. Heart size is enlarged compared to the 2014 exam. 05/15 EKG Sinus rhythm Borderline right axis deviation similar to prior HR 80 bpm Qtc 436 ms Antimicrobials,Start/End Dates: Vancomycin IV 05/15 - Meropenem 05/15 - Acyclovir IV 05/15 - Impression: 1) End stage COPD s/p lung transplant Nov 2018 on tacro 0.5mg po BID, mycophenolate 1g po BID, prednisone 5mg po daily' pt azithromycin 250mg daily and bactrim DS 1 tab po BID for prophylaxis 2) Acute encephalopathy with concern for seizures s/p Keppra load; r/o meningoencephalitis, parenchymal lesions. Given history of exposures, Ddx remains broad including Listeria, endemic fungi, PML among others 3) ISAIAS 4) S/p intubation for airway protection Plan: - Agree with transfer to [facility], pt's transplant center, [place] - Awaiting LP; d/w ICU earlier, requesting a large volume tap. will follow up CSF profile - Follow up MRI brain - Follow up blood cultures - Follow up fungal blood cultures - Continue meropenem, vancomycin, ACV IV - Following while pt remains at [facility] Mitzi Young MD CCT 95 minutes independent or procedures. Associated Order(s): IP CONSULT TO DIETITIAN Nutrition Assessment Type and Reason for Visit: Initial, Consult (TF ordering and management- mechanical vent bundle) Nutrition Recommendations/Plan: 1. Pt is currently intubated/sedated (versed and propofol @ 22.8mls/hr = 602 lipid kcals over 24 hour time period. Recommend pt not be without nutrition for >72 hours of admit if medically able. --> when EN to begin, consider goal of: Vital AF 1.2 @ goal rate of 55mls/hr to provide 1584 kcals + 602 lipid kcals via propofol (@22.8mls/hr), 99gm protein, 1071mL free fluid (27kcals/kg, 1.2gm/kg IBW). --> will continue to monitor sedation requirements and need to adjust formula recommendations if propofol rate is decreased or discontinued altogether. 2. Will monitor tolerance of nutrition as initiated and increased to goal. / 3. 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 4. Will continue to monitor weight changes, labs and overall nutrition status 5. RD will continue to follow up weekly Malnutrition Assessment: Malnutrition Status: Insufficient data (will monitor ability to obtain more subjective data related to nutrition intake and more recent weight trends- pt currently intubated/sedated) Context: Chronic Illness (pt presented acutely due to AMS and SOB, however pt reported that pt has been more forgetful over recent months and she has noticed personality changes with associated weight loss over 3 month time period) Findings of the 6 clinical characteristics of malnutrition: Energy Intake: Unable to assess (pt is intubated/sedated, no family in room at time of RD visit, will monitor ability to obtain subjective data r/t nutrition intake [employer] as well as timing of EN initiation during admit, currently propofol providing 602 lipid kcals over 24 hour time period) Weight Loss: Unable to assess ( reported 25# wt loss x3 months, CBW 198# no method 05/16, 207# no method 05/15, per EPIC--> 05/31: 211#, 07/30: 208#, 11/08: 218#, utilizing wt from 10/2022 pt with 9.2% loss x6 months = not significant, however need more data r/t wt trends x3 months) Body Fat Loss: (deferred, pt is intubated/sedated, cEEG in place- did not want to manipulate pt in bed) Muscle Mass Loss: (deferred, pt is intubated/sedated, cEEG in place- did not want to manipulate pt in bed) Fluid Accumulation: No significant fluid accumulation Outsole Compressor Strength: Not Performed Nutrition Assessment: pt with PMH significant for bilateral lung transplant (2018- follows with [facility] transplant team, immunosuppressed with Tacrolimus, Mycophenolate, Prednisone) CAD, HTN and chronic back pain who presented to [facility] ED on 05/15/23 from home due to AMS and SOB, pt reported that over the past 3 months pt has lost about 25# and then over the past month his personality has slowly changed- she stated pt has been more angry and forgetful, 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 he has multiple projects that he does around the home such as abdias and most recently working on their ground water well, stated in the AM he was at his baseline but after climbing out of the well yesterday he started having SOB and became agitated and altered, pt called transplant team at [facility] who recommended they present to the ED for evaluation, while they were driving to the hospital pt said that he was yelling at her and when they arrived to the ED he became unresponsive in the car with agonal breathing, ED team was able to take pt out of the car and place him on the sidewalk, they started ventilating with BVM and transported him into the ED, pt did become more responsive but started having seizure like activity, pt was intubated in the ED and seizure treated with IV versed 4, CT head and CTA C/A/P obtained which showed some atelectasis vs infiltrate in the RLL and no other acute changes, upon transport back to ED room he started having more seizure activity, Neurology was contacted and pt was transferred to ICU for further management, LP was attempted bedside in ICU however unsuccessful thus IR LP ordered with labs, central line placed, bronch completed, NCC consulted and cEEG has been initiated, at time of assessment pt remains NPO, intubated/sedated (fentanyl d/c, versed and propofol remain running, propofol observed @ 22.8mls/hr in room = 602 lipid kcals over 24 hour time period), no family/visitors were present in room, RN was at bedside, pt CBW 198# no method on 05/16, was 207# no method on 05/15, per EPIC review --> 04/05/22: 214#, 05/31: 211#, 07/30: 208#, 11/08: 218#, as noted above pt reported 25# weight loss over 3 month time period, utilizing weight from 11/08/22 of 218# to CBW 198# = 9.2% weight loss- will continue to monitor trends, as TF ordering and management consult placed as part of mechanical vent bundle will provide EN recommendations only at this time and leave nutrition initiation per MD discretion. Estimated Daily Nutrient Needs: Energy Requirements Based On: Kcal/kg Weight Used for Energy Requirements: [place] Weight for Energy Calculation (kg): 80.9 kg Total Energy Requirements (kcals/day): 2022-2264kcals/day Weight Used for Protein Requirements: [place] Weight in Kg Used for Protein Requirements: 80.9 kg Estimated Total Protein (g/day): 81-97gm pro/day Estimated Daily Total Fluid (ml/day): per MD recommendations Nutrition Related Findings: [place] = 12, +I/O, intubated/sedated (fentanyl d/c, versed and propofol (@22.8mls/hr) remain running), cEEG in place, missing teeth Wound Type: None (coccyx redness) Current Nutrition Therapies: NPO diet Current Oral Intake Average Meal Intake: NPO Average Supplements Intake: NPO Anthropometric Measures: Height: 182.9 cm (6') Current Body Weight: 89.8 kg (198 lb) (no method 05/16) Weight Source: Not Specified Admission Body Weight: 93.9 kg (207 lb) (no method 05/15) Usual Body Weight: 98.9 kg (218 lb) (per EPIC review --> 04/05/22: 214#, 05/31: 211#, 07/30: 208#, 11/08: 218#- of note pt reported 25# weight loss x3 months) % Weight Change (Calculated): -9.2 [place] Body Weight (lbs) (Calculated): 178 lbs [place] Body Weight (Kg) (Calculated): 81 kg % [place] Body Weight (Calculated): 111.2 % BMI (kg/m2) (Calculated): 26.8 Weight Adjustment For: No Adjustment BMI Categories: Overweight (BMI 25.0-29.9) Nutrition Diagnosis: Inadequate energy intake related to cognitive or neurological impairment, impaired respiratory function as evidenced by NPO or clear liquid status due to medical condition, intubation Unintended weight loss related to (presented due to AMS and SOB, reported that pt has been more forgetful over recent months and she has noticed personality changes) as evidenced by ( reported weight loss of 25# x3 months) Nutrition Interventions: Nutrition Education/Counseling: No recommendation at this time Coordination of Nutrition Care: Continue to monitor while inpatient Goals: Goals: Initiate nutrition support, within 2 days Nutrition Monitoring and Evaluation: Behavioral-Environmental Outcomes: None Identified Food/Nutrient Intake Outcomes: Enteral Nutrition Intake/Tolerance Physical Signs/Symptoms Outcomes: Biochemical Data, GI Status, Fluid Status or Edema, Hemodynamic Status, Weight, Skin, Nutrition Focused Physical Findings Discharge Planning: Too soon to determine Juli Manning RD Contact: available via [employer] chat or *[phone] Associated Order(s): IP CONSULT TO NEUROCRITICAL CARE INITIAL CONSULT NOTE. STROKE SERVICE Patient Name: Nick Hernández Patient : 1960 Acct: [id number] Date of Admission: 05/15/2023 [facility]: [facility] A PCP: LIANA LOJA History of Present Ilness: 63 y.o. is unknown handed male with the chief Complaint of:seizure-like activity, AMS, SOB. Per , patient has lost 25 lbs in the past 3 months and more angry and forgetful in the past month. Complain : Patient climbed out after working on water well at home, became SOB, agitated, altered. In route to ED, patient began yelling at , and on arrival patient was unresponsive with agonal breathing. Patient then began having seizure-like activity and was intubated and given 4 mg Versed. Additional seizure-like activity, and patient was given Keppra load with propofol, versed, fentanyl gtt. Transferred to ICU for monitoring and management. cEEG started, and patient placed on broad spectrum abx. Associated symptoms: Seizure-like activity, AMS, SOB This occurred in the setting of: CAD, HTN, B/L lung transplant in 2019. He follows with [facility] transplant team, on tacrolimus, mycophenolate, prednisone. PFTs most recently on 03/28/23. Past Medical History: @PMHNH@ Past Surgical History: @PSHN@ Home Medications: Prior to Admission medications Medication Sig Start Date End Date Taking? Authorizing Provider acetaminophen (Tylenol) 325 MG tablet Take 650 mg by mouth every 6 hours as needed. 05/03/22 Historical Provider, alendronate (Fosamax) 70 MG tablet Take 70 mg by mouth. 04/09/19 Historical Provider, amLODIPine (Norvasc) 5 MG tablet Take 5 mg by mouth in the morning. 07/30/22 Historical Provider, aspirin 81 MG chewable tablet Chew 81 mg. 04/09/19 Historical Provider, azithromycin (Zithromax) 250 MG tablet Take 250 mg by mouth. 06/09/22 Historical Provider, azithromycin (Zithromax) 500 MG tablet Take 500 mg by mouth. Historical Provider, calcium citrate-vitamin D2 (Citracal+D) 315-200 MG-UNIT tablet Take 1 tablet by mouth in the morning and 1 tablet in the evening. 07/01/22 Historical Provider, calcium citrate-vitamin D2 315-250 MG-UNIT tablet Take 1 tablet by mouth. 04/09/19 Historical Provider, carvedilol (Coreg) 25 MG tablet Take 25 mg by mouth in the morning and 25 mg in the evening. 07/07/22 Historical Provider, ergocalciferol (Vitamin D-2) 1.25 MG (68419 UT) capsule Take 50,000 Units by mouth. 04/05/19 Historical Provider, gabapentin (Neurontin) 400 MG capsule Take 400 mg by mouth. 04/29/22 Historical Provider, gabapentin (Neurontin) 800 MG tablet Take 800 mg by mouth. Historical Provider, glucose blood (OneTouch Ultra) test strip 400 strips in the morning and 400 strips in the evening. 04/29/22 Historical Provider, HYDROcodone-acetaminophen (Voss) 10-325 MG tablet Take 1 tablet by mouth every 6 hours as needed. Historical Provider, ipratropium-albuterol (Combivent Respimat) 20-100 MCG/ACT inhaler Inhale 3 mL in the morning and 3 mL at noon and 3 mL in the evening and 3 mL before bedtime. Historical Provider, Lecithin 1200 MG capsule Take 1,200 mg by mouth in the morning. Historical Provider, magnesium oxide (Mag-Ox) 400 MG tablet Take 800 mg by mouth in the morning and 800 mg in the evening. 04/09/19 Historical Provider, Multiple Vitamins-Iron tablet Take 1 tablet by mouth. 04/09/19 Historical Provider, mycophenolate (Cellcept) 250 MG capsule Take 1,000 mg by mouth in the morning and 1,000 mg before bedtime. 04/03/19 Historical Provider, naloxone (Narcan) 4 mg/0.1 mL nasal spray Administer 1 spray into affected nostril(s). 08/14/19 Historical Provider, oxybutynin XL (Ditropan-XL) 10 MG 24 hr tablet Take 10 mg by mouth in the morning. 04/23/22 Historical Provider, pantoprazole (ProtoNix) 40 MG EC tablet Take 40 mg by mouth in the morning and 40 mg in the evening. 04/09/19 Historical Provider, predniSONE (Deltasone) 5 MG tablet Take 5 mg by mouth. 06/07/19 Historical Provider, rosuvastatin (Crestor) 10 MG tablet Take 10 mg by mouth in the morning. 04/09/19 Historical Provider, SITagliptin (Januvia) 100 MG tablet Take 100 mg by mouth. 04/09/19 Historical Provider, sulfamethoxazole-trimethoprim (Bactrim DS) 800-160 MG tablet Take 1 tablet by mouth in the morning and 1 tablet before bedtime. 08/10/21 Historical Provider, tacrolimus (Prograf) 0.5 MG capsule Take 1 mg by mouth. 08/06/19 Historical Provider, therapeutic sfxjigizxncg-[id number]-vfafhgcx (Theragran-M) tablet Take 1 tablet by mouth in the morning. 07/01/22 Historical Provider, Current Hospital Medications: Current Facility-Administered Medications: acetaminophen (Tylenol) tablet 1,000 mg, 1,000 mg, Oral, q8h OR Acetaminophen (Tylenol) 650 MG/20.3ML solution 1,000 mg, 1,000 mg, Per G Tube, q8h, Derek Cordova DO acyclovir (Zovirax) 950 mg in sodium chloride 0.9 % 150 mL IVPB, 10 mg/kg, IntraVENous, q8h, Oscar Chan MD, Stopped at 05/16/23 0545 azithromycin (Zithromax) tablet 250 mg, 250 mg, Oral, Once per day on Tue, Derek Cordova DO chlorhexidine (Peridex) 0.12 % solution 15 mL, 15 mL, Mouth/Throat, BID, Oscar Chan MD, 15 mL at 05/15/23 2105 enoxaparin (Lovenox) syringe 40 mg, 40 mg, SubCUTAneous, Daily, Derek Cordova DO fentaNYL (Sublimaze) 1000 mcg in sodium chloride 0.9 % 100 mL 10 mcg/mL infusion, 25-200 mcg/hr, IntraVENous, Continuous, Oscar Chan MD, Stopped at 05/16/23548 gabapentin (Neurontin) capsule 200 mg, 200 mg, Oral, Daily, Derek Cordova DO levETIRAcetam (Keppra) 1,000 mg in sodium chloride 0.9 % 100 mL IVPB, 1,000 mg, IntraVENous, BID, Kathleen Rodas DO meropenem (Merrem) 2,000 mg in sodium chloride 0.9 % 100 mL IVPB, 2,000 mg, IntraVENous, q8h, Derek Cordova DO, Stopped at 05/16/2354 midazolam (Versed) 50 mg/50mL infusion, 1-10 mg/hr, IntraVENous, Continuous, Oscar Chan MD, Last Rate: 10 mL/hr at 05/16/23524, 10 mg/hr at 05/16/23524 [Held by provider] mycophenolate (Cellcept) capsule 1,000 mg, 1,000 mg, Oral, BID, Derek Cordova DO ondansetron ODT (Zofran-ODT) disintegrating tablet 4 mg, 4 mg, Oral, q8h PRN OR ondansetron (Zofran) injection 4 mg, 4 mg, IntraVENous, q6h PRN, Derek Cordova DO pantoprazole (ProtoNix) injection 40 mg, 40 mg, IntraVENous, q AM, Derek Cordova DO polyethylene glycol (PEG) 3350 (Miralax) packet 17 g, 17 g, Oral, Daily PRN, Derek Cordova DO predniSONE (Deltasone) tablet 5 mg, 5 mg, Oral, Daily, Derek Cordova DO propofol (Diprivan) infusion, 5-50 mcg/kg/min, IntraVENous, Continuous, Derek Cordova DO, Last Rate: 22.8 mL/hr at 05/16/23728, 40 mcg/kg/min at 05/16/23728 sodium chloride 0.9% (NS) flush 5-40 mL, 5-40 mL, IntraCATHeter, q8h, Derek Kepko, DO, 10 mL at 05/16/23 0145 sodium chloride 0.9% (NS) flush 5-40 mL, 5-40 mL, IntraVENous, PRN, Derek Kepko, DO sulfamethoxazole-trimethoprim (Bactrim DS) 800-160 MG per tablet 1 tablet, 1 tablet, Oral, BID, Derek Kepko, DO [Held by provider] tacrolimus (Prograf) capsule 0.5 mg, 0.5 mg, Oral, BID, Derek Kepko, DO Continuous Infusions: fentaNYL, 25-200 mcg/hr, Last Rate: Stopped (05/16/23 05) midazolam, 1-10 mg/hr, Last Rate: 10 mg/hr (05/16/23524) propofol, 5-50 mcg/kg/min, Last Rate: 40 mcg/kg/min (05/16/23728) Allergies: Codeine, Fluticasone, Fluticasone furoate-vilanterol, Nsaids, Vilanterol, and Wound dressing adhesive Social History: TOBACCO: reports that he has never smoked. He has never used smokeless tobacco. ETOH: has no history on file for alcohol use. RECREATIONAL DRUG USE: Social History Substance and Sexual Activity Drug Use Not on file Family History: :Unable to obtain, due to patient level of consciousness, no data on file, no family able to provide information [facility] ROS; :Unable to obtain ROS due to patientintubated . Unable to obtain review of systems due to patient sedated Review of Systems Physical Examination: Patient Vitals for the past 8 hrs: BP Temp Temp src Pulse Resp SpO2 Weight 05/16/23 0700 106/61 -- -- 61 14 100 % -- 05/16/23 0600 99/61 -- -- 63 14 100 % 90 kg (198 lb 6.6 oz) 05/16/23 0500 124/70 -- -- 68 14 100 % -- 05/16/23 0445 -- -- -- 60 14 100 % -- 05/16/23 0400 110/67 36.1 C (97 F) Temporal 63 14 100 % -- 05/16/23 0300 103/63 -- -- 69 14 100 % -- 05/16/23 0200 131/77 -- -- 66 14 100 % -- 05/16/23 0100 103/66 -- -- 59 14 100 % -- I/O last 3 completed shifts: In: 258.4 (2.9 mL/kg) [I.V.:258.4 (2.9 mL/kg)] Out: - (0 mL/kg) Weight: 90 kg General Physical Examination: General: Not alert, intubated, sedated, obese, ill HEENT:Normocephalic, atraumaticl CV: S1+S2, RRR, no MRG. Pulm: Intubated and mechanically ventilated Abdomen: Soft NT/ND. BS + Skin: Intact without ulcers, breakdowns or discoloration Extremities: normal with no edema or cyanosis Orthopedic limitation; N/A Pulses: Intact peripherally Carotid auscultation :No bruits Neurological Examination: Higher Functions: Mental Status Exam: Level of Alertness:Sedated Orientation: intubated, can't talk Memory: intubated, can't talk Fund of Knowledge: intubated, can't talk Language: intubated, can'ttalk Dysarthria Intubated Cranial Nerves: -II Visual acuity: abnormal, limited due to patient unable to perform exam, patient sedated -II Visual schulz: poor reliability due to patient level ofconsciousness or structural limitation, patient sedated -III Pupils (~ 3 mm OD, 3 mm OU) equal, round, reactive to light; fixed, midline -III-IV- Extraocular Movements: Not tracking, patient sedated -Nystagmus not tracking, patient sedated -Saccades and pursuits not tracking, patient sedated -V Facial sensation: unable to perform test, patient sedated Corneal's Intact bilateral -VII Facial strength: unable to assess, patient sedated -VIII Hearing: unable to assess, patient sedated -IX-X- Gag reflex Intubated -X Palate: limited due to patient level of consciousness -XI Shoulder shrug: limited due to patient level of consciousness -XII Tongue movement: limited due to patient level of consciousness Funduscopic Exam: normal, no edema or exudates both eyes Motor Examination: Tone after evaluation of 4 limbs, the following findings applied: Normal upper extremities; decreased tone in the lower extremities -Bulk: normal -Muscle Stretchafter evaluation of all limbs, and axial musculature the following findings applied: Drift: absent patient is unable to move limbs due to sedation or acute medical circumstances -Reflexes: after evaluation of 4 limbs, the following findings applied ; decreased in all limbs -Plantar responce: upgoing right toe, downgoing left toe Sensory patient unable to assist with exam due toaphasia,level of consciousness, cognition or poor participation, Coordination: Arms patient unable to perform test due to sedation, paralysis or limb orthopedic circumstances Legs patient unable to perform testdue to sedation, paralysis or limb orthopedic circumstances Tremors patient unable to perform test due to sedation, paralysis or limb orthopedic circumstances Gait abnormal, unable to walk due to sedation, paralysis or limb orthopedic circumstances Results Labs: Last 24hrs Recent Results (from the past 24 hour(s)) POCT glucose meter Collection Time: 05/15/23 7:01 PM Result Value Ref Range Glucose 294 (H) 70 - 100 mg/dL CBC auto differential Collection Time: 05/15/23 7:08 PM Result Value Ref Range Auto WBC 7.8 3.6 - 10.7 10*3/uL RBC 4.96 4.40 - 5.90 10*6/uL Hemoglobin 14.5 13.0 - 18.0 g/dL Hematocrit 44.8 40.0 - 52.0 % MCV 90.4 80.0 - 98.0 fL MCH 29.2 26.0 - 34.0 pg MCHC 32.3 32.0 - 36.0 % RDW 15.3 (H) 11.5 - 14.5 % Platelets 192 140 - 440 10*3/uL MPV 8.4 7.4 - 12.4 fL nRBC 0.0 0.0 - 2.0 /100 WBCs Neutrophils Relative 72.1 40.0 - 80.0 % Lymphocytes Relative 19.4 (L) 20.0 - 40.0 % Monocytes Relative 8.1 2.0 - 10.0 % Eosinophils Relative 0.2 (L) 1.0 - 6.0 % Basophils Relative 0.2 0.0 - 2.0 % Neutrophils Absolute 5.6 1.8 - 7.0 10*3/uL Lymphocytes Absolute 1.5 1.0 - 4.3 10*3/uL Monocytes Absolute 0.6 0.0 - 0.8 10*3/uL Eosinophils Absolute 0.0 0.0 - 0.5 10*3/uL Basophils Absolute 0.0 0.0 - 0.2 10*3/uL Basic metabolic panel Collection Time: 05/15/23 7:08 PM Result Value Ref Range SODIUM 137 135 - 145 mmol/L POTASSIUM 4.2 3.5 - 5.1 mmol/L CHLORIDE 108 (H) 98 - 107 mmol/L CARBON DIOXIDE 16 (L) 22 - 30 mmol/L UREA NITROGEN 21 (H) 9 - 20 mg/dL CREATININE 1.60 (H) 0.66 - 1.25 mg/dL GLUCOSE 111 (H) 70 - 100 mg/dL CALCIUM 11.0 (H) 8.4 - 10.4 mg/dL ANION GAP 14 (H) 3 - 13 mmol/L eGFR 48.7 (L) >60.0 mL/min/1.73m*2 Troponin I Collection Time: 05/15/23 7:08 PM Result Value Ref Range TROPONIN I <0.012 0.000 - 0.034 ng/mL Prolactin Collection Time: 05/15/23 7:08 PM Result Value Ref Range PROLACTIN 14.8 4.0 - 18.0 ng/mL Magnesium Collection Time: 05/15/23 7:08 PM Result Value Ref Range MAGNESIUM 2.0 1.6 - 2.3 mg/dL Phosphorus Collection Time: 05/15/23 7:08 PM Result Value Ref Range PHOSPHORUS 2.1 (L) 2.5 - 4.5 mg/dL Hepatic function panel Collection Time: 05/15/23 7:08 PM Result Value Ref Range BILIRUBIN, TOTAL 1.0 0.2 - 1.3 mg/dL BILIRUBIN, DIRECT 0.0 0.0 - 0.3 mg/dL ALKALINE PHOSPHATASE 75 38 - 126 U/L AST (SGOT) 39 15 - 46 U/L ALT 34 0 - 49 U/L ALBUMIN 5.0 3.5 - 5.0 g/dL TOTAL PROTEIN 8.0 6.3 - 8.2 g/dL Procalcitonin Test Collection Time: 05/15/23 7:08 PM Result Value Ref Range PROCALCITONIN 0.06 0.00 - 0.09 ng/mL ECG 12 lead Collection Time: 05/15/23 7:13 PM Result Value Ref Range Heart Rate 80 bpm QRSD Interval 89 ms QT Interval 379 ms QTC Interval 436 ms P [place] 44 degrees QRS [place] 89 degrees T Wave [place] -[address] Interval 168 ms Complete Urinalysis Collection Time: 05/15/23 7:55 PM Result Value Ref Range Color, Urine Yellow Lt. Yellow Clarity, Urine Clear Clear pH, Urine 5.5 5.0 - 8.0 pH Leukocytes, Urine Negative Negative Chacorta/uL Nitrite, Urine Negative Negative Protein, Urine 10 (A) Negative mg/dL Glucose, Urine Normal Normal (<70) mg/dL Bilirubin, Urine Negative Negative mg/dL Ketones, Urine 20 (A) Negative mg/dL Urobilinogen, Urine Normal Normal (0-1) mg/dL Blood, Urine Negative Negative mg/dL RBC, Urine 3-5 (A) 0 - 2 /HPF WBC, Urine 3-5 0 - 5 /HPF Squamous Epithelial, Urine Negative 3 - 5 /HPF Bacteria, Urine Negative Negative /HPF Mucus, Urine Few Negative /LPF Hyaline Casts, Urine 3-5 (A) Negative /LPF SPECIFIC GRAVITY OF URINE (NUMERIC) 1.039 (H) 1.005 - 1.030 Legionella and Streptococcus Urine Antigen Collection Time: 05/15/23 7:55 PM Specimen: Urine, Clean Catch Result Value Ref Range Legionella pneumophila Ag Not Detected Not Detected Streptococcus pneumoniae Ag Not Detected Not Detected Blood culture #1 - Suspected Infection Collection Time: 05/15/23 8:16 PM Specimen: Blood, Venous Result Value Ref Range Blood Culture Blood culture incubation started Blood culture #2 - Suspected Infection Collection Time: 05/15/23 8:16 PM Specimen: Blood, Venous Result Value Ref Range Blood Culture Blood culture incubation started Sodium, urine, random Collection Time: 05/15/23 9:06 PM Result Value Ref Range SODIUM, URINE 97 (H) 30 - 90 mmol/L Creatinine, urine, random Collection Time: 05/15/23 9:06 PM Result Value Ref Range CREATININE, URINE 156.4 No Range mg/dL SARS-CoV-2 and Respiratory PCR Panel Collection Time: 05/15/23 9:08 PM Specimen: Nasopharynx; Swab Result Value Ref Range SARS-CoV-2 Not Detected Not Detected Adenovirus Not Detected Not Detected Coronavirus HKU1 Not Detected Not Detected Coronavirus NL63 Not Detected Not Detected Coronavirus 229E Not Detected Not Detected Coronavirus OC43 Not Detected Not Detected Human Metapneumovirus Not Detected Not Detected Human Rhinovirus/Enterovirus Not Detected Not Detected Influenza A Not Detected Not Detected Influenza B Not Detected Not Detected Parainfluenza 1 Not Detected Not Detected Parainfluenza 2 Not Detected Not Detected Parainfluenza 3 Not Detected Not Detected Parainfluenza 4 Not Detected Not Detected Respiratory Syncytial Virus Not Detected Not Detected Bordetella pertussis Not Detected Not Detected Bordetella parapertussis Not Detected Not Detected Chlamydia pneumoniae Not Detected Not Detected Mycoplasma pneumoniae Not Detected Not Detected MRSA by PCR Collection Time: 05/15/23 9:09 PM Specimen: Nasal; ESwab Result Value Ref Range Staphylococcus aureus Not Detected Not Detected mecA gene Not Detected Not Detected Blood Gas, Arterial Collection Time: 05/15/23 9:12 PM Result Value Ref Range pH, Arterial 7.379 7.350 - 7.450 pCO2, Arterial 34.3 (L) >35.0 - <45.0 mm Hg pO2, Arterial 286.7 (H) 80.0 - 100.0 mm Hg HCO3, Arterial 19.8 (L) 21.0 - 25.0 mmol/L O2 Sat, Arterial 99.3 95.0 - 100.0 % Base Excess, Arterial -4.5 (L) -3.0 - 3.0 mmol/L CO2 Total 20.8 (L) 23.0 - 27.0 mmol/L Hgb, blood gas 13.3 Screen Only g/dl Source Of Oxygen 70% Oxygen PROTIME/INR & PTT Collection Time: 05/15/23 11:01 PM Result Value Ref Range PROTHROMBIN TIME 11.6 9.0 - 12.0 s INR 1.1 0.9 - 1.1 APTT 22.9 20.0 - 30.5 s Fungal culture, blood Collection Time: 05/15/23 11:01 PM Specimen: Blood, Venous Result Value Ref Range Fungal Blood Culture No fungus isolated to date. Culture will be held for 21 days. Calcium, ionized Collection Time: 05/15/23 11:01 PM Result Value Ref Range Calcium, Ion 4.30 4.30 - 5.20 mg/dL PH, IONIZED CALCIUM 7.41 7.31 - 7.46 Respiratory culture Collection Time: 05/16/23 12:26 AM Specimen: Sputum Result Value Ref Range Respiratory culture Culture in progress Gram Stain Result Rare Polymorphonuclear leukocytes per low power field Gram Stain Result No epithelial cells seen Gram Stain Result No organisms seen Pneumonia PCR Panel Collection Time: 05/16/23 12:28 AM Specimen: Trachea; Aspirate Result Value Ref Range Staphylococcus aureus Not Detected Not Detected Streptococcus agalactiae Not Detected Not Detected Streptococcus pneumoniae Not Detected Not Detected Streptococcus pyogenes Not Detected Not Detected Haemophilus influenzae Not Detected Not Detected Moraxella catarrhalis Not Detected Not Detected Acinetobacter baumannii complex Not Detected Not Detected Enterobacter cloacae complex Not Detected Not Detected Escherichia coli Not Detected Not Detected Klebsiella (Enterobacter) aerogenes Not Detected Not Detected Klebsiella oxytoca Not Detected Not Detected Klebsiella pneumoniae Not Detected Not Detected Proteus spp Not Detected Not Detected Pseudomonas aeruginosa Not Detected Not Detected Serratia marcescens Not Detected Not Detected Chlamydia pneumoniae Not Detected Not Detected Legionella pneumophila Not Detected Not Detected Mycoplasma pneumoniae Not Detected Not Detected Adenovirus Not Detected Not Detected Coronavirus Not Detected Not Detected Human Metapneumovirus Not Detected Not Detected Human Rhinovirus/Enterovirus Not Detected Not Detected Influenza A Not Detected Not Detected Influenza B Not Detected Not Detected Parainfluenza virus Not Detected Not Detected Respiratory Syncytial Virus Not Detected Not Detected Comprehensive metabolic panel Collection Time: 05/16/23 3:18 AM Result Value Ref Range SODIUM 137 135 - 145 mmol/L POTASSIUM 3.5 3.5 - 5.1 mmol/L CHLORIDE 111 (H) 98 - 107 mmol/L CARBON DIOXIDE 21 (L) 22 - 30 mmol/L ANION GAP 5 3 - 13 mmol/L UREA NITROGEN 16 9 - 20 mg/dL CREATININE 0.99 0.66 - 1.25 mg/dL GLUCOSE 98 70 - 100 mg/dL CALCIUM 8.3 (L) 8.4 - 10.4 mg/dL AST (SGOT) 30 15 - 46 U/L ALT 27 0 - 49 U/L ALKALINE PHOSPHATASE 56 38 - 126 U/L ALBUMIN 3.6 3.5 - 5.0 g/dL BILIRUBIN, TOTAL 0.4 0.2 - 1.3 mg/dL TOTAL PROTEIN 5.9 (L) 6.3 - 8.2 g/dL eGFR 86.7 >60.0 mL/min/1.73m*2 Magnesium Collection Time: 05/16/23 3:18 AM Result Value Ref Range MAGNESIUM 1.9 1.6 - 2.3 mg/dL Phosphorus Collection Time: 05/16/23 3:18 AM Result Value Ref Range PHOSPHORUS 3.1 2.5 - 4.5 mg/dL CBC auto differential Collection Time: 05/16/23 3:18 AM Result Value Ref Range Auto WBC 7.4 3.6 - 10.7 10*3/uL RBC 4.18 (L) 4.40 - 5.90 10*6/uL Hemoglobin 12.1 (L) 13.0 - 18.0 g/dL Hematocrit 38.2 (L) 40.0 - 52.0 % MCV 91.4 80.0 - 98.0 fL MCH 29.0 26.0 - 34.0 pg MCHC 31.7 (L) 32.0 - 36.0 % RDW 15.5 (H) 11.5 - 14.5 % Platelets 158 140 - 440 10*3/uL MPV 8.1 7.4 - 12.4 fL nRBC 0.0 0.0 - 2.0 /100 WBCs Neutrophils Relative 70.7 40.0 - 80.0 % Lymphocytes Relative 19.9 (L) 20.0 - 40.0 % Monocytes Relative 8.8 2.0 - 10.0 % Eosinophils Relative 0.3 (L) 1.0 - 6.0 % Basophils Relative 0.3 0.0 - 2.0 % Neutrophils Absolute 5.2 1.8 - 7.0 10*3/uL Lymphocytes Absolute 1.5 1.0 - 4.3 10*3/uL Monocytes Absolute 0.7 0.0 - 0.8 10*3/uL Eosinophils Absolute 0.0 0.0 - 0.5 10*3/uL Basophils Absolute 0.0 0.0 - 0.2 10*3/uL Since admission: Recent Labs 05/15/23 1908 TROPONINI <0.012 Recent Labs 05/15/23 1908 05/16/23 0318 ALKPHOS 75 56 ALT 34 27 AST 39 30 BILITOT 1.0 0.4 BILIDIR 0.0 -- Coagulation: Recent Labs 05/15/23 2301 INR 1.1 Radiology Personal review: CT Head 05/15/23 Impression: 1. No acute intracranial findings. 2. Chronic ischemic changes suspected. ASSESSMENT / PLAN / SUGGESTIONS : Nick Hernández is a 63 year old male with PMH of b/l lung transplant on immunosuppressants, CAD, HTN who we are consulted for seizure-like activity, AMS. #Seizure-like activity, unclear origin - possible [employer]IL[employer]GR[employer] infection due to immunosuppression #S/p bilateral lung transplant on chronic immunosuppression - holding home tacrolimus and mycophenolate #HTN - controlled Plan #MRI Brain pending #cEEG to monitor for further seizure-like activity #IR LP ordered and pending #Continue broad spectrum abx #Consider adding rocephin, defer to ID #Consult Infectious Disease #Keppra 1000mg BID #Consider backing off on Keppra after LP results #Per ICU note patient being transferred to [facility]; will complete LP and MRI here at [facility] Patient seen and discussed with Dr. June Associated attestation - Elyssa June MD - 05/16/2023 6:18 PM EDT Neuro Critical Care / stroke Attending Case was discussed with ED last evening Status epilepticus documented in ED Treated with keppra and VPA and then started on propofol EEG started last evening , significant generalized bursts noted but no clear seizures Today's exam patient very suppressed with increased tone in hands and LE , bilateral hofmans and babinski's , pupils still reactive, no fix or follow weak dolls, no blink to threat, patient in coma ( but sedated ) ON Keppra 1000 BID ( after 4.5 load ) Neurontin 200 q day ( home dose ) And propofol , does not seems that VPA was used Plan to continue monitoring , increase sedation if needed to obtain more suppression if it is felt to be seizing which is not the case right now Future repeated imaging 3 days Optimize oxigenation , patient having problems ( question if he is rejecting lungs ) In regards to the cause of the seizures, its unclear , he is immunosuppressed, Requested broad spectrum antimicrobials and ID involvement WBC was not elevated Glucose was high ( could this have been the cause ? ) CSF lumbar puncture, clear CSF CSF Glucose 62/ Protein 83 Cell count, ME profile , crypto antige, anerobic cultures , fungal culture , Fungal stain , PND MRI was done with no contrast, did not see any structural abonormality IMPRESSION: 1. Diminished cerebral volume and evidence of chronic white matter small vessel ischemic change without acute intracranial abnormality. 2. Paranasal sinus disease. 3. Small bilateral mastoid effusions. Plan In regards to ID , continue follow CSF data , keep antimicrobials until other strickland not consider necessary Consider decrease sedation for better exam tomorrow if EEG improves I personally expend in min up to :First 75 CCT Critical care time, Total critical care time caring for this patient with life threatening, unstable organ failure (acute loss of neurological functions), including direct patient contact, management of life support systems, review of data including imaging and labs, discussions with other team members and physicians, excluding procedures. [x] Face to Face [x] In company of resident / student [x] I personally reviewing stat labs, stat imaging studies and reviewed available medical record performed a history and physical examination of the patient and discussed the urgent management, diagnostic impressions and suggested plan of care documented in this note. [x] I personally corrected the note in presence of my resident an with their approval [x] Patient remains in critical condition and requires close neuro-critical care monitoring due to risk of further neurological deterioration Personal discussion of test results and plan of care with: ., Family, Neuroradiology, Critical Care Team, . Thank you LIANA LOJA for the opportunity to be involved in this patient's care. documented in this encounter [facility] Online 05-16-2023 Note Formatting of this n ote might be different from the original. Spoke with [facility] transfer line [phone] to clarify pt admission. Accepting physician is Dr Barbosa, pt room number will be 1133 and RN to RN report number [phone], pt can be transferred whenever testing completed and, per physician recommendations, air transport can be set up. Spoke with Ar at [facility] [phone] regarding pt transfer from [facility] to [facility]. As soon as pt testing has been completed [facility] is to be notified. It will take approximately 15-20 min to arrive and 45 min to get to destination, availability of crew pending. Facesheet faxed to [phone] Attn: Ar. Information provided to bedside RN and resident. TCC will follow. [facility] 05-16-2023 Note Formatting of this n ote might be different from the original. Spoke with [facility] transfer line [phone] to clarify pt admission. Accepting physician is Dr Barbosa, pt room number will be Rm 1133 and RN to RN report number [phone], pt can be transferred whenever testing completed and, per physician recommendations, air transport can be set up. Spoke with Ar at [facility] [employer] [phone] regarding pt transfer from [facility] to [facility]. As soon as pt testing has been completed [facility] is to be notified. It will take approximately 15-20 min to arrive and 45 min to get to destination, availability of crew pending. Facesheet faxed to [phone] Attn: Ar. Information provided to bedside RN and resident. TCC will follow. [facility] 05-16-2023 History of Present illness Narrative This RN just spoke with SHERRY Stahl from [facility] ICU ([facility]) who is to be taking report pending pt's transport to [facility]. She spoke with [facility]'s attending physician and they did request that we complete pt's MRI and LP today before transporting pt to [facility] due to currently having long wait times for their MRI schedule. Pt's MRI and LP process scheduled to begin today at 1400. RN will call report to [facility] RN this afternoon. ICU Liberation - Multidisciplinary Rounds Analgesia Assess CPOT (intubated) Score: 0 (05/16/23 0800) 2 CPOT (intubated) Score: 0 Prevent Acetaminophen, scheduled Manage Pain well controlled?: Yes Choice of Analgesia and Sedation Consults Code Status RASS Gupta Agitation Sedation Scale (RASS): Deep Sedation-No response to voice, but movement or eye opening to physical stimulation (05/16/23 0729) Goal RASS Alert and Calm (0) to Drowsy (-1) Pain/Sedation Management Fentanyl Consults IP CONSULT TO NEUROCRITICAL CARE IP CONSULT TO INFECTIOUS DISEASES IP CONSULT TO DIETITIAN Code Status Full Code Early Mobility Mobility Goal Up to Chair PT/OT Invasive Lines / Tubes / Drains CVC Triple Lumen 05/16/23 Non-tunneled Right Internal jugular (Active) Number of days: 0 Peripheral IV 05/15/23 Anterior;Right Forearm (Active) Number of days: 0 Peripheral IV 05/15/23 Anterior;Left Forearm (Active) Number of days: 0 Peripheral IV 05/15/23 Right Antecubital (Active) Number of days: 0 Urethral Catheter Temperature probe (Active) Number of days: 0 Hi-Lo Evac ETT (Active) Number of days: 0 Central Line Indication: Vesicant infusions/medications at high risk of causing extravasation Does patient have a PIV in addition to a central line?: Yes - RN to discontinue PIV(s) today Pretty Indications: Hourly I&Os (Critical Care ONLY) Images from the original note were not included. [facility] Critical Care Medicine [facility] MICU Progress Note Name: Nick Hernández : 1960(63 y.o.) Date: 05/16/23 Team: MICU Attending: Dr. Kehinde Taylor Subjective: Hospital Summary: Nick Hernández is a 63 y.o. male with PMH b/l lung transplant (11/2018; immunosuppressed with Tacrolimus, Mycophenolate, Prednisone), CAD, HTN, chronic back pain that presented to [facility] on 05/15/2023 due to AMS and SOB. Per , over the last 3 months patient has lost 25 lbs and within the last month has had gradual changes to his personality described as more angry and forgetful. 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 On 05/05, patient was described as acting himself, then after climbing out of the well working, patient became SOB, agitated, and altered. The contacted transplant team at [facility] who recommended they go to ED for evaluation. While was driving to the hospital, patient began yelling at her. On arrival, he became unresponsive in the car with agonal breathing. Patient was taken out of the vehicle onto the sidewalk, and BVM ventilation was started. He regained consciousness, was transported into the ED, and stated my back hurts between my shoulder blades and I cannot feel my legs . Given Fentanyl for pain. Patient then had seizure-like activity (given versed 4mg IV) and was intubated. CT head and CTA C/A/P demonstrated atelectasis vs infiltrate in RLL. Started Vanc, Zosyn, and Acyclovir. After CT, was transported into ED room where he had more seizure activity. Neurology contacted and recommended Keppra load and started Propofol, Versed, and Fentanyl gtt. In the ICU, started on Meropenem and azithromycin, cEEG, a Central line was placed and Bronchoscopy completed. Pt's requests transfer to [facility]- called [facility] transplant team and patient was accepted for transfer. Will complete LP and MRI prior to [facility] transfer per [facility]'s request. He continues to follow with [facility] with the transplant team, he had bilateral lung transplants on 12/11/2018, EBV was donor and recipient positive, CMV donor and recipient negative. He most recently saw them on 05/09. He is on Tacrolimus 0.5 mg bid (Goal Tacrolimus level 4-6), his most recent level on 03/22/23 was 5.4, Mycophenolate 1000 mg BID, Prednisone 5 mg daily. They have been monitoring his PFTs monthly, most recently on 03/28/23 (Report is in media tab). Interval Events: - Overnight, patient admitted to ICU. A central line was placed and bronchoscopy completed. Attempted LP but unsuccessful- orders placed for IR LP. - Currently, patient is intubated and sedated. Patient is not responsive to voice or sternal rub. Does not follow commands. Review of Systems: Review of Systems Reason unable to perform ROS: intubated and sedated. Inpatient Medications: Scheduled Meds:acetaminophen, 1,000 mg, Oral, q8h Or Acetaminophen, 1,000 mg, Per G Tube, q8h acyclovir, 10 mg/kg, IntraVENous, q8h azithromycin, 250 mg, Oral, Once per day on Tue chlorhexidine, 15 mL, Mouth/Throat, BID enoxaparin, 40 mg, SubCUTAneous, Daily gabapentin, 200 mg, Oral, Daily levETIRAcetam, 1,000 mg, IntraVENous, BID meropenem, 2,000 mg, IntraVENous, q8h [Held by provider] mycophenolate, 1,000 mg, Oral, BID pantoprazole, 40 mg, IntraVENous, q AM predniSONE, 5 mg, Oral, Daily sodium chloride 0.9%, 5-40 mL, IntraCATHeter, q8h sulfamethoxazole-trimethoprim, 1 tablet, Oral, BID [Held by provider] tacrolimus, 0.5 mg, Oral, BID Continuous Infusions:propofol, 5-50 mcg/kg/min, Last Rate: 40 mcg/kg/min (05/16/23728) PRN Meds used in the last 24hr: Objective: Vitals: BP 105/66 Pulse 62 Temp 36.1 C (97 F) Resp 14 Ht 1.829 m (6') Wt 90 kg (198 lb 6.6 oz) SpO2 100% BMI 26.91 kg/m I/O: Intake/Output Summary (Last 24 hours) at 05/16/2023 1203 Last data filed at 05/16/2023 0950 Gross per 24 hour Intake 463.68 ml Output -- Net 463.68 ml Intubation/Extubation and date (If applicable): Intubated 05/15 Ventilator Settings: Vent Mode: Assist control FiO2 (%): [30 %-100 %] 30 % S RR: [14] 14 S VT: [440 mL] 440 mL PEEP/CPAP (cm H2O): [8 cm H20] 8 cm H20 MAP (cm H2O): [10] 10 Oxygen Delivery: O2 Flow Rate (L/min): 15 L/min Invasive Lines / Tubes / Drains: Peripheral IV 05/15/23 Anterior;Right Forearm (Active) Number of days: 0 Peripheral IV 05/15/23 Anterior;Left Forearm (Active) Number of days: 0 NG/OG Tube Orogastric Right mouth (Active) Number of days: 0 Urethral Catheter Temperature probe (Active) Number of days: 0 Hi-Lo Evac ETT (Active) Number of days: 0 Central Line Indication: Vesicant infusions/medications at high risk of causing extravasation Pretty Indications: Hourly I&Os (Critical Care ONLY) Restraints: Restraints Non-Violent Or Non-Self Destructive May 16, 2023 7:28 Am Edt Restraint order already placed. Order is valid for duration of episode. Wounds: Physical Exam: Constitutional: General Appearance []WDWN [x]Obese []Cachectic []Thin [x]Ill Eyes: Inspection of Pupils/Irises Pupils round and react: [x]Yes []No Sclera: []Icteric [x]Non-Icteric Inspection of Conjunctiva/Lids Conjunctiva: []Injected []Non-Injected Lids: [x]Intact []Lesion Present ENT/Mouth: External Inspection of ears/nose [x] Normal [] Scar/Lesion/Mass Inspection of teeth/lips/gums Dentition: [x][place] Teeth []Dentures Lips/Gums: [x]Intact []Lesion Present Mucosa: [x][place] []Moist []Dry Neck: External Appearance Overall Appearance: [x]Normal []Lesion/Mass/Crepitus Present Trachea midline: []Yes []No Thyroid []Normal []Enlarged []Tender []Mass []Absent Respiratory: Respiratory effort []Labored []Non-Labored [x] Mechanically-Ventilated Auscultation [x]Clear []Crackles []Wheezes []Rhonchi Cardiovascular: Auscultation Rate: [x]Regular []Irregular []Tachycardia []Bradycardia Rhythm: [x]Regular []Irregular Murmur: []Present [x]Absent Extremities Peripheral Edema: []Present [x]Absent Varicosities: []Present [x]Absent Gastrointestinal: Abdomen Palpation: [x]Soft []Firm []Tender []Non-Tender []Distended [x]Non-distended Mass: []Present [x]Absent Bowel Sounds: []Present [x]Absent Hernia: []Present []Absent Liver/Spleen: []Hepatosplenomegaly []Organomegaly Absent Musculoskeletal: Inspection of Digits and Nails Cyanosis: []Present [x]Absent Clubbing: []Present [x]Absent Ischemia: []Present [x]Absent Infection: []Present [x]Absent Extremities SANDS Equally: Except ([]RUE []RLE []LUE []LLE) Strength/Tone: Intact and Normal ([]RUE []RLE []LUE []LLE) Skin: Inspection [x]Normal []Rash []Lesion []Ulcer Palpation [x]Warm []Cool [x]Dry []Clammy []Nodules []Induration []Skin-tightening Cap-Refill: [x] <3 sec [] >3 seconds (delayed) Neurologic: GCS EYE: 1 - No eye opening GCS MOTOR: 4 - Withdraws from pain GCS VERBAL: 1 - No response intubated Total GCS: 6 [] Sensation grossly intact Psych: Mental Status Alert: []Yes [x] No Oriented: []x0 []X1 []X2 []x3 Mood/Affect []Normal []Flat []Agitated []Depressed []Anxious []Calm [x]Sedated []NAD Pertinent labs within last 24 hours: ABG: Lab Results Component Value Date PHART 7.379 05/15/2023 [id number] 34.3 (L) 05/15/2023 PO2ART 286.7 (H) 05/15/2023 [id number] 19.8 (L) 05/15/2023 [id number] 70% Oxygen 05/15/2023 BMP: Lab Results Component Value Date NA 137 05/16/2023 K 3.5 05/16/2023 CL 111 (H) 05/16/2023 CO2 21 (L) 05/16/2023 BUN 16 05/16/2023 CREATININE 0.99 05/16/2023 GLUCOSE 98 05/16/2023 CALCIUM 8.3 (L) 05/16/2023 MG 1.9 05/16/2023 PHOS 3.1 05/16/2023 LFTs: Lab Results Component Value Date AST 30 05/16/2023 ALT 27 05/16/2023 ALKPHOS 56 05/16/2023 ALBUMIN 3.6 05/16/2023 BILITOT 0.4 05/16/2023 PROT 5.9 (L) 05/16/2023 CBC: Lab Results Component Value Date WBC 7.4 05/16/2023 HGB 12.1 (L) 05/16/2023 HCT 38.2 (L) 05/16/2023 MCV 91.4 05/16/2023 PLT 158 05/16/2023 RDW 15.5 (H) 05/16/2023 Other Chem: Lab Results Component Value Date PROCAL 0.06 05/15/2023 Coagulation: Lab Results Component Value Date INR 1.1 05/15/2023 INR 1.0 12/10/2019 INR 1.0 09/03/2019 Cardiac profile: TROPONIN I Date Value Ref Range Status 05/15/2023 <0.012 0.000 - 0.034 ng/mL Final Labs within the Last 3 months: Lipid panel: No results found for: CHOL, HDL, TRIG Endo profile: Lab Results Component Value Date HGBA1C 5.8 (A) 03/02/2022 PSA 1.587 07/16/2020 Microbiology: Cultures and gram-stain: Blood Culture Date Value Ref Range Status 05/15/2023 Blood culture incubation started Preliminary 05/15/2023 Blood culture incubation started Preliminary Respiratory culture Date Value Ref Range Status 05/16/2023 Culture in progress Preliminary MRSA by PCR: Lab Results Component Value Date STAPHAUREUS Not Detected 05/16/2023 MECA Not Detected 05/15/2023 COVID-19 & Respiratory PCR Panel: Lab Results Component Value Date SARSCOV2 Not Detected 05/15/2023 ADENOVIRUS Not Detected 05/16/2023 CORONAHKU1 Not Detected 05/15/2023 LHCYKBYW22 Not Detected 05/15/2023 GGMDUM861L Not Detected 05/15/2023 NFANMCBH65 Not Detected 05/15/2023 HUMANMETAPNE Not Detected 05/16/2023 RHINOENTERO Not Detected 05/16/2023 INFLUENZAA Not Detected 05/16/2023 INFLUENZAB Not Detected 05/16/2023 PARIN1 Not Detected 05/15/2023 PARIN2 Not Detected 05/15/2023 PARIN3 Not Detected 05/15/2023 PARIN4 Not Detected 05/15/2023 RSV Not Detected 05/16/2023 BORDETELLAPE Not Detected 05/15/2023 BORDETELLAPA Not Detected 05/15/2023 CHLAMYDPNEU Not Detected 05/15/2023 MYCOPLASMAPN Not Detected 05/16/2023 Pneumonia PCR Panel: Negative Urine Antigens: Lab Results Component Value Date LEGURQUAL Not Detected 05/15/2023 STREPPNEUMON Not Detected 05/16/2023 Imaging: === 05/15/23 === XR ABDOMEN 1 VIEW - Impression - An OG tube is not identified. Please correlate clinically. Report Dictated on Electronically Signed By: Tu Munoz MD Electronically Signed Date/Time: 05/16/2023 1:50 AM EDT === 05/15/23 === CT HEAD WO IV CONTRAST - Impression - 1. No acute intracranial findings. 2. Chronic ischemic changes suspected. Report Dictated on Electronically Signed By: Tyler Shore MD Electronically Signed Date/Time: 05/15/2023 7:41 PM EDT No results found for this or any previous visit from the past 3 days. Assessment and Plan: Principal Problem: Acute respiratory failure with hypoxia and hypercapnia (CMS/HCC) (HCC) Assessment: Acute encephalopathy, unclear origin -possible 2/2 WILDLIFE PHOTOGRAPHER infection given Status epilepticus Acute hypoxic respiratory failure - intubated HAGMA - improved ISAISA, pre-renal - improved S/p bilateral lung transplant for end-stage COPD 12/11/2018 (on tacrolimus, cellcept, and prednisone + bactrim and azithro ppx) Chronic R hemidiaphragm paralysis HTN Chronic Back pain Hx pAF post-transplant (now resolved) Plan: Acute encephalopathy, unclear origin- possible 2/2 WILDLIFE PHOTOGRAPHER infection Status epilepticus Acute hypoxic respiratory failure - intubated Intubated Repeat ABG today Sedated with Propofol gtt. Discontinued Fentanyl and Versed gtts Pending MRI brain wo contrast Neuro Critical Care consult, appreciate recs On cEEG Keppra 1000mg BID e. IR LP ordered with CSF labs f. Blood and Fungal Blood cultures ordered per ID recommendations g. Empiric treatment with Meropenem, Acyclovir, x1 vancomycin, x1 zosyn 2. S/p bilateral Lung transplant on chronic immunosuppression a. Home meds: tacrolimus, mycophenolate, prednisone -holding tacrolimus and mycophenolate due to ISAIAS and possibly toxicity -tacrolimus level ordered, pending -continue prednisone 5mg daily b. On Bactrim and Azithromycin for prophylaxis 3. HAGMA - improved ISAIAS, pre-renal - improved a. Daily CMP 4. HTN a. Holding home BP meds as pt normotensive 5. Chronic back pain a. Home gabapentin - dose reduced due to ISAIAS & AMS requests transfer to [facility] as they follow with transplant team there. [facility] has been contacted and accepted pt for transfer. Will complete LP and MRI at [facility] today per [facility]'s request. Goals of Care: Full Code Diet: NPO GI Prophylaxis: Pantoprazole IV DVT Prophylaxis: Lovenox 40 q 24hr - creatinine clearance >30 Disposition: Remain in ICU Status until transfer to [facility]. Patient has been accepted. Associated attestation - Kehinde Taylor MD - 05/16/2023 4:10 PM EDT I have personally performed a face to face diagnostic evaluation on this patient. Labs, imaging studies and electronic medical record have been reviewed by me. This note documented and discussed by equipment operator warehouse Dr. Chester reflects my history, exam and medical decision making. I have reviewed and agree with the care plan. Changes were made in the orders as necessary. My history, exam, assessment and plan are as follows. Mr. Hernández is a 63-year-old man with medical history notable for previous bilateral lung transplantation due to COPD, continue immunosuppression with tacrolimus, prednisone and mycophenolate, unknown right bronchus intermedius stenosis, chronic right hemidiaphragm paralysis, prior history of bronchial granulation tissue requiring repeat excisions. He has no prior known history of rejection. No prior known history of opportunistic infections. His transplant was done at [facility] and he just saw them in clinic last week. He was brought in by his due to acute change in mentation. She denied prior fevers, chills, headache, rashes. There is apparently working on there well and acutely felt ill with burning chest pain and shortness of breath and looked clammy. His drove him in her car and she reported noticing seizures in route to the hospital. Other seizures were noted here by our ED staff and he was intubated for airway protection. His also reports some personality changes and bizarre behavior ongoing intermittently for the last 2 months. He has several exposures to farm animals, frequent consumer of cured meats, but no known history of consuming unpasteurized dairy products, no known sick contacts. No recent rashes. No change in urination. All history obtained from . overnight, bedside lumbar puncture was unsuccessful so today we are attempting to get lumbar puncture done by IR. Also getting MRI brain to look for PRES given known association with tacrolimus. Continue broad-spectrum antibiotics with the addition of acyclovir. Infectious disease consulted. He was loaded with levetiracetam in the ED for seizures. Was deeply sedated here with propofol and midazolam infusions. Midazolam infusion stopped this morning. Continues on propofol. Continuous EEG is running. As of this morning, no clear epileptiform activity was reported from EEG but brief generalized bursts of fast activity intermixed with brief intervals of generalized attenuation consistent with burst attenuation was present but may have been secondary to deep sedation. Discussed extensively with his . Discussed utility of transferring patient to [facility] given that is where his lung transplant was done and where he follows consistently. He was accepted for transfer out of [facility] and we are in the process of arranging transportation right now. We will follow-up about diagnostic results Objective Vitals: 05/16/23 1100 05/16/23 1200 05/16/23 1300 05/16/23 1400 BP: 105/66 112/64 118/82 101/60 BP Location: Left arm Patient Position: Pulse: 62 64 72 67 Resp: 14 14 21 14 Temp: 36.1 C (97 F) 36.1 C (97 F) 36.1 C (97 F) 36.3 C (97.3 F) TempSrc: Bladder SpO2: 100% 100% 100% 100% Weight: Height: Physical Exam: General Appearance: []WDWN []Obese []Cachectic []Thin [x]ill Skin: Temperature [x]Warm []Cool Rash []Yes [x]No Tattoo(s) [x]Yes []No HEENT: Pupils round and react [x]Yes []No Sclera []Icteric [x]Non-Icteric Conjunctiva []Injected [x]Non-Injected Pinnae [x]Normal []Other Dentitian [x][place] Teeth []Dentures []edentulous Oral Mucosa [x][place]illed[place] [x]Moist []Dry Oral ETT [x]Present []Absent Neck: Trachea midline [x]Yes []No Thyromegaly []Yes [x]No Crepitus []Present [x]Absent Jvd []Present [x]Absent Lungs: [x]Clear []Crackles []Wheezes []Rhonchi Respiratory effort []Labored [x]Non-Labored Heart: Rate [x]Regular []Irregular []Tachycardia []Bradycardia Rhythm [x]Regular []Irregular Murmur []Present [x]Absent Peripheral Edema []Present [x]Absent Abdomen: [x]Soft Bowel Sounds [x]Present []Absent []Tender [x]Non-Tender []Distended []Non-distended Hernia []Present [x]Absent Organomegaly []Present [x]Absent []unable to assess 2/2 body habitus []Scar Extremities: Cyanosis []Present [x]Absent SANDS ([]RUE []RLE []LUE []LLE) - no spontaneous movements due to deep sedation Neurologic: SHOSHONE-PAIUTE []Yes []No Corneal reflexes [x]Present []Absent Plantar reflexes []Up []Down []Absent Withdraws to tactile []Yes []No Follows Commands []Yes [x]No [x]Unresponsive to verbal []Cranial nerves grossly intact []Sensation grossly intact Deeply sedated, unable to complete full neuro exam Psych: Alert []yes [x]no Oriented []x0 []x1 []x2 []x3 Affect []Normal []Flat []Agitated []Anxious []Calm [x]Sedated []NAD I have spent a total critical care time of 45 minutes in the care of this critically ill patient excluding any other separately billable procedures but including clinical evaluation, decision making , coordination of care, consultations and documentation time. Portions of the information within this encounter were entered using an electronic dictation system. Best attempts were made to edit/proofread the information prior to note completion. Despite the review of information, some errors may remain. If there are questions related to the information contained within the note please contact the signing physician directly. documented in this encounter [facility] 05-16-2023 Consult note Associated Order (s): IP CONSULT TO DIETITIAN Nutrition Assessment Type and Reason for Visit: Initial, Consult (TF ordering and management- mechanical vent bundle) Nutrition Recommendations/Plan: 1. Pt is currently intubated/sedated (versed and propofol @ 22.8mls/hr = 602 lipid kcals over 24 hour time period. Recommend pt not be without nutrition for >72 hours of admit if medically able. --> when EN to begin, consider goal of: Vital AF 1.2 @ goal rate of 55mls/hr to provide 1584 kcals + 602 lipid kcals via propofol (@22.8mls/hr), 99gm protein, 1071mL free fluid (27kcals/kg, 1.2gm/kg IBW). --> will continue to monitor sedation requirements and need to adjust formula recommendations if propofol rate is decreased or discontinued altogether. 2. Will monitor tolerance of nutrition as initiated and increased to goal. / 3. 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 4. Will continue to monitor weight changes, labs and overall nutrition status 5. RD will continue to follow up weekly Malnutrition Assessment: Malnutrition Status: Insufficient data (will monitor ability to obtain more subjective data related to nutrition intake and more recent weight trends- pt currently intubated/sedated) Context: Chronic Illness (pt presented acutely due to AMS and SOB, however pt reported that pt has been more forgetful over recent months and she has noticed personality changes with associated weight loss over 3 month time period) Findings of the 6 clinical characteristics of malnutrition: Energy Intake: Unable to assess (pt is intubated/sedated, no family in room at time of RD visit, will monitor ability to obtain subjective data r/t nutrition intake BUCKLE ASSEMBLER as well as timing of EN initiation during admit, currently propofol providing 602 lipid kcals over 24 hour time period) Weight Loss: Unable to assess ( reported 25# wt loss x3 months, CBW 198# no method 05/16, 207# no method 05/15, per EPIC--> 05/31: 211#, 07/30: 208#, 11/08: 218#, utilizing wt from 10/2022 pt with 9.2% loss x6 months = not significant, however need more data r/t wt trends x3 months) Body Fat Loss: (deferred, pt is intubated/sedated, cEEG in place- did not want to manipulate pt in bed) Muscle Mass Loss: (deferred, pt is intubated/sedated, cEEG in place- did not want to manipulate pt in bed) Fluid Accumulation: No significant fluid accumulation Outsole Compressor Strength: Not Performed Nutrition Assessment: pt with PMH significant for bilateral lung transplant (2019- follows with [facility] transplant team, immunosuppressed with Tacrolimus, Mycophenolate, Prednisone) CAD, HTN and chronic back pain who presented to [facility] ED on 05/15/23 from home due to AMS and SOB, pt reported that over the past 3 months pt has lost about 25# and then over the past month his personality has slowly changed- she stated pt has been more angry and forgetful, 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 he has multiple projects that he does around the home such as abdias and most recently working on their ground water well, stated in the AM he was at his baseline but after climbing out of the well yesterday he started having SOB and became agitated and altered, pt called transplant team at [facility] who recommended they present to the ED for evaluation, while they were driving to the hospital pt said that he was yelling at her and when they arrived to the ED he became unresponsive in the car with agonal breathing, ED team was able to take pt out of the car and place him on the sidewalk, they started ventilating with BVM and transported him into the ED, pt did become more responsive but started having seizure like activity, pt was intubated in the ED and seizure treated with IV versed 4, CT head and CTA C/A/P obtained which showed some atelectasis vs infiltrate in the RLL and no other acute changes, upon transport back to ED room he started having more seizure activity, Neurology was contacted and pt was transferred to ICU for further management, LP was attempted bedside in ICU however unsuccessful thus IR LP ordered with labs, central line placed, bronch completed, NCC consulted and cEEG has been initiated, at time of assessment pt remains NPO, intubated/sedated (fentanyl d/c, versed and propofol remain running, propofol observed @ 22.8mls/hr in room = 602 lipid kcals over 24 hour time period), no family/visitors were present in room, RN was at bedside, pt CBW 198# no method on 05/16, was 207# no method on 05/15, per EPIC review --> 04/05/22: 214#, 05/31: 211#, 07/30: 208#, 11/08: 218#, as noted above pt reported 25# weight loss over 3 month time period, utilizing weight from 11/08/22 of 218# to CBW 198# = 9.2% weight loss- will continue to monitor trends, as TF ordering and management consult placed as part of mechanical vent bundle will provide EN recommendations only at this time and leave nutrition initiation per MD discretion. Estimated Daily Nutrient Needs: Energy Requirements Based On: Kcal/kg Weight Used for Energy Requirements: [place] Weight for Energy Calculation (kg): 80.9 kg Total Energy Requirements (kcals/day): 2022-5kcals/day Weight Used for Protein Requirements: [place] Weight in Kg Used for Protein Requirements: 80.9 kg Estimated Total Protein (g/day): 81-97gm pro/day Estimated Daily Total Fluid (ml/day): per MD recommendations Nutrition Related Findings: Jresey = 12, +I/O, intubated/sedated (fentanyl d/c, versed and propofol (@22.8mls/hr) remain running), cEEG in place, missing teeth Wound Type: None (coccyx redness) Current Nutrition Therapies: NPO diet Current Oral Intake Average Meal Intake: NPO Average Supplements Intake: NPO Anthropometric Measures: Height: 182.9 cm (6') Current Body Weight: 89.8 kg (198 lb) (no method 05/16) Weight Source: Not Specified Admission Body Weight: 93.9 kg (207 lb) (no method 05/15) Usual Body Weight: 98.9 kg (218 lb) (per [facility] review --> 04/05/22: 214#, 05/31: 211#, 07/30: 208#, 11/08: 218#- of note pt reported 25# weight loss x3 months) % Weight Change (Calculated): -9.2 [place] Body Weight (lbs) (Calculated): 178 lbs [place] Body Weight (Kg) (Calculated): 81 kg % [place] Body Weight (Calculated): 111.2 % BMI (kg/m2) (Calculated): 26.8 Weight Adjustment For: No Adjustment BMI Categories: Overweight (BMI 25.0-29.9) Nutrition Diagnosis: Inadequate energy intake related to cognitive or neurological impairment, impaired respiratory function as evidenced by NPO or clear liquid status due to medical condition, intubation Unintended weight loss related to (presented due to AMS and SOB, reported that pt has been more forgetful over recent months and she has noticed personality changes) as evidenced by ( reported weight loss of 25# x3 months) Nutrition Interventions: Nutrition Education/Counseling: No recommendation at this time Coordination of Nutrition Care: Continue to monitor while inpatient Goals: Goals: Initiate nutrition support, within 2 days Nutrition Monitoring and Evaluation: Behavioral-Environmental Outcomes: None Identified Food/Nutrient Intake Outcomes: Enteral Nutrition Intake/Tolerance Physical Signs/Symptoms Outcomes: Biochemical Data, GI Status, Fluid Status or Edema, Hemodynamic Status, Weight, Skin, Nutrition Focused Physical Findings Discharge Planning: Too soon to determine Juli Manning RD Contact: available via [employer] or *[phone] [facility] 05-16-2023 Consult note Associated Order (s): IP CONSULT TO NEUROCRITICAL CARE INITIAL CONSULT NOTE. STROKE SERVICE Patient Name: Nick Hernández Patient : 1960 Acct: [id number] Date of Admission: 05/15/2023 Room[facility]Bed: [facility] A PCP: LIANA LOJA History of Present Ilness: 63 y.o. is unknown handed male with the chief Complaint of:seizure-like activity, AMS, SOB. Per , patient has lost 25 lbs in the past 3 months and more angry and forgetful in the past month. Complain : Patient climbed out after working on water well at home, became SOB, agitated, altered. In route to ED, patient began yelling at , and on arrival patient was unresponsive with agonal breathing. Patient then began having seizure-like activity and was intubated and given 4 mg Versed. Additional seizure-like activity, and patient was given Keppra load with propofol, versed, fentanyl gtt. Transferred to ICU for monitoring and management. cEEG started, and patient placed on broad spectrum abx. Associated symptoms: Seizure-like activity, AMS, SOB This occurred in the setting of: CAD, HTN, B/L lung transplant in 2019. He follows with [facility] transplant team, on tacrolimus, mycophenolate, prednisone. PFTs most recently on 03/28/23. Past Medical History: @[facility]@ [facility] Home Medications: Prior to Admission medications Medication Sig Start Date End Date Taking? Authorizing Provider acetaminophen (Tylenol) 325 MG tablet Take 650 mg by mouth every 6 hours as needed. 05/03/22 Historical Provider, alendronate (Fosamax) 70 MG tablet Take 70 mg by mouth. 04/09/19 Historical Provider, amLODIPine (Norvasc) 5 MG tablet Take 5 mg by mouth in the morning. 07/30/22 Historical Provider, aspirin 81 MG chewable tablet Chew 81 mg. 04/09/19 Historical Provider, azithromycin (Zithromax) 250 MG tablet Take 250 mg by mouth. 06/09/22 Historical Provider, azithromycin (Zithromax) 500 MG tablet Take 500 mg by mouth. Historical Provider, calcium citrate-vitamin D2 (Citracal+D) 315-200 MG-UNIT tablet Take 1 tablet by mouth in the morning and 1 tablet in the evening. 07/01/22 Historical Provider, calcium citrate-vitamin D2 315-250 MG-UNIT tablet Take 1 tablet by mouth. 04/09/19 Historical Provider, carvedilol (Coreg) 25 MG tablet Take 25 mg by mouth in the morning and 25 mg in the evening. 07/07/22 Historical Provider, ergocalciferol (Vitamin D-2) 1.25 MG (12047 UT) capsule Take 50,000 Units by mouth. 04/05/19 Historical Provider, gabapentin (Neurontin) 400 MG capsule Take 400 mg by mouth. 04/29/22 Historical Provider, gabapentin (Neurontin) 800 MG tablet Take 800 mg by mouth. Historical Provider, glucose blood (OneTouch Ultra) test strip 400 strips in the morning and 400 strips in the evening. 04/29/22 Historical Provider, HYDROcodone-acetaminophen (Voss) 10-325 MG tablet Take 1 tablet by mouth every 6 hours as needed. Historical Provider, ipratropium-albuterol (Combivent Respimat) 20-100 MCG/ACT inhaler Inhale 3 mL in the morning and 3 mL at noon and 3 mL in the evening and 3 mL before bedtime. Historical Provider, Lecithin 1200 MG capsule Take 1,200 mg by mouth in the morning. Historical Provider, magnesium oxide (Mag-Ox) 400 MG tablet Take 800 mg by mouth in the morning and 800 mg in the evening. 04/09/19 Historical Provider, Multiple Vitamins-Iron tablet Take 1 tablet by mouth. 04/09/19 Historical Provider, mycophenolate (Cellcept) 250 MG capsule Take 1,000 mg by mouth in the morning and 1,000 mg before bedtime. 04/03/19 Historical Provider, naloxone (Narcan) 4 mg/0.1 mL nasal spray Administer 1 spray into affected nostril(s). 08/14/19 Historical Provider, oxybutynin XL (Ditropan-XL) 10 MG 24 hr tablet Take 10 mg by mouth in the morning. 04/23/22 Historical Provider, pantoprazole (ProtoNix) 40 MG EC tablet Take 40 mg by mouth in the morning and 40 mg in the evening. 04/09/19 Historical Provider, predniSONE (Deltasone) 5 MG tablet Take 5 mg by mouth. 06/07/19 Historical Provider, rosuvastatin (Crestor) 10 MG tablet Take 10 mg by mouth in the morning. 04/09/19 Historical Provider, SITagliptin (Januvia) 100 MG tablet Take 100 mg by mouth. 04/09/19 Historical Provider, sulfamethoxazole-trimethoprim (Bactrim DS) 800-160 MG tablet Take 1 tablet by mouth in the morning and 1 tablet before bedtime. 08/10/21 Historical Provider, tacrolimus (Prograf) 0.5 MG capsule Take 1 mg by mouth. 08/06/19 Historical Provider, therapeutic lzikpgwblbuv-rnnb-wikggekz (Theragran-M) tablet Take 1 tablet by mouth in the morning. 07/01/22 Historical Provider, Current Hospital Medications: Current Facility-Administered Medications: acetaminophen (Tylenol) tablet 1,000 mg, 1,000 mg, Oral, q8h OR Acetaminophen (Tylenol) 650 MG/20.3ML solution 1,000 mg, 1,000 mg, Per G Tube, q8h, Derek Cordova DO acyclovir (Zovirax) 950 mg in sodium chloride 0.9 % 150 mL IVPB, 10 mg/kg, IntraVENous, q8h, Oscar Chan MD, Stopped at 05/16/23 0545 azithromycin (Zithromax) tablet 250 mg, 250 mg, Oral, Once per day on Tue, Derek Cordova DO chlorhexidine (Peridex) 0.12 % solution 15 mL, 15 mL, Mouth/Throat, BID, Oscar Chan MD, 15 mL at 05/15/23 2105 enoxaparin (Lovenox) syringe 40 mg, 40 mg, SubCUTAneous, Daily, Derek Cordova DO fentaNYL (Sublimaze) 1000 mcg in sodium chloride 0.9 % 100 mL 10 mcg/mL infusion, 25-200 mcg/hr, IntraVENous, Continuous, Oscar Chan MD, Stopped at 05/16/23 0549 gabapentin (Neurontin) capsule 200 mg, 200 mg, Oral, Daily, Derek Cordova DO levETIRAcetam (Keppra) 1,000 mg in sodium chloride 0.9 % 100 mL IVPB, 1,000 mg, IntraVENous, BID, Kathleen Rodas DO meropenem (Merrem) 2,000 mg in sodium chloride 0.9 % 100 mL IVPB, 2,000 mg, IntraVENous, q8h, Derek Cordova DO, Stopped at 05/16/23 0055 midazolam (Versed) 50 mg/50mL infusion, 1-10 mg/hr, IntraVENous, Continuous, Oscar Chan MD, Last Rate: 10 mL/hr at 05/16/23 0525, 10 mg/hr at 05/16/23 0525 [Held by provider] mycophenolate (Cellcept) capsule 1,000 mg, 1,000 mg, Oral, BID, Derek Cordova DO ondansetron ODT (Zofran-ODT) disintegrating tablet 4 mg, 4 mg, Oral, q8h PRN OR ondansetron (Zofran) injection 4 mg, 4 mg, IntraVENous, q6h PRN, Derek Cordova DO pantoprazole (ProtoNix) injection 40 mg, 40 mg, IntraVENous, q AM, Derek Cordova DO polyethylene glycol (PEG) 3350 (Miralax) packet 17 g, 17 g, Oral, Daily PRN, Derek Kepko, DO predniSONE (Deltasone) tablet 5 mg, 5 mg, Oral, Daily, Derek Kepko, DO propofol (Diprivan) infusion, 5-50 mcg/kg/min, IntraVENous, Continuous, Derek Kepko, DO, Last Rate: 22.8 mL/hr at 05/16/23728, 40 mcg/kg/min at 05/16/23728 sodium chloride 0.9% (NS) flush 5-40 mL, 5-40 mL, IntraCATHeter, q8h, Derek Kepko, DO, 10 mL at 05/16/23 0145 sodium chloride 0.9% (NS) flush 5-40 mL, 5-40 mL, IntraVENous, PRN, Derek Kepko, DO sulfamethoxazole-trimethoprim (Bactrim DS) 800-160 MG per tablet 1 tablet, 1 tablet, Oral, BID, Derek Kepko, DO [Held by provider] tacrolimus (Prograf) capsule 0.5 mg, 0.5 mg, Oral, BID, Derek Kepko, DO Continuous Infusions: fentaNYL, 25-200 mcg/hr, Last Rate: Stopped (05/16/23548) midazolam, 1-10 mg/hr, Last Rate: 10 mg/hr (05/16/23524) propofol, 5-50 mcg/kg/min, Last Rate: 40 mcg/kg/min (05/16/23728) Allergies: Codeine, Fluticasone, Fluticasone furoate-vilanterol, Nsaids, Vilanterol, and Wound dressing adhesive Social History: TOBACCO: reports that he has never smoked. He has never used smokeless tobacco. ETOH: has no history on file for alcohol use. RECREATIONAL DRUG USE: Social History Substance and Sexual Activity Drug Use Not on file Family History: :Unable to obtain, due to patient level of consciousness, no data on file, no family able to provide information @[facility]@ ROS; :Unable to obtain ROS due to patientintubated . Unable to obtain review of systems due to patient sedated Review of Systems Physical Examination: Patient Vitals for the past 8 hrs: BP Temp Temp src Pulse Resp SpO2 Weight 05/16/23 0700 106/61 -- -- 61 14 100 % -- 05/16/23 0600 99/61 -- -- 63 14 100 % 90 kg (198 lb 6.6 oz) 05/16/23 0500 124/70 -- -- 68 14 100 % -- 05/16/23 0445 -- -- -- 60 14 100 % -- 05/16/23 0400 110/67 36.1 C (97 F) Temporal 63 14 100 % -- 05/16/23 0300 103/63 -- -- 69 14 100 % -- 05/16/23 0200 131/77 -- -- 66 14 100 % -- 05/16/23 0100 103/66 -- -- 59 14 100 % -- I/O last 3 completed shifts: In: 258.4 (2.9 mL/kg) [I.V.:258.4 (2.9 mL/kg)] Out: - (0 mL/kg) Weight: 90 kg General Physical Examination: General: Not alert, intubated, sedated, obese, ill HEENT:Normocephalic, atraumaticl CV: S1+S2, RRR, no MRG. Pulm: Intubated and mechanically ventilated Abdomen: Soft NT/ND. BS + Skin: Intact without ulcers, breakdowns or discoloration Extremities: normal with no edema or cyanosis Orthopedic limitation; N/A Pulses: Intact peripherally Carotid auscultation :No bruits Neurological Examination: Higher Functions: Mental Status Exam: Level of Alertness:Sedated Orientation: intubated, can't talk Memory: intubated, can't talk Fund of Knowledge: intubated, can't talk Language: intubated, can'ttalk Dysarthria Intubated Cranial Nerves: -II Visual acuity: abnormal, limited due to patient unable to perform exam, patient sedated -II Visual schulz: poor reliability due to patient level ofconsciousness or structural limitation, patient sedated -III Pupils (~ 3 mm OD, 3 mm OU) equal, round, reactive to light; fixed, midline -III-IV- Extraocular Movements: Not tracking, patient sedated -Nystagmus not tracking, patient sedated -Saccades and pursuits not tracking, patient sedated -V Facial sensation: unable to perform test, patient sedated Corneal's Intact bilateral -VII Facial strength: unable to assess, patient sedated -VIII Hearing: unable to assess, patient sedated -IX-X- Gag reflex Intubated -X Palate: limited due to patient level of consciousness -XI Shoulder shrug: limited due to patient level of consciousness -XII Tongue movement: limited due to patient level of consciousness Funduscopic Exam: normal, no edema or exudates both eyes Motor Examination: Tone after evaluation of 4 limbs, the following findings applied: Normal upper extremities; decreased tone in the lower extremities -Bulk: normal -Muscle Stretchafter evaluation of all limbs, and axial musculature the following findings applied: Drift: absent patient is unable to move limbs due to sedation or acute medical circumstances -Reflexes: after evaluation of 4 limbs, the following findings applied ; decreased in all limbs -Plantar responce: upgoing right toe, downgoing left toe Sensory patient unable to assist with exam due toaphasia,level of consciousness, cognition or poor participation, Coordination: Arms patient unable to perform test due to sedation, paralysis or limb orthopedic circumstances Legs patient unable to perform testdue to sedation, paralysis or limb orthopedic circumstances Tremors patient unable to perform test due to sedation, paralysis or limb orthopedic circumstances Gait abnormal, unable to walk due to sedation, paralysis or limb orthopedic circumstances Results Labs: Last 24hrs Recent Results (from the past 24 hour(s)) POCT glucose meter Collection Time: 05/15/23 7:01 PM Result Value Ref Range Glucose 294 (H) 70 - 100 mg/dL CBC auto differential Collection Time: 05/15/23 7:08 PM Result Value Ref Range Auto WBC 7.8 3.6 - 10.7 10*3/uL RBC 4.96 4.40 - 5.90 10*6/uL Hemoglobin 14.5 13.0 - 18.0 g/dL Hematocrit 44.8 40.0 - 52.0 % MCV 90.4 80.0 - 98.0 fL MCH 29.2 26.0 - 34.0 pg MCHC 32.3 32.0 - 36.0 % RDW 15.3 (H) 11.5 - 14.5 % Platelets 192 140 - 440 10*3/uL MPV 8.4 7.4 - 12.4 fL nRBC 0.0 0.0 - 2.0 /100 WBCs Neutrophils Relative 72.1 40.0 - 80.0 % Lymphocytes Relative 19.4 (L) 20.0 - 40.0 % Monocytes Relative 8.1 2.0 - 10.0 % Eosinophils Relative 0.2 (L) 1.0 - 6.0 % Basophils Relative 0.2 0.0 - 2.0 % Neutrophils Absolute 5.6 1.8 - 7.0 10*3/uL Lymphocytes Absolute 1.5 1.0 - 4.3 10*3/uL Monocytes Absolute 0.6 0.0 - 0.8 10*3/uL Eosinophils Absolute 0.0 0.0 - 0.5 10*3/uL Basophils Absolute 0.0 0.0 - 0.2 10*3/uL Basic metabolic panel Collection Time: 05/15/23 7:08 PM Result Value Ref Range SODIUM 137 135 - 145 mmol/L POTASSIUM 4.2 3.5 - 5.1 mmol/L CHLORIDE 108 (H) 98 - 107 mmol/L CARBON DIOXIDE 16 (L) 22 - 30 mmol/L UREA NITROGEN 21 (H) 9 - 20 mg/dL CREATININE 1.60 (H) 0.66 - 1.25 mg/dL GLUCOSE 111 (H) 70 - 100 mg/dL CALCIUM 11.0 (H) 8.4 - 10.4 mg/dL ANION GAP 14 (H) 3 - 13 mmol/L eGFR 48.7 (L) >60.0 mL/min/1.73m*2 Troponin I Collection Time: 05/15/23 7:08 PM Result Value Ref Range TROPONIN I <0.012 0.000 - 0.034 ng/mL Prolactin Collection Time: 05/15/23 7:08 PM Result Value Ref Range PROLACTIN 14.8 4.0 - 18.0 ng/mL Magnesium Collection Time: 05/15/23 7:08 PM Result Value Ref Range MAGNESIUM 2.0 1.6 - 2.3 mg/dL Phosphorus Collection Time: 05/15/23 7:08 PM Result Value Ref Range PHOSPHORUS 2.1 (L) 2.5 - 4.5 mg/dL Hepatic function panel Collection Time: 05/15/23 7:08 PM Result Value Ref Range BILIRUBIN, TOTAL 1.0 0.2 - 1.3 mg/dL BILIRUBIN, DIRECT 0.0 0.0 - 0.3 mg/dL ALKALINE PHOSPHATASE 75 38 - 126 U/L AST (SGOT) 39 15 - 46 U/L ALT 34 0 - 49 U/L ALBUMIN 5.0 3.5 - 5.0 g/dL TOTAL PROTEIN 8.0 6.3 - 8.2 g/dL Procalcitonin Test Collection Time: 05/15/23 7:08 PM Result Value Ref Range PROCALCITONIN 0.06 0.00 - 0.09 ng/mL ECG 12 lead Collection Time: 05/15/23 7:13 PM Result Value Ref Range Heart Rate 80 bpm QRSD Interval 89 ms QT Interval 379 ms QTC Interval 436 ms P [place] 44 degrees QRS [place] 89 degrees T Wave [place] -[address] Interval 168 ms Complete Urinalysis Collection Time: 05/15/23 7:55 PM Result Value Ref Range Color, Urine Yellow Lt. Yellow Clarity, Urine Clear Clear pH, Urine 5.5 5.0 - 8.0 pH Leukocytes, Urine Negative Negative Chacorta/uL Nitrite, Urine Negative Negative Protein, Urine 10 (A) Negative mg/dL Glucose, Urine Normal Normal (<70) mg/dL Bilirubin, Urine Negative Negative mg/dL Ketones, Urine 20 (A) Negative mg/dL Urobilinogen, Urine Normal Normal (0-1) mg/dL Blood, Urine Negative Negative mg/dL RBC, Urine 3-5 (A) 0 - 2 /HPF WBC, Urine 3-5 0 - 5 /HPF Squamous Epithelial, Urine Negative 3 - 5 /HPF Bacteria, Urine Negative Negative /HPF Mucus, Urine Few Negative /LPF Hyaline Casts, Urine 3-5 (A) Negative /LPF SPECIFIC GRAVITY OF URINE (NUMERIC) 1.039 (H) 1.005 - 1.030 Legionella and Streptococcus Urine Antigen Collection Time: 05/15/23 7:55 PM Specimen: Urine, Clean Catch Result Value Ref Range Legionella pneumophila Ag Not Detected Not Detected Streptococcus pneumoniae Ag Not Detected Not Detected Blood culture #1 - Suspected Infection Collection Time: 05/15/23 8:16 PM Specimen: Blood, Venous Result Value Ref Range Blood Culture Blood culture incubation started Blood culture #2 - Suspected Infection Collection Time: 05/15/23 8:16 PM Specimen: Blood, Venous Result Value Ref Range Blood Culture Blood culture incubation started Sodium, urine, random Collection Time: 05/15/23 9:06 PM Result Value Ref Range SODIUM, URINE 97 (H) 30 - 90 mmol/L Creatinine, urine, random Collection Time: 05/15/23 9:06 PM Result Value Ref Range CREATININE, URINE 156.4 No Range mg/dL SARS-CoV-2 and Respiratory PCR Panel Collection Time: 05/15/23 9:08 PM Specimen: Nasopharynx; Swab Result Value Ref Range SARS-CoV-2 Not Detected Not Detected Adenovirus Not Detected Not Detected Coronavirus HKU1 Not Detected Not Detected Coronavirus NL63 Not Detected Not Detected Coronavirus 229E Not Detected Not Detected Coronavirus OC43 Not Detected Not Detected Human Metapneumovirus Not Detected Not Detected Human Rhinovirus/Enterovirus Not Detected Not Detected Influenza A Not Detected Not Detected Influenza B Not Detected Not Detected Parainfluenza 1 Not Detected Not Detected Parainfluenza 2 Not Detected Not Detected Parainfluenza 3 Not Detected Not Detected Parainfluenza 4 Not Detected Not Detected Respiratory Syncytial Virus Not Detected Not Detected Bordetella pertussis Not Detected Not Detected Bordetella parapertussis Not Detected Not Detected Chlamydia pneumoniae Not Detected Not Detected Mycoplasma pneumoniae Not Detected Not Detected MRSA by PCR Collection Time: 05/15/23 9:09 PM Specimen: Nasal; ESwab Result Value Ref Range Staphylococcus aureus Not Detected Not Detected mecA gene Not Detected Not Detected Blood Gas, Arterial Collection Time: 05/15/23 9:12 PM Result Value Ref Range pH, Arterial 7.379 7.350 - 7.450 pCO2, Arterial 34.3 (L) >35.0 - <45.0 mm Hg pO2, Arterial 286.7 (H) 80.0 - 100.0 mm Hg HCO3, Arterial 19.8 (L) 21.0 - 25.0 mmol/L O2 Sat, Arterial 99.3 95.0 - 100.0 % Base Excess, Arterial -4.5 (L) -3.0 - 3.0 mmol/L CO2 Total 20.8 (L) 23.0 - 27.0 mmol/L Hgb, blood gas 13.3 Screen Only g/dl Source Of Oxygen 70% Oxygen PROTIME/INR & PTT Collection Time: 05/15/23 11:01 PM Result Value Ref Range PROTHROMBIN TIME 11.6 9.0 - 12.0 s INR 1.1 0.9 - 1.1 APTT 22.9 20.0 - 30.5 s Fungal culture, blood Collection Time: 05/15/23 11:01 PM Specimen: Blood, Venous Result Value Ref Range Fungal Blood Culture No fungus isolated to date. Culture will be held for 21 days. Calcium, ionized Collection Time: 05/15/23 11:01 PM Result Value Ref Range Calcium, Ion 4.30 4.30 - 5.20 mg/dL PH, IONIZED CALCIUM 7.41 7.31 - 7.46 Respiratory culture Collection Time: 05/16/23 12:26 AM Specimen: Sputum Result Value Ref Range Respiratory culture Culture in progress Gram Stain Result Rare Polymorphonuclear leukocytes per low power field Gram Stain Result No epithelial cells seen Gram Stain Result No organisms seen Pneumonia PCR Panel Collection Time: 05/16/23 12:28 AM Specimen: Trachea; Aspirate Result Value Ref Range Staphylococcus aureus Not Detected Not Detected Streptococcus agalactiae Not Detected Not Detected Streptococcus pneumoniae Not Detected Not Detected Streptococcus pyogenes Not Detected Not Detected Haemophilus influenzae Not Detected Not Detected Moraxella catarrhalis Not Detected Not Detected Acinetobacter baumannii complex Not Detected Not Detected Enterobacter cloacae complex Not Detected Not Detected Escherichia coli Not Detected Not Detected Klebsiella (Enterobacter) aerogenes Not Detected Not Detected Klebsiella oxytoca Not Detected Not Detected Klebsiella pneumoniae Not Detected Not Detected Proteus spp Not Detected Not Detected Pseudomonas aeruginosa Not Detected Not Detected Serratia marcescens Not Detected Not Detected Chlamydia pneumoniae Not Detected Not Detected Legionella pneumophila Not Detected Not Detected Mycoplasma pneumoniae Not Detected Not Detected Adenovirus Not Detected Not Detected Coronavirus Not Detected Not Detected Human Metapneumovirus Not Detected Not Detected Human Rhinovirus/Enterovirus Not Detected Not Detected Influenza A Not Detected Not Detected Influenza B Not Detected Not Detected Parainfluenza virus Not Detected Not Detected Respiratory Syncytial Virus Not Detected Not Detected Comprehensive metabolic panel Collection Time: 05/16/23 3:18 AM Result Value Ref Range SODIUM 137 135 - 145 mmol/L POTASSIUM 3.5 3.5 - 5.1 mmol/L CHLORIDE 111 (H) 98 - 107 mmol/L CARBON DIOXIDE 21 (L) 22 - 30 mmol/L ANION GAP 5 3 - 13 mmol/L UREA NITROGEN 16 9 - 20 mg/dL CREATININE 0.99 0.66 - 1.25 mg/dL GLUCOSE 98 70 - 100 mg/dL CALCIUM 8.3 (L) 8.4 - 10.4 mg/dL AST (SGOT) 30 15 - 46 U/L ALT 27 0 - 49 U/L ALKALINE PHOSPHATASE 56 38 - 126 U/L ALBUMIN 3.6 3.5 - 5.0 g/dL BILIRUBIN, TOTAL 0.4 0.2 - 1.3 mg/dL TOTAL PROTEIN 5.9 (L) 6.3 - 8.2 g/dL eGFR 86.7 >60.0 mL/min/1.73m*2 Magnesium Collection Time: 05/16/23 3:18 AM Result Value Ref Range MAGNESIUM 1.9 1.6 - 2.3 mg/dL Phosphorus Collection Time: 05/16/23 3:18 AM Result Value Ref Range PHOSPHORUS 3.1 2.5 - 4.5 mg/dL CBC auto differential Collection Time: 05/16/23 3:18 AM Result Value Ref Range Auto WBC 7.4 3.6 - 10.7 10*3/uL RBC 4.18 (L) 4.40 - 5.90 10*6/uL Hemoglobin 12.1 (L) 13.0 - 18.0 g/dL Hematocrit 38.2 (L) 40.0 - 52.0 % MCV 91.4 80.0 - 98.0 fL MCH 29.0 26.0 - 34.0 pg MCHC 31.7 (L) 32.0 - 36.0 % RDW 15.5 (H) 11.5 - 14.5 % Platelets 158 140 - 440 10*3/uL MPV 8.1 7.4 - 12.4 fL nRBC 0.0 0.0 - 2.0 /100 WBCs Neutrophils Relative 70.7 40.0 - 80.0 % Lymphocytes Relative 19.9 (L) 20.0 - 40.0 % Monocytes Relative 8.8 2.0 - 10.0 % Eosinophils Relative 0.3 (L) 1.0 - 6.0 % Basophils Relative 0.3 0.0 - 2.0 % Neutrophils Absolute 5.2 1.8 - 7.0 10*3/uL Lymphocytes Absolute 1.5 1.0 - 4.3 10*3/uL Monocytes Absolute 0.7 0.0 - 0.8 10*3/uL Eosinophils Absolute 0.0 0.0 - 0.5 10*3/uL Basophils Absolute 0.0 0.0 - 0.2 10*3/uL Since admission: Recent Labs 05/15/231907 TROPONINI <0.012 Recent Labs 05/15/238 05/16/23 0318 ALKPHOS 75 56 ALT 34 27 AST 39 30 BILITOT 1.0 0.4 BILIDIR 0.0 -- Coagulation: Recent Labs 05/15/23 2301 INR 1.1 Radiology Personal review: CT Head 7/30/23 Impression: 1. No acute intracranial findings. 2. Chronic ischemic changes suspected. ASSESSMENT / PLAN / SUGGESTIONS : Nick Hernández is a 63 year old male with PMH of b/l lung transplant on immunosuppressants, CAD, HTN who we are consulted for seizure-like activity, AMS. #Seizure-like activity, unclear origin - possible [employer] infection due to immunosuppression #S/p bilateral lung transplant on chronic immunosuppression - holding home tacrolimus and mycophenolate #HTN - controlled Plan #MRI Brain pending #cEEG to monitor for further seizure-like activity #IR LP ordered and pending #Continue broad spectrum abx #Consider adding rocephin, defer to ID #Consult Infectious Disease #Keppra 1000mg BID #Consider backing off on Keppra after LP results #Per ICU note patient being transferred to [facility]; will complete LP and MRI here at [facility] Patient seen and discussed with Dr. June Associated attestation - Elyssa June MD - 05/16/2023 6:18 PM EDT Neuro Critical Care / stroke Attending Case was discussed with ED last evening Status epilepticus documented in ED Treated with keppra and VPA and then started on propofol EEG started last evening , significant generalized bursts noted but no clear seizures Today's exam patient very suppressed with increased tone in hands and LE , bilateral hofmans and babinski's , pupils still reactive, no fix or follow weak dolls, no blink to threat, patient in coma ( but sedated ) ON Keppra 1000 BID ( after 4.5 load ) Neurontin 200 q day ( home dose ) And propofol , does not seems that VPA was used Plan to continue monitoring , increase sedation if needed to obtain more suppression if it is felt to be seizing which is not the case right now Future repeated imaging 3 days Optimize oxigenation , patient having problems ( question if he is rejecting lungs ) In regards to the cause of the seizures, its unclear , he is immunosuppressed, Requested broad spectrum antimicrobials and ID involvement WBC was not elevated Glucose was high ( could this have been the cause ? ) CSF lumbar puncture, clear CSF CSF Glucose 62/ Protein 83 Cell count, ME profile , crypto antige, anerobic cultures , fungal culture , Fungal stain , PND MRI was done with no contrast, did not see any structural abonormality IMPRESSION: 1. Diminished cerebral volume and evidence of chronic white matter small vessel ischemic change without acute intracranial abnormality. 2. Paranasal sinus disease. 3. Small bilateral mastoid effusions. Plan In regards to ID , continue follow CSF data , keep antimicrobials until other strickland not consider necessary Consider decrease sedation for better exam tomorrow if EEG improves I personally expend in min up to :First 75 CCT Critical care time, Total critical care time caring for this patient with life threatening, unstable organ failure (acute loss of neurological functions), including direct patient contact, management of life support systems, review of data including imaging and labs, discussions with other team members and physicians, excluding procedures. [x] Face to Face [x] In company of resident / student [x] I personally reviewing stat labs, stat imaging studies and reviewed available medical record performed a history and physical examination of the patient and discussed the urgent management, diagnostic impressions and suggested plan of care documented in this note. [x] I personally corrected the note in presence of my resident an with their approval [x] Patient remains in critical condition and requires close neuro-critical care monitoring due to risk of further neurological deterioration Personal discussion of test results and plan of care with: ., Family, Neuroradiology, Critical Care Team, . Thank you LIANA LOJA for the opportunity to be involved in this patient's care. [facility] Work Phone: 05-16-2023 Plan of care note The patient is Moderately Stable - Low risk of patient condition declining or worsening The patient's goals for the shift include GWEN the patient is intubated and sedated The clinical goals for the shift include Improved vitals and clinical status Over the shift, the patient did not make progress toward the following goals. Barriers to progression include the patient is intubated and sedated. Recommendations to address these barriers include teaching and reminding the patient of the importance of his lines and ETT and why he cannot remove them. [facility] 05-16-2023 Procedure note Associated Ord er(s): Lumbar Puncture Post-Procedure Diagnose(s): Acute respiratory failure with hypoxia and hypercapnia (CMS/HCC) (HCC) Lumbar Puncture Date/Time: 05/16/2023 2:49 AM Performed by: Derek Cordova DO Authorized by: Derek Cordova DO Consent: The indications, risks, benefits, alternatives to the procedure were explained to the patient/surrogate decision maker and their questions answered. Consent was obtained to proceed with the procedure. Timeout: Completed immediately prior to the start of the procedure which included verification of the correct patient, correct site and agreement on the procedure to be done. Indications: Procedure purpose: Diagnostic Indications: altered mental status Anesthetic: Anesthetic: Lidocaine without epinephrine Preparation: Patient was prepped and draped in usual sterile fashion Skin prepped: skin prepped with povidone-iodine Procedure details: Lumbar space: L3-L4 interspace Patient position: L lateral decubitus Number of attempts: 4 Procedure successsful: No Ultrasound guidance: no Post-procedure: Post-procedure: Dressing applied and pressure applied Estimated blood loss: < 5 mL Specify complication(s): No apparent complications Assistants & Supervision: I personally performed the procedure documented as signed by this procedure note Therapeutic Recreation Assistant: Dr. Rodas The attending physician was physically present while the proceduralist performed zuniga/critical components of the procedure. Attending: Dr. Rodas Associated attestation - Kahtleen Rodas DO - 05/16/2023 3:49 AM EDT I was physically present and supervised the entire procedure. Multiple attempts by both resident and attending, unsuccessful LP [facility] 05-16-2023 Procedure note Associated Ord er(s): Lumbar Puncture Post-Procedure Diagnose(s): Acute respiratory failure with hypoxia and hypercapnia (CMS/HCC) (HCC) Lumbar Puncture Date/Time: 05/16/2023 2:49 AM Performed by: Derek Cordova DO Authorized by: Derek Cordova DO Consent: The indications, risks, benefits, alternatives to the procedure were explained to the patient/surrogate decision maker and their questions answered. Consent was obtained to proceed with the procedure. Timeout: Completed immediately prior to the start of the procedure which included verification of the correct patient, correct site and agreement on the procedure to be done. Indications: Procedure purpose: Diagnostic Indications: altered mental status Anesthetic: Anesthetic: Lidocaine without epinephrine Preparation: Patient was prepped and draped in usual sterile fashion Skin prepped: skin prepped with povidone-iodine Procedure details: Lumbar space: L3-L4 interspace Patient position: L lateral decubitus Number of attempts: 4 Procedure successsful: No Ultrasound guidance: no Post-procedure: Post-procedure: Dressing applied and pressure applied Estimated blood loss: < 5 mL Specify complication(s): No apparent complications Assistants & Supervision: I personally performed the procedure documented as signed by this procedure note Therapeutic Recreation Assistant: Dr. Rodas The attending physician was physically present while the proceduralist performed zuniga/critical components of the procedure. Attending: Dr. Rodas Associated attestation - Kathleen Rodas DO - 05/16/2023 3:49 AM EDT I was physically present and supervised the entire procedure. Multiple attempts by both resident and attending, unsuccessful LP Associated Order(s): Bronchoscopy Bedside Disposable Post-Procedure Diagnose(s): Acute respiratory failure with hypoxia and hypercapnia (CMS/HCC) (HCC); Lung transplant recipient (HCC) Images from the original note were not included. Bronchoscopy Bedside Disposable Date/Time: 05/16/2023 1:57 AM Performed by: Thelma Arriola DO Authorized by: Thelma Arriola DO Consent: The indications, risks, benefits, alternatives to the procedure were explained to the patient/surrogate decision maker and their questions answered. Consent was obtained to proceed with the procedure. Timeout: Completed immediately prior to the start of the procedure which included verification of the correct patient, correct site and agreement on the procedure to be done. Anesthetic: Local anesthetic used: not applicable Sedation: Sedation: no additional sedation needed (sedation for mechanical ventilation) Indications: Indication: pneumonia Procedure Details: Type: diagnostic Completed via: ETT Lung examined: Right Abnormalities: other (see comments) Abnormalities comments: BI with mild narrowing. no purulence noted . anastamosis bilat stable, BAL of RLL Post-procedure: Specimen sent to lab: yes Specimen source: right lower lobe Secretion description: clear Estimated blood loss: none Specify Complication(s): no apparent complications Bronchus intermedius , mild narrowing exacerbated with cough and dynamic airway collapse. Passed with increased sedation without difficulty, RML and RLL clear. BAL of RLL Left main Main flavia Associated Order(s): EEG CONTINUOUS MONITORING Images from the original note were not included. [facility] [address] [place] [address] [phone] CONTINUOUS LONG-TERM VIDEO EEG MONITORING REPORT Patient Name: Nick Hernández : 1960 Date of Study: 05/16/2023 Duration Recorded: 13:41:15 EEG#: [id number] CHEESEMAKER: Lydia Issa PROVIDER REQUESTING STUDY: Derek Cordova DO REASON FOR EXAM: Evaluate for seizures DIAGNOSIS TAG: Encephalopathy NOS (ENC-NOS) HISTORY: Nick Hernández is a 63 y.o. male who presents to the emergency department with unresponsiveness. Patient's states he has been not acting his normal self and been more confused past couple days being more angry than he normally is. He has a complicated medical history including bilateral lung transplant at [facility] 4 years ago on chronic immunosuppression and antibiotic therapy, family member/ unsure of the exact medications. He had been unresponsive with snoring respirations in triage response team was called and patient was immediately taken back to resuscitation bay. Patient was being bagged by mask valve ventilated and did become somewhat responsive stating my back hurts between my shoulder blades and I cannot feel my legs. Patient then had seizure activity and unable to gather further history from patient. MEDICATIONS: Current Facility-Administered Medications Medication Dose Route Frequency Provider Last Rate Last Admin acetaminophen (Tylenol) tablet 1,000 mg 1,000 mg Oral q8h Derek Cordova DO Or Acetaminophen (Tylenol) 650 MG/20.3ML solution 1,000 mg 1,000 mg Per G Tube q8h Derek Cordova, DO acyclovir (Zovirax) 950 mg in sodium chloride 0.9 % 150 mL IVPB 10 mg/kg IntraVENous q8h Oscar Chan MD Stopped at 05/16/23 0545 azithromycin (Zithromax) tablet 250 mg 250 mg Oral Once per day on Tue Derek Cordova DO chlorhexidine (Peridex) 0.12 % solution 15 mL 15 mL Mouth/Throat BID Oscar Chan MD 15 mL at 05/15/23 2105 enoxaparin (Lovenox) syringe 40 mg 40 mg SubCUTAneous Daily Derek Cordova DO fentaNYL (Sublimaze) 1000 mcg in sodium chloride 0.9 % 100 mL 10 mcg/mL infusion 25-200 mcg/hr IntraVENous Continuous Oscar Chan MD Stopped at 05/16/23 0549 gabapentin (Neurontin) capsule 200 mg 200 mg Oral Daily Derek Cordova DO levETIRAcetam (Keppra) 1,000 mg in sodium chloride 0.9 % 100 mL IVPB 1,000 mg IntraVENous BID Kathleen Rodas DO meropenem (Merrem) 2,000 mg in sodium chloride 0.9 % 100 mL IVPB 2,000 mg IntraVENous q8h Derek Cordova DO Stopped at 05/16/23 0055 midazolam (Versed) 50 mg/50mL infusion 1-10 mg/hr IntraVENous Continuous Oscar Chan MD 10 mL/hr at 05/16/23 0525 10 mg/hr at 05/16/23 0525 [Held by provider] mycophenolate (Cellcept) capsule 1,000 mg 1,000 mg Oral BID Derek Cordova, DO ondansetron ODT (Zofran-ODT) disintegrating tablet 4 mg 4 mg Oral q8h PRN Derek Cordova, Or ondansetron (Zofran) injection 4 mg 4 mg IntraVENous q6h PRN Derek Cordova, DO pantoprazole (ProtoNix) injection 40 mg 40 mg IntraVENous q AM Derek Cordova, DO polyethylene glycol (PEG) 3350 (Miralax) packet 17 g 17 g Oral Daily PRN Derek Kepko, DO predniSONE (Deltasone) tablet 5 mg 5 mg Oral Daily Derek Kepko, DO propofol (Diprivan) infusion 5-50 mcg/kg/min IntraVENous Continuous Derek Kepko, DO 22.8 mL/hr at 05/16/23 0729 40 mcg/kg/min at 05/16/23 0729 sodium chloride 0.9% (NS) flush 5-40 mL 5-40 mL IntraCATHeter q8h Derek Kepko, DO 10 mL at 05/16/23 0145 sodium chloride 0.9% (NS) flush 5-40 mL 5-40 mL IntraVENous PRN Derek Kepko, DO sulfamethoxazole-trimethoprim (Bactrim DS) 800-160 MG per tablet 1 tablet 1 tablet Oral BID Derek Kepko, DO [Held by provider] tacrolimus (Prograf) capsule 0.5 mg 0.5 mg Oral BID Derek Kepko, DO TECHNICAL ASPECTS: This continuous scalp EEG study with video was carried out at [facility]. Scalp electrodes were positioned in person by an ct mri technologist, following patient education, according to the 10-20 International system of electrode placement and maintained for integrity and quality of the recording. EEG data with video was recorded continuously and digitally stored. The ct mri technologist reviewed all automated detections and manual events and prepared the data for archiving and provider review. Referential and bipolar montages were used for review. TECHNOLOGIST NOTES: No skull or scalp defects were observed. Patient intubated and sedated. This video-EEG monitoring was continuously monitored, 4 patients per technologist. BACKGROUND ACTIVITY: Posterior background activity: No observable posterior dominant rhythm was seen. Beta range: Abundant diffuse waxing and waning beta range activity (15-25 Hz, 10-20 uV) was seen. Sleep: No sleep architecture was observed. Normal Variants: No normal variants were identified. SLOWING: A persistent generalized burst-attenuation pattern was seen as evidenced by 2-5-second generalized bursts of theta-alpha range (4.5-12.5 Hz, 10-50 uV) activity with intermixed 3-8 second intervals of attenuated alpha-beta range (12.5-14.5 Hz, 10 uV) activity. 03:57:12 LFF 1Hz HFF 70Hz Sens 5 uV/mm 03:58:10 LFF 1Hz HFF 70Hz Sens 5 uV/mm INTERICTAL EPILEPTIFORM ACTIVITY: No epileptiform activity was seen. ICTAL ACTIVITY: No ictal activity was seen. NON-EPILEPTIC EVENTS: None. ACTIVATION PROCEDURES: Photic stimulation was not performed. Hyperventilation was not performed. IMPRESSION AND ACTIONS TAKEN: This continuous EEG with video is abnormal. A persistent generalized burst-attenuation pattern is seen as evidenced by brief generalized bursts of fast activity intermixed with brief intervals of generalized attenuation. No clearcut epileptiform activity nor seizures are seen. The findings are consistent with a qiluyyua-wq-iqypfk global encephalopathy nonspecific as to etiology and confounded by sedation. Lorenzo Pompa MD, PhD Epilepsy Attending Associated Order(s): Central Line Insertion Post-Procedure Diagnose(s): Acute respiratory failure with hypoxia and hypercapnia (CMS/HCC) (HCC) Central Line Insertion Date/Time: 05/16/2023 2:03 AM Performed by: Derek Cordova DO Authorized by: Derek Cordova DO Consent: The indications, risks, benefits, alternatives to the procedure were explained to the patient/surrogate decision maker and their questions answered. Consent was obtained to proceed with the procedure. Timeout: Completed immediately prior to the start of the procedure which included verification of the correct patient, correct site and agreement on the procedure to be done. Indication: Lack of adequate PIV access Anesthetic: Local anesthetic used: lidocaine without epinephrine Procedure Details: Preparation: skin prepped with chlorhexidine Skin prep agent dried: skin prep agent completely dried prior to procedure Sterile barriers: all five maximum sterile barriers used - cap, mask, sterile gown, sterile gloves, and large sterile sheet Hand hygiene: hand hygiene performed prior to central venous catheter insertion Sterile technique: Sterile technique maintained throughout procedure. Central Line Type: central venous catheter Location details: right internal jugular Patient position: Trendelenburg Catheter type: triple lumen Catheter size: 7 Fr Number of attempts: 1 Ultrasound guidance: yes Post-Procedure: Post-procedure: line sutured and antimicrobial dressing applied Description/Findings: dark, non-pulsatile blood return obtained from all lumens Estimated blood loss: < 5 mL Complications: No apparent complications Follow-up chest x-ray: completed, line in appropriate position Assistants & Supervision: I personally performed the procedure documented as signed by this procedure note Railroad Brakeman(s): N/A Therapeutic Recreation Assistant: Dr. Rodas The attending physician was physically present while the proceduralist performed zuniga/critical components of the procedure. Attending: Dr. Rodas Associated attestation - Kathleen Rodas DO - 05/16/2023 3:49 AM EDT I was physically present and supervised the entire procedure documented in this encounter [facility] 05-16-2023 Procedure note Associated Ord er(s): Bronchoscopy Bedside Disposable Post-Procedure Diagnose(s): Acute respiratory failure with hypoxia and hypercapnia (CMS/HCC) (HCC); Lung transplant recipient (HCC) Images from the original note were not included. Bronchoscopy Bedside Disposable Date/Time: 05/16/2023 1:57 AM Performed by: Thelma Arriola DO Authorized by: Thelma Arriola DO Consent: The indications, risks, benefits, alternatives to the procedure were explained to the patient/surrogate decision maker and their questions answered. Consent was obtained to proceed with the procedure. Timeout: Completed immediately prior to the start of the procedure which included verification of the correct patient, correct site and agreement on the procedure to be done. Anesthetic: Local anesthetic used: not applicable Sedation: Sedation: no additional sedation needed (sedation for mechanical ventilation) Indications: Indication: pneumonia Procedure Details: Type: diagnostic Completed via: ETT Lung examined: Right Abnormalities: other (see comments) Abnormalities comments: BI with mild narrowing. no purulence noted . anastamosis bilat stable, BAL of RLL Post-procedure: Specimen sent to lab: yes Specimen source: right lower lobe Secretion description: clear Estimated blood loss: none Specify Complication(s): no apparent complications Bronchus intermedius , mild narrowing exacerbated with cough and dynamic airway collapse. Passed with increased sedation without difficulty, RML and RLL clear. BAL of RLL Left main Main flavia [facility] 05-16-2023 Procedure note Associated Ord er(s): EEG CONTINUOUS MONITORING Images from the original note were not included. [facility] [address] [place] [id number] CONTINUOUS LONG-TERM VIDEO EEG MONITORING REPORT Patient Name: Nick Hernández : 1960 Date of Study: 05/16/2023 Duration Recorded: 13:41:15 EEG#: [id number] CHEESEMAKER: Lydia Issa PROVIDER REQUESTING STUDY: Derek Cordova DO REASON FOR EXAM: Evaluate for seizures DIAGNOSIS TAG: Encephalopathy NOS (ENC-NOS) HISTORY: Nick Hernández is a 63 y.o. male who presents to the emergency department with unresponsiveness. Patient's states he has been not acting his normal self and been more confused past couple days being more angry than he normally is. He has a complicated medical history including bilateral lung transplant at [facility] 4 years ago on chronic immunosuppression and antibiotic therapy, family member/ unsure of the exact medications. He had been unresponsive with snoring respirations in triage response team was called and patient was immediately taken back to resuscitation bay. Patient was being bagged by mask valve ventilated and did become somewhat responsive stating my back hurts between my shoulder blades and I cannot feel my legs. Patient then had seizure activity and unable to gather further history from patient. MEDICATIONS: Current Facility-Administered Medications Medication Dose Route Frequency Provider Last Rate Last Admin acetaminophen (Tylenol) tablet 1,000 mg 1,000 mg Oral q8h Derek Cordova DO Or Acetaminophen (Tylenol) 650 MG/20.3ML solution 1,000 mg 1,000 mg Per G Tube q8h Derek Cordova DO acyclovir (Zovirax) 950 mg in sodium chloride 0.9 % 150 mL IVPB 10 mg/kg IntraVENous q8h Oscar Chan MD Stopped at 05/16/23 0510 azithromycin (Zithromax) tablet 250 mg 250 mg Oral Once per day on Tue Derek Cordova DO chlorhexidine (Peridex) 0.12 % solution 15 mL 15 mL Mouth/Throat BID Oscar Chan MD 15 mL at 05/15/23 4844 enoxaparin (Lovenox) syringe 40 mg 40 mg SubCUTAneous Daily Derek Kepko, DO fentaNYL (Sublimaze) 1000 mcg in sodium chloride 0.9 % 100 mL 10 mcg/mL infusion 25-200 mcg/hr IntraVENous Continuous Oscar Chan MD Stopped at 05/16/23 0549 gabapentin (Neurontin) capsule 200 mg 200 mg Oral Daily Derek Kecarmeloko, DO levETIRAcetam (Keppra) 1,000 mg in sodium chloride 0.9 % 100 mL IVPB 1,000 mg IntraVENous BID Kathleen Rodas, meropenem (Merrem) 2,000 mg in sodium chloride 0.9 % 100 mL IVPB 2,000 mg IntraVENous q8h Derek Kecarmeloko, DO Stopped at 05/16/23 0055 midazolam (Versed) 50 mg/50mL infusion 1-10 mg/hr IntraVENous Continuous Oscar Chan MD 10 mL/hr at 05/16/23 0525 10 mg/hr at 05/16/23 0525 [Held by provider] mycophenolate (Cellcept) capsule 1,000 mg 1,000 mg Oral BID Derek Kepko, DO ondansetron ODT (Zofran-ODT) disintegrating tablet 4 mg 4 mg Oral q8h PRN Derek Kepko, DO Or ondansetron (Zofran) injection 4 mg 4 mg IntraVENous q6h PRN Derek Kepko, DO pantoprazole (ProtoNix) injection 40 mg 40 mg IntraVENous q AM Derek Kepko, DO polyethylene glycol (PEG) 3350 (Miralax) packet 17 g 17 g Oral Daily PRN Derek Kepko, DO predniSONE (Deltasone) tablet 5 mg 5 mg Oral Daily Derek Kepko, DO propofol (Diprivan) infusion 5-50 mcg/kg/min IntraVENous Continuous Derek Kepko, DO 22.8 mL/hr at 05/16/23 0729 40 mcg/kg/min at 05/16/23 0729 sodium chloride 0.9% (NS) flush 5-40 mL 5-40 mL IntraCATHeter q8h Derek Kepko, DO 10 mL at 05/16/23 0145 sodium chloride 0.9% (NS) flush 5-40 mL 5-40 mL IntraVENous PRN Derek Kepko, DO sulfamethoxazole-trimethoprim (Bactrim DS) 800-160 MG per tablet 1 tablet 1 tablet Oral BID Derek Cordova, DO [Held by provider] tacrolimus (Prograf) capsule 0.5 mg 0.5 mg Oral BID Derek Cordova, DO TECHNICAL ASPECTS: This continuous scalp EEG study with video was carried out at [facility]. Scalp electrodes were positioned in person by an ct mri technologist, following patient education, according to the 10-20 International system of electrode placement and maintained for integrity and quality of the recording. EEG data with video was recorded continuously and digitally stored. The ct mri technologist reviewed all automated detections and manual events and prepared the data for archiving and provider review. Referential and bipolar montages were used for review. TECHNOLOGIST NOTES: No skull or scalp defects were observed. Patient intubated and sedated. This video-EEG monitoring was continuously monitored, 4 patients per technologist. BACKGROUND ACTIVITY: Posterior background activity: No observable posterior dominant rhythm was seen. Beta range: Abundant diffuse waxing and waning beta range activity (15-25 Hz, 10-20 uV) was seen. Sleep: No sleep architecture was observed. Normal Variants: No normal variants were identified. SLOWING: A persistent generalized burst-attenuation pattern was seen as evidenced by 2-5-second generalized bursts of theta-alpha range (4.5-12.5 Hz, 10-50 uV) activity with intermixed 3-8 second intervals of attenuated alpha-beta range (12.5-14.5 Hz, 10 uV) activity. 03:57:12 LFF 1Hz HFF 70Hz Sens 5 uV/mm 03:58:10 LFF 1Hz HFF 70Hz Sens 5 uV/mm INTERICTAL EPILEPTIFORM ACTIVITY: No epileptiform activity was seen. ICTAL ACTIVITY: No ictal activity was seen. NON-EPILEPTIC EVENTS: None. ACTIVATION PROCEDURES: Photic stimulation was not performed. Hyperventilation was not performed. IMPRESSION AND ACTIONS TAKEN: This continuous EEG with video is abnormal. A persistent generalized burst-attenuation pattern is seen as evidenced by brief generalized bursts of fast activity intermixed with brief intervals of generalized attenuation. No clearcut epileptiform activity nor seizures are seen. The findings are consistent with a dncuqruu-ob-skarqi global encephalopathy nonspecific as to etiology and confounded by sedation. Lorenzo Pompa MD, PhD Epilepsy Attending [facility] Work Phone: 05-16-2023 Procedure note Associated Ord er(s): Central Line Insertion Post-Procedure Diagnose(s): Acute respiratory failure with hypoxia and hypercapnia (CMS/HCC) (HCC) Central Line Insertion Date/Time: 05/16/2023 2:03 AM Performed by: Derek Cordova DO Authorized by: Derek Cordova DO Consent: The indications, risks, benefits, alternatives to the procedure were explained to the patient/surrogate decision maker and their questions answered. Consent was obtained to proceed with the procedure. Timeout: Completed immediately prior to the start of the procedure which included verification of the correct patient, correct site and agreement on the procedure to be done. Indication: Lack of adequate PIV access Anesthetic: Local anesthetic used: lidocaine without epinephrine Procedure Details: Preparation: skin prepped with chlorhexidine Skin prep agent dried: skin prep agent completely dried prior to procedure Sterile barriers: all five maximum sterile barriers used - cap, mask, sterile gown, sterile gloves, and large sterile sheet Hand hygiene: hand hygiene performed prior to central venous catheter insertion Sterile technique: Sterile technique maintained throughout procedure. Central Line Type: central venous catheter Location details: right internal jugular Patient position: Trendelenburg Catheter type: triple lumen Catheter size: 7 Fr Number of attempts: 1 Ultrasound guidance: yes Post-Procedure: Post-procedure: line sutured and antimicrobial dressing applied Description/Findings: dark, non-pulsatile blood return obtained from all lumens Estimated blood loss: < 5 mL Complications: No apparent complications Follow-up chest x-ray: completed, line in appropriate position Assistants & Supervision: I personally performed the procedure documented as signed by this procedure note Railroad Brakeman(s): N/A Therapeutic Recreation Assistant: Dr. Rodas The attending physician was physically present while the proceduralist performed zuniga/critical components of the procedure. Attending: Dr. Rodas Associated attestation - Kathleen Rodas DO - 05/16/2023 3:49 AM EDT I was physically present and supervised the entire procedure [facility] 05-15-2023 Emergency department Note Patient en route to assigned inpatient room with one RN, multiple BOOT REPAIRER's, and multiple respiratory therapists, on telemetry monitoring, dressed in a hospital gown, with adequate sedation in place. Avila Conn RN 05/15/232153 [facility] 05-15-2023 Emergency department Note Patient en route to assigned inpatient room with one RN, multiple BOOT REPAIRER's, and multiple respiratory therapists, on telemetry monitoring, dressed in a hospital gown, with adequate sedation in place. Avila Conn RN 05/15/232153 OG tube placed per policy. Patient tolerated procedure fairly well, with OG measuring appropriate distance. Placement confirmed with auscultation over the epigastrium, with very quiet sound of turbulent air heard. Avila Conn RN 05/15/232126 Patient moved to room 21. Report given to SHERRY Gramajo. Eileen Bustamante RN 05/15/231946 Patient to CT Eileen Bustamante RN 05/15/231922 X-Ray at bedside. Eileen Bustamante RN 05/15/231917 7.5 ET tube; 25 at the teeth; positive color change; bilateral breath sounds. Eileen Bustamante RN 05/15/231912 Eileen Bustamante RN 05/15/231913 100mg Barron given. Patient posturing. Believed to be seizing. Verbal order for 4mg Versed. Eileen Bustamante RN 05/15/231911 Preparing to intubate. 20mg Etomidate in at this time. Eileen Bustamante RN 05/15/231910 Patient responding to voice, stating that he can't see. Eileen Bustamante RN 05/15/231909 Patient began dozing off with snoring respirations. Eileen Bustamante RN 05/15/231908 Cardiac US at this time by Dr. Taylor Bustamante RN 05/15/231904 NS started via pressure bag to the right FA. Eileen Bustamante RN 05/15/231903 Patient brought into the ED by his . Patient had a pulse but was unresponsive with snoring respirations in the vehicle, triage response team called. ED staff to vehicle. Patient pulled out of vehicle and placed flat on the ground. Patient lifted and placed on the stretcher. Ventilations started with BVM, connected to 15lpm O2. Patient taken back to room 75. Patient placed on the crash cart pads and on room monitor. IV access established, labs sent. 1L NS pressure bagged in. Patient regained consciousness and was unaware of the events that had just occurred. Per , patient had been diaphoretic and having chest/ back pain today. Patient has a history of a double lung transplant 4 years ago at [facility]. Patient given 50mcg Fentanyl for pain. EKG performed. Patients eyes began to gaze and patient appeared to be posturing. Decision to intubate was made, 4mg Versed administered for seizure like activity. 20mg Etomidate and 100mg Rocuronium administered for RSI. Patient intubated with a 7.5 ETT, 24 at the teeth, positive color change, bilateral breath sounds present. Temp sensing pretty and OG placed (recheck XR to use OG). Patient taken to CT and then to room 21. Bed: 21 Expected date: 05/15/23 Expected time: Means of arrival: Comments: 75 Travis Carlson RN 05/15/231943 documented in this encounter [facility] 05-15-2023 Emergency department Note OG tube placed per policy. Patient tolerated procedure fairly well, with OG measuring appropriate distance. Placement confirmed with auscultation over the epigastrium, with very quiet sound of turbulent air heard. Avila Conn RN 05/15/232126 [facility] 05-15-2023 History and physical note Images from the original note were not included. Internal Medicine: MICU Initial History and Physical Name: Nick Hernández : 1960(63 y.o.) Date: 05/15/23 Attending: Dr. Rodas Subjective: Chief Complaint: Seizure HPI: Nick Hernández is a 63 yo male with PMHx B/L Lung Transplant (2019, immunosuppressed with Tacrolimus, Mycophenolate, Prednisone) CAD, HTN, Chronic Back pain that presented from home due to AMS and SOB. Per the over the past 3 months the pt has lost about 25 lbs and then over the past month his personality has slowly changed. The describes his changes as him getting more angry and forgetful. 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 Today per the he was acting himself, but after climbing out of the well and started having SOB and became agitated and altered. The called the transplant team at [facility] who recommended they go to the ED for evaluation. While they were driving to the hospital the said that he was yelling at her. When they arrived at [facility] ED he became unresponsive in the car with agonal breathing. The ED team was able to take the pt out of the car and place him on the sidewalk. They started ventilating with BVM and was able to transport him into the ED. He did become more responsive, but started having seizure like activity. The ED intubated him at that time and treated the seizure with Versed 4 mg IV. They then got a CT head and CTA C/A/P which showed some atelectasis vs infiltrate in the RLL and no other acute changes. He was then transported to an ED room where he started having more seizure activity. The ED did contact neurology who recommended Keppra load and starting Propofol and Versed gtt along with the Fentanyl gtt. Before the propofol and versed gtt were started he was given another 6 mg of Versed for his seizure activity. He was admitted to the ICU for further management. He continues to follow with [facility] with the transplant team, he had bilateral lung transplants on 12/11/2018, EBV was donor and recipient positive, CMV donor and recipient negative. . He most recently saw them on 05/09. He is on Tacrolimus 0.5 mg bid (Goal Tacrolimus level 4-6), his most recent level on 03/22/23 was 5.4, Mycophenolate 1000 mg BID, Prednisone 5 mg daily. They have been monitoring his PFTs monthly, most recently on 03/28/23 (Report is in media tab). Past Medical History: Diagnosis Date Diabetes mellitus (HCC) Past Surgical History: Procedure Laterality Date JOINT REPLACEMENT LUNG TRANSPLANT, DOUBLE Bilateral WRIST SURGERY No family history on file. Social History Socioeconomic History Marital status: Spouse name: Not on file Number of children: Not on file Years of education: Not on file Highest education level: Not on file Occupational History Not on file Tobacco Use Smoking status: Never Smokeless tobacco: Never Vaping Use Vaping Use: Never used Substance and Sexual Activity Alcohol use: Not on file Drug use: Not on file Sexual activity: Not on file Other Topics Concern Not on file Social History Narrative Not on file Social Determinants of Health Financial Resource Strain: Not on file Food Insecurity: Not on file Transportation Needs: Not on file Physical Activity: Not on file Stress: Not on file Social Connections: Not on file Intimate Partner Violence: Not on file Housing Stability: Not on file Allergies Allergen Reactions Codeine Hives Fluticasone Other Fluticasone Furoate-Vilanterol Other and Shortness of breath Nsaids Other Due to lung transplant Vilanterol Unknown Wound Dressing Adhesive Hives Prior to Admission medications Medication Sig Start Date End Date Taking? Authorizing Provider acetaminophen (Tylenol) 325 MG tablet Take 650 mg by mouth every 6 hours as needed. 05/03/22 Historical Provider, alendronate (Fosamax) 70 MG tablet Take 70 mg by mouth. 04/09/19 Historical Provider, amLODIPine (Norvasc) 5 MG tablet Take 5 mg by mouth in the morning. 07/30/22 Historical Provider, aspirin 81 MG chewable tablet Chew 81 mg. 04/09/19 Historical Provider, azithromycin (Zithromax) 250 MG tablet Take 250 mg by mouth. 06/09/22 Historical Provider, azithromycin (Zithromax) 500 MG tablet Take 500 mg by mouth. Historical Provider, calcium citrate-vitamin D2 (Citracal+D) 315-200 MG-UNIT tablet Take 1 tablet by mouth in the morning and 1 tablet in the evening. 07/01/22 Historical Provider, calcium citrate-vitamin D2 315-250 MG-UNIT tablet Take 1 tablet by mouth. 04/09/19 Historical Provider, carvedilol (Coreg) 25 MG tablet Take 25 mg by mouth in the morning and 25 mg in the evening. 07/07/22 Historical Provider, ergocalciferol (Vitamin D-2) 1.25 MG (18661 UT) capsule Take 50,000 Units by mouth. 04/05/19 Historical Provider, gabapentin (Neurontin) 400 MG capsule Take 400 mg by mouth. 04/29/22 Historical Provider, gabapentin (Neurontin) 800 MG tablet Take 800 mg by mouth. Historical Provider, glucose blood (OneTouch Ultra) test strip 400 strips in the morning and 400 strips in the evening. 04/29/22 Historical Provider, HYDROcodone-acetaminophen (Voss) 10-325 MG tablet Take 1 tablet by mouth every 6 hours as needed. Historical Provider, ipratropium-albuterol (Combivent Respimat) 20-100 MCG/ACT inhaler Inhale 3 mL in the morning and 3 mL at noon and 3 mL in the evening and 3 mL before bedtime. Historical Provider, Lecithin 1200 MG capsule Take 1,200 mg by mouth in the morning. Historical Provider, magnesium oxide (Mag-Ox) 400 MG tablet Take 800 mg by mouth in the morning and 800 mg in the evening. 04/09/19 Historical Provider, Multiple Vitamins-Iron tablet Take 1 tablet by mouth. 04/09/19 Historical Provider, mycophenolate (Cellcept) 250 MG capsule Take 1,000 mg by mouth in the morning and 1,000 mg before bedtime. 04/03/19 Historical Provider, naloxone (Narcan) 4 mg/0.1 mL nasal spray Administer 1 spray into affected nostril(s). 08/14/19 Historical Provider, oxybutynin XL (Ditropan-XL) 10 MG 24 hr tablet Take 10 mg by mouth in the morning. 04/23/22 Historical Provider, pantoprazole (ProtoNix) 40 MG EC tablet Take 40 mg by mouth in the morning and 40 mg in the evening. 04/09/19 Historical Provider, predniSONE (Deltasone) 5 MG tablet Take 5 mg by mouth. 06/07/19 Historical Provider, rosuvastatin (Crestor) 10 MG tablet Take 10 mg by mouth in the morning. 04/09/19 Historical Provider, SITagliptin (Januvia) 100 MG tablet Take 100 mg by mouth. 04/09/19 Historical Provider, sulfamethoxazole-trimethoprim (Bactrim DS) 800-160 MG tablet Take 1 tablet by mouth in the morning and 1 tablet before bedtime. 08/10/21 Historical Provider, tacrolimus (Prograf) 0.5 MG capsule Take 1 mg by mouth. 08/06/19 Historical Provider, therapeutic jmfjjeymzjfn-fdyj-gbduwtoy (Theragran-M) tablet Take 1 tablet by mouth in the morning. 07/01/22 Historical Provider, Objective: Oxygen Delivery: O2 Flow Rate (L/min): 15 L/min VITALS: BP (!) 148/89 Pulse 83 Temp 36.4 C (97.5 F) (Oral) Resp 14 SpO2 100% CURRENT PULSE OXIMETRY: SpO2: 100 % Review of Systems Unable to perform ROS: Intubated Constitutional: General Appearance []WDWN []Obese []Cachectic []Thin [x]Ill Eyes: Inspection of Pupils/Irises Pupils round and react: [x]Yes []No Sclera: []Icteric []Non-Icteric Inspection of Conjunctiva/Lids Conjunctiva: []Injected []Non-Injected Lids: []Intact []Lesion Present ENT/Mouth: External Inspection of ears/nose [] Normal [] Scar/Lesion/Mass Inspection of teeth/lips/gums Dentition: [][place] Teeth []Dentures Lips/Gums: []Intact []Lesion Present Mucosa: [][place] []Moist []Dry Neck: External Appearance Overall Appearance: []Normal []Lesion/Mass/Crepitus Present Trachea midline: []Yes []No Thyroid []Normal []Enlarged []Tender []Mass []Absent Respiratory: Respiratory effort []Labored []Non-Labored [x] Mechanically-Ventilated Auscultation [x]Clear []Crackles []Wheezes [][place] Cardiovascular: Auscultation Rate: [x]Regular []Irregular []Tachycardia []Bradycardia Rhythm: [x]Regular []Irregular Murmur: []Present []Absent Extremities Peripheral Edema: []Present []Absent Varicosities: []Present []Absent Gastrointestinal: Abdomen Palpation: [x]Soft []Firm []Tender [x]Non-Tender []Distended [x]Non-distended Mass: []Present []Absent Bowel Sounds: []Present []Absent Hernia: []Present []Absent Liver/Spleen: []Hepatosplenomegaly []Organomegaly Absent Musculoskeletal: Inspection of Digits and Nails Cyanosis: []Present []Absent Clubbing: []Present []Absent Ischemia: []Present []Absent Infection: []Present []Absent Extremities SANDS Equally: Except ([]RUE []RLE []LUE []LLE) Strength/Tone: Intact and Normal ([]RUE []RLE []LUE []LLE) Skin: Inspection [x]Normal []Rash []Lesion []Ulcer Palpation [x]Warm []Cool [x]Dry []Clammy []Nodules []Induration []Skin-tightening Cap-Refill: [x] <3 sec [] >3 seconds (delayed) Neurologic: Pt sedated, unable to assess Psych: Mental Status Alert: []Yes [x] No Oriented: [x]x0 []X1 []X2 []x3 Mood/Affect []Normal []Flat []Agitated []Depressed []Anxious []Calm [x]Sedated []NAD [facility] within last 24 hours- BMP: Recent Labs 05/15/231907 NA 137 K 4.2 CL 108* CO2 16* BUN 21* CREATININE 1.60* CALCIUM 11.0* LFTs: No results for input(s): AST, ALT, PROT, ALBUMIN, BILITOT, BILIRUBINU, ALKPHOS, LIPASE in the last 72 hours. Glucose: Recent Labs 05/15/23190005/15/231907 GLUCOSE -- 111* POCGLU 294* -- Procal: No results for input(s): PROCAL in the last 72 hours. CBC: Recent Labs 05/15/231907 WBC 7.8 HGB 14.5 HCT 44.8 PLT 192 MCV 90.4 RDW 15.3* ABGs: No results for input(s): PHART, JPF4PUL, PO2ART, UBV1SIC, SO2ART, J5XOMBCO in the last 72 hours. Lactic Acid: No results for input(s): LACTATE in the last 72 hours. INR: No results for input(s): INR in the last 72 hours. Cardiac Injury Profile: Recent Labs 05/15/231907 TROPONINI <0.012 Labs in Last 3 months: Lab Results Component Value Date PSA 1.587 07/16/2020 INR 1.0 12/10/2019 Microbiology- Urine Cx: No results found for: URINECX Blood Cx: No results found for: BLOODCX Sputum Cx: No results found for: RESPCULT Gram Stain: No results found for: LABGRAM PNA PCR: No results found for: HUMANMETAPNE COVID19: No results found for: COVID19 Legionella Ag: No results found for: LEGIONELLAPN Strep Ag: No results for input(s): STREPPNEUMO in the last 72 hours. Imaging- CT Head Wo contrast (05/15/23) IMPRESSION: 1. No acute intracranial findings. 2. Chronic ischemic changes suspected. CTA Chest Abdomen Pelvis (05/15/23) IMPRESSION: 1. No acute process. No evidence of an intramural hematoma, dissection or aneurysm. 2. Patchy airspaces opacities near the lung bases, which could relate to atelectasis versus developing pneumonia in the appropriate clinical setting. 3. Small nodular density in the left hemipelvis, presumed to relate to a lymph node. Attention on follow-up studies is recommended. 4. Additional chronic findings as above, including varying degrees of vascular stenosis (severe near the left internal iliac artery origin). Assessment and Plan: Active Problems: There are no active Hospital Problems. Assessment: Status epilepticus Metabolic encephalopathy possible 2/2 WILDLIFE PHOTOGRAPHER infection Acute hypoxic hypercapnic respiratory failure HAGMA ISAIAS, pre-renal Hx Lung transplant on chronic immunosuppression HTN Chronic Back pain Plan: Admit to ICU Mechanical Vent bundle, sedated with Propofol, Versed, Fentanyl, will plan to ween off fentanyl. Monitor ABG Keppra load given in ED, Continuous EEG ordered, Consult to Neuro Critical Care Vanc/Meropenem and Acyclovir ordered for possible WILDLIFE PHOTOGRAPHER infections LP attempted bedside in ICU, unsuccessful. IR LP ordered with labs Blood and Fungal Blood cultures ordered per ID recommendations Holding home Tacrolimus and Mycophenolate due to ISAIAS and possible toxicity. Tacrolimus level ordered Holding home BP meds at this time, will reduce home Gabapentin dose due to ISAIAS and AMS GI Prophylaxis: Pantoprazole IV DVT Prophylaxis: Lovenox 40 q 24hr - creatinine clearance >30 BMI Classification: There is no height or weight on file to calculate BMI. overweight BMI 25-29.9 Disposition: Remain in ICU Status Associated attestation - Kathleen Rodas DO - 05/16/2023 5:54 AM EDT I have personally performed a [id number]-qaof diagnostic evaluation on this patient on date of service 05/15/23. History, labs, imaging studies, and electronic medical record have been reviewed by me. This note documented by the [x]equipment operator warehouse []ROSENDA reflects my history, exam, and medical decision making. I have reviewed and agree with the care plan. Changes were made in the orders as necessary. ROS documentation was reviewed and negative unless otherwise stated in HPI. 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 Daily ABG and CXR -CT head negative for acute process. Neurocc contacted given concern for seizures. LP and cEEG recommended. Loaded with Keppra and on maintenance Keppra. Also on Propofol and Versed gtts. Will attempt LP tonight. On empiric Vanc/Orly/Acyclovir in the meantime to cover for possible WILDLIFE PHOTOGRAPHER infection. -ID consult pending. Vanc/Orly/Acyclovir. Blood and fungal cultures obtained per ID recs. B-glucan pending. Bronch with BAL performed-->PNA PCR, respiratory culture pending. Strep/legionella urinary antigens pending -holding home tacrolimus and Cellcept due to ISAIAS/concern for possible toxicity. Tacrolimus level pending. Cont prednisone 5 mg/day. -cont Bactrim and Azithro prophylactic dosing for now Total critical care time for this patient with life-threatening unstable organ failure, including direct patient contact, management of life support systems, review of data including imaging and labs, and discussions with other team members and physicians at least 60 minutes so far today, excluding procedures. [facility] 05-15-2023 History and physical note Images from the original note were not included. Internal Medicine: MICU Initial History and Physical Name: Nick Hernández : 1960(63 y.o.) Date: 05/15/23 Attending: Dr. Rodas Subjective: Chief Complaint: Seizure HPI: Nick Hernández is a 63 yo male with PMHx B/L Lung Transplant (2019, immunosuppressed with Tacrolimus, Mycophenolate, Prednisone) CAD, HTN, Chronic Back pain that presented from home due to AMS and SOB. Per the over the past 3 months the pt has lost about 25 lbs and then over the past month his personality has slowly changed. The describes his changes as him getting more angry and forgetful. 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 Today per the he was acting himself, but after climbing out of the well and started having SOB and became agitated and altered. The called the transplant team at [facility] who recommended they go to the ED for evaluation. While they were driving to the hospital the said that he was yelling at her. When they arrived at [facility] ED he became unresponsive in the car with agonal breathing. The ED team was able to take the pt out of the car and place him on the sidewalk. They started ventilating with BVM and was able to transport him into the ED. He did become more responsive, but started having seizure like activity. The ED intubated him at that time and treated the seizure with Versed 4 mg IV. They then got a CT head and CTA C/A/P which showed some atelectasis vs infiltrate in the RLL and no other acute changes. He was then transported to an ED room where he started having more seizure activity. The ED did contact neurology who recommended Keppra load and starting Propofol and Versed gtt along with the Fentanyl gtt. Before the propofol and versed gtt were started he was given another 6 mg of Versed for his seizure activity. He was admitted to the ICU for further management. He continues to follow with [facility] with the transplant team, he had bilateral lung transplants on 12/11/2018, EBV was donor and recipient positive, CMV donor and recipient negative. . He most recently saw them on 05/09. He is on Tacrolimus 0.5 mg bid (Goal Tacrolimus level 4-6), his most recent level on 03/22/23 was 5.4, Mycophenolate 1000 mg BID, Prednisone 5 mg daily. They have been monitoring his PFTs monthly, most recently on 03/28/23 (Report is in media tab). Past Medical History: Diagnosis Date Diabetes mellitus (HCC) Past Surgical History: Procedure Laterality Date JOINT REPLACEMENT LUNG TRANSPLANT, DOUBLE Bilateral WRIST SURGERY No family history on file. Social History Socioeconomic History Marital status: Spouse name: Not on file Number of children: Not on file Years of education: Not on file Highest education level: Not on file Occupational History Not on file Tobacco Use Smoking status: Never Smokeless tobacco: Never Vaping Use Vaping Use: Never used Substance and Sexual Activity Alcohol use: Not on file Drug use: Not on file Sexual activity: Not on file Other Topics Concern Not on file Social History Narrative Not on file Social Determinants of Health Financial Resource Strain: Not on file Food Insecurity: Not on file Transportation Needs: Not on file Physical Activity: Not on file Stress: Not on file Social Connections: Not on file Intimate Partner Violence: Not on file Housing Stability: Not on file Allergies Allergen Reactions Codeine Hives Fluticasone Other Fluticasone Furoate-Vilanterol Other and Shortness of breath Nsaids Other Due to lung transplant Vilanterol Unknown Wound Dressing Adhesive Hives Prior to Admission medications Medication Sig Start Date End Date Taking? Authorizing Provider acetaminophen (Tylenol) 325 MG tablet Take 650 mg by mouth every 6 hours as needed. 05/03/22 Historical Provider, alendronate (Fosamax) 70 MG tablet Take 70 mg by mouth. 04/09/19 Historical Provider, amLODIPine (Norvasc) 5 MG tablet Take 5 mg by mouth in the morning. 07/30/22 Historical Provider, aspirin 81 MG chewable tablet Chew 81 mg. 04/09/19 Historical Provider, azithromycin (Zithromax) 250 MG tablet Take 250 mg by mouth. 06/09/22 Historical Provider, azithromycin (Zithromax) 500 MG tablet Take 500 mg by mouth. Historical Provider, calcium citrate-vitamin D2 (Citracal+D) 315-200 MG-UNIT tablet Take 1 tablet by mouth in the morning and 1 tablet in the evening. 07/01/22 Historical Provider, calcium citrate-vitamin D2 315-250 MG-UNIT tablet Take 1 tablet by mouth. 04/09/19 Historical Provider, carvedilol (Coreg) 25 MG tablet Take 25 mg by mouth in the morning and 25 mg in the evening. 07/07/22 Historical Provider, ergocalciferol (Vitamin D-2) 1.25 MG (60526 UT) capsule Take 50,000 Units by mouth. 04/05/19 Historical Provider, gabapentin (Neurontin) 400 MG capsule Take 400 mg by mouth. 04/29/22 Historical Provider, gabapentin (Neurontin) 800 MG tablet Take 800 mg by mouth. Historical Provider, glucose blood (OneTouch Ultra) test strip 400 strips in the morning and 400 strips in the evening. 04/29/22 Historical Provider, HYDROcodone-acetaminophen (Voss) 10-325 MG tablet Take 1 tablet by mouth every 6 hours as needed. Historical Provider, ipratropium-albuterol (Combivent Respimat) 20-100 MCG/ACT inhaler Inhale 3 mL in the morning and 3 mL at noon and 3 mL in the evening and 3 mL before bedtime. Historical Provider, Lecithin 1200 MG capsule Take 1,200 mg by mouth in the morning. Historical Provider, magnesium oxide (Mag-Ox) 400 MG tablet Take 800 mg by mouth in the morning and 800 mg in the evening. 04/09/19 Historical Provider, Multiple Vitamins-Iron tablet Take 1 tablet by mouth. 04/09/19 Historical Provider, mycophenolate (Cellcept) 250 MG capsule Take 1,000 mg by mouth in the morning and 1,000 mg before bedtime. 04/03/19 Historical Provider, naloxone (Narcan) 4 mg/0.1 mL nasal spray Administer 1 spray into affected nostril(s). 08/14/19 Historical Provider, oxybutynin XL (Ditropan-XL) 10 MG 24 hr tablet Take 10 mg by mouth in the morning. 04/23/22 Historical Provider, pantoprazole (ProtoNix) 40 MG EC tablet Take 40 mg by mouth in the morning and 40 mg in the evening. 04/09/19 Historical Provider, predniSONE (Deltasone) 5 MG tablet Take 5 mg by mouth. 06/07/19 Historical Provider, rosuvastatin (Crestor) 10 MG tablet Take 10 mg by mouth in the morning. 04/09/19 Historical Provider, SITagliptin (Januvia) 100 MG tablet Take 100 mg by mouth. 04/09/19 Historical Provider, sulfamethoxazole-trimethoprim (Bactrim DS) 800-160 MG tablet Take 1 tablet by mouth in the morning and 1 tablet before bedtime. 08/10/21 Historical Provider, tacrolimus (Prograf) 0.5 MG capsule Take 1 mg by mouth. 08/06/19 Historical Provider, therapeutic ocxynerpcvvb-xtkl-vpwjdesq (Theragran-M) tablet Take 1 tablet by mouth in the morning. 07/01/22 Historical Provider, Objective: Oxygen Delivery: O2 Flow Rate (L/min): 15 L/min VITALS: BP (!) 148/89 Pulse 83 Temp 36.4 C (97.5 F) (Oral) Resp 14 SpO2 100% CURRENT PULSE OXIMETRY: SpO2: 100 % Review of Systems Unable to perform ROS: Intubated Constitutional: General Appearance []WDWN []Obese []Cachectic []Thin [x]Ill Eyes: Inspection of Pupils/Irises Pupils round and react: [x]Yes []No Sclera: []Icteric []Non-Icteric Inspection of Conjunctiva/Lids Conjunctiva: []Injected []Non-Injected Lids: []Intact []Lesion Present ENT/Mouth: External Inspection of ears/nose [] Normal [] Scar/Lesion/Mass Inspection of teeth/lips/gums Dentition: [][place] Teeth []Dentures Lips/Gums: []Intact []Lesion Present Mucosa: [][place] []Moist []Dry Neck: External Appearance Overall Appearance: []Normal []Lesion/Mass/Crepitus Present Trachea midline: []Yes []No Thyroid []Normal []Enlarged []Tender []Mass []Absent Respiratory: Respiratory effort []Labored []Non-Labored [x] Mechanically-Ventilated Auscultation [x]Clear []Crackles []Wheezes [][place] Cardiovascular: Auscultation Rate: [x]Regular []Irregular []Tachycardia []Bradycardia Rhythm: [x]Regular []Irregular Murmur: []Present []Absent Extremities Peripheral Edema: []Present []Absent Varicosities: []Present []Absent Gastrointestinal: Abdomen Palpation: [x]Soft []Firm []Tender [x]Non-Tender []Distended [x]Non-distended Mass: []Present []Absent Bowel Sounds: []Present []Absent Hernia: []Present []Absent Liver/Spleen: []Hepatosplenomegaly []Organomegaly Absent Musculoskeletal: Inspection of Digits and Nails Cyanosis: []Present []Absent Clubbing: []Present []Absent Ischemia: []Present []Absent Infection: []Present []Absent Extremities SANDS Equally: Except ([]RUE []RLE []LUE []LLE) Strength/Tone: Intact and Normal ([]RUE []RLE []LUE []LLE) Skin: Inspection [x]Normal []Rash []Lesion []Ulcer Palpation [x]Warm []Cool [x]Dry []Clammy []Nodules []Induration []Skin-tightening Cap-Refill: [x] <3 sec [] >3 seconds (delayed) Neurologic: Pt sedated, unable to assess Psych: Mental Status Alert: []Yes [x] No Oriented: [x]x0 []X1 []X2 []x3 Mood/Affect []Normal []Flat []Agitated []Depressed []Anxious []Calm [x]Sedated []NAD [facility] within last 24 hours- BMP: Recent Labs 05/15/231907 NA 137 K 4.2 CL 108* CO2 16* BUN 21* CREATININE 1.60* CALCIUM 11.0* LFTs: No results for input(s): AST, ALT, PROT, ALBUMIN, BILITOT, BILIRUBINU, ALKPHOS, LIPASE in the last 72 hours. Glucose: Recent Labs 05/15/23190005/15/231907 GLUCOSE -- 111* POCGLU 294* -- Procal: No results for input(s): PROCAL in the last 72 hours. CBC: Recent Labs 05/15/231907 WBC 7.8 HGB 14.5 HCT 44.8 PLT 192 MCV 90.4 RDW 15.3* ABGs: No results for input(s): PHART, NQP0NZV, PO2ART, QGW9GXC, SO2ART, U7FMXIOQ in the last 72 hours. Lactic Acid: No results for input(s): LACTATE in the last 72 hours. INR: No results for input(s): INR in the last 72 hours. Cardiac Injury Profile: Recent Labs 05/15/231907 TROPONINI <0.012 Labs in Last 3 months: Lab Results Component Value Date PSA 1.587 07/16/2020 INR 1.0 12/10/2019 Microbiology- Urine Cx: No results found for: URINECX Blood Cx: No results found for: BLOODCX Sputum Cx: No results found for: RESPCULT Gram Stain: No results found for: LABGRAM PNA PCR: No results found for: HUMANMETAPNE COVID19: No results found for: COVID19 Legionella Ag: No results found for: LEGIONELLAPN Strep Ag: No results for input(s): STREPPNEUMO in the last 72 hours. Imaging- CT Head Wo contrast (05/15/23) IMPRESSION: 1. No acute intracranial findings. 2. Chronic ischemic changes suspected. CTA Chest Abdomen Pelvis (05/15/23) IMPRESSION: 1. No acute process. No evidence of an intramural hematoma, dissection or aneurysm. 2. Patchy airspaces opacities near the lung bases, which could relate to atelectasis versus developing pneumonia in the appropriate clinical setting. 3. Small nodular density in the left hemipelvis, presumed to relate to a lymph node. Attention on follow-up studies is recommended. 4. Additional chronic findings as above, including varying degrees of vascular stenosis (severe near the left internal iliac artery origin). Assessment and Plan: Active Problems: There are no active Hospital Problems. Assessment: Status epilepticus Metabolic encephalopathy possible 2/2 WILDLIFE PHOTOGRAPHER infection Acute hypoxic hypercapnic respiratory failure HAGMA ISAIAS, pre-renal Hx Lung transplant on chronic immunosuppression HTN Chronic Back pain Plan: Admit to ICU Mechanical Vent bundle, sedated with Propofol, Versed, Fentanyl, will plan to ween off fentanyl. Monitor ABG Keppra load given in ED, Continuous EEG ordered, Consult to Neuro Critical Care Vanc/Meropenem and Acyclovir ordered for possible WILDLIFE PHOTOGRAPHER infections LP attempted bedside in ICU, unsuccessful. IR LP ordered with labs Blood and Fungal Blood cultures ordered per ID recommendations Holding home Tacrolimus and Mycophenolate due to ISAIAS and possible toxicity. Tacrolimus level ordered Holding home BP meds at this time, will reduce home Gabapentin dose due to ISAIAS and AMS GI Prophylaxis: Pantoprazole IV DVT Prophylaxis: Lovenox 40 q 24hr - creatinine clearance >30 BMI Classification: There is no height or weight on file to calculate BMI. overweight BMI 25-29.9 Disposition: Remain in ICU Status Associated attestation - Kathleen Rodas DO - 05/16/2023 5:54 AM EDT I have personally performed a [id number] diagnostic evaluation on this patient on date of service 05/15/23. History, labs, imaging studies, and electronic medical record have been reviewed by me. This note documented by the [x]equipment operator warehouse []ROSENDA reflects my history, exam, and medical decision making. I have reviewed and agree with the care plan. Changes were made in the orders as necessary. ROS documentation was reviewed and negative unless otherwise stated in HPI. 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 Daily ABG and CXR -CT head negative for acute process. Neurocc contacted given concern for seizures. LP and cEEG recommended. Loaded with Keppra and on maintenance Keppra. Also on Propofol and Versed gtts. Will attempt LP tonight. On empiric Vanc/Orly/Acyclovir in the meantime to cover for possible WILDLIFE PHOTOGRAPHER infection. -ID consult pending. Vanc/Orly/Acyclovir. Blood and fungal cultures obtained per ID recs. B-glucan pending. Bronch with BAL performed-->PNA PCR, respiratory culture pending. Strep/legionella urinary antigens pending -holding home tacrolimus and Cellcept due to ISAIAS/concern for possible toxicity. Tacrolimus level pending. Cont prednisone 5 mg/day. -cont Bactrim and Azithro prophylactic dosing for now Total critical care time for this patient with life-threatening unstable organ failure, including direct patient contact, management of life support systems, review of data including imaging and labs, and discussions with other team members and physicians at least 60 minutes so far today, excluding procedures. documented in this encounter [facility] 05-15-2023 Emergency department Note Patient moved to room 21. Report given to SHERRY Gramajo. Eileen Bustamante RN 05/15/231946 [facility] 05-15-2023 Emergency department Note Patient to CT Eileen Bustamante RN 05/15/231922 [facility] 05-15-2023 Emergency department Note X-Ray at bedside. Eileen Bustamante RN 05/15/231917 [facility] 05-15-2023 Emergency department Note 7.5 ET tube; 25 at the teeth; positive color change; bilateral breath sounds. Eileen Bustamante RN 05/15/231912 Eileen Bustamante RN 05/15/231913 [facility] 05-15-2023 Emergency department Note 100mg Barron given. Patient posturing. Believed to be seizing. Verbal order for 4mg Versed. Eileen Bustamante RN 05/15/231911 [facility] 05-15-2023 Emergency department Note Preparing to intubate. 20mg Etomidate in at this time. Eileen Bustamante RN 05/15/231910 [facility] 05-15-2023 Emergency department Note Patient responding to voice, stating that he can't see. Eileen Bustamante RN 05/15/231909 [facility] 05-15-2023 Emergency department Note Patient began dozing off with snoring respirations. Eileen Bustamante RN 05/15/231908 [facility] 05-15-2023 Emergency department Note Cardiac US at this time by Dr. Taylor Bustamante RN 05/15/231904 [facility] 05-15-2023 Emergency department Note NS started via pressure bag to the right FA. Eileen Bustamante RN 05/15/231903 [facility] 05-15-2023 Note Associated Order(s): Intubation Procedure Intubation Performed by: Dionicio Stout II, MD Authorized by: Audra Chavarria DO Consent: Consent was not able to be obtained because the procedure was emergent or the patient was unable to give consent and a surrogate decision maker was not available. Timeout: Completed immediately prior to the start of the procedure which included verification of the correct patient, correct site and agreement on the procedure to be done. Anesthetic: Local anesthetic used: not applicable Indications: Indications: altered consciousness Preparation: Assessment: Unstable dentition Mallampati score: Emergent not performed Neck mobility: Normal Pharmacologic strategy: rapid sequence Induction agents: Etomidate Paralytics: Rocuronium Procedure details: Preoxygenation: Bag valve mask CPR in progress: no Total number of attempts: 1 Successful intubation details: Intubation method: Oral Intubation technique: video-assisted Laryngoscope blade: Hyperangulated Bougie used: no Cormack-Lehane view: II Tube size (mm): 7.5 Tube type: Cuffed Placement assessment: ETT at lip (cm): 25 Tube secured with: Adhesive tape Breath sounds: Equal Placement verification: CXR verification Follow-up chest x-ray: Ordered Post-procedure: Estimated Blood Loss: None Specify complication(s): No apparent complications Dionicio Stout II, MD Resident 05/15/232157 [facility] Phone: 05-15-2023 Note Associated Order(s): Intubation Procedure Intubation Performed by: Dionicio Sotut II, MD Authorized by: Audra Chavarria DO Consent: Consent was not able to be obtained because the procedure was emergent or the patient was unable to give consent and a surrogate decision maker was not available. Timeout: Completed immediately prior to the start of the procedure which included verification of the correct patient, correct site and agreement on the procedure to be done. Anesthetic: Local anesthetic used: not applicable Indications: Indications: altered consciousness Preparation: Assessment: Unstable dentition Mallampati score: Emergent not performed Neck mobility: Normal Pharmacologic strategy: rapid sequence Induction agents: Etomidate Paralytics: Rocuronium Procedure details: Preoxygenation: Bag valve mask CPR in progress: no Total number of attempts: 1 Successful intubation details: Intubation method: Oral Intubation technique: video-assisted Laryngoscope blade: Hyperangulated Bougie used: no Cormack-Lehane view: II Tube size (mm): 7.5 Tube type: Cuffed Placement assessment: ETT at lip (cm): 25 Tube secured with: Adhesive tape Breath sounds: Equal Placement verification: CXR verification Follow-up chest x-ray: Ordered Post-procedure: Estimated Blood Loss: None Specify complication(s): No apparent complications Dionicio Stout II, MD Resident 05/15/232157 [facility] Work Phone: 05-15-2023 Emergency department Note Bed: 21 Expected date: 05/15/23 Expected time: Means of arrival: Comments: 75 Travis Carlson RN 05/15/231943 T [facility] 05-15-2023 Emergency department Triage note Patient brought into the ED by his . Patient had a pulse but was unresponsive with snoring respirations in the vehicle, triage response team called. ED staff to vehicle. Patient pulled out of vehicle and placed flat on the ground. Patient lifted and placed on the stretcher. Ventilations started with BVM, connected to 15lpm O2. Patient taken back to room 75. Patient placed on the crash cart pads and on room monitor. IV access established, labs sent. 1L NS pressure bagged in. Patient regained consciousness and was unaware of the events that had just occurred. Per , patient had been diaphoretic and having chest/ back pain today. Patient has a history of a double lung transplant 4 years ago at [facility]. Patient given 50mcg Fentanyl for pain. EKG performed. Patients eyes began to gaze and patient appeared to be posturing. Decision to intubate was made, 4mg Versed administered for seizure like activity. 20mg Etomidate and 100mg Rocuronium administered for RSI. Patient intubated with a 7.5 ETT, 24 at the teeth, positive color change, bilateral breath sounds present. Temp sensing pretty and OG placed (recheck XR to use OG). Patient taken to CT and then to room 21. [facility] 05-09-2023 History of Present illness Narrative [facility] Post [facility] Transplant [facility] Progress Note: Nick Hernández is a 63 y.o. male presents for post lung transplant follow up. No respiratory complaints this visit Transplant Info: DOT: 12/11/2018 (Lung) Alloscreen: Lab Results Component Value Date ABSPC No DSA detected 11/08/2022 ABSPC No DSA detected 10/29/2021 ABSPC No DSA detected 02/26/2021 ABSPC No DSA detected 12/06/2019 ABSPC No DSA detected 10/04/2019 ABSPC No DSA detected 07/05/2019 Return to Clinic: October Lab Draw Frequency: monthly Immunosuppressive Medications: Mycophenolate: 1000mg twice daily Prednisone: 5mg daily Tacrolimus: 0.5mg twice daily; (goal: 4-6) Oxygen Requirements: Nick is not on home oxygen he does not wear CPAP/ BiPAP Today's Vital Signs: Vitals: 05/09/23 1347 BP: 149/73 Pulse: 60 Resp: 18 SpO2: 97% Weight: 95.6 kg (210 lb 11.2 oz) Height: 1.829 m (6') Wt Readings from Last 6 Encounters: 11/08/22 99.1 kg (218 lb 8 oz) 05/11/22 95.3 kg (210 lb) 05/03/22 94.3 kg (207 lb 14.4 oz) 10/29/21 91.8 kg (202 lb 6.4 oz) 10/29/21 91 kg (200 lb 9.9 oz) 06/29/21 91.4 kg (201 lb 9.6 oz) Patient Education Medication reconciliation completed and continued education regarding current medications provided to patient. Emotional support and reflective listening ongoing. AVS and follow up schedule reviewed with Nick. All questions answered per Nick's satisfaction. Patient verbalized understanding and appreciation. Taina Mcdaniel RN, BSN, PCCN Lung Supervisor Filter Assembly Images from the original note were not included. LUNG TRANSPLANT PROGRESS NOTE Referring provider: Sanam Akers Nick Hernández is a 63 y.o. male s/p lung transplantation. IMPRESSION AND RECOMMENDATIONS Drug Levels Lab Results Component Value Date TACROLIMUS 16.2 (H) 02/26/2021 TACROLIMUS 16.2 (H) 12/06/2019 TACROLIMUS 9.0 09/10/2019 Lab Results Component Value Date TACROTRGHMAN 5.4 03/22/2023 TACROTRGHMAN 5.0 02/22/2023 TACROTRGHMAN 5.4 01/24/2023 Transplant Bilateral lung transplant (12/11/18) for COPD (Dr. Reyna) Allograft function: Stable - Reference FEV1 = 2.88 L (reset due to weight gain 01/31/20); 80% = 2.30 Immunosuppression, high risk meds, therapeutic drug monitoring PLAN: - Tacrolimus: Goal trough: 4-6; - Mycophenolate: 1000mg bid - Prednisone: 5 mg daily - TITUS Prophylaxis: azithromycin Respiratory PLAN: - Home microspirometry, Monthly in-lab spirometry ID CMV D-/R- EBV D+/R+ Vaccinations Influenza: Jul 2021 per patient PCV13: 05/09/18 COVID-19: 01/09/21, 02/06/21 (Moderna); 10/16/21; 08/13/22 PLAN: PPSV23 due Prophylaxis: - Bactrim 1 DS QMWF CV CAD, diffuse Systemic hypertension PLAN: - ASA, Coreg, Norvasc Renal / Mg wasting due to CNI PLAN: - Monitor BUN/Cr - Mg supplementation GI GERD PLAN: - PPI Heme Anemia PLAN: - Monitor CBC Endocrine Osteoporosis Prediabetes PLAN: - Ca / Vit D - sitagliptin Musculoskeletal / Skin PLAN: - Maintain activity level - Annual dermatologic evaluation Neuro/Psych PLAN: - On gabapentin Colonoscopy and Bone densitometer due. This was discussed with the patient POST TRANSPLANT HISTORY - planned Bilateral lung transplantation (12/11/18) for COPD (Dr. Reyna) - Induction with Basiliximab on Day 0 and 4 - PGD @ T24: 0 - PGD @ T48: 0 - PGD @ T72: 0 - Graft function - Reference FEV1 = 2.88 L (reset due to weight gain 01/31/20); 80% = 2.30 - Status - ABO O positive - CMV: Donor NEG Recipient NEG - EBV: Donor POS Recipient POS - Infection: - Donor cultures: S aureus, C albicans - Recipient cultures: S pseudointermedius - 12/12/18 BAL: Metapneumovirus - Ribavirin + prednisone taper - 12/26/18 BAL: Metapneumovirus - Ribavirin + prednisone taper - 03/13/19 BW: S epidermidis, S lugunensis - 04/10/19 BAL: E cloacae - 02/04/21 Thigh bx: Herpesvirus - valacyclovir x 7 days - Transbronchial biopsies: - 02/06/19: A0B0. BALT hyperplasia - 03/13/19: A0B1, aspirated vegetable material - 03/13/19 EBBx: granulation tissue/inflammatory polyp - 04/10/19 EBBx: exuberant granulation tissue with suppurative inflammation - 05/22/19: A0Bx - 07/17/19 EBBx: granulation tissue - 09/03/19 TBBx: A0Bx, focal stenosis (ISHLT stenosis c, c). 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); asymptomatic - Nephrolithiasis s/p lithotripsy - Airway issues: benign growth (granulation tissue), focal moderate BI stenosis (ISHLT stenosis c,c) - - Severe R hip arthritis s/p R COTY (03/06/20) - Lumbar compression fractures s/p vertebroplasties - H/o Bronchial granulation tissue requiring repeat excision; RBI stenosis (ISHLT c, c) - Erectile Dysfunction - 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 - 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 No complaints. Continues to do well. No complaints of dyspnea and does not require supplemental oxygen. He has been active, and working out . He says he recently had a high lumbar fracture, and is following up with ortho re this. REVIEW OF SYSTEMS All other systems reviewed and are negative for pertinent findings except as mentioned in the HPI/Interval History. MEDICATIONS AND ALLERGIES Current Outpatient Medications Medication Sig Last Dose Start Date End Date Authorizing Provider acetaminophen 325 MG tablet Take 2 tablets by mouth every 6 hours as needed for mild or moderate pain. Taking 05/03/22 Nick Lopez MD alendronate 70 MG tablet 70 mg, Oral, EVERY 7 DAYS Taking 07/01/22 Akbar Davis DO amLODIPine 5 MG tablet 5 mg, Oral, DAILY Taking 07/30/22 Nick Lopez MD aspirin (RA Aspirin Adult Low Dose) 81 MG Chew Tab chewable tablet 81 mg, Oral, DAILY Taking 09/12/22 Nick Lopez MD azithromycin 250 MG tablet 250 mg, Oral, EVERY M, W & F Taking 09/15/22 09/15/27 Stephania De León, INTERIOR HORTICULTURIST-FINISHER [employer] Calcium Citrate-Vitamin D 315-200 MG-UNIT tablet 1 tablet, Oral, EVERY 12 HOURS Taking 07/01/22 Akbar Davis DO carveDILOL 25 MG tablet 25 mg, Oral, 2 TIMES DAILY Taking 03/17/23 Nick Lopez MD ergocalciferol 1.25 MG (11548 UT) capsule 50,000 Units, Oral, WEEKLY Taking 07/01/22 Akbar Davis DO glucose blood test strips (OneTouch Ultra) Strip strip 400 strips, Instructed, 2 TIMES DAILY Taking 04/29/22 Akbar Davis DO Lancets Misc 1 Each, Unknown, 2 TIMES DAILY Taking 12/22/22 Christelle Espino MD magnesium oxide 400 MG tablet 800 mg, Oral, EVERY 12 HOURS Taking 07/07/22 Nick Lopez MD multivitamin (multivitamin) tablet 1 tablet, Oral, DAILY Taking 07/01/22 Akbar Davis DO mycophenolate mofetil (CELLCEPT) 250 MG capsule 1,000 mg, Oral, EVERY 12 HOURS Taking 06/02/22 Nick Lopez MD oxybutynin CR 10 MG Tab SR 24 HR tablet 10 mg, Oral, DAILY Taking 04/23/22 Historical Provider pantoprazole [address] DR 40 mg, Oral, 2 TIMES DAILY Taking 07/30/22 Nick Lopez MD predniSONE 5 MG tablet 5 mg, Oral, DAILY Taking 03/04/23 Nick Lopez MD Rosuvastatin 10 MG tablet 10 mg, Oral, DAILY Taking 03/17/23 Nick Lopez MD SITagliptin (Januvia) 100 MG tablet 100 mg, Oral, DAILY Taking 07/01/22 Akbar Davis DO sulfamethoxazole-trimethoprim 800-160 MG per tablet 1 tablet, Oral, THREE TIMES WEEKLY Taking 09/13/22 09/13/27 Nick Lopez MD tacrolimus (PROGRAF) 0.5 MG capsule Take 1 capsule by mouth daily every morning AND 1 capsule every evening. Taking 06/02/22 Nick Lopez MD Alcohol Swabs 70 % Pads 1 Each, Unknown, 2 TIMES DAILY 04/29/22 Akbar Davis DO Gabapentin 400 MG capsule TAKE 1 CAPSULE BY MOUTH EVERY MORNING, TAKE 2 CAPSULES BY MOUTH EVERY AFTERNOON and TAKE 1 CAPSULE BY MOUTH EVERY EVENING 10/28/22 04/27/23 Nick Lopez MD Allergies: Allergies Allergen Reactions Breo Ellipta [Fluticasone Furoate-Vilanterol] Shortness of Breath Codemoreno [place] PHYSICAL EXAM BP 149/73 (BP Location: Right arm, BP Position: Sitting) Pulse 60 Resp 18 Ht 1.829 m (6') Wt 95.6 kg (210 lb 11.2 oz) SpO2 97% Comment: RA BMI 28.58 kg/m Smoking Status Former Body mass index is 28.58 kg/m . Wt Readings from Last 3 Encounters: 05/09/23 95.6 kg (210 lb 11.2 oz) 11/08/22 99.1 kg (218 lb 8 oz) 05/11/22 95.3 kg (210 lb) GENERAL: Well-developed male. No apparent distress. HEENT: Pupils equal, round. Extraocular muscles intact. No scleral icterus. Oropharynx clear with moist mucus membranes. No erythema or exudate. NECK: Neck supple. No lymphadenopathy. No thyromegaly. No stridor. CARDIOVASCULAR: Regular rate and regular rhythm. No murmurs, rubs or gallops. Normal S1 and S2. PULMONARY: Clear to auscultation bilaterally but diminished at right basse. No wheezing, rhonchi or rales. GASTROINTESTINAL: Soft, non-tender, non-distended. Bowel sounds present. MUSCULOSKELETAL: No cyanosis, clubbing. No joint effusions or erythema. SKIN: Warm and dry. No jaundice or rash. No LE edema. NEUROLOGIC: A&O x 3. Moves all extremities. PSYCHIATRIC: Affect normal. Mood normal. DATA REVIEW CBC Lab Results Component Value Date WBC 4.6 03/22/2023 HGB 14 03/22/2023 HCT 42 03/22/2023 PLATELET 205 03/22/2023 MCV 92.6 11/08/2022 CMP Lab Results Component Value Date SODIUM 141 03/22/2023 POTASSIUM 4.2 03/22/2023 CHLORIDE 106 03/22/2023 CO2 26 03/22/2023 BUN 21 03/22/2023 CREATSERUM 1.24 03/22/2023 GLUCOSE 100 03/22/2023 Lab Results Component Value Date ALT 21 03/22/2023 AST 17 03/22/2023 GGT 29 03/22/2023 ALKPHOS 66 03/22/2023 BILITOTAL 0.4 03/22/2023 BILIDIRECT 0.1 03/22/2023 Lab Results Component Value Date CMVPCR Not detected 03/22/2023 Imaging/Radiological Studies I have personally reviewed and interpreted the radiographic data in [facility]. PFT Results 01/28/2021 12:00 04/01/2021 12:00 04/29/2021 12:00 05/27/2021 12:00 06/29/2021 11:00 PFT Results FVC-Pre 3.84 Liters FVC 4.38 4.07 4.33 4.5 FVC % Pred, % Ref 85 79 84 88 FVC-%Pred-Pre 83 % FEV1-Pre 2.36 Liters FEV1 Pre Liters 2.6 2.44 2.66 2.57 FEV1 % Pred % Ref 66 63 68 66 FEV1-%Pred-Pre 67 % FEV1/FVC-Pre 61 % FEV1/FVC % Ref 59 60 61 57 [id number] 0.99 L/sec FEF 25-75% 1.21 % 1.03 % 1.16 % 0.93 % TLCPleth-Pre 5.98 Liters RVPleth-Pre 1.84 Liters DLCOunc-Pre 25.27 mL/mmHg/min DLCOunc-%Pred-Pre 89 % DLCOcor-%Pred-Pre 93 % 07/29/2021 12:00 09/21/2021 12:00 10/29/2021 12/01/2021 12:00 12/28/2021 12:00 PFT Results FVC-Pre 4.47 Liters FVC 4.23 4.08 4.43 3.96 FVC % Pred, % Ref 82 79 86 77 FVC-%Pred-Pre 96 % FEV1-Pre 2.81 Liters FEV1 Pre Liters 2.6 2.55 2.77 2.46 FEV1 % Pred % Ref 67 65 71 63 FEV1-%Pred-Pre 79 % FEV1/FVC-Pre 63 % FEV1/FVC % Ref 62 63 82 62 [id number] 1.49 L/sec FEF 25-75% 1.12 % 1.22 % 1.32 % 1.11 % TLCPleth-Pre 5.7 Liters RVPleth-Pre 1.6 Liters DLCOunc-Pre 23.55 mL/mmHg/min DLCOunc-%Pred-Pre 83 % DLCOcor-%Pred-Pre 80 % 01/28/2022 12:00 03/30/2022 12:00 05/03/2022 15:00 05/31/2022 12:00 07/01/2022 12:00 PFT Results FVC-Pre 4.15 Liters FVC 4.31 3.69 4.22 4.43 FVC % Pred, % Ref 84 72 82 87 FVC-%Pred-Pre 90 % FEV1-Pre 2.65 Liters FEV1 Pre Liters 2.77 2.09 2.52 2.74 FEV1 % Pred % Ref 71 54 65 71 FEV1-%Pred-Pre 76 % FEV1/FVC-Pre 64 % FEV1/FVC % Ref 64 57 60 62 [id number] 1.37 L/sec FEF 25-75% 1.46 % 0.65 % 1.07 % 1.25 % TLCPleth-Pre RVPleth-Pre DLCOunc-Pre DLCOunc-%Pred-Pre DLCOcor-%Pred-Pre 07/30/2022 12:00 08/30/2022 12:00 09/29/2022 12:00 11/08/2022 13:32 11/29/2022 12:00 PFT Results FVC-Pre 3.9 Liters 3.9 Liters FVC 4.1 4.05 3.85 3.78 FVC % Pred, % Ref 80 79 75 77 FVC-%Pred-Pre 84 % 84 % FEV1-Pre 2.68 Liters 2.68 Liters FEV1 Pre Liters 2.68 2.5 2.33 2.36 FEV1 % Pred % Ref 69 65 60 62 FEV1-%Pred-Pre 76 % 76 % FEV1/FVC-Pre 69 % 69 % FEV1/FVC % Ref 65 62 60 62 [id number]-Xlv 1.73 L/sec 1.73 L/sec FEF 25-75% 1.2 % 1.07 % 1.03 % TLCPleth-Pre 5.32 Liters 5.32 Liters RVPleth-Pre 1.33 Liters 1.33 Liters DLCOunc-Pre 25.61 mL/mmHg/min 25.61 mL/mmHg/min DLCOunc-%Pred-Pre 91 % 91 % DLCOcor-%Pred-Pre 89 % 89 % 12/27/2022 12:00 01/24/2023 12:00 02/28/2023 12:00 03/28/2023 12:00 05/09/2023 13:23 PFT Results FVC-Pre 3.68 Liters FVC 3.9 3.63 3.56 3.98 FVC % Pred, % Ref 79 71 70 78 FVC-%Pred-Pre 80 % FEV1-Pre 2.41 Liters FEV1 Pre Liters 2.41 2.32 2.22 2.46 FEV1 % Pred % Ref 64 60 57 64 FEV1-%Pred-Pre 69 % FEV1/FVC-Pre 65 % FEV1/FVC % Ref 62 64 62 62 [id number]-Plq 1.31 L/sec FEF 25-75% 1.08 % 1.04 % 1.16 % TLCPleth-Pre 5.54 Liters RVPleth-Pre 1.61 Liters DLCOunc-Pre 23.94 mL/mmHg/min DLCOunc-%Pred-Pre 86 % DLCOcor-%Pred-Pre 87 % Details More values are hidden. Newest values shown. Go to activity for more data. PULMONARY CXR - 05/09/23 IMPRESSION: Status post bilateral lung transplant. Chronic right lower lobe volume loss/atelectasis. No acute cardiopulmonary disease. CT Chest - 11/08/22 10/29/2021 Pending official read - appears stable No definite change from the previous study. Chronic elevation of the right hemidiaphragm with some volume loss and scarring in the right lung base remains, but the transplant lungs are otherwise clear. Irregularity of the bronchus intermedius appears unchanged. No definite air trapping is seen at this time, though the difference is likely a consequence of poor depth of expiration, particularly when compared to the prior study. 6MWT 02/26/21: 1598 feet (487 meters), lowest SpO2 97%, oxygen requirement: Room air 02/22/19: 1591 feet (485 meters), lowest SpO2 99%, oxygen requirement: Room air 09/28/18 (pre-tx): 984 feet (300 meters), lowest SpO2 95%, oxygen requirement: 3 LPM CARDIOLOGY TTE - 10/29/21 Left Ventricle: Chamber size is normal. Normal wall thickness. Normal global wall motion. Regional wall motion is normal. Ejection fraction is normal (60 - 65%). Diastolic function is normal. Left Atrium: Chamber size is moderately enlarged. Mitral Valve: Normal appearing leaflets. Leaflet mobility is normal. Trace regurgitation. No valve stenosis. Tricuspid Valve: Normal leaflets. Leaflet mobility is normal. Trace regurgitation. No stenosis. No echo/Doppler evidence for pulmonary hypertension. 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 There has been improvement of bone density since the previous examination. Colonoscopy - 06/21/2018 1. Cecum: Normal appearance no mass lesions normal IIeocecal valve. 2. Ascendlng colon. Normal appearance no mass lesions. 3. Transverse colon: Normal appearance. 2 polyps were identified. One was removed with biopsy forceps completely. The other was removed removed with snare cautery technique. Both of them were brought back to the channel of the scope. 4. Descending colon: Small polyp was identlfled was removed with snare cautery technique and brought back to the channel the scope. 5. Sigmold colon: Normal appearance minlmal dlverticular disease seen. 6. Rectum: Normal appearance no mass lesIons Internal hemorrholds were Identifled. Scope was withdrawn digital rectal exam showed no masses within the anus and a normal prostate smooth and small. Patlent will need to have another colonoscopy In 3 years. MICROSCOPIC DIAGNOSIS Transverse colon polyps, biopsy: Fragments of tubular adenoma. Fragments of fecal material. PSA - 02/26/21 2.03 Christelle Espino MD Division of Pulmonary, Critical Care & Sleep Medicine Department of Internal Medicine [facility] documented in this encounter [facility] 05-09-2023 Instructions Christelle Espino MD - 05/09/2023 1:30 PM EDT You were seen today in [facility] for a Post-transplant visit. 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 male who presents for post lung transplant follow up. Fell in the bathtub in September. Separate occasion, lift chair broke while he was seated and was injured. Ortho is treating his back injury. [place] goal: 4-6 Current Immunosuppression Dosing: Tacrolimus: 0.5mg in the morning and 0.5mg in the evening Mycophenolate Mofetil: 1000mg twice daily Prednisone: 5mg daily Transplant Info: DOT: 12/11/2018 (Lung) Tacrolimus levels drawn at [facility]: Lab Results Component Value Date TACROLIMUS 16.2 (H) 02/26/2021 TACROLIMUS 16.2 (H) 12/06/2019 TACROLIMUS 9.0 09/10/2019 Alloscreen History: Lab Results Component Value Date ABSPC No DSA detected 10/29/2021 ABSPC No DSA detected 02/26/2021 ABSPC No DSA detected 12/06/2019 ABSPC No DSA detected 10/04/2019 ABSPC No DSA detected 07/05/2019 ABSPC No DSA detected 06/07/2019 Objective: Vitals: 11/08/22 1440 BP: 112/72 Pulse: 67 Resp: 16 Temp: 98 degrees F (36.7 degrees C) TempSrc: Oral SpO2: 95% Weight: 99.1 kg (218 lb 8 oz) Height: 1.803 m (5' 11 ) Wt Readings from Last 3 Encounters: 11/08/22 99.1 kg (218 lb 8 oz) 05/11/22 95.3 kg (210 lb) 05/03/22 94.3 kg (207 lb 14.4 oz) Plan: Lab Draw Frequency: monthly PFT Frequency: monthly Next TBBx: As needed Medication reconciliation completed and continued education regarding medications provided to patient. Follow up schedule reviewed. Emotional support provided. Patient verbalized understanding and appreciation. AVS provided. PAPO Dolan, RN, [facility] Lung Supervisor Filter Assembly Images from the original note were not included. LUNG TRANSPLANT PROGRESS NOTE Referring provider: Sanam Akers Nick Hernández is a 62 y.o. male s/p lung transplantation. IMPRESSION AND RECOMMENDATIONS Drug Levels Lab Results Component Value Date TACROLIMUS 16.2 (H) 02/26/2021 TACROLIMUS 16.2 (H) 12/06/2019 TACROLIMUS 9.0 09/10/2019 Lab Results Component Value Date TACROTRGHMAN 4.6 11/01/2022 TACROTRGHMAN 5.8 09/20/2022 TACROTRGHMAN 14.7 08/30/2022 Transplant Bilateral lung transplant (12/11/18) for COPD (Dr. Reyna) Allograft function: Stable 11/08/22 - Reference FEV1 = 2.88 L (reset due to weight gain 01/31/20); 80% = 2.30 Immunosuppression, high risk meds, therapeutic drug monitoring PLAN: - Tacrolimus: Goal trough: 4-6; monitor levels at least monthly; no change in dose today - Mycophenolate: 1000mg bid - Prednisone: 5 mg daily - TITUS Prophylaxis: azithromycin Respiratory Bilateral lung transplant (12/11/18) for COPD (Dr. 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 Reyna) - Induction with Basiliximab on Day 0 and 4 - PGD @ T24: 0 - PGD @ T48: 0 - PGD @ T72: 0 - Graft function - Reference FEV1 = 2.88 L (reset due to weight gain 01/31/20); 80% = 2.30 - Status - ABO O positive - CMV: Donor NEG Recipient NEG - EBV: Donor POS Recipient POS - Infection: - Donor cultures: S aureus, C albicans - Recipient cultures: S pseudointermedius - 12/12/18 BAL: Metapneumovirus - Ribavirin + prednisone taper - 12/26/18 BAL: Metapneumovirus - Ribavirin + prednisone taper - 03/13/19 BW: S epidermidis, S lugunensis - 04/10/19 BAL: E cloacae - 02/04/21 Thigh bx: Herpesvirus - valacyclovir x 7 days - Transbronchial biopsies: - 02/06/19: A0B0. BALT hyperplasia - 03/13/19: A0B1, aspirated vegetable material - 03/13/19 EBBx: granulation tissue/inflammatory polyp - 04/10/19 EBBx: exuberant granulation tissue with suppurative inflammation - 05/22/19: A0Bx - 07/17/19 EBBx: granulation tissue - 09/03/19 TBBx: A0Bx, focal stenosis (ISHLT stenosis c, c). 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); asymptomatic - Nephrolithiasis s/p lithotripsy - Airway issues: benign growth (granulation tissue), focal moderate BI stenosis (ISHLT stenosis c,c) - - Severe R hip arthritis s/p R COTY (03/06/20) - Lumbar compression fractures s/p vertebroplasties - H/o Bronchial granulation tissue requiring repeat excision; RBI stenosis (ISHLT c, c) - Erectile Dysfunction - 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 - 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 No complaints. Continues to do well. No complaints of dyspnea and does not require supplemental oxygen. He has been active, and [place] [facility] [place] [employer] He says he recently had a high lumbar fracture, and is following up with ortho re this. REVIEW OF SYSTEMS All other systems reviewed and are negative for pertinent findings except as mentioned in the HPI/Interval History. MEDICATIONS AND ALLERGIES Current Outpatient Medications Medication Sig Last Dose Start Date End Date Authorizing Provider acetaminophen 325 MG tablet Take 2 tablets by mouth every 6 hours as needed for mild or moderate pain. Taking 05/03/22 Nick Lopez MD Alcohol Swabs 70 % Pads 1 Each, Unknown, 2 TIMES DAILY Taking 04/29/22 Akbar Davis DO alendronate 70 MG tablet 70 mg, Oral, EVERY 7 DAYS Taking 07/01/22 Akbar Davis DO amLODIPine 5 MG tablet 5 mg, Oral, DAILY Taking 07/30/22 Nick Lopez MD aspirin (RA Aspirin Adult Low Dose) 81 MG Chew Tab chewable tablet 81 mg, Oral, DAILY Taking 09/12/22 Nick Lopez MD azithromycin 250 MG tablet 250 mg, Oral, EVERY M, W & F Taking 09/15/22 09/15/27 Stephania De León, INTERIOR HORTICULTURIST-FINISHER [employer] Calcium Citrate-Vitamin D 315-200 MG-UNIT tablet 1 tablet, Oral, EVERY 12 HOURS Taking 07/01/22 Akbar Davis DO carveDILOL 25 MG tablet 25 mg, Oral, 2 TIMES DAILY Taking 07/07/22 Nick Lopez MD ergocalciferol 1.25 MG (48316 UT) capsule 50,000 Units, Oral, WEEKLY Taking 07/01/22 Akbar Davis DO Gabapentin 400 MG capsule TAKE 1 CAPSULE BY MOUTH EVERY MORNING, TAKE 2 CAPSULES BY MOUTH EVERY AFTERNOON and TAKE 1 CAPSULE BY MOUTH EVERY EVENING Taking 10/28/22 04/27/23 Nick Lopez MD glucose blood test strips (OneTouch Ultra) Strip strip 400 strips, Instructed, 2 TIMES DAILY Taking 04/29/22 Akbar Davis DO Lancets Misc 1 Each, Unknown, 2 TIMES DAILY Taking 04/29/22 Akbar Davis DO magnesium oxide 400 MG tablet 800 mg, Oral, EVERY 12 HOURS Taking 07/07/22 Nick Lopez MD multivitamin (multivitamin) tablet 1 tablet, Oral, DAILY Taking 07/01/22 Akbar Davis DO mycophenolate mofetil (CELLCEPT) 250 MG capsule 1,000 mg, Oral, EVERY 12 HOURS Taking 06/02/22 Nick Lopez MD oxybutynin CR 10 MG Tab SR 24 HR tablet 10 mg, Oral, DAILY Taking 04/23/22 Historical Provider pantoprazole [address] DR 40 mg, Oral, 2 TIMES DAILY Taking 07/30/22 Nick Lopez MD predniSONE 5 MG tablet 5 mg, Oral, DAILY Taking 09/20/22 Akbar Davis DO rosuvastatin 10 MG tablet 10 mg, Oral, DAILY Taking 07/07/22 Nick Lopez MD SITagliptin (Januvia) 100 MG tablet 100 mg, Oral, DAILY Taking 07/01/22 Akbar Davis DO sulfamethoxazole-trimethoprim 800-160 MG per tablet 1 tablet, Oral, THREE TIMES WEEKLY Taking 09/13/22 09/13/27 Nick Lopez MD tacrolimus (PROGRAF) 0.5 MG capsule Take 1 capsule by mouth daily every morning AND 1 capsule every evening. Taking 06/02/22 Nick Lopez MD Allergies: Allergies Allergen Reactions Breo Ellipta [Fluticasone Furoate-Vilanterol] Shortness of Breath Codeine Hivharmeet PHYSICAL EXAM BP 112/72 (BP Location: Left arm, BP Position: Sitting) Pulse 67 Temp 98 F (36.7 C) (Oral) Resp 16 Ht 1.803 m (5' 11 ) Wt 99.1 kg (218 lb 8 oz) SpO2 95% Comment: RA BMI 30.47 kg/m Smoking Status Former Body mass index is 30.47 kg/m . Wt Readings from Last 3 Encounters: 11/08/22 99.1 kg (218 lb 8 oz) 05/11/22 95.3 kg (210 lb) 05/03/22 94.3 kg (207 lb 14.4 oz) GENERAL: Well-developed male. No apparent distress. HEENT: Pupils equal, round. Extraocular muscles intact. No scleral icterus. Oropharynx clear with moist mucus membranes. No erythema or exudate. NECK: Neck supple. No lymphadenopathy. No thyromegaly. No stridor. CARDIOVASCULAR: Regular rate and regular rhythm. No murmurs, rubs or gallops. Normal S1 and S2. PULMONARY: Clear to auscultation bilaterally but diminished at right basse. No wheezing, rhonchi or rales. GASTROINTESTINAL: Soft, non-tender, non-distended. Bowel sounds present. MUSCULOSKELETAL: No cyanosis, clubbing. No joint effusions or erythema. SKIN: Warm and dry. No jaundice or rash. No LE edema. NEUROLOGIC: A&O x 3. Moves all extremities. Gait normal. PSYCHIATRIC: Affect normal. Mood normal. DATA REVIEW CBC Lab Results Component Value Date WBC 5.94 11/08/2022 HGB 14.3 11/08/2022 HCT 42.8 11/08/2022 PLATELET 210 11/08/2022 MCV 92.6 11/08/2022 CMP Lab Results Component Value Date SODIUM 142 11/08/2022 POTASSIUM 4.8 11/08/2022 CHLORIDE 106 11/08/2022 CO2 26 11/08/2022 BUN 16 11/08/2022 CREATSERUM 1.19 11/08/2022 GLUCOSE 104 (H) 11/08/2022 Lab Results Component Value Date ALT 36 11/08/2022 AST 30 11/08/2022 GGT 40 11/01/2022 ALKPHOS 74 11/08/2022 BILITOTAL 0.3 11/08/2022 BILIDIRECT 0.1 11/08/2022 Lab Results Component Value Date CMVPCR NOT DETECTED 11/01/2022 Imaging/Radiological Studies I have personally reviewed and interpreted the radiographic data in [facility]. PFT Results 06/19/2020 14:30 07/22/2020 12:00 08/18/2020 14:30 09/16/2020 12:00 10/29/2020 12:00 PFT Results FVC-Pre 3.81 Liters 3.93 Liters FVC 4.12 4.06 4.56 FVC % Pred, % Ref 82 81 91 FVC-%Pred-Pre 82 % 84 % FEV1-Pre 2.35 Liters 2.5 Liters FEV1 Pre Liters 2.52 2.52 2.85 FEV1 % Pred % Ref 66 66 75 FEV1-%Pred-Pre 66 % 70 % FEV1/FVC-Pre 62 % 64 % FEV1/FVC % Ref 61 62 63 [id number]-Ceu 1.13 L/sec 1.17 L/sec FEF 25-75% 1 % 1.21 % 1.3 % TLCPleth-Pre 5.55 Liters RVPleth-Pre 1.74 Liters DLCOunc-Pre 22.5 mL/mmHg/min DLCOunc-%Pred-Pre 79 % DLCOcor-%Pred-Pre 82 % 12/31/2020 12:00 01/28/2021 12:00 04/01/2021 12:00 04/29/2021 12:00 05/27/2021 12:00 PFT Results FVC-Pre FVC 4.23 4.38 4.07 4.33 4.5 FVC % Pred, % Ref 82 85 79 84 88 FVC-%Pred-Pre FEV1-Pre FEV1 Pre Liters 2.71 2.6 2.44 2.66 2.57 FEV1 % Pred % Ref 69 66 63 68 66 FEV1-%Pred-Pre FEV1/FVC-Pre FEV1/FVC % Ref 64 59 60 61 57 [id number]-Nkt FEF 25-75% 1.38 % 1.21 % 1.03 % 1.16 % 0.93 % TLCPleth-Pre RVPleth-Pre DLCOunc-Pre DLCOunc-%Pred-Pre DLCOcor-%Pred-Pre 06/29/2021 11:00 07/29/2021 12:00 09/21/2021 12:00 10/29/2021 12/01/2021 12:00 PFT Results FVC-Pre 3.84 Liters 4.47 Liters FVC 4.23 4.08 4.43 FVC % Pred, % Ref 82 79 86 FVC-%Pred-Pre 83 % 96 % FEV1-Pre 2.36 Liters 2.81 Liters FEV1 Pre Liters 2.6 2.55 2.77 FEV1 % Pred % Ref 67 65 71 FEV1-%Pred-Pre 67 % 79 % FEV1/FVC-Pre 61 % 63 % FEV1/FVC % Ref 62 63 82 DNO63-85-Crt 0.99 L/sec 1.49 L/sec FEF 25-75% 1.12 % 1.22 % 1.32 % TLCPleth-Pre 5.98 Liters 5.7 Liters RVPleth-Pre 1.84 Liters 1.6 Liters DLCOunc-Pre 25.27 mL/mmHg/min 23.55 mL/mmHg/min DLCOunc-%Pred-Pre 89 % 83 % DLCOcor-%Pred-Pre 93 % 80 % 12/28/2021 12:00 01/28/2022 12:00 03/30/2022 12:00 05/03/2022 15:00 05/31/2022 12:00 PFT Results FVC-Pre 4.15 Liters FVC 3.96 4.31 3.69 4.22 FVC % Pred, % Ref 77 84 72 82 FVC-%Pred-Pre 90 % FEV1-Pre 2.65 Liters FEV1 Pre Liters 2.46 2.77 2.09 2.52 FEV1 % Pred % Ref 63 71 54 65 FEV1-%Pred-Pre 76 % FEV1/FVC-Pre 64 % FEV1/FVC % Ref 62 64 57 60 ELQ61-15-Vwk 1.37 L/sec FEF 25-75% 1.11 % 1.46 % 0.65 % 1.07 % TLCPleth-Pre RVPleth-Pre DLCOunc-Pre DLCOunc-%Pred-Pre DLCOcor-%Pred-Pre 07/01/2022 12:00 07/30/2022 12:00 08/30/2022 12:00 09/29/2022 12:00 11/08/2022 13:32 PFT Results FVC-Pre 3.9 Liters 3.9 Liters FVC 4.43 4.1 4.05 3.85 FVC % Pred, % Ref 87 80 79 75 FVC-%Pred-Pre 84 % 84 % FEV1-Pre 2.68 Liters 2.68 Liters FEV1 Pre Liters 2.74 2.68 2.5 2.33 FEV1 % Pred % Ref 71 69 65 60 FEV1-%Pred-Pre 76 % 76 % FEV1/FVC-Pre 69 % 69 % FEV1/FVC % Ref 62 65 62 60 [id number]-Edj 1.73 L/sec 1.73 L/sec FEF 25-75% 1.25 % 1.2 % 1.07 % 1.03 % TLCPleth-Pre 5.32 Liters 5.32 Liters RVPleth-Pre 1.33 Liters 1.33 Liters DLCOunc-Pre 25.61 mL/mmHg/min 25.61 mL/mmHg/min DLCOunc-%Pred-Pre 91 % 91 % DLCOcor-%Pred-Pre 89 % 89 % More values are hidden. Newest values shown. Go to activity for more data. PULMONARY CXR - 05/03/22 No acute cardiopulmonary process. CT Chest - 11/08/22 10/29/2021 Pending official read - appears stable No definite change from the previous study. Chronic elevation of the right hemidiaphragm with some volume loss and scarring in the right lung base remains, but the transplant lungs are otherwise clear. Irregularity of the bronchus intermedius appears unchanged. No definite air trapping is seen at this time, though the difference is likely a consequence of poor depth of expiration, particularly when compared to the prior study. 6MWT 02/26/21: 1598 feet (487 meters), lowest SpO2 97%, oxygen requirement: Room air 02/22/19: 1591 feet (485 meters), lowest SpO2 99%, oxygen requirement: Room air 09/28/18 (pre-tx): 984 feet (300 meters), lowest SpO2 95%, oxygen requirement: 3 LPM CARDIOLOGY TTE - 10/29/21 Left Ventricle: Chamber size is normal. Normal wall thickness. Normal global wall motion. Regional wall motion is normal. Ejection fraction is normal (60 - 65%). Diastolic function is normal. Left Atrium: Chamber size is moderately enlarged. Mitral Valve: Normal appearing leaflets. Leaflet mobility is normal. Trace regurgitation. No valve stenosis. Tricuspid Valve: Normal leaflets. Leaflet mobility is normal. Trace regurgitation. No stenosis. No echo/Doppler evidence for pulmonary hypertension. 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 There has been improvement of bone density since the previous examination. Colonoscopy - 06/21/2018 1. Cecum: Normal appearance no mass lesions normal IIeocecal valve. 2. Ascendlng colon. Normal appearance no mass lesions. 3. Transverse colon: Normal appearance. 2 polyps were identified. One was removed with biopsy forceps completely. The other was removed removed with snare cautery technique. Both of them were brought back to the channel of the scope. 4. Descending colon: Small polyp was identlfled was removed with snare cautery technique and brought back to the channel the scope. 5. Sigmold colon: Normal appearance minlmal dlverticular disease seen. 6. Rectum: Normal appearance no mass lesIons Internal hemorrholds were Identifled. Scope was withdrawn digital rectal exam showed no masses within the anus and a normal prostate smooth and small. Patlent will need to have another colonoscopy In 3 years. MICROSCOPIC DIAGNOSIS Transverse colon polyps, biopsy: Fragments of tubular adenoma. Fragments of fecal material. PSA - 02/26/21 2.03 Akbar Davis DO Division of Pulmonary, Critical Care & Sleep Medicine Department of Internal Medicine [facility] documented in this encounter [facility] 05-11-2022 Instructions Alicia Price RN - 05/11/2022 11:01 AM EDT Received Evusheld injection today. Please call [phone] if you have questions or concerns. documented in this encounter [facility] 05-11-2022 History of Present illness Narrative EVUSHELD Nursing Administration Documentation Note Patient was deemed eligible by provider for EVUSHELD (tixagevimab with cilgavimab) intramuscular injections per the criteria of the Emergency Use Authorization (EUA) for pre-exposure prophylaxis of COVID-19. The following steps were followed with EVUSHELD administration: Patient has not received COVD-19 immunization in previous two weeks. Patient does not report any COVID-19 symptoms or acute illness. Patient provided EUA Fact Sheet at time of administration. Patient administered both tixagevimab with cilgavimab syringes consecutively in two separate injection sites. Patient monitored for 1 hour after administration for common adverse reactions (headache, fatigue, cough) and signs of hypersensitivity. Educated patient to get COVID-19 tested if they experience any signs or symptoms of COVID-19 at any time. Patient denies concerns/questions at this time. documented in this encounter [facility] 05-03-2022 Instructions Nick Lopez MD - 05/03/2022 3:38 PM EDT You were seen today in The [facility] for a Post-transplant visit. Medication changes today We made no changes to your medications today. Other orders Will arrange to receive Evusheld. Following that should receive 4th COVID vaccine Vaccinations due 4th COVID vaccination None Health Maintenance Screenings due None Please call our office at [phone], if you have any questions or concerns documented in this encounter [facility] 05-03-2022 History of Present illness Narrative [facility] Progress Note: Nick Zuniga Hernández is a 62 y.o. male presents with the following: Due for 4th COVID vaccine and Evusheld Transplant Info: DOT: 12/11/2018 (Lung) Alloscreen: Lab Results Component Value Date ABSPC No DSA detected 10/29/2021 ABSPC No DSA detected 02/26/2021 ABSPC No DSA detected 12/06/2019 ABSPC No DSA detected 10/04/2019 ABSPC No DSA detected 07/05/2019 ABSPC No DSA detected 06/07/2019 Immunosuppressive Medications: Mycophenolate: 100mg twice daily Prednisone: 5mg daily Tacrolimus: 0.5mg twice daily; (goal: 4-6) Lab Results Component Value Date TACROLIMUS 16.2 (H) 02/26/2021 TACROLIMUS 16.2 (H) 12/06/2019 TACROLIMUS 9.0 09/10/2019 Review of Systems: A complete review of systems was performed and positive for symptoms mentioned in the history of present illness. The remainder of system review was negative. Vitals: 05/03/22 1439 BP: 128/70 Pulse: 57 Resp: 16 Temp: 97.7 degrees F (36.5 degrees C) TempSrc: Oral SpO2: 98% Weight: 94.3 kg (207 lb 14.4 oz) Height: 1.829 m (6') Wt Readings from Last 6 Encounters: 05/03/22 94.3 kg (207 lb 14.4 oz) 10/29/21 91.8 kg (202 lb 6.4 oz) 10/29/21 91 kg (200 lb 9.9 oz) 06/29/21 91.4 kg (201 lb 9.6 oz) 02/26/21 96.5 kg (212 lb 12.8 oz) 11/17/20 91.2 kg (201 lb) Plan: Medication reconciliation completed and continued education regarding current medications provided to patient. Emotional support and reflective listening ongoing. AVS and follow up schedule reviewed with Nick. All questions answered per Nick's satisfaction. Patient verbalized understanding and appreciation. Taina Mcdaniel RN, BSN, PCCN Lung Supervisor [employer] Images from the original note were not included. LUNG TRANSPLANT PROGRESS NOTE Referring provider: Sanam Hernández is a 62 y.o. male s/p lung transplantation. IMPRESSION AND RECOMMENDATIONS Drug Levels Lab Results Component Value Date TACROLIMUS 16.2 (H) 02/26/2021 TACROLIMUS 16.2 (H) 12/06/2019 TACROLIMUS 9.0 09/10/2019 Lab Results Component Value Date TACROTRGHMAN 7.8 03/02/2022 TACROTRGHMAN 7.3 12/18/2021 TACROTRGHMAN 6.1 11/24/2021 Transplant Bilateral lung transplant (12/11/18) for COPD (Dr. Reyna) Allograft function: improved 10/29/21 - Reference FEV1 = 2.88 L (reset due to weight gain 01/31/20); 80% = 2.30 Immunosuppression, high risk meds, therapeutic drug monitoring PLAN: - Tacrolimus: Goal trough: 4-6; monitor levels at least monthly; no change in dose today - Mycophenolate: 1000mg bid - Prednisone: 5 mg daily - TITUS Prophylaxis: azithromycin Respiratory Bilateral lung transplant (12/11/18) for COPD (Dr. Reyna) PLAN: - Home microspirometry, Monthly in-lab spirometry ID CMV D-/R- EBV D+/R+ Vaccinations Influenza: Jul 2021 per patient PCV13: 05/09/18 PPSV23: DUE COVID-19: 01/09/21, 02/06/21 (Moderna); Dose #3: 10/16/21 PLAN: - Needs Evusheld then followed by 4th COVID vaccine. Prophylaxis: - Bactrim 1 DS QMWF CV CAD, diffuse Systemic hypertension PLAN: - ASA, Coreg, Norvasc Renal / Mg wasting due to CNI PLAN: - Monitor BUN/Cr - Mg supplementation GI GERD PLAN: - PPI - Will order esophagram; may need referral to Dr. Ambrosio if reflux is now significant Heme Anemia PLAN: - Monitor CBC Endocrine Osteoporosis Prediabetes PLAN: - Ca / Vit D - sitagliptin Musculoskeletal / Skin No acute issues PLAN: - Maintain activity level - Annual dermatologic evaluation Neuro/Psych Mood swings PLAN: - On gabapentin - Encouraged patient to consider counseling or Psychologist for mood swings; he will consider it POST TRANSPLANT HISTORY - planned Bilateral lung transplantation (12/11/18) for COPD (Dr. Reyna) - Induction with Basiliximab on Day 0 and 4 - PGD @ T24: 0 - PGD @ T48: 0 - PGD @ T72: 0 - Graft function - Reference FEV1 = 2.88 L (reset due to weight gain 01/31/20); 80% = 2.30 - Status - ABO O positive - CMV: Donor NEG Recipient NEG - EBV: Donor POS Recipient POS - Infection: - Donor cultures: S aureus, C albicans - Recipient cultures: S pseudointermedius - 12/12/18 BAL: Metapneumovirus - Ribavirin + prednisone taper - 12/26/18 BAL: Metapneumovirus - Ribavirin + prednisone taper - 03/13/19 BW: S epidermidis, S lugunensis - 04/10/19 BAL: E cloacae - 02/04/21 Thigh bx: Herpesvirus - valacyclovir x 7 days - Transbronchial biopsies: - 02/06/19: A0B0. BALT hyperplasia - 03/13/19: A0B1, aspirated vegetable material - 03/13/19 EBBx: granulation tissue/inflammatory polyp - 04/10/19 EBBx: exuberant granulation tissue with suppurative inflammation - 05/22/19: A0Bx - 07/17/19 EBBx: granulation tissue - 09/03/19 TBBx: A0Bx, focal stenosis (ISHLT stenosis c, c). 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); asymptomatic - Nephrolithiasis s/p lithotripsy - Airway issues: benign growth (granulation tissue), focal moderate BI stenosis (ISHLT stenosis c,c) - - Severe R hip arthritis s/p R COTY (03/06/20) - Lumbar compression fractures s/p vertebroplasties - H/o Bronchial granulation tissue requiring repeat excision; RBI stenosis (ISHLT c, c) - Erectile Dysfunction - 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 - 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 No complaints. Continues to do well. No complaints of dyspnea and does not require supplemental oxygen. We discussed the addition of Gina to which he agrees. REVIEW OF SYSTEMS All other systems reviewed and are negative for pertinent findings except as mentioned in the HPI/Interval History. MEDICATIONS AND ALLERGIES Current Outpatient Medications Medication Sig Last Dose Start Date End Date Authorizing Provider acetaminophen 325 MG tablet Take 2 tablets by mouth every 6 hours as needed for mild or moderate pain. 05/03/22 Nick Lopez MD Alcohol Swabs 70 % Pads 1 Each, Unknown, 2 TIMES DAILY Taking 04/29/22 Akbar Davis, DO alendronate 70 MG tablet 70 mg, Oral, EVERY 7 DAYS Taking 06/29/21 Akbar Davis, DO amLODIPine 5 MG tablet 5 mg, Oral, DAILY Taking 04/29/22 Akbar Davis DO aspirin (RA Aspirin Adult Low Dose) 81 MG Chew Tab chewable tablet 81 mg, Oral, DAILY Taking 06/29/21 Akbar Davis DO azithromycin 250 MG tablet 250 mg, Oral, EVERY M, W & F Taking 06/29/21 06/29/26 Akbar Davis, DO Calcium Citrate-Vitamin D 315-200 MG-UNIT tablet 1 tablet, Oral, EVERY 12 HOURS Taking 06/29/21 Akbar Davis DO carveDILOL 25 MG tablet 25 mg, Oral, 2 TIMES DAILY Taking 08/10/21 Nick Lopez MD ergocalciferol 1.25 MG (49728 UT) capsule 50,000 Units, Oral, WEEKLY Taking 06/29/21 Akbar Davis DO gabapentin 400 MG capsule take 1 capsule by mouth every morning 2 capsules by mouth EVERY AFTERNOON and 1 capsule by mouth every evening Taking 04/29/22 10/26/22 Nick Lpoez MD glucose blood test strips (OneTouch Ultra) Strip strip 400 strips, Instructed, 2 TIMES DAILY Taking 04/29/22 Akbar Davis DO Lancets Misc 1 Each, Unknown, 2 TIMES DAILY Taking 04/29/22 Akbar Davis DO magnesium oxide 400 MG tablet 800 mg, Oral, EVERY 12 HOURS Taking 08/10/21 Nick Loepz MD multivitamin (multivitamin) tablet 1 tablet, Oral, DAILY Taking 06/29/21 Akbar Davis DO mycophenolate mofetil (CELLCEPT) 250 MG capsule 1,000 mg, Oral, EVERY 12 HOURS Taking 11/25/21 Nick Lopez MD oxybutynin CR 10 MG Tab SR 24 HR tablet 10 mg, Oral, DAILY Taking 04/23/22 Historical Provider pantoprazole [address] tablet DR 40 mg, Oral, 2 TIMES DAILY Taking 08/10/21 Nick Lopez MD predniSONE 5 MG tablet 5 mg, Oral, DAILY Taking 09/15/21 Akbar Davis DO rosuvastatin 10 MG tablet 10 mg, Oral, DAILY Taking 08/10/21 Nick Lopez MD SITagliptin (Januvia) 100 MG tablet 100 mg, Oral, DAILY Taking 06/29/21 Akbar Davis DO sulfamethoxazole-trimethoprim 800-160 MG per tablet 1 tablet, Oral, THREE TIMES WEEKLY Taking 08/10/21 08/10/26 Nick Lopez MD tacrolimus (generic) 0.5 MG capsule Take 1 capsule by mouth daily every morning AND 1 capsule every evening. Taking 06/29/21 Akbar Davis DO Allergies: Allergies Allergen Reactions Breo Ellipta [Fluticasone Furoate-Vilanterol] Shortness of Breath Codeine Hives PHYSICAL EXAM BP 128/70 (BP Location: Left arm, BP Position: Sitting) Pulse 57 Temp 97.7 F (36.5 C) (Oral) Resp 16 Ht 1.829 m (6') Wt 94.3 kg (207 lb 14.4 oz) SpO2 98% Comment: RA BMI 28.20 kg/m Smoking Status Former Smoker Body mass index is 28.2 kg/m . Wt Readings from Last 3 Encounters: 05/03/22 94.3 kg (207 lb 14.4 oz) 10/29/21 91.8 kg (202 lb 6.4 oz) 10/29/21 91 kg (200 lb 9.9 oz) GENERAL: Well-developed male. No apparent distress. HEENT: Pupils equal, round. Extraocular muscles intact. No scleral icterus. Oropharynx clear with moist mucus membranes. No erythema or exudate. NECK: Neck supple. No lymphadenopathy. No thyromegaly. No stridor. CARDIOVASCULAR: Regular rate and regular rhythm. No murmurs, rubs or gallops. Normal S1 and S2. PULMONARY: Clear to auscultation bilaterally but diminished at right basse. No wheezing, rhonchi or rales. GASTROINTESTINAL: Soft, non-tender, non-distended. Bowel sounds present. MUSCULOSKELETAL: No cyanosis, clubbing. No joint effusions or erythema. SKIN: Warm and dry. No jaundice or rash. No LE edema. NEUROLOGIC: A&O x 3. Moves all extremities. Gait normal. PSYCHIATRIC: Affect normal. Mood normal. DATA REVIEW CBC Lab Results Component Value Date WBC 5.8 03/02/2022 HGB 14.84 03/02/2022 HCT 44.3 03/02/2022 PLATELET 229 03/02/2022 MCV 93.3 10/29/2021 CMP Lab Results Component Value Date SODIUM 138 03/02/2022 POTASSIUM 4.3 03/02/2022 CHLORIDE 106 01/21/2022 CO2 24 01/21/2022 BUN 18 03/02/2022 CREATSERUM 1.12 11/24/2021 GLUCOSE 101 03/02/2022 Lab Results Component Value Date ALT 23 10/29/2021 AST 25 10/29/2021 GGT 29 10/29/2021 ALKPHOS 76 10/29/2021 BILITOTAL 0.8 03/02/2022 BILIDIRECT 0.0 03/02/2022 Lab Results Component Value Date CMVPCR <50 10/29/2021 Imaging/Radiological Studies I have personally reviewed and interpreted the radiographic data in IS. PFT Results Some values may be hidden. Unless noted otherwise, only the newest values recorded on each date are displayed. PFT Results 12/06/19 01/01/20 01/31/20 03/04/20 04/21/20 05/20/20 06/19/20 07/22/20 08/18/20 09/16/20 10/29/20 12/31/20 01/28/21 04/01/21 04/29/21 05/27/21 06/29/21 07/29/21 09/21/21 10/29/21 12/01/21 12/28/21 01/28/22 03/30/22 05/03/22 FVC-Pre 3.95 Liters 4.29 Liters 3.94 Liters 3.81 Liters 3.93 Liters 3.84 Liters 4.47 Liters 4.15 Liters FVC 3.92 3.92 4.18 4.12 4.06 4.56 4.23 4.38 4.07 4.33 4.5 4.23 4.08 4.43 3.96 4.31 3.69 FVC-%Pred-Pre 84 % 92 % 85 % 82 % 84 % 83 % 96 % 90 % FEV1-Pre 2.36 Liters 2.83 Liters 2.34 Liters 2.35 Liters 2.5 Liters 2.36 Liters 2.81 Liters 2.65 Liters FEV1 Pre Liters 2.38 2.36 2.44 2.52 2.52 2.85 2.71 2.6 2.44 2.66 2.57 2.6 2.55 2.77 2.46 2.77 2.09 FEV1-%Pred-Pre 66 % 79 % 66 % 66 % 70 % 67 % 79 % 76 % FEV1 % Pred % Ref 62 61 64 66 66 75 69 66 63 68 66 67 65 71 63 71 54 FEV1/FVC-Pre 60 % 66 % 59 % 62 % 64 % 61 % 63 % 64 % FEV1/FVC % Ref 61 60 58 61 62 63 64 59 60 61 57 62 63 82 62 64 57 [id number] 1 L/sec 1.65 L/sec 0.87 L/sec 1.13 L/sec 1.17 L/sec 0.99 L/sec 1.49 L/sec 1.37 L/sec FEF 25-75% 1 % 1.21 % 1.3 % 1.38 % 1.21 % 1.03 % 1.16 % 0.93 % 1.12 % 1.22 % 1.32 % 1.11 % 1.46 % 0.65 % TLCPleth-Pre 5.48 Liters 5.57 Liters 5.55 Liters 5.98 Liters 5.7 Liters RVPleth-Pre 1.53 Liters 1.55 Liters 1.74 Liters 1.84 Liters 1.6 Liters DLCOunc-Pre 21.63 mL/mmHg/min 22.14 mL/mmHg/min 22.5 mL/mmHg/min 25.27 mL/mmHg/min 23.55 mL/mmHg/min DLCOunc-%Pred-Pre 82 % 78 % 79 % 89 % 83 % DLCOcor-%Pred-Pre 84 % 85 % 82 % 93 % 80 % Some values recorded on this date have been omitted. PULMONARY CXR - 06/29/21 No acute cardiopulmonary process. Chronic elevation of the right hemidiaphragm with associated right basilar atelectasis. CT Chest - 10/19/21 No definite change from the previous study. Chronic elevation of the right hemidiaphragm with some volume loss and scarring in the right lung base remains, but the transplant lungs are otherwise clear. Irregularity of the bronchus intermedius appears unchanged. No definite air trapping is seen at this time, though the difference is likely a consequence of poor depth of expiration, particularly when compared to the prior study. 6MWT 02/26/21: 1598 feet (487 meters), lowest SpO2 97%, oxygen requirement: Room air 02/22/19: 1591 feet (485 meters), lowest SpO2 99%, oxygen requirement: Room air 09/28/18 (pre-tx): 984 feet (300 meters), lowest SpO2 95%, oxygen requirement: 3 LPM CARDIOLOGY TTE - 10/29/21 Left Ventricle: Chamber size is normal. Normal wall thickness. Normal global wall motion. Regional wall motion is normal. Ejection fraction is normal (60 - 65%). Diastolic function is normal. Left Atrium: Chamber size is moderately enlarged. Mitral Valve: Normal appearing leaflets. Leaflet mobility is normal. Trace regurgitation. No valve stenosis. Tricuspid Valve: Normal leaflets. Leaflet mobility is normal. Trace regurgitation. No stenosis. No echo/Doppler evidence for pulmonary hypertension. 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 There has been improvement of bone density since the previous examination. Colonoscopy - 06/21/2018 1. Cecum: Normal appearance no mass lesions normal IIeocecal valve. 2. Ascendlng colon. Normal appearance no mass lesions. 3. Transverse colon: Normal appearance. 2 polyps were identified. One was removed with biopsy forceps completely. The other was removed removed with snare cautery technique. Both of them were brought back to the channel of the scope. 4. Descending colon: Small polyp was identlfled was removed with snare cautery technique and brought back to the channel the scope. 5. Sigmold colon: Normal appearance minlmal dlverticular disease seen. 6. Rectum: Normal appearance no mass lesIons Internal hemorrholds were Identifled. Scope was withdrawn digital rectal exam showed no masses within the anus and a normal prostate smooth and small. Panchito will need to have another colonoscopy In 3 years. MICROSCOPIC DIAGNOSIS Transverse colon polyps, biopsy: Fragments of tubular adenoma. Fragments of fecal material. PSA - 02/26/21 2.03 Nick Lopez MD Division of Pulmonary, Critical Care & Sleep Medicine Department of Internal Medicine [facility] documented in this encounter [facility] 03-29-2022 Hospital Discharge instructions Lala Weiner PA-C - 03/29/2022 Images from the original note were not included. General Orthopedic Discharge Instructions The following instructions have been prepared to help you when you leave the hospital. Activity: -Ease into normal activity as tolerated. -Nonweight bearing on left upper extremity -Ice to affected hand Medications: see medication instructions. Please be sure to read and understand the information provided by your pharmacy. Ask your Pharmacist if any questions. Splint Care: -Keep your splint clean and dry -Do not weight bear with your splint on unless specifically instructed by your surgeon -Do not unwrap splint, your surgeon will remove it on followup Additional Instructions: Please make sure to call and make appointment with Dr. Monte for the next 3-4 days. You should return to the ER with new or worsening symptoms including loss of consciousness, uncontrolled nausea, vomiting, vision changes, or inability to move or feel your extremities. documented in this encounter [facility] Work Phone: 02-22-2022 History of Present illness Narrative AVS and medication information sheet given to patient. All questions answered. Tolerated medication well with no adverse events. documented in this encounter [facility] 09-01-2021 Hospital Discharge instructions Yanna Osborn, INTERIOR HORTICULTURIST - [employer] - 09/01/2021 Rest, ice, elevate left wrist. Wear splint for support. Tylenol for pain, norco for severe pain. Follow up with PCP in 1 week. Return if worse. The following attachments cannot be sent through Care Everywhere.Wrist Sprain (Citizen Of [place])RICE: General Info (Citizen Of [place])documented in this encounter [facility] Work Phone: Evaluation note Diagnosis 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 Angina pectoris (HCC) Other and unspecified angina pectoris documented in this encounter [facility] Work Phone: Evaluation note* Diagnosis Sprain of left wrist, initial encounter- Primary documented in this encounter [facility] Work Phone: Evaluation note* Diagnosis Lung transplant status (HCC) Immunodeficiency, unspecified (HCC) Lung transplant status (HCC) Immunodeficiency, unspecified (HCC) documented in this encounter [facility] Work Phone: Evaluation note* Diagnosis COVID-19- Primary [facility] Left eyelid laceration, initial encounter- Primary Injury of head, initial encounter Abrasion of left forearm, initial encounter Closed displaced fracture of neck of fifth metacarpal bone of left hand, initial encounter Lung transplant status (HCC) Immunodeficiency, unspecified (HCC) documented in this encounter [facility] Work Phone: Evaluation note* Diagnosis Lung transplant status (HCC) Immunodeficiency, unspecified (HCC) documented in this encounter [facility] Work Phone: Evaluation note* Diagnosis S/P lung transplant Lung replaced by transplant Immunosuppressed status Unspecified disorder of immune mechanism [facility] S/P lung transplant- Primary Lung replaced by transplant Immunosuppressed status Unspecified disorder of immune mechanism [facility] At increased risk of exposure to COVID-19 virus- Primary [facility] Lung transplant status (HCC) Lung transplant status (HCC) Lung transplant status (HCC) Lung transplant status (HCC) Lung transplant status (HCC) documented in this encounter [facility] Work Phone: Evaluation note* Diagnosis Lung transplant status (HCC) Lung transplant status (HCC) Lung transplant status (HCC) Lung transplant status (HCC) documented in this encounter [facility] Work Phone: Evaluation note* Diagnosis Lung transplant status (HCC) Lung transplant status (HCC) Lung transplant status (HCC) documented in this encounter [facility] Work Phone: Evaluation note* Diagnosis S/P lung transplant- Primary Lung replaced by transplant High risk medication use Encounter for long-term (current) use of other medications Immunosuppressed status Unspecified disorder of immune mechanism Therapeutic drug monitoring Encounter for therapeutic drug monitoring Osteoporosis, unspecified osteoporosis type, unspecified pathological fracture presence Acute low back pain, unspecified back pain laterality, unspecified whether sciatica present [facility] S/P lung transplant Lung replaced by transplant Encounter for aftercare following lung transplant Aftercare following organ transplant Immunosuppressed status Unspecified disorder of immune mechanism Screening for malignant neoplasm of respiratory organ Special screening for malignant neoplasm of the respiratory organs 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 [facility] S/P lung transplant Lung replaced by transplant Encounter for aftercare following lung transplant Aftercare following organ transplant Immunosuppressed status Unspecified disorder of immune mechanism [facility] status (HCC)- Primary 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) use of systemic steroids Age-related osteoporosis without current pathological fracture Lung transplant status (HCC) alf (current) use of systemic steroids Age-related osteoporosis without current pathological fracture [facility] Diagnosis [facility]HCC) [facility] Diagnosis [facility] (HCC)- Primary [facility]HCC)- [facility] Diagnosis Encounter for aftercare following lung transplant- Primary Aftercare following organ transplant Therapeutic drug monitoring Encounter for therapeutic drug monitoring High risk medication use Encounter for long-term (current) use of other medications Immunosuppression Unspecified disorder of immune mechanism documented in this encounter [facility] note* Diagnosis Acute respiratory failure with hypoxia and hypercapnia (CMS/HCC) (HCC)- Primary Chest pain, unspecified type Seizure (HCC) Other convulsions ISAIAS (acute kidney injury) (CMS/HCC) (HCC) Acute respiratory failure with hypoxia and hypercapnia (CMS/HCC) (HCC) Lung transplant recipient (HCC) [facility] Diagnosis Behavioral change- Primary Unspecified disturbance of conduct Altered mental status Electrolyte disorder (K, Cl, or Na) Electrolyte and fluid disorders not elsewhere classified documented in this encounter [facility] note* Diagnosis Behavioral change- Primary Unspecified disturbance of conduct Altered mental status Electrolyte disorder (K, Cl, or Na) Electrolyte and fluid disorders not elsewhere classified documented in this encounter [facility] note* Diagnosis Lung transplant status (HCC) Immunodeficiency, unspecified (HCC) [facility] Diagnosis Lung transplant status (HCC) Immunodeficiency, unspecified (HCC) [facility] (HCC) Immunodeficiency, unspecified (HCC) [facility] Pain in right arm Radiculopathy, cervical region Brachial neuritis or radiculitis nos Encephalopathy, unspecified Other symptoms and signs involving cognitive functions and awareness [facility] Diagnosis Pain in right arm Radiculopathy, cervical region Brachial neuritis or radiculitis nos Encephalopathy, unspecified Other symptoms and signs involving cognitive functions and awareness [facility] status (HCC)- Primary Immunodeficiency, unspecified (HCC) Lung transplant status (HCC) Immunodeficiency, unspecified (HCC) Lung transplant status (HCC) Immunodeficiency, unspecified (HCC) [facility] status (HCC) Immunodeficiency, unspecified (HCC) [facility] Diagnosis Primary generalized (osteo)arthritis [facility] Diagnosis S/P lung transplant- Primary Lung replaced by transplant Immunosuppressed status Unspecified disorder of immune mechanism High risk medication use Encounter for long-term (current) use of other medications Therapeutic drug monitoring Encounter for therapeutic drug monitoring Current chronic use of systemic steroids 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 Osteoporosis, unspecified osteoporosis type, unspecified pathological fracture presence Encounter for aftercare following lung transplant Aftercare following [facility] Lung transplant status (HCC) Immunodeficiency, unspecified (HCC) [facility] ([facility]) [facility] Diagnosis [facility] transplant status (HCC)- Primary Immunodeficiency, unspecified (HCC) [facility] status (HCC)- Primary [facility] Diagnosis Right shoulder pain, unspecified chronicity- Primary [facility] Other osteoporosis without current pathological fracture- Primary Current use of steroid medication History of recurrent vertebral fractures Personal history of traumatic fracture Fracture Risk Assessment Score (FRAX) indicating greater than 20% risk for major osteoporosis-related fracture Fracture Risk Assessment Score (FRAX) indicating greater than 3% risk for hip fracture History of lung transplant (HCC) Lung replaced by transplant [facility] Other osteoporosis without current pathological fracture- Primary Current use of steroid medication History of recurrent vertebral fractures Personal history of traumatic fracture Fracture Risk Assessment Score (FRAX) indicating greater than 20% risk for major osteoporosis-related fracture Fracture Risk Assessment Score (FRAX) indicating greater than 3% risk for hip fracture History of lung transplant (HCC) Lung replaced by transplant [facility] Diagnosis Other osteoporosis without current pathological fracture- Primary Current use of steroid medication History of recurrent vertebral fractures Personal history of traumatic fracture Fracture Risk Assessment Score (FRAX) indicating greater than 20% risk for major osteoporosis-related fracture Fracture Risk Assessment Score (FRAX) indicating greater than 3% risk for hip fracture History of lung transplant (HCC) Lung replaced by transplant [facility] Diagnosis Chronic right shoulder pain- Primary Pain in joint, shoulder region [facility] Diagnosis Chronic right shoulder pain- Primary Pain in joint, shoulder region [facility] Diagnosis Chronic right shoulder pain- Primary Pain in joint, shoulder region [facility]* Diagnosis Chronic right shoulder pain- Primary Pain in joint, shoulder region [facility] Diagnosis Chronic right shoulder pain- Primary Pain in joint, shoulder region [facility] Diagnosis S/P lung transplant Lung replaced by transplant Immunosuppressed status Unspecified disorder of immune mechanism [facility] Diagnosis S/P lung transplant Lung replaced by transplant Encounter for aftercare following lung transplant Aftercare following organ transplant Acute right ankle pain [facility] Diagnosis S/P lung transplant Lung replaced by transplant Encounter for aftercare following lung transplant Aftercare following organ transplant Pain of left hip [facility] Diagnosis S/P lung transplant Lung replaced by transplant Immunosuppressed status Unspecified disorder of immune mechanism [facility] Diagnosis S/P lung transplant- Primary Lung replaced by transplant Abnormal blood chemistry Other abnormal blood chemistry Encounter for aftercare following lung transplant Aftercare following organ transplant Pain of left hip Acute right ankle pain S/P lung transplant Lung replaced by transplant Encounter for aftercare following lung transplant Aftercare following organ transplant Pain of left hip S/P lung transplant Lung replaced by transplant Encounter for aftercare following lung transplant Aftercare following organ transplant Acute right ankle pain [facility] Diagnosis Right shoulder pain, unspecified chronicity- Primary [facility] Diagnosis S/P lung transplant- Primary Lung replaced by transplant Abnormal blood chemistry Other abnormal blood chemistry Encounter for aftercare following lung transplant Aftercare following organ transplant Pain of left hip Acute right ankle pain S/P lung transplant Lung replaced by transplant Encounter for aftercare following lung transplant Aftercare following organ transplant Pain of left hip S/P lung transplant Lung replaced by transplant Encounter for aftercare following lung transplant Aftercare following organ transplant Acute right ankle pain [facility] Diagnostic Procedure Only (Routine) - Pending Review Specialty Diagnoses / Procedures Referred By Sadi cutler Referred To Contact XR IMAGING Diagnoses Right shoulder pain, unspecified chronicity Procedures XR SHOULDER 3V AP/Y VIEW/AXILLARY RIGHT (AK) RADEX SHOULDER COMPLETE MINIMUM 2 VIEWS Kermit Ivy MD [address] [place] [address] [place] [id number] Referral ID Status Reason Start Date Expiration Date Visits Requested Visits Authorized [id number] Pending Review Auto-Generat ed Referral 03/20/2024 04/19/2025 1 1 [facility] Advance Directives No Advanced Directives Records FoundDocuments on File Type Date Recorded Patient Weight Caller Expl anation Advance Directives and Living Will Power of Utility Worker [employer] Documents on File Type Date Recorded Patient Weight Caller Expl anation ACP-Advance Directive ACP-Power of Utility Worker [employer] Documents on File Type Date Recorded Patient Weight Caller Expl anation ACP-Advance Directive ACP-Power of Utility Worker [employer] Latest Code Status on File Code Status Date Activated Date Inactivated Comments Full Code 12/12/2018 1:03 AM Healthcare Agents on File Name Relationship Healthcare Agent Relationshi p Communication Sulma Hernández Spouse Health Care Agent Latest Code Status on File Code Status Date Activated Date Inactivated Comments Full Code 12/12/2018 1:03 AM Healthcare Agents on File Name Relationship Healthcare Agent Relationshi p Communication Sulma Hernández Spouse Health Care Agent Healthcare Agents on File Name Relationship Healthcare Agent Relationshi p Communication Sulma Hernández Spouse Health Care Agent Healthcare Agents on File Name Relationship Healthcare Agent Relationshi p Communication Sulma Hernández Spouse Health Care Agent Latest Code Status on File Code Status Date Activated Date Inactivated Comments Full Code 12/12/2018 1:03 AM Healthcare Agents on File Name Relationship Healthcare Agent Relationshi p Communication Sulma Hernández Spouse Health Care Agent Latest Code Status on File Code Status Date Activated Date Inactivated Comments Full Code 12/12/2018 1:03 AM Healthcare Agents on File Name Relationship Healthcare Agent Relationshi p Communication Sulma Hernández Spouse Health Care Agent Healthcare Agents on File Name Relationship Healthcare Agent Relationshi p Communication Sulma Hernández Spouse Health Care Agent Latest Code Status on File Code Status Date Activated Date Inactivated Comments Full Code 05/16/2023 7:01 PM Code Status History Code Status Date Activated Date Inactivated Comments Full Code 12/12/2018 1:03 AM 05/16/2023 7:01 PM Healthcare Agents on File Name Relationship Healthcare Agent Relationshi p Communication Sulma Hernández Spouse Health Care Agent Latest Code Status on File Code Status Date Activated Date Inactivated Comments Full Code 05/15/2023 10:12 PM 05/16/2023 8:27 PM Latest Code Status on File Code Status Date Activated Date Inactivated Comments Full Code 05/16/2023 7:01 PM Code Status History Code Status Date Activated Date Inactivated Comments Full Code 12/12/2018 1:03 AM 05/16/2023 7:01 PM Healthcare Agents on File Name Relationship Healthcare Agent Relationshi p Communication Sulma Hernández Spouse Health Care Agent Healthcare Agents on File Name Relationship Healthcare Agent Relationshi p Communication Sulma Hernández Spouse Health Care Agent Healthcare Agents on File Name Relationship Healthcare Agent Relationshi p Communication Sulma Hernández Spouse Health Care Agent Latest Code Status on File Code Status Date Activated Date Inactivated Comments Full Code 05/15/2023 10:12 PM 05/16/2023 8:27 PM Date Activated Date Inactivated Comments 05/15/2023 10:12 PM 05/16/2023 8:27 PM Date Activated Date Inactivated Comments 05/16/2023 7:01 PM Date Activated Date Inactivated Comments 12/12/2018 1:03 AM 05/16/2023 7:01 PM Healthcare Agents on File Name Relationship Healthcare Agent Relationshi p Communication Sulma Hernández Spouse Health Care Agent Date Activated Date Inactivated Comments 05/16/2023 7:01 PM Date Activated Date Inactivated Comments 12/12/2018 1:03 AM 05/16/2023 7:01 PM Healthcare Agents on File Name Ade Healthcare Agent Heidi rhodes Communication Sulma Mitchell Health Care Agent Healthcare Agents on File Name Ade Healthcare Jimbo rhodes Communication Sulma Mitchell Health Care Agent Healthcare Agents on File Name [facility] Healthcare Jimbo rhodes Communication Sulma Mitchell Health Care Agent Date Activated Date Inactivated Comments 05/15/2023 10:12 PM 05/16/2023 8:27 PM Healthcare Agents on File Name Ade rhodes Communication Sulma Mitchell Health Care Agent Discharge Instructions * Instructions* Tracey Maradiaga, SHERRY - 08/13/2019 Please bring your [facility] Surgical Information folder on the day of surgery. Please nain the last dose taken (date and time ) on your Daily Medications List provided in your After Visit Summary. Please bring a photo ID and insurance information Do NOT take the following medications on the morning of surgery: Aspirin, Vitamins, Januvia TAKE the following medications the morning of your surgery: Azithromax, Diltiazem, Neurontin, Cellcept, Protonix, Prednisone, Tacrolimus You may take your prescription pain medications. You may take Tylenol (Acetaminophen) if needed forpain. No Motrin, Ibuprofen, or Advil 24 hours prior to surgery, or longer if instructed by your surgeon. No Aleve or Naprosyn 3 days prior to surgery, or longer if instructed by your surgeon. If you are on BLOOD THINNERS or ASPIRIN Additional instructions: NONE You will receive a reminder call the day before surgery with your Same Day Surgery arrival time. If you have specific questions, please call your surgeon. * Attachments The following attachments cannot be sent through Care Everywhere. * Laser Lithotripsy: Pre-op (Citizen Of [place]) documented in this encounter* Instructions* Lino Foote MD - 12/16/2020 Extracorporeal Shock Wave Lithotripsy (ESWL) These are general instructions for you to follow after your surgery. Your doctor or a member of hisor her staff will outline any additional or special instructions that pertain to you. What is an ESWL? A ESWL is a procedure that uses sound waves from outside the body to break up stones in the kidney.The patient is placed on a special table and x-ray is used to focus waterborne shock waves through a localized area of the body onto the kidney stones. The stones are broken up into small pieces, which can then pass through urination. Some patient may require a ureteral stent after the procedure. Occasionally, the patient may require a second procedure to remove small stone fragments from the ureter. The success of an ESWL depends on the size and location of the stone, and also the hardness of the stone. The patient s height and weight should also be considered before performing this surgery. How long does surgery take? Surgery will take 1-2 hours to complete. Will I have to stay in the hospital? No. This is an outpatient procedure, so you should be able to go home the same day that the procedure is performed. Are there risks with an ESWL procedure? There are risks with any surgical procedure. Risks of ESWL in particular include infection, bleeding, and difficulty urinating. Steinstrasse can occur when several stones fragments line up in the ureter and block the flow of urine. General anesthesia also hasthe risk of breathing problems, heart attack and stroke in patients who are high risk. Before Surgery: - A packet of information will be sent to you. It contains helpful information, details about how to prepare for surgery, and where to arrive on the day of surgery. Maps and local hotel information are sent to persons from out of town. If you have questions or have not received this information, please call our office at . - All patients having surgery will need a physical completed to clear them medically for surgery. Pre-operative testing is completed approx. 1-2 weeks before your planned surgery. These tests will bedone either at your pre- operative day at [facility], or with your regular doctor. - Some patients may require additional testing such as a stress test or cardiac clearance. - At the time of your pre-operative visit the following tests may be completed: Blood work, an EKG,and/ or a Chest X-ray - The day before your surgery you will need to call the surgical scheduling office to confirm your arrival time. - Do NOT eat or drink anything after midnight the night before your surgery. Medications: - Your information packet will contain a list of medications that need to be stopped before surgery. - Do not take Aspirin, Motrin or Ibuprofen for 2 weeks before surgery. - Stop taking all herbal remedies 2 weeks before your surgery. - Please make certain that we know if you take medication that affected bleeding or is a blood thinner. Examples of these include Coumadin, Warfarin or Plavix. A safe plan will need to be made about how and when you take this medication near the time of your surgery. The Day of Surgery - Please report to the designated area at your confirmed arrival time. - Before you are taken to the operating room, you will change into a gown and have an IV started. - An anesthesiologist will come speak with you about the surgery and answer any questions that you may have. - Your family may stay with you in the pre-op area until you are taken to the operating room. Home Going Instructions: Activity: You are encouraged to walk every day, increasing the distance each day. You may go up anddown steps, but please rest when you are tired. - Do NOT drive for 2-3 weeks after surgery or until you are not taking pain medications. You may ride in a car or plane. Be sure to get up and walk every 1- 2 hours when traveling long distances. - Avoid strenuous activity for 2-4 weeks after surgery (running, jumping, lifting more than 10 lbs.) Diet and Fluid Intake: Eating a well balanced diet is important. If you were on a specific diet before your surgery, you should return to that diet. Otherwise, there are no diet restrictions after surgery. - Do NOT drink alcoholic beverages while taking pain medications. - Drink at least 8 glasses of fluid per day, preferably water. Bowel Management: Constipation sometimes occurs after surgery, especially when taking pain medication. Eating a well-balanced diet and maintaining a good fluid intake are often all that is necessary to return to you pre-surgical bowel regimen. - It is important not to strain excessively when having a bowel movement for the first several weeks following your surgery. A stool softener such as Colace may be helpful. You can purchase stool softeners without a prescription at your local drug store. - If a stool softener is not enough to relieve your constipation, you may try taking Milk of Magnesia. - You may use over the counter medicine, such a Gas-X, if you experience gas pains after surgery. Ureteral Stent: Most people experience some discomfort with a stent in place. Common symptoms include back pain, urinary frequency and urgency. You may see some blood off and on in your urine, especially after you are active. While these symptoms are common with a stent, if you are having a lot of pain, please call our office to discuss your symptoms. Showering: You may shower when you get home from the hospital. Please avoid swimming, hot tubs and baths for 2-3 weeks after your procedure. Pain Medications: Your doctor will prescribe the appropriate pain medication for you. Take these pills only as directed and only if you need them. If you are experiencing mild discomfort, you may take Tylenol or Ibuprofen. - NEVER mix alcohol with prescription pain medications. - Pain medication may make you drowsy. Do not take pain medication when doing any activity that requires coordination, such as driving. Infection: Report the following warning signs of infection to your doctor immediately: o A temperature of 101 degrees or greater o Unable to urinate. o Sudden onset of increased pain or tenderness o Increased amount of blood in the urine, or passing large blood clots Miscellaneous - It is normal for you to have minor discomfort after your surgery. However, if there are any significant changes in your condition such as shortness of breath, difficulty breathing, or pain or uneven swelling in your legs please go to the Emergency Room. Return to Work: If you work in an office and are not lifting or doing strenuous activity, you may return to work when comfortable. If your work involves strenuous activity, you may need more time before returning to work. - If necessary, our office can provide a letter stating the date that you may return to work. Follow-up Appointments - If you have a drain or chapin left in after you go home, you will have a follow-up appointment with Roxanna Pfeiffer PA-C approx. 1 week after your surgery for drain and/ or staple removal. Follow-up appointments will be scheduled by our office. If you have any questions, please call . documented in this encounter* Instructions* Rodney Garnett MD - 08/14/2019 Cystoscopy: What to Expect at Home Your Recovery A cystoscopy is a procedure that lets a doctor look inside of the bladder and the urethra. The urethra is the tube that carries urine from the bladder to outside the body. The doctor uses a thin, lighted tool called a cystoscope. Your bladder is filled with fluid. This stretches the bladder so thatyour doctor can look closely at the inside of your bladder. After the cystoscopy, your urethra may be sore at first, and it may burn when you urinate for the first few days after the procedure. You may feel the need to urinate more often, and your urine may be pink. These symptoms should get better in 1 or 2 days. You will probably be able to go back to most of your usual activities in 1 or 2 days. This care sheet gives you a general idea about how long it will take for you to recover. But each person recovers at a different pace. Follow the steps below to get better as quickly as possible. How can you care for yourself at home? Activity Rest when you feel tired. Getting enough sleep will help you recover. Try to walk each day. Start by walking a little more than you did the day before. Bit by bit, increase the amount you walk. Walking boosts blood flow and helps prevent pneumonia and constipation. Avoid strenuous activities, such as bicycle riding, jogging, weight lifting, or aerobic exercise, until your doctor says it is okay. Ask your doctor when you can drive again. Most people are able to return to work within 1 or 2 days after the procedure. You may shower and take baths as usual. Ask your doctor when it is okay for you to have sex. Diet You can eat your normal diet. If your stomach is upset, try bland, low-fat foods like plain rice, broiled chicken, toast, and yogurt. Drink plenty of fluids (unless your doctor tells you not to). Medicines Take pain medicines exactly as directed. ? If the doctor gave you a prescription medicine for pain, take it as prescribed. ? If you are not taking a prescription pain medicine, ask your doctor if you can take an nwxm-ska-ntstswe medicine. If you think your pain medicine is making you sick to your stomach: ? Take your medicine after meals (unless your doctor has told you not to). ? Ask your doctor for a different pain medicine. If your doctor prescribed antibiotics, take them as directed. Do not stop taking them just because you feel better. You need to take the full course of antibiotics. Follow-up care is a zuniga part of your treatment and safety. Be sure to make and go to all appointments, and call your doctor if you are having problems. It's also a good idea to know your test resultsand keep a list of the medicines you take. When should you call for help? Call 911 anytime you think you may need emergency care. For example, call if: You passed out (lost consciousness). You have severe trouble breathing. You have sudden chest pain and shortness of breath, or you cough up blood. You have severe belly pain. Call your doctor now or seek immediate medical care if: You are sick to your stomach or cannot keep fluids down. Your urine is still red or you see blood clots after you have urinated several times. You have trouble passing urine or stool, especially if you have pain or swelling in your lower belly. You have signs of a blood clot, such as: ? Pain in your calf, back of the knee, thigh, or groin. ? Redness and swelling in your leg or groin. You develop a fever or severe chills. You have pain in your back just below your rib cage. This is called flank pain. Watch closely for changes in your health, and be sure to contact your doctor if: You have pain or burning when you urinate. A burning feeling is normal for a day or two after the test, but call if it does not get better. You have a frequent urge to urinate but can pass only small amounts of urine. Your urine is pink, red, or cloudy, or smells bad. It is normal for the urine to have a pinkish color for a few days after the test, but call if it does not get better. Where can you learn more? Go to [email or web address] and sign in to your [employer] account. Enter C842 in the Search Health Information box to learn more about Cystoscopy: What to Expect at Home. If you do not have an account, please click on the Sign Up Now link. Current as of: October 04, 2018 Content Version: [id number] [employer]. Care instructions adapted under license by [employer]. If youhave questions about a medical condition or this instruction, always ask your healthcare professional. [employer] disclaims any warranty or liability for your use of this information. documented in this encounter History of Present Illness * Bettye Curtis RN - 12/16/2020 5:31 PM EST Discharge information given to the patient. Patient and family verbalized understanding of information. All questions were answered before discharge. Patient ambulated, voided, denies dizziness or nausea. Tolerating PO fluids and crackers. Vital signs are stable. Patient has changed and is being discharged home in a wheelchair with valuables. documented in this encounter* Sonal Crawford RN - 08/14/2019 4:28 PM EDT Dr. Orourke to bedside to see pt. Pt given incentive spirometer and instructed in use. * Sonal Crawford RN - 08/14/2019 4:09 PM EDT COMMUNITY LIAISON to bedside, states pt had emesis upon extubation, calling Dr. Orourke to see if he wants cxr. Pt had additional emesis of clear mucous on arrival. Medicated with zofran. * Maddy Read RN - 08/14/2019 12:21 PM EDT Stop sign: No orders * Kylah Lester RN - 08/13/2019 11:40 AM EDT Left voice message with Dr. Simmons's master scheduler regarding needing surgery orders entered prior to surgery scheduled tomorrow 08/14/19. documented in this encounter Assessments Diagnosis Renal calculus, left- Primary Calculus of kidney Diagnosis Post-op pain- Primary Other acute postoperative pain Reason for Referral Status Reason Specialty Diagnoses / Procedures Referre d By Contact Referred To Contact Closed Cardiology Diagnoses 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 Angina pectoris (HCC) Procedures ECHO Exercise Stress Test IlerNain MD [address] [facility]. [address] [place] [address] Specialty Diagnoses / Procedures Referred By Contlexa t Referred To Contact Diagnoses S/P lung transplant Immunosuppressed status Procedures PFT STANDARD Nick Lopez MD [address] [place] [phone] Referral ID Status Reason Start Date Expiration Date V isits Requested Visits Authorized [id number] New Request 11/03/2021 11/28/2022 1 1 Specialty Diagnoses / Procedures Referred By Contlexa t Referred To Contact Diagnoses S/P lung transplant Immunosuppressed status Nick Lopez MD [address] [place] [phone] Referral ID Status Reason Start Date Expiration Date V isits Requested Visits Authorized [id number] New Request 05/03/2022 05/28/2023 1 1 Specialty Diagnoses / Procedures Referred By Contac t Referred To Contact Diagnoses S/P lung transplant Encounter for aftercare following lung transplant Immunosuppressed status Screening for malignant neoplasm of respiratory organ 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 WALK Nick Lopez MD [address] [place] [phone] Referral ID Status Reason Start Date Expiration Date V isits Requested Visits Authorized [id number] New Request 05/03/2022 05/28/2023 1 1 Specialty Diagnoses / Procedures Referred By Contac t Referred To Contact Diagnoses S/P lung transplant Encounter for aftercare following lung transplant Immunosuppressed status Procedures PFT STANDARD Nick Lopez MD [address] [place] [address] Referral ID Status Reason Start Date Expiration Date V isits Requested Visits Authorized [id number] New Request 05/03/2022 05/28/2023 1 1 Specialty Diagnoses / Procedures Referred By Contac t Referred To Contact Diagnoses Lung transplant recipient (HCC) Procedures Tomasz Wilkerson MD [address] [place] [address] Referral ID Status Reason Start Date Expiration Date V isits Requested Visits Authorized [id number] Incomplete 12/14/2022 06/12/2023 1 1 Referral ID Status Reason Start Date Expiration Date V isits Requested Visits Authorized [id number] Incomplete 12/14/2022 06/12/2023 1 1 Referral ID Status Reason Start Date Expiration Date V isits Requested Visits Authorized [id number] Incomplete 12/14/2022 06/12/2023 1 1 Referral ID Status Reason Start Date Expiration Date V isits Requested Visits Authorized [id number] Incomplete 12/14/2022 06/12/2023 1 1 Specialty Diagnoses / Procedures Referred By Contac t Referred To Contact Diagnoses Behavioral change Procedures MRI BRAIN WITH AND WITHOUT CONTRAST CT MRI BRAIN COMBO Gabriel Barragan MB/CARLOZ [address] [place] [address] Referral ID Status Reason Start Date Expiration Date V isits Requested Visits Authorized [id number] New Request 05/21/2023 06/14/2024 1 1 Specialty Diagnoses / Procedures Referred By Contac t Referred To Contact Psychiatry Diagnoses Behavioral change Gabriel Barragan MB/CARLOZ [address] [place] [phone] Referral ID Status Reason Start Date Expiration Date V isits Requested Visits Authorized [id number] New Request 05/21/2023 06/14/2024 1 1 Specialty Diagnoses / Procedures Referred By Contac t Referred To Contact Procedures ECG Colleen Richardson MD [address] [place] [address] [place] [address] Referral ID Status Reason Start Date Expiration Date V isits Requested Visits Authorized [id number] Pending Review 05/16/2023 06/09/2024 1 1 Specialty Diagnoses / Procedures Referred By Contac t Referred To Contact [address] [place] [address] Referral ID Status Reason Start Date Expiration Date Visits Re quested Visits Authorized Specialty Diagnoses / Procedures Referred By Contac t Referred To Contact Procedures PLATELET MONITORING PER PROTOCOL Colleen Richardson MD [address] [place] [phone] Referral ID Status Reason Start Date Expiration Date V isits Requested Visits Authorized [id number] Pending Review 05/16/2023 06/09/2024 1 1 Specialty Diagnoses / Procedures Referred By Contac t Referred To Contact Procedures DVT/VTE RISK ASSESSMENT Colleen Richardson MD [address] [place] [phone] Referral ID Status Reason Start Date Expiration Date V isits Requested Visits Authorized [id number] Pending Review 05/16/2023 06/09/2024 1 1 Referral ID Status Reason Start Date Expiration Date V isits Requested Visits Authorized [id number] Pending Review 05/16/2023 06/09/2024 1 1 Specialty Diagnoses / Procedures Referred By Contac t Referred To Contact Diagnoses Lung transplant status (HCC) Immunodeficiency, unspecified (HCC) Procedures Spirometry Tomasz Troncoso MD [address] [place] [address] Referral ID Status Reason Start Date Expiration Date V isits Requested Visits Authorized [id number] Incomplete 05/26/2023 11/22/2023 1 1 Referral ID Status Reason Start Date Expiration Date V isits Requested Visits Authorized [id number] Incomplete 05/26/2023 11/22/2023 1 1 Referral ID Status Reason Start Date Expiration Date V isits Requested Visits Authorized [id number] Incomplete 05/26/2023 11/22/2023 1 1 Specialty Diagnoses / Procedures Referred By Contac t Referred To Contact Radiology Diagnoses Pain in right arm Radiculopathy, cervical region Encephalopathy, unspecified Other symptoms and signs involving cognitive functions and awareness Procedures MR brain w and wo contrast Liana Loja A [address] [place] [address] Referral ID Status Reason Start Date Expiration Date Visits Re quested Visits Authorized [id number] Closed 07/22/2023 01/18/2024 1 1 Specialty Diagnoses / Procedures Referred By Contac t Referred To Contact Radiology Diagnoses Pain in right arm Radiculopathy, cervical region Encephalopathy, unspecified Other symptoms and signs involving cognitive functions and awareness Procedures MR cervical spine wo contrast Liana Loja A [address] [place] [address] Referral ID Status Reason Start Date Expiration Date Visits Re quested Visits Authorized [id number] Closed 07/22/2023 01/18/2024 1 1 Referral ID Status Reason Start Date Expiration Date V isits Requested Visits Authorized [id number] Incomplete 05/26/2023 11/22/2023 1 1 Referral ID Status Reason Start Date Expiration Date V isits Requested Visits Authorized [id number] Incomplete 05/26/2023 11/22/2023 1 1 Specialty Diagnoses / Procedures Referred By Contac t Referred To Contact Radiology Diagnoses Primary generalized (osteo)arthritis Procedures MR shoulder right wo IV contrast [phone] [place] [address] Referral ID Status Reason Start Date Expiration Date Visits Re quested Visits Authorized [id number] Closed 11/01/2023 10/31/2024 1 1 Referral ID Status Reason Start Date Expiration Date Visits Re quested Visits Authorized [id number] Closed 05/26/2023 11/22/2023 1 1 Specialty Diagnoses / Procedures Referred By Contac t Referred To Contact Diagnoses Lung transplant status (HCC) Procedures Complete PFT study Tomasz Troncoso MD [address] [place] [address] Referral ID Status Reason Start Date Expiration Date V isits Requested Visits Authorized [id number] Pending Review 12/14/2023 12/08/2024 1 1 Specialty Diagnoses / Procedures Referred By Contac t Referred To Contact Diagnoses Lung transplant status (HCC) Immunodeficiency, unspecified (HCC) Procedures Complete PFT study Tomasz Troncoso MD [address] [place] [address] Referral ID Status Reason Start Date Expiration Date V isits Requested Visits Authorized [id number] Pending Review 12/14/2023 12/08/2024 1 1 Referral ID Status Reason Start Date Expiration Date V isits Requested Visits Authorized [id number] Pending Review 12/14/2023 12/08/2024 1 1 Referral ID Status Reason Start Date Expiration Date V isits Requested Visits Authorized [id number] Pending Review 12/14/2023 12/08/2024 1 1 Specialty Diagnoses / Procedures Referred By Contac t Referred To Contact Diagnoses S/P lung transplant Immunosuppressed status Procedures PFT STANDARD Tomasz Troncoso MD [address] [place] [address] Referral ID Status Reason Start Date Expiration Date V isits Requested Visits Authorized [id number] New Request 11/04/2023 11/28/2024 1 1 Summary Purpose Family History No Family History Records FoundNo Family History Records FoundNo Family History Records FoundNo Family History Records FoundNo Family History Records FoundNo Family History Records Found Additional Source Comments Ordered Prescriptions (unrec ognized section and content) Prescription Sig Dispensed Refills Start Date End Da te HYDROcodone-acetaminophe n (NORCO) 5-325 MG per tabletIndications:Renal calculus, left Take 1 tablet by mouth every 6 hours as needed for Pain for up to 3 days. Intended supply: 3 days. Take lowest dose possible to manage pain 8 tablet 0 12/16/2020 12/19/2020 Prescription Sig Dispensed Refills Start Date End Da te HYDROcodone-acetaminophe n (NORCO) 5-325 MG per tabletIndications:Sprain of left wrist, initial encounter Take 1 tablet by mouth every 6 hours as needed for Pain for up to 3 days. Intended supply: 3 days. Take lowest dose possible to manage pain 12 tablet 0 09/01/2021 09/04/2021 Prescription Sig Dispensed Refills Start Date End Da oxyCODONE-acetaminophen (PERCOCET) 5-325 MG per tabletIndications:Closed displaced fracture of neck of fifth metacarpal bone of left hand, initial encounter Take 1 tablet by mouth every 6 hours as needed for Pain for up to 3 days. Intended supply: 3 days. Take lowest dose possible to manage pain 12 tablet 0 03/29/2022 04/01/2022 Care Teams (unrecognized sec tion and content) Anesthesiologists' Assistant Relationship Specialty Start Date End Date Liana Loja [address] [place] [address] PCP - General 05/10/19 Anesthesiologists' Assistant Relationship Specialty Start Date End Date Liana Loja [address] [place], [place] [id number] PCP - General 05/10/19 Anesthesiologists' Assistant Relationship Specialty Start Date End Date Liana Loja [address] [place] [address] PCP - General 05/10/19 Anesthesiologists' Assistant Relationship Specialty Start Date End Date Liana Loja [address] [place] [address] PCP - General 05/10/19 Anesthesiologists' Assistant Relationship Specialty Start Date End Date Liana Loja [address] [place] [address] PCP - General 05/10/19 Anesthesiologists' Assistant Relationship Specialty Start Date End Date Liana Loja [address] [place] [address] PCP - General 05/10/19 Anesthesiologists' Assistant Relationship Specialty Start Date End Date Liana Loja DO [address] [place] [address] PCP - General Family Medicine 12/11/18 Lala Ruvalcaba, residential door installerSupervisor Filter Assembly Transplant 12/11/18 Comfort Arndt, residential door installerSupervisor Filter Assembly Transplant 01/10/19 Julia Hamilton, PARUL [address] [place] [address] Physician Railroad Brakeman 01/16/19 James Reyna MD, PhD, MPH Cardiac Surgery 01/16/19 Anesthesiologists' Assistant Relationship Specialty Start Date End Date Liana Loja [address] [place] [address] PCP - General 05/10/19 Anesthesiologists' Assistant Relationship Specialty Start Date End Date Liana Loja [address] [place] [address] PCP - General 05/10/19 Anesthesiologists' Assistant Relationship Specialty Start Date End Date Liana Loja DO [address] [place] [phone] PCP - General Family Medicine 12/11/18 Lala Ruvalcaba, residential door installerSupervisor Filter Assembly Transplant 12/11/18 Comfort Arndt RN Supervisor Filter [employer] Transplant 01/10/19 Julia Hamilton, PAJhony [address] [place] [address] Physician Railroad Brakeman 01/16/19 James Reyna MD, PhD, MPH Cardiac Surgery 01/16/19 Anesthesiologists' Assistant Relationship Specialty Start Date End Date Liana Loja DO [address] [place] [address] PCP - General Family Medicine 12/11/18 Lala Ruvalcaba, residential door installerSupervisor Filter Assembly Transplant 12/11/18 Comfort Arndt RN Supervisor Filter [employer] Transplant 01/10/19 Julia Hamilton, PARUL [address] [place] [address] Physician Railroad Brakeman 01/16/19 James Reyna MD, PhD, MPH Cardiac Surgery 01/16/19 Anesthesiologists' Assistant Relationship Specialty Start Date End Date Liana Loja DO [address] [place] [phone] PCP - General Family Medicine 12/11/18 Lala Ruvalcaba, residential door installerSupervisor Filter Assembly Transplant 12/11/18 Comfort Arndt, residential door installerSupervisor Filter Assembly Transplant 01/10/19 Julia Hamilton, PAJhony [address] [place] [address] Physician Railroad Brakeman 01/16/19 James Reyna MD, PhD, MPH Cardiac Surgery 01/16/19 Anesthesiologists' Assistant Relationship Specialty Start Date End Date Liana Loja [address] [place] [address] PCP - General 05/10/19 Anesthesiologists' Assistant Relationship Specialty Start Date End Date Liana Loja [address] [place] [address] PCP - General 05/10/19 Anesthesiologists' Assistant Relationship Specialty Start Date End Date Liana Loja DO [address] [place] [phone] PCP - General Family Medicine 12/11/18 Lala Ruvalcaba, residential door installerSupervisor Filter Assembly Transplant 12/11/18 Comfort Arndt, residential door installerSupervisor Filter Assembly Transplant 01/10/19 Julia Hamilton, PARUL [address] [place] [address] Physician Railroad Brakeman 01/16/19 James Reyna MD, PhD, MPH Cardiac Surgery 01/16/19 Anesthesiologists' Assistant Relationship Specialty Start Date End Date Liana Loja DO [address] [place] [address] PCP - General Family Medicine 12/11/18 Lala Ruvalcaba, residential door installerSupervisor Filter Assembly Transplant 12/11/18 Comfort Arndt, residential door installerSupervisor Filter Assembly Transplant 01/10/19 Julia Hamilton PA-C [address] [place] [address] Physician Railroad Brakeman 01/16/19 James Reyna MD, PhD, MPH Cardiac Surgery 01/16/19 Anesthesiologists' Assistant Relationship Specialty Start Date End Date Liana Loja DO [address] [place] [address] PCP - General Family Medicine 12/11/18 Lala Ruvalcaba, residential door installerSupervisor Filter Assembly Transplant 12/11/18 Comfort Arndt, residential door installerSupervisor Filter Assembly Transplant 01/10/19 Julia Hamilton PA-C [address] [place] [address] Physician Railroad Brakeman 01/16/19 James Reyna MD, PhD, MPH Cardiac Surgery 01/16/19 Anesthesiologists' Assistant Relationship Specialty Start Date End Date Liana Loja [address] [place], [place] [id number] PCP - General 05/10/19 Anesthesiologists' Assistant Relationship Specialty Start Date End Date Liana Loja [address] [place] [address] PCP - General 05/10/19 Anesthesiologists' Assistant Relationship Specialty Start Date End Date Liana Loja [address] [place], [place] [id number] PCP - General 05/10/19 Anesthesiologists' Assistant Relationship Specialty Start Date End Date Liana Loja [address] [place], [place] [id number] PCP - General 05/10/19 Anesthesiologists' Assistant Relationship Specialty Start Date End Date Freedom Liana Rober [address] [place], [place] [address] PCP - General 05/10/19 Anesthesiologists' Assistant Relationship Specialty Start Date End Date Liana Loja DO [address] [place] [phone] PCP - General Family Medicine 12/11/18 Lala Ruvalcaba, residential door installerSupervisor Filter Assembly Transplant 12/11/18 Comfort Arndt, residential door installerSupervisor Filter Assembly Transplant 01/10/19 Julia Hamilton, PAC [address] [place] [address] Physician Railroad Brakeman 01/16/19 James Reyna MD, PhD, MPH [address] [place] [address] Cardiac Surgery 01/16/19 Anesthesiologists' Assistant Relationship Specialty Start Date End Date Liana Loja [address] [place], [place] [address] PCP - General 05/10/19 Anesthesiologists' Assistant Relationship Specialty Start Date End Date Liana Loja DO [address] [place] [phone] PCP - General Family Medicine 12/11/18 Lala Ruvalcaba, residential door installerSupervisor Filter Assembly Transplant 12/11/18 Comfort Arndt, residential door installerSupervisor Filter Assembly Transplant 01/10/19 Julia Hamilton, PAC [address] [place] [address] Physician Railroad Brakeman 01/16/19 James Reyna MD, PhD, MPH [address] [place] [address] Cardiac Surgery 01/16/19 Anesthesiologists' Assistant Relationship Specialty Start Date End Date Liana Loja DO [address] [facility] [place] [address] PCP - General Family Medicine 12/11/18 Lala Ruvalcaba, residential door installerSupervisor Filter Assembly Transplant 12/11/18 Comfort Arndt, residential door installerSupervisor Filter Assembly Transplant 01/10/19 Julia Hamilton, PAC [address] [place] [address] Physician Railroad Brakeman 01/16/19 James Reyna MD, PhD, MPH [address] [place] [address] Cardiac Surgery 01/16/19 Anesthesiologists' Assistant Relationship Specialty Start Date End Date Liana Loja [address] [place], [place] [id number] PCP - General 05/10/19 Anesthesiologists' Assistant Relationship Specialty Start Date End Date Liana Loja [address] [place], [place] [id number] PCP - General 05/10/19 Anesthesiologists' Assistant Relationship Specialty Start Date End Date Liana Loja [address] [place], [place] [id number] PCP - General 05/10/19 Anesthesiologists' Assistant Relationship Specialty Start Date End Date Liana Loja [address] [place], [place] [id number] PCP - General 05/10/19 Anesthesiologists' Assistant Relationship Specialty Start Date End Date Liana Loja [address] [place], [place] [id number] PCP - General 05/10/19 Anesthesiologists' Assistant Relationship Specialty Start Date End Date Liana Loja [address] [place], [place] [address] PCP - General 05/10/19 Anesthesiologists' Assistant Relationship Specialty Start Date End Date Liana Loja [address] [place], [place] [id number] PCP - General 05/10/19 Anesthesiologists' Assistant Relationship Specialty Start Date End Date Liana Loja DO [address] [facility] [place] [phone] PCP - General Family Medicine 12/11/18 Lala Ruvalcaba, residential door installerSupervisor Filter Assembly Transplant 12/11/18 Comfort Arndt, residential door installerSupervisor Filter Assembly Transplant 01/10/19 Julia Hamilton PAC [address] [place] [address] Physician Railroad Brakeman 01/16/19 James Reyna MD, PhD, MPH [address] [place] [address] Cardiac Surgery 01/16/19 Anesthesiologists' Assistant Relationship Specialty Start Date End Date Liana Loja [address] [place], [place] [id number] PCP - General 05/10/19 Anesthesiologists' Assistant Relationship Specialty Start Date End Date Liana Loja [address] [place], [place] [id number] PCP - General 05/10/19 Anesthesiologists' Assistant Relationship Specialty Start Date End Date Liana Loja [address] [place], [place] [id number] PCP - General 05/10/19 Anesthesiologists' Assistant Relationship Specialty Start Date End Date Liana Loja DO PCP - General Family Medicine 04/21/16 Jerman Vitale MD Pulmonary Disease 04/21/16 Liana Loja DO Referring Family Medicine 05/21/16 Anesthesiologists' Assistant Relationship Specialty Start Date End Date Liana Loja [address] [place] [address] PCP - General 05/10/19 Anesthesiologists' Assistant Relationship Specialty Start Date End Date Liana Loja [address] [place] [address] PCP - General 05/10/19 Anesthesiologists' Assistant Relationship Specialty Start Date End Date Liana Loja [address] [place] [address] PCP - General 05/10/19 Anesthesiologists' Assistant Relationship Specialty Start Date End Date Liana Loja DO PCP - General Family Medicine 04/21/16 Jerman Vitale MD Pulmonary Disease 04/21/16 Liana Loja DO Referring Family Medicine 05/21/16 Anesthesiologists' Assistant Relationship Specialty Start Date End Date Liana Loja DO PCP - General Family Medicine 04/21/16 Jerman Vitale MD Pulmonary Disease 04/21/16 AdonisLiana soDO Referring Family Medicine 05/21/16 Anesthesiologists' Assistant Relationship Specialty Start Date End Date Liana Loja [address] [place] [address] PCP - General 05/10/19 Anesthesiologists' Assistant Relationship Specialty Start Date End Date Freedom Liana A, PCP - General Family Medicine 04/21/16 Jerman Vitale MD Pulmonary Disease 04/21/16 FreedomKayrober [address] Referring Family Medicine 05/21/16 Anesthesiologists' Assistant Relationship Specialty Start Date End Date FreedomLiana PCP - General Family Medicine 04/21/16 Jerman Vitale MD Pulmonary Disease 04/21/16 Liana LojaDO Referring Family Medicine 05/21/16 Anesthesiologists' Assistant Relationship Specialty Start Date End Date Liana Loja PCP - General Family Medicine 04/21/16 Jerman Vitale MD Pulmonary Disease 04/21/16 AdonissarayLiana DO Referring Family Medicine 05/21/16 Anesthesiologists' Assistant Relationship Specialty Start Date End Date Liana Loja DO [address] [place] [address] PCP - General Family Medicine 12/11/18 Lala Ruvalcaba, residential door installerSupervisor Filter Assembly Transplant 12/11/18 Comfort Arndt, residential door installerSupervisor Filter Assembly Transplant 01/10/19 Julia Hamilton, HALLIE-C [address] [place] [address] Physician Railroad Brakeman 01/16/19 James Reyna MD, PhD, MPH [address] [place] [address] Cardiac Surgery 01/16/19 Anesthesiologists' Assistant Relationship Specialty Start Date End Date Liana Loja DO [address] [place] [address] PCP - General Family Medicine 12/11/18 Lala Ruvalcaba, residential door installerSupervisor Filter Assembly Transplant 12/11/18 Comfort Arndt, residential door installerSupervisor Filter Assembly Transplant 01/10/19 Julia Hamilton, PARUL [address] [place] [address] Physician Railroad Brakeman 01/16/19 James Reyna MD, PhD, MPH [address] [place] [address] Cardiac Surgery 01/16/19 Anesthesiologists' Assistant Relationship Specialty Start Date End Date Liana Loja DO [address] [place] [address] PCP - General Family Medicine 12/11/18 Lala Ruvalcaba, residential door installerSupervisor Filter Assembly Transplant 12/11/18 Comfort Arndt, residential door installerSupervisor Filter Assembly Transplant 01/10/19 Julia Hamilton, PA-C [address] [place] [address] Physician Railroad Brakeman 01/16/19 James Reyna MD, PhD, MPH [address] [place] [address] Cardiac Surgery 01/16/19 Anesthesiologists' Assistant Relationship Specialty Start Date End Date Liana Loja DO [address] [facility] [place] [address] PCP - General Family Medicine 12/11/18 Lala Ruvalcaba, residential door installerSupervisor [employer] 12/11/18 Comfort Arndt, residential door installerSupervisor [employer] 01/10/19 Julia Hamilton, PA-C [address] [place] [address] Physician Railroad Brakeman 01/16/19 James Reyna MD, PhD, MPH [address] [place] [address] Cardiac Surgery 01/16/19 Anesthesiologists' Assistant Relationship Specialty Start Date End Date Liana Loja DO PCP - General Family Medicine 04/21/16 Jerman Vitale MD Pulmonary Disease 04/21/16 Liana Loja DO Referring Family Medicine 05/21/16 Anesthesiologists' Assistant Relationship Specialty Start Date End Date Liana Loja DO [address] [facility] [place] [address] PCP - General Family Medicine 12/11/18 Lala Ruvalcaba, residential door installerSupervisor [employer] Trans[employer] 12/11/18 Comfort Arndt, residential door installerSupervisor [employer] Transplant 01/10/19 Julia Hamilton, PA-C [address] [place] [address] Physician Railroad Brakeman 01/16/19 James Reyna MD, PhD, MPH [address] [place] [address] Cardiac Surgery 01/16/19 Reason for Visit (unrecogniz ed section and content) Reason Comments Physical Therapy Specialty Diagnoses / Procedures Referred By Contac t Referred To Contact Physical Therapy / PHYSICAL THERAPY Diagnoses right shoulder pain Procedures NEW RS PT ORTH Kermit Reagan MD [address] [facility] [address] [place] [address] Ar Garcia, PT 1 [place] [address] Referral ID Status Reason Start Date Expiration Date V isits Requested Visits Authorized [id number] Authorized 03/29/2024 10/16/2024 20 20 Reason Comments Wrist Pain left Reason Comments COVID-19 MAB infusion Specialty Diagnoses / Procedures Referred By Contac t Referred To Contact Internal Medicine Diagnoses COVID-19 Kermit Prater MD [address] [facility] [address] [place] [address] Infusion [address] [facility] [address] [place] [address] Referral ID Status Reason Start Date Expiration Date V isits Requested Visits Authorized [id number] New Request 02/21/2022 03/18/2023 1 1 Reason Comments Laceration Pt tripped over tree root. Has left eyelid laceration that is deep, Positive LOC, left forearm road rash, left hand swelling. Pt has a bad JOEL. Pt on ASA but no others thinners. Heart lung transplant pt. Pt had eye surgery March 19 and now vision is blurry on the surgical eye. Pt A & O X 3 but dizzy, nauseaus, with a pounding JOEL. Specialty Diagnoses / Procedures Referred By Sadi cutler Referred To Contact Diagnoses S/P lung transplant Immunosuppressed status Procedures PFT STANDARD Nick Lopez MD [address] [place] [address] Referral ID Status Reason Start Date Expiration Date V isits Requested Visits Authorized [id number] New Request 11/03/2021 11/28/2022 1 1 Reason Comments S/p Lung Transplant Reason Comments Other Evusheld administrat ion Specialty Diagnoses / Procedures Referred By Sadi cutler Referred To Contact Infectious Diseases Diagnoses At increased risk of exposure to COVID-19 virus Chantale Linares MD [address] [place] [address] Referral ID Status Reason Start Date Expiration Date V isits Requested Visits Authorized [id number] New Request 05/04/2022 05/29/2023 1 1 Reason Comments Lung Recipient Follow-up Specialty Diagnoses / Procedures Referred By Sadi cutler Referred To Contact Diagnoses S/P lung transplant Encounter for aftercare following lung transplant Immunosuppressed status Screening for malignant neoplasm of respiratory organ 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 WALK Nick Lopez MD [address] [place] [phone] Referral ID Status Reason Start Date Expiration Date V isits Requested Visits Authorized [id number] New Request 05/03/2022 05/28/2023 1 1 Specialty Diagnoses / Procedures Referred By Contac t Referred To Contact Diagnoses S/P lung transplant Encounter for aftercare following lung transplant Immunosuppressed status Procedures PFT STANDARD Nick Lopez MD [address] [place] [phone] Referral ID Status Reason Start Date Expiration Date V isits Requested Visits Authorized [id number] New Request 05/03/2022 05/28/2023 1 1 Specialty Diagnoses / Procedures Referred By Contac t Referred To Contact Diagnoses Lung transplant recipient (HCC) Procedures Tomasz Wilkerson MD [address] [place] [phone] Referral ID Status Reason Start Date Expiration Date V isits Requested Visits Authorized [id number] Incomplete 12/14/2022 06/12/2023 1 1 Referral ID Status Reason Start Date Expiration Date V isits Requested Visits Authorized [id number] Incomplete 12/14/2022 06/12/2023 1 1 Referral ID Status Reason Start Date Expiration Date V isits Requested Visits Authorized [id number] Incomplete 12/14/2022 06/12/2023 1 1 Specialty Diagnoses / Procedures Referred By Contac t Referred To Contact Diagnoses Seizure (HCC) ISAIAS (acute kidney injury) (CMS/HCC) (HCC) Acute respiratory failure with hypoxia and hypercapnia (CMS/HCC) (HCC) Chest pain, unspecified type Procedures .. Kathleen Rodas, DO [address] [place] [address], [address] [place] [address] [facility] [address] [place] [phone] Referral ID Status Reason Start Date Expiration Date Visits Re quested Visits Authorized [id number] 1 1 Specialty Diagnoses / Procedures Referred By Contac t Referred To Contact Diagnoses AMS/ Bilateral lung transplant Devon Melgar MD [address] [place] [address] [facility] [address] [place] [address] Referral ID Status Reason Start Date Expiration Date Visits Re quested Visits Authorized [id number] 1 1 Specialty Diagnoses / Procedures Referred By Contac t Referred To Contact Diagnoses Lung transplant status (HCC) Immunodeficiency, unspecified (HCC) Procedures Spirometry Tomasz Troncoso MD [address] [place] [address] Referral ID Status Reason Start Date Expiration Date V isits Requested Visits Authorized [id number] Incomplete 05/26/2023 11/22/2023 1 1 Referral ID Status Reason Start Date Expiration Date V isits Requested Visits Authorized [id number] Incomplete 05/26/2023 11/22/2023 1 1 Referral ID Status Reason Start Date Expiration Date V isits Requested Visits Authorized [id number] Incomplete 05/26/2023 11/22/2023 1 1 Specialty Diagnoses / Procedures Referred By Contac t Referred To Contact Radiology Diagnoses Pain in right arm Radiculopathy, cervical region Encephalopathy, unspecified Other symptoms and signs involving cognitive functions and awareness Procedures MR brain w and wo contrast Malsaray, Liana A [address] [place] [place] [address] Referral ID Status Reason Start Date Expiration Date Visits Re quested Visits Authorized [id number] Closed 07/22/2023 01/18/2024 1 1 Specialty Diagnoses / Procedures Referred By Contac t Referred To Contact Radiology Diagnoses Pain in right arm Radiculopathy, cervical region Encephalopathy, unspecified Other symptoms and signs involving cognitive functions and awareness Procedures MR cervical spine wo contrast Malys, Liana A [address] [place] [address] Referral ID Status Reason Start Date Expiration Date Visits Re quested Visits Authorized [id number] Closed 07/22/2023 01/18/2024 1 1 Referral ID Status Reason Start Date Expiration Date V isits Requested Visits Authorized [id number] Incomplete 05/26/2023 11/22/2023 1 1 Specialty Diagnoses / Procedures Referred By Contac t Referred To Contact Radiology Diagnoses Primary generalized (osteo)arthritis Procedures MR shoulder right wo IV contrast [facility] [address] [place] [address] Referral ID Status Reason Start Date Expiration Date Visits Re quested Visits Authorized [id number] Closed 11/01/2023 10/31/2024 1 1 Reason Comments Follow-up Referral ID Status Reason Start Date Expiration Date Visits Re quested Visits Authorized [id number] Closed 05/26/2023 11/22/2023 1 1 Reason Onset Date Comments Appt needs rescheduled 12/15/2023 Needs to reschedule appt. Has covid. Specialty Diagnoses / Procedures Referred By Contac t Referred To Contact Diagnoses Lung transplant status (HCC) Procedures Complete PFT study Tomasz Troncoso MD [address] [place] [phone] Referral ID Status Reason Start Date Expiration Date V isits Requested Visits Authorized [id number] Pending Review 12/14/2023 12/08/2024 1 1 Specialty Diagnoses / Procedures Referred By Contac t Referred To Contact Diagnoses Lung transplant status (HCC) Immunodeficiency, unspecified (HCC) Procedures Complete PFT study Tomasz Troncoso MD [address] [place] [phone] Referral ID Status Reason Start Date Expiration Date V isits Requested Visits Authorized [id number] Pending Review 12/14/2023 12/08/2024 1 1 Referral ID Status Reason Start Date Expiration Date V isits Requested Visits Authorized [id number] Pending Review 12/14/2023 12/08/2024 1 1 Reason Comments New Pain Reason Comments Osteoporosis Specialty Diagnoses / Procedures Referred By Contac t Referred To Contact Osteoporosis Bone Health Diagnoses Age-related osteoporosis without current pathological fracture Procedures CT OFFICE/OUTPATIENT NEW LOW MDM 30 MINUTES Akbar Davis DO [address] [place] [address] Sb Osteo [address] [facility] [address] [place] [address] Referral ID Status Reason Start Date Expiration Date V isits Requested Visits Authorized [id number] Pending Review 11/18/2023 11/17/2024 1 1 Reason Comments PT Eval Referral ID Status Reason Start Date Expiration Date V isits Requested Visits Authorized [id number] Pending Review 12/14/2023 12/08/2024 1 1 Reason Onset Date Comments Returning call to [facility] 04/04/2024 Reason Comments Appointment Specialty Diagnoses / Procedures Referred By Sadi cutler Referred To Contact Diagnoses S/P lung transplant Immunosuppressed status Procedures PFT STANDARD Tomasz Troncoso MD [address] [place] [address] Referral ID Status Reason Start Date Expiration Date V isits Requested Visits Authorized [id number] New Request 11/04/2023 11/28/2024 1 1 Reason Comments Follow-up S/p Lung Transplant Specialty Diagnoses / Procedures Referred By Sadi cutler Referred To Contact Diagnoses Lung transplant status (HCC) Encounter for aftercare following lung transplant (HCC) Immunodeficiency, unspecified (HCC) Procedures Complete PFT study Tomasz Troncoso MD [address] [place] [address] Referral ID Status Reason Start Date Expiration Date V isits Requested Visits Authorized [id number] Pending Review 05/23/2024 05/18/2025 1 1 Reason Comments Established Patient Referral ID Status Reason Start Date Expiration Date V isits Requested Visits Authorized [id number] Pending Review 05/23/2024 05/18/2025 1 1 Referral ID Status Reason Start Date Expiration Date V isits Requested Visits Authorized [id number] Pending Review 05/23/2024 05/18/2025 1 1 Scheduled Active and Recently Administ ered Medications (unrecognized section and content) Medication Order 08/30/2021 08/31/2021 09/01/2021 acetaminophen (TYLENOL) tablet 1,000 mg (COMPLETED) 1,000 mg, Oral, ONCE, On Tue09/01/21 at 2015, For 1 dose, Maximum dose of acetaminophen is 4000 mg from all sources in 24 hours. 2033 (Given - Provid er: Kel Odonnell RN) Scheduled Medication Order 03/27/2022 03/28/2022 03/29/2022 bacitracin ointment (COMPLETED) Topical, ONCE, On Tue03/29/22 at 1715, For 1 dose, Apply to left eyebrow laceration. 173 (Given - Provid er: Stephanie Barnett RN - Comment: left eye brow) lidocaine 1 % injection 20 mL (COMPLETED) 20 mL, IntraDERmal, ONCE, 1 dose, On Tue03/29/22 at 1815 1830 (Given - Provid er: Stephanie Barnett RN) lidocaine-EPINEPHrine 1 %-[id number] injection 20 mL 20 mL, IntraDERmal, ONCE, 1 dose, On Tue03/29/22 at 1530 1530 (Due) mycophenolate (CELLCEPT) capsule 1,000 mg 1,000 mg, Oral, 2 TIMES DAILY, First dose on Tue03/29/22 at 2100, Until Discontinued, Do not crush or break. 2041 (Given - Provid er: Jane Barnett RN) oxyCODONE-acetaminophen (PERCOCET) 5-325 MG per tablet 1 tablet (COMPLETED) Mg/kg dosing is based on the oxycodone component., 1 tablet, Oral, ONCE, 1 dose, On Tue03/29/22 at 1630, Maximum dose of acetaminophen is 4000 mg from all sources in 24 hours. 1625 (Given - Provid er: Brandan Gill RN) oxyCODONE-acetaminophen (PERCOCET) 5-325 MG per tablet 1 tablet (COMPLETED) Mg/kg dosing is based on the oxycodone component., 1 tablet, Oral, ONCE, 1 dose, On Tue03/29/22 at 2100, Maximum dose of acetaminophen is 4000 mg from all sources in 24 hours. 2049 (Given - Provid er: Jane Banrett RN) oxyCODONE-acetaminophen (PERCOCET) 5-325 MG per tablet 1 tablet (COMPLETED) Mg/kg dosing is based on the oxycodone component., 1 tablet, Oral, ONCE, 1 dose, On Tue03/29/22 at 2230, Maximum dose of acetaminophen is 4000 mg from all sources in 24 hours. 2255 (Given - Provid er: Almita Reis RN) tacrolimus (PROGRAF) capsule 1 mg 1 mg, Oral, 2 TIMES DAILY, First dose on Tue03/29/22 at 2100, Until Discontinued 2040 (Given - Provid er: Jane Barnett RN) Scheduled Medication Order 05/14/2023 05/15/2023 05/16/2023 Acetaminophen (Tylenol) 650 MG/20.3ML solution 1,000 mg(Linked Group 1) 1,000 mg, Per G Tube, Every 8 hours, First dose on 05/15/23 at 2215 2215 (Not Given - Provider: MARKO LOVETT - Reason: Other - Comment: OG not verified) 0615 (See Alternative - Provider: MARKO LOVETT)1415 (See Alternative - Provider: Adam Salazar, SHERRY) acetaminophen (Tylenol) tablet 1,000 mg(Linked Group 1) 1,000 mg, Oral, Every 8 hours, First dose on 05/15/23 at 2215, Maximum dose of acetaminophen is 4000 mg from all sources in 24 hours. 2215 (See Alternative - Provider: MARKO LOVETT) 0615 (Not Given - Provider: MARKO LOVETT - Reason: Other - Comment: OG tube is not verified)1415 (Not Given - Provider: Adam Salazar RN - Reason: Patient not available) acyclovir (Zovirax) 950 mg in sodium chloride 0.9 % 150 mL IVPB 950 mg (rounded from 943 mg = 10 mg/kg 94.3 kg), IntraVENous, at 150 mL/hr, Administer over 60 Minutes, Every 8 hours, First dose on 05/15/23 at 204, Suspected Indication (Select all that apply): Central Nervous System Infection 2044 (New Bag - Provider: MARKO LOVETT)214 (Stopped - Provider: MARKO LOVETT) 0445 (New Bag - Provider: MARKO LOVETT)0545 (Stopped - Provider: MARKO LOVETT)1235 (New Bag - Provider: Adam Salazar, SHERRY)1335 (Stopped - Provider: Adam Salazar, SHERRY) azithromycin (Zithromax) tablet 250 mg 250 mg, Oral, 3 times weekly (Once per day on Tue), First dose on Tue05/16/23 at 0900, To be given on Tuesday, Tuesday, Tuesday, Suspected Indication (Select all that apply): Immunocomp Host Prophylaxis 0958 (Given - Provid er: Adam Salazar RN) chlorhexidine (Peridex) 0.12 % solution 15 mL 15 mL, Mouth/Throat, 2 times daily, First dose on Tue05/15/23 at 210, Combine with scheduled oral cares by swabbing oral cavity and teeth with chlorhexidine four times daily. 2104 (Given - Provider: MARKO LOVETT) 0932 (Given - Provider: Adam Salazar, SHERRY) enoxaparin (Lovenox) syringe 40 mg 40 mg, SubCUTAneous, Every 24 hours scheduled (Daily), First dose on Tue05/16/23 at 0900, Indication of Use: Prophylaxis-DVT/PE, Indications: Prophylaxis of Venous Thromboembolism 0932 (Given - Provid er: Adam Salazar RN) etomidate (Amidate) injection 20 mg (COMPLETED) 20 mg, IntraVENous, Once, On Tue05/15/23 at 1930, For 1 dose, General Anesthetic - do not give without appropriate ventilation support. 1910 (Given - Provider: Eileen Bustamante RN) fentaNYL (Sublimaze) injection 50 mcg (COMPLETED) 50 mcg, IntraVENous, Once, On Tue05/15/23 at 1910, For 1 dose, If oral and IV narcotics ordered, use oral first and only use IV if oral is ineffective or cannot take oral. Do Not give oral and IV within 1 hour of each other unless specifically ordered. 1907 (Given - Provider: Eileen Bustamante RN) gabapentin (Neurontin) capsule 200 mg 200 mg, Oral, Daily, First dose on Tue05/16/23 at 0600 0600 (Not Given - Provider: MARKO LOVETT - Reason: Other - Comment: OG tube is not verified) levETIRAcetam (Keppra) 1,000 mg in sodium chloride 0.9 % 100 mL IVPB 1,000 mg, IntraVENous, at 400 mL/hr, Administer over 15 Minutes, 2 times daily, First dose on Tue05/16/23 at 0900 0958 (New Bag - Provider: Adam Salazar, SHERRY)1013 (Stopped - Provider: Adam Salazar, SHERRY) levETIRAcetam (Keppra) 4,500 mg in sodium chloride 0.9 % 100 mL IVPB (COMPLETED) 4,500 mg, IntraVENous, at 400 mL/hr, Administer over 15 Minutes, Once, On Tue05/15/23 at 2015, For 1 dose 2014 (New Bag - Provider: MARKO LOVETT)2030 (Stopped - Provider: MARKO LOVETT) meropenem (Merrem) 2,000 mg in sodium chloride 0.9 % 100 mL IVPB (CANCELED) 2,000 mg, IntraVENous, at 33.3 mL/hr, Administer over 3 Hours, Every 8 hours, First dose on Tue05/15/23 at 2155, For 24 hours, Dosage or interval has been adjusted per [facility] Renal Dosing policy., Suspected Indication (Select all that apply): Central Nervous System Infection 2154 (New Bag - Provider: MARKO LOVETT) 0055 (Stopped - Provider: MARKO LOVETT)1030 (New Bag - Provider: Adam Salazar, SHERRY)1330 (Stopped - Provider: Adam Salazar, SHERRY) meropenem (Merrem) 2,000 mg in sodium chloride 0.9 % 100 mL IVPB 2,000 mg, IntraVENous, at 33.3 mL/hr, Administer over 180 Minutes, Every 8 hours, First dose on Tue05/16/23 at 1830, Meropenem Med-Surg/Crit Care Init Dosing BUTCH 8, Founder President And Ceo cl >=50, 3h, Suspected Indication (Select all that apply): Central Nervous System Infection, Sepsis of Unknown Etiology 1829 (Canceled Entry - Provider: Automatic Discharge Provider - Comment: Automatically canceled at discontinue of medication order) midazolam (Versed) injection 4 mg (COMPLETED) 4 mg, IntraVENous, Once, On Tue05/15/23 at 1915, For 1 dose 1912 (Given - Provider: Eileen Bustamante RN) midazolam (Versed) injection 4 mg (COMPLETED) 4 mg, IntraVENous, Once, On Tue05/15/23 at 2004, For 1 dose 2004 (Given - Provider: Lamar Bustamante RN)2009 (Not Given - Provider: MARKO LOVETT - Reason: Other - Comment: Ordered prior to admission and the patient is on a versed gtt) mycophenolate (Cellcept) capsule 1,000 mg 1,000 mg, Oral, 2 times daily, First dose on Tue05/15/23 at 2215 2212 (Held by provider - Provider: Antoinette Rodriguez RN - Reason: Other)2215 (Dose Auto Held) 0900 (Dose Auto Held)2026 (Unheld by provider - Provider: Automatic Discharge Provider) pantoprazole (ProtoNix) injection 40 mg 40 mg, IntraVENous, Administer over 2 Minutes, Every morning, First dose on Tue05/16/23 at 0900, Give if unable to take by mouth or feeding tube. Reconstitute 40 mg vial with 10 ml NS. Vial expires 2 hrs after reconstitution. 0932 (Given - Provid er: Adam Salazar RN) piperacillin-tazobactam (Zosyn) IVPB 4,500 mg (COMPLETED) 4,500 mg, IntraVENous, at 200 mL/hr, Administer over 0.5 Hours, Once, On Tue05/15/23 at 2014, For 1 dose, premix bag, Suspected Indication (Select all that apply): Sepsis of Unknown Etiology, Pneumonia (CAP) 2055 (New Bag - Provider: Lamar Bustamante RN)2125 (Stopped - Provider: Antoinette Rodriguez RN) predniSONE (Deltasone) tablet 5 mg 5 mg, Oral, Daily, First dose on Tue05/16/23 at 0900 2212 (Held by provider - Provider: Antoinette Rodriguez RN - Reason: Other)2257 (Unheld by provider - Provider: Derek Cordova DO) 1044 (Given - Provider: Adam Salazar, SHERRY) propofol (Diprivan) infusion (COMPLETED) 5-50 mcg/kg/min 94.3 kg (2.829-28.29 mL/hr, rounded to 2.83-28.29 mL/hr), IntraVENous, Once, On Tue05/15/23 at 2015, For 1 dose, If Titrate Infusion? is No : Disregard instructions below. If Titrate infusion? is Yes : Titrate in increments of 5 mcg/kg/min no more frequently than every 5 minutes to goal of therapy. If after titration rate change patient exhibits adverse hemodynamic response, next titration rate change may be adjusted by one-half of the previous rate change. If patient fails sedation interruption, resume propofol infusion at 50% of previous rate. General Anesthetic - do not give without appropriate ventilation support. Do not administer propofol in same IV catheter as blood or plasma. Discard any unused portion of propofol vials and tubing after 12 hours. , Titrate Infusion? Yes, Initial Infusion Dose: 30 mcg/kg/min, Goal of Therapy: RASS of -1 to 0, Contact Provider if: New onset SBP less than 90 mmHg 2014 (New Bag - Provider: Lamar Bustamante RN) Propofol (Diprivan) injection (COMPLETED) 30 mcg/kg/min 94.3 kg Order-specific weight (16.974 mL/hr, rounded to 16.97 mL/hr), IntraVENous, Once, On 05/15/23 at 1925, For 1 dose, If Titrate Infusion? is No : Disregard instructions below. If Titrate infusion? is Yes : Titrate in increments of 5 mcg/kg/min no more frequently than every 5 minutes to goal of therapy. If after titration rate change patient exhibits adverse hemodynamic response, next titration rate change may be adjusted by one-half of the previous rate change. If patient fails sedation interruption, resume propofol infusion at 50% of previous rate. General Anesthetic - do not give without appropriate ventilation support., Titrate Infusion? Yes, Initial Infusion Dose: 30 mcg/kg/min, Goal of Therapy: RASS of -1 to 0, Contact Provider if: New onset HR less than 50 bpm 1923 (Given - Provider: Eileen Bustamante, SHERRY) rocuronium (ZeMuron) injection 100 mg (COMPLETED) 100 mg, IntraVENous, Once, On Tue05/15/23 at 1930, For 1 dose, PARALYTIC - do not give without appropriate mechanical ventilation, sedation, and analgesia. Prior to extubation, flush line or change tubing (to prevent residual medication being later flushed into a non-intubated patient). 1910 (Given - Provider: Eileen Bustamante RN) sodium chloride 0.9 % bolus 1,000 mL (COMPLETED) 1,000 mL, IntraVENous, at 1,000 mL/hr, Administer over 1 Hours, Once, On Tue05/15/23 at 2044, For 1 dose 2044 (New Bag - Provider: MARKO LOVETT)2144 (Stopped - Provider: MARKO LOVETT) sodium chloride 0.9% (NS) flush 5-40 mL 5-40 mL, IntraCATHeter, Every 8 hours, First dose on Tue05/16/23 at 0145, For Line Patency: Peripheral IV = 5 mL; Midline or Central Line = 10 mL/lumen. If following IV push medication, administer flush at same rate as the IV push. Flush volume is determined by type of infusion therapy being given. For non-viscous solutions use: Peripheral IV = 5 mL Midline or Central Line = 10 mL/lumen For viscous solutions (i.e. blood components, parenteral nutrition, contrast media, or after obtaining blood sample) use: Peripheral IV = 10 mL Midline or Central Line = 20 mL/lumen 0145 (Given - Provid er: MARKO LOVETT)0959 (Given - Provider: Adam Salazar, SHERRY)1745 (Canceled Entry - Provider: Automatic Discharge Provider - Comment: Automatically canceled at discontinue of medication order) sulfamethoxazole-trimethopr im (Bactrim DS) 800-160 MG per tablet 1 tablet 1 tablet, Oral, 2 times daily, First dose on 05/15/23 at 2215, Suspected Indication (Select all that apply): Immunocomp Host Prophylaxis 2214 (Not Given - Provider: MARKO LOVETT - Reason: Other - Comment: OG not verified) 0958 (Given - Provider: Adam Salazar, SHERRY) tacrolimus (Prograf) capsule 0.5 mg 0.5 mg, Oral, 2 times daily, First dose on Tue05/15/23 at 2215 2212 (Held by provider - Provider: Antoinette Rodriguez RN - Reason: Other)2214 (Dose Auto Held) 09 (Dose Auto Held)2026 (Unheld by provider - Provider: Automatic Discharge Provider) vancomycin (Vancocin) 2000 mg in 0.9% sodium chloride 500 mL IVPB (compounded premix) (COMPLETED) 2,000 mg (rounded from 1,886 mg = 20 mg/kg 94.3 kg), IntraVENous, at 250 mL/hr, Administer over 120 Minutes, Once, On 05/15/23 at 2014, For 1 dose, Suspected Indication (Select all that apply): Pneumonia (CAP), Sepsis of Unknown Etiology 2014 (New Bag - Provider: Avila Conn, SHERRY)221 (Stopped - Provider: MARKO LOVETT) Continuous Medication Order 05/14/2023 05/15/2023 05/16/2023 fentaNYL (Sublimaze) 1000 mcg in sodium chloride 0.9 % 100 mL 10 mcg/mL infusion (CANCELED) 25-200 mcg/hr (2.5-20 mL/hr), IntraVENous, Continuous, Starting on 05/15/23 at 2014, If Titrate Infusion? is No : Disregard instructions below. If Titrate infusion? is Yes : Titrate in increments of 25 mcg/hr no more frequently than every 30 minutes to goal of therapy. If after titration dose change patient exhibits adverse hemodynamic response, next titration dose change may be adjusted by one-half of the previous dose change. If patient fails sedation interruption, resume infusion at 50% of previous dose., Titrate Infusion? Yes, Initial Infusion Dose: 50 mcg/hr, Goal of Therapy is: CPOT <3, Contact Provider if: Patient is receiving the maximum dose and is not achieving the goal of therapy 2037 (New Bag - Provider: Lamar Bustamante, SHERRY)2216 (Rate/Dose Change - Provider: Antoinette Rodriguez RN) 0015 (Rate/Dose Change - Provider: MARKO LOVETT)0100 (Rate/Dose Change - Provider: MARKO LOVETT)0200 (Rate/Dose Change - Provider: MARKO LOVETT)0251 (Rate/Dose Change - Provider: MARKO LOVETT)0549 (Stopped - Provider: MARKO LOVETT) midazolam (Versed) 50 mg/50mL infusion (CANCELED) 1-10 mg/hr (1-10 mL/hr), IntraVENous, Continuous, Starting on 05/15/23 at 2039, If Titrate Infusion? is No : Disregard instructions below. If Titrate infusion? is Yes : Titrate in increments of 1 mg/hr no more frequently than every 30 minutes to goal of therapy. If patient fails sedation interruption, resume infusion at 50% of previous dose. premix bag, Titrate Infusion? Yes, Initial Infusion Dose: 2 mg/hr, Goal of Therapy is: RASS of -1 to 0, Contact Provider if: New onset SBP less than 90 mmHg, Patient is receiving the maximum dose and is not achieving the goal of therapy 2039 (New Bag - Provider: Lamar Bustamante RN)2104 (New Bag - Provider: Lamar Bustamante RN - Comment: per dr chan at bedside)2208 (Rate/Dose Verify - Provider: MARKO LOVETT) 0045 (New Bag - Provider: MARKO LOVETT - Comment: Scanner broken verified withCarlyn RN)0525 (New Bag - Provider: Antoinette Rodriguez, SHERRY)0932 (New Bag - Provider: Adam Salazar, SHERRY)0934 (Rate/Dose Change - Provider: Adam Salazar, SHERRY)1014 (Stopped - Provider: Adam Salazar RN - Comment: per verbal order via Dr. Taylor) propofol (Diprivan) infusion 5-50 mcg/kg/min 94.8 kg (2.844-28.44 mL/hr, rounded to 2.84-28.44 mL/hr), IntraVENous, Continuous, Starting on Tue05/15/23 at 2230, If Titrate Infusion? is No : Disregard instructions below. If Titrate infusion? is Yes : Titrate in increments of 5 mcg/kg/min no more frequently than every 5 minutes to goal of therapy. If after titration rate change patient exhibits adverse hemodynamic response, next titration rate change may be adjusted by one-half of the previous rate change. If patient fails sedation interruption, resume propofol infusion at 50% of previous rate. 2nd line General Anesthetic - do not give without appropriate ventilation support. Do not administer propofol in same IV catheter as blood or plasma. Discard any unused portion of propofol vials and tubing after 12 hours. , Titrate Infusion? Yes, Initial Infusion Dose: 10 mcg/kg/min, Goal of Therapy: RASS of -1 to 0, Contact Provider if: New onset HR less than 50 bpm 2208 (New Bag - Provider: MARKO LOVETT) 0102 (Rate/Dose Verify - Provider: MARKO LVOETT)0250 (New Bag - Provider: MARKO LOVETT)0658 (Rate/Dose Verify - Provider: MARKO LOVETT)0729 (New Bag - Provider: MARKO LOVETT)1253 (New Bag - Provider: Adam Salazar, RN)1254 (Rate/Dose Change - Provider: Adam Salazar, RN)1655 (New Bag - Provider: Adam Salazar, RN) PRN Medication Order 05/14/2023 05/15/2023 05/16/2023 iopamidol (Isovue-370) 76 % injection 100 mL (COMPLETED) 100 mL, IntraVENous, IMG once PRN, contrast, Starting on 05/15/23 at 1925, For 1 dose 1926 (Given - Provider: ELIZABETH Lee) lidocaine PF (Xylocaine) 1 % injection (COMPLETED) As needed, Starting on Tue05/16/23 at 1603, Intraprocedure 1603 (Given - Provid er: Hany Dennison MD) ondansetron (Zofran) injection 4 mg(Linked Group 2) 4 mg, IntraVENous, Every 6 hours PRN, nausea, vomiting, Starting on Tue05/15/23 at 2212, 1st Line. Give IV if patient is unable to take orally. If inadequate response within 60 minutes, proceed to next-line agent or contact provider if no further options ordered. ondansetron ODT (Zofran-ODT) disintegrating tablet 4 mg(Linked Group 2) 4 mg, Oral, Every 8 hours PRN, nausea, vomiting, Starting on Tue05/15/23 at 2212, 1st Line. If inadequate response within 60 minutes, proceed to next-line agent or contact provider if no further options ordered. Patient should allow tablet to dissolve on tongue. Do not remove from blister pack until just before administering. polyethylene glycol (PEG) 3350 (Miralax) packet 17 g 17 g, Oral, Daily PRN, constipation, Starting on Tue05/15/23 at 2212, 1st line for treatment of constipation - give scheduled if no bowel movement in past 24 hours. sodium chloride 0.9% (NS) flush 5-40 mL 5-40 mL, IntraVENous, PRN, line care, before and after blood draws, infusion, or medication administration, Starting on Tue05/16/23 at 0129, For Line Patency: Peripheral IV = 5 mL; Midline or Central Line = 10 mL/lumen. If following IV push medication, administer flush at same rate as the IV push. Flush volume is determined by type of infusion therapy being given. For non-viscous solutions use: Peripheral IV = 5 mL Midline or Central Line = 10 mL/lumen For viscous solutions (i.e. blood components, parenteral nutrition, contrast media, or after obtaining blood sample) use: Peripheral IV = 10 mL Midline or Central Line = 20 mL/lumen Linked Groups Order Group 1: acetaminophen (Tylenol) tablet 1,000 mgJump to med 1,000 mg, Oral, Every 8 hours, First dose on 05/15/23 at 2215
Maximum dose of acetaminophen is 4000 mg from all sources in 24 hours.
Or Acetaminophen (Tylenol) 650 MG/20.3ML solution 1,000 mgJump to med 1,000 mg, Per G Tube, Every 8 hours, First dose on 05/15/23 at 2215 Group 2: ondansetron ODT (Zofran-ODT) disintegrating tablet 4 mgJump to med 4 mg, Oral, Every 8 hours PRN, nausea, vomiting, Starting on 05/15/23 at 2212
1st Line. If inadequate response within 60 minutes, proceed to next-line agent or contact provider if no further options ordered. Patient should allow tablet to dissolve on tongue. Do not remove from blister pack until just before administering.
Or ondansetron (Zofran) injection 4 mgJump to med 4 mg, IntraVENous, Every 6 hours PRN, nausea, vomiting, Starting on 05/15/23 at 2212
1st Line. Give IV if patient is unable to take orally. If inadequate response within 60 minutes, proceed to next-line agent or contact provider if no further options ordered.
Scheduled Medication Order 05/19/2023 05/20/2023 05/21/2023 amLODIPine (NORVASC) tablet 5 mg 5 mg, Oral, DAILY, First dose on 05/21/23 at 0900, Until Discontinued 0914 (Given - Provider: Harjinder Swanson RN) Azithromycin (ZITHROMAX) tablet 250 mg 250 mg, Oral, EVERY M, W & F, First dose on Tue05/17/23 at 0900, Until Discontinued 0818 (Given - Provider: Alice Corrigan RN) carveDILOL (COREG) tablet 12.5 mg (CANCELED) 12.5 mg, Oral, 2 TIMES DAILY, First dose on Tue05/18/23 at 1115, Until Discontinued 0844 (Given - Provider: Darlene Marlow RN)1724 (Given - Provider: Darlene Marlow RN) 0801 (Given - Provider: Alice Corrigan RN) carveDILOL (COREG) tablet 12.5 mg (COMPLETED) 12.5 mg, Oral, ONCE, 1 dose, On Tue05/20/23 at 1115, 1147 (Given - Provider: Alice Corrigan RN) carveDILOL (COREG) tablet 25 mg 25 mg, Oral, 2 TIMES DAILY, First dose (after last modification) on Tue05/20/23 at 1700, Until Discontinued 1631 (Given - Provider: Lula Rg RN) 0914 (Given - Provider: Harjinder Swanson RN)1700 (Due) Citalopram (CELEXA) tablet 10 mg 10 mg, Oral, DAILY, First dose on Tue05/21/23 at 0900, Until Discontinued 0915 (Given - Provider: Harjinder Swanson RN) Enoxaparin Sodium (LOVENOX) injection 40 mg 40 mg, Subcutaneous, EVERY 24 HOURS, First dose (after last modification) on Tue05/17/23 at 0900, Until Discontinued, , Indications: DVT/PE prophylaxis 0851 (Given - Provider: Darlene Marlow RN) 0801 (Given - Provider: Alice Corrigan RN) 0915 (Given - Provider: Harjinder Swanson RN) Gabapentin (NEURONTIN) capsule 400 mg 400 mg, Oral, 3 TIMES DAILY, First dose on Tue05/18/23 at 1400, Until Discontinued 0843 (Given - Provider: Darlene Marlow RN)1415 (Given - Provider: Darlene Marlow RN)2135 (Given - Provider: Waqar Clark RN) 0801 (Given - Provider: Alice Corrigan RN)1337 (Given - Provider: Lula Rg RN)2044 (Given - Provider: Frankie Green RN) 0915 (Given - Provider: Harjinder Swanson RN)1400 (Due)2100 (Due) Insulin lispro (HUMALOG) injection(Linked Group 1) Subcutaneous, 4 TIMES DAILY WITH MEALS & AT BEDTIME, First dose on Tue05/18/23 at 1200, Until Discontinued, Insulin to carb ratio: Standard: 1 unit insulin = 10 grams carbs every meal and at bedtime Correction Factor: 151-200 = 1 unit; 201-250 = 2 units; 251-300 = 3 units; 301-350 = 4 units; 351-400 = 5 units; Kwikpen: Prime pen before each injection; refer to Pen Priming and Care Handout for further details. Warning! Confirm patient. Insulin pen is for labeled individual patient use ONLY. 0853 (Not Given - Provider: Darlene Marlow RN - Reason: Order Parameters not met)1231 (Given - Provider: Darlene Marlow RN)1726 (Given - Provider: Darlene Marlow RN)2136 (Not Given - Provider: Waqar Clark RN - Reason: Order Parameters not met) 0734 (Not Given - Provider: Alice Corrigan RN - Reason: Order Parameters not met)1150 (Given - Provider: Alice Corrigan RN)1749 (Given - Provider: Lula Rg RN)2059 (Not Given - Provider: Frankie Green RN - Reason: Order Parameters not met) 0914 (Not Given - Provider: Harjinder Swanson RN - Reason: Order Parameters not met)1200 (Due)1700 (Due)2100 (Due) lidocaine 4 % patch 1 patch 1 patch, Transdermal, Administer over 12 Hours, EVERY 24 HOURS, First dose on Tue05/18/23 at 1145, Until Discontinued, Apply to back 0026 (Patch Removed - Provider: Yuliet Eric RN)1113 (Patch Applied - Provider: Darlene Marlow RN)2133 (Patch Removed - Provider: Waqar Clark RN - Comment: pt requested patch removal) 1147 (Patch Applied - Provider: Alice Corrigan RN - Comment: lower back) 0103 (Patch Removed - Provider: Frankie Green RN)1145 (Due) Melatonin tablet 3 mg 3 mg, Oral, DAILY AT BEDTIME, First dose on Tue05/20/23 at 2100, Until Discontinued 0103 (Given - Provider: Frankie Green RN)2100 (Due) Multi-Vitamins tablet 1 tablet 1 tablet, Oral, DAILY, First dose on Tue05/17/23 at 0900, Until Discontinued 0847 (Given - Provider: Darlene Marlow RN) 08 (Given - Provider: Alice Corrigan, SHERRY) 0914 (Given - Provider: Harjinder Swanson, SHERRY) Mycophenolate mofetil (CELLCEPT) capsule 1,000 mg 1,000 mg, Oral, EVERY 12 HOURS, First dose on Tue05/18/23 at 1500, Until Discontinued, Do not split, break, crush or open this medication. Contact pharmacy if altered route or dose is needed. 0844 (Given - Provider: Darlene Marlow RN)2135 (Given - Provider: Waqar Clark RN) 08 (Given - Provider: Alice Corrigan, SHERRY)2042 (Given - Provider: Frankie Green, SHERRY) 0915 (Given - Provider: Harjinder Swanson RN)2100 (Due) Pantoprazole (PROTONIX) tablet DR 40 mg 40 mg, Oral, 2 TIMES DAILY, First dose on Tue05/16/23 at 2100, Until Discontinued, Swallow whole; do not crush or chew., Indications: Continuation of Home Therapy 0844 (Given - Provider: Darlene Marlow RN)2134 (Given - Provider: Waqar Clark RN) 08 (Given - Provider: Alice Corrigan, SHERRY)2043 (Given - Provider: Frankie Green RN) 0914 (Given - Provider: Harjinder Swanosn RN)2100 (Due) Pneumococcal 23-valent (PNEUMOVAX) injection 0.5 mL 0.5 mL, Intramuscular, ONCE DURING ADMISSION, 1 dose, Starting on 05/21/23 at 0831, Until Discontinued, Administer into the deltoid muscle or lateral midthigh. prednisoLONE acetate (PRED FORTE) 1 % ophthalmic suspension 1 drop 1 drop, Right Eye, 2 TIMES DAILY, First dose on Tue05/20/23 at 1200, Until Discontinued, Shake well prior to use. 1631 (Given - Provider: Lula Rg RN - Comment: med just delivered to [facility])2043 (Given - Provider: Frankie Green RN - Comment: med just delivered to [facility] - dose rescheduled to spread timing apart) 0914 (Given - Provider: Harjinder Swanson RN)1700 (Due) predniSONE (DELTASONE) tablet 5 mg 5 mg, Oral, DAILY, First dose on Tue05/17/23 at 0900, Until Discontinued 0846 (Given - Provider: Darlene Marlow RN) 0801 (Given - Provider: Alice Corrigan, SHERRY) 0916 (Given - Provider: Harjinder Swanson RN) Sulfamethoxazole-trimet hoprim (BACTRIM DS) 800-160 MG per tablet 1 tablet 1 tablet, Oral, THREE TIMES WEEKLY (Once per day on Tue), First dose on Tue05/18/23 at 0900, Until Discontinued 0818 (Given - Provider: Alice Corrigan RN) Tacrolimus (PROGRAF) capsule 1 mg 1 mg, Oral, EVERY 12 HOURS, First dose on Tue05/18/23 at 2100, Until Discontinued, Do not split, break, crush, or open doses of this medication. Contact pharmacy if altered dose or route needed. Do not split, break, crush, or open doses of this medication. Contact pharmacy if altered dose or route needed. 0949 (Given - Provider: Darlene Marlow RN)2135 (Given - Provider: Waqar Clark RN) 1019 (Given - Provider: Alice Corrigan RN)2044 (Given - Provider: Frankie Green, SHERRY) 0914 (Given - Provider: Harjinder Swanson RN)2100 (Due) PRN Medication Order 05/19/2023 05/20/2023 05/21/2023 Acetaminophen (TYLENOL) tablet 650 mg 650 mg, Oral, EVERY 4 HOURS NEEDED, Starting on Tue05/18/23 at 1114, Until Discontinued, Mild Pain, Moderate Pain, Maximum dose of acetaminophen is 4000 mg from all sources in 24 hours. 0328 (Given - Provider: Yuliet Eric RN)1415 (Given - Provider: Darlene Marlow RN)1819 (Given - Provider: Darlene Marlow RN) 0759 (Given - Provider: Alice Corrigan RN)1337 (Given - Provider: Lula Rg RN)205 (Given - Provider: Frankie Green RN) 0113 (Given - Provider: Frankie Green RN) Dextrose 50% injection 7.5-25 g(Linked Group 1) 7.5-25 g, Intravenous, ADMINISTER DIRECTED, Starting on Tue05/18/23 at 1116, Until Discontinued, Blood glucose <80 mg/dL, For patients who are not alert, are NPO, or are on IV insulin infusion administer as directed per Hypoglycemia in Non- Adults Clinical Practice Guideline. For Blood Glucose: 60-79 mg/dL administer 7.5 gm (15ml); 45-59 mg/dL administer 12.5 gm (25ml); less than 45mg/dL administer 25gm (50ml). ++ If additional dextrose 50% needed, contact pharmacy or obtain from crash cart ++ glucose (GLUTOSE) 40 % oral gel 1-2 Tube(Linked Group 1) 1-2 Tube, Oral, ADMINISTER DIRECTED, Starting on Tue05/18/23 at 1116, Until Discontinued, Blood glucose <80 mg/dL, For patients who are alert, able to tolerate PO intake and with intact cognitive status administer as directed per Hypoglycemia in Non- Adults Clinical Practice Guideline. For Blood Glucose: 60-79 mg/dL administer 1 tube; 45-59 mg/dl administer 1.5 tubes; less than 45 mg/dL administer 2 tubes. Each tube of 37.5g delivers 15g of carbohydrate. hydrOXYzine HCl (ATARAX) tablet 25 mg 25 mg, Oral, 3 TIMES DAILY NEEDED, Starting on Jennifer 05/19/23 at 2041, Until Discontinued, Anxiety, Insomnia 2134 (Given - Provider: Waqar Clark RN) Insulin lispro (HUMALOG) injection(Linked Group 1) Subcutaneous, NEEDED, Starting on Tue05/18/23 at 1116, Until Discontinued, Other, As needed for snacks, Insulin to carb ratio: Standard: 1 unit insulin = 10 grams carbs Correction Factor: not to be used with this order. Kwikpen: Prime pen before each injection; refer to Pen Priming and Care Handout for further details. Warning! Confirm patient. Insulin pen is for labeled individual patient use ONLY. Magnesium sulfate 4 g in sterile water 50 ml premix IVPB 4 g, Intravenous, Administer over 4 Hours, ADMINISTER DIRECTED, Starting on 05/16/23 at 1845, Until Discontinued, Other, ICU Magnesium Replacement Parameters, Administer 4 grams once if magnesium level is less than or equal to 2.0 mg/dL. If replacing potassium also, replete magnesium prior to KCl administration. EXCLUDE less than 45 kg, SCr greater than or equal to 2 mg/dL, CrCl less than 30 ml/min, ESRD, and renal replacement therapy 0330 ($$New Bag$$ - Provider: Yuliet Eric RN)0526 (Paused - Provider: Yuliet Eric RN)0531 (Restarted - Provider: Yuliet Eric RN)0555 (Rate/Dose Verify - Provider: Yuliet Eric RN)0615 (Rate/Dose Verify - Provider: Yuliet Eric RN)0736 (Stopped - Provider: Darlene Marlow RN) Potassium Bicarb-Citric Acid (Effer-K) 20 MEQ effervescent tablets for oral solution 20 mEq(Linked Group 2) 20 mEq, Per NG tube, ADMINISTER DIRECTED, Starting on Tue05/16/23 at 1845, Until Discontinued, Other, ICU Potassium Replacement Parameters - See administration instructions, Administer 40 mEq if potassium level 3.6-3.9 mmol/L; administer 80 mEq if potassium level is less than or equal to 3.5 mmol/L. If replacing magnesium also, replete Mg prior to KCl administration. EXCLUDE less than 45 kg, SCr greater than or equal to 2 mg/dL, CrCl less than 30 ml/min, ESRD and renal replacement therapy. If patient receiving tube feeds, diet or is receiving other oral medications, enteral route preferred unless serum potassium is less than 3.0 mmol/L, then use IV formulation. If potassium level is less than or equal to 3.0 mmol/L, recheck potassium 4 hours after replacement. Do not swallow whole. Dissolve completely in 3-4 ounces of water or cold juice before drinking. If administering via J tube, dilute in sterile water, wait for tablet to stop fizzing, swirl the solution and draw into a syringe suitable for attaching to the tube. After administration, flush tube with 15-30 ml water. 0612 (See Alternative - Provider: Yuliet Eric RN)0613 (See Alternative - Provider: Yuliet Eric RN)0715 (See Alternative - Provider: Yuliet Eric RN) Potassium chloride (K-DUR) tablet ER 20 mEq(Linked Group 2) 20 mEq, Oral, ADMINISTER DIRECTED, Starting on Tue05/16/23 at 1845, Until Discontinued, See admin instructions, ICU Potassium Replacement Parameters, Swallow tablets whole; do not crush, chew, or suck on tablet. Tablet may also be broken in half and each half swallowed separately Administer 40 mEq if potassium level 3.6-3.9 mmol/L; administer 80 mEq if potassium level is less than or equal to 3.5 mmol/L If replacing magnesium also, replete Mg prior to KCl administration. EXCLUDE less than 45 kg, SCr greater than or equal to 2 mg/dL, CrCl less than 30 ml/min, ESRD, and renal replacement therapy. If patient receiving tube feeds, diet or is receiving other oral medications, enteral route preferred unless serum potassium is less than 3.0 mmol/L, then use IV formulation. If potassium level is less than or equal to 3.0 mmol/L, recheck potassium 4 hours after replacement. 0612 (Given - Provider: Yuliet Eric RN)0613 (Given - Provider: Yuliet Eric RN)0715 (Given - Provider: Yuliet Eric RN) Potassium chloride 10 mEq in sterile water 100 ml premix IVPB(Linked Group 2) 10 mEq, Intravenous, Administer over 60 Minutes, ADMINISTER DIRECTED, Starting on Tue05/16/23 at 1845, Until Discontinued, Other, ICU Potassium Replacement Parameters, FOR PERIPHERAL LINE: Administer 40 mEq if potassium level 3.6-3.9 mmol/L; administer 80 mEq if potassium level is less than or equal to 3.5 mmol/L. If replacing magnesium also, replete Mg prior to KCl administration. EXCLUDE less than 45 kg, SCr greater than or equal to 2 mg/dL, CrCl less than 30 ml/min, ESRD and renal replacement therapy. If patient receiving tube feeds, diet or is receiving other oral medications, enteral route preferred unless serum potassium is less than 3.0 mmol/L, then use IV formulation. If potassium level is less than or equal to 3.0 mmol/L, recheck potassium 4 hours after replacement. 0612 (See Alternative - Provider: Yuliet Eric RN)0613 (See Alternative - Provider: Yuliet Eric RN)0715 (See Alternative - Provider: Yuliet Eric RN) Potassium chloride 20 mEq in sterile water 50 ml premix IVPB(Linked Group 2) 20 mEq, Intravenous, Administer over 60 Minutes, ADMINISTER DIRECTED, Starting on Tue05/16/23 at 1845, Until Discontinued, Other, ICU Potassium Replacement parameters, FOR CENTRAL LINE: Administer 40 mEq if potassium level 3.6-3.9 mmol/L; administer 80 mEq if potassium level is less than or equal to 3.5 mmol/L. If replacing magnesium also, replete Mg prior to KCl administration. EXCLUDE less than 45 kg, SCr greater than or equal to 2 mg/dL, CrCl less than 30 ml/min, ESRD, and renal replacement therapy. If patient receiving tube feeds, diet or is receiving other oral medications, enteral route preferred unless serum potassium is less than 3.0 mmol/L, then use IV formulation. If potassium level is less than or equal to 3.0 mmol/L, recheck potassium 4 hours after replacement. Extravasation Risk. CENTRAL LINE required. Telemetry required. 0612 (See Alternative - Provider: Yuliet Eric RN)0613 (See Alternative - Provider: Yuliet Eric RN)0715 (See Alternative - Provider: Yuliet Eric RN) Sodium chloride 0.9% IV solution 250 mL Intravenous, at 20 mL/hr, NEEDED, Starting on Tue05/16/23 at 1845, Until Discontinued, Carrier Fluid - See Admin. Inst, 250mL 0.9NS to be used as carrier fluid for intermittent small volume or piggyback medication administration as needed. Infusion rate of the carrier fluid should be set at 20 mL/hr unless the rate as the intermittent medication is less than 20 mL/hr. For intermittent medications with a rate less than 20 mL/hr set the carrier fluid at that rate of the intermittent or piggy back medication. 0318 (Restarted - Provider: Yuliet Eric RN)0323 (Rate/Dose Verify - Provider: Yuliet Eric RN)0330 (Stopped - Provider: Yuliet Eric RN)0736 (Restarted - Provider: Darlene Marlow RN)0800 (Rate/Dose Verify - Provider: Darlene Marlow RN)1010 (Rate/Dose Verify - Provider: Darlene Marlow RN)1200 (Rate/Dose Verify - Provider: Darlene Marlow RN)1222 (Stopped - Provider: Waqar Clark RN) sodium phosphate 30 mmol in Sodium chloride 0.9%, with overfill 285 mL (total volume) IVPB(Linked Group 3) 30 mmol, Intravenous, Administer over 4 Hours, ADMINISTER DIRECTED, Starting on Tue05/16/23 at 1845, Until Discontinued, Other, ICU Phosphate Replacement Parameters, Administer 30 mmol if phosphate level is 2.1-2.6 mg/dl. EXCLUDE less than 45 kg, SCr greater than or equal to 2mg/dL, CrCl less than 30 ml/min, ESRD, renal replacement therapy, sodium greater than 150 mg/dL, ionized calcium less than 3.2 mg/dL, or Serum total Ca x serum Phos greater than 70 mg/dL. 0005 (Paused - Provider: Yuliet Eric RN)0017 (Restarted - Provider: Yuliet Eric RN)0100 (Rate/Dose Verify - Provider: Yuliet Eric RN)0252 (Rate/Dose Verify - Provider: Yuliet Eric RN)0315 (Rate/Dose Verify - Provider: Yuliet Eric RN)0318 (Stopped - Provider: Yuliet Eric RN) sodium phosphate 45 mmol in Sodium chloride 0.9%, with overfill 290 mL (total volume) IVPB(Linked Group 3) 45 mmol, Intravenous, Administer over 6 Hours, ADMINISTER DIRECTED, Starting on Tue05/16/23 at 1845, Until Discontinued, Other, ICU Phosphate Replacement Parameters, Administer 45 mmol if phosphate level is less than or equal to 2.0 mg/dl. EXCLUDE less than 45 kg, SCr greater than or equal to 2 mg/dL, CrCl less than 30 ml/min, ESRD, renal replacement therapy, sodium greater than 150 mg/dL, ionized calcium less than 3.2 mg/dL, or Serum total Ca x serum Phos greater than 70 mg/dL. Recheck phosphate 6 hours after replacement. 0005 (See Alternative - Provider: Yuliet Eric RN)0017 (See Alternative - Provider: Yuliet Eric RN)0100 (See Alternative - Provider: Yuliet Eric RN)0252 (See Alternative - Provider: Yuliet Eric RN)0315 (See Alternative - Provider: Yuliet Eric RN)0318 (See Alternative - Provider: Yuliet Eric RN) Linked Groups Order Group 1: Insulin lispro (HUMALOG) injectionJump to med Subcutaneous, 4 TIMES DAILY WITH MEALS & AT BEDTIME, First dose on Tue05/18/23 at 1200, Until Discontinued
Insulin to carb ratio: Standard: 1 unit insulin = 10 grams carbs every meal and at bedtime Correction Factor: 151-200 = 1 unit; 201-250 = 2 units; 251-300 = 3 units; 301-350 = 4 units; 351-400 = 5 units; Kwikpen: Prime pen before each injection; refer to Pen Priming and Care Handout for further details. Warning! Confirm patient. Insulin pen is for labeled individual patient use ONLY.
And Insulin lispro (HUMALOG) injectionJump to med Subcutaneous, NEEDED, Starting on Tue05/18/23 at 1116, Until Discontinued, Other, As needed for snacks
Insulin to carb ratio: Standard: 1 unit insulin = 10 grams carbs Correction Factor: not to be used with this order. Kwikpen: Prime pen before each injection; refer to Pen Priming and Care Handout for further details. Warning! Confirm patient. Insulin pen is for labeled individual patient use ONLY.
And BLOOD GLUCOSE (POC DEVICE) Routine, 4 TIMES DAILY BEFORE MEALS & AT BEDTIME, First occurrence on Tue05/18/23 at 1530
If any Blood Glucose (POC) is greater than 300mg/dl, then repeat Blood Glucose (POC) in 2 hours. If the initial blood glucose was greater than 300mg/dl and if second blood glucose is greater than 200md/dl, then notify Welder. And BLOOD GLUCOSE (POC DEVICE) Routine, DIRECTED, Starting on Tue05/18/23 at 1116, Until Specified
For all Blood Glucose LESS THAN 80 mg/dL, treat per Hypoglycemia in Non- Adults Clinical Practice Guideline (CPG) and recheck glucose 15 min after treatment. Repeat per CPG until glucose GREATER THAN 80 mg/dL. Once glucose IS GREATER THAN 80 mg/dL, recheck Blood Glucose every 1 hour x2, then resume as previously ordered. For Blood Glucose LESS THAN 80 mg/dL on admission OR LESS than 45 mg/dL at any time, obtain POC Blood Glucose every 4 hours for 6 occurrences AFTER treating per CPG. Obtain blood glucose for symptoms of hypoglycemia: sweating, shaking, fatigue, rapid pulse, slow thinking & dizziness. Notify physician w/results. Obtain blood glucose for symptoms of hyperglycemia: excessive thirst, blurred vision, excessive urination & tiredness. Notify physician w/results. If patient NPO, obtain POC Blood Glucose prior to administration of any insulin products. And COMMUNICATION ORDER FOR NURSING CARE: For Blood Glucose LESS THAN 80 mg/dl Routine, CONTINUOUS, Starting on Tue05/18/23 at 1117, Until Specified
For Blood Glucose LESS THAN 80 mg/dl follow Hypoglycemia in Non- Adults Clinical Practice Guideline (CPG) And Dextrose 50% injection 7.5-25 gJump to med 7.5-25 g, Intravenous, ADMINISTER DIRECTED, Starting on Tue05/18/23 at 1116, Until Discontinued, Blood glucose <80 mg/dL
For patients who are not alert, are NPO, or are on IV insulin infusion administer as directed per Hypoglycemia in Non- Adults Clinical Practice Guideline. For Blood Glucose: 60-79 mg/dL administer 7.5 gm (15ml); 45-59 mg/dL administer 12.5 gm (25ml); less than 45mg/dL administer 25gm (50ml). ++ If additional dextrose 50% needed, contact pharmacy or obtain from [facility] ++
And glucose (GLUTOSE) 40 % oral gel 1-2 TubeJump to med 1-2 Tube, Oral, ADMINISTER DIRECTED, Starting on Tue05/18/23 at 1116, Until Discontinued, Blood glucose <80 mg/dL
For patients who are alert, able to tolerate PO intake and with intact cognitive status administer as directed per Hypoglycemia in Non- Adults Clinical Practice Guideline. For Blood Glucose: 60-79 mg/dL administer 1 tube; 45-59 mg/dl administer 1.5 tubes; less than 45 mg/dL administer 2 tubes. Each tube of 37.5g delivers 15g of carbohydrate.
And NOTIFY PHYSICIAN, Blood Glucose LESS THAN 80 mg/dl Routine, CONTINUOUS, Starting on Tue05/18/23 at 1117, Until Specified
Who to Notify: Welder
For all Blood Glucose LESS THAN 80 mg/dl, notify Welder after treatment per Hypoglycemia in Non- Adults Clinical Practice Guideline And Carbohydrate counts with meals Routine, CONTINUOUS, Starting on Tue05/18/23 at 1117, Until Specified
Carbohydrate counts are to be done after each patient meal and with snack. Group 2: Potassium chloride 20 mEq in sterile water 50 ml premix IVPBJump to med 20 mEq, Intravenous, Administer over 60 Minutes, ADMINISTER DIRECTED, Starting on Tue05/16/23 at 1845, Until Discontinued, Other, ICU Potassium Replacement parameters
FOR CENTRAL LINE: Administer 40 mEq if potassium level 3.6-3.9 mmol/L; administer 80 mEq if potassium level is less than or equal to 3.5 mmol/L. If replacing magnesium also, replete Mg prior to KCl administration. EXCLUDE less than 45 kg, SCr greater than or equal to 2 mg/dL, CrCl less than 30 ml/min, ESRD, and renal replacement therapy. If patient receiving tube feeds, diet or is receiving other oral medications, enteral route preferred unless serum potassium is less than 3.0 mmol/L, then use IV formulation. If potassium level is less than or equal to 3.0 mmol/L, recheck potassium 4 hours after replacement. Extravasation Risk. CENTRAL LINE required. Telemetry required.
Or Potassium chloride (K-DUR) tablet ER 20 mEqJump to med 20 mEq, Oral, ADMINISTER DIRECTED, Starting on Tue05/16/23 at 1845, Until Discontinued, See admin instructions, ICU Potassium Replacement Parameters
Swallow tablets whole; do not crush, chew, or suck on tablet. Tablet may also be broken in half and each half swallowed separately Administer 40 mEq if potassium level 3.6-3.9 mmol/L; administer 80 mEq if potassium level is less than or equal to 3.5 mmol/L If replacing magnesium also, replete Mg prior to KCl administration. EXCLUDE less than 45 kg, SCr greater than or equal to 2 mg/dL, CrCl less than 30 ml/min, ESRD, and renal replacement therapy. If patient receiving tube feeds, diet or is receiving other oral medications, enteral route preferred unless serum potassium is less than 3.0 mmol/L, then use IV formulation. If potassium level is less than or equal to 3.0 mmol/L, recheck potassium 4 hours after replacement.
Or Potassium Bicarb-Citric Acid (Effer-K) 20 MEQ effervescent tablets for oral solution 20 mEqJump to med 20 mEq, Per NG tube, ADMINISTER DIRECTED, Starting on Tue05/16/23 at 1845, Until Discontinued, Other, ICU Potassium Replacement Parameters - See administration instructions
Administer 40 mEq if potassium level 3.6-3.9 mmol/L; administer 80 mEq if potassium level is less than or equal to 3.5 mmol/L. If replacing magnesium also, replete Mg prior to KCl administration. EXCLUDE less than 45 kg, SCr greater than or equal to 2 mg/dL, CrCl less than 30 ml/min, ESRD and renal replacement therapy. If patient receiving tube feeds, diet or is receiving other oral medications, enteral route preferred unless serum potassium is less than 3.0 mmol/L, then use IV formulation. If potassium level is less than or equal to 3.0 mmol/L, recheck potassium 4 hours after replacement. Do not swallow whole. Dissolve completely in 3-4 ounces of water or cold juice before drinking. If administering via J tube, dilute in sterile water, wait for tablet to stop fizzing, swirl the solution and draw into a syringe suitable for attaching to the tube. After administration, flush tube with 15-30 ml water.
Or Potassium chloride 10 mEq in sterile water 100 ml premix IVPBJump to med 10 mEq, Intravenous, Administer over 60 Minutes, ADMINISTER DIRECTED, Starting on Tue05/16/23 at 1845, Until Discontinued, Other, ICU Potassium Replacement Parameters
FOR PERIPHERAL LINE: Administer 40 mEq if potassium level 3.6-3.9 mmol/L; administer 80 mEq if potassium level is less than or equal to 3.5 mmol/L. If replacing magnesium also, replete Mg prior to KCl administration. EXCLUDE less than 45 kg, SCr greater than or equal to 2 mg/dL, CrCl less than 30 ml/min, ESRD and renal replacement therapy. If patient receiving tube feeds, diet or is receiving other oral medications, enteral route preferred unless serum potassium is less than 3.0 mmol/L, then use IV formulation. If potassium level is less than or equal to 3.0 mmol/L, recheck potassium 4 hours after replacement.
Group 3: sodium phosphate 30 mmol in Sodium chloride 0.9%, with overfill 285 mL (total volume) IVPBJump to med 30 mmol, Intravenous, Administer over 4 Hours, ADMINISTER DIRECTED, Starting on Tue05/16/23 at 1845, Until Discontinued, Other, ICU Phosphate Replacement Parameters
Administer 30 mmol if phosphate level is 2.1-2.6 mg/dl. EXCLUDE less than 45 kg, SCr greater than or equal to 2mg/dL, CrCl less than 30 ml/min, ESRD, renal replacement therapy, sodium greater than 150 mg/dL, ionized calcium less than 3.2 mg/dL, or Serum total Ca x serum Phos greater than 70 mg/dL.
Or sodium phosphate 45 mmol in Sodium chloride 0.9%, with overfill 290 mL (total volume) IVPBJump to med 45 mmol, Intravenous, Administer over 6 Hours, ADMINISTER DIRECTED, Starting on Tue05/16/23 at 1845, Until Discontinued, Other, ICU Phosphate Replacement Parameters
Administer 45 mmol if phosphate level is less than or equal to 2.0 mg/dl. EXCLUDE less than 45 kg, SCr greater than or equal to 2 mg/dL, CrCl less than 30 ml/min, ESRD, renal replacement therapy, sodium greater than 150 mg/dL, ionized calcium less than 3.2 mg/dL, or Serum total Ca x serum Phos greater than 70 mg/dL. Recheck phosphate 6 hours after replacement.
Scheduled Medication Order 05/19/2023 05/20/2023 05/21/2023 amLODIPine (NORVASC) tablet 5 mg 5 mg, Oral, DAILY, First dose on Tue05/21/23 at 0900, Until Discontinued 0914 (Given - Provider: Harjinder Swanson RN) Azithromycin (ZITHROMAX) tablet 250 mg 250 mg, Oral, EVERY M, W & F, First dose on Tue05/17/23 at 0900, Until Discontinued 0818 (Given - Provider: Alice Corrigan, SHERRY) carveDILOL (COREG) tablet 12.5 mg (CANCELED) 12.5 mg, Oral, 2 TIMES DAILY, First dose on Tue05/18/23 at 1115, Until Discontinued 0844 (Given - Provider: Darlene Marlow RN)1724 (Given - Provider: Darlene Marlow RN) 0801 (Given - Provider: Alice Corrigan RN) carveDILOL (COREG) tablet 12.5 mg (COMPLETED) 12.5 mg, Oral, ONCE, 1 dose, On Tue05/20/23 at 1115, 1147 (Given - Provider: Alice Corrigan RN) carveDILOL (COREG) tablet 25 mg 25 mg, Oral, 2 TIMES DAILY, First dose (after last modification) on Tue05/20/23 at 1700, Until Discontinued 1631 (Given - Provider: Lula Rg RN) 0914 (Given - Provider: Harjinder Swanson RN) Citalopram (CELEXA) tablet 10 mg 10 mg, Oral, DAILY, First dose on Tue05/21/23 at 0900, Until Discontinued 0915 (Given - Provider: Harjinder Swanson RN) Enoxaparin Sodium (LOVENOX) injection 40 mg 40 mg, Subcutaneous, EVERY 24 HOURS, First dose (after last modification) on Tue05/17/23 at 0900, Until Discontinued, , Indications: DVT/PE prophylaxis 0851 (Given - Provider: Darlene Marlow RN) 0801 (Given - Provider: Alice Corrigan RN) 0915 (Given - Provider: Harjinder Swanson RN) Gabapentin (NEURONTIN) capsule 400 mg 400 mg, Oral, 3 TIMES DAILY, First dose on Tue05/18/23 at 1400, Until Discontinued 0843 (Given - Provider: Darlene Marlow RN)1415 (Given - Provider: Darlene Marlow RN)2135 (Given - Provider: Waqar Clark RN) 0801 (Given - Provider: Alice Corrigan RN)1337 (Given - Provider: Lula Rg, RN)2044 (Given - Provider: Frankie Green RN) 0915 (Given - Provider: Harjinder Swanson RN)1400 (Canceled Entry - Provider: System Discharge - Comment: Automatically canceled at discontinue of medication order) Insulin lispro (HUMALOG) injection(Linked Group 1) Subcutaneous, 4 TIMES DAILY WITH MEALS & AT BEDTIME, First dose on Tue05/18/23 at 1200, Until Discontinued, Insulin to carb ratio: Standard: 1 unit insulin = 10 grams carbs every meal and at bedtime Correction Factor: 151-200 = 1 unit; 201-250 = 2 units; 251-300 = 3 units; 301-350 = 4 units; 351-400 = 5 units; Kwikpen: Prime pen before each injection; refer to Pen Priming and Care Handout for further details. Warning! Confirm patient. Insulin pen is for labeled individual patient use ONLY. 0853 (Not Given - Provider: Darlene Marlow RN - Reason: Order Parameters not met)1231 (Given - Provider: Darlene Marlow RN)1726 (Given - Provider: Darlene Marlow RN)2136 (Not Given - Provider: Waqar Clark RN - Reason: Order Parameters not met) 0734 (Not Given - Provider: Alice Corrigan RN - Reason: Order Parameters not met)1150 (Given - Provider: Alice Corrigan RN)1749 (Given - Provider: Lula Rg, SHERRY)2059 (Not Given - Provider: Frankie Green RN - Reason: Order Parameters not met) 0914 (Not Given - Provider: Harjinder Swanson RN - Reason: Order Parameters not met)1200 (Canceled Entry - Provider: System Discharge - Comment: Automatically canceled at discontinue of medication order) lidocaine 4 % patch 1 patch 1 patch, Transdermal, Administer over 12 Hours, EVERY 24 HOURS, First dose on Tue05/18/23 at 1145, Until Discontinued, Apply to back 0026 (Patch Removed - Provider: Yuliet Eric RN)1113 (Patch Applied - Provider: Darlene Marlow RN)2133 (Patch Removed - Provider: Waqar Clark RN - Comment: pt requested patch removal) 1147 (Patch Applied - Provider: Alice Corrigan RN - Comment: lower back) 0103 (Patch Removed - Provider: Frankie Green, RN)1145 (Canceled Entry - Provider: System Discharge - Comment: Automatically canceled at discontinue of medication order) Melatonin tablet 3 mg 3 mg, Oral, DAILY AT BEDTIME, First dose on Tue05/20/23 at 2100, Until Discontinued 0103 (Given - Provider: Frankie Green, SHERRY) Multi-Vitamins tablet 1 tablet 1 tablet, Oral, DAILY, First dose on Tue05/17/23 at 0900, Until Discontinued 0847 (Given - Provider: Darlene Marlow RN) 08 (Given - Provider: Alice Corrigan RN) 0914 (Given - Provider: Harjinder Swanson, SHERRY) Mycophenolate mofetil (CELLCEPT) capsule 1,000 mg 1,000 mg, Oral, EVERY 12 HOURS, First dose on Tue05/18/23 at 1500, Until Discontinued, Do not split, break, crush or open this medication. Contact pharmacy if altered route or dose is needed. 0844 (Given - Provider: Darlene Marlow RN)2135 (Given - Provider: Waqar Clark, SHERRY) 805 (Given - Provider: Alice Corrigan RN)2042 (Given - Provider: Frnakie Green, SHERRY) 0915 (Given - Provider: Harjinder Swanson, SHERRY) Pantoprazole (PROTONIX) tablet DR 40 mg 40 mg, Oral, 2 TIMES DAILY, First dose on Tue05/16/23 at 2100, Until Discontinued, Swallow whole; do not crush or chew., Indications: Continuation of Home Therapy 0844 (Given - Provider: Darlene Marlow RN)2134 (Given - Provider: Waqar Clark RN) 08 (Given - Provider: Alice Corrigan, SHERRY)2043 (Given - Provider: Frankie Green, SHERRY) 0914 (Given - Provider: Harjinder Swanson, SHERRY) Pneumococcal 23-valent (PNEUMOVAX) injection 0.5 mL 0.5 mL, Intramuscular, ONCE DURING ADMISSION, 1 dose, Starting on 05/21/23 at 0831, Until 05/21/23 at 1406, Administer into the deltoid muscle or lateral midthigh. prednisoLONE acetate (PRED FORTE) 1 % ophthalmic suspension 1 drop 1 drop, Right Eye, 2 TIMES DAILY, First dose on Tue05/20/23 at 1200, Until Discontinued, Shake well prior to use. 163 (Given - Provider: Lula Rg RN - Comment: med just delivered to [facility])2043 (Given - Provider: Frankie Green RN - Comment: med just delivered to [facility] - dose rescheduled to spread timing apart) 14 (Given - Provider: Harjinder Swanson, SHERRY) predniSONE (DELTASONE) tablet 5 mg 5 mg, Oral, DAILY, First dose on Tue05/17/23 at 0900, Until Discontinued 0846 (Given - Provider: Darlene Marlow RN) 0801 (Given - Provider: Alice Corrigan RN) 0916 (Given - Provider: Harjinder Swanson RN) Sulfamethoxazole-trime thoprim (BACTRIM DS) 800-160 MG per tablet 1 tablet 1 tablet, Oral, THREE TIMES WEEKLY (Once per day on Tue), First dose on Tue05/18/23 at 0900, Until Discontinued 0818 (Given - Provider: Alice Corrigan RN) Tacrolimus (PROGRAF) capsule 1 mg 1 mg, Oral, EVERY 12 HOURS, First dose on Tue05/18/23 at 2100, Until Discontinued, Do not split, break, crush, or open doses of this medication. Contact pharmacy if altered dose or route needed. Do not split, break, crush, or open doses of this medication. Contact pharmacy if altered dose or route needed. 49 (Given - Provider: Darlene Marlow RN)2134 (Given - Provider: Waqar Clark RN) 1018 (Given - Provider: Alice Corrigan, SHERRY)2043 (Given - Provider: Frankie Green, SHERRY) 0914 (Given - Provider: Harjinder Swanson, SHERRY) PRN Medication Order 05/19/2023 05/20/2023 05/21/2023 Acetaminophen (TYLENOL) tablet 650 mg 650 mg, Oral, EVERY 4 HOURS NEEDED, Starting on Tue05/18/23 at 1114, Until 05/21/23 at 1406, Mild Pain, Moderate Pain, Maximum dose of acetaminophen is 4000 mg from all sources in 24 hours. 0328 (Given - Provider: Yuliet Eric, RN)1415 (Given - Provider: Darlene Marlow, RN)1819 (Given - Provider: Darlene Marlow, RN) 0759 (Given - Provider: Alice Corrigan, SHERRY)1337 (Given - Provider: Llua Rg, RN)2054 (Given - Provider: Frankie Green, RN) 011 (Given - Provider: Frankie Green, SHERRY) Dextrose 50% injection 7.5-25 g(Linked Group 1) 7.5-25 g, Intravenous, ADMINISTER DIRECTED, Starting on Tue05/18/23 at 1116, Until 05/21/23 at 1406, Blood glucose <80 mg/dL, For patients who are not alert, are NPO, or are on IV insulin infusion administer as directed per Hypoglycemia in Non- Adults Clinical Practice Guideline. For Blood Glucose: 60-79 mg/dL administer 7.5 gm (15ml); 45-59 mg/dL administer 12.5 gm (25ml); less than 45mg/dL administer 25gm (50ml). ++ If additional dextrose 50% needed, contact pharmacy or obtain from [facility] ++ glucose (GLUTOSE) 40 % oral gel 1-2 Tube(Linked Group 1) 1-2 Tube, Oral, ADMINISTER DIRECTED, Starting on Tue05/18/23 at 1116, Until 05/21/23 at 1406, Blood glucose <80 mg/dL, For patients who are alert, able to tolerate PO intake and with intact cognitive status administer as directed per Hypoglycemia in Non- Adults Clinical Practice Guideline. For Blood Glucose: 60-79 mg/dL administer 1 tube; 45-59 mg/dl administer 1.5 tubes; less than 45 mg/dL administer 2 tubes. Each tube of 37.5g delivers 15g of carbohydrate. hydrOXYzine HCl (ATARAX) tablet 25 mg 25 mg, Oral, 3 TIMES DAILY NEEDED, Starting on Jennifer 05/19/23 at 2041, Until 05/21/23 at 1406, Anxiety, Insomnia 2134 (Given - Provider: Waqar Clark, SHERRY) Insulin lispro (HUMALOG) injection(Linked Group 1) Subcutaneous, NEEDED, Starting on Tue05/18/23 at 1116, Until 05/21/23 at 1406, Other, As needed for snacks, Insulin to carb ratio: Standard: 1 unit insulin = 10 grams carbs Correction Factor: not to be used with this order. Kwikpen: Prime pen before each injection; refer to Pen Priming and Care Handout for further details. Warning! Confirm patient. Insulin pen is for labeled individual patient use ONLY. Magnesium sulfate 4 g in sterile water 50 ml premix IVPB 4 g, Intravenous, Administer over 4 Hours, ADMINISTER DIRECTED, Starting on Tue05/16/23 at 1845, Until 05/21/23 at 1406, Other, ICU Magnesium Replacement Parameters, Administer 4 grams once if magnesium level is less than or equal to 2.0 mg/dL. If replacing potassium also, replete magnesium prior to KCl administration. EXCLUDE less than 45 kg, SCr greater than or equal to 2 mg/dL, CrCl less than 30 ml/min, ESRD, and renal replacement therapy 0330 ($$New Bag$$ - Provider: Yuliet Eric RN)0526 (Paused - Provider: Yuliet Eric RN)0531 (Restarted - Provider: Yuliet Eric RN)0555 (Rate/Dose Verify - Provider: Yuliet Eric RN)0615 (Rate/Dose Verify - Provider: Yuliet Eric RN)0736 (Stopped - Provider: Darlene Marlow RN) Potassium Bicarb-Citric Acid (Effer-K) 20 MEQ effervescent tablets for oral solution 20 mEq(Linked Group 2) 20 mEq, Per NG tube, ADMINISTER DIRECTED, Starting on Tue05/16/23 at 1845, Until 05/21/23 at 1406, Other, ICU Potassium Replacement Parameters - See administration instructions, Administer 40 mEq if potassium level 3.6-3.9 mmol/L; administer 80 mEq if potassium level is less than or equal to 3.5 mmol/L. If replacing magnesium also, replete Mg prior to KCl administration. EXCLUDE less than 45 kg, SCr greater than or equal to 2 mg/dL, CrCl less than 30 ml/min, ESRD and renal replacement therapy. If patient receiving tube feeds, diet or is receiving other oral medications, enteral route preferred unless serum potassium is less than 3.0 mmol/L, then use IV formulation. If potassium level is less than or equal to 3.0 mmol/L, recheck potassium 4 hours after replacement. Do not swallow whole. Dissolve completely in 3-4 ounces of water or cold juice before drinking. If administering via J tube, dilute in sterile water, wait for tablet to stop fizzing, swirl the solution and draw into a syringe suitable for attaching to the tube. After administration, flush tube with 15-30 ml water. 0612 (See Alternative - Provider: Yuliet Eric RN)0613 (See Alternative - Provider: Yuliet Eric RN)0715 (See Alternative - Provider: Yuliet Eric RN) Potassium chloride (K-DUR) tablet ER 20 mEq(Linked Group 2) 20 mEq, Oral, ADMINISTER DIRECTED, Starting on Tue05/16/23 at 1845, Until 05/21/23 at 1406, See admin instructions, ICU Potassium Replacement Parameters, Swallow tablets whole; do not crush, chew, or suck on tablet. Tablet may also be broken in half and each half swallowed separately Administer 40 mEq if potassium level 3.6-3.9 mmol/L; administer 80 mEq if potassium level is less than or equal to 3.5 mmol/L If replacing magnesium also, replete Mg prior to KCl administration. EXCLUDE less than 45 kg, SCr greater than or equal to 2 mg/dL, CrCl less than 30 ml/min, ESRD, and renal replacement therapy. If patient receiving tube feeds, diet or is receiving other oral medications, enteral route preferred unless serum potassium is less than 3.0 mmol/L, then use IV formulation. If potassium level is less than or equal to 3.0 mmol/L, recheck potassium 4 hours after replacement. 0612 (Given - Provider: Yuliet Eric RN)0613 (Given - Provider: Yuliet Eric RN)0715 (Given - Provider: Yuliet Eric RN) Potassium chloride 10 mEq in sterile water 100 ml premix IVPB(Linked Group 2) 10 mEq, Intravenous, Administer over 60 Minutes, ADMINISTER DIRECTED, Starting on Tue05/16/23 at 1845, Until 05/21/23 at 1406, Other, ICU Potassium Replacement Parameters, FOR PERIPHERAL LINE: Administer 40 mEq if potassium level 3.6-3.9 mmol/L; administer 80 mEq if potassium level is less than or equal to 3.5 mmol/L. If replacing magnesium also, replete Mg prior to KCl administration. EXCLUDE less than 45 kg, SCr greater than or equal to 2 mg/dL, CrCl less than 30 ml/min, ESRD and renal replacement therapy. If patient receiving tube feeds, diet or is receiving other oral medications, enteral route preferred unless serum potassium is less than 3.0 mmol/L, then use IV formulation. If potassium level is less than or equal to 3.0 mmol/L, recheck potassium 4 hours after replacement. 0612 (See Alternative - Provider: Yuliet Eric RN)0613 (See Alternative - Provider: Yuliet Eric RN)0715 (See Alternative - Provider: Yuliet Eric RN) Potassium chloride 20 mEq in sterile water 50 ml premix IVPB(Linked Group 2) 20 mEq, Intravenous, Administer over 60 Minutes, ADMINISTER DIRECTED, Starting on Tue05/16/23 at 1845, Until 05/21/23 at 1406, Other, ICU Potassium Replacement parameters, FOR CENTRAL LINE: Administer 40 mEq if potassium level 3.6-3.9 mmol/L; administer 80 mEq if potassium level is less than or equal to 3.5 mmol/L. If replacing magnesium also, replete Mg prior to KCl administration. EXCLUDE less than 45 kg, SCr greater than or equal to 2 mg/dL, CrCl less than 30 ml/min, ESRD, and renal replacement therapy. If patient receiving tube feeds, diet or is receiving other oral medications, enteral route preferred unless serum potassium is less than 3.0 mmol/L, then use IV formulation. If potassium level is less than or equal to 3.0 mmol/L, recheck potassium 4 hours after replacement. Extravasation Risk. CENTRAL LINE required. Telemetry required. 0612 (See Alternative - Provider: Yuliet Eric RN)06 (See Alternative - Provider: Yuliet Eric RN)0715 (See Alternative - Provider: Yuliet Eric RN) Sodium chloride 0.9% IV solution 250 mL Intravenous, at 20 mL/hr, NEEDED, Starting on Tue05/16/23 at 1845, Until 05/21/23 at 1406, Carrier Fluid - See Admin. Inst, 250mL 0.9NS to be used as carrier fluid for intermittent small volume or piggyback medication administration as needed. Infusion rate of the carrier fluid should be set at 20 mL/hr unless the rate as the intermittent medication is less than 20 mL/hr. For intermittent medications with a rate less than 20 mL/hr set the carrier fluid at that rate of the intermittent or piggy back medication. 0318 (Restarted - Provider: Yuliet Eric RN)0323 (Rate/Dose Verify - Provider: Yuliet Eric RN)0330 (Stopped - Provider: Yuliet Eric RN)0736 (Restarted - Provider: Darlene Marlow RN)0800 (Rate/Dose Verify - Provider: Darlene Marlow RN)1010 (Rate/Dose Verify - Provider: Darlene Marlow, RN)1200 (Rate/Dose Verify - Provider: Darlene Marlow, RN)1222 (Stopped - Provider: Waqar Clark RN) sodium phosphate 30 mmol in Sodium chloride 0.9%, with overfill 285 mL (total volume) IVPB(Linked Group 3) 30 mmol, Intravenous, Administer over 4 Hours, ADMINISTER DIRECTED, Starting on Tue05/16/23 at 1845, Until 05/21/23 at 1406, Other, ICU Phosphate Replacement Parameters, Administer 30 mmol if phosphate level is 2.1-2.6 mg/dl. EXCLUDE less than 45 kg, SCr greater than or equal to 2mg/dL, CrCl less than 30 ml/min, ESRD, renal replacement therapy, sodium greater than 150 mg/dL, ionized calcium less than 3.2 mg/dL, or Serum total Ca x serum Phos greater than 70 mg/dL. 0005 (Paused - Provider: Yuliet Eric RN)0017 (Restarted - Provider: Yuliet Eric RN)0100 (Rate/Dose Verify - Provider: Yuliet Eric RN)0252 (Rate/Dose Verify - Provider: Yuliet Eric RN)0315 (Rate/Dose Verify - Provider: Yuliet Eric RN)0318 (Stopped - Provider: Yuliet Eric RN) sodium phosphate 45 mmol in Sodium chloride 0.9%, with overfill 290 mL (total volume) IVPB(Linked Group 3) 45 mmol, Intravenous, Administer over 6 Hours, ADMINISTER DIRECTED, Starting on Tue05/16/23 at 1845, Until 05/21/23 at 1406, Other, ICU Phosphate Replacement Parameters, Administer 45 mmol if phosphate level is less than or equal to 2.0 mg/dl. EXCLUDE less than 45 kg, SCr greater than or equal to 2 mg/dL, CrCl less than 30 ml/min, ESRD, renal replacement therapy, sodium greater than 150 mg/dL, ionized calcium less than 3.2 mg/dL, or Serum total Ca x serum Phos greater than 70 mg/dL. Recheck phosphate 6 hours after replacement. 0005 (See Alternative - Provider: Yuliet Eric RN)0017 (See Alternative - Provider: Yuliet Eric RN)0100 (See Alternative - Provider: Yuliet Eric RN)0252 (See Alternative - Provider: Yuliet Eric RN)0315 (See Alternative - Provider: Yuliet Eric RN)0318 (See Alternative - Provider: Yuliet Eric RN) Linked Groups Order Group 1: Insulin lispro (HUMALOG) injectionJump to med Subcutaneous, 4 TIMES DAILY WITH MEALS & AT BEDTIME, First dose on Tue05/18/23 at 1200, Until Discontinued
Insulin to carb ratio: Standard: 1 unit insulin = 10 grams carbs every meal and at bedtime Correction Factor: 151-200 = 1 unit; 201-250 = 2 units; 251-300 = 3 units; 301-350 = 4 units; 351-400 = 5 units; Kwikpen: Prime pen before each injection; refer to Pen Priming and Care Handout for further details. Warning! Confirm patient. Insulin pen is for labeled individual patient use ONLY.
And Insulin lispro (HUMALOG) injectionJump to med Subcutaneous, NEEDED, Starting on Tue05/18/23 at 1116, Until 05/21/23 at 1406, Other, As needed for snacks
Insulin to carb ratio: Standard: 1 unit insulin = 10 grams carbs Correction Factor: not to be used with this order. Kwikpen: Prime pen before each injection; refer to Pen Priming and Care Handout for further details. Warning! Confirm patient. Insulin pen is for labeled individual patient use ONLY.
And BLOOD GLUCOSE (POC DEVICE) (CANCELED) Routine, 4 TIMES DAILY BEFORE MEALS & AT BEDTIME, First occurrence on Tue05/18/23 at 1530
If any Blood Glucose (POC) is greater than 300mg/dl, then repeat Blood Glucose (POC) in 2 hours. If the initial blood glucose was greater than 300mg/dl and if second blood glucose is greater than 200md/dl, then notify Welder. And BLOOD GLUCOSE (POC DEVICE) (CANCELED) Routine, DIRECTED, Starting on Tue05/18/23 at 1116, Until Specified
For all Blood Glucose LESS THAN 80 mg/dL, treat per Hypoglycemia in Non- Adults Clinical Practice Guideline (CPG) and recheck glucose 15 min after treatment. Repeat per CPG until glucose GREATER THAN 80 mg/dL. Once glucose IS GREATER THAN 80 mg/dL, recheck Blood Glucose every 1 hour x2, then resume as previously ordered. For Blood Glucose LESS THAN 80 mg/dL on admission OR LESS than 45 mg/dL at any time, obtain POC Blood Glucose every 4 hours for 6 occurrences AFTER treating per CPG. Obtain blood glucose for symptoms of hypoglycemia: sweating, shaking, fatigue, rapid pulse, slow thinking & dizziness. Notify physician w/results. Obtain blood glucose for symptoms of hyperglycemia: excessive thirst, blurred vision, excessive urination & tiredness. Notify physician w/results. If patient NPO, obtain POC Blood Glucose prior to administration of any insulin products. And COMMUNICATION ORDER FOR NURSING CARE: For Blood Glucose LESS THAN 80 mg/dl (CANCELED) Routine, CONTINUOUS, Starting on Tue05/18/23 at 1117, Until Specified
For Blood Glucose LESS THAN 80 mg/dl follow Hypoglycemia in Non- Adults Clinical Practice Guideline (CPG) And Dextrose 50% injection 7.5-25 gJump to med 7.5-25 g, Intravenous, ADMINISTER DIRECTED, Starting on Tue05/18/23 at 1116, Until 05/21/23 at 1406, Blood glucose <80 mg/dL
For patients who are not alert, are NPO, or are on IV insulin infusion administer as directed per Hypoglycemia in Non- Adults Clinical Practice Guideline. For Blood Glucose: 60-79 mg/dL administer 7.5 gm (15ml); 45-59 mg/dL administer 12.5 gm (25ml); less than 45mg/dL administer 25gm (50ml). ++ If additional dextrose 50% needed, contact pharmacy or obtain from crash cart ++
And glucose (GLUTOSE) 40 % oral gel 1-2 TubeJump to med 1-2 Tube, Oral, ADMINISTER DIRECTED, Starting on Tue05/18/23 at 1116, Until 05/21/23 at 1406, Blood glucose <80 mg/dL
For patients who are alert, able to tolerate PO intake and with intact cognitive status administer as directed per Hypoglycemia in Non- Adults Clinical Practice Guideline. For Blood Glucose: 60-79 mg/dL administer 1 tube; 45-59 mg/dl administer 1.5 tubes; less than 45 mg/dL administer 2 tubes. Each tube of 37.5g delivers 15g of carbohydrate.
And NOTIFY PHYSICIAN, Blood Glucose LESS THAN 80 mg/dl (CANCELED) Routine, CONTINUOUS, Starting on Tue05/18/23 at 1117, Until Specified
Who to Notify: Welder
For all Blood Glucose LESS THAN 80 mg/dl, notify Welder after treatment per Hypoglycemia in Non- Adults Clinical Practice Guideline And Carbohydrate counts with meals (CANCELED) Routine, CONTINUOUS, Starting on Tue05/18/23 at 1117, Until Specified
Carbohydrate counts are to be done after each patient meal and with snack. Group 2: Potassium chloride 20 mEq in sterile water 50 ml premix IVPBJump to med 20 mEq, Intravenous, Administer over 60 Minutes, ADMINISTER DIRECTED, Starting on Tue05/16/23 at 1845, Until 05/21/23 at 1406, Other, ICU Potassium Replacement parameters
FOR CENTRAL LINE: Administer 40 mEq if potassium level 3.6-3.9 mmol/L; administer 80 mEq if potassium level is less than or equal to 3.5 mmol/L. If replacing magnesium also, replete Mg prior to KCl administration. EXCLUDE less than 45 kg, SCr greater than or equal to 2 mg/dL, CrCl less than 30 ml/min, ESRD, and renal replacement therapy. If patient receiving tube feeds, diet or is receiving other oral medications, enteral route preferred unless serum potassium is less than 3.0 mmol/L, then use IV formulation. If potassium level is less than or equal to 3.0 mmol/L, recheck potassium 4 hours after replacement. Extravasation Risk. CENTRAL LINE required. Telemetry required.
Or Potassium chloride (K-DUR) tablet ER 20 mEqJump to med 20 mEq, Oral, ADMINISTER DIRECTED, Starting on Tue05/16/23 at 1845, Until 05/21/23 at 1406, See admin instructions, ICU Potassium Replacement Parameters
Swallow tablets whole; do not crush, chew, or suck on tablet. Tablet may also be broken in half and each half swallowed separately Administer 40 mEq if potassium level 3.6-3.9 mmol/L; administer 80 mEq if potassium level is less than or equal to 3.5 mmol/L If replacing magnesium also, replete Mg prior to KCl administration. EXCLUDE less than 45 kg, SCr greater than or equal to 2 mg/dL, CrCl less than 30 ml/min, ESRD, and renal replacement therapy. If patient receiving tube feeds, diet or is receiving other oral medications, enteral route preferred unless serum potassium is less than 3.0 mmol/L, then use IV formulation. If potassium level is less than or equal to 3.0 mmol/L, recheck potassium 4 hours after replacement.
Or Potassium Bicarb-Citric Acid (Effer-K) 20 MEQ effervescent tablets for oral solution 20 mEqJump to med 20 mEq, Per NG tube, ADMINISTER DIRECTED, Starting on Tue05/16/23 at 1845, Until 05/21/23 at 1406, Other, ICU Potassium Replacement Parameters - See administration instructions
Administer 40 mEq if potassium level 3.6-3.9 mmol/L; administer 80 mEq if potassium level is less than or equal to 3.5 mmol/L. If replacing magnesium also, replete Mg prior to KCl administration. EXCLUDE less than 45 kg, SCr greater than or equal to 2 mg/dL, CrCl less than 30 ml/min, ESRD and renal replacement therapy. If patient receiving tube feeds, diet or is receiving other oral medications, enteral route preferred unless serum potassium is less than 3.0 mmol/L, then use IV formulation. If potassium level is less than or equal to 3.0 mmol/L, recheck potassium 4 hours after replacement. Do not swallow whole. Dissolve completely in 3-4 ounces of water or cold juice before drinking. If administering via J tube, dilute in sterile water, wait for tablet to stop fizzing, swirl the solution and draw into a syringe suitable for attaching to the tube. After administration, flush tube with 15-30 ml water.
Or Potassium chloride 10 mEq in sterile water 100 ml premix IVPBJump to med 10 mEq, Intravenous, Administer over 60 Minutes, ADMINISTER DIRECTED, Starting on Tue05/16/23 at 1845, Until 05/21/23 at 1406, Other, ICU Potassium Replacement Parameters
FOR PERIPHERAL LINE: Administer 40 mEq if potassium level 3.6-3.9 mmol/L; administer 80 mEq if potassium level is less than or equal to 3.5 mmol/L. If replacing magnesium also, replete Mg prior to KCl administration. EXCLUDE less than 45 kg, SCr greater than or equal to 2 mg/dL, CrCl less than 30 ml/min, ESRD and renal replacement therapy. If patient receiving tube feeds, diet or is receiving other oral medications, enteral route preferred unless serum potassium is less than 3.0 mmol/L, then use IV formulation. If potassium level is less than or equal to 3.0 mmol/L, recheck potassium 4 hours after replacement.
Group 3: sodium phosphate 30 mmol in Sodium chloride 0.9%, with overfill 285 mL (total volume) IVPBJump to med 30 mmol, Intravenous, Administer over 4 Hours, ADMINISTER DIRECTED, Starting on Tue05/16/23 at 1845, Until 05/21/23 at 1406, Other, ICU Phosphate Replacement Parameters
Administer 30 mmol if phosphate level is 2.1-2.6 mg/dl. EXCLUDE less than 45 kg, SCr greater than or equal to 2mg/dL, CrCl less than 30 ml/min, ESRD, renal replacement therapy, sodium greater than 150 mg/dL, ionized calcium less than 3.2 mg/dL, or Serum total Ca x serum Phos greater than 70 mg/dL.
Or sodium phosphate 45 mmol in Sodium chloride 0.9%, with overfill 290 mL (total volume) IVPBJump to med 45 mmol, Intravenous, Administer over 6 Hours, ADMINISTER DIRECTED, Starting on 05/16/23 at 1845, Until 05/21/23 at 1406, Other, ICU Phosphate Replacement Parameters
Administer 45 mmol if phosphate level is less than or equal to 2.0 mg/dl. EXCLUDE less than 45 kg, SCr greater than or equal to 2 mg/dL, CrCl less than 30 ml/min, ESRD, renal replacement therapy, sodium greater than 150 mg/dL, ionized calcium less than 3.2 mg/dL, or Serum total Ca x serum Phos greater than 70 mg/dL. Recheck phosphate 6 hours after replacement.
(unrecognized sect ion and content) No Status Records FoundNo Status Records FoundNo Status Records FoundNo Status Records FoundNo Status Records FoundNo Status Records Found INFORMATION SOURCE (unrecogn ized section and content) DATE CREATED AUTHOR 05/04/2022 [facility] DATE CREATED AUTHOR AUTHOR'S ORGANIZ ATION 05/26/2022 [facility] DATE CREATED AUTHOR AUTHOR'S ORGANIZ ATION 08/10/2022 [facility] DATE CREATED AUTHOR AUTHOR'S ORGANIZ ATION 06/06/2024 [facility] DATE CREATED AUTHOR AUTHOR'S ORGANIZ ATION 08/03/2024 [facility] [employer] [facility] DATE CREATED AUTHOR AUTHOR'S ORGANIZ ATION 08/06/2024 [facility] Dialysis Access Sites (unrec ognized section and content) Type Status Location Placement Date Removal Da te Arterial Line 12/11/18 1730 radial artery, left Inactive Left Wrist - Anterior 12/11/2018 0 12/13/2018 Sheath (CV Access Device) 07/13/18 1513 Venous 8 Fr 10 cm Right internal jugular Inactive 07/13/2018 07/13/2018 Sheath (CV Access Device) 07/13/18 1505 Arterial 6 Fr 16 cm Right radial Label 1 Inactive 07/13/2018 07/13/2018 Source Comments (unrecognize d section and content) In the event this informatio n is protected by the Federal Confidentiality of Alcohol and Drug Abuse Patient Records regulations: The Federal rules restrict any use of the information to criminally investigate or prosecute any alcohol or drug abuse patient.[facility] the event this information is protected by the Federal Confidentiality of Alcohol and Drug Abuse Patient Records regulations: The Federal rules restrict any use of the information to criminally investigate or prosecute any alcohol or drug abuse patient.[facility] Campus[facility] the event this information is protected by the Federal Confidentiality of Alcohol and Drug Abuse Patient Records regulations: The Federal rules restrict any use of the information to criminally investigate or prosecute any alcohol or drug abuse patient.[facility] CampusIn the event this information is protected by the Federal Confidentiality of Alcohol and Drug Abuse Patient Records regulations: The Federal rules restrict any use of the information to criminally investigate or prosecute any alcohol or drug abuse patient.[facility] CampusIn the event this information is protected by the Federal Confidentiality of Alcohol and Drug Abuse Patient Records regulations: The Federal rules restrict any use of the information to criminally investigate or prosecute any alcohol or drug abuse patient.[facility] CampusIn the event this information is protected by the Federal Confidentiality of Alcohol and Drug Abuse Patient Records regulations: The Federal rules restrict any use of the information to criminally investigate or prosecute any alcohol or drug abuse patient.[facility] CampusIn the event this information is protected by the Federal Confidentiality of Alcohol and Drug Abuse Patient Records regulations: The Federal rules restrict any use of the information to criminally investigate or prosecute any alcohol or drug abuse patient.[facility] CampusIn the event this information is protected by the Federal Confidentiality of Alcohol and Drug Abuse Patient Records regulations: The Federal rules restrict any use of the information to criminally investigate or prosecute any alcohol or drug abuse patient.[facility] CampusIn the event this information is protected by the Federal Confidentiality of Alcohol and Drug Abuse Patient Records regulations: The Federal rules restrict any use of the information to criminally investigate or prosecute any alcohol or drug abuse patient.[facility] FOR RECORDS PERTAINING TO PATIENTS WHO ARE OR HAVE BEEN ENROLLED IN A CHEMICAL DEPENDENCY/SUBSTANCEABUSE PROGRAM, SOME INFORMATION MAY BE OMITTED. This clinical summary was aggregated from multiple sources. Caution should be exercised in using it in the provision of clinical care. This summary normalizes information from multiple sources, and as a consequence, information in this document may materially change the coding, format and clinical context of patient data. In addition, data may be omitted in some cases. CLINICAL DECISIONS SHOULD BE BASED ON THE PRIMARY CLINICAL RECORDS. [facility]. provides no warranty or guarantee of the accuracy or completeness of information in this document.
--- NOTE | 2024-08-09 07:57 | PRE.ANES_ITS ---
ASA Classification* ASA Classification ASA Classification: 3 Assessment & Plan Anesthesia* Anesthesia Assessment Anesthesia Assessment: Discussed sedation and/or anesthesia options, risks, benefits, and alternatives with patient/parents/legal guardian/POA. Questions invited. The patient/parents/legal guardian/POA seems to understand and agrees to proceed with anesthesia plan. Reviewed the physical assessment, medical history, allergy history and patient home medications list prior to surgery/procedure/anesthetic and documented any changes. Performed airway and anesthesia risk assessments. Anesthesia Type Anesthesia Type: MAC Anesthesia Focused Assessment* Airway Assessment Mouth opens: >3 cm Mallampati Score: II Focused Labs Anesthesia Preop lab: CBC WBC 7.6 K/mm3 (4.4-11.0) 09/13/21 21:13 RBC 4.79 M/mm3 (4.6-6.2) 09/13/21 21:13 Hgb 14.9 g/dL (13.0-16.5) 09/13/21 21:13 Hct 43.5 % (40-54) 09/13/21 21:13 Plt Count 155 K/mm3 (150-450) 09/13/21 21:13 CHEMISTRY Potassium 3.6 mmol/L (3.5-5.1) 09/13/21 21:13 Sodium 140 mmol/L (136-145) 09/13/21 21:13 Magnesium 1.5 mg/dL (1.6-2.6) L 03/06/20 09:50 Phosphorus 2.2 mg/dL (2.5-4.9) L 04/30/19 09:10 BUN 18 mg/dL (7-18) 09/13/21 21:13 Creatinine 1.10 mg/dL (0.70-1.30) 09/13/21 21:13 Glucose 110 mg/dL (74-106) H 09/13/21 21:13 POC Glucose 139 mg/dL (70-110) H 03/06/20 10:17 COAG Pre-Assessment Diagnosis/Proposed Procedure Planned Operative Procedure(s): COLONOSCOPY-OA Anesthesia History Anesthesia History - director of clinical trials: Anesthesia History - director of clinical trials Hx Hospitalization Yes: 05/15/24 [facility] 08/06/24 12:18 [facility] L[facility]G COLLAPS[facility] Any Problems With Anesthesia No 08/06/24 12:18 Cholinesterase deficiency No 08/06/24 12:18 You/Your Family Experience No 08/06/24 12:18 fever (hyperthermia) with Relationship Recent Exposure to Contagious No 07/17/21 09:29 Disease Does patient have nerve No 08/06/24 12:18 stimulator Patient instructed to have device shut off --Does patient have Pacemaker or ICD? When Was Last Pacemaker Check QUESTION #4 FULL TEXT: You/Your Family Experience fever (hyperthermia) with Anesthesia Last Oral Intake Last Oral intake: Last Oral Intake NPO since Meds taken in AM with sips of water? Meds patient instructed to take am of surgery PONV PONV - director of clinical trials: PONV - director of clinical trials Female No 08/06/24 12:18 HX of Motion Sickness No 08/06/24 12:18 HX of N/V After Surgery No 08/06/24 12:18 Non-Smoker Yes 08/06/24 12:18 Duration of Surgery greater No 08/06/24 12:18 than 60 minutes Number of Risk Factors 1 08/06/24 12:18 PONV Score Low Risk 08/06/24 12:18 Height & Weight Height & Weight: Anesthesia: Height & Weight Height 5 ft 11 in 06/21/24 10:49 Respiratory Assessment Respiratory Assessment - director of clinical trials: Respiratory Tract Infection Hx - director of clinical trials Hx Respiratory Tract Infection No 08/06/24 12:18 STOP Sleep Apnea STOP Sleep Apnea - director of clinical trials: STOP Sleep Apnea - director of clinical trials Hx Hypertension Yes: controlled with med 08/06/24 12:18 Hx Sleep Apnea No 08/06/24 12:18 CPAP No 08/06/24 12:18 BIPAP Do you snore loudly (louder No 08/06/24 12:18 than talking or can be heard Do you often feel tired/ No 08/06/24 12:18 fatigued/ sleepy during daytime? Has anyone observed you stop No 08/06/24 12:18 breathing during sleep? STOP Results Negative 08/06/24 12:18 QUESTION #5 FULL TEXT : Do you snore loudly (louder than talking or can be heard through closed doors)? Tobacco Use History Tobacco Use History - director of clinical trials: Tobacco Use History - director of clinical trials Tobacco Use Smoking Status Former smoker 08/06/24 12:18 Hx Tobacco Use No 08/06/24 12:18 Years Smoking Packs Smoked per Day Smoking Cessation Date was Yes - quit smoking within 15 08/06/24 12:18 within the last 15 years years Hx Smoking Cessation Date 10/17/04 08/06/24 12:18 Hx Smoking Cessation Counseling Hematologic Medial History Hematologic Hx - director of clinical trials: Hematologic Medical Hx - script coordinator Hx of Blood Transfusion Yes 08/06/24 12:18 Hx of Transfusion in last 3 No 08/06/24 12:18 Months Date of Last Transfusion (if within last 3 months) Ever experience any problems No 08/06/24 12:18 with transfusion(s)? Specify any problems Hx of Preganancy in last 3 N/A 08/06/24 12:18 Months Nurse Filling Out Transfusion VCHRISTIN 08/06/24 12:18 & Questions: Date: 08/06/24 08/06/24 12:18 Time: 12:20 08/06/24 12:18 Patient unable to answer at this time (ie. confused, unrespo /Reproduction History /Reproductive History - director of clinical trials: /Reproductive Hx- director of clinical trials Hx Now No 08/06/24 12:18 Gestational Age (in weeks): EDC: Hx Hx Para Hx Section SAB No 08/06/24 12:18 PFSH Medical History Wears dentures Non-smoker History of irregular heartbeat Lumbar radiculopathy Wears glasses Wears partial dentures Diabetes Arthritis Restless legs Back pain History of hiatal hernia Gastric reflux Former smoker History of pain when walking Hypertension History of echocardiogram History of stress test Cardiology follow-up encounter Atherosclerosis of coronary artery of [place] heart without angina pectoris Pre-operative cardiovascular examination Hyperlipidemia History of kidney stones Atherosclerotic heart disease of [place] coronary artery without angina pectoris Wide-complex tachycardia Pre-operative cardiovascular examination Lung transplant candidate Compression fracture of T7 vertebra Compression fracture of L4 lumbar vertebra Compression fracture of L2 lumbar vertebra Screen for colon cancer Stage 4 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 Migraine Hypoxia Emphysema of lung Oxygen dependent Cachexia Herpes zoster Phlebitis of superficial vein of lower extremity Lung nodule COPD with acute exacerbation Left shoulder pain Hypersomnia Anxiety Burning sensation of feet Stage 4 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 Malnutrition of moderate degree Chronic respiratory failure with hypoxia and hypercapnia Nephrolithiasis COPD (chronic obstructive pulmonary disease) Home Medications ?Medication ?Instructions ?Recorded ?Last Taken ?Type multivitamin with iron (Daily 1 tab PO QDAY 02/06/18 08/06/24 History Multiple Vitamins with Iron tablet) azithromycin 250 mg tablet 250 mg PO MOWEFR 06/15/18 12/03/19 08:00 History 250 MG aspirin 81 mg tablet,delayed 81 mg PO DAILY 10/04/18 08/06/24 History release (Adult Low Dose Aspirin) ergocalciferol (vitamin D2) 1,250 50,000 unit PO TU 02/16/19 12/03/19 08:00 History mcg (50,000 unit) capsule 97468 UNIT magnesium oxide 400 mg (241.3 mg 800 mg PO BID 02/16/19 12/03/19 08:00 History magnesium) tablet 800 MG mycophenolate mofetil 250 mg 1,000 mg PO BID 02/16/19 08/09/24 History capsule pantoprazole 40 mg tablet,delayed 40 mg PO BID 02/16/19 08/09/24 History release rosuvastatin 10 mg tablet 10 mg PO QHS 02/16/19 Unknown History sitagliptin phosphate 100 mg tablet 100 mg PO DAILY 02/16/19 12/03/19 08:00 History 100 MG gabapentin 400 mg capsule 800 mg PO BID 07/26/19 12/03/19 08:00 History 400 MG prednisone 5 mg tablet 5 mg PO DAILY 07/26/19 08/09/24 History sildenafil 50 mg tablet 50 mg PO DAILY PRN sexual activity 07/26/19 12/03/19 08:00 History 50 MG acetaminophen 500 mg tablet 1,000 mg PO Q8H PRN Pain 08/27/20 Unknown History tacrolimus 0.5 mg capsule, 1 mg PO QHS anti rejection 08/27/20 08/09/24 06:10 History immediate-release calcium carbonate (Oyster Shell 500 mg PO DAILY 07/02/21 Unknown History Calcium) calcium citrate 200 mg PO DAILY 07/02/21 Unknown History docusate sodium 100 mg capsule 100 mg PO PRN PRN Constipation 07/02/21 Unknown History (Colace) hydrocodone 10 mg-acetaminophen 1 tab PO Q6H PRN Pain 07/02/21 08/09/24 History 325 mg tablet oxybutynin chloride 10 mg 10 mg PO DAILY 09/16/21 Unknown History tablet,extended release 24 hr sulfamethoxazole 800 1 tab PO MOWEFR 07/02/21 Unknown History mg-trimethoprim 160 mg tablet (Bactrim DS) amlodipine 10 mg tablet 10 mg PO DAILY 08/06/24 08/09/24 History citalopram 10 mg tablet 10 mg PO DAILY 08/06/24 Unknown History metoprolol tartrate 25 mg tablet 12.5 mg PO BID 08/06/24 08/09/24 History sucralfate 1 gram tablet 1 g PO BID 08/06/24 Unknown History Allergy/AdvReac Type Severity Reaction Status Date / Time fluticasone furoate (From Allergy Severe Other Verified 08/06/24 11:52 Breo Ellipta) vilanterol (From Breo Allergy Severe Other Verified 08/06/24 11:52 Ellipta) codeine Allergy Mild Hives Verified 08/06/24 11:52 Family History Mother Heart disease Lung disease Sister Lung disease Brother Lung disease Father CAD (coronary artery disease) Surgical History Hx of bilateral cataract extraction Hx of surgical procedure Hx of colonoscopy History of cardiac catheterization Hx of lung transplant History of kyphoplasty History of total right hip arthroplasty History of right hip replacement Status post lung transplantation (12/11/18) Organ or tissue replaced by transplant H/O right and left heart catheterization (07/13/18) S/P rotator cuff repair Status post wrist surgery shattered left wrist Social History household members: spouse current occupational status: disabled Smoking Status: Former smoker quit date: 10/17/13 pack-years: 25 Tobacco: How many years used: 25 second hand exposure: No alcohol intake: never substance use type: does not use what type of physical activity do you participate in: walking and weight training frequency: daily Review of Systems (Anesthesia) ROS Narrative System reviewed and no additional complaints, except as documented.
--- NOTE | 2024-08-09 08:46 | H&P.OPEN ---
HPI - General General Date of Admission: 08/09/24 Chief Complaint: Screening colonoscopy HPI Narrative NICK HERNÁNDEZ, is a 64 M who presents for update screening colonoscopy. He is a former patient of mine that underwent screening colonoscopy in July 2021 with findings of just hemorrhoid activity. He reports that he has been in a stable state of health since this last screening. He is a lung transplant patient in denies any difficulties from a pulmonary standpoint. He does note that the steroids that he has to take continuously had led to some weight gain but he has, through intentional effort, lost approximately 10 pounds. He confirms his preappointment questionnaire that he has not experienced any change in her bowel habits-and particularly denies any notice of blood. Lastly he confirms that his prep was completed successfully and that his output is now overall clear with some flecks . Outside of immediate GI concerns he does report that he has been diagnosed with an umbilical hernia which is occasionally tender. [facility] Medical History Wears dentures Non-smoker History of irregular heartbeat Lumbar radiculopathy Wears glasses Wears partial dentures Diabetes Arthritis Restless legs Back pain History of hiatal hernia Gastric reflux Former smoker History of pain when walking Hypertension History of echocardiogram History of stress test Cardiology follow-up encounter Atherosclerosis of coronary artery of [place] heart without angina pectoris Pre-operative cardiovascular examination Hyperlipidemia History of kidney stones Atherosclerotic heart disease of [place] coronary artery without angina pectoris Wide-complex tachycardia Pre-operative cardiovascular examination Lung transplant candidate Compression fracture of T7 vertebra Compression fracture of L4 lumbar vertebra Compression fracture of L2 lumbar vertebra Screen for colon cancer Stage 4 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 Migraine Hypoxia Emphysema of lung Oxygen dependent Cachexia Herpes zoster Phlebitis of superficial vein of lower extremity Lung nodule COPD with acute exacerbation Left shoulder pain Hypersomnia Anxiety Burning sensation of feet Stage 4 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 Malnutrition of moderate degree Chronic respiratory failure with hypoxia and hypercapnia Nephrolithiasis COPD (chronic obstructive pulmonary disease) Home Medications ?Medication ?Instructions ?Recorded ?Last Taken ?Type multivitamin with iron (Daily 1 tab PO QDAY 02/06/18 08/06/24 History Multiple Vitamins with Iron tablet) azithromycin 250 mg tablet 250 mg PO MOWEFR 06/15/18 12/03/19 08:00 History 250 MG aspirin 81 mg tablet,delayed 81 mg PO DAILY 10/04/18 08/06/24 History release (Adult Low Dose Aspirin) ergocalciferol (vitamin D2) 1,250 50,000 unit PO TU 02/16/19 12/03/19 08:00 History mcg (50,000 unit) capsule 76038 UNIT magnesium oxide 400 mg (241.3 mg 800 mg PO BID 02/16/19 12/03/19 08:00 History magnesium) tablet 800 MG mycophenolate mofetil 250 mg 1,000 mg PO BID 02/16/19 08/09/24 History capsule pantoprazole 40 mg tablet,delayed 40 mg PO BID 02/16/19 08/09/24 History release rosuvastatin 10 mg tablet 10 mg PO QHS 02/16/19 Unknown History sitagliptin phosphate 100 mg tablet 100 mg PO DAILY 02/16/19 12/03/19 08:00 History 100 MG gabapentin 400 mg capsule 800 mg PO BID 07/26/19 08/09/24 History prednisone 5 mg tablet 5 mg PO DAILY 07/26/19 08/09/24 History sildenafil 50 mg tablet 50 mg PO DAILY PRN sexual activity 07/26/19 12/03/19 08:00 History 50 MG acetaminophen 500 mg tablet 1,000 mg PO Q8H PRN Pain 08/27/20 Unknown History tacrolimus 0.5 mg capsule, 1 mg PO QHS anti rejection 08/27/20 08/09/24 06:10 History immediate-release calcium carbonate (Oyster Shell 500 mg PO DAILY 07/02/21 Unknown History Calcium) calcium citrate 200 mg PO DAILY 07/02/21 Unknown History docusate sodium 100 mg capsule 100 mg PO PRN PRN Constipation 07/02/21 Unknown History (Colace) hydrocodone 10 mg-acetaminophen 1 tab PO Q6H PRN Pain 07/02/21 08/09/24 History 325 mg tablet oxybutynin chloride 10 mg 10 mg PO DAILY 07/02/21 Unknown History tablet,extended release 24 hr sulfamethoxazole 800 1 tab PO MOWEFR 07/02/21 Unknown History mg-trimethoprim 160 mg tablet (Bactrim DS) amlodipine 10 mg tablet 10 mg PO DAILY 08/06/24 08/09/24 History citalopram 10 mg tablet 10 mg PO DAILY 08/06/24 08/09/24 History metoprolol tartrate 25 mg tablet 12.5 mg PO BID 08/06/24 08/09/24 History sucralfate 1 gram tablet 1 g PO BID 08/06/24 Unknown History Allergy/AdvReac Type Severity Reaction Status Date / Time fluticasone furoate (From Allergy Severe Other Verified 08/06/24 11:52 Breo Ellipta) vilanterol (From Breo Allergy Severe Other Verified 08/06/24 11:52 Ellipta) codeine Allergy Mild Hives Verified 08/06/24 11:52 Family History Mother Heart disease Lung disease Sister Lung disease Brother Lung disease Father CAD (coronary artery disease) Surgical History Hx of bilateral cataract extraction Hx of surgical procedure Hx of colonoscopy History of cardiac catheterization Hx of lung transplant History of kyphoplasty History of total right hip arthroplasty History of right hip replacement Status post lung transplantation (12/11/18) Organ or tissue replaced by transplant H/O right and left heart catheterization (07/13/18) S/P rotator cuff repair Status post wrist surgery shattered left wrist Social History household members: spouse current occupational status: disabled Smoking Status: Former smoker quit date: 10/17/13 pack-years: 25 Tobacco: How many years used: 25 second hand exposure: No alcohol intake: never substance use type: does not use what type of physical activity do you participate in: walking and weight training frequency: daily Past Medical/Surgical History Planned Operation Planned Operative Procedure(s): COLONOSCOPY-OA S.O.S: No Previous Hospitalizations/Surgeries HX Hospitalizations: Yes (05/15/24 [facility]) HX of Surgeries: L WRIST FUSION W/ BONE GRAFTING L SHOULDER RTC REPAIR COLONOSCOPY 06/21/18 ABDIAZIZ DOUBLE LUNG TRANSPLANT 11/2018 L2-L4 LUMBAR KYPHOPLASTY 07/31/18 KIDNEY STONES 08/04 BACK SURGERY 10/2018 kyphoplasty l3 11/2019 Any Problems With Anesthesia: No You/Your Family Experience Fever (Hyperthermia) With Anes: No Cholinesterase deficiency: No Cardiovascular Hx Chest Pain within Last 2 months: No Hx of Irregular Heartbeat and/or Afib: No (.) Hx Heart Attack: No Hx Congestive Heart Failure: No Hx Rheumatic Fever: No Hx Hypertension: Yes (controlled with med) Hx Internal Defibrillator: No Hx Pacemaker: No Hx Cardiac Catheterization: Yes ([facility] 2018) Hx Cardiac Surgery/Stents/Etc.: No Hx Stress Test: Yes (12/05) Hx Pain in Legs when Walking/Leg Cramps: Yes (right hip pain) Respiratory Chronic Cough: No HX of Shortness of Breath: No (unable to walk stairs d/t hip/denies sob with exertion) Hoarseness: No Hx Chronic Obstructive Pulmonary Disease (COPD): No (double lung transplant/due to environmental exposures) Hx Asthma: No Hx Emphysema: No Hx Sleep Apnea: No CPAP: No Hx Respiratory Tract Infection/Cold (presently): No Do You Snore Loudly (louder than talking or can be heard): No Do You Often Feel Tired/ Fatigued/ Sleepy Dring Daytime?: No Has Anyone Observed You Stop Breathing During Sleep?: No Result (for STOP score): Negative Hx Smoking: Yes (quit 10 yrs ago/1ppd for 25 yrs) Smoking Status: Former smoker Gastrointestinal Controlled With Meds: Yes Hx Gastrointestinal Disorders: No Hx Gastrointestinal Bleed: No Hx Ulcer: No Hx Hiatal Hernia: No Difficulty Chewing/Swallowing: No Special diet followed at home: No Hx Unplanned Weight Loss of 20#: No HX Unplanned Weight Gain of 20#: No Neurological Hx Seizures: No HX Syncope/Blackout Spells/Unconsciousness: No Hx Transient Ischemic Attacks (TIA): No Hx Multiple Sclerosis: No Hx Parkinson's Disease: No Hx Head/Neck Injury: No Hx Headaches: Yes (occ) Hx Back Injury/Pain: Yes (back injury in the past/back surgery/denies pain) Recent Onset of Speech Difficulty: No Restless Legs: No Does patient have nerve stimulator: No Blood Disorder Hx Leukemia: No Bleeding Tendencies: No Hx Deep Vein Thrombosis: No Hx High Cholesterol: Yes (on med) Blood Transmitted Disease: No Hx Hepatitis: No Hx Cirrhosis: No Hx Anemia: No Hx Blood Disorders: No Reproduction : No Is Patient Lactating: No Hx Hysterectomy: No Hx Tubal Ligation: No Are You Post Menopause: No Genitourinary Hx Renal Disease: No Hx Dialysis: No Musculoskeletal Hx Arthritis: Yes Hx Rheumatoid Arthritis: No Hx Gout: No Recent Onset of an Orthopedic Problem: No Endocrine Hx Diabetes: No Insulin: No Thyroid Disease: No Hx Steroid Therapy: Yes (ON DAILY PREDNISONE) Psycho/Social Hx Substance Use: No Hx Alcohol Use: No Hx Anxiety: No Hx Depression: No Mental Illness: No Hx Dementia: No Miscellaneous Hx Cancer: No Recent Exposure to Contagious Disease: No Hx of C-Diff: No Any Loose Teeth: No (UPPER PARTIAL) Allergies fluticasone furoate (From Breo Ellipta) Allergy (Severe, Verified 08/06/24 11:52) Other made patient breathe hard and high pulse vilanterol (From Breo Ellipta) Allergy (Severe, Verified 08/06/24 11:52) Other made patient breathe hard and high pulse codeine Allergy (Mild, Verified 08/06/24 11:52) Hives Maternal: Family History Mother Heart disease Lung disease Sister Lung disease Brother Lung disease Father CAD (coronary artery disease) No pertinent history Discharge Is Pt Admitted From a Longterm, or a Long-Term: No After D/C, Where Do you Plan to Go: Return Home From the [facility] History Number of Risk Factors: 2 Vital Signs Vital Signs Vital Signs: 08/09/24 08:02 08/09/24 08:02 Temperature 97.9 F Temperature Source Temporal Pulse Rate 77 Respiratory Rate 16 Respiratory Pattern Normal Blood Pressure 135/84 H Blood Pressure Mean 101 Blood Pressure Source Monitor Blood Pressure Position Sitting Blood Pressure Location Left Arm Pulse Ox 99 Oxygen Delivery Method Room Air Weight Weight: 210 lb 5.136 oz Body Mass Index (BMI) 28.5 Physical Exam Const alert, oriented x3 and no apparent distress General Appearance: cooperative, comfortable and well developed GI GI Narrative: Reducible umbilical hernia measuring approximately 2 cm in diameter, nondistended, soft, nontender to palpation x 4 quadrants Assessment & Plan Assessment/Plan (1) Encounter for screening for malignant neoplasm of colon: PLAN: Patient 64-year-old male, history of bilateral lung transplant, who presents for update screening colonoscopy after his last screening colonoscopy July 2021. He denies any interval health issues. He reports that he overall completed a bowel prep for today's procedure without issue. However, he does note that there are some flecks as part of his output. I discussed with him that we will proceed to the endoscopy suite for planned procedure, but if his prep is felt to be an adequate to identify polyps at a size threshold of 5 mm then we would likely have to abort the procedure and require short-term follow-up. Patient and his expressed understanding. Will now proceed to the endoscopy suite as planned. Surgery Risks - Colonoscopy Risks Include but are not Limited To: Risks include but are not limited to: Bleeding, perforation requiring further surgery, inability to complete colonoscopy requiring barium enema.
[2024-08-09 09:30] LABS: Bedside Glucose 148 mg/dL (74-106)
--- NOTE | 2024-08-09 09:37 | OP.CCLET_ITS ---
08/09/2024 Mary Loja [address] [place] [address] Re : Colonoscopy procedure for Wilbur Martines Dear Dr. Loja This procedure was performed on July. My impressions and recommendations are as follows: Impressions : - Anal papilla(e) were hypertrophied. No specimens collected. - The examination was otherwise normal. Recommendations : - Discharge patient to home (via wheelchair). - Resume previous diet today. - Continue present medications. - Repeat colonoscopy in 3 years for screening purposes. - Telephone my office for study results in 1 week. My findings are described in the full procedure note, which is enclosed. If I can be of further assistance, please feel free to contact me at Doctor phone number(s): , Work: . Sincerely, Navneet Duenas MD 08/09/2024 9:36:40 AM This report has been signed electronically.
--- NOTE | 2024-08-09 09:37 | OP.COLON_ITS ---
Patient Name: Wilbur Martines Procedure Date: 08/09/2024 8:56 AM Date of : 1960 Age: 64 Procedure: Colonoscopy Indications: Screening for colorectal malignant neoplasm, transplant patient on immunosuppressants Providers: Navneet Duenas MD Referring MD: Mary Loja Medicines: See the Anesthesia note for documentation of the administered medications Patient Profile: Last Colonoscopy: 3 years ago. Complications: No immediate complications. Estimated blood loss: None. Procedure: Pre-Anesthesia Assessment: - The heart rate, respiratory rate, oxygen saturations, blood pressure, adequacy of pulmonary ventilation, and response to care were monitored throughout the procedure. After I obtained informed consent, the scope was passed under direct vision. Throughout the procedure, the patient's blood pressure, pulse, and oxygen saturations were monitored continuously. The Colonoscope was introduced through the anus and advanced to the cecum, identified by appendiceal orifice and ileocecal valve. The colonoscopy was performed without difficulty. The patient tolerated the procedure well. The quality of the bowel preparation was adequate to identify polyps greater than 5 mm in size. Scope In: 9:08:44 AM Scope Withdrawal Time 0 hours 14 minutes 35 seconds Scope Out: 9:28:36 AM Total Procedure Duration Time 0 hours 19 minutes 52 seconds Findings: The perianal and digital rectal examinations were normal. Anal papilla(e) were hypertrophied. No biopsies or other specimens were collected for this exam. Estimated blood loss: none. The exam was otherwise without abnormality. Impression: - Anal papilla(e) were hypertrophied. No specimens collected. - The examination was otherwise normal. Recommendation: - Discharge patient to home (via wheelchair). - Resume previous diet today. - Continue present medications. - Repeat colonoscopy in 3 years for screening purposes. - Telephone my office for study results in 1 week. Procedure Code(s): --- Professional --- G0121, Colorectal cancer screening; colonoscopy on individual not meeting criteria for high risk Diagnosis Code(s): --- Professional --- Z12.11, Encounter for screening for malignant neoplasm of colon K62.89, Other specified diseases of anus and rectum CPT copyright 2021 [employer]. All rights reserved. The codes documented in this report are preliminary and upon artillery officer review may be revised to meet current compliance requirements. Navneet Duenas MD 08/09/2024 9:36:40 AM This report has been signed electronically. Number of Addenda: 0 Note Initiated On: 08/09/2024 8:56 AM
--- NOTE | 2024-08-09 09:44 | PCM.POST.ANE ---
Anesthesia: Postop Eval I Current Vital Signs Temperature: 97.4 F Pulse Rate: 76 Blood Pressure: 106/81 Respiratory Rate: 16 Pulse Ox: 98 Oxygen Delivery Method: Room Air Assessment Airway patent: Yes Spontaneous unlabored respirations: Yes Mental status: Awake nausea: No Vomiting: No Anesthesia Complication: No Fluid Hydration Crystalloid volume administer (ml): 60 Total IV fluid infused: 60 Progress Note Anesthesia document: Postop Eval 1 completed: Yes
--- NOTE | 2024-08-09 11:11 | PCM.POSTANE2 ---
Anesthesia Postop Eval I Sum Postop Eval Completion status Anesthesia document: Postop Eval 1 completed: Yes Anesthesia Postop Eval I Summary Anesthesia Postop Eval I Summary: Anesthesia Postop Eval I: Assessment Summary Airway patent Yes 08/09/24 09:45 [email or web address] Spontaneous unlabored Yes 08/09/24 09:45 [email or web address] respirations Mental status Awake 08/09/24 09:45 [email or web address] nausea No 08/09/24 09:45 [email or web address] Vomiting No 08/09/24 09:45 [email or web address] Anesthesia Postop Eval I: Fluid Summary Crystalloid volume administer 60 08/09/24 09:45 [email or web address] (ml) Colloids volume administered ( ml) Blood Product volume administered (ml) Total IV fluid infused 60 08/09/24 09:45 [email or web address] Anesthesia Postop Eval I: Summary Notes Anesthesia Complication No 08/09/24 09:45 [email or web address] Anesthesia Complication Comment: Post-operative progress note Anesthesia: Postop Eval II Evaluation Mental status: Awake Pain Level: 0 nausea: No Vomiting: No
== END 2024-08-09 10:15 | disposition home or self-care (01) ==
LOC: EN 07:36 → AC 07:39
PROVIDERS: PCP Family Medicine; Referring Provider Family Medicine; Visit Provider Surgery
PROC: 0DJD8ZZ Inspection of Lower Intestinal Tract, Via Natural or Artificial Opening Endoscopic (ICD-10-PCS; CPT 45378; principal; 2024-08-09 08:25)
DX: Z12.11 Encounter for screening for malignant neoplasm of colon (principal); Z94.2 Lung transplant status; J43.9 Emphysema, unspecified; E11.9 Type 2 diabetes mellitus without complications; I25.10 Atherosclerotic heart disease of native coronary artery without angina pectoris; Z79.82 Long term (current) use of aspirin; Z87.891 Personal history of nicotine dependence; I10 Essential (primary) hypertension; Z79.84 Long term (current) use of oral hypoglycemic drugs; E78.5 Hyperlipidemia, unspecified; Z79.899 Other long term (current) drug therapy; Z79.52 Long term (current) use of systemic steroids; K62.89 Other specified diseases of anus and rectum
CPT/HCPCS: G0121; 82962; A4216; J2405

== ENCOUNTER → 2025-07-01 | Outpatient (CLI) | payer MEDICARE, MEDICAID, SELFPAY ==
[2025-07-01 16:32] LABS: AST(SGOT) 18 U/L (<=37); Alanine Aminotransfer ALT/SGPT 19 U/L (<=46); Albumin, Serum 4.4 g/dL (3.4-4.8); Alkaline Phosphatase 72 U/L (40-129); Anion Gap 14 (5-15); BUN 16 mg/dL (4-19); BUN/Creat Ratio 11.5 RATIO (10-20); Calcium,Total 9.6 mg/dL (7.6-11.0); Carbon Dioxide 18.8 mmol/L (21.0-32.0); Chloride 103 mmol/L (98-108); Globulin 2.8 g/dL (2.2-4.2); Glucose 165 mg/dL (70-99); Potassium 4.1 mmol/L (3.3-5.1)
[2025-07-01 16:51] LABS: Creatinine, Urine (random) 88.40 mg/dL (39.00-259.00); Microalbumin,Random Urine 114.0 mg/L (<20 mg/L)
== END | disposition home or self-care (01) ==
LOC: BFHLAB 11:31
PROVIDERS: PCP Family Medicine; Visit Provider Family Medicine
DX: E11.9 Type 2 diabetes mellitus without complications (principal); Z51.81 Encounter for therapeutic drug level monitoring
CPT/HCPCS: 36415; 80053; 82043; 82570